=== PATIENT | female | born 1980 | race Caucasian/White ===

== ENCOUNTER → 2018-06-19 13:37 | Outpatient (REF) | payer MEDICAID, SELFPAY ==
[2018-06-23 14:07] LABS: Chlamydia Result Negative; GC Result Negative; Specimen Description VAGINAL
== END ==
LOC: LBN 13:37
PROVIDERS: PCP Family Medicine; Visit Provider Nurse Practitioner Family
DX: N76.0 Acute vaginitis (principal); Z11.3 Encounter for screening for infections with a predominantly sexual mode of transmission
CPT/HCPCS: 87491; 87591; 87480; 87510; 87660

== ENCOUNTER 2018-09-03 13:47 | Outpatient (REF) | payer MEDICAID, SELFPAY ==
[2018-09-04 13:56] LABS: Chlamydia Result Negative; Specimen Description URINE
[2018-09-04 18:19] LABS: GC Result Negative; Specimen Description URINE
== END 2018-09-03 14:07 ==
LOC: LBN 13:47
PROVIDERS: PCP Family Medicine
DX: N89.8 Other specified noninflammatory disorders of vagina (principal); Z11.3 Encounter for screening for infections with a predominantly sexual mode of transmission
CPT/HCPCS: 87491; 87591; 87480; 87510; 87660

== ENCOUNTER 2018-11-16 22:11 | Emergency (ER) | payer MEDICAID, SELFPAY ==
[2018-11-16 22:17] VITALS: BP 129/89; PULSE 77; RESP 18; TEMP 36.8; O2SAT 96
--- NOTE | 2018-11-16 22:33 | DI.RAD_ITS ---
SYMPTOMS/DIAGNOSIS: COUGH PA AND LATERAL CHEST: Comparison is made with March,. The heart size is at the upper limits of normal. The lungs are well inflated and clear. No infiltrate or effusion is seen. IMPRESSION: No acute abnormality.
--- NOTE | 2018-11-16 22:38 | ED.GENADUL_ITS ---
Discharge Plan Disposition Patient Disposition: HOME Condition: Stable Discharge Details Chief Complaint: RespSymp Clinical Impression: Cough Primary Care Provider: Debby Puri ED Provider: Raúl Caldwell Home Meds and New Rx's Prescriptions: New doxycycline hyclate 100 mg tablet 100 mg PO BID Qty: 14 RF: 0 Continued oxybutynin chloride 5 mg tablet extended release 24hr 5 mg PO DAILY Qty: 30 RF: 2 benzonatate [Tessalon Perles] 100 mg capsule 100 mg PO BID PRN (Reason: cough) Qty: 30 RF: 0 prednisone 20 mg tablet 40 mg PO DAILY 5 Days Qty: 10 RF: 0 benzonatate 100 mg capsule 100 - 200 mg PO TID PRN (Reason: cough) Qty: 60 RF: 0 Ventolin HFA 8 GM HFA aerosol inhaler 1 - 2 puff Inhalation QID PRNQty: 1 RF: 2 acetaminophen 500 MG tablet 1,000 mg PO QID PRNQty: 100 RF: 0 ibuprofen 600 MG tablet 400 - 600 mg PO Q6-Q8H MDD 3200 PRNQty: 40 RF: 0 topiramate [Topamax] 25 MG capsule, sprinkle 50 mg PO BID Qty: 360 RF: 3 lamotrigine 150 MG tablet 150 mg PO BID Qty: 60 RF: 5 fluoxetine 40 mg capsule 40 mg PO DAILY Qty: 90 RF: 2 bupropion HCl 150 mg tablet extended release 24 hr 150 mg PO DAILY Qty: 90 RF: 4 guanfacine 1 mg tablet 0.5 mg PO BID Qty: 30 RF: 6 Discharge Instructions Instructions: Acute Cough (ED) Additional Instructions: If cough continues follow up with your primary care provider within 1-2 weeks If you have worsening shortness of breath, severe weakness or new symptoms such as abdominal pain return to the emergency department Medical Decision Making 38 yo female with hx of asthma comes in with cough for 2 weeks and runny nose, no fevers. Denies chest pain or recent travel. She is speaking in full sentences and has clear lungs on exam so unlikely pna but will obtain xray to eval for infiltrate. Cough doesn't sound typical of pertussis. Does have runny nose so could have post nasal drip. suspect uri that is likely causing her symptoms pt remains HD stable. I am questioning atelectasis vs small rll infiltrate. will tx with doxycycline as she is stable for outpatient management, advised f/u with pcp if this continues as this still could be viral and return precautions given Differential Diagnosis uri, post nasal drip, pna HPI General Mode of arrival: ambulatory . Date/Time Provider Initiated Documentation: 11/16/18 22:23 . Limitations to Documentation: no limitations . Information obtained by: patient . History of Present Illness 38 year old F presents to the emergency department with the chief complaint of cough, described as moderate, with intensity rated at 4. Patient reports no radiation. Patient started experiencing this week(s) (2) and it has been intermittent. No relieving factors improve symptom(s), No exacerbating factors reported . Patient notes other (runny nose). Patient did receive the following treatments prior to arrival, none Related Data Home Medications Medication Instructions Recorded Confirmed Ventolin HFA 1 - 2 puff INHALATION QID PRN #1 04/11/16 11/16/18 inhaler acetaminophen 1,000 mg PO QID PRN #100 tab-cap 06/27/17 11/16/18 ibuprofen 400 - 600 mg PO Q6-Q8H PRN #40 03/10/18 11/16/18 tab-cap MDD 3200 topiramate [Topamax] 50 mg PO BID #360 cap.sprink 05/20/18 11/16/18 lamotrigine 150 mg PO BID #60 tab-cap 05/30/18 11/16/18 fluoxetine 40 mg capsule 40 mg PO DAILY #90 cap 07/25/18 11/16/18 bupropion HCl XL 150 mg 24 hr 150 mg PO DAILY #90 tab-cap 10/13/18 11/16/18 tablet, extended release guanfacine 1 mg tablet 0.5 mg PO BID #30 tab-cap 10/13/18 11/16/18 benzonatate 100 mg capsule 100 mg PO BID PRN #30 cap 10/15/18 11/16/18 oxybutynin chloride ER 5 mg 5 mg PO DAILY #30 tab 10/15/18 11/16/18 tablet,extended release 24 hr benzonatate 100 mg capsule 100 - 200 mg PO TID PRN #60 cap 11/13/18 11/16/18 prednisone 20 mg tablet 40 mg PO DAILY 5 Days #10 tab 11/13/18 11/16/18 doxycycline hyclate 100 mg PO BID #14 tab 11/16/18 Previous Rx's Medication Instructions Recorded topiramate [Topamax] 50 mg PO BID #360 cap.sprink 05/20/18 lamotrigine 150 mg PO BID #60 tab-cap 05/30/18 fluoxetine 40 mg capsule 40 mg PO DAILY #90 cap 07/25/18 bupropion HCl XL 150 mg 24 hr 150 mg PO DAILY #90 tab-cap 10/13/18 tablet, extended release guanfacine 1 mg tablet 0.5 mg PO BID #30 tab-cap 10/13/18 benzonatate 100 mg capsule 100 mg PO BID PRN #30 cap 10/15/18 oxybutynin chloride ER 5 mg 5 mg PO DAILY #30 tab 10/15/18 tablet,extended release 24 hr benzonatate 100 mg capsule 100 - 200 mg PO TID PRN #60 cap 11/13/18 prednisone 20 mg tablet 40 mg PO DAILY 5 Days #10 tab 11/13/18 doxycycline hyclate 100 mg PO BID #14 tab 11/16/18 Allergies Allergy/AdvReac Type Severity Reaction Status Date / Time No Known Drug Allergies Allergy Verified 11/16/18 22:23 General Stated Complaint: RespSymp JULIANN: 4 Review of Systems Review of Systems All systems reviewed & are unremarkable except as noted in HPI and below Constitutional Denies weakness Cardiovascular Denies chest pain Gastrointestinal Denies abdominal pain, Denies nausea and Denies vomiting Musculoskeletal Denies joint swelling Integumentary/Breasts Denies rash Neurologic Denies weakness Endocrine Denies heat intolerance [facility] Medical History Endometriosis Menorrhagia Mental disorder Surgical History Appendectomy Cholecystectomy Diagnostic Laproscopy (10/21/14) Ligation of fallopian tube Open Carpal Tunnel release Trigger Finger release Vaginal hysterectomy (05/12/15) Family History Mother Depression Emphysema lung Father Depression Heart disease Brother No problems noted. Grandfather No problems noted. Grandfather Parkinson's disease Grandmother No problems noted. Grandmother Heart disease Stroke Son No problems noted. Son Depression Son Heart disease Daughter Depression Maternal Uncle Diabetes Social History Smoking/Tobacco Use Status: Never Exam Const General: no acute distress Orientation: alert HENMT Head: normal to inspection Ears: external ears normal General nose exam: external nose normal Mouth: moist mucous membranes Eyes General: appearance normal, both eyes and all related structures Neck Neck: normal visual inspection Resp Effort & Inspection: normal respiratory effort and able to speak in complete sentences Cardio Rate: regular rate Skin General skin exam: no rashes or lesions noted Neuro General: alert and oriented x3 Extrem General: normal to inspection Psych Mental Status: mental status grossly normal Course Vital Signs Temperature 36.8 C 11/16/18 22:17 Pulse 77 11/16/18 22:17 Respiratory Rate 18 11/16/18 22:17 Blood Pressure 129/89 11/16/18 22:17 Pulse Oximetry 96 11/16/18 22:17 Temperature 36.8 C 11/16/18 22:17 Temperature Source Temporal Artery Scan 11/16/18 22:17 Pulse 77 11/16/18 22:17 Respiratory Rate 18 11/16/18 22:17 Respiratory Effort 11/16/18 22:21 Respiratory Depth Normal 11/16/18 22:21 Blood Pressure 129/89 11/16/18 22:17 Pulse Oximetry 96 11/16/18 22:17 Oxygen Delivery Method Room Air 11/16/18 22:17 Oxygen Flow Rate 0 11/16/18 22:17 Pain Level 7 11/16/18 22:17
--- NOTE | 2018-11-16 23:03 | DI.VRAD_ITS ---
EXAM: XR Chest, 2 Views EXAM DATE/TIME: 11/16/2018 10:47 PM CLINICAL HISTORY: 38 years old, female; Signs and symptoms; Cough TECHNIQUE: XR of the chest, 2 views. COMPARISON: CR CHEST 2 VIEWS PA,LAT 03/21/2018 11:53 PM FINDINGS: Lungs: Unremarkable. No consolidation. Pleural space: Unremarkable. No evidence of pneumothorax. Heart/Mediastinum: Unremarkable. Heart size within normal limits for technique. Bones/joints: Unremarkable. IMPRESSION: No acute findings. Dictated and Authenticated by: Corey Irvin MD. Ordering:FINESSE Olsen MD
[2018-11-16] MEDS: Doxycycline Hyclate 100 MG CAP PO (23:06)
== END 2018-11-16 23:12 | disposition home or self-care (01) ==
PROVIDERS: Emergency Provider Emergency Medicine; PCP Family Medicine
DX: R05 Cough (principal)
CPT/HCPCS: 99283; 71046

== ENCOUNTER 2018-11-21 10:48 | Outpatient (REF) | payer MEDICAID, SELFPAY | END 2018-11-21 11:08 | LOC: LBN 10:48 | PROVIDERS: PCP Family Medicine; Visit Provider Nurse Practitioner Family | DX: R09.89 Other specified symptoms and signs involving the circulatory and respiratory systems (principal) | CPT/HCPCS: 87449 ==

== ENCOUNTER 2018-12-04 14:45 | Outpatient (REF) | payer MEDICAID, SELFPAY ==
[2018-12-05 14:39] LABS: Chlamydia Result Negative; GC Result Negative; Specimen Description CERVIX
== END 2018-12-04 15:05 ==
LOC: LBN 14:45
PROVIDERS: PCP Family Medicine; Visit Provider Nurse Practitioner Women's Health
DX: Z11.3 Encounter for screening for infections with a predominantly sexual mode of transmission (principal)
CPT/HCPCS: 87491; 87591

== ENCOUNTER 2018-12-09 01:32 | Outpatient (CLI) | payer MEDICAID, SELFPAY ==
--- NOTE | 2018-12-09 08:00 | DI.US_ITS ---
SYMPTOM/DIAGNOSIS: LT PELVIC PAIN, S/P HYST, R10.2 PELVIC ULTRASOUND: Transabdominal and transvaginal examination was performed. There are no priors for comparison. The patient is status post hysterectomy. The right ovary measures 2.5 by 1.9 by 1.6 cm. Small follicular cysts are present. There is normal blood flow. No evidence of torsion. The left ovary measures 3 by 2.3 by 1.5 cm. There is normal blood flow. No evidence of torsion. There is a 1.8 cm. simple cyst present. The kidneys show no evidence of hydronephrosis. No free pelvic fluid is identified. IMPRESSION: Status post hysterectomy. Otherwise unremarkable pelvic ultrasound.
== END 2018-12-09 01:52 ==
PROVIDERS: PCP Family Medicine; Visit Provider Nurse Practitioner Women's Health
DX: R10.2 Pelvic and perineal pain (principal); Z90.710 Acquired absence of both cervix and uterus
CPT/HCPCS: 76830; 76856

== ENCOUNTER 2019-02-13 12:47 | Emergency (ER) | payer MEDICAID, SELFPAY ==
[2019-02-13 12:52] VITALS: BP 128/76; PULSE 91; RESP 16; TEMP 36.8; O2SAT 97
[2019-02-13] MEDS: Ondansetron O.D.T. 4 MG TABEF PO (13:10)
[2019-02-13] MEDS: Normal Saline 1,000 ML 1000 ML IV ×2 (13:30→13:58)
--- NOTE | 2019-02-13 13:43 | ED.GENADUL_ITS ---
Discharge Plan Disposition Patient Disposition: HOME Condition: Good Discharge Details Chief Complaint: Nausea/Vomit/Diar Clinical Impression: Gastroenteritis, Vomiting Primary Care Provider: Debby Puri ED Provider: Fernando Carpenter Home Meds and New Rx's Prescriptions: New ondansetron HCl [Zofran] 4 mg tablet 4 mg PO TID PRN (Reason: nausea and vomiting) 5 Days Qty: 10 RF: 0 No Action baclofen 5 mg tablet 5 mg PO QHS PRNRF: 0 oxybutynin chloride 5 mg tablet extended release 24hr 5 mg PO DAILY Qty: 30 RF: 2 meloxicam 15 mg tablet 15 mg PO DAILY Qty: 30 RF: 2 benzonatate 100 mg capsule 100 - 200 mg PO TID PRN (Reason: cough) Qty: 60 RF: 0 ondansetron HCl 8 mg tablet 8 mg PO TID PRN (Reason: nausea and vomiting) Qty: 20 RF: 0 acetaminophen 500 MG tablet 1,000 mg PO QID PRNQty: 100 RF: 0 ibuprofen 600 MG tablet 400 - 600 mg PO Q6-Q8H MDD 3200 PRNQty: 40 RF: 0 Hold Instructions: None topiramate [Topamax] 25 MG capsule, sprinkle 50 mg PO BID Qty: 360 RF: 3 bupropion HCl 150 mg tablet extended release 24 hr 150 mg PO DAILY Qty: 90 RF: 4 guanfacine 1 mg tablet 0.5 mg PO BID Qty: 30 RF: 6 albuterol sulfate [Ventolin HFA] 90 mcg/actuation HFA aerosol inhaler 1 - 2 puff Inhalation QID PRN (Reason: bronchospasm) Qty: 1 RF: 4 lamotrigine 150 mg tablet 150 mg PO BID Qty: 60 RF: 5 fluoxetine 20 mg capsule 60 mg PO DAILY Qty: 90 RF: 3 Discharge Instructions Instructions: Gastroenteritis (ED) Additional Instructions: Please drink 10-12 cups of water per day. Please take the Zofran as needed for nausea. If you notice any worsening of your symptoms, or any new symptoms such as vomiting, diarrhea, fever, chills, shortness of breath, chest pain, numbness, weakness, or fainting , please return immediately to the emergency department for reevaluation. Please follow up with your primary care provider as soon as possible for reassessment and reevaluation. As always, it was a pleasure participating in your medical care today. Referrals: Debby Puri MD [Primary Care Provider] - Medical Decision Making This is a pleasant 38-year-old female with a past medical history of appendectomy, cholecystectomy, and hysterectomy. Patient presents for less than 12 hours of nausea, vomiting and diarrhea. The patient states that her had similar symptoms and is now starting to get better. Patient denies any red flags of recent foreign travel, antibiotics, IV or illicit drug use, recent surgeries, or significant abdominal pain. Physical exam demonstrates a relatively nontender abdomen, no signs of an acute abdominal surgical pathology clinically. Vital signs are notably stable and reassuring. Patient's mucous membranes are notably dry. We did discuss with the patient oral rehydration and oral Zofran, the patient is specifically requesting an IV for IV hydration. IV was placed, 2 L of normal saline were given, laboratory workup is notably benign. Patient is feeling much better. Patient has been given Zofran and tolerates p.o. well. We will discharge her home with a prescription for Zofran. Signs and symptoms at this time are clinically consistent with a most likely viral gastroenteritis. Discussed red flags which to return the patient understands as well as the importance of oral intake. I have extensively reviewed the treatment plan and discharge instructions with the patient. I have addressed all patient concerns at this time. The patient was made aware of what symptoms to monitor for that would warrant a return to the emergency department. Discussed the plan with the patient, they demonstrate verbal understanding and agreement with our assessment and plan at this time. HPI General Date/Time Provider Initiated Documentation: 02/13/19 12:58 . HPI Narrative: This is a 38-year-old female with past medical history of endometriosis, appendectomy, cholecystectomy, hysterectomy who presents today for 12 hours of nausea vomiting and diarrhea. Symptoms began at 10 PM last night, last episode of vomiting was at 1 AM. Vomiting is nonbilious, no hematochezia, melena, acholic stool, or hematemesis. Last bowel movement was a few hours ago. Patient does admit to mild cramps, but denies any significant abdominal pain. She has been able to drink small amounts, but this is limited secondary to nausea. Her has identical symptoms at home as well. Patient is on disability and has no sick coworkers. Patient denies any other complaints at this time. No other modifying factors. She denies any recent alcohol use. She denies a foreign travel or recent antibiotic use. Related Data Home Medications Medication Instructions Recorded Confirmed acetaminophen 1,000 mg PO QID PRN #100 tab-cap 06/27/17 02/13/19 ibuprofen 400 - 600 mg PO Q6-Q8H PRN #40 03/10/18 02/13/19 tab-cap MDD 3200 topiramate [Topamax] 50 mg PO BID #360 cap.sprink 05/20/18 02/13/19 bupropion HCl XL 150 mg 24 hr 150 mg PO DAILY #90 tab-cap 10/13/18 02/13/19 tablet, extended release guanfacine 1 mg tablet 0.5 mg PO BID #30 tab-cap 10/13/18 02/13/19 benzonatate 100 mg capsule 100 - 200 mg PO TID PRN #60 cap 11/13/18 02/13/19 albuterol sulfate HFA 90 1 - 2 puff INHALATION QID PRN #1 11/21/18 02/13/19 mcg/actuation aerosol inhaler inhaler ondansetron HCl 8 mg tablet 8 mg PO TID PRN #20 tab 11/21/18 02/13/19 lamotrigine 150 mg tablet 150 mg PO BID #60 tab-cap 12/04/18 02/13/19 meloxicam 15 mg tablet 15 mg PO DAILY #30 tab 12/18/18 02/13/19 baclofen 5 mg tablet 5 mg PO QHS PRN tab 01/13/19 02/13/19 fluoxetine 20 mg capsule 60 mg PO DAILY #90 cap 01/13/19 02/13/19 oxybutynin chloride ER 5 mg 5 mg PO DAILY #30 tab 01/13/19 02/13/19 tablet,extended release 24 hr ondansetron HCl [Zofran] 4 mg PO TID PRN 5 Days #10 tab 02/13/19 Previous Rx's Medication Instructions Recorded topiramate [Topamax] 50 mg PO BID #360 cap.sprink 05/20/18 bupropion HCl XL 150 mg 24 hr 150 mg PO DAILY #90 tab-cap 10/13/18 tablet, extended release guanfacine 1 mg tablet 0.5 mg PO BID #30 tab-cap 10/13/18 benzonatate 100 mg capsule 100 - 200 mg PO TID PRN #60 cap 11/13/18 albuterol sulfate HFA 90 1 - 2 puff INHALATION QID PRN #1 11/21/18 mcg/actuation aerosol inhaler inhaler ondansetron HCl 8 mg tablet 8 mg PO TID PRN #20 tab 11/21/18 lamotrigine 150 mg tablet 150 mg PO BID #60 tab-cap 12/04/18 meloxicam 15 mg tablet 15 mg PO DAILY #30 tab 12/18/18 fluoxetine 20 mg capsule 60 mg PO DAILY #90 cap 01/13/19 oxybutynin chloride ER 5 mg 5 mg PO DAILY #30 tab 01/13/19 tablet,extended release 24 hr ondansetron HCl [Zofran] 4 mg PO TID PRN 5 Days #10 tab 02/13/19 Allergies Allergy/AdvReac Type Severity Reaction Status Date / Time No Known Drug Allergies Allergy Verified 02/13/19 12:58 General Stated Complaint: Nausea/Vomit/Diar JULIANN: 3 Review of Systems Review of Systems All systems reviewed & are unremarkable except as noted in HPI and below PFSH Social History Smoking/Tobacco Use Status: Never Alcohol Intake: never Drug use: Never Substance use type: does not use Do you feel safe at home: Yes Do you feel safe in your relationship?: Yes Female Reproductive History Menstrual control method: permanent sterilization (hysterectomy for endometriosis) History History 4 Para 4 Hx # Term Pregnancies Multiple births Hx # Pregnancies Ectopic pregnancies AB induced Hx Number of Living Children AB spontaneous Exam Narrative Exam Narrative: 1.Const: Well-nourished, Well-developed, appearing stated age 2.Eyes: PERRL, no conjunctival injection, and symmetrical lids. 3.ENT: Atraumatic external nose and ears. Notably dry MM. Neck: Symmetric, tr achea midline, No thyromegaly. 4.CVS: +S1/S2, No murmurs or gallops. Peripheral pulses 2+ and equal in all extremities. Brisk capillary refill in all extremities. 5.RESP: Unlabored respiratory effort. Clear to auscultation bilaterally. No wheezes rales or rhonchi 6.GI: Soft, Nontender/Nondistended, No hepatosplenomegaly. No guarding or rebound. No pain at McBurney's point, negative Chase sign, no signs of an acute abdomen. 7.MSK: Normocephalic/Atraumatic, Extremities w/o deformity or ttp No cyanosis or clubbing, Normal movement of all extremities 8.Skin: Warm, Dry. No rashes or lesions. 9.Neuro: reducing system operator II-XII grossly intact. Sensation grossly intact, no focal neurologic deficits. 10.Psych: (AAO) x3. Appropriate mood and affect Course Vital Signs Temperature 36.8 C 02/13/19 12:52 Pulse 91 H 02/13/19 12:52 Respiratory Rate 16 02/13/19 12:52 Blood Pressure 128/76 02/13/19 12:52 Pulse Oximetry 97 02/13/19 12:52 Temperature 36.8 C 02/13/19 12:52 Temperature Source Temporal Artery Scan 02/13/19 12:52 Pulse 91 H 02/13/19 12:52 Respiratory Rate 16 02/13/19 12:52 Respiratory Effort Non-Labored 02/13/19 12:56 Blood Pressure 128/76 02/13/19 12:52 Blood Pressure Position Sitting 02/13/19 12:52 Pulse Oximetry 97 02/13/19 12:52 Oxygen Delivery Method Room Air 02/13/19 12:52 Oxygen Flow Rate 0 02/13/19 12:52 Pain Level 5 02/13/19 12:52
[2019-02-13 13:46] LABS: Abs Immature Grans 0.02 k/cumm (0.0-0.09); Absolute Basophil Count 0.01 k/cumm (0.0-0.2); Absolute Eosinophil Count 0.19 k/cumm (0.0-0.7); Absolute Lymphocyte Count 1.22 k/cumm (1.2-3.4); Absolute Monocyte Count 0.28 k/cumm (0.11-0.7); Absolute Neutrophil Count 5.59 k/cumm (1.2-6.7); Basophils % 0.1; Eosinophils % 2.6; HCT 38.3 % (36.0-46.0); HGB 13.3 g/dL (12.0-15.5); Immature Grans % 0.3; Lymphocytes % 16.7; Mean Corp. HGB Concentration 34.7 g/dL (32.0-36.0); Mean Corpuscular Hemoglobin 30.2 pg (27.0-33.0); Mean Platelet Volume 9.3 fL (8.0-11.0); Monocytes % 3.8; Neutrophils % 76.5; Platelet Count 349 x1000/uL (130-400); White Blood Cell Count 7.31 k/cumm (4.4-10.8)
[2019-02-13 13:56] LABS: ALT 20 U/L (12-78); AST 18 U/L (15-37); Alkaline Phosphatase 117 U/L (46-116); Anion Gap 12.4 mmol/L (3-11); BUN 15 mg/dL (7-18); Bilirubin, Total 0.6 mg/dL (0.2-1.0); CO2 22.6 mmol/L (21.0-32.0); CREATININE 0.81 mg/dL (0.55-1.02); Calcium 8.4 mg/dL (8.5-10.1); Chloride 103 mmol/L (98-107); Glucose 78 mg/dL (70-100); Lipase 165 U/L (73-393); Potassium 3.6 mmol/L (3.5-5.1); Sodium 138 mmol/L (136-145); Total Protein 7.6 g/dL (6.4-8.2)
[2019-02-13 14:43] VITALS: BP 109/66; PULSE 82; RESP 18; TEMP 36.7; O2SAT 98
== END 2019-02-13 14:40 | disposition home or self-care (01) ==
PROVIDERS: Emergency Provider Student in an Organized Health Care Education/Training Program; PCP Family Medicine
DX: K52.9 Noninfective gastroenteritis and colitis, unspecified (principal)
CPT/HCPCS: 80053; 83690; 96360; 99283; 85025

== ENCOUNTER 2019-09-29 13:15 | Outpatient (CLI) | payer MEDICAID, SELFPAY ==
--- NOTE | 2019-09-29 12:08 | DI.RAD_ITS ---
EXAM: XR HEEL RT OS CALCIS INDICATION: PAIN IN RT HEEL, M79.671, RT FOOT PAIN. COMPARISON: No exams were available for comparison TECHNIQUE: 2D digital imaging was performed. FINDINGS: There is a small spur at the plantar surface of the calcaneus. Bones are normally mineralized. The joint spaces are well maintained. The soft tissues are unremarkable. IMPRESSION: Small plantar calcaneal spur.
== END 2019-09-29 13:35 ==
PROVIDERS: PCP Family Medicine; Visit Provider Podiatrist Foot & Ankle Surgery
DX: M79.671 Pain in right foot (principal); M77.31 Calcaneal spur, right foot
CPT/HCPCS: 73650

== ENCOUNTER 2019-11-12 00:17 | Outpatient (CLI) | payer MEDICAID, SELFPAY ==
--- NOTE | 2019-11-12 08:45 | DI.MRI_ITS ---
EXAM: MR LOWER JOINT RT WO CLINICAL HISTORY: PAIN IN RT FOOT/HEEL PAIN. TECHNIQUE: Multiplanar multisequence MRI was performed. COMPARISON: XR HEEL RT OS CALCIS from 09/29/2019 FINDINGS: Anterior ankle tendons: Unremarkable. Medial ankle tendons: Unremarkable. Peroneus brevis and longus tendons: Unremarkable. Achilles tendon: Unremarkable. Plantar fascia: Thickening and hyperintense signal within the plantar fascia at its attachment site o nto the calcaneus. Tibial fibular ligaments: Unremarkable. Talofibular and calcaneofibular ligaments: Unremarkable. Deltoid ligaments: Unremarkable. Bones: Subchondral cysts are seen at the posterior calcaneus. Nonspecific edema is seen in the media l cuboid. No findings to suggest an occult fracture or avascular necrosis. Mild hyperintense signal seen in the inferior calcaneus at the insertion site of the plantar fascia. Soft tissues: No focal fluid collection or soft tissue mass. Ankle joint: Small joint effusion otherwise unremarkable. IMPRESSION: Findings suggestive of plantar fasciitis.
== END 2019-11-12 00:37 ==
PROVIDERS: PCP Family Medicine; Visit Provider Podiatrist Foot & Ankle Surgery
DX: M79.671 Pain in right foot (principal); M25.471 Effusion, right ankle; M72.2 Plantar fascial fibromatosis
CPT/HCPCS: 73721

== ENCOUNTER 2020-01-26 11:18 | Outpatient (CLI) | payer MEDICAID, SELFPAY ==
[2020-01-26 12:49] LABS: ALT 22 U/L (14-59); AST 14 U/L (15-37); Albumin 4.4 g/dL (3.4-5.0); Alkaline Phosphatase 104 U/L (46-116); Anion Gap 9.9 mmol/L (3-11); BUN 16 mg/dL (7-18); Bilirubin, Total 0.4 mg/dL (0.2-1.0); CO2 26.1 mmol/L (21.0-32.0); CREATININE 0.87 mg/dL (0.55-1.02); Calcium 8.7 mg/dL (8.5-10.1); Chloride 104 mmol/L (98-107); Glucose 81 mg/dL (74-106); Potassium 4.5 mmol/L (3.5-5.1); Sodium 140 mmol/L (136-145); Total Protein 7.7 g/dL (6.4-8.2)
== END 2020-01-26 11:38 ==
PROVIDERS: PCP Family Medicine; Visit Provider Family Medicine
DX: F39 Unspecified mood [affective] disorder (principal)
CPT/HCPCS: 36415; 80053

== ENCOUNTER 2020-05-17 02:34 | Outpatient (CLI) | payer MEDICAID, SELFPAY ==
[2020-05-17 14:58] LABS: TSH 1.11 uIU/mL (0.36-3.74)
== END 2020-05-17 02:54 ==
PROVIDERS: PCP Family Medicine; Visit Provider Family Medicine
DX: G62.9 Polyneuropathy, unspecified (principal)
CPT/HCPCS: 36415; 84443

== ENCOUNTER 2020-07-29 01:44 | Outpatient (CLI) | payer MEDICAID, SELFPAY ==
[2020-07-30 18:28] LABS: COVID-19 RT-PCR Result NEGATIVE (Negative)
== END 2020-07-29 02:04 ==
PROVIDERS: PCP Family Medicine; Visit Provider Orthopaedic Surgery
DX: Z11.59 Encounter for screening for other viral diseases (principal); Z01.818 Encounter for other preprocedural examination
CPT/HCPCS: U0003

== ENCOUNTER 2020-08-01 08:04 | Day surgery (SDC) | payer MEDICAID, SELFPAY ==
[2020-08-01 07:16] VITALS: BP 116/67; PULSE 90; RESP 18; TEMP 36.5; O2SAT 97
[2020-08-01] MEDS: Lactated Ringers 1,000 ML 80 ML IV (08:37)
[2020-08-01] MEDS: ceFAZolin 2 GM/50 ML BAG IVPB (10:05)
--- NOTE | 2020-08-01 10:57 | PDOC.DSDIS_ITS ---
Discharge Plan Disposition Patient Disposition: HOME Condition: Good Discharge Details Attending Provider: Landry Vega Primary Care Provider: Debby Puri Home Meds and New Rx's Prescriptions: Continued oxybutynin chloride 10 mg tablet extended release 24hr 10 mg PO DAILY Qty: 30 RF: 4 albuterol sulfate [Ventolin HFA] 90 mcg/actuation HFA aerosol inhaler 1 - 2 puff Inhalation QID PRN (Reason: bronchospasm) Qty: 1 RF: 6 topiramate 50 mg tablet 50 mg PO BID Qty: 60 RF: 3 ondansetron HCl 8 mg tablet 8 mg PO TID PRN (Reason: nausea and vomiting) Qty: 20 RF: 0 trazodone 50 mg tablet 50 mg PO QHS Qty: 90 RF: 0 cyclobenzaprine 5 mg tablet 5 mg PO TID PRN (Reason: back pain) Qty: 60 RF: 1 fluoxetine 20 mg capsule 60 mg PO DAILY Qty: 90 RF: 12 lamotrigine 150 mg tablet 150 mg PO BID Qty: 60 RF: 6 guanfacine 1 mg tablet 0.5 mg PO BID Qty: 30 RF: 6 Discharge Instructions Additional Instructions: Elevate R hand above heart level as much as possible for next 48 hours. Wiggle fingers R hand 10 times/hour when awake to prevent swelling. Keep dressings and splint dry until return.(cover with plastic bag sealed with large rubber band below elbow to shower) Return to 's office in 2 weeks. Take ibuprofen or tylenol for mild pain. Take hydrocodone for breakthru pain, if needed. Use R hand as much as your discomfort allows. Referrals: Landry Vega MD [ [facility] STAFF PHYSICIAN] - (f/u in 2 weeks.) Equipment/Supplies: Splint Activity:: Activity as Tolerated Remove Dressings/Wound Care:: Do Not Remove Shower/Bathe:: Cover Diet:: As Tolerated Discharge Orders Discharge Orders: Discharge Order (Routine); Ordered 08/01/20 Ordered By: Landry Vega DS: Diagnosis Discharge Diagnosis (1) Carpal tunnel syndrome on right: Status: Acute
[2020-08-01 11:49] VITALS: BP 113/56; PULSE 89; RESP 20; TEMP 36.7; O2SAT 97
--- NOTE | 2020-08-01 14:21 | W.PM.OP ---
Date of service: 08/01/20 Time of Service: 10:00 Operative Note Operative Note DATE OF PROCEDURE: 08/01/20 PRE-OP DIAGNOSIS: Carpal tunnel syndrome right recurrent. POST-OP DIAGNOSIS: same PROCEDURE: Open carpal tunnel release right with external neural lysis of the median nerve. ANESTHESIA: regional PATHOLOGY: none sent COMPLICATIONS: None Patient was transported to: PACU Patient's condition: stable Indications: This is a 40-year-old white female who underwent an open carpal tunnel release in 2012. She said she received 1 year of relief of symptoms from the open carpal tunnel release. Her carpal tunnel syndrome symptoms have recurred and have gradually gotten worse. She has continued numbness in the thumb index and middle fingertips aggravated by activities. Repeat nerve conduction study shows that she had what was termed mild carpal tunnel syndrome on the right. It was felt that her repeat carpal tunnel symptoms were secondary to scarring around the nerve. External neural lysis of the median nerve with open carpal tunnel release is recommended to alleviate his symptoms. Risk complication procedure explained patient detail preop. Procedure Description: Patient was taken the operating room on 08/01/2020 where she is placed supine operative table. A IV regional anesthetic was administered to the right upper extremity. Once good anesthesia was obtained the right hand wrist and forearm were prepped and draped free in usual sterile fashion. An incision was made first utilizing the old scar on the radial base of the hyperthenar eminence. I extended the incision distal from the scar to beyond the distal edge of the volar carpal ligament. I carried the incision proximally and a zigzag fashion across the wrist crease. I kept the incision just ulnar to the palmaris longus tendon that was palpable. This was carried down to the forearm fascia. Carefully protecting the nerve I then continued the fascia releasing the release of the volar carpal ligament to the distal edge of the ligament. There was scarring around the nerve that caused some stenosis of the nerve and some mild bluish discoloration. Using Littler scissors I performed a an external neural lysis of the median nerve completely alleviate any scarring. There was not any excessive synovitis noted in the carpal tunnel. This point the wound was irrigated with saline solution. A median nerve block was performed using 0.5% Marcaine with epinephrine solution. The wound margins were infiltrated 0.5% Marcaine with epinephrine solution. Skin and subcu were approximated with interrupted 4 nylon sutures. Incision was dressed with Xeroform gauze sterile gauze 4 x 4's wrapped with a Kerlix bandage then wrapped with a 3 inch Rahul bandage. She was then placed in a commercial cock-up wrist splint. Patient is IV regional anesthesia was reversed without complication she was discharged to recovery room in good condition. Patient was later discharged home from day surgery unit when fully recovered from her IV regional anesthesia. She is given instructions to try to elevate her right hand above heart level as much possible next 48 hours. She is encouraged to wiggle her fingers 10 times an hour while awake to prevent swelling. She is to keep her dressings and splint dry and intact until she follows up in Dr. Vega's office in 2 weeks. She will take ibuprofen or Tylenol for mild pain. She is given a prescription for breakthrough pain of hydrocodone with APAP 03/20/2025 1 p.o. every 6 hours if needed.
== END 2020-08-01 12:07 | disposition home or self-care (01) ==
PROVIDERS: PCP Family Medicine; Visit Provider Orthopaedic Surgery
PROC: (CPT 64721; principal; 2020-08-01 09:30)
DX: G56.01 Carpal tunnel syndrome, right upper limb (principal)
CPT/HCPCS: 64721; J0690; J1100; J1885; J2001; J2405; L3908

== ENCOUNTER 2021-02-15 03:28 | Outpatient (CLI) | payer MEDICAID, SELFPAY ==
[2021-02-15 15:19] LABS: ALT 29 U/L (14-59); AST 15 U/L (15-37); Albumin 4.1 g/dL (3.4-5.0); Alkaline Phosphatase 148 U/L (46-116); Anion Gap 10.4 mmol/L (3-11); BUN 12 mg/dL (7-18); Bilirubin, Total 0.2 mg/dL (0.2-1.0); CO2 25.6 mmol/L (21.0-32.0); CREATININE 0.9 mg/dL (0.55-1.02); Calcium 8.8 mg/dL (8.5-10.1); Chloride 103 mmol/L (98-107); Glucose 92 mg/dL (74-106); Sodium 139 mmol/L (136-145); Total Protein 7.6 g/dL (6.4-8.2)
[2021-02-16 04:34] LABS: Vitamin D 25 Total 17.4 ng/mL (30-100)
== END 2021-02-15 03:29 | disposition home or self-care (01) ==
LOC: LBO 03:28
PROVIDERS: PCP Family Medicine; Visit Provider Family Medicine
DX: R51.9 Headache, unspecified (principal); E55.9 Vitamin D deficiency, unspecified; Z86.39 Personal history of other endocrine, nutritional and metabolic disease
CPT/HCPCS: 36415; 80053; 82306

== ENCOUNTER 2021-12-28 02:51 | Outpatient (CLI) | payer MEDICAID, SELFPAY ==
[2021-12-28 09:27] LABS: HCT 37.5 % (36.0-46.0); HGB 12.4 g/dL (11.2-15.7); MCH 29.2 pg (27.0-33.0); MCHC 33.1 % (32.0-36.0); MCV 88.2 fL (80-95); MPV 8.8 fL (8.0-11.0); Platelet Count 377 10^3/uL (130-400); RBC 4.25 10^6/uL (3.93-5.22); RDW 13.1 % (11.7-14.6); RDW-SD 42.5 fL; WBC 8.48 10^3/uL (4.4-10.8)
[2021-12-28 10:52] LABS: Vitamin D 25 Total 17.5 ng/mL (30-100)
[2021-12-28 10:56] LABS: ALT 29 U/L (14-59); AST 18 U/L (15-37); Alkaline Phosphatase 100 U/L (46-116); Anion Gap 9.5 mmol/L (3-11); BUN 20 mg/dL (7-18); Bilirubin, Total 0.4 mg/dL (0.2-1.0); CO2 26.5 mmol/L (21.0-32.0); CREATININE 0.8 mg/dL (0.55-1.02); Calcium 8.8 mg/dL (8.5-10.1); Calculated LDL 106 mg/dL (<100); Chloride 103 mmol/L (98-107); Cholesterol 181 mg/dL (<200); Glucose 82 mg/dL (74-106); HDL Cholesterol 59 mg/dL (40-60); Potassium 4.3 mmol/L (3.5-5.1); Sodium 139 mmol/L (136-145); TSH (W/Ref FT4) 0.78 uIU/mL (0.36-3.74); Total Protein 7.1 g/dL (6.4-8.2); Triglyceride 82 mg/dL (<150); Vitamin B12 261 pg/mL (193-986)
[2021-12-29 09:51] LABS: HIV-1/2 Ag & Ab Screen Negative (Negative)
[2021-12-29 09:56] LABS: Hepatitis C Ab w Rflx HCV PCR Negative (Negative)
== END 2021-12-28 02:52 | disposition home or self-care (01) ==
LOC: LBO 02:51
PROVIDERS: PCP Family Medicine; Visit Provider Family Medicine
DX: E55.9 Vitamin D deficiency, unspecified (principal); F95.9 Tic disorder, unspecified; Z11.59 Encounter for screening for other viral diseases; Z13.6 Encounter for screening for cardiovascular disorders; I10 Essential (primary) hypertension; Z11.4 Encounter for screening for human immunodeficiency virus [HIV]
CPT/HCPCS: 36415; 80053; 80061; 82306; 85027; 86803; 87389; 82607; 84443

== ENCOUNTER 2022-01-08 16:06 | Outpatient (REF) | payer MEDICAID, SELFPAY ==
[2022-01-10 12:58] LABS: Helicobacter pylori Ag, Feces Negative (Negative)
== END 2022-01-08 16:07 | disposition home or self-care (01) ==
LOC: LBN 16:06
PROVIDERS: PCP Family Medicine; Visit Provider Family Medicine
DX: E66.9 Obesity, unspecified (principal)
CPT/HCPCS: 87338

== ENCOUNTER 2022-02-05 02:12 | Outpatient (CLI) | payer MEDICAID, SELFPAY ==
--- NOTE | 2022-02-05 07:00 | DI.MAMMO_ITS ---
Exam(s) MAMMO SCREENING EXAM: MAMMO SCREENING CLINICAL HISTORY: screening,z12.39. TECHNIQUE: Bilateral full field digital CC and MLO mammographic images were obtained with 3D tomosyn thesis and utilizing computer aided detection (CAD). COMPARISON: None. This is a baseline mammogram on this 41-year-old patient. FINDINGS: No CAD designations There are no new spiculated masses nor malignant appearing microcalcification groups. There is no significant architectural distortion nor skin thickening-retraction. IMPRESSION: No radiographic evidence of malignancy. BI-RADS Category 1 - Negative Breast Density - Category B - Scattered areas of fibroglandular density Breast density Category C or D implies that the patient has dense breast tissue. Dense breast tissue can make it harder to find cancer on a mammogram. Dense breast tissue is also associated with an incr eased risk of breast cancer. This information about the result of the mammogram report was provided to the patient to raise their awareness. Use this report when you speak with the patient about their risks for breast cancer, which includes their family history. At that time, you may recommend additional screening tests (Ultrasoun d or MRI) as these tests may add significant information. A negative radiographic report should not delay biopsy if a dominant or clinically suspicious mass is present. Up to ten percent of cancers are not identified on mammography. A negative report may reinforce clinical impression. Adenosis and dense breasts may obscure an underlying neoplasm. False positive reports average 6 to 10%. Patient will receive a letter notifying them of these results.
== END 2022-02-05 02:32 ==
PROVIDERS: PCP Family Medicine; Visit Provider Family Medicine
DX: Z12.31 Encounter for screening mammogram for malignant neoplasm of breast (principal)
CPT/HCPCS: 77063; 77067

== ENCOUNTER 2022-06-28 11:23 | Emergency (ER) | payer MEDICAID, SELFPAY ==
[2022-06-28] VITALS (10 sets, daily range): BP systolic 101–120; BP diastolic 45–65; PULSE 65–71; RESP 16; TEMP 36.5; O2SAT 98–100
--- NOTE | 2022-06-28 12:03 | ED.GENADUL_ITS ---
Discharge Plan Disposition Patient Disposition: HOME Condition: Stable Discharge Details Clinical Impression: Complex cyst of right ovary Primary Care Provider: Sree High ED Provider: Yocasta Mckeon Home Meds and New Rx's Prescriptions: No Action naltrexone 50 mg tablet 25 mg PO BID Qty: 60 0RF Rx Instructions: 10-11-21 [facility] [place] [facility]/ NOT SENT trazodone 50 mg tablet 50 mg PO QHS Qty: 90 0RF mupirocin 2 % ointment 1 applic topical TID Qty: 22 0RF tramadol 100 mg tablet 100 mg PO TID PRN (Reason: pain) Qty: 42 0RF cyclobenzaprine 5 mg tablet 5 mg PO TID PRN (Reason: back pain) Qty: 60 1RF propranolol 20 mg tablet 20 mg PO BID Qty: 180 3RF fluoxetine 20 mg capsule 60 mg PO DAILY Qty: 90 12RF Rx Instructions: take 3 capsules daily lamotrigine 150 mg tablet 150 mg PO BID Qty: 60 12RF Rx Instructions: take one tablet twice a day oxybutynin chloride 15 mg tablet extended release 24hr 15 mg PO DAILY Qty: 90 3RF naproxen 500 mg tablet 500 mg PO BID PRN (Reason: pain) Qty: 60 3RF Rx Instructions: take one tablet twice a day with food as needed for pain ondansetron HCl 4 mg tablet 4 mg PO Q8H PRN (Reason: nausea and vomiting) Qty: 14 0RF Discharge Instructions Instructions: Ovarian Cyst (ED) Additional Instructions: There is a 5 x 4 cm fluid-filled type cyst in the right lower quadrant of your abdomen. There is also questionable calcific to the right renal pelvis. Please follow-up with [facility] in the next week. Please return to the ER for any worsening pain, feeling sicker at any time, vomiting, fever chills or any concerns. Follow up with primary care provider in 3-5 days. Return to ED sooner if any worsening or concerns. Increase oral fluids. Please take Tylenol or Ibuprofen with food every 4-6 hours as needed for pain and swelling. Please take the pain medication once twice daily as needed for moderate to severe pain with food. Referrals: Dede Prado MD [ [facility] STAFF PHYSICIAN] - 3 days Sree High, ACCOUNT ASSISTANT [Primary Care Provider] - Enrique Acevedo MD [ [facility] STAFF PHYSICIAN] - 2 weeks Discharge Data Discharge Date/Time-TO BE ENTERED AT DEPARTURE: 06/28/22 13:53 Medical Decision Making Differential diagnosis includes not limited to ovarian cyst, kidney stone, exacerbation of chronic abdominal pain, bowel obstruction which is less likely, diverticulitis , gastroenteritis. 1309: Spoke with radiologist regarding CT abdomen pelvis he reports a 5.5 cm x 4 cm showed snowman shaped fluid-filled cyst unable to differentiate from the ovary on the right adnexa no kidney stones no hydro there is a right-sided 3 mm calcification please see report. URI thinks CBC shows no leukocytosis CMP lactic within normal limits, urinalysis within normal limits lipase within normal limits. 1325: CT shows a fluid like structure 5 x 4 cm in the right adnexa unclear whether it is related to ovarian or not, possibly a 3 mm right renal pelvis calcification. Patient does still have her ovaries, I did discuss the results with her she verbalized understanding. We will have patient follow-up with [facility] within the next week. Discuss strict return instructions, verbalized understanding Medical Records Medical records reviewed: Yes I reviewed the patient's medical records. Imaging Data Radiologic Study: Imaging: CT Scan Radiologist's impression: IMPRESSION: 1. There is a stoma in shape 5.4 x 2.5 x 3.5 cm fluid density structure in the right adnexa, possibly ovarian cystic structure.? The right ovary is not seen is a separate structure from this finding.? Uterus appears to be surgically absent.? The opposite-left ovary appears unremarkable. 2. Appendix and gallbladder are surgically absent.? No evidence of bowel obstruction. 3. There are no radiopaque calculi in the kidneys nor perinephric streaking nor dilatation of the ureters.? There is, however, a calcific density in the right- side of the pelvis measuring 3 x 4 millimeter.? Difficult to differentiate this as being a nonobstructive calculus in the lower ureter versus phlebolith at this level.? Report discussed by phone with ER provider. Lab Data Lab results reviewed: Yes I reviewed the patient's lab results. Labs: Laboratory Tests Range/Units 06/28/22 06/28/22 06/28/22 11:45 12:20 12:20 WBC (4.4-10.8) 10^3/uL 8.73 RBC (3.93-5.22) 10^6/uL 4.21 Hgb (11.2-15.7) g/dL 12.6 Hct (36.0-46.0) % 37.0 MCV (80-95) fL 88 MCH (27.0-33.0) pg 29.9 MCHC (32.0-36.0) % 34.1 RDW (11.7-14.6) % 12.8 Plt Count (130-400) 10^3/uL 337 MPV (8.0-11.0) fL 8.8 Immature Gran % 0.5 Neutrophils % 68.7 Lymphocytes % 23.0 Monocytes % 5.2 Eosinophils % 2.3 Basophils % 0.3 Nucleated RBC % (0.0-0.3) % 0.0 Absolute Neutrophils (1.2-6.7) 10^3/uL 6.00 Absolute Lymphocytes (1.2-3.4) 10^3/uL 2.01 Absolute Monocytes (0.1-0.8) 10^3/uL 0.45 Absolute Eosinophils (0.0-0.7) 10^3/uL 0.20 Absolute Basophils (0.0-0.2) 10^3/uL 0.03 Sodium (136-145) mmol/L 137 Potassium (3.5-5.1) mmol/L 3.9 Chloride (98-107) mmol/L 102 Carbon Dioxide (21.0-32.0) mmol/L 29.2 Anion Gap (3-11) mmol/L 5.8 BUN (7-18) mg/dL 15 Creatinine (0.55-1.02) mg/dL 0.8 Estimated GFR/1.73 m2 (mL/min/1.73m2) >= 60.00 Glucose (74-106) mg/dL 84 Calcium (8.5-10.1) mg/dL 8.9 Magnesium (1.8-2.4) mg/dL 1.8 Total Bilirubin (0.2-1.0) mg/dL 0.5 AST (15-37) U/L 16 ALT (14-59) U/L 25 Alkaline Phosphatase (46-116) U/L 93 Total Protein (6.4-8.2) g/dL 7.5 Albumin (3.4-5.0) g/dL 4.1 Lipase (73-393) U/L 94 Urine Color (Yellow) Yellow Urine Clarity (Clear) Clear Urine pH (5-8) 7.5 Ur Specific [place] (1.005-1.025) 1.020 Urine Protein (Negative) mg/dL Negative Urine Ketones (Negative) mg/dL Negative Urine Blood (Negative) Negative Urine Nitrite (Negative) Negative Urine Bilirubin (Negative) Negative Urine Urobilinogen (Up TO 0.2) EU/dL 0.2 Ur Leukocyte Esterase (Negative) Negative Urine Glucose (Negative) mg/dL Negative HPI General Mode of arrival: ambulatory . Date/Time Provider Initiated Documentation: 06/28/22 11:26 . Limitations to Documentation: no limitations . Information obtained by: patient, RN notes reviewed and old records reviewed . HPI Narrative: 42-year-old female presents to the ER with a chief complaint of bilateral lower abdominal pain which began yesterday which radiates around to her bilateral lower back. She reports nausea no vomiting reports mild amount of diarrhea no constipation denies any hematochezia or mucus in the stool. Does have a surgical history of cholecystectomy, appendectomy, total hysterectomy. Urine was obtained by medical staff credentialing coordinator. Past medical history includes obesity, overactive bladder, irritable bowel syndrome, depression chronic pelvic pain in a female Related Data Home Medications Medication Instructions Recorded Confirmed cyclobenzaprine 5 mg tablet 5 mg PO TID PRN back pain #60 tabs 05/01/21 06/29/22 naltrexone 50 mg tablet 25 mg PO BID #60 tabs 10/12/21 06/29/22 propranolol 20 mg tablet 20 mg PO BID #180 tabs 10/23/21 06/29/22 fluoxetine 20 mg capsule 60 mg PO DAILY #90 caps 11/06/21 06/29/22 lamotrigine 150 mg tablet 150 mg PO BID #60 tab-caps 01/17/22 06/29/22 oxybutynin chloride 15 mg 15 mg PO DAILY #90 tabs 02/06/22 06/29/22 tablet,extended release 24 hr mupirocin 2 % topical ointment 1 applic topical TID #22 grams 02/19/22 06/29/22 trazodone 50 mg tablet 50 mg PO QHS #90 tabs 02/19/22 06/29/22 naproxen 500 mg tablet 500 mg PO BID PRN pain #60 tabs 06/25/22 06/29/22 tramadol 100 mg tablet 100 mg PO TID PRN pain #42 tabs 06/29/22 06/29/22 ondansetron HCl 4 mg tablet 4 mg PO Q8H PRN nausea and 07/03/22 vomiting #14 tabs Previous Rx's Medication Instructions Recorded cyclobenzaprine 5 mg tablet 5 mg PO TID PRN back pain #60 tabs 05/01/21 naltrexone 50 mg tablet 25 mg PO BID #60 tabs 10/12/21 propranolol 20 mg tablet 20 mg PO BID #180 tabs 10/23/21 fluoxetine 20 mg capsule 60 mg PO DAILY #90 caps 11/06/21 lamotrigine 150 mg tablet 150 mg PO BID #60 tab-caps 01/17/22 oxybutynin chloride 15 mg 15 mg PO DAILY #90 tabs 02/06/22 tablet,extended release 24 hr mupirocin 2 % topical ointment 1 applic topical TID #22 grams 02/19/22 trazodone 50 mg tablet 50 mg PO QHS #90 tabs 02/19/22 naproxen 500 mg tablet 500 mg PO BID PRN pain #60 tabs 06/25/22 tramadol 100 mg tablet 100 mg PO TID PRN pain #42 tabs 06/29/22 ondansetron HCl 4 mg tablet 4 mg PO Q8H PRN nausea and 07/03/22 vomiting #14 tabs Allergies Allergy/AdvReac Type Severity Reaction Status Date / Time No Known Drug Allergies Allergy Verified 06/29/22 13:18 General Stated Complaint: Abd Prob JULIANN: 3 Review of Systems All systems reviewed & are unremarkable except as noted in HPI and below Cardiovascular Cardiovascular: Denies chest pain and Denies dyspnea Respiratory Respiratory: Denies cough and Denies dyspnea Gastrointestinal Gastrointestinal: Reports abdominal pain, Reports nausea and Denies vomiting PFSH All Active Problems (Updated 06/28/22 @ 13:32 by Yocasta Mckeon NP) Complex cyst of right ovary (Acute) Ganglion cyst (Acute) Chronic headache (Acute) Obesity (Chronic) Vitamin D deficiency (Acute) Facial tic (Acute) Irritable bowel syndrome (Chronic) OAB (overactive bladder) (Acute) Kidney stone (Chronic) Migraine (Chronic) On Propranolol Open-angle glaucoma (Acute) followed by dr.Francis Boyer/[place], [place] Tx:prostaglandin drops Mood disorder (Acute) disabled, with depression and anxiety Depression (Acute 12/02/17) with anxiety Chronic pelvic pain in female (Acute 08/10/15) persists despite hysterectomy 2014. 2016 will begin Depo Provera q3mo. Back pain (Acute 01/03/16) Medical History (Updated 06/28/22 @ 13:32 by Yocasta Mckeon NP) Chronic headaches as per pt Endometriosis multiple foci in culdesac noted at time of laparoscopy 10/21/14. 11/26/14 Rx with DepoProvera. Menorrhagia Started on OCPs 07/2013 Mental disorder on disability. Plantar fasciitis, right as per pt Surgical History (Updated 12/01/21 @ 14:40 by Rex Edmond MD) Appendectomy Cholecystectomy Diagnostic Laproscopy (10/21/14) Bilateral laparoscopic salpingectomy with ablation of endometriosis implants in the cul-de-sac. Ligation of fallopian tube Open Carpal Tunnel release 08/2013 - recurrent symptoms - OCTR 08/01/20 - R hand. 10/2013 L hand. Trigger Finger release 08/2013 R hand Vaginal hysterectomy (05/12/15) TV. Nl pathology. Family History (Updated 02/13/21 @ 13:30 by Josie Jansen) Mother Depression Emphysema lung Alcohol abuse in the past Father Depression Heart disease Alcohol abuse in the past Brother No problems noted. Maternal Grandfather No problems noted. Paternal Grandfather Parkinson's disease Maternal Grandmother , age 75? No problems noted. Paternal Grandmother , age 80 Heart disease Stroke Son No problems noted. Son Depression Son Heart disease MURMURS Daughter Depression Maternal Uncle Diabetes Social History (Updated 02/19/22 @ 16:29 by Valerie Vera) Smoking/Tobacco Use Status: Never Second Hand Exposure: Yes Smoking risk assessment performed?: Yes Alcohol Intake: current Alcohol Intake frequency: holidays/special occasions only Alcohol type: hard liquor Drug use: Never Substance use type: does not use Caregiver/Support person: Yes Household members: significant other and children Do you need help understanding health information?: Never Pets and animals: Yes Pets and animals: cat(s) and dog(s) Sexually active: Yes Do you think of yourself as: straight/heterosexual Current gender identity: female What is your relationship status?: living with partner How often do you talk on the phone with friends or family?: twice per week How often do you get together with friends or relatives?: once per week How often do you attend taoist or islam services?: 1-3 times per year Do you belong to any clubs or organized social groups?: no Panel score (0-1 are the most socially isolated patients): 2 What type of physical activity do you participate in: walking Duration: 15-30 minutes/day Frequency: 3-4 times per week Janneth/Mormonism: Sabianism Special janneth needs: No Seatbelt use: always Helmet use: Yes Helmet use: always Drive intox or ride w/intox electric truck driver: No Do you feel safe at home: Yes Do you feel safe in your relationship?: Yes Female Reproductive History Menstrual control method: permanent sterilization (hysterectomy for endometriosis) History History 4 Para 4 Hx # Term Pregnancies Multiple births Hx # Pregnancies Ectopic pregnancies AB induced Hx Number of Living Children AB spontaneous Exam Narrative Exam Narrative: Constitutional: Alert and oriented x3. Appears stated age. Normal body habitus. Head: Normocephalic, no trauma. Eyes: Pupils PERRL, Red reflex noted, EOM's intact. Eyelids symmetrical without lesions, discharge, or swelling. ENT: Bilateral TM's WNL, External ear normal to inspection, no mastoid TTP, swelling, or erythema, Nasal turbinates WNL, no nasal discharge. Normal dentition, Posterior pharynx WNL, no exudate. Chest: RRR, Normal S1, S2, distal pulses intact. Resp: Lungs clear to auscultation bilaterally, no wheezes, rales, or rhonchi. Abdomen: Soft, non-distended, Normoactive bowel sounds all 4 quads. Musculoskeletal: Normal gait, 5/5 strength to all four extremities. Skin: No suspicious rashes or lesions. Capillary refill less than 2 sec. Neurologic: Cranial nerves II-XII intact. Alert and oriented x 3. Motor: No deficits noted. Sensory: Intact bilaterally all 4 extremities. Reflexes: DTR's intact bilaterally.. Hematologic/Lymphatic: No ecchymosis, no lymphadenopathy. Course Vital Signs Vital signs: Vital Signs Temperature 36.5 C 06/28/22 11:35 Pulse 71 06/28/22 11:35 Respiratory Rate 16 06/28/22 11:35 Blood Pressure 120/65 06/28/22 11:35 Pulse Oximetry 98 06/28/22 11:35 Temperature 36.5 C 06/28/22 11:35 Temperature Source Temporal Artery Scan 06/28/22 11:35 Pulse 71 06/28/22 11:35 Respiratory Rate 16 06/28/22 11:35 Respiratory Effort 06/28/22 11:39 Blood Pressure 120/65 06/28/22 11:35 Blood Pressure Position Sitting 06/28/22 11:35 Pulse Oximetry 98 06/28/22 11:35 Oxygen Delivery Method Room Air 06/28/22 11:35 Oxygen Flow Rate 0 06/28/22 11:35 Pain Level 8 06/28/22 11:35 Lab/Test Results Lab/Test Results: POC- Test(urine) Negative
[2022-06-28 12:05] LABS: Bilirubin Negative (Negative); Blood Negative (Negative); Clarity Clear (Clear); Glucose Negative (Negative); Ketones Negative (Negative); Leukocyte Esterase Negative (Negative); Nitrite Negative (Negative); Urobilinogen 0.2 EU/dL (Up TO 0.2); pH 7.5 (5-8)
[2022-06-28] MEDS: Ketorolac 15 MG/ML VIAL IVP (12:20)
[2022-06-28] MEDS: Ondansetron 4 MG/2 ML VIAL IVP (12:20)
[2022-06-28 12:25] LABS: Abs Immature Grans 0.04 10^3/uL (0.0-0.06); Absolute Basophil Count 0.03 10^3/uL (0.0-0.2); Absolute Lymphocyte Count 2.01 10^3/uL (1.2-3.4); Absolute Monocyte Count 0.45 10^3/uL (0.1-0.8); Basophils % 0.3; Eosinophils % 2.3; HGB 12.6 g/dL (11.2-15.7); Immature Grans % 0.5; MCH 29.9 pg (27.0-33.0); MCHC 34.1 % (32.0-36.0); MCV 88 fL (80-95); MPV 8.8 fL (8.0-11.0); Monocytes % 5.2; Neutrophils % 68.7; Platelet Count 337 10^3/uL (130-400); RBC 4.21 10^6/uL (3.93-5.22); RDW 12.8 % (11.7-14.6); RDW-SD 41.4 fL; WBC 8.73 10^3/uL (4.4-10.8)
--- NOTE | 2022-06-28 12:43 | DI.CT_ITS ---
Exam(s) CT ABDOMEN PELVIS WO EXAM: CT ABDOMEN PELVIS WO CLINICAL HISTORY: Bilateral lower abd pain, Bilateral flank pain. TECHNIQUE: Imaging Protocol: Axial computed tomography images with coronal and sagittal reformatted images were created and reviewed CONTRAST MATERIAL: Intravenous: none Oral: None COMPARISON: CT ABD PELVIS WO CONTRAST from 01/20/2016 FINDINGS: VISUALIZED LUNG BASES: No nodules nor pleural effusions evident. ABDOMEN: There is no ascites. LIVER: There are no obvious focal hepatic lesions evident of this noninfused study. GALLBLADDER/BILIARY: Gallbladder surgically absent. CBD is not dilated. PANCREAS: No evidence of pancreatic mass nor dilatation of the pancreatic duct. SPLEEN: Spleen is not enlarged. No obvious intrasplenic lesions. ADRENALS: There are no significant adrenal masses. KIDNEYS:No cysts evident. No solid renal masses. No calculi nor hydronephrosis.. Ureters are not dil ated. There is a 3 millimeter calcification in the right-side of the pelvis just above the ureterove sical junction. Difficult to determine this is a calculus in the lower aspect of the nondilated righ t ureter or phlebolith. There are no radiopaque calculi in the left ureter. No calculi evident in t he nondistended urinary bladder. ABDOMINAL AORTA: Abdominal aorta is not enlarged. LYMPH NODES: There is no retroperitoneal nor paraaortic adenopathy. ABDOMINAL WALL: No evidence of significant anterior abdominal wall nor inguinal hernia. GI: There is no evidence of bowel obstruction nor free air. PELVIS: LYMPH NODES: There is no intrapelvic nor inguinal adenopathy. GI: The appendix appears to be surgically absent.No evidence of sigmoid diverticulitis. URINARY BLADDER: No calculi nor obvious masses evident REPRODUCTIVE: Uterus appears to be surgically absent. Left ovary unremarkable. None there is a snow man shaped right adnexal finding measuring 5.4 cm by 2.5 cm x 3.5 cm, exhibiting uniform fluid densit y (8HU). No free fluid OSSEOUS: No significant osseous lesions. No fractures. Sacroiliac joints unremarkable. IMPRESSION: 1. There is a stoma in shape 5.4 x 2.5 x 3.5 cm fluid density structure in the right adnexa, possibly ovarian cystic structure. The right ovary is not seen is a separate structure from this finding. U terus appears to be surgically absent. The opposite-left ovary appears unremarkable. 2. Appendix and gallbladder are surgically absent. No evidence of bowel obstruction. 3. There are no radiopaque calculi in the kidneys nor perinephric streaking nor dilatation of the ure ters. There is, however, a calcific density in the right-side of the pelvis measuring 3 x 4 millimet er. Difficult to differentiate this as being a nonobstructive calculus in the lower ureter versus ph lebolith at this level. Report discussed by phone with ER provider. RADIATION DOSE DELIVERED: 1,125.89mGy.cm Total DLP DATA REPOSITORY: All CT scans at this facility are submitted to the National Radiology Data Registry (NRDR) Dose Index Registry (DIR) with the [employer] (ACR). RADIATION OPTIMIZATION: All CT scans at this facility use at least one of these dose optimization te chniques: automated exposure control; mA and/or kV adjustment per patient size (includes targeted exa ms where dose is matched to clinical indication); or iterative reconstruction.
[2022-06-28 12:45] LABS: ALT 25 U/L (14-59); AST 16 U/L (15-37); Albumin 4.1 g/dL (3.4-5.0); Alkaline Phosphatase 93 U/L (46-116); Anion Gap 5.8 mmol/L (3-11); BUN 15 mg/dL (7-18); Bilirubin, Total 0.5 mg/dL (0.2-1.0); CO2 29.2 mmol/L (21.0-32.0); CREATININE 0.8 mg/dL (0.55-1.02); Calcium 8.9 mg/dL (8.5-10.1); Chloride 102 mmol/L (98-107); Glucose 84 mg/dL (74-106); Lipase 94 U/L (73-393); Magnesium 1.8 mg/dL (1.8-2.4); Potassium 3.9 mmol/L (3.5-5.1); Sodium 137 mmol/L (136-145); Total Protein 7.5 g/dL (6.4-8.2)
--- NOTE | 2022-06-28 13:35 | NUR.NOTE ---
Nursing Note: Pt info faxed to [facility] for fluid filled cyst in a week. Tonya, ED
[2022-06-28] MEDS: traMADol 50 MG TAB PO (13:40)
== END 2022-06-28 13:53 | disposition home or self-care (01) ==
PROVIDERS: Emergency Provider Registered Nurse Emergency; PCP Nurse Practitioner Family
DX: N83.291 Other ovarian cyst, right side (principal); Z87.442 Personal history of urinary calculi; Z77.22 Contact with and (suspected) exposure to environmental tobacco smoke (acute) (chronic); Z90.49 Acquired absence of other specified parts of digestive tract
CPT/HCPCS: 36415; 80053; 81025; 83690; 96374; 96375; 99284; 74176; 81003; 83735; 85025; J1885; J2405

== ENCOUNTER → 2022-09-12 02:25 | Outpatient (CLI) | payer MEDICAID, SELFPAY ==
--- NOTE | 2022-09-12 07:05 | DI.US_ITS ---
Exam(s) US PELVIS TRANSVAGINAL EXAM: US PELVIS TRANSVAGINAL CLINICAL HISTORY: check right adnexa cyst,complex, n83.21 TECHNIQUE: Ultrasound performed using standard protocol. COMPARISON: No exams were available for comparison FINDINGS: Pelvic ultrasound was performed transabdominally and transvaginally. Note is made of a prior hystere ctomy. There is a question of abnormal contour of the right ovary, overall dimensions are 23 x 19 x 22 mirela meters with question of a 7 millimeter exophytic isoechoic mass. Left ovary is unremarkable in appea christa and measures 38 x 16 x 12 millimeters. No vascular abnormality identified in the ovaries. No free fluid in the cul-de-sac. Limited scanning of the kidneys is unremarkable. IMPRESSION: Question right ovarian or paraovarian mass. Correlation with pelvic MRI recommended. DATA REPOSITORY:
== END ==
PROVIDERS: PCP Nurse Practitioner Family; Visit Provider Obstetrics & Gynecology
DX: N83.291 Other ovarian cyst, right side (principal)
CPT/HCPCS: 76830; 76856

== ENCOUNTER 2023-02-25 00:02 | Outpatient (CLI) | payer MEDICAID, SELFPAY ==
--- NOTE | 2023-02-25 09:25 | DI.US_ITS ---
Exam(s) US PELVIS TRANSVAGINAL EXAM: US PELVIS TRANSVAGINAL CLINICAL HISTORY: Recheck ovarian cyst,COMPLEX CYST, N83.291. TECHNIQUE: Transabdominal and transvaginal pelvic ultrasound was performed using standard protocol. COMPARISON: US US PELVIS TRANSVAGINAL from 09/12/2022 FINDINGS: UTERUS: Status post hysterectomy. OVARIES: Right: 1.9 x 1.4 x 2.3 cm Cyst or mass: No suspicious cystic or solid masses. Left: 3.6 x 2.8 x 1.6 cm Cyst or mass: No suspicious cystic or solid masses. DOPPLER: Color: Symmetric and uniform flow to both ovaries. CUL-DE-SAC: Free fluid: None. Other: There is a 0.4 x 0.6 x 0.6 cm isoechoic nodule adjacent to the right ovary. It is in the same location as the prior examination. This remains indeterminate. An MRI of the pelvis without and wi th contrast should be considered in this patient for further characterization of this right paraovari an lesion. IMPRESSION: 1. Status post hysterectomy. 2. Unremarkable bilateral ovaries. 3. 0.4 x 0.6 x 0 6 cm isoechoic nodule adjacent to the right ovary. It remains indeterminate. An MR I of the pelvis without and with contrast should be considered in this patient for further characteri zation of this lesion. DATA REPOSITORY:
== END 2023-02-25 00:22 ==
PROVIDERS: PCP Nurse Practitioner Family; Visit Provider Obstetrics & Gynecology
DX: N83.291 Other ovarian cyst, right side (principal)
CPT/HCPCS: 76830; 76856

== ENCOUNTER 2023-03-13 15:56 | Emergency (ER) | payer MEDICAID, SELFPAY ==
[2023-03-13] VITALS (22 sets, daily range): BP systolic 136–156; BP diastolic 74–94; PULSE 84–123; RESP 11–21; TEMP 36.8; O2SAT 95–100
[2023-03-13 16:41] LABS: Abs Immature Grans 0.07 10^3/uL (0.0-0.06); Absolute Basophil Count 0.04 10^3/uL (0.0-0.2); Absolute Eosinophil Count 0.08 10^3/uL (0.0-0.7); Absolute Lymphocyte Count 1.63 10^3/uL (1.2-3.4); Absolute Monocyte Count 0.68 10^3/uL (0.1-0.8); Absolute Neutrophil Count 8.71 10^3/uL (1.2-6.7); Basophils % 0.4; Eosinophils % 0.7; HCT 38.4 % (36.0-46.0); HGB 13.8 g/dL (11.2-15.7); Immature Grans % 0.6; Lactate 1.6 mmol/L (0.6-1.4); Lymphocytes % 14.5; MCH 29.2 pg (27.0-33.0); MCHC 35.9 % (32.0-36.0); MCV 81 fL (80-95); MPV 9.3 fL (8.0-11.0); Monocytes % 6.1; Neutrophils % 77.7; Platelet Count 355 10^3/uL (130-400); RBC 4.73 10^6/uL (3.93-5.22); RDW 14.6 % (11.7-14.6); RDW-SD 43.2 fL; WBC 11.21 10^3/uL (4.4-10.8)
--- NOTE | 2023-03-13 16:53 | W.ED.GENAD ---
Discharge Plan Disposition Patient Disposition: Home Discharge Details Clinical Impression: Hypokalemia, inadequate intake, Vomiting Primary Care Provider: Sree High ED Provider: Yocasta Mckeon Home Meds and New Rx's Prescriptions: New metoclopramide HCl [Reglan] 5 mg tablet 5 mg PO QACHS PRN (Reason: nausea and vomiting) Qty: 10 0RF Rx Instructions: Take 1 tablet by mouth before meals and at bed time as needed for nausea vomiting do not take more than 3 a day. potassium chloride 20 mEq tablet,ER particles/crystals 20 meq PO DAILY 3 Days Qty: 3 0RF Rx Instructions: Take 1 tablet daily for the next 3 days. Continued ondansetron HCl 4 mg tablet 4 mg PO Q8H PRN (Reason: nausea and vomiting) Qty: 14 0RF omeprazole 40 mg capsule,delayed release(DR/EC) 40 mg PO DAILY Patient Comments: take 1 tab QD x 90 days s/p gastric bypass albuterol sulfate [ProAir HFA] 90 mcg/actuation HFA aerosol inhaler 2 puff inhalation Q6H PRN [place] Comments[place] [facility] [place]c summary calcium citrate-vitamin D3 250 mg-5 mcg (200 unit) tablet 2 tab PO DAILY Qty: 180 3RF iron,carbonyl-vitamin C 100-250 mg tablet 1 tab PO DAILY Qty: 90 3RF mecobalamin (vitamin B12) 500 mcg tablet,chewable 500 mcg PO DAILY Qty: 90 3RF Complete Multivitamin-Mineral 18-400 mg-mcg tablet 1 tab PO DAILY Qty: 90 3RF fluoxetine 20 mg capsule 60 mg PO DAILY Qty: 270 0RF promethazine 12.5 mg tablet 12.5 mg PO QID PRN (Reason: nausea and vomiting) Qty: 60 0RF Rx Instructions: May take 2 tabs to equal 25mg if needed. No Action Emgality Pen 120 mg/mL pen injector 120 mg subcut ONCE Qty: 1 11RF Patient Comments: has not had in a month Rx Instructions: as a single dose oxybutynin 3.9 mg/24 hr patch semiweekly 1 patch transdermal .COMPLEX Qty: 8 12RF Rx Instructions: 1 patch transdermally Twice weekly; cyclobenzaprine 5 mg tablet 5 mg PO TID PRN (Reason: back pain) Qty: 60 1RF lamotrigine 150 mg tablet 150 mg PO BID Qty: 60 12RF Rx Instructions: take one tablet twice a day propranolol 20 mg tablet 20 mg PO BID Qty: 180 3RF cholecalciferol (vitamin D3) 50 mcg (2,000 unit) capsule 50 mcg PO DAILY Qty: 90 3RF docusate sodium 100 mg capsule 100 mg PO BID Patient Comments: s/p gastric bypass 01/10/23 latanoprost 0.005 % drops 1 drp ophthalmic (eye) QPM Rx Instructions: 1 drop each eye qhs polyethylene glycol 3350 17 gram/dose powder 17 g PO DAILY Qty: 510 4RF Discharge Instructions Instructions: Hypokalemia (ED), Acute Nausea and Vomiting (ED) Additional Instructions: Please take the Reglan as directed 20 to 30 minutes before eating or drinking anything. Please attempt to take your supplements. If you are unable to please take the potassium as directed. Increase foods with high potassium content over the next few days as well as including bananas. Please follow-up with your surgeon who performed the surgery at [facility] and make an appointment within the next week. Small frequent meals. Follow up with primary care provider in 3-5 days. Return to ED sooner if any worsening or concerns. Increase oral fluids. While vomiting you may also sip on Gatorade or similar. Referrals: [facility] [Outside] - 1 week Sree High, [employer] [Primary Care Provider] - 2 days Discharge Data Discharge Date/Time-TO BE ENTERED AT DEPARTURE: 03/13/23 23:39 Medical Decision Making 43-year-old female presents to the ER with chief complaint of nausea vomiting diarrhea for the last week. Patient is status post gastric bypass surgery on January 10 of this year. She presents with dry mucous membranes and tachycardia. She is very weak, boyfriend states that she is now losing consciousness within the last few hours. She did take Zofran an hour prior to arrival. Other past medical history includes obstructive sleep apnea, vitamin D deficiency, depression, chronic headaches, endometriosis, she has history of cholecystectomy. She reports since the surgery she has had decreased oral intake and tolerance of food. Work-up ordered including CBC CMP, lipase lactate urinalysis, will consider CT abdomen pelvis with IV contrast liter of normal saline and Reglan ordered. Lactate 1.6, WBCs 11.21 neutrophils 8.71. Potassium critically low at 2.3, 20 meq IV potassium ordered, patient was given Reglan, chloride 95 glucose 108 liver enzymes are all elevated AST is 110 ALT 106 alk phos is 145 lipase is high at 166. Repeat potassium is 2.5 which is slightly up from 2.3. 2240: Patient is not tolerating the p.o. liquid potassium, will give p.o. tablet of 20 mill equivalents and an additional Reglan. At this time patient is dry heaving. She is receiving liter normal saline with 40 of K at 250 an hour. Prior to discharge patient is tolerating p.o. without any further emesis. Was able to take 20 mill equivalent p.o. tablet of potassium. She does appear improved and reports that she does feel improved after the fluids and nausea medications. Prescription given for Reglan and 3 days of potassium supplements and instructed to follow-up with her PCP she verbalizes understanding. This text was generated using [employer] dictation system, please disregard any oddities of phrase or misspellings. Medical Records Medical records reviewed: Yes I reviewed the patient's medical records. Imaging Data Radiologic Study: Imaging: CT Scan Radiologist's impression: IMPRESSION: 1. Status post cholecystectomy. Status post appendectomy. Status post gastric bypass surgery. Status post hysterectomy. 2. Mild fatty infiltration of the liver. More severe focal fatty infiltration at the level of the falciform ligament. 3. Bilateral prominent ovarian follicles. 4. Asymmetrical thickening of the urinary bladder wall. Further evaluation as clinically warranted. Thank you for allowing us to participate in the care of your patient. Dictated and Authenticated by: Valdemar Saenz MD Lab Data Lab results reviewed: Yes I reviewed the patient's lab results. Labs: Laboratory Tests Range/Units 03/13/23 03/13/23 03/13/23 16:30 16:30 16:30 WBC (4.4-10.8) 10^3/uL 11.21 H RBC (3.93-5.22) 10^6/uL 4.73 Hgb (11.2-15.7) g/dL 13.8 Hct (36.0-46.0) % 38.4 MCV (80-95) fL 81 MCH (27.0-33.0) pg 29.2 MCHC (32.0-36.0) % 35.9 RDW (11.7-14.6) % 14.6 Plt Count (130-400) 10^3/uL 355 MPV (8.0-11.0) fL 9.3 Immature Gran % 0.6 Neutrophils % 77.7 Lymphocytes % 14.5 Monocytes % 6.1 Eosinophils % 0.7 Basophils % 0.4 Nucleated RBC % (0.0-0.3) % 0.0 Absolute Neutrophils (1.2-6.7) 10^3/uL 8.71 H Absolute Lymphocytes (1.2-3.4) 10^3/uL 1.63 Absolute Monocytes (0.1-0.8) 10^3/uL 0.68 Absolute Eosinophils (0.0-0.7) 10^3/uL 0.08 Absolute Basophils (0.0-0.2) 10^3/uL 0.04 VBG Lactate (0.6-1.4) mmol/L 1.6 H Sodium (136-145) mmol/L 137 Potassium (3.5-5.1) mmol/L 2.3 L* Chloride (98-107) mmol/L 95 L Carbon Dioxide (21.0-32.0) mmol/L 29.0 Anion Gap (3-11) mmol/L 13.0 H BUN (7-18) mg/dL 12 Creatinine (0.55-1.02) mg/dL 0.6 Est GFR (CKD-EPI 2020) (mL/min/1.73m2) 112.73 Glucose (74-106) mg/dL 108 H Calcium (8.5-10.1) mg/dL 9.8 Magnesium (1.8-2.4) mg/dL 1.8 Total Bilirubin (0.2-1.0) mg/dL 1.3 H AST (15-37) U/L 110 H ALT (14-59) U/L 106 H Alkaline Phosphatase (46-116) U/L 145 H Total Protein (6.4-8.2) g/dL 8.1 Albumin (3.4-5.0) g/dL 4.0 Lipase (16-77) U/L 166 H Urine Color (Yellow) Urine Clarity (Clear) Urine pH (5-8) Ur Specific Mears (1.005-1.025) Urine Protein (Negative) mg/dL Urine Ketones (Negative) mg/dL Urine Blood (Negative) Urine Nitrite (Negative) Urine Bilirubin (Negative) Urine Urobilinogen (Up to 0.2) mg/dL Ur Leukocyte Esterase (Negative) Urine RBC (0-2) HPF Urine WBC (0-5) HPF Ur Epithelial Cells (Negative) HPF Urine Crystals (Negative) HPF Urine Bacteria (Negative) HPF Urine Casts (Negative) LPF Urine Mucus (Negative) Ur Culture Indicated? Urine Glucose (Negative) mg/dL Range/Units 03/13/23 03/13/23 18:20 20:06 WBC (4.4-10.8) 10^3/uL RBC (3.93-5.22) 10^6/uL Hgb (11.2-15.7) g/dL Hct (36.0-46.0) % MCV (80-95) fL MCH (27.0-33.0) pg MCHC (32.0-36.0) % RDW (11.7-14.6) % Plt Count (130-400) 10^3/uL MPV (8.0-11.0) fL Immature Gran % Neutrophils % Lymphocytes % Monocytes % Eosinophils % Basophils % Nucleated RBC % (0.0-0.3) % Absolute Neutrophils (1.2-6.7) 10^3/uL Absolute Lymphocytes (1.2-3.4) 10^3/uL Absolute Monocytes (0.1-0.8) 10^3/uL Absolute Eosinophils (0.0-0.7) 10^3/uL Absolute Basophils (0.0-0.2) 10^3/uL VBG Lactate (0.6-1.4) mmol/L Sodium (136-145) mmol/L 138 Potassium (3.5-5.1) mmol/L 2.5 L* Chloride (98-107) mmol/L 100 Carbon Dioxide (21.0-32.0) mmol/L 28.9 Anion Gap (3-11) mmol/L 9.1 BUN (7-18) mg/dL 10 Creatinine (0.55-1.02) mg/dL 0.6 Est GFR (CKD-EPI 2020) (mL/min/1.73m2) 112.73 Glucose (74-106) mg/dL 90 Calcium (8.5-10.1) mg/dL 8.3 L Magnesium (1.8-2.4) mg/dL Total Bilirubin (0.2-1.0) mg/dL AST (15-37) U/L ALT (14-59) U/L Alkaline Phosphatase (46-116) U/L Total Protein (6.4-8.2) g/dL Albumin (3.4-5.0) g/dL Lipase (16-77) U/L Urine Color (Yellow) Yellow Urine Clarity (Clear) Clear Urine pH (5-8) 7.0 Ur Specific Mears (1.005-1.025) 1.010 Urine Protein (Negative) mg/dL 30 H Urine Ketones (Negative) mg/dL >=160 H Urine Blood (Negative) Trace-intact H Urine Nitrite (Negative) Negative Urine Bilirubin (Negative) Moderate H Urine Urobilinogen (Up to 0.2) mg/dL 1.0 H Ur Leukocyte Esterase (Negative) Negative Urine RBC (0-2) HPF 0-2 Urine WBC (0-5) HPF 0-2 Ur Epithelial Cells (Negative) HPF Moderate Urine Crystals (Negative) HPF Negative Urine Bacteria (Negative) HPF Rare Urine Casts (Negative) LPF Negative Urine Mucus (Negative) Moderate Ur Culture Indicated? No Urine Glucose (Negative) mg/dL Negative HPI General Mode of arrival: ambulatory. Date/Time Provider Initiated Documentation: 03/13/23 16:14. Limitations to Documentation: no limitations. Information obtained by: patient, RN notes reviewed and old records reviewed. HPI Narrative: 43-year-old female presents to the ER with chief complaint of nausea vomiting diarrhea for the last week. Patient is status post gastric bypass surgery on January 10 of this year. She presents with dry mucous membranes and tachycardia. She is very weak, boyfriend states that she is now losing consciousness within the last few hours. She did take Zofran an hour prior to arrival. Other past medical history includes obstructive sleep apnea, vitamin D deficiency, depression, chronic headaches, endometriosis, she has history of cholecystectomy. She reports since the surgery she has had decreased oral intake and tolerance of food. Related Data Home Medications Medication Instructions Recorded Confirmed cyclobenzaprine 5 mg tablet 5 mg PO TID PRN back pain #60 tabs 05/01/21 03/13/23 lamotrigine 150 mg tablet 150 mg PO BID #60 tab-caps 01/17/22 03/13/23 ondansetron HCl 4 mg tablet 4 mg PO Q8H PRN nausea and 07/03/22 03/13/23 vomiting #14 tabs propranolol 20 mg tablet 20 mg PO BID #180 tabs 08/01/22 03/13/23 galcanezumab-gnlm 120 mg/mL 120 mg subcut ONCE #1 mL 11/01/22 03/13/23 subcutaneous pen injector (Emgality Pen) cholecalciferol (vitamin D3) 50 50 mcg PO DAILY #90 caps 12/26/22 03/13/23 mcg (2,000 unit) capsule albuterol sulfate 90 mcg/actuation 2 puff inhalation Q6H PRN 01/14/23 03/13/23 aerosol inhaler (ProAir HFA) docusate sodium 100 mg capsule 100 mg PO BID Constipation 01/14/23 03/13/23 latanoprost 0.005 % eye drops 1 drp ophthalmic (eye) QPM 01/14/23 03/13/23 omeprazole 40 mg capsule,delayed 40 mg PO DAILY 01/14/23 03/13/23 release calcium citrate 250 mg 2 tab PO DAILY #180 tabs 01/24/23 03/13/23 calcium-vitamin D3 5 mcg (200 unit) tablet iron,carbonyl 100 mg-vitamin C 250 1 tab PO DAILY #90 tabs 01/24/23 03/13/23 mg tablet mecobalamin (vitamin B12) 500 mcg 500 mcg PO DAILY #90 tabs 01/24/23 03/13/23 chewable tablet multivitamin-ferrous 1 tab PO DAILY #90 tabs 01/24/23 03/13/23 fumarate-folic acid 18 mg-400 mcg tablet (Complete Multivitamin-Multimineral) oxybutynin 3.9 mg/24 hr semiweekly 1 patch transdermal .COMPLEX #8 ea 01/24/23 03/13/23 transdermal patch polyethylene glycol 3350 17 17 g PO DAILY #510 grams 01/24/23 03/13/23 gram/dose oral powder fluoxetine 20 mg capsule 60 mg PO DAILY #270 caps 01/30/23 03/13/23 promethazine 12.5 mg tablet 12.5 mg PO QID PRN nausea and 03/07/23 03/13/23 vomiting #60 tabs metoclopramide HCl 5 mg tablet 5 mg PO QACHS PRN nausea and 03/13/23 (Reglan) vomiting #10 tabs potassium chloride 20 mEq 20 meq PO DAILY 3 days #3 tabs 03/13/23 tablet,extended release(part/cryst) Previous Rx's Medication Instructions Recorded cyclobenzaprine 5 mg tablet 5 mg PO TID PRN back pain #60 tabs 05/01/21 lamotrigine 150 mg tablet 150 mg PO BID #60 tab-caps 01/17/22 ondansetron HCl 4 mg tablet 4 mg PO Q8H PRN nausea and 07/03/22 vomiting #14 tabs propranolol 20 mg tablet 20 mg PO BID #180 tabs 08/01/22 galcanezumab-gnlm 120 mg/mL 120 mg subcut ONCE #1 mL 11/01/22 subcutaneous pen injector (Emgality Pen) cholecalciferol (vitamin D3) 50 50 mcg PO DAILY #90 caps 12/26/22 mcg (2,000 unit) capsule calcium citrate 250 mg 2 tab PO DAILY #180 tabs 01/24/23 calcium-vitamin D3 5 mcg (200 unit) tablet iron,carbonyl 100 mg-vitamin C 250 1 tab PO DAILY #90 tabs 01/24/23 mg tablet mecobalamin (vitamin B12) 500 mcg 500 mcg PO DAILY #90 tabs 01/24/23 chewable tablet multivitamin-ferrous 1 tab PO DAILY #90 tabs 01/24/23 fumarate-folic acid 18 mg-400 mcg tablet (Complete Multivitamin-Multimineral) oxybutynin 3.9 mg/24 hr semiweekly 1 patch transdermal .COMPLEX #8 ea 01/24/23 transdermal patch polyethylene glycol 3350 17 17 g PO DAILY #510 grams 01/24/23 gram/dose oral powder fluoxetine 20 mg capsule 60 mg PO DAILY #270 caps 01/30/23 promethazine 12.5 mg tablet 12.5 mg PO QID PRN nausea and 03/07/23 vomiting #60 tabs metoclopramide HCl 5 mg tablet 5 mg PO QACHS PRN nausea and 03/13/23 (Reglan) vomiting #10 tabs potassium chloride 20 mEq 20 meq PO DAILY 3 days #3 tabs 03/13/23 tablet,extended release(part/cryst) Allergies Allergy/AdvReac Type Severity Reaction Status Date / Time No Known Drug Allergies Allergy Verified 03/13/23 16:17 General Stated Complaint: Abd Prob JULIANN: 2 Review of Systems All systems reviewed & are unremarkable except as noted in HPI and below Constitutional Constitutional: Reports poor appetite Gastrointestinal Gastrointestinal: Reports abdominal pain, Reports early satiety, Reports diarrhea, Reports nausea and Reports vomiting PFSH All Active Problems (Updated 03/13/23 @ 23:25 by Yocasta Mckeon NP) Hypokalemia, inadequate intake (Acute) Vomiting (Acute) Adnexal cyst (Acute) Abdominal pain (Acute) Back pain (Acute 01/03/16) Chronic pelvic pain in female (Acute 08/10/15) persists despite hysterectomy 2014. 2016 will begin Depo Provera q3mo. Depression (Acute 12/02/17) with anxiety Mood disorder (Acute) disabled, with depression and anxiety Open-angle glaucoma (Acute) followed by dr.Francis Boyer/Har[facility] CT Tx:prostaglandin drops Migraine (Chronic) On Propranolol Kidney stone (Chronic) OAB (overactive bladder) (Acute) Irritable bowel syndrome (Chronic) Facial tic (Acute) Vitamin D deficiency (Acute) Obesity (Chronic) gastric bypass in Dec 2022 Chronic headache (Acute) Ganglion cyst (Acute) Left breast lump (Acute) Obstructive sleep apnea (Chronic) Medical History Chronic headaches as per pt Endometriosis multiple foci in culdesac noted at time of laparoscopy 10/21/14. 11/26/14 Rx with DepoProvera. Menorrhagia Started on OCPs 07/2013 Mental disorder on disability. Plantar fasciitis, right as per pt Surgical History Appendectomy Cholecystectomy Diagnostic Laproscopy (10/21/14) Bilateral laparoscopic salpingectomy with ablation of endometriosis implants in the cul-de-sac. Gastric bypass status for [place] [facility] [place] 01/10/23 Laparoscopic [place] Gastric Bypass Ligation of fallopian tube Open Carpal Tunnel release 08/2013 - recurrent symptoms - OCTR 08/01/20 - R hand. 10/2013 L hand. Trigger Finger release 08/2013 R hand Vaginal hysterectomy (05/12/15) TV. Nl pathology. Family History Mother Depression Emphysema lung Alcohol abuse in the past Father Depression Heart disease Alcohol abuse in the past Brother No problems noted. Maternal Grandfather No problems noted. Paternal Grandfather Parkinson's disease Maternal Grandmother , age 75? No problems noted. Paternal Grandmother , age 80 Heart disease Stroke Son No problems noted. Son Depression Son Heart disease MURMURS Daughter Depression Maternal Uncle Diabetes Social History Smoking/Tobacco Use Status: Never Second Hand Exposure: Yes Smoking risk assessment performed?: Yes Alcohol Intake: never Drug use: Never Substance use type: does not use Caregiver/Support person: Yes Household members: significant other and children Housing: apartment Communication Needs: None Do you need help understanding health information?: Never Pets and animals: Yes Pets and animals: cat(s) and dog(s) Sexually active: Yes Do you think of yourself as: straight/heterosexual Current gender identity: female What is your relationship status?: living with partner How often do you talk on the phone with friends or family?: twice per week How often do you get together with friends or relatives?: once per week How often do you attend pentecostal or nondenominational services?: 1-3 times per year Do you belong to any clubs or organized social groups?: no Panel score (0-1 are the most socially isolated patients): 2 What type of physical activity do you participate in: walking Duration: 15-30 minutes/day Frequency: 3-4 times per week Janneth/Sabianist: Christianity Special janneth needs: No Seatbelt use: always Helmet use: Yes Helmet use: always Drive intox or ride w/intox truss driver helper: No Do you feel safe at home: Yes Do you feel safe in your relationship?: Yes Female Reproductive History Menstrual control method: permanent sterilization (hysterectomy for endometriosis) History History 4 Para 4 Hx # Term Pregnancies Multiple births Hx # Pregnancies Ectopic pregnancies AB induced Hx Number of Living Children AB spontaneous Exam Narrative Exam Narrative: Constitutional: Alert and oriented x3. Appears stated age. Normal body habitus. Head: Normocephalic, no trauma. Eyes: Pupils PERRL, Red reflex noted, EOM's intact. Eyelids symmetrical without lesions, discharge, or swelling. ENT: Bilateral TM's WNL, External ear normal to inspection, no mastoid TTP, swelling, or erythema, Nasal turbinates WNL, no nasal discharge. Normal dentition, Posterior pharynx WNL, no exudate. Dry mucous membranes. Chest: RRR, Normal S1, S2, distal pulses intact. Resp: Lungs clear to auscultation bilaterally, no wheezes, rales, or rhonchi. Abdomen: Soft, non-distended, Normoactive bowel sounds all 4 quads. Generalized tenderness with palpation. No masses or guarding noted. Musculoskeletal: Unable to assess gait, 5/5 strength to all four extremities. Skin: No suspicious rashes or lesions. Capillary refill less than 2 sec. Neurologic: Cranial nerves II-XII intact. Alert and oriented x 3. Motor: No deficits noted. Sensory: Intact bilaterally all 4 extremities. Reflexes: DTR's intact bilaterally.. Hematologic/Lymphatic: No ecchymosis, no lymphadenopathy. Course Vital Signs Vital signs: Vital Signs Temperature 36.8 C 03/13/23 16:08 Pulse 123 H 03/13/23 16:08 Respiratory Rate 18 03/13/23 16:08 Blood Pressure 139/85 03/13/23 16:08 Pulse Oximetry 98 03/13/23 16:08 Temperature 36.8 C 03/13/23 16:08 Temperature Source Oral 03/13/23 16:08 Pulse 123 H 03/13/23 16:08 Respiratory Rate 18 03/13/23 16:08 Blood Pressure 139/85 03/13/23 16:08 Blood Pressure Position Supine 03/13/23 16:08 Pulse Oximetry 98 03/13/23 16:08 Oxygen Delivery Method Room Air 03/13/23 16:08 Oxygen Flow Rate 0 03/13/23 16:08 Pain Level 8 03/13/23 16:08 Lab/Test Results Lab/Test Results: Laboratory Tests Range/Units 03/13/23 03/13/23 16:30 16:30 WBC (4.4-10.8) 10^3/uL 11.21 H RBC (3.93-5.22) 10^6/uL 4.73 Hgb (11.2-15.7) g/dL 13.8 Hct (36.0-46.0) % 38.4 MCV (80-95) fL 81 MCH (27.0-33.0) pg 29.2 MCHC (32.0-36.0) % 35.9 RDW (11.7-14.6) % 14.6 Plt Count (130-400) 10^3/uL 355 MPV (8.0-11.0) fL 9.3 Immature Gran % 0.6 Neutrophils % 77.7 Lymphocytes % 14.5 Monocytes % 6.1 Eosinophils % 0.7 Basophils % 0.4 Nucleated RBC % (0.0-0.3) % 0.0 Absolute Neutrophils (1.2-6.7) 10^3/uL 8.71 H Absolute Lymphocytes (1.2-3.4) 10^3/uL 1.63 Absolute Monocytes (0.1-0.8) 10^3/uL 0.68 Absolute Eosinophils (0.0-0.7) 10^3/uL 0.08 Absolute Basophils (0.0-0.2) 10^3/uL 0.04 VBG Lactate (0.6-1.4) mmol/L 1.6 H
[2023-03-13] MEDS: Metoclopramide 10 MG/2 ML VIAL IVP ×2 (16:56→22:46)
[2023-03-13] MEDS: Normal Saline 1,000 ML 1000 ML IV (16:56)
--- NOTE | 2023-03-13 16:57 | DI.CT_ITS ---
Exam(s) CT ABDOMEN PELVIS W EXAM: CT ABDOMEN PELVIS W CLINICAL HISTORY: Hx Gastric Bypass, N/V/D, Abdominal pain TECHNIQUE: Imaging Protocol: Axial computed tomography images with coronal and sagittal reformatted images were created and reviewed CONTRAST MATERIAL: Intravenous: Omnipaque 350 Contrast volume:100 mL Oral: No COMPARISON: CT ABD PELVIS WITH CONTRAST from 07/03/2015 CT ABD PELVIS WO CONTRAST from 01/20/[address] ABDOMEN PELVIS WO from 06/28/2022 FINDINGS: ABDOMEN: Lung Bases: Normal where visualized. Liver: There is again seen an area of decreased attenuation near the falciform ligament likely reflec ting focal fatty infiltration. No measurable mass. Portal, Superior Mesenteric, and Splenic Veins: Unremarkable. Gallbladder and Biliary Tract: Status post cholecystectomy. No significant biliary ductal dilatation is present. Pancreas: Normal density, no abnormal calcifications or inflammatory process. Spleen: Normal. Adrenals: No masses seen. Kidneys: Normal size, contour and axis. No radiodense stones or obstructive uropathy. No masses seen. Abdominal Aorta: Abdominal portion non-dilated. Bowel: No obstruction or bowel wall thickening. There are postsurgical changes seen in the stomach. The patient is status post appendectomy. Peritoneal Cavity: There is a trace amount of free fluid in the pelvis. No significant fluid collect ion is seen. No free air. Lymph Nodes: Within normal limits. Bones: Within normal limits for the patient's age. Soft Tissues: Unremarkable. PELVIS: Bladder: There is asymmetric thickening of the urinary bladder wall. Reproductive Organs: Status post hysterectomy. Bilateral ovarian follicles. Lymph Nodes: Within normal limits. Bones: Within normal limits for the patient's age. IMPRESSION: 1. Focal fatty infiltration of the liver. 2. Asymmetric thickening of the urinary bladder wall. Further evaluation as clinically warranted. 3. Status post cholecystectomy, appendectomy, hysterectomy and gastric bypass surgery. RADIATION DOSE DELIVERED: 1,065.46mGy.cm Total DLP DATA REPOSITORY: All CT scans at this facility are submitted to the National Radiology Data Registry (NRDR) Dose Index Registry (DIR) with the [employer] ([employer]). RADIATION OPTIMIZATION: All CT scans at this facility use at least one of these dose optimization te chniques: automated exposure control; mA and/or kV adjustment per patient size (includes targeted exa ms where dose is matched to clinical indication); or iterative reconstruction.
[2023-03-13 17:04] LABS: ALT 106 U/L (14-59); AST 110 U/L (15-37); Alkaline Phosphatase 145 U/L (46-116); BUN 12 mg/dL (7-18); Bilirubin, Total 1.3 mg/dL (0.2-1.0); CREATININE 0.6 mg/dL (0.55-1.02); Calcium 9.8 mg/dL (8.5-10.1); Chloride 95 mmol/L (98-107); Estimated GFR 112.73 (mL/min/1.73m2); Glucose 108 mg/dL (74-106); Lipase 166 U/L (16-77); Magnesium 1.8 mg/dL (1.8-2.4); Sodium 137 mmol/L (136-145); Total Protein 8.1 g/dL (6.4-8.2)
[2023-03-13 17:06] LABS: Potassium 2.3 mmol/L (3.5-5.1)
[2023-03-13] MEDS: Normal Saline Flush 10 ML SYR IVP (17:19)
[2023-03-13] MEDS: Normal Saline - Diluent 50 ML VIAL IJ (17:20)
[2023-03-13] MEDS: Omnipaque 350 MG/ML 100 ML BTL IJ (17:20)
[2023-03-13] MEDS: POTASSIUM CHLORIDE 20 MEQ/100 ML BAG 50 MEQ IVPB (17:42)
--- NOTE | 2023-03-13 18:01 | DI.VRAD_ITS ---
PROCEDURE INFORMATION: Exam: CT Abdomen And Pelvis With Contrast Exam date and time: 03/13/2023 5:21 PM Age: 43 years old Clinical indication: Nausea and vomiting and other: HX gastric bypass, n/v/d, abdominal pain; Prior surgery; Surgery date: 1-6 months; Surgery type: Gastric bypass in jan 10 TECHNIQUE: Imaging protocol: Computed tomography of the abdomen and pelvis with contrast. Contrast material: OMNIPAQUE 350; Contrast volume: 100 ml; Contrast route: INTRAVENOUS (IV); COMPARISON: CT ABDOMEN PELVIS WO 06/28/2022 12:35 PM FINDINGS: Lungs: The visualized lung bases are within normal limits. Heart: The visualized portions of the heart and pericardium are unremarkable. Coronary arteries: There are no coronary artery calcifications. Liver: There is mild fatty infiltration of the liver. There is a small area of severe focal fatty infiltration at the level of the falciform ligament. Gallbladder and bile ducts: The patient is status post cholecystectomy. Pancreas: The pancreas is unremarkable. Spleen: The spleen is unremarkable. Adrenal glands: The adrenal glands are within normal limits. Kidneys and ureters: The kidneys are within normal limits. Stomach and bowel: The patient is status post gastric bypass surgery. The anastomosis appear intact. Appendix: The patient is status post appendectomy. Intraperitoneal space: There is a small amount of free fluid in the cul-de-sac. This could be physiologic in nature. Vasculature: The aorta is within normal limits. Lymph nodes: No enlarged lymph nodes. Urinary bladder: There is asymmetrical thickening of the urinary bladder wall. Clinical correlation is recommended. Further evaluation as clinically warranted. Reproductive: The patient is status post hysterectomy. There are prominent bilateral ovarian follicles. Bones/joints: There is a slight levoscoliosis of the lumbar spine. Soft tissues: Unremarkable. IMPRESSION: 1. Status post cholecystectomy. Status post appendectomy. Status post gastric bypass surgery. Status post hysterectomy. 2. Mild fatty infiltration of the liver. More severe focal fatty infiltration at the level of the falciform ligament. 3. Bilateral prominent ovarian follicles. 4. Asymmetrical thickening of the urinary bladder wall. Further evaluation as clinically warranted. Dictated and Authenticated by: Valdemar Saenz MD. Ordering:FERN Rust MD
[2023-03-13 18:26] LABS: Bilirubin Moderate (Negative); Blood Trace-intact (Negative); Clarity Clear (Clear); Glucose Negative (Negative); Ketones >=160 mg/dL (Negative); Leukocyte Esterase Negative (Negative); Nitrite Negative (Negative)
[2023-03-13] MEDS: Normal Saline 500 ML IV (18:35)
[2023-03-13 18:50] LABS: Bacteria Rare HPF (Negative); Crystals Negative HPF (Negative); Epithelial Cells Moderate HPF (Negative); RBC 0-2 HPF (0-2); WBC 0-2 HPF (0-5)
[2023-03-13 18:51] LABS: C & S Indicated? No; Casts Negative LPF (Negative); Mucus Moderate (Negative)
[2023-03-13 20:31] LABS: Anion Gap 9.1 mmol/L (3-11); BUN 10 mg/dL (7-18); CO2 28.9 mmol/L (21.0-32.0); CREATININE 0.6 mg/dL (0.55-1.02); Calcium 8.3 mg/dL (8.5-10.1); Chloride 100 mmol/L (98-107); Estimated GFR 112.73 (mL/min/1.73m2); Glucose 90 mg/dL (74-106); Sodium 138 mmol/L (136-145)
[2023-03-13 20:33] LABS: Potassium 2.5 mmol/L (3.5-5.1)
[2023-03-13] MEDS: Potassium Chloride Liquid 20 MEQ PKT 40 MEQ PO (20:51)
[2023-03-13] MEDS: Lidocaine 2% Viscous 15 ML CUP PO (21:17)
[2023-03-13] MEDS: POTASSIUM CHLORIDE/0.9% NACL 1,000 ML 250 MEQ IV (21:51)
--- NOTE | 2023-03-13 21:52 | NUR.NOTE ---
Nursing Note: Administered Potasium (40meq -> 1000ml) at 250ml/hr to maintain 10meq/h rate. different from order. discussed rate change with prescribing provider.
[2023-03-13] MEDS: Potassium Chloride 20 MEQ TABCR PO (22:46)
== END 2023-03-13 23:39 | disposition home or self-care (01) ==
PROVIDERS: Emergency Provider Registered Nurse Emergency; PCP Nurse Practitioner Family
DX: E87.6 Hypokalemia (principal); R11.2 Nausea with vomiting, unspecified; R19.7 Diarrhea, unspecified; R00.0 Tachycardia, unspecified; R74.01 Elevation of levels of liver transaminase levels
CPT/HCPCS: 36415; 36416; 80048; 80053; 82962; 83690; 96361; 96365; 96366; 96375; 99285; 74177; 81003; 81015; 83605; 83735; 85025; 99284; J2765; J3480; J3490

== ENCOUNTER → 2023-09-03 01:43 | Outpatient (CLI) | payer MEDICAID, SELFPAY ==
--- NOTE | 2023-09-03 07:45 | DI.US_ITS ---
Exam(s) US PELVIS EXAM: US PELVIS CLINICAL HISTORY: Reevaluate ovarian cyst,adnexal cyst,n94.9. TECHNIQUE: Transabdominal and transvaginal pelvic ultrasound was performed using standard protocol. COMPARISON: US US PELVIS TRANSVAGINAL from 02/25/[address] ABDOMEN PELVIS W from 03/13/2023 FINDINGS: UTERUS: Status post hysterectomy. OVARIES: Right: 3.6 x 2.6 x 2.9 cm Cyst or mass: No suspicious cystic or solid masses. There is a 3 x 2.9 x 3.1 cm hypoechoic avascular lesion adjacent to the right ovary. Left: 3.5 x 2.2 x 2.1 cm Cyst or mass: No suspicious cystic or solid masses. DOPPLER: Color: Symmetric and uniform flow to both ovaries. CUL-DE-SAC: Free fluid: None. Other: None. IMPRESSION: 1. Status post hysterectomy. 2. There is a there is a 3.0 x 2.9 x 3.1 cm hypoechoic avascular lesion adjacent to the right ovary. It is adjacent to the right ovary but may arise from the right ovary. This may represent a solid ma ss. A pelvic MRI is recommended for further evaluation. Unexpected findings DATA REPOSITORY:
== END ==
PROVIDERS: PCP Nurse Practitioner Family; Visit Provider Obstetrics & Gynecology
DX: N94.9 Unspecified condition associated with female genital organs and menstrual cycle (principal); Z90.710 Acquired absence of both cervix and uterus
CPT/HCPCS: 76856

== ENCOUNTER 2023-09-19 12:18 | Outpatient (CLI) | payer MEDICAID, SELFPAY ==
[2023-09-19 12:42] LABS: Anion Gap 7.5 mmol/L (3-11); BUN 15 mg/dL (7-18); CO2 28.5 mmol/L (21.0-32.0); CREATININE 0.6 mg/dL (0.55-1.02); Calcium 9.3 mg/dL (8.5-10.1); Chloride 102 mmol/L (98-107); Estimated GFR 112.73 (mL/min/1.73m2); Glucose 110 mg/dL (74-106); Potassium 3.1 mmol/L (3.5-5.1); Sodium 138 mmol/L (136-145)
[2023-09-19 23:00] LABS: CEA <0.5 ng/mL (See Note)
[2023-09-20 08:49] LABS: CA 125 9 U/mL (<30)
[2023-09-20 08:54] LABS: CA 19-9 23 U/mL (<35)
== END 2023-09-19 12:19 | disposition home or self-care (01) ==
LOC: LBO 12:19
PROVIDERS: PCP Nurse Practitioner Family; Visit Provider Obstetrics & Gynecology
DX: G89.29 Other chronic pain (principal); R10.2 Pelvic and perineal pain; R10.9 Unspecified abdominal pain; R19.00 Intra-abdominal and pelvic swelling, mass and lump, unspecified site
CPT/HCPCS: 36415; 80048; 86304; 82378; 86301

== ENCOUNTER → 2023-09-30 01:19 | Outpatient (CLI) | payer MEDICAID, SELFPAY ==
--- NOTE | 2023-09-30 07:30 | DI.MRI_ITS ---
Exam(s) MR PELVIS WO/W EXAM: MR PELVIS WO/W CLINICAL HISTORY: check pelvic mass, right,r19.00 TECHNIQUE: Multiplanar multisequence MRI of Pelvis was performed. CONTRAST MATERIAL: IV Contrast: mL of Dotarem contrast administered. COMPARISON: CT CT ABDOMEN PELVIS W from 03/13/2023 US US PELVIS from 09/03/2023 FINDINGS: Bones: There is no fracture or contusion pattern. No significant joint effusion or labral injury is present. No bone marrow edema is seen. The SI joints and symphysis pubis are well maintained. Hemangi shakeel in the upper sacrum. Musculotendinous structures: Musculotendinous structures demonstrate no abnormality. Intrapelvic structures: Status post hysterectomy. A single follicle is seen on the right ovary. The re are 3 follicles on the left ovary. There is no evidence of mass. There is no suspicious enhancem ent. There is no free fluid in the pelvis. The bladder appears normal. There is no evidence of wal l thickening or mass.. IMPRESSION: Normal appearing bilateral ovarian follicles. No evidence of suspicious mass. DATA REPOSITORY:
[2023-09-30] MEDS: Gadoterate meglumine 20 ML VIAL IVP (10:37)
[2023-09-30] MEDS: Normal Saline Flush 10 ML SYR IJ (10:40)
--- NOTE | 2023-09-30 18:28 | DI.VRAD_ITS ---
PROCEDURE INFORMATION: Exam: MR Pelvis Without and With Contrast Exam date and time: 09/30/2023 10:22 AM Age: 43 years old Clinical indication: Other: Pelvic mass TECHNIQUE: Imaging protocol: Magnetic resonance imaging of the pelvis without and with contrast. COMPARISON: CT ABDOMEN PELVIS W 03/13/2023 5:21 PM FINDINGS: Stomach and bowel: Moderate colonic stool, possibly an element of constipation. Visualized small bowel is unremarkable. Intraperitoneal space: No free fluid. Urinary bladder: Urinary bladder partially contracted but otherwise unremarkable. Reproductive: Hysterectomy. The right ovary measures 3.0 x 1.8 x 2.0 cm. It contains 2 small simple follicles measuring 11 mm and 5 mm. The right adnexa is unremarkable. No mass lesions or adenopathy. The left ovary measures 3.7 x 3.3 x 2.6 cm. It contains 2 peripherally enhancing T1 hypointense T2 hyperintense cysts measuring 1.6 cm and 2.7 cm. These demonstrate fairly thin regular peripherally enhancing crocker on early phase acquisition with no enhancing nodularity or septation. There is also a 1.5 cm irregular partially collapsed appearing cyst in the left ovary probably representing a recently ruptured/involuting follicle. The 2.7 cm cyst in the 1.5 cm partially collapsed involuting cyst show mild fluid complexity with T2 isointense elements, suggesting mildly hemorrhagic cysts. These are within physiologic range for a premenopausal woman, further supported by the fact that they are new since 09/03/2023. No further evaluation is suggested. Lymph nodes: No adenopathy. Bones/joints: No acute osseous abnormalities. 12 mm rounded focal fat versus hemangioma in the right sacral ala, with nearby smaller similar 5 mm focus just posterior to this. There is mildly decreased T1 hypointensity throughout the visualized marrow spaces. This does not reach the hypointensity of skeletal muscle and is most consistent with red marrow hyperplasia secondary to chronic anemia, chronic hypoxia, smoking,etc. Consider clinical/laboratory correlation to more fully exclude evidence of other marrow replacing processes however such as lymphoma/leukemia or myeloma. Small posterior central annular protrusion with annular degeneration or small annular tear at, L4-L5 measuring 3 mm AP, with no canal or foraminal stenosis . At L5-S1 there is posterior central annular tear with small posterior central disc extrusion measuring 3.5 mm AP and extending up to 4 mm inferiorly from the disc margin. No canal or foraminal stenosis. Soft tissues: See Reproductive finding. IMPRESSION: 1. No right adnexal cyst or mass lesion is evident currently. This would favor that the previously identified right adnexal lesion was a cyst which has regressed. 2. There are 3 cysts associated with the left ovary on the current scan, largest 2.7 cm, with a few demonstrating mildly hemorrhagic features. One appears partially collapsed/involuting. These do not require further assessment. 3. No intrapelvic free fluid or adenopathy. 4. Prior hysterectomy. 5. Mild generalized decreased T1 signal in the marrow is felt to be most consistent with red marrow hyperplasia, and is not sufficiently hypointense to specifically suggest other myelophthisic processes, although correlate clinically. Dictated and Authenticated by: Sukhdev Prince MD. Ordering:NNEKA Desai MD
== END ==
PROVIDERS: PCP Nurse Practitioner Family; Visit Provider Obstetrics & Gynecology
DX: N83.02 Follicular cyst of left ovary (principal); N83.01 Follicular cyst of right ovary
CPT/HCPCS: 72197

== ENCOUNTER → 2024-03-11 03:59 | Outpatient (CLI) | payer MEDICAID, SELFPAY ==
--- NOTE | 2024-03-11 07:15 | DI.MAMMO_ITS ---
Exam(s) MAMMO SCREENING EXAM: MAMMO SCREENING CLINICAL HISTORY: screening,z12.39 TECHNIQUE: Bilateral full field digital CC and MLO mammographic images were obtained with 3D tomosyn thesis and utilizing computer aided detection (CAD). COMPARISON: Available for comparison. FINDINGS: Since the prior examination the patient has lost 100 lb. Masses/Architectural Distortion: None seen. Microcalcifications: No suspicious pleomorphic-type are seen. Skin Thickening/Nipple Retraction: None. IMPRESSION: 1. No significant interval change with no specific features of malignancy noted. 2. Unless there is more urgent need, screening mammography is recommended, as per [employer] guidelines. BI-RADS Category 1 - Negative Breast Density - Category C - Heterogeneously dense Breast density category C or D implies that the patient has dense breast tissue. Dense breast tissue is very common and is not abnormal but dense breast tissue can make it harder to find cancer on a ma mmogram. Also, dense breast tissue may increase their breast cancer risk. This information about the result of the mammogram report was provided to the patient to raise their awareness. Use this report when you speak with the patient about their risks for breast cancer, which includes their family hist ory. At that time, you may recommend for more screening tests (Ultrasound or MRI) as they might be us eful based on their risk. A negative radiographic report should not delay biopsy if a dominant or clinically suspicious mass is present. Up to ten percent of cancers are not identified on mammography. A negative report may reinforce clinical impression. Adenosis and dense breasts may obscure an underlying neoplasm. False positive reports average 6 to 10%. Patient will receive a letter notifying them of these results.
== END ==
PROVIDERS: PCP Nurse Practitioner Family; Visit Provider Nurse Practitioner Family
DX: Z12.31 Encounter for screening mammogram for malignant neoplasm of breast (principal)
CPT/HCPCS: 77063; 77067

== ENCOUNTER 2024-03-11 13:07 | Outpatient (CLI) | payer MEDICAID, SELFPAY ==
[2024-03-11 13:32] LABS: ALT 40 U/L (14-59); AST 21 U/L (15-37); Albumin 3.5 g/dL (3.4-5.0); Alkaline Phosphatase 91 U/L (46-116); Anion Gap 7.7 mmol/L (3-11); BUN 14 mg/dL (7-18); Bilirubin, Total 0.6 mg/dL (0.2-1.0); CO2 29.3 mmol/L (21.0-32.0); CREATININE 0.6 mg/dL (0.55-1.02); Calcium 8.4 mg/dL (8.5-10.1); Chloride 105 mmol/L (98-107); Estimated GFR 112.04 (mL/min/1.73m2); Glucose 76 mg/dL (74-106); Potassium 3.9 mmol/L (3.5-5.1); Sodium 142 mmol/L (136-145); TSH (W/Ref FT4) 1.56 uIU/mL (0.36-3.74); Total Protein 6.5 g/dL (6.4-8.2)
[2024-03-11 13:39] LABS: Hemoglobin A1C 4.5 % (<5.7)
[2024-03-12 19:48] LABS: Calculated LDL 73 mg/dL (<100); Cholesterol 159 mg/dL (<200); HDL Cholesterol 75 mg/dL (40-60); Triglyceride 59 mg/dL (<150)
== END 2024-03-11 13:08 | disposition home or self-care (01) ==
LOC: LBO 13:08
PROVIDERS: PCP Nurse Practitioner Family; Visit Provider Nurse Practitioner Family
DX: Z13.220 Encounter for screening for lipoid disorders (principal); Z13.1 Encounter for screening for diabetes mellitus; Z13.29 Encounter for screening for other suspected endocrine disorder; R74.8 Abnormal levels of other serum enzymes
CPT/HCPCS: 36415; 80053; 80061; 83036; 84443

== ENCOUNTER 2024-06-01 06:49 | Day surgery (SDC) | payer MEDICAID, SELFPAY ==
--- NOTE | 2024-05-31 12:36 | PDOC.DSDIS_ITS ---
Date of service: 06/01/24 Time of Service: 08:59 Discharge Plan Disposition Patient Disposition: Home Condition: Good Discharge Details Reason For Visit: screening colonoscopy Attending Provider: Enrique Acevedo Primary Care Provider: Sree High Home Meds and New Rx's Prescriptions: Continued multivit-folic iavo-gkvd-xba C 400-50-500 mcg-mg-mg capsule PO potassium gluconate 500 mg (83 mg) tablet 500 mg PO DAILY (DME) Fusion Multivitamin See Rx Instructions .Route .MEDSUPPLY Rx Instructions: Take 4 tablets daily. Complete trace minerals and vitamins. Complete calcium (1200 mg) and Mg (400 mg), no potassium Emgality Pen 120 mg/mL pen injector 120 mg subcut ONCE Qty: 1 11RF Patient Comments: has not had in a month Rx Instructions: as a single dose prochlorperazine maleate 5 mg tablet See Rx Instructions PO TID PRN (Reason: headache and/or nausea) Qty: 30 3RF Rx Instructions: 5-10 mg orally three times a day PRN; lorazepam 0.5 mg tablet 0.5 mg PO DAILY PRN (Reason: anxiety) Qty: 2 0RF Rx Instructions: Take one tab 30 min before MRI and repeat after 30 minutes if needed. Avoid driving and alcohol. cyclobenzaprine 5 mg tablet 5 mg PO TID PRN (Reason: back pain) Qty: 60 1RF ondansetron HCl 4 mg tablet 4 mg PO Q8H PRN (Reason: nausea and vomiting) Qty: 14 0RF docusate sodium 100 mg capsule 100 mg PO BID Patient Comments: s/p gastric bypass 01/10/23 latanoprost 0.005 % drops 1 drp ophthalmic (eye) QPM Rx Instructions: 1 drop each eye qhs albuterol sulfate [ProAir HFA] 90 mcg/actuation HFA aerosol inhaler 2 puff inhalation Q6H PRN Patient Comments: [facility] [place], [place] Dr. Ho d/c summary polyethylene glycol 3350 17 gram/dose powder 17 g PO DAILY Qty: 510 4RF fluoxetine 20 mg capsule 60 mg PO DAILY Qty: 270 3RF propranolol 20 mg tablet 20 mg PO BID Qty: 180 3RF pantoprazole 20 mg tablet,delayed release (DR/EC) 20 mg PO BID Qty: 180 0RF Discontinued polyethylene glycol 3350 17 gram/dose powder 238 g PO ONCE Qty: 238 0RF Rx Instructions: take per colonoscopy instructions bisacodyl [Dulcolax (bisacodyl)] 5 mg tablet,delayed release (DR/EC) 5 mg PO ONCE Qty: 4 0RF Rx Instructions: take per colonoscopy instructions Discharge Instructions Additional Instructions: Norma, we were able to complete your colonoscopy today without any difficulty. Your prep was adequate, and I could see everything fine. There were no tumors, polyps, or any other obvious abnormalities of the large intestine. With a negative screening colonoscopy, you should consider another one in 10 years to help reduce the likelihood of developing colon cancer. 1. If tolerated, consume a soft, low fiber diet for 1-2 days. 2. Do not drive, drink alcohol, operate machinery, make critical decisions, or do activities that require coordination or balance for 24 hours. 3. Because air was put into your colon during the procedure, expelling air from your rectum (passing gas or farting) is normal. 4. You may not have a bowel movement for 1-3 days because of the colonoscopy prep. This is normal. 5. Go directly to the emergency room if you notice any of the following: Develop chills (warm to touch), or if you have a thermometer and your temperature is above 101 Difficulty breathing or difficultly swallowing Persistent vomiting Severe abdominal pain, other than gas cramps Severe chest pain Black, tarry stools Any bleeding ? exceeding one tablespoon 6. Call your physician if the site where your intravenous was started becomes red, swollen, painful, and warm to touch. 7. Your physician has reviewed your pre-procedure medications. Please continue to take those medications as previously ordered. You will be given specific information/education regarding any changes to your medications before leaving. Activity:: Activity as Tolerated Diet:: As Tolerated Discharge Orders Discharge Orders: Discharge Order (Routine); Ordered 05/31/24 Ordered By: Enrique Acevedo DS: Diagnosis Discharge Diagnosis (1) Encounter for screening colonoscopy: Status: Acute Asessment and Plan: Negative screening colonoscopy
--- NOTE | 2024-05-31 12:38 | COLE_ITS ---
Date of service: 06/01/24 Time of Service: 09:00 Colonoscopy Report Date of procedure: 06/01/24 Pre-op diagnosis general: screening colonoscopy Post-op diagnosis procedure note: other (Negative screening colonoscopy) Procedure: colonoscopy Surgeon: Enrique Acevedo Anesthesia Type: General:No Airway Estimated blood loss (mL): 0 Pathology: none sent Complications: None Disposition: same day Indications: Leandra is a 44 year old woman who needs her first screening colonoscopy Prep: Miralax/Dulcolax Procedure Start Time: 08:35 Procedure End Time: 08:51 Retraction Time: 8 Findings: Negative screening colonoscopy Procedure Description: After the induction of anesthesia, and with the patient in left lateral decubitus position, I began by performing an external anorectal exam.? Perineum and skin were normal, as was the anal verge.? There are some perianal skin tags consistent with old hemorrhoids.? Next, I performed a digital rectal exam.? I did not appreciate any abnormal findings.? Next, I advanced a colonoscope into the rectal vault.? I performed retroflexion.? This appeared normal.? Using insufflation, I then advanced the colonoscope beyond the rectal folds and into the sigmoid colon before advancing towards the cecum.? The scope was noted to be in the cecum by identification of the ileocecal valve and appendiceal orifice.? I then began withdrawing the colonoscope using repeated irrigation as necessary for full evaluation of the colonic mucosa. ?Once the scope was withdrawn to the level of the rectum, great care was taken to examine portions of the rectal folds.? I did not see any signs of tumors, polyps, or any other pathology. Finally, the scope was withdrawn and the patient was brought to the same-day surgery recovery unit as the anesthetic wore off. ?The findings and instructions were shared with the patient prior to discharge. [place] Bowel Prep [place] Bowel Prep Right Colon: 2 Left Colon: 3 Transverse Colon: 3 Total Score: 8
--- NOTE | 2024-06-01 06:28 | W.ANESPRE ---
General Info Date of Service Date Performed: 06/01/24 Height: 5 ft 4 in Weight: 57.323 kg Body Mass Index (BMI): 21.7 Surgical Procedure: Operation Date: 06/01/24 08:20 Proposed Procedure Side Surgeon wilfredo Acevedo MD Meds Allergies and Home Medications Allergies Allergy/AdvReac Type Severity Reaction Status Date / Time No Known Drug Allergies Allergy Other (See Verified 06/01/24 07:12 Comment) Home Medication ?Medication ?Instructions ?Recorded cyclobenzaprine 5 mg tablet 5 mg PO TID PRN back pain #60 tabs 05/01/21 ondansetron HCl 4 mg tablet 4 mg PO Q8H PRN nausea and 07/03/22 vomiting #14 tabs albuterol sulfate 90 mcg/actuation 2 puff inhalation Q6H PRN 01/14/23 aerosol inhaler (ProAir HFA) docusate sodium 100 mg capsule 100 mg PO BID Constipation 01/14/23 latanoprost 0.005 % eye drops 1 drp ophthalmic (eye) QPM 01/14/23 polyethylene glycol 3350 17 17 g PO DAILY #510 grams 01/24/23 gram/dose oral powder Fusion Multivitamin 06/06/23 fluoxetine 20 mg capsule 60 mg (3 x 20 mg) PO DAILY #270 07/17/23 caps propranolol 20 mg tablet 20 mg PO BID #180 tabs 09/25/23 pantoprazole 20 mg tablet,delayed 20 mg PO BID #180 tabs 02/05/24 release galcanezumab-gnlm 120 mg/mL 120 mg subcut ONCE #1 mL 02/19/24 subcutaneous pen injector (Emgality Pen) lorazepam 0.5 mg tablet 0.5 mg PO DAILY PRN anxiety #2 tabs 02/19/24 prochlorperazine maleate 5 mg See Rx Instructions PO TID PRN 02/19/24 tablet headache and/or nausea #30 tabs multivitamin-folic biyz-zqxh-apz C cap PO 05/12/24 400 mcg-50 mg-500 mg capsule potassium gluconate 500 mg (83 mg) 500 mg PO DAILY 05/12/24 tablet Current Visit Medications: Current Medications Generic Name Dose Route Start Last Admin Trade Name Freq PRN Reason Stop Dose Admin Hyoscyamine Sulfate 0.125 mg 05/31/24 12:39 Hyoscyamine 0.125 Mg Sl/Oral/Chew SL 06/30/24 12:38 DIRECTED PRN Ringer's Solution 1,000 mls @ 80 mls/hr 06/01/24 06:00 IV 06/28/24 23:59 [facility] IV Miscellaneous Supplies 1 each 06/01/24 06:00 Iv Access IV 06/28/24 23:59 DIRECTED SUNNY Sodium Chloride 0 ml 06/01/24 06:00 Normal Saline Flush 10 Ml Syr IV 06/28/24 23:59 PRN PRN Sodium Chloride 0 ml 06/01/24 06:00 Normal Saline 10 Ml Vial IJ 06/28/24 23:59 DIRECTED PRN Sterile Water 0 ml 06/01/24 06:00 Water,Injection,Sterile 10 Ml Vial IJ 06/28/24 23:59 DIRECTED PRN PFSH Active Problems Active Problems: Problem Status Onset Code Encounter for screening colonoscopy Acute Z12.11 Elevated liver enzymes Acute R74.8 Nystagmus Acute H55.00 Pelvic mass Acute R19.00 Adnexal cyst Acute N94.9 Abdominal pain Acute R10.9 Obstructive sleep apnea Chronic G47.33 Left breast lump Acute N63.20 Ganglion cyst Acute M67.40 Chronic headache Acute R51.9, G89.29 Obesity Chronic E66.9 Vitamin D deficiency Acute E55.9 Facial tic Acute F95.9 Irritable bowel syndrome Chronic K58.9 OAB (overactive bladder) Acute N32.81 Kidney stone Chronic N20.0 Migraine Chronic G43.909 Open-angle glaucoma Acute H40.10X0 Mood disorder Acute F39 Depression Acute 12/02/17 F32.9 Chronic pelvic pain in female Acute 08/10/15 R10.2, G89.29 Back pain Acute 01/03/16 M54.9 Medical History Medical History Chronic headaches as per pt Endometriosis multiple foci in cul[place]ac noted at time of laparoscopy 10/21/14. 11/26/14 Rx with DepoProvera. Menorrhagia Started on OCPs 07/2013 Mental disorder on disability. Plantar fasciitis, right as per pt Surgical History Surgical History Appendectomy Cholecystectomy Diagnostic Laproscopy (10/21/14) Bilateral laparoscopic salpingectomy with ablation of endometriosis implants in the cul-de-sac. Gastric bypass status for obesity [facility] Dr. Ho 01/10/23 Laparoscopic [place] Gastric Bypass Ligation of fallopian tube Open Carpal Tunnel release 08/2013 - recurrent symptoms - [facility] 08/01/20 - R hand. 10/2013 L hand. Trigger Finger release 08/2013 R hand Vaginal hysterectomy (05/12/15) [facility]. Nl pathology. Tobacco Smoking/Tobacco Use Status: Never Passive smoking exposure: Yes Second hand exposure: Yes Alcohol Alcohol Intake: never Substance Use Substance use: Never Substance use type: does not use Prental History History 4 Para 4 Hx # Term Pregnancies Multiple births Hx # Pregnancies Ectopic pregnancies AB induced Hx Number of Living Children AB spontaneous Vital Signs and Lab Results Vital Signs Most Recent Vital Signs in EMR: Temp Pulse Resp BP Pulse Ox 36.3 C L 59 L 16 109/78 99 06/01/24 07:17 06/01/24 07:17 06/01/24 07:17 06/01/24 07:17 06/01/24 07:17 Lab Results Blood Type / Crossmatch: No Data to Display Complete Blood Count: No Data to Display Complete Metabolic Panel: No Data to Display Liver Function Panel: No Data to Display Coagulation Panel: No Data to Display Cardiac Panel: No Data to Display Arterial Blood Gas: No Data to Display Venous Blood Gas: No Data to Display Pancreas Panel: No Data to Display Thyroid Panel: No Data to Display Infectious Disease: No Data to Display Blood Cultures: No Data to Display Toxicology Panel: No Data to Display Panel: No Data to Display Imaging and Studies Imaging and Studies Study information below may be from another EMR and interpreted by another provider. Please see original notes in EMR for more complete details. Stress Test Summary: 02/01: LVEF 52%. no defects noted. Anesthesia Assessment and Plan Anesthesia History Personal History: No History of Anesthesia Complications Family History: No Family History of Anesthesia Complications Exercise Tolerance Exercise Tolerance: Metabolic Equivalents>4 Cardiac & Pulmonary Exam Cardiac Exam: Normal S1/S2 Heart Sounds Pulmonary Exam: Clear Bilateral Breath Sounds Implantable Cardiac Device Does patient have a Pacemaker or an ICD?: No Airway Exam Known Difficult Airway: No Mallampati Class: 2 Mouth Opening: Normal (> 3cm) Thyromental Distance: Greater than 3 cm Neck Range of Motion: Full ROM Neck Circumference: Normal Teeth Condition: Normal Dentition ASA Classification ASA Score: ASA 2 Emergency Case?: No NPO Status NPO Status: NPO Clears >2 hours, Solids >8 hours Status Status: History of Hysterectomy Anesthesia Plan Resuscitation Status: Full Code Anesthesia Technique: General Anesthesia Airway Planned: Natural Airway Monitors Used: Standard Monitors Preoperative Comments:: 44 yo female for colo. Sig PMHx: asthma, CHUN, depression/anxiety, migraine, never smoker. Previous Anes: - carpal tunnel, prop, natural airway, eliezer block, no issues. - cysto, fent/midaz, prop, LMA 4, no issues.
--- OUTSIDE RECORDS SUMMARY | 2024-06-01 06:51 | XMS_ITS | Continuity of Care Document ---
Author Organization [facility] Address [address] [place] [address] Encounter [place] Date(s): 02/26/23 - 02/27/23 [facility] [address] [place] [address] us Discharge Disposition: Home or Self Care Attending Physician: Umair Glasgow MD Admitting Physician: Umair Glasgow MD Allergies, Adverse Reactions, Alerts No Known Medication Allergies Functional Status 02/26/23 Family Member Travel History No recent t ravel Recent Travel History No recent travel Other exposure to Infectious Disease Non e Medications FLUoxetine 0 Refill(s) Start Date: 12/16/22 Status: Ordered LaMICtal 0 Refill(s) Start Date: 12/16/22 Status: Ordered oxybutynin 0 Refill(s) Start Date: 12/16/22 Status: Ordered propranolol 0 Refill(s) Start Date: 12/16/22 Status: Ordered Tylenol 8 Hour 650 mg oral tablet, extended release 650 mg = 1 tab, Oral, every 8 hr, PRN as needed for fever, # 30 tab, 0 Refill(s), Pharmacy: [id number], 163, cm, 12/16/22 12:46:00 EST, Height/Length Dosing, 100, kg, 12/16/22 12:46:00 EST,Weight Dosing Start Date: 12/16/22 Status: Ordered Vitamin D with Minerals oral tablet 0 Refill(s) Start Date: 02/11/23 Status: Ordered Results Laboratory List Name Date CBC w/ Diff 02/26/23 Comprehensive Metabolic Panel (CMP) 02/26 Lactic Acid 02/26/23 Lipase Level 02/26/23 Magnesium Level 02/26/23 Automated Diff 02/26/23 Most recent to oldest [Reference Range]: 1 WBC [5.0-10.0 x10^3/mcL] 7.1 x10^3/mcL (02/26/23 9:43 PM) RBC [4.1-5.3 x10^6/mcL] 4.7 x10^6/mcL (02/26/23 9:43 PM) Neutro Auto [40.0-75.0 %] 62.5 % (02/26/23 9:43 PM) Lymph Auto [20.0-50.0 %] 26.8 % (02/26/23 9:43 PM) [place] Auto [2.0-15.0 %] 7.2 % (02/26/23 9:43 PM) Basophil Auto [0.0-1.0 %] 0.3 % (02/26/23 9:43 PM) BUN [7-18 mg/dL] 11 mg/dL (02/26/23 9:43 PM) Glucose Level [74-106 mg/dL] 101 mg/dL (02/26/23 9:43 PM) Potassium Level [3.5-5.1 mmol/L] 2.7 mmo l/L *LOW* (02/26/23 9:43 PM) MCV [80.0-96.0] 84.0 (02/26/23 9:43 PM) AST [15-37 unit/L] 28 unit/L (02/26/23 9:43 PM) ALT [14-59 unit/L] 32 unit/L (02/26/23 9:43 PM) MCHC [31.0-35.0 g/dL] 34.9 g/dL (02/26/23 9:43 PM) Sodium Level [136-145 mmol/L] 136 mmol/L (02/26/23 9:43 PM) Hct [37.0-47.0 %] 39.3 % (02/26/23 9:43 PM) Lipase Level [16-77 unit/L] 158 unit/L *HI* (02/26/23 9:43 PM) Calcium Level [8.5-10.1 mg/dL] 9.3 mg/dL (02/26/23 9:43 PM) Albumin Level [3.4-5.0 g/dL] 3.8 g/dL (02/26/23 9:43 PM) Protein Total [6.4-8.2 g/dL] 7.4 g/dL (02/26/23 9:43 PM) MCH [26.0-32.0 pg] 29.3 pg (02/26/23 9:43 PM) Magnesium Level [1.8-2.4 mg/dL] 1.5 mg/d L *LOW* (02/26/23 9:43 PM) Neutro Absolute 4.4 x10^3/mcL *NA* (02/26/23 9:43 PM) Bilirubin Total [0.2-1.0 mg/dL] 0.7 mg/d L (02/26/23 9:43 PM) Hgb [12.0-16.0 g/dL] 13.7 g/dL (02/26/23 9:43 PM) Alk Phos [46-146 unit/L] 113 unit/L (02/26/23 9:43 PM) Platelets [130-450 x10^3/mcL] 353 x10^3/ mcL (02/26/23 9:43 PM) CO2 [21-32 mmol/L] 23 mmol/L (02/26/23 9:43 PM) Lactic Acid Lvl [0.7-2.0 mmol/L] 1.1 mmo l/L (02/26/23 9:43 PM) eGFR Non-AA [>=60] 95 (02/26/23 9:43 PM) eGFR AA [>=60] 95 (02/26/23 9:43 PM) Chloride Level [98-107 mmol/L] 97 mmol/L *LOW* (02/26/23 9:43 PM) RDW-CV [11.7-17.0 %] 14.6 % (02/26/23 9:43 PM) Imm Gran Auto [0.0-0.9 %] 0.3 % (02/26/23 9:43 PM) Creatinine Level [0.55-1.02 mg/dL] 0.79 mg/dL (02/26/23 9:43 PM) Eos, Auto [1.0-6.0 %] 2.9 % (02/26/23 9:43 PM) Vital Signs Most recent to oldest [Reference Range]: 1 Temperature Temporal Artery [36-38 Deg C ] 37 Deg C (02/26/23 9:07 PM) Peripheral Pulse Rate [60-100 bpm] 112 b pm *HI* (02/26/23 9:07 PM) Respiratory Rate [12-24 br/min] 20 br/mi n (02/26/23 9:07 PM) Blood Pressure [90-140/60-90 mmHg] 127/9 9mmHg (02/26/23 9:07 PM) Weight 85.50 kg (02/26/23 9:07 PM) Weight Dosing 85.50 kg (02/26/23 9:18 PM) Height 163.000 cm (02/26/23 9:07 PM) Height/Length Dosing 163.000 cm (02/26/23 9:18 PM) Body Mass Index 32.000 kg/m2 (02/26/23 9:07 PM) Social History Social History Type Response Tobacco Never tobacco user T obacco Use:. Sex Female Hospital Discharge Instructions Patient Education 02/27/2023 01:43:54 Abdominal Pain, Adult Abdominal Pain, Adult Pain in the abdomen (abdominal pain) can be caused by many things. Often, abdominal pain is not serious and it gets better with no treatment or by being treated at home. However, sometimes abdominal pain is serious. Your health care provider will ask questions about your medical history and do a physical exam to try to determine the cause of your abdominal pain. Follow these instructions at home: Medicines ??? Take osja-pbd-dzejnta and prescription medicines only as told by your health care provider. ??? Do not take a laxative unless told by your health care provider. General instructions ??? Watch your condition for any changes. ??? Drink enough fluid to keep your urine pale yellow. ??? Keep all follow-up visits as told by your health care provider. This is important. Contact a health care provider if: ??? Your abdominal pain changes or gets worse. ??? You are not hungry or you lose weight without trying. ??? You are constipated or have diarrhea for more than 2???3 days. ??? You have pain when you urinate or have a bowel movement. ??? Your abdominal pain wakes you up at night. ??? Your pain gets worse with meals, after eating, or with certain foods. ??? You are vomiting and cannot keep anything down. ??? You have a fever. ??? You have blood in your urine. Get help right away if: ??? Your pain does not go away as soon as your health care provider told you to expect. ??? You cannot stop vomiting. ??? Your pain is only in areas of the abdomen, such as the right side or the left lower portion of the abdomen. Pain on the right side could be caused by appendicitis. ??? You have bloody or black stools, or stools that look like tar. ??? You have severe pain, cramping, or bloating in your abdomen. ??? You have signs of dehydration, such as: ??? Dark urine, very little urine, or no urine. ??? Cracked lips. ??? Dry mouth. ??? Sunken eyes. ??? Sleepiness. ??? Weakness. ??? You have trouble breathing or chest pain. Summary ??? Often, abdominal pain is not serious and it gets better with no treatment or by being treated at home. However, sometimes abdominal pain is serious. ??? Watch your condition for any changes. ??? Take iagx-jdw-ezasnxs and prescription medicines only as told by your health care provider. ??? Contact a health care provider if your abdominal pain changes or gets worse. ??? Get help right away if you have severe pain, cramping, or bloating in your abdomen. This information is not intended to replace advice given to you by your health care provider. Make sure you discuss any questions you have with your health care provider. Document Revised: 12/23/2020 Document Reviewed: 03/14/2020 [employer] Patient Education ?? 2021 [employer]. Follow Up Care 02/26/2023 21:07:01 With:Follow up with primary care provider Address:Unknown When:1 month Physician Emergency department Note * Umair Glasgow MD: PERFORM Event Display: ED Note Physician Authored Date: [id number] PARTHA VELOZ :1980 Age:42 years Sex:Female Visit Date:02/26/2023 Basic Information Time Seen: Umair Glasgow MD / 02/26/2023 21:19 Chief Complaint Pt. presents with dull periumbillical pain since she [place] [facility] [place] Pt.endorses decreased PO intace since her post op period. Pt. with baseline nausea, denies emesis. endorses constipation and oligurea. 03/12 barium swallow jaime History Of Present Illness: 42-year-old female past medical history??fibromyalgia, endometriosis,??CHUN, obesity, status post??gastric bypass back in December presents with epigastric abdominal pain. ??She has been seen in the ER several times in??the recent past??for the same complaint. ??No vomiting but having nausea otherwise tolerating small amounts of p.o. liquid and solid foods.?? No lower abdominal pain dysuria feversor any other symptoms. Review of Systems: abdominal pain Physical Exam Vitals & Measurements T:??37?C ??(Temporal Artery)?? HR:??112??(Peripheral)?? RR:??20?? BP:??127/99?? SpO2:??97%?? HT:??163.000??cm?? WT:??85.50??kg?? BMI:??32.000?? General: Alert and oriented, well nourished,?No??acute distress Eye: PERRL, EOMI,?Normal?conjunctiva HENT: Normocephalic Lungs: Clear to auscultation and percussion,?Non-labored?? respiration Heart:?Normal? rate,?Regular??rhythm Abdomen: Soft,??only minimal reproducible epigastric tenderness, nonperitoneal Medical Decision Makin-year-old female??presents with epigastric abdominal pain. ??37, 127/99, 112, 20, 97%. ??She is status post??gastric bypass surgery back in December done at [facility]. ??She has been in the ER a few times with similar presentation in the past. ??Abdomen is soft nonperitoneal, only minimal reproducible epigastric pain. ??She was given IV fluids. ??Her labs are unremarkable acutely, lipase is elevated but??not 3 times the upper limit of normal.?? CT abdomen pelvis with oral contrast??was obtained, timing of the oral contrast was slightly off, however it is unremarkable. ??On repeat examination patient is asymptomatic. ??Exact etiology of her symptoms is not entirely clear. ??Recommended follow-up with her surgical team. ??Discharged stable condition. Procedure No Qualifying Data Patient Education Abdominal Pain, Adult Follow Up With When Contact Information Follow up with primary care provider Within 1 month Additional Instructions: Medication Reconciliation Unchanged acetaminophen (Tylenol 8 Hour 650 mg oral tablet, extended release)1 tab Oral (given by mouth) every 8 hours as needed as needed for fever. Refills: 0. ?? FLUoxetine ?? lamoTRIgine (LaMICtal) ?? multivitamin with minerals (Vitamin D with Minerals oral tablet) ?? oxybutynin ?? propranolol Problem List/Past Medical History Ongoing No qualifying data Historical No qualifying data Medication Administration Given !-Zofran, 4 mg, IV Push NS bolus, 1000 mL, IV Piggyback Allergies No Known Medication Allergies Social History Alcohol Never Electronic Cigarette/Vaping Electronic Cigarette Use: Never. Substance Use Never Tobacco Never tobacco user Tobacco Use:. Lab Results CBC and Differential?? LATEST RESULTS?? HISTORICAL RESULTS?? WBC?? 02/26/23 21:43?? 7.1?? 02/11/23?? 8.7?? RBC?? 02/26/23 21:43?? 4.7?? 02/11/23?? 4.9?? Hgb?? 02/26/23 21:43?? 13.7?? 02/11/23?? 14.4?? Hct?? 02/26/23 21:43?? 39.3?? 02/11/23?? 41.0?? MCV?? 02/26/23 21:43?? 84.0?? 02/11/23?? 83.7?? MCH?? 02/26/23 21:43?? 29.3?? 02/11/23?? 29.4?? MCHC?? 02/26/23 21:43?? 34.9?? 02/11/23?? 35.1 ??High?? RDW-CV?? 02/26/23 21:43?? 14.6?? 02/11/23?? 14.3?? Platelets?? 02/26/23 21:43?? 353?? 02/11/23?? 349?? Neutro Auto?? 02/26/23 21:43?? 62.5?? 02/11/23?? 68.3?? Lymph Auto?? 02/26/23 21:43?? 26.8?? 02/11/23?? 21.7?? [place] Auto?? 02/26/23 21:43?? 7.2?? 02/11/23?? 6.3?? Eos, Auto?? 02/26/23 21:43?? 2.9?? 02/11/23?? 3.3?? Basophil Auto?? 02/26/23 21:43?? 0.3?? 02/11/23?? 0.2?? Imm Gran Auto?? 02/26/23 21:43?? 0.3?? 02/11/23?? 0.2?? Neutro Absolute?? 02/26/23 21:43?? 4.4?? 02/11/23?? 5.9? Routine Chemistry?? LATEST RESULTS?? HISTORICAL RESULTS?? Sodium Level?? 02/26/23 21:43?? 136?? 02/11/23?? 137?? Potassium Level?? 02/26/23 21:43?? 2.7 ??Low?? 02/11/23?? 2.9 ??Low?? Chloride Level?? 02/26/23 21:43?? 97 ??Low?? 02/11/23?? 100?? CO2?? 02/26/23 21:43?? 23?? 02/11/23?? 21?? Alk Phos?? 02/26/23 21:43?? 113?? 02/11/23?? 113?? AST?? 02/26/23 21:43?? 28?? 02/11/23?? 21?? ALT?? 02/26/23 21:43?? 32?? 02/11/23?? 27?? BUN?? 02/26/23 21:43?? 11?? 02/11/23?? 7?? Glucose Level?? 02/26/23 21:43?? 101?? 02/11/23?? 100?? Creatinine Level?? 02/26/23 21:43?? 0.79?? 02/11/23?? 0.86?? eGFR AA?? 02/26/23 21:43?? 95?? 02/11/23?? 85?? eGFR Non-AA?? 02/26/23 21:43?? 95?? 02/11/23?? 85?? Calcium Level?? 02/26/23 21:43?? 9.3?? 02/11/23?? 9.6?? Protein Total?? 02/26/23 21:43?? 7.4?? 02/11/23?? 8.0?? Albumin Level?? 02/26/23 21:43?? 3.8?? 02/11/23?? 4.1?? Bilirubin Total?? 02/26/23 21:43?? 0.7?? 02/11/23?? 0.7?? Lactic Acid Lvl?? 02/26/23 21:43?? 1.1? Lipase Level?? 02/26/23 21:43?? 158 ??High?? 02/11/23?? 169 ??High?? Magnesium Level?? 02/26/23 21:43?? 1.5 ??Low? Electronically Signed on 02/27/23 02:44 AM Umair Glasgow MD Emergency department Discharge instructions * Umair Glasgow MD: PERFORM Event Display: ED Discharge Information Authored Date: [id number] PARTHA VELOZ :1980 Age:42 years Sex:Female Visit Date:02/26/2023 Discharge Instructions We would like to thank you for allowing us to assist you with your healthcare needs. The following includes patient education materials and information regarding your injury/illness. Discharge Vitals Temperature??(Temporal Artery) 98.6 ??F (37 ??C) Heart Rate??(Peripheral) 112 Respiratory Rate?? 20 Blood Pressure?? 127/99?? Height?? 64.17 in (163.000 cm) Weight?? 188.53 lb (85.50 kg) BMI?? 32.000 Allergies No Known Medication Allergies What to Do Next You Need to Schedule the Following Appointments Follow Up with??Follow up with primary care provider When:??Within 1 month You were treated today on an emergency basis; it may be pyle to contact your primary care provider to notify them of your visit today. You may have been referred to your regular doctor or a specialist, please follow up as instructed. If your condition worsens or you can't get in to see the doctor, contact the Emergency Department. Medications What How Much When Why Instructions Next Dose Unchanged acetaminophen (Tylenol 8 Hour 650 mg oral tablet, extended release) 1 tab Oral (given by mouth) Every 8 hours as needed for as needed for fever Periapical abscess Unchanged FLUoxetine Unchanged lamoTRIgine (LaMICtal) Unchanged multivitamin with minerals (Vitamin D with Minerals oral tablet) Unchanged oxybutynin Unchanged propranolol Education Materials Abdominal Pain, Adult Pain in the abdomen (abdominal pain) can be caused by many things. Often, abdominal pain is not serious and it gets better with no treatment or by being treated at home. However, sometimes abdominal pain is serious. Your health care provider will ask questions about your medical history and do a physical exam to try to determine the cause of your abdominal pain. Follow these instructions at home: Medicines ? Take rnnz-kcx-xtzxejz and prescription medicines only as told by your health care provider. ? Do not take a laxative unless told by your health care provider. General instructions ? Watch your condition for any changes. ? Drink enough fluid to keep your urine pale yellow. ? Keep all follow-up visits as told by your health care provider. This is important. Contact a health care provider if: ? Your abdominal pain changes or gets worse. ? You are not hungry or you lose weight without trying. ? You are constipated or have diarrhea for more than 2???3 days. ? You have pain when you urinate or have a bowel movement. ? Your abdominal pain wakes you up at night. ? Your pain gets worse with meals, after eating, or with certain foods. ? You are vomiting and cannot keep anything down. ? You have a fever. ? You have blood in your urine. Get help right away if: ? Your pain does not go away as soon as your health care provider told you to expect. ? You cannot stop vomiting. ? Your pain is only in areas of the abdomen, such as the right side or the left lower portion of the abdomen. Pain on the right side could be caused by appendicitis. ? You have bloody or black stools, or stools that look like tar. ? You have severe pain, cramping, or bloating in your abdomen. ? You have signs of dehydration, such as: ? Dark urine, very little urine, or no urine. ? Cracked lips. ? Dry mouth. ? Sunken eyes. ? Sleepiness. ? Weakness. ? You have trouble breathing or chest pain. Summary ? Often, abdominal pain is not serious and it gets better with no treatment or by being treated at home. However, sometimes abdominal pain is serious. ? Watch your condition for any changes. ? Take wjog-qcc-txselyj and prescription medicines only as told by your health care provider. ? Contact a health care provider if your abdominal pain changes or gets worse. ? Get help right away if you have severe pain, cramping, or bloating in your abdomen. This information is not intended to replace advice given to you by your health care provider. Make sure you discuss any questions you have with your health care provider. Document Revised: 12/23/2020 Document Reviewed: 03/14/2020 [employer] Patient Education ?? 2021 [employer] Tests Performed Medications and Immunizations Administered Given !-Zofran, 4 mg, IV Push NS bolus, 1000 mL, IV Piggyback Lab Test Name Test Result Date/Time WBC 7.1 x10^3/mcL 02/26/2023 21:43 EDT RBC 4.7 x10^6/mcL 02/26/2023 21:43 EDT Hgb 13.7 g/dL 02/26/2023 21:43 EDT Hct 39.3 % 02/26/2023 21:43 EDT MCV 84.0 02/26/2023 21:43 EDT MCH 29.3 pg 02/26/2023 21:43 EDT MCHC 34.9 g/dL 02/26/2023 21:43 EDT RDW-CV 14.6 % 02/26/2023 21:43 EDT Platelets 353 x10^3/mcL 02/26/2023 21:43 EDT Neutro Auto 62.5 % 02/26/2023 21:43 EDT Lymph Auto 26.8 % 02/26/2023 21:43 EDT [place] Auto 7.2 % 02/26/2023 21:43 EDT Eos, Auto 2.9 % 02/26/2023 21:43 EDT Basophil Auto 0.3 % 02/26/2023 21:43 EDT Imm Gran Auto 0.3 % 02/26/2023 21:43 EDT Neutro Absolute 4.4 x10^3/mcL 02/26/2023 21:43 EDT Sodium Level 136 mmol/L 02/26/2023 21:43 EDT Potassium Level 2.7 mmol/L 02/26/2023 21:43 EDT Chloride Level 97 mmol/L 02/26/2023 21:43 EDT CO2 23 mmol/L 02/26/2023 21:43 EDT Alk Phos 113 unit/L 02/26/2023 21:43 EDT AST 28 unit/L 02/26/2023 21:43 EDT ALT 32 unit/L 02/26/2023 21:43 EDT BUN 11 mg/dL 02/26/2023 21:43 EDT Glucose Level 101 mg/dL 02/26/2023 21:43 EDT Creatinine Level 0.79 mg/dL 02/26/2023 21:43 EDT eGFR AA 95 02/26/2023 21:43 EDT eGFR Non-AA 95 02/26/2023 21:43 EDT Calcium Level 9.3 mg/dL 02/26/2023 21:43 EDT Protein Total 7.4 g/dL 02/26/2023 21:43 EDT Albumin Level 3.8 g/dL 02/26/2023 21:43 EDT Bilirubin Total 0.7 mg/dL 02/26/2023 21:43 EDT Lactic Acid Lvl 1.1 mmol/L 02/26/2023 21:43 EDT Lipase Level 158 unit/L 02/26/2023 21:43 EDT Magnesium Level 1.5 mg/dL 02/26/2023 21:43 EDT Patient/Sale Professional [employer] Signature Patient Name:PARTHA VELOZ I have received this information and my questions have been answered. Patient/Sale Professional [employer] Name: Patient/Sale Professional [employer] Signature: Relationship to Patient: Witness Name/Signature: Date: Electronically Signed on: 02/27/2023 02:44 EDTSigned by:[facility] Emergency department Note * Remedios Rosas: PERFORM Event Display: ED Notes Authored Date: [id number] Patient Care team information Care Team Personnel Name: Danni Alarcon RN Position: Nurse Member Role: ED Nurse Name: Umair Glasgow MD Position: Physician Member Role: ED Physician Address: Address: [facility] [address] [place] [address]- Care Team Related Persons Name: JAXON GREER
--- OUTSIDE RECORDS SUMMARY | 2024-06-01 06:51 | XMS_ITS | Encounter Summary ---
Author Organization [facility] Address [address] [place] [address] Care Team Providers Care Discharge Rn Name Role Phone Debby Puri MD Primary Care Provider [phone] Encounter Details Date Type Department Care Team (Late st Contact Info) Description 12/28/2021 Lab Requisition [facility] Pathology & Laboratory Medicine - [facility] [address] [place] [address] Outr Resulting Lab, Provider Social History Tobacco Use Types Packs/Day Years Used Date Smoking Tobacco: Never Assessed Interpersonal Safety Answer Date Record ed Physically Hurt Never 06/19/2020 Verbally Threaten Not on file 06/19/2020 Sex and Gender Information Value Date Recorded Sex Assigned at Not on file Gender Identity Not on file Sexual Orientation Not on file documented as of this encounter Plan of Treatment Not on file documented as of this encounter Procedures Procedure Name Priority Date/Time Associated Diagnosis Comments HIV 1/2 ANTIGEN AND ANTIBODY, 4TH GENERATION Routine 12/28/2021 9:10 EST documented in this encounter Results * HIV 1/2 ANTIGEN AND ANTIBODY, 4TH GENERATION (12/28/2021 9:10 EST) HIV 1 and 2 Antibody/p24 Antigen, 4th Generation Negative Negative 12/29/2021 9:47 EST [facility] Comment:If acute HIV-1 infec tion is suspected in a high risk patient, submit plasma specimen for HIV-1 RNA quantitation test. Blood VENOUS BLOOD / Unknown 12/28/2021 9:10 EST 12/28/2021 17:07 EST Narrative [facility] - 12/29/2021 9:47 EST Fourth Generation assay performed on the Siemens Centaur XPT. Provider Outr Resulting Lab IMMUNOLOGY A ND SEROLOGY ORDERABLES [facility] [address] [place] [address] documented in this encounter Visit Diagnoses Not on filedocumented in this encounter Care Teams Discharge Rn Relationship Specialty Start Date End Date Debby Puri MD [address] [place] [address] PCP - General 09/11/13 documented as of this encounter
--- OUTSIDE RECORDS SUMMARY | 2024-06-01 06:51 | XMS_ITS | Encounter Summary ---
Author Organization [facility] Address [address] [place] [address] Care Team Providers Care Automotive Title Clerk Name Role Phone Gatito Crawford MD Primary Care Provider Unavail able Encounter Details Date Type Department Care Team (Late st Contact Info) Description 09/08/2013 Results Only [facility] Laboratory Services - [facility] ([facility]) [address] [place], [place] [id number] Moo Painting MD [address] [place] [address] [place] [address] Social History Tobacco Use Types Packs/Day Years Used Date Smoking Tobacco: Never Assessed Sex and Gender Information Value Date Recorded Sex Assigned at Not on file Gender Identity Not on file Sexual Orientation Not on file documented as of this encounter Plan of Treatment Not on file documented as of this encounter Procedures Procedure Name Priority Date/Time Associated Diagnosis Comments SURGICAL PATHOLOGY Routine 09/08/2013 9:54 EDT documented in this encounter Results * SURGICAL PATHOLOGY (09/08/2013 9:54 EDT) Pathology Report: SURGICAL PATHOLOGY REPORT Reports generated via electronic interface contain original data; however they are lacking the format of the original report. Caution should be taken when reading/interpreting unformatted reports. Name: ? LEANDRA VELOZ ? Accession #: ? [id number] ? : ? 1980 (Age: 33) ??F ? Collect Date: ? 09/08/2013 ? Location: ? [facility] ? Receive Date: ? 09/09/2013 ? Provider: MOO PAINTING MD Copy to: LAMAR VALVERDE MD ? Final Pathologic Diagnosis: SKIN OF FINGER, RIGHT MIDDLE, EXCISION: - Dense nodular fibrosis, most consistent with fibroma. ??See comment. Comment: Present within the dermis are dense collagen bundles with associated bland spindle cells. A fibroma is favored. ??Immunohistochemical stains were attempted, but interpretation was limited due to technical issues. Specifically, the lesional tissue was not well represented in sections prepared for Alpha-smooth muscle actin (1A4, Sigma), desmin (D33, Thermo Scientific) and Factor XIII A (AC-1A1, Thermo Scientific). The patient is not charged for these stains. Fully developed features of a dermatofibroma are not noted, but the periphery of the lesion is not fully represented. This case has been reviewed by Dr. Annette Gomez, who concurs with the above diagnosis. ??(Dr. Garcia)/lizbet ? NOTE: ??One or more of the reagents used in immunohistochemical testing in this case may not have been cleared or approved by the U.S. Food and Drug Administration (FDA). ??The FDA has determined that such clearance or approval is not necessary. ??These tests are used for clinical purposes. ??They should not be regarded as investigational or for research. ??These reagents' performance characteristics have been determined by [facility]. ??This laboratory is certified under the Clinical Laboratory Improvement Amendments of 1988 (CLIA-88) as qualified to perform high complexity clinical laboratory testing. ?? Document reviewed and electronically signed by: MARY LOU GARCIA MD Report ??Date: 09/16/2013 14:53 By the signature above, the attending physician certifies that he/she has personally conducted a gross and/or microscopic examination of the described specimens and rendered or confirmed the above diagnosis. Specimen(s) Received: Cyst right middle finger Clinical History: Cyst right middle finger; probable epidermoid inclusion cyst or dermatofibroma; present in subq of finger x5 yrs Gross Description: ? Received in formalin labelled with proper patient identification (initials O, M) and cyst right middle finger is an unoriented elliptical excision of mcdonough-white skin (0.6 x 0.4 cm and is excised to a depth of 0.5 cm). ??The margins are inked. The specimen is serially sectioned and entirely submitted as 1 central sections and 2 tips, reverse en face. Pikny Hernandez 09/09/2013 10:30 AM End of Report BUDDY SANTANA 09/08/2013 9:54 EDT 09/09/2013 9:54 EDT Moo Painting MD PATHOLOGY ORDERABLE S Performing Organization Address City/State/[facility] Co de Phone Number BUDDY SANTANA [address] [place] [address] documented in this encounter Visit Diagnoses Not on filedocumented in this encounter Care Teams Automotive Title Clerk Relationship Specialty Start Date End Date Gatito Crawford MD PCP - General 05/09/09 09/10/13 documented as of this encounter
--- OUTSIDE RECORDS SUMMARY | 2024-06-01 06:51 | XMS_ITS | Clinical Summary ---
Author Organization [facility] Address [address] [place] [address] Care Team Providers Care Service Correspondent Name Role Phone Debby Puri MD Primary Care Provider [phone] Social History Tobacco Use Types Packs/Day Years Used Date Smoking Tobacco: Never Assessed Interpersonal Safety Answer Date Record ed Physically Hurt Never 06/19/2020 Verbally Threaten Not on file 06/19/2020 Sex and Gender Information Value Date Recorded Sex Assigned at Not on file Gender Identity Not on file Sexual Orientation Not on file Plan of Treatment Health Maintenance Due Date Last Done Comments Hepatitis B Vaccine (1 of - 19+ 3-dose series) 03/06 COVID-19 Vaccine ( season) 2023 Hepatitis C Screen Completed 12/28/2021 Procedures Procedure Name Priority Date/Time Associated Diagnosis Comments HEPATITIS C AB W REFLEX TO HCV RNA BY PCR Routine 12/28/2021 9:10 EST from Last 3 Months or Most Recently Relevant to Health Maintenance Results * HEPATITIS C AB W REFLEX TO HCV RNA BY PCR (12/28/2021 9:10 EST) Hep C Antibody Negative Negative 12/29/2021 9:53 EST [facility] Blood VENOUS BLOOD / Unknown 12/28/2021 9:10 EST 12/28/2021 17:07 EST Provider Outr Resulting Lab CHEMISTRY & BLOOD GAS ORDERABLES [facility] [address] [place] [address] from Last 3 Months or Most Recently Relevant to Health Maintenance Care Teams Service Correspondent Relationship Specialty Start Date End Date Debby Puri MD [address] [place] [address] [address] [place] [phone] PCP - General 09/11/13
--- OUTSIDE RECORDS SUMMARY | 2024-06-01 06:51 | XMS_ITS | Encounter Summary ---
Author Organization [facility] Address [address] [place] [address] Care Team Providers Care Wild Life Manager Name Role Phone Debby Puri MD Primary Care Provider [phone] Encounter Details Date Type Department Care Team (Late st Contact Info) Description 12/28/2021 Lab Requisition [facility] Pathology & Laboratory Medicine - [facility] [address] [place], [place] [phone] Outr Resulting Lab, Provider Social History Tobacco [...] RNA BY PCR Routine 12/28/2021 9:10 EST documented in this encounter Results * HEPATITIS C AB W REFLEX TO HCV RNA BY PCR (12/28/2021 9:10 EST) Hep C Antibody Negative Negative 12/29/2021 9:53 EST [facility] Blood VENOUS BLOOD / Unknown 12/28/2021 9:10 EST 12/28/2021 17:07 EST Provider Outr Resulting Lab CHEMISTRY & BLOOD GAS ORDERABLES [facility] [address] [place] [address] documented in this encounter Visit Diagnoses Not on filedocumented in this encounter Care Teams Wild Life Manager Relationship Specialty Start Date End Date Debby Puri MD [address] [place] [phone] PCP - General 09/11/13 documented as of this encounter
--- OUTSIDE RECORDS SUMMARY | 2024-06-01 06:51 | XMS_ITS | Encounter Summary ---
Author Organization [facility] Address [address] [place] [address] Care Team Providers Care Deputy Sheriff Custody Name Role Phone Debby Puri MD Primary Care Provider [phone] [phone] Encounter Details Date Type Department Care Team (Late st Contact Info) Description 01/08/2022 Lab Requisition [facility] Pathology & Laboratory Medicine - [facility] [address] [place] [address] Outr Resulting Lab, Provider Social History Tobacco [...] Procedure Name Priority Date/Time Associated Diagnosis Comments H. PYLORI ANTIGEN Routine 01/08/2022 10: 15 EST documented in this encounter Results * H. PYLORI ANTIGEN (01/08/2022 10:15 EST) H. Pylori Negative Negative 01/10/2022 12:54 EST [facility] Feces SPECIMEN FROM RECTUM / Unknown 01/08/2022 10:15 EST 01/08/2022 21:41 EST Narrative [facility] - 01/10/2022 12:54 EST Results were obtained with the [employer]enana HpSA Plus CARYN. Provider Outr Resulting Lab MICROBIOLOGY - GENERAL ORDERABLES [facility] [address] [place] [address] documented in this encounter Visit Diagnoses Not on filedocumented in this encounter Care Teams Deputy Sheriff Custody Relationship Specialty Start Date End Date Debby Puri MD [address] [place] [phone] PCP - General 09/11/13 documented as of this encounter
--- OUTSIDE RECORDS SUMMARY | 2024-06-01 06:51 | XMS_ITS | Encounter Summary ---
Author Organization [facility] Address [address] [place] [address] Care Team Providers Care Retail Merchandising Coordinator Name Role Phone Debby Puri MD Primary Care Provider [phone] [phone] Encounter Details Date Type Department Care Team (Latest Contact Info) Description 12/26/2016 14:01 EST - 12/26/2016 23:59 EST Hospital Encounter [address] [address] Unknown, Provider, Discharge Disposition: Home or Self Care Social History Tobacco Use Types Packs/Day Years Used Date Smoking Tobacco: Never Assessed Sex and Gender Information Value Date Recorded Sex Assigned at Not on file Gender Identity Not on file Sexual Orientation Not on file documented as of this encounter Discharge Disposition Disposition Code Departure Means Destination Home or Self Fpc documented in this encounter Plan of Treatment Not on file documented as of this encounter Visit Diagnoses Not on filedocumented in this encounter Care Teams Retail Merchandising Coordinator Relationship Specialty Start Date End Date Debby Puri MD [address] [place] [address] [address] [place] [address] PCP - General 09/11/13 documented as of this encounter
--- OUTSIDE RECORDS SUMMARY | 2024-06-01 06:51 | XMS_ITS | Encounter Summary ---
Author Organization [facility] Address [address] [place] [address] Care Team Providers Care Filtering Machine Tender Helper Name Role Phone Gatito Crawford MD Primary Care Provider Unavail able Encounter Details Date Type Department Care Team (Late st Contact Info) Description 07/27/2013 Results Only [facility] [phone] Trev Urbano MD [facility],[address] [address] Social History Tobacco Use Types Packs/Day Years Used Date Smoking Tobacco: Never Assessed Sex and Gender Information Value Date Recorded Sex Assigned at Not on file Gender Identity Not on file Sexual Orientation Not on file documented as of this encounter Plan of Treatment Not on file documented as of this encounter Procedures Procedure Name Priority Date/Time Associated Diagnosis Comments SURGICAL PATHOLOGY Routine 07/27/2013 9:51 EDT documented in this encounter Results * SURGICAL PATHOLOGY (07/27/2013 9:51 EDT) Pathology Report: SURGICAL PATHOLOGY REPORT Reports generated via electronic interface contain original data; however they are lacking the format of the original report. Caution should be taken when reading/interpreti ng unformatted reports. Name: ? LEANDRA VELOZ ? Accession #: ? [id number] ? : ? 1980 (Age: 33) ??F ? Collect Date: ? 07/27/2013 ? Location: ? [facility] ? Receive Date: ? 07/28/2013 ? Provider: TREV URBANO MD Copy to: LAMAR VALVERDE MD ? Final Pathologic Diagnosis: ENDOMETRIUM, BIOPSY: - ??Early secretory endometrium. - ??No cytologic atypia. Document reviewed and electronically signed by: ROCIO VASQUEZ MD Report ??Date: 07/30/2013 12:25 By the signature above, the attending physician certifies that he/she has personally conducted a gross and/or microscopic examination of the described specimens and rendered or confirmed the above diagnosis. Specimen(s) Received: Endometrial bx Clinical History: 2 yrs menorrhagia; thickened endometrial stripe Gross Description: ? Received in formalin labelled with proper patient identification (initials O, M) and endometrial bx is an aggregate of mcdonough-pink tissue fragments (2 cc). Submitted in toto in block 1. Wendy Clemons 07/28/2013 11:52 AM End of Report BUDDY SANTANA 07/27/2013 9:51 EDT 07/28/2013 9:51 EDT Trev Urbano MD PATHOLOGY ORDERABLES Performing Organization Address City/State/[facility] Co de Phone Number [facility] [address] [place] [address] documented in this encounter Visit Diagnoses Not on filedocumented in this encounter Care Teams Filtering Machine Tender Helper Relationship Specialty Start Date End Date Gatito Crawford MD PCP - General 05/09/09 09/10/13 documented as of this encounter
--- OUTSIDE RECORDS SUMMARY | 2024-06-01 06:51 | XMS_ITS | Encounter Summary ---
Author Organization [facility] Address [address] [place] [address] Care Team Providers Care Global Safety Officer Name Role Phone Debby Puri MD Primary Care Provider [phone] Encounter Details Date Type Department Care Team (Late st Contact Info) Description 09/19/2023 Lab Requisition [facility] Pathology & Laboratory Medicine - [facility] [address] [place] [address] Outr Resulting Lab, Provider Social History Tobacco [...] Procedure Name Priority Date/Time Associated Diagnosis Comments CA 125 Today 09/19/2023 11:48 EDT HOLD SST Today 09/19/2023 11:48 EDT CA 19-9 (NEW SIEMENS METHOD IN USE 11/22/15) Today 09/19/2023 11:48 EDT CEA Today 09/19/2023 11:48 EDT documented in this encounter Results * HOLD SST (09/19/2023 11:48 EDT) Hold Hold 09/19/2023 22:31 EDT [facility] Blood VENOUS BLOOD / Unknown 09/19/2023 11:48 EDT 09/19/2023 21:28 EDT Provider Outr Resulting Lab LAB INFO SER VICE AND SUPPORT & PHONE RESULT Performing Organization Address [facility] Co de Phone Number [facility] [address] [place] [address] * CEA (09/19/2023 11:48 EDT) CEA <0.5 See Note ng/mL 09/19/2023 22:56 EDT [facility] Comment: % Distribution of CEA (ng/mL): ??0.0 - 2.5 in 98.2% of Nonsmokers and 87.3% of Smokers ??2.6 - 5 in 1.8% of Nonsmokers and 8% of Smokers ??5.1 - 10.1 in 4.7% of Smokers NOTE: Serum CEA concentration should not be interpeted as absolute evidence for the presence or absence of malignant disease. ?? Assayed on Siemens ADVIA Centaur XPT using chemiluminescent technology. ??Values obtained by different assay methods cannot be used interchangeably. Blood VENOUS BLOOD / Unknown 09/19/2023 11:48 EDT 09/19/2023 21:27 EDT Provider Outr Resulting Lab CHEMISTRY & BLOOD GAS ORDERABLES Performing Organization Address [facility] Co de Phone Number [facility] [address] [place] [address] * CA 19-9 (NEW SIEMENS METHOD IN USE 11/22/15) (09/19/2023 11:48 EDT) CA 19-9 23 <35 U/mL 09/20/2023 8:49 EDT [facility] Comment: NOTE: Serum CA 19-9 concentration should not be interpreted as absolute evidence for the presence or absence of malignant disease. Assayed on Siemens ADVIA Centaur XPT using chemiluminescent technology. ??Values obtained by using different assay methods cannot be used interchangeably. Blood VENOUS BLOOD / Unknown 09/19/2023 11:48 EDT 09/19/2023 21:27 EDT Provider Outr Resulting Lab CHEMISTRY & BLOOD GAS ORDERABLES Performing Organization Address [facility] Co de Phone Number [facility] [address] [place] [address] * CA 125 (09/19/2023 11:48 EDT) CA 125 9 <30 U/mL 09/20/2023 8:45 EDT [facility] Comment: NOTE: Serum CA 125 concentration should not be interpreted as absolute evidence for the presence or absence of malignant disease. Assayed on DDStocksaur XPT using chemiluminescent technology. ??Values obtained by using different assay methods cannot be used interchangeably. Blood VENOUS BLOOD / Unknown 09/19/2023 11:48 EDT 09/19/2023 21:27 EDT Provider Outr Resulting Lab CHEMISTRY & BLOOD GAS ORDERABLES Performing Organization Address [facility] Co de Phone Number [facility] [address] [place] [address] documented in this encounter Visit Diagnoses Not on filedocumented in this encounter Care Teams Global Safety Officer Relationship Specialty Start Date End Date Debby Puri MD [address] [place] [address] PCP - General 09/11/13 documented as of this encounter
--- OUTSIDE RECORDS SUMMARY | 2024-06-01 06:51 | XMS_ITS | Encounter Summary ---
Author Organization [facility] Address [address] [place] [address] Care Team Providers Care Lube Attendant Name Role Phone Gatito Crawford MD Primary Care Provider Unavail able Encounter Details Date Type Department Care Team (Late st Contact Info) Description 07/01/2012 Results Only [facility] Laboratory Services - [facility] ([facility]) [address] [place], [place] [address] Peg Hodges, [facility] [address] [place] [address] [place] [address] Social History Tobacco Use Types Packs/Day Years Used Date Smoking Tobacco: Never Assessed Sex and Gender Information Value Date Recorded Sex Assigned at Not on file Gender Identity Not on file Sexual Orientation Not on file documented as of this encounter Plan of Treatment Not on file documented as of this encounter Procedures Procedure Name Priority Date/Time Associated Diagnosis Comments PAP TEST- RESULT ONLY Routine 07/01/2012 0:00 EDT documented in this encounter Results * PAP TEST- RESULT ONLY (07/01/2012 0:00 EDT) Pathology Report: CYTOPATHOLOGY REPORT Reports generated via electronic interface contain original data; however they are lacking the format of the original report. Caution should be taken when reading/interpreti ng unformatted reports. Name: ? LEANDRA VELOZ ? Accession #: ? [id number] : ? 1980 (Age: 32) ??F ?Collect Date: ? 07/01/2012 Location: ? [facility] ? Receive Date: ? 07/02/2012 Provider: ?PEG HODGES CHEMISTRY TECHNICAL OFFICER Copy to: ? Specimen/Source: ?Pap Test, Cervix/Endocervix, ThinPrep Imaging System with manual evaluation Last Menstrual Period: ? 06/16/12 Hormonal/Contracep tive Status: ? Tubal ligation: bilateral Previous Gynecologic Pathology: ? LSIL: 2009 Treatment History: ? Colposcopy: 2009 Miscellaneous treatment: biopsy - benign 2009 Other: ? Additional clinical information: 2009 normal pap with negative HPV ? SPECIMEN ADEQUACY ? Satisfactory for Evaluation - transformation zone component present GENERAL CATEGORIZATION ? Negative for Intraepithelial Lesion or Malignancy ? Document reviewed and electronically signed by: ? Sola Soriano, CT(ASCP)(IAC) ? Report Date: ??07/08/2012 16:14 End of Report [facility] 07/01/2012 07/02/2012 Peg Hodges CHEMISTRY TECHNICAL OFFICER PATHOLOGY ORDERABLES [facility] [address] [place] [address] documented in this encounter Visit Diagnoses Not on filedocumented in this encounter Care Teams Lube Attendant Relationship Specialty Start Date End Date Gatito Crawford MD PCP - General 05/09/09 09/10/13 documented as of this encounter
--- OUTSIDE RECORDS SUMMARY | 2024-06-01 06:51 | XMS_ITS | Encounter Summary ---
Author Organization [facility] Address [address] [place] [address] Care Team Providers Care Quality Facilitator Name Role Phone Lamar Puri MD Primary Care Provider [phone] Encounter Details Date Type Department Care Team (Late st Contact Info) Description 10/21/2014 Results Only [facility] [phone] Trev Urbano MD [facility] [facility] [address] [place], [place] [id number] Social History Tobacco Use Types Packs/Day Years Used Date Smoking Tobacco: Never Assessed Sex and Gender Information Value Date Recorded Sex Assigned at Not on file Gender Identity Not on file Sexual Orientation Not on file documented as of this encounter Plan of Treatment Not on file documented as of this encounter Procedures Procedure Name Priority Date/Time Associated Diagnosis Comments SURGICAL PATHOLOGY Routine 10/21/2014 19 :41 EST documented in this encounter Results * SURGICAL PATHOLOGY (10/21/2014 19:41 EST) Pathology Report: SURGICAL PATHOLOGY REPORT Reports generated via electronic interface contain original data; however they are lacking the format of the original report. Caution should be taken when reading/interpret ing unformatted reports. Name: ? LEANDRA VELOZ ? Accession #: ? [id number] ? : ? 1980 (Age: 34) ??F ? Collect Date: ? 10/21/2014 ? Location: ? [facility] ? Receive Date: ? 10/21/2014 ? Provider: TREV URBANO MD Copy to: LAMAR PURI MD ? Final Pathologic Diagnosis: A. FALLOPIAN TUBES, BILATERAL AND LEFT UTERINE CORNU, BILATERAL SALPINGECTOMY AND BIOPSY: - ??Benign fallopian tubes. - ??Benign myometrium. B. PERITONEUM, LEFT CUL-DE-SAC IMPLANT, BIOPSY: - ??Fragment of benign fibrous tissue. See comment. Comment: Specimen B consists predominantly of fibrous tissue with a small focus of increased cellularity composed of cells that are smudged. This focus is suggestive of endometriosis. Dr. Gooden 10/25/2014 02:01 PM Document reviewed and electronically signed by: VALERY NAYLOR MD Report ??Date: 10/26/2014 13:09 By the signature above, the attending physician certifies that he/she has personally conducted a gross and/or microscopic examination of the described specimens and rendered or confirmed the above diagnosis. Specimen(s) Received: A. ??Right and left fallopian tubes and left uterine cornua B. ??Left cul-de-sac implant of endometriosis Clinical History: Dysmenorrhea; dyspareunia; irregular menses; endometriosis; pelvic pain Gross Description: A. ?Received in formalin labelled with proper patient identification (initials O, M) and right/left fallopian tubes and left uterine cornua are two unoriented, previously interrupted fallopian tubes (3.3 cm in length x 0.6 cm in diameter and 4.3 cm in length x 0.5 cm diameter) as well as fragments of rubbery pink-white tissue (1.2 x 1.0 x 0.4 cm in aggregate). ??Both fallopian tubes have mcdonough-purple smooth serosa and both have a mcdonough-pink surface with a pinpoint lumen throughout. ??Global Compensation Manager sections are submitted as follows: BLOCK MARCANO A1- ??shorter fallopian tube A2- ??longer fallopian tube A3- ??pink-white fragments B. ?Received in formalin labelled with proper patient identification (initials O, M) and left cul-de-sac implant of endometriosis are two mcdonough-brown tissues (each 0.1 x 0.1 x 0.1 cm). Entirely submitted in B1. Mirna Herman 10/22/2014 09:18 AM End of Report [facility] 10/21/2014 19:4 1 EST 10/21/2014 19:41 EST Trev Urbano MD PATHOLOGY ORDERABLES [facility] [address] [place] [address] documented in this encounter Visit Diagnoses Not on filedocumented in this encounter Care Teams Quality Facilitator Relationship Specialty Start Date End Date Lamar Puri MD [address] [place] [address] [address] [place] [address] PCP - General 09/11/13 documented as of this encounter
--- OUTSIDE RECORDS SUMMARY | 2024-06-01 06:51 | XMS_ITS | Encounter Summary ---
Author Organization [facility] Address [address] [place] [address] Care Team Providers Care Co Founder And President Name Role Phone Debby Puri MD Primary Care Provider [phone] Encounter Details Date Type Department Care Team (Late st Contact Info) Description 12/26/2016 Results Only [facility] [phone] Jesika Monreal MD [address] [place] [address] Social History Tobacco Use Types Packs/Day Years Used Date Smoking Tobacco: Never Assessed Sex and Gender Information Value Date Recorded Sex Assigned at Not on file Gender Identity Not on file Sexual Orientation Not on file documented as of this encounter Plan of Treatment Not on file documented as of this encounter Procedures Procedure Name Priority Date/Time Associated Diagnosis Comments SURGICAL PATHOLOGY Routine 12/26/2016 11 :05 EST documented in this encounter Results * SURGICAL PATHOLOGY (12/26/2016 11:05 EST) Pathology Report: SURGICAL PATHOLOGY REPORT Reports generated via electronic interface contain original data; however they are lacking the format of the original report. Caution should be taken when reading/interpret ing unformatted reports. Name: ? LEANDRA VELOZ ? Accession #: ? [id number] ? : ? 1980 (Age: 36) ??F ? Collect Date: ? 12/26/2016 ? Location: ? [facility] ? Receive Date: ? 12/27/2016 ? Provider: JESIKA MONREAL MD Copy to: ? Final Pathologic Diagnosis: SKIN OF ARM, LEFT UPPER, EXCISION: - Dermatofibroma. - Lesion extends to peripheral and deep margin of excision specimen. Document reviewed and electronically signed by: MARY LOU GARCIA MD Report ??Date: 01/01/2017 12:23 By the signature above, the attending physician certifies that he/she has personally conducted a gross and/or microscopic examination of the described specimens and rendered or confirmed the above diagnosis. Specimen(s) Received: Excision biopsy sterile removal L upper arm Clinical History: Lesion Gross Description: ? Received in formalin labelled with proper patient identification (initials O, M) and Lt arm is an unoriented elliptical excision of mcdonough-white wrinkled skin (1.5 x 1.1 cm and is excised to a depth of 0.2 cm). There is a central mcdonough-white scar-like lesion that measures 0.7 x 0.6 x 0.1 cm. The margins are inked blue. The specimen is serially sectioned and entirely submitted as seven central sections (blocks 2-4) and two tips (block 1), reverse en face. Valerie Negrete 12/31/2016 4:51 PM End of Report [facility] 12/26/2016 11:0 5 EST 12/27/2016 11:05 EST Jesika Monreal MD PATHOLOGY ORDER FUNMI [facility] [address] [place] [address] documented in this encounter Visit Diagnoses Not on filedocumented in this encounter Care Teams Co Founder And President Relationship Specialty Start Date End Date Debby Puri MD [address] [place] [id number] PCP - General 09/11/13 documented as of this encounter
--- OUTSIDE RECORDS SUMMARY | 2024-06-01 06:51 | XMS_ITS | Continuity of Care Document ---
Author Organization [facility] Address [address] [place] [address] Care Team Providers Care Welfare Centre Manager Name Role Phone ManavespinozaDebby Primary Care Physician ( [phone] Encounter [facility] Date(s): 01/17/23 - 01/18/[address] [address] Encounter Diagnosis Nausea and vomiting(Discharge Diagnosis) - 01/18/23 Discharge Disposition: Home or Self Care Attending Physician: Erlin Cheatham MD Admitting Physician: Erlin Cheatham MD Allergies, Adverse Reactions, Alerts No Known Medication Allergies Assessment and Plan Extracted from: Title:Clinical Document Author:Loly Kumar te:01/18/23 Diagnosis: 1. Nausea and vom iting Comment: Diagnosis: Aspiration Comment: Functional Status 01/17/23 Other exposure to Infectious Disease Non e Medications !-Augmentin 875 mg-125 mg oral tablet 1 tab, Oral, every 12 hr, # 20 tab, 0 Refill(s), Pharmacy: [facility], 163, cm, 12/16/22 12:46:00 EST, Height/Length Dosing, 100, kg, 12/16/22 12:46:00 EST, Weight Dosing Start Date: 12/16/22 Stop Date: 12/26/22 Status: Ordered FLUoxetine 0 Refill(s) Start Date: 12/16/22 Status: Ordered ibuprofen 600 mg oral tablet 600 mg = 1 tab, Oral, every 8 hr, # 30 tab, 0 Refill(s), Pharmacy: [facility], 163, cm, 12/16/22 12:46:00 EST, Height/Length Dosing, 100, kg, 12/16/22 12:46:00 EST, Weight Dosing Start Date: 12/16/22 Status: Ordered LaMICtal 0 Refill(s) Start Date: 12/16/22 Status: Ordered oxybutynin 0 Refill(s) Start Date: 12/16/22 Status: Ordered prochlorperazine 10 mg oral tablet 10 mg = 1 tab, Oral, TID, X 7 days, # 21 tab, 0 Refill(s), 01/25/23 2:02:00 EST, Pharmacy: [facility], 163, cm, 01/17/23 21:13:00 EST, Height/Length Dosing, 95.5, kg, 01/17/23 21:13:00 EST,Weight Dosing Start Date: 01/18/23 Stop Date: 01/25/23 Status: Ordered propranolol 0 Refill(s) Start Date: 12/16/22 Status: Ordered Tylenol 8 Hour 650 mg oral tablet, extended release 650 mg = 1 tab, Oral, every 8 hr, PRN as needed for fever, # 30 tab, 0 Refill(s), Pharmacy: [facility], 163, cm, 12/16/22 12:46:00 EST, Height/Length Dosing, 100, kg, 12/16/22 12:46:00 EST,Weight Dosing Start Date: 12/16/22 Status: Ordered Results Laboratory List Name Date CBC w/ Diff 01/17/23 Comprehensive Metabolic Panel 01/17/23 Lipase Level 01/17/23 Automated Diff 01/17/23 Most recent to oldest [Reference Range]: 1 WBC [5.0-10.0 x10^3/mcL] 9.7 x10^3/mcL (01/17/23 10:05 PM) RBC [4.1-5.3 x10^6/mcL] 4.1 x10^6/mcL (01/17/23 10:05 PM) Neutro Auto [40.0-75.0 %] 73.7 % (01/17/23 10:05 PM) Lymph Auto [20.0-50.0 %] 16.8 % *LOW* (01/17/23 10:05 PM) [place] Auto [2.0-15.0 %] 5.0 % (01/17/23 10:05 PM) Basophil Auto [0.0-1.0 %] 0.3 % (01/17/23 10:05 PM) BUN [7-18 mg/dL] 8 mg/dL (01/17/23 10:05 PM) Glucose Level [74-106 mg/dL] 81 mg/dL (01/17/23 10:05 PM) Potassium Level [3.5-5.1 mmol/L] 3.1 mmo l/L *LOW* (01/17/23 10:05 PM) MCV [80.0-96.0] 87.9 (01/17/23 10:05 PM) AST [15-37 unit/L] 31 unit/L (01/17/23 10:05 PM) ALT [14-59 unit/L] 59 unit/L (01/17/23 10:05 PM) MCHC [31.0-35.0 g/dL] 34.0 g/dL (01/17/23 10:05 PM) Sodium Level [136-145 mmol/L] 136 mmol/L (01/17/23 10:05 PM) Hct [37.0-47.0 %] 36.2 % *LOW* (01/17/23 10:05 PM) Lipase Level [16-77 unit/L] 102 unit/L *HI* (01/17/23 10:05 PM) Calcium Level [8.5-10.1 mg/dL] 9.0 mg/dL (01/17/23 10:05 PM) Albumin Level [3.4-5.0 g/dL] 3.7 g/dL (01/17/23 10:05 PM) Protein Total [6.4-8.2 g/dL] 7.4 g/dL (01/17/23 10:05 PM) MCH [26.0-32.0 pg] 29.9 pg (01/17/23 10:05 PM) Neutro Absolute 7.1 x10^3/mcL *NA* (01/17/23 10:05 PM) Bilirubin Total [0.2-1.0 mg/dL] 0.4 mg/d L (01/17/23 10:05 PM) Hgb [12.0-16.0 g/dL] 12.3 g/dL (01/17/23 10:05 PM) Alk Phos [46-146 unit/L] 116 unit/L (01/17/23 10:05 PM) Platelets [130-450 x10^3/mcL] 428 x10^3/ mcL (01/17/23 10:05 PM) CO2 [21-32 mmol/L] 28 mmol/L (01/17/23 10:05 PM) eGFR Non-AA [>=60] 90 (01/17/23 10:05 PM) eGFR AA [>=60] 90 (01/17/23 10:05 PM) Chloride Level [98-107 mmol/L] 98 mmol/L (01/17/23 10:05 PM) RDW-CV [11.7-17.0 %] 13.3 % (01/17/23 10:05 PM) Imm Gran Auto [0.0-0.9 %] 0.3 % (01/17/23 10:05 PM) Creatinine Level [0.55-1.02 mg/dL] 0.82 mg/dL (01/17/23 10:05 PM) Eos, Auto [1.0-6.0 %] 3.9 % (01/17/23 10:05 PM) Vital Signs Most recent to oldest [Reference Range]: 1 2 3 Temperature Temporal Artery [36-38 Deg C] 37.7 Deg C (01/17/23 9:05 PM) Peripheral Pulse Rate [60-100 bpm] 72 bpm (01/18/23 1:40 AM) 77 bpm (01/18/23 12:13 AM) 79 bpm (01/17/23 11:09 PM) Respiratory Rate [12-24 br/min] 16 br/min (01/17/23 11:09 PM) 16 br/min (01/17/23 9:05 PM) Blood Pressure [90-140/60-90 mmHg] 118/82mmHg (01/18/23 1:40 AM) 141/86mmHg *HI* (01/17/23 11:09 PM) 147/89mmHg *HI* (01/17/23 10:56 PM) Weight 95.50 kg (01/17/23 9:05 PM) Weight Dosing 95.50 kg (01/17/23 9:13 PM) Height 163.000 cm (01/17/23 9:05 PM) Height/Length Dosing 163.000 cm (01/17/23 9:13 PM) Body Mass Index 36.000 kg/m2 (01/17/23 9:05 PM) Social History Social History Type Response Tobacco Never tobacco user T obacco Use:. Sex Female Hospital Discharge Instructions Patient Education 01/18/2023 01:01:15 Nausea and Vomiting, Adult Nausea and Vomiting, Adult Nausea is the feeling that you have an upset stomach or that you are about to vomit. Vomiting is when stomach contents are thrown up and out of the mouth as a result of nausea. Vomiting can make you feel weak and cause you to become dehydrated. Dehydration can make you feel tired and thirsty, cause you to have a dry mouth, and decrease how often you urinate. Older adults and people with other diseases or a weak disease-fighting system (immune system) are at higher risk for dehydration. It is important to treat your nausea and vomiting as told by your health care provider. Follow these instructions at home: Watch your symptoms for any changes. Tell your health care provider about them. Follow these instructions to care for yourself at home. Eating and drinking ??? Take an oral rehydration solution (ORS). This is a drink that is sold at pharmacies and retail stores. ??? Drink clear fluids slowly and in small amounts as you are able. Clear fluids include water, icechips, low-calorie sports drinks, and fruit juice that has water added (diluted fruit juice). ??? Eat bland, lrdt-lf-cvpylf foods in small amounts as you are able. These foods include bananas, applesauce, rice, lean meats, toast, and crackers. ??? Avoid fluids that contain a lot of sugar or caffeine, such as energy drinks, sports drinks, andsoda. ??? Avoid alcohol. ??? Avoid spicy or fatty foods. General instructions ??? Take ulwp-pkr-endtngf and prescription medicines only as told by your health care provider. ??? Drink enough fluid to keep your urine pale yellow. ??? Wash your hands often using soap and water. If soap and water are not available, use hand barbering instructor. ??? Make sure that all people in your household wash their hands well and often. ??? Rest at home while you recover. ??? Watch your condition for any changes. ??? Breathe slowly and deeply when you feel nauseated. ??? Keep all follow-up visits as told by your health care provider. This is important. Contact a health care provider if: ??? Your symptoms get worse. ??? You have new symptoms. ??? You have a fever. ??? You cannot drink fluids without vomiting. ??? Your nausea does not go away after 2 days. ??? You feel light-headed or dizzy. ??? You have a headache. ??? You have muscle cramps. ??? You have a rash. ??? You have pain while urinating. Get help right away if: ??? You have pain in your chest, neck, arm, or jaw. ??? You feel extremely weak or you faint. ??? You have persistent vomiting. ??? You have vomit that is bright red or looks like black coffee grounds. ??? You have bloody or black stools or stools that look like tar. ??? You have a severe headache, a stiff neck, or both. ??? You have severe pain, cramping, or bloating in your abdomen. ??? You have difficulty breathing, or you are breathing very quickly. ??? Your heart is beating very quickly. ??? Your skin feels cold and clammy. ??? You feel confused. ??? You have signs of dehydration, such as: ??? Dark urine, very little urine, or no urine. ??? Cracked lips. ??? Dry mouth. ??? Sunken eyes. ??? Sleepiness. ??? Weakness. These symptoms may represent a serious problem that is an emergency. Do not wait to see if the symptoms will go away. Get medical help right away. Call your local emergency services (911 in the [place] Do not drive yourself to the hospital. Summary ??? Nausea is the feeling that you have an upset stomach or that you are about to vomit. As nausea gets worse, it can lead to vomiting. Vomiting can make you feel weak and cause you to become dehydrated. ??? Follow instructions from your health care provider about eating and drinking to prevent dehydration. ??? Take adpo-puw-vmmmufx and prescription medicines only as told by your health care provider. ??? Contact your health care provider if your symptoms get worse, or you have new symptoms. ??? Keep all follow-up visits as told by your health care provider. This is important. This information is not intended to replace advice given to you by your health care provider. Make sure you discuss any questions you have with your health care provider. Document Revised: 01/24/2022 Document Reviewed: 04/14/2019 Elsevier Patient Education ?? 2021 [employer]. Follow Up Care 01/17/2023 21:05:20 With:Debby Puri MD Address: [facility] [address] [place] [address]- When:1 week Emergency department Discharge instructions * Erlin Cheatham MD: PERFORM Event Display: ED Discharge Information Authored Date: [id number] PARTHA VELOZ :1980 Age:42 years Sex:Female Visit Date:01/17/2023 Primary Care Physician: Debby Puri MD Discharge Instructions We would like to thank you for allowing us to assist you with your healthcare needs. The following includes patient education materials and information regarding your injury/illness. Diagnosis from Today's Visit Nausea and vomiting Discharge Vitals Temperature??(Temporal Artery) 99.9 ??F (37.7 ??C) Heart Rate??(Peripheral) 72 Respiratory Rate?? 16 Blood Pressure?? 118/82?? Height?? 64.17 in (163.000 cm) Weight?? 210.58 lb (95.50 kg) BMI?? 36.000 Allergies No Known Medication Allergies What to Do Next Instructions from Your Care Team Thank you for coming to the emergency department tonight, it has been a pleasure to take care of you.?? Overall your laboratory evaluation tonight was normal with normal cell counts, kidney function,and electrolytes.?? Your CT scan was reviewed by the radiologist and they indicated??normal postoperative changes, no apparent issue with the surgery, no bowel blockage.?? You may use the Zofran and the Compazine for any ongoing nausea.?? Please stick to a bland, pur??ed diet and take??small but frequent sips??of??either water or a rehydration solution like Gatorade or Pedialyte.?? Please follow-up with your surgeon as soon as you are able??for recheck. ??Please return to the emergency department if you have any new or concerning symptoms including any new pain, fever, persistent nausea or vomiting, or if any other symptoms are concerning. You Need to Schedule the Following Appointments Follow Up with??Debby Puri MD When:??Within 1 week Where: [facility] [address] [place] [address]- You were treated today on an emergency [...] How Much When Why Instructions Next Dose New prochlorperazine (prochlorperazine 10 mg oral tablet) 1 tab Oral (given by mouth) 3 times a day Nausea and vomiting Duration: 7 Days Pickup at [facility] Unchanged acetaminophen (Tylenol 8 Hour 650 mg oral tablet, extended release) 1 tab Oral (given by mouth) Every 8 hours as needed for as needed for fever Periapical abscess Unchanged amoxicillin-clavulanate (!-Augmentin 875 mg-125 mg oral tablet) 1 tab Oral (given by mouth) Every 12 hours Periapical abscess Duration: 10 Days Unchanged FLUoxetine Unchanged ibuprofen (ibuprofen 600 mg oral tablet) 1 tab Oral (given by mouth) Every 8 hours Periapical abscess Unchanged lamoTRIgine (LaMICtal) Unchanged oxybutynin Unchanged propranolol Pharmacy Information [facility]: [address] [place], [place] [id number] [phone] Education Materials Nausea and Vomiting, Adult Nausea is the feeling that you have an upset stomach or that you are about to vomit. Vomiting is when stomach contents are thrown up and out of the mouth as a result of nausea. Vomiting can make you feel weak and cause you to become dehydrated. Dehydration can make you feel tired and thirsty, cause you to have a dry mouth, and decrease how often you urinate. Older adults and people with other diseases or a weak disease-fighting system (immune system) are at higher risk for dehydration. It is important to treat your nausea and vomiting as told by your health care provider. Follow these instructions at home: Watch your symptoms for any changes. Tell your health care provider about them. Follow these instructions to care for yourself at home. Eating and drinking ? Take an oral rehydration solution (ORS). This is a drink that is sold at pharmacies and retail stores. ? Drink clear fluids slowly and in small amounts as you are able. Clear fluids include water, ice chips, low-calorie sports drinks, and fruit juice that has water added (diluted fruit juice). ? Eat bland, urhs-js-jsclbj foods in small amounts as you are able. These foods include bananas, applesauce, rice, lean meats, toast, and crackers. ? Avoid fluids that contain a lot of sugar or caffeine, such as energy drinks, sports drinks, and soda. ? Avoid alcohol. ? Avoid spicy or fatty foods. General instructions ? Take hkoi-siz-hwrkyjx and prescription medicines only as told by your health care provider. ? Drink enough fluid to keep your urine pale yellow. ? Wash your hands often using soap and water. If soap and water are not available, use hand barbering instructor. ? Make sure that all people in your household wash their hands well and often. ? Rest at home while you recover. ? Watch your condition for any changes. ? Breathe slowly and deeply when you feel nauseated. ? Keep all follow-up visits as told by your health care provider. This is important. Contact a health care provider if: ? Your symptoms get worse. ? You have new symptoms. ? You have a fever. ? You cannot drink fluids without vomiting. ? Your nausea does not go away after 2 days. ? You feel light-headed or dizzy. ? You have a headache. ? You have muscle cramps. ? You have a rash. ? You have pain while urinating. Get help right away if: ? You have pain in your chest, neck, arm, or jaw. ? You feel extremely weak or you faint. ? You have persistent vomiting. ? You have vomit that is bright red or looks like black coffee grounds. ? You have bloody or black stools or stools that look like tar. ? You have a severe headache, a stiff neck, or both. ? You have severe pain, cramping, or bloating in your abdomen. ? You have difficulty breathing, or you are breathing very quickly. ? Your heart is beating very quickly. ? Your skin feels cold and clammy. ? You feel confused. ? You have signs of dehydration, such as: ? Dark urine, very little urine, or no urine. ? Cracked lips. ? Dry mouth. ? Sunken eyes. ? Sleepiness. ? Weakness. These symptoms may represent a serious problem that is an emergency. Do not wait to see if the symptoms will go away. Get medical help right away. Call your local emergency services (911 in the [place] Do not drive yourself to the hospital. Summary ? Nausea is the feeling that you have an upset stomach or that you are about to vomit. As nausea getsworse, it can lead to vomiting. Vomiting can make you feel weak and cause you to become dehydrated. ? Follow instructions from your health care provider about eating and drinking to prevent dehydration. ? Take ejpn-vdc-haelehz and prescription medicines only as told by your health care provider. ? Contact your health care provider if your symptoms get worse, or you have new symptoms. ? Keep all follow-up visits as told by your health care provider. This is important. This information is not intended to replace advice given to you by your health care provider. Make sure you discuss any questions you have with your health care provider. Document Revised: 01/24/2022 Document Reviewed: 04/14/2019 [employer] Patient Education ?? 2021 [employer] Tests Performed Medications and Immunizations Administered Given !-Compazine, 10 mg, IV Push morphine, 4 mg, IV Push NS bolus, 1000 mL, IV Piggyback ondansetron, 4 mg, IV Push Lab Test Name Test Result Date/Time WBC 9.7 x10^3/mcL 01/17/2023 22:05 EST RBC 4.1 x10^6/mcL 01/17/2023 22:05 EST Hgb 12.3 g/dL 01/17/2023 22:05 EST Hct 36.2 % 01/17/2023 22:05 EST MCV 87.9 01/17/2023 22:05 EST MCH 29.9 pg 01/17/2023 22:05 EST MCHC 34.0 g/dL 01/17/2023 22:05 EST RDW-CV 13.3 % 01/17/2023 22:05 EST Platelets 428 x10^3/mcL 01/17/2023 22:05 EST Neutro Auto 73.7 % 01/17/2023 22:05 EST Lymph Auto 16.8 % 01/17/2023 22:05 EST [place] Auto 5.0 % 01/17/2023 22:05 EST Eos, Auto 3.9 % 01/17/2023 22:05 EST Basophil Auto 0.3 % 01/17/2023 22:05 EST Imm Gran Auto 0.3 % 01/17/2023 22:05 EST Neutro Absolute 7.1 x10^3/mcL 01/17/2023 22:05 EST Sodium Level 136 mmol/L 01/17/2023 22:05 EST Potassium Level 3.1 mmol/L 01/17/2023 22:05 EST Chloride Level 98 mmol/L 01/17/2023 22:05 EST CO2 28 mmol/L 01/17/2023 22:05 EST Alk Phos 116 unit/L 01/17/2023 22:05 EST AST 31 unit/L 01/17/2023 22:05 EST ALT 59 unit/L 01/17/2023 22:05 EST BUN 8 mg/dL 01/17/2023 22:05 EST Glucose Level 81 mg/dL 01/17/2023 22:05 EST Creatinine Level 0.82 mg/dL 01/17/2023 22:05 EST eGFR AA 90 01/17/2023 22:05 EST eGFR Non-AA 90 01/17/2023 22:05 EST Calcium Level 9.0 mg/dL 01/17/2023 22:05 EST Protein Total 7.4 g/dL 01/17/2023 22:05 EST Albumin Level 3.7 g/dL 01/17/2023 22:05 EST Bilirubin Total 0.4 mg/dL 01/17/2023 22:05 EST Lipase Level 102 unit/L 01/17/2023 22:05 EST Patient/Lean Engineer Signature Patient Name:PARTHA VELOZ I have received this information and my questions have been answered. Patient/Lean Engineer Name: Patient/Lean Engineer Signature: Relationship to Patient: Witness Name/Signature: Date: Electronically Signed on: 01/18/2023 02:03 ESTSigned by:KARLA Discharge summary * Loly Kumar: PERFORM Event Display: Discharge Note Authored Date: * Loly Kumar: PERFORM Event Display: Discharge Note Authored Date: Diagnosis: 1. Nausea and vomiting Comment: Diagnosis: Aspiration Comment: Electronically Signed on 01/18/23 05:19 AM Loly Kumar Patient Care team information Care Team Personnel Name: Debby Puri MD Position: No Access Member Role: Primary Care Physician Address: Address: [facility] [address] [place] [id number]- [place] Name: Blaire Becker Position: Nurse Member Role: ED Nurse Name: Erlin Cheatham MD Position: Physician Member Role: Attending Physician Address: Address: [address] [place] [address] [address] [place] [address] [place] Care Team Related Persons Name: JAXON GREER
--- OUTSIDE RECORDS SUMMARY | 2024-06-01 06:51 | XMS_ITS | Continuity of Care Document ---
Author Organization [facility] Address [address] [place] [address] Care Team Providers Care Insurance Account Representative Name Role Phone Sree High Primary Care Physician [phone] Encounter [facility] Date(s): 11/07/23 - 11/07/[address] [phone] Encounter Diagnosis Vestibular dysfunction(Discharge Diagnosis) - 11/07/23 Discharge Disposition: Home or Self Care Attending Physician: Domonique Gomez MD Admitting Physician: Domonique Gomez MD Allergies, Adverse Reactions, Alerts No Known Medication Allergies Medications !-Zofran ODT 4 mg oral tablet, disintegrating 4 mg = 1 tab, Oral, TID, PRN as needed for nausea/vomiting, # 12 tab, 0 Refill(s), Pharmacy: [facility] #[id number], 163, cm, 03/09/23 17:36:00 EDT, Height/Length Dosing, 84, kg, 03/09/23 17:36:00 EDT,Weight Dosing Start Date: 03/09/23 Stop Date: 03/13/23 Status: Ordered FLUoxetine 0 Refill(s) Start Date: 12/16/22 Status: Ordered LaMICtal 0 Refill(s) Start Date: 12/16/22 Status: Ordered oxybutynin 0 Refill(s) Start Date: 12/16/22 Status: Ordered propranolol 0 Refill(s) Start Date: 12/16/22 Status: Ordered Tylenol 8 Hour 650 mg oral tablet, extended release 650 mg = 1 tab, Oral, every 8 hr, PRN as needed for fever, # 30 tab, 0 Refill(s), Pharmacy: [facility] #[id number], 163, cm, 12/16/22 12:46:00 EST, Height/Length Dosing, 100, kg, 12/16/22 12:46:00 EST,Weight Dosing Start Date: 12/16/22 Status: Ordered Vitamin D with Minerals oral tablet 0 Refill(s) Start Date: 02/11/23 Status: Ordered Mental Status 11/07/23 Eye Opening Response Bernardo Spontaneous ly Best Verbal Response Aurora Oriented Best Motor Response Bernardo Obeys comman ds Aurora Coma Score 15 Results Laboratory List Name Date CBC w/ Diff 11/07/23 Comprehensive Metabolic Panel (CMP) 10/19 12/10 Magnesium Level 11/07/23 Automated Diff 11/07/23 Most recent to oldest [Reference Range]: 1 WBC [5.0-10.0 x10^3/mcL] 6.6 x10^3/mcL (11/07/23 2:27 PM) RBC [4.1-5.3 x10^6/mcL] 4.0 x10^6/mcL *LOW* (11/07/23 2:27 PM) Neutro Auto [40.0-75.0 %] 62.3 % (11/07/23 2:27 PM) Lymph Auto [20.0-50.0 %] 29.8 % (11/07/23 2:27 PM) [place] Auto [2.0-15.0 %] 5.0 % (11/07/23 2:27 PM) Basophil Auto [0.0-1.0 %] 0.5 % (11/07/23 2:27 PM) BUN [7-18 mg/dL] 19 mg/dL *HI* (11/07/23 2:27 PM) Glucose Level [74-106 mg/dL] 83 mg/dL (11/07/23 2:27 PM) Potassium Level [3.5-5.1 mmol/L] 4.1 mmo l/L (11/07/23 2:27 PM) MCV [80.0-96.0 fL] 88.5 fL (11/07/23 2:27 PM) AST [15-37 unit/L] 26 unit/L (11/07/23 2:27 PM) ALT [14-59 unit/L] 33 unit/L (11/07/23 2:27 PM) MCHC [31.0-35.0 g/dL] 35.0 g/dL (11/07/23 2: PM) Sodium Level [136-145 mmol/L] 136 mmol/L (11/07/23 2: PM) Hct [37.0-47.0 %] 35.4 % *LOW* (11/07/23: PM) Calcium Level [8.5-10.1 mg/dL] 9.2 mg/dL (11/07/23 2: PM) Albumin Level [3.4-5.0 g/dL] 3.5 g/dL (11/07/23 2: PM) Protein Total [6.4-8.2 g/dL] 6.9 g/dL (11/07/23 2: PM) MCH [26.0-32.0 pg] 31.0 pg (11/07/23 2: PM) Magnesium Level [1.8-2.4 mg/dL] 2.2 mg/d L (11/07/23 2: PM) Neutro Absolute 4.1 x10^3/mcL *NA* (11/07/23 2: PM) Bilirubin Total [0.2-1.0 mg/dL] 0.5 mg/d L (11/07/23: PM) Hgb [12.0-16.0 g/dL] 12.4 g/dL (11/07/23 2: PM) Alk Phos [46-146 unit/L] 104 unit/L (11/07/23 2: PM) Platelets [130-450 x10^3/mcL] 244 x10^3/ mcL (11/07/23 2:27 PM) CO2 [21-32 mmol/L] 23 mmol/L (11/07/23 2: PM) eGFR Non-AA [>=60] 107 (11/07/23 2:27 PM) eGFR AA [>=60] 107 (11/07/23 2:27 PM) Chloride Level [98-107 mmol/L] 104 mmol/ L (11/07/23 2:27 PM) RDW-CV [11.5-14.5 %] 12.7 % (11/07/23 2:27 PM) Imm Gran Auto [0.0-0.9 %] 0.3 % (11/07/23 2:27 PM) Creatinine Level [0.55-1.02 mg/dL] 0.71 mg/dL (11/07/23 2:27 PM) Eos, Auto [1.0-6.0 %] 2.1 % (11/07/23 2:27 PM) Vital Signs Most recent to oldest [Reference Range]: 1 Temperature Temporal Artery [36-38 Deg C ] 36.1 Deg C (11/07/23 1:50 PM) Heart Rate Monitored [60-100 bpm] 79 bpm (11/07/23 1:50 PM) Blood Pressure [90-140/60-90 mmHg] 106/6 8mmHg (11/07/23 1:50 PM) Mean Arterial Pressure, Cuff [70-110 mmH g] 81 mmHg (11/07/23 1:50 PM) Weight 84 kg (11/07/23 1:50 PM) Weight Dosing 84.000 kg (11/07/23 1:50 PM) Height 163 cm (11/07/23 1:50 PM) Body Mass Index 31.62 kg/m2 (11/07/23 1:50 PM) Social History Social History Type Response Tobacco Never tobacco user T obacco Use:. Sex Female Hospital Discharge Instructions Patient Education 11/07/2023 14:28:31 Dizziness Dizziness Dizziness is a common problem. It is a feeling of unsteadiness or light- headedness. You may feel like you are about to faint. Dizziness can lead to injury if you stumble or fall. Anyone can become dizzy, but dizziness is more common in older adults. This condition can be caused by a number of things, including medicines, dehydration, or illness. Follow these instructions at home: Eating and drinking ??? Drink enough fluid to keep your urine pale yellow. This helps to keep you from becoming dehydrated. Try to drink more clear fluids, such as water. ??? Do not drink alcohol. ??? Limit your caffeine intake if told to do so by your health care provider. Check ingredients andnutrition facts to see if a food or beverage contains caffeine. ??? Limit your salt (sodium) intake if told to do so by your health care provider. Check ingredients and nutrition facts to see if a food or beverage contains sodium. Activity ??? Avoid making quick movements. ??? Rise slowly from chairs and steady yourself until you feel okay. ??? In the morning, first sit up on the side of the bed. When you feel okay, stand slowly while youhold onto something until you know that your balance is good. ??? If you need to veneer jointer operator one place for a long time, move your legs often. Tighten and relax the muscles in your legs while you are standing. ??? Do not drive or use machinery if you feel dizzy. ??? Avoid bending down if you feel dizzy. Place items in your home so that they are easy for you toreach without leaning over. Lifestyle ??? Do not use any products that contain nicotine or tobacco. These products include cigarettes, chewing tobacco, and vaping devices, such as e-cigarettes. If you need help quitting, ask your health care provider. ??? Try to reduce your stress level by using methods such as yoga or meditation. Talk with your health care provider if you need help to manage your stress. General instructions ??? Watch your dizziness for any changes. ??? Take esox-tgy-gcktqkm and prescription medicines only as told by your health care provider. Talk with your health care provider if you think that your dizziness is caused by a medicine that you are taking. ??? Tell a friend or a family member that you are feeling dizzy. If he or she notices any changes in your behavior, have this person call your health care provider. ??? Keep all follow-up visits. This is important. Contact a health care provider if: ??? Your dizziness does not go away or you have new symptoms. ??? Your dizziness or light-headedness gets worse. ??? You feel nauseous. ??? You have reduced hearing. ??? You have a fever. ??? You have neck pain or a stiff neck. ??? Your dizziness leads to an injury or a fall. Get help right away if: ??? You vomit or have diarrhea and are unable to eat or drink anything. ??? You have problems talking, walking, swallowing, or using your arms, hands, or legs. ??? You feel generally weak. ??? You have any bleeding. ??? You are not thinking clearly or you have trouble forming sentences. It may take a friend or family member to notice this. ??? You have chest pain, abdominal pain, shortness of breath, or sweating. ??? Your vision changes or you develop a severe headache. These symptoms may represent a serious problem that is an emergency. Do not wait to see if the symptoms will go away. Get medical help right away. Call your local emergency services (911 in the [place] Do not drive yourself to the hospital. Summary ??? Dizziness is a feeling of unsteadiness or light-headedness. This condition can be caused by a number of things, including medicines, dehydration, or illness. ??? Anyone can become dizzy, but dizziness is more common in older adults. ??? Drink enough fluid to keep your urine pale yellow. Do not drink alcohol. ??? Avoid making quick movements if you feel dizzy. Monitor your dizziness for any changes. This information is not intended to replace advice given to you by your health care provider. Make sure you discuss any questions you have with your health care provider. Document Revised: 10/09/2021 Document Reviewed: 10/09/2021 [employer] Patient Education ?? 2022 [employer]. Follow Up Care 11/07/2023 13:50:34 With:Primary Care Physician Address: When:1 to 2 weeks only if needed Physician Emergency department Note * Domonique Gomez MD: PERFORM Event Display: ED Note Physician Authored Date: [id number] PARTHA VELOZ :1980 Age:43 years Sex:Female Visit Date:11/07/2023 Primary Care Physician: Sree High ENGINE ASSEMBLER-C Basic Information Time Seen: Domonique Gomez MD / 11/07/2023 13:51 Chief Complaint Several days dizziness, nausea, 1 time emesis 3 days ago. Not tolerating PO. Appears very pale. Denies blood in stool. Abd pain upper radiating laterally, no heart hx, gastric bypass 10 months ago. Denies hx vertigo History Of Present Illness: 42-year-old female past medical history??fibromyalgia, endometriosis,??CHUN, obesity, status post??gastric bypass back in December presents to the ED c/o 1 year of??intermittent dizziness associated with??intermittent nausea and vomiting/retching. Last episode of vomiting was 3 days ago. Symptoms stable and unchanged otherwise. Pt had a full work up for this including ENT consult at [facility] and??a reassuring??MRI and is awaiting vestibular physical therapy, her first appointment she tells me, is??the day after tomorrow. Pt denies abdominal pain, she has had no diarrhea, no fever/chills. No cp, sob. No STEEN, no visual changes, no numbness/tingling/weakness. Physical Exam Vitals & Measurements T:??36.1?C ??(Temporal Artery)?? HR:??79??(Monitored)?? BP:??106/68?? HT:??163??cm?? WT:??84??kg?? BMI:??31.62?? General: A&Ox3, Calm, no apparent distress, well developed, pleasant and cooperative ?? HEENT: Head ATNC. Eyes: ALLEN. Extraocular Mobility: intact and symmetrical. Conjunctiva: non-injected, anicteric, no discharge. Oral Cavity: moist. Neck: no masses, no crepitus. Lymph Nodes: no cervical lymphadenopathy? Respiratory: CTA bilaterally, no wheezing, no rales/crackles? CV: RRR, normal S1, normal S2, no murmurs, rubs or gallops ?? Abdomen : soft, non-tender, non-distended, no rebound or guarding, no hepatosplenomegaly ?? Extremities: no le swelling, warm and well-perfused, no cyanosis, capillary refill <2 seconds? Skin: no rash, no lesions, no bruising? Neuro: normal tone, normal strength in all 4 extremities, sensation intact?? Medical Decision Makin-year-old female past medical history??fibromyalgia, endometriosis,??CHUN, obesity, status post??gastric bypass back in December presents to the ED c/o 1 year of??dizziness associated with??nausea and vomiting/retching. ?? Patient is well and nontoxic-appearing with reassuring vital signs, her exam is reassuring including benign abd exam, she has no neurological deficit.?? EKG??shows no evidence of ischemia. She is scheduled to start vestibular rehab in 2 days ?? Plan: check basic labs, Meclizine, Zofran, monitor and r/a ?? Labs interpreted by myself show no leukocytosis, no major electrolyte abnormality, renal function is at baseline Discussed findings with patient The patient was given meclizine and Zofran with improvement in her symptoms. I recommended follow-up for vestibular rehab as scheduled??in 2 days Discharge instructions and return precautions discussed, all questions answered. Procedure No Qualifying Data Assessment/Plan 1.??Vestibular dysfunction??H81.90 Ordered: Discharge Patient, 11/07/23 15:28:00 EST, Constant Indicator ?? Orders: Zofran, 4 mg = 2 mL, IV Push, Soln, every 6 hr, PRN nausea/vomiting, First Dose: 11/07/23 14:10:00 EST, STAT CV EKG ED, 11/07/23 13:57:00 EST, Routine, Reason: Dizziness, Stop date and time 11/07/23 13:57:00 EST, ORD_SET_REQ_DT_RANGE, [facility] Internal Person Id Patient Education Dizziness Follow Up With When Contact Information Primary Care Physician Within 1 to 2 weeks, only if needed Additional Instructions: Medication Reconciliation Unchanged acetaminophen (Tylenol 8 Hour 650 mg oral tablet, extended release)1 tab Oral (given by mouth) every 8 hours as needed as needed for fever. Refills: 0. ?? FLUoxetine ?? lamoTRIgine (LaMICtal) ?? multivitamin with minerals (Vitamin D with Minerals oral tablet) ?? ondansetron (!-Zofran ODT 4 mg oral tablet, disintegrating)1 tab Oral (given by mouth) 3 times a day as needed as needed for nausea/vomiting for 4 Days. Refills: 0. ?? oxybutynin ?? propranolol Problem List/Past Medical History Ongoing No qualifying data Historical No qualifying data Medication Administration Given meclizine, 25 mg, Oral Zofran, 4 mg, IV Push Allergies No Known Medication Allergies Social History Alcohol Never Electronic Cigarette/Vaping Electronic Cigarette Use: Never. Substance Use Never Tobacco Never tobacco user Tobacco Use:. Lab Results CBC and Differential?? LATEST RESULTS?? HISTORICAL RESULTS?? WBC?? 11/07/23 14:27?? 6.6?? 10/09/23?? 5.8?? RBC?? 11/07/23 14:27?? 4.0 ??Low?? 10/09/23?? 4.0 ??Low?? Hgb?? 11/07/23 14:27?? 12.4?? 10/09/23?? 12.3?? Hct?? 11/07/23 14:27?? 35.4 ??Low?? 10/09/23?? 34.4 ??Low?? MCV?? 11/07/23 14:27?? 88.5?? 10/09/23?? 86.2?? MCH?? 11/07/23 14:27?? 31.0?? 10/09/23?? 30.8?? MCHC?? 11/07/23 14:27?? 35.0?? 10/09/23?? 35.8 ??High?? RDW-CV?? 11/07/23 14:27?? 12.7?? 10/09/23?? 12.8?? Platelets?? 11/07/23 14:27?? 244?? 10/09/23?? 316?? Neutro Auto?? 11/07/23 14:27?? 62.3?? 10/09/23?? 60.2?? Lymph Auto?? 11/07/23 14:27?? 29.8?? 10/09/23?? 32.5?? [place] Auto?? 11/07/23 14:27?? 5.0?? 10/09/23?? 5.0?? Eos, Auto?? 11/07/23 14:27?? 2.1?? 10/09/23?? 1.7?? Basophil Auto?? 11/07/23 14:27?? 0.5?? 10/09/23?? 0.3?? Imm Gran Auto?? 11/07/23 14:27?? 0.3?? 10/09/23?? 0.3?? Neutro Absolute?? 11/07/23 14:27?? 4.1?? 10/09/23?? 3.5? Routine Chemistry?? LATEST RESULTS?? HISTORICAL RESULTS?? Sodium Level?? 11/07/23 14:27?? 136?? 10/09/23?? 138?? Potassium Level?? 11/07/23 14:27?? 4.1?? 10/09/23?? 3.3 ??Low?? Chloride Level?? 11/07/23 14:27?? 104?? 10/09/23?? 102?? CO2?? 11/07/23 14:27?? 23?? 10/09/23?? 26?? Alk Phos?? 11/07/23 14:27?? 104?? 03/09/23?? 130?? AST?? 11/07/23 14:27?? 26?? 03/09/23?? 86 ??High?? ALT?? 11/07/23 14:27?? 33?? 03/09/23?? 83 ??High?? BUN?? 11/07/23 14:27?? 19 ??High?? 10/09/23?? 13?? Glucose Level?? 11/07/23 14:27?? 83?? 10/09/23?? 153 ??High?? Creatinine Level?? 11/07/23 14:27?? 0.71?? 10/09/23?? 0.81?? eGFR AA?? 11/07/23 14:27?? 107?? 10/09/23?? 91?? eGFR Non-AA?? 11/07/23 14:27?? 107?? 10/09/23?? 91?? Calcium Level?? 11/07/23 14:27?? 9.2?? 10/09/23?? 9.2?? Protein Total?? 11/07/23 14:27?? 6.9?? 03/09/23?? 7.8?? Albumin Level?? 11/07/23 14:27?? 3.5?? 03/09/23?? 4.0?? Bilirubin Total?? 11/07/23 14:27?? 0.5?? 03/09/23?? 1.3 ??High?? Magnesium Level?? 11/07/23 14:27?? 2.2?? 03/09/23?? 1.5 ??Low? Electronically Signed on 11/07/23 05:18 PM Domonique Gomez MD Emergency department Discharge instructions * Domonique Gomez MD: PERFORM Event Display: ED Discharge Information Authored Date: [id number] PARTHA VELOZ :1980 Age:43 years Sex:Female Visit Date:11/07/2023 Primary Care Physician: Sree High ENGINE ASSEMBLER-C Discharge Instructions We would like to thank you for allowing us to assist you with your healthcare needs. The following includes patient education materials and information regarding your injury/illness. Diagnosis from Today's Visit Vestibular dysfunction Discharge Vitals Temperature??(Temporal Artery) 97.0 ??F (36.1 ??C) Heart Rate??(Monitored) 79 Blood Pressure?? 106/68?? Height?? 64.17 in (163 cm) Weight?? 185.22 lb (84 kg) BMI?? 31.62 Allergies No Known Medication Allergies What to Do Next Instructions from Your Care Team Please follow-up with vestibular rehab as scheduled. ??Return to the emergency department for any new or worsening symptoms.?? Follow-up with your primary care doctor for reevaluation in 1 to 2 weeksas needed. You Need to Schedule the Following Appointments Follow Up with??Primary Care Physician When:??Within 1 to 2 weeks, only if needed You were treated today on an emergency [...] (Vitamin D with Minerals oral tablet) Unchanged ondansetron (!-Zofran ODT 4 mg oral tablet, disintegrating) 1 tab Oral (given by mouth) 3 times a day as needed for as needed for nausea/vomiting Gastroenteritis Hypokalemia Duration: 4 Days Unchanged oxybutynin Unchanged propranolol Education Materials Dizziness Dizziness is a common problem. It is a feeling of unsteadiness or light- headedness. You may feel like you are about to faint. Dizziness can lead to injury if you stumble or fall. Anyone can become dizzy, but dizziness is more common in older adults. This condition can be caused by a number of things, including medicines, dehydration, or illness. Follow these instructions at home: Eating and drinking ? Drink enough fluid to keep your urine pale yellow. This helps to keep you from becoming dehydrated.Try to drink more clear fluids, such as water. ? Do not drink alcohol. ? Limit your caffeine intake if told to do so by your health care provider. Check ingredients and nutrition facts to see if a food or beverage contains caffeine. ? Limit your salt (sodium) intake if told to do so by your health care provider. Check ingredients and nutrition facts to see if a food or beverage contains sodium. Activity ? Avoid making quick movements. ? Rise slowly from chairs and steady yourself until you feel okay. ? In the morning, first sit up on the side of the bed. When you feel okay, stand slowly while you hold onto something until you know that your balance is good. ? If you need to veneer jointer operator one place for a long time, move your legs often. Tighten and relax the muscles in your legs while you are standing. ? Do not drive or use machinery if you feel dizzy. ? Avoid bending down if you feel dizzy. Place items in your home so that they are easy for you to reach without leaning over. Lifestyle ? Do not use any products that contain nicotine or tobacco. These products include cigarettes, chewing tobacco, and vaping devices, such as e-cigarettes. If you need help quitting, ask your health careprovider. ? Try to reduce your stress level by using methods such as yoga or meditation. Talk with your health care provider if you need help to manage your stress. General instructions ? Watch your dizziness for any changes. ? Take zumo-arp-mozcgom and prescription medicines only as told by your health care provider. Talk with your health care provider if you think that your dizziness is caused by a medicine that you are taking. ? Tell a friend or a family member that you are feeling dizzy. If he or she notices any changes in your behavior, have this person call your health care provider. ? Keep all follow-up visits. This is important. Contact a health care provider if: ? Your dizziness does not go away or you have new symptoms. ? Your dizziness or light-headedness gets worse. ? You feel nauseous. ? You have reduced hearing. ? You have a fever. ? You have neck pain or a stiff neck. ? Your dizziness leads to an injury or a fall. Get help right away if: ? You vomit or have diarrhea and are unable to eat or drink anything. ? You have problems talking, walking, swallowing, or using your arms, hands, or legs. ? You feel generally weak. ? You have any bleeding. ? You are not thinking clearly or you have trouble forming sentences. It may take a friend or family member to notice this. ? You have chest pain, abdominal pain, shortness of breath, or sweating. ? Your vision changes or you develop a severe headache. These symptoms may represent a serious problem that is an emergency. Do not wait to see if the symptoms will go away. Get medical help right away. Call your local emergency services (911 in the [place] Do not drive yourself to the hospital. Summary ? Dizziness is a feeling of unsteadiness or light-headedness. This condition can be caused by a number of things, including medicines, dehydration, or illness. ? Anyone can become dizzy, but dizziness is more common in older adults. ? Drink enough fluid to keep your urine pale yellow. Do not drink alcohol. ? Avoid making quick movements if you feel dizzy. Monitor your dizziness for any changes. This information is not intended to replace advice given to you by your health care provider. Make sure you discuss any questions you have with your health care provider. Document Revised: 10/09/2021 Document Reviewed: 10/09/2021 [employer] Patient Education ?? 2022 [employer] Tests Performed Medications and Immunizations Administered Given meclizine, 25 mg, Oral Zofran, 4 mg, IV Push Lab Test Name Test Result Date/Time WBC 6.6 x10^3/mcL 11/07/2023 14:27 EST RBC 4.0 x10^6/mcL 11/07/2023 14:27 EST Hgb 12.4 g/dL 11/07/2023 14:27 EST Hct 35.4 % 11/07/2023 14:27 EST MCV 88.5 fL 11/07/2023 14:27 EST MCH 31.0 pg 11/07/2023 14:27 EST MCHC 35.0 g/dL 11/07/2023 14:27 EST RDW-CV 12.7 % 11/07/2023 14:27 EST Platelets 244 x10^3/mcL 11/07/2023 14:27 EST Neutro Auto 62.3 % 11/07/2023 14:27 EST Lymph Auto 29.8 % 11/07/2023 14:27 EST [place] Auto 5.0 % 11/07/2023 14:27 EST Eos, Auto 2.1 % 11/07/2023 14:27 EST Basophil Auto 0.5 % 11/07/2023 14:27 EST Imm Gran Auto 0.3 % 11/07/2023 14:27 EST Neutro Absolute 4.1 x10^3/mcL 11/07/2023 14:27 EST Sodium Level 136 mmol/L 11/07/2023 14:27 EST Potassium Level 4.1 mmol/L 11/07/2023 14:27 EST Chloride Level 104 mmol/L 11/07/2023 14:27 EST CO2 23 mmol/L 11/07/2023 14:27 EST Alk Phos 104 unit/L 11/07/2023 14:27 EST AST 26 unit/L 11/07/2023 14:27 EST ALT 33 unit/L 11/07/2023 14:27 EST BUN 19 mg/dL 11/07/2023 14:27 EST Glucose Level 83 mg/dL 11/07/2023 14:27 EST Creatinine Level 0.71 mg/dL 11/07/2023 14:27 EST eGFR AA 107 11/07/2023 14:27 EST eGFR Non-AA 107 11/07/2023 14:27 EST Calcium Level 9.2 mg/dL 11/07/2023 14:27 EST Protein Total 6.9 g/dL 11/07/2023 14:27 EST Albumin Level 3.5 g/dL 11/07/2023 14:27 EST Bilirubin Total 0.5 mg/dL 11/07/2023 14:27 EST Magnesium Level 2.2 mg/dL 11/07/2023 14:27 EST Patient/Catcher Plug Signature Patient Name:PARTHA VELOZ I have received this information and my questions have been answered. Patient/Catcher Plug Name: Patient/Catcher Plug Signature: Relationship to Patient: Witness Name/Signature: Date: Electronically Signed on: 11/07/2023 15:29 ESTSigned by:SERAFIN Patient Care team information Care Team Personnel Name: Sree High Position: No Access Member Role: Informed Provider Address: Address: [address] Name: Domonique Gomez MD Position: Physician Member Role: Admitting Physician Address: Address: [address] [place] [address] Care Team Related Persons Name: JAXON GREER Address: Home [address] [phone] Name: ANGELA AREVALO
--- OUTSIDE RECORDS SUMMARY | 2024-06-01 06:51 | XMS_ITS | Encounter Summary ---
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 Name Role Phone Debby Puri MD Primary Care Provider [phone] Encounter Details Date Type Department Care Team (Late st Contact Info) Description 07/29/2020 Lab Requisition [facility]ology & Laboratory Medicine - [address] [address] Outr Resulting Lab, Provider Social History Tobacco [...] Procedure Name Priority Date/Time Associated Diagnosis Comments DO NOT ORDER STANDALONE - BROAD COVID TEST Today 07/29/2020 9:47 EDT COVID-19 TESTING Routine 07/29/2020 9:47 EDT documented in this encounter Results * DO NOT ORDER STANDALONE - BROAD COVID TEST (07/29/2020 9:47 EDT) COVID-19 rt-PCR Result NEGATIVE Negative 07/30/2020 15:36 EDT [facility] Comment: 2019-novel Coronavirus (2019-nCoV) not detected by the qRT-PCR assay. Consider testing for other respiratory viruses or re-collecting for 2019-nCoV testing. Note: Optimum timing for peak viral levels during infections caused by 2019-nCoV have not been determined. Collection of multiple specimens from the same patient may be necessary to detect the virus. Limitations Positive results are indicative of active infection with SARS-CoV-2 but do not rule out bacterial infection or co-infection with other viruses. The agent detected may not be the definite cause of disease. In addition, detection of viral RNA may not indicate the presence of infectious virus or that SARS-CoV-2 is the causative agent for clinical symptoms. Negative results do not preclude SARS-CoV-2 infection and should not be used as the sole basis for patient management decisions. Negative results must be combined with clinical observations, patient history, and epidemiological information. False negative results may also occur if amplification inhibitors are present in the specimen or if inadequate numbers of organisms are present in the specimen. Optimum specimen types and timing for peak viral levels during infections caused by SARS-CoV-2 have not been fully determined. Collection of multiple specimens (types and time points) from the same patient may be necessary to detect the virus. The test was validated for use with upper respiratory specimens obtained via nasopharyngeal or oropharyngeal swabs in VTM, UTM, M4, M5, M6, saline, and MTM media. The performance of this test has not been established for other specimens. Specimens collected using other FDA recommended Specimen Collection Materials listed in the FDA COVID-[employer] communication (February 11, 2020) are processed with the caveat that they were not all validated for use with this test and the result must be interpreted in this context. Furthermore, a false negative results may occur if a specimen is improperly collected, transported or handled. If the virus mutates in the RT-PCR target region, SARS-CoV-2 may not be detected or may be detected less predictably. Inhibitors or other types of interference may produce a false negative result. An interference study evaluating the effect of common cold medications was not performed. This test is not FDA-cleared but its performance characteristics were established by our CLIA-certified, CAP-accredited, high complexity laboratory in accordance with CLIA regulations, [employer] (CAP) guidelines (Feb 04, 2020), and FDA guidance (Jan 16, 2020). This test is only for use under the Food and Drug Administration's Emergency Use Authorization. Swab ENTIRE NASOPHARYNX / Unknown 07/29/2020 9:47 EDT 07/29/2020 16:13 EDT Provider Outr Resulting Lab MICROBIOLOGY - GENERAL ORDERABLES [facility] [place], [place] * COVID-19 TESTING (07/29/2020 9:47 EDT) COVID-19 rt-PCR Result NEGATIVE Negative 07/30/2020 18:22 EDT [facility] Comment: 2019-novel Coronavirus (2019-nCoV) not detected by the qRT-PCR assay. Consider testing for other respiratory viruses or re-collecting for 2019-nCoV testing. Note: Optimum timing for peak viral levels during infections caused by 2019-nCoV have not been determined. Collection of multiple specimens from the same patient may be necessary to detect the virus. Limitations Positive results are indicative of active infection with SARS-CoV-2 but do not rule out bacterial infection or co-infection with other viruses. The agent detected may not be the definite cause of disease. In addition, detection of viral RNA may not indicate the presence of infectious virus or that SARS-CoV-2 is the causative agent for clinical symptoms. Negative results do not preclude SARS-CoV-2 infection and should not be used as the sole basis for patient management decisions. Negative results must be combined with clinical observations, patient history, and epidemiological information. False negative results may also occur if amplification inhibitors are present in the specimen or if inadequate numbers of organisms are present in the specimen. Optimum specimen types and timing for peak viral levels during infections caused by SARS-CoV-2 have not been fully determined. Collection of multiple specimens (types and time points) from the same patient may be necessary to detect the virus. The test was validated for use with upper respiratory specimens obtained via nasopharyngeal or oropharyngeal swabs in VTM, UTM, M4, M5, M6, saline, and MTM media. The performance of this test has not been established for other specimens. Specimens collected using other FDA recommended Specimen Collection Materials listed in the FDA COVID-19 [employer] communication (February 11, 2020) are processed with the caveat that they were not all validated for use with this test and the result must be interpreted in this context. Furthermore, a false negative results may occur if a specimen is improperly collected, transported or handled. If the virus mutates in the RT-PCR target region, SARS-CoV-2 may not be detected or may be detected less predictably. Inhibitors or other types of interference may produce a false negative result. An interference study evaluating the effect of common cold medications was not performed. This test is not FDA-cleared but its performance characteristics were established by our CLIA-certified, CAP-accredited, high complexity laboratory in accordance with CLIA regulations, [employer] (CAP) guidelines (Feb 04, 2020), and FDA guidance (Jan 16, 2020). This test is only for use under the Food and Drug Administration's Emergency Use Authorization. 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
--- OUTSIDE RECORDS SUMMARY | 2024-06-01 06:51 | XMS_ITS | Continuity of Care Document ---
Author Organization [facility] Address [address] [place] [address] Care Team Providers Care Lace Weaver Name Role Phone Sree High Primary Care Physician [phone] Encounter [facility]CT[facility] Date(s): 10/09/23 - 10/09/[address] [address] Encounter Diagnosis Nonspecific dizziness(Discharge Diagnosis) - 10/09/23 Discharge Disposition: Home or Self Care Attending Physician: Collin Boles MD Admitting Physician: Collin Boles MD Allergies, Adverse Reactions, Alerts No Known Medication Allergies Assessment and Plan Extracted from: Title:Clinical Document Author:Loly Kumar te:10/09/23 Diagnosis: 1. Nonspecific di zziness Comment: Diagnosis: Dizziness Comment: Functional Status 10/09/23 Family Member Travel History No recent t ravel Recent Travel History No recent travel Other exposure to Infectious Disease Non e Medications !-Zofran ODT 4 mg oral tablet, disintegrating 4 mg = 1 tab, Oral, TID, PRN as needed for nausea/vomiting, # 12 tab, 0 Refill(s), Pharmacy: [facility], 163, cm, 03/09/23 17:36:00 EDT, Height/Length Dosing, 84, kg, 03/09/23 17:36:00 EDT,Weight Dosing Start Date: 03/09/23 Stop Date: 03/13/23 Status: Ordered FLUoxetine 0 Refill(s) Start Date: 12/16/22 Status: Ordered LaMICtal 0 Refill(s) Start Date: 12/16/22 Status: Ordered meclizine 25 mg oral tablet, chewable 25 mg = 1 tab, Chewed, TID, PRN as needed for dizziness, X 7 days, # 21 tab, 0 Refill(s), 10/16/23 4:34:00 PM CAE ENGINEER, Pharmacy: [facility], 163, cm, 10/09/23 16:36:00 EST, Height, 56.25, kg, 10/09/23 16:36:00 EST, Weight Dosing Start Date: 10/09/23 Stop Date: 10/16/23 Status: Ordered oxybutynin 0 Refill(s) Start Date: 12/16/22 Status: Ordered potassium bicarbonate 20 mEq oral tablet, effervescent 20 mEq = 1 tab, Oral, Daily, dissolve in water or juice, X 3 days, # 3 tab, 0 Refill(s), 10/12/23 4:34:00 PM CAE ENGINEER, Pharmacy: [facility], 163, cm, 10/09/23 16:36:00 EST, Height, 56.25, kg, 10/09/23 16:36:00 EST, Weight Dosing Start Date: 10/09/23 Stop Date: 10/12/23 Status: Ordered propranolol 0 Refill(s) Start Date: 12/16/22 Status: Ordered Tylenol 8 Hour 650 mg oral tablet, extended release 650 mg = 1 tab, Oral, every 8 hr, PRN as needed for fever, # 30 tab, 0 Refill(s), Pharmacy: [facility], 163, cm, 12/16/22 12:46:00 EST, Height/Length Dosing, 100, kg, 12/16/22 12:46:00 EST,Weight Dosing Start Date: 12/16/22 Status: Ordered Vitamin D with Minerals oral tablet 0 Refill(s) Start Date: 02/11/23 Status: Ordered Results Laboratory List Name Date Basic Metabolic Panel 10/09/23 CBC w/ Diff 10/09/23 Automated Diff 10/09/23 Most recent to oldest [Reference Range]: 1 WBC [5.0-10.0 x10^3/mcL] 5.8 x10^3/mcL (10/09/23 4:59 PM) RBC [4.1-5.3 x10^6/mcL] 4.0 x10^6/mcL *LOW* (10/09/23 4:59 PM) Neutro Auto [40.0-75.0 %] 60.2 % (10/09/23 4:59 PM) Lymph Auto [20.0-50.0 %] 32.5 % (10/09/23 4:59 PM) Simpson Auto [2.0-15.0 %] 5.0 % (10/09/23 4:59 PM) Basophil Auto [0.0-1.0 %] 0.3 % (10/09/23 4:59 PM) BUN [7-18 mg/dL] 13 mg/dL (10/09/23 4:59 PM) Glucose Level [74-106 mg/dL] 153 mg/dL *HI* (10/09/23 4:59 PM) Potassium Level [3.5-5.1 mmol/L] 3.3 mmo l/L *LOW* (10/09/23 4:59 PM) MCV [80.0-96.0 fL] 86.2 fL (10/09/23 4:59 PM) MCHC [31.0-35.0 g/dL] 35.8 g/dL *HI* (10/09/23 4:59 PM) Sodium Level [136-145 mmol/L] 138 mmol/L (10/09/23 4:59 PM) Hct [37.0-47.0 %] 34.4 % *LOW* (10/09/23 4:59 PM) Calcium Level [8.5-10.1 mg/dL] 9.2 mg/dL (10/09/23 4:59 PM) MCH [26.0-32.0 pg] 30.8 pg (10/09/23 4:59 PM) Neutro Absolute 3.5 x10^3/mcL *NA* (10/09/23 4:59 PM) Hgb [12.0-16.0 g/dL] 12.3 g/dL (10/09/23 4:59 PM) Platelets [130-450 x10^3/mcL] 316 x10^3/ mcL (10/09/23 4:59 PM) CO2 [21-32 mmol/L] 26 mmol/L (10/09/23 4:59 PM) eGFR Non-AA [>=60] 91 (10/09/23 4:59 PM) eGFR AA [>=60] 91 (10/09/23 4:59 PM) Chloride Level [98-107 mmol/L] 102 mmol/ L (10/09/23 4:59 PM) RDW-CV [11.5-14.5 %] 12.8 % (10/09/23 4:59 PM) Imm Gran Auto [0.0-0.9 %] 0.3 % (10/09/23 4:59 PM) Creatinine Level [0.55-1.02 mg/dL] 0.81 mg/dL (10/09/23 4:59 PM) Eos, Auto [1.0-6.0 %] 1.7 % (10/09/23 4:59 PM) Vital Signs Most recent to oldest [Reference Range]: 1 Temperature Temporal Artery [36-38 Deg C ] 36.2 Deg C (10/09/23 4:30 PM) Peripheral Pulse Rate [60-100 bpm] 80 bp m (10/09/23 4:30 PM) Respiratory Rate [12-24 br/min] 18 br/mi n (10/09/23 4:30 PM) Blood Pressure [90-140/60-90 mmHg] 125/8 6mmHg (10/09/23 4:30 PM) Mean Arterial Pressure, Cuff [70-110 mmH g] 99 mmHg (10/09/23 4:30 PM) Weight Dosing 56.25 kg (10/09/23 4:36 PM) Weight Estimated 56.25 kg (10/09/23 4:30 PM) Height 163.000 cm (10/09/23 4:36 PM) Height/Length Estimated 163.000 cm (10/09/23 4:30 PM) Social History Social History Type Response Tobacco Never tobacco user T obacco Use:. Sex Female Hospital Discharge Instructions Patient Education 10/09/2023 16:31:34 Dizziness Dizziness Dizziness is a common problem. [...] is good. ??? 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 ??? Take iscl-gyt-xsdogii and prescription medicines only as told by [...] provider. Document Revised: 10/09/2021 Document Reviewed: 10/09/2021 [employer] Patient Education ?? 2022 [employer] Follow Up Care 10/09/2023 16:30:08 With:Sree High Address: [address] [phone] [phone] When:1 week Physician Emergency department Note * Erlin Cheatham MD: PERFORM Event Display: ED Note Physician Authored Date: [id number] PARTHA VELOZ :1980 Age:43 years Sex:Female Visit Date:10/09/2023 Primary Care Physician: [place], Sree Chandrakant CERTIFIED PUBLIC ACCOUNTANT-C Basic Information Time Seen: Erlin Cheatham MD / 10/09/2023 16:40 Chief Complaint Pt states she has been having dizzy spells for the last several months and has been seen for thisand said her potassium has been low in the past. Pt states the dizziness has been worse the last 2 days. Pt is AAOx4. History Of Present Illness: 43-year-old lady past medical history significant for but not limited to gastric bypass surgery??who presents today for evaluation of dizziness. ??She describes symptoms ongoing for several months,??since she was admitted in April at [facility]. ??While inpatient, on chart review, patient developed dizziness and ultimately underwent ENT and neurology evaluations. ??MRI without acute abnormality. ??Since then, patient has continued to??experience sensation of dizziness and disequilibrium.?? Somewhat??worse over the last 2 days or so without clear inciting factor. ??She notably denies any??focal numbness, tingling, weakness, vision or speech changes. ??No chest pain, palpitations,??subjective tachycardia. ??Has??been referred to vestibular physical therapy but has not had first appointment yet. Review of Systems: Positive for dizziness and otherwise as noted in HPI Physical Exam Vitals & Measurements T:??36.2?C ??(Temporal Artery)?? HR:??80??(Peripheral)?? RR:??18?? BP:??125/86?? SpO2:??97%?? HT:??163.000??cm?? WT:??56.25??kg??(Estimated)?? O2 Therapy:??Room air?? Vital signs and nursing notes reviewed ?? CONSTITUTIONAL: _well appearing in no acute distress SKIN: _Warm, dry, and intact without rash EYES: _extraocular movements are grossly intact, clear conjunctiva HENT: _Normocephalic, atraumatic, moist mucus membranes NECK: _no obvious swelling, normal range of motion PULMONARY: _normal chest rise and fall, lungs ctab, no respiratory distress or stridor CARDIOVASCULAR: _regular rate, regular rhythm, distal extremities are warm and well perfused GASTROINTESTINAL: _nondistended GENITOURINARY: _deferred NEUROLOGIC: _ ? Cranial nerves 2-12 tested and intact, pupils??3 mm and reactive bilaterally, sensation to light touch intact in upper and lower extremities bilaterally ??no pronator drift, strength 5/5 in upper andlower extremities bilaterally, rapid alternating movements normal, finger to nose normal MUSCULOSKELETAL: _no gross deformities, atraumatic PSYCHIATRIC: _normal mood and affect ? Medical Decision Making: ? On my initial evaluation the patient appears generally well and non-toxic, they engage and answer questions appropriately, hemodynamically stable, no evidence of tachycardia, easy WOB with SpO2 saturation upper 90s to 100% on room air, afebrile by oral temperature.?? On chart review, has received appropriate ENT and neurology consultations for this problem.?? Workup including MRI a fairly unrevealing. Normal neurologic examination today.??She does not have any??cardiopulmonary symptoms to raisesuspicion for more of a near syncope.?? Her labs today revealed mild??hypokalemia which we will replace orally.?? Patient is currently not taking any medications and we discussed trial of meclizine for her.?? Ultimately, I agree that??vestibular PT is likely a most useful for her and encouraged herto??follow through with this referral.?? Reviewed return precautions with verbalization understanding agreement ? Medical Decision-Making: Clinical lab tests: ordered and reviewed -??Yes Tests in the medicine section of CPT??: ordered and reviewed -??Yes Review and summarize past medical records -??Yes ?? Procedure No Qualifying Data Assessment/Plan 1.??Nonspecific dizziness??R42 Ordered: meclizine 25 mg oral tablet, chewable, 25 mg = 1 tab, Chewed, TID, PRN as needed for dizziness, X 7days, # 21 tab, 0 Refill(s), 10/16/23 17:34:00 EST, Pharmacy: [facility], 163, cm, 10/09/23 16:36:00 EST, Height, 56.25, kg, 10/09/23 16:36:00 EST, Weight Dosing potassium bicarbonate 20 mEq oral tablet, effervescent, 20 mEq = 1 tab, Oral, Daily, dissolve in water or juice, X 3 days, # 3 tab, 0 Refill(s), 10/12/23 17:34:00 EST, Pharmacy: [facility],163, cm, 10/09/23 16:36:00 EST, Height, 56.25, kg, 10/09/23 16:36:00 EST, Weight Dosing Discharge Patient, 10/09/23 17:37:00 EST, Home Independently, Constant Indicator ?? Patient Education Dizziness Follow Up With When Contact Information Sree High Within [address] [address] [phone] Additional Instructions: Medication Reconciliation New Prescription meclizine (meclizine 25 mg oral tablet, chewable)1 tab Chewed 3 times a day as needed as needed fordizziness for 7 Days. Refills: 0. ?? potassium bicarbonate (potassium bicarbonate 20 mEq oral tablet, effervescent)1 tab Oral (given by mouth) every day for 3 Days. dissolve in water or juice. Refills: 0. ?? Unchanged acetaminophen (Tylenol 8 Hour 650 mg [...] Medication Administration Given meclizine, 25 mg, Oral potassium chloride, 20 mEq, Oral Allergies No Known Medication Allergies Social History Alcohol Never Electronic Cigarette/Vaping Electronic Cigarette Use: Never. Substance Use Never Tobacco Never tobacco user Tobacco Use:. Lab Results CBC and Differential?? LATEST RESULTS?? HISTORICAL RESULTS?? WBC?? 10/09/23 16:59?? 5.8?? 03/09/23?? 11.8 ??High?? RBC?? 10/09/23 16:59?? 4.0 ??Low?? 03/09/23?? 5.0?? Hgb?? 10/09/23 16:59?? 12.3?? 03/09/23?? 14.7?? Hct?? 10/09/23 16:59?? 34.4 ??Low?? 03/09/23?? 41.2?? MCV?? 10/09/23 16:59?? 86.2?? 03/09/23?? 81.9?? MCH?? 10/09/23 16:59?? 30.8?? 03/09/23?? 29.2?? MCHC?? 10/09/23 16:59?? 35.8 ??High?? 03/09/23?? 35.7 ??High?? RDW-CV?? 10/09/23 16:59?? 12.8?? 03/09/23?? 15.1?? Platelets?? 10/09/23 16:59?? 316?? 03/09/23?? 431?? Neutro Auto?? 10/09/23 16:59?? 60.2?? 03/09/23?? 77.9 ??High?? Lymph Auto?? 10/09/23 16:59?? 32.5?? 03/09/23?? 12.9 ??Low?? Simpson Auto?? 10/09/23 16:59?? 5.0?? 03/09/23?? 7.8?? Eos, Auto?? 10/09/23 16:59?? 1.7?? 03/09/23?? 0.7 ??Low?? Basophil Auto?? 10/09/23 16:59?? 0.3?? 03/09/23?? 0.3?? Imm Gran Auto?? 10/09/23 16:59?? 0.3?? 03/09/23?? 0.4?? Neutro Absolute?? 10/09/23 16:59?? 3.5?? 03/09/23?? 9.2? Routine Chemistry?? LATEST RESULTS?? HISTORICAL RESULTS?? Sodium Level?? 10/09/23 16:59?? 138?? 03/09/23?? 138?? Potassium Level?? 10/09/23 16:59?? 3.3 ??Low?? 03/09/23?? 2.4 ??Critical?? Chloride Level?? 10/09/23 16:59?? 102?? 03/09/23?? 96 ??Low?? CO2?? 10/09/23 16:59?? 26?? 03/09/23?? 22?? BUN?? 10/09/23 16:59?? 13?? 03/09/23?? 8?? Glucose Level?? 10/09/23 16:59?? 153 ??High?? 03/09/23?? 153 ??High?? Creatinine Level?? 10/09/23 16:59?? 0.81?? 03/09/23?? 0.87?? eGFR AA?? 10/09/23 16:59?? 91?? 03/09/23?? 84?? eGFR Non-AA?? 10/09/23 16:59?? 91?? 03/09/23?? 84?? Calcium Level?? 10/09/23 16:59?? 9.2?? 03/09/23?? 9.7? Electronically Signed on 10/09/23 08:40 PM Erlin Cheatham MD Emergency department Discharge instructions * Erlin Cheatham MD: PERFORM Event Display: ED Discharge Information Authored Date: [id number] PARTHA VELOZ :1980 Age:43 years Sex:Female Visit Date:10/09/2023 Primary Care Physician: Sree High CERTIFIED PUBLIC ACCOUNTANT-C Discharge Instructions We would like to thank you for allowing us to assist you with your healthcare needs. The following includes patient education materials and information regarding your injury/illness. Diagnosis from Today's Visit Nonspecific dizziness Discharge Vitals Temperature??(Temporal Artery) 97.2 ??F (36.2 ??C) Heart Rate??(Peripheral) 80 Respiratory Rate?? 18 Blood Pressure?? 125/86?? Height?? 64.17 in (163.000 cm) Weight??(Estimated) 124.03 lb (56.25 kg) Allergies No Known Medication Allergies What to Do Next Instructions from Your Care Team Thank you for coming to the emergency department today, it has been our pleasure to take care of you.?? Your labs showed normal cell counts, kidney function, but did show some slightly low potassium.??We are going to replace this??over the next several days.?? We [facility]??and the consultations from ENT and neurology. ??They had recommended that you try??physical therapy for this since your other testing such as MRI??was overall reassuring/did not have a clear explanation for your symptoms.?? You may try using the meclizine as prescribed to see if this helps. ??Please follow-up with the??neurology team as soon as you are able. ??Return to the emergency departmentif you have any new or concerning symptoms including??any new speech or vision trouble, any new numbness, tingling, weakness, chest pain or heart racing, fever or other concerns. You Need to Schedule the Following Appointments Follow Up with??Sree High When:??Within 1 week Where: [address] [phone] [phone] You were treated today on an emergency [...] Much When Why Instructions Next Dose New meclizine (meclizine 25 mg oral tablet, chewable) 1 tab Chewed 3 times a day as needed for as needed for dizziness Nonspecific dizziness Duration: 7 Days Pickup at [facility] New potassium bicarbonate (potassium bicarbonate 20 mEq oral tablet, effervescent) 1 tab Oral (given by mouth) Every day Nonspecific dizziness Duration: 3 Days dissolve in water or juice ?? Pickup at [facility] Unchanged acetaminophen (Tylenol 8 Hour 650 [...] Duration: 4 Days Unchanged oxybutynin Unchanged propranolol Pharmacy Information [facility]: [address], [place] [phone] Education Materials Dizziness Dizziness is a common [...] is good. ? 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 ? Take dxaj-ccz-hsjepli and prescription medicines only as told by [...] provider. Document Revised: 10/09/2021 Document Reviewed: 10/09/2021 [employer] Patient Education ?? 2022 [employer]. Tests Performed Lab Test Name Test Result Date/Time WBC 5.8 x10^3/mcL 10/09/2023 16:59 EST RBC 4.0 x10^6/mcL 10/09/2023 16:59 EST Hgb 12.3 g/dL 10/09/2023 16:59 EST Hct 34.4 % 10/09/2023 16:59 EST MCV 86.2 fL 10/09/2023 16:59 EST MCH 30.8 pg 10/09/2023 16:59 EST MCHC 35.8 g/dL 10/09/2023 16:59 EST RDW-CV 12.8 % 10/09/2023 16:59 EST Platelets 316 x10^3/mcL 10/09/2023 16:59 EST Neutro Auto 60.2 % 10/09/2023 16:59 EST Lymph Auto 32.5 % 10/09/2023 16:59 EST Simpson Auto 5.0 % 10/09/2023 16:59 EST Eos, Auto 1.7 % 10/09/2023 16:59 EST Basophil Auto 0.3 % 10/09/2023 16:59 EST Imm Gran Auto 0.3 % 10/09/2023 16:59 EST Neutro Absolute 3.5 x10^3/mcL 10/09/2023 16:59 EST Sodium Level 138 mmol/L 10/09/2023 16:59 EST Potassium Level 3.3 mmol/L 10/09/2023 16:59 EST Chloride Level 102 mmol/L 10/09/2023 16:59 EST CO2 26 mmol/L 10/09/2023 16:59 EST BUN 13 mg/dL 10/09/2023 16:59 EST Glucose Level 153 mg/dL 10/09/2023 16:59 EST Creatinine Level 0.81 mg/dL 10/09/2023 16:59 EST eGFR AA 91 10/09/2023 16:59 EST eGFR Non-AA 91 10/09/2023 16:59 EST Calcium Level 9.2 mg/dL 10/09/2023 16:59 EST Patient/Junior Web Designer Signature Patient Name:PARTHA VELOZ I have received this information and my questions have been answered. Patient/Junior Web Designer Name: Patient/Junior Web Designer Signature: Relationship to Patient: Witness Name/Signature: Date: Electronically Signed on: 10/09/2023 17:38 ESTSigned by:KARLA Discharge summary * Loly Kumar: PERFORM Event Display: Discharge Note Authored Date: * Loly Kumar: PERFORM Event Display: Discharge Note Authored Date: Diagnosis: 1. Nonspecific dizziness Comment: Diagnosis: Dizziness Comment: Electronically Signed on 10/09/23 05:51 PM Loly Kumar Patient Care team information Care Team Personnel Name: Sree HighP-C Position: No Access Member Role: Primary Care Physician Address: Address: [address] [address]- [place] Name: Erlin Cheatham MD Position: Physician Member Role: ED Physician Address: Address: [address] [place] [address] [address] [place] [address] Name: Natalee Wakefield RN Position: Nurse Member Role: Registered Nurse Care Team Related Persons Name: JAXON GREER Address: Home [address] [phone] Name: ANGELA AREVALO
--- OUTSIDE RECORDS SUMMARY | 2024-06-01 06:51 | XMS_ITS | Continuity of Care Document ---
Author Organization [facility] Address [address] [place] [address] Care Team Providers Care Family Caseworker Name Role Phone Sree High Primary Care Physician Encounter [facility] Date(s): 01/12/24 - 01/12/[address] [address] Encounter Diagnosis Nausea & vomiting(Discharge Diagnosis) - 01/12/24 Discharge Disposition: Home or Self Care Attending Physician: Pinky Roy MD Admitting Physician: Pinky Roy MD Allergies, Adverse Reactions, Alerts No Known Medication Allergies Assessment and Plan Extracted from: Title:ED Provider Note Author:Charity Roy MD Date:01/12/24 Assessment/Plan 1.??Nausea & vomiting??R11.2 Patient with nausea and vomiting over the last couple of years complicated by the fact that 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 Prescription for Zofran 4 mg every 6 hours as needed is sent to the pharmacy for the patient??if she worsens to return to the emergency department or see her primary care provider sooner. Ordered: ondansetron 4 mg oral tablet, disintegrating, 4 mg = 1 tab, Oral, every 6 hr, PRN as needed for nausea/vomiting, X 10 days, # 15 tab, 0 Refill(s), 01/22/24 15:30:00 EST, Pharmacy: [id number], 163, cm, 11/07/23 13:52:00 EST, Height, 84, kg, 11/07/23 13:56:00 EST, Weight Dosing Discharge Patient, 01/12/24 15:29:00 EST, Home Independently, Constant Indicator ?? Patient Education Nausea and Vomiting, Adult Follow Up With When Contact Information Follow up with primary care provider Within 1 to 2 weeks Additional Instructions: Medications !-Zofran ODT 4 mg oral tablet, disintegrating 4 mg = 1 tab, Oral, TID, PRN as needed for nausea/vomiting, # 12 tab, 0 Refill(s), Pharmacy: [facility], 163, cm, 03/09/23 17:36:00 EDT, Height/Length Dosing, 84, kg, 03/09/23 17:36:00 EDT,Weight Dosing Start Date: 03/09/23 Stop Date: 03/13/23 Status: Ordered FLUoxetine 0 Refill(s) Start Date: 12/16/22 Status: Ordered LaMICtal 0 Refill(s) Start Date: 12/16/22 Status: Ordered ondansetron 4 mg oral tablet, disintegrating 4 mg = 1 tab, Oral, every 6 hr, PRN as needed for nausea/vomiting, X 10 days, # 15 tab, 0 Refill(s), 01/22/24 2:30:00 PM [facility], Pharmacy: [facility], 163, cm, 11/07/23 13:52:00 EST, Height, 84,kg, 11/07/23 13:56:00 EST, Weight Dosing Start Date: 01/12/24 Stop Date: 01/22/24 Status: Ordered oxybutynin 0 Refill(s) Start Date: 12/16/22 Status: Ordered propranolol 0 Refill(s) Start Date: 12/16/22 Status: Ordered Tylenol 8 Hour 650 mg oral tablet, extended release 650 mg = 1 tab, Oral, every 8 hr, PRN as needed for fever, # 30 tab, 0 Refill(s), Pharmacy: [facility], 163, cm, 12/16/22 12:46:00 EST, Height/Length Dosing, 100, kg, 12/16/22 12:46:00 EST,Weight Dosing Start Date: 12/16/22 Status: Ordered Vitamin D with Minerals oral tablet 0 Refill(s) Start Date: 02/11/23 Status: Ordered Results Laboratory List Name Date Lipase Level 01/12/24 CBC w/ Diff 01/12/24 Comprehensive Metabolic Panel 01/12/24 Automated Diff 01/12/24 Most recent to oldest [Reference Range]: 1 WBC [5.0-10.0 x10^3/mcL] 5.5 x10^3/mcL (01/12/24 11:30 AM) RBC [4.1-5.3 x10^6/mcL] 4.0 x10^6/mcL *LOW* (01/12/24 11:30 AM) Neutro Auto [40.0-75.0 %] 69.1 % (01/12/24 11:30 AM) Lymph Auto [20.0-50.0 %] 24.6 % (01/12/24 11:30 AM) [place] Auto [2.0-15.0 %] 4.0 % (01/12/24 11:30 AM) Basophil Auto [0.0-1.0 %] 0.5 % (01/12/24 11:30 AM) BUN [7-18 mg/dL] 23 mg/dL *HI* (01/12/24 11:30 AM) Glucose Level [74-106 mg/dL] 58 mg/dL *LOW* (01/12/24 11:30 AM) Potassium Level [3.5-5.1 mmol/L] 4.0 mmo l/L (01/12/24 11:30 AM) MCV [80.0-96.0 fL] 88.9 fL (01/12/24 11:30 AM) AST [15-37 unit/L] 25 unit/L (01/12/24 11:30 AM) ALT [14-59 unit/L] 42 unit/L (01/12/24 11:30 AM) MCHC [31.0-35.0 g/dL] 35.0 g/dL (01/12/24 11:30 AM) Sodium Level [136-145 mmol/L] 140 mmol/L (01/12/24 11:30 AM) Hct [37.0-47.0 %] 35.1 % *LOW* (01/12/24 11:30 AM) Lipase Level [16-77 unit/L] 50 unit/L 1 (01/12/24 12:00 PM) Calcium Level [8.5-10.1 mg/dL] 9.4 mg/dL (01/12/24 11:30 AM) Albumin Level [3.4-5.0 g/dL] 4.0 g/dL (01/12/24 11:30 AM) Protein Total [6.4-8.2 g/dL] 7.3 g/dL (01/12/24 11:30 AM) MCH [26.0-32.0 pg] 31.1 pg (01/12/24 11:30 AM) Neutro Absolute 3.8 x10^3/mcL *NA* (01/12/24 11:30 AM) Bilirubin Total [0.2-1.0 mg/dL] 1.2 mg/d L *HI* (01/12/24 11:30 AM) Hgb [12.0-16.0 g/dL] 12.3 g/dL (01/12/24 11:30 AM) Alk Phos [46-146 unit/L] 109 unit/L (01/12/24 11:30 AM) Platelets [130-450 x10^3/mcL] 260 x10^3/ mcL (01/12/24 11:30 AM) CO2 [21-32 mmol/L] 22 mmol/L (01/12/24 11:30 AM) eGFR Non-AA [>=60] 109 (01/12/24 11:30 AM) eGFR AA [>=60] 109 (01/12/24 11:30 AM) Chloride Level [98-107 mmol/L] 102 mmol/ L (01/12/24 11:30 AM) RDW-CV [11.5-14.5 %] 12.6 % (01/12/24 11:30 AM) Imm Gran Auto [0.0-0.9 %] 0.2 % (01/12/24 11:30 AM) Creatinine Level [0.55-1.02 mg/dL] 0.68 mg/dL (01/12/24 11:30 AM) Eos, Auto [1.0-6.0 %] 1.6 % (01/12/24 11:30 AM) 1Interpretive Data: Effective 09/06/22, [facility] has switched to a revised Lipase test.Note new ReferenceRange. Vital Signs Most recent to oldest [Reference Range]: 1 2 3 Temperature Temporal Artery [36-38 Deg C] 36.3 Deg C (01/12/24 11:03 AM) Peripheral Pulse Rate [60-100 bpm] 70 bpm (01/12/24 3:16 PM) 85 bpm (01/12/24 12:58 PM) 91 bpm (01/12/24 11:03 AM) Respiratory Rate [12-24 br/min] 16 br/min (01/12/24 3:16 PM) 16 br/min (01/12/24 12:58 PM) 16 br/min (01/12/24 11:03 AM) Blood Pressure [90-140/60-90 mmHg] 110/59mmHg (01/12/24 3:16 PM) 110/83mmHg (01/12/24 11:03 AM) Mean Arterial Pressure, Cuff [65-140 mmHg] 92 mmHg (01/12/24 11:03 AM) Weight Estimated 53.98 kg (01/12/24 11:03 AM) Body Mass Index Estimated 20.43 kg/m2 (01/12/24 11:03 AM) Height/Length Estimated 162.56 cm (01/12/24 11:03 AM) Social History Social History Type Response Tobacco Never tobacco user T obacco Use:. Sex Female Hospital Discharge Instructions Patient Education 01/12/2024 14:29:16 Nausea and Vomiting, Adult Nausea and Vomiting, Adult Nausea is the feeling that you have an upset stomach or that you are about to vomit. As nausea getsworse, it can lead to vomiting. Vomiting is when stomach contents forcefully come out of your mouthas a result of nausea. Vomiting can make [...] Tell your health care provider about them. Eating and drinking ??? Take an oral rehydration solution (ORS). This is a drink that is sold at pharmacies and retail stores. ??? Drink clear fluids slowly and in small amounts as you are able. Clear fluids include water, icechips, low-calorie sports drinks, and fruit juice that has water added (diluted fruit juice). ??? Eat bland, tvii-ev-vakpkd foods in small amounts as you are able. These foods include bananas, applesauce, rice, lean meats, toast, and crackers. ??? Avoid fluids that contain a lot of sugar or caffeine, such as energy drinks, sports drinks, andsoda. ??? Avoid alcohol. ??? Avoid spicy or fatty foods. General instructions ??? Take sled-cko-bcfuywz and prescription medicines only as told by your health care provider. ??? Drink enough fluid to keep your urine pale yellow. ??? Wash your hands often using soap and water for at least 20 seconds. If soap and water are not available, use hand billing analyst. ??? Make sure that everyone in your household washes their hands well and often. ??? Rest at home while you recover. ??? Watch your condition for any changes. ??? Take slow and deep breaths when you feel nauseous. ??? Keep all follow-up visits. This is [...] ??? You have bloody or black stools (feces) or stools that look like tar. ??? [...] ??? Sleepiness. ??? Weakness. These symptoms may be an emergency. Get help right away. Call 911. ??? Do not wait to see if the symptoms will go away. ??? Do not drive yourself to the hospital. [...] and drinking to prevent dehydration. ??? Take ggsv-uao-ykswjaw and prescription medicines only as told by your health care provider. ??? Contact your health care provider if your symptoms get worse, or you have new symptoms. ??? Keep all follow-up visits. This is important. This information is not intended to replace advice given to you by your health care provider. Make sure you discuss any questions you have with your health care provider. Document Revised: 05/11/2022 Document Reviewed: 05/11/2022 [employer] Patient Education ?? 2022 [employer]. Follow Up Care 01/12/2024 11:03:07 With:Follow up with primary care provider Address: When:1 to 2 weeks Physician Emergency department Note * Pinky Roy MD: PERFORM Event Display: ED Note Physician Authored Date: [id number] PARTHA VELOZ :1980 Age:43 years Sex:Female Visit Date:01/12/2024 Primary Care Physician: Sree High LINE [facility]-C Basic Information Time Seen: Pinky Roy MD / 01/12/2024 11:26 Chief Complaint Pt has not felt well for a few days. Cannot keep anything down, weak, feels she may be dehydrated History Of Present Illness: Patient reports that she has had nausea and vomiting over the last couple of days??she said about 1year ago she had a gastric bypass surgery??at [facility]??with a Saúl-en-Y. ??Patient reports she has had??to??go??to multiple emergency departments??for fluids??and help with??nausea and rehydration??since her gastric bypass surgery.?? Patient denies any fever chills ear nose or throat pain??chest pain cough??positive nausea and vomiting??positive epigastric abdominal??pain??patient reports last bowel movement was last night??no significant constipation slight diarrhea??no blackness or blood invomit or in stool??no urinary symptoms??no extremity edema no skin rashes. ??Patient reports she has lost over 100 pounds since her gastric bypass surgery. Review of Systems: see hpi for ros Physical Exam Vitals & Measurements T:??36.3?C ??(Temporal Artery)?? HR:??70??(Peripheral)?? RR:??16?? BP:??110/59?? SpO2:??99%?? HT:??162.56??cm?? WT:??53.98??kg??(Estimated)?? BMI:??20.43?? O2 Therapy:??Room air?? General: Alert and oriented, well nourished,?No??acute distress Eye: PER?Normal??conjunctiva,??No??scleral icterus HENT: Normocephalic,??nontraumatic??Normal hearing Lungs: Clear to auscultation,?Non-labored?? respiration Heart:?Normal?? rate,?Regular??rhythm,?No??murmur,?No??gallop,?No??edema Chest: wall excursion wnl no abnormal movements no obvious deformities Abdomen: Soft, non-tender, non-distended,?Normal?? bowel sounds,?No??masses Rectal exam normal tone??mcdonough??soft stool??no masses??no hemorrhoids??guaiac negative Musculoskeletal:?Normal?? range of motion and strength,?No??tenderness,?No??swelling Skin: Skin is warm, dry and pink,?No??rashes,?No??lesions Neurologic: Awake, alert and oriented X4 Psychiatric: Cooperative, appropriate mood and affect Medical Decision Making: For MDM please see under assessment and plan Procedure No Qualifying Data Assessment/Plan 1.??Nausea & vomiting??R11.2 Patient with nausea and vomiting over the last couple of years complicated by the fact that she hada Saúl-en-Y gastric bypass??surgery about 1 year ago??at [facility]??patient??improved with 4 mg IV Zofran along with 3 L of IV fluids??patient was able to tolerate over half a glass of flory perri prior to discharge.?? Prescription for Zofran 4 mg every 6 hours as needed is sent to the pharmacy for the patient??if she worsens to return to the emergency department or see her primary care provider sooner. Ordered: ondansetron 4 mg oral tablet, disintegrating, 4 mg = 1 tab, Oral, every 6 hr, PRN as needed for nausea/vomiting, X 10 days, # 15 tab, 0 Refill(s), 01/22/24 15:30:00 EST, Pharmacy: [id number], 163, cm, 11/07/23 13:52:00 EST, Height, 84, kg, 11/07/23 13:56:00 EST, Weight Dosing Discharge Patient, 01/12/24 15:29:00 EST, Home Independently, Constant Indicator ?? Patient Education Nausea and Vomiting, Adult Follow Up With When Contact Information Follow up with primary care provider Within 1 to 2 weeks Additional Instructions: Medication Reconciliation Changed ondansetron (!-Zofran ODT 4 mg oral tablet, disintegrating)1 tab Oral (given by mouth) 3 times a day as needed as needed for nausea/vomiting for 4 Days. Refills: 0. ?? ondansetron (ondansetron 4 mg oral tablet, disintegrating)1 tab Oral (given by mouth) every 6 hoursas needed as needed for nausea/vomiting for 10 Days. Refills: 0. ?? Unchanged acetaminophen (Tylenol 8 [...] Historical No qualifying data Medication Administration Given 0.9% NaCl bolus, 1000 mL, Medication Bolus 0.9% NaCl bolus, 1000 mL, Medication Bolus 0.9% NaCl bolus, 1000 mL, Medication Bolus Zofran, 4 mg, IV Push Allergies No Known Medication Allergies Social History Alcohol Never Electronic Cigarette/Vaping Electronic Cigarette Use: Never. Substance Use Never Tobacco Never tobacco user Tobacco Use:. Lab Results CBC and Differential?? LATEST RESULTS?? HISTORICAL RESULTS?? WBC?? 01/12/24 11:30?? 5.5?? 11/07/23?? 6.6?? RBC?? 01/12/24 11:30?? 4.0 ??Low?? 11/07/23?? 4.0 ??Low?? Hgb?? 01/12/24 11:30?? 12.3?? 11/07/23?? 12.4?? Hct?? 01/12/24 11:30?? 35.1 ??Low?? 11/07/23?? 35.4 ??Low?? MCV?? 01/12/24 11:30?? 88.9?? 11/07/23?? 88.5?? MCH?? 01/12/24 11:30?? 31.1?? 11/07/23?? 31.0?? MCHC?? 01/12/24 11:30?? 35.0?? 11/07/23?? 35.0?? RDW-CV?? 01/12/24 11:30?? 12.6?? 11/07/23?? 12.7?? Platelets?? 01/12/24 11:30?? 260?? 11/07/23?? 244?? Neutro Auto?? 01/12/24 11:30?? 69.1?? 11/07/23?? 62.3?? Lymph Auto?? 01/12/24 11:30?? 24.6?? 11/07/23?? 29.8?? [place] Auto?? 01/12/24 11:30?? 4.0?? 11/07/23?? 5.0?? Eos, Auto?? 01/12/24 11:30?? 1.6?? 11/07/23?? 2.1?? Basophil Auto?? 01/12/24 11:30?? 0.5?? 11/07/23?? 0.5?? Imm Gran Auto?? 01/12/24 11:30?? 0.2?? 11/07/23?? 0.3?? Neutro Absolute?? 01/12/24 11:30?? 3.8?? 11/07/23?? 4.1? Routine Chemistry?? LATEST RESULTS?? HISTORICAL RESULTS?? Sodium Level?? 01/12/24 11:30?? 140?? 11/07/23?? 136?? Potassium Level?? 01/12/24 11:30?? 4.0?? 11/07/23?? 4.1?? Chloride Level?? 01/12/24 11:30?? 102?? 11/07/23?? 104?? CO2?? 01/12/24 11:30?? 22?? 11/07/23?? 23?? Alk Phos?? 01/12/24 11:30?? 109?? 11/07/23?? 104?? AST?? 01/12/24 11:30?? 25?? 11/07/23?? 26?? ALT?? 01/12/24 11:30?? 42?? 11/07/23?? 33?? BUN?? 01/12/24 11:30?? 23 ??High?? 11/07/23?? 19 ??High?? Glucose Level?? 01/12/24 11:30?? 58 ??Low?? 11/07/23?? 83?? Creatinine Level?? 01/12/24 11:30?? 0.68?? 11/07/23?? 0.71?? eGFR AA?? 01/12/24 11:30?? 109?? 11/07/23?? 107?? eGFR Non-AA?? 01/12/24 11:30?? 109?? 11/07/23?? 107?? Calcium Level?? 01/12/24 11:30?? 9.4?? 11/07/23?? 9.2?? Protein Total?? 01/12/24 11:30?? 7.3?? 11/07/23?? 6.9?? Albumin Level?? 01/12/24 11:30?? 4.0?? 11/07/23?? 3.5?? Bilirubin Total?? 01/12/24 11:30?? 1.2 ??High?? 11/07/23?? 0.5?? Lipase Level?? 01/12/24 12:00?? 50?? 02/26/23?? 158 ??High? Electronically Signed on 01/12/24 03:31 PM Pinky Roy MD Emergency department Discharge instructions * Pinky Roy MD: PERFORM Event Display: ED Discharge Information Authored Date: [id number] PARTHA VELOZ :1980 Age:43 years Sex:Female Visit Date:01/12/2024 Primary Care Physician: Sree High LINE [facility]-C Discharge Instructions We would like to thank you for allowing us to assist you with your healthcare needs. The following includes patient education materials and information regarding your injury/illness. Diagnosis from Today's Visit Nausea & vomiting Discharge Vitals Temperature??(Temporal Artery) 97.3 ??F (36.3 ??C) Heart Rate??(Peripheral) 70 Respiratory Rate?? 16 Blood Pressure?? 110/59?? Height?? 64.00 in (162.56 cm) Weight??(Estimated) 119.03 lb (53.98 kg) BMI?? 20.43 Allergies No Known Medication Allergies What to Do Next Instructions from Your Care Team Try to stay hydrated.?? Try to drink fluids with calories.?? Take Zofran (ondansetron) 4 mg every 6hours as needed.?? If you worsen return to the emergency department. You Need to Schedule the Following Appointments Follow Up with??Follow up with primary care provider When:??Within 1 to 2 weeks You were treated today on an emergency [...] How Much When Why Instructions Next Dose Changed ondansetron (!-Zofran ODT 4 mg oral tablet, disintegrating) 1 tab Oral (given by mouth) 3 times a day as needed for as needed for nausea/vomiting Gastroenteritis Hypokalemia Duration: 4 Days Changed ondansetron (ondansetron 4 mg oral tablet, disintegrating) 1 tab Oral (given by mouth) Every 6 hours as needed for as needed for nausea/vomiting Nausea & vomiting Duration: 10 Days Pickup at [facility] Unchanged acetaminophen (Tylenol 8 Hour 650 mg oral tablet, extended release) 1 tab Oral (given by mouth) Every 8 hours as needed for as needed for fever Periapical abscess Unchanged FLUoxetine Unchanged lamoTRIgine (LaMICtal) Unchanged multivitamin with minerals (Vitamin D with Minerals oral tablet) Unchanged oxybutynin Unchanged propranolol Pharmacy Information [facility]: [address], [place] [phone] Education Materials Nausea and Vomiting, Adult Nausea is the feeling that you have an upset stomach or that you are about to vomit. As nausea getsworse, it can lead to vomiting. Vomiting is when stomach contents forcefully come out of your mouthas a result of nausea. Vomiting can make [...] Tell your health care provider about them. Eating and drinking ? Take an oral rehydration solution (ORS). This is a drink that is sold at pharmacies and retail stores. ? Drink clear fluids slowly and in small amounts as you are able. Clear fluids include water, ice chips, low-calorie sports drinks, and fruit juice that has water added (diluted fruit juice). ? Eat bland, sgtp-hm-fdsama foods in small amounts as you are able. These foods include bananas, applesauce, rice, lean meats, toast, and crackers. ? Avoid fluids that contain a lot of sugar or caffeine, such as energy drinks, sports drinks, and soda. ? Avoid alcohol. ? Avoid spicy or fatty foods. General instructions ? Take uhkr-vyb-dpauwlb and prescription medicines only as told by your health care provider. ? Drink enough fluid to keep your urine pale yellow. ? Wash your hands often using soap and water for at least 20 seconds. If soap and water are not available, use hand billing analyst. ? Make sure that everyone in your household washes their hands well and often. ? Rest at home while you recover. ? Watch your condition for any changes. ? Take slow and deep breaths when you feel nauseous. ? Keep all follow-up visits. This is [...] ? You have bloody or black stools (feces) or stools that look like tar. ? [...] ? Sleepiness. ? Weakness. These symptoms may be an emergency. Get help right away. Call 911. ? Do not wait to see if the symptoms will go away. ? Do not drive yourself to the hospital. Summary ? Nausea is the feeling that you have an upset stomach or that you are about to vomit. As nausea getsworse, it can lead to vomiting. Vomiting can make you feel weak and cause you to become dehydrated. ? Follow instructions from your health care provider about eating and drinking to prevent dehydration. ? Take qxad-zjp-yllbiye and prescription medicines only as told by your health care provider. ? Contact your health care provider if your symptoms get worse, or you have new symptoms. ? Keep all follow-up visits. This is important. This information is not intended to replace advice given to you by your health care provider. Make sure you discuss any questions you have with your health care provider. Document Revised: 05/11/2022 Document Reviewed: 05/11/2022 [employer] Patient Education ?? 2022 [employer] Tests Performed Medications and Immunizations Administered Given 0.9% NaCl bolus, 1000 mL, Medication Bolus 0.9% NaCl bolus, 1000 mL, Medication Bolus 0.9% NaCl bolus, 1000 mL, Medication Bolus Zofran, 4 mg, IV Push Lab Test Name Test Result Date/Time WBC 5.5 x10^3/mcL 01/12/2024 11:30 EST RBC 4.0 x10^6/mcL 01/12/2024 11:30 EST Hgb 12.3 g/dL 01/12/2024 11:30 EST Hct 35.1 % 01/12/2024 11:30 EST MCV 88.9 fL 01/12/2024 11:30 EST MCH 31.1 pg 01/12/2024 11:30 EST MCHC 35.0 g/dL 01/12/2024 11:30 EST RDW-CV 12.6 % 01/12/2024 11:30 EST Platelets 260 x10^3/mcL 01/12/2024 11:30 EST Neutro Auto 69.1 % 01/12/2024 11:30 EST Lymph Auto 24.6 % 01/12/2024 11:30 EST [place] Auto 4.0 % 01/12/2024 11:30 EST Eos, Auto 1.6 % 01/12/2024 11:30 EST Basophil Auto 0.5 % 01/12/2024 11:30 EST Imm Gran Auto 0.2 % 01/12/2024 11:30 EST Neutro Absolute 3.8 x10^3/mcL 01/12/2024 11:30 EST Sodium Level 140 mmol/L 01/12/2024 11:30 EST Potassium Level 4.0 mmol/L 01/12/2024 11:30 EST Chloride Level 102 mmol/L 01/12/2024 11:30 EST CO2 22 mmol/L 01/12/2024 11:30 EST Alk Phos 109 unit/L 01/12/2024 11:30 EST AST 25 unit/L 01/12/2024 11:30 EST ALT 42 unit/L 01/12/2024 11:30 EST BUN 23 mg/dL 01/12/2024 11:30 EST Glucose Level 58 mg/dL 01/12/2024 11:30 EST Creatinine Level 0.68 mg/dL 01/12/2024 11:30 EST eGFR AA 109 01/12/2024 11:30 EST eGFR Non-AA 109 01/12/2024 11:30 EST Calcium Level 9.4 mg/dL 01/12/2024 11:30 EST Protein Total 7.3 g/dL 01/12/2024 11:30 EST Albumin Level 4.0 g/dL 01/12/2024 11:30 EST Bilirubin Total 1.2 mg/dL 01/12/2024 11:30 EST Lipase Level 50 unit/L 01/12/2024 12:00 EST Patient/Gear Machine Operator General Signature Patient Name:PARTHA VELOZ I have received this information and my questions have been answered. Patient/Gear Machine Operator General Name: Patient/Gear Machine Operator General Signature: Relationship to Patient: Witness Name/Signature: Date: Electronically Signed on: 01/12/2024 15:31 ESTSigned by:DL Patient Care team information Care Team Personnel Name: Sree High Position: No Access Member Role: Informed Provider Address: Address: [address] [address] [place] Care Team Related Persons Name: JAXON GREER Address: Home [address] [id number] Name: ANGELA AREVALO
--- OUTSIDE RECORDS SUMMARY | 2024-06-01 06:51 | XMS_ITS | Continuity of Care Document ---
Author Organization [facility] Address [address] [place] [address] Care Team Providers Care Insole Filler Name Role Phone Manavespinoza Debby Meghana Primary Care Physician Encounter [facility] Date(s): 02/11/23 - 02/11/[address] [id number] Encounter Diagnosis Abdominal pain(Discharge Diagnosis) - 02/11/23 Free fluid in pelvis(Discharge Diagnosis) - 02/11/23 Discharge Disposition: Home or Self Care Attending Physician: Erlin Cheatham MD Admitting Physician: Erlin Cheatham MD Allergies, Adverse Reactions, Alerts No Known Medication Allergies Assessment and Plan Extracted from: Title:ED note Author:Umair Glasgow MD Date:02/11/23 42-year-old female status po st gastric bypass a little over a month ago presents with abdominal pain, located in the central abdomen and epigastric region for the past couple days has been gradually getting worse. Has not some nausea but able to tolerate small amounts of liquid at home but overall decreased p.o. intake. Patient was signed out to me by previous physician Dr. Cheatham. On my examination patient clinically looks very well has normal vital signs and abdominal exam is soft nonperitoneal, has minimal reproducible periumbilical and epigastric abdominal tenderness but overall she feels well. Instructions were to follow-up with CT scan, CT scan with oral contrast was normal with the exception of trace pelvic fluid which is unlikely related to current clinical presentation. She was hypokalemic on her labs other labs are reassuring. Given IV potassium replacement here in the ER. Given 3 days of potassium replacement at home. Patient was instructed to follow-up with her surgeon, given strict return precautions to come back to the ER with any worsening symptoms. Discharged in stable condition. Addendum by Umair Glasgow MD on February 11, 2023 21:10 EDT Overall exact etiology of her pain is no t entirely clear, but given the normal scan and reassuring clinical exam she is appropriate for discharge home. This may just be secondary pain from the procedure and new anatomic arrangement having a lower threshold for distention and PO intake. Functional Status 02/11/23 Other exposure to Infectious Disease Non e Medications FLUoxetine 0 Refill(s) Start Date: 12/16/22 Status: Ordered ibuprofen 600 mg oral tablet 600 mg = 1 tab, Oral, every 8 hr, # 30 tab, 0 Refill(s), Pharmacy: [id number], 163, cm, 12/16/22 12:46:00 EST, Height/Length Dosing, 100, kg, 12/16/22 12:46:00 EST, Weight Dosing Start Date: 12/16/22 Status: Ordered LaMICtal 0 Refill(s) Start Date: 12/16/22 Status: Ordered oxybutynin 0 Refill(s) Start Date: 12/16/22 Status: Ordered potassium bicarbonate 20 mEq oral tablet, effervescent 20 mEq = 1 tab, Oral, Daily, dissolve in water or juice, X 3 days, # 3 tab, 0 Refill(s), 02/14/23 21:40:00 EDT, Pharmacy: [id number], 162, cm, 02/11/23 15:18:00 EDT, Height/Length Dosing, 88, kg, 02/11/23 15:18:00 EDT, Weight Dosing Start Date: 02/11/23 Stop Date: 02/14/23 Status: Ordered propranolol 0 Refill(s) Start Date: 12/16/22 Status: Ordered Tylenol 8 Hour 650 mg oral tablet, extended release 650 mg = 1 tab, Oral, every 8 hr, PRN as needed for fever, # 30 tab, 0 Refill(s), Pharmacy: [id number], 163, cm, 12/16/22 12:46:00 EST, Height/Length Dosing, 100, kg, 12/16/22 12:46:00 EST,Weight Dosing Start Date: 12/16/22 Status: Ordered Vitamin D with Minerals oral tablet 0 Refill(s) Start Date: 02/11/23 Status: Ordered Results Laboratory List Name Date Urinalysis Microscopic 02/11/23 Urinalysis with Micro if Indicated and C ulture if Indicated 02/11/23 SARS-CoV-2 (COVID-19)/Flu/RSV (GeneXpert ) 02/11/23 CBC w/ Diff 02/11/23 Comprehensive Metabolic Panel 02/11/23 Lipase Level 02/11/23 Automated Diff 02/11/23 Most recent to oldest [Reference Range]: 1 WBC [5.0-10.0 x10^3/mcL] 8.7 x10^3/mcL (02/11/23 3:54 PM) RBC [4.1-5.3 x10^6/mcL] 4.9 x10^6/mcL (02/11/23 3:54 PM) Neutro Auto [40.0-75.0 %] 68.3 % (02/11/23 3:54 PM) Lymph Auto [20.0-50.0 %] 21.7 % (02/11/23 3:54 PM) Dickens Auto [2.0-15.0 %] 6.3 % (02/11/23 3:54 PM) Basophil Auto [0.0-1.0 %] 0.2 % (02/11/23 3:54 PM) BUN [7-18 mg/dL] 7 mg/dL (02/11/23 3:54 PM) UA Color Dark Yellow (02/11/23 5:39 PM) UA WBC [0-3] 0-3 (02/11/23 5:39 PM) Glucose Level [74-106 mg/dL] 100 mg/dL (02/11/23 3:54 PM) Potassium Level [3.5-5.1 mmol/L] 2.9 mmo l/L *LOW* (02/11/23 3:54 PM) MCV [80.0-96.0] 83.7 (02/11/23 3:54 PM) UA Urobilinogen Positive *ABN* (02/11/23 5:39 PM) UA Hyal Cast Few /HPF (02/11/23 5:39 PM) UA Bili [Negative] 3+ *ABN* (02/11/23 5:39 PM) UA Ketones 3+ *ABN* (02/11/23 5:39 PM) AST [15-37 unit/L] 21 unit/L (02/11/23 3:54 PM) ALT [14-59 unit/L] 27 unit/L (02/11/23 3:54 PM) MCHC [31.0-35.0 g/dL] 35.1 g/dL *HI* (02/11/23 3:54 PM) Sodium Level [136-145 mmol/L] 137 mmol/L (02/11/23 3:54 PM) UA RBC [0-2] 0-2 (02/11/23 5:39 PM) UA Leuk Est Negative (02/11/23 5:39 PM) UA Nitrite Negative (02/11/23 5:39 PM) UA Glucose [Negative] Negative (02/11/23 5:39 PM) Hct [37.0-47.0 %] 41.0 % (02/11/23 3:54 PM) UA Bacteria Rare /HPF (02/11/23 5:39 PM) Lipase Level [16-77 unit/L] 169 unit/L *HI* (02/11/23 3:54 PM) Calcium Level [8.5-10.1 mg/dL] 9.6 mg/dL (02/11/23 3:54 PM) Albumin Level [3.4-5.0 g/dL] 4.1 g/dL (02/11/23 3:54 PM) Protein Total [6.4-8.2 g/dL] 8.0 g/dL (02/11/23 3:54 PM) UA Protein 2+ *ABN* (02/11/23 5:39 PM) MCH [26.0-32.0 pg] 29.4 pg (02/11/23 3:54 PM) Neutro Absolute 5.9 x10^3/mcL *NA* (02/11/23 3:54 PM) Bilirubin Total [0.2-1.0 mg/dL] 0.7 mg/d L (02/11/23 3:54 PM) Hgb [12.0-16.0 g/dL] 14.4 g/dL (02/11/23 3:54 PM) Alk Phos [46-146 unit/L] 113 unit/L (02/11/23 3:54 PM) UA Blood Trace *ABN* (02/11/23 5:39 PM) UA Mucous Rare /HPF *ABN* (02/11/23 5:39 PM) UA Spec Grav >=1.030 *NA* (02/11/23 5:39 PM) Platelets [130-450 x10^3/mcL] 349 x10^3/ mcL (02/11/23 3:54 PM) CO2 [21-32 mmol/L] 21 mmol/L (02/11/23 3:54 PM) UA Squam Epithelial [None Seen] Moderate *ABN* (02/11/23 5:39 PM) UA pH 6.5 *NA* (02/11/23 5:39 PM) eGFR Non-AA [>=60] 85 (02/11/23 3:54 PM) eGFR AA [>=60] 85 (02/11/23 3:54 PM) UA Appear Hazy *ABN* (02/11/23 5:39 PM) Chloride Level [98-107 mmol/L] 100 mmol/ L (02/11/23 3:54 PM) RDW-CV [11.7-17.0 %] 14.3 % (02/11/23 3:54 PM) Imm Gran Auto [0.0-0.9 %] 0.2 % (02/11/23 3:54 PM) UA Culture Ind?. Not Indicated (02/11/23 5:39 PM) Creatinine Level [0.55-1.02 mg/dL] 0.86 mg/dL (02/11/23 3:54 PM) Employed in healthcare? Unknown *NA* (02/11/23 4:17 PM) Symptomatic as defined by CDC? Unknown *NA* (02/11/23 4:17 PM) Hospitalized due to COVID-19? Unknown *NA* (02/11/23 4:17 PM) In ICU? Unknown *NA* (02/11/23 4:17 PM) Group care resident? Unknown *NA* (02/11/23 4:17 PM) status? Unknown *NA* (02/11/23 4:17 PM) SARS-CoV-2(Covid19)PCR(GXpert COVFLURSV) [Negative] Negative (02/11/23 4:17 PM) Flu A (GXpert COVFLURSV) [Negative] Nega tive (02/11/23 4:17 PM) RSV (GXpert COVFLURSV) [Negative] Negati ve (02/11/23 4:17 PM) Flu B (GXpert COVFLURSV) [Negative] Nega tive (02/11/23 4:17 PM) Eos, Auto [1.0-6.0 %] 3.3 % (02/11/23 3:54 PM) Vital Signs Most recent to oldest [Reference Range]: 1 2 3 Temperature Temporal Artery [36-38 Deg C] 36.4 Deg C (02/11/23 3:09 PM) Peripheral Pulse Rate [60-100 bpm] 75 bpm (02/11/23 9:16 PM) 74 bpm (02/11/23 8:28 PM) 67 bpm (02/11/23 7:21 PM) Heart Rate Monitored [60-100 bpm] 72 bpm (02/11/23 9:16 PM) Respiratory Rate [12-24 br/min] 15 br/min (02/11/23 9:16 PM) 16 br/min (02/11/23 8:28 PM) 19 br/min (02/11/23 7:21 PM) Blood Pressure [90-140/60-90 mmHg] 128/77mmHg (02/11/23 9:16 PM) 109/64mmHg (02/11/23 8:28 PM) 119/78mmHg (02/11/23 7:21 PM) Weight Dosing 88.00 kg (02/11/23 3:18 PM) Weight Estimated 88.00 kg (02/11/23 3:09 PM) Height/Length Dosing 162.000 cm (02/11/23 3:18 PM) Height/Length Estimated 162.000 cm (02/11/23 3:09 PM) Social History Social History Type Response Tobacco Never tobacco user T obacco Use:. Sex Female Hospital Discharge Instructions Patient Education 02/11/2023 20:10:44 Abdominal Pain, Adult Abdominal Pain, Adult Pain [...] these instructions at home: Medicines ??? Take dnwb-ixz-eubymyr and prescription medicines only as told by [...] your condition for any changes. ??? Take nltu-gpx-ftqssfx and prescription medicines only as told by [...] provider. Document Revised: 12/23/2020 Document Reviewed: 03/14/2020 Else[employer] Patient Education ?? 2021 [employer] Follow Up Care 02/11/2023 15:09:01 With:Debby Puri MD Address: [facility] [address] [place], [place] [id number]- When:1 month Physician Emergency department Note * Umair Glasgow MD: PERFORM Event Display: ED Note Physician Authored Date: 42-year-old female status post gastric bypass a little over a month ago presents with abdominal pain, located in the central abdomen and epigastric region for the past couple days has been gradually getting worse. Has not some nausea but able to tolerate small amounts of liquid at home but overall decreased p.o. intake. Patient was signed out to me by previous physician Dr. Cheatham. On my examination patient clinically looks very well has normal vital signs and abdominal exam is soft nonperitoneal, has minimal reproducible periumbilical and epigastric abdominal tenderness but overall she feels well. Instructions were to follow-up with CT scan, CT scan with oral contrast was normal with the exception of trace pelvic fluid which is unlikely related to current clinical presentation. She was hypokalemic on her labs other labs are reassuring. Given IV potassium replacement here in the ER. Given 3 days of potassium replacement at home. Patient was instructed to follow-up with her surgeon, given strict return precautions to come back to the ER with any worsening symptoms. Discharged in stable condition. Electronically Signed on 02/11/23 09:08 PM Umair Glasgow MD * Umair Glasgow MD: PERFORM Event Display: ED Note Physician Authored Date: [id number] Overall exact etiology of her pain is not entirely clear, but given the normal scan and reassuring clinical exam she is appropriate for discharge home. This may just be secondary pain from the procedure and new anatomic arrangement having a lower threshold for distention and PO intake. Electronically Signed on 02/11/23 09:10 PM Umair Glasgow MD Emergency department Discharge instructions * Umair Glasgow MD: PERFORM Event Display: ED Discharge Information Authored Date: [id number] PARTHA VELOZ :1980 Age:42 years Sex:Female Visit Date:02/11/2023 Primary Care Physician: Debby Puri MD Discharge Instructions We would like to thank you for allowing us to assist you with your healthcare needs. The following includes patient education materials and information regarding your injury/illness. Diagnosis from Today's Visit Abdominal pain Free fluid in pelvis Discharge Vitals Temperature??(Temporal Artery) 97.5 ??F (36.4 ??C) Heart Rate??(Peripheral) 74 Respiratory Rate?? 16 Blood Pressure?? 109/64?? Height?? 63.78 in (162.000 cm) Weight??(Estimated) 194.04 lb (88.00 kg) Allergies No Known Medication Allergies What to Do Next Instructions from Your Care Team Follow-up closely with your??surgeon within the next 2 weeks. You Need to Schedule the Following Appointments Follow Up with??Debby Puri MD When:??Within 1 month Where: [facility] [address] [place] [address]- You were treated today on an emergency [...] for fever Periapical abscess Unchanged FLUoxetine Unchanged ibuprofen (ibuprofen 600 mg oral tablet) 1 tab Oral (given by mouth) Every 8 hours Periapical abscess Unchanged lamoTRIgine (LaMICtal) Unchanged multivitamin with minerals [...] these instructions at home: Medicines ? Take ezsk-ekx-nvowghd and prescription medicines only as told by [...] your condition for any changes. ? Take lxct-wcn-hmqzchj and prescription medicines only as told by [...] provider. Document Revised: 12/23/2020 Document Reviewed: 03/14/2020 [employer] Patient Education ?? 2021 [employer] Tests Performed Medications and Immunizations Administered Given !-Compazine, 10 mg, IV Push !-Zofran, 4 mg, IV Push 0.9% NaCl bolus, 1 L, IV Bolus morphine, 4 mg, IV Push morphine, 4 mg, IV Push potassium chloride, 10 mEq, 10 mEq, 10 mEq, IV Piggyback Lab Test Name Test Result Date/Time WBC 8.7 x10^3/mcL 02/11/2023 15:54 EDT RBC 4.9 x10^6/mcL 02/11/2023 15:54 EDT Hgb 14.4 g/dL 02/11/2023 15:54 EDT Hct 41.0 % 02/11/2023 15:54 EDT MCV 83.7 02/11/2023 15:54 EDT MCH 29.4 pg 02/11/2023 15:54 EDT MCHC 35.1 g/dL 02/11/2023 15:54 EDT RDW-CV 14.3 % 02/11/2023 15:54 EDT Platelets 349 x10^3/mcL 02/11/2023 15:54 EDT Neutro Auto 68.3 % 02/11/2023 15:54 EDT Lymph Auto 21.7 % 02/11/2023 15:54 EDT Dickens Auto 6.3 % 02/11/2023 15:54 EDT Eos, Auto 3.3 % 02/11/2023 15:54 EDT Basophil Auto 0.2 % 02/11/2023 15:54 EDT Imm Gran Auto 0.2 % 02/11/2023 15:54 EDT Neutro Absolute 5.9 x10^3/mcL 02/11/2023 15:54 EDT Sodium Level 137 mmol/L 02/11/2023 15:54 EDT Potassium Level 2.9 mmol/L 02/11/2023 15:54 EDT Chloride Level 100 mmol/L 02/11/2023 15:54 EDT CO2 21 mmol/L 02/11/2023 15:54 EDT Alk Phos 113 unit/L 02/11/2023 15:54 EDT AST 21 unit/L 02/11/2023 15:54 EDT ALT 27 unit/L 02/11/2023 15:54 EDT BUN 7 mg/dL 02/11/2023 15:54 EDT Glucose Level 100 mg/dL 02/11/2023 15:54 EDT Creatinine Level 0.86 mg/dL 02/11/2023 15:54 EDT eGFR AA 85 02/11/2023 15:54 EDT eGFR Non-AA 85 02/11/2023 15:54 EDT Calcium Level 9.6 mg/dL 02/11/2023 15:54 EDT Protein Total 8.0 g/dL 02/11/2023 15:54 EDT Albumin Level 4.1 g/dL 02/11/2023 15:54 EDT Bilirubin Total 0.7 mg/dL 02/11/2023 15:54 EDT Lipase Level 169 unit/L 02/11/2023 15:54 EDT UA Color Dark Yello 02/11/2023 17:39 EDT UA Appear Hazy- Clinitek 02/11/2023 17:39 EDT UA Glucose NEGATIVE 02/11/2023 17:39 EDT UA Bili 3+ 02/11/2023 17:39 EDT UA Ketones 3+ 02/11/2023 17:39 EDT UA Spec Grav >=1.030 02/11/2023 17:39 EDT UA Blood TRACE. 02/11/2023 17:39 EDT UA pH 6.5 02/11/2023 17:39 EDT UA Protein 2+ 02/11/2023 17:39 EDT UA Urobilinogen 1.0 Uro 02/11/2023 17:39 EDT UA Nitrite NEGATIVE 02/11/2023 17:39 EDT UA Leuk Est NEGATIVE 02/11/2023 17:39 EDT UA Culture Ind?. Not Indicated 02/11/2023 17:39 EDT UA WBC 0-3 02/11/2023 17:39 EDT UA RBC 0-2 02/11/2023 17:39 EDT UA Squam Epithelial Moderate 02/11/2023 17:39 EDT UA Mucous Rare 02/11/2023 17:39 EDT UA Bacteria Rare 02/11/2023 17:39 EDT UA Hyal Cast Few 02/11/2023 17:39 EDT Employed in healthcare? Unknown 02/11/2023 16:17 EDT Symptomatic as defined by CDC? Unknown 02/11/2023 16:17 EDT Hospitalized due to COVID-19? Unknown 02/11/2023 16:17 EDT In ICU? Unknown 02/11/2023 16:17 EDT Group care resident? Unknown 02/11/2023 16:17 EDT status? Unknown 02/11/2023 16:17 EDT SARS-CoV-2(Covid19)PCR(GXpert COVFLURSV) NEGATIVE 02/11/2023 16:17 EDT Flu A (GXpert COVFLURSV) NEGATIVE 02/11/2023 16:17 EDT Flu B (GXpert COVFLURSV) Neg-GeneXPert 02/11/2023 16:17 EDT RSV (GXpert COVFLURSV) Neg-GeneXPert 02/11/2023 16:17 EDT Patient/Special Events Planner Signature Patient Name:OLCOTT, PARTHA I have received this information and my questions have been answered. Patient/Special Events Planner Name: Patient/Special Events Planner Signature: Relationship to Patient: Witness Name/Signature: Date: Electronically Signed on: 02/11/2023 21:11 EDTSigned by:[facility] Emergency department Note * Ryanne Cevallos A: PERFORM Event Display: ED Notes Authored Date: Patient Care team information Care Team Personnel Name: Debby Puri MD Position: No Access Member Role: Primary Care Physician Address: Address: [facility] [address] [place] [id number]- Name: Erlin Cheatham MD Position: Physician Member Role: ED Physician Address: Address: [address] [place] [address] [address] [place] [address] [place] Name: Umair Glasgow MD Position: Physician Member Role: ED Physician Address: Address: [facility] [address] [place] [address]- Name: Georgia Vivar RN Position: Nurse Member Role: ED Nurse Name: Tatianna Gallagher Position: Nurse Member Role: ED Nurse Care Team Related Persons Name: JAXON GREER
--- OUTSIDE RECORDS SUMMARY | 2024-06-01 06:51 | XMS_ITS | Continuity of Care Document ---
Author Organization [facility] Address [address] [place] [address] Encounter [id number] Date(s): 03/09/23 - 03/09/23 [facility] [address] [place] [address] Encounter Diagnosis Gastroenteritis(Discharge Diagnosis) - 03/09/23 Hypokalemia(Discharge Diagnosis) - 03/09/23 Discharge Disposition: Home or Self Care Attending Physician: Erlin Cheatham MD Admitting Physician: Erlin Cheatham MD Allergies, Adverse Reactions, Alerts No Known Medication Allergies Functional Status 03/09/23 Other exposure to Infectious Disease Non e Medications !-Zofran ODT 4 mg oral tablet, disintegrating 4 mg = 1 tab, Oral, TID, PRN as needed for nausea/vomiting, # 12 tab, 0 Refill(s), Pharmacy: [facility], 163, cm, 03/09/23 17:36:00 EDT, Height/Length Dosing, 84, kg, 03/09/23 17:36:00 EDT,Weight Dosing Start Date: 03/09/23 Stop Date: 03/13/23 Status: Ordered FLUoxetine 0 Refill(s) Start Date: 12/16/22 Status: Ordered LaMICtal 0 Refill(s) Start Date: 12/16/22 Status: Ordered oxybutynin 0 Refill(s) Start Date: 12/16/22 Status: Ordered pantoprazole 20 mg oral delayed release tablet 20 mg = 1 tab, Oral, Daily, X 30 days, # 30 tab, 0 Refill(s), 04/08/23 20:13:00 EDT, Pharmacy: [facility], 163, cm, 03/09/23 17:36:00 EDT, Height/Length Dosing, 84, kg, 03/09/23 17:36:00 EDT, Weight Dosing Start Date: 03/09/23 Stop Date: 04/08/23 Status: Ordered propranolol 0 Refill(s) Start Date: 12/16/22 Status: Ordered Tylenol 8 Hour 650 mg oral tablet, extended release 650 mg = 1 tab, Oral, every 8 hr, PRN as needed for fever, # 30 tab, 0 Refill(s), Pharmacy: [facility], 163, cm, 12/16/22 12:46:00 EST, Height/Length Dosing, 100, kg, 12/16/22 12:46:00 EST,Weight Dosing Start Date: 12/16/22 Status: Ordered Vitamin D with Minerals oral tablet 0 Refill(s) Start Date: 02/11/23 Status: Ordered Results Laboratory List Name Date CBC w/ Diff 03/09/23 Comprehensive Metabolic Panel (CMP) 03/09 Magnesium Level 03/09/23 Automated Diff 03/09/23 Most recent to oldest [Reference Range]: 1 WBC [5.0-10.0 x10^3/mcL] 11.8 x10^3/mcL *HI* (03/09/23 5:47 PM) RBC [4.1-5.3 x10^6/mcL] 5.0 x10^6/mcL (03/09/23 5:47 PM) Neutro Auto [40.0-75.0 %] 77.9 % *HI* (03/09/23 5:47 PM) Lymph Auto [20.0-50.0 %] 12.9 % *LOW* (03/09/23 5:47 PM) Collin Auto [2.0-15.0 %] 7.8 % (03/09/23 5:47 PM) Basophil Auto [0.0-1.0 %] 0.3 % (03/09/23 5:47 PM) BUN [7-18 mg/dL] 8 mg/dL (03/09/23 5:47 PM) Glucose Level [74-106 mg/dL] 153 mg/dL *HI* (03/09/23 5:47 PM) Potassium Level [3.5-5.1 mmol/L] 2.4 mmo l/L 1 *CRIT* (03/09/23 5:47 PM) MCV [80.0-96.0] 81.9 (03/09/23 5:47 PM) AST [15-37 unit/L] 86 unit/L *HI* (03/09/23 5:47 PM) ALT [14-59 unit/L] 83 unit/L *HI* (03/09/23 5:47 PM) MCHC [31.0-35.0 g/dL] 35.7 g/dL *HI* (03/09/23 5:47 PM) Sodium Level [136-145 mmol/L] 138 mmol/L (03/09/23 5:47 PM) Hct [37.0-47.0 %] 41.2 % (03/09/23:47 PM) Calcium Level [8.5-10.1 mg/dL] 9.7 mg/dL (03/09/23 5:47 PM) Albumin Level [3.4-5.0 g/dL] 4.0 g/dL (03/09/23 5:47 PM) Protein Total [6.4-8.2 g/dL] 7.8 g/dL (03/09/23 5:47 PM) MCH [26.0-32.0 pg] 29.2 pg (03/09/23 5:47 PM) Magnesium Level [1.8-2.4 mg/dL] 1.5 mg/d L *LOW* (03/09/23 5:47 PM) Neutro Absolute 9.2 x10^3/mcL *NA* (03/09/23 5:47 PM) Bilirubin Total [0.2-1.0 mg/dL] 1.3 mg/d L *HI* (03/09/23 5:47 PM) Hgb [12.0-16.0 g/dL] 14.7 g/dL (03/09/23 5:47 PM) Alk Phos [46-146 unit/L] 130 unit/L (03/09/23 5:47 PM) Platelets [130-450 x10^3/mcL] 431 x10^3/ mcL (03/09/23 5:47 PM) CO2 [21-32 mmol/L] 22 mmol/L (03/09/23 5:47 PM) eGFR Non-AA [>=60] 84 (03/09/23 5:47 PM) eGFR AA [>=60] 84 (03/09/23 5:47 PM) Chloride Level [98-107 mmol/L] 96 mmol/L *LOW* (03/09/23 5:47 PM) RDW-CV [11.7-17.0 %] 15.1 % (03/09/23 5:47 PM) Imm Gran Auto [0.0-0.9 %] 0.4 % (03/09/23 5:47 PM) Creatinine Level [0.55-1.02 mg/dL] 0.87 mg/dL (03/09/23 5:47 PM) Eos, Auto [1.0-6.0 %] 0.7 % *LOW* (03/09/23 5:47 PM) 1Result Comment: Called to and verbally verified by Jill Hager (ER) at _03/09/2023 18:16:54 EDT PJB. Vital Signs Most recent to oldest [Reference Range]: 1 2 3 Temperature Temporal Artery [36-38 Deg C] 36.8 Deg C (03/09/23 5:31 PM) Peripheral Pulse Rate [60-100 bpm] 96 bpm (03/09/23 8:15 PM) 99 bpm (03/09/23 8:00 PM) 94 bpm (03/09/23 7:45 PM) Heart Rate Monitored [60-100 bpm] 93 bpm (03/09/23 8:15 PM) 94 bpm (03/09/23 8:00 PM) 93 bpm (03/09/23 7:45 PM) Respiratory Rate [12-24 br/min] 14 br/min (03/09/23 8:15 PM) 13 br/min (03/09/23 8:00 PM) 15 br/min (03/09/23 7:45 PM) Blood Pressure [90-140/60-90 mmHg] 136/87mmHg (03/09/23 8:15 PM) 137/91mmHg (03/09/23 8:00 PM) 135/92mmHg (03/09/23 7:45 PM) Blood Pressure Location Left arm (03/09/23 8:15 PM) Left arm (03/09/23 8:00 PM) Left arm (03/09/23 7:15 PM) Weight 84.00 kg (03/09/23 5:31 PM) Weight Dosing 84.00 kg (03/09/23 5:36 PM) Height 163.000 cm (03/09/23 5:31 PM) Height/Length Dosing 163.000 cm (03/09/23 5:36 PM) Body Mass Index 32.000 kg/m2 (03/09/23 5:31 PM) Social History Social History Type Response Tobacco Never tobacco user T obacco Use:. Sex Female Hospital Discharge Instructions Patient Education 03/09/2023 19:07:10 Viral Gastroenteritis, Adult Viral Gastroenteritis, Adult Viral gastroenteritis is also known as the stomach flu. This condition may affect your stomach, small intestine, and large intestine. It can cause sudden watery diarrhea, fever, and vomiting. This condition is caused by many different viruses. These viruses can be passed from person to person very easily (are contagious). Diarrhea and vomiting can make you feel weak and cause you to become dehydrated. You may not be able to keep fluids down. Dehydration can make you tired and thirsty, cause you to have a dry mouth, and decrease how often you urinate. It is important to replace the fluids that you lose from diarrhea and vomiting. What are the causes? Gastroenteritis is caused by many viruses, including rotavirus and norovirus. Norovirus is the mostcommon cause in adults. You can get sick after being exposed to the viruses from other people. You can also get sick by: ??? Eating food, drinking water, or touching a surface contaminated with one of these viruses. ??? Sharing utensils or other personal items with an infected person. What increases the risk? You are more likely to develop this condition if you: ??? Have a weak body defense system (immune system). ??? Live with one or more children who are younger than 2 years old. ??? Live in a longterm. ??? Travel on cruise ships. What are the signs or symptoms? Symptoms of this condition start suddenly 1???3 days after exposure to a virus. Symptoms may last for a few days or for as long as a week. Common symptoms include watery diarrhea and vomiting. Other symptoms include: ??? Fever. ??? Headache. ??? Fatigue. ??? Pain in the abdomen. ??? Chills. ??? Weakness. ??? Nausea. ??? Muscle aches. ??? Loss of appetite. How is this diagnosed? This condition is diagnosed with a medical history and physical exam. You may also have a stool test to check for viruses or other infections. How is this treated? This condition typically goes away on its own. The focus of treatment is to prevent dehydration andrestore lost fluids (rehydration). This condition may be treated with: ??? An oral rehydration solution (ORS) to replace important salts and minerals (electrolytes) in your body. Take this if told by your health care provider. This is a drink that is sold at pharmacies and retail stores. ??? Medicines to help with your symptoms. ??? Probiotic supplements to reduce symptoms of diarrhea. ??? Fluids given through an IV, if dehydration is severe. Older adults and people with other diseases or a weak immune system are at higher risk for dehydration. Follow these instructions at home: Eating and drinking ??? Take an ORS as told by your health care provider. ??? Drink clear fluids in small amounts as you are able. Clear fluids include: ??? Water. ??? Ice chips. ??? Diluted fruit juice. ??? Low-calorie sports drinks. ??? Drink enough fluid to keep your urine pale yellow. ??? Eat small amounts of healthy foods every 3???4 hours as you are able. This may include whole grains, fruits, vegetables, lean meats, and yogurt. ??? Avoid fluids that contain a lot of sugar or caffeine, such as energy drinks, sports drinks, andsoda. ??? Avoid spicy or fatty foods. ??? Avoid alcohol. General instructions ??? Wash your hands often, especially after having diarrhea or vomiting. If soap and water are not available, use hand ripshear operator. ??? Make sure that all people in your household wash their hands well and often. ??? Take [id number] and prescription medicines only as told by your health care provider. ??? Rest at home while you recover. ??? Watch your condition for any changes. ??? Take a warm bath to relieve any burning or pain from frequent diarrhea episodes. ??? Keep all follow-up visits as told by your health care provider. This is important. Contact a health care provider if you: ??? Cannot keep fluids down. ??? Have symptoms that get worse. ??? Have new symptoms. ??? Feel light-headed or dizzy. ??? Have muscle cramps. Get help right away if you: ??? Have chest pain. ??? Feel extremely weak or you faint. ??? See blood in your vomit. ??? Have vomit that looks like coffee grounds. ??? Have bloody or black stools or stools that look like tar. ??? Have a severe headache, a stiff neck, or both. ??? Have a rash. ??? Have severe pain, cramping, or bloating in your abdomen. ??? Have trouble breathing or you are breathing very quickly. ??? Have a fast heartbeat. ??? Have skin that feels cold and clammy. ??? Feel confused. ??? Have pain when you urinate. ??? Have signs of dehydration, such as: ??? Dark urine, very little urine, or no urine. ??? Cracked lips. ??? Dry mouth. ??? Sunken eyes. ??? Sleepiness. ??? Weakness. Summary ??? Viral gastroenteritis is also known as the stomach flu. It can cause sudden watery diarrhea, fever, and vomiting. ??? This condition can be passed from person to person very easily (is contagious). ??? Take an ORS if told by your health care provider. This is a drink that is sold at pharmacies and retail stores. ??? Wash your hands often, especially after having diarrhea or vomiting. If soap and water are not available, use hand ripshear operator. This information is not intended to replace advice given to you by your health care provider. Make sure you discuss any questions you have with your health care provider. Document Revised: 04/22/2020 Document Reviewed: 09/09/2019 [employer] Patient Education ?? 2021 [employer] Follow Up Care 03/09/2023 17:31:23 With:Follow up with primary care provider Address: When:1 to 2 weeks Physician Emergency department Note * Domonique Gomez MD: PERFORM Event Display: ED Note Physician Authored Date: [id number] PARTHA VELOZ :1980 Age:43 years Sex:Female Visit Date:03/09/2023 Basic Information Time Seen: Domonique Gomez MD / 03/09/2023 17:33 Chief Complaint N/v x1 week, denies diarrhea, inability to eat, gastric bypass surgery 2 months ago at [facility]. BS 138 for EMS. History Of Present Illness: 42-year-old female past medical history??fibromyalgia, endometriosis,??CHUN, obesity, status post??gastric bypass back in December presents to the ED c/o 1 week of?? nausea and vomiting/retching??associated with periumbilical/epigastric pain which she says is chronic and not worse than usual. She says no food or anything comes out when she tries to vomit but she has been afraid to eat. ??Pt also with 2 to 3 episodes of watery diarrhea daily in the past 3 days, no blood. ??She has been seen in the ER several times in??the past few months with epigastric pain with reassuring work up. ??No lower abdominal pain, dysuria, fevers, no cp, sob, dizziness, fever/chills. She spoke with her bariatric salmeron rgeon Dr Borrero a few days ago and says she prescribed new medications including sucralfate and something that ends with prazole, she received the sucralfate but not the prazole medication. PSH: pt is s/p cholecystectomy, gastric bypass Physical Exam Vitals & Measurements T:??36.8?C ??(Temporal Artery)?? HR:??96??(Peripheral)?? HR:??93??(Monitored)?? RR:??14?? BP:??136/87?? SpO2:??97%?? HT:??163.000??cm?? WT:??84.00??kg?? BMI:??32.000?? Pain Score:??6?? O2 Therapy:??Room air?? General: A&Ox3, Calm, no apparent distress, well [...] back in December presents to the ED with chronic??epigastric abdominal pain., nausea, retching, and mild diarrhea. Pt well and non toxic appearing on arrival, though appears extremely anxious Slightly tachycardic Reassuring abdominal exam ?? Thorough chart review performed ?? Review of prior imaging: CT a/p in the last 02/27 - no acute findings 02/11 - ff in pelvis no other abd process 01/17 - dilated loops of bowel ?? DDx includes functional nausea and abd pain, gastritis, GERD, gastroenteritis. No immediate concern for intraabdominal infection or obstruction today. Pt in agreement with deferring imaging. -- Labs, antiemetics, fluids, monitor and r/a Labs w/ very mild leukocytosis, hypokalemia at 2.4 in the setting of chronic hypokalemia (2.7 Feb 11, 2.9 Feb 13), mild transaminitis, bilirubin slightly up at 1.3. Potassium repleted orally and IV, Magnesium repleted IV On reevaluation pt feels much better. f/u with Dr Borrero as scheduled March 21, I have also advised the patient to f/u with her pcp in [facility] in the next week or so. We discussed return precautions, all questions answered. Procedure No Qualifying Data Assessment/Plan 1.??Gastroenteritis??K52.9 Ordered: !-Zofran ODT 4 mg oral tablet, disintegrating, 4 mg = 1 tab, Oral, TID, PRN as needed for nausea/vomiting, # 12 tab, 0 Refill(s), Pharmacy: [facility], 163, cm, 03/09/23 17:36:00 EDT, Height/Length Dosing, 84, kg, 03/09/23 17:36:00 EDT, Weight Dosing pantoprazole 20 mg oral delayed release tablet, 20 mg = 1 tab, Oral, Daily, X 30 days, # 30 tab, 0 Refill(s), 04/08/23 20:13:00 EDT, Pharmacy: [facility], 163, cm, 03/09/23 17:36:00 EDT, Height/Length Dosing, 84, kg, 03/09/23 17:36:00 EDT, Weight Dosing Discharge Patient, 03/09/23 20:27:00 EDT, Constant Indicator ?? 2.??Hypokalemia??E87.6 Ordered: !-Zofran ODT 4 mg oral tablet, disintegrating, 4 mg = 1 tab, Oral, TID, PRN as needed for nausea/vomiting, # 12 tab, 0 Refill(s), Pharmacy: [facility], 163, cm, 03/09/23 17:36:00 EDT, Height/Length Dosing, 84, kg, 03/09/23 17:36:00 EDT, Weight Dosing pantoprazole 20 mg oral delayed release tablet, 20 mg = 1 tab, Oral, Daily, X 30 days, # 30 tab, 0 Refill(s), 04/08/23 20:13:00 EDT, Pharmacy: [facility], 163, cm, 03/09/23 17:36:00 EDT, Height/Length Dosing, 84, kg, 03/09/23 17:36:00 EDT, Weight Dosing Discharge Patient, 03/09/23 20:27:00 EDT, Constant Indicator ?? Orders: !-Zofran, 4 mg = 2 mL, IV Push, Soln, every 6 hr, PRN nausea/vomiting, First Dose: 03/09/23 17:34:00 EDT, STAT Patient Education Viral Gastroenteritis, Adult Follow Up With When Contact Information Follow up with primary care provider Within 1 to 2 weeks Additional Instructions: Medication Reconciliation New Prescription ondansetron (!-Zofran ODT 4 mg oral tablet, disintegrating)1 tab Oral (given by mouth) 3 times a day as needed as needed for nausea/vomiting for 4 Days. Refills: 0. ?? pantoprazole (pantoprazole 20 mg oral delayed release tablet)1 tab Oral (given by mouth) every day for 30 Days. Refills: 0. ?? Unchanged acetaminophen (Tylenol [...] Administration Given !-Zofran, 4 mg, IV Push 0.9% NaCl bolus, 1000 mL, IV Piggyback haloperidol, 2 mg, Slow IV Push magnesium sulfate, 1 g, IV Piggyback potassium chloride, 40 mEq, Oral potassium chloride, 10 mEq, 10 mEq, IV Piggyback Allergies No Known Medication Allergies Social History Alcohol Never Electronic Cigarette/Vaping Electronic Cigarette Use: Never. Substance Use Never Tobacco Never tobacco user Tobacco Use:. Lab Results CBC and Differential?? LATEST RESULTS?? HISTORICAL RESULTS?? WBC?? 03/09/23 17:47?? 11.8 ??High?? 02/26/23?? 7.1?? RBC?? 03/09/23 17:47?? 5.0?? 02/26/23?? 4.7?? Hgb?? 03/09/23 17:47?? 14.7?? 02/26/23?? 13.7?? Hct?? 03/09/23 17:47?? 41.2?? 02/26/23?? 39.3?? MCV?? 03/09/23 17:47?? 81.9?? 02/26/23?? 84.0?? MCH?? 03/09/23 17:47?? 29.2?? 02/26/23?? 29.3?? MCHC?? 03/09/23 17:47?? 35.7 ??High?? 02/26/23?? 34.9?? RDW-CV?? 03/09/23 17:47?? 15.1?? 02/26/23?? 14.6?? Platelets?? 03/09/23 17:47?? 431?? 02/26/23?? 353?? Neutro Auto?? 03/09/23 17:47?? 77.9 ??High?? 02/26/23?? 62.5?? Lymph Auto?? 03/09/23 17:47?? 12.9 ??Low?? 02/26/23?? 26.8?? Collin Auto?? 03/09/23 17:47?? 7.8?? 02/26/23?? 7.2?? Eos, Auto?? 03/09/23 17:47?? 0.7 ??Low?? 02/26/23?? 2.9?? Basophil Auto?? 03/09/23 17:47?? 0.3?? 02/26/23?? 0.3?? Imm Gran Auto?? 03/09/23 17:47?? 0.4?? 02/26/23?? 0.3?? Neutro Absolute?? 03/09/23 17:47?? 9.2?? 02/26/23?? 4.4? Routine Chemistry?? LATEST RESULTS?? HISTORICAL RESULTS?? Sodium Level?? 03/09/23 17:47?? 138?? 02/26/23?? 136?? Potassium Level?? 03/09/23 17:47?? 2.4 ??Critical?? 02/26/23?? 2.7 ??Low?? Chloride Level?? 03/09/23 17:47?? 96 ??Low?? 02/26/23?? 97 ??Low?? CO2?? 03/09/23 17:47?? 22?? 02/26/23?? 23?? Alk Phos?? 03/09/23 17:47?? 130?? 02/26/23?? 113?? AST?? 03/09/23 17:47?? 86 ??High?? 02/26/23?? 28?? ALT?? 03/09/23 17:47?? 83 ??High?? 02/26/23?? 32?? BUN?? 03/09/23 17:47?? 8?? 02/26/23?? 11?? Glucose Level?? 03/09/23 17:47?? 153 ??High?? 02/26/23?? 101?? Creatinine Level?? 03/09/23 17:47?? 0.87?? 02/26/23?? 0.79?? eGFR AA?? 03/09/23 17:47?? 84?? 02/26/23?? 95?? eGFR Non-AA?? 03/09/23 17:47?? 84?? 02/26/23?? 95?? Calcium Level?? 03/09/23 17:47?? 9.7?? 02/26/23?? 9.3?? Protein Total?? 03/09/23 17:47?? 7.8?? 02/26/23?? 7.4?? Albumin Level?? 03/09/23 17:47?? 4.0?? 02/26/23?? 3.8?? Bilirubin Total?? 03/09/23 17:47?? 1.3 ??High?? 02/26/23?? 0.7?? Magnesium Level?? 03/09/23 17:47?? 1.5 ??Low?? 02/26/23?? 1.5 ??Low? Electronically Signed on 03/09/23 08:49 PM Domonique Gomez MD Emergency department Discharge instructions * Domonique Gomez MD: PERFORM Event Display: ED Discharge Information Authored Date: [id number] PARTHA VELOZ :1980 Age:43 years Sex:Female Visit Date:03/09/2023 Discharge Instructions We would like to thank you for allowing us to assist you with your healthcare needs. The following includes patient education materials and information regarding your injury/illness. Diagnosis from Today's Visit Gastroenteritis Hypokalemia Discharge Vitals Temperature??(Temporal Artery) 98.2 ??F (36.8 ??C) Heart Rate??(Peripheral) 96 Heart Rate??(Monitored) 93 Respiratory Rate?? 14 Blood Pressure?? 136/87?? Height?? 64.17 in (163.000 cm) Weight?? 185.22 lb (84.00 kg) BMI?? 32.000 Allergies No Known Medication Allergies What to Do Next Instructions from Your Care Team Gastroenteritis is an illness that may cause nausea, vomiting, and diarrhea. ?? You will probably begin to feel better in 1 to 2 days. In the meantime, get plenty of rest and makesure you do not become dehydrated. Dehydration occurs when your body loses too much fluid. ?? Drink fluids slowly, in frequent, small amounts. Begin eating mild foods, such as dry toast, yogurt, applesauce, bananas, and rice. Avoid spicy, hot, or high- fat foods, and do not drink alcohol or caffeine for a day or two. Take Zofran as needed for nausea to help you eat, up to 3 times a day. Do not drink milk or eat ice cream until you are feeling better. Also start Omeprazole as recommended by your doctor, or Pantoprazole (do not take both). ?? Follow-up with your primary care provider for reevaluation in 1 week and with your bariatric surgeon as scheduled. ??Return to the emergency department for any new or worsening symptoms such as bloody stool, fever, inability to keep food or fluids down, extreme fatigue or weakness, chest pain, shortness of breath, or for any other concern. You Need to Schedule the Following Appointments [...] Much When Why Instructions Next Dose New ondansetron (!-Zofran ODT 4 mg oral tablet, disintegrating) 1 tab Oral (given by mouth) 3 times a day as needed for as needed for nausea/vomiting Gastroenteritis Hypokalemia Duration: 4 Days Pickup at [facility] New pantoprazole (pantoprazole 20 mg oral delayed release tablet) 1 tab Oral (given by mouth) Every day Gastroenteritis Hypokalemia Duration: 30 Days Pickup at [facility] Unchanged acetaminophen (Tylenol 8 Hour 650 mg oral tablet, extended release) 1 tab Oral (given by mouth) Every 8 hours as needed for as needed for fever Periapical abscess Unchanged FLUoxetine Unchanged lamoTRIgine (LaMICtal) Unchanged multivitamin with minerals (Vitamin D with Minerals oral tablet) Unchanged oxybutynin Unchanged propranolol Pharmacy Information [facility]: [address], [place] [id number] [phone] Education [employer] Viral Gastroenteritis, Adult Viral gastroenteritis is also known as the stomach flu. This condition may affect your stomach, small intestine, and large intestine. It can cause sudden watery diarrhea, fever, and vomiting. This condition is caused by many different viruses. These viruses can be passed from person to person very easily (are contagious). Diarrhea and vomiting can make you feel weak and cause you to become dehydrated. You may not be able to keep fluids down. Dehydration can make you tired and thirsty, cause you to have a dry mouth, and decrease how often you urinate. It is important to replace the fluids that you lose from diarrhea and vomiting. What are the causes? Gastroenteritis is caused by many viruses, including rotavirus and norovirus. Norovirus is the mostcommon cause in adults. You can get sick after being exposed to the viruses from other people. You can also get sick by: ? Eating food, drinking water, or touching a surface contaminated with one of these viruses. ? Sharing utensils or other personal items with an infected person. What increases the risk? You are more likely to develop this condition if you: ? Have a weak body defense system (immune system). ? Live with one or more children who are younger than 2 years old. ? Live in a longterm. ? Travel on cruise ships. What are the signs or symptoms? Symptoms of this condition start suddenly 1???3 days after exposure to a virus. Symptoms may last for a few days or for as long as a week. Common symptoms include watery diarrhea and vomiting. Other symptoms include: ? Fever. ? Headache. ? Fatigue. ? Pain in the abdomen. ? Chills. ? Weakness. ? Nausea. ? Muscle aches. ? Loss of appetite. How is this diagnosed? This condition is diagnosed with a medical history and physical exam. You may also have a stool test to check for viruses or other infections. How is this treated? This condition typically goes away on its own. The focus of treatment is to prevent dehydration andrestore lost fluids (rehydration). This condition may be treated with: ? An oral rehydration solution (ORS) to replace important salts and minerals (electrolytes) in your body. Take this if told by your health care provider. This is a drink that is sold at pharmacies and retail stores. ? Medicines to help with your symptoms. ? Probiotic supplements to reduce symptoms of diarrhea. ? Fluids given through an IV, if dehydration is severe. Older adults and people with other diseases or a weak immune system are at higher risk for dehydration. Follow these instructions at home: Eating and drinking ? Take an ORS as told by your health care provider. ? Drink clear fluids in small amounts as you are able. Clear fluids include: ? Water. ? Ice chips. ? Diluted fruit juice. ? Low-calorie sports drinks. ? Drink enough fluid to keep your urine pale yellow. ? Eat small amounts of healthy foods every 3???4 hours as you are able. This may include whole grains, fruits, vegetables, lean meats, and yogurt. ? Avoid fluids that contain a lot of sugar or caffeine, such as energy drinks, sports drinks, and soda. ? Avoid spicy or fatty foods. ? Avoid alcohol. General instructions ? Wash your hands often, especially after having diarrhea or vomiting. If soap and water are not available, use hand ripshear operator. ? Make sure that all people in your household wash their hands well and often. ? Take goub-oqu-ajgshyl and prescription medicines only as told by your health care provider. ? Rest at home while you recover. ? Watch your condition for any changes. ? Take a warm bath to relieve any burning or pain from frequent diarrhea episodes. ? Keep all follow-up visits as told by your health care provider. This is important. Contact a health care provider if you: ? Cannot keep fluids down. ? Have symptoms that get worse. ? Have new symptoms. ? Feel light-headed or dizzy. ? Have muscle cramps. Get help right away if you: ? Have chest pain. ? Feel extremely weak or you faint. ? See blood in your vomit. ? Have vomit that looks like coffee grounds. ? Have bloody or black stools or stools that look like tar. ? Have a severe headache, a stiff neck, or both. ? Have a rash. ? Have severe pain, cramping, or bloating in your abdomen. ? Have trouble breathing or you are breathing very quickly. ? Have a fast heartbeat. ? Have skin that feels cold and clammy. ? Feel confused. ? Have pain when you urinate. ? Have signs of dehydration, such as: ? Dark urine, very little urine, or no urine. ? Cracked lips. ? Dry mouth. ? Sunken eyes. ? Sleepiness. ? Weakness. Summary ? Viral gastroenteritis is also known as the stomach flu. It can cause sudden watery diarrhea, fever,and vomiting. ? This condition can be passed from person to person very easily (is contagious). ? Take an ORS if told by your health care provider. This is a drink that is sold at pharmacies and retail stores. ? Wash your hands often, especially after having diarrhea or vomiting. If soap and water are not available, use hand ripshear operator. This information is not intended to replace advice given to you by your health care provider. Make sure you discuss any questions you have with your health care provider. Document Revised: 04/22/2020 Document Reviewed: 09/09/2019 [employer] Patient Education ?? 2021 [employer]. Tests Performed Medications and Immunizations Administered Given !-Zofran, 4 mg, IV Push 0.9% NaCl bolus, 1000 mL, IV Piggyback haloperidol, 2 mg, Slow IV Push magnesium sulfate, 1 g, IV Piggyback potassium chloride, 40 mEq, Oral potassium chloride, 10 mEq, 10 mEq, IV Piggyback Lab Test Name Test Result Date/Time WBC 11.8 x10^3/mcL 03/09/2023 17:47 EDT RBC 5.0 x10^6/mcL 03/09/2023 17:47 EDT Hgb 14.7 g/dL 03/09/2023 17:47 EDT Hct 41.2 % 03/09/2023 17:47 EDT MCV 81.9 03/09/2023 17:47 EDT MCH 29.2 pg 03/09/2023 17:47 EDT MCHC 35.7 g/dL 03/09/2023 17:47 EDT RDW-CV 15.1 % 03/09/2023 17:47 EDT Platelets 431 x10^3/mcL 03/09/2023 17:47 EDT Neutro Auto 77.9 % 03/09/2023 17:47 EDT Lymph Auto 12.9 % 03/09/2023 17:47 EDT Collin Auto 7.8 % 03/09/2023 17:47 EDT Eos, Auto 0.7 % 03/09/2023 17:47 EDT Basophil Auto 0.3 % 03/09/2023 17:47 EDT Imm Gran Auto 0.4 % 03/09/2023 17:47 EDT Neutro Absolute 9.2 x10^3/mcL 03/09/2023 17:47 EDT Sodium Level 138 mmol/L 03/09/2023 17:47 EDT Potassium Level 2.4 mmol/L 03/09/2023 17:47 EDT Chloride Level 96 mmol/L 03/09/2023 17:47 EDT CO2 22 mmol/L 03/09/2023 17:47 EDT Alk Phos 130 unit/L 03/09/2023 17:47 EDT AST 86 unit/L 03/09/2023 17:47 EDT ALT 83 unit/L 03/09/2023 17:47 EDT BUN 8 mg/dL 03/09/2023 17:47 EDT Glucose Level 153 mg/dL 03/09/2023 17:47 EDT Creatinine Level 0.87 mg/dL 03/09/2023 17:47 EDT eGFR AA 84 03/09/2023 17:47 EDT eGFR Non-AA 84 03/09/2023 17:47 EDT Calcium Level 9.7 mg/dL 03/09/2023 17:47 EDT Protein Total 7.8 g/dL 03/09/2023 17:47 EDT Albumin Level 4.0 g/dL 03/09/2023 17:47 EDT Bilirubin Total 1.3 mg/dL 03/09/2023 17:47 EDT Magnesium Level 1.5 mg/dL 03/09/2023 17:47 EDT Patient/Wick Tender Signature Patient Name:PARTHA VELOZ I have received this information and my questions have been answered. Patient/Wick Tender Name: Patient/Wick Tender Signature: Relationship to Patient: Witness Name/Signature: Date: Electronically Signed on: 03/09/2023 20:28 EDTSigned by:[facility] Emergency department Note * Alejandra Croft M: PERFORM Event Display: ED Notes Authored Date: [id number] Patient Care team information Care Team Personnel Name: Domonique Gomez MD Position: Physician Member Role: ED Physician Address: Address: [address] [place] [address] Name: Ada Gonzáles Position: Nurse Member Role: ED Nurse Name: Whitney Etienne RN Position: Nurse Member Role: ED Nurse Care Team Related Persons Name: JAXON GREER Name: ANGELA AREVALO
--- OUTSIDE RECORDS SUMMARY | 2024-06-01 06:51 | XMS_ITS | Encounter Summary ---
Author Organization [facility] Address [address] [place] [address] Care Team Providers Care Air Brakes Inspector Name Role Phone Lamar Puri MD Primary Care Provider [phone] Encounter Details Date Type Department Care Team (Late st Contact Info) Description 05/12/2015 Results Only [facility] [phone] Trev Urbano MD [facility] [place], [place] [id number] Social History Tobacco Use Types Packs/Day Years Used Date Smoking Tobacco: Never Assessed Sex and Gender Information Value Date Recorded Sex Assigned at Not on file Gender Identity Not on file Sexual Orientation Not on file documented as of this encounter Plan of Treatment Not on file documented as of this encounter Procedures Procedure Name Priority Date/Time Associated Diagnosis Comments SURGICAL PATHOLOGY Routine 05/12/2015 21 :17 EDT documented in this encounter Results * SURGICAL PATHOLOGY (05/12/2015 21:17 EDT) Pathology Report: SURGICAL PATHOLOGY REPORT Reports generated via electronic interface contain original data; however they are lacking the format of the original report. Caution should be taken when reading/interpret ing unformatted reports. Name: ? LEANDRA VELOZ ? Accession #: ? [id number] ? : ? 1980 (Age: 35) ??F ? Collect Date: ? 05/12/2015 ? Location: ? [facility] ? Receive Date: ? 05/12/2015 ? Provider: TREV URBANO MD Copy to: LAMAR PURI MD ? Final Pathologic Diagnosis: UTERUS AND CERVIX, HYSTERECTOMY: - Cervix: - No specific pathologic features. - Endometrium: - Weakly proliferative endometrium with no specific pathologic features. - Myometrium: - No specific pathologic features. - Serosa: - No specific pathologic features. ?? Document reviewed and electronically signed by: MARY LOU HAYES MD Report ??Date: 05/16/2015 15:47 By the signature above, the attending physician certifies that he/she has personally conducted a gross and/or microscopic examination of the described specimens and rendered or confirmed the above diagnosis. Specimen(s) Received: Uterus Clinical History: Pelvic pain; stage 1 endometriosis; abnormal uterine bleeding Gross Description: ? Received in formalin labelled with proper patient identification (initials O, M) and uterus is an intact uterus and cervix (115 g, 10.3 cm cervix to fundus x 6.0 cm cornu to cornu x 4.8 cm anterior to posterior), without attached adnexa. ? The uterine serosa is pink-mcdonough and predominantly smooth with a focal area of adhesion on the posterior aspect. The endometrium is pink-mcdonough, lush, and has a thickness of 0.4 cm. ??The myometrium is pink-mcdonough, mildly trabeculated, and cystic and averages 2.1 cm in thickness. No nodules are identified within the myometrium. The ectocervix is mcdonough-brown and slightly roughened, and the endocervix is mcdonough-pink with a herringbone pattern. ? Prosthodontist sections are submitted as follows: BLOCK MARCANO 1- ??anterior cervix 2- ??posterior cervix 3- ??anterior endomyometrium, full thickness 4- ??posterior endomyometrium, full thickness 5- ??posterior serosa with focal area of adhesion Maru Geena 05/13/2015 10:31 AM End of Report [facility] 05/12/2015 21:1 7 EDT 05/12/2015 21:17 EDT Trev Urbano MD PATHOLOGY ORDERABLES [facility] [address] [place] [address] documented in this encounter Visit Diagnoses Not on filedocumented in this encounter Care Teams Air Brakes Inspector Relationship Specialty Start Date End Date Lamar Puri MD [address] [place] [id number] PCP - General 09/11/13 documented as of this encounter
--- OUTSIDE RECORDS SUMMARY | 2024-06-01 06:51 | XMS_ITS | Continuity of Care Document ---
Author Organization [facility] Address [address] [place] [address] Care Team Providers Care Talent Acquisition Program Manager Name Role Phone Debby Puri Primary Care Physician Encounter [facility] Date(s): 12/16/22 - 12/16/[address] [address] Encounter Diagnosis Periapical abscess(Discharge Diagnosis) - 12/16/22 Discharge Disposition: Home or Self Care Attending Physician: Domonique Gomez MD Admitting Physician: Domonique Gomez MD Allergies, Adverse Reactions, Alerts No Known Medication Allergies Assessment and Plan Extracted from: Title:Clinical Document Author:Loly Kumar te:12/16/22 Diagnosis: 1. Periapical abs cess Comment: Diagnosis: Toothache Comment: Functional Status 12/16/22 Other exposure to Infectious Disease Non e Medications !-Augmentin 875 mg-125 mg oral tablet 1 tab, Oral, every 12 hr, # 20 tab, 0 Refill(s), Pharmacy: [facility], 163, cm, 12/16/22 12:46:00 EST, Height/Length Dosing, 100, kg, 12/16/22 12:46:00 EST, Weight Dosing Start Date: 12/16/22 Stop Date: 12/26/22 Status: Ordered FLUoxetine 0 Refill(s) Start Date: 12/16/22 Status: Ordered ibuprofen 600 mg oral tablet 600 mg = 1 tab, Oral, every 8 hr, # 30 tab, 0 Refill(s), Pharmacy: [facility], 163, cm, 12/16/22 12:46:00 EST, Height/Length [...] fever, # 30 tab, 0 Refill(s), Pharmacy: [facility], 163, cm, 12/16/22 12:46:00 EST, Height/Length Dosing, 100, kg, 12/16/22 12:46:00 EST,Weight Dosing Start Date: 12/16/22 Status: Ordered Vital Signs Most recent to oldest [Reference Range]: 1 Temperature Temporal Artery [36-38 Deg C ] 36.5 Deg C (12/16/22 12:37 PM) Peripheral Pulse Rate [60-100 bpm] 72 bp m (12/16/22 12:37 PM) Respiratory Rate [12-24 br/min] 16 br/mi n (12/16/22 12:37 PM) Blood Pressure [90-140/60-90 mmHg] 135/8 4mmHg (12/16/22 12:37 PM) Weight Dosing 100.00 kg (12/16/22 12:46 PM) Weight Estimated 100.00 kg (12/16/22 12:37 PM) Height/Length Dosing 163.000 cm (12/16/22 12:46 PM) Height/Length Estimated 163.000 cm (12/16/22 12:37 PM) Social History Social History Type Response Tobacco Never tobacco user T obacco Use:. Sex Female Hospital Discharge Instructions Patient Education 12/16/2022 12:56:58 Dental Abscess Dental Abscess A dental abscess is an infection around a tooth that may involve pain, swelling, and a collection of pus, as well as other symptoms. Treatment is important to help with symptoms and to prevent the infection from spreading. The general types of dental abscesses are: ??? Pulpal abscess. This abscess may form from the inner part of the tooth (pulp). ??? Periodontal abscess. This abscess may form from the gum. What are the causes? This condition is caused by a bacterial infection in or around the tooth. It may result from: ??? Severe tooth decay (cavities). ??? Trauma to the tooth, such as a broken or chipped tooth. What increases the risk? This condition is more likely to develop in males. It is also more likely to develop in people who: ??? Have cavities. ??? Have severe gum disease. ??? Eat sugary snacks between meals. ??? Use tobacco products. ??? Have diabetes. ??? Have a weakened disease-fighting system (immune system). ??? Do not brush and care for their teeth regularly. What are the signs or symptoms? Mild symptoms of this condition include: ??? Tenderness. ??? Bad breath. ??? Fever. ??? A bitter taste in the mouth. ??? Pain in and around the infected tooth. Moderate symptoms of this condition include: ??? Swollen neck glands. ??? Chills. ??? Pus drainage. ??? Swelling and redness around the infected tooth, in the mouth, or in the face. ??? Severe pain in and around the infected tooth. Severe symptoms of this condition include: ??? Difficulty swallowing. ??? Difficulty opening the mouth. ??? Nausea. ??? Vomiting. How is this diagnosed? This condition is diagnosed based on: ??? Your symptoms and your medical and dental history. ??? An examination of the infected tooth. During the exam, your dental care provider may tap on theinfected tooth. You may also need to have X-rays taken of the affected area. How is this treated? This condition is treated by getting rid of the infection. This may be done with: ??? Antibiotic medicines. These may be used in certain situations. ??? Antibacterial mouth rinse. ??? Incision and drainage. This procedure is done by making an incision in the abscess to drain outthe pus. Removing pus is the first priority in treating an abscess. ??? A root canal. This may be performed to save the tooth. Your dental care provider accesses the visible part of your tooth (crown) with a drill and removes any infected pulp. Then the space is filled and sealed off. ??? Tooth extraction. The tooth is pulled out if it cannot be saved by other treatment. You may also receive treatment for pain, such as: ??? Acetaminophen or NSAIDs. ??? Gels that contain a numbing medicine. ??? An injection to block the pain near your nerve. Follow these instructions at home: Medicines ??? Take bczz-hxx-sszidup and prescription medicines only as told by your dental care provider. ??? If you were prescribed an antibiotic, take it as told by your dental care provider. Do not stoptaking the antibiotic even if you start to feel better. ??? If you were prescribed a gel that contains a numbing medicine, use it exactly as told in the directions. Do not use these gels for children who are younger than 2 years of age. ??? Use an antibacterial mouth rinse as told by your dental care provider. General instructions ??? Gargle with a mixture of salt and water 3???4 times a day or as needed. To make salt water, completely dissolve ?1 tsp (3???6 g) of salt in 1 cup (237 mL) of warm water. ??? Eat a soft diet while your abscess is healing. ??? Drink enough fluid to keep your urine pale yellow. ??? Do not apply heat to the outside of your mouth. ??? Do not use any products that contain nicotine or tobacco. These products include cigarettes, chewing tobacco, and vaping devices, such as e-cigarettes. If you need help quitting, ask your dental care provider. ??? Keep all follow-up visits. This is important. How is this prevented? Excellent dental home care, which includes brushing your teeth every morning and night with fluoride toothpaste. Floss one time each day. ??? Get regularly scheduled dental cleanings. ??? Consider having a dental sealant applied on teeth that have deep grooves to prevent cavities. ??? Drink fluoridated water regularly. This includes most tap water. Check the label on bottled water to see if it contains fluoride. ??? Reduce or eliminate sugary drinks. ??? Eat healthy meals and snacks. ??? Wear a mouth guard or face shield to protect your teeth while playing sports. Contact a health care provider if: ??? Your pain is worse and is not helped by medicine. ??? You have swelling. ??? You see pus around the tooth. ??? You have a fever or chills. Get help right away if: ??? Your symptoms suddenly get worse. ??? You have a very bad headache. ??? You have problems breathing or swallowing. ??? You have trouble opening your mouth. ??? You have swelling in your neck or around your eye. These symptoms may represent a serious problem that is an emergency. Do not wait to see if the symptoms will go away. Get medical help right away. Call your local emergency services (911 in the [place] Do not drive yourself to the hospital. Summary ??? A dental abscess is a collection of pus in or around a tooth that results from an infection. ??? A dental abscess may result from severe tooth decay, trauma to the tooth, or severe gum diseasearound a tooth. ??? Symptoms include severe pain, swelling, redness, and drainage of pus in and around the infectedtooth. ??? The first priority in treating a dental abscess is to drain out the pus. Treatment may also involve removing damage inside the tooth (root canal) or extracting the tooth. This information is not intended to replace advice given to you by your health care provider. Make sure you discuss any questions you have with your health care provider. Document Revised: 01/11/2022 Document Reviewed: 01/11/2022 [employer] Patient Education ?? 2021 [employer]. Follow Up Care 12/16/2022 12:37:20 With:Dentist Address: When:24 Hours Physician Emergency department Note * Domonique Gomez MD: PERFORM Event Display: ED Note Physician Authored Date: [id number] PARTHA VELOZ :1980 Age:42 years Sex:Female Visit Date:12/16/2022 Primary Care Physician: Debby Puri MD Basic Information Time Seen: Domonique oGmez MD / 12/16/2022 12:55 Chief Complaint Partial root cannal 2 days ago on bottom right tooth, pt c/o continued tooth ache. No on-call dentist per pt. Denies n/v or fevers. Pt taking tylenol without relief. History Of Present Illness: 42-year-old female presents to the emergency department complaining of dental pain. ??The patient says that she had??the first part of her root canal??performed by her dentist on Saturday. She says herdentist put in something temporary inside the tooth and will complete the root canal in about 4 weeks. ??She has had increased??pain??since yesterday. ??No drainage, no swelling of the face,??no headache??or neck pain,??no fevers or chills. She has attempted to call her dentist but is closed on weekends. Physical Exam Vitals & Measurements T:??36.5?C ??(Temporal Artery)?? HR:??72??(Peripheral)?? RR:??16?? BP:??135/84?? SpO2:??97%?? HT:??163.000??cm?? WT:??100.00??kg??(Estimated)?? Pain Score:??10?? O2 Therapy:??Room air?? General: A&Ox3, Calm, no apparent distress, well developed, pleasant and cooperative ?? HEENT: Head ATNC. Eyes: ALLEN. Extraocular Mobility: intact and symmetrical. Conjunctiva: non-injected, anicteric, no discharge. Oral Cavity: moist. ??Dentition shows multiple fillings. ??Tooth #28 is well appearing, The nearby gum is intact without redness, swelling or fluctuance. ??There is ttp on gentle tapping of the tooth. ??Neck: no masses, no crepitus. Lymph Nodes: no cervical lymphadenopathy? Skin: no rash, no lesions, no bruising? Neuro: normal tone, normal strength in all 4 extremities, sensation intact?? Medical Decision MakinF w/ dental pain after dental work. Pt is well and non toxic appearing with reassuring VS Tooth intact, no drainable abscess at this time Suspect periapical abscess Plan: Abx, Analgesia, f/u dentist tomorrow Procedure No Qualifying Data Assessment/Plan 1.??Periapical abscess??K04.7 Ordered: Tylenol 8 Hour 650 mg oral tablet, extended release, 650 mg = 1 tab, Oral, every 8 hr, PRN as needed for fever, # 30 tab, 0 Refill(s), Pharmacy: [facility], 163, cm, 12/16/22 12:46:00 EST, Height/Length Dosing, 100, kg, 12/16/22 12:46:00 EST, Weight Dosing !-Augmentin 875 mg-125 mg oral tablet, 1 tab, Oral, every 12 hr, # 20 tab, 0 Refill(s), Pharmacy: [facility], 163, cm, 12/16/22 12:46:00 EST, Height/Length Dosing, 100, kg, 12/16/22 12:46:00 EST, Weight Dosing ibuprofen 600 mg oral tablet, 600 mg = 1 tab, Oral, every 8 hr, # 30 tab, 0 Refill(s), Pharmacy: [facility], 163, cm, 12/16/22 12:46:00 EST, Height/Length Dosing, 100, kg, 12/16/22 12:46:00EST, Weight Dosing Discharge Patient, 12/16/22 13:58:00 EST, Constant Indicator ?? Patient Education Dental Abscess Follow Up With When Contact Information Dentist Within 24 Hours Additional Instructions: Medication Reconciliation New Prescription acetaminophen (Tylenol 8 Hour 650 mg oral tablet, extended release)1 tab Oral (given by mouth) every 8 hours as needed as needed for fever. Refills: 0. ?? amoxicillin-clavulanate (!-Augmentin 875 mg-125 mg oral tablet)1 tab Oral (given by mouth) every 12hours for 10 Days. Refills: 0. ?? ibuprofen (ibuprofen 600 mg oral tablet)1 tab Oral (given by mouth) every 8 hours. Refills: 0. ?? Unchanged FLUoxetine ?? lamoTRIgine (LaMICtal) ?? oxybutynin ?? propranolol Problem List/Past Medical History Ongoing No qualifying data Historical No qualifying data Allergies No Known Medication Allergies Social History Electronic Cigarette/Vaping Electronic Cigarette Use: Never. Tobacco Never tobacco user Tobacco Use:. Electronically Signed on 12/16/22 02:03 PM Domonique Gomez MD Emergency department Discharge instructions * Domonique Gomez MD: PERFORM Event Display: ED Discharge Information Authored Date: [id number] PARTHA VELOZ :1980 Age:42 years Sex:Female Visit Date:12/16/2022 Primary Care Physician: Debby Puri MD Discharge Instructions We would like to thank you for allowing us to assist you with your healthcare needs. The following includes patient education materials and information regarding your injury/illness. Diagnosis from Today's Visit Periapical abscess Discharge Vitals Temperature??(Temporal Artery) 97.7 ??F (36.5 ??C) Heart Rate??(Peripheral) 72 Respiratory Rate?? 16 Blood Pressure?? 135/84?? Height?? 64.17 in (163.000 cm) Weight??(Estimated) 220.50 lb (100.00 kg) Allergies No Known Medication Allergies What to Do Next Instructions from Your Care Team Please take antibiotics twice a day in the next 10 days.?? For pain,??use ice packs??on your??jaw,??take??Tylenol 650 mg every 8 hours [id number]??and for severe pain take ibuprofen 600 mg??up to every 8 hours.?? Follow-up with your dentist for reevaluation tomorrow. ??Return to the emergencydepartment for any new or worsening symptoms. You Need to Schedule the Following Appointments Follow Up with??Dentist When:??Within 24 Hours You were treated today on an emergency [...] Much When Why Instructions Next Dose New acetaminophen (Tylenol 8 Hour 650 mg oral tablet,extended release) 1 tab Oral (given by mouth) Every 8 hours as needed for as needed for fever Periapical abscess Pickup at [facility] New amoxicillin-clavulanate (!-Augmentin 875 mg-125 mg oral tablet) 1 tab Oral (given by mouth) Every 12 hours Periapical abscess Duration: 10 Days Pickup at [facility] New ibuprofen (ibuprofen 600 mg oral tablet) 1 tab Oral (given by mouth) Every 8 hours Periapical abscess Pickup at [facility] Unchanged FLUoxetine Unchanged lamoTRIgine (LaMICtal) Unchanged oxybutynin Unchanged propranolol Pharmacy Information [facility]: [address] [place], [place] [id number] [phone] Education Materials Dental Abscess A dental abscess is an infection around a tooth that may involve pain, swelling, and a collection of pus, as well as other symptoms. Treatment is important to help with symptoms and to prevent the infection from spreading. The general types of dental abscesses are: ? Pulpal abscess. This abscess may form from the inner part of the tooth (pulp). ? Periodontal abscess. This abscess may form from the gum. What are the causes? This condition is caused by a bacterial infection in or around the tooth. It may result from: ? Severe tooth decay (cavities). ? Trauma to the tooth, such as a broken or chipped tooth. What increases the risk? This condition is more likely to develop in males. It is also more likely to develop in people who: ? Have cavities. ? Have severe gum disease. ? Eat sugary snacks between meals. ? Use tobacco products. ? Have diabetes. ? Have a weakened disease-fighting system (immune system). ? Do not brush and care for their teeth regularly. What are the signs or symptoms? Mild symptoms of this condition include: ? Tenderness. ? Bad breath. ? Fever. ? A bitter taste in the mouth. ? Pain in and around the infected tooth. Moderate symptoms of this condition include: ? Swollen neck glands. ? Chills. ? Pus drainage. ? Swelling and redness around the infected tooth, in the mouth, or in the face. ? Severe pain in and around the infected tooth. Severe symptoms of this condition include: ? Difficulty swallowing. ? Difficulty opening the mouth. ? Nausea. ? Vomiting. How is this diagnosed? This condition is diagnosed based on: ? Your symptoms and your medical and dental history. ? An examination of the infected tooth. During the exam, your dental care provider may tap on the infected tooth. You may also need to have X-rays taken of the affected area. How is this treated? This condition is treated by getting rid of the infection. This may be done with: ? Antibiotic medicines. These may be used in certain situations. ? Antibacterial mouth rinse. ? Incision and drainage. This procedure is done by making an incision in the abscess to drain out thepus. Removing pus is the first priority in treating an abscess. ? A root canal. This may be performed to save the tooth. Your dental care provider accesses the visible part of your tooth (crown) with a drill and removes any infected pulp. Then the space is filled and sealed off. ? Tooth extraction. The tooth is pulled out if it cannot be saved by other treatment. You may also receive treatment for pain, such as: ? Acetaminophen or NSAIDs. ? Gels that contain a numbing medicine. ? An injection to block the pain near your nerve. Follow these instructions at home: Medicines ? Take qbsd-cia-hxpqkpb and prescription medicines only as told by your dental care provider. ? If you were prescribed an antibiotic, take it as told by your dental care provider. Do not stop taking the antibiotic even if you start to feel better. ? If you were prescribed a gel that contains a numbing medicine, use it exactly as told in the directions. Do not use these gels for children who are younger than 2 years of age. ? Use an antibacterial mouth rinse as told by your dental care provider. General instructions ? Gargle with a mixture of salt and water 3???4 times a day or as needed. To make salt water, completely dissolve ?1 tsp (3???6 g) of salt in 1 cup (237 mL) of warm water. ? Eat a soft diet while your abscess is healing. ? Drink enough fluid to keep your urine pale yellow. ? Do not apply heat to the outside of your mouth. ? Do not use any products that contain nicotine or tobacco. These products include cigarettes, chewing tobacco, and vaping devices, such as e-cigarettes. If you need help quitting, ask your dental careprovider. ? Keep all follow-up visits. This is important. How is this prevented? Excellent dental home care, which includes brushing your teeth every morning and night with fluoride toothpaste. Floss one time each day. ? Get regularly scheduled dental cleanings. ? Consider having a dental sealant applied on teeth that have deep grooves to prevent cavities. ? Drink fluoridated water regularly. This includes most tap water. Check the label on bottled water to see if it contains fluoride. ? Reduce or eliminate sugary drinks. ? Eat healthy meals and snacks. ? Wear a mouth guard or face shield to protect your teeth while playing sports. Contact a health care provider if: ? Your pain is worse and is not helped by medicine. ? You have swelling. ? You see pus around the tooth. ? You have a fever or chills. Get help right away if: ? Your symptoms suddenly get worse. ? You have a very bad headache. ? You have problems breathing or swallowing. ? You have trouble opening your mouth. ? You have swelling in your neck or around your eye. These symptoms may represent a serious problem that is an emergency. Do not wait to see if the symptoms will go away. Get medical help right away. Call your local emergency services (911 in the [place] Do not drive yourself to the hospital. Summary ? A dental abscess is a collection of pus in or around a tooth that results from an infection. ? A dental abscess may result from severe tooth decay, trauma to the tooth, or severe gum disease around a tooth. ? Symptoms include severe pain, swelling, redness, and drainage of pus in and around the infected tooth. ? The first priority in treating a dental abscess is to drain out the pus. Treatment may also involveremoving damage inside the tooth (root canal) or extracting the tooth. This information is not intended to replace advice given to you by your health care provider. Make sure you discuss any questions you have with your health care provider. Document Revised: 01/11/2022 Document Reviewed: 01/11/2022 Elsevier Patient Education ?? 2021 [employer] Patient/Mixed Signal Design Engineer Signature Patient Name:PARTHA VELOZ I have received this information and my questions have been answered. Patient/Mixed Signal Design Engineer Name: Patient/Mixed Signal Design Engineer Signature: Relationship to Patient: Witness Name/Signature: Date: Electronically Signed on: 12/16/2022 13:59 ESTSigned by:[facility] Discharge summary * Loly Kumar: PERFORM Event Display: Discharge Note Authored Date: [id number] * Loly Kumar: PERFORM Event Display: Discharge Note Authored Date: Diagnosis: 1. Periapical abscess Comment: Diagnosis: Toothache Comment: Electronically Signed on 12/16/22 02:19 PM Loly Kumar Patient Care team information Personnel Name: Debby Puri MD Address: Address: [facility] [address] [place] [phone]
--- OUTSIDE RECORDS SUMMARY | 2024-06-01 06:51 | XMS_ITS | Continuity of Care Document ---
Author Organization [facility] Address [address] [place] [address] Care Team Providers Care Vest Busheler Name Role Phone Sree High Primary Care Physician Encounter [facility] Date(s): 02/25/24 - 02/25/24 [facility] [address] [place] [address] Discharge Disposition: Home or Self Care Attending Physician: Janis Larkin NP Admitting Physician: Janis Larkin NP Referring Physician: Janis Larkin NP Allergies, Adverse Reactions, Alerts No Known Medication Allergies Medications !-Zofran ODT 4 mg oral tablet, disintegrating 4 mg = 1 tab, Oral, TID, PRN as needed for nausea/vomiting, # 12 tab, 0 Refill(s), Pharmacy: [facility], 163, cm, 03/09/23 17:36:00 EDT, Height/Length [...] fever, # 30 tab, 0 Refill(s), Pharmacy: [facility] 163, cm, 12/16/22 12:46:00 EST, Height/Length Dosing, 100, kg, 12/16/22 12:46:00 EST,Weight Dosing Start Date: 12/16/22 Status: Ordered Vitamin D with Minerals oral tablet 0 Refill(s) Start Date: 02/11/23 Status: Ordered Social History Social History Type Response Tobacco Never tobacco user T obacco Use:. Sex Female Patient Care team information Care Team Personnel Name: Sree High-Emi Position: No Access Member Role: Informed Provider Address: Address: [id number] [place] [address] Care Team Related Persons Name: JAXON GREER Address: Home [address] [id number] Name: ANGELA AREVALO
--- OUTSIDE RECORDS SUMMARY | 2024-06-01 06:51 | XMS_ITS | Encounter Summary ---
Author Organization [facility] Address [address] [place] [id number] Care Team Providers Care Water Treatment Plant Supervisor Name Role Phone Debby Puri MD Primary Care Provider [phone] Encounter Details Date Type Department Care Team (Latest Contact Info) Description 10/21/2014 13:32 EST - 10/21/2014 23:59 EST Hospital Encounter [address] [address] Unknown, Provider, Discharge Disposition: Home or Self Care Social History Tobacco Use Types Packs/Day Years Used Date Smoking Tobacco: Never Assessed Sex and Gender Information Value Date Recorded Sex Assigned at Not on file Gender Identity Not on file Sexual Orientation Not on file documented as of this encounter Discharge Disposition Disposition Code Departure Means Destination Home or Self Half-Way documented in this encounter Plan of Treatment Not on file documented as of this encounter Visit Diagnoses Not on filedocumented in this encounter Care Teams Water Treatment Plant Supervisor Relationship Specialty Start Date End Date Debby Puri MD [address] [place] [address] [address] [place] [address] PCP - General 09/11/13 documented as of this encounter
--- OUTSIDE RECORDS SUMMARY | 2024-06-01 06:51 | XMS_ITS | Encounter Summary ---
Author Organization [facility] Address [address] [place] [address] Care Team Providers Care Retail Security Professional Name Role Phone Debby Puri MD Primary Care Provider [phone] Encounter Details Date Type Department Care Team (Latest Contact Info) Description 05/12/2015 9:36 EDT - 05/12/2015 23:59 EDT Hospital Encounter [address] [address] Unknown, Provider, Discharge Disposition: Home or Self Care Social History Tobacco Use Types Packs/Day Years Used Date Smoking Tobacco: Never Assessed Sex and Gender Information Value Date Recorded Sex Assigned at Not on file Gender Identity Not on file Sexual Orientation Not on file documented as of this encounter Discharge Disposition Disposition Code Departure Means Destination Home or Self Nursing Home documented in this encounter Plan of Treatment Not on file documented as of this encounter Visit Diagnoses Not on filedocumented in this encounter Care Teams Retail Security Professional Relationship Specialty Start Date End Date Debby Puri MD [address] [place] [address] [address] [place] [id number] PCP - General 09/11/13 documented as of this encounter
--- OUTSIDE RECORDS SUMMARY | 2024-06-01 06:51 | XMS_ITS | Referral Summary ---
Author Organization [facility] Address [address] [place] [address] Care Team Providers Care Aids Counselor Name Role Phone Debby Puri MD Primary Care Provider [phone] Social History Tobacco Use Types Packs/Day Years Used Date Smoking Tobacco: Never Assessed Interpersonal Safety Answer Date Record ed Physically Hurt Never 06/19/2020 Verbally Threaten Not on file 06/19/2020 Sex and Gender Information Value Date Recorded Sex Assigned at Not on file Gender Identity Not on file Sexual Orientation Not on file Plan of Treatment Not on file Procedures Procedure Name Priority Date/Time Associated Diagnosis Comments HEPATITIS C AB W REFLEX TO HCV RNA BY PCR Routine 12/28/2021 9:10 EST from Last 3 Months or Most Recently Relevant to Health Maintenance Results * HEPATITIS C AB W REFLEX TO HCV RNA BY PCR (12/28/2021 9:10 EST) Hep C Antibody Negative Negative 12/29/2021 9:53 EST [facility] Blood VENOUS BLOOD / Unknown 12/28/2021 9:10 EST 12/28/2021 17:07 EST Provider Outr Resulting Lab CHEMISTRY & BLOOD GAS ORDERABLES [facility] [address] [place] [address] from Last 3 Months or Most Recently Relevant to Health Maintenance Care Teams Aids Counselor Relationship Specialty Start Date End Date Debby Puri MD [address] [place] [address] [address] [place] [phone] PCP - General 09/11/13
--- OUTSIDE RECORDS SUMMARY | 2024-06-01 06:51 | XMS_ITS | Encounter Summary ---
Author Organization [facility] Address [address] [place] [address] Care Team Providers Care Surveyor Oil Well Directional Name Role Phone Gatito Crawford MD Primary Care Provider Unavail able Encounter Details Date Type Department Care Team (Late st Contact Info) Description 07/21/2013 Results Only [facility] ([facility]) [address] [place], [place] [address] Peg Hodges, [facility] [address] [place] [address] [place] [address] Social History Tobacco Use Types [...] Diagnosis Comments PAP TEST- RESULT ONLY Routine 07/21/2013 0:00 EDT documented in this encounter Results * PAP TEST- RESULT ONLY (07/21/2013 0:00 EDT) Pathology Report: CYTOPATHOLOGY REPORT Reports generated via electronic interface contain original data; however they are lacking the format of the original report. Caution should be taken when reading/interpreti ng unformatted reports. Name: ? LEANDRA VELOZ ? Accession #: ? [id number] ? : ? 1980 (Age: 33) ??F ?Collect Date: ? 07/21/2013 ? Location: ? [facility] ? Receive Date: ? 07/22/2013 ? Provider: PEG HODGES [facility] Copy to: LAMAR VALVERDE MD ? Final Report SPECIMEN ADEQUACY ? Satisfactory for Evaluation - transformation zone component present GENERAL CATEGORIZATION ? Negative for Intraepithelial Lesion or Malignancy ?? Last Menstrual Period: 07/13/13 Hormonal/Contracep tive status: Tubal ligation: bilateral Specimen/Source: ??Pap Test, Cervix/Endocervix, ThinPrep Imaging System with manual evaluation Document reviewed and electronically signed by: ? CHERELLE Hayden(ASCP) ? Report ??Date: 07/24/2013 14:47 HPV with Pap Test ? Date Ordered: ? 07/24/2013 ? Status: ?? Signed Out ?Date Complete: ? 07/28/2013 ? By: ??System Interface ? Date Reported: ? 07/28/2013 ? Interpretation RESULT: Negative for HPV. No E6 or E7 mRNA is detected from HPV types 16,18,31,33,35, 39,45,51,52,56,58, 59,66, and 68 by boom pump operator mediated amplification. Comments Document reviewed and electronically signed by: ? System Interface ? Report date: 07/28/2013 By the signature above, the attending physician certifies that he/she has personally conducted a gross and/or microscopic examination of the described specimens and rendered or confirmed the above diagnosis. End of Report [facility] 07/21/2013 07/22/2013 Peg Hodges HOLIST[facility] PULSER PATHOLOGY ORDERABLES Performing Organization Address City/State/[facility] Co de Phone Number [facility] [address] [place] [address] documented in this encounter Visit Diagnoses Not on filedocumented in this encounter Care Teams Surveyor Oil Well Directional Relationship Specialty Start Date End Date Gatito Crawford MD PCP - General 05/09/09 09/10/13 documented as of this encounter
--- OUTSIDE RECORDS SUMMARY | 2024-06-01 06:51 | XMS_ITS | Encounter Summary ---
Author Organization [facility] Address [address] [place] [address] Care Team Providers Care Slip Seat Coverer Name Role Phone Gatito Crawford MD Primary Care Provider Unavail able Encounter Details Date Type Department Care Team (Latest Contact Info) Description 09/08/2013 13:05 EDT - 09/08/2013 23:59 EDT Hospital Encounter [address] [address] Unknown, Provider, Discharge Disposition: Home or Self Care Social History Tobacco Use Types Packs/Day Years Used Date Smoking Tobacco: Never Assessed Sex and Gender Information Value Date Recorded Sex Assigned at Not on file Gender Identity Not on file Sexual Orientation Not on file documented as of this encounter Discharge Disposition Disposition Code Departure Means Destination Home or Self Long-Term documented in this encounter Plan of Treatment Not on file documented as of this encounter Visit Diagnoses Not on filedocumented in this encounter Care Teams Slip Seat Coverer Relationship Specialty Start Date End Date Gatito Crawford MD PCP - General 05/09/09 09/10/13 documented as of this encounter
--- OUTSIDE RECORDS SUMMARY | 2024-06-01 06:52 | XMS_ITS | Encounter Summary ---
Author Organization [facility] Address [facility] [place] [address] Care Team Providers Care Senior Database Programmer Name Role Phone Sree High APRN Primary Care Provider [phone]- [phone] Encounter Details Date Type Department Care Team (Latest Contact Info) Description 04/17/2024 7:44 AM EDT - 04/17/2024 9:39 AM EDT Hospital En[place] [id number] Iram Borrero MD [facility] [place] [address] Discharge Disposition: Home Social History Tobacco Use Types Packs/Day Years Used Date Smoking Tobacco: Never Smokeless Tobacco: Never Alcohol Use Standard Drinks/Week Comments Not Currently 0 (1 standard drink = 0.6 oz pur e alcohol) [facility] Inpatient Questions Answer Date Recorded Does Anyone Try to Keep You From Having Contact with Others or Doing Things Outside Your Home? no 03/18/2023 Feels Threatened by Someone no 11/2022 Feels Unsafe at Home or Work/School no 03/18/2023 Physical Signs of Abuse Present no 03/18/2023 Sex and Gender Information Value Date Recorded Sex Assigned at Female 10/05/2021 8:56 AM EST Gender Identity Not on file Sexual Orientation Straight 10/05/2021 8: 56 AM EST documented as of this encounter Last Filed Vital Signs Vital Sign Reading Time Taken Comments Blood Pressure 124/81 04/17/2024 9:30 AM EDT Pulse 100 04/17/2024 8:00 AM EDT Temperature 36.1 ??C (96.9 ??F) 04/17/2024 8:00 AM ED T Respiratory Rate 16 04/17/2024 9:30 AM EDT Oxygen Saturation 100% 04/17/2024 9:30 AM EDT Inhaled Oxygen Concentration - - Weight 55.8 kg (123 lb) 04/17/2024 8:00 AM EDT Height 162.6 cm (5' 4) 04/17/2024 8:00 AM EDT Body Mass Index 21.11 04/17/2024 8:00 AM EDT documented in this encounter Discharge Instructions * Discharge Instructions* Jerri Taylor, RN - 04/17/2024 8:54 AM EDT Upper GI Endoscopy: What to Expect at Home Your Recovery You will be able to go home after your doctor or nurse checks to make sure you are not having any problems. You may have to stay overnight if you had treatment during the test. You may have a sore throat fora day or two after the test. This care sheet gives you a general idea about what to expect after the test. How can you care for yourself at home? Activity Rest when you feel tired. You can do your normal activities when it feels okay to do so. Diet Follow your doctor's directions for eating. Unless your doctor has told you not to, drink plenty of fluids. This helps to replace the fluids that were lost during the prep. Do not drink alcohol. Medicines Your doctor will tell you if and when you can restart your medicines. He or she will also give you instructions about taking any new medicines. If you take blood thinners, such as warfarin (Coumadin), clopidogrel (Plavix), or aspirin, be sure to talk to your doctor. He or she will tell you if and when to start taking those medicines again. Make sure that you understand exactly what your doctor wants you to do. If polyps were removed or a biopsy was done during the test, your doctor may tell you not to take aspirin or other anti-inflammatory medicines for a few days. These include ibuprofen (Advil, Motrin) and naproxen (Aleve). If you have a sore throat the day after the procedure, use an eqke-cva-oztchxk spray to numb your throat. Sucking on throat lozenges and gargling with warm salt water may also help relieve your symptoms. Other instructions For your safety, do not drive or operate machinery until the medicine wears off and you can think clearly. Your doctor may tell you not to drive or operate machinery until the day after your test. Do not sign legal documents or make major decisions until the medicine wears off and you can think clearly. The anesthesia can make it hard for you to fully understand what you are agreeing to. Additional Information for Sedation Patients For patients who received sedation: You may have received medications before and/or during your procedure which effects your judgement and reaction time. Do not drive, operate machinery, drink alcoholic beverages or make important decisions for 24 hours. Be careful on stairs as you may be unsteady on your feet. You may eat a regular diet as tolerated. Do not smoke if you are alone. IV site: Slight redness or tenderness is normal, you can use a warm compress if you would like. If tenderness and/or redness increase or if foul drainage occurs, please contact your Doctor. Please call [phone] before 8pm Mon-Fri with problems, questions or concerns. If you call after 8pm or on weekends, call the Hospital at [phone] and ask to speak to the Assistant Administrator explosives detonator and the refinery operator helper crude unit will contact that person for you. When should you call for help? Call 111 anytime you think you may need emergency care. For example, call if: You passed out (lost consciousness). You pass maroon or bloody stools. You have trouble breathing. Call your doctor now or seek immediate medical care if: You have pain that does not get better after you take pain medicine. You are sick to your stomach or cannot drink fluids. You have new or worse belly pain. You have blood in your stools. You have a fever. You cannot pass stools or gas. Watch closely for changes in your health, and be sure to contact your doctor if you have any problems. Where can you learn more? [facility] View your After Visit Summary and more online at [email or web address] If you would like to provide feedback about your hospital experience, please call the Office of Patient and Family Relations at . If you have received this After Visit Summary in error, please immediately return it in person to the department, or notify the [facility] Privacy Office by calling toll free at between the hours of 8AM and 5PM to arrange for our retrieval of the documents at no cost to you. Content Version: 12.2 ?? [id number] [employer]. Care instructions adapted under license by [facility]. If you have questions about a medical condition or this instruction, always ask your healthcare professional. [employer] disclaims any warranty or liability for your use of this information. documented in this encounter Medications at Time of Discharge Medication Sig Dispensed Refills Start Date End Date meclizine (Antivert) 25 mg chewable tablet CHEW ONE TABLET BY MOUTH THREE TIMES A DAY FOR 7 DAYS NEEDED FOR DIZZINESS 10/09/2023 sucralfate (Carafate) 100 mg/mL SuspensionIndications:Epi gastric pain Take 10 mLs by mouth 4 times daily. 420 mL 10/22/2023 SF 5000 Plus 1.1 % Cream BRUSH TEETH DIRECTED 05/30/2023 ondansetron ODT (Zofran-ODT) 4 mg disintegrating tablet Take 1 tablet by mouth every 8 hours. 20 tablet 03/29/2023 acetaminophen (Tylenol) 325 mg tablet Take 2 tablets by mouth every 6 hours as needed for Pain. 30 tablet 1 03/29/2023 cholecalciferol, Vitamin D3, 50 mcg (2,000 unit) Capsule Take 1 capsule by mouth daily. 12/26/2022 Certavite-Antioxidant 18-400 mg-mcg Tablet Take 1 tablet by mouth daily. 01/24/2023 Emgality Pen 120 mg/mL Pen Injector Inject 120 mg as directed every 30 days. 07/30/2022 propranoloL (Inderal) 20 mg Tablet Take 20 mg by mouth 2 times daily. 06/12/2021 cyclobenzaprine (Flexeril) 5 mg Tablet Take 5 mg by mouth 3 times daily as needed. 05/04/2021 FLUoxetine (PROzac) 20 mg Capsule Take 20 mg by mouth Daily. latanoprost (XALATAN) 0.005 % Drops Place 1 drop into both eyes nightly. 3 07/30/2016 PROAIR HFA 90 mcg/actuation HFA Aerosol Inhaler Inhale 1 puff into the lungs every 6 hours as needed. 2 04/11/2016 documented as of this encounter H&P Notes * Iram Borrero MD - 04/17/2024 8:32 AM EDT [facility] General Surgery History and Physical History of Present Illness: Leandra Wilks is a 44 y.o. female with hx of gastric bypass now with upper abdominal pain who presents today for upper endoscopy. Past Medical History: Patient Active Problem List Diagnosis Code Irritable bowel syndrome with diarrhea K58.0 Back pain M54.9 Chronic pelvic pain in female R10.2, G89.29 Unspecified dyspareunia N94.10 Mood disorder F39 Calculi, ureter N20.1 Pain in right foot M79.671 Endometriosis N80.9 Glaucoma H40.9 Fibromyalgia M79.7 Osteoarthritis, multiple sites M15.9 Adult BMI 40.0-44.9 kg/sq m Z68.41 Depression with anxiety F41.8 CHUN (obstructive sleep apnea) G47.33 Severe obesity (BMI >= 40) E66.01 Abdominal pain R10.9 Severe protein-calorie malnutrition E43 Diplopia H53.2 Dizziness R42 Physical deconditioning R53.81 Past Surgical History: Past Surgical History: Procedure Laterality Date ABDOMINAL EXPLORATION SURGERY 10/31/2004 b/l salpingectomy and removel enodmetrial implantsin cul de sac APPENDECTOMY CARPAL TUNNEL RELEASE Bilateral CHOLECYSTECTOMY HYSTERECTOMY, VAGINAL 05/12/2015 PRO FREEING BOWEL ADHESION, ENTEROLYSIS N/A 03/22/2023 @LYSIS OF ADHESIONS, ABD. (WRVU 18.46) performed by Iram Borrero MD at [facility] MAIN OR PRO LAP GASTRIC BYPASS/RENATO-EN-Y N/A 01/10/2023 @LAPAROSCOPIC GASTROPLASTY W/ RENATO-EN-Y CONSTRUCTION (WRVU 29.4) performed by Iram Borrero MDat [facility] MAIN OR PRO LAP, DIAGNOSTIC ABDOMEN N/A 03/22/2023 LAPAROSCOPY, DIAGNOSTIC, ABDOMEN (WRVU 5.14) performed by Iram Borrero MD at [facility] MAIN OR PRO UPPER GI ENDOSCOPY, DIAGNOSTIC N/A 01/10/2023 EGD, UPPER GI ENDOSCOPY performed by Iram Borrero MD at [facility] MAIN OR PRO UPPER GI ENDOSCOPY, DIAGNOSTIC N/A 03/05/2023 EGD, UPPER GI ENDOSCOPY (WRVU 2.09) performed by Iram Borrero MD at [facility] MAIN OR PRO UPPER GI ENDOSCOPY, DIAGNOSTIC N/A 03/20/2023 EGD, UPPER GI ENDOSCOPY (WRVU 2.09) performed by Gerber Salomon MD at [facility] ENDOSCOPY Medications: No current facility-administered medications on file prior to encounter. Current Outpatient Medications on File Prior to Encounter Medication Sig Dispense Refill meclizine (Antivert) 25 mg chewable tablet CHEW ONE TABLET BY MOUTH THREE TIMES A DAY FOR 7 DAYS ASNEEDED FOR DIZZINESS ondansetron ODT (Zofran-ODT) 4 mg disintegrating tablet Take 1 tablet by mouth every 8 hours. 20 tablet 0 acetaminophen (Tylenol) 325 mg tablet Take 2 tablets by mouth every 6 hours as needed for Pain. 30 tablet 1 Emgality Pen 120 mg/mL Pen Injector Inject 120 mg as directed every 30 days. propranoloL (Inderal) 20 mg Tablet Take 20 mg by mouth 2 times daily. FLUoxetine (PROzac) 20 mg Capsule Take 20 mg by mouth Daily. sucralfate (Carafate) 100 mg/mL Suspension Take 10 mLs by mouth 4 times daily. 420 mL 0 SF 5000 Plus 1.1 % Cream BRUSH TEETH DIRECTED cholecalciferol, Vitamin D3, 50 mcg (2,000 unit) Capsule Take 1 capsule by mouth daily. Certavite-Antioxidant 18-400 mg-mcg Tablet Take 1 tablet by mouth daily. cyclobenzaprine (Flexeril) 5 mg Tablet Take 5 mg by mouth 3 times daily as needed. latanoprost (XALATAN) 0.005 % Drops Place 1 drop into both eyes nightly. 3 PROAIR HFA 90 mcg/actuation HFA Aerosol Inhaler Inhale 1 puff into the lungs every 6 hours as needed. 2 Allergies: Patient has no known allergies. Family History: No family history on file. Social History: reports that she has never smoked. She has never used smokeless tobacco. She reports that she does not currently use alcohol. She reports that she does not currently use drugs. Review of Systems: A 10 point review of systems was performed. Pertinent positives and negatives are listed in the above HPI. All other systems are negative. Physical Exam: Vital Signs: BP 128/82 Pulse 100 Temp 36.1 ??C (96.9 ??F) (Temporal) Ht 162.6 cm (5' 4) Wt55.8 kg (123 lb) SpO2 100% BMI 21.11 kg/m?? General appearance: Alert and oriented, appears stated age, well groomed HEENT: No scleral icterus, normocephalic, atraumatic Skin: No jaundice Heart: Regular rate Lungs: Symmetric chest rise, no distress Extremities: Moves all four extremities, no gross deformity. Assessment and Recommendation: A 44 y.o.-old female with hx of a gastric bypass now with upper abdominal pain. Plan to proceed with upper endoscopy. Iram Borrero MD General Surgery Minimally Invasive Surgery [phone] documented in this encounter Miscellaneous Notes * Op Note - Iram Borrero MD - 04/17/2024 8:37 AM EDT [facility] Operative Note Patient Name: Leandra Wilks : [id number] MR#: [id number] Case Date: 04/17/2024 Surgeon: Surgeons and Role: * Iram Borrero MD - Primary Preoperative diagnosis: hiatal hernia s/p luis fernando-surg gerd Postoperative diagnosis: Hx of gastric bypass, gastritis Procedure(s) (LRB): EGD WITH BIOPSY (WRVU 2.39) (N/A) Please see Provation for full procedure report. documented in this encounter Plan of Treatment Scheduled Procedures Name Priority Associated Diagnoses Date/Ti nm COLONOSCOPY, DIAGNOSTIC (WRV U 3.26) Biliary stricture Screening for colon cancer documented as of this encounter Goals Goal Patient Goal Type Associated Problems Recent Progress Patient-Stated? Author meal timing/food choices Lifestyle On track(2021 10:30 AM EST) Jill Colmenares, BRYANNA Note: Meal timing: consider eating within an 8-10 hour eating window, avoid snacking - protein to start, first meal around 9-10 am, snack noon if hungry,: yogurt 2pm: snack such as grapes and cheese, evening meal around 5, limit or eliminate snacking after dinner Try to start your day with some protein will have formal RD visit for individualized dietary plan to address eating behaviors and timing/frequency of meals. Try to eliminate sugar sweetened beverages and artifical sweetener in drinks. Decrease processed food in favor of more whole foods Avoid or limit alcohol Goal 64 ounce of water daily. -great job with this sleep Lifestyle On track(2021 10:29 AM EST) Jill Colmenares, BRYANNA Note: Follow up with sleep, do sleep study. Goal 7 hours of sleep nightly. Recommend consistent sleep and wake times, avoid electronics within one hour of sleep time stress management Lifestyle On track(2021 10:28 AM EST) Jill Colmenares, CONTRACT PROGRAMMER Note: Mindfulness/deep breathing practice to reduce cortisol -try for at least 10 minutes a day -try an ap such as headspace I have referred you to our psychologist to work on eating behaviors Health Faculty Physician is sending hand-outs with exercises for mindful eating, The Pause/STOP and Urge surfing. Patient will review and try implementing some behaviors before we meet again. movement Lifestyle On track(2021 10:29 AM EST) Jill Colmenares, CONTRACT PROGRAMMER Note: Exercise goal is 150 min a week, just do some walking, even [address] to start Recommend resistance training 3 times a week -can use [employer] - 09/26/22 Lifestyle On track(2021 10:29 AM EST) Hailee Wetzel RD Note: Nutrition Goals: Continue exercise routine - goal of 150 minutes per week of aerobic exercise (treadmill, walking outside); resistance bands 2-3 times per week (alternate between upper and lower body); explore at home exercise options Choose protein first at all eating events; increase vegetable intake Continue to Practice Bariatric Drinking Behaviors - continue to separate eating and drinking by 30 minutes both before and after meal time; water 48-64oz/day, sip water slowly outside of meal times documented as of this encounter Procedures Procedure Name Priority Date/Time Associated Diagnosis Comments SURGICAL PATHOLOGY REPORT Routine 04/17/2024 8:45 AM EDT SPECIMEN TO PATHOLOGY Routine 04/17/2024 8:45 AM EDT Upper Gi Endoscopy, Biopsy ([id number]) 04/17/2024 8:32 AM EDT Hiatal hernia Gastroesophageal reflux disease, unspecified whether esophagitis present UPPER GI ENDOSCOPY Routine 04/17/2024 7: 57 AM EDT documented in this encounter Results * Surgical Pathology Report (04/17/2024 8:45 AM EDT) Surgical Pathology Report [id number] ? Location: 4T; [facility]; A The signing pathologist has (i) examined the relevant preparation(s) for the specimen(s) and (ii) rendered or confirmed the diagnosis(es). . ?Surgical Pathology DIAGNOSIS A - Gastric pouch, r/o H Pylori, biopsy (Multiple): - ??Gastric fundic mucosa within normal limits. - ??No H. pylori-like microorganisms are seen. Electronically signed by: ?Howard PHILLIPS, Geraldine Mcintyre Verified: ??04/24/2024 7:38 ?? Pathologist Performed at: ??-[facility] Dept. of Pathology, [place] [id number] Transport Medic: Geraldine Lawrence MD, FCAP, ??CLIA Certificate: [id number] SPECIMEN(S) SUBMITTED A - gastric pouch, r/o H Pylori, biopsy (Multiple) CLINICAL INFORMATION 44-year-old female, gastric bypass now with upper abdominal pain SPECIMEN PROCESSING A - Labeled/Fixative: Gastric pouch, rule out H. pylori, formalin. Quantity/Size: Two, 0.4 and 0.6 cm. Tissue Description: Soft, mcdonough tissues. Sections/Processi ng: Submitted in toto ??in 1 cassette labeled A1. ??sdy [facility] 04/17/2024 8:45 AM EDT Iram Borrero MD PATHOLOGY/CYTOLOGY O MANDY Performing Organization Address [facility]/[place] [address] * Specimen to Pathology (04/17/2024 8:45 AM EDT) AP Specimen 04/17/2024 8:45 AM EDT 04/17/2024 8:45 AM EDT Narrative [facility] - 04/17/2024 8:45 AM EDT Specimen requisition ordered. ??Separate Pathology report to follow Iram Borrero MD PATHOLOGY/CYTOLOGY O MANDY Performing Organization Address City/[facility]/[place] [address] * UPPER GI ENDOSCOPY (04/17/2024 7:57 AM EDT) UPPER GI ENDOSCOPY [facility] Endoscopy Procedure Date: 04/17/2024 7:57 AM ? Patient Name: Leandra Wilks ? Date of : 1980 ? Age: 44 ? Order #: [id number] ? Instrument Name: [id number] ? Procedure: ? Upper GI endoscopy Indications: ? Epigastric abdominal pain, ? Dyspepsia, Assessment following ? Renato-en-Y gastrojejunostomy Providers: ? Daryl Ulloa, ? RN, Katherin Woods Referring MD: ?Sree High Medicines: ? Monitored Anesthesia Care Complications: ? No immediate complications. Procedure: ? The procedure, indications, ? benefits, risks and alternatives ? were explained to the patient. ? Specifically discussed were ? potential complications including, ? but not limited to, bleeding, ? perforation, infection, missing a ? cancer, and adverse medication ? reactions. The Endoscope was ? introduced through the mouth, and ? advanced to the gastric stoma The ? upper GI endoscopy was accomplished ? with ease. The patient tolerated ? the procedure well. ? Findings: ? The examined esophagus was normal. ? The examined jejunum was normal. ? Evidence of a gastric bypass was found. A gastric ? pouch with a normal size was found. The staple line ? appeared intact. The gastrojejunal anastomosis was ? characterized by healthy appearing mucosa and ? erythema. This was traversed. The huxbq-sb-tncxknj ? limb was characterized by healthy appearing mucosa. ? The jejunojejunal anastomosis was characterized by ? healthy appearing mucosa. Biopsies were taken with a ? cold forceps for Helicobacter pylori testing. ? Estimated blood loss: none. ? The Z-line was regular and was found 37 cm from the ? incisors. ? Moderate Sedation: ? Sedation performed by Anesthesia team Impression: ?- Normal esophagus. ? - Normal examined jejunum. ? - Gastritis. Recommendation: ?- Return to Bariatric clinic as ? previously scheduled. ? Procedure Code(s): ? --- Professional --- ? 67625, 52, ? Esophagogastroduoden oscopy, ? flexible, transoral; with biopsy, ? single or multiple Diagnosis Code(s): ? --- Professional --- ? R10.13, Epigastric pain ? K29.70, Gastritis, unspecified, ? without bleeding ? --- Technical --- ? R10.13, Epigastric pain ? K29.70, Gastritis, unspecified, ? without bleeding CPT copyright 2021 [employer]. All rights reserved. The codes documented in this report are preliminary and upon sizing machine tender review may be revised to meet current compliance requirements. Attending Participation: ? I personally performed the entire procedure. ? Iram Borrero MD Iram Borrero, 04/17/2024 10:00:34 AM This report has been signed electronically. Number of Addenda: 0 Note Initiated On: 04/17/2024 7:57 AM PROVATION 04/17/2024 7:57 AM EDT Sree High CONTRACT PROGRAMMER GENERAL SURGICAL O [employer]DERABLES PROVATION documented in this encounter Visit Diagnoses Not on filedocumented in this encounter Administered Medications Inactive Administered Medications - up to 3 most recent administrations Medication Order MAR Action Action Date Dose Rate Site lactated ringers infusion 100 mL/hr, Intravenous, CONTINUOUS, Starting on Sat04/17/24 at 0815, Until Sat04/17/24 at 0855, Endoscopy (Day of Procedure) New Bag 04/17/2024 8:08 AM EDT 100 mL/hr 100 mL/hr documented in this encounter Active and Recently Administered Medications Times are shown in EDT. Continuous Medication Order 04/15/2024 04/16/2024 04/17/2024 lactated ringers infusion (CANCELED) 100 mL/hr, Intravenous, CONTINUOUS, Starting on Sat04/17/24 at 0815, Until Sat04/17/24 at 0855, Endoscopy (Day of Procedure) 0808 (New Bag - Prov ider: Dede Orourke RN) documented in this encounter Care Teams Senior Database Programmer Relationship Specialty Start Date End Date Sree High APRN [address] [place] [address] [address] [place] [address] PCP - General Family Medicine 12/19/22 documented as of this encounter
--- OUTSIDE RECORDS SUMMARY | 2024-06-01 06:52 | XMS_ITS | Encounter Summary ---
Author Organization [facility] Address [facility] [place] [address] Care Team Providers Care Heating And Ventilating Tender Name Role Phone Sree High APRN Primary Care Provider [phone]- [phone] Encounter Details Date Type Department Care Team (Latest Contact Info) Description 11/18/2023 Travel Social History Tobacco Use Types Packs/Day Years Used Date Smoking Tobacco: Never Smokeless Tobacco: Never Alcohol Use Standard Drinks/Week Comments Not Currently 0 (1 standard drink = 0.6 oz pur e alcohol) IPV Inpatient Questions Answer Date Recorded Does Anyone Try to Keep You From Having Contact with Others or Doing Things Outside Your Home? no 03/18/2023 Feels Threatened by Someone no 050 11/2022 Feels Unsafe at Home or Work/School no 03/18/2023 Physical Signs of Abuse Present no 03/18/2023 Sex and Gender Information Value Date Recorded Sex Assigned at Female 10/05/2021 8:56 AM EST Gender Identity Not on file Sexual Orientation Straight 10/05/2021 8: 56 AM EST documented as of this encounter Plan of Treatment Scheduled Procedures Name Priority Associated Diagnoses Date/Ti wv COLONOSCOPY, DIAGNOSTIC (WRV U 3.26) Biliary stricture Screening for colon cancer documented as of this encounter Goals Goal Patient Goal Type Associated Problems Recent Progress Patient-Stated? Author meal timing/food choices Lifestyle On track(2021 10:30 AM EST) No Jill Farooq APRN Note: Meal timing: consider eating within an [...] On track(2021 10:28 AM EST) Jill Colmenares, ICT TRAINER Note: Mindfulness/deep breathing practice to reduce cortisol -try for at least 10 minutes a day -try an ap such as headspace I have referred you to our psychologist to work on eating behaviors [employer] is sending hand-outs with exercises for mindful eating, The Pause/STOP and Urge surfing. Patient will review and try implementing some behaviors before we meet again. movement Lifestyle On track(2021 10:29 AM EST) Jill Colmenares, ICT TRAINER Note: Exercise goal is 150 min a week, just do some walking, even [address] to start Recommend resistance training 3 times a week -can use [employer] Nutrition - 09/26/22 Lifestyle On track(2021 10:29 AM EST) No Hailee Martínez, CHANG Note: Nutrition Goals: Continue exercise routine - [...] meal times documented as of this encounter Visit Diagnoses Not on filedocumented in this encounter Care Teams Heating And Ventilating Tender Relationship Specialty Start Date End Date Sree High, ICT TRAINER [address] [place] [address] [address] [facility] [address] [place] [address] PCP - General Family Medicine 12/19/22 documented as of this encounter
--- OUTSIDE RECORDS SUMMARY | 2024-06-01 06:52 | XMS_ITS | Encounter Summary ---
Author Organization [facility] Address [facility] [place] [address] Care Team Providers Care Professor Of Social Work Name Role Phone Sree High APRN Primary Care Provider [phone]- [phone] Reason for Visit * Physical Therapy (Routine) - Authorized Specialty Diagnoses / Procedures Referred By Chela t Referred To Contact Physical Therapy Diagnoses Dysequilibrium Balance problem Pito Hess, [place] [facility] [place] [address] [facility] [place] [address] Referral ID Status Reason Start Date Expiration Date Visits Requested Visits Authorized [id number] Authorized Evaluate and Treat 09/24/2023 09/23/2024 30 30 Encounter Details Date Type Department Care Team (Late st Contact Info) Description 05/22/2024 12:30 PM EDT Office [place] [address] Rhianna Summers, PT Vestibular dysfunction, unspecified laterality; Dizziness Social History Tobacco Use Types Packs/Day Years Used Date Smoking Tobacco: Never Smokeless Tobacco: Never Alcohol Use Standard Drinks/Week Comments Not Currently 0 (1 standard drink = 0.6 oz pur e alcohol) [facility] Inpatient Questions Answer Date Recorded Does Anyone [...] AM EST documented as of this encounter Miscellaneous Notes * Initial Evaluation - Rhianna Summers, PT - 05/22/2024 12:30 PM EDT Images from the original note were not included. Date of Initial Evaluation: 05/22/24 Medicare Cert Period: n/a Diagnosis and Pertinent Co-Morbidities Affecting Plan of Care: ICD-10-CM 1. Vestibular dysfunction, unspecified laterality H81.90 2. Dizziness R42 History of Present Illness: History of current problem: Leandra Wilks is a 44 y.o. female referred to physical therapy for dizziness most c/w central dysfunction ? Vestibular migraines; sig decreased balance on exam. Gastric bypass surgery was December 2022. February-2022 went to the ER for malnutrition, during her ER visit she was suddenly dizzy. The room started spinning and wobbling back and fourth when it wasn't spinning. Worse with bed mobility. Continues to persist even now. Sitting still is dizzy: 07/28 Things that make it worse: anything really. Walking definitely makes it worse. Remains worse until she sits down. Laying down does not make it better even if after laying for a while. Dizzy = sometimes the room spins, and sometimes it is a back and forth rocking. No one mentioned it was related to malnutrition. Sometimes when walking she feels confused, like it's brain fog, she'll forget what she was doing, also happens when she's walking. Falls: No Associated symptoms: Sometimes does have a headache. Tinnitus, hearing loss, hearing aids, ear symptoms: Does address pressure/fullness and a little pain in her right ear, since this started last spring. Bilateral numbness or tingling or around the face or lips: no Ataxia: no Drop attacks: no Diplopia: yes, Trying to drive and looking at the line in the road it'll be double, sometimes on the TV. Dysphagia: yes Dysarthria: no Weakness: Feels weakness in both the arms. Hx of head injury: fell down a few years ago and hit her head pretty hard. Not sure if she had a concussion afterward. Hx of migraines/STEEN: Notes they've been getting better, but for the past week she's been getting them daily. Usually moderate. Bilateral temples. Constant. Addresses light and sound sensitivity. No change with physical activity. Not sure about visual auras. Cervical issues: no Vision: 1 month ago was evaluated Peripheral sensation: a little in her hands, present 50% of the time. PMH sig for: *See chart for full list. Social History/Personal factors affecting plan of care: Hx of anxiety or depression: currently being treated for both. Living situation/social support: Lives with her boyfriend and his son and girlfriend - feels supported. Occupation: not currently working, does want to work. Current Exercise/hobbies: Tries to walk as much as possible. Usually 1x/day walks up the sidewalk until she can't really go any further. Walks 3-5 minutes. Sleep: Up quite a bit, On a good night, 7 hours of sleep. Average gets 5 hours. Function: Prior level of function: Ind in all activities Current functional limitations: Taking a shower, afraid she's going to fall, also challenging doing[employer] shopping, going to the bank Imaging: March 2023: MRI brain wwo contrast: normal. CT head normal. (Summary of most recent radiology report only, please see eD-H imaging for full report and imaging history.) Treatment to date has included: think she went to one appt for PT but can't recall where. Patient Goals: To feel better. CLINICAL FINDINGS: OCULOMOTOR EXAM In room light Central signs ROM: normal Smooth pursuit horiz/vert: normal Gaze-holding nystagmus: Positive; in L gaze has bi-directional torsional nystagus with slight downbeat component. In R gaze also bi-directional. Seems to have a greater preponderance of R torsion in R gaze and L torsion in L gaze. Spontaneous nystagmus: Bi-directional horizontal nystagmus, small amplitude. Saccades: abnormal - hypometric in horizontal plane, normal vertical. Cover/uncover: Negative Test of skew: Negative Horiz ocular laterodeviation: Negative Vergence: abnormal approx 8 cm (<5cm = normal) VOR cancellation: normal Peripheral signs VOR slow: normal VOR rapid head thrust: Negative Gaze-holding nystagmus: Negative With fixation blocked Spontaneous nystagmus: Positive beats both left and right at equal measure Gaze-evoked nystagmus: Comments: L beat with L torsion downbeat nystagmus and R beat with bidirectional torsion Head shaking induced nystagmus: Negative horizontal only Vibration-induced nystagmus (100hz) at mastoid: Not Tested Pressure-induced nystagmus indicating possible fistula: Not Indicated Hyperventilation testing indicating possible schwannoma: Not Indicated Vero-Hallpike: Negative Roll test: Negative If roll test positive, null point present? N/a [place] and lean: Not Tested BALANCE TESTING: mCTSIB: Unable to maintain condition 4 SENSORY ORGANIZATION TEST (SOT): Meaningful improvement >8 points1 Increased fall risk if composite score <38 points2 Dizziness Handicap Inventory (DHI): Higher score = greater perceived handicap d/t dizziness 05/22/2024 12:39 PM Dizziness Handicap Inventory 1. Does looking up increase your problem? Yes 2. Because of your problem, do you feel frustrated? Yes 3. Because of your problem, do you restrict your travel for business or pleasure? Yes 4. Does walking down the aisle of a [employer] increase your problem? Yes 5. Because of your problem, do you have difficulty getting into or out of bed? Yes 6. Does your problem significantly restrict your participation in social activities such as going out to dinner, the movies, dancing or to parties? Yes 7. Because of your problem, do you have difficulty reading? Yes 8. Does performing more ambitious activities like sports, dancing, or financial institution branch manager such as sweeping or putting dishes away increase your problem? Yes 9. Because of your problem, are you afraid to leave your home without having someone accompany you?Yes 10. Because of your problem, are you embarrassed in front of others? Yes 11. Do quick movements of your head increase your problem? Yes 12. Because of your problem, do you avoid heights? Yes 13. Does turning over in bed increase your problem? Sometimes 14. Because of your problem, is it difficult for you to do strenuous housework or yard work? Yes 15. Because of your problem, are you afraid people may think that you are intoxicated? Yes 16. Because of your problem, is it difficult to go for a walk by yourself? Yes 17. Does walking down a sidewalk increase your problem? Yes 18. Because of your problem, is it difficult for you to concentrate? Yes 19. Because of your problem, is it difficult for you to walk around your house in the dark? Yes 20. Because of your problem, are you afraid to stay home alone? Yes 21. Because of your problem, do you feel handicapped? Yes 22. Has your problem placed stress on your relationships with members of your family or friends? Yes 23. Because of your problem, are you depressed? Sometimes 24. Does your problem interfere with your job or household responsibilities? Sometimes 25. Does bending over increase your problem? Sometimes Total Physical 20 Total Emotional 34 Total Functional 38 Total DHI Score 92 (Severe Handicap) Initial Treatment/Home Exercises: Examination Patient education regarding diagnosis and physical therapy plan of care Instruction in a home exercise program Access Code: [email or web address] URL: [email or web address] Date: 05/22/2024 Prepared by: Rhianna Summers Program Notes Work on progress walks, your goal is to work up to 3 10-minute walks per day. Exercises - Standing Vestibular Gaze Fixation with Head Rotation - 4 x daily - 7 x weekly - 1 sets - 2 reps -1 minute hold - Romberg Stance Eyes Closed on Foam Pad - 2 x daily - 7 x weekly - 1 sets - 2 reps - 30-60 second hold CLINICAL EVALUATION: Pt is a 44 y.o. female presenting to PT for vestibular evaluation due to history of unremitting dizziness since being admitted to the ER for malnutrition s/p gastric bypass surgery a couple months prior. Leandra notes she's in a constant state of dizziness of 9/10 with exacerbation of dizziness when walking. When she saw Pito in ENT there was a question if she fit diagnostic criteria for vestibular migraine. During evaluation today Leandra is noted to have spontaneous nystagmus with bidirectional horizontal nystagmus. L gaze with L torsional downbeat nystagmus and R gaze with bidrectional torsional nystagmus with R horizontal beat. This is consistent with her report of the world sometimes spinning and when not spinning moving back and forth. Best seen with fixation blocked. Hypermetric saccades with L horizontal plane testing, normal R and vertical. Full ROM. Impaired vergence at approx 8cm. Negative BPPV testing. SOT testing positive for visual and vestibular impairment. VOR was not timed, but markedly below norms, likely <100bpm horizontal. VOR is challenging for Leandra to perform since at baseline there is some left to right shifting in central gaze, in this case the letter M. Performed VOR with a smaller than normal range to avoid abnormal movement from gaze-evoked nystagmus. In addition to her baseline nystagmus, I believe she also has an underlying vestibular dysfunction (vestibmigraine? 3PD?). As a result of these impairments she's limited in BADLs such as showering, IADLs such as grocery shopping, and very limited in ability to engage in recreational activities as needed for overall health and quality of life such as regular walking. Her current walking is limited to 3-5 minutes due to progressive dizziness. (Might be worth testing for pots given sig impairment in walking tolerance s/p gastric bypass?) Encouraged Leandra that with consistent vestibular rehab I do believe her baseline dizziness can become more manageable. Given score of 92 on the DHI, research indicates psychological component to her dizziness. Given her nystagmus and baseline symptoms this would not be surprising. Educated on theimportance of not limiting her activity due to dizziness, when safe to do so, as this will continueto limit her activity progressively over time. Used the analogy of a 'bully.' The need to push backon symptoms, but being mindful to push back within reason progressively over time. At this time Leandra will f/u with vestibular PT closer to home. Gave her the name/# of 2 vestibular therapists in her area. All questions answered. The patient will benefit from skilled physical therapy interventions to return to regular activities. The patient's clinical presentation is evolving due to sudden onset of severe dizziness/nystagmus without known cause. Clinical decision making of moderate complexity evaluation using standardized patient assessment instrument and measurable assessment of functional outcome. GOALS: Outcome Measure Data Tracker - Date 05/22/24 DHI (self-report, higher score indicates greater perceived deficit) 92 Functional Gait Assessment (higher score = better dynamic balance, </= 22 is fall risk) NT Modified CTSIB condition 4 0 SOT 50 VOR speed <100 Leandra to f/u with local vestibular therapist. PLAN: N/a Treatment: Manual Techniques, Soft Tissue Mobilization, Stretching, Joint Mobilization, Therapeutic Exercise, Modalities (PRN to control pain and inflammation) Ionto/Phonophoresis, Electrical stimulation, and ice/heat, Patient/Family Education, Body Mechanics, Posture, Home Exercise Program, Balance and Gait T raining, Biofeedback, Pain Science Education, Vestibular Rehabilitation, and Canalith RepositioningManeuvers, as appropriate. Total Treatment time: 90 minutes Total Timed Code Treatment: 0 minutes Interventions to consider for upcoming visit(s): if returns to clinic, recommend POTS assessment, but reports she will f/u with local clinic. The plan has been discussed with the patient and Leandra Wilks has agreed with the planned treatment. Diagnostic criteria for Vestibular Migraine per ICHD-3: At least five episodes fulfilling criteria C and D A current or past history of 1.1 Migraine without aura or 1.2 Migraine with aura1 Vestibular symptoms2 of moderate or severe intensity3, lasting between 5 minutes and 72 hours4 At least half of episodes are associated with at least one of the following three migrainous features5: headache with at least two of the following four characteristics: a) unilateral location b) pulsating quality c) moderate or severe intensity d) aggravation by routine physical activity photophobia and phonophobia6 visual aura Not better accounted for by another ICHD-3 diagnosis or by another vestibular disorder. documented in this encounter Plan of Treatment Scheduled Procedures Name Priority Associated Diagnoses Date/Ti me COLONOSCOPY, DIAGNOSTIC (WRV U 3.26) Biliary stricture Screening for colon cancer Scheduled Referrals Name Type Priority Associated Diagnoses Orde r Schedule Referral to Physical Therapy Outpatient Referral Routine Dysequilibrium Balance problem Ordered: 09/24/2023 documented as of this encounter Goals Goal Patient Goal Type Associated Problems Recent Progress Patient-Stated? Author meal timing/food choices Lifestyle On track(2021 10:30 AM EST) No Jill Farooq, BRYANNA Note: Meal timing: consider eating within [...] On track(2021 10:28 AM EST) Jill Colmenares, ZIPPER IRONER Note: Mindfulness/deep breathing practice to reduce cortisol -try for at least 10 minutes a day -try an ap such as headspace I have referred you to our psychologist to work on eating behaviors Health [employer] is sending hand-outs with exercises for mindful eating, The Pause/STOP and Urge surfing. Patient will review and try implementing some behaviors before we meet again. movement Lifestyle On track(2021 10:29 AM EST) Jill Colmenares, ZIPPER IRONER Note: Exercise goal is 150 min a week, just do some walking, even [address] to start Recommend resistance training 3 times a week -can use [employer] [place] Nutrition - 09/26/22 Lifestyle On track(2021 10:29 AM EST) No Hailee Martínez RD Note: Nutrition Goals: Continue exercise routine [...] documented as of this encounter Visit Diagnoses Diagnosis Vestibular dysfunction, unspecified laterality Dizziness Dizziness and giddiness documented in this encounter Care Teams Professor Of Social Work Relationship Specialty Start Date End Date Sree High APRN [address] [place] [address] PCP - General Family Medicine 12/19/22 documented as of this encounter
--- OUTSIDE RECORDS SUMMARY | 2024-06-01 06:52 | XMS_ITS | Encounter Summary ---
Author Organization [facility] Address [address] [place] [address] Care Team Providers Care Wood Panel Inspector Name Role Phone Gatito Yoder MD Primary Care Provider Unavail able Encounter Details Date Type Department Care Team (Late st Contact Info) Description 08/10/2008 Before PRISM Converted Visit (Maple) [facility] - Maple conversion [address] [place] [address] Franklyn Ford, DO [address] [facility] [address] [place] [address] Social History Tobacco Use Types Packs/Day Years Used Date Smoking Tobacco: Never Assessed Sex and Gender Information Value Date Recorded Sex Assigned at Not on file Gender Identity Not on file Sexual Orientation Not on file documented as of this encounter Plan of Treatment Not on file documented as of this encounter Procedures Procedure Name Priority Date/Time Associated Diagnosis Comments SURGICAL PATHOLOGY Routine 08/10/2008 0:00 EDT documented in this encounter Results * SURGICAL PATHOLOGY (08/10/2008 0:00 EDT) Pathology Report: SURGICAL PATHOLOGY REPORT ? Reports generated via electronic interface contain original data; ? however they are lacking the format of the original report. ? Caution should be taken when reading/interpreti ng unformatted reports. ? Name: ? AREVALO, LEANDRA ? Accession #: ? [id number] ? : ? 1980 (Age: 28) ??F ? Collect Date: ? 08/10/2008 ? Location: ? [facility] ? Receive Date: ? 08/10/2008 ? Provider: FRANKLYN FORD DO ? Copy to: GATITO YODER MD ? Final Pathologic Diagnosis: ? A. ?Terminal ileum, biopsy: ? 1. ?No pathologic features. ? B. ?Colon, ascending, biopsy: ? 1. ?No pathologic features. ? C. ?Colon, transverse, biopsy: ? 1. ?No pathologic features. ? D. ?Colon, descending, biopsy: ? 1. ?No pathologic features. ? E. ?Colon, sigmoid, biopsy: ? 1. ?No pathologic features. ? F. ?Rectum, biopsy: ? 1. ?No pathologic features. ? G. ?Gastric antrum, biopsy: ? 1. ?No pathologic features. ? Document reviewed and electronically signed by: ? Misael Mills MD ? Report ??Date: 08/12/2008 14:13 ? By the signature above, the attending physician certifies that he/she has ? personally conducted a gross and/or microscopic examination of the described ? specimens and rendered or confirmed the above diagnosis. ? Specimen(s) Received: ? Colonoscopy: ? A. ?Bx terminal ileum (#1) ? B. ? Bx ascending colon (#2) ? C. ? Bx transverse colon (#3) ? D. ? Bx descending colon (#4) ? E. ? Bx sigmoid colon (#5) ? F. ? Bx rectum (#6) ? EGD: ? G. ?Bx antrum (#7) ? Clinical History: ? Abnormal CT, diarrhea, abd pain, nausea ? Gross Description: ? Received in [employer] Yogae's solution labelled Arevalo and biopsy terminal ? ileum is a single 0.2 x 0.2 x 0.1 cm, pink-mcdonough, irregular, soft tissue. ? Submitted in toto in (A). ? Received in [employer] Yogae's solution labelled Arevalo and biopsy ascending colon ?? is a single 0.5 x 0.2 x 0.2 cm, pink-mcdonough, irregular, soft tissue. ??Submitted in toto in (B). ? Received in [employer]'s solution labelled Moe and biopsy transverse colon is a single 0.2 x 0.2 x 0.2 cm, pink-mcdonough, irregular, soft tissue. ??Submitted in toto in (C). ? Received in Tect[employer]'s solution labelled Moe and biopsy descending colon are two pink-mcdonough, irregular, soft tissues, 0.2 x 0.2 x 0.1 cm and 0.5 x 0.2 x ?? 0.1 cm. ??Submitted in toto in (D). ? Received in [employer] Yogae's solution labelled Arevalo and biopsy sigmoid is a ? single 0.3 x 0.2 x 0.2 cm, pink-mcdonough, irregular, soft tissue. ??Submitted in toto in (E). ? Received in [employer] Yogae's solution labelled Arevalo and biopsy rectum is a ? single 0.5 x 0.2 x 0.2 cm, pink-mcdonough, irregular, soft tissue. ??Submitted in toto in (F). ? Received in [employer]'s solution labelled Arevalo and biopsy antrum are two ?? pink-mcdonough irregular soft tissues, 0.3 x 0.2 x 0.2 cm and 0.4 x 0.3 x 0.2 cm. ? Submitted in toto in (G). ??/lgk ? End of Report ? [facility] 08/10/2008 08/10/2008 16: 45 EDT Franklyn Ford DO PATHOLOGY ORDER FUNMI Performing Organization Address City/State/[facility] Co de Phone Number [facility] [address] [place] [address] documented in this encounter Visit Diagnoses Not on filedocumented in this encounter Care Teams Wood Panel Inspector Relationship Specialty Start Date End Date Gatito Yoder MD PCP - General 05/09/09 09/10/13 documented as of this encounter
--- OUTSIDE RECORDS SUMMARY | 2024-06-01 06:52 | XMS_ITS | Encounter Summary ---
Author Organization [facility] Address [address] [place] [address] Care Team Providers Care Pallet Stone Positioner Name Role Phone Gatito Crawford MD Primary Care Provider Unavail able Encounter Details Date Type Department Care Team (Late st Contact Info) Description 01/31/2005 Results Only [facility] - Maple conversion [address] [place] [address] [place], [place] [id number] Social History Tobacco Use Types Packs/Day Years Used Date Smoking Tobacco: Never Assessed Sex and Gender Information Value Date Recorded Sex Assigned at Not on file Gender Identity Not on file Sexual Orientation Not on file documented as of this encounter Plan of Treatment Not on file documented as of this encounter Procedures Procedure Name Priority Date/Time Associated Diagnosis Comments CYTOPATHOLOGY Routine 01/31/2005 0:00 EST documented in this encounter Results * CYTOPATHOLOGY (01/31/2005 0:00 EST) Pathology Report: CYTOPATHOLOGY REPORT Reports generated via electronic interface contain original data; however they are lacking the format of the original report. Caution should be taken when reading/interpreti ng unformatted reports. Name: ? LEANDRA AREVALO ? Accession #: ? [id number] : ? 1980 (Age: 24) ??F ?Collect Date: ? 01/31/2005 Location: ? [facility] ? Receive Date: ? 02/02/2005 Provider: ?JESIKA SANTIAGO CNM Copy to: ? Specimen/Source: ?ThinPrep Pap Test, Cervix/Endocervix Last Menstrual Period: ? 01/23/05 Other: ? HPVA - HPV testing requested if ASC-US on the current ThinPrep Pap test. ? SPECIMEN ADEQUACY ? Satisfactory for Evaluation - transformation zone component present GENERAL CATEGORIZATION ? Negative for Intraepithelial Lesion or Malignancy ? Document reviewed and electronically signed by: ? LEO Jeter(ASCP) ? Report Date: ??02/06/2005 13:11 End of Report BUDDY SANTANA 01/31/2005 02/02/2005 Jesika Santiago CNM PATHOLOGY ORDERABLES [facility] [address] [place] [address] documented in this encounter Visit Diagnoses Not on filedocumented in this encounter Care Teams Pallet Stone Positioner Relationship Specialty Start Date End Date Gatito Crawford MD PCP - General 05/09/09 09/10/13 documented as of this encounter
--- OUTSIDE RECORDS SUMMARY | 2024-06-01 06:52 | XMS_ITS | Encounter Summary ---
Author Organization [facility] Address [facility] [place] [address] Care Team Providers Care Horticultural Farmer Name Role Phone Sree High APRN Primary Care Provider +1- [phone] Reason for Referral * Diagnostic Test (Routine) - Authorized Specialty Diagnoses / Procedures Referred By Chela doyle Referred To Contact Radiology Diagnoses PSC (primary sclerosing cholangitis) Procedures MRI Cholangiopancreatography wwo Contrast Sunshine Yen MD [facility] [place] [address] [place] [address] Referral ID Status Reason Start Date Expiration Date Visits Requested Visits Authorized [id number] Authorized Specialty Service Requested 03/24/2024 09/24/2025 1 1 Encounter Details Date Type Department Care Team ([facility] Contact Info) Description 03/24/2024 Orders [place] [address] Sunshine Yen MD [facility] [place] [address] PSC (primary sclerosing cholangitis) Social History Tobacco Use Types Packs/Day Years Used Date Smoking Tobacco: Never Smokeless Tobacco: Never Alcohol Use Standard Drinks/Week Comments Not Currently 0 (1 standard drink = 0.6 oz pur e alcohol) [facility] Inpatient Questions Answer Date Recorded Does Anyone Try to Keep You From Having Contact with Others or Doing Things Outside Your Home? no 03/18/2023 Feels Threatened by Someone no 0 11/2022 Feels Unsafe at Home or Work/School no 03/18/2023 Physical Signs of Abuse Present no 03/18/2023 Sex and Gender Information Value Date Recorded Sex Assigned at Female 10/05/2021 8:56 AM EST Gender Identity Not on file Sexual Orientation Straight 10/05/2021 8: 56 AM EST documented as of this encounter Plan of Treatment Scheduled Orders Name Type Priority Associated Diagnoses Order Schedule CBC (with Diff) Lab Routine PSC (primary sclerosing cholangitis) Expected: 03/24/2025 (Approximate), Expires: 09/23/2025 Comprehensive metabolic pane l (non-fasting) Lab Routine PSC (primary sclerosing cholangitis) Expected: 03/24/2025 (Approximate), Expires: 09/23/2025 Prothrombin Time Lab Routine PSC (primary sclerosing cholangitis) Expected: 03/24/2025 (Approximate), Expires: 09/23/2025 Carbohydrate Antigen 19-9 Lab Routine PSC (primary sclerosing cholangitis) Expected: 03/24/2025 (Approximate), Expires: 09/23/2025 MRI Cholangiopancreatography wwo Contrast Imaging Routine PSC (primary sclerosing cholangitis) Expected: 04/24/2024, Expires: 10/24/2024 Scheduled Procedures Name Priority Associated Diagnoses Date/Ti [...] Lifestyle On track(2021 10:29 AM EST) Jill Colmenares APRN Note: Follow up with sleep, do sleep study. Goal 7 hours of sleep nightly. Recommend consistent sleep and wake times, avoid electronics within one hour of sleep time stress management Lifestyle On track(2021 10:28 AM EST) Jill Colmenares APRN Note: Mindfulness/deep breathing practice to reduce cortisol -try for at least 10 minutes a day -try an ap such as headspace I have referred you to our psychologist to work on eating behaviors Health Picker Box Operator is sending hand-outs with exercises for mindful eating, The Pause/STOP and Urge surfing. Patient will review and try implementing some behaviors before we meet again. movement Lifestyle On track(2021 10:29 AM EST) Jill Colmenares APRN Note: Exercise goal is 150 min a [...] as of this encounter Visit Diagnoses Diagnosis PSC (primary sclerosing cholangitis) Cholangitis documented in this encounter Care Teams Horticultural Farmer Relationship Specialty Start Date End Date Sree High APRN [address] [place], [place] [address]Y [address] [place] [address] PCP - General Family Medicine 12/19/22 documented as of this encounter
--- OUTSIDE RECORDS SUMMARY | 2024-06-01 06:52 | XMS_ITS | Encounter Summary ---
Author Organization [facility] Address [facility] [place] [address] Care Team Providers Care Partner Name Role Phone Sree High APRN Primary Care Provider +1- [phone] Encounter Details Date Type Department Care Team (Latest Contact Info) Description 03/22/2024 Travel Social History Tobacco Use Types Packs/Day [...] Scheduled Procedures Name Priority Associated Diagnoses Date/Ti or COLONOSCOPY, DIAGNOSTIC (WRV U 3.26) Biliary stricture [...] On track(2021 10:28 AM EST) Jill Colmenares, TECHNICIAN SUPPORT ASSOCIATION Note: Mindfulness/deep breathing practice to reduce cortisol -try for at least 10 minutes a day -try an ap such as headspace I have referred you to our psychologist to work on eating behaviors Health Drainage Engineer is sending hand-outs with exercises for mindful eating, The Pause/STOP and Urge surfing. Patient will review and try implementing some behaviors before we meet again. movement Lifestyle On track(2021 10:29 AM EST) Jill Colmenares, TECHNICIAN SUPPORT ASSOCIATION Note: Exercise goal is 150 min a [...] on filedocumented in this encounter Care Teams Partner Relationship Specialty Start Date End Date Sree High, TECHNICIAN SUPPORT ASSOCIATION [address] [place] [address] [address] [facility] [address] [place] [address] PCP - General Family Medicine 12/19/22 documented as of this encounter
--- OUTSIDE RECORDS SUMMARY | 2024-06-01 06:52 | XMS_ITS | Encounter Summary ---
Author Organization [facility] Address [address] [place] [address] Care Team Providers Care Hvac Operations Technician Name Role Phone Gatito Crawford MD Primary Care Provider Unavail able Encounter Details Date Type Department Care Team (Late st Contact Info) Description 12/25/2000 Results Only [facility] - Maple conversion [address] [place] [address] Peg Hodges, [address] [place] [address] Social History Tobacco Use Types [...] Priority Date/Time Associated Diagnosis Comments CYTOPATHOLOGY Routine 12/25/2000 0:00 EST documented in this encounter Results * CYTOPATHOLOGY (12/25/2000 0:00 EST) Pathology Report: CYTOPATHOLOGY REPORT Reports generated via electronic interface contain original data; however they are lacking the format of the original report. Caution should be taken when reading/interpreti ng unformatted reports. Name: ? LEANDRA AREVALO ? Accession #: ? [id number] : ? 1980 (Age: 20) ??F ?Collect Date: ? 12/25/2000 Location: ? [facility] ? Receive Date: ? 12/27/2000 Provider: ?PEG HODGES CATCH BASIN CLEANER Copy to: ? Specimen/Source: ?ThinPrep Pap Test, Cervix/Endocervix Last Menstrual Period: ? 12/11/00 ? SPECIMEN ADEQUACY ? Satisfactory for evaluation. GENERAL CATEGORIZATION ? Within Normal Limits ? Document reviewed and electronically signed by: ? Yara Otto [facility](ASCP) ? Report Date: ??12/30/2000 08:09 End of Report BUDDY SANTANA 12/25/2000 12/27/2000 Peg Hodges CATCH BASIN CLEANER PATHOLOGY ORDERABLES [facility] [address] [place] [address] documented in this encounter Visit Diagnoses Not on filedocumented in this encounter Care Teams Hvac Operations Technician Relationship Specialty Start Date End Date Gatito Crawford MD PCP - General 05/09/09 09/10/13 documented as of this encounter
--- OUTSIDE RECORDS SUMMARY | 2024-06-01 06:52 | XMS_ITS | Encounter Summary ---
Author Organization [facility] Address [facility] [place] [address] Care Team Providers Care Saddle Stitching Machine Operator Name Role Phone Sree High APRN Primary Care Provider +1- [phone] Encounter Details Date Type Department Care Team (Latest Contact Info) Description 11/11/2023 Travel Social History Tobacco Use Types Packs/Day [...] Scheduled Procedures Name Priority Associated Diagnoses Date/Ti fl COLONOSCOPY, DIAGNOSTIC (WRV U 3.26) Biliary stricture [...] On track(2021 10:28 AM EST) Jill Colmenares, OPERATIONS AND MAINTENANCE TECHNICIAN Note: Mindfulness/deep breathing practice to reduce cortisol -try for at least 10 minutes a day -try an ap such as headspace I have referred you to our psychologist to work on eating behaviors Health Sealer Aircraft is sending hand-outs with exercises for mindful eating, The Pause/STOP and Urge surfing. Patient will review and try implementing some behaviors before we meet again. movement Lifestyle On track(2021 10:29 AM EST) Jill Colmenares, OPERATIONS AND MAINTENANCE TECHNICIAN Note: Exercise goal is 150 min a [...] on filedocumented in this encounter Care Teams Saddle Stitching Machine Operator Relationship Specialty Start Date End Date Sree High, OPERATIONS AND MAINTENANCE TECHNICIAN [address] [place] [address] [address] [facility] [address] [place] [address] PCP - General Family Medicine 12/19/22 documented as of this encounter
--- OUTSIDE RECORDS SUMMARY | 2024-06-01 06:52 | XMS_ITS | Encounter Summary ---
Author Organization [facility] Address [facility] [place] [address] Care Team Providers Care Vault Keeper Name Role Phone Sree High APRN Primary Care Provider +1- [phone] Encounter Details Date Type Department Care Team (Latest Contact Info) Description 04/02/2024 Travel Social History Tobacco Use Types Packs/Day [...] Scheduled Procedures Name Priority Associated Diagnoses Date/Ti mi COLONOSCOPY, DIAGNOSTIC (WRV U 3.26) Biliary stricture [...] On track(2021 10:28 AM EST) Jill Colmenares, FLOWER MACHINE OPERATOR Note: Mindfulness/deep breathing practice to reduce cortisol -try for at least 10 minutes a day -try an ap such as headspace I have referred you to our psychologist to work on eating behaviors Health Orchid Grower is sending hand-outs with exercises for mindful eating, The Pause/STOP and Urge surfing. Patient will review and try implementing some behaviors before we meet again. movement Lifestyle On track(2021 10:29 AM EST) Jill Colmenares, FLOWER MACHINE OPERATOR Note: Exercise goal is 150 min a [...] on filedocumented in this encounter Care Teams Vault Keeper Relationship Specialty Start Date End Date Sree High, FLOWER MACHINE OPERATOR [address] [place] [address] [address] [facility] [address] [place] [address] PCP - General Family Medicine 12/19/22 documented as of this encounter
--- OUTSIDE RECORDS SUMMARY | 2024-06-01 06:52 | XMS_ITS | Encounter Summary ---
Author Organization [facility] Address [address] [place] [address] Care Team Providers Care Sales Operations Associate Name Role Phone Gatito Crawford MD Primary Care Provider Unavail able Encounter Details Date Type Department Care Team (Late st Contact Info) Description 05/03/2010 Results Only [facility] Laboratory Services - [facility] ([facility]) [address] [place], [place] [address] Eduar Helm MD [address] [place] [address] Social History Tobacco Use Types Packs/Day Years Used Date Smoking Tobacco: Never Assessed Sex and Gender Information Value Date Recorded Sex Assigned at Not on file Gender Identity Not on file Sexual Orientation Not on file documented as of this encounter Plan of Treatment Not on file documented as of this encounter Procedures Procedure Name Priority Date/Time Associated Diagnosis Comments CYTOPATHOLOGY Routine 05/03/2010 0:00 EDT documented in this encounter Results * CYTOPATHOLOGY (05/03/2010 0:00 EDT) Pathology Report: CYTOPATHOLOGY REPORT ? Reports generated via electronic interface contain original data; ? however they are lacking the format of the original report. ? Caution should be taken when reading/interpreti ng unformatted reports. ? Name: ? LEANDRA AREVALO ? Accession #: ? [id number] ? : ? 1980 (Age: 30) ??F ?Collect Date: ? 05/03/2010 ? Location: ? [facility] ? Receive Date: ? 05/05/2010 ? Provider: ?EDUAR HELM MD ? Copy to: ? Specimen/Source: ?Pap Test, Cervix/Endocervix, ThinPrep Imaging System ? with manual evaluation ? Last Menstrual Period: ? 5/27/10 ? Other: ? HPVA - HPV testing requested if ASC-US on the current ThinPrep Pap test. ? SPECIMEN ADEQUACY ? Satisfactory for Evaluation ? - transformation zone component present ? GENERAL CATEGORIZATION ? Negative for Intraepithelial Lesion or Malignancy ? INTERPRETATION ? Reactive cellular changes associated with inflammation present (includes ?? repair). ? Document reviewed and electronically signed by: ? MILLA WALKER MD [facility] ? Report Date: ??05/11/2010 16:27 ? End of Report ? [facility] 05/03/2010 05/05/2010 Eduar Helm MD PATHOLOGY ORDERABLES [facility] [address] [place] [address] documented in this encounter Visit Diagnoses Not on filedocumented in this encounter Care Teams Sales Operations Associate Relationship Specialty Start Date End Date Gatito Crawford MD PCP - General 05/09/09 09/10/13 documented as of this encounter
--- OUTSIDE RECORDS SUMMARY | 2024-06-01 06:52 | XMS_ITS | Encounter Summary ---
Author Organization [facility] Address [address] [place] [address] Care Team Providers Care Surgical Garment Assembler Name Role Phone Gatito Crawford MD Primary Care Provider Unavail able Encounter Details Date Type Department Care Team (Late st Contact Info) Description 11/20/[address] [facility] - Maple conversion [address] [place] [address] Jesika [place], [place] [id number] Social History Tobacco Use Types Packs/Day Years Used Date Smoking Tobacco: Never Assessed Sex and Gender Information Value Date Recorded Sex Assigned at Not on file Gender Identity Not on file Sexual Orientation Not on file documented as of this encounter Plan of Treatment Not on file documented as of this encounter Procedures Procedure Name Priority Date/Time Associated Diagnosis Comments CYTOPATHOLOGY Routine 11/20/2001 0:00 EST documented in this encounter Results * CYTOPATHOLOGY (11/20/2001 0:00 EST) Pathology Report: CYTOPATHOLOGY REPORT Reports generated via electronic interface contain original data; however they are lacking the format of the original report. Caution should be taken when reading/interpreti ng unformatted reports. Name: ? LEANDRA AREVALO ? Accession #: ? [id number] : ? 1980 (Age: 21) ??F ?Collect Date: ? 11/20/2001 Location: ? [facility] ? Receive Date: ? 11/24/2001 Provider: ?JESIKA PAMELA PIMENTELM Copy to: ? Specimen/Source: ?ThinPrep Pap Test, Cervix/Endocervix Last Menstrual Period: ? 12/30/00 Menstrual/Pregnanc y Status: ? Post ? SPECIMEN ADEQUACY ? Satisfactory for Evaluation - transformation zone component present GENERAL CATEGORIZATION ? Negative for Intraepithelial Lesion or Malignancy ? Document reviewed and electronically signed by: ? Olimpia Copeland, ??SCT(ASCP) ? Report Date: ??11/25/2001 14:06 End of Report BUDDY SANTANA 11/20/2001 11/24/2001 Jesika Villafuerte CNM PATHOLOGY ORDERABLES [facility] [address] [place] [address] documented in this encounter Visit Diagnoses Not on filedocumented in this encounter Care Teams Surgical Garment Assembler Relationship Specialty Start Date End Date Gatito Crawford MD PCP - General 05/09/09 09/10/13 documented as of this encounter
--- OUTSIDE RECORDS SUMMARY | 2024-06-01 06:52 | XMS_ITS | Encounter Summary ---
Author Organization [facility] Address [facility] [place] [address] Care Team Providers Care Formulation Technician Name Role Phone Sree High APRN Primary Care Provider +1- [phone] Encounter Details Date Type Department Care Team (Latest Contact Info) Description 10/24/2023 Travel Social History Tobacco Use Types Packs/Day [...] Scheduled Procedures Name Priority Associated Diagnoses Date/Ti va COLONOSCOPY, DIAGNOSTIC (WRV U 3.26) Biliary stricture [...] On track(2021 10:28 AM EST) Jill Colmenares, BARK SPUDDER Note: Mindfulness/deep breathing practice to reduce cortisol -try for at least 10 minutes a day -try an ap such as headspace I have referred you to our psychologist to work on eating behaviors Health Pc Installation Engineer is sending hand-outs with exercises for mindful eating, The Pause/STOP and Urge surfing. Patient will review and try implementing some behaviors before we meet again. movement Lifestyle On track(2021 10:29 AM EST) Jill Colmenares, BARK SPUDDER Note: Exercise goal is 150 min a [...] on filedocumented in this encounter Care Teams Formulation Technician Relationship Specialty Start Date End Date Sree High, BARK SPUDDER [address] [place] [address] [address] [facility] [address] [place] [address] PCP - General Family Medicine 12/19/22 documented as of this encounter
--- OUTSIDE RECORDS SUMMARY | 2024-06-01 06:52 | XMS_ITS | Encounter Summary ---
Author Organization [facility] Address [address] [place] [address] Care Team Providers Care Api Developer Name Role Phone Unavailable Primary Care Provider Unavailabl e Encounter Details Date Type Department Care Team (Late st Contact Info) Description 05/02/2009 Orders Only [facility] Laboratory Services - [facility] ([facility]) [address] [place], [place] [address] Peg Hodges, [facility] [address] [place] [address] [place] [address] Social History Tobacco Use Types [...] Priority Date/Time Associated Diagnosis Comments CYTOPATHOLOGY Routine 05/02/2009 0:00 EDT documented in this encounter Results * CYTOPATHOLOGY (05/02/2009 0:00 EDT) Pathology Report: CYTOPATHOLOGY REPORT ? Reports generated via electronic interface contain original data; ? however they are lacking the format of the original report. ? Caution should be taken when reading/interpreti ng unformatted reports. ? Name: ? MICKEY, LEANDRA ? Accession #: ? [id number] ? : ? 1980 (Age: 29) ??F ?Collect Date: ? 05/02/2009 ? Location: ? [facility] ? Receive Date: ? 05/03/2009 ? Provider: ?PEG HIRA DERMATOLOGY NURSE PRACTITIONER ? Copy to: ? Specimen/Source: ?Pap Test, Cervix/Endocervix, ThinPrep Imaging System ? with manual evaluation ? Last Menstrual Period: ? 6/8/09 ? Hormonal/Contracep tive Status: ? Tubal ligation ? Other: ? HPVA - HPV testing requested if ASC-US on the current ThinPrep Pap test. ? SPECIMEN ADEQUACY ? Satisfactory for Evaluation ? - transformation zone component present ? GENERAL CATEGORIZATION ? Epithelial Cell Abnormality ? INTERPRETATION ? Squamous Cell Abnormality - Low grade squamous intraepithelial lesion ? (LSIL). ? EDUCATIONAL NOTES/RECOMMENDATI ONS ? [facility] recommends following the 2006 Consensus Guidelines for the Management of Women with Abnormal Cervical Cancer Screening Tests (JLGTD, ? 2007;11(4):201-222 ). ??Consensus guidelines are available online at ? www.ASCCP.org. ? Document reviewed and electronically signed by: ? ANYAWYN ANNMAN MD [facility] ? Report Date: ??05/06/2009 18:35 ? End of Report ? BUDDY SANTANA 05/02/2009 05/03/2009 Peg Hodges DERMATOLOGY NURSE PRACTITIONER PATHOLOGY ORDERABLES [facility] [address] [place] [address] documented in this encounter Visit Diagnoses Not on filedocumented in this encounter
--- OUTSIDE RECORDS SUMMARY | 2024-06-01 06:52 | XMS_ITS | Encounter Summary ---
Author Organization [facility] Address [address] [place] [address] Care Team Providers Care Combined Rail Operator Name Role Phone Gatito Crawford MD Primary Care Provider Unavail able Encounter Details Date Type Department Care Team (Late st Contact Info) Description 06/05/2006 Results Only [facility] - Maple conversion [address] [place] [address] Hector Ford MD [address] [place] [id number] Social History Tobacco Use Types Packs/Day Years Used Date Smoking Tobacco: Never Assessed Sex and Gender Information Value Date Recorded Sex Assigned at Not on file Gender Identity Not on file Sexual Orientation Not on file documented as of this encounter Plan of Treatment Not on file documented as of this encounter Procedures Procedure Name Priority Date/Time Associated Diagnosis Comments SURGICAL PATHOLOGY Routine 06/05/2006 0:00 EDT documented in this encounter Results * SURGICAL PATHOLOGY (06/05/2006 0:00 EDT) Pathology Report: SURGICAL PATHOLOGY REPORT Reports generated via electronic interface contain original data; however they are lacking the format of the original report. Caution should be taken when reading/interpreti ng unformatted reports. Name: ? LEANDRA AREVALO ? Accession #: ? [id number] ? : ? 1980 (Age: 26) ??F ? Collect Date: ? 06/05/2006 ? Location: ? [facility] ? Receive Date: ? 06/06/2006 ? Provider: HECTOR FORD MD Copy to: OTONIEL MCDONALD MD ? Final Pathologic Diagnosis: ? Appendix, appendectomy: - ??Acute suppurative appendicitis and periappendicitis. Document reviewed and electronically signed by: Cristina Brown MD Report ??Date: 06/11/2006 15:59 By the signature above, the attending physician certifies that he/she has personally conducted a gross and/or microscopic examination of the described specimens and rendered or confirmed the above diagnosis. Specimen(s) Received: ? Appendix Clinical History: ? Acute abdomen, probable appendicitis Gross Description: ? Received in formalin labelled Arevalo and appendix is a 5.4 x 0.9 cm vermiform appendix with moderate attached mesoappendix. ??The serosa is white-mcdonough with diffuse overlying exudate. ??The lumen is devoid of contents. ??The mucosa is mcdonough-brown yet stippled yellow within the distal tip. ??The intact wall averages 0.1 cm. ??No discrete perforations are identified, however, a less than 0.1 cm in greatest dimension fibrous band-like structure is identified within the distal tip and extends to the mesoappendix. ??A sales representative education courses section of the distal tip, cross section and proximal margin (inked and en face) is submitted in one cassette. ??(Victor M Fischer)/[facility] [place] End of Report B[facility] SANT[facility] 06/05/2006 06/06/2006 9:5 6 EDT Hector Ford MD PATHOLOGY ORDERABLE S [facility] [address] [place] [address] documented in this encounter Visit Diagnoses Not on filedocumented in this encounter Care Teams Combined Rail Operator Relationship Specialty Start Date End Date Gatito Crawford MD PCP - General 05/09/09 09/10/13 documented as of this encounter
--- OUTSIDE RECORDS SUMMARY | 2024-06-01 06:52 | XMS_ITS | Encounter Summary ---
Author Organization [facility] Address [address] [place] [address] Care Team Providers Care Shore Man Name Role Phone Unavailable Primary Care Provider Unavailabl e Encounter Details Date Type Department Care Team (Late st Contact Info) Description 04/23/2001 6:10 EDT Hospital Encounter [facility] - Other [address] [place] [address] Maagn Harris [address] [place], [place] [address] Unknown, Provider, Social History Tobacco Use Types Packs/Day Years Used Date Smoking Tobacco: Never Assessed Interpersonal Safety Answer Date Record ed Physically Hurt Never 06/19/2020 Verbally Threaten Not on file 06/19/2020 Sex and Gender Information Value Date Recorded Sex Assigned at Not on file Gender Identity Not on file Sexual Orientation Not on file documented as of this encounter Plan of Treatment Pending Results Name Type Priority Associated Diagnoses Date /Time CYTOPATHOLOGY Pathology Routine 12/08/2009 0:00 EST CYTOPATHOLOGY Pathology Routine 12/08/2009 0:00 EST Scheduled Orders Name Type Priority Associated Diagnoses Orde r Schedule CYTOPATHOLOGY Pathology Routine For medicat ions that can be administered at any time during the hospitalization for visit such as immunizations. for 1 Occurrences starting 12/09/2009 CYTOPATHOLOGY Pathology Routine For medicat ions that can be administered at any time during the hospitalization for visit such as immunizations. for 1 Occurrences starting 12/09/2009 documented as of this encounter Procedures Procedure Name Priority Date/Time Associated Diagnosis Comments CYTOPATHOLOGY Routine 12/08/2009 0:00 EST documented in this encounter Results * CYTOPATHOLOGY (12/08/2009 0:00 EST) Pathology Report: CYTOPATHOLOGY REPORT ? Reports generated via electronic interface contain original data; ? however they are lacking the format of the original report. ? Caution should be taken when reading/interpreti ng unformatted reports. ? Name: ? LEANDRA AREVALO ? Accession #: ? [id number] ? : ? 1980 (Age: 29) ??F ?Collect Date: ? 12/08/2009 ? Location: ? [facility] ? Receive Date: ? 12/09/2009 ? Provider: ?EDUAR D ALICJA MD ? Copy to: ? Specimen/Source: ?Pap Test, Cervix/Endocervix, ThinPrep Imaging System ? with manual evaluation ? Last Menstrual Period: ? 1/11/10 ? Previous Gynecologic Pathology: ? LSIL: 6/15/09 ? Treatment History: ? Colposcopy: 7/9/09 Hx normal ? SPECIMEN ADEQUACY ? Satisfactory for Evaluation ? - transformation zone component present ? GENERAL CATEGORIZATION ? Epithelial Cell Abnormality ? INTERPRETATION ? Squamous Cell Abnormality - Low grade squamous intraepithelial lesion ? (LSIL). ? EDUCATIONAL NOTES/RECOMMENDATI ONS ? [facility] recommends following the 2006 Consensus Guidelines for the Management of Women with Abnormal Cervical Cancer Screening Tests (JLGTD, ? 2007;11(4):201-222 ). ??Consensus guidelines are available online at ? www.ASCCP.org. ? Document reviewed and electronically signed by: ? ROCIO MOUNT MD ? Report Date: ??12/14/2009 10:23 ? End of Report ? BUDDY SANTANA 12/08/2009 12/09/2009 Eduar Bernstein MD PATHOLOGY ORDERABLES [facility] [address] [place] [address] documented in this encounter Visit Diagnoses Not on filedocumented in this encounter
--- OUTSIDE RECORDS SUMMARY | 2024-06-01 06:52 | XMS_ITS | Encounter Summary ---
Author Organization [facility] Address [address] [place] [address] Care Team Providers Care Ultrasound Applications Specialist Name Role Phone Gatito Crawford MD Primary Care Provider Unavail able Encounter Details Date Type Department Care Team (Late st Contact Info) Description 02/01/2004 Results Only [facility] - Maple conversion [address] [place] [address] [address] [place], [place] [id number] Social History Tobacco Use Types Packs/Day Years Used Date Smoking Tobacco: Never Assessed Sex and Gender Information Value Date Recorded Sex Assigned at Not on file Gender Identity Not on file Sexual Orientation Not on file documented as of this encounter Plan of Treatment Not on file documented as of this encounter Procedures Procedure Name Priority Date/Time Associated Diagnosis Comments CYTOPATHOLOGY Routine 02/01/2004 0:00 EST documented in this encounter Results * CYTOPATHOLOGY (02/01/2004 0:00 EST) Pathology Report: CYTOPATHOLOGY REPORT Reports generated via electronic interface contain original data; however they are lacking the format of the original report. Caution should be taken when reading/interpreti ng unformatted reports. Name: ? LEANDRA AREVALO ? Accession #: ? [id number] : ? 1980 (Age: 23) ??F ?Collect Date: ? 02/01/2004 Location: ? [facility] ? Receive Date: ? 02/03/2004 Provider: ?MAGAN GASTON CNM Copy to: ? Specimen/Source: ?ThinPrep Pap Test, Cervix/Endocervix Last Menstrual Period: ? 12/01/03 Menstrual/Pregnanc y Status: ? SPECIMEN ADEQUACY ? Satisfactory for Evaluation - transformation zone component present GENERAL CATEGORIZATION ? Negative for Intraepithelial Lesion or Malignancy ? Document reviewed and electronically signed by: ? Jesika Santa, SCT(ASCP) ? Report Date: ??02/09/2004 10:41 End of Report [facility] 02/01/2004 02/03/2004 Magan Gaston CNM PATHOLOGY ORDERABLES [facility] [address] [place] [address] documented in this encounter Visit Diagnoses Not on filedocumented in this encounter Care Teams Ultrasound Applications Specialist Relationship Specialty Start Date End Date Gatito Crawford MD PCP - General 05/09/09 09/10/13 documented as of this encounter
--- OUTSIDE RECORDS SUMMARY | 2024-06-01 06:52 | XMS_ITS | Encounter Summary ---
Author Organization [facility] Address [facility] [place] [address] Care Team Providers Care Animal Biologist Name Role Phone Sree High APRN Primary Care Provider +1- [phone] Encounter Details Date Type Department Care Team (Latest Contact Info) Description 01/10/2024 Travel Social History Tobacco Use Types Packs/Day [...] Scheduled Procedures Name Priority Associated Diagnoses Date/Ti ar COLONOSCOPY, DIAGNOSTIC (WRV U 3.26) Biliary stricture [...] On track(2021 10:28 AM EST) Jill Colmenares, ELECTRICAL CHECKOUT MECHANIC Note: Mindfulness/deep breathing practice to reduce cortisol -try for at least 10 minutes a day -try an ap such as headspace I have referred you to our psychologist to work on eating behaviors Health Agricultural Equipment Salesperson is sending hand-outs with exercises for mindful eating, The Pause/STOP and Urge surfing. Patient will review and try implementing some behaviors before we meet again. movement Lifestyle On track(2021 10:29 AM EST) Jill Colmenares, ELECTRICAL CHECKOUT MECHANIC Note: Exercise goal is 150 min a [...] on filedocumented in this encounter Care Teams Animal Biologist Relationship Specialty Start Date End Date Sree High, ELECTRICAL CHECKOUT MECHANIC [address] [place] [address] [address] [facility] [address] [place] [address] PCP - General Family Medicine 12/19/22 documented as of this encounter
--- OUTSIDE RECORDS SUMMARY | 2024-06-01 06:52 | XMS_ITS | Encounter Summary ---
Author Organization [facility] Address [address] [place] [address] Care Team Providers Care Plodding Operator Name Role Phone Gatito Crawford MD Primary Care Provider Unavail able Encounter Details Date Type Department Care Team (Late st Contact Info) Description 11/07/2010 Results Only [facility] [phone] Gio Rodriguez MD [address] [place] [address] Social History Tobacco Use Types Packs/Day Years Used Date Smoking Tobacco: Never Assessed Sex and Gender Information Value Date Recorded Sex Assigned at Not on file Gender Identity Not on file Sexual Orientation Not on file documented as of this encounter Plan of Treatment Not on file documented as of this encounter Procedures Procedure Name Priority Date/Time Associated Diagnosis Comments CYTOPATHOLOGY Routine 11/07/2010 0:00 EST documented in this encounter Results * CYTOPATHOLOGY (11/07/2010 0:00 EST) Pathology Report: CYTOPATHOLOGY REPORT ? Reports generated via electronic interface contain original data; ? however they are lacking the format of the original report. ? Caution should be taken when reading/interpreti ng unformatted reports. ? Name: ? MAGDIEL, LEANDRA ? Accession #: ? [id number] ? : ? 1980 (Age: 30) ??F ?Collect Date: ? 11/07/2010 ? Location: ? [facility] ? Receive Date: ? 11/08/2010 ? Provider: GIO RODRIGUEZ MD ? Copy to: ? Final Report ? SPECIMEN ADEQUACY ? Satisfactory for Evaluation ? - transformation zone component present ? GENERAL CATEGORIZATION ? Negative for Intraepithelial Lesion or Malignancy ? INTERPRETATION ? Reactive cellular changes associated with inflammation present (includes ?? repair). ? Previous Gynecologic Pathology: LSIL: //10, 6/15/09 ? Other: Additional clinical information: last pap 6/16/10 negative ? Specimen/Source: ??Pap Test, Cervix/Endocervix, ThinPrep Imaging System with ? manual evaluation ? Document reviewed and electronically signed by: ? AMBROSIO C FLOWERS MD ? Report ??Date: 11/21/2010 10:28 ? HPV with Pap Test ? Date Ordered: ? 11/20/2010 ? Status: ?? Signed Out ?Date Complete: ? 11/24/2010 ? By: ??System Interface ? Date Reported: ? 11/24/2010 ? Interpretation ? RESULT: Negative for HPV types 16, 18, 31, 33, 35, 39, 45, 51, 52, ? 56, 58, 59, and 68. ? Comments ? Document reviewed and electronically signed by: ? System Interface ? Report date: 11/24/2010 ? By the signature above, the attending physician certifies that he/she has ? personally conducted a gross and/or microscopic examination of the described ? specimens and rendered or confirmed the above diagnosis. ? End of Report ? [facility] 11/07/2010 11/08/2010 Gio Rodriguez MD PATHOLOGY ORDERABLES [facility] [address] [place] [address] documented in this encounter Visit Diagnoses Not on filedocumented in this encounter Care Teams Plodding Operator Relationship Specialty Start Date End Date Gatito Crawford MD PCP - General 05/09/09 09/10/13 documented as of this encounter
--- OUTSIDE RECORDS SUMMARY | 2024-06-01 06:52 | XMS_ITS | Encounter Summary ---
Author Organization [facility] Address [address] [place] [address] Care Team Providers Care Direct Marketing Representative Name Role Phone Gatito Crawford MD Primary Care Provider Unavail able Encounter Details Date Type Department Care Team (Late st Contact Info) Description 12/01/2002 Results Only [facility] - Maple conversion [address] [place] [address] Peg Hodges, [address] [place] [address] Social History Tobacco Use Types [...] Priority Date/Time Associated Diagnosis Comments CYTOPATHOLOGY Routine 12/01/2002 0:00 EST documented in this encounter Results * CYTOPATHOLOGY (12/01/2002 0:00 EST) Pathology Report: CYTOPATHOLOGY REPORT Reports generated via electronic interface contain original data; however they are lacking the format of the original report. Caution should be taken when reading/interpreti ng unformatted reports. Name: ? LEANDRA AREVALO ? Accession #: ? [id number] : ? 1980 (Age: 22) ??F ?Collect Date: ? 12/01/2002 Location: ? [facility] ? Receive Date: ? 12/03/2002 Provider: ?PEG HODGES MAGNETIC PROSPECTING SUPERVISOR Copy to: ? Specimen/Source: ?ThinPrep Pap Test, Cervix/Endocervix Last Menstrual Period: ? 11/29/01 ? SPECIMEN ADEQUACY ? Satisfactory for Evaluation - transformation zone component present - scant squamous epithelial component secondary to excessive blood GENERAL CATEGORIZATION ? Negative for Intraepithelial Lesion or Malignancy ? Document reviewed and electronically signed by: ? LEO Jeter(ASCP) ? Report Date: ??12/04/2002 09:37 End of Report BUDDY SANT[facility] 12/01/2002 12/03/2002 Peg Hodges MAGNETIC PROSPECTING SUPERVISOR PATHOLOGY ORDERABLES [facility] [address] [place] [address] documented in this encounter Visit Diagnoses Not on filedocumented in this encounter Care Teams Direct Marketing Representative Relationship Specialty Start Date End Date Gaitto Crawford MD PCP - General 05/09/09 09/10/13 documented as of this encounter
--- OUTSIDE RECORDS SUMMARY | 2024-06-01 06:52 | XMS_ITS | Encounter Summary ---
Author Organization [facility] Address [facility] [place] [address] Care Team Providers Care Truss Puller Helper Name Role Phone Sree High APRN Primary Care Provider +1- [phone] Reason for Referral * Diagnostic Test (Routine) - Closed Specialty Diagnoses / Procedures Referred By Contac t Referred To Contact Radiology Diagnoses Biliary stricture Procedures MRI Cholangiopancreatography wwo Contrast Sunshine Yen [place] [facility] [place] [address] [place] [address] Referral ID Status Reason Start Date Expiration Date V isits Requested Visits Authorized [id number] Closed Specialty Service Requested 07/23/2023 01/20/2025 1 1 Reason for Visit * Diagnostic Test (Routine) - Closed Specialty Diagnoses / Procedures Referred By Contac t Referred To Contact Radiology Diagnoses Biliary stricture Procedures MRI Cholangiopancreatography wwo Contrast Sunshine Yen MD [facility] [place] [address] [place] [address] Referral ID Status Reason Start Date Expiration Date V isits Requested Visits Authorized [id number] Closed Specialty Service Requested 07/23/2023 01/20/2025 1 1 Encounter Details Date Type Department Care Team (Latest Contact Info) Description 03/23/2024 12:51 PM EDT - 03/23/2024 11:59 PM EDT Hospital Encounter MRI [facility] [place] [address] Sunshine Yen MD [facility] [place] [address] Biliary stricture Discharge Disposition: Home Social History Tobacco Use Types Packs/Day Years Used Date Smoking Tobacco: Never Smokeless Tobacco: Never Alcohol Use Standard Drinks/Week Comments Not Currently 0 (1 standard drink = 0.6 oz pur e alcohol) [facility] Inpatient Questions Answer Date Recorded Does Anyone [...] AM EST documented as of this encounter Medications at Time of Discharge [...] 2 04/11/2016 documented as of this encounter Plan of Treatment Scheduled Procedures Name Priority Associated Diagnoses Date/Ti me COLONOSCOPY, DIAGNOSTIC (WRV U 3.26) Biliary stricture Screening for colon cancer documented as of this encounter Goals Goal Patient Goal Type Associated Problems Recent Progress Patient-Stated? Author meal timing/food choices Lifestyle On track(2021 10:30 AM EST) Jill Colmenares APRN Note: Meal timing: consider eating within [...] psychologist to work on eating behaviors Health Naval Aircrewman Helicopter is sending hand-outs with exercises for mindful eating, The Pause/STOP and Urge surfing. Patient will review and try implementing some behaviors before we meet again. movement Lifestyle On track(2021 10:29 AM EST) No Jill Farooq APRN Note: Exercise goal is 150 min [...] Procedure Name Priority Date/Time Associated Diagnosis Comments MRI CHOLANGIOPANCREATOGRAPHY WWO CONTRAST Routine 03/23/2024 2:39 PM EDT Biliary stricture documented in this encounter Results * MRI Cholangiopancreatography wwo Contrast (03/23/2024 2:39 PM EDT) WORKSTATION ID [id number] DH RAD Anatomical Region Laterality Modality Magnetic Resonan ce Impressions 03/24/2024 8:56 AM EDT 1. ??Stable central intrahepatic stricturing/dilation. 2. ??No suspicious hepatic lesion. Thank you for letting us participate in the care of this patient. ??If you are a health care provider and have any questions regarding this report, please contact the number below. ??For patients who have questions please contact the health care team assistant that requested your imaging first. ? Electronically signed by: CARLEEN GARCIA MD, [facility] ([phone]), at 03/24/2024 8:56 AM Narrative 03/24/2024 8:56 AM EDT EXAMINATION: MRI CHOLANGIOPANCREATOGRAPHY WWO CONTRAST ? CLINICAL HISTORY: f/u biliary stricture, ?PSC K83.1, Obstruction of bile duct TECHNIQUE: MRCP performed prior to and following the intravenous administration of 12 mL Dotarem. 3-D MIPS were created. COMPARISON: MRI 03/19/2023 FINDINGS: Liver: Normal size and signal intensity. No lesions. Bile ducts: Unchanged strictures of the central intrahepatic bile ducts at the confluence with poststenotic dilation. No new dominant stricture. The common hepatic duct and common bile duct are normal in caliber. No intraluminal filling defects. Gallbladder: Surgically absent. Pancreas: No cystic or solid mass. Pancreatic duct: Normal caliber and configuration. Spleen: Normal size, no lesions. Adrenal glands: Normal. Kidneys: Small right lower pole renal cyst. Symmetric renal enhancement. No hydronephrosis. Bowel and mesentery: Non-dilated. No inflammatory changes. Trace physiologic free fluid in the pelvis. Lymph nodes: No adenopathy. Osseous structures: No focal marrow signal abnormality. Procedure Note Carleen Garcia MD - 03/24/2024 EXAMINATION: MRI CHOLANGIOPANCREATOGRAPHY WWO CONTRAST CLINICAL HISTORY: f/u biliary stricture, ?PSC K83.1, Obstruction of bile duct TECHNIQUE: MRCP performed prior to and following the intravenousadministration of 12 mL Dotarem. 3-D MIPS were created. COMPARISON: MRI 03/19/2023 FINDINGS: Liver: Normal size and signal intensity. No lesions. Bile ducts: Unchanged strictures of the central intrahepatic bile ducts atthe confluence with poststenotic dilation. No new dominant stricture. Thecommon hepatic duct and common bile duct are normal in caliber. No intraluminalfilling defects. Gallbladder: Surgically absent. Pancreas: No cystic or solid mass. Pancreatic duct: Normal caliber and configuration. Spleen: Normal size, no lesions. Adrenal glands: Normal. Kidneys: Small right lower pole renal cyst. Symmetric renal enhancement.No hydronephrosis. Bowel and mesentery: Non-dilated. No inflammatory changes. Tracephysiologic free fluid in the pelvis. Lymph nodes: No adenopathy. Osseous structures: No focal marrow signal abnormality. IMPRESSION 1. Stable central intrahepatic stricturing/dilation. 2. No suspicious hepatic lesion. Thank you for letting us participate in the care of this patient. If youare a health care provider and have any questions regarding this report,please contact the number below. For patients who have questions please contactthe health care team assistant that requested your imaging first. Electronically signed by: CARLEEN GARCIA MD, [facility]([phone]), at 03/24/2024 8:56 AM Sunshine Yen MD IMG MRI ORDERABLES documented in this encounter Visit Diagnoses Diagnosis Biliary stricture Obstruction of bile duct documented in this encounter Administered Medications Inactive Administered Medications - up to 3 most recent administrations Medication Order MAR Action Action Date Dose Rate Site gadoterate meglumine (Dotarem) (0.5 mMol/mL) injection solution 0-100 mL 0-100 mL, Intravenous, ONCE PRN, 1 dose, Starting on Sat03/23/24 at 1352, Until Sat03/23/24 at 1423, Per Protocol, Radiology Contrast, Routine Given 03/23/2024 2:23 PM EDT 12 mLs documented in this encounter Care Teams Truss Puller Helper Relationship Specialty Start Date End Date Sree High, BRYANNA [address] [facility] [address] [place] [address] PCP - General Family Medicine 12/19/22 documented as of this encounter
--- OUTSIDE RECORDS SUMMARY | 2024-06-01 06:52 | XMS_ITS | Encounter Summary ---
Author Organization [facility] Address [facility] [place] [address] Care Team Providers Care Milling Machine Tender Name Role Phone Sree High APRN Primary Care Provider +1- [phone] Encounter Details Date Type Department Care Team (Latest Contact Info) Description 05/22/2024 Travel Social History Tobacco Use Types Packs/Day [...] Scheduled Procedures Name Priority Associated Diagnoses Date/Ti nc COLONOSCOPY, DIAGNOSTIC (WRV U 3.26) Biliary stricture [...] On track(2021 10:28 AM EST) Jill Colmenares, DIE DEVELOPER Note: Mindfulness/deep breathing practice to reduce cortisol -try for at least 10 minutes a day -try an ap such as headspace I have referred you to our psychologist to work on eating behaviors Health Senior Inspector is sending hand-outs with exercises for mindful eating, The Pause/STOP and Urge surfing. Patient will review and try implementing some behaviors before we meet again. movement Lifestyle On track(2021 10:29 AM EST) Jill Colmenares, DIE DEVELOPER Note: Exercise goal is 150 min a [...] on filedocumented in this encounter Care Teams Milling Machine Tender Relationship Specialty Start Date End Date Sree High, DIE DEVELOPER [address] [place] [address] [address] [facility] [address] [place] [address] PCP - General Family Medicine 12/19/22 documented as of this encounter
--- OUTSIDE RECORDS SUMMARY | 2024-06-01 06:52 | XMS_ITS | Encounter Summary ---
Author Organization [facility] Address [facility] [place] [address] Care Team Providers Care Workcell Operator Name Role Phone Sree High APRN Primary Care Provider +1- [phone] Encounter Details Date Type Department Care Team (Late st Contact Info) Description 10/25/2023 Orders [place] [address] Anni Varela POTTER OR CERAMIC ARTIST [facility] [place] [address] S/P gastric bypass Social History Tobacco Use Types Packs/Day Years Used Date Smoking Tobacco: Never Smokeless Tobacco: Never Alcohol Use Standard Drinks/Week Comments Not Currently 0 (1 standard drink = 0.6 oz pur e alcohol) [facility] Inpatient Questions Answer Date Recorded Does [...] On track(2021 10:28 AM EST) Jill Colmenares, BRYANNA Note: Mindfulness/deep breathing practice to reduce cortisol -try for at least 10 minutes a day -try an ap such as headspace I have referred you to our psychologist to work on eating behaviors Health Electric Wheelchair Repairer is sending hand-outs with exercises for mindful eating, The Pause/STOP and Urge surfing. Patient will review and try implementing some behaviors before we meet again. movement Lifestyle On track(2021 10:29 AM EST) Jill Colmenares, POTTER OR CERAMIC ARTIST Note: Exercise goal is 150 min a [...] meal times documented as of this encounter Results * (ABNORMAL) Vitamin B12 (01/10/2024 12:06 PM EST) Vitamin B-12 1,314(H) 232 - 1,245 pg/mL [facility] Blood 01/10/2024 12:0 6 PM EST 01/10/2024 12:17 PM EST Narrative Resulting Agency Comment Spec In Lab Anni E Nichole GOULD CHEMISTRY ORDERABL ES [facility] [place] [address] documented in this encounter Visit Diagnoses Diagnosis S/P gastric bypass Bariatric surgery status documented in this encounter Care Teams Workcell Operator Relationship Specialty Start Date End Date Sree High APRN [address] [place] [address] PCP - General Family Medicine 12/19/22 documented as of this encounter
--- OUTSIDE RECORDS SUMMARY | 2024-06-01 06:52 | XMS_ITS | Encounter Summary ---
Author Organization [facility] [place] [address] Care Team Providers Care Catering Administrative Assistant Name Role Phone Sree High APRN Primary Care Provider +1- [phone] Reason for Visit * Reason Onset Date Comments Appointment 12/27/2023 MRI Encounter Details Date Type Department Care Team ([facility] st Contact Info) Description 12/27/2023 [place] [id number] Maximo Solis, RN Appointment (MRI) Social History Tobacco Use Types Packs/Day Years Used Date Smoking Tobacco: Never Smokeless Tobacco: Never Alcohol Use Standard Drinks/Week Comments Not Currently 0 (1 standard drink = 0.6 oz pur e alcohol) [facility] Inpatient Questions Answer Date Recorded Does [...] as of this encounter Miscellaneous Notes * Telephone Encounter - Maximo Solis, RN - 12/27/2023 12:30 PM EST Call to schedule MRCP ordered 07/23/2023. No answer, voice mail message left asking for a return call to [phone] to schedule an appointment. documented in this encounter Plan of Treatment [...] psychologist to work on eating behaviors Health Shrink Pit Supervisor is sending hand-outs with exercises for mindful [...] on filedocumented in this encounter Care Teams Catering Administrative Assistant Relationship Specialty Start Date End Date Sree High, BRYANNA [address] [place] [address] PCP - General Family Medicine 12/19/22 documented as of this encounter
--- OUTSIDE RECORDS SUMMARY | 2024-06-01 06:52 | XMS_ITS | Encounter Summary ---
Author Organization [facility] Address [address] [place] [address] Care Team Providers Care Spool Cleaner Name Role Phone Gatito Yoder MD Primary Care Provider Unavail able Encounter Details Date Type Department Care Team (Late st Contact Info) Description 05/26/2009 Orders Only [facility] Laboratory Services - [facility] ([facility]) [address] [place], [place] [id number] Eduar Bernstein MD [address] [place] [address] Social History Tobacco Use Types Packs/Day [...] Date/Time Associated Diagnosis Comments SURGICAL PATHOLOGY Routine 05/26/2009 0:00 EDT documented in this encounter Results * SURGICAL PATHOLOGY (05/26/2009 0:00 EDT) Pathology Report: SURGICAL PATHOLOGY REPORT ? Reports generated via electronic interface contain original data; ? however they are lacking the format of the original report. ? Caution should be taken when reading/interpreti ng unformatted reports. ? Name: ? AREVALO, LEANDRA ? Accession #: ? [id number] ? : ? 1980 (Age: 29) ??F ? Collect Date: ? 05/26/2009 ? Location: ? [facility] ? Receive Date: ? 05/27/2009 ? Provider: EDUAR D ALICJA MD ? Copy to: GATITO YODER MD ? Final Pathologic Diagnosis: ? Cervix, 3 o'clock, biopsy: ? 1. ?Transformation zone mucosa with chronic cervicitis and reactive ? epithelial changes. ??See comment. ? 2. ? No dysplasia identified. ? Comment: ? The patient's referring Pap smear ([id number]) has been reviewed and the ? diagnosis of low grade squamous intraepithelial lesion (LSIL) confirmed. ??The ?? atypical cells seen on the Pap smear are not present on the current biopsy, even upon review of deeper levels. ??Dr. Whitney Pedersen has reviewed this case in ? consultation and agrees with the above diagnosis. ??(Dr. Giang)/tmg ? Document reviewed and electronically signed by: ? Annette Gomez MD ? Report ??Date: 06/01/2009 16:02 ? By the signature above, the attending physician certifies that he/she has ? personally conducted a gross and/or microscopic examination of the described ? specimens and rendered or confirmed the above diagnosis. ? Specimen(s) Received: ? Cervix bx @ 3:00 ? Clinical History: ? 05/02/09 ??Pap LSIL; LMP: 05/21/09, control tubal ? Gross Description: ? Received in formalin labelled Arevalo, Leandra and cx bx at 3:00 are two mcdonough-white irregular soft tissue fragments measuring 0.3 x 0.2 x 0.2 cm and 0.6 x 0.5 x 0.3 cm. ??The specimen is entirely submitted in one cassette. ??(M. ? Saldaña)/kmm ? End of Report ? [facility] 05/26/2009 05/27/2009 11: 43 EDT Eduar Bernstein MD PATHOLOGY ORDERABLES Performing Organization Address City/State/[facility] Co de Phone Number [facility] [address] [place] [address] documented in this encounter Visit Diagnoses Not on filedocumented in this encounter Care Teams Spool Cleaner Relationship Specialty Start Date End Date Gatito Yoder MD PCP - General 05/09/09 09/10/13 documented as of this encounter
--- OUTSIDE RECORDS SUMMARY | 2024-06-01 06:52 | XMS_ITS | Clinical Summary ---
Author Organization [facility] Address [facility] [place] [address] Care Team Providers Care Developmental Therapist Name Role Phone Sree High APRN Primary Care Provider +1- [phone] Allergies No known active allergies Medications Medication Sig Dispensed Refills Start Date End Date Status latanoprost (XALATAN) 0.005 % Drops Place 1 drop into both eyes nightly. 3 07/30/2016 Active PROAIR HFA 90 mcg/actuation HFA Aerosol Inhaler Inhale 1 puff into the lungs every 6 hours as needed. 2 04/11/2016 Active cyclobenzaprine (Flexeril) 5 mg Tablet Take 5 mg by mouth 3 times daily as needed. 05/04/2021 Active FLUoxetine (PROzac) 20 mg Capsule Take 20 mg by mouth Daily. Active propranoloL (Inderal) 20 mg Tablet Take 20 mg by mouth 2 times daily. 06/12/2021 Active Emgality Pen 120 mg/mL Pen Injector Inject 120 mg as directed every 30 days. 07/30/2022 Active cholecalciferol, Vitamin D3, 50 mcg (2,000 unit) Capsule Take 1 capsule by mouth daily. 12/26/2022 Active Certavite-Antioxidant 18-400 mg-mcg Tablet Take 1 tablet by mouth daily. 01/24/2023 Active ondansetron ODT (Zofran-ODT) 4 mg disintegrating tablet Take 1 tablet by mouth every 8 hours. 20 tablet 03/29/2023 Active acetaminophen (Tylenol) 325 mg tablet Take 2 tablets by mouth every 6 hours as needed for Pain. 30 tablet 1 03/29/2023 Active SF 5000 Plus 1.1 % Cream BRUSH TEETH DIRECTED 05/30/2023 Active meclizine (Antivert) 25 mg chewable tablet CHEW ONE TABLET BY MOUTH THREE TIMES A DAY FOR 7 DAYS NEEDED FOR DIZZINESS 10/09/2023 Active sucralfate (Carafate) 100 mg/mL SuspensionIndications: Epigastric pain Take 10 mLs by mouth 4 times daily. 420 mL 10/22/2023 Active Active Problems Problem Noted Date Diagnosed Date Diplopia 03/29/2023 Dizziness 03/29/2023 Physical deconditioning 03/29/2023 Severe protein-calorie malnutrition 03/26/2023 Overview (03/26/2023): less than 75% of estimated energy requirement for greater than or equal to 1 month and greater than 10% weight loss in 6 months is consistent with Severe protein-calorie malnutrition in the setting of chronic illness Abdominal pain 03/18/2023 Severe obesity (BMI >= 40) 01/10/2023 CHUN (obstructive sleep apnea) 01/02/2022 Pain in right foot 06/07/2021 Glaucoma 06/07/2021 Fibromyalgia 06/07/2021 Osteoarthritis, multiple sites 06/07/2021 Adult BMI 40.0-44.9 kg/sq m 06/07/2021 Depression with anxiety 06/07/2021 Calculi, ureter 01/17/2016 Back pain 01/03/2016 Mood disorder 01/03/2016 Chronic pelvic pain in female 08/10/2015 Unspecified dyspareunia 11/26/2014 Endometriosis 10/25/2014 Irritable bowel syndrome with diarrhea 1 Encounters Date Type Department Care Team Description 05/22/2024 12:30 PM EDT [place] [address] Rhianna Summers, PT Vestibular dysfunction, unspecified laterality; Dizziness 05/22/2024 Travel 04/17/2024 8:30 AM EDT - 04/17/2024 9:00 AM EDT [place] [address] Iram Borrero MD EGD WITH BIOPSY (WRVU 2.39) 04/17/2024 8:28 AM EDT Anesthesia Event Gastroenterology at [place] [id number] Wes Vega MD Hartman, Jessica J, ZACK 04/17/2024 7:44 AM EDT - 04/17/2024 9:39 AM EDT Hospital Encounter Gastroenterology at [place] [phone] Iram Borrero MD Discharge Disposition: Home 04/03/2024 Telephone General Surgery at [place] [phone] Anni Varela, ASSOCIATE DENTIST 04/02/2024 1:38 PM EDT - 04/02/2024 11:59 PM EDT Hospital Encounter [place]Ray [place] [address] [place] [phone] Anni Varela, ASSOCIATE DENTIST Epigastric pain; S/P gastric bypass Discharge Disposition: Home 04/02/2024 Travel 03/24/2024 Orders Only Gastroenterology at [place] [address] Sunshine Yen MD PSC (primary sclerosing cholangitis) 03/23/2024 12:51 PM EDT - 03/23/2024 11:59 PM EDT Hospital Encounter MRI at [place] [phone] Sunshine Yen MD Biliary stricture Discharge Disposition: Home 03/22/2024 Travel from Last 3 Months Immunizations Name Administration Dates Next Due Influenza (FluMist) Quadriva lent, Intranasal LIVE 07/30/2012,08/29/2010,09/04/2007 Influenza Quadrivalent with Preservative 013 Influenza Vaccine, Whole 09/04/2007,09/25/2005 TD Adult 02/12/2006 Td Adult, Absorbed, Preservative Free 02/12/2006 Social History Tobacco Use Types Packs/Day Years Used Date Smoking Tobacco: Never Smokeless Tobacco: Never Tobacco Cessation:Counseling Given: Not Answered Alcohol Use Standard Drinks/Week Comments Not Currently 0 (1 standard drink = 0.6 oz pur e alcohol) [facility] Inpatient Questions Answer Date Recorded [...] Orientation Straight 10/05/2021 8: 56 AM EST Last Filed Vital Signs Vital Sign Reading [...] Mass Index 21.11 04/17/2024 8:00 AM EDT Plan of Treatment Scheduled Procedures Name Priority Associated Diagnoses Date/Ti me COLONOSCOPY, DIAGNOSTIC (WRV U 3.26) Biliary stricture Screening for colon cancer Health Maintenance Due Date Last Done Comments CT Colonography 1978 Colonoscopy 1978 Colorectal Cancer Screening 1978 FIT DNA 1978 FIT 1978 Sigmoidoscopy (10 year) with FIT yearly 1978 Sigmoidoscopy 1978 HIV screen 1996 Hepatitis C Screening 1996 Hepatitis B vaccine (0-59 yr s) (1) 1997 Tdap adult 1997 HPV test 2008 PAP Smear 2008 Tetanus vaccine 02/13/2016 02/12/2006, 02/12/2006 Breast Cancer Share Decision Needed 2018 Breast Cancer screening 2018 Covid-19 Vaccine (2022-2 4 season) 2023 Influenza (Flu) vaccine (1 o f 1 - Influenza standard series) 07/19/2024 08/25/2013, 07/30/2012, 08/29/2010, Additional history exists Lipid Screening Discontinued 06/07/2021 Diabetes Screening (HgbA1C o r Glucose) Discontinued 01/10/2024, 08/30/2023, 04/26/2023, Additional history exists Goals Goal Patient Goal Type Associated Problems [...] psychologist to work on eating behaviors Health Marketing Director is sending hand-outs with exercises for mindful [...] sip water slowly outside of meal times Procedures Procedure Name Priority Date/Time Associated Diagnosis Comments SURGICAL PATHOLOGY REPORT Routine 2023 8:45 AM EDT SPECIMEN TO PATHOLOGY Routine 04/17/2024 8:45 AM EDT Upper Gi Endoscopy, Biopsy ([id number]) 04/17/2024 8:32 AM EDT Hiatal hernia Gastroesophageal reflux disease, unspecified whether esophagitis present UPPER GI ENDOSCOPY Routine 04/17/2024 7: 57 AM EDT XR FLUORO UPPER GI DOUBLE CONTRAST WO KUB Routine 04/02/2024 2:43 PM EDT Epigastric pain S/P gastric bypass MRI CHOLANGIOPANCREATOGRAPHY WWO CONTRAST Routine 03/23/2024 2:39 PM EDT Biliary stricture COMPREHENSIVE METABOLIC PANE L (NON-FASTING) Routine 01/10/2024 12:06 PM EST S/P gastric bypass Disorder of iron metabolism LIPID PANEL (REFLEX DIRECT LDL) Routine 06/07/2021 2:25 PM EDT Fatigue, unspecified type Class 2 severe obesity due to excess calories with serious comorbidity and body mass index (BMI) of 39.0 to 39.9 in adult from Last 3 Months or Most Recently Relevant to Health Maintenance Results * Surgical Pathology Report (04/17/2024 8:45 AM EDT) Surgical Pathology Report [id number] ? Location: 4T; EA11; A The signing pathologist has (i) examined the relevant preparation(s) for the specimen(s) and (ii) rendered or confirmed the diagnosis(es). . ?Surgical Pathology DIAGNOSIS A - Gastric pouch, r/o H Pylori, biopsy (Multiple): - ??Gastric fundic mucosa within normal limits. - ??No H. pylori-like microorganisms are seen. Electronically signed by: ?Howard PHILLIPS, Geraldine Mcintyre Verified: ??04/24/2024 7:38 ?? Pathologist Performed at: ??-[facility] Dept. of Pathology, [place] [address] Cat Scanner Operator: Geraldine Lawrence MD, FCAP, ??CLIA Certificate: [id number] SPECIMEN(S) SUBMITTED A - gastric pouch, r/o H Pylori, biopsy (Multiple) CLINICAL INFORMATION 44-year-old female, gastric bypass now with upper abdominal pain SPECIMEN PROCESSING A - Labeled/Fixative: Gastric pouch, rule out H. pylori, formalin. Quantity/Size: Two, 0.4 and 0.6 cm. Tissue Description: Soft, mcdonough tissues. Sections/Processi ng: Submitted in toto ??in 1 cassette labeled A1. ??sdy [facility] 04/17/2024 8:45 AM EDT Iram Borrero MD PATHOLOGY/CYTOLOGY O RDERAISIDRO [facility] [place] [address] * Specimen to Pathology (04/17/2024 8:45 AM EDT) AP Specimen 04/17/2024 8:45 AM EDT 04/17/2024 8:45 AM EDT Narrative [facility] - 04/17/2024 8:45 AM EDT Specimen requisition ordered. ??Separate Pathology report to follow Iram Borrero MD PATHOLOGY/CYTOLOGY O RDERAISIDRO [facility] [place] [address] * UPPER GI ENDOSCOPY (04/17/2024 7:57 AM EDT) UPPER GI ENDOSCOPY [facility] Endoscopy Procedure Date: 04/17/2024 7:57 AM ? Patient Name: Leandra Wilks ? N: [id number] ? Date of : 1980 ? Age: 44 ? Order #: [id number] ? Instrument Name: [id number] ? Procedure: ? Upper GI endoscopy Indications: ? Epigastric abdominal pain, ? Dyspepsia, Assessment following ? Saúl-en-Y gastrojejunostomy Providers: ? Iram Borrero, Daryl Prabhakar, ? MIKE, Katherin Woods Referring MD: ?Sree High Medicines: [...] and ? erythema. This was traversed. The [id number] ? limb was characterized by healthy appearing [...] Procedure Code(s): ? --- Professional --- ? 03562, 52, ? Esophagogastroduoden oscopy, ? flexible, transoral; with biopsy, ? single or multiple Diagnosis Code(s): ? --- Professional --- ? R10.13, Epigastric pain ? K29.70, Gastritis, unspecified, ? without bleeding ? --- Technical --- ? R10.13, Epigastric pain ? K29.70, Gastritis, unspecified, ? without bleeding CPT copyright 2021 [employer]. All rights reserved. The codes documented in this report are preliminary and upon lead cook review may be revised to meet current compliance requirements. Attending Participation: ? I personally performed the entire procedure. ? Iram Borrero MD Iram Borrero, 04/17/2024 10:00:34 AM This report has been signed electronically. Number of Addenda: 0 Note Initiated On: 04/17/2024 7:57 AM PROVATION 04/17/2024 7:57 AM EDT Sree High ASSOCIATE DENTIST GENERAL SURGICAL O RDERABLES PROVATION * XR Fluoro Upper GI Double Contrast wo KUB (04/02/2024 2:43 PM EDT) WORKSTATION ID [id number] DH RAD Anatomical Region Laterality Modality N/A Radio Fluoroscop y Impressions 04/02/2024 4:08 PM EDT 1. ??Status post Saúl-en-Y gastric bypass with intact anastomoses. 2. ??Small hiatal hernia with spontaneous reflux from the gastric pouch into the esophagus. I have personally reviewed the image(s) and the resident's interpretation and agree with the findings, Kathleen Sorto MD at 04/02/2024 4:08 PM Thank you for letting us participate in the care of this patient. ??If you are a health care provider and have any questions regarding this report, please contact the number below. ??For patients who have questions please contact the health healthcare or medical that requested your imaging first. ? Narrative 04/02/2024 4:08 PM EDT EXAMINATION: XR FLUORO UPPER GI DOUBLE CONTRAST WO KUB CLINICAL HISTORY: Patient s/p bariatric surgery with epigastric pain, poor PO intake, nausea R10.13, Epigastric pain - Z98.84, Bariatric surgery status TECHNIQUE: Double contrast UGI was performed. Fluoroscopic spot films were obtained. A 13 mm barium tablet was administered. Fluoro time: 1.05 minutes COMPARISON: Barium swallow 03/19/2023 FINDINGS: Status post Saúl-en-Y gastric bypass. The esophagus is normal in caliber, and is well distended on double contrast views. ??The mucosal pattern is normal. ?? Esophageal peristalsis is normal. There is a small hiatal hernia. Spontaneous reflux from the gastric pouch was appreciated. There is prompt filling and emptying of the gastric pouch. No gastrogastric fistula visualized. Contrast promptly transits the jejunojejunal anastomosis. At the end of the examination contrast is visualized within the mid jejunum. A 13 mm barium tablet was swallowed without issue and passed promptly into the stomach. Procedure Note Kathleen Sorto MD - 04/02/2024 EXAMINATION: XR FLUORO UPPER GI DOUBLE CONTRAST WO KUB CLINICAL HISTORY: Patient s/p bariatric surgery with epigastric pain, poorPO intake, nausea R10.13, Epigastric pain - Z98.84, Bariatric surgery status TECHNIQUE: Double contrast UGI was performed. Fluoroscopic spot films were obtained.A 13 mm barium tablet was administered. Fluoro time: 1.05 minutes COMPARISON: Barium swallow 03/19/2023 FINDINGS: Status post Saúl-en-Y gastric bypass. The esophagus is normal in caliber, and is well distended on doublecontrast views. The mucosal pattern is normal. Esophageal peristalsis is normal. There is a small hiatal hernia. Spontaneous reflux from the gastric pouchwas appreciated. There is prompt filling and emptying of the gastric pouch. Nogastrogastric fistula visualized. Contrast promptly transits the jejunojejunalanastomosis. At the end of the examination contrast is visualized within the midjejunum. A 13 mm barium tablet was swallowed without issue and passed promptly intothe stomach. IMPRESSION 1. Status post Saúl-en-Y gastric bypass with intact anastomoses. 2. Small hiatal hernia with spontaneous reflux from the gastric pouchinto the esophagus. I have personally reviewed the image(s) and the resident's interpretationand agree with the findings, Kathleen Sorto MD at 04/02/2024 4:08 PM Thank you for letting us participate in the care of this patient. If youare a health care provider and have any questions regarding this report,please contact the number below. For patients who have questions please contactthe health healthcare or medical that requested your imaging first. Anni E Nichole ASSOCIATE DENTIST IMG FLUORO ORDERAB LES * MRI Cholangiopancreatography wwo Contrast (03/23/2024 2:39 PM EDT) WORKSTATION ID [id number] RAD Anatomical Region Laterality Modality Magnetic Resonan ce Impressions 03/24/2024 8:56 AM EDT 1. ??Stable central intrahepatic stricturing/dilation. 2. ??No suspicious hepatic lesion. Thank you for letting us participate in the care of this patient. ??If you are a health care provider and have any questions regarding this report, please contact the number below. ??For patients who have questions please contact the health healthcare or medical that requested your imaging first. ? Narrative 03/24/2024 8:56 AM EDT EXAMINATION: MRI [...] focal marrow signal abnormality. Procedure Note Carleen Workman MD - 03/24/2024 EXAMINATION: MRI CHOLANGIOPANCREATOGRAPHY WWO [...] patients who have questions please contactthe health healthcare or medical that requested your imaging first. Sunshine Yen MD IM MRI ORDERABLES * (ABNORMAL) Comprehensive metabolic panel (non-fasting) (01/10/2024 12:06 PM EST) Glucose Lvl 82 65 - 199 mg/dL [facility] Comment:Diabetes: >=200 mg/d L plus symptoms BUN 14 8 - 18 mg/dL [facility] Creatinine 0.63(L) 0.70 - 1.20 mg/dL [facility] Sodium 139 135 - 145 mmol/L [facility] Potassium 3.8 3.5 - 5.0 mmol/L [facility] Comment: Please note: ??Patients with WBC >100,000 may have falsely elevated Potassium levels. ??For accurate Potassium quantification in these patients send serum separator tube (gold top) for subsequent determinations. ??Contact the Clinical Chemistry Laboratory if there are any questions. Chloride 104 98 - 107 mmol/L [facility] CO2 28 22 - 31 mmol/L [facility] Anion Gap 7 5 - 15 mmol/L [facility] Calcium 9.2 8.5 - 10.5 mg/dL [facility] Total Protein 6.6 6.1 - 8.0 g/dL [facility] Albumin 4.4 3.2 - 5.2 g/dL [facility] AST 30 0 - 30 unit/L [facility] ALT 39(H) 0 - 30 unit/L [facility] Alk Phos 94 35 - 105 unit/L [facility] Total Bilirubin 0.6 0.2 - 1.3 mg/dL [facility] Estimated GFR 111 >=60 mL/min/1. 73 m?? [facility] Comment: This patient's estimated GFR was calculated using the 2020 CKD-EPI equation. The estimated GFR can vary from the measured GFR by up to 30% in the absence of rapidly changing kidney function. Assessment of the estimated GFR is not appropriate when creatinine concentrations are rapidly changing. For clinical situations in which a more precise estimate of GFR is necessary, consider alternative methods of GFR estimation such as a 24-hour urine creatinine clearance. Assignment of CKD stage 1-5 for patients with an eGFR near the transition point between stages may be based on clinical assessment of muscle mass and symptoms in addition to eGFR. Blood 01/10/2024 12:0 6 PM EST 01/10/2024 12:17 PM EST Narrative Resulting Agency Comment Spec In Lab Anni E Berkeley ASSOCIATE DENTIST CHEMISTRY ORDERABL ES [facility] [place] [address] * Lipid Panel (Reflex Direct LDL) (06/07/2021 2:25 PM EDT) Chol, Total 173 mg/dL [facility] Comment: Lower Risk: <200 mg/dL Average Risk: 200-239 mg/dL Higher Risk: >yf=672 mg/dL Triglycerides 97 mg/dL [facility] Comment: Average Risk/Lower Risk: <150 mg/dL Borderline High Risk: 150-199 mg/dL High Risk: 200-499 mg/dL Very High Risk: >bi=222 mg/dL HDL 56 mg/dL [facility] Comment: Males: ?? Higher Risk: <40 mg/dL Females: ?? Higher Risk: <50 mg/dL LDL Cholesterol 98 mg/dL [facility] Comment: Lowest Risk: <100 mg/dL Lower Risk: 100-129 mg/dL Borderline High Risk: 130-159 mg/dL High Risk: 160-189 mg/dL Very High Risk: >tc=598 mg/dL Chol/HDL Ratio 3.1 ratio [facility] Lipid Interpretation See Note [facility] Comment: Lipid management should be guided by a patient? s ASCVD risk, goals and preferences. ACC/AHA Guidelines recommend high intensity statin if clinical ASCVD or LDL greater than or equal to 190 mg/dL. http://Technitrol.com/XHA-PKH-Wakevgsyn Adults aged 40-75 with LDL 70-189 mg/dL should have their 10 year ASCVD risk estimated with the ACC/AHA ASCVD risk judicial assistant http://tools.acc.org/EEBPW-Ftrk-Acpblbyak/ Statin should be discussed if risk greater than or equal to 7.5% in non-diabetics. With diabetes, moderate intensity statin is recommended if risk less than 7.5%, high intensity if risk greater than or equal to 7.5%. Annual lipid monitoring on statins is not necessary. Evaluate secondary causes of Triglycerides greater than 500 mg/dL or LDL greater than 190 mg/dL: See table 6 of ACC/AHA Guideline. Lifestyle modification is a critical component of ASCVD risk reduction. 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 Personal Marine Cargo Surveyor 03/21/2023 10:43 AM Personal Rep Form * Attempt Cardiopulmonary Resuscitation - Inpatient (Latest Code Status on File) Date Activated Date Inactivated Comments 03/18/2023 4:53 PM 03/29/2023 3:41 PM Question Answer Comments Code Status decision made by: Patient * Attempt Cardiopulmonary Resuscitation - Inpatient Date Activated Date Inactivated Comments 03/05/2023 4:53 PM 03/05/2023 8:36 PM Question Answer Comments Code Status decision made by: Patient * Attempt Cardiopulmonary Resuscitation - Inpatient Date Activated Date Inactivated Comments 01/10/2023 6:50 PM 01/13/2023 5:37 PM Question Answer Comments Code Status decision made by: Patient Care Teams Developmental Therapist Relationship Specialty Start Date End Date Sree High, ASSOCIATE DENTIST [address] [place] [address] PCP - General Family Medicine 12/19/22
--- OUTSIDE RECORDS SUMMARY | 2024-06-01 06:52 | XMS_ITS | Encounter Summary ---
Author Organization [facility] Address [facility] [place] [address] Care Team Providers Care Windsurfing Instructor Name Role Phone Sree High APRN Primary Care Provider +1- [phone] Encounter Details Date Type Department Care Team (Late st Contact Info) Description 11/07/2023 Telephone General Surgery at [facility] [place] [phone] Blaire Quintero, RN Social History Tobacco Use Types Packs/Day Years Used Date Smoking Tobacco: Never Smokeless Tobacco: Never Alcohol Use Standard Drinks/Week Comments Not Currently 0 (1 standard drink = 0.6 oz pur e alcohol) [facility] Inpatient Questions Answer Date Recorded Does [...] encounter Miscellaneous Notes * Telephone Encounter - Blaire Quintero RN - 11/07/2023 11:28 AM EST Pt sent the following [facility] message: I'm not doing well at all. I'm not able to even take the pills that I need to because I feel so horrible. What should I do? I called the patient to discuss. Pt is s/p laparoscopic anthony-en-y gastric bypass on 01/10/[address] Borrero. Pt states that all she wants to do is stay in bed. She states that she is weak, has no energy and the room is spinning. I asked her to estimate how many ounces of fluids she thinks she is getting in a day and she statesnot much. She states that she isn't getting in 1/2 a bottle of water. I asked her to estimate how much protein she is getting in a day and she states I am trying my best. She did not estimate a number but states she had 1 egg this morning and that is all she was ableto get in. She states that her stomach hurts all the time. She denies any issues with swallowing or feeling like food is getting stuck. She states that food and drink doesn't set well. I asked her to describe her pain. She states that it is a constant dull pain and kind of crampy. I asked what made it worse or better. She states that eating and drinking makes the pain worse and sleeping is what makes it better. She states that she is urinating fine and her urine is not dark. I asked how her bowels were moving. She states that she has a hard time going. She passes a small amount of hard stool every day. She is not taking miralax or any other laxative or stool softener. When I asked how long this has been going on, she states that it has been an on going issue but it seems to be getting a little worse day to day. Plan: I reviewed the importance of fluids and fiber. I encouraged her to take some MOM to get her bowels moving because sometimes if we are too backed up, then there is no room for additional food and you can become nauseous or have a food aversion/no appetite. If she continues to feel as she does and cannot get in more fluids, she will need to go to the ED for evaluation. I will let Anni Varela APRN know of this call and we will be in touch if she would like to alter the plan. Pt verbalizes her understanding and agrees with the plan. documented in this encounter Plan of Treatment [...] Lifestyle On track(2021 10:28 AM EST) Jill oClmenares APRN Note: Mindfulness/deep breathing practice to reduce cortisol -try for at least 10 minutes a day -try an ap such as headspace I have referred you to our psychologist to work on eating behaviors Health Bobbin Painter is sending hand-outs with exercises for mindful [...] on filedocumented in this encounter Care Teams Windsurfing Instructor Relationship Specialty Start Date End Date Sree High APRN [address] [facility] [address] [place] [address] PCP - General Family Medicine 12/19/22 documented as of this encounter
--- OUTSIDE RECORDS SUMMARY | 2024-06-01 06:52 | XMS_ITS | Encounter Summary ---
Author Organization [facility] Address [facility] [place] [address] Care Team Providers Care Top Knitter Name Role Phone Sree High APRN Primary Care Provider +1- [phone] Encounter Details Date Type Department Care Team (Latest Contact Info) Description 01/03/2024 Travel Social History Tobacco Use Types Packs/Day [...] track(2021 10:28 AM EST) Jill Colmenares, ELECTRICAL WIRING LINEMAN Note: Mindfulness/deep breathing practice to reduce cortisol -try for at least 10 minutes a day -try an ap such as headspace I have referred you to our psychologist to work on eating behaviors Health Elevator Conductor is sending hand-outs with exercises for mindful eating, The Pause/STOP and Urge surfing. Patient will review and try implementing some behaviors before we meet again. movement Lifestyle On track(2021 10:29 AM EST) Jill Colmenares, ELECTRICAL WIRING LINEMAN Note: Exercise goal is 150 min a [...] on filedocumented in this encounter Care Teams Top Knitter Relationship Specialty Start Date End Date Sree High, ELECTRICAL WIRING LINEMAN [address] [place] [address] [address] [facility] [address] [place] [address] PCP - General Family Medicine 12/19/22 documented as of this encounter
--- OUTSIDE RECORDS SUMMARY | 2024-06-01 06:52 | XMS_ITS | Encounter Summary ---
Author Organization [facility] Address [facility] [place] [address] Care Team Providers Care Safety Risk Lead Name Role Phone Sree High APRN Primary Care Provider +1- [phone] Encounter Details Date Type Department Care Team (Late st Contact Info) Description 04/17/2024 8:28 AM EDT Anesthesia Event [place] [address] Wes Vega MD [facility] [place] [address] Gricel Rooney CRNA [facility] [address] Anesthesia Record Procedure Summary Procedure Name Responsible Anesthesiologist Anesthesia Start Time Anesthesia Stop Time EGD WITH BIOPSY (WRVU 2.39) (Trunk) Wes Vega MD 04/17/24 0828 04/17/24 0850 Events Date Time Event Comment 04/17/2024 0828 Start 0832 AN Verify 0833 An Start Data 0835 An Induction 0835 Anesthesia Ready 0838 0847 an stop data 0850 Recovery or ICU Handoff Kamini ent care was transferred to the destination unit staff after review of the patient's medical history, current anesthetic/surgical status and plan, according to the Provider Handoff Checklist. 0850 Stop Meds Name Total IV Lidocaine 100 mg Propofol 100 mg Propofol INF 106.02 mg lactated ringers 0 mL * Agents Name O2 Auxiliary Flowmeter 1 * Blood No blood administrations on file. Lines, Drains, and Airways Type Details Placement Removal Incision 03/22/23; 2006; medi al; abdomen; laparoscopic punctures (specify); lap sites x 3 03/22/232006 by Maria Ines Condon RN PIV 04/17/24; 08; crdf-ild-hdjapu catheter system; 22 gauge; cephalic vein (lateral side of arm), right; Anatomical Landmarks; US Not Used; Nancy MCKEON; distraction; 04/17/24; 0934 04/17/24 0807 by Dede Orourke RN 04/17/24 0934 by Jerri Taylor RN documented in this encounter Social History Tobacco Use Types Packs/Day Years [...] AM EST documented as of this encounter OR Notes * Anesthesia Postprocedure Evaluation - Wes Vega MD - 04/17/2024 9:19 AM EDT Department of Anesthesiology Post-procedure Note Patient: Leandra Wilks Procedure Summary Date: 04/17/24 Room / Location: [facility] ENDO 6 / [facility] ENDOSCOPY Anesthesia Start: 827 Anesthesia Stop: 849 Procedure: EGD WITH BIOPSY (WRVU 2.39) (Trunk) Diagnosis: Hiatal hernia Gastroesophageal reflux disease, unspecified whether esophagitis present (hiatal hernia ) (s/p luis fernando-surg) (gerd) Surgeons: Iram Borrero MD Responsible Provider: Wes Vega MD Anesthesia Type: MAC ASA Status: 2 All Anesthesia Providers: Anesthesiologist: Wes Vega MD SECOND CLASS WELDER: Gricel Rooney CRNA Vitals Value Taken Time BP 109/73 04/17/24 0910 Temp Pulse Resp 16 04/17/24 0910 SpO2 100 % 04/17/24 0917 Pain Level 0 04/17/24 0910 Vitals shown include unfiled device data. Patient Location: PACU/[facility] Level of Consciousness: Awake and Alert Pain Management: Satisfactory Analgesia PONV: None Cardiovascular Status: At Baseline and Hemodynamically Stable Respiratory Status: At Baseline and Room Air Postoperative Fluid Status: Intravascular EUvolemia Possible Anesthetic Complications: NONE apparent at time of evaluation Final Primary Anesthesia Type: MAC (The anesthetic type performed was the same as planned.) Comments: WES VEGA MD * Anesthesia Preprocedure Evaluation - Wes Vega MD - 04/17/2024 8:34 AM EDT Pre-Anesthesia Evaluation for: Leandra Wilks a 44 y.o. female. Procedure(s): EGD, UPPER GI ENDOSCOPY (VU 2.09) Patient Active Problem List Diagnosis Date Noted Diplopia 03/29/2023 Dizziness 03/29/2023 Physical deconditioning 03/29/2023 Severe protein-calorie malnutrition 03/26/2023 Abdominal pain 03/18/2023 Severe obesity (BMI >= 40) 01/10/2023 CHUN (obstructive sleep apnea) 01/02/2022 Pain in right foot 06/07/2021 Glaucoma 06/07/2021 Fibromyalgia 06/07/2021 Osteoarthritis, multiple sites 06/07/2021 Adult BMI 40.0-44.9 kg/sq m 06/07/2021 Depression with anxiety 06/07/2021 Calculi, ureter 01/17/2016 Back pain 01/03/2016 Mood disorder 01/03/2016 Chronic pelvic pain in female 08/10/2015 Unspecified dyspareunia 11/26/2014 Endometriosis 10/25/2014 Irritable bowel syndrome with diarrhea 05/03/2011 No past medical history on file. Past Surgical History: Procedure Laterality Date ABDOMINAL EXPLORATION SURGERY 10/31/2004 b/l salpingectomy and removel enodmetrial implantsin cul de sac APPENDECTOMY CARPAL TUNNEL RELEASE Bilateral CHOLECYSTECTOMY HYSTERECTOMY, VAGINAL 05/12/2015 PRO FREEING BOWEL ADHESION, ENTEROLYSIS N/A 03/22/2023 @LYSIS OF ADHESIONS, ABD. (WRVU 18.46) performed by Iram Borrero MD at [facility] MAIN OR PRO LAP GASTRIC BYPASS/RENATO-EN-Y N/A 01/10/2023 @LAPAROSCOPIC GASTROPLASTY W/ RENATO-EN-Y CONSTRUCTION (WRVU 29.4) performed by Iram Borrero MDat [facility] MAIN OR PRO LAP, DIAGNOSTIC ABDOMEN N/A 03/22/2023 LAPAROSCOPY, DIAGNOSTIC, ABDOMEN (WRVU 5.14) performed by Iram Borrero MD at [facility] MAIN OR PRO UPPER GI ENDOSCOPY, DIAGNOSTIC N/A 01/10/2023 EGD, UPPER GI ENDOSCOPY performed by Iram Borrero MD at [facility] OR PRO UPPER GI ENDOSCOPY, DIAGNOSTIC N/A 03/05/2023 EGD, UPPER GI ENDOSCOPY (WRVU 2.09) performed by Iram Borrero MD at [facility] OR PRO UPPER GI ENDOSCOPY, DIAGNOSTIC N/A 03/20/2023 EGD, UPPER GI ENDOSCOPY (WRVU 2.09) performed by Gerber Salomon MD at [facility] ENDOSCOPY Social History Tobacco Use Smoking status: Never Smokeless tobacco: Never Substance Use Topics Alcohol use: Not Currently Social History Substance and Sexual Activity Drug Use Not Currently No Known Allergies Medications: MAR and/or home medications have been reviewed. Physical Exam: Preprocedure Vitals Current as of 04/17/24 0833 BP: 128/82 Pulse: 100 Resp: SpO2: 100 Temp: 36.1 ??C (96.9 ??F) Height: 162.6 cm (5' 4) (04/17/24) Weight: 55.8 kg (123 lb) (04/17/24) BMI: 21.11 IBW: 54.7 kg (120 lb 10.7 oz) Last edited 04/17/24 0800 by LW Airway Assessment: Mallampati: II TM distance: >3 FB Neck ROM: full Cardiovascular Assessment: system normal Pulmonary Assessment: pulmonary exam normal Dental Assessment: - normal exam Misc Assessment: Last Filed Perioperative Cognitive Screening None Anesthesia Plan: ASA 2 MAC, with a(n) intravenous induction This is a 44 year old female with a past medical history significant for obesity s/p bariatric surgery who presents with persistent abdominal and food intolerance for EGD. Reports awareness under anesthesia - does not recall specifics regarding case Appropriately NPO Plan propofol MAC Region - Other Informed Consent: Anesthetic plan and risks discussed with patient. Plan discussed with attending and SECOND CLASS WELDER. Anesthesia Screening documented in this encounter Plan of Treatment [...] psychologist to work on eating behaviors Health Raimann Machine Operator is sending hand-outs with exercises for [...] Date Dose Rate Site lactated ringers infusion Intravenous, CONTINUOUS PRN, Starting on Sat04/17/24 at 0828, Until Sat04/17/24 at 0850, Anesthesia Intra-op New Bag 04/17/2024 8:28 AM EDT lidocaine (pf) (Xylocaine) (20 mg/mL) 2% injection syringe Intravenous, PRN, Starting on Sat04/17/24 at 0835, Until Sat04/17/24 at 0850, Anesthesia Intra-op, Routine Given 04/17/2024 8:35 AM EDT 100 mg propofoL (Diprivan) (10 mg/mL) infusion Intravenous, CONTINUOUS PRN, Starting on Sat04/17/24 at 0835, Until Sat04/17/24 at 0850, Anesthesia Intra-op, Routine Rate/Dose Change 04/17/2024 8:40 AM EDT 100 mcg/kg/min 33.48 mL/hr New Bag 04/17/2024 8:35 AM EDT 300 mcg/kg/min 100.44 mL /hr propofoL (Diprivan) 10 mg/mL bolus injection (Anesthesia) Intravenous, PRN, Starting on Sat04/17/24 at 0835, Until Sat04/17/24 at 0850, Anesthesia Intra-op Given 04/17/2024 8:37 AM EDT 50 mg Given 04/17/2024 8:35 AM EDT 50 mg documented in this encounter Care Teams Safety Risk Lead Relationship Specialty Start Date End Date Sree High, BRYANNA [address] [place] [address] PCP - General Family Medicine 12/19/22 documented as of this encounter
--- OUTSIDE RECORDS SUMMARY | 2024-06-01 06:52 | XMS_ITS | Encounter Summary ---
Author Organization [facility] Address [facility] [place] [address] Care Team Providers Care Construction Flagger Name Role Phone Sree High APRN Primary Care Provider +1- [phone] Encounter Details Date Type Department Care Team (Late st Contact Info) Description 04/03/2024 Telephone [place] [phone] Anni Varela SMALL ENGINE TECHNICIAN [facility] [place] [address] Social History Tobacco Use Types Packs/Day Years Used Date Smoking Tobacco: Never Smokeless Tobacco: Never Alcohol Use Standard Drinks/Week Comments Not Currently 0 (1 standard drink = 0.6 oz pur e alcohol) [facility] Inpatient Questions Answer Date Recorded Does Anyone [...] encounter Miscellaneous Notes * Telephone Encounter - Kelsey Palmer - 04/06/2024 8:50 AM EDT Left message to schedule EGD. * Telephone Encounter - Anni Varela APRN - 04/03/2024 1:08 PM EDT Called patient to review UGI results. Patient is s/p laparoscopic Saúl-en-Y gastric bypass on 01/10/[address] Borrero Leandra continues to have upper abdominal pain radiating to back at times. Pain is rated 6/10. She continues on BID PPI (20 mg Pantoprazole). States intake is limited by pain, thus far today she has had about 20 oz fluid and leftovers - 5 bites of steak. Endorses nausea, no recent vomiting. A/P: Patient 14 months s/p RNY with persistent upper abdominal pain. -Advised resuming Sucralfate, reviewed administration instructions. -Continue BID PPI. -Reviewed protein and fluid goals. -Reviewed ED precautions re: abdominal pain and dehydration. -Per MM will move forward with scheduling EGD. -Questions encouraged and answered. documented in this encounter Plan of Treatment [...] psychologist to work on eating behaviors Health Lawn Mower Repairer is sending hand-outs with exercises for [...] on filedocumented in this encounter Care Teams Construction Flagger Relationship Specialty Start Date End Date Sree High APRN [address] [place] [address] PCP - General Family Medicine 12/19/22 documented as of this encounter
--- OUTSIDE RECORDS SUMMARY | 2024-06-01 06:52 | XMS_ITS | Encounter Summary ---
Author Organization [facility] Address [facility] [place] [address] Care Team Providers Care Copying Machine Repairer Name Role Phone Sree High APRN Primary Care Provider +1- [phone] Encounter Details Date Type Department Care Team ([facility] st Contact Info) Description 04/17/2024 8:30 AM EDT - 04/17/2024 9:00 AM EDT Surgery [place] [phone] Iram Borrero MD [facility] [place] [address] EGD WITH BIOPSY (WRVU 2.39) Social History Tobacco Use Types Packs/Day Years [...] Sign Reading Time Taken Comments Blood Pressure 119/71 04/17/2024 9:00 AM EDT Pulse 100 04/17/2024 8:00 AM EDT Temperature 36.1 ??C (96.9 ??F) 04/17/2024 8:00 AM ED T Respiratory Rate 16 04/17/2024 9:00 AM EDT Oxygen Saturation 100% 04/17/2024 9:00 AM EDT Inhaled Oxygen Concentration - - Weight 55.8 kg (123 lb) 04/17/2024 8:00 AM EDT Height 162.6 cm (5' 4) 04/17/2024 8:00 AM EDT Body Mass Index 21.11 04/17/2024 8:00 AM EDT documented in this encounter Discharge Instructions * Discharge Instructions* Jerri Taylor RN - 04/17/2024 8:54 AM EDT Upper [...] the day after the procedure, use an wxqh-ojd-fliftcf spray to numb your throat. Sucking on [...] occurs, please contact your Doctor. Please call [phone] before 8pm Mon-Fri with problems, questions or concerns. If you call after 8pm or on weekends, call the Hospital at [phone] and ask to speak to the Lockstitch Pocket Setter division roadmaster and the heater planer operator will contact that person for you. When should you call for help? Call [phone] anytime you think you may need emergency [...] any problems. Where can you learn more? [facility] View your After Visit Summary and more online at [email or web address] If you would like to provide feedback [...] cost to you. Content Version: 12.2 ?? 5411-1710 [employer]. Care instructions adapted under license by [facility]. If you have questions about a medical condition or this instruction, always ask your healthcare professional. [employer] disclaims any warranty or liability for your [...] Borrero MD - 04/17/2024 8:[address] [facility] General Surgery History and Physical History of [...] 18.46) performed by Iram Borrero MD at [facility] MAIN OR PRO LAP GASTRIC BYPASS/RENATO-EN-Y N/A 01/10/2023 @LAPAROSCOPIC GASTROPLASTY W/ RENATO-EN-Y CONSTRUCTION (WRVU 29.4) performed by Iram Borrero MDat [facility] MAIN OR PRO LAP, DIAGNOSTIC ABDOMEN N/A 03/22/2023 LAPAROSCOPY, DIAGNOSTIC, ABDOMEN (WRVU 5.14) performed by Iram Borrero MD at [facility] MAIN OR PRO UPPER GI ENDOSCOPY, DIAGNOSTIC N/A 01/10/2023 EGD, UPPER GI ENDOSCOPY performed by Iram Borrero MD at [facility] MAIN OR PRO UPPER GI ENDOSCOPY, DIAGNOSTIC N/A 03/05/2023 EGD, UPPER GI ENDOSCOPY (WRVU 2.09) performed by Iram Borrero MD at [facility] MAIN OR PRO UPPER GI ENDOSCOPY, DIAGNOSTIC N/A 03/20/2023 EGD, UPPER GI ENDOSCOPY (WRVU 2.09) performed by Gerber Salomon MD at [facility] ENDOSCOPY Medications: No current facility-administered medications on [...] Borrero MD General Surgery Minimally Invasive Surgery [phone] documented in this encounter Miscellaneous Notes * Op Note - Iram Borrero MD - 04/17/2024 8:37 AM EDT [facility] Operative Note Patient Name: Leandra Wilks : [id number] MR#: [id number] Case Date: 04/17/2024 Surgeon: Surgeons and Role: [...] psychologist to work on eating behaviors Health Development Educator is sending hand-outs with exercises for mindful eating, The Pause/STOP and Urge surfing. Patient will review and try implementing some behaviors before we meet again. movement Lifestyle On track(2021 10:29 AM EST) Jill Colmenares, BRYANNA Note: Exercise goal is 150 min a [...] 8:45 AM EDT Upper Gi Endoscopy, Biopsy (87005) 04/17/2024 8:32 AM EDT Hiatal hernia Gastroesophageal reflux disease, unspecified whether esophagitis present UPPER GI ENDOSCOPY Routine 04/17/2024 7: 57 AM EDT documented in this encounter Results * Surgical Pathology Report (04/17/2024 8:45 AM EDT) Surgical Pathology Report [id number] ? Location: 4T; [facility]; A The signing pathologist has (i) examined the relevant preparation(s) for the specimen(s) and (ii) rendered or confirmed the diagnosis(es). . ?Surgical Pathology DIAGNOSIS A - Gastric pouch, r/o H Pylori, biopsy (Multiple): - ??Gastric fundic mucosa within normal limits. - ??No H. pylori-like microorganisms are seen. Electronically signed by: ?Geraldine Lawrence MD Verified: ??04/24/2024 7:38 ?? Pathologist Performed at: ??-[facility] Dept. of Pathology, [place] [address] Clinical Practitioner: Geraldine Lawrence MD, AP, ??CLIA Certificate: [id number] SPECIMEN(S) SUBMITTED A - gastric pouch, r/o H Pylori, biopsy (Multiple) CLINICAL INFORMATION 44-year-old female, gastric bypass now with upper abdominal pain SPECIMEN PROCESSING A - Labeled/Fixative: Gastric pouch, rule out H. pylori, formalin. Quantity/Size: Two, 0.4 and 0.6 cm. Tissue Description: Soft, mcdonough tissues. Sections/Processi ng: Submitted in toto ??in 1 cassette labeled A1. ??sdy [facility] 04/17/2024 8:45 AM EDT Iram Borrero MD PATHOLOGY/CYTOLOGY O MANDY Performing Organization Address [facility]/[place] [address] * Specimen to Pathology (04/17/2024 8:45 AM EDT) AP Specimen 04/17/2024 8:45 AM EDT 04/17/2024 8:45 AM EDT Narrative [facility] - 04/17/2024 8:45 AM EDT Specimen requisition ordered. ??Separate Pathology report to follow Iram Borrero MD PATHOLOGY/CYTOLOGY O MANDY Performing Organization Address City/[facility]/ZIP Co de Phone Number [facility] [place] [address] * UPPER GI ENDOSCOPY (04/17/2024 7:57 AM EDT) UPPER GI ENDOSCOPY [facility] Endoscopy Procedure Date: 04/17/2024 7:57 AM ? Patient Name: Leandra Wilks ? Date of : 1980 ? Age: 44 ? Order #: [id number] ? Instrument Name: [id number] ? Procedure: ? Upper GI endoscopy Indications: [...] and ? erythema. This was traversed. The [id number]-[id number] ? limb was characterized by healthy appearing [...] Procedure Code(s): ? --- Professional --- ? 09032, 52, ? Esophagogastroduoden oscopy, ? flexible, transoral; with biopsy, ? single or multiple Diagnosis Code(s): ? --- Professional --- ? R10.13, Epigastric pain ? K29.70, Gastritis, unspecified, ? without bleeding ? --- Technical --- ? R10.13, Epigastric pain ? K29.70, Gastritis, unspecified, ? without bleeding CPT copyright 2021 [employer]. All rights reserved. The codes documented in this report are preliminary and upon telephone service representative review may be revised to meet current compliance requirements. Attending Participation: ? I personally performed the entire procedure. ? Iram Borrero MD Iram Borrero, 04/17/2024 10:00:34 AM This report has been signed electronically. Number of Addenda: 0 Note Initiated On: 04/17/2024 7:57 AM PROVATION 04/17/2024 7:57 AM EDT Sree High CIGAR MAKING MACHINE OPERATOR GENERAL SURGICAL O RDERABLES PROVATION documented in this encounter Visit Diagnoses Diagnosis Hiatal hernia Diaphragmatic hernia without mention of obstruction or gangrene Gastroesophageal reflux disease, unspecified whether esophagitis present documented in this encounter Administered Medications Inactive [...] RN) documented in this encounter Care Teams Copying Machine Repairer Relationship Specialty Start Date End Date Sree High APRN [address] [place] [address] PCP - General Family Medicine 12/19/22 documented as of this encounter
--- OUTSIDE RECORDS SUMMARY | 2024-06-01 06:52 | XMS_ITS | Encounter Summary ---
Author Organization [facility] Address [address] [place] [address] Care Team Providers Care Minibus Driver Name Role Phone Gatito Crawford MD Primary Care Provider Unavail able Encounter Details Date Type Department Care Team (Late st Contact Info) Description 08/04/2007 Results Only [facility] conversion [address] [place] [address] Avery Purvis PA Social History Tobacco Use Types Packs/Day Years Used Date Smoking Tobacco: Never Assessed Sex and Gender Information Value Date Recorded Sex Assigned at Not on file Gender Identity Not on file Sexual Orientation Not on file documented as of this encounter Plan of Treatment Not on file documented as of this encounter Procedures Procedure Name Priority Date/Time Associated Diagnosis Comments CYTOPATHOLOGY Routine 08/04/2007 0:00 EDT documented in this encounter Results * CYTOPATHOLOGY (08/04/2007 0:00 EDT) Pathology Report: CYTOPATHOLOGY REPORT Reports generated via electronic interface contain original data; however they are lacking the format of the original report. Caution should be taken when reading/interpreti ng unformatted reports. Name: ? LEANDRA AREVALO ? Accession #: ? [id number] : ? 1980 (Age: 27) ??F ?Collect Date: ? 08/04/2007 Location: ? [facility] ? Receive Date: ? 08/05/2007 Provider: ?AVEYR GAINES Copy to: ? Specimen/Source: ?ThinPrep Pap Test, Endocervix, processed on [employer] ThinPrep Imaging System, with manual evaluation Last Menstrual Period: ? 07/21/07 Hormonal/Contracep tive Status: ? Tubal ligation Other: ? HPVA - HPV testing requested if ASC-US on the current ThinPrep Pap test. ? SPECIMEN ADEQUACY ? Satisfactory for Evaluation - transformation zone component present GENERAL CATEGORIZATION ? Negative for Intraepithelial Lesion or Malignancy ? Document reviewed and electronically signed by: ? Kan Gomez, CHERELLE(ASCP) ? Report Date: ??08/11/2007 14:02 End of Report BUDDY SANTANA 08/04/2007 08/05/2007 Avery GAINES PATHOLOGY ORDERABLES [facility] [address] [place] [address] documented in this encounter Visit Diagnoses Not on filedocumented in this encounter Care Teams Minibus Driver Relationship Specialty Start Date End Date Gatito Crawford MD PCP - General 05/09/09 09/10/13 documented as of this encounter
--- OUTSIDE RECORDS SUMMARY | 2024-06-01 06:52 | XMS_ITS | Encounter Summary ---
Author Organization [facility] [place] [address] Care Team Providers Care Maritime Guard Name Role Phone Sree High APRN Primary Care Provider +1- [phone] Encounter Details Date Type Department Care Team (Late st Contact Info) Description 11/07/2023 Telephone [place] [phone] Anni Varela APRN [facility] [address] GENERAL [place] [address] Social History Tobacco Use Types Packs/Day Years Used Date Smoking Tobacco: Never Smokeless Tobacco: Never Alcohol Use Standard Drinks/Week Comments Not Currently 0 (1 standard drink = 0.6 oz pur e alcohol) [facility] Inpatient Questions Answer Date Recorded Does Anyone [...] encounter Miscellaneous Notes * Telephone Encounter - Anni Varela APRN - 11/07/2023 1:45 PM EST Called patient to follow up on RN phone call. No answer, LMTCB if further questions. documented in this encounter Plan of Treatment [...] psychologist to work on eating behaviors Health Hydraulic Rubbish Compactor Mechanic is sending hand-outs with exercises for mindful [...] on filedocumented in this encounter Care Teams Maritime Guard Relationship Specialty Start Date End Date Sree High APRN [address] [place] [address] PCP - General Family Medicine 12/19/22 documented as of this encounter
--- OUTSIDE RECORDS SUMMARY | 2024-06-01 06:52 | XMS_ITS | Encounter Summary ---
Author Organization [facility] [place] [address] Care Team Providers Care Assisted Living Director Name Role Phone Sree High APRN Primary Care Provider [phone]- [phone] Encounter Details Date Type Department Care Team (Latest Contact Info) Description 01/10/2024 12:30 PM EST Laboratory Appointment Lab [address] [place] [id number] S/P gastric bypass; Disorder of iron metabolism Social History Tobacco Use Types Packs/Day Years [...] On track(2021 10:28 AM EST) Jill Colmenares, SUPERVISOR DRAPERY HANGING Note: Mindfulness/deep breathing practice to reduce cortisol -try for at least 10 minutes a day -try an ap such as headspace I have referred you to our psychologist to work on eating behaviors Health Director [employer] is sending hand-outs with exercises for mindful eating, The Pause/STOP and Urge surfing. Patient will review and try implementing some behaviors before we meet again. movement Lifestyle On track(2021 10:29 AM EST) Jill Colmenares, SUPERVISOR DRAPERY HANGING Note: Exercise goal is 150 min a week, just do some walking, even [address] to start Recommend resistance training 3 times a week -can use therabanSnapLayout Nutrition - 09/26/22 Lifestyle On track(2021 10:29 AM EST) Hailee Wetzel, CHANG Note: Nutrition Goals: Continue exercise routine [...] Procedure Name Priority Date/Time Associated Diagnosis Comments HC PARATHYROID HORMONE(PTH INTACT Routine 01/10/2024 12:06 PM EST S/P gastric bypass Disorder of iron metabolism HC HEMOGRAM Routine 01/10/2024 12:06 PM EST S/P gastric bypass Disorder of iron metabolism HC PCH THIAMIN LVL(VITAMIN B1) WB-LEAVITT Routine 01/10/2024 12:06 PM EST S/P gastric bypass Disorder of iron metabolism HC IRON BINDING CAPACITY Routine 01/10/2024 12:06 PM EST S/P gastric bypass Disorder of iron metabolism HC VITAMIN D TOTAL-25 HYDROXY Routine 01/10/2024 12:06 PM EST S/P gastric bypass Disorder of iron metabolism HC FOLATE, SERUM Routine 01/10/2024 12:0 6 PM EST S/P gastric bypass Disorder of iron metabolism HC FERRITIN, SERUM Routine 01/10/2024 12 :06 PM EST S/P gastric bypass Disorder of iron metabolism HC VENIPUNCTURE Routine 01/10/2024 12:06 PM EST S/P gastric bypass COMPREHENSIVE METABOLIC PANEL (NON-FASTING) Routine 01/10/2024 12:06 PM EST S/P gastric bypass Disorder of iron metabolism documented in this encounter Results * (ABNORMAL) Comprehensive metabolic panel (non-fasting) (01/10/2024 12:06 PM EST) Glucose Lvl 82 65 - 199 mg/dL [facility] Comment:Diabetes: >=200 mg/d L plus symptoms BUN 14 8 - 18 mg/dL [facility] Creatinine 0.63(L) 0.70 - 1.20 mg/dL [facility] Sodium 139 135 - 145 mmol/L [facility] Potassium 3.8 3.5 - 5.0 mmol/L [facility] Comment: Please note: ??Patients with WBC >100,000 may have falsely elevated Potassium levels. ??For accurate Potassium quantification in these patients send serum separator tube (gold top) for subsequent determinations. ??Contact the Clinical Chemistry Laboratory if there are any questions. Chloride 104 98 - 107 mmol/L [facility] CO2 28 22 - 31 mmol/L [facility] Anion Gap 7 5 - 15 mmol/L [facility] Calcium 9.2 8.5 - 10.5 mg/dL [facility] Total Protein 6.6 6.1 - 8.0 g/dL [facility] Albumin 4.4 3.2 - 5.2 g/dL [facility] AST 30 0 - 30 unit/L [facility] ALT 39(H) 0 - 30 unit/L [facility] Alk Phos 94 35 - 105 unit/L [facility] Total Bilirubin 0.6 0.2 - 1.3 mg/dL [facility] Estimated GFR 111 >=60 mL/min/1. 73 m?? [facility] Comment: This patient's estimated GFR was [...] Comment Spec In Lab Anni E Nichole SUPERVISOR DRAPERY HANGING CHEMISTRY ORDERABL ES Performing Organization Address [facility]/ZIP Co de Phone Number [facility] [place] [address] * (ABNORMAL) Ferritin (01/10/2024 12:06 PM EST) Ferritin 317(H) 6 - 175 ng/mL [facility] Comment: Please note that as of 10/23/2023, the reference intervals for Ferritin have been updated. Blood 01/10/2024 12:0 6 PM EST 01/10/2024 12:17 PM EST Narrative Resulting Agency Comment Spec In Lab Anni E Nichole SUPERVISOR DRAPERY HANGING CHEMISTRY ORDERABL ES Performing Organization Address [facility] Co de Phone Number [facility] [place] [address] * Folate, serum (01/10/2024 12:06 PM EST) Pathologist [facility] Folate Lvl 14.5 4.8 - 24.2 ng/mL [facility] Blood 01/10/2024 12:0 6 PM EST 01/10/2024 12:17 PM EST Narrative Resulting Agency Comment Spec In Lab Anni E Sebring SUPERVISOR [employer]APERY HANGING CHEMISTRY ORDERABL ES Performing Organization Address City/[facility]/ZIP Co de Phone Number [facility] [place] [address] * (ABNORMAL) Hemogram (01/10/2024 12:06 PM EST) WBC 5.4 4.0 - 9.5 x10(3)/[facility] RBC 3.67(L) 4.00 - 5.21 x10(6)/[facility] Hemoglobin 11.3(L) 11.7 - 15.5 g/dL [facility] Hematocrit 32.8(L) 35.7 - 45.8 % [facility] MCV 89.4 82.6 - 94.4 fL [facility] MCH 30.8 27.1 - 32.0 pg [facility] MCHC 34.5 31.7 - 35.0 g/dL [facility] Platelets 291 145 - 357 x10(3)/[facility] RDWSD 42.4 37.0 - 46.0 fL [facility] RDWCV 12.9 11.5 - 14.1 % [facility] MPV 9.6 7.6 - 12.9 fL [facility] nRBC % Auto 0.0 % [facility] nRBC Abs Auto 0.000 0.000 - 0.000 x10(3)/[facility] Blood 01/10/2024 12:0 6 PM EST 01/10/2024 12:17 PM EST Narrative Resulting Agency Comment Spec In Lab Anni E Nichole SUPERVISOR [employer]APERY HANGING HEMATOLOGY ORDERAB LES Performing Organization Address City/[facility]/ZIP Co de Phone Number [facility] [place] [address] * (ABNORMAL) Iron and TIBC (01/10/2024 12:06 PM EST) Pathologist [facility] Iron 119 30 - 150 mcg/dL [facility] TIBC 245(L) 250 - 450 mcg/dL [facility] Iron Saturation 49 20 - 50 % [facility] Blood 01/10/2024 12:0 6 PM EST 01/10/2024 12:17 PM EST Narrative Resulting Agency Comment Spec In Lab Anni E Sebring SUPERVISOR [employer] HANGING CHEMISTRY ORDERABL ES Performing Organization Address City/[facility]/ZIP Co de Phone Number [facility] [place] [address] * PTH (01/10/2024 12:06 PM EST) Pathologist [facility] PTH 45 15 - 65 pg/mL [facility] Blood 01/10/2024 12:0 6 PM EST 01/10/2024 12:17 PM EST Narrative Resulting Agency Comment Spec In Lab Anni Ortega Nichole SUPERVISOR DRAPERY HANGING CHEMISTRY ORDERABL ES Performing Organization Address [facility] Co de Phone Number [facility] [place] [address] * Vitamin B1, whole blood (01/10/2024 12:06 PM EST) Vit B1 Lvl WB 160 70 - 180 nmol/L [facility] Comment: ADDITIONAL INFORMATION This test was developed and its performance characteristics determined by [facility] in a manner consistent with CLIA requirements. This test has not been cleared or approved by the U.S. Food and Drug Administration. Test Performed by: [facility] - [address] [address] Crossbar Switch Adjuster: Erlin Orlando M.D. Ph.D.; CLIA# [id number] Blood 01/10/2024 12:0 6 PM EST 01/10/2024 1:47 PM EST Narrative Resulting Agency Comment Spec In Lab Anni Varela SUPERVISOR DRAPERY HANGING CHEMISTRY ORDERABL ES Performing Organization Address [facility] Co de Phone Number [facility] [place] [address] * Vitamin D, 25-Hydroxy (01/10/2024 12:06 PM EST) 25-OH Vit D Total 37 21 - 100 ng/mL [facility] 25-OH Vit D Interp Sufficient [facility] Blood 01/10/2024 12:0 6 PM EST 01/10/2024 12:17 PM EST Narrative Resulting Agency Comment Spec In Lab Anni E Nichole SUPERVISOR DRAPERY HANGING CHEMISTRY ORDERABL ES Performing Organization Address City/[facility]/ZIP Co de Phone Number [facility] [place] [address] * (ABNORMAL) Vitamin B12 (01/10/2024 12:06 PM EST) Vitamin B-12 1,314(H) 232 - 1,245 pg/mL [facility] Blood 01/10/2024 12:0 6 PM EST 01/10/2024 12:17 PM EST Narrative Resulting Agency Comment Spec In Lab Anni Varela APRN CHEMISTRY ORDERABL ES Performing Organization Address [facility] Co de Phone Number [facility] [place] [address] documented in this encounter Visit Diagnoses Diagnosis S/P gastric bypass Bariatric surgery status Disorder of iron metabolism Other disorders of iron metabolism documented in this encounter Care Teams Assisted Living Director Relationship Specialty Start Date End Date Sree High APRN [address] [place] [address] PCP - General Family Medicine 12/19/22 documented as of this encounter
--- OUTSIDE RECORDS SUMMARY | 2024-06-01 06:52 | XMS_ITS | Encounter Summary ---
Author Organization [facility] [place] [address] Care Team Providers Care Train Caller Name Role Phone Sree High APRN Primary Care Provider [phone]- [phone] Encounter Details Date Type Department Care Team (Latest Contact Info) Description 04/02/2024 1:38 PM EDT - 04/02/2024 11:59 PM EDT Hospital Encounter XRay at [address] [place] [address] Anni Varela CASE MANAGEMENT ASSISTANT [facility] [place] [address] Epigastric pain; S/P gastric bypass Discharge Disposition: Home Social History Tobacco Use Types Packs/Day Years Used Date Smoking Tobacco: Never Smokeless Tobacco: Never Alcohol Use Standard Drinks/Week Comments Not Currently 0 (1 standard drink = 0.6 oz pur e alcohol) [facility] Inpatient Questions Answer Date Recorded Does [...] On track(2021 10:28 AM EST) Jill Colmenares, CASE MANAGEMENT ASSISTANT Note: Mindfulness/deep breathing practice to reduce cortisol -try for at least 10 minutes a day -try an ap such as headspace I have referred you to our psychologist to work on eating behaviors Health Garbage Worker is sending hand-outs with exercises for mindful eating, The Pause/STOP and Urge surfing. Patient will review and try implementing some behaviors before we meet again. movement Lifestyle On track(2021 10:29 AM EST) Jill Colmenares, CASE MANAGEMENT ASSISTANT Note: Exercise goal is 150 min a [...] Procedure Name Priority Date/Time Associated Diagnosis Comments XR FLUORO UPPER GI DOUBLE CONTRAST WO KUB Routine 04/02/2024 2:43 PM EDT Epigastric pain S/P gastric bypass documented in this encounter Results * XR Fluoro Upper GI Double Contrast wo KUB (04/02/2024 2:43 PM EDT) WORKSTATION ID [id number] RAD Anatomical Region Laterality Modality N/A Radio [...] who have questions please contact the health senior resident care director that requested your imaging first. ? Electronically signed by: Kathleen Sorto MD, [facility] ([phone]), at 04/02/2024 4:08 PM Narrative 04/02/2024 4:08 PM EDT EXAMINATION: XR [...] patients who have questions please contactthe health senior resident care director that requested your imaging first. Electronically signed by: Kathleen Sorto MD, [facility]([phone]), at 04/02/2024 4:08 PM Anni Varela APRN IMG FLUORO ORDERAB LES documented in this encounter Visit Diagnoses Diagnosis Epigastric pain Abdominal pain, epigastric S/P gastric bypass Bariatric surgery status documented in this encounter Administered Medications Inactive Administered Medications - up to 3 most recent administrations Medication Order MAR Action Action Date Dose Rate Site barium sulfate (E-Z Disk) tablet 0-700 mg 0-700 mg, Oral, ONCE PRN, 1 dose, Starting on Char 04/02/24 at 1355, Until Char 04/02/24 at 1434, Per Protocol, Radiology Contrast, Routine Given 04/02/2024 2:34 PM EDT 700 mg barium sulfate (E-Z-HD) 98% oral liquid 0-120 mL 0-120 mL, Oral, ONCE PRN, 1 dose, Starting on Char 04/02/24 at 1355, Until Char 04/02/24 at 1435, Per Protocol, Radiology Contrast, Routine Given 04/02/2024 2:35 PM EDT 120 mLs barium sulfate (Ezpaque) 60% (w/v) oral liquid 0-710 mL 0-710 mL, Oral, ONCE PRN, 1 dose, Starting on Char 04/02/24 at 1355, Until Char 04/02/24 at 1434, Per Protocol, Radiology Contrast, Routine Given 04/02/2024 2:34 PM EDT 150 mLs documented in this encounter Care Teams Train Caller Relationship Specialty Start Date End Date Sree High APRN [address] [place] [address] PCP - General Family Medicine 12/19/22 documented as of this encounter
--- OUTSIDE RECORDS SUMMARY | 2024-06-01 06:52 | XMS_ITS | Encounter Summary ---
Author Organization [facility] [place] [address] Care Team Providers Care Relationship Specialist Name Role Phone Sree High APRN Primary Care Provider +1- [phone] Encounter Details Date Type Department Care Team (Late st Contact Info) Description 12/20/2023 [place] [phone] Eugenia Styles RN Social History Tobacco Use Types Packs/Day [...] encounter Miscellaneous Notes * Telephone Encounter - Eugenia Styles RN - 12/20/2023 9:57 AM EST Attempt to reach patient to schedule the MRI (cholangiopancreatography) that was ordered on 07/23/[address] Yen (1-year follow-up; due March 2024). LVM asking patient to call the MRI Dept to schedule imaging. documented in this encounter Plan of Treatment [...] Lifestyle On track(2021 10:28 AM EST) Jill Colmenarse APRN Note: Mindfulness/deep breathing practice to reduce cortisol -try for at least 10 minutes a day -try an ap such as headspace I have referred you to our psychologist to work on eating behaviors Health [employer] is sending hand-outs with exercises for mindful [...] on filedocumented in this encounter Care Teams Relationship Specialist Relationship Specialty Start Date End Date Sree High APRN [address] [place] [address] PCP - General Family Medicine 12/19/22 documented as of this encounter
--- OUTSIDE RECORDS SUMMARY | 2024-06-01 06:53 | XMS_ITS | Encounter Summary ---
Author Organization [facility] [place] [address] Care Team Providers Care Tobacco Farmworker Name Role Phone Sree High APRN Primary Care Provider [phone]- [phone] Encounter Details Date Type Department Care Team (Latest Contact Info) Description 08/30/2023 3:30 PM EDT Laboratory Appointment Lab [address] [place] [id number] S/P gastric bypass; Disorder of iron metabolism; Biliary stricture; Post-operative nausea and vomiting; Status post gastric bypass for obesity Social History Tobacco Use Types Packs/Day Years Used Date Smoking Tobacco: Never Smokeless Tobacco: Never Alcohol Use Standard Drinks/Week Comments Not Currently 0 (1 standard drink = 0.6 oz pur e alcohol) IPV Inpatient Questions Answer Date Recorded Does Anyone Try to Keep You From Having Contact with Others or Doing Things Outside Your Home? no 03/18/2023 Feels Threatened by Someone no 05/0 11/2022 Feels Unsafe at Home or Work/School [...] On track(2021 10:28 AM EST) Jill Colmenares, BRIM BLOCKER Note: Mindfulness/deep breathing practice to reduce cortisol -try for at least 10 minutes a day -try an ap such as headspace I have referred you to our psychologist to work on eating behaviors [employer] is sending hand-outs with exercises for mindful eating, The Pause/STOP and Urge surfing. Patient will review and try implementing some behaviors before we meet again. movement Lifestyle On track(2021 10:29 AM EST) Jill Colmenares, BRIM BLOCKER Note: Exercise goal is 150 min a [...] Diagnosis Comments HC PARATHYROID HORMONE(PTH INTACT Routine 08/30/2023 3:36 PM EDT Post-operative nausea and vomiting Status post gastric bypass for obesity BILIRUBIN, DIRECT Routine 08/30/2023 3:3 6 PM EDT HC VENIPUNCTURE Routine 08/30/2023 3:36 PM EDT S/P gastric bypass Disorder of iron metabolism HC PCH THIAMIN LVL(VITAMIN B1) WB-LEAVITT Routine 08/30/2023 3:36 PM EDT S/P gastric bypass Disorder of iron metabolism HC IRON BINDING CAPACITY Routine 08/30/2023 3:36 PM EDT Post-operative nausea and vomiting Status post gastric bypass for obesity HC VITAMIN D TOTAL-25 HYDROXY Routine 08/30/2023 3:36 PM EDT Post-operative nausea and vomiting Status post gastric bypass for obesity HC PREALBUMIN, SERUM Routine 08/30/2023 3:36 PM EDT Post-operative nausea and vomiting Status post gastric bypass for obesity HC FOLATE, SERUM Routine 08/30/2023 3:36 PM EDT Post-operative nausea and vomiting Status post gastric bypass for obesity HC FERRITIN, SERUM Routine 08/30/2023 3: 36 PM EDT S/P gastric bypass Disorder of iron metabolism HC VITAMIN B12 SERUM Routine 08/30/2023 3:36 PM EDT Post-operative nausea and vomiting Status post gastric bypass for obesity COMPREHENSIVE METABOLIC PANEL (NON-FASTING) Routine 08/30/2023 3:36 PM EDT S/P gastric bypass Disorder of iron metabolism documented in this encounter Results * Bilirubin, Direct (08/30/2023 3:36 PM EDT) Bili, Direct 0.1 0.0 - 0.3 mg/dL [facility] Blood 08/30/2023 3:36 PM EDT 08/30/2023 3:49 PM EDT Narrative Resulting Agency Comment Spec In Lab Sunshine Yen MD CHEMISTRY ORDERABLES Performing Organization Address City/[facility]/ZIP Co de Phone Number [facility] [place] [address] * Folate, serum (08/30/2023 3:36 PM EDT) [facility] Folate Lvl 10.6 4.8 - 24.2 ng/mL [facility] Blood 08/30/2023 3:36 PM EDT 08/30/2023 3:49 PM EDT Narrative Resulting Agency Comment Spec In Lab Iram Borrero MD CHEMISTRY ORDERABLES Performing Organization Address City/[facility]/ZIP Co de Phone Number [facility] [place] [address] * (ABNORMAL) Iron and TIBC (08/30/2023 3:36 PM EDT) Pathologist [facility] Iron 52 30 - 150 mcg/dL [facility] TIBC 270 250 - 450 mcg/dL [facility] Iron Saturation 19(L) 20 - 50 % [facility] Blood 08/30/2023 3:36 PM EDT 08/30/2023 3:49 PM EDT Narrative Resulting Agency Comment Spec In Lab Iram Borrero MD CHEMISTRY ORDERABLES [facility] [place] [address] * PTH (08/30/2023 3:36 PM EDT) PTH 46 15 - 65 pg/mL [facility] Blood 08/30/2023 3:36 PM EDT 08/30/2023 3:49 PM EDT Narrative Resulting Agency Comment Spec In Lab Iram Borrero MD CHEMISTRY ORDERABLES [facility] [place] [address] * Vitamin D, 25-Hydroxy (08/30/2023 3:36 PM EDT) 25-OH Vit D Total 36 21 - 100 ng/mL [facility] 25-OH Vit D Interp Sufficient [facility] Blood 08/30/2023 3:36 PM EDT 08/30/2023 3:49 PM EDT Narrative Resulting Agency Comment Spec In Lab Iram Borrero MD CHEMISTRY ORDERABLES Performing Organization Address City/[facility]/ZIP Co de Phone Number [facility] [place] [address] * Vitamin B12 (08/30/2023 3:36 PM EDT) Vitamin B-12 538 232 - 1,245 pg/mL [facility] Blood 08/30/2023 3:36 PM EDT 08/30/2023 3:49 PM EDT Narrative Resulting Agency Comment Spec In Lab Iram Borrero MD CHEMISTRY ORDERABLES Performing Organization Address City/[facility]/ZIP Co de Phone Number [facility] [place] [address] * (ABNORMAL) Prealbumin (08/30/2023 3:36 PM EDT) Prealbumin 17(L) 20 - 40 mg/dL [facility] Comment: Prealbumin levels are generally lower in the pediatric population; adult concentrations are usually attained near puberty. Blood 08/30/2023 3:36 PM EDT 08/30/2023 3:49 PM EDT Narrative Resulting Agency Comment Spec In Lab Iram Borrero MD CHEMISTRY ORDERABLES Performing Organization Address [facility] de Phone Number [facility] [place] [address] * Vitamin B1, whole blood (08/30/2023 3:36 PM EDT) [facility] Vit B1 Lvl WB 85 70 - 180 nmol/L [facility] Comment: ADDITIONAL INFORMATION This test was developed and its performance characteristics determined by [facility] in a manner consistent with CLIA requirements. This test has not been cleared or approved by the U.S. Food and Drug Administration. Test Performed by: [facility] [place] [address] Marketing Production Coordinator: Erlin Orlando M.D. Ph.D.; CLIA# [id number] Blood 08/30/2023 3:36 PM EDT 09/02/2023 12:10 PM EDT Narrative Resulting Agency Comment Spec In Lab Anni Varela APRN CHEMISTRY ORDERABL ES Performing Organization Address [facility] Co de Phone Number [facility] [place] [address] * (ABNORMAL) Ferritin (08/30/2023 3:36 PM EDT) [facility] Ferritin 277(H) 15 - 150 ng/mL [facility] Comment: Pediatric reference ranges not verified at [facility], interpret with caution. Reference ranges for females greater than 50 years of age approach values for men, i.e., 30-400 ng/mL. Blood 08/30/2023 3:36 PM EDT 08/30/2023 3:49 PM EDT Narrative Resulting Agency Comment Spec In Lab Anni Varela BRYANNA CHEMISTRY ORDERABL ES [facility] [place] [address] * (ABNORMAL) Comprehensive metabolic panel (non-fasting) (08/30/2023 3:36 PM EDT) Glucose Lvl 82 65 - 199 mg/dL [facility] Comment:Diabetes: >=200 mg/d L plus symptoms BUN 16 8 - 18 mg/dL [facility] Creatinine 0.65(L) 0.70 - 1.20 mg/dL [facility] Sodium 140 135 - 145 mmol/L [facility] Potassium 3.3(L) 3.5 - 5.0 mmol/L [facility] Comment: Please note: ??Patients with WBC >100,000 may have falsely elevated Potassium levels. ??For accurate Potassium quantification in these patients send serum separator tube (gold top) for subsequent determinations. ??Contact the Clinical Chemistry Laboratory if there are any questions. Chloride 103 98 - 107 mmol/L [facility] CO2 28 22 - 31 mmol/L [facility] Anion Gap 9 5 - 15 mmol/L [facility] Calcium 9.4 8.5 - 10.5 mg/dL [facility] Total Protein 6.7 6.1 - 8.0 g/dL [facility] Albumin 4.3 3.2 - 5.2 g/dL [facility] AST 20 0 - 30 unit/L [facility] ALT 24 0 - 30 unit/L [facility] Alk Phos 103 35 - 105 unit/L [facility] Total Bilirubin 0.5 0.2 - 1.3 mg/dL [facility] Estimated GFR 111 >=60 mL/min/1. 73 m?? [facility] Comment: This patient's estimated [...] and symptoms in addition to eGFR. Blood 08/30/2023 3:36 PM EDT 08/30/2023 3:49 PM EDT Narrative Resulting Agency Comment Spec In Lab Anni E Nichole GOULD CHEMISTRY ORDERABL ES [facility] [place] [address] * (ABNORMAL) Hemogram (08/30/2023 3:36 PM EDT) WBC 8.0 4.0 - 9.5 x10(3)/[facility] RBC 4.03 4.00 - 5.21 x10(6)/[facility] Hemoglobin 12.1 11.7 - 15.5 g/dL [facility] Hematocrit 35.4(L) 35.7 - 45.8 % [facility] MCV 87.8 82.6 - 94.4 fL [facility] MCH 30.0 27.1 - 32.0 pg [facility] MCHC 34.2 31.7 - 35.0 g/dL [facility] Platelets 334 145 - 357 x10(3)/[facility] RDWSD 45.0 37.0 - 46.0 fL [facility] RDWCV 14.0 11.5 - 14.1 % [facility] MPV 10.2 7.6 - 12.9 fL [facility] nRBC % Auto 0.0 % [facility] nRBC Abs Auto 0.000 0.000 - 0.000 x10(3)/mcL [facility] Blood 08/30/2023 3:36 PM EDT 08/30/2023 3:49 PM EDT Narrative Resulting Agency Comment Spec In Lab Anni E Nichole BRIM BLOCKER HEMATOLOGY ORDERAB LES [facility] [place] [address] documented in this encounter Visit Diagnoses Diagnosis S/P gastric bypass Bariatric surgery status Disorder of iron metabolism Other disorders of iron metabolism Biliary stricture Obstruction of bile duct Post-operative nausea and vomiting Nausea with vomiting Status post gastric bypass for obesity Bariatric surgery status documented in this encounter Care Teams Tobacco Farmworker Relationship Specialty Start Date End Date Sree Hgih APRN [address] [place] [address] PCP - General Family Medicine 12/19/22 documented as of this encounter
--- OUTSIDE RECORDS SUMMARY | 2024-06-01 06:53 | XMS_ITS | Encounter Summary ---
Author Organization [facility] [place] [address] Care Team Providers Care Securities Lending Trader Name Role Phone Sree High APRN Primary Care Provider [phone]- [phone] Encounter Details Date Type Department Care Team (Latest Contact Info) Description 04/26/2023 3:00 PM EDT Laboratory Appointment Lab [address] [place] [phone] S/P gastric bypass; Disorder of iron metabolism [...] sleep Lifestyle On track(2021 10:29 AM EST) No Jill Farooq, BRYANNA Note: Follow up with sleep, do sleep study. Goal 7 hours of sleep nightly. Recommend consistent sleep and wake times, avoid electronics within one hour of sleep time stress management Lifestyle On track(2021 10:28 AM EST) Jill Colmenares, RESTAURANT HOST Note: Mindfulness/deep breathing practice to reduce cortisol -try for at least 10 minutes a day -try an ap such as headspace I have referred you to our psychologist to work on eating behaviors [employer] is sending hand-outs with exercises for mindful eating, The Pause/STOP and Urge surfing. Patient will review and try implementing some behaviors before we meet again. movement Lifestyle On track(2021 10:29 AM EST) Jill Colmenares, RESTAURANT HOST Note: Exercise goal is 150 min a [...] Diagnosis Comments HC PARATHYROID HORMONE(PTH INTACT Routine 04/26/2023 3:07 PM EDT S/P gastric bypass Disorder of iron metabolism HC HEMOGRAM Routine 04/26/2023 3:07 PM EDT S/P gastric bypass Disorder of iron metabolism HC PCH THIAMIN LVL(VITAMIN B1) WB-LEAVITT Routine 04/26/2023 3:07 PM EDT S/P gastric bypass Disorder of iron metabolism HC IRON BINDING CAPACITY Routine 04/26/2023 3:07 PM EDT S/P gastric bypass Disorder of iron metabolism HC VENIPUNCTURE Routine 04/26/2023 3:07 PM EDT S/P gastric bypass Disorder of iron metabolism HC FOLATE, SERUM Routine 04/26/2023 3:07 PM EDT S/P gastric bypass Disorder of iron metabolism HC FERRITIN, SERUM Routine 04/26/2023 3: 07 PM EDT S/P gastric bypass Disorder of iron metabolism HC VITAMIN B12 SERUM Routine 04/26/2023 3:07 PM EDT S/P gastric bypass Disorder of iron metabolism COMPREHENSIVE METABOLIC PANEL (NON-FASTING) Routine 04/26/2023 3:07 PM EDT S/P gastric bypass Disorder of iron metabolism documented in this encounter Results * (ABNORMAL) Comprehensive metabolic panel (non-fasting) (04/26/2023 3:07 PM EDT) Glucose Lvl 85 65 - 199 mg/dL [facility] Comment:Diabetes: >=200 mg/d L plus symptoms BUN 8 8 - 18 mg/dL [facility] Creatinine 0.52(L) 0.70 - 1.20 mg/dL [facility] Sodium 140 135 - 145 mmol/L [facility] Potassium 3.0(Criti royal) 3.5 - 5.0 mmol/L [facility] Comment: Called by: ghazal, Read back by: vinicio varela, Date/Time:04/26/23 16:34. Please note: ??Patients with WBC >100,000 may have falsely elevated Potassium levels. ??For accurate Potassium quantification in these patients send serum separator tube (gold top) for subsequent determinations. ??Contact the Clinical Chemistry Laboratory if there are any questions. Chloride 102 98 - 107 mmol/L [facility] CO2 25 22 - 31 mmol/L [facility] Anion Gap 13 5 - 15 mmol/L [facility] Calcium 9.8 8.5 - 10.5 mg/dL [facility] Total Protein 7.2 6.1 - 8.0 g/dL [facility] Albumin 4.5 3.2 - 5.2 g/dL [facility] AST 33(H) 0 - 30 unit/L [facility] ALT 40(H) 0 - 30 unit/L [facility] Alk Phos 120(H) 35 - 105 unit/L [facility] Total Bilirubin 0.6 0.2 - 1.3 mg/dL [facility] Estimated GFR 117 >=60 mL/min/1. 73 m?? [facility] Comment: This patient's [...] and symptoms in addition to eGFR. Blood 04/26/2023 3:07 PM EDT 04/26/2023 3:25 PM EDT Narrative Resulting Agency Comment Spec In Lab Vinicio E Ramsey RESTAURANT HOST CHEMISTRY ORDERABL ES Performing Organization Address [facility] Co de Phone Number [facility] [place] [address] * (ABNORMAL) Ferritin (04/26/2023 3:07 PM EDT) Ferritin 366(H) 15 - 150 ng/mL [facility] Comment: Pediatric reference ranges not verified at [facility], interpret with caution. Reference ranges for females greater than 50 years of age approach values for men, i.e., 30-400 ng/mL. Blood 04/26/2023 3:07 PM EDT 04/26/2023 3:25 PM EDT Narrative Resulting Agency Comment Spec In Lab Vinicio E Ramsey RESTAURANT HOST CHEMISTRY ORDERABL ES Performing Organization Address [facility] Co de Phone Number [facility] [place] [address] * Folate, serum (04/26/2023 3:07 PM EDT) Folate Lvl 6.8 4.8 - 24.2 ng/mL [facility] Blood 04/26/2023 3:07 PM EDT 04/26/2023 3:25 PM EDT Narrative Resulting Agency Comment Spec In Lab Vinicio E Ramsey RESTAURANT HOST CHEMISTRY ORDERABL ES Performing Organization Address [facility] Co de Phone Number [facility] [place] [address] * Iron and TIBC (04/26/2023 3:07 PM EDT) Iron 73 30 - 150 mcg/dL [facility] TIBC 287 250 - 450 mcg/dL [facility] Iron Saturation 25 20 - 50 % [facility] Blood 04/26/2023 3:07 PM EDT 04/26/2023 3:25 PM EDT Narrative Resulting Agency Comment Spec In Lab Vinicio E Ramsey RESTAURANT HOST CHEMISTRY ORDERABL ES [facility] [place] [address] * (ABNORMAL) Hemogram (04/26/2023 3:07 PM EDT) WBC 6.8 4.0 - 9.5 x10(3)/[facility] RBC 4.45 4.00 - 5.21 x10(6)/[facility] Hemoglobin 13.2 11.7 - 15.5 g/dL [facility] Hematocrit 38.9 35.7 - 45.8 % [facility] MCV 87.4 82.6 - 94.4 fL [facility] MCH 29.7 27.1 - 32.0 pg [facility] MCHC 33.9 31.7 - 35.0 g/dL [facility] Platelets 458(H) 145 - 357 x10(3)/[facility] RDWSD 47.7(H) 37.0 - 46.0 [facility] RDWCV 14.7(H) 11.5 - 14.1 % [facility] MPV 9.8 7.6 - 12.9 [facility] nRBC % Auto 0.0 % [facility] nRBC Abs Auto 0.000 0.000 - 0.000 x10(3)/[facility] Blood 04/26/2023 3:07 PM EDT 04/26/2023 3:25 PM EDT Narrative Resulting Agency Comment Spec In Lab Vinicio E Ramsey RESTAURANT HOST HEMATOLOGY ORDERAB LES Performing Organization Address City/[facility]/ZIP Co de Phone Number [facility] [place] [address] * PTH (04/26/2023 3:07 PM EDT) PTH 41 15 - 65 pg/mL [facility] Blood 04/26/2023 3:07 PM EDT 04/26/2023 3:26 PM EDT Narrative Resulting Agency Comment Spec In Lab Vinicio Varela RESTAURANT HOST CHEMISTRY ORDERABL ES Performing Organization Address [facility] Co de Phone Number [facility] [place] [address] * Vitamin B1, whole blood (04/26/2023 3:07 PM EDT) Vit B1 Lvl WB 94 70 - 180 nmol/L [facility] Comment: ADDITIONAL INFORMATION This test was developed and its performance characteristics determined by [facility] in a manner consistent with CLIA requirements. This test has not been cleared or approved by the U.S. Food and Drug Administration. Test Performed by: [facility] - [address] [address] Counselor Camp: Erlin Orlando M.D. Ph.D.; CLIA# [id number] Blood 04/26/2023 3:07 PM EDT 04/26/2023 4:15 PM EDT Narrative Resulting Agency Comment Spec In Lab Vinicio Moraleslding RESTAURANT HOST CHEMISTRY ORDERABL ES Performing Organization Address [facility] Co de Phone Number [facility] [place] [address] * Vitamin B12 (04/26/2023 3:07 PM EDT) Vitamin B-12 631 232 - 1,245 pg/mL [facility] Blood 04/26/2023 3:07 PM EDT 04/26/2023 3:25 PM EDT Narrative Resulting Agency Comment Spec In Lab Vinicio E Nichole RESTAURANT HOST CHEMISTRY ORDERABL ES Performing Organization Address [facility]/ZIP Co de Phone Number [facility] [place] [address] * Vitamin D, 25-Hydroxy (04/26/2023 3:07 PM EDT) 25-OH Vit D Total 41 21 - 100 ng/mL [facility] 25-OH Vit D Interp Sufficient [facility] Blood 04/26/2023 3:07 PM EDT 04/26/2023 3:25 PM EDT Narrative Resulting Agency Comment Spec In Lab Vinicio E Nichole RESTAURANT HOST CHEMISTRY ORDERABL ES Performing Organization Address [facility] Co de Phone Number [facility] [place] [address] documented in this encounter Visit Diagnoses Diagnosis S/P gastric bypass Bariatric surgery status Disorder of iron metabolism Other disorders of iron metabolism documented in this encounter Care Teams Securities Lending Trader Relationship Specialty Start Date End Date Sree High APRN [address] [place] [address] PCP - General Family Medicine 12/19/22 documented as of this encounter
--- OUTSIDE RECORDS SUMMARY | 2024-06-01 06:53 | XMS_ITS | Encounter Summary ---
Author Organization [facility] Address [facility] [place] [address] Care Team Providers Care Court Administrator Name Role Phone Sree High APRN Primary Care Provider +1- [phone] Reason for Referral * Physical Therapy (Routine) - Authorized Specialty Diagnoses / Procedures Referred By Chela t Referred To Contact Physical Therapy Diagnoses Dysequilibrium Balance problem Pito Hess PA [facility] [place] [address] [facility] [place] [address] Referral ID Status Reason Start Date Expiration Date Visits Requested Visits Authorized [id number] Authorized Evaluate and Treat 09/24/2023 09/23/2024 30 30 Reason for Visit * Reason Comments Vertigo Patient reports of o ngoing dizziness for a few months now. She said it never really goes away. She does have loss of balance and has double vision. No issues with ringing in her ears Encounter Details Date Type Department Care Team (Late st Contact Info) Description 09/24/2023 2:40 PM EST Office [place] [phone] Pito Hess PA [facility] [address] Dysequilibrium; Balance problem Social History Tobacco Use Types Packs/Day Years [...] Sign Reading Time Taken Comments Blood Pressure 135/87 09/24/2023 2:43 PM EST Pulse 77 09/24/2023 2:43 PM EST Temperature - - Respiratory Rate 16 09/24/2023 2:43 PM EST Oxygen Saturation 100% 09/24/2023 2:43 PM EST Inhaled Oxygen Concentration - - Weight - - Height - - Body Mass Index - - documented in this encounter Progress Notes * Pito Hess PA - 09/24/2023 2:40 PM EST [facility] Pito Hess PA-C 09/24/23 3:33 PM [place], [place] [address] Office Patient Name: Leandra Wilks Date of : 1980 PCP: Sree High APRN Chief Complaint: Dizziness This patient is seen in consult today at the request of their primary caregiver and the referring provider, Joan Solorzano HPI: Leandra Wilks is a 43 y.o. female who presents to clinic with a chief complaint of dizziness Patient reports clinic discuss her nearly 2-month history of dizziness. She reports dizziness started when she was admitted to the hospital for nutrition deficiency status post bariatric surgery. Shereports having low blood sugar and being administered a dose of glucose when shortly after she started to experience a dizziness described as vertigo or spinning sensation. She cannot recall exactly how long this initial episode lasted but eventually did resolve and she continued to feel a dizziness sensation described as moses/wavy. Since this time she has a constant sensation of the Moses wavy sensation with periodic exacerbations of vertigo. These exacerbations occur 1-2 times daily. Thereis no obvious or consistent trigger for these episodes. They will last approximately 20 to 30 minutes and then resolve. She has no concerns with hearing loss or tinnitus in general or during these episodes. After vertigo resolves she is left with her constant baseline rocking/wavy sensation. She has never felt completely back to normal since symptoms started 2 months ago. She also reports a constant double vision that started at the same time as her other symptoms. She has been evaluated by heroptometrist. Per her report she was told she had nystagmus but no other obvious eye pathology. She does have a history of migraine headaches prior to symptom onset. She takes Emgality and propanolol for these. She will often have a vertigo episode when she is having a headache but this is not every time and she is experience vertigo with no headache as well. Denies ear pain, drainage, recurrent ear infections, ear surgeries, head trauma. No past medical history on file. No family history on file. Social History Tobacco Use Smoking status: Never Smokeless tobacco: Never Vaping Use Vaping Use: Never used Substance Use Topics Alcohol use: Not Currently Drug use: Not Currently No outpatient medications have been marked as taking for the 09/24/23 encounter (Office Visit) with Pito Hess PA. Physical Exam Constitutional: she is oriented to person, place, and time. she appears well- developed and well-nourished. Head: Normocephalic and atraumatic. Head is without abrasion and without contusion. Hair is normal. Ears: External ears without deformity. See documentation of otomicroscopy below. Hearing is grossly normal. Nose: No mucosal edema, rhinorrhea, nasal deformity or nasal septal hematoma. No epistaxis. Mouth/Throat: Uvula is midline, oropharynx is clear and moist and mucous membranes are normal. Mucous membranes are not pale and not dry. No oral lesions. No trismus in the jaw. Normal dentition. No uvula swelling. No oropharyngeal exudate, posterior oropharyngeal edema, posterior oropharyngeal erythema or tonsillar abscesses. Neck: Normal range of motion and phonation normal. Neck supple. No tracheal deviation, no edema andno erythema present. No thyroid mass present. Neuro: AOx3; Sharp sensation intact and symmetric bilaterally in all trigeminal branches Masseter strength is equal and symmetrical (CN V) TMJ is non tender Facial Nerve Function is strong and symmetric (CN VII) House-Brackman I Hitselberger Test - no hypoesthesia in either EAC (CNVII) Palate is midline and voice is strong (CN IX & X) Tongue is midline (CN XII) Shoulder elevation is strong and symmetrical (XI) Ocular Exam: Bilateral gaze evoked nystagmus, left greater than right EOMI with smooth pursuit Eyes Closed Rhomberg - stable Tandem Rhomberg -unstable with postural sway and step outs Tandem Gait -unstable with postural sway and step outs Fukuda Test - stable without drift Head Thrust Test: Maintained fixation bilaterally Head Shaking Test: Dizziness and nystagmus present Vero-Hallpike Position-not indicated Procedure Note: Binocular otomicroscopy was performed: Left side: Ear canal clear Tympanic membrane intact and translucent with normal landmarks. Middle ear well aerated Right side: Ear canal clear Tympanic membrane intact and translucent with normal landmarks. Middle ear well aerated Audiogram : Audiogram 09/24/2023 Right-mostly normal save for mild sensorineural hearing loss at 8000 Hz Left-normal hearing Tympanograms: Right- Type A; Left Type A Word discrimination: Right- 100% at 65dB; Left- 100% at 65dB Labs: None Radiology (I personally review the images): MRI brain-no obvious or significant findings and would explain her symptoms CT head-no obvious intracranial processes Assessment: Leandra Wilks is a 43 y.o. female with signs and symptoms most consistent with 2 months of dizziness that started while admitted status post bariatric surgery. She describes her dizziness as a constant sense of disequilibrium with periodic exacerbations of her vertigo. There are no obvious triggers for exacerbations and her baseline dizziness is equal in severity while sitting still, lying down or moving. I discussed with patient that periodic vertigo, lasting 20 minutes without obvious otologic symptoms or measurable hearing loss is highly suggestive of vestibular migraines. Her constant sense of the disequilibrium is not overly consistent with vestibular migraines but is consistent with a central vestibular dysfunction. Her decreased balance on exam today was surprising. For further evaluation I recommended she be evaluated and treated by vestibular physical therapy. Also recommended she reach out to her managing neurologist for further evaluation and treatment of her dizziness. C onsideration was given to obtaining VNG and vHIT testing but due to symptoms being overwhelmingly suggestive of central dysfunction, we agreed to defer these for now. I asked her to return to clinic in 6 months for reevaluation or sooner if symptoms worsen or fail to improve. If still symptomatic at that time we will reconsider audiometric vestibular testing. She was agreeable to this and all questions were answered. SELENA Dodge, MS, PA-[place] [address] phone: [phone] documented in this encounter Plan of Treatment [...] management Lifestyle On track(2021 10:28 AM EST) No Jill Farooq APRN Note: Mindfulness/deep breathing practice to reduce cortisol -try for at least 10 minutes a day -try an ap such as headspace I have referred you to our psychologist to work on eating behaviors Health Automotive Technology Instructor is sending hand-outs with exercises for mindful [...] as of this encounter Visit Diagnoses Diagnosis Dysequilibrium Balance problem Other symptoms involving nervous and musculoskeletal systems documented in this encounter Care Teams Court Administrator Relationship Specialty Start Date End Date Sree High APRN [address] [place] [address] PCP - General Family Medicine 12/19/22 documented as of this encounter
--- OUTSIDE RECORDS SUMMARY | 2024-06-01 06:53 | XMS_ITS | Encounter Summary ---
Author Organization [facility] Address [facility] [place] [address] Care Team Providers Care Leaf Fat Scraper Name Role Phone Sree High APRN Primary Care Provider +1- [phone] Encounter Details Date Type Department Care Team (Latest Contact Info) Description 09/24/2023 Travel Social History Tobacco Use Types Packs/Day [...] Scheduled Procedures Name Priority Associated Diagnoses Date/Ti oh COLONOSCOPY, DIAGNOSTIC (WRV U 3.26) Biliary stricture [...] On track(2021 10:28 AM EST) Jill Colmenares, HEAD CD REACTOR OPERATOR Note: Mindfulness/deep breathing practice to reduce cortisol -try for at least 10 minutes a day -try an ap such as headspace I have referred you to our psychologist to work on eating behaviors Health Physician Relations Manager is sending hand-outs with exercises for mindful eating, The Pause/STOP and Urge surfing. Patient will review and try implementing some behaviors before we meet again. movement Lifestyle On track(2021 10:29 AM EST) Jill Colmenares, HEAD CD REACTOR OPERATOR Note: Exercise goal is 150 min [...] on filedocumented in this encounter Care Teams Leaf Fat Scraper Relationship Specialty Start Date End Date Sree High, HEAD CD REACTOR OPERATOR [address] [place] [address] [address] [facility] [address] [place] [address] PCP - General Family Medicine 12/19/22 documented as of this encounter
--- OUTSIDE RECORDS SUMMARY | 2024-06-01 06:53 | XMS_ITS | Encounter Summary ---
Author Organization [facility] [place] [address] Care Team Providers Care Medical Director Of Hospice Name Role Phone Sree High APRN Primary Care Provider +1- [phone] Encounter Details Date Type Department Care Team ([facility] st Contact Info) Description 10/14/2023 Telephone [place] [phone] Anni Varela APRN [facility] [place] [address] Social History Tobacco Use Types Packs/Day Years Used Date Smoking Tobacco: Never Smokeless Tobacco: Never Alcohol Use Standard Drinks/Week Comments Not Currently 0 (1 standard drink = 0.6 oz pur e alcohol) [facility] Inpatient Questions Answer Date Recorded Does [...] Telephone Encounter - Anni Varela APRN - 10/14/2023 8:45 AM EST Patient no showed for scheduled teleheatlh visit. Attempted to call pt to connect via telephone, unable to reach. Left VM with contact information to re- schedule bariatric surgery follow up. documented in this encounter Plan of Treatment [...] psychologist to work on eating behaviors Health English Division Chair is sending hand-outs with exercises for mindful [...] On track(2021 10:29 AM EST) Hailee Wetzel, RD Note: Nutrition Goals: Continue exercise routine [...] on filedocumented in this encounter Care Teams Medical Director Of Hospice Relationship Specialty Start Date End Date Sree High APRN [address] [place] [address] [address] [place] [address] PCP - General Family Medicine 12/19/22 documented as of this encounter
--- OUTSIDE RECORDS SUMMARY | 2024-06-01 06:53 | XMS_ITS | Encounter Summary ---
Author Organization [facility] Address [facility] [place] [address] Care Team Providers Care Glazier Structural Glass Name Role Phone Sree High APRN Primary Care Provider +1- [phone] Encounter Details Date Type Department Care Team (Late st Contact Info) Description 10/23/2023 Telephone [place] [phone] Blaier Escobar RN Social History Tobacco Use Types Packs/Day Years Used Date Smoking Tobacco: Never Smokeless Tobacco: Never Alcohol Use Standard Drinks/Week Comments Not Currently 0 (1 standard drink = 0.6 oz pur e alcohol) [facility] Inpatient Questions Answer Date Recorded Does [...] Miscellaneous Notes * Telephone Encounter - Blaire Escobar RN - 10/23/2023 8:23 AM EST Received faxed request for prior authorization for pantoprazole 40mg po BID. Completed via [employer] (Alvarado: [id number]). Awaiting response. *Approved through 01/22/24 documented in this encounter Plan of Treatment [...] psychologist to work on eating behaviors Health Tin Assorter is sending hand-outs with exercises for mindful [...] on filedocumented in this encounter Care Teams Glazier Structural Glass Relationship Specialty Start Date End Date Sree High, BRYANNA [address] [place] [address] PCP - General Family Medicine 12/19/22 documented as of this encounter
--- OUTSIDE RECORDS SUMMARY | 2024-06-01 06:53 | XMS_ITS | Encounter Summary ---
Author Organization [facility] [place] [address] Care Team Providers Care Finished Stock Inspector Name Role Phone Sree High APRN Primary Care Provider +1- [phone] Encounter Details Date Type Department Care Team (Late st Contact Info) Description 04/30/2023 Orders Only [place] [address] Anni Varela APRN [facility] [place] [address] S/P gastric bypass; Disorder of iron metabolism Social History Tobacco Use Types Packs/Day Years Used Date Smoking Tobacco: Never Smokeless Tobacco: Never Alcohol Use Standard Drinks/Week Comments Not Currently 0 (1 standard drink = 0.6 oz pur e alcohol) [facility] Inpatient Questions Answer Date Recorded Does Anyone [...] AM EST documented as of this encounter Progress Notes * Anni Varela APRN - 04/30/2023 12:53 PM EDT Called patient to review lab results. No micronutrient deficiencies. Recommend PCP follow up re: elevated platelets and low potassium (aswas discussed cisco consultant last week). Results routed to PCP. Follow up in 4 months with labs. Patient verbalizes understanding and agreement. documented in this encounter Plan of Treatment [...] psychologist to work on eating behaviors Health Rubber Worker is sending hand-outs with exercises for [...] documented as of this encounter Results * Vitamin B1, whole blood (08/30/2023 3:36 PM EDT) Vit B1 Lvl WB 85 70 - 180 nmol/L [facility] Comment: ADDITIONAL INFORMATION This test was developed and its performance characteristics determined by [facility] in a manner consistent with CLIA requirements. This test has not been cleared or approved by the U.S. Food and Drug Administration. Test Performed by: [facility] [id number] Tower Control Operator: Erlin Orlando M.D. Ph.D.; CLIA# [id number] Blood 08/30/2023 3:36 PM EDT 09/02/2023 12:10 PM EDT Narrative Resulting Agency Comment Spec In Lab Anni E Nichole GOULD CHEMISTRY ORDERABL ES [facility] [place] [address] * (ABNORMAL) Ferritin (08/30/2023 3:36 PM EDT) Ferritin 277(H) 15 - 150 ng/mL [facility] Comment: Pediatric reference ranges not verified at [facility], interpret with caution. Reference ranges for females greater than 50 years of age approach values for men, i.e., 30-400 ng/mL. Blood 08/30/2023 3:36 PM EDT 08/30/2023 3:49 PM EDT Narrative Resulting Agency Comment Spec In Lab Anni E Nichole ASBESTOS SIDING INSTALLER CHEMISTRY ORDERABL ES [facility] [place] [address] * (ABNORMAL) Comprehensive metabolic panel (non-fasting) (08/30/2023 3:36 PM EDT) [facility] Glucose Lvl 82 65 - 199 mg/dL [facility] Comment:Diabetes: >=200 mg/d L plus symptoms BUN 16 8 - 18 mg/dL [facility] Creatinine 0.65(L) 0.70 - 1.20 mg/dL [facility] Sodium 140 135 - 145 mmol/L [facility] Potassium 3.3(L) 3.5 - 5.0 mmol/L [facility] Comment: Please note: ??Patients with WBC >100,000 may have falsely elevated Potassium levels. ??For accurate Potassium quantification in these patients send serum separator tube (gold top) for subsequent determinations. ??Contact the Clinical Chemistry Laboratory if there are any questions. Chloride 103 98 - 107 mmol/L [facility] CO2 28 22 - 31 mmol/L [facility] Anion Gap 9 5 - 15 mmol/L [facility] Calcium 9.4 8.5 - 10.5 mg/dL [facility] Total Protein 6.7 6.1 - 8.0 g/dL [facility] Albumin 4.3 3.2 - 5.2 g/dL [facility] AST 20 0 - 30 unit/L [facility] ALT 24 0 - 30 unit/L [facility] Alk Phos 103 35 - 105 unit/L [facility] Total Bilirubin 0.5 0.2 - 1.3 mg/dL [facility] Estimated GFR 111 >=60 mL/min/1. 73 m?? [facility] Comment: This patient's estimated GFR [...] Agency Comment Spec In Lab Anni E [place] ASBESTOS SIDING INSTALLER CHEMISTRY ORDERABL ES [facility] [place] [address] * (ABNORMAL) Hemogram (08/30/2023 3:36 PM EDT) WBC 8.0 4.0 - 9.5 x10(3)/[facility] RBC 4.03 4.00 - 5.21 x10(6)/[facility] Hemoglobin 12.1 11.7 - 15.5 g/dL [facility] Hematocrit 35.4(L) 35.7 - 45.8 % [facility] MCV 87.8 82.6 - 94.4 fL [facility] MCH 30.0 27.1 - 32.0 pg [facility] MCHC 34.2 31.7 - 35.0 g/dL [facility] Platelets 334 145 - 357 x10(3)/[facility] LAB[facility]ORY RDWSD 45.0 37.0 - 46.0 [facility]ORY RDWCV 14.0 11.5 - 14.1 % [facility] MPV 10.2 7.6 - 12.9 [facility]ORY nRBC % Auto 0.0 % [facility] nRBC Abs Auto 0.000 0.000 - 0.000 x10(3)/[facility] Blood 08/30/2023 3:36 PM EDT 08/30/2023 3:49 PM EDT Narrative Resulting Agency Comment Spec In Lab Anni E [place] ASBESTOS SIDING INSTALLER HEMATOLOGY ORDERAB LES Performing Organization Address City/State/[facility] Co de Phone Number [facility] [place] [address] documented in this encounter Visit Diagnoses Diagnosis S/P gastric bypass Bariatric surgery status Disorder of iron metabolism Other disorders of iron metabolism documented in this encounter Care Teams Finished Stock Inspector Relationship Specialty Start Date End Date Sree High APRN [address] [place] [address] PCP - General Family Medicine 12/19/22 documented as of this encounter
--- OUTSIDE RECORDS SUMMARY | 2024-06-01 06:53 | XMS_ITS | Encounter Summary ---
Author Organization [facility] Address [facility] [place] [address] Care Team Providers Care Global Creative Chairman Name Role Phone Sree High APRN Primary Care Provider +1- [phone] Encounter Details Date Type Department Care Team (Latest Contact Info) Description 08/30/2023 Travel Social History Tobacco Use Types Packs/Day [...] Scheduled Procedures Name Priority Associated Diagnoses Date/Ti ks COLONOSCOPY, DIAGNOSTIC (WRV U 3.26) Biliary stricture [...] On track(2021 10:28 AM EST) Jill Colmenares, DESIGN CENTER CONSULTANT Note: Mindfulness/deep breathing practice to reduce cortisol -try for at least 10 minutes a day -try an ap such as headspace I have referred you to our psychologist to work on eating behaviors Health Graining Operator is sending hand-outs with exercises for mindful eating, The Pause/STOP and Urge surfing. Patient will review and try implementing some behaviors before we meet again. movement Lifestyle On track(2021 10:29 AM EST) Jill Colmenares, DESIGN CENTER CONSULTANT Note: Exercise goal is 150 min a [...] filedocumented in this encounter Care Teams Global Creative Chairman Relationship Specialty Start Date End Date Sree High, DESIGN CENTER CONSULTANT [address] [address] [address] [facility] [address] [place] [address] PCP - General Family Medicine 12/19/22 documented as of this encounter
--- OUTSIDE RECORDS SUMMARY | 2024-06-01 06:53 | XMS_ITS | Encounter Summary ---
Author Organization [facility] Address [facility] [place] [address] Care Team Providers Care Pit Recorder Name Role Phone Sree High APRN Primary Care Provider +1- [phone] Encounter Details Date Type Department Care Team (Latest Contact Info) Description 04/26/2023 Travel Social History Tobacco Use Types Packs/Day [...] On track(2021 10:28 AM EST) Jill Colmenares, WOOD MACHINIST APPRENTICE Note: Mindfulness/deep breathing practice to reduce cortisol -try for at least 10 minutes a day -try an ap such as headspace I have referred you to our psychologist to work on eating behaviors Health Um Nurse is sending hand-outs with exercises for mindful eating, The Pause/STOP and Urge surfing. Patient will review and try implementing some behaviors before we meet again. movement Lifestyle On track(2021 10:29 AM EST) Jill Colmenares, WOOD MACHINIST APPRENTICE Note: Exercise goal is 150 min a [...] on filedocumented in this encounter Care Teams Pit Recorder Relationship Specialty Start Date End Date Sree High, WOOD MACHINIST APPRENTICE [address] [place] [address] [address] [facility] [address] [place] [address] PCP - General Family Medicine 12/19/22 documented as of this encounter
--- OUTSIDE RECORDS SUMMARY | 2024-06-01 06:53 | XMS_ITS | Encounter Summary ---
Author Organization [facility] Address [facility] [place] [address] Care Team Providers Care City Council Member Name Role Phone Sree High APRN Primary Care Provider [phone] Encounter Details Date Type Department Care Team (Late st Contact Info) Description 04/26/2023 2:00 PM EDT Office [place] [address] Vinicio Varela APRN [facility] [place] [address] Blaire Chowdhury, RD [facility] [place] [address] S/P gastric bypass; Disorder of iron metabolism Social History Tobacco Use Types Packs/Day Years Used Date Smoking Tobacco: Never Smokeless Tobacco: Never Alcohol Use Standard Drinks/Week Comments Not Currently 0 (1 standard drink = 0.6 oz pur e alcohol) [facility] Inpatient Questions Answer Date Recorded Does Anyone [...] Sign Reading Time Taken Comments Blood Pressure 142/92 04/26/2023 1:40 PM EDT Pulse 78 04/26/2023 1:40 PM EDT Temperature - - Respiratory Rate 14 04/26/2023 1:40 PM EDT Oxygen Saturation 99% 04/26/2023 1:40 PM EDT Inhaled Oxygen Concentration - - Weight 77.5 kg (170 lb 14.4 oz) 04/26/2023 1:40 PM EDT Height 162.6 cm (5' 4) 04/26/2023 1:40 PM EDT Body Mass Index 29.33 04/26/2023 1:40 PM EDT documented in this encounter Patient Instructions * Patient Instructions* Vinicio Varela, CUSTOMER RETENTION SPECIALIST - 04/26/2023 2:00 PM EDT BSP learning support teacher Kelsey [phone] and Lorraine [phone] Dietitians: [phone] Surgeons/ nurse practitioners: [phone] Nurse line: [phone] Dear Leandra, Please see your electronic medical record note from today for details we discussed at your visit. Below is some additional general information that you may find helpful. Testing: It would be helpful if you can have your lab work drawn a couple days before your visit [facility] facility so the results are available at the time of your follow up visit. If you have labwork done by your primary day care center director before that date, please have a copy sent to the Bariatric Surgery Program. Please call/send my message if you have not heard from us within 2 weeks of having labs work done. Here's the link to [facility] Lab hours and locations: [email or web address] Next visit: Follow up visits are done at 4 months and 12 months after surgery and yearly thereafter. Some patients are evaluated on a more frequent basis. Please call [phone] if you do not receive an appointment by 3-4 weeks prior to the expected visit. Vitamins/Nutrition/Activity Recommendations: Please see your visit note for personalized recommendations General Vitamin recommendations: Multivitamins with minerals twice daily- needs to be an under 50 multivitamin that contains iron. Vitamin B12 500 mcg by mouth once daily Calcium citrate 500-600 mg with Vitamin D 400 units twice daily (600 mg in AM and 600 mg in PM- 2 pills twice a day) (or 1 chewable twice a day) Iron supplement: as specified in today's visit Vitamin D: as specified in today's visit General Nutrition recommendations: 1,000-1,200 calories per day (300 calories per meal, 100 calories per snack, 1-2 snacks per day) 60 grams of protein per day (20 grams per meal) 48-64 oz of non-caloric and hydrating fluids per day (6-8, 8 oz cups) Do not drink with meals- pushes food through more quickly, can cause upset stomach Activity: Aim for 30 minutes of exercise daily, 5 days a week of both cardio and strength training exercises. Skinfold care: Cleanse area with soap and water. Blow dry area on low setting with social sciences department chair. Avoid excessive heat and/or sweating as friction and moisture can exacerbate disease. Try OTC Dove clinical strength anti perspirant to affected areas nightly or an absorbent powder such as Gold Isaacs and Desinex Apply cotton strips (such as strips from old sheets) or larger size cotton underwear folded beneathskin folds to act as a wick. Do not apply sandra cloth toweling which can cause further irritation Try combination of over the counter hydrocortisone cream with over the counter antifungal cream such as lotrimin twice a day for 2 weeks. If your symptoms do not improve you may require prescription of anti-fungal cream/powder. Follow up with PCP if symptoms worsen/fail to improve with above strategies. Constipation: Increase fiber, fluids and fitness. Yerba Prima is a fiber supplement that comes in capsule form. Additionally, consider trying 1 capful daily of miralax daily (preferably at night) with a goal of at least 1 BM per day. You can increase the dose as needed every 2-3 days (by adding on 1 capful either morning or night) without safety concerns, noting that individual tolerance becomes limited by loose stools and bloating with doses higher than 2 capfuls twice daily. Please call if you do not have a BM after 3 days. On days with loose stools, we recommend reducing miralax to 1/2 capful daily but continue to take miralax every day Nausea: Common causes for nausea post bariatric surgery are: Eating too fast, eating too much, drinking with meals, or not chewing well enough. Be sure to eat slowly and chew food well. Take at least30 minutes or more to eat a meal. Call if symptoms worsen, fail to improve, or if you have difficulty keeping food or fluid down. Alcohol: is not recommended for at least 6-12 months after surgery. Alcohol is absorbed much fasterand stays in your system much longer post bariatric surgery and as a result there is an increase risk of alcohol misuse/abuse after bariatric surgery. It should be used sparingly, no more than one drink per occasion, no more than 2 drinks a week. Alcohol is toxic to the liver, a source of empty calories, it can cause ulcers, vitamin and mineral deficiencies, as well as impair digestion and absorption of nutrients. Call or follow up with your therapist or primary care provider if you are struggling or think your alcohol intake is a problem. control for women of child bearing age: is recommended for at least 18-24 months after surgery. f non-prescribed drugs and treet drugs is unsafe Anti-inflammatory medications such as Ibuprofen (Advil), Aleve (Naproxen), Excedrin, Angella-Inman should be used sparingly after gastric bypass, since they increase the risk of ulcer and bleeding. A bone mineral density scan (DEXA) is recommended every 2 years after bariatric surgery. Please schedule this study through your primary care providers office. Hair Loss: is associated with rapid weight loss and is seen approximately 3 to 6 months after surgery and can last 3 to 6 months. It is almost always temporary. Eating a healthy diet with 60 grams ofprotein per day and taking your multivitamin with minerals will help. Sleep Apnea: If you have a history of sleep apnea and have a CPAP/BiPAP, please be sure to follow up with the sleep center to confirm your pressures and determine if continued use of CPAP/BiPAP is recommended. Potential lifetime risks of gastric bypass include risk of ulcer, which is increased with alcohol and antiinflammatory medications and internal hernia (less than 5%), which may be increased with higher than predicted weight loss Potential lifetime risks of sleeve gastrectomy include developed heartburn or severe reflux Call us: If you have concerns. If you have unexplained abdominal pain. if you see blood in your stool or vomit blood If you have prolonged vomiting Post Surgery Support Group: Our post surgery support group meets at [facility] on the first [place] of every month from 1:00 PM-2:00 PM. You can attend online or in person. Use the following link to attend online: [email or web address] Nutrition and Activity apps- Baritastic, My Fitness Pal, Lose It, My Plate Internet resources: www.Ohm Universe wwwGoodAppetito www.bariatriceating.CityScan www.Peeppl Media.CityScan/blog [facility] facebook page: [email or web address].facebook.com/[facility] Books & Magazines: - Recipes for Life After Weight Loss Surgery by Anupama Gao - Shrink Yourself by Dr Vic Bond - Eating Well - www.Ecovative Design - Cooking Light- www.cookinglight.CityScan Anxiety: The Happiness Trap by Kemal Figueroa The Mindfulness and acceptance workbook for anxiety By Sukhdev Roe. Mindful eating: What are you Hungry For? By Ender Biggs The Mindful Diet by Any Gibbs and the [facility] group. Emotional eating: End Emotional Eating by Blaire Kelly Calming the Emotional Storm Jess Rodriguez documented in this encounter Progress Notes * Blaire Chowdhury, CHANG - 04/26/2023 2:00 PM EDT Bariatric Surgery Program Nutrition Progress Note Encounter Type: follow up, post-operative course complicated by nausea, vomiting, dysphagia, abdominal pain. Hospital readmission on 03/18/23. SUBJECTIVE: Topics Discussed/Patient Concerns: Feeling better. No specific concerns. Dizzy a lot.- this started during her hospital stay and was evaluated for it at that time. Dizziness stays the same; not associated with sit to stand or food. Went to PT twice. She plans to call this week to check in with her physical therapist re: next steps. Social history: on disability for multiple medical issues. lives w BF w 3 of her sons (18-21). Has 4 children. Social support: BF, mom, mental health counselor, best friend, sons Hobbies: likes to [employer], singing Vision at 2 years post-op: Healthier eating, improvement of health issues Goal weight: 150-160# OBJECTIVE: Medical Hx: Class II obesity, Anxiety, Back pain, Depression, GERD, Glaucoma, Insomnia, Insulin resistance/prediabetes, kidney stones, Migraine d/o and OA, CHUN Date of Bariatric Surgery: 01/10/23 Type of Bariatric Surgery: Laparoscopic Saúl-en-Y Gastric Bypass w/ Dr. Borrero Weight History: Date Weight (lbs) HT BMI Comments Age 36 237# Highest Weight 06/17/21 228# 64 39.1 Initial program weight 10/09/22 228.8# 64 39.3 1st pre-op visit E[facility] % Surgery 01/22/23 1.5 weeks post-op (tele-health, no weight reported) 01/29/23 207# 26% 35.5 3.5 wks post-op 02/11/23 1 month post-op (not discussed) 04/26/23 170.8# 70% 29.3 4 months post-op [place] Body Weight (based on BMI of 25): 146# 30-70% Excess Weight Loss: 171-204#; 50% Excess Weight Loss: 187# MEDICATIONS: Vitamin/Mineral Supplements (reported by patient): Supplement Type Brand/Form Dosage/Amount Frequency Comments Multivitamin Bariatric Fusion Chewable Complete 1 tablet 4 x daily Calcium Vitamin B12 Iron Vitamin D3 rx 2000 IU daily Food Allergies/Intolerances: anything chocolate, candy, sweet Tracking Intake: None.pt has been tracking using paper logs. Protein intake is hit or miss. 24-Hour Intake: no snacks. Breakfast Egg (1) AM Snack Lunch Macaroni and cheese PM Snack Dinner Hamburger and onion- ate 1/2 hamburger w ruvalcaba w a bun and 1 onion ring HS Snack Protein/ grams per day: Variable. ~40 g yesterday Hydrating fluids- oz/ day: ~16 oz. Gatorade regular- diluted w water or ice. ; 2-3 bottles water 12. Oz. Popsicles - 1 per day. Soda: None. ETOH: None. Caffeine: None. Sweets: Meals per day: 3 Feels full/satisfied after eating: yes In the past month, pt has vomited/regurgitated: Vomited 2 x in the past week. Feels something got caught. Happened about 20 minutes after a meal. Once after eating - shrimp; can't remember second time. Constipation/Diarrhea: None. BM once per day. Not taking anything for it. Exercise: Energy is low. ADLs only. ASSESSMENT: Summary of Weight Loss: Leandra Wilks returns for routine follow-up at 4 months s/p surgery. Her excess weight loss is at 70%. PO tolerance significantly improved. Fluid intake is OK. Protein intake is variable, less than 60 g yesterday. Occasional vomiting; possibly due to eating too fast or not chewing food well enough which is common at 4 months post-op. Reviewed vitamin and mineral supplements. NUTRITION INTERVENTION & MONITORING: Provided support/encouragement and reinforced importance of meeting nutritional goals. Keep up the good work meeting fluid goals. Remember to continue to push fluids as it gets warmer this summer. Consider tracking protein intake and working toward consistently getting in 60 g protein per day. Continue to eat 3 meals per day. Reviewed vitamin and mineral supplement recommendations. Bariatric Fusion Chewable Complete 1 pill 4 times daily Vitamin D 2000 IU daily Evaluation by nurse practitioner today. F/u in December 2023, sooner if requested. * Vinicio Varela APRN - 04/26/2023 2:00 PM [place] [address] Subjective: Leandra Wilks is s/p laparoscopic Saúl-en-Y gastric bypass on 01/10/[address] Borrero. Post operative course has been complicated by difficulty with diet (poor PO intake, nausea, vomiting) which required readmission 03/18-03/29/23. Evaluation during admission included diagnostic laparoscopy, UGI series, upper endoscopy. Further evaluation was done re: neuro symptoms (vision changes, dizziness). Leandra is happy to report she is now eating and drinking, tolerating the diet overall (low/variable protein intake, minimum 48 oz fluids). Current protein sources: scrambled eggs. Most recent regurgitation was after eating shrimp. No longer having nausea. Still has discomfort with PO intake (stable since surgery). BM are normal (daily without meds). Leandra also reports her mood is better. She is seeing her therapist weekly Continues to have dizziness without syncope. She underwent a neuro evaluation while admitted and has spoken to her PCP about this since discharge. She reports the plan is to continue monitoring for now. No syncope/presyncope. Current Supplements: (Started about 1 month ago) Fusion Complete (taking 1 tablet 4 x daily) Vit D3 2,000 IU daily. Pre-Bariatric Surgery Obesity related medical issues: Denies changes. Problem Baseline issue if checked Comments Diabetes/prediabetes/insulin resistance [] Metabolic syndrome or PCOS [] HTN [] Taking propranolol for headaches GERD [x] No current symptoms or treatments Hyperlipidemia [] CHUN [x] Mild CHUN, no CPAP Musculoskeletal issues [x] OA (back) Liver Disease [] Other [x] IBS-D (episodes once a week), now moving bowels daily Review of Systems Constitutional: energy level is low (stable). Neuro: no c/o paresthesias. Foggy headed since surgery, improving since being able to get more nutrition in. CV: no chest pain or palpitations. Pulm: denies SOB and cough. GI: Endorses discomfort with PO intake (stable), no nausea, no recent vomiting. 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 Health Habits: Tobacco: Never. ETOH: No alcohol since before surgery. NSAID use: None. Patient Active Problem List Diagnosis Code Irritable [...] Diplopia H53.2 Dizziness R42 Physical deconditioning R53.81 Medications/allergies reviewed. Dietary history/ exericse/ activity level: See dietitian note from today's visit for complete dietary evaluation. WT (lbs) BMI HT Highest wt Initial Pre-op visit 10/09/22 228.8 39.3 64 237 12/18/22 238 40.8 Post-op WT (lbs) BMI %EBW lost 01/29/23 207 (reported) 04/26/23 170 29.3 70% Objective: BP (!) 142/92 (BP Location (NBP): Right arm, Patient Position: Sitting, BP Cuff Sizes: Adult (25-34cm)) Pulse 78 Resp 14 Ht 162.6 cm (5' 4) Wt 77.5 kg (170 lb 14.4 oz) SpO2 99% BMI 29.33 kg/m?? Physical Exam General: Alert, pleasant, NAD, appears well. Abdomen: Soft, non-distended, non-tender. Resp: No increased work of breathing. Speaking in full sentences. No cough/wheeze witnessed. Skin: excess skin noted abdomen. Skin is warm and dry. No rash noted on exam today. Psychiatric: Normal mood and affect. Appropriate eye contact. Assessment/plan: Leandra Wilks is s/p above procedures, with early post- operative course complicated by poor PO intake (d/t nausea and discomfort with PO intake) which required readmission. Evaluation of symptoms was all reassuring. Now has significantly improved intake, meeting fluid goals, meeting protein goals some days. Patient with continued dizziness (not related to intake/hydration), encouraged follow up with PCP. S/p bariatric surgery: Doing well from a bariatric surgery perspective, overall pleased with surgery outcome. Discussed dietary considerations and strategies for continued success . Reviewed importance of meeting nutritional/protein/fluid requirements, tracking food and food choices, pairing carbs with protein, being careful to avoid eating too fast, eating too much, drinking with meals, or not chewing well enough. Patient has met with multimedia production assistant today, please see note for additional details/dietary evaluation. Advised that hair loss due to rapid weight loss is typical for this early post- surgery time frame, will improve with time and adequate protein/calorie intake. Avoid ETOH until 6-12 months post-operatively, and then should be used in small amounts Obesity related co-morbidities Improved/stable overall. Risk for vitamin deficiencies: Will check iron studies, folate, Vit D, Vit B 1, Vit B 12, hemogram, CMP, PTH. Will make additionalrecommendations once lab results are available. Reviewed recommended vitamin/mineral supplements- continue as above until labs are available. See RD note for additional details re: vitamin/mineral supplementation. Pt reminded that a bone mineral density scan (DEXA) is recommended every 2 years after bariatric surgery. RTC in 4 months for 8 month post bariatric surgery follow up visit, with labs. Call/rtc sooner prn with questions/concerns, unexplained abdominal pain, prolonged nausea, vomiting or inability to hydrate, questions or concerns. Bariatric Program Summary report is availabe for patient's review via e-DH I spent a total of 30 minutes associated with this encounter, including chart review, the patient encounter, and documentation. Vinicio Varela APRN RECOMMENDED BARIATRIC SURGERY PROGRAM POSTOPERATIVE FOLLOW-UP: Follow up: done at 4, 12 and yearly thereafter. High risk patients are evaluated on a more frequentbasis. *Typical Supplement recommendations: Multivitamin with minerals twice a day, B12 500 mcg once a day, calcium citrate 600 mg/400 units vitamin D twice a day, iron (ferrous fumarate, carbonyl iron taken with vitamin C 250 mg once every other day) for menstruating females or those with Iron Deficiency. Labwork: Hemogram, ferritin, iron (transferrin) saturation, iron, folate, B1, B12, D (25 hydroxy only), Intact PTH and comprehensive metabolic profile at 4, 12 months and yearly. If labwork is done by the primary day care center director: please send a copy to the Bariatric Surgery Program, General Surgery Clinic, [facility], or fax [phone] documented in this encounter Plan of Treatment Scheduled Procedures Name Priority Associated Diagnoses Date/Ti pr COLONOSCOPY, DIAGNOSTIC (WRV U 3.26) Biliary stricture [...] to work on eating behaviors Health Director Credit Risk is sending hand-outs with exercises for mindful eating, The Pause/STOP and Urge surfing. Patient will review and try implementing some behaviors before we meet again. movement Lifestyle On track(2021 10:29 AM EST) Jill Colmenares, CUSTOMER RETENTION SPECIALIST Note: Exercise goal is 150 min a week, just do some walking, even [address] to start Recommend resistance training 3 times a week -can use therabanECKey Nutrition - 09/26/22 Lifestyle On track(2021 10:29 [...] as of this encounter Results * Vitamin D, 25-Hydroxy (04/26/2023 3:07 PM EDT) 25-OH Vit D Total 41 21 - 100 ng/mL [facility] 25-OH Vit D Interp Sufficient [facility] Blood 04/26/2023 3:07 PM EDT 04/26/2023 3:25 PM EDT Narrative Resulting Agency Comment Spec In Lab Vinicio E Florence CUSTOMER RETENTION SPECIALIST CHEMISTRY ORDERABL ES Performing Organization Address [facility] Co de Phone Number [facility] [place] [address] * Vitamin B12 (04/26/2023 3:07 PM EDT) Vitamin B-12 631 232 - 1,245 pg/mL [facility] Blood 04/26/2023 3:07 PM EDT 04/26/2023 3:25 PM EDT Narrative Resulting Agency Comment Spec In Lab Vinicio E Florence CUSTOMER RETENTION SPECIALIST CHEMISTRY ORDERABL ES Performing Organization Address [facility] Co de Phone Number [facility] [place] [address] * Vitamin B1, whole blood (04/26/2023 3:07 PM EDT) Vit B1 Lvl WB 94 70 - 180 nmol/L [facility] Comment: ADDITIONAL INFORMATION This test was developed and its performance characteristics determined by [facility] in a manner consistent with CLIA requirements. This test has not been cleared or approved by the U.S. Food and Drug Administration. Test Performed by: [facility] [address] [place] [address] Head Cashier: Erlin Orlando M.D. Ph.D.; CLIA# [id number] Blood 04/26/2023 3:07 PM EDT 04/26/2023 4:15 PM EDT Narrative Resulting Agency Comment Spec In Lab Vinicio E Florence CUSTOMER RETENTION SPECIALIST CHEMISTRY ORDERABL ES [facility] [place] [address] * PTH (04/26/2023 3:07 PM EDT) PTH 41 15 - 65 pg/mL [facility] Blood 04/26/2023 3:07 PM EDT 04/26/2023 3:26 PM EDT Narrative Resulting Agency Comment Spec In Lab Vinicio E Florence CUSTOMER RETENTION SPECIALIST CHEMISTRY ORDERABL ES Performing Organization Address [facility] Co de Phone Number [facility] [place] [address] * (ABNORMAL) Hemogram (04/26/2023 3:07 PM EDT) WBC 6.8 4.0 - 9.5 x10(3)/[facility] RBC 4.45 4.00 - 5.21 x10(6)/[facility] Hemoglobin 13.2 11.7 - 15.5 g/dL [facility] Hematocrit 38.9 35.7 - 45.8 % [facility] MCV 87.4 82.6 - 94.4 [facility]ORY MCH 29.7 27.1 - 32.0 pg [facility] MCHC 33.9 31.7 - 35.0 g/dL [facility] Platelets 458(H) 145 - 357 x10(3)/[facility] LABORATORY RDWSD 47.7(H) 37.0 - 46.0 [facility]ATORY RDWCV 14.7(H) 11.5 - 14.1 % [facility] MPV 9.8 7.6 - 12.9 fL [facility] nRBC % Auto 0.0 % [facility] nRBC Abs Auto 0.000 0.000 - 0.000 x10(3)/mcL [facility] Blood 04/26/2023 3:07 PM EDT 04/26/2023 3:25 PM EDT Narrative Resulting Agency Comment Spec In Lab Vinicio E Nichole CUSTOMER RETENTION SPECIALIST HEMATOLOGY ORDERAB LES Performing Organization Address [facility]/ZIP Co de Phone Number [facility] [place] [address] * Iron and TIBC (04/26/2023 3:07 PM EDT) Iron 73 30 - 150 mcg/dL [facility] TIBC 287 250 - 450 mcg/dL [facility] Iron Saturation 25 20 - 50 % [facility] Blood 04/26/2023 3:07 PM EDT 04/26/2023 3:25 PM EDT Narrative Resulting Agency Comment Spec In Lab Vinicio E Florence CUSTOMER RETENTION SPECIALIST CHEMISTRY ORDERABL ES Performing Organization Address [facility] Co de Phone Number [facility] [place] [address] * Folate, serum (04/26/2023 3:07 PM EDT) Pathologist [facility] Folate Lvl 6.8 4.8 - 24.2 ng/mL [facility] Blood 04/26/2023 3:07 PM EDT 04/26/2023 3:25 PM EDT Narrative Resulting Agency Comment Spec In Lab Vinicio E Florence CUSTOMER RETENTION SPECIALIST CHEMISTRY ORDERABL ES Performing Organization Address [facility] Co de Phone Number [facility] [place] [address] * (ABNORMAL) Ferritin (04/26/2023 3:07 PM EDT) Pathologist [facility] Ferritin 366(H) 15 - 150 ng/mL [facility] Comment: Pediatric reference ranges not verified [place] [facility] interpret with caution. Reference ranges for females greater than 50 years of age approach values for men, i.e., 30-400 ng/mL. Blood 04/26/2023 3:07 PM EDT 04/26/2023 3:25 PM EDT Narrative Resulting Agency Comment Spec In Lab Vinicio Varela APRN CHEMISTRY ORDERABL ES [facility] [place] [address] * (ABNORMAL) Comprehensive metabolic panel (non-fasting) (04/26/2023 3:07 PM EDT) [facility] Glucose Lvl 85 65 - 199 mg/dL [facility] Comment:Diabetes: >=200 mg/d L plus symptoms BUN 8 8 - 18 mg/dL [facility] Creatinine 0.52(L) 0.70 - 1.20 mg/dL [facility] Sodium 140 135 - 145 mmol/L [facility] Potassium 3.0(Criti royal) 3.5 - 5.0 mmol/L [facility] Comment: Called by: ghazal, Read back by: vinicio varela, Date/Time:04/26/23 16:34. Please note: ??Patients with WBC >100,000 may have falsely elevated Potassium levels. ??For accurate Potassium quantification in these patients send serum separator tube (gold top) for subsequent determinations. ??Contact the Clinical Chemistry Laboratory if there are any questions. Chloride 102 98 - 107 mmol/L [facility] CO2 25 22 - 31 mmol/L [facility] Anion Gap 13 5 - 15 mmol/L [facility] Calcium 9.8 8.5 - 10.5 mg/dL [facility] Total Protein 7.2 6.1 - 8.0 g/dL [facility] Albumin 4.5 3.2 - 5.2 g/dL [facility] AST 33(H) 0 - 30 unit/L [facility] ALT 40(H) 0 - 30 unit/L [facility] Alk Phos 120(H) 35 - 105 unit/L [facility] Total Bilirubin 0.6 0.2 - 1.3 mg/dL [facility] Estimated GFR 117 >=60 mL/min/1. 73 m?? [facility] [...] Agency Comment Spec In Lab Vinicio Varela APRN CHEMISTRY ORDERABL ES [facility] [place] [address] documented in this encounter Visit Diagnoses Diagnosis S/P gastric bypass Bariatric surgery status Disorder of iron metabolism Other disorders of iron metabolism documented in this encounter Care Teams City Council Member Relationship Specialty Start Date End Date Sree High APRN [address] [place] [address] PCP - General Family Medicine 12/19/22 documented as of this encounter
--- OUTSIDE RECORDS SUMMARY | 2024-06-01 06:53 | XMS_ITS | Encounter Summary ---
Author Organization [facility] Address [facility] [place] [address] Care Team Providers Care Optics Engineer Name Role Phone Sree High APRN Primary Care Provider +1- [phone] Reason for Visit * Consultation (Routine) - Closed Specialty Diagnoses / Procedures Referred By Chela doyle Referred To Contact Otolaryngology Diagnoses Dizziness Diplopia Joan Solorzano PA [facility] [place] [address] [facility] Otolaryngology [address] [place] [id number] Referral ID Status Reason Start Date Expiration Date V isits Requested Visits Authorized [id number] Closed Consult, Test & Treat 03/29/2023 03/28/2024 1 1 Encounter Details Date Type Department Care Team ([facility] Contact Info) Description 09/24/2023 1:45 PM EST Office Visit Audiology at [address] [phone] Anel Frye AUD [facility] [address] Dizziness Social History Tobacco Use Types Packs/Day Years Used Date Smoking Tobacco: Never Smokeless Tobacco: Never Alcohol Use Standard Drinks/Week Comments Not Currently 0 (1 standard drink = 0.6 oz pur e alcohol) [facility] Inpatient Questions Answer Date Recorded [...] as of this encounter Progress Notes * Anel Frye AUD - 09/24/2023 1:45 PM EST [place] [address] Leandra Wilks was seen on 09/24/2023 for an audiologic evaluation in conjunction with Pito Hess PA-C in ENT. Please refer to the scanned audiogram listed under Procedures for findings, impressions and recommendations. Danny Mahoney (Kate) [facility] Clinical Infrastructure Engineer [facility] [phone] documented in this encounter Plan of Treatment [...] AM EST) No Jill Farooq APRN Note: Follow up with sleep, do [...] psychologist to work on eating behaviors Health Water Quality Assistant is sending hand-outs with exercises for mindful [...] Procedure Name Priority Date/Time Associated Diagnosis Comments COMPREHENSIVE HEARING TEST Routine 09/24/2023 1:47 PM EST documented in this encounter Results * Comprehensive hearing test (09/24/2023 1:47 PM EST) 09/24/2023 1:47 PM EST Narrative [facility]UD[facility] - 09/24/2023 1:47 PM EST Recommendations: -Follow up per Pito Hess PA-C in ENT. Procedure Note Unknown - 09/24/2023 Recommendations: -Follow up per Pito Hess PA-C in ENT. Anel ZUNIGA AUDIOLOG[facility] S ORDERABLES [facility] documented in this encounter Visit Diagnoses Diagnosis Dizziness Dizziness and giddiness documented in this encounter Care Teams Optics Engineer Relationship Specialty Start Date End Date Sree High, SUPERINTENDENT [address] [place] [address] PCP - General Family Medicine 12/19/22 documented as of this encounter
--- OUTSIDE RECORDS SUMMARY | 2024-06-01 06:53 | XMS_ITS | Encounter Summary ---
Author Organization [facility] Address [facility] [place] [address] Care Team Providers Care Foam Charger Name Role Phone Sree High APRN Primary Care Provider +1- [phone] Encounter Details Date Type Department Care Team (Late st Contact Info) Description 05/27/2023 Notes [place] [id number] Savanna Dick RN Social History Tobacco Use Types Packs/Day Years Used Date Smoking Tobacco: Never Smokeless Tobacco: Never Alcohol Use Standard Drinks/Week Comments Not Currently 0 (1 standard drink = 0.6 oz pur e alcohol) [facility] Inpatient Questions Answer Date Recorded [...] as of this encounter Progress Notes * Savanna Dick RN - 05/27/2023 8:58 AM EDT On 05/27/23 we have carefully reviewed your case with the Clinical Vertigo Team including your dizziness questionnaire, medical history, and any other previous diagnostic tests performed/forwarded by your referring provider. It's our recommendation that you have AE, PT evaluation with CDP, and appointment with ENT. Slag Skimmer has been made aware. documented in this encounter Plan of Treatment [...] psychologist to work on eating behaviors Health Marine Oil Terminal Superintendent is sending hand-outs with exercises for mindful [...] on filedocumented in this encounter Care Teams Foam Charger Relationship Specialty Start Date End Date Sree High APRN [address] [place] [address] [address] [place] [address] PCP - General Family Medicine 12/19/22 documented as of this encounter
--- OUTSIDE RECORDS SUMMARY | 2024-06-01 06:53 | XMS_ITS | Encounter Summary ---
Author Organization [facility] Address [facility] [place] [address] Care Team Providers Care Purification Supervisor Name Role Phone Sree High APRN Primary Care Provider +1- [phone] Encounter Details Date Type Department Care Team (Latest Contact Info) Description 04/22/2023 Travel Social History Tobacco Use Types Packs/Day [...] Scheduled Procedures Name Priority Associated Diagnoses Date/Ti wi COLONOSCOPY, DIAGNOSTIC (WRV U 3.26) Biliary stricture [...] On track(2021 10:28 AM EST) Jill Colmenares, METAL MACHINE SETTER Note: Mindfulness/deep breathing practice to reduce cortisol -try for at least 10 minutes a day -try an ap such as headspace I have referred you to our psychologist to work on eating behaviors Health Podiatric Technician is sending hand-outs with exercises for mindful eating, The Pause/STOP and Urge surfing. Patient will review and try implementing some behaviors before we meet again. movement Lifestyle On track(2021 10:29 AM EST) Jill Colmenares, METAL MACHINE SETTER Note: Exercise goal is 150 min a [...] on filedocumented in this encounter Care Teams Purification Supervisor Relationship Specialty Start Date End Date Sree High, METAL MACHINE SETTER [address] [place] [address] [address] [facility] [address] [place] [address] PCP - General Family Medicine 12/19/22 documented as of this encounter
--- OUTSIDE RECORDS SUMMARY | 2024-06-01 06:53 | XMS_ITS | Encounter Summary ---
Author Organization [facility] [place] [address] Care Team Providers Care Acupressurist Name Role Phone Sree High APRN Primary Care Provider +1- [phone] Encounter Details Date Type Department Care Team (Late st Contact Info) Description 07/25/2023 Telephone [place] [phone] Aleja Pittman Social History Tobacco Use Types Packs/Day Years Used Date Smoking Tobacco: Never Smokeless Tobacco: Never Alcohol Use Standard Drinks/Week Comments Not Currently 0 (1 standard drink = 0.6 oz pur e alcohol) [facility] Inpatient Questions Answer Date Recorded Does [...] encounter Miscellaneous Notes * Telephone Encounter - Aleja Pittman - 07/25/2023 8:59 AM EDT Called and spoke to patient at [phone], calling to schedule for referral. Appointment has been scheduled [facility] Patient has declined pt at this time Reviewed pcp, demographics and insurance documented in this encounter Plan of Treatment [...] psychologist to work on eating behaviors Health Chinese Teacher is sending hand-outs with exercises for mindful [...] on filedocumented in this encounter Care Teams Acupressurist Relationship Specialty Start Date End Date Sree High, BRYANNA [address] [place] [address] PCP - General Family Medicine 12/19/22 documented as of this encounter
--- OUTSIDE RECORDS SUMMARY | 2024-06-01 06:53 | XMS_ITS | Encounter Summary ---
[facility] [place] [address] Care Team Providers Care Head Of Marketing Name Role Phone Sree High APRN Primary Care Provider [phone]- [phone] Encounter Details Date Type Department Care Team (Latest Contact Info) Description 10/22/2023 1:00 PM EST TH Visit (TeleHealth) [place] [address] Anni Varela APRN [facility] [place] [address] Stacey Ly, CHANG [facility] [place] [address] Epigastric pain; S/P gastric bypass Social History Tobacco Use [...] AM EST documented as of this encounter Patient Instructions * Patient Instructions* Anni Varela, NIGHT NURSE - 10/22/2023 1:00 PM EST [facility] home support worker Kelsey [phone] and Lorraine [phone] Dietitians: [phone] Surgeons/ nurse practitioners: [phone] Nurse line: [phone] Dear Leandra, Please see your electronic medical record note from today for details we discussed at your visit. Below is some additional general information that you may find helpful. Testing: It would be helpful if you can have your lab work drawn a couple days before your visit norma [facility] facility so the results are available at the time of your follow up visit. If you have labwork done by your primary manager progressive care before that date, please have a copy sent to the Bariatric Surgery Program. Please call/send my [employer] message if you have not heard from us within 2 weeks of having labs work done. Here's the link to [facility] Lab hours and locations: [email or web address] Next visit: Follow up visits are done at 4 months and 12 months after surgery and yearly thereafter. Some patients are evaluated on a more frequent basis. Please call [phone] if you do not receive an appointment [...] Blow dry area on low setting with haircutter. Avoid excessive heat and/or sweating as friction [...] such as Ibuprofen (Advil), Aleve (Naproxen), Excedrin, Angella-Spencer should be used sparingly after gastric bypass, [...] Our post surgery support group meets at [facility] on the first Saturday of every month from 1:00 PM-2:00 PM. You can attend online or in person. Use the following link to attend online: [email or web address] Nutrition and Activity apps- Baritastic, My Fitness Pal, Lose It, My Plate Internet resources: www.21st Century Oncology wwwPolar Rose www.Shiny Mediaeathreadsy.Wrightspeed www.YeePay.Wrightspeed/blog [facility] facebook page: https://www.facebook.[email or web address]/[email or web address]ariatric[facility]gery Books & Magazines: - Recipes for Life After Weight Loss Surgery by Anupama Gao - Shrink Yourself by Dr Vic Bond - Eating Well - www.Perpetuuiti TechnoSoft Serviceswell.Wrightspeed - Cooking Light- www.cookinglight.Wrightspeed Anxiety: The Happiness Trap by Kemal Figueroa The Mindfulness and acceptance workbook for anxiety By Sukhdev Roe. Mindful eating: What are you Hungry For? By Ender Biggs The Mindful Diet by Any Gibbs and the [facility] group. Emotional eating: End Emotional Eating by Blaire Kelly Calming the Emotional Storm Jessren Rodriguez documented in this encounter Progress Notes * Stacey Ly, RD - 10/22/2023 1:00 PM EST Images from the original note were not included. [place] [address] BARIATRIC SURGERY VIRTUAL NOTE Reason/purpose for phone call: BSP follow up visit The patient voiced an understanding of the reason and intent of the televisit and provided verbal consent to discuss clinical issues by telehealth. Additionally, the patient acknowledged that the telehealth consultation is a billable encounter, and that the patient or their medical insurance carrier could be billed. Summary of conversation, decision making, and plan: see below encounter note for details. Time Attestation: I spent a total of 60 minutes associated with this encounter, including chart review, the patient encounter, and documentation. Encounter Type: follow up SUBJECTIVE: Topics Discussed/Patient Concerns: Pt stated that she tried Fairlife milk for a few weeks, stated it went okay, but has not had any inthe last week. Pt states she tried cheese sticks but does not currently have any. Pt reports new onset upper abdominal pain starting about 1 week ago. Pt states the pain is constantbut worse after eating and drinking. Using heating pad for tx. Pt states this pain feels like her previous post-surgical pain coming back. Pt to increase PPI to 40 mg BID Further evaluation by nAni Varela APRN Pt is below protein and fluid goals. Discussed strategies for increasing intake. Discussed setting alarms or reminders in phone Discussed having specific place in fridge for her food/drink items Discussed restarting Fairlife milk as snack Social history: on disability for multiple medical issues. lives w BF w 3 of her sons (18-21). Has 4 children. Social support: BF, mom, mental health counselor, best friend, sons Hobbies: likes to lennie, singing Vision at 2 years post-op: Healthier [...] 04/26/23 170.8# 70% 29.3 4 months post-op 08/30/23 138# 109% 23.7 8 mo post-op 10/22/23 125# 125% 21.5 10 mo post-op (per pt) [place] Body Weight (based on BMI of 25): 146# 30-70% Excess Weight Loss: 171-204#; 50% Excess Weight Loss: 187# MEDICATIONS: Vitamin/Mineral Supplements (reported by patient): Supplement Type Brand/Form Dosage/Amount Frequency Comments Multivitamin [employer] with 18 mg iron 1 daily Calcium Orku Bariatric Calcium Plus 3 pills Twice daily 6 pills contains:1200 mg royal citrate 1800 IU vit D 210 mag oxide Vitamin B12 Iron Vitamin D3 none Bariatric Experts Hair gummy none Food Allergies/Intolerances: anything chocolate, candy, sweet Tracking Intake: None 24-Hour Intake: Pt states she is trying to get more regular meals. Pt reports usu instant oatmeal for breakfast, smoothie this morning (<1g of protein), PB s/w for lunch, pasta for dinner. Breakfast 1 hard boiled egg AM Snack Lunch PM Snack Snacked throughout day on pistachio nuts and trail mix with raisins and dried mangos Dinner HS Snack Protein/ grams per day: <60g Hydrating fluids- oz/ day: 12 oz water, 28 oz Gatorade Fit Soda: Avoids-cannot tolerate ETOH: No alcohol since before surgery. Caffeine: Very rare Sweets: Cannot tolerate Meals per day: Pt reports grazing through most of the day Feels full/satisfied after eating: yes Feels hungry [x]never []sometimes []most of the time [] always Drinks with meals: no Has had dumping syndrome: yes, w/ seafood- ? If did not chew it well enough, pasta In the past month, pt has vomited/regurgitated: +nausea, no vomiting Constipation/Diarrhea: None. BM once per day. Not taking anything for it. Exercise: Pt states she does not have the energy to exercise. Advised pt that increasing protein, calorie, and fluid intake is needed before increasing exercise. ASSESSMENT: Summary of Weight Loss: Leandra Wilks returns for routine follow-up at 10 months s/p surgery. Her excess weight loss is at 125%. Pt is not tolerating the diet and is below protein and fluid goals. Discussed strategies for increasing intake. Advised pt to eat at regular meal times and have snacks in between meals. Advised pt to use Fairlife milk between meals to help increase protein, calorie, and fluid intake. Suggested pt set reminders on her phone to eat meals and snack. Reviewed supplements, pt is taking supplements as recommended. NUTRITION INTERVENTION & MONITORING: Provided support/encouragement and reinforced importance of meeting nutritional goals. Aim for 60-80g of protein/day- eat protein at all meals and snacks, eat protein first Set reminders on phone to eat 3 meals and 3 snacks per day Designate area in fridge for Fairlife milk and cheese sticks so other household members do not consume them Restart Fairlife milk as snacks Aim for 48-64 oz hydrating fluid/day Reviewed vitamin and mineral supplement recommendations. Multivitamin with minerals- continue [employer] w/ 18 mg iron Calcium citrate 500-600 mg with vitamin D twice daily. (2 pills twice per day or 1 chew twice daily) Evaluation by nurse practitioner today. F/u in 2 mo, sooner if requested. * Anni Varela APRN - 10/22/2023 1:00 PM EST Images from the original note were not included. Bariatric Surgery Program [place] [phone] BARIATRIC SURGERY VIRTUAL NOTE Reason/purpose for phone call: BSP follow up visit The patient voiced an understanding of the reason and intent of the televisit and provided verbal consent to discuss clinical issues by telehealth. Additionally, the patient acknowledged that the telehealth consultation is a billable encounter, and that the patient or their medical insurance carrier could be billed. Summary of conversation, decision making, and plan: see below encounter note for details. Time Attestation: I spent a total of 30 minutes associated with this encounter, including chart review, the patient encounter, and documentation. Reason for visit: Bariatric Surgery follow up visit Subjective: Leandra Wilks is s/p laparoscopic Saúl-en-Y gastric bypass on 01/10/[address] Borrero, she presents today for 1 month telehealth follow up for support with diet and supplements. Leandra's early post operative course was complicated by difficulty with diet (poor PO intake, nausea, vomiting, abdominal pain) which required readmission 03/18-03/29/23. Workup included diagnostic laparoscopy with FRANSISCO, UGI series, upper endoscopy. While admitted she also underwent neuro evaluation re: vision changes, dizziness. She followed up with her PCP who referred her to her ophthalmology andENT. She has been referred to vestibular therapy but has not yet started. At her last visit (August) Leandra reported low abdominal pain which was being evaluated via PCP. She has since undergone US and MRI. Leandra reports they found an ovarian cyst which has since resolved. At her last visit the abdominal pain was making it harder to meet protein and fluid goals. Today she reports low abdominal pain has resolved but unfortunately her upper abdominal pain has recurred as below. Patient reports upper abdominal pain which started about 1 week ago. The pain is located in the epigastrium. Pain is constant. The pain is rated 7/10 and is described as crampy. Leandra is using a heating pad with some benefit. The pain is made worse by oral intake (worse with solids than liquids).Patient denies correlation bowel movements. Endorses nausea. No associated vomiting, diarrhea, or constipation. Of note, patient is s/p cholecystectomy. Patient denies use of NSAIDs, nicotine and alcohol. Patient denies black/tarry stool, hematemesis. Endorses dizziness (x 1 month since limited intake) without syncope. Symptoms are consistent with what she experienced post op. Taking pantoprazole BID. No longer on sucralfate. Labs at last visit showed low potassium, low prealbumin, minimally elevated ferritin, and vitamin Dslightly below goal. We recommended transition to bariatric MV and calcium citrate twice daily. Notyet due for labs. Goals at last visit included working to increase PO intake by adding Fairlife milk and cheese sticks. Leandra reports low intake continues to be problematic. Barriers to better nutrition identified include: other household members drinking her milk, forgetting to eat/drink. Interim Health: Patient reports health has been stable overall. No bariatric related surgeries, hospitalizations, or ED visits since the last visit. No kidney stones or atraumatic fractures. Current Supplements: Procare bariatric MV with 18 mg Fe daily Calcium Citrate Orku (taking 3 tablets twice a day total 1800 IU vitamin D) Potassium and Magnesium daily Pt follows with PCP/specialist for disease management and age specific screening. Pre-Bariatric Surgery Obesity related medical issues: Deferred today. Problem Baseline issue if checked Comments Diabetes/prediabetes/insulin resistance [] Metabolic syndrome or PCOS [] HTN [] Taking propranolol for headaches GERD [x] No current symptoms or treatments Hyperlipidemia [] CHUN [x] Mild CHUN, no CPAP Musculoskeletal issues [x] OA (back) Liver Disease [] Other [x] IBS-D (episodes once a week), now moving bowels daily Patient Active Problem List Diagnosis Code Irritable [...] Diplopia H53.2 Dizziness R42 Physical deconditioning R53.81 Review of Systems Constitutional: energy level is low, no c/o restless leg, endorses hair thinning/loss. Neuro: endorses paresthesias, endorses change in memory (started with the dizziness). CV: no c/o chest pain or palpitations. Pulm: denies SOB or cough. GI: as above. ASBESTOS HANDLER: s/p hyst. Skin: Endorses redundant skin, no current skin fold rashes. Health Habits: Tobacco: None. ETOH: None. NSAID use: None. Dietary history/ exericse/ activity level: See dietitian note from today's visit for complete dietary evaluation. Meds and Allergies reviewed. WT (lbs) BMI HT Highest wt Initial Pre-op visit 10/09/22 228.8 39.3 64 237 12/18/22 238 40.8 Post-op WT (lbs) BMI %EBW lost 01/29/23 207 (reported) 04/26/23 170 29.3 70% 08/30/23 137 23.6 109% 10/22/23 125 21.5 125% Objective: There were no vitals taken for this visit. Physical Exam- limited d/t telehealth Gen: Alert, pleasant, NAD, appears well Resp: Speaking in full sentences, no gasping. No cough witnessed. Skin: No pallor or diaphoresis visible. No rash noted. Psychiatric: normal mood and affect. No results found for this or any previous visit (from the past 72 hour(s)). Assessment /Plan: 43 y.o. female who is 10 months s/p Saúl-en-Y gastric bypass with 125%. Abdominal pain: recurrent epigastric pain, limiting PO intake. Pt to increase pantoprazole 40 mg BID, advised to track symptoms, reviewed diet coaching. Refilled sucralfate, reviewed administration instructions. Reviewed with Dr. Gregg, will move forward with upper gi series and clinic visit with VETERINARY ASSISTANT TECHNICIAN/MD/RD Reviewed ED precautions. Patient verbalizes understanding. S/p bariatric surgery: Patient well below protein and fluid goals (worse since onset of new abdominal pain). Reviewed importance of meeting nutritional/protein/fluid requirements, tracking food and food choices, pairing carbs with protein, being careful to avoid eating too fast, eating too much, drinking with meals, or not chewing well enough. Discussed nutrient dense foods to try to improve intake/stabilize weight (Fairlife milk, cheese, peanutbutter sandwiches). Discussed risks associated with alcohol intake after bariatric surgery (increased risk of alcohol misuse/abuse, increased risk of ulcers, empty calorie). Patient has met with hand box folder today, please see note for additional details/dietary evaluation. Obesity related co-morbidities: Improved/stable overall, patient to continue to follow with PCP/specialist. Risk for vitamin deficiencies: No labs due today. Reviewed recommended vitamin/mineral supplements- continue as above. RTC for follow up after GI series and in Dec for 1 year post op visit with labs. Call/rtc sooner prn with questions/concerns or unexplained abdominal pain, prolonged nausea, vomiting or inability to hydrate. Bariatric Program Summary report is availabe for patient's review via e- I spent a total of 40 minutes associated with this encounter, including chart review, the patient encounter, and documentation. Anni Varela APRN RECOMMENDED BARIATRIC SURGERY PROGRAM POSTOPERATIVE [...] If labwork is done by the primary manager progressive care: please send a copy to the Bariatric Surgery Program, General Surgery Clinic, [facility], or fax [phone] documented in this encounter Plan of Treatment [...] psychologist to work on eating behaviors Health Chief Engineer is sending hand-outs with exercises for [...] use [employer] Nutrition - 09/26/22 Lifestyle On track(02/15/ 2022 10:29 AM EST) Hailee Wetzel, CHANG Note: [...] as of this encounter Visit Diagnoses Diagnosis Epigastric pain Abdominal pain, epigastric S/P gastric bypass Bariatric surgery status documented in this encounter Care Teams Head Of Marketing Relationship Specialty Start Date End Date Sree High APRN [address] [place] [address] PCP - General Family Medicine 12/19/22 documented as of this encounter
--- OUTSIDE RECORDS SUMMARY | 2024-06-01 06:53 | XMS_ITS | Encounter Summary ---
Author Organization [facility] Address [facility] [place] [address] Care Team Providers Care Peoplesoft Programmer Name Role Phone Sree High APRN Primary Care Provider +1- [phone] Encounter Details Date Type Department Care Team (Late st Contact Info) Description 04/02/2023 Telephone Weight and Wellness at [facility] [place] [id number] Loli Valerio, PhD [facility] [place] [address] Social History Tobacco Use Types Packs/Day Years Used Date Smoking Tobacco: Never Smokeless Tobacco: Never Alcohol Use Standard Drinks/Week Comments Not Currently 0 (1 standard drink = 0.6 oz pur e alcohol) [facility] Inpatient Questions Answer Date Recorded Does Anyone [...] encounter Miscellaneous Notes * Telephone Encounter - Loli Valerio, PhD - 04/02/2023 9:10 AM EDT Called Leandra for their appointment after she didn't sign in to the virtual visit. No answer. Leftmessage to return call. documented in this encounter Plan of Treatment [...] psychologist to work on eating behaviors Health Radio Aerial Installer is sending hand-outs with exercises for mindful [...] on filedocumented in this encounter Care Teams Peoplesoft Programmer Relationship Specialty Start Date End Date Sree High APRN [address] [place] [address] PCP - General Family Medicine 12/19/22 documented as of this encounter
--- OUTSIDE RECORDS SUMMARY | 2024-06-01 06:53 | XMS_ITS | Encounter Summary ---
Author Organization [facility] [place] [address] Care Team Providers Care Tube Coverer Name Role Phone Sree High APRN Primary Care Provider [phone] Reason for Visit * Reason Comments Follow-up Encounter Details Date Type Department Care Team ([facility] Contact Info) Description 08/30/2023 2:00 PM EDT Office [place] [address] Anni Varela APRN [facility] [place] [address] Stacey Ly, CHANG [facility] [place] [address] S/P gastric bypass; Disorder of iron metabolism Social History Tobacco Use Types Packs/Day Years Used Date Smoking Tobacco: Never Smokeless Tobacco: Never Alcohol Use Standard Drinks/Week Comments Not Currently 0 (1 standard drink = 0.6 oz pur e alcohol) [facility] Inpatient Questions Answer Date [...] Sign Reading Time Taken Comments Blood Pressure 115/70 08/30/2023 1:43 PM EDT Pulse 73 08/30/2023 1:43 PM EDT Temperature 36.7 ??C (98 ??F) 08/30/2023 1:43 PM EDT Respiratory Rate - - Oxygen Saturation 100% 08/30/2023 1:43 PM EDT Inhaled Oxygen Concentration - - Weight 62.4 kg (137 lb 9.6 oz) 08/30/2023 1:43 P M EDT Height 162.6 cm (5' 4) 08/30/2023 1:43 PM EDT Body Mass Index 23.62 08/30/2023 1:43 PM EDT documented in this encounter Progress Notes * Anni Varela, CULL GRADER - 08/30/2023 2:00 PM [place] [address] Reason for visit: Bariatric Surgery follow up visit Subjective: Leandra Wilks is s/p laparoscopic Saúl-en-Y gastric bypass on 01/10/[address] Borrero, she presents today for 8 month post bariatric surgery follow up. Leandra's early post operative course was complicated by difficulty with diet (poor PO intake, nausea, vomiting) which required readmission 03/18-03/29/23. Workup included diagnostic laparoscopy, UGI series, upper endoscopy. While admitted she also underwent neuro evaluation re: vision changes, dizziness. 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 At our last visit in April, Leandra was tolerating the diet overall, with low/variable protein intake and minimum 48 oz fluids. At that point she was no longer having nausea but still had discomfort with PO intake (stable since surgery). This pattern of intake continued until the last week when she d eveloped low abdominal pain with nausea and poor appetite which has led to limited PO intake. Patient reports her abdominal pain started 4 days ago. The pain is located across the low abdomen. Pain is intermittent. Episodes occur 4x/day and lasts 20 minutes. The pain is rated 7/10 and is described as crampy. No home treatments thus far. The pain improves with sleeping. Patient denies correlation to bowel movements. No correlation to food intake (but associated nausea has led to minimal intake and poor appetite). Endorses associated nausea but no vomiting. No associated diarrhea or constipation. BM are normal (daily without meds). Of note, patient is s/p cholecystectomy. Leandra saw her OBGYN for evaluation and has an ultrasound ordered. She notes she previously had an ovarian cyst which caused similar symptoms. Intake yesterday: 1 hard boiled egg, several pretzels, 16 oz water.Patient denies use of NSAIDs, nicotine and alcohol. Patient denies black/tarry stool, hematemesis and presyncope/syncope. Leandra also reports her mood is fine. She is seeing her therapist sporadically. Labs at last visit showed low folate and elevated ferritin. Interim Health: Patient reports health has been stable overall. No bariatric related surgeries, hospitalizations, or ED visits since the last visit. No kidney stones or atraumatic fractures. Current Supplements: Bariatric Expert gummy 2/day No calcium Vit D3 2,000 IU daily Bariatric Expert Hair gummy (5000 mcg biotin) *(Patient Prefers a pills to gummies) Pt follows with PCP/specialist for disease management and age specific screening. Pre-Bariatric Surgery Obesity related medical issues: Denies [...] c/o restless leg, endorses hair thinning/loss. Neuro: no c/o paresthesias, endorses change in memory (started with the dizziness). CV: no c/o chest pain or palpitations. Pulm: denies SOB or cough. GI: as above HOUSE PLAYER: s/p hyst. Skin: Endorses redundant skin, no [...] 170 29.3 70% 08/30/23 137 23.6 109% Objective: BP 115/70 Pulse 73 Temp 36.7 ??C (98 ??F) Ht 162.6 cm (5' 4) Wt 62.4 kg (137 lb 9.6 oz) SpO2 100% BMI 23.62 kg/m?? Physical Exam General: Alert, pleasant, NAD, appears well. Abdomen: Soft, non-distended, non-tender. Resp: No increased work of breathing. Speaking in full sentences. No cough/wheeze witnessed. Skin: Minimal excess skin noted over abdomen. Skin is warm and dry. No rash noted on exam today. Psychiatric: Normal mood and affect. Appropriate eye contact. No results found for this or any previous visit (from the past 72 hour(s)). Assessment /Plan: 43 y.o. female who is 8 months s/p Saúl-en-Y gastric bypass with 109% of excess body weight lost. Patient with continued dizziness/visual symptoms, now with memory changes. Recommend further follow up with ophthalmology and PCP. Abdominal pain: low abdomen, pending HOUSE PLAYER workup, consistent with previous ovarian cyst per patient.No acute exam findings, VSS. Discussed differentials with patient. Reviewed case with Dr. Borrero. Will move forward with further BSP work up if HOUSE PLAYER work up is negative. Follow up with OBGYN as scheduled. Discussed the importance of continuing to work toward protein/fluid goals in spite of pain. Reviewed ED precautions. Patient verbalizes understanding. S/p bariatric surgery: Patient well below protein and fluid goals (worse since onset of new low abdominal pain). Reviewed importance of meeting nutritional/protein/fluid requirements, tracking food and food choices, pairing carbs with protein, being careful to avoid eating too fast, eating too much, drinking with meals, or not chewing well enough. Discussed nutrient dense foods to try to improve intake/stabilize weight(cheese, nuts, nut butters). Encouraged patient to start with drinking 1 glass of Fairlife milk every morning. Next, try adding 1 cheese stick every afternoon. Discussed the importance of eating on aschedule. Discussed risks associated with alcohol intake after bariatric surgery (increased risk of alcohol misuse/abuse, increased risk of ulcers, empty calorie). Patient has met with roving hand today, please see note for additional details/dietary evaluation. Obesity related co-morbidities: Improved/stable overall, patient to continue to follow with PCP/specialist. Risk for vitamin deficiencies: Will check iron studies, folate, Vit D, Vit B 1, Vit B 12, hemogram, CMP, PTH. Will make additionalrecommendations once lab results are available. Reviewed recommended vitamin/mineral supplements- will make pill recommendations, Leandra does not like the gummies she is taking. See RD note for additional details re: vitamin/mineral supplementation. Pt reminded that a bone mineral density scan (DEXA) is recommended every 2 years after bariatric surgery. RTC in 1 month on telehealth for diet support and in 4 months for 1 year post op visit with labs. Call/rtc sooner prn with questions/concerns or unexplained abdominal pain, prolonged nausea, vomitingor inability to hydrate. Bariatric Program Summary report is availabe for patient's review via e-DH I spent a total of 40 minutes [...] If labwork is done by the primary nurse healthcare manager: please send a copy to the Bariatric Surgery Program, General Surgery Clinic, [facility], or fax [phone] * Stacey Ly RD - 08/30/2023 2:00 PM EDT Bariatric Surgery Program Nutrition Progress Note Encounter Type: follow up SUBJECTIVE: Topics Discussed/Patient Concerns: Pt reports lower abdominal pain for the last 4 days. States it is worse with eating. Further evaluation by Anni Varela APRN. Pt is below protein and fluid goals. Discussed strategies for increasing intake. Advised pt to eat at regular meal times Advised pt to use protein drinks and Fairlife milk between meals to help increase protein, calorie,and fluid intake Advised pt to avoid eating grinders and pizza as bread is poorly tolerated, encouraged pt to focus on high protein foods first Social history: on disability for multiple medical issues. lives w BF w 3 of her sons (18-21). Has 4 children. Social support: BF, mom, mental health counselor, best friend, sons Hobbies: likes to Immediately, singing Vision at 2 years post-op: Healthier [...] 06/17/21 228# 64 39.1 Initial program weight 11/22/22 228.8# 64 39.3 1st pre-op visit [facility] % Surgery 01/22/23 1.5 weeks post-op (tele-health, no weight reported) 01/29/23 207# 26% 35.5 3.5 wks post-op 02/11/23 1 month post-op (not discussed) 04/26/23 170.8# 70% 29.3 4 months post-op 08/30/23 138# 109% 23.7 8 mo post-op [place] Body Weight (based on BMI of 25): 146# 30-70% Excess Weight Loss: 171-204#; 50% Excess Weight Loss: 187# MEDICATIONS: Vitamin/Mineral Supplements (reported by patient): Pt to get labs drawn after today's visit, supplement recommendations to follow. Supplement Type Brand/Form Dosage/Amount Frequency Comments Multivitamin Bariatric Expert 2 gummies daily Advised pt to switch to Expert Planet 1/day MVM, iron level based on lab results Calcium none Advised pt to start calcium citrate chews, 1 chew, twice daily Vitamin B12 Iron Vitamin D3 2 gummies (2,000 IU total) daily Based on labs Bariatric Experts Hair gummy 2 gummies Contains 5,000 mcg biotin Food Allergies/Intolerances: anything chocolate, candy, sweet Tracking Intake: None 24-Hour Intake: Pt reports intake was low yesterday d/t abdominal pain. Pt states prior to pain starting she would eat beef jerky and popcorners chips throughout the day. States she would also snack on an apple, cheese or grapes for lunch, and that a typical dinner would be 1/4 of a paint grinder stone mill s/w. Ptalso states she eats 1/2c-1c pistachios most days. Pt states fluid intake was 32-48 oz per day prior to abdominal pain starting. Breakfast 1 hard boiled egg AM Snack Lunch PM Snack Dinner HS Snack 2-3 small pretzels Protein/ grams per day: <60g Hydrating fluids- oz/ day: 16.9 oz water Soda: Avoids-cannot tolerate ETOH: No alcohol since [...] In the past month, pt has vomited/regurgitated: 1x in last month, believes it was something like cake Constipation/Diarrhea: None. BM once per day. Not taking anything for it. Exercise: not discussed ASSESSMENT: Summary of Weight Loss: Leandra Wilks returns for routine follow-up at 8 months s/p surgery. Her excess weight loss is at 109%. Pt is not tolerating the diet and is below protein and fluid goals. Discussed strategies forincreasing intake. Advised pt to eat at regular meal times. Advised pt to use protein drinks and Fairlife milk between meals to help increase protein, calorie, and fluid intake. Advised pt to avoid eating grinders and pizza as bread is poorly tolerated, encouraged pt to focus on high protein foods first. Reviewed supplements, advised pt to take supplements as listed above. Pt to get labs drawn after today's visit, additional supplement recommendations to follow. NUTRITION INTERVENTION & MONITORING: Provided support/encouragement and reinforced importance of meeting nutritional goals. Aim for 60-80g of protein/day- eat protein at all meals and snacks, eat protein first Aim for 48-64 oz hydrating fluid/day eat at regular meal times use protein drinks and Fairlife milk between meals to help increase protein, calorie, and fluid intake avoid eating grinders and pizza as bread is poorly tolerated Reviewed vitamin and mineral supplement recommendations. Multivitamin with minerals- Bariatric Multivitamin 1 pill per day- [facility] Expert Planet, iron level based on labs Calcium citrate 500-600 mg with vitamin D twice daily. (2 pills twice per day or 1 chew twice daily) Vitamin D- based on labs Evaluation by nurse practitioner today. F/u in 1 mo via telehealth, sooner if requested. documented in this encounter Plan of Treatment Scheduled Orders Name Type Priority Associated Diagnoses Orde r Schedule Vitamin B12 Lab Routine S/P gastric bypass Disorder of iron metabolism Expected: 12/03/2023 (Approximate), Expires: 03/03/2024 Scheduled Procedures Name Priority Associated Diagnoses Date/Ti [...] psychologist to work on eating behaviors Health Mechanical Artist is sending hand-outs with exercises for mindful [...] this encounter Results * Vitamin D, 25-Hydroxy (01/10/2024 12:06 PM EST) 25-OH Vit D Total 37 21 - 100 ng/mL [facility] 25-OH Vit D Interp Sufficient [facility] Blood 01/10/2024 12:0 6 PM EST 01/10/2024 12:17 PM EST Narrative Resulting Agency Comment Spec In Lab Anni Varela APRN CHEMISTRY ORDERABL ES [facility] [place] [address] * Vitamin B1, whole blood (01/10/2024 12:06 PM EST) Vit B1 Lvl WB 160 70 - 180 nmol/L [facility] Comment: ADDITIONAL INFORMATION This test was developed and its performance characteristics determined by [facility] in a manner consistent with CLIA requirements. This test has not been cleared or approved by the U.S. Food and Drug Administration. Test Performed by: [facility] - [address] [address] Manager Program: Erlin Orlando M.D. Ph.D.; CLIA# [id number] Blood 01/10/2024 12:0 6 PM EST 01/10/2024 1:47 PM EST Narrative Resulting Agency Comment Spec In Lab Anni E Bee CULL GRADER CHEMISTRY ORDERABL ES Performing Organization Address City/[facility]/ZIP Co de Phone Number [facility] [place] [address] * PTH (01/10/2024 12:06 PM EST) PTH 45 15 - 65 pg/mL [facility] Blood 01/10/2024 12:0 6 PM EST 01/10/2024 12:17 PM EST Narrative Resulting Agency Comment Spec In Lab Anni E Bee CULL GRADER CHEMISTRY ORDERABL ES Performing Organization Address [facility] Co de Phone Number [facility] [place] [address] * (ABNORMAL) Iron and TIBC (01/10/2024 12:06 PM EST) Pathologist [facility] [place] Iron 119 30 - 150 mcg/dL [facility] TIBC 245(L) 250 - 450 mcg/dL [facility] Iron Saturation 49 20 - 50 % [facility] Blood 01/10/2024 12:0 6 PM EST 01/10/2024 12:17 PM EST Narrative Resulting Agency Comment Spec In Lab Anni E Bee CULL GRADER CHEMISTRY ORDERABL ES Performing Organization Address [facility]/ZIP Co de Phone Number [facility] [place] [address] * (ABNORMAL) Hemogram (01/10/2024 12:06 PM EST) WBC 5.4 4.0 - 9.5 x10(3)/[facility] RBC 3.67(L) 4.00 - 5.21 x10(6)/[facility] Hemoglobin 11.3(L) 11.7 - 15.5 g/dL [facility] Hematocrit 32.8(L) 35.7 - 45.8 % [facility] MCV 89.4 82.6 - 94.4 [facility] MCH 30.8 27.1 - 32.0 pg [facility] MCHC 34.5 31.7 - 35.0 g/dL [facility] Platelets 291 145 - 357 x10(3)/[facility] RDWSD 42.4 37.0 - 46.0 [facility] RDWCV 12.9 11.5 - 14.1 % [facility] MPV 9.6 7.6 - 12.9 [facility] nRBC % Auto 0.0 % [facility] nRBC Abs Auto 0.000 0.000 - 0.000 x10(3)/[facility] Blood 01/10/2024 12:0 6 PM EST 01/10/2024 12:17 PM EST Narrative Resulting Agency Comment Spec In Lab Anni E Nichole CULL GRADER HEMATOLOGY ORDERAB LES Performing Organization Address City/[facility]/ZIP Co de Phone Number [facility] [place] [address] * Folate, serum (01/10/2024 12:06 PM EST) Pathologist [facility] Folate Lvl 14.5 4.8 - 24.2 ng/mL [facility] Blood 01/10/2024 12:0 6 PM EST 01/10/2024 12:17 PM EST Narrative Resulting Agency Comment Spec In Lab Anni E Bee CULL GRADER CHEMISTRY ORDERABL ES Performing Organization Address City/[facility]/ZIP Co de Phone Number [facility] [place] [address] * (ABNORMAL) Ferritin (01/10/2024 12:06 PM EST) Ferritin 317(H) 6 - 175 ng/mL [facility] Comment: Please note that as of 10/23/2023, the reference intervals for Ferritin have been updated. Blood 01/10/2024 12:0 6 PM EST 01/10/2024 12:17 PM EST Narrative Resulting Agency Comment Spec In Lab Anni Varela BRYANNA CHEMISTRY ORDERABL ES [facility] [place] [address] * (ABNORMAL) Comprehensive metabolic panel (non-fasting) (01/10/2024 [...] Anni E Nichole GOULD CHEMISTRY ORDERABL ES [facility] [place] [address] documented in this encounter Visit Diagnoses Diagnosis S/P gastric bypass Bariatric surgery status Disorder of iron metabolism Other disorders of iron metabolism documented in this encounter Care Teams Tube Coverer Relationship Specialty Start Date End Date Sree High APRN [address] [place] [address] PCP - General Family Medicine 12/19/22 documented as of this encounter
--- OUTSIDE RECORDS SUMMARY | 2024-06-01 06:53 | XMS_ITS | Encounter Summary ---
Author Organization [facility] Address [facility] [place] [address] Care Team Providers Care Machine Presser Name Role Phone Sree High APRN Primary Care Provider [phone] Reason for Referral * Diagnostic Test (Routine) - Closed Specialty Diagnoses / Procedures Referred By Chela doyle Referred To Contact Radiology Diagnoses Biliary stricture Procedures MRI Cholangiopancreatography wwo Contrast Sunshine Yen MD [facility] [place] [address] [facility] [place] [address] Referral ID Status Reason Start Date Expiration Date V isits Requested Visits Authorized [id number] Closed Specialty Service Requested 07/23/2023 01/20/2025 1 1 Reason for Visit * Consultation (Routine) - Closed Specialty Diagnoses / Procedures Referred By Chela doyle Referred To Contact Gastroenterology Diagnoses 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, hx of saúl en y gastric bypass dec 2022 Felicia Lee MD [facility] [place] [address] [facility] [place] [address] [place] [address] Referral ID Status Reason Start Date Expiration Date V isits Requested Visits Authorized [id number] Closed Consult, Test & Treat 03/21/2023 03/20/2024 1 1 Encounter Details Date Type Department Care Team (Latest Contact Info) Description 07/23/2023 2:00 PM EDT TH Visit (TeleHealth) Gastroenterology at [facility] [place] [address] Sunshine Yen MD [facility] [place] [address] Biliary stricture; Screening for colon cancer Social History Tobacco Use Types Packs/Day Years Used Date Smoking Tobacco: Never Smokeless Tobacco: Never Alcohol Use Standard Drinks/Week Comments Not Currently 0 (1 standard drink = 0.6 oz pur e alcohol) [facility] Inpatient Questions Answer Date [...] as of this encounter Progress Notes * Sunshine Yen MD - 07/23/2023 2:00 PM EDT Images from the original note were not included. GASTROENTEROLOGY TELEHEALTH PROGRAM - NEW PATIENT VISIT Chief Complaint: Leandra Wilks is a 43 y.o. patient referred for consultation by Dr. Lee for?PSC History of Present Illness: 43 y.o. female with medical history significant for morbid obesity, GERD, CHUN, IBS, depression and laparoscopic saúl en y gastric bypass on 01/10/23. She had normal liver enzymes in 11/2022 prior to surgery, but was noted to have elevated liver enzymes after surgery. Her only new medications were pantoprazole and Carafate. She had N/V post-operatively. She had a second surgery for lysis of adhesion in March 2023. She reports N/V improved after the surgery in March, but continues to note abdominal pain after eating. She reports the abdominal pain is periumbilical, cramps,occurs a few minutes of after eating (with all foods), resolves within 30-45 minutes. She also has been having dumping syndrome. She has lost 70 lbs. No family history of liver disease. No EtOH sincegastric bypass, but rare EtOH prior to surgery. Only viral Hep risk factor is tattoos, all professionally done, last one in 10/2022. HIV and Hep C ab negative in 12/2021. She reports having jaundice 10 years ago, she had GB surgery after this episode for stones. Latest Reference Range & Units 12/18/22 15:47 03/18/23 15:49 03/20/23 02:32 03/21/23 03:46 03/22/23 04:17 03/23/23 03:39 03/25/23 03:31 03/26/23 04:00 03/27/23 03:50 04/26/23 15:07 Total Bilirubin 0.2 - 1.3 mg/dL 0.3 1.4 (H) 1.0 0.9 0.9 0.7 0.6 0.6 0.7 0.6 Bili, Direct 0.0 - 0.3 mg/dL 0.6 (H) 0.4 (H) Alk Phos 35 - 105 unit/L 103 152 (H) 111 (H) 116 (H) 118 (H) 107 (H) 115 (H) 119 (H) 111 (H) 120 (H) AST 0 - 30 unit/L 16 74 (H) 42 (H) 24 30 39 (H) 43 (H) 41 (H) 40 (H) 33 (H) ALT 0 - 30 unit/L 17 87 (H) 57 (H) 43 (H) 37 (H) 37 (H) 42 (H) 42 (H) 42 (H) 40 (H) (H): Data is abnormally high MRCP 03/2023: Beaded-strictured appearance of the intrahepatic biliary ducts extending into the most cranial aspect of the common hepatic duct. Differential diagnosis would include primary sclerosing cholangitis (PSC) (most commonly), ischemic cholangiopathy, HIV-associated cholangitis, chemotherapy-induced cholangitis, IgG4 disease, amongst others. Review of systems: 14-point review of systems reviewed and negative except as above. Medications: Outpatient Medications Prior to Visit Medication Sig Dispense Refill ondansetron ODT (Zofran-ODT) 4 mg disintegrating tablet Take 1 tablet by mouth every 8 hours. 20 tablet 0 acetaminophen (Tylenol) 325 mg tablet Take 2 tablets by mouth every 6 hours as needed for Pain. 30 tablet 1 polyethylene glycoL (Miralax) 17 gram/dose Powder Take 17 g by mouth daily. docusate sodium (Colace) 100 mg capsule Take 1 capsule by mouth 2 times daily as needed for Constipation. Oxytrol 3.9 mg/24 hr Patch Semiweekly Change 1 patch on the skin twice a week. pantoprazole EC (Protonix) [address] tablet Take 20 mg by mouth daily. cholecalciferol, Vitamin D3, 50 mcg (2,000 unit) Capsule Take 1 capsule by mouth daily. Certavite-Antioxidant 18-400 mg-mcg Tablet Take 1 tablet by mouth daily. ondansetron ODT (Zofran-ODT) 4 mg Tablet, Rapid Dissolve Take 1 tablet by mouth every 8 hours as needed for Nausea. 20 tablet 0 Emgality Pen 120 mg/mL Pen Injector Inject 120 mg as directed every 30 days. propranoloL (Inderal) 20 mg Tablet Take 20 mg by mouth 2 times daily. cyclobenzaprine (Flexeril) 5 mg Tablet Take 5 mg by mouth 3 times daily as needed. FLUoxetine (PROzac) 20 mg Capsule Take 20 mg by mouth Daily. latanoprost (XALATAN) 0.005 % Drops Place 1 drop into both eyes nightly. 3 PROAIR HFA 90 mcg/actuation HFA Aerosol Inhaler Inhale 1 puff into the lungs every 6 hours as needed. 2 No facility-administered medications prior to visit. Allergies: has No Known Allergies. Past Medical History: has no past medical history on file. Past Surgical History: has a past surgical history that includes Cholecystectomy; Appendectomy; Abdominal exploration surgery (10/31/2004); Hysterectomy, vaginal (05/12/2015); Carpal tunnel release (Bilateral); Lap Gastric Bypass/Saúl-En-Y (17940) (N/A, 01/10/2023); Upper GI Endoscopy, Diagnostic (92448) (N/A, 01/10/2023); Upper GI Endoscopy, Diagnostic (11250) (N/A, 03/05/2023); Upper GI Endoscopy,Diagnostic (16452) (N/A, 03/20/2023); Lap, Diagnostic Abdomen (70902) (N/A, 03/22/2023); and Freeing Bowel Adhesion, Enterolysis (38023) (N/A, 03/22/2023). Family History: Denies family history of colon cancer, IBD, liver disease, or celiac disease in mother father or other family members Social History: reports that she has never smoked. She has never used smokeless tobacco. She reports that she does not currently use alcohol. She reports that she does not currently use drugs. Physical exam: No Physical Examination performed during this telemedicine visit Laboratory studies, imaging, and procedures (my review of prior records): Laboratory Appointment on 04/26/2023 Component Date Value Ref Range Status 25-OH Vit D Total 04/26/2023 41 21 - 100 ng/mL Final 25-OH Vit D Interp 04/26/2023 Sufficient Final Vitamin B-12 04/26/2023 631 232 - 1,245 pg/mL Final Vit B1 Lvl WB 04/26/2023 94 70 - 180 nmol/L Final PTH 04/26/2023 41 15 - 65 pg/mL Final WBC 04/26/2023 6.8 4.0 - 9.5 x10(3)/mcL Final RBC 04/26/2023 4.45 4.00 - 5.21 x10(6)/mcL Final Hemoglobin 04/26/2023 13.2 11.7 - 15.5 g/dL Final Hematocrit 04/26/2023 38.9 35.7 - 45.8 % Final MCV 04/26/2023 87.4 82.6 - 94.4 fL Final MCH 04/26/2023 29.7 27.1 - 32.0 pg Final MCHC 04/26/2023 33.9 31.7 - 35.0 g/dL Final Platelets 04/26/2023 458 (H) 145 - 357 x10(3)/mcL Final RDWSD 04/26/2023 47.7 (H) 37.0 - 46.0 fL Final RDWCV 04/26/2023 14.7 (H) 11.5 - 14.1 % Final MPV 04/26/2023 9.8 7.6 - 12.9 fL Final nRBC % Auto 04/26/2023 0.0 % Final nRBC Abs Auto 04/26/2023 0.000 0.000 - 0.000 x10(3)/mcL Final Iron 04/26/2023 73 30 - 150 mcg/dL Final TIBC 04/26/2023 287 250 - 450 mcg/dL Final Iron Saturation 04/26/2023 25 20 - 50 % Final Folate Lvl 04/26/2023 6.8 4.8 - 24.2 ng/mL Final Ferritin 04/26/2023 366 (H) 15 - 150 ng/mL Final Glucose Lvl 04/26/2023 85 65 - 199 mg/dL Final BUN 04/26/2023 8 8 - 18 mg/dL Final Creatinine 04/26/2023 0.52 (L) 0.70 - 1.20 mg/dL Final Sodium 04/26/2023 140 135 - 145 mmol/L Final Potassium 04/26/2023 3.0 (CRIT) 3.5 - 5.0 mmol/L Final Chloride 04/26/2023 102 98 - 107 mmol/L Final CO2 04/26/2023 25 22 - 31 mmol/L Final Anion Gap 04/26/2023 13 5 - 15 mmol/L Final Calcium 04/26/2023 9.8 8.5 - 10.5 mg/dL Final Total Protein 04/26/2023 7.2 6.1 - 8.0 g/dL Final Albumin 04/26/2023 4.5 3.2 - 5.2 g/dL Final AST 04/26/2023 33 (H) 0 - 30 unit/L Final ALT 04/26/2023 40 (H) 0 - 30 unit/L Final Alk Phos 04/26/2023 120 (H) 35 - 105 unit/L Final Total Bilirubin 04/26/2023 0.6 0.2 - 1.3 mg/dL Final Estimated GFR 04/26/2023 117 >=60 mL/min/1.73 m?? Final Assessment/Plan: Ms. Wilks is a 43 y.o. patient referred for elevated liver enzymes. She underwent an MRCP in March of this year which showed mild beaded appearance to the biliary tree suggestive of but not diagnosticof primary sclerosing cholangitis. Other differentials would include HIV associated cholangiopathy,IgG4 disease, or ischemic injury. Serum IgG4 levels were low. Prior testing for HIV was negative inFebruary 2021, although she does have a new tattoo since that time. Of note she does have a remote history of cholecystectomy, so ischemic injury is potentially possible. In review she has had prior CT scans of the abdomen, but no prior ultrasounds or MRI for comparison. At the time of her elevatedliver enzymes she had significant nausea and vomiting for which she was hospitalized in the post bariatric period. We discussed that this potentially was the cause of her mild elevation of her liver enzymes, and therefore I recommended a repeat check of her liver enzymes now. If her liver enzymes are still elevated would obtain viral serologies, work-up for autoimmune liver disease, and genetic ca uses of liver disease. We discussed that these findings potentially could be PSC and I recommended an MRCP in 1 year for follow-up. As she is 43 she is due for average risk screening colonoscopy which we will arrange at this time, also discussed that we could assess for signs of inflammatory bowel disease as this is associated with PSC. Follow-up will be pending the results of the above investigations. The patient was located in [place] at the time of their visit. @TIMEBASEDBILLING@ TIME SPENT 30 minutes Time spent during encounter with patient including counselin minutes An additional 10 minutes were spent before and after the visit on this same day in preparation for the appointment, ordering tests and/or prescriptions, communicating with referring providers and completing documentation Approximate total time devoted to this single encounter: 40 minutes. Sunshine Yen MD [facility] [place] [address] documented in this encounter Plan of Treatment Scheduled Orders Name Type Priority Associated Diagnoses Orde r Schedule ENDOSCOPY CASE REQUEST: COLONOSCOPY, DIAGNOSTIC (WRVU 3.26) Procedures Routine Biliary stricture Screening for colon cancer Ordered: 07/23/2023 Scheduled Procedures Name Priority Associated Diagnoses Date/Ti [...] On track(2021 10:28 AM EST) Jill Colmenares, SENIOR WRITER Note: Mindfulness/deep breathing practice to reduce cortisol -try for at least 10 minutes a day -try an ap such as headspace I have referred you to our psychologist to work on eating behaviors [employer] is sending hand-outs with exercises for mindful eating, The Pause/STOP and Urge surfing. Patient will review and try implementing some behaviors before we meet again. movement Lifestyle On track(2021 10:29 AM EST) Jill Colmenares, SENIOR WRITER Note: Exercise goal is 150 min a [...] documented as of this encounter Results * MRI Cholangiopancreatography wwo Contrast (03/23/2024 2:39 PM EDT) WORKSTATION ID [id number] RAD Anatomical Region Laterality Modality Magnetic Resonan ce Impressions 03/24/2024 8:56 AM EDT 1. ??Stable central intrahepatic stricturing/dilation. 2. ??No suspicious hepatic lesion. Thank you for letting us participate in the care of this patient. ??If you are a health care provider and have any questions regarding this report, please contact the number below. ??For patients who have questions please contact the health progressive care manager that requested your imaging first. ? Narrative [...] patients who have questions please contactthe health progressive care manager that requested your imaging first. Sunshine Yen MD [facility] [place] MRI ORDERABLES documented in this encounter Visit Diagnoses Diagnosis Biliary stricture Obstruction of bile duct Screening for colon cancer Special screening for malignant neoplasms, colon Biliary stricture Obstruction of bile duct documented in this encounter Care Teams Machine Presser Relationship Specialty Start Date End Date Sree High, SENIOR WRITER [address] [place] [address] PCP - General Family Medicine 12/19/22 documented as of this encounter
--- OUTSIDE RECORDS SUMMARY | 2024-06-01 06:54 | XMS_ITS | Encounter Summary ---
Author Organization [facility] [place] [address] Care Team Providers Care Supervisor Contact Lens Name Role Phone Sree High APRN Primary Care Provider [phone]- [phone] Reason for Visit * Auth/Cert (Routine) Specialty Diagnoses / Procedures Referred By Contangelo t Referred To Contact Diagnoses Abdominal pain Procedures ER Iram Wright MD [facility] [place] [address] [facility] Referral ID Status Reason Start Date Expiration Date Visits Re quested Visits Authorized [id number] 1 1 Encounter Details Date Type Department Care Team (Late st Contact Info) Description 03/22/2023 7:26 PM EDT Anesthesia Event [place] [address] Siddharth Coker MD [facility] [place] [address] Yasemin Rivera CRNA [facility] [address] Anesthesia Record Procedure Summary Procedure Name Responsible Anesthesiologist Anesthesia Start Time Anesthesia Stop Time LAPAROSCOPY, DIAGNOSTIC, ABDOMEN (WRVU 5.14) (Abdomen) Siddharth Coker MD 03/22/23192503/22/232124 Events Date Time Event Comment 03/22/20231925 AN Verify 1925 Start 1925 An Start Data 1931 1938 An Induction 1941 An Intubation 1941 Anesthesia Ready 1951 Quick Note OGT placed and placement confirmed 1953 Procedure Start 2013 Quick Note OGT removed to suction 2016 Extubation/LMA Out 2022 an stop data 2124 Recovery or ICU Handoff Kamini ent care was transferred to the destination unit staff after review of the patient's medical history, current anesthetic/surgical status and plan, according to the Provider Handoff Checklist. 2124 Stop 2124 Quick Note Patient resting comfortably in PACU. Easily awoken. Alert and oriented. No complaints. Stable vital signs. Meds Name Total fentaNYL 100 mcg IV Lidocaine 50 mg Propofol 200 mg Rocuronium 50 mg PHENYLephrine 80 mcg Ondansetron 4 mg Dexamethasone 4 mg ceFAZolin 2 g Sugammadex 200 mg acetaminophen IV 650 mg ketorolac (Toradol) (30 mg/mL) injection 30 mg Lactated Ringers 500 mL * Agents Name O2 Air N2O Sevoflurane (et) * Blood No blood administrations on file. Lines, Drains, and Airways Type Details Placement Removal Incision 03/22/23; 2006; medi al; abdomen; laparoscopic punctures (specify); lap sites x 3 03/22/232006 by Maria Ines Condon, RN (RETIRED) Peripheral IV Line - Single Lumen 03/18/23; 1556; basilic vein (medial side of arm), right; [id number]-eekolm catheter system; 20 gauge; 03/25/23; 1754 03/18/23 1556 by Stacey Ramos RN 03/25/231753 by Raul Muhammad, RN (RETIRED) Peripheral IV Line - Single Lumen 03/19/23; 1536; cephalic vein (lateral side of arm), left; [id number]-psq-dzpqgo catheter system; Ultrasound Guidance; Yes - US guidance used but Image NOT saved; 22 gauge, 1 in length, 3/4 in length; Halle Escobar RN VAS; distraction, intradermal injection, tolerated well, appears comfortable; 1; cephalic vein (lateral side of arm), left; 03/25/23; 1754 03/19/23 1536 by Halle Escobar 03/25/231753 by Raul Muhammad, RN ETT Mask Ventilation: Ea sy (1); ETT Type: Cuffed; ETT Size: 7.5 mm; Mac Blade: 3; Notes: Asleep, Pre-O2, Stylette; Attempts: 1; Laryngoscopy Grade: 1; ETT Placement Verified By: Auscultation, Visual, Capnometry; Secured at Teeth: 22 cm; Inserted by: ZACK Rivera; Removal Date: 03/22/23; Removal Time: 201603/22/23 194 by Yasemin Rivera CRNA 03/22/232016 by Yasemin Rivera CRNA documented in this encounter Social History Tobacco [...] OR Notes * Anesthesia Postprocedure Evaluation - Siddharth Coker MD - 03/22/2023 10:29 PM EDT Department of Anesthesiology Post-procedure Note Patient: Leandra Wilks Procedure Summary Date: 03/22/23 Room / Location: [facility] OR [address] [place] [address] MAIN OR Anesthesia Start: 1925 Anesthesia Stop: Procedures: LAPAROSCOPY, DIAGNOSTIC, ABDOMEN (WRVU 5.14) (Abdomen) @LYSIS OF ADHESIONS, ABD. (WRVU 18.46) (Abdomen) Diagnosis: (failure to thrive s/p RNY gastric bypass) Surgeons: Iram Borrero MD Responsible Provider: Siddharth Coker MD Anesthesia Type: Not recorded ASA Status: Not recorded All Anesthesia Providers: Anesthesiologist: Siddharth Coker MD FLOOR SCRAPER: Yasemin Rivera CRNA Vitals Value Taken Time BP 105/65 03/22/23 2215 Temp 36.3 ??C (97.3 ??F) 03/22/23 2200 Pulse 73 03/22/23 2228 Resp 11 03/22/23 2228 SpO2 97 % 03/22/23 2228 Pain Level 2 03/22/23 2200 Vitals shown include unvalidated device data. Patient [facility]: [facility] Level of Consciousness: Awake and Alert Pain Management: Satisfactory Analgesia PONV: None Cardiovascular Status: At Baseline and Hemodynamically Stable Respiratory Status: At Baseline and Room Air Postoperative Fluid Status: Intravascular EUvolemia Possible Anesthetic Complications: NONE apparent at time of evaluation Final Primary Anesthesia Type: General (The anesthetic type performed was the same as planned.) Comments: Siddharth Coker MD * Anesthesia Preprocedure Evaluation - Siddharth Coker MD - 03/22/2023 7:29 PM EDT Pre-Anesthesia Evaluation for: Leandra Wilks a 43 y.o. female. Procedure(s): LAPAROSCOPY, DIAGNOSTIC, ABDOMEN (WRVU 5.14) @LYSIS OF ADHESIONS, ABD. (WRVU 18.46) Patient Active Problem List Diagnosis Date Noted ??? *Abdominal pain 03/18/2023 ? ? Severe obesity (BMI >= 40) 01/10/2023 ??? CHUN (obstructive sleep apnea) 01/02/2022 ??? Pain in right foot 06/07/2021 ??? Glaucoma 06/07/2021 ??? Fibromyalgia 06/07/2021 ??? Osteoarthritis, multiple sites 06/07/2021 ??? Adult BMI 40.0-44.9 kg/sq m 06/07/2021 ??? Depression with anxiety 06/07/2021 ??? Calculi, ureter 01/17/2016 ??? Back pain 01/03/2016 ??? Mood disorder 01/03/2016 ??? Chronic pelvic pain in female 08/10/2015 ??? Unspecified dyspareunia 11/26/2014 ??? Endometriosis 10/25/2014 ??? Irritable bowel syndrome with diarrhea 05/03/2011 No past medical history on file. Past Surgical History: Procedure Laterality Date ??? ABDOMINAL EXPLORATION SURGERY 10/31/2004 b/l salpingectomy and removel enodmetrial implantsin cul de sac ??? APPENDECTOMY ??? CARPAL TUNNEL RELEASE Bilateral ??? CHOLECYSTECTOMY ??? HYSTERECTOMY, VAGINAL 05/12/2015 ??? PRO LAP GASTRIC BYPASS/RENATO-EN-Y N/A 01/10/2023 @LAPAROSCOPIC GASTROPLASTY W/ RENATO-EN-Y CONSTRUCTION (WRVU 29.4) performed by [facility]at [facility] MAIN OR ??? PRO UPPER GI ENDOSCOPY, DIAGNOSTIC N/A 01/10/2023 EGD, UPPER GI ENDOSCOPY performed by Iram Borrero MD at [facility] MAIN OR ??? PRO UPPER GI ENDOSCOPY, DIAGNOSTIC N/A 03/05/2023 EGD, UPPER GI ENDOSCOPY (WRVU 2.09) performed by Iram Borrero MD at [facility] MAIN OR ??? PRO UPPER GI ENDOSCOPY, DIAGNOSTIC N/A 03/20/2023 EGD, UPPER GI ENDOSCOPY (WRVU 2.09) performed by Gerber Salomon MD at [facility] ENDOSCOPY Social History Tobacco Use ??? Smoking status: Never ??? Smokeless tobacco: Never Substance Use Topics ??? Alcohol use: Not Currently Social History Substance and Sexual Activity Drug Use Not Currently No Known Allergies Medications: MAR and/or home medications have been reviewed. Physical Exam: Preprocedure Vitals Current as of 03/22/231925 BP: 139/82 Pulse: Resp: 16 SpO2: 100 Temp: 36.6 ??C (97.9 ??F) Height: 162.6 cm (5' 4) (03/19/23) Weight: 78.5 kg (173 lb) (03/19/23) BMI: 29.69 IBW: 54.7 kg (120 lb 10.7 oz) Last edited 03/22/231912 by WILLAM Airway Assessment: Mallampati: I TM distance: >3 FB Neck ROM: full Cardiovascular Assessment: Rate: normal Pulmonary Assessment: unlabored breathing Dental Assessment: - normal exam Misc Assessment: IV access: Peripheral line Last Filed Perioperative Cognitive Screening None Anesthesia Plan: ASA 3 general, with a(n) intravenous induction 43yoF for diagnostic lap. Hx of of morbid obesity, RnY gastric bypass in Dec 2022 with post-op course complicated by poor PO intake, nausea, abd pain. PMH otherwise of IBS, mood disorder/depression/anxiety, fibromyalgia, osteoarthritis. AnesHx: Tolerated MAC for recent EGD without issue (PPF/predecex/midaz). Previous GA. EMV, DL x1 with MAC 3 grade 1 view, 7.5 ETT @21 cm Plan GETA Region - Other Informed Consent: Anesthetic plan and risks discussed with patient. Plan discussed with FLOOR SCRAPER. Anesthesia Screening documented in this encounter Plan [...] psychologist to work on eating behaviors Health Grill Attendant is sending hand-outs with exercises for mindful [...] MAR Action Action Date Dose Rate Site acetaminophen (Ofirmev) (1,000 mg/100 mL) infusion Intravenous, Administer over 15 Minutes, PRN, Starting on Sat03/22/23 at 1955, Until Sat03/22/23 at 2232, Anesthesia Intra-op, Routine Given 03/22/2023 7:56 PM EDT 650 mg ceFAZolin (Ancef) 1 g in dextrose 5% 50 mL infusion Intravenous, PRN, Starting on Sat03/22/23 at 1950, Until Sat03/22/23 at 2232, Administer over 30 Minutes, Anesthesia Intra-op Given 03/22/2023 7:51 PM EDT 2 g dexAMETHasone (Decadron) injection Intravenous, PRN, Starting on Sat03/22/23 at 1954, Until Sat03/22/23 at 2232, Anesthesia Intra-op, Routine Given 03/22/2023 7:55 PM EDT 4 mg fentaNYL (pf) (50 mcg/mL) multi-dose injection Intravenous, PRN, Starting on Sat03/22/23 at 1939, Until Sat03/22/23 at 2232, Anesthesia Intra-op, Routine Given 03/22/2023 8:09 PM EDT 50 mcg Given 03/22/2023 7:39 PM EDT 50 mcg ketorolac (Toradol) (30 mg/mL) injection Intravenous, PRN, Starting on Sat03/22/23 at 2010, Until Sat03/22/23 at 2232, Anesthesia Intra-op, Routine Given 03/22/2023 8:11 PM EDT 30 mg lactated ringers infusion Intravenous, CONTINUOUS PRN, Starting on Sat03/22/23 at 1926, Until Sat03/22/23 at 2232, Anesthesia Intra-op New Bag 03/22/2023 7:26 PM EDT lidocaine (pf) (Xylocaine) (20 mg/mL) 2% injection syringe Intravenous, PRN, Starting on Sat03/22/23 at 193, Until Sat03/22/23 at 2232, Anesthesia Intra-op, Routine Given 03/22/2023 7:39 PM EDT 50 mg ondansetron (pf) (Zofran) (2 mg/mL) injection Intravenous, PRN, Starting on Sat03/22/23 at 2010, Until Sat03/22/23 at 2232, Anesthesia Intra-op, Routine Given 03/22/2023 8:11 PM EDT 4 mg PHENYLephrine in NS (PF) (JERONIMO-SYNEPHRINE) 0.8 mg/10 mL (80 mcg/mL) multi-dose injection Syringe Intravenous, PRN, Starting on Sat03/22/23 at 2001, Until Sat03/22/23 at 223, Anesthesia Intra-op, Routine Given 03/22/2023 8:02 PM EDT 80 mcg propofoL (Diprivan) 10 mg/mL bolus injection (Anesthesia) Intravenous, PRN, Starting on Sat03/22/23 at 193, Until Sat03/22/23 at 223, Anesthesia Intra-op Given 03/22/2023 7:39 PM EDT 200 mg rocuronium (Zemuron) (10 mg/mL) multi-dose injection Intravenous, PRN, Starting on Sat03/22/23 at 1939, Until Sat03/22/23 at 2233, Anesthesia Intra-op, Routine Given 03/22/2023 7:39 PM EDT 50 mg sugammadex (Bridion) 100 mg/mL injection Intravenous, PRN, Starting on Sat03/22/23 at 2014, Until Sat03/22/23 at 2233, Anesthesia Intra-op, Routine Given 03/22/2023 8:14 PM EDT 200 mg documented in this encounter Care Teams Supervisor Contact Lens Relationship Specialty Start Date End Date Sree High, [employer] [address] [place] [address] PCP - General Family Medicine 12/19/22 documented as of this encounter
--- OUTSIDE RECORDS SUMMARY | 2024-06-01 06:54 | XMS_ITS | Encounter Summary ---
Author Organization [facility] Address [address] [facility] [place] [address] Care Team Providers Care Digital Field Service Technician Name Role Phone Sree High APRN Primary Care Provider [phone]- [phone] Encounter Details Date Type Department Care Team ([facility] st Contact Info) Description 03/22/2023 Interpretation Only Radiology [address] [facility] [place] [id number] Unknown None Social History Tobacco Use Types Packs/Day Years [...] On track(2021 10:28 AM EST) Jill Colmenares, CUSTOMER SUPPLY CHAIN ANALYST Note: Mindfulness/deep breathing practice to reduce cortisol -try for at least 10 minutes a day -try an ap such as headspace I have referred you to our psychologist to work on eating behaviors Health Process Server is sending hand-outs with exercises for mindful eating, The Pause/STOP and Urge surfing. Patient will review and try implementing some behaviors before we meet again. movement Lifestyle On track(2021 10:29 AM EST) Jill Colmenares, CUSTOMER SUPPLY CHAIN ANALYST Note: Exercise goal is 150 min a [...] Procedure Name Priority Date/Time Associated Diagnosis Comments DH OR ENDOSCOPY Routine 03/22/2023 documented in this encounter Results * DH OR Endoscopy (03/22/2023) Anatomical Region Laterality Modality Other 03/22/2023 Narrative 03/22/2023 12:00 AM EDT Photographs - Images Procedure Note Unknown - 03/22/2023 Photographs - Images Unknown EA IMAGES documented in this encounter Visit Diagnoses Not on filedocumented in this encounter Care Teams Digital Field Service Technician Relationship Specialty Start Date End Date Sree High, BRYANNA [address] [place] [address] PCP - General Family Medicine 12/19/22 documented as of this encounter
--- OUTSIDE RECORDS SUMMARY | 2024-06-01 06:54 | XMS_ITS | Encounter Summary ---
Author Organization [facility] [place] [address] Care Team Providers Care Cna Ltc Name Role Phone Sree High APRN Primary Care Provider [phone] Reason for Referral * Consultation (Routine) - Closed Specialty Diagnoses / Procedures Referred By Contac t Referred To Contact Otolaryngology Diagnoses Dizziness Diplopia Joan Solorzano PA [facility] [place] [address] [facility] Otolaryngology [address] [place] [phone] Referral ID Status Reason Start Date Expiration Date V isits Requested Visits Authorized [id number] Closed Consult, Test & Treat 03/29/2023 03/28/2024 1 1 * Physical Therapy (Routine) - Closed Specialty Diagnoses / Procedures Referred By Contac t Referred To Contact Physical Therapy Diagnoses Dizziness Physical deconditioning Diplopia Joan Solorzano PA [facility] [place] [address] Referral ID Status Reason Start Date Expiration Date V isits Requested Visits Authorized [id number] Closed Evaluate and Treat 03/29/2023 09/25/2023 12 12 Reason for Visit * Reason Comments Emesis Dehydration * Auth/Cert (Routine) Specialty Diagnoses / Procedures Referred By Contac t Referred To Contact Diagnoses Abdominal pain Procedures ER Iram Wright MD [facility] [place] [address] [facility] Referral ID Status Reason Start Date Expiration Date Visits Re quested Visits Authorized [id number] 1 1 Encounter Details Date Type Department Care Team (Latest Contact Info) Description 03/18/2023 3:31 PM EDT - 03/29/2023 12:00 PM EDT Hospital Encounter Surgical Unit Level 3 [place] [phone] Pito Mclaughlin MD [facility] [place] [address] Iram Borrero MD [facility] [place] [address] Protein-calorie malnutrition, unspecified severity; Dizziness; Physical deconditioning; Diplopia Discharge Disposition: Home Social History Tobacco Use [...] Sign Reading Time Taken Comments Blood Pressure 115/75 03/29/2023 8:32 AM EDT Pulse 75 03/27/2023 10:56 AM EDT Temperature 37 ??C (98.6 ??F) 03/29/2023 8:32 AM EDT Respiratory Rate 16 03/29/2023 8:32 AM EDT Oxygen Saturation 100% 03/29/2023 8:32 AM EDT Inhaled Oxygen Concentration - - Weight 78.5 kg (173 lb) 03/19/2023 1:57 AM EDT Height 162.6 cm (5' 4) 03/19/2023 1:57 AM EDT Body Mass Index 29.7 03/19/2023 1:57 AM EDT documented in this encounter Discharge Summaries * Natalee Winn MD - 03/29/2023 8:25 AM EDT Images from the original note were not included. General Surgery Discharge Summary Patient Name: Leandra Wilks Patient Age: 43 y.o. : 1980 Attending Physician: Iram Borrero MD Date of Admission: 03/18/2023 Date of Discharge: 02/27/2023 Reason for admission: Nausea, vomiting, dysphagia, abdominal pain Primary Diagnosis: nausea, vomiting Secondary Diagnosis: Patient Active Problem List Diagnosis Code ??? Irritable bowel syndrome with diarrhea K58.0 ??? Back pain M54.9 ??? Chronic pelvic pain in female R10.2, G89.29 ??? Unspecified dyspareunia N94.10 ??? Mood disorder F39 ??? Calculi, ureter N20.1 ??? Pain in right foot M79.671 ??? Endometriosis N80.9 ??? Glaucoma H40.9 ??? Fibromyalgia M79.7 ??? Osteoarthritis, multiple sites M15.9 ??? Adult BMI 40.0-44.9 kg/sq m Z68.41 ??? Depression with anxiety F41.8 ??? CHUN (obstructive sleep apnea) G47.33 ? ? Severe obesity (BMI >= 40) E66.01 ??? Abdominal pain R10.9 ??? Severe protein-calorie malnutrition E43 ??? Diplopia H53.2 ??? Dizziness R42 ??? Physical deconditioning R53.81 Operations and Procedures: Procedure(s): LAPAROSCOPY, DIAGNOSTIC, ABDOMEN (WRVU 5.14) @LYSIS OF ADHESIONS, ABD. (WRVU 18.46) Surgeons: Surgeon(s) and Role: * Iram Borrero MD - Primary * Natalee Winn MD - Fellow - Assisting History of Present Illness:Leandra Wilks is a 43 y.o. female with medical history significant for morbid obesity, GERD, CHUN, IBS, depression and laparoscopic Renato-en-Y gastric bypass on 01/10/23 who has struggled with dysphagia and abdominal pain since surgery who presented 03/18/23 with continued d ysphagia, nausea/vomiting and abdominal pain.. Hospital Course: Patient had outpatient work up without clear cause of gastrointestinal symptoms. She was started onIV fluid. Nutrition labs without signs of obvious malnutrition. She was restarted on her home medications including lamictal at home dose. She was encouraged to increase PO intake. An UGI swallow study was obtained 03/19/2023 - no obstruction. Her diet was advanced. An MRCP 03/19/2023 obtain inpatient for mild transaminitis. 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 Gastroenterology consulted and reported unlikely to be causing symptoms, recommend outpatient follow up with hepatology. Gastroenterology performed a repeat EGD on 03/20/2023 - no acute findings, no obvious ulceration. A CT head 03/21/2023 - no acute findings. Psychiatry were consulted. The patient began complaining of dizziness and double vision. Her lamictal dose was decreased as patient reported she had stopped this medication on her own prior to admission due to nausea/vomiting.Neurology was consulted. MRI brain and orbits were ordered. She was treated empirically for vitamindeficiencies. A diagnostic laparoscopy on 03/22 showed no acute findings effectively completing the surgical work up without identifiable cause for symptoms. Though her nausea and PO intolerance was improving her dizziness and double vision were not. She was noted to have some nystagmus. Eye patch was provided and vestibular therpay was started. MRI brain and orbits were without abnormalities. Her Lamictal was stopped per neurology recommendations with possibility of toxicity causing symptoms. Clinical helicopter officer was consulted who recommended completely stopping Lamictal. Lamictal serum levels were obtained. There were no further neurologic needs per discussion with team. Patient continued to work with physical therapy, occupational therapy, and behavioral therapy. Ophthalmology was consulted without identifiable cause for diplopia. Recommendations for possible ENT consult if symptomspersist and possible ophthalmologic neurologist if needed. Lamictal levels ultimately cameback on low end of normal therapeutic level. Though possible that lamotrigine contributed to symptoms of dizziness and diplopia, this cannot be determined as her symptoms persisted despite low serum levels. Lamotrigine did not appear to be contributing to her symptoms of nausea, abdominal pain, dysphagia. Byday of discharge on 03/29/2023, patient was tolerating a soft diet, voiding, pain had resolved, ambulating with need for continued outpatient physical therapy, and plan for outpatient vestibular therap y, follow up with psychologist, follow up with PCP for psychiatric medication management (had been prescribing her home psychiatric medications), referral to ENT for evaluation of inner ear etiology,outpatient hepatology consult, and routine bariatric surgery follow up. Vital Signs Last value Range last 24hrs Temperature Temp: 37 ??C (98.6 ??F) Temp: [36.7 ??C (98.1 ??F)-37 ??C (98.6 ??F)] Heart Rate Heart Rate: 75 Heart Rate: -- Blood Pressure BP: 115/75 BP: (103-121)/(57-78) Respiratory Rate Resp: 16 Resp: [16-18] SpO2 SpO2: 100 % SpO2: [98 %-100 %] Pertinent Lab Data: Recent Labs 03/27/23 0350 WBC 7.1 HGB 10.9* HCT 31.5* PLATELET 297 Recent Labs 03/27/23 0350 NA 141 K 3.5 CL 105 CO2 25 BUN 10 CREATININE 0.74 GLUCOSE 86 CALCIUM 8.7 MAGNESIUM 0.85 PHOS 4.3 Imaging: CT Head wo Contrast (Generic) Result Date: 03/21/2023 EXAMINATION: CT HEAD WO CONTRAST (GENERIC) CLINICAL HISTORY: dizziness s/p gastric bypass surgery with no intra-abd explanation. eval for intra-cranial tumor TECHNIQUE: CT head performed without intravenous contrast administration. COMPARISON: None FINDINGS: There is no acute intracranial hemorrhage or mass effect. There is no extra axial collection or ventricular dilation. There is no acute confluent ischemic infarct. There are no osseous or extracranial soft tissue lesions identified. No evidence of significant inflammatory sinonasal or mastoid disease. Normal brain CT. Thank you for letting us participate in the care of this patient. If you are a health care provider and have any questions regarding this report, please contact the number below. Forpatients who have questions please contact the health direct care staffer that requested your imagingfirst. Electronically signed by: Erlin Castorena DO, [facility] ([phone]), at 03/21/2023 12:49 PM MRI Brain wwo Contrast (Generic) Result Date: 03/24/2023 EXAMINATION: MRI BRAIN WWO CONTRAST (GENERIC), MRI ORBIT WWO CONTRAST CLINICAL HISTORY: Dizziness, non-specific dizziness, diplopia, rule out stroke? (accession [id number]), right eye weakness, diplopia, concern for possible inferior rectus infiltration or inflamation vs. possible optic neuritis (acce ssion [id number]). Right-sided weakness, diplopia, concerning for possible inferior rectus infiltration or inflammation versus possible optic neuritis. TECHNIQUE: MRI of the brain and orbits was performed before and after the intravenous administration of 16cc Dotarem. COMPARISON: CT head March 21, 2023 FINDINGS: Brain: There are a few scattered punctate nonspecific T2 hyperintensities in subcortical supratentorial white matter, within normal limits for age. Otherwise no abnormal brain parenchymal signal, susceptibility or restricted diffusion. No abnormal brain parenchymal, leptomeningeal or pachy meningeal enhancement. No midline shift, mass effect, hydrocephalus or extra- axial collection. Midline structures are normal. Foramen magnum and basilar cisterns are patent. Normal marrow signal. Expected intracranial vascular flow voids are preserved. Paranasal sinuses are clear. Minimal left greater than right mastoid fluid. Orbits: No abnormal signal or enhancement of the optic nerves. Globes are normal. Extraocular musculature is normal. No intraorbital inflammatory changes or mass. 1. Normal brain. 2. Normal orbits. Thank you for letting us participate in the care of this patient. If you are a health care provider and have any questions regarding this report, please contact thenumber below. For patients who have questions please contact the health direct care staffer that requested your imaging first. Electronically signed by: Lorie Coe MD, [facility] ([phone]), at 03/24/2023 12:20 PM MRI Cholangiopancreatography WO Contrast Result Date: 03/20/2023 EXAMINATION: MRI CHOLANGIOPANCREATOGRAPHY WO CONSTRAST CLINICAL HISTORY:43-year-old female status post Renato-en-Y gastric bypass with abdominal pain and multiple CT examinations and endoscopy. Past medical history of morbid obesity, GERD, obstructive sleep apnea, bowel syndrome, and depression. Dysph agia. Nausea and vomiting. Abdominal pain. TECHNIQUE: Noncontrast MRCP was performed. 3D MIPS were created. COMPARISON: Correlation is made to multiple prior CT of the abdomen and pelvis examinations, the most recent of which is dated March 13, 2023 FINDINGS: Limitations: Lack of intravenous contrast limits evaluation of the visceral organs, gastrointestinal tract, and vascular structures. 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 Inferior thorax: Visualized structures within the inferior thorax are within normal limits. Liver: Normal. Bile ducts: There is a beaded-strictured appearance of the central intrahepatic biliary ducts with stricturing at the confluence of the intrahepatic biliary ducts extending into the cranial aspect of the common hepatic duct. The remainder of the common hepatic duct and common bile duct are normal in course and caliber. There are no intraluminal filling defects. Gallbladder: The gallbladder is surgically absent with surgical clips within the gallbladder fossa. There is a cystic duct remnant. Pancreas: Normal signal intensity. Pancreatic duct: Normal caliber and configuration. Spleen: Normal size and signal intensity. Adrenal glands: Normal. Kidneys: There are afew scattered sub- 5 mm T2 hyperintense likely tiny renal cysts. Bowel and mesentery: Limited evaluation of the distal esophagus is unremarkable. The stomach is under distended, limiting evaluation. There are postsurgical changes from prior Renato-en-Y gastric bypass. There are no dilated segments of small or large bowel where visualized. Lymph nodes: There are no pathologically enlarged lymph nodes. Osseous structures: No focal marrow signal abnormality. Beaded-strictured appearance of the intrahepatic biliary ducts extending into the most cranial aspect of the common hepatic duct. Differential diagnosis would include primary sclerosing cholangitis (PSC) (most commonly), ischemic cholangiopathy, HIV-associated cholangitis, chemotherapy-induced cholangitis, IgG4 disease, amongst others. Thank you for letting us participate in the care of this patient. If you are a health care provider and have any questions regarding this report, please contact the number below. For patients who have questions please contact the health direct care staffer that requested your imaging first. Electronically signed by: Maximo Forrest DO, [facility] ([phone]), at 03/20/2023 7:59 AM Film Library- Storage Only CT Abdomen & Pelvis Result Date: 03/18/2023 This exam is auto-finalizing. It's purpose is for storage only. SCAN DOC: CT SCAN Result Date: 03/18/2023 Ordered by an unspecified provider. SCAN DOC: CT SCAN Result Date: 03/18/2023 Ordered by an unspecified provider. SCAN DOC: CT SCAN Result Date: 03/01/2023 Ordered by an unspecified provider. MRI Orbit wwo Contrast Result Date: 03/24/2023 EXAMINATION: MRI BRAIN WWO CONTRAST (GENERIC), MRI ORBIT WWO CONTRAST CLINICAL HISTORY: Dizziness, non-specific dizziness, diplopia, rule out stroke? (accession [id number]), right eye weakness, diplopia, concern for possible inferior rectus infiltration or inflamation vs. possible optic neuritis (acce ssion [id number]). Right-sided weakness, diplopia, concerning for possible inferior rectus infiltration or inflammation versus possible optic neuritis. TECHNIQUE: MRI of the brain and orbits was performed before and after the intravenous administration of 16cc Dotarem. COMPARISON: CT head March 21, 2023 FINDINGS: Brain: There are a few scattered punctate nonspecific T2 hyperintensities in subcortical supratentorial white matter, within normal limits for age. Otherwise no abnormal brain parenchymal signal, susceptibility or restricted diffusion. No abnormal brain parenchymal, leptomeningeal or pachy meningeal enhancement. No midline shift, mass effect, hydrocephalus or extra- axial collection. Midline structures are normal. Foramen magnum and basilar cisterns are patent. Normal marrow signal. Expected intracranial vascular flow voids are preserved. Paranasal sinuses are clear. Minimal left greater than right mastoid fluid. Orbits: No abnormal signal or enhancement of the optic nerves. Globes are normal. Extraocular musculature is normal. No intraorbital inflammatory changes or mass. 1. Normal brain. 2. Normal orbits. Thank you for letting us participate in the care of this patient. If you are a health care provider and have any questions regarding this report, please contact thenumber below. For patients who have questions please contact the health direct care staffer that requested your imaging first. Electronically signed by: Lorie Coe MD, [facility] ([phone]), at 03/24/2023 12:20 PM SCAN DOC: TELEMETRY STRIPS Result Date: 03/22/2023 Ordered by an unspecified provider. XR Fluoro Barium Swallow (Double Contrast) Result Date: 03/19/2023 EXAMINATION: XR FLUORO BARIUM SWALLOW (DOUBLE CONTRAST) CLINICAL HISTORY: s/p RNY gastric bypass with PO intolerance please eval for dysmotility TECHNIQUE: Double contrast esophagram was performed. Fluoroscopic spot films were obtained. Fluoro time: 0.67 minutes COMPARISON: Outside CT of the pelvisApril 2022 FINDINGS: Examination limited because patient tolerated only 2 swallows of barium. The esophagus is normal in course and caliber, and is well distended on double contrast views. The mucosal pattern is normal. There is a small sliding hiatal hernia. Esophageal peristalsis is normal. . Contrast passes rapidly into the gastric fundal pouch and through the gastrojejunal anastomosis into small bowel segments without delay or dilatation. 1. Exam limited because only 2 swallows were completed. 2. No obstruction or intestinal dilatation and normal appearance of fundal pouch. Contrast passes rapidly through the gastrojejunal anastomosisinto small bowel segments. 3. Small sliding hiatal hernia. Thank you for letting us participate in the care of this patient. If you are a health care provider and have any questions regarding this report, please contact the number below. For patients who have questions please contact the health direct care staffer that requested your imaging first. Electronically signed by: Poppy Webster MD, [facility] ([phone]), at 03/19/2023 1:29 PM DH OR Endoscopy Result Date: 03/22/2023 Photographs - Images Physical Exam: BP 115/75 (BP Location (NBP): Left arm, Patient Position: Lying) Pulse 75 Temp 37 ??C (98.6 ??F) (Oral) Resp 16 Ht 162.6 cm (5' 4) Wt 78.5 kg (173 lb) SpO2 100% BMI 29.70 kg/m?? General: AOx3, pleasant, conversant, no acute distress HEENT: normocephalic, atraumatic, PERRLA, anicteric sclerae CVS: RRR on monitor Pulm: breathing comfortably on room air Abd: soft, nontender, non-distended, incisions clean/dry/intact Skin: warm, dry Ext: well perfused, no jaundice or cyanosis,no edema Neuro: CN 2-12 grossly intact, nonfocal, moving all four extremities spontaneously Condition at discharge: Stable Mental Status: awake and alert, oriented x 3 Medications: Your Medications New Medications Dose Details acetaminophen 325 mg tablet Commonly known as: Tylenol Take 2 tablets by mouth every 6 hours as needed for Pain. Replaces: acetaminophen 650 mg/20.3 mL Solution 650 mg Quantity: 30 tablet Refills: 1 Continued medications with new dosing Dose Details * ondansetron ODT 4 mg disintegrating tablet Commonly known as: Zofran-ODT Take 1 tablet by mouth every 8 hours as needed for Nausea. What changed: Another medication with the same name was added. Make sure you understand how and when to take each. 4 mg Quantity: 20 tablet Refills: 0 * ondansetron ODT 4 mg disintegrating tablet Commonly known as: Zofran-ODT Take 1 tablet by mouth every 8 hours. What changed: You were already taking a medication with the same name, and this prescription was added. Make sure you understand how and when to take each. 4 mg Quantity: 20 tablet Refills: 0 * This list has 2 medication(s) that are the same as other medications prescribed for you. Read thedirections carefully, and ask your doctor or other care provider to review them with you. Continued medications, unchanged Dose Details Certavite-Antioxidant 18-400 mg-mcg Tablet Take 1 tablet by mouth daily. Generic drug: Multivitamin Cmb No.21-Iron-FA 1 tablet Refills: 0 cholecalciferol (Vitamin D3) 50 mcg (2,000 unit) Capsule Take 1 capsule by mouth daily. 1 capsule Refills: 0 cyclobenzaprine 5 mg tablet Commonly known as: Flexeril Take 5 mg by mouth 3 times daily as needed. 5 mg Refills: 0 docusate sodium 100 mg capsule Commonly known as: Colace Take 1 capsule by mouth 2 times daily as needed for Constipation. 100 mg Refills: 0 Emgality Pen 120 mg/mL Pen Injector Inject 120 mg as directed every 30 days. Generic drug: galcanezumab-gnlm 120 mg Refills: 0 FLUoxetine 20 mg capsule Commonly known as: PROzac Take 20 mg by mouth Daily. 20 mg Refills: 0 latanoprost 0.005 % Drops Commonly known as: Xalatan Place 1 drop into both eyes nightly. 1 drop Refills: 3 Oxytrol 3.9 mg/24 hr Patch Semiweekly Change 1 patch on the skin twice a week. Generic drug: oxyBUTYnin 1 patch Refills: 0 pantoprazole EC [address] tablet Commonly known as: Protonix Take 20 mg by mouth daily. 20 mg Refills: 0 polyethylene glycoL 17 gram/dose Powder Commonly known as: Miralax Take 17 g by mouth daily. 17 g Refills: 0 ProAir HFA 90 mcg/actuation HFA Aerosol Inhaler Inhale 1 puff into the lungs every 6 hours as needed. Generic drug: albuteroL 1 puff Refills: 2 propranoloL 20 mg tablet Commonly known as: Inderal Take 20 mg by mouth 2 times daily. 20 mg Refills: 0 sucralfate 1 gram tablet Commonly known as: Carafate Take 1 tablet by mouth 4 times daily for 30 days. Crush tablet and take with small amount of liquid 1 g Quantity: 120 tablet Refills: 0 STOPPED Medications acetaminophen 650 mg/20.3 mL Solution Commonly known as: Tylenol Replaced by: acetaminophen 325 mg tablet lamoTRIgine 150 mg tablet Commonly known as: LaMICtal omeprazole [address] capsule Commonly known as: PriLOSEC oxybutynin 15 mg ER 24 hr tablet Commonly known as: Ditropan-XL prochlorperazine 10 mg tablet Commonly known as: Compazine Disposition: Home Allergies: No Known Allergies Outpatient Services/Studies: Referral to Physical Therapy Referral Priority: Routine Referral Type: Physical Therapy Referral Reason: Evaluate and Treat Requested Specialty: Physical Therapy Number of Visits Requested: 12 Referral to ENT Referral Priority: Routine Referral Type: Consultation Referral Reason: Consult, Test & Treat Number of Visits Requested: 1 Scheduled Appointments: Future Appointments and Orders Future Appointments and Orders Future Appointments Provider Department Dept Phone 04/02/2023 9:00 AM Loli Valerio, PhD Weight and Wellness at [facility] Arrive at: Home [phone] To view instructions for your video visit, click here, or visit this website: [email or web address] If you have not previously downloaded the [employer] patient portal software, MoPub, or the SmartEqu[employer] marco a, please do so by clicking one of these links below or searching in your device's marco a store. For all desktops/laptops; for Android devices; for Apple/iOS devices FAQs: Join Video Visit button not connecting? - This may be due to pop-up blockers. - Click this link to see: How to Disable Pop-Up Block for myD-H Video Visits Zoom asking for a meeting password? - Exit out of the Zoom program and try the link again 04/26/2023 2:[address]; Anni Varela APRN General Surgery at [facility] Arrive at: Nurse Unit Manager Area [phone] Future Orders Complete By Expires Referral to ENT [REF23 Custom] As directed Process Instructions: If no progress note charted, please enter Clinical details in comments. Scheduling Instructions: Questions: My question or request is: new onset and persistent dizziness, diplopia, bilateral nystagmus; also evaluated by ophthamology, neurology Referral to Physical Therapy [REF87 Custom] As directed Process Instructions: Note: Please indicate in the comments any additional Instructions, precautions or contradictions. Scheduling Instructions: Comments: Most recent inpatient PT note from hospitalization 03/18/2023 - 03/29/2023: Leandra Wilks was seen today for physical therapy treatment session for continuation of POC. Pt feels stronger and is pleased that she tolerated the stairs. She has somebody at home with her at all times. Called [facility] in [place], [place], where she lives. There is vestibular rehab atthat location. Pt would like to go to the hospital for further PT focusing on vestibular rehab.. Ptis doing well with exercises and compensation for dizziness with gait. Goals met for a safe dc to home. Pt stating she had a FWW at home Questions: Is this an internal or external order?: External Reason for PT: vestibular physical therapy for dizziness, diplopia Modalities could include: Treatment Focus: Instructions Given to Patient at Discharge: Patient Instructions Discharge Instructions ??? You have a referral to [facility] [facility] Ear, Nose and Throat clinic for further evaluation of dizziness. They will call you to scheduled an appointment. ??? A referral has been faxed to [facility] in [facility] for vestibular physical therapy. If you do not hear from them in one week, please call the hospital to follow up on that referral. o Their phone number is . Call Doctor for: ??? Persistent nausea or vomiting ??? Any fevers greater than 101.3 F For questions or concerns during business hours please call the Surgery Clinic at [phone] before 5 PM on weekdays. For questions after hours and on weekends please call the hospital automatic vulcanizing lead operator at [phone] and ask for the General Surgery resident pest control chemical technician. They may not be familiar with your case so be prepared to identify yourself and the procedure you had done. Activity Level: ??? You have no activity or driving restrictions. Do not drive if you are still feeling dizzy, lightheaded, or having double vision. Avoiding Constipation ??? Miralax 17g (or generic version: polyethylene glycol) mixed with a cup of water taken daily will help prevent constipation. ??? You should start taking this even if you are not taking narcotic pain medications. ??? Stool softeners such as Colace (docusate sodium) 100mg taken twice a day or Dulcolax (bisacodyl) 25mg daily can be used. ??? Incorporate fiber to a goal of 25 grams daily with fruits, vegetables, or fiber supplements like Benefiber (wheat dextrin) or Metamucil. ??? If you haven't had a bowel movement in 1-2 days, you can get over the counter Dulcolax suppositories, insert one per rectum, and it will help you have a BM. ??? Drink a minimum of 48 oz per day to avoid straining with defecation. ??? If it has been more than 2 days without a BM, you can try a Dulcolax suppository. Follow-up: Please call [phone] (clinic number for appointments) to confirm or change the date and time of your appointment. Future Appointments Date Time Provider Department Center 04/02/2023 9:00 AM Loli Valerio, PhD [facility] WEIGHT [facility] 04/26/2023 2:00 PM Anni Varela APRN [facility] SURG [facility] General Instructions None Future Appointments and Orders Future Appointments and Orders Future Appointments Provider Department Dept Phone 04/02/2023 9:00 AM Loli Valerio, PhD Weight and Wellness at [facility] Arrive at: Home [phone] To view instructions for your video visit, click here, or visit this website: [email or web address] If you have not previously downloaded the [employer] patient portal software, MoPub, or the Zoom marco a, please do so by clicking one of these links below or searching in your device's marco a store. For all desktops/laptops; for Android devices; for Apple/iOS devices FAQs: Join Video Visit button not connecting? - This may be due to pop-up blockers. - Click this link to see: How to Disable Pop-Up Block for myD-H Video Visits Zoom asking for a meeting password? - Exit out of the Zoom program and try the link again 04/26/2023 2:[address]; Anni Varela APRN General Surgery at [facility] Arrive at: Nurse Unit Manager Area [phone] Future Orders Complete By Expires Referral to ENT [REF23 Custom] As directed Process Instructions: If no progress note charted, please enter Clinical details in comments. Scheduling Instructions: Questions: My question or request is: new onset and persistent dizziness, diplopia, bilateral nystagmus; also evaluated by ophthamology, neurology Referral to Physical Therapy [REF87 Custom] As directed Process Instructions: Note: Please indicate in the comments any additional Instructions, precautions or contradictions. Scheduling Instructions: Comments: Most recent inpatient PT note from hospitalization 03/18/2023 - 03/29/2023: Leandra Wilks was seen today for physical therapy treatment session for continuation of POC. Pt feels stronger and is pleased that she tolerated the stairs. She has somebody at home with her at all times. Called [facility] in [place], [place], where she lives. There is vestibular rehab atthat location. Pt would like to go to the hospital for further PT focusing on vestibular rehab.. Ptis doing well with exercises and compensation for dizziness with gait. Goals met for a safe dc to home. Pt stating she had a FWW at home Questions: Is this an internal or external order?: External Reason for PT: vestibular physical therapy for dizziness, diplopia Modalities could include: Treatment Focus: Signed: Natalee Winn MD Minimally Invasive and Bariatric Surgery Fellow, PGY-6 03/29/23 12:24 PM MISpager [phone] Primary [place] Physician: Sree High, NETWORK SYSTEMS OPERATOR [address] / [facility] [id number] documented in this encounter Discharge Instructions * Patient Instructions* Joan Solorzano PA - 03/29/2023 8:17 AM EDT Discharge Instructions You have a referral to [facility], Nose and Throat clinic for further evaluation of dizziness. They will call you to scheduled an appointment. A referral has been faxed to [facility] in [place]. [place] for vestibular physical therapy.If you do not hear from them in one week, please call the hospital to follow up on that referral. Their phone number is . Call Doctor for: Persistent nausea or vomiting Any fevers greater than 101.3 F For questions or concerns during business hours please call the Surgery Clinic at [phone] before 5 PM on weekdays. For questions after hours and on weekends please call the hospital automatic vulcanizing lead operator at [phone] and ask for the General Surgery resident pest control chemical technician. They may not be familiar with your case so be prepared to identify yourself and the procedure you had done. Activity Level: You have no activity or driving restrictions. Do not drive if you are still feeling dizzy, lightheaded, or having double vision. Avoiding Constipation Miralax 17g (or generic version: polyethylene glycol) mixed with a cup of water taken daily will help prevent constipation. You should start taking this even if you are not taking narcotic pain medications. Stool softeners such as Colace (docusate sodium) 100mg taken twice a day or Dulcolax (bisacodyl) 25mg daily can be used. Incorporate fiber to a goal of 25 grams daily with fruits, vegetables, or fiber supplements like Benefiber (wheat dextrin) or Metamucil. If you haven't had a bowel movement in 1-2 days, you can get over the counter Dulcolax suppositories, insert one per rectum, and it will help you have a BM. Drink a minimum of 48 oz per day to avoid straining with defecation. If it has been more than 2 days without a BM, you can try a Dulcolax suppository. Follow-up: Please call [phone] (clinic number for appointments) to confirm or change the date and time of your appointment. Future Appointments Date Time Provider Department Center 04/02/2023 9:00 AM Loli Valerio, PhD [facility] WEIGHT [facility] 04/26/2023 2:00 PM Anni Varela APRN [facility] SURG [facility] documented in this encounter Medications at Time of Discharge Medication Sig Dispensed Refills Start Date End Date ondansetron ODT (Zofran-ODT) 4 mg disintegrating tablet [...] every 6 hours as needed. 2 04/11/2016 polyethylene glycoL (Miralax) 17 gram/dose Powder Take 17 g by mouth daily. 03/29/2023 08/30/2023 docusate sodium (Colace) 100 mg capsule Take 1 capsule by mouth 2 times daily as needed for Constipation. 03/29/2023 08/30/2023 Oxytrol 3.9 mg/24 hr Patch Semiweekly Change 1 patch on the skin twice a week. 01/28/2023 08/30/2023 pantoprazole EC (Protonix) [address] tablet Take 20 mg by mouth daily. 03/12/2023 10/22/2023 sucralfate (Carafate) 1 gram tablet Take 1 tablet by mouth 4 times daily for 30 days. Crush tablet and take with small amount of liquid 120 tablet 03/05/2023 04/04/2023 ondansetron ODT (Zofran-ODT) 4 mg Tablet, Rapid DissolveIndications:Naus ea without vomiting Take 1 tablet by mouth every 8 hours as needed for Nausea. 20 tablet 01/22/2023 08/30/2023 documented as of this encounter Progress Notes * aJnneth Gomez LPN - 03/29/2023 12:06 PM EDT Pt discharged to home. IV removed, site benign. 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 Pt management discussed, pain tolerable. Pt has all belongings and supplies needed. Pt received After Visit Summary and prescriptions, reviewed and patient verbalizes understanding of AVS. All q uestions answered. Pt encouraged to call with questions or concerns. Pt dc'ed to home with family. Pt expressed thanks for care received by this commercial loan underwriter and [facility] staff during hospitalization. * Cl Goodman RN - 03/29/2023 7:41 AM EDT Illness Severity [x] Stable [] Watcher [] Unstable Patient Summary Reason for admission: FTT abd pain/dysphagia Relevant PMH: RNY BG Significant 24 hour events: admit from ED 5 PM: NAEON. Pain and nausea well-controlled. Double vision persists w/ mild dizziness, NOS. Pt slept all night. Action List Eye patch to help with double vision * Maria L Crawford, PT - 03/28/2023 2:06 PM EDT Physical Therapy Note Treatment Number PT: 3 Patient profile: Leandra Wilks is a 43 y.o. right handed female admitted on 03/18/[address] Iram Borrero MD with h/o morbid obesity, GERD, CHUN, IBS, depression, and recent lap RYGB (01/10/23) c/b continued dysphagia, N/V, and abdominal pain, who now requires neurology consult for acute dizziness and??binocular??diplopia starting 03/20.?? Interval History: variable nausea, aggravated by eating. Social History: Home set-up: lives in a single level apartment on the second floor with boyfriend and two teen children Bathroom Set-up: tub shower combo Stairs: FOS between floors with rail Baseline Mobility: independent Equipment at home: none Fall history: denies Precautions/Special Considerations: fall risk Lines: PIV Activity Orders: AAT Diet: Dysphagia soft Mobility and Positioning Recommendations: ?? Pt able to ambulate with FWW and supervision, assist for IV pole if attached, chair follow longer distances. ?? Please encourage up to chair for meal times as able. Subjective: I think I can go home. I feel stronger. I am not alone. Objective: Patient seen for physical therapy and demonstrated the following: Pain: c/o abdominal discomfort Vital Signs: Stable on RA ?? Pt supine in bed, agreeable to therapy ?? Supine to sit, HOB 20 degrees, modified independent, extra time, moves slow ?? Steady sitting edge of bed ?? Sit<->stand to FWW, modified independent, UE push off, steady ?? Ambulated ~50 ft with FWW, supervision, chair follow, assist for IV pole, slow gait speed, shortened steps, cues for fixating on an object and minimizing head turns/nods, no LOB, mildly tremulous UE's on the FWW. ?? Sat pre and post stairs. ?? Sit<->stand from std arm chair to FWW, modified independent, UE push off, steady, cues forslow turning once upright ?? Stairs: 15 stairs, one railing support, supervision, variable reciprocal/step to pattern. ?? Ambulated 50 ft back to pt's room after a seated rest, same gait as above. ?? Stand pivot transfer to recliner chair, FWW, supervision, assist for IV pole, steady, no LOB ?? VOR 1 gaze stabilization exercises, 2 sets, 10 reps in vertical and horizontal directions, eyes fixed on large letter A, on her cell phone held at arm's length away. ?? Dizziness rated 8/10 prior to PT and 6/10 during PT. ?? Pt left in bedside recliner chair, with all needs met, with call burden in reach and with chair alarm active following visit. Education: patient has been educated on Bed mobility, Transfers, Safety , Equipment use, Gait , Role of therapy and Discharge planning and verbalize understanding. Assessment: Leandra Wilks was seen today for physical therapy treatment session for continuationof POC. Pt feels stronger and is pleased that she tolerated the stairs. She has somebody at home with her at all times. Called [facility] in [place], [place], where she lives. There is vestibular rehab at that location. Pt would like to go to the hospital for further PT focusing on vestibular rehab.. Pt is doing well with exercises and compensation for dizziness with gait. Goals met for a safe dc to home. Pt stating she had a FWW at home Discharge Recommendations: Based on the current findings, Anticipated Discharge Disposition (PT): home with supervision, home with outpatient therapy services when medically ready for hospital discharge. Consult Recommendations: No other consults recommended at this time. Equipment needs: Anticipated Equipment Needs at Discharge (PT): walker, front wheeled Physical Therapy Goals: To be achieved by 04/01/23: ?? 1. Pt. to demonstrate knowledge of safety limitations and precautions and will appropriately request assistance for functional activities and to mobilize. MET 2. Pt. to perform bed to chair transfers with modified independence using a front wheeled walker. MET 3. Pt. to ambulate 150 feet with modified independence using a a front wheeled walker. MET 03/27 with OT 4. Pt. to ambulate up/down 12 step/stairs using one rail with supervision. MET 5. Family or caregiver to demonstrate understanding of therapeutic interventions to support the care of the patient. NE Plan: Therapy Frequency (PT): (No further inpatient PT, continue outpt vestibular PT.) as outlined in initial evaluation. Patient agrees with plan as stated. Time IN / OUT: 9:50-10:20 Total Minutes, Physical Therapy: 30 Billing Code: TEF ANIYA MARIA L CRAWFORD PT Pager: [phone] Physical Therapy Inpatient Rehabilitation Department * Dick Bower MD - 03/28/2023 12:05 PM EDT Minimally Invasive Surgery Inpatient Progress Note ID: Leandra Wilks is a 43 y.o. female with medical history significant for morbid obesity, GERD,CHUN, IBS, depression and laparoscopic renato en y gastric bypass on 01/10/23 who has struggled with dysphagia and abdominal pain since surgery who presents 03/18/23 with continued dysphagia, nausea/vomiting and abdominal pain. Subjective / 24h: ?? Tolerating meals well, had fish and mashed potatoes ?? Abdominal pain improved ?? OT/PT recommending acute rehab due to continued dizziness with ambulation and stairs into home apartment, will continue to reevaluate daily ?? VSS, no new labs Objective: Last value Range last 24hrs Temperature Temp: 36.8 ??C (98.2 ??F) Temp: [36.6 ??C (97.9 ??F)-37 ??C (98.6 ??F)] Heart Rate Heart Rate: 75 Heart Rate: -- Blood Pressure BP: 122/70 BP: (106-127)/(67-80) Respiratory Rate Resp: 18 Resp: [16-20] SpO2 SpO2: 98 % SpO2: [97 %-100 %] 03/27 0701 - 03/28 0700 In: 360 [P.O.:360] Out: 1301 [Urine:1301] PE: General: Alert, no acute distress Head: Atraumatic, non cyanotic Cardiac: Regular rate & rhythm Pulmonary: Normal respiratory effort on RA Abdominal: Soft, non distended, not reactive to abdominal exam, dermabond intact over incisions which are well appearing, no erythema, no drainage, no induration Neuro: Grossly intact, follows commands Extremities: Warm and well-perfused Labs: Recent Labs 03/27/23 0350 03/26/23 0400 WBC 7.1 6.7 HGB 10.9* 11.4* HCT 31.5* 34.0* PLATELET 297 296 Recent Labs 03/27/23 0350 03/26/23 0400 NA 141 140 K 3.5 3.8 CL 105 104 CO2 25 25 BUN 10 4* CREATININE 0.74 0.70 GLUCOSE 86 82 CALCIUM 8.7 8.7 MAGNESIUM 0.85 0.94 PHOS 4.3 4.4 Microbiology: N/A New Imaging/Studies: None A/P: Leandra Wilks is a 43 y.o. female with medical history significant for morbid obesity, GERD, CHUN, IBS, depression and laparoscopic Renato-en-Y gastric bypass on 01/10/23 who has struggled with dysphagia and abdominal pain since surgery who presented 03/18/23 with continued dysphagia, nausea/vomiting and abdominal pain. Patient has undergone extensive work up thus far which has been unrevealing as etiology of symptomology. 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 Neurology and psychiatry have been involved in her workup and care, and the working theory at this point is that her neurologic symptoms may be a side effect from restarting Lamictal at home dose after several weeks of cessation. She was seen by clinical helicopter officer with recommendation to stop Lamicatal altogether. At this point we will plan to discontinue that medication now and for the foreseeable future, and she will need close follow up with her PCP for medication management. She is not currently establishedwith a psychiatric provider and may have to wait several months to get into a psychiatric office. Today was able to climb stairs, awaiting final PT recommendations but likely cleared to discharge home tomorrow. Will plan for vestibular rehab referral on discharge along with home health. Continues to improve with po intake with decreased nausea and abdominal pain. NEURO: Pain control with PRN Tylenol, prn home Flexeril. No narcotics. Appreciate neurology and clinical pharmacology reccs PSYCH: Appreciate psych/BIT reccs and care, continue home fluoxetine and propanolol, Lamictal dc'ed, PO thiamine daily PULM: IS, OOB, albuterol PRN CV: No acute concerns GI: tolerating soft diet, scheduled sucralfate, daily Colace, scheduled Zofran, PRN Compazine, Reglan, meclizine. Multimodal nausea control. FEN: Voiding spontaneously, monitor I/Os, LR @ 50 cc/hr PPx: Lovenox, PPI, SCDs DISPO: Floor status, full code, f/u PT recs regarding dc Signed: Dick Bower MD Minimally Invasive and Bariatric Surgery 12:06 PM 03/28/23 Service pager: [phone] Associated attestation - Iram Borrero MD - 03/28/2023 5:56 PM EDT I have seen and examined the patient, providing macias components as outlined below. I have reviewed the resident???s above note; my evaluation of the patient is below: Overall Leandra is improved. She is tolerating PO intake much better than reported over the last couple of months. We have found no explanation for her initial symptoms of nausea and PO intolerance on extensive testing and evaluation. Fortunately, these symptoms have improved throughout her hospital stay. Her lamictal levels have returned as normal. She continues to have dizziness and diplopia but today did well with PT and expressed a desire to go home. I asked Ophthalmology to see her regarding her persistent double vision and lack of etiology. I appreciate their consultation and evaluation. Will refer her to ENT as an outpatient. Plan for discharge home tomorrow. Iram Borrero MD * Elva Ronquillo LPN - 03/28/2023 10:22 AM EDT OUTCOME EVALUATION NOTE: OUTCOME SUMMARY: Patient A&Ox4, VSS on RA. C/O nausea this morning with a 1x dose of PRN Compazine per order with good effect. Fluids encouraged. 500 IV bolus received this am. Work with therapy and ambulated with a walker in room and hallway. LBM 5/10. Denies pain or discomfort. Went to Ophthalmology clinic today, Refer to Note for recommendations. Will continue to monitor and help patient reach d/c goals. PLAN MOVING FORWARD: Pain control Nausea Management Mobilize D/C planning INDIVIDUALIZED FALL PREVENTION: Rings appropriately, demonstrates proper use of call burden and verbalizes understanding of fall preventions implemented. Patient-specific fall risk factors per assessment: [current deficits]: Pain, Nausea, Assistance [level of assistance required for transfers and ambulation]: SBA with a walker Supervision [direct monitoring required during toileting and ADLs]: Eyes On Surveillance [continuous indirect monitoring]: Sai, * Jessica Nguyễn RN - 03/28/2023 7:48 AM EDT OUTCOME EVALUATION NOTE: OUTCOME SUMMARY: Patient A&Ox4. VSS. Denies pain, discomfort, nausea and vomiting. Alternating eye patches PLAN MOVING FORWARD: Pain management Psych consult Mobilize D/C planning INDIVIDUALIZED FALL PREVENTION INTERVENTIONS: Patient-specific fall risk factors per assessment: [current deficits]: Pain, hospital environment Assistance [level of assistance required for transfers and ambulation]: SBA Supervision [direct monitoring required during toileting and ADLs]: Eyes on when OOB Surveillance [continuous indirect monitoring]: Alaina * Trinidad Chaves RN - 03/27/2023 6:55 PM EDT OUTCOME EVALUATION NOTE: OUTCOME SUMMARY: Patient AOx4, VSS on RA. Denies nausea/vomiting, CP, SOB. Pain controlled w/ scheduled and PRN medications, see MAR. Incision to abdomen JUNIOR BUYER. Patient voiding to BSC w/ SBA. LBM FIRE PREVENTION OFFICER. Patient sleeping in between care. PLAN MOVING FORWARD: Pain management Psych consult Mobilize D/C planning INDIVIDUALIZED FALL PREVENTION INTERVENTIONS: Patient-specific fall risk factors per assessment: [current deficits]: Pain, hospital environment Assistance [level of assistance required for transfers and ambulation]: SBA Supervision [direct monitoring required during toileting and ADLs]: Eyes on Surveillance [continuous indirect monitoring]: Maismo * Pito Baltazar, OT - 03/27/2023 1:55 PM EDT Occupational Therapy Treatment Note Treatment Number OT: 5 ?? Patient profile: Per MD: Leandra Wilks??is a 43 y.o.??female??with medical history significant for morbid obesity, GERD, CHUN, IBS, depression and laparoscopic renato en y gastric bypass on 01/10/23 who has struggled with dysphagia and abdominal pain since surgery who presents 03/18/23 with continued d ysphagia, nausea/vomiting and abdominal pain. ?? Past Medical History No past medical history on file. Past Surgical History Past Surgical History: Procedure Laterality Date ??? ABDOMINAL EXPLORATION SURGERY ?? 10/31/2004 ?? b/l salpingectomy and removel enodmetrial implantsin cul de sac ??? APPENDECTOMY ? CARPAL TUNNEL RELEASE Bilateral ? CHOLECYSTECTOMY ? HYSTERECTOMY, VAGINAL ?? 05/12/2015 ??? PRO LAP GASTRIC BYPASS/RENATO-EN-Y N/A 01/10/2023 ?? @LAPAROSCOPIC GASTROPLASTY W/ RENATO-EN-Y CONSTRUCTION (WRVU 29.4) performed by Iram Borrero MD at [facility] MAIN OR ??? PRO UPPER GI ENDOSCOPY, DIAGNOSTIC N/A 01/10/2023 ?? EGD, UPPER GI ENDOSCOPY performed by Iram Borrero MD at [facility] OR ??? PRO UPPER GI ENDOSCOPY, DIAGNOSTIC N/A 03/05/2023 ?? EGD, UPPER GI ENDOSCOPY (WRVU 2.09) performed by Iram Borrero MD at [facility] MAIN OR ?? Active Non-Hospital Problems ?? Diagnosis ? ? Severe obesity (BMI >= 40) ??? CHUN (obstructive sleep apnea) ??? Pain in right foot ??? Glaucoma ??? Fibromyalgia ??? Osteoarthritis, multiple sites ??? Adult BMI 40.0-44.9 kg/sq m ??? Depression with anxiety ??? Calculi, ureter ??? Back pain ??? Mood disorder ??? Chronic pelvic pain in female ??? Unspecified dyspareunia ??? Endometriosis ??? Irritable bowel syndrome with diarrhea ? Social History: Patient lives with boyfriend, 2 dogs, 2 cats and a fish Home Setup: FOS to second floor apartment, 4STE apartment building w B handrails, tub shower DME: crutches Baseline ADL/Mobility: Prior to gastric bypass in December, pt was Independent with all ADLs, IADLs, driving, since gastric bypass and symptom onset, pt requiring assistance from boyfriend for toilettransfers, ambulation and IADLs. ?? Precautions/Special Considerations: Full Code, Fall risk, orthostatic hypotension, significant dizziness Interval History: Per MD: She continues to struggle with eating, but it does not appear to be related to a lack of appetite, but rather pronounced nausea. She reports improvement with the use of anti-emetics, which has been demonstrated in improved eating habits. There is likely a psychological component that is influencing her eating patterns, as she notes that the fear of choking on her food has lessened, but this will be more appropriately addressed in the outpatient setting. S: I feel unsteady O: Patient seen for skilled OT treatment, and demonstrated the following: ?? Self-care: ?? Toileting ?? Transfer: SBA to bedside commode without AD ?? Hygiene: SBA (pt able to clean concepcion area while sitting on commode) ?? Functional Mobility: ?? Supine to sit: SBA ?? Sit to stand: SBA ?? Ambulation: SBA w FWW and verbal cues for FWW management (pt able to walk ~150feet around unit, pt required one rest break ?? Stand to sit: SBA w FWW ?? Sit to supine: SBA ?? Cognition: ?? Behavior / Mood: alert, cooperative and lethargic ?? Alert and oriented to: person, place, time and situation ?? Follows commands: 2 step ?? Attention: WFL ?? Safety awareness: decreased insight into deficits ?? Endurance: poor ?? Vitals: 142/88, HR 78bpm, Spo2 99% on RA Pain: No c/o pain throughout session Education: Pt/family/caregiver education ongoing regarding: Assistive device/technique, ADL, Breathing exercises, Positioning, Safety, Activity pacing/Energy conservation, Balance, Recommendations and Discharge planning. Staff Communication: Patient status, treatment, and mobility recommendations discussed with nursing/other staff. ASSESSMENT: Pt seen for continuation of POC. Pt making gradual progress in functional mobility goals this session. Pt reported slight improvement in dizziness when wearing eye patch on R eye. Pt ableto ambulate ~150ft w FWW close supervision around unit requiring 1X 5min rest break. Pt appeared stronger with less reports of nausea. Pt will benefit from ongoing therapeutic interventions to achieve pt's and therapy goals Equipment needs at discharge: to be determined Anticipated Discharge Disposition: [facility] rehabilitation facility Daily schedule / Staff Recommendations: ??? Utilize upright chair position using bed features or transfer to recliner chair as appropriate with CGA ??? Ambulate as tolerated CGA ??? Encourage participation in ADL's by providing set up A on tray table and physical assist only as needed Occupational Therapy Goals: To be achieved by 04/03/23. Pt will be Independent with LB dressing Pt will be Independent with LB bathing Pt will be Independent with toileting tasks and toilet transfers PROGRESSING Pt will complete 3 grooming tasks while standing at sink PROGRESSING Pt will Independently ambulate functional household distances PROGRESSING Pt will recall the 3 Ps of energy conservation (Plan, Pace, Prioritize) 100% of the time Therapy Frequency (OT): 2-4 times/wk Total Minutes, Occupational Therapy: 33 (SCHM X1 TAF X1 ([id number])) Pager: [phone] Pito Baltazar, OT 03/27/2023 Occupational Therapy Rehabilitation Department * Herman Viramontes, FIRE PREVENTION OFFICER - 03/27/2023 10:20 AM EDT Physical Therapy Note Treatment Number PT: 2 Patient profile: Leandra Wilks is a 43 y.o. right handed female admitted on 03/18/[address] Iram Borrero MD with h/o morbid obesity, GERD, CHUN, IBS, depression, and recent lap RYGB (01/10/23) c/b continued dysphagia, N/V, and abdominal pain, who now requires neurology consult for acute dizziness and??binocular??diplopia starting 03/20.?? Interval History: Uneventful Social History: Home set-up: lives in a single level apartment on the second floor with boyfriend and two teen children Bathroom Set-up: tub shower combo Stairs: FOS between floors with rail Baseline Mobility: independent Equipment at home: none Fall history: denies Precautions/Special Considerations: fall risk Lines: PIV Activity Orders: AAT Diet: Dysphagia soft Mobility and Positioning Recommendations: ?? Pt able to ambulate with FWW and supervision, assist for IV pole if attached, chair follow longer distances. ?? Please encourage up to chair for meal times as able. Subjective: I feel like everything is moving around me Objective: Patient seen for physical therapy and demonstrated the following: Pain: no reports of pain Vital Signs: Stable on RA ?? Pt supine in bed, agreeable to therapy ?? Supine to sit, HOB elevated, supervision, extra time, moves slow ?? Steady sitting edge of bed ?? Sit<->stand to FWW, supervision, UE push off, steady ?? Standing marching with and without FWW, unsteady and tentative with no FWW support ?? Ambulated 50 ft with FWW, supervision, chair follow, assist for IV pole, slow gait speed, shortened steps, cues for fixating on an object and minimizing head turns/nods, no LOB, mildly tremulous UE's on the FWW ?? Seated rest break ?? Sit<->stand from black chair to FWW, supervision, UE push off, steady, cues for slow turning once upright ?? Ambulated 50 ft back to pt's room, same gait as above, pt reports increased dizziness with mobility, reliant on FWW for balance ?? Seated rest break edge of bed ?? Stand pivot transfer to recliner chair, FWW, supervision, assist for IV pole, steady, no LOB ?? Pt left in bedside recliner chair, with all needs met, with call burden in reach and with chair alarm active following visit. Education: patient has been educated on Bed mobility, Transfers, Safety , Equipment use, Gait , Role of therapy and Discharge planning and verbalize understanding. Assessment: Leandra Wilks was seen today for physical therapy treatment session for continuationof POC. Continues to have dizziness with mobility, limited distance and gait speed, now reliant on FWW for balance with mobility. Decreased LE strength as well. As pt's dizziness symptoms improve anticipate quick return of functional mobility to prior baseline. Currently recommending a short rehab stay to progress mobility, strength and balance prior to home. Pt will benefit from ongoing therapeutic interventions to achieve therapy goals. Discharge Recommendations: Based on the current findings, Anticipated Discharge Disposition (PT): swing bed rehabilitation facility when medically ready for hospital discharge. Consult Recommendations: No other consults recommended at this time. Equipment needs: Anticipated Equipment Needs at Discharge (PT): walker, front wheeled Physical Therapy Goals: To be achieved by 04/01/23: Ongoing ?? 1. Pt. to demonstrate knowledge of safety limitations and precautions and will appropriately request assistance for functional activities and to mobilize. 2. Pt. to perform bed to chair transfers with modified independence using a front wheeled walker. 3. Pt. to ambulate 150 feet with modified independence using a a front wheeled walker. 4. Pt. to ambulate up/down 12 step/stairs using one rail with supervision. 5. Family or caregiver to demonstrate understanding of therapeutic interventions to support the care of the patient. Plan: Therapy Frequency (PT): 3-5 times/wk as outlined in initial evaluation. Patient agrees with plan as stated. Time IN / OUT: 9:50-10:20 Total Minutes, Physical Therapy: 30 Billing Code: TE-F x 2 HERMAN VIRAMONTES PTA Pager: [phone] Physical Therapy Inpatient Rehabilitation Department * Joan Solorzano PA - 03/27/2023 8:57 AM EDT Minimally Invasive Surgery Inpatient Progress Note ID: Leandra Wilks is a 43 y.o. female with medical history significant for morbid obesity, GERD,CHUN, IBS, depression and laparoscopic renato en y gastric bypass on 01/10/23 who has struggled with dysphagia and abdominal pain since surgery who presents 5/1/23 with continued dysphagia, nausea/vomiting and abdominal pain. Subjective / 24h: ?? Tolerating meals well, had chicken and gravy yesterday ?? Abdominal pain improved ?? OT/PT recommending acute rehab due to continued dizziness with ambulation and stairs into home apartment ?? Seen by clinical helicopter officer yesterday w/ recommendation to stop Lamictal altogether Objective: Last value Range last 24hrs Temperature Temp: 36.8 ??C (98.2 ??F) Temp: [36.8 ??C (98.2 ??F)-37.3 ??C (99.1 ??F)] Heart Rate Heart Rate: 68 Heart Rate: -- Blood Pressure BP: 118/72 BP: (118-139)/(72-84) Respiratory Rate Resp: 16 Resp: [16-18] SpO2 SpO2: 97 % SpO2: [97 %-100 %] 03/26 0701 - 03/27 0700 In: 1950 [P.O.:350; I.V.:1600] Out: 400 [Urine:400] PE: General: Alert, no acute distress Head: Atraumatic, non cyanotic Cardiac: Regular rate & rhythm Pulmonary: Normal respiratory effort on RA Abdominal: Soft, non distended, not reactive to abdominal exam, dermabond intact over incisions which are well appearing, no erythema, no drainage, no induration Neuro: Grossly intact, follows commands Extremities: Warm and well-perfused Labs: Recent Labs 03/27/23 0350 03/26/23 0400 03/25/23 0331 WBC 7.1 6.7 8.4 HGB 10.9* 11.4* 10.8* HCT 31.5* 34.0* 32.8* PLATELET 297 296 291 Recent Labs 03/27/23 0350 03/26/23 0400 03/25/23 0331 NA 141 140 138 K 3.5 3.8 3.4* CL 105 104 100 CO2 25 25 22 BUN 10 4* 3* CREATININE 0.74 0.70 0.61* GLUCOSE 86 82 94 CALCIUM 8.7 8.7 8.8 MAGNESIUM 0.85 0.94 0.67* PHOS 4.3 4.4 3.4 Microbiology: N/A New Imaging/Studies: None A/P: Leandra Wilks is a 43 y.o. female with medical history significant for morbid obesity, GERD, CHUN, IBS, depression and laparoscopic Renato-en-Y gastric bypass on 01/10/23 who has struggled with dysphagia and abdominal pain since surgery who presented 03/18/23 with continued dysphagia, nausea/vomiting and abdominal pain. Patient has undergone extensive work up thus far which has been unrevealing as etiology of symptomology. 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 Neurology and psychiatry have been involved in her workup and care, and the working theory at this point is that her neurologic symptoms may be a side effect from restarting Lamictal at home dose after several weeks of cessation. She was seen by clinical helicopter officer yesterday with recommendation to stop Lamicatal altogether. I spoke with provider Kirsty Fournier in her PCP office this morning and per her chart review, it appears patient was taking Lamictal off label for refractory depression. She has no endorsedworsened depression or any SI while inpatient since stopping Lamictal. At this point we will plan to discontinue that medication now and for the foreseeable future, and she will need close follow up with her PCP for medication management. She is not currently established with a psychiatric providerand may have to wait several months to get into a psychiatric office. We will continue to coordinate with care management and OT/PT per reccs and proper placement. At this point she does not need a hospital inpatient level of care, but her primary barrier to discharge her limited mobility due to dizziness and vision changes, and needing to climb a set of stairs to get to her apartment. She lives with her significant other, and her son is also in the household regularly. She does not qualify for acute rehab at this point, possible SNF vs swing vs home care. Will speak with therapy and care management today about an appropriate discharge plan. NEURO: Pain control with PRN Tylenol, prn home Flexeril. No narcotics. Appreciate neurology and clinical pharmacology reccs PSYCH: Appreciate psych/BIT reccs and care, continue home fluoxetine and propanolol, Lamictal dc'ed, PO thiamine daily PULM: IS, OOB, albuterol PRN CV: No acute concerns GI: tolerating soft diet, scheduled sucralfate, daily Colace, scheduled Zofran, PRN Compazine, Reglan, meclizine. Multimodal nausea control. FEN: Voiding spontaneously, monitor I/Os, LR @ 50 cc/hr PPx: Lovenox, PPI, SCDs DISPO: Floor status, full code, awaiting bed placement vs home health Signed: EDER Hernandez Minimally Invasive and Bariatric Surgery 9:10 AM 03/27/23 Service pager: [phone] Associated attestation - Iram Borrero MD - 03/27/2023 2:43 PM EDT I have seen and examined the patient, providing macias components as outlined below. I have reviewed the PA's above note; my evaluation of the patient is below: From a bariatric standpoint, Leandra is doing quite well. She had half of a scrambled egg for breakfast this morning and had chicken and gravy yesterday. This is more than she has reported eating in the last couple of months. She continues to report dizziness and double vision of unclear etiology. PT is recommending discharge to rehab. There is no placement available currently. She is otherwise stable from a medical standpoint for discharge. If her dizziness and double vision persist, may consider Ophthalmology or ENT consult. Lamictal levels pending. Iram Borrero MD * Jayshree Cerna RN - 03/27/2023 6:18 AM EDT OUTCOME EVALUATION NOTE: OUTCOME SUMMARY: Patient AOx4, VSS on RA. Denies nausea/vomiting, CP, SOB. Pain controlled w/ scheduled and PRN medications, see MAR. Incision to abdomen ELLEN. Patient voiding to BSC w/ SBA. LBM captain assistant. Patient sleeping in between care. PLAN MOVING FORWARD: Pain management Psych consult Mobilize D/C planning INDIVIDUALIZED FALL PREVENTION INTERVENTIONS: Patient-specific fall risk factors per assessment: [current deficits]: Pain, hospital environment Assistance [level of assistance required for transfers and ambulation]: SBA Supervision [direct monitoring required during toileting and ADLs]: Eyes on Surveillance [continuous indirect monitoring]: Maismo * Lisbeth Roca RN - 03/26/2023 5:51 PM EDT OUTCOME EVALUATION NOTE: OUTCOME SUMMARY: Patient progressing towards d/c goals appropriately at this time. Patient's pain adequately controlled with scheduled and PRN medications (See MAR). Administered antivert today after PT/OT due to extreme dizziness. Up in the chair for a good amount today. Occasional nausea, managed with scheduled medications. Currently up in the chair eating dinner. All needs met at this time, will continue to guero sely monitor. PLAN MOVING FORWARD: Pain control Mobilize D/C planning INDIVIDUALIZED FALL PREVENTION: Patient is currently a high risk to Fall. Patient educated on bed/chair alarm, demonstrates proper use of call burden and verbalizes understanding of fall preventions implemented. Patient-specific fall risk factors per assessment: [current deficits]: Pain, Medications, Hospital Environment, Impaired Mobility, Recent Surgery Assistance [level of assistance required for transfers and ambulation]: 1Assist Supervision [direct monitoring required during toileting and ADLs]: Hands on with ADL's Surveillance [continuous indirect monitoring]: Masimo, Purposeful Rounding, Nurse Knowledge Exchange at Bedside, Bed Alarm Set * Fior Ryan RD - 03/26/2023 3:52 PM EDT Nutrition Initial Note Leandra Wilks is a 43 y.o. female admitted with continued dysphagia, N/V, and abdominal pain s/pGB surgery. Relevant medical history includes renato en y gastric bypass on 01/10/23. Reason for Assessment: Education, Other (see comments) (weight loss) Nutrition Recommendations: Diet office to send dysphagia soft menu. Encourage adequate protein intake of 60-80 grams/day. Encourage adequate fluid intake of 48-64 oz/day, 30 minutes from meal time. Monitor weights. Continue out-patient follow up with Bariatric Surgery dietitians. Current Nutrition Regimen: Active Orders Diet Dysphagia Soft Diet Frequency: Effective Now Number of Occurrences: Until Specified Nourishments Adult diet Oral Supplements Ensure Clear (Clear Liquid) Frequency: 4 Times Daily Number of Occurrences: Until Specified Assessment: Lab Results Component Value Date NA 140 03/26/2023 K 3.8 03/26/2023 CL 104 03/26/2023 CO2 25 03/26/2023 BUN 4 (L) 03/26/2023 CREATININE 0.70 03/26/2023 ESTGFR 109 03/26/2023 MAGNESIUM 0.94 03/26/2023 CALCIUM 8.7 03/26/2023 PHOS 4.4 03/26/2023 AST 41 (H) 03/26/2023 ALT 42 (H) 03/26/2023 ALKPHOS 119 (H) 03/26/2023 BILITOT 0.6 03/26/2023 BILIDIR 0.4 (H) 03/20/2023 CRP 4.5 03/26/2023 [id number] 139 12/18/2022 [id number] 612 03/21/2023 25OHVITD 34 03/26/2023 SFOLATE 4.0 (L) 03/21/2023 IRON 80 03/26/2023 No results found for: POCGLU Patient Lines/Drains/Airways Status Active Nutritional LDAs Name Placement date Placement time Site Days Peripheral IV Line - Single Lumen 03/25/23 175 cephalic vein (lateral side of arm), right 22 gauge;1.75 in length 03/25/231754 -- 1 Oxygen Therapy / Airway Device: None (Room air) Shift Pressure Injury Prevention Occiput: No Injury Thoracic Spine: No Injury Sacral: No Injury Ischial - left: No Injury Ischial - right: No Injury Heel - left: No Injury Heel - right: No Injury Elbow - left: No Injury Elbow - right: No Injury Device Sites: O2 sat monitor, IV sites Last Bowel Movement: (03/25/2023) Intake/Output Summary (Last 24 hours) at 03/26/2023 1552 Last data filed at 03/26/2023 0800 Gross per 24 hour Intake 390 ml Output -- Net 390 ml Relevant medications: colace, zofran, protonix, thiamine Anthropometrics: Admit Weight: 78.93 kg Estimated body mass index is 29.7 kg/m?? as calculated from the following: Height as of this encounter: 162.6 cm (5' 4). Weight as of this encounter: 78.5 kg (173 lb). [place] Body Weight (IBW) (kg): 54.55 Usual Body Weight: 108 kg (238 lb) (November 2022) Weight Loss: (intentional from GB surgery, but additional unintentional weight loss d/t unability to tolerate PO) Duration of Weight Loss: 6 Months Weight Lost: 65 lbs % of Weight Lost: 27 Wt Readings from Last 10 Encounters: 03/19/23 78.5 kg (173 lb) 03/05/23 82.6 kg (182 lb) 01/30/23 93 kg (205 lb 0.4 oz) 12/18/22 108 kg (238 lb) 10/09/22 103.8 kg (228 lb 12.8 oz) 06/06/22 103.4 kg (228 lb) 02/14/22 95.7 kg (211 lb) 01/02/22 101.6 kg (224 lb) 12/12/21 102.5 kg (226 lb) 10/25/21 101.2 kg (223 lb) No data found. Weight Source: Reported Estimated / Assessed Needs: Kcal / K - 1362.5 Kcal (20 Kcal/Kg - 25 Kcal/Kg) Estimated Protein Needs: 65.4 - 81.75 g (1.2 g/Kg - 1.5 g/Kg) Nutrition intake and intake history / interview: Pt screened for diet education on dysphagia soft diet by diet techs and noted to have severe weight loss and inability to tolerate PO prior to admission. Pt now tolerating some solid PO in small amounts, with some nausea and cramping afterwards. She reports having some pot roast last night, eggs this morning, peaches, etc. Would like to try grilled chicken and cottage cheese this afternoon. Pt denies questions related to gastric bypass diet. Nutrition Focused Physical Exam: Not performed Malnutrition Diagnosis: Identified: less than 75% of estimated energy requirement for greater than or equal to 1 month and greater than 10% weight loss in 6 months is consistent with Severe protein-calorie malnutrition in the setting of chronic illness (Won, JPEN J Parenteral Enteral Nutr. 2011; 36(3): 273-83) Nutrition to continue to follow up while inpatient [address]OR [address] * Pito Baltazar, OT - 03/26/2023 9:15 AM EDT Occupational Therapy Treatment Note Treatment Number OT: 4 ?? Patient profile: Per MD: Leandra Wilks??is a 43 y.o.??female??with medical history significant for morbid obesity, GERD, CHUN, IBS, depression and laparoscopic renato en y gastric bypass on 01/10/23 who has struggled with dysphagia and abdominal pain since surgery who presents 03/18/23 with continued d ysphagia, nausea/vomiting and abdominal pain. ?? Past Medical History No past medical history on file. Past Surgical History Past Surgical History: Procedure Laterality Date ??? ABDOMINAL EXPLORATION SURGERY ?? 10/31/2004 ?? b/l salpingectomy and removel enodmetrial implantsin cul de sac ??? APPENDECTOMY ? CARPAL TUNNEL RELEASE Bilateral ? CHOLECYSTECTOMY ? HYSTERECTOMY, VAGINAL ?? 05/12/2015 ??? PRO LAP GASTRIC BYPASS/RENATO-EN-Y N/A 01/10/2023 ?? @LAPAROSCOPIC GASTROPLASTY W/ RENATO-EN-Y CONSTRUCTION (WRVU 29.4) performed by Iram Borrero MD at [facility] MAIN OR ??? PRO UPPER GI ENDOSCOPY, DIAGNOSTIC N/A 01/10/2023 ?? EGD, UPPER GI ENDOSCOPY performed by Iram Borrero MD at [facility] MAIN OR ??? PRO UPPER GI ENDOSCOPY, DIAGNOSTIC N/A 03/05/2023 ?? EGD, UPPER GI ENDOSCOPY (WRVU 2.09) performed by Iram Borrero MD at [facility] MAIN OR ?? Active Non-Hospital Problems ?? Diagnosis ? ? Severe obesity (BMI >= 40) ??? CHUN (obstructive sleep apnea) ??? Pain in right foot ??? Glaucoma ??? Fibromyalgia ??? Osteoarthritis, multiple sites ??? Adult BMI 40.0-44.9 kg/sq m ??? Depression with anxiety ??? Calculi, ureter ??? Back pain ??? Mood disorder ??? Chronic pelvic pain in female ??? Unspecified dyspareunia ??? Endometriosis ??? Irritable bowel syndrome with diarrhea ? Social History: Patient lives with boyfriend, 2 dogs, 2 cats and a fish Home Setup: FOS to second floor apartment, 4STE apartment building w B handrails, tub shower DME: crutches Baseline ADL/Mobility: Prior to gastric bypass in December, pt was Independent with all ADLs, IADLs, driving, since gastric bypass and symptom onset, pt requiring assistance from boyfriend for toilettransfers, ambulation and IADLs. ?? Precautions/Special Considerations: Full Code, Fall risk, orthostatic hypotension, significant dizziness Interval History: Per MD: She continues to struggle with eating, but it does not appear to be related to a lack of appetite, but rather pronounced nausea. She reports improvement with the use of anti-emetics, which has been demonstrated in improved eating habits. There is likely a psychological component that is influencing her eating patterns, as she notes that the fear of choking on her food has lessened, but this will be more appropriately addressed in the outpatient setting. S: I feel unsteady O: Patient seen for skilled OT treatment, and demonstrated the following: ?? Self-care: ?? Grooming: Set up assist (pt able to brush teeth while standing at bedside for ~7mins w no LOB noted, pt reported increased dizziness with standing activity, mildly tremulous in LE and UE while standing, increased time required) ?? Functional Mobility: ?? Supine to sit: SBA ?? Sit to stand: SBA w FWW and verbal cues for hand placement to not use both hand to pull up on walker ?? Ambulation: SBA w FWW and verbal cues for FWW management (pt able to walk ~15feet around room, pt reported feeling unsteady and declined to walk further, short steps, slow pace. Controlled movement \s throughout) ?? Stand to sit: SBA w FWW ?? Sit to supine: NA (pt remained in recliner at end of session) ?? Cognition: ?? Behavior / Mood: alert, cooperative and lethargic ?? Alert and oriented to: person, place, time and situation ?? Follows commands: 2 step ?? Attention: WFL ?? Safety awareness: decreased insight into deficits ?? Endurance: poor ?? Vitals: 142/88, HR 78bpm, Spo2 99% on RA Pain: No c/o pain throughout session Education: Pt/family/caregiver education ongoing regarding: Assistive device/technique, ADL, Breathing exercises, Positioning, Safety, Activity pacing/Energy conservation, Balance, Recommendations and Discharge planning. Staff Communication: Patient status, treatment, and mobility recommendations discussed with nursing/other staff. ASSESSMENT: Pt seen for continuation of POC. Pt agreeable to therapy despite nausea and dizziness upon entry. Pt requires increased time to take meds d/t nausea. Pt able to walk SBA w FWW ~15ft around room. Pt completed grooming tasks while standing at bedside with SBA. Pt requires increased time when engaged in functional tasks d/t weakness and dizziness. Pt continue to experience dizziness throughout functional tasks. Pt educated on coping strategies (guided meditation, journaling, breathing strategies). Pt benefits from continued encouragement. Pt reported increased dizziness while taking steps w FWW and CGA. Pt Pt will benefit from ongoing therapeutic interventions to achieve pt's and th erapy goals Equipment needs at discharge: to be determined Anticipated Discharge Disposition: swing bed rehabilitation facility, to be determined pending medical status & functional progression Daily schedule / Staff Recommendations: ??? Utilize upright chair position using bed features or transfer to recliner chair as appropriate with CGA ??? Ambulate as tolerated CGA ??? Encourage participation in ADL's by providing set up A on tray table and physical assist only as needed Occupational Therapy Goals: To be achieved by 04/03/23. Pt will be Independent with LB dressing Pt will be Independent with LB bathing Pt will be Independent with toileting tasks and toilet transfers PROGRESSING Pt will complete 3 grooming tasks while standing at sink PROGRESSING Pt will Independently ambulate functional household distances PROGRESSING Pt will recall the 3 Ps of energy conservation (Plan, Pace, Prioritize) 100% of the time Therapy Frequency (OT): 2-4 times/wk Total Minutes, Occupational Therapy: 45 (SCHM X1 TAF X2 ([id number])) Pager: [phone] Pito Baltazar, OT 03/26/2023 Occupational Therapy Rehabilitation Department * Caron Conde MD - 03/26/2023 8:28 AM EDT Neurology Consult Note - 03/26/2023 Admit date: 03/18/2023 Attending: Iram Borrero MD ID: Leandrachapincito Wilks is a 43 y.o. female??with medical history significant for morbid obesity, GERD, CHUN, IBS, depression and laparoscopic renato en y gastric bypass on 01/10/23 who has struggled with dysphagia and abdominal pain since surgery who presents 03/18/23 with continued dysphagia, nausea/vomiting and abdominal pain. Neurology consulted for evaluation of dizziness, diplopia that developed after admission. Interval Hx: ?? Reports dizziness slightly worse today. ?? Diplopia essentially unchanged; wearing eyepatch. ?? Lamictal held for trial washout. Physical Exam: General: Appears stated age, WDWN, mild discomfort HEENT: NC/AT, MMM Pulm: Normal respiratory effort Neuro: MS: Awake, alert. Language: Fluent, no dysarthria or paraphasic errors, repetition intact CN: CN II, III, IV, - PERRLA, dysconjugate gaze at rest, EOMI provokes worsened double vision with right lateral gaze. No ptosis. CN V - Facial sensation intact/symmetric CN VII - No facial asymmetry CN VIII - Hearing intact to voice/finger rub CN IX, X - Not tested CN XI - SCM, trap strength symmetric CN XII - Tongue midline Motor: No focal atrophy, normal tone throughout Fine motor movements preserved, no bradykinesia Strength: Roots Muscles Action Right Left C5-6 Brachialis / Biceps brachii Elbow flexion 5 5 C6-8 Triceps brachii Elbow extension 5 5 C7-T1 Flexor digitorum profundus Digit II-V flexion / lamp shades supervisor 5 5 L2-3 Iliopsoas Hip flexion 5 5 L3-4 Quadriceps femoris Knee extension 5 5 L4-5 Tibialis anterior Ankle dorsiflexion/inversion 5 5 L5-S2 Triceps surae Ankle plantarflexion 5 5 Sensory: Intact to light touch throughout Reflexes: Arc Right Left Comments Biceps tendon C5-C6 2+ 2+ Brachioradialis tendon C5-C6 2+ 2+ Patellar ligament L3-L4 1+ 1+ Achilles tendon S1-S2 1+ 1+ Coordination: FNF intact, no dysmetria or tremor noted SHAYE, finger tapping smooth and symmetric Gait: Not performed. Labs: Last wbc, hgb, hct plt Recent Labs 03/26/23 0400 WBC 6.7 HGB 11.4* HCT 34.0* Last Ca, Mg, Phos Recent Labs 03/26/23 0400 CALCIUM 8.7 PHOS 4.4 MAGNESIUM 0.94 Diagnostic Tests and Imaging: Results for orders placed or performed during the hospital encounter of 03/18/23 XR Fluoro Barium Swallow (Double Contrast) (Exam End: 03/19/2023 1:22 PM) Impression 1. Exam limited because only 2 swallows were completed. 2. No obstruction or intestinal dilatation and normal appearance of fundal pouch. Contrast passes rapidly through the gastrojejunal anastomosis into small bowel segments. 3. Small sliding hiatal hernia. Thank you for letting us participate in the care of this patient. If you are a health care provider and have any questions regarding this report, please contact the number below. For patients who have questions please contact the health direct care staffer that requested your imaging first. Electronically signed by: Poppy Webster MD, [facility] ([phone]), at 03/19/2023 1:29 PM MRI Cholangiopancreatography WO Contrast (Exam End: 03/19/2023 5:40 PM) Impression Beaded-strictured appearance of the intrahepatic biliary ducts extending into the most cranial aspect of the common hepatic duct. Differential diagnosis would include primary sclerosing cholangitis (PSC) (most commonly), ischemic cholangiopathy, HIV-associated cholangitis, chemotherapy-induced cholangitis, IgG4 disease, amongst others. Thank you for letting us participate in the care of this patient. If you are a health care provider and have any questions regarding this report, please contact the number below. For patients who have questions please contact the health direct care staffer that requested your imaging first. Electronically signed by: Maximo Forrest [facility] ([phone]), at 03/20/2023 7:[address] Head wo Contrast (Generic) (Exam End: 03/21/2023 12:34 PM) Impression Normal brain CT. Thank you for letting us participate in the care of this patient. If you are a health care provider and have any questions regarding this report, please contact the number below. For patients who have questions please contact the health direct care staffer that requested your imaging first. Electronically signed by: Erlin Castorena [facility] ([phone]), at 03/21/2023 12:49 PM MRI Orbit wwo Contrast (Exam End: 03/24/2023 11:16 AM) Impression 1. Normal brain. 2. Normal orbits. Thank you for letting us participate in the care of this patient. If you are a health care provider and have any questions regarding this report, please contact the number below. For patients who have questions please contact the health direct care staffer that requested your imaging first. Electronically signed by: Lorie Coe MD, [facility] ([phone]), at 03/24/2023 12:20 PM MRI Brain wwo Contrast (Generic) (Exam End: 03/24/2023 11:16 AM) Impression 1. Normal brain. 2. Normal orbits. Thank you for letting us participate in the care of this patient. If you are a health care provider and have any questions regarding this report, please contact the number below. For patients who have questions please contact the health direct care staffer that requested your imaging first. Electronically signed by: Lorie Coe MD, [facility] ([phone]), at 03/24/2023 12:20 PM Orthostatics blood pressure measurements: Lying 102/61 (75), Sitting 116/78 (91), Standing 102/77 (85) Assessment: Leandra Wilks, a 43-year-old woman with n/v dysphagia following gastric bypass surgery, neurology was consulted for vertigo, diplopia that has not resolved. TSH and inflammatory markers checked yesterday have returned within normal limits. Also reassuring is an unremarkable MRI brain and orbits, which is reassuring against structural pathology. However, a although small lesion to CN may not be visualized. With respect to possible Lamictal toxicity/side effects, the recommendation is to hold it for a trial washout period to see if this improves symptoms. If Leandra or psychiatry prefers she stay on themedication, this is entirely reasonable. If there are specific questions about Lamictal's half lifeor possible effects of toxicity, consider reaching out to pharmacy or clinical pharmacology for further suggestions. Again, the recommendation to temporarily hold Lamictal is a suggestion only and may or may not result in improvement. Agree with her continuing to work with PT (especially vestibular therapy). Their notes suggest a peripheral vestibular problem, which could certainly explain some of her symptoms. If she doesn't improve, consider reaching out to ENT for further workup of peripheral vertigo. In the meantime, recommend symptom management with medications such as meclizine. Recommendations: ?? Continue vestibular PT. ?? Symptom management with meclizine PRN. ?? Consider trial of holding Lamictal to see if symptoms resolve. ?? If no improvement after appropriate washout period, reasonable to restart Lamictal. ?? If symptoms improve with Lamictal held, still reasonable to retry with typical dose ramp in the future. ?? Consider consulting pharmacy or clinical pharmacology about Lamictal toxicity, washout period. ?? Ultimately, neurology defers to psych about restarting Lamictal (being used for psych management). ?? Continue high-dose thiamine. Neurology Consult #[id number] Caron Conde MD Neurology PGY3 03/26/2023 Associated attestation - Darinel Flores MD - 04/05/2023 8:38 AM EDT Neurology Attending Note Darinel Flores MD PhD (pager [phone]) I have seen and examined Leandra Wilks on 03/[address] Conde, whose note contains our history, exam, data/imaging review and assessment and recommendations. * Natalee Winn MD - 03/26/2023 7:26 AM EDT Minimally Invasive Surgery Inpatient Progress Note ID: Leandra Wilks is a 43 y.o. female with medical history significant for morbid obesity, GERD,CHUN, IBS, depression and laparoscopic renato en y gastric bypass on 01/10/23 who has struggled with dysphagia and abdominal pain since surgery who presents 03/18/23 with continued dysphagia, nausea/vomiting and abdominal pain. Subjective / 24h: ?? Taking PO medications, tolerated mashed potatoes and pot roast for dinner last night ?? Working with PT/OT, still reporting dizziness although nausea is improved and she was able to ambulate with walker and stand by assist ?? Received one dose Lamictal yesterday morning, dc'ed before she received evening dose per neuro recs after discussion with PT/ Objective: Last value Range last 24hrs Temperature Temp: 36.6 ??C (97.9 ??F) Temp: [36.5 ??C (97.7 ??F)-37 ??C (98.6 ??F)] Heart Rate Heart Rate: 68 Heart Rate: [68] Blood Pressure BP: 139/84 BP: (113-141)/(63-89) Respiratory Rate Resp: 18 Resp: [16-18] SpO2 SpO2: 100 % SpO2: [96 %-100 %] 03/25 07 - 03/26 0700 In: 2960 [P.O.:580; I.V.:2105] Out: - PE: General: Alert, no acute distress Head: Atraumatic, non cyanotic Cardiac: Regular rate & rhythm Pulmonary: Normal respiratory effort on RA Abdominal: Soft, non distended, not reactive to abdominal exam, dermabond intact over incisions which are well appearing, no erythema, no drainage, no induration Neuro: Grossly intact, follows commands Extremities: Warm and well-perfused Labs: Recent Labs 03/26/23 0400 03/25/23 0331 03/24/23 0351 WBC 6.7 8.4 6.8 HGB 11.4* 10.8* 10.5* HCT 34.0* 32.8* 31.5* PLATELET 296 291 268 Recent Labs 03/26/23 0400 03/25/23 0331 03/24/23 0551 03/24/23 0351 NA 140 138 -- 141 K 3.8 3.4* 3.4* Not Perf CL 104 100 -- 104 CO2 25 22 -- 29 BUN 4* 3* -- 5* CREATININE 0.70 0.61* -- 0.65* GLUCOSE 82 94 -- 81 CALCIUM 8.7 8.8 -- 8.3* MAGNESIUM 0.94 0.67* -- 0.75 PHOS 4.4 3.4 -- 3.1 Microbiology: N/A New Imaging/Studies: None A/P: Leandra Wilks is a 43 y.o. female with medical history significant for morbid obesity, GERD, CHUN, IBS, depression and laparoscopic Renato-en-Y gastric bypass on 01/10/23 who has struggled with dysphagia and abdominal pain since surgery who presented 03/18/23 with continued dysphagia, nausea/vomiting and abdominal pain. Patient has undergone extensive work up thus far which has been unrevealing as etiology of symptomology. 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 Neurology and psychiatry have been involved in her workup and care, and the working theory at this point is that her neurologic symptoms may be a side effect from restarting Lamictal at home dose after several weeks of cessation. Yesterday neurology recommended completely stopping Lamictal for now. Currently awaiting reccs from psychiatry about if/when/what dose for restarting Lamictal in the future. Her psychiatric meds are managed by her PCP, she is not currently established with a psych provider. OT/PT recommending acute rehab. Per discussion with care management and inpatient facilities, she does not qualify for acute inpatient rehab at this time. Current barriers to discharge - need clear medication plan going forward, and either placement in SNF/swing or home therapy.From a surgical standpoint, we have largely exhausted available diagnostic modalities and have not identified any anatomic or physiologic gastrointestinal causes for patient's presentation. Sincerelyappreciate psychiatry and neurology recommendations. NEURO: Pain control with PRN Tylenol, prn home Flexeril. No narcotics. Appreciate neurology reccs. Trial meclizine. PSYCH: Appreciate psych/BIT reccs and care, continue home fluoxetine, Lamictal dc'ed for now, IV thiamine daily, awaiting reccs from psych re: Lamictal PULM: IS, OOB, albuterol PRN CV: No acute concerns GI: tolerating soft diet, scheduled sucralfate, scheduled Zofran, PRN Compazine. Multimodal nausea control. Will need outpatient hepatology follow up. Trend LFTs FEN: Voiding spontaneously, monitor I/Os, LR @ 50 cc/hr PPx: Lovenox, PPI, SCDs DISPO: Floor status, full code, awaiting, psych reccs and bed placement vs home health Signed: EDER Hernandez [facility]im[facility]vasive and Bariatric Surgery 11:56 AM 03/26/23 Service pager: [phone] Continue holding lamictal per discussion with Dr. Flores from Neurology yesterday. Discussion with Psychiatry, defer to neurology recommendations regarding when to restart Lamictal. Restart when safe at 25mg QD for two weeks then increased to BID. She can follow up with her PCP (who managed her lamictal prior) for slow uptitration. Discussed with neurology team today regarding timing of restarting lamictal. Recommended discussionwith clinical helicopter officer to determine if continued holding of medication would be of benefit. Would not recommend any more invasive evaluation at this time. If symptoms persist, could consider ENT evaluation but does not require continued inpatient treatment/observation. Discussed non-urgent case with clinical helicopter officer who will evaluate patient. Lamictal level ordered. Continue supportive care. Dispo: acute rehab recommended by PT at this time, pending placement Natalee Winn MD 03/26/23 1:35 PM MISpager [phone] * Candelaria Fish RN - 03/26/2023 4:42 AM EDT OUTCOME EVALUATION NOTE: OUTCOME SUMMARY: Patient progressing towards d/c goals appropriately at this time. Patient's pain adequately controlled with scheduled and PRN medications (See MAR). Nausea has been controlled with scheduled Zofran. Up to the bedside commode as needed. Eating meals.. Currently resting comfortably in bed, all needs met at this time. Will continue to closely monitor. PLAN MOVING FORWARD: Pain control Mobilize D/C planning INDIVIDUALIZED FALL PREVENTION: Patient is currently a high risk to Fall. Patient educated on bed/chair alarm, demonstrates proper use of call burden and verbalizes understanding of fall preventions implemented. Patient-specific fall risk factors per assessment: [current deficits]: Pain, Medications, Hospital Environment, Impaired Mobility, Recent Surgery Assistance [level of assistance required for transfers and ambulation]: 1Assist Supervision [direct monitoring required during toileting and ADLs]: Hands on with ADL's Surveillance [continuous indirect monitoring]: Masimo, Purposeful Rounding, Nurse Knowledge Exchange at Bedside, Bed Alarm Set * Lisbeth Roca RN - 03/25/2023 5:11 PM EDT OUTCOME EVALUATION NOTE: OUTCOME SUMMARY: Patient progressing towards d/c goals appropriately at this time. Patient's pain adequately controlled with scheduled and PRN medications (See MAR). Nausea has been controlled majority of the shift until this afternoon. Scheduled PO zofran administered. Worked with PT/OT today and got up to the chair for a little while, tolerated okay. Up to the bedside commode as needed. Eating meals. Gave electrolyte replacements, and vitamin supplements. Currently resting comfortably in bed, all needs met atthis time. Will continue to closely monitor. PLAN MOVING FORWARD: Pain control Mobilize D/C planning INDIVIDUALIZED FALL PREVENTION: Patient is currently a high risk to Fall. Patient educated on bed/chair alarm, demonstrates proper use of call burden and verbalizes understanding of fall preventions implemented. Patient-specific fall risk factors per assessment: [current deficits]: Pain, Medications, Hospital Environment, Impaired Mobility, Recent Surgery Assistance [level of assistance required for transfers and ambulation]: 1Assist Supervision [direct monitoring required during toileting and ADLs]: Hands on with ADL's Surveillance [continuous indirect monitoring]: Viktoriyaimo, Purposeful Rounding, Nurse Knowledge Exchange at Bedside, Bed Alarm Set * Felicia Oneal PT - 03/25/2023 2:11 PM EDT Physical Therapy Evaluation Patient profile: Leandra Wilks is a 43 y.o. right handed female admitted on 03/18/[address] Iram Borrero MD with h/o morbid obesity, GERD, CHUN, IBS, depression, and recent lap RYGB (01/10/23) c/b continued dysphagia, N/V, and abdominal pain, who now requires neurology consult for acute dizziness and binocular diplopia starting 03/20. Patient with the following active problems: No past medical history on file. Past Surgical History: Procedure Laterality Date ??? ABDOMINAL EXPLORATION SURGERY 10/31/2004 b/l salpingectomy and removel enodmetrial implantsin cul de sac ??? APPENDECTOMY ??? CARPAL TUNNEL RELEASE Bilateral ??? CHOLECYSTECTOMY ??? HYSTERECTOMY, VAGINAL 05/12/2015 ??? PRO FREEING BOWEL ADHESION, ENTEROLYSIS N/A 03/22/2023 @LYSIS OF ADHESIONS, ABD. (WRVU 18.46) performed by Iram Borrero MD at [facility] MAIN OR ??? PRO LAP GASTRIC BYPASS/RENATO-EN-Y N/A 01/10/2023 @LAPAROSCOPIC GASTROPLASTY W/ RENATO-EN-Y CONSTRUCTION (WRVU 29.4) performed by [facility] MA[facility] OR ??? PRO LAP, DIAGNOSTIC ABDOMEN N/A 03/22/2023 LAPAROSCOPY, DIAGNOSTIC, ABDOMEN (WRVU 5.14) performed by Iram Borrero MD at [facility] MAIN OR ??? PRO UPPER GI ENDOSCOPY, DIAGNOSTIC N/A 01/10/2023 EGD, UPPER GI ENDOSCOPY performed by Iram Borrero MD at [facility] MAIN OR ??? PRO UPPER GI ENDOSCOPY, DIAGNOSTIC N/A 03/05/2023 EGD, UPPER GI ENDOSCOPY (WRVU 2.09) performed by Iram Borrero MD at [facility] MAIN OR ??? PRO UPPER GI ENDOSCOPY, DIAGNOSTIC N/A 03/20/2023 EGD, UPPER GI ENDOSCOPY (WRVU 2.09) performed by Gerber Salomon MD at [facility] ENDOSCOPY Active Non-Hospital Problems Diagnosis ? ? Severe obesity (BMI >= 40) ??? CHUN (obstructive sleep apnea) ??? Pain in right foot ??? Glaucoma ??? Fibromyalgia ??? Osteoarthritis, multiple sites ??? Adult BMI 40.0-44.9 kg/sq m ??? Depression with anxiety ??? Calculi, ureter ??? Back pain ??? Mood disorder ??? Chronic pelvic pain in female ??? Unspecified dyspareunia ??? Endometriosis ??? Irritable bowel syndrome with diarrhea Social History: Home set-up: lives in a single level apartment on the second floor with boyfriend and two teen children Bathroom Set-up: tub shower combo Stairs: FOS between floors with rail Baseline Mobility: independent Equipment at home: none Fall history: denies Precautions/Special Considerations: fall risk Lines: PIV Activity Orders: AAT Diet: Mechanical soft Mobility and Positioning Recommendations: ?? Pt. to utilize fww and Kong with cuing for gaze stabilization for ambulation and transfers with nursing. ?? Please encourage up to chair for meal times as able. ?? Pt encouraged to ambulate frequently with staff, getting into the bathroom for toileting and walking out in the shields >/= 3 times daily as able. Subjective: ???I am doing better overall, normally when I get up, it gets much worse, but we can certainly try.?? Objective: Pt seen for evaluation today. Pain: Number Location At rest 3/10 abdominal With activity 3/10 abdominal Vital Signs: VSS during session Mental Status: alert, oriented to person, place, and time Vision: blurred, relays vertical diplopia. Noted to have lateral strabismus in right eye. Resting nystagmus Skin: intact that was visualized Musculoskeletal: ROM: bilateral UE/LE WFL Strength: bilateral UE/LE WFL Sensation: intact to light touch Bed Mobility: Supine to Sit: independent with HOB at 40 degrees Sit to Supine: independent with HOB at 40 degrees Transfers: Sit to Stand: Kong with fww Stand to Sit: Kong with fww- cuing for gaze stabilization Bed to Chair: Kong with fww and cuing for gaze stabilizaiton Gait: Distance: 10 ft Device used: fww Level of assist: Kong Gait mechanics: short step length, guarded, minimal head and neck movement, good gaze stabilizationstrategies Stairs: not assessed Balance: Sitting Static: modified independent with UE support Sitting Dynamic: supervision Standing Static: Kong with fww Standing Dynamic / Gait: ModA with fww Tinnitus or hearing changes? denies Recent URI or GI illness within the last 14 days? endorses Falls: denies VOMS: Occulomotor: Smooth Pursuit: Vertical: Smooth pursuit: Smooth Horizontal: Smooth pursuit: Smooth Saccades: Normal Resting Nystagmus: Yes and Right Beating Vestibular: VOR: Intact Head Impulse: Right: and Positive Head Shaking: Positive, Right beating and Number of beats: 6 Convergence: Normal VOR Cancellation intact VBI Screening: Bilateral normal HINTS(Plus): Head Impulse:positive Nystagmus:right beating 3rd degree Test of Skew:negative Auditory symptoms:negative Patient educated on VOR x 1 exercises in horizontal and vertical and provided [facility] Education: patient has been educated on Bed mobility, Transfers, Stairs, Safety , Equipment use, Gait , Role of therapy and Discharge planning and verbalize understanding. Patient status, treatment, and mobility recommendations discussed with nursing. Assessment: Leandra Wilks was seen today for physical therapy evaluation. Leandra is a very pleasant 43 year old woman referred to physical therapy for mobility assessment due to new onset dizziness whom presents with signs and symptoms consistent with a right sided vestibular unilateral hypofunction and would benefit from skilled PT to address her impairments and improve her functional independnece. Feel she would be an excellent acute rehab candidate to return to her prior level of functional once medically ready. Discharge Recommendations: Based on the current findings, Anticipated Discharge Disposition (PT): acute rehabilitation facility when medically ready for hospital discharge. Consult Recommendations: No other consults recommended at this time. Equipment needs: Anticipated Equipment Needs at Discharge (PT): walker, front wheeled Goals: To be achieved by 5/15/23: 1. Pt. to demonstrate knowledge of safety limitations and precautions and will appropriately request assistance for functional activities and to mobilize. 2. Pt. to perform bed to chair transfers with modified independence using a front wheeled walker. 3. Pt. to ambulate 150 feet with modified independence using a a front wheeled walker. 4. Pt. to ambulate up/down 12 step/stairs using one rail with supervision. 5. Family or caregiver to demonstrate understanding of therapeutic interventions to support the care of the patient. 6. Plan: Therapy Frequency (PT): 3-5 times/wk for therapy including balance training, bed mobility training, gait training, patient/family education, stair training, transfer training and gaze stabilization exercises. Patient/family understand and agree with plan as stated above. PT Evaluation Code Rationale: ?? Diagnosis & Pertinent Co-Morbidities, personal factors, and present illness affecting Plan of Care: (see above); Additional personal factors or co- morbidities that impact plan: ?? Total # of Factors: 0 1-2 3+ x ?? Examination of body system impairments, functional limitations and behaviors, and/or participation restrictions. Addressing 1-2 elements Addressing 3 + elements x Addressing 4 + elements ?? Clinical presentation: See assessment above. Stable/Uncomplicated Evolving/Fluctuating Symptoms Unstable/Unpredictable x ?? Clinical decision making of low complexity based on pt's functional performance as outlined in this evaluation. Time IN / OUT: 1315/1400 Total Minutes, Physical Therapy: 45 (PT EVAL LOW COMPLEXITY) Felicia Oneal PT Pager: [phone] Physical Therapy Inpatient Rehabilitation Department * Eva Kapoor P - 03/25/2023 9:17 AM EDT General Neurology Progress Note Patient name: Leandra Wilks Date of : 1980 PCP: Sree High APRN CC: dizziness & diplopia Patient ID: Leandra Wilks is a 43 y.o. F with h/o morbid obesity, GERD, CHUN, IBS, depression, and recent lapRYGB (01/10/23) c/b continued dysphagia, N/V, and abdominal pain, who now requires neurology consultfor acute dizziness and binocular diplopia starting 03/20. Interval History: - endorses continued dizziness & diplopia - eye patch on either side alleviates diplopia - no worsening with particular gaze laterality - no issues with gait/balance Current Medications: Scheduled Meds: ??? potassium chloride 20 mEq Intravenous Q2H ??? enoxaparin 40 mg Subcutaneous Daily ??? thiamine 500 mg Intravenous TID ??? lamoTRIgine 25 mg Oral BID ??? pantoprazole 40 mg Intravenous Daily ??? sodium chloride 0.9 % (flush) 5 mL Intravenous BID ??? FLUoxetine 20 mg Oral Daily ??? propranoloL 20 mg Oral BID ? ? sucralfate 1 g Oral 4 Times Daily AC & HS ??? docusate sodium 100 mg Oral BID Continuous Infusions: ??? lactated Ringers 1,000 mL (03/25/23 0650) PRN Meds:.BUpivacaine (pf), meclizine, acetaminophen, prochlorperazine, sodium chloride 0.9 % (flush), cyclobenzaprine, albuteroL, metoclopramide, ondansetron OR ondansetron, glucose 40% oral geLOR dextrose 10% OR glucagon Physical Exam: Vitals: Temp: [36.8 ??C (98.2 ??F)-37.2 ??C (99 ??F)] Heart Rate: [72] Resp: [16-18] BP: (105-128)/(66-85) SpO2: [94 %-99 %] Heart Rate from SpO2: [70 bpm-87 bpm] Gen: Patient of apparent stated age awake, alert, fatigued but NAD Neck: Supple, no meningismus, no carotid bruit, no occipital tenderness CV: RRR, no murmurs, rubs, gallops Resp: normal WOB, CTAB Abd: soft, nontender, nondistended Ext: No edema. No bony deformity Neuro Exam: MS: AAOx4, clear language, no dysarthria, follows commands appropriately CN: PERRLA, EOMI with general discomfort w/o directionality, visual stovall full Facial sensation intact and symmetric, no facial asymmetry Hearing intact to finger rub Palate elevates symmetrically, tongue protrudes midline SCM and trap strength intact Motor: Normal bulk and tone. 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 Nursing Professor LE: 5/5 R, 5/5 L Hip flexion 5/5 R, 5/5 L Knee extension 5/5 R, 5/5 L Knee flexion 5/5 R, 5/5 L Foot dorsiflexion 5/5 R, 5/5 L Foot plantar flexion Sensation: Intact to light touch, temperature, and vibration throughout Reflexes: DTRs 2+ R, 2+ L Biceps 2+ R, 2+ L Brachioradialis 2+ R, 2+ L Triceps 2+ R, 2+ L Patellar 2+ R, 2+ L Achilles tendon Toes - R down, L down Coordination: Finger to nose intact, no dysmetria No tremor Gait: Stable, steady Labs: Recent Results (from the past 24 hour(s)) Magnesium Result Value Ref Range Magnesium 0.67 (L) 0.69 - 1.07 mmol/L Phosphorus Result Value Ref Range Phosphorus 3.4 2.5 - 4.5 mg/dL Comprehensive metabolic panel (non-fasting) Result Value Ref Range Glucose Lvl 94 65 - 199 mg/dL BUN 3 (L) 8 - 18 mg/dL Creatinine 0.61 (L) 0.70 - 1.20 mg/dL Sodium 138 135 - 145 mmol/L Potassium 3.4 (L) 3.5 - 5.0 mmol/L Chloride 100 98 - 107 mmol/L CO2 22 22 - 31 mmol/L Anion Gap 16 (H) 5 - 15 mmol/L Calcium 8.8 8.5 - 10.5 mg/dL Total Protein 5.6 (L) 6.1 - 8.0 g/dL Albumin 3.2 3.2 - 5.2 g/dL AST 43 (H) 0 - 30 unit/L ALT 42 (H) 0 - 30 unit/L Alk Phos 115 (H) 35 - 105 unit/L Total Bilirubin 0.6 0.2 - 1.3 mg/dL Estimated GFR 112 >=60 mL/min/1.73 m?? Hemogram Result Value Ref Range WBC 8.4 4.0 - 9.5 x10(3)/mcL RBC 3.77 (L) 4.00 - 5.21 x10(6)/mcL Hemoglobin 10.8 (L) 11.7 - 15.5 g/dL Hematocrit 32.8 (L) 35.7 - 45.8 % MCV 87.0 82.6 - 94.4 fL MCH 28.6 27.1 - 32.0 pg MCHC 32.9 31.7 - 35.0 g/dL Platelets 291 145 - 357 x10(3)/mcL RDWSD 48.2 (H) 37.0 - 46.0 fL RDWCV 15.0 (H) 11.5 - 14.1 % MPV 9.8 7.6 - 12.9 fL nRBC % Auto 0.0 % nRBC Abs Auto 0.000 0.000 - 0.000 x10(3)/mcL Differential, Automated Result Value Ref Range Neutrophils % 55.0 % Neutr Abs (ANC) 4.60 1.70 - 6.10 x10(3)/mcL Lymphocytes % 29.4 % Lymphocytes Abs 2.5 0.9 - 3.2 x10(3)/mcL Monocytes % 6.2 % Monocyte Abs 0.5 0.3 - 0.9 x10(3)/mcL Eosinophils % 5.7 % Eosinophils Abs 0.5 (H) 0.0 - 0.4 x10(3)/mcL Basophils % 0.7 % Basophils Abs 0.1 0.0 - 0.1 x10(3)/mcL Immature Gran % 3.00 % Reshma Gran Abs 0.25 (H) 0.00 - 0.04 x10(3)/mcL Diagnostic Tests and Imaging: Results for orders placed or performed during the hospital encounter of 03/18/23 XR Fluoro Barium Swallow (Double Contrast) (Exam End: 03/19/2023 1:22 PM) Impression 1. Exam limited because only 2 swallows were completed. 2. No obstruction or intestinal dilatation and normal appearance of fundal pouch. Contrast passes rapidly through the gastrojejunal anastomosis into small bowel segments. 3. Small sliding hiatal hernia. Thank you for letting us participate in the care of this patient. If you are a health care provider and have any questions regarding this report, please contact the number below. For patients who have questions please contact the health direct care staffer that requested your imaging first. Electronically signed by: Poppy Webster MD, [facility] ([phone]), at 03/19/2023 1:29 PM MRI Cholangiopancreatography WO Contrast (Exam End: 03/19/2023 5:40 PM) Impression Beaded-strictured appearance of the intrahepatic biliary ducts extending into the most cranial aspect of the common hepatic duct. Differential diagnosis would include primary sclerosing cholangitis (PSC) (most commonly), ischemic cholangiopathy, HIV-associated cholangitis, chemotherapy-induced cholangitis, IgG4 disease, amongst others. Thank you for letting us participate in the care of this patient. If you are a health care provider and have any questions regarding this report, please contact the number below. For patients who have questions please contact the health direct care staffer that requested your imaging first. Electronically signed by: Maximo Forrest DO, [facility] ([phone]), at 03/20/2023 7:[address] Head wo Contrast (Generic) (Exam End: 03/21/2023 12:34 PM) Impression Normal brain CT. Thank you for letting us participate in the care of this patient. If you are a health care provider and have any questions regarding this report, please contact the number below. For patients who have questions please contact the health direct care staffer that requested your imaging first. Electronically signed by: Erlin Castorena DO, [facility] ([phone]), at 03/21/2023 12:49 PM MRI Orbit wwo Contrast (Exam End: 03/24/2023 11:16 AM) Impression 1. Normal brain. 2. Normal orbits. Thank you for letting us participate in the care of this patient. If you are a health care provider and have any questions regarding this report, please contact the number below. For patients who have questions please contact the health direct care staffer that requested your imaging first. Electronically signed by: Lorie Coe MD, [facility] ([phone]), at 03/24/2023 12:20 PM MRI Brain wwo Contrast (Generic) (Exam End: 03/24/2023 11:16 AM) Impression 1. Normal brain. 2. Normal orbits. Thank you for letting us participate in the care of this patient. If you are a health care provider and have any questions regarding this report, please contact the number below. For patients who have questions please contact the health direct care staffer that requested your imaging first. Electronically signed by: Lorie Coe MD, [facility] ([phone]), at 03/24/2023 12:20 PM Assessment and Plan: Leandra Wilks is a 43 y.o. F with h/o morbid obesity, GERD, CHUN, IBS, depression, and recent lapRYGB (01/10/23) c/b continued dysphagia, N/V, and abdominal pain, who now requires neurology consultfor acute dizziness and binocular diplopia starting 03/22. Leandra reports acute onset dizziness and diplopia starting 03/20. Prior exams were notable for limited movement of L. Inferior rectus 5/5 and R. Inferior rectus 5/6. Exam today showed general discomfort with EOM exam, but no specific worsening with lateralization. Strength and reflexes intact. MRI Orbit wwo Contrast and MRI Brain wwo Contrast showed normal findings. Etiology still unclear but ischemic or inflammatory pathology of brainstem seems less likely based on imaging, as does nutritional/vitamin deficiency based on labs WNL. Can consider medication side effect as she recently re-startedlamictal 150mg BID (03/18) after being off it for 3+ weeks. Received 150mg 3x within 24hrs. Dose was reduced to 25mg BID by Psychiatry but high initial dose toxicity could cause blurred vision, diplopia, dizziness, drowsiness. Pt first reported dizziness and light-headedness on 03/20, with notable nystagmus on exam on 03/21. CTM symptoms on lower dose of lamictal, and continue symptomatic treatment with alternating eye patch, PT, as well as meclizine PRN. Recommendations - obtain inflammatory markers (ESR, CRP, CK) - obtain thyroid levels - discontinue lamictal 25mg BID, CTM neuro symptoms - alternating eye patch q4h - continue meclizine 25mg TID PRN Eva Kapoor [facility] Medical Student 03/25/23 Associated attestation - Darinel Flores MD - 03/27/2023 9:58 AM EDT Neurology Attending Attestation I have reviewed and agree with NINA Smytha's note which was written for educational purposes. Please refer to the resident note for clinical care documentation. * Caron Conde MD - 03/25/2023 8:31 AM EDT Neurology Consult Note - 03/25/2023 Admit date: 03/18/2023 Attending: Iram Borrero MD ID: Leandra Wilks is a 43 y.o. female??with medical history significant for morbid obesity, GERD, CHUN, IBS, depression and laparoscopic renato en y gastric bypass on 01/10/23 who has struggled with dysphagia and abdominal pain since surgery who presents 03/18/23 with continued dysphagia, nausea/vomiting and abdominal pain. Neurology consulted for evaluation of dizziness, diplopia that developed after admission. Interval Hx: ?? Continues to endorse dizziness. ?? Using eye patch for diplopia. ?? Continues on Lamictal 25mg BID. Physical Exam: General: Appears stated age, WDWN, mild discomfort HEENT: NC/AT, MMM Pulm: Normal respiratory effort Neuro: MS: Appears tired but responding appropriately. Language: Fluent, no dysarthria or paraphasic errors, repetition intact CN: CN II, III, IV, - PERRLA, dysconjugate gaze at rest, EOMI provokes worsened double vision with right lateral gaze. No ptosis. CN V - Facial sensation intact/symmetric CN VII - No facial asymmetry CN VIII - Hearing intact to voice/finger rub CN IX, X - Not tested CN XI - SCM, trap strength symmetric CN XII - Tongue midline Motor: No focal atrophy, normal tone throughout Fine motor movements preserved, no bradykinesia Strength: Roots Muscles Action Right Left C5-6 Brachialis / Biceps brachii Elbow flexion 5 5 C6-8 Triceps brachii Elbow extension 5 5 C7-T1 Flexor digitorum profundus Digit II-V flexion / lamp shades supervisor 5 5 L2-3 Iliopsoas Hip flexion 5 5 L3-4 Quadriceps femoris Knee extension 5 5 L4-5 Tibialis anterior Ankle dorsiflexion/inversion 5 5 L5-S2 Triceps surae Ankle plantarflexion 5 5 Sensory: Intact to light touch throughout Reflexes: Arc Right Left Comments Biceps tendon C5-C6 2+ 2+ Brachioradialis tendon C5-C6 2+ 2+ Patellar ligament L3-L4 1+ 1+ Achilles tendon S1-S2 1+ 1+ Coordination: FNF intact, no dysmetria or tremor noted SHAYE, finger tapping smooth and symmetric Gait: Not performed. Labs: Last wbc, hgb, hct plt Recent Labs 03/25/23 0331 WBC 8.4 HGB 10.8* HCT 32.8* Last Ca, Mg, Phos Recent Labs 03/25/23 0331 CALCIUM 8.8 PHOS 3.4 MAGNESIUM 0.67* Diagnostic Tests and Imaging: Results for orders placed or performed during the hospital encounter of 03/18/23 XR Fluoro Barium Swallow (Double Contrast) (Exam End: 03/19/2023 1:22 PM) Impression 1. Exam limited because only 2 swallows were completed. 2. No obstruction or intestinal dilatation and normal appearance of fundal pouch. Contrast passes rapidly through the gastrojejunal anastomosis into small bowel segments. 3. Small sliding hiatal hernia. Thank you for letting us participate in the care of this patient. If you are a health care provider and have any questions regarding this report, please contact the number below. For patients who have questions please contact the health direct care staffer that requested your imaging first. Electronically signed by: Poppy Webster MD, [facility] ([phone]), at 03/19/2023 1:29 PM MRI Cholangiopancreatography WO Contrast (Exam End: 03/19/2023 5:40 PM) Impression Beaded-strictured appearance of the intrahepatic biliary ducts extending into the most cranial aspect of the common hepatic duct. Differential diagnosis would include primary sclerosing cholangitis (PSC) (most commonly), ischemic cholangiopathy, HIV-associated cholangitis, chemotherapy-induced cholangitis, IgG4 disease, amongst others. Thank you for letting us participate in the care of this patient. If you are a health care provider and have any questions regarding this report, please contact the number below. For patients who have questions please contact the health direct care staffer that requested your imaging first. Electronically signed by: Maximo Forrest DO, [facility] ([phone]), at 03/20/2023 7:[address] Head wo Contrast (Generic) (Exam End: 03/21/2023 12:34 PM) Impression Normal brain CT. Thank you for letting us participate in the care of this patient. If you are a health care provider and have any questions regarding this report, please contact the number below. For patients who have questions please contact the health direct care staffer that requested your imaging first. Electronically signed by: Erlin Castorena DO, [facility] ([phone]), at 03/21/2023 12:49 PM MRI Orbit wwo Contrast (Exam End: 03/24/2023 11:16 AM) Impression 1. Normal brain. 2. Normal orbits. Thank you for letting us participate in the care of this patient. If you are a health care provider and have any questions regarding this report, please contact the number below. For patients who have questions please contact the health direct care staffer that requested your imaging first. Electronically signed by: Lorie Coe MD, [facility] ([phone]), at 03/24/2023 12:20 PM MRI Brain wwo Contrast (Generic) (Exam End: 03/24/2023 11:16 AM) Impression 1. Normal brain. 2. Normal orbits. Thank you for letting us participate in the care of this patient. If you are a health care provider and have any questions regarding this report, please contact the number below. For patients who have questions please contact the health direct care staffer that requested your imaging first. Electronically signed by: Lorie Coe MD, [facility] ([phone]), at 03/24/2023 12:20 PM Orthostatics blood pressure measurements: Lying 102/61 (75), Sitting 116/78 (91), Standing 102/77 (85) Assessment: This is Leandra Wilks, a 43-year-old woman with n/v dysphagia following gastric bypass surgery, neurology was consulted for vertigo, diplopia that has not resolved. Agree with psych that restarting Lamictal at prior dose may be contributing to symptoms. May want to consider discontinuing until symptoms improve. Would also recommend checking inflammatory markers and TSH. However, unremarkable MRIbrain, orbits is reassuring against structural pathology, although small lesion to CN may not be visualized. Neurology will continue to follow for evidence of improvement. Recommendations: ?? Vestibular PT. ?? Check TSH, CRP, ESR. ?? Consider holding Lamictal to see if symptoms resolve. ?? Continue high-dose thiamine. Neurology Consult #[id number] Caron Conde MD Neurology Resident PGY3 03/25/2023 Associated attestation - Darinel Flores MD - 03/27/2023 10:00 AM EDT Neurology Attending Note Darinel Flores MD PhD (pager [phone]) I have seen and examined Leandra Wilks on March 25, [address] Caron Conde MD, whose note contains our history, exam, data/imaging review and assessment and recommendations. * Dick Bower MD - 03/25/2023 7:02 AM EDT Minimally Invasive Surgery Inpatient Progress Note ID: Leandra Wilks is a 43 y.o. female with medical history significant for morbid obesity, GERD,CHUN, IBS, depression and laparoscopic renato en y gastric bypass on 01/10/23 who has struggled with dysphagia and abdominal pain since surgery who presents 03/18/23 with continued dysphagia, nausea/vomiting and abdominal pain. Subjective / 24h: - Nausea mildly improved, 20cc po intake / 24h - States abdominal pain unchanged (05/27) - Dizziness largely unchanged, slight improvement in double vision with eye patch alternating - Taking po medications Objective: Last value Range last 24hrs Temperature Temp: 37.2 ??C (99 ??F) Temp: [36.8 ??C (98.2 ??F)-37.2 ??C (99 ??F)] Heart Rate Heart Rate: 72 Heart Rate: [72] Blood Pressure BP: 127/85 BP: (101-132)/(67-85) Respiratory Rate Resp: 18 Resp: [16-18] SpO2 SpO2: 97 % SpO2: [96 %-99 %] 03/24 0701 - 03/25 0700 In: 2283 [P.O.:20; I.V.:2263] Out: 250 [Urine:200] PE: General: Alert, no acute distress Head: Atraumatic, non cyanotic Cardiac: Regular rate & rhythm Pulmonary: Normal respiratory effort on RA Abdominal: Soft, non distended, not reactive to abdominal exam, dermabond intact over incisions which are well appearing, no erythema, no drainage, no induration Neuro: Grossly intact, follows commands Extremities: Warm and well-perfused Labs: Recent Labs 03/25/2333003/24/23 0351 03/23/23 0807 03/23/23 0339 WBC 8.4 6.8 9.0 7.5 HGB 10.8* 10.5* 10.2* 10.5* HCT 32.8* 31.5* 30.2* 31.8* PLATELET 291 268 268 263 Recent Labs 03/25/2333003/24/23 0551 03/24/2335003/23/23338 NA 138 -- 141 139 K 3.4* 3.4* Not Perf 4.3 CL 100 -- 104 103 CO2 22 -- 29 27 BUN 3* -- 5* 6* CREATININE 0.61* -- 0.65* 0.61* GLUCOSE 94 -- 81 111 CALCIUM 8.8 -- 8.3* 8.8 MAGNESIUM 0.67* -- 0.75 0.80 PHOS 3.4 -- 3.1 3.4 Microbiology: N/A Imaging/Studies: XR Fluoro Barium Swallow 03/19/23: IMPRESSION 1. Exam limited because only 2 swallows were completed. 2. No obstruction or intestinal dilatation and normal appearance of fundal pouch. Contrast passes rapidly through the gastrojejunal anastomosis into small bowel segments. 3. Small sliding hiatal hernia. MRCP 03/19/23: beaded-strictured appearance of the intrahepatic biliary ducts extending into the mostcranial aspect of the common hepatic duct. EGD 03/20/23: normal esophagus, healthy appearing gastrojejunostomy anastomosis, normal examined jejunum A/P: Leandra Wilks is a 43 y.o. female with medical history significant for morbid obesity, GERD, CHUN, IBS, depression and laparoscopic renato en y gastric bypass on 01/10/23 who has struggled with dysphagia and abdominal pain since surgery who presents 03/18/23 with continued dysphagia, nausea/vomiting and abdominal pain and failure to thrive. Patient has undergone extensive work up thus far which has been unrevealing as etiology of symptomology. 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 Her vitals have remained normal. Overall, unclear etiology of symptoms. From a surgical standpoint, we have largely exhausted available diagnostic modalities and have not identified any anatomic or physiologic gastrointestinal causes for patient's presentation. Sincerely appreciate psychiatry and neurology recommendations. NEURO: Pain control with scheduled tylenol, prn home flexeril. No narcotics. Appreciate neurology consults. Trial meclizine, MRI brain/orbit w/o acute findings. PSYCH: Appreciate Psych / BIT consults.Continue home fluoxetine & lamotrigine (adjusted to 25mcg qd). Monitor for emergence of rash. Increased to BID in two weeks (04/04). IV thiamine daily PULM: IS, OOB. Duonebs prn CV: No acute concerns GI: advanced to soft diet. IV PPI, scheduled sucralfate. Multimodal nausea control. Will need outpatient hepatology follow up. Trend LFTs FEN: Voiding spontaneously, monitor I/Os. Continue mIVF until increased po intake HEME: No signs of bleeding ENDO: Normal BG, monitor daily BMP ID: No abx indicated PPx: Enoxaparin, SCDs DISPO: Floor status. PT/OT consults CODE: Attempt Cardiopulmonary Resuscitation - Inpatient Dick Bower MD 03/25/2023 Minimally Invasive Surgery [id number] Associated attestation - Iram Borrero MD - 03/25/2023 10:10 AM EDT I have seen and examined the patient, providing macias components as outlined below. I have reviewed the resident???s above note; my evaluation of the patient is below: Leandra seems to be doing a bit better today. She says her abdominal pain and nausea are improved. She ate her whole oatmeal bowel this morning and had about half of her juice. Her work up for nauseaand abdominal pain following gastric bypass have been largely unremarkable. Diagnostic laparoscopy on Saturday was normal. I do not have an explanation from a surgical standpoint for her symptoms. She now has double vision and dizziness which seem to be new this hospitalization. Her head imagingappears normal. I appreciate Neurology and Psychiatry for evaluating her and providing recommendations. Regarding her bypass, I do not think now is a good time to consider reversal or a feeding tube. I do not have a mechanical reason or physiologic for why she cannot eat. Her eating behaviors overall are inconsistent and I think need to be explored before we consider such an invasive measure such as reversal. I am also unsure that reversal will help with her symptoms. She needs PT/OT evaluations because she is not getting out of bed. Once we have final recs from Psychiatry and Neurology, will start discharge planning. Iram Borrero MD * Candelaria Fish RN - 03/25/2023 5:10 AM EDT OUTCOME EVALUATION NOTE: OUTCOME SUMMARY: Patient A&Ox4, VSS on RA. Denies CP, SOB. Pain controlled w/ scheduled and PRN medications, seeMAR. Intermittent dizziness. Diet advanced to dysphagia soft. Abdominal lap sites ELLEN. Patient voiding to BSC w/ SBA FWW. LBM /. Patient alternating eye patch q2-4. Brain MRI- normal. Patient resting in between care. Will continue to monitor. PLAN MOVING FORWARD: ?? Switch eye patch q-4 Pain control Mobilize D/c planning ?? INDIVIDUALIZED FALL PREVENTION INTERVENTIONS: ?? Patient-specific fall risk factors per assessment: [current deficits]: Lines/drains, dizziness, double vision, pain, medications, hospital environment ?? Assistance [level of assistance required for transfers and ambulation]: SBA w/ FWW ?? Supervision [direct monitoring required during toileting and ADLs]: Eyes on ?? Surveillance [continuous indirect monitoring]: Masimo, bed alarm, purposeful rounding ?? Patient-specific fall prevention interventions for sensory deficits provided, if applicable: [X] N/A CPG GOAL OUTCOME EVALUATION: * Janis Conner RN - 03/24/2023 3:08 PM EDT OUTCOME EVALUATION NOTE: OUTCOME SUMMARY: Patient A&Ox4, VSS on RA. Denies CP, SOB. Pain controlled w/ scheduled and PRN medications, seeMAR. Intermittent dizziness. Diet advanced to dysphagia soft - x1 small episode emesis a few hours after eating. Abdominal lap sites ELLEN. Patient voiding to BSC w/ SBA FWW. LBM 03/24. Patient alternating eye patch q2-4. Brain MRI obtained this shift. Patient resting in between care. Will continue to monitor. PLAN MOVING FORWARD: ?? Switch eye patch q-4 Pain control Mobilize D/c planning ?? INDIVIDUALIZED FALL PREVENTION INTERVENTIONS: ?? Patient-specific fall risk factors per assessment: [current deficits]: Lines/drains, dizziness, double vision, pain, medications, hospital environment ?? Assistance [level of assistance required for transfers and ambulation]: SBA w/ FWW ?? Supervision [direct monitoring required during toileting and ADLs]: Eyes on ?? Surveillance [continuous indirect monitoring]: Masimo, bed alarm, purposeful rounding ?? Patient-specific fall prevention interventions for sensory deficits provided, if applicable: [X] N/A CPG GOAL OUTCOME EVALUATION: * Natalee Winn MD - 03/24/2023 9:02 AM EDT Minimally Invasive Surgery Inpatient Progress Note ID: Leandra Wilks is a 43 y.o. female with medical history significant for morbid obesity, GERD,CHUN, IBS, depression and laparoscopic renato en y gastric bypass on 01/10/23 who has struggled with dysphagia and abdominal pain since surgery who presents 03/18/23 with continued dysphagia, nausea/vomiting and abdominal pain. Subjective / 24h: - Eye patch placed, alternating eye very few hours, patient reports improvement in double vision - No acute overnight events - states abdominal pain (03/27), nausea, dizziness remains about the same - 200cc po intake, took majority of her oral medications, water and tray at bedside Objective: Last value Range last 24hrs Temperature Temp: 36.8 ??C (98.2 ??F) Temp: [36.6 ??C (97.9 ??F)-37 ??C (98.6 ??F)] Heart Rate Heart Rate: 73 Heart Rate: -- Blood Pressure BP: 132/77 BP: (101-133)/(59-81) Respiratory Rate Resp: 16 Resp: [16-18] SpO2 SpO2: 96 % SpO2: [95 %-100 %] 03/23 701 - 03/24 700 In: 2036 [P.O.:200; I.V.:1719] Out: 400 [Urine:400] PE: General: Alert, no acute distress Head: Atraumatic, non cyanotic Cardiac: Regular rate & rhythm Pulmonary: Normal respiratory effort on RA Abdominal: Soft, non distended, not reactive to abdominal exam, dermabond intact over incisions which are well appearing, no erythema, no drainage, no induration Neuro: Grossly intact, follows commands Extremities: Warm and well-perfused Labs: Recent Labs 03/24/23 0351 03/23/23 0807 03/23/2333803/22/23416 WBC 6.8 9.0 7.5 8.0 HGB 10.5* 10.2* 10.5* 12.6 HCT 31.5* 30.2* 31.8* 37.3 PLATELET 268 268 263 384* Recent Labs 03/24/23 0551 03/24/23 0351 03/23/2333803/22/23416 NA -- 141 139 140 K 3.4* Not Perf 4.3 3.4* CL -- 104 103 98 CO2 -- 29 27 32* BUN -- 5* 6* 7* CREATININE -- 0.65* 0.61* 0.69* GLUCOSE -- 81 111 101 CALCIUM -- 8.3* 8.8 9.0 MAGNESIUM -- 0.75 0.80 0.94 PHOS -- 3.1 3.4 3.1 Microbiology: N/A Imaging/Studies: XR Fluoro Barium Swallow 03/19/23: IMPRESSION 1. Exam limited because only 2 swallows were completed. 2. No obstruction or intestinal dilatation and normal appearance of fundal pouch. Contrast passes rapidly through the gastrojejunal anastomosis into small bowel segments. 3. Small sliding hiatal hernia. MRCP 03/19/23: beaded-strictured appearance of the intrahepatic biliary ducts extending into the mostcranial aspect of the common hepatic duct. EGD 03/20/23: normal esophagus, healthy appearing gastrojejunostomy anastomosis, normal examined jejunum A/P: Leandra Wilks is a 43 y.o. female with medical history significant for morbid obesity, GERD, CHUN, IBS, depression and laparoscopic renato en y gastric bypass on 01/10/23 who has struggled with dysphagia and abdominal pain since surgery who presents 03/18/23 with continued dysphagia, nausea/vomiting and abdominal pain and failure to thrive. Patient has undergone extensive work up thus far which has been unrevealing as etiology of symptomology. CTAP 01/17/2023, 02/11/2023, 02/27/2023, 03/13/2023, 03/18/2023 - no acute findings EGD 03/05/2023 with dilation - treatment of small ulcer, unfortunately, without change in symptoms UGI swallow 03/19/2023 - no obstruction MRCP 03/19/2023 - intrahepatic ductal stricturing, possible PSC, per GI unlikely to be causing symptoms, recommend outpatient follow up with hepatology EGD 03/20/2023 - (GI consult) no acute findings CT head 03/21/2023 - no acute findings Diagnostic laparoscopy - no acute findings During hospitalization, patients symptoms have continued and evolved with persistent dizziness and vision changes. Her vitals have remained normal. Hgb stable on recheck this AM. Likely dilutional. Overall, unclear etiology of symptoms. From a surgical standpoint, we have largely exhausted available diagnostic modalities and have not identified any anatomic or physiologic gastrointestinal causes for patient's presentation. Sincerely appreciate psychiatry and neurology recommendations. NEURO: Pain control with scheduled tylenol, prn home flexeril. No narcotics. Appreciate neurology consults. Trial meclizine, MRI brain/orbits ordered. PSYCH: Appreciate Psych / BIT consults.Continue home fluoxetine & lamotrigine (adjusted to 25mcg qd). Monitor for emergence of rash. Increased to BID in two weeks (04/04). IV thiamine daily PULM: IS, OOB. Duonebs prn CV: No acute concerns GI: advanced to soft diet. IV PPI, scheduled sucralfate. Multimodal nausea control. Will need outpatient hepatology follow up. Trend LFTs FEN: Voiding spontaneously, monitor I/Os. Continue mIVF while NPO HEME: no signs of bleeding ENDO: Normal BG, monitor daily BMP ID: No abx indicated PPx: Enoxaparin, SCDs DISPO: Floor status. PT/OT consults CODE: Attempt Cardiopulmonary Resuscitation - Inpatient Discussed with attending Natalee Winn MD 03/24/2023 Minimally Invasive Surgery [id number] * Candelaria Fish RN - 03/24/2023 4:29 AM EDT OUTCOME EVALUATION NOTE: OUTCOME SUMMARY: Patient A&Ox4, VSS on RA. Denies nausea/vomiting, CP, SOB. Pain controlled w/ scheduled and PRNmedications, see MAR. 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 Patient voiding to BSC w/ SBA FWW. LBM 03/19. Patient continues to report dizziness & double vision. Eye patch in place, switching eyes q2-4, independently switches eyes. Patient resting in between care. Will continue to monitor. PLAN MOVING FORWARD: Switch eye patch q-4 Pain control Mobilize D/c planning INDIVIDUALIZED FALL PREVENTION INTERVENTIONS: Patient-specific fall risk factors per assessment: [current deficits]: Lines/drains, dizziness, double vision, pain, medications, hospital environment Assistance [level of assistance required for transfers and ambulation]: SBA w/ FWW Supervision [direct monitoring required during toileting and ADLs]: Eyes on Surveillance [continuous indirect monitoring]: Masimo, bed alarm, purposeful rounding Patient-specific fall prevention interventions for sensory deficits provided, if applicable: [X] N/A CPG GOAL OUTCOME EVALUATION: * Janis Conner RN - 03/23/2023 5:07 PM EDT OUTCOME EVALUATION NOTE: OUTCOME SUMMARY: Patient A&Ox4, VSS on RA. Denies nausea/vomiting, CP, SOB. Pain controlled w/ scheduled and PRNmedications, see MAR. 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 Patient voiding to BSC w/ SBA FWW. LBM 03/19. Patient continues to report dizziness & double vision. Eye patch obtained and placed on patient per neurology orders. Switch eyes q2-4, patient educated on frequency to alternate patch & independently switches eyes. Patient resting in between care. Will continue to monitor. PLAN MOVING FORWARD: Switch eye patch q-4 Pain control Mobilize D/c planning INDIVIDUALIZED FALL PREVENTION INTERVENTIONS: Patient-specific fall risk factors per assessment: [current deficits]: Lines/drains, dizziness, double vision, pain, medications, hospital environment Assistance [level of assistance required for transfers and ambulation]: SBA w/ FWW Supervision [direct monitoring required during toileting and ADLs]: Eyes on Surveillance [continuous indirect monitoring]: Masimo, bed alarm, purposeful rounding Patient-specific fall prevention interventions for sensory deficits provided, if applicable: [X] N/A CPG GOAL OUTCOME EVALUATION: * Natalee Winn MD - 03/23/2023 6:48 AM EDT Minimally Invasive Surgery Inpatient Progress Note ID: Leandra Wilks is a 43 y.o. female with medical history significant for morbid obesity, GERD,CHUN, IBS, depression and laparoscopic renato en y gastric bypass on 01/10/23 who has struggled with dysphagia and abdominal pain since surgery who presents 03/18/23 with continued dysphagia, nausea/vomiting and abdominal pain. Subjective / 24h: - Normal findings on diagnostic laparoscopy - meclizine started per neurology recs as patient was previously on scopolamine patch with worsenedsymptoms of dizziness - No acute overnight events - no nausea or pain on POC but this AM continues to have baseline nausea/dizziness/adbominal pain/double vision - 20cc po intake since surgery Objective: Last value Range last 24hrs Temperature Temp: 36.8 ??C (98.2 ??F) Temp: [36 ??C (96.8 ??F)-37 ??C (98.6 ??F)] Heart Rate Heart Rate: 73 Heart Rate: [61-73] Blood Pressure BP: 128/73 BP: (102-139)/(61-82) Respiratory Rate Resp: 16 Resp: [11-18] SpO2 SpO2: 96 % SpO2: [94 %-100 %] 03/22 07 - 03/23 07 In: 2218 [P.O.:20; I.V.:2188] Out: 1875 [Urine:1874] PE: General: Alert, no acute distress Head: Atraumatic, non cyanotic Cardiac: Regular rate & rhythm Pulmonary: Normal respiratory effort on RA Abdominal: Soft, non distended, minimally TTP without peritoneal signs, dermabond intact over incisions which are well appearing, no erythema, no drainage, no induration Neuro: Grossly intact, follows commands Extremities: Warm and well-perfused Labs: Recent Labs 03/23/23 0339 03/22/23 0417 03/21/23 0346 WBC 7.5 8.0 8.2 HGB 10.5* 12.6 13.3 HCT 31.8* 37.3 37.6 PLATELET 263 384* 322 Recent Labs 03/23/23 0339 03/22/23 0417 03/21/23 0346 NA 139 140 135 K 4.3 3.4* 3.8 CL 103 98 98 CO2 27 32* 27 BUN 6* 7* 6* CREATININE 0.61* 0.69* 0.54* GLUCOSE 111 101 105 CALCIUM 8.8 9.0 8.4* MAGNESIUM 0.80 0.94 0.81 PHOS 3.4 3.1 3.0 Microbiology: N/A Imaging/Studies: XR Fluoro Barium Swallow 03/19/23: IMPRESSION 1. Exam limited because only 2 swallows were completed. 2. No obstruction or intestinal dilatation and normal appearance of fundal pouch. Contrast passes rapidly through the gastrojejunal anastomosis into small bowel segments. 3. Small sliding hiatal hernia. MRCP 03/19/23: beaded-strictured appearance of the intrahepatic biliary ducts extending into the mostcranial aspect of the common hepatic duct. EGD 03/20/23: normal esophagus, healthy appearing gastrojejunostomy anastomosis, normal examined jejunum A/P: Leandra Wilks is a 43 y.o. female with medical history significant for morbid obesity, GERD, CHUN, IBS, depression and laparoscopic renato en y gastric bypass on 01/10/23 who has struggled with dysphagia and abdominal pain since surgery who presents 03/18/23 with continued dysphagia, nausea/vomiting and abdominal pain and failure to thrive. Patient has undergone extensive work up thus far which has been unrevealing as etiology of symptomology. CTAP 01/17/2023, 02/11/2023, 02/27/2023, 03/13/2023, 03/18/2023 - no acute findings EGD 03/05/2023 with dilation - treatment of small ulcer, unfortunately, without change in symptoms UGI swallow 03/19/2023 - no obstruction MRCP 03/19/2023 - intrahepatic ductal stricturing, possible PSC, per GI unlikely to be causing symptoms, recommend outpatient follow up with hepatology EGD 03/20/2023 - (GI consult) no acute findings CT head 03/21/2023 - no acute findings Diagnostic laparoscopy - no acute findings During hospitalization, patients symptoms have continued and evolved with persistent dizziness and vision changes. Her vitals have remained normal. Hgb stable on recheck this AM. Likely dilutional. Overall, unclear etiology of symptoms. From a surgical standpoint, we have largely exhausted available diagnostic modalities and have not identified any anatomic or physiologic gastrointestinal causes for patient's presentation. Sincerely appreciate psychiatry and neurology recommendations. NEURO: Pain control with scheduled tylenol, prn home flexeril. No narcotics. Appreciate neurology consults. Trial meclizine, MRI brain ordered. PSYCH: Appreciate Psych / BIT consults.Continue home fluoxetine & lamotrigine (adjusted to 25mcg qd). Monitor for emergence of rash. Increased to BID in two weeks (04/04). IV thiamine daily PULM: IS, OOB. Duonebs prn CV: No acute concerns GI: Stage II bariatric diet. IV PPI, scheduled sucralfate. Multimodal nausea control. Will need outpatient hepatology follow up. Trend LFTs FEN: Voiding spontaneously, monitor I/Os. Continue mIVF while NPO HEME: no signs of bleeding ENDO: Normal BG, monitor daily BMP ID: No abx indicated PPx: Enoxaparin, SCDs DISPO: Floor status. PT/OT consults CODE: Attempt Cardiopulmonary Resuscitation - Inpatient Discussed with attending Natalee Winn MD 03/23/2023 Minimally Invasive Surgery [id number] * Srikanth Brown MD - 03/23/2023 1:41 AM EDT Post-Operative Check Leandra Wilks is a 43 y.o. female s/p Procedure(s): LAPAROSCOPY, DIAGNOSTIC, ABDOMEN (WRVU 5.14) @LYSIS OF ADHESIONS, ABD. (WRVU 18.46) S: No nausea/vomiting, chest pain, SOB, pain well controlled, endorsing double vision. O: Temp: [36 ??C (96.8 ??F)-36.7 ??C (98.1 ??F)] Heart Rate: [61-73] Resp: [11-16] BP: (104-139)/(65-82) SpO2: [97 %-100 %] Heart Rate from SpO2: [60 bpm-79 bpm] I/O last 3 completed shifts: In: 3478 [P.O.:240; I.V.:3238] Out: 2525 [Urine:2525] I/O this shift: In: 680 [P.O.:20; I.V.:650; IV Piggyback:10] Out: 1 [Blood:1] Recent Results (from the past 24 hour(s)) Magnesium Result Value Ref Range Magnesium 0.94 0.69 - 1.07 mmol/L Phosphorus Result Value Ref Range Phosphorus 3.1 2.5 - 4.5 mg/dL Comprehensive metabolic panel (non-fasting) Result Value Ref Range Glucose Lvl 101 65 - 199 mg/dL BUN 7 (L) 8 - 18 mg/dL Creatinine 0.69 (L) 0.70 - 1.20 mg/dL Sodium 140 135 - 145 mmol/L Potassium 3.4 (L) 3.5 - 5.0 mmol/L Chloride 98 98 - 107 mmol/L CO2 32 (H) 22 - 31 mmol/L Anion Gap 10 5 - 15 mmol/L Calcium 9.0 8.5 - 10.5 mg/dL Total Protein 6.2 6.1 - 8.0 g/dL Albumin 3.8 3.2 - 5.2 g/dL AST 30 0 - 30 unit/L ALT 37 (H) 0 - 30 unit/L Alk Phos 118 (H) 35 - 105 unit/L Total Bilirubin 0.9 0.2 - 1.3 mg/dL Estimated GFR 109 >=60 mL/min/1.73 m?? Hemogram Result Value Ref Range WBC 8.0 4.0 - 9.5 x10(3)/mcL RBC 4.41 4.00 - 5.21 x10(6)/mcL Hemoglobin 12.6 11.7 - 15.5 g/dL Hematocrit 37.3 35.7 - 45.8 % MCV 84.6 82.6 - 94.4 fL MCH 28.6 27.1 - 32.0 pg MCHC 33.8 31.7 - 35.0 g/dL Platelets 384 (H) 145 - 357 x10(3)/mcL RDWSD 44.9 37.0 - 46.0 fL RDWCV 14.6 (H) 11.5 - 14.1 % MPV 9.5 7.6 - 12.9 fL nRBC % Auto 0.0 % nRBC Abs Auto 0.000 0.000 - 0.000 x10(3)/mcL Differential, Automated Result Value Ref Range Neutrophils % 50.0 % Neutr Abs (ANC) 4.00 1.70 - 6.10 x10(3)/mcL Lymphocytes % 42.9 % Lymphocytes Abs 3.4 (H) 0.9 - 3.2 x10(3)/mcL Monocytes % 5.1 % Monocyte Abs 0.4 0.3 - 0.9 x10(3)/mcL Eosinophils % 1.2 % Eosinophils Abs 0.1 0.0 - 0.4 x10(3)/mcL Basophils % 0.2 % Basophils Abs 0.0 0.0 - 0.1 x10(3)/mcL Immature Gran % 0.60 % Reshma Gran Abs 0.05 (H) 0.00 - 0.04 x10(3)/mcL POCT Glucose Result Value Ref Range POC Glucose 90 65 - 199 mg/dL POCT Glucose Result Value Ref Range POC Glucose 85 65 - 199 mg/dL Physical Exam Gen: A0x3, NAD, resting comfortably CVS: RRR, no murmurs/rubs/gallops Resp: CTAB, breathing comfortably on RA Abd: soft, appropriately tender, nondistended; incisions are c/d/i covered with dermabond. Ext: SCDs in place, WWP AP Leandra Wilks is a 43 y.o. female s/p diagnostic lap currently in stable condition and recovering well - Gastric Bypass diet Stage II-Full - Pain well controlled - Meclizine - MRI brain in the AM - DTV - Hemodynamically stable - Continue post operative plan per primary team Srikanth Brown MD 03/23/2023 * Candelaria Fish RN - 03/22/2023 11:40 PM EDT Pt arrived back to room from PACU. A&O x4. Pt denies pain at this time but does report on goingdizziness. Lap sites dermabounded JUNIOR BUYER. LR @ 100. VSS on RA. Denies N/V, SOB, Headache. Pt oriented to room and call light. Call light within reach. * Rose Breen RN - 03/22/2023 9:37 PM EDT 2025: Leandra Wilks arrives from OR 26 on bed to PACU 22. Placed patient on monitor with parameters adjusted to be appropriate for patient with alarms on and active. Anesthesia remained at bedside monitoring and in charge of care until PACU staff became available. 2124: Bedside handoff report received from Dr. Coker with Anesthesia. Patient appears to be resting comfortably with eyes closed. 2229: Patient meets PACU discharge criteria. 2300: Verbal report called to 3D nurseCandelaria. Plans for transport per protocol with patient returning to previous room, 318B. * Maria L Crawford, PT - 03/22/2023 3:46 PM EDT 03/22/23 1544 Evaluation & Treatment Document Type contact Total Minutes, Physical Therapy 0 Treatment Date 03/22/23 Comment, Session Not Performed Attempted to see pt 2x. Pt having a discussion with MD. Returned andpt was sleeping soundly. She has mobilizes with nursing and OT. Will f/u early next week.Thank you. * Dick Bower MD - 03/22/2023 12:20 PM EDT Minimally Invasive Surgery Inpatient Progress Note ID: Leandra Wilks is a 43 y.o. female with medical history significant for morbid obesity, GERD,CHUN, IBS, depression and laparoscopic renato en y gastric bypass on 01/10/23 who has struggled with dysphagia and abdominal pain since surgery who presents 03/18/23 with continued dysphagia, nausea/vomiting and abdominal pain. Subjective / 24h: - No acute overnight events - 240cc po intake yesterday, unchanged nausea / abdominal pain - Psychiatry consulted, appreciate recs - NPO for diagnostic laparoscopy Objective: Last value Range last 24hrs Temperature Temp: 36.9 ??C (98.4 ??F) Temp: [36.4 ??C (97.5 ??F)-37 ??C (98.6 ??F)] Heart Rate Heart Rate: 92 Heart Rate: -- Blood Pressure BP: 105/68 BP: (105-146)/(67-98) Respiratory Rate Resp: 18 Resp: [14-18] SpO2 SpO2: 98 % SpO2: [94 %-100 %] 03/21 0701 - 03/22 0700 In: 1940 [P.O.:240; I.V.:1700] Out: 1450 [Urine:1450] PE: General: Alert, no acute distress Head: Atraumatic, non cyanotic Cardiac: Regular rate & rhythm Pulmonary: Normal respiratory effort on RA Abdominal: Soft, non distended, minimally TTP without peritoneal signs Neuro: Grossly intact, follows commands Extremities: Warm and well-perfused Labs: Recent Labs 03/22/23 0417 03/21/23 0346 03/20/23 0232 WBC 8.0 8.2 5.4 HGB 12.6 13.3 12.1 HCT 37.3 37.6 35.0* PLATELET 384* 322 319 Recent Labs 03/22/23 0417 03/21/23 0346 03/20/23 0232 03/19/23 1532 NA 140 135 134* 135 K 3.4* 3.8 4.1 4.1 CL 98 98 97* 97* CO2 32* 27 26 26 BUN 7* 6* 4* 5* CREATININE 0.69* 0.54* 0.42* 0.40* GLUCOSE 101 105 122 100 CALCIUM 9.0 8.4* 8.1* 8.6 MAGNESIUM 0.94 0.81 0.83 0.63* PHOS 3.1 3.0 3.6 2.3* Microbiology: N/A Imaging/Studies: XR Fluoro Barium Swallow 03/19/23: IMPRESSION 1. Exam limited because only 2 swallows were completed. 2. No obstruction or intestinal dilatation and normal appearance of fundal pouch. Contrast passes rapidly through the gastrojejunal anastomosis into small bowel segments. 3. Small sliding hiatal hernia. MRCP 03/19/23: beaded-strictured appearance of the intrahepatic biliary ducts extending into the mostcranial aspect of the common hepatic duct. EGD 03/20/23: normal esophagus, healthy appearing gastrojejunostomy anastomosis, normal examined jejunum A/P: Leandra Wilks is a 43 y.o. female with medical history significant for morbid obesity, GERD, CHUN, IBS, depression and laparoscopic renato en y gastric bypass on 01/10/23 who has struggled with dysphagia and abdominal pain since surgery who presents 03/18/23 with continued dysphagia, nausea/vomiting and abdominal pain and failure to thrive. UGI study without evidence of dilation, contrast progressed rapidly through GJ, no sign of obstruction. Small sliding hiatal hernia present. GI performed EGD which demonstrated normal esophagus, healthy appearing gastrojejunostomy anastomosis, normal jejunum. MRCP demonstrates beaded-strictured appearance of intrahepatic biliary ducts; GI recommending OP follow-up. Work-up has not identified a source of her symptoms. Psychiatry/BIT teams consulted, appreciate input. Home Lamictal adjusted, recommended labs including B12 / folate ordered. NPO for diagnostic laparoscopy today. NEURO: Pain control with scheduled tylenol, prn home flexeril. Continue home fluoxetine & lamotrigine (adjusted to 25mcg qd). Appreciate Psych / BIT consults. No narcotics. IV thiamine daily PULM: IS, OOB. Duonebs prn CV: No acute concerns GI: NPO pending diagnostic laparoscopy. IV PPI, scheduled sucralfate. Scopolamine patch, prn zofran. Appreciate GI involvement, recs pending. Trend LFTs FEN: Voiding spontaneously, monitor I/Os. Continue mIVF while NPO ENDO: Normal BG, monitor daily BMP ID: No abx indicated PPx: Enoxaparin, SCDs DISPO: Floor status. PT/OT consults CODE: Attempt Cardiopulmonary Resuscitation - Inpatient Dick Bower MD 03/22/2023 Minimally Invasive Surgery [id number] Associated attestation - Iram Borrero MD - 03/22/2023 2:28 PM EDT I have seen and examined the patient, providing macias components as outlined below. I have reviewed the resident???s above note; my evaluation of the patient is below: Leandra continues to complain of dizziness. Will obtain orthostatics and consult Neurology if symptoms persist. Appreciate Psychiatry recommendations. Will proceed with diagnostic laparoscopy today to further evaluate bypass anatomy. Iram Borrero MD * Pito Baltazar, OT - 03/22/2023 9:35 AM EDT Occupational Therapy Treatment Note Treatment Number OT: 3 ?? Patient profile: Per MD: Leandrachapincito Sandovaltt??is a 43 y.o.??female??with medical history significant for morbid obesity, GERD, CHUN, IBS, depression and laparoscopic renato en y gastric bypass on 01/10/23 who has struggled with dysphagia and abdominal pain since surgery who presents 03/18/23 with continued d ysphagia, nausea/vomiting and abdominal pain. ?? Past Medical History No past medical history on file. Past Surgical History Past Surgical History: Procedure Laterality Date ??? ABDOMINAL EXPLORATION SURGERY ?? 10/31/2004 ?? b/l salpingectomy and removel enodmetrial implantsin cul de sac ??? APPENDECTOMY ? CARPAL TUNNEL RELEASE Bilateral ? CHOLECYSTECTOMY ? HYSTERECTOMY, VAGINAL ?? 05/12/2015 ??? PRO LAP GASTRIC BYPASS/RENATO-EN-Y N/A 01/10/2023 ?? @LAPAROSCOPIC GASTROPLASTY W/ RENATO-EN-Y CONSTRUCTION (WRVU 29.4) performed by Iram Borrero MD at [facility] OR ??? PRO UPPER GI ENDOSCOPY, DIAGNOSTIC N/A 01/10/2023 ?? EGD, UPPER GI ENDOSCOPY performed by Iram Borrero MD at [facility] OR ??? PRO UPPER GI ENDOSCOPY, DIAGNOSTIC N/A 03/05/2023 ?? EGD, UPPER GI ENDOSCOPY (WRVU 2.09) performed by Iram Borrero MD at [facility] OR ?? Active Non-Hospital Problems ?? Diagnosis ? ? Severe obesity (BMI >= 40) ??? CHUN (obstructive sleep apnea) ??? Pain in right foot ??? Glaucoma ??? Fibromyalgia ??? Osteoarthritis, multiple sites ??? Adult BMI 40.0-44.9 kg/sq m ??? Depression with anxiety ??? Calculi, ureter ??? Back pain ??? Mood disorder ??? Chronic pelvic pain in female ??? Unspecified dyspareunia ??? Endometriosis ??? Irritable bowel syndrome with diarrhea ? Social History: Patient lives with boyfriend, 2 dogs, 2 cats and a fish Home Setup: FOS to second floor apartment, [address]STE apartment building w B handrails, tub shower DME: crutches Baseline ADL/Mobility: Prior to gastric bypass in December, pt was Independent with all ADLs, IADLs, driving, since gastric bypass and symptom onset, pt requiring assistance from boyfriend for toilettransfers, ambulation and IADLs. Pt ?? Precautions/Special Considerations: Full Code, Fall risk, orthostatic hypotension, significant dizziness Interval History: NSEO S: I don't think I can go any further, I'm too dizzy O: Patient seen for skilled OT treatment, and demonstrated the following: ?? Self-care: ?? Grooming: Set up assist (pt able to wash face with washcloth while sitting in recliner) ?? Functional Mobility: ?? Supine to sit: SBA ?? Sit to stand: CGA w FWW ?? Ambulation: CGA w FWW and verbal cues for FWW management (pt able to walk ~6feet from bedside torecliner, pt reported increased dizziness and declined to walk further) ?? Stand to sit: CGA w FWW ?? Sit to supine: NA (pt remained in recliner at end of session) ?? Cognition: ?? Behavior / Mood: alert, cooperative and lethargic ?? Alert and oriented to: person, place, time and situation ?? Follows commands: 2 step ?? Attention: WFL ?? Safety awareness: decreased insight into deficits ?? Endurance: poor ?? Vitals: EOB: 124/74, HR 87bpm, SpO2 100% on RA, Standing: HR 135/86, HR 95bpm, SpO2 100% Pain: No c/o pain throughout session Education: Pt/family/caregiver education ongoing regarding: ADL, Positioning, Safety, Activity pacing/Energy conservation, Balance, Recommendations and Discharge planning. Staff Communication: Patient status, treatment, and mobility recommendations discussed with nursing/other staff. ASSESSMENT: Pt seen for continuation of POC. Pt agreeable to therapy despite significant weakness. Pt continue to experience dizziness throughout functional mobility tasks. Pt reported increased dizziness while taking steps w FWW and CGA. Pt not orthostatic this session but dizziness persists. Pt Pt will benefit from ongoing therapeutic interventions to achieve pt's and therapy goals Equipment needs at discharge: to be determined Anticipated Discharge Disposition: to be determined pending medical status & functional progression, home with supervision Daily schedule / Staff Recommendations: ??? Utilize upright chair position using bed features or transfer to recliner chair as appropriate with CGA ??? Ambulate as tolerated CGA ??? Encourage participation in ADL's by providing set up A on tray table and physical assist only as needed Occupational Therapy Goals: To be achieved by 04/03/23. Pt will be Independent with LB dressing Pt will be Independent with LB bathing Pt will be Independent with toileting tasks and toilet transfers PROGRESSING Pt will complete 3 grooming tasks while standing at sink Pt will Independently ambulate functional household distances PROGRESSING Pt will recall the 3 Ps of energy conservation (Plan, Pace, Prioritize) 100% of the time Therapy Frequency (OT): 1-3 times/wk Total Minutes, Occupational Therapy: 23 (TAF X2 ([id number])) Pager: [phone] Pito Baltazar OT 03/22/2023 Occupational Therapy Rehabilitation Department * Ana Condon RN - 03/22/2023 4:30 AM EDT Pt A&Ox4. VSS. Patient tolerated two orange sami ice and crackers prior to being NPO at midnight without experiencing nausea or vomiting. No antiemetics given overnight. Patient states main concern being uncontrolled dizziness. Explained to patient importance of call burden when ambulating or for bathroom due to dizziness. No other acute events to report. Patient utilizing call burden appropriately. * Maria L Crawford, PT - 03/21/2023 2:26 PM EDT 03/21/23 1401 Evaluation & Treatment Document Type contact Total Minutes, Physical Therapy 0 Treatment Date 03/21/23 Comment, Session Not Performed Pt leaving the unit for diagnostic testing. PT to f/u 03/22. Thank you. * Pito Baltazar OT - 03/21/2023 10:13 AM EDT Occupational Therapy Treatment Note Treatment Number OT: 2 ?? Patient profile: Per MD: Leandra Wilks??is a 43 y.o.??female??with medical history significant for morbid obesity, GERD, CHUN, IBS, depression and laparoscopic renato en y gastric bypass on 01/10/23 who has struggled with dysphagia and abdominal pain since surgery who presents 03/18/23 with continued d ysphagia, nausea/vomiting and abdominal pain. ?? Past Medical History No past medical history on file. Past Surgical History Past Surgical History: Procedure Laterality Date ??? ABDOMINAL EXPLORATION SURGERY ?? 10/31/2004 ?? b/l salpingectomy and removel enodmetrial implantsin cul de sac ??? APPENDECTOMY ? CARPAL TUNNEL RELEASE Bilateral ? CHOLECYSTECTOMY ? HYSTERECTOMY, VAGINAL ?? 05/12/2015 ??? PRO LAP GASTRIC BYPASS/RENATO-EN-Y N/A 01/10/2023 ?? @LAPAROSCOPIC GASTROPLASTY W/ RENATO-EN-Y CONSTRUCTION (WRVU 29.4) performed by Iram Borrero MD at [facility] OR ??? PRO UPPER GI ENDOSCOPY, DIAGNOSTIC N/A 01/10/2023 ?? EGD, UPPER GI ENDOSCOPY performed by Iram Borrero MD at [facility] OR ??? PRO UPPER GI ENDOSCOPY, DIAGNOSTIC N/A 03/05/2023 ?? EGD, UPPER GI ENDOSCOPY (WRVU 2.09) performed by Iram Borrero MD at [facility] OR ?? Active Non-Hospital Problems ?? Diagnosis ? ? Severe obesity (BMI >= 40) ??? CHUN (obstructive sleep apnea) ??? Pain in right foot ??? Glaucoma ??? Fibromyalgia ??? Osteoarthritis, multiple sites ??? Adult BMI 40.0-44.9 kg/sq m ??? Depression with anxiety ??? Calculi, ureter ??? Back pain ??? Mood disorder ??? Chronic pelvic pain in female ??? Unspecified dyspareunia ??? Endometriosis ??? Irritable bowel syndrome with diarrhea ? Social History: Patient lives with boyfriend, 2 dogs, 2 cats and a fish Home Setup: FOS to second floor apartment, 4STE apartment building w B handrails, tub shower DME: crutches Baseline ADL/Mobility: Prior to gastric bypass in December, pt was Independent with all ADLs, IADLs, driving, since gastric bypass and symptom onset, pt requiring assistance from boyfriend for toilettransfers, ambulation and IADLs. Pt ?? Precautions/Special Considerations: Full Code, Fall risk, orthostatic hypotension, significant dizziness Interval History: EGD, upper GI endoscopy S: The room is spinning O: Patient seen for skilled OT treatment, and demonstrated the following: ?? Self-care: ?? Toileting ?? Transfer: CGA to beside commode ?? Hygiene: SBA (pt able to clean concepcion area while sitting on commode) ?? Functional Mobility: ?? Supine to sit: SBA ?? Sit to stand: CGA ?? Ambulation: CGA (pt able to walk ~6feet from bedside to recliner) ?? Stand to sit: CGA w verbal cues for hand placement ?? Sit to supine: NA (pt remained in recliner at end of session. ?? Cognition: ?? Behavior / Mood: alert, cooperative and lethargic ?? Alert and oriented to: person, place, time and situation pt reported it was Saturday not ?? Follows commands: 2 step ?? Attention: WFL ?? Safety awareness: decreased insight into deficits ?? Endurance: poor ?? Vitals: EOB: 133/95, HR 90bpm, SpO2 99% on RA, Standing after commode use: 89/57, HR 109bpm, SpO2 93% Pain: No c/o pain throughout session Education: Pt/family/caregiver education ongoing regarding: ADL, Positioning, Safety, Activity pacing/Energy conservation, Balance, Recommendations and Discharge planning. Staff Communication: Patient status, treatment, and mobility recommendations discussed with nursing/other staff. ASSESSMENT: Pt seen for continuation of POC. Pt agreeable to therapy despite significant weakness. Pt reported dizziness throughout therapy session. Pt reported the room was spinning while standing. Pt continues to be able to complete toilet tasks SBA despite dizziness. Pt experienced orthostatic hypotension (133/95 EOB, Standing 89/57). Pt able to complete functional mobility tasks CGA despitereports of dizziness. Pt will benefit from ongoing therapeutic interventions to achieve pt's and therapy goals Equipment needs at discharge: to be determined Anticipated Discharge Disposition: to be determined pending medical status & functional progression, home with supervision Daily schedule / Staff Recommendations: ??? Utilize upright chair position using bed features or transfer to recliner chair as appropriate with CGA ??? Ambulate as tolerated CGA ??? Encourage participation in ADL's by providing set up A on tray table and physical assist only as needed Occupational Therapy Goals: To be achieved by 04/03/23. Pt will be Independent with LB dressing Pt will be Independent with LB bathing Pt will be Independent with toileting tasks and toilet transfers PROGRESSING Pt will complete 3 grooming tasks while standing at sink Pt will Independently ambulate functional household distances PROGRESSING Pt will recall the 3 Ps of energy conservation (Plan, Pace, Prioritize) 100% of the time Therapy Frequency (OT): 1-3 times/wk Total Minutes, Occupational Therapy: 42 ([facility] X3 ([id number])) Pager: [phone] Pito Baltazar, OT 03/21/2023 Occupational Therapy Rehabilitation Department * Crystal Engel MD - 03/21/2023 8:12 AM EDT Minimally Invasive Surgery Inpatient Progress Note ID: Leandra Wilks is a 43 y.o. female with medical history significant for morbid obesity, GERD,CHUN, IBS, depression and laparoscopic renato en y gastric bypass on 01/10/23 who has struggled with dysphagia and abdominal pain since surgery who presents 03/18/23 with continued dysphagia, nausea/vomiting and abdominal pain. Subjective / 24h: - Continued nausea / abdominal pain, but tolerated 360cc PO intake - beaded-stricture appearance of intrahepatic biliary ducts, GI recommending OP follow-up and IG4 testing (ordered) - appears in better mood this morning Objective: Last value Range last 24hrs Temperature Temp: 36.9 ??C (98.4 ??F) Temp: [36.1 ??C (97 ??F)-37.1 ??C (98.8 ??F)] Heart Rate Heart Rate: 92 Heart Rate: [92] Blood Pressure BP: (!) 143/95 BP: (65-152)/(42-111) Respiratory Rate Resp: 18 Resp: [16-18] SpO2 SpO2: 98 % SpO2: [95 %-100 %] 03/20 0701 - 03/21 0700 In: 2514 [P.O.:360; I.V.:2154] Out: 850 [Urine:850] PE: General: Alert, no acute distress Head: Atraumatic, non cyanotic Cardiac: Regular rate & rhythm Pulmonary: Normal respiratory effort on RA Abdominal: Soft, non distended, minimally TTP without peritoneal signs Neuro: Grossly intact, follows commands Extremities: Warm and well-perfused Labs: Recent Labs 03/21/23 0346 03/20/23 0232 03/19/23 0349 03/18/23 1549 WBC 8.2 5.4 9.4 10.2* HGB 13.3 12.1 12.0 14.4 HCT 37.6 35.0* 32.9* 40.5 PLATELET 322 319 272 350 Recent Labs 03/21/23 0346 03/20/23 0232 03/19/23 1532 03/19/23 0349 03/18/23 2308 NA 135 134* 135 135 134* K 3.8 4.1 4.1 3.1* 3.3* CL 98 97* 97* 97* 95* CO2 27 26 26 27 26 BUN 6* 4* 5* 8 11 CREATININE 0.54* 0.42* 0.40* 0.41* 0.40* GLUCOSE 105 122 100 84 144 CALCIUM 8.4* 8.1* 8.6 8.7 8.6 MAGNESIUM 0.81 0.83 0.63* 0.69 -- PHOS 3.0 3.6 2.3* 1.0* -- Microbiology: N/A Imaging/Studies: XR Fluoro Barium Swallow 03/19/23: IMPRESSION 1. Exam limited because only 2 swallows were completed. 2. No obstruction or intestinal dilatation and normal appearance of fundal pouch. Contrast passes rapidly through the gastrojejunal anastomosis into small bowel segments. 3. Small sliding hiatal hernia. MRCP 03/19/23: beaded-strictured appearance of the intrahepatic biliary ducts extending into the mostcranial aspect of the common hepatic duct. EGD 03/20/23: normal esophagus, healthy appearing gastrojejunostomy anastomosis, normal examined jejunum A/P: Leandra Wilks is a 43 y.o. female with medical history significant for morbid obesity, GERD, CHUN, IBS, depression and laparoscopic renato en y gastric bypass on 01/10/23 who has struggled with dysphagia and abdominal pain since surgery who presents 03/18/23 with continued dysphagia, nausea/vomiting and abdominal pain and failure to thrive. UGI study without evidence of dilation, contrast progressed rapidly through GJ, no sign of obstruction. Small sliding hiatal hernia present. GI performed EGD which demonstrated normal esophagus, healthy appearing gastrojejunostomy anastomosis, normal jejunum. MRCP demonstrates beaded-strictured appearance of intrahepatic biliary ducts; GI recommending OP follow-up. Work-up has not identified a source of her symptoms. Will plan for psychiatry/BIT team involvement and possible diagnostic laparoscopy potentially tomorrow. NEURO: Pain control with scheduled tylenol, prn home flexeril. Continue home fluoxetine & lamotrigine. No narcotics at this time. PULM: IS, OOB. Duonebs prn CV: No acute concerns GI: NPO pending GI recs. IV PPI, scheduled sucralfate. Scopolamine patch, prn zofran. MRCP results pending. Appreciate GI involvement, recs pending. Trend LFTs FEN: Voiding spontaneously, monitor I/Os. Continue mIVF while NPO ENDO: Ketosis on admission w/ normal BG, monitor daily BMP ID: No abx indicated PPx: Enoxaparin, SCDs DISPO: Floor status. PT/OT consults CODE: Attempt Cardiopulmonary Resuscitation - Inpatient Crystal Engel MD 03/21/2023 Associated attestation - Iram Borrero MD - 03/21/2023 12:32 PM EDT I have seen and examined the patient, providing macias components as outlined below. I have reviewed the resident???s above note; my evaluation of the patient is below: Leandra is experiencing significant dizziness and persistent nausea today. She was able to take in 360 of PO yesterday which is quite good considering she was NPO for a good part of the day. Althoughunlikely, I would like to obtain a CT Head to ensure no intracranial process contributing to her persistent nausea. No clear mechanical or anatomical cause has been elucidated from work up thus far to explain her symptoms. Will ask the behavioral inpatient therapy team to see her today to see if they can offer any other thoughts or suggestions to help her symptoms. Will also tentatively plan for diagnostic laparoscopy tomorrow to rule out an internal hernia. Appreciate Psychiatry input regarding her medications. Iram Borrero MD * Elva Ronquillo LPN - 03/20/2023 5:25 PM EDT Patient up to bed side commode BP 152/111 dizzy and lightheaded, got back to bed laying down and BP136/96, continues to be lightheaded and dizzy. MD notified. MD at bedside at this time, patient dryheaving while sitting up in bed. No new orders at this time * Maria L Crawford, PT - 03/20/2023 4:03 PM EDT 03/20/23 1602 Evaluation & Treatment Document Type contact Total Minutes, Physical Therapy 0 Treatment Date 03/20/23 Comment, Session Not Performed PT consult recieved. Pt at a procedure earlier.Spoke with OT who completed an evaluation. She will need to be able to climb 13 stairs to enter her apt.. PT to f/u 03/21/23 * Poppy Isbell RN - 03/20/2023 8:00 AM EDT OUTCOME EVALUATION NOTE: OUTCOME SUMMARY: Patient AAOx4 c/o dizziness, nausea and elevated BP, team made aware. 1728 Team rounding at bedside, made aware of elevated BP, nausea and dizziness, no new orders received. PLAN MOVING FORWARD: Monitor vital signs Pain management Medicated for nausea INDIVIDUALIZED FALL PREVENTION INTERVENTIONS: Patient-specific fall risk factors per assessment: [current deficits]: Dizziness, generalized weakness Assistance [level of assistance required for transfers and ambulation]: One person assist Supervision [direct monitoring required during toileting and ADLs]: Standby assist Surveillance [continuous indirect monitoring]: Masimo, purposeful hourly rounding Patient-specific fall prevention interventions for sensory deficits provided, if applicable: [X] N/A CARE PLAN GOAL OUTCOME EVALUATION: Ongoing * Natalee Winn MD - 03/20/2023 7:24 AM EDT Minimally Invasive Surgery Inpatient Progress Note ID: Leandra Wilks is a 43 y.o. female with medical history significant for morbid obesity, GERD,CHUN, IBS, depression and laparoscopic renato en y gastric bypass on 01/10/23 who has struggled with dysphagia and abdominal pain since surgery who presents 03/18/23 with continued dysphagia, nausea/vomiting and abdominal pain. Subjective / 24h: - No acute overnight events - Emesis x3 recorded, pt reports dry heaves no large volume emesis - Continued nausea / abdominal pain - IV antiemetics, 1x dose IV dilaudid and scheduled tylenol - UGI study w/o evidence of obstruction - MRCP obtained, results pending - GI consult, recommendations pending Objective: Last value Range last 24hrs Temperature Temp: 36.7 ??C (98.1 ??F) Temp: [36.3 ??C (97.3 ??F)-36.9 ??C (98.4 ??F)] Heart Rate Heart Rate: 76 Heart Rate: -- Blood Pressure BP: (!) 137/94 BP: (128-168)/(87-111) Respiratory Rate Resp: 15 Resp: [15-20] SpO2 SpO2: 96 % SpO2: [95 %-100 %] 03/19 0701 - 03/20 0700 In: 4600.3 [P.O.:80; I.V.:3217.3] Out: 3200 [Urine:3200] PE: General: Alert, no acute distress Head: Atraumatic, non cyanotic Cardiac: Regular rate & rhythm Pulmonary: Normal respiratory effort on RA Abdominal: Soft, non distended, minimally TTP without peritoneal signs Neuro: Grossly intact, follows commands Extremities: Warm and well-perfused Labs: Recent Labs 03/20/23 0232 03/19/23 03403/18/23 1549 WBC 5.4 9.4 10.2* HGB 12.1 12.0 14.4 HCT 35.0* 32.9* 40.5 PLATELET 319 272 350 Recent Labs 03/20/23 0232 03/19/23 1532 03/19/23 0349 03/18/23 2308 03/18/23 1549 NA 134* 135 135 134* 138 K 4.1 4.1 3.1* 3.3* 3.0* CL 97* 97* 97* 95* 92* CO2 26 26 27 26 28 BUN 4* 5* 8 11 14 CREATININE 0.42* 0.40* 0.41* 0.40* 0.47* GLUCOSE 122 100 84 144 113 CALCIUM 8.1* 8.6 8.7 8.6 9.7 MAGNESIUM 0.83 0.63* 0.69 -- -- PHOS 3.6 2.3* 1.0* -- -- Microbiology: N/A Imaging: XR Fluoro Barium Swallow 03/19/23: IMPRESSION 1. Exam limited because only 2 swallows were completed. 2. No obstruction or intestinal dilatation and normal appearance of fundal pouch. Contrast passes rapidly through the gastrojejunal anastomosis into small bowel segments. 3. Small sliding hiatal hernia. MRCP: results pending A/P: Leandra Wilks is a 43 y.o. female with medical history significant for morbid obesity, GERD, CHUN, IBS, depression and laparoscopic renato en y gastric bypass on 01/10/23 who has struggled with dysphagia and abdominal pain since surgery who presents 03/18/23 with continued dysphagia, nausea/vomiting and abdominal pain and failure to thrive. UGI study without evidence of dilation, contrast progressed rapidly through GJ, no sign of obstruction. Small sliding hiatal hernia present. MRCP obtained, results pending. GI consulted, will follow up this morning with final recommendations. NPO pending GI recs for possible intervention. Electrolytes improved with replacement, tolerated some sips of fluids but continues to endorse nausea and regurgitation despite antiemetics. Ultimately may require diagnostic laparoscopy if workup does not identify source for her symptoms. NEURO: Pain control with scheduled tylenol, prn home flexeril. Continue home fluoxetine & lamotrigine. No narcotics at this time. PULM: IS, OOB. Duonebs prn CV: No acute concerns GI: NPO pending GI recs. IV PPI, scheduled sucralfate. Scopolamine patch, prn zofran. MRCP results pending. Appreciate GI involvement, recs pending. Trend LFTs FEN: Voiding spontaneously, monitor I/Os. Continue mIVF while NPO ENDO: Ketosis on admission w/ normal BG, monitor daily BMP ID: No abx indicated PPx: Enoxaparin, SCDs DISPO: Floor status. PT/OT consults CODE: Attempt Cardiopulmonary Resuscitation - Inpatient Dick Bower MD 03/20/2023 Minimally Invasive Surgery [id number] Addendum: Patient seen and discussed with Dr. Bower. IMPRESSION ??Bile ducts: There is a beaded-strictured appearance of the central intrahepatic biliary ducts with stricturing at the confluence of the intrahepatic biliary ducts extending into the cranial aspect of the common hepatic duct. The remainder of the common hepatic duct and common bile duct are normal in course and caliber. There are no intraluminal filling defects. ?? Gallbladder: The gallbladder is surgically absent with surgical clips within the gallbladder fossa. There is a cystic duct remnant. ?? Beaded-strictured appearance of the intrahepatic biliary ducts extending into the most cranial aspect of the common hepatic duct. Differential diagnosis would include primary sclerosing cholangitis (PSC) (most commonly), ischemic cholangiopathy, HIV-associated cholangitis, chemotherapy-induced cholangitis, IgG4 disease, amongst others. ?? Thank you for letting us participate in the care of this patient. If you are a health care provider and have any questions regarding this report, please contact the number below. For patients who have questions please contact the health direct care staffer that requested your imaging first. Electronically signed by: Maximo Forrest DO, [facility] ([phone]), at 03/20/2023 7:59 AM Lab Results Component Value Date ALT 57 (H) 03/20/2023 AST 42 (H) 03/20/2023 ALKPHOS 111 (H) 03/20/2023 BILITOT 1.0 03/20/2023 Some improvement in LFTs. Will case further with GI given MRCP findings of intrahepatic ductal stricturing. Surgery available to coordinate for laparoscopic assisted ERCP if endoscopic evaluation of hepatic ducts indicated. Would avoid axios stent in this patient if possible. Discussed with attending, Dr. Adair Winn MD 03/20/23 9:01 AM MISpager [phone] Associated attestation - Iram Borrero MD - 03/20/2023 5:10 PM EDT I have seen and examined the patient, providing macias components as outlined below. I have reviewed the fellow???s above note; my evaluation of the patient is below: MRCP with concern for PSC. LFTs are trending down which is reassuring. Electrolytes are improved today. Leandra is still unfortunately having dry heaves and nausea. She says her abdominal pain is slightly better today. Abdominal exam remains benign. EGD today by GI was normal. Appreciate their thoughts and recommendations. I think we need to consider having Psychiatry weigh given her history of disordered eating to see if this could be playing a role. I will tentatively plan for diagnostic laparoscopy on Saturday to rule out an internal hernia given her ongoing pain. Iram Borrero MD * Gladys Howard RN - 03/19/2023 7:34 PM EDT OUTCOME EVALUATION NOTE: OUTCOME SUMMARY: Pt AOX4 throughout shift. VSS; BP high after ambulation; WNL on rechecks. Pt intermittently nauseous during shift; increased with movement. PRN nausea medication given. Electrolytes replaced per order; see MAR. Patient cooperative with care and resting between care. No adverse events this shift. Will continue to monitor and help patient reach d/c goals. PLAN MOVING FORWARD: Pain control Mobilize D/c planning INDIVIDUALIZED FALL PREVENTION: Patient is currently a high risk to Fall. Patient educated on bed/chair alarm, demonstrates proper use of call burden and verbalizes understanding of fall preventions implemented. Patient-specific fall risk factors per assessment: [current deficits]: Pain, Medications, Hospital Environment, unsteady gait Assistance [level of assistance required for transfers and ambulation]: Standby assist Supervision [direct monitoring required during toileting and ADLs]: Eyes on per unit protocol when OOB/with ADL's Surveillance [continuous indirect monitoring]: Sai Purposeful Rounding, Nurse Knowledge Exchange * Dick Bower MD - 03/19/2023 9:17 AM EDT Minimally Invasive Surgery Inpatient Progress Note ID: Leandra Wilks is a 43 y.o. female with medical history significant for morbid obesity, GERD,CHUN, IBS, depression and laparoscopic renato en y gastric bypass on 01/10/23 who has struggled with dysphagia and abdominal pain since surgery who presents 03/18/23 with continued dysphagia, nausea/vomiting and abdominal pain. Subjective / 24h: - No acute overnight events - Mildly elevated LFTs, hypokalemia, hypophosphatemia - Electrolytes replaced overnight - Tolerating sips of water with pills, abdominal pain unchanged - Nausea currently controlled on scheduled /prn antiemetics, no emesis overnight Objective: Last value Range last 24hrs Temperature Temp: 36.3 ??C (97.3 ??F) Temp: [35.7 ??C (96.2 ??F)-37 ??C (98.6 ??F)] Heart Rate Heart Rate: 76 Heart Rate: [76-120] Blood Pressure BP: 139/87 BP: (128-156)/(84-115) Respiratory Rate Resp: 16 Resp: [10-18] SpO2 SpO2: 100 % SpO2: [96 %-100 %] 03/18 0701 - 03/19 0700 In: 1408.3 [I.V.:908.3] Out: 570 [Urine:570] PE: General: Alert, no acute distress Head: Atraumatic, non cyanotic Cardiac: Regular rate & rhythm assessed peripherally Pulmonary: Normal respiratory effort Abdominal: Soft, non distended, minimally TTP without peritoneal signs Neuro: Grossly intact, follows commands Extremities: Warm and well-perfused Labs: Recent Labs 03/19/23 0349 03/18/23 1549 WBC 9.4 10.2* HGB 12.0 14.4 HCT 32.9* 40.5 PLATELET 272 350 Recent Labs 03/19/23 0349 03/18/23 2308 03/18/23 1549 NA 135 134* 138 K 3.1* 3.3* 3.0* CL 97* 95* 92* CO2 27 26 28 BUN 8 11 14 CREATININE 0.41* 0.40* 0.47* GLUCOSE 84 144 113 CALCIUM 8.7 8.6 9.7 MAGNESIUM 0.69 -- -- PHOS 1.0* -- -- Microbiology: N/A Imaging: MRCP & XR Fluoro Barium Swallow study ordered A/P: Leandra Wilks is a 43 y.o. female with medical history significant for morbid obesity, GERD, CHUN, IBS, depression and laparoscopic renato en y gastric bypass on 01/10/23 who has struggled with dysphagia and abdominal pain since surgery who presents 03/18/23 with continued dysphagia, nausea/vomiting and abdominal pain. Mildly elevated LFTs on admission may represent choledocholithiasis vs afferent loop syndrome or other etiology, MRCP ordered and pending. UGI study ordered and pending. Albumin and prealbumin normalon admission though with hypokalemia and hypophosphatemia, replaced electrolytes and will monitor BID until normalized. Ultimately may require diagnostic laparoscopy if workup does not identify source for her symptoms. NEURO: Pain control with scheduled tylenol, prn home flexeril. Continue home fluoxetine & lamotrigine PULM: IS, OOB. Duonebs prn. CV: No acute concerns GI: NPO pending above studies. IV PPI, scheduled sucralfate. Scopolamine patch, prn zofran. UGI & MRCP pending. FEN: Voiding spontaneously, monitor I/Os. Continue mIVF while NPO. Electrolyte repletion, recheck at 2PM ENDO: Ketosis on admission w/ normal BG, monitor daily BMP ID: No abx indicated PPx: Enoxaparin, SCDs DISPO: Floor status CODE: Attempt Cardiopulmonary Resuscitation - Inpatient Dick Bower MD 03/19/2023 Minimally Invasive Surgery [id number] Associated attestation - Iram Borrero MD - 03/19/2023 7:48 PM EDT I have reviewed the resident???s above note; my evaluation of the patient is below: I attempted to see the patient twice today. Once while down at her UGI. She only tolerated two sipsof contrast before dry heaving but the study was able to show brisk flow of contrast through her GJand JJ without obstruction. I spoke with Dr. Zapien with GI and asked his team to weigh in on her case as well given her elevated LFTs. He agreed with obtaining an MRCP. I attempted to see her again w nohemy she was in MRI. This study was completed but has not been read yet. Per my team, her nausea robles bit better today. Her leukocytosis resolved. Electrolytes need continued replacement for hypokalemia, hypomagnesemia, and hypophosphatemia. Further management to be decided on results of MRCP. May need to consider diagnostic laparoscopy this admission. Iram Borrero MD * Danni Jones RN - 03/19/2023 6:47 AM EDT OUTCOME EVALUATION NOTE: ?? OUTCOME SUMMARY: ?? patient A&Ox4, lethargic, able to verbalize needs; endorses mild abdominal cramping, otherwise denies pain; insulin gtt d/c'd per order, plan for FSBG q4h; mIVF infusing per eMAR, continued electrolyte replacement via PIV with no adverse s/sx observed; voiding to BSC, reports dizziness/lightheadedness with ambulation, calls appropriately for assistance as needed; frequent rounding to maintainpatient comfort/safety, encouraged to call staff for assistance as needed; VSS. ?? PLAN MOVING FORWARD: ?? electrolyte replacement NPO MRI/barium swallow d/c planning ?? INDIVIDUALIZED FALL PREVENTION:??high fall risk -??education provided r/t??bed/chair alarms,??verbalizes understanding; able to??demonstrate proper use of call burden ?? Patient-specific fall risk factors per assessment: [current deficits]:?pain; metabolic abnormalities; inpatient hospital setting ?? Assistance [level of assistance required for transfers and ambulation]:??Ax1 OOB/BSC ?? Supervision [direct monitoring required during toileting and ADLs]:??Ax2 OOB/BSC ?? Surveillance [continuous indirect monitoring]:??masimo; purposeful rounding; I-PASS * Danni Jones RN - 03/19/2023 12:32 AM EDT patient arriving via stretcher transport in stable condition; awaiting reconciliation of transfer orders, paged and made aware; insulin gtt currently infusing at prescribed rate, BG checked per current orders and titrated per nomogram, confirmed at bedside with Trinidad MCKEON (charge). documented in this encounter H&P Notes * Felicia Lee MD - 03/20/2023 5:43 AM EDT Gastroenterology and Hepatology Pre-Procedure History and Physical Exam Procedure: EGD: Indication: odynophagia Patient Active Problem List Diagnosis Code ??? Irritable bowel syndrome with diarrhea K58.0 ??? Back pain M54.9 ??? Chronic pelvic pain in female R10.2, G89.29 ??? Unspecified dyspareunia N94.10 ??? Mood disorder F39 ??? Calculi, ureter N20.1 ??? Pain in right foot M79.671 ??? Endometriosis N80.9 ??? Glaucoma H40.9 ??? Fibromyalgia M79.7 ??? Osteoarthritis, multiple sites M15.9 ??? Adult BMI 40.0-44.9 kg/sq m Z68.41 ??? Depression with anxiety F41.8 ??? CHUN (obstructive sleep apnea) G47.33 ? ? Severe obesity (BMI >= 40) E66.01 ??? Abdominal pain R10.9 EXAM: HEENT: Airway examined, oropharynx clear Mallampati Score: II (soft palate, uvula, fauces visible) LUNGS: Clear to auscultation HEART: Regular rate and rhythm, normal S1, S2 ABDOMEN: Normal bowel sounds, soft, non tender, non distended A/P: Proceed with the planned endoscopic procedure. ASA 3 - Patient with moderate systemic disease with functional limitations Sedation Plan: anesthesia Risks and benefits of the procedure explained to the patient. Consent form signed and included in the patient's chart. Felicia Lee PGY-4, Gastroenterology * Dick Bower MD - 03/18/2023 4:04 PM EDT [facility] Department of Minimally Invasive Surgery Admission History and Physical HPI: Leandra Wilks is a 43 y.o. female with medical history significant for morbid obesity, GERD, CHUN, IBS, depression and laparoscopic renato en y gastric bypass on 01/10/23 who has struggled with dysphagia and abdominal pain since surgery - she presents today with continued dysphagia, nausea/vomiting and abdominal pain. The patient reports she continues to have daily nausea and vomiting. Also having diarrhea daily, describes it as watery, no blood in stool. Is passing flatus. No pain with urination, is urinating about twice daily. Is occasionally able to tolerate some po intake - she last had a sip of water aroundnoon. Last night she tried to eat a teaspoon of rice which went okay without vomiting. Reports she's not eating high-protein food or supplements because she's afraid of making her stomach pain worse.Is not taking any medications currently for the same reason, reports she gags with any attempt at po intake. She's been seen in clinic multiple times since surgery for these ongoing symptoms, and underwent and EGD on 03/05/23 which showed overall normal appearing renato-en-y anatomy and a superficial ulcer on the jejunal side of the GJ anastomosis. The GJ was dilated to 15mm. Has also had several CT scans which show passage of contrast through the bowel as expected, no intraabdominal pathology identified to explain her symptoms. Due to persistent symptoms she was scheduled for an upper GI study this morning at her local hospital but she threw the contrast back up. She was also noted to be tachycardic and was advised to present to [facility] for further evaluation by the surgery team. On presentation the pt is tachycardic to 110,BP 146/109, afebrile, O2 98% on RA. Labs are pending. The pt was admitted for further workup and brianna atment, see assessment and plan below. PMH: No past medical history on file. PSH: Past Surgical History: Procedure Laterality Date ??? ABDOMINAL EXPLORATION SURGERY 10/31/2004 b/l salpingectomy and removel enodmetrial implantsin cul de sac ??? APPENDECTOMY ??? CARPAL TUNNEL RELEASE Bilateral ??? CHOLECYSTECTOMY ??? HYSTERECTOMY, VAGINAL 05/12/2015 ??? PRO LAP GASTRIC BYPASS/RENATO-EN-Y N/A 01/10/2023 @LAPAROSCOPIC GASTROPLASTY W/ RENATO-EN-Y CONSTRUCTION (WRVU 29.4) performed by [facility] MA[facility] OR ??? PRO UPPER GI ENDOSCOPY, DIAGNOSTIC N/A 01/10/2023 EGD, UPPER GI ENDOSCOPY performed by Iram Borrero MD at [facility] MAIN OR ??? PRO UPPER GI ENDOSCOPY, DIAGNOSTIC N/A 03/05/2023 EGD, UPPER GI ENDOSCOPY (WRVU 2.09) performed by Iram Borrero MD at [facility] MAIN OR HOME MEDICATIONS: No current facility-administered medications on file prior to encounter. Current Outpatient Medications on File Prior to Encounter Medication Sig Dispense Refill ??? omeprazole (PriLOSEC) [address] capsule Take 1 capsule by mouth 2 times daily for 30 days. 60 capsule 0 ??? sucralfate (Carafate) 1 gram tablet Take 1 tablet by mouth 4 times daily for 30 days. Crush tablet and take with small amount of liquid 120 tablet 0 ??? cholecalciferol, Vitamin D3, 50 mcg (2,000 unit) Capsule Take 1 capsule by mouth daily. ??? Certavite-Antioxidant 18-400 mg-mcg Tablet Take 1 tablet by mouth daily. ??? prochlorperazine (Compazine) 10 mg tablet TAKE ONE TABLET BY MOUTH THREE TIMES A DAY FOR 7 DAYS ??? ondansetron ODT (Zofran-ODT) 4 mg Tablet, Rapid Dissolve Take 1 tablet by mouth every 8 hours as needed for Nausea. 20 tablet 0 ??? polyethylene glycoL (Miralax) 17 gram/dose Powder Take 17 g by mouth daily. ??? acetaminophen (Tylenol) 650 mg/20.3 mL Solution Take 20.3 mLs by mouth every 6 hours as needed. ??? docusate sodium (Colace) 100 mg Capsule Take 1 capsule by mouth 2 times daily as needed for Constipation. ??? Emgality Pen 120 mg/mL Pen Injector every 30 days. ??? oxybutynin (DITROPAN XL) 15 mg Tablet Extended Rel 24 hr 15 mg daily. ??? propranoloL (Inderal) 20 mg Tablet TAKE ONE TABLET BY MOUTH TWICE A DAY ??? lamoTRIgine (LaMICtal) 150 mg Tablet TAKE ONE TABLET BY MOUTH TWICE A DAY ??? cyclobenzaprine (Flexeril) 5 mg Tablet TAKE ONE TABLET BY MOUTH THREE TIMES A DAY NEEDED FORBACK PAIN ??? FLUoxetine (PROzac) 20 mg Capsule Take 20 mg by mouth Daily. ??? latanoprost (XALATAN) 0.005 % Drops INSTILL 1 DROP IN EACH EYE AT BEDTIME DIRECTED 3 ??? PROAIR HFA 90 mcg/actuation HFA Aerosol Inhaler INHALE 1 TO 2 PUFFS FOUR TIMES A DAY NEEDED WHEN COUGHING AND BEFORE EXERCISE 2 ALLERGIES: No Known Allergies ROS: Negative except as indicated in HPI above. FAMILY HISTORY: non-contributory in any family member SOCIAL HISTORY: Social History Socioeconomic History ??? Marital status: Spouse name: Not on file ??? Number of children: Not on file ??? Years of education: Not on file ??? Highest education level: Not on file Occupational History ??? Not on file Tobacco Use ??? Smoking status: Never ??? Smokeless tobacco: Never Vaping Use ??? Vaping Use: Never used Substance and Sexual Activity ??? Alcohol use: Not Currently ??? Drug use: Not Currently ??? Sexual activity: Not on file Other Topics Concern ??? Not on file Social History Narrative ??? Not on file Social Determinants of Health Financial Resource Strain: Not on file Food Insecurity: Not on file Transportation Needs: Not on file Physical Activity: Not on file Housing Stability: Not on file PHYSICAL EXAM Temp: [35.7 ??C (96.2 ??F)] Heart Rate: [107-120] Resp: [10-18] BP: (146-152)/(109-115) SpO2: [97 %-98 %] Heart Rate from SpO2: -- No intake/output data recorded. General: Alert, no acute distress Head: Atraumatic, non cyanotic Cardiac: Tachycardic to 100s Pulmonary: Normal respiratory effort on RA Abdominal: Soft, non distended, minimally TTP Neuro: Grossly intact, follows commands Extremities: Warm and well-perfused LABORATORY DATA Recent Labs 03/18/23 1549 WBC 10.2* HGB 14.4 PLATELET 350 Recent Labs 03/18/23 1549 K 3.0* CO2 28 BUN 14 CREATININE 0.47* LFT's Lab Results Component Value Date Alk Phos 152 (H) 03/18/2023 AST 74 (H) 03/18/2023 Albumin 4.4 03/18/2023 Bili, Direct 0.6 (H) 03/18/2023 Total Bilirubin 1.4 (H) 03/18/2023 ALT 87 (H) 03/18/2023 Total Protein 7.6 03/18/2023 Coags No results found for: INR, PT, PTT MICRO: Microbiology Results (Last 30 days) No results found for the last 720 hours. IMAGING: No results found for this visit on 03/18/23. IMPRESSION: Leandra Wilks is a 43 y.o. female with medical history significant for morbid obesity, GERD, CHUN, IBS, depression and laparoscopic renato en y gastric bypass on 01/10/23 who has struggledwith dysphagia and abdominal pain since surgery - she presents today with continued dysphagia, nause a/vomiting and abdominal pain. Will plan to admit for IVF hydration, lab work including nutrition labs pending. Will schedule for an upper GI study in the morning to assess esophageal function given ongoing symptoms of dysphagia. Ultimately may require a diagnostic laparoscopy if symptoms persist. PLAN: - Admit to general surgery, Dr. Borrero attending - Clear liquid diet, NPO at midnight - Upper GI study in AM - IVF: LR 100cc - Pain control: tylenol - DVT ppx: Lovenox, SCDs - Dispo: Floor status Dick Bower MD 03/18/2023 Minimally Invasive Surgery [id number] Associated attestation - Iram Borrero MD - 03/18/2023 8:17 PM EDT I have seen and examined the patient, providing macias components as outlined below. I have reviewed the resident???s above note; my evaluation of the patient is below: This is a 43 yo woman who underwent laparoscopic RNYGB on 01/10/23 by me who presents with persistent and worsening nausea, dry heaves and abdominal pain. She had an attempted Upper GI this am at an OSH which was not completed due to her intolerance of barium. She then presented to her PCP where shewas noted to look unwell and was recommended to come to [facility]. Here she reports that she isn't eating or drinking at home. She did endorse having a tablespoon of rice yesterday and yogurt the day before. She appears fatigued. Her abdomen is soft and mildly tender in her upper abdomen. She was mildlytachycardic on arrival but normotensive. Her labs are significant for hypokalemia, a mild leukocytosis, mildly elevated LFTs, but interestingly she has a normal prealbumin and albumin. She has had multiple CT scans since her operation and so given her physical exam findings, I do notthink it is necessary to repeat another at this time. I did perform an Upper Endoscopy on 03/05 which showed a patent GJ and renato limb. Her JJ has not been evaluated aside from CT scans which have shown contrast passing through into her small bowel and then colon. Her elevated LFTs could reflect afferent loop syndrome but her BP limb and stomach appear decompressed on previous scans. She is s/p cholecystectomy and so rare but could also consider choledocholithiasis. She also doesn't have any concerning signs for an internal hernia on her CT. Overall, this is a 43 yo woman who is a little over 2 months from a RNYGB who has not thrived sincesurgery. Her labs today are concerning for ketosis and she is overall losing weight at a more rapidpace than normal. Interestingly her albumin and prealbumin are normal. Her GJ and JJ both appear patent although the transit of contrast through her JJ has not been clearly evaluated. Her LFTs could be a sign of choledocholithiasis vs afferent loop syndrome vs other etiology. She would benefit fromadmission for hydration and continued work up of these abnormalities. We may need to consider a diagnostic laparoscopy as well to definitively rule out an internal hernia. Will start with an UGI and MRCP. Iram Borrero MD documented in this encounter ED Notes * Marlene Nathan RN - 03/29/2023 12:00 PM EDT Pt Urine was negative. * Danni Prabhakar RN - 03/18/2023 11:50 PM EDT Pt awake, appears lethargic with flat affect. Oriented x 4. Pt reports 7/10 abd pain. Reports nausea, medicated with PRNs as ordered. Pt assisted to bathroom. Reports dizziness with ambulation, ambulates with steady gait, safety maintained, stand by assist. Pt receiving IV fluids as ordered. Pt awaiting transport to inpatient unit. * Danni Prabhakar RN - 03/18/2023 7:45 PM EDT Report and care of pt received from Stacey MCKEON. Pt A&Ox4, resting quietly in bed. Pt reporting 6/10 abd pain. Reports nausea, pt states nausea is tolerable at this time and denies need for medication. Pt denies further needs at this time. * Emily Willson RN - 03/18/2023 4:47 PM EDT Barium swallow team called and said that this cant be done at 8am. They stated that they tried to message the doc but they are offline. Team paged. Primary nurse aware * Swathi Day MD - 03/18/2023 4:45 PM EDT ED Resident Note HPI: Leandra Wilks is a 43 y.o. female who presents to the Emergency Department with poor PO intake, nausea, and vomiting. History obtained from Leandra and her boyfriend, Jaxon. She underwent bariatric surgery on 01/10/23. Since that time, she has not been able to eat solid foods. She has been drinking some water, but has not been able to stomach anything with calories. Has been nauseated and vomiting after water. Unable to tolerate Ensure shakes, vitamin supplements. Has been following with surgery and PCP, who have repleted IV K and advised her to try to take in some nutrition, but she has been unable. She was supposed to have EGD this morning at [facility] but was unable to tolerate the procedure; they advised that she present here. Leandra reports some lightheadedness, dizziness, and overall weakness lately. She has been able to work and needs support to walk. Has been spending most of her time in bed, which is significantly changed from prior to the surgery. ROS as per HPI Vitals: ED Triage Vitals [03/18/23 1331] BP: (!) 152/115 Heart Rate: (!) 120 Resp: 18 Temp: 35.7 ??C (96.2 ??F) Temp src: Temporal SpO2: 98 % O2 Device: RA O2 Flow Rate (L/min): n/a Physical Exam General: Awake, fatigued, cooperative with exam, frail-appearing HEENT: atraumatic and normocephalic; anicteric sclera Cardiovascular: Tachycardic rate, regular rhythm, normal S1 and S2, no murmurs, gallops, or rubs; 2+ radial pulses bilaterally Respiratory: Breathing comfortably on room air GI: Abdomen soft, diffusely tender, particularly in epigastric region; non- distended without rebound or guarding; normoactive bowel sounds; surgical scars healing well Extremities: Warm and well perfused, 2+ DP pulses bilaterally, no pitting edema Skin: Warm and dry; no rashes, ecchymosis, or lesions Neuro: A&0x3, speech grossly intact though soft-spoken and slowed ED Course: I have reviewed labs and imaging, images and available reports, and they are significant for: - WBC 10.2, CBC otherwise normal - CO2 28, remainder of BMP also normal - T bili, d bili, alk phos, AST, ALT mildly elevated - Lipase 156 - UA notable for >80 ketones, orange and turbid urine, 100 protein, large bili, small leuks, positive nitrites - EKG pending Procedures Assessment and Plan: 43 y.o. female with a history of recent bariatric surgery in 12/2022 presenting with ketosis in the setting of minimal PO intake since the surgery. She has had poor PO intake for months related to severe nausea and vomiting. Her inability to maintain PO nutrition and hydration is concerning, though her electrolytes were largely WNL. Rehydrated with 2L LR bolus and started a D5 NS infusion, given ketosis. Plan to admit to Minimally Invasive Surgery for further workup, as they have performed extensive imaging in the past. The visit findings, diagnosis, and care plan were discussed with the patient. Swathi Day MD Internal Medicine PGY-1 03/18/23 4:56 PM Pager #[phone] Swathi Day MD Resident 03/18/23 [id number] Associated attestation - Pito Mclaughlin MD - 03/20/2023 1:56 PM EDT ED ATTENDING ATTESTATION NOTE The patient was seen in conjunction with the resident physician. I have independently performed thekey portions of the history and physical exam. I have personally reviewed nursing notes, vital signs, and diagnostic studies including labs, imaging studies and EKGs. I have discussed the details of the case with the resident and agree with the assessment and plan as described in the resident's note. Briefly, 43 y.o. female who presents with nausea, vomiting, and inability to tolerate PO. Bariatricsurgery on 01/10 with recent dilation. Continues to be unable to tolerate flood/fluids. On exam she is tachycardic with tachy mucous membranes. Notes/prior tests reviewed: prior clinic, procedures, and surgery notes. Her labs show concentrated urine, ketouria, normal bicarb. We started 2L IVF and then started D5NS for likely starvation ketosis. Case discussed with minimally invasive surgery who will admit the patient. * Ivan Oviedo PA - 03/18/2023 1:30 PM EDT 43 y/o F with hx of endometriosis, fibromyalgia, chronic pelvic pain, mood disorder, and gastric bypass on 01/10/23 presents with nausea and vomiting. Patient has been vomiting off and on for about a month. She saw her surgical team today and it was recommended she come to the ED today. Appears pale, uncomfortable and fatigued. She is tachy to 115 in triage. Abdominal labs ordered. Ivan Oviedo PA 03/18/23 0830 documented in this encounter Miscellaneous Notes * Care Management Discharge - Iris Cash RN - 03/29/2023 8:50 AM EDT CARE MANAGEMENT FINAL DISCHARGE NOTE Chart reviewed, care reviewed with primary team and at interdisciplinary rounds. Patient is medically ready for discharge to Home with no discharge needs. Needs for Transition of Care: Plan for discharge is: Pending Hospital Course and PT/OT Recommendations Outpatient Agency/Support Group Needs: None Transportation: family or friend will provide Functional status prior to admission: Independent Home Environment: Others in the home: significant other. Current Living Arrangements: home/apartment/condo. Accessibility Concerns:second floor apartment, FOS to manage. Current Functional Ability: Independent DME used at home: none Patient is insured through: Primary Insurance: [place] Payor: [place] / Plan: [place] PRIMARY CARE PLUS / Product Type: *No Product type* / Secondary Insurance: N/A Prescription Coverage: Yes This plan was formulated with input from patient, and team. All are in agreement with plan. Iris Cash RN, BSN Case Management Work [phone] * Consult Note - Lizbeth Pan MD - 03/28/2023 2:40 PM EDT Images from the original note were not included. Patient Name: Leandra Wilks Patient Age: 43 y.o. Birthdate: 1980 Admit date: 03/18/2023 Attending Physician: Iram Borrero MD Ophthalmology Inpatient - Consultation Note Date of Consultation: 03/28/2023 Consult Service: Ophthalmology Place of Service: Ophthalmology Clinic Reason for Consult: I am seeing Leandra Wilks at the request of Dr. Borrero for diplopia and dizziness. Active Problem List: Active Hospital Problems Diagnosis ??? Abdominal pain ??? Severe protein-calorie malnutrition Resolved Hospital Problems No resolved problems to display. Active Non-Hospital Problems Diagnosis ? ? Severe obesity (BMI >= 40) ??? CHUN (obstructive sleep apnea) ??? Pain in right foot ??? Glaucoma ??? Fibromyalgia ??? Osteoarthritis, multiple sites ??? Adult BMI 40.0-44.9 kg/sq m ??? Depression with anxiety ??? Calculi, ureter ??? Back pain ??? Mood disorder ??? Chronic pelvic pain in female ??? Unspecified dyspareunia ??? Endometriosis ??? Irritable bowel syndrome with diarrhea History of Present Illness: Persistent double vision and dizziness worsened with movement and can be variable. 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 NO known head trauma. H/o ear infections as child but no tinnitus now. Pt seen by neurology and psychiatry during hospital stay. Review of Systems: Review of Systems Past Medical and Surgical History: No past medical history on file. Past Surgical History: Procedure Laterality Date ??? ABDOMINAL EXPLORATION SURGERY 10/31/2004 b/l salpingectomy and removel enodmetrial implantsin cul de sac ??? APPENDECTOMY ??? CARPAL TUNNEL RELEASE Bilateral ??? CHOLECYSTECTOMY ??? HYSTERECTOMY, VAGINAL 05/12/2015 ??? PRO FREEING BOWEL ADHESION, ENTEROLYSIS N/A 03/22/2023 @LYSIS OF ADHESIONS, ABD. (WRVU 18.46) performed by Iram Borrero MD at [facility] OR ??? PRO LAP GASTRIC BYPASS/RENATO-EN-Y N/A 01/10/2023 @LAPAROSCOPIC GASTROPLASTY W/ RENATO-EN-Y CONSTRUCTION (WRVU 29.4) performed by [facility]at [facility] OR ??? PRO LAP, DIAGNOSTIC ABDOMEN N/A 03/22/2023 LAPAROSCOPY, DIAGNOSTIC, ABDOMEN (WRVU 5.14) performed by Iram Borrero MD at [facility] OR ??? PRO UPPER GI ENDOSCOPY, DIAGNOSTIC N/A 01/10/2023 EGD, UPPER GI ENDOSCOPY performed by Iram Borrero MD at [facility] OR ??? PRO UPPER GI ENDOSCOPY, DIAGNOSTIC N/A 03/05/2023 EGD, UPPER GI ENDOSCOPY (WRVU 2.09) performed by Iram Borrero MD at [facility] OR ??? PRO UPPER GI ENDOSCOPY, DIAGNOSTIC N/A 03/20/2023 EGD, UPPER GI ENDOSCOPY (WRVU 2.09) performed by Gerber Salomon MD at [facility] ENDOSCOPY Medications: Current Facility-Administered Medications Ordered in Epic Medication Dose Route Frequency Provider Last Rate Last Admin ??? thiamine (Vitamin B1) tablet 100 mg 100 mg Oral Daily Dick Bower MD 100 mg at 03/28/23 0942 ??? ondansetron ODT (Zofran-ODT) disintegrating tablet 4 mg 4 mg Oral Q8H [facility] Natalee Winn MD4 mg at 03/28/23 0628 ??? enoxaparin (Lovenox) (40 mg/0.4 mL) subcutaneous injection 40 mg 40 mg Subcutaneous Daily Natalee Winn MD 40 mg at 03/28/23 0941 ??? BUpivacaine (pf) (Marcaine) (2.5 mg/mL) 0.25% injection Once PRN Iram Borrero MD 7 mL at 03/22/23 1959 ??? meclizine (Antivert) tablet 25 mg 25 mg Oral TID PRN Natalee Winn MD 25 mg at 03/26/23 1111 ??? pantoprazole (Protonix) injection 40 mg 40 mg Intravenous Daily Natalee Winn MD 40 mg at 03/28/23 0941 ??? acetaminophen (Tylenol) (32.02 mg/mL) oral liquid 650 mg 650 mg Oral Q6H PRN Natalee Winn MD 650 mg at 03/27/23 1348 ??? prochlorperazine (Compazine) (5 mg/mL) injection 10 mg 10 mg Intravenous Q6H PRN Natalee Winn MD 10 mg at 03/22/23 0627 ??? sodium chloride 0.9 % (flush) (BD PosiFlush Normal Saline 0.9) flush 5 mL 5 mL Intravenous BID Natalee Winn MD 5 mL at 03/28/23 0942 ??? sodium chloride 0.9 % (flush) (BD PosiFlush Normal Saline 0.9) flush 5-20 mL 5-20 mL Intravenous Q1 Min PRN Natalee Winn MD ??? cyclobenzaprine (Flexeril) tablet 5 mg 5 mg Oral TID PRN Natalee Winn MD 5 mg at ??? FLUoxetine (PROzac) (4 mg/mL) oral liquid 20 mg 20 mg Oral Daily Natalee Winn MD 20 mg at03/28/23 0953 ??? propranoloL (Inderal) tablet 20 mg 20 mg Oral BID Natalee Winn MD 20 mg at 03/28/23 0941 ? ? sucralfate (Carafate) tablet 1 g 1 g Oral 4 Times Daily AC & HS Natalee Winn MD 1 g at 03/28/23 0627 ??? albuteroL (Proventil, Ventolin) (2.5 mg/3 mL) (0.083 %) nebulizer solution 2.5 mg 2.5 mg Nebulization Q6H PRN Natalee Winn MD ??? docusate sodium (Colace) capsule 100 mg 100 mg Oral BID Natalee Winn MD 100 mg at 03/27/233 ??? metoclopramide (Reglan) (5 mg/mL) injection 10 mg 10 mg Intravenous Q6H PRN Natalee Winn MD 10 mg at 03/20/23 0854 ??? glucose (Glutose) 40% oral geL 15-30 g of glucose Buccal Q30 Min PRN Natalee Winn MD Or ??? dextrose 10% infusion 250 mL Intravenous Q30 Min PRN Natalee Winn MD Or ??? glucagon (Glucagen) (1 mg/mL) injection solution 1 mg 1 mg Intramuscular Q30 Min PRN Natalee Winn MD No current [facility]-ordered outpatient medications on file. Prior To Admission Medications: Medications Prior to Admission Medication Sig Dispense Refill Last Dose ??? Oxytrol 3.9 mg/24 hr Patch Semiweekly Change 1 patch on the skin twice a week. Past Month ??? pantoprazole EC (Protonix) [address] tablet Take 20 mg by mouth daily. Past Week ??? sucralfate (Carafate) 1 gram tablet Take 1 tablet by mouth 4 times daily for 30 days. Crush tablet and take with small amount of liquid 120 tablet 0 Past Month ??? cholecalciferol, Vitamin D3, 50 mcg (2,000 unit) Capsule Take 1 capsule by mouth daily. Past Month ??? ondansetron ODT (Zofran-ODT) 4 mg Tablet, Rapid Dissolve Take 1 tablet by mouth every 8 hours as needed for Nausea. 20 tablet 0 03/19/2023 ??? Emgality Pen 120 mg/mL Pen Injector Inject 120 mg as directed every 30 days. Past Month ??? propranoloL (Inderal) 20 mg Tablet Take 20 mg by mouth 2 times daily. Past Month ??? lamoTRIgine (LaMICtal) 150 mg Tablet Take 150 mg by mouth 2 times daily. Past Month ??? cyclobenzaprine (Flexeril) 5 mg Tablet Take 5 mg by mouth 3 times daily as needed. Past Month ??? FLUoxetine (PROzac) 20 mg Capsule Take 20 mg by mouth Daily. Past Month ??? latanoprost (XALATAN) 0.005 % Drops Place 1 drop into both eyes nightly. 3 Past Week ??? [DISCONTINUED] omeprazole (PriLOSEC) [address] capsule Take 1 capsule by mouth 2 times daily for30 days. 60 capsule 0 ??? Certavite-Antioxidant 18-400 mg-mcg Tablet Take 1 tablet by mouth daily. Unknown ??? [DISCONTINUED] prochlorperazine (Compazine) 10 mg tablet TAKE ONE TABLET BY MOUTH THREE TIMES ADAY FOR 7 DAYS ??? [DISCONTINUED] polyethylene glycoL (Miralax) 17 gram/dose Powder Take 17 g by mouth daily. ??? [DISCONTINUED] acetaminophen (Tylenol) 650 mg/20.3 mL Solution Take 20.3 mLs by mouth every 6 hours as needed. ??? [DISCONTINUED] docusate sodium (Colace) 100 mg Capsule Take 1 capsule by mouth 2 times daily asneeded for Constipation. ??? [DISCONTINUED] oxybutynin (DITROPAN XL) 15 mg Tablet Extended Rel 24 hr 15 mg daily. ??? PROAIR HFA 90 mcg/actuation HFA Aerosol Inhaler Inhale 1 puff into the lungs every 6 hours as needed. 2 Unknown Allergies: No Known Allergies Family History: No family history on file. Social History and Habits: Social History Socioeconomic History ??? Marital status: Spouse name: Not on file ??? Number of children: Not on file ??? Years of education: Not on file ??? Highest education level: Not on file Occupational History ??? Not on file Tobacco Use ??? Smoking status: Never ??? Smokeless tobacco: Never Vaping Use ??? Vaping Use: Never used Substance and Sexual Activity ??? Alcohol use: Not Currently ??? Drug use: Not Currently ??? Sexual activity: Not on file Other Topics Concern ??? Not on file Social History Narrative ??? Not on file Social Determinants of Health Financial Resource Strain: Not on file Food Insecurity: Not on file Transportation Needs: Not on file Physical Activity: Not on file Housing Stability: Not on file Exam: Base Eye Exam Visual Acuity (Snellen - Linear) Right Left Dist sc 20/30 20/50 Dist ph sc NI 20/40 Near cc 20/20 20/20 Pt here for DOC visit for sudden onset of diplopia x 10 days Wearing patch on either eye since. Has glasses but not with her ERIN 5 months ago, Dr. Ramirez in [place], [place] Near with +2.00 LL Tonometry (iCare, 2:36 PM) Right Left Pressure 13 12 Pupils Dark Light Shape APD Right 4 2 Round None Left 4 2 Round None Visual Stovall Left Right Full Full Extraocular Movement Right Left Full, Ortho, Nystagmus Full, Ortho, Nystagmus Neuro/Psych Mood/Affect: Apathetic Strabismus Exam Method: Alternate Cover, Cover-Uncover Correction: ri Observations: Ortho Distance Near Near +3DS N Bifocals Ortho Ortho - - - - - - - - - - - - Ortho - - - - Ortho - - - - Ortho - - - - - - - - - - - - R Tilt L Tilt Nystagmus: Yes: Rotary nystagmus Fine very low amplitude, moderate frequency oscillating rotary nystagmus increased on end gaze or after movement; variable - initially seen with naked eye but later best seen at slit lamp. Slit Lamp and Fundus Exam External Exam Right Left External Normal Normal Slit Lamp Exam Right Left Lids/Lashes Normal Normal Conjunctiva/Sclera White and quiet White and quiet Cornea Clear Clear Anterior Chamber Deep and quiet Deep and quiet Iris Round and reactive Round and reactive Lens Clear Clear Fundus Exam Right Left Vitreous Normal Normal Disc Normal Normal Macula Normal Normal Vessels Normal Normal Periphery Normal Normal Diagnostic Tests/Procedures Ordered: MRI FINDINGS: Brain: ?? There are a few scattered punctate nonspecific T2 hyperintensities in subcortical supratentorial white matter, within normal limits for age. Otherwise no abnormal brain parenchymal signal, susceptibility or restricted diffusion. No abnormal brain parenchymal, leptomeningeal or pachymeningeal enhancement. No midline shift, mass effect, hydrocephalus or extra-axial collection. Midline structures are normal. Foramen magnum and basilar cisterns are patent. Normal marrow signal. Expected intracranial vascular flow voids are preserved. Paranasal sinuses are clear. Minimal left greater than right mastoid fluid. ?? Orbits: ?? No abnormal signal or enhancement of the optic nerves. Globes are normal. Extraocular musculature is normal. No intraorbital inflammatory changes or mass. ?? IMPRESSION 1. Normal brain. 2. Normal orbits. Assessment: Leandra Wilks is a 43 y.o. Female with diplopia and dizziness in setting of MRI Brain/ Orbit deemed normal. Subtle and variable Rotary Nystagmus/Oscillopsia: DDx includes medications, inner ear conditions, CALL SPECIALIST disease in absence of any reported h/o trauma. This could be a self limited condition, but warrants follow up with neurology and consultation with ENT to r/o any inner ear condition/meniere's disease. Mild Myopia - would benefit from use of glasses as d/w Leandra Recommendations: Consider ENT evaluation for vertigo/inner ear disease Continue to follow with neurology to assess nystagmus and suggest re-imaging brain for any evolvingscenario. If symptoms persist and unexplained by ENT or neurology, consider consultation with neuro-ophthalmology in future. Encouraged patient to resume wear of glasses as this could diminish some of the already subtle nystagmus/oscillopsia. Consult service will continue to follow patient. x Recommendations are above, please page if further consultation required. Lizbeth Pan MD 03/28/2023 * Care Management - Iris Cash RN - 03/27/2023 10:42 AM EDT Based on discussions with the multi-disciplinary healthcare team, the patient would benefit from SNF / Swing level of care at discharge. I have met with the patient to: ?? discuss discharge planning needs. ?? provide the [facility], Office of Care Management letter from the Representative Government Relations pertaining to rehabreferrals. ?? provide a letter describing our affiliations within the [facility] and educate about their right to choose where referrals are sent. ?? provide the CMS Star Quality Rating handout. ?? review the different levels of rehab including SNF, swing, and acute. ?? provide a list of facilities within their preferred geographic area. ?? request that they provide at least three choices for referral. They have requested referrals to: [facility] ([facility]) ([facility]) [address] [place] [address] (Accepts pts only after exhausting all other local SNF options Only pts from their area with PCP at the Hospital Maximum rehab stay of 5 days) [facility] ([facility]) [address] [place] [address] [id number] [facility] [address] [place] [address] Note routed to a Nutrition Instructor who will communicate referrals to facilities and provide any required information. Addendum: Call placed to [facility], no beds, [facility] no beds, [facility]. * Consult Note - Jessica Haywood [facility] - 03/27/2023 10:40 AM EDT K[facility] (Behavioral Intervention Team) [facility] stopped to see this patient today. She said that she's not feeling well and still having dizziness. She said that's really the only thing on her mind right now. She is distressed that the medication didn't seem to make a big difference and she's wondering when she will have relief. Provided patient with support and respected that she is mainly focused on her physical difficultiestoday. Will continue to follow during this admission for support. Jessica Haywood MA, [facility] Mental [facility] - [facility] (Behavioral Intervention Team) Dept. of Psychiatry - Inpatient Psych. Services Pager: [phone] * Consult Note - Maximo Moreno MD - 03/26/2023 4:49 PM EDT Clinical Pharmacology Service March [address] Moreno covering service Our service was contacted this afternoon by Dr. Ana Oneil on the general surgery service, to help render advice about the possible role that Lamictal (lamotritine) might be playing in the patient's acute problem of nausea, vomiting, nystagmus, and double vision, and when or whether it can or should be be restarted. I reviewed chart and examined patient this afternoon. Patient is a 43 yo woman who, in short version, was admitted on March 18 for increasing abdominal pain, nausea, and vomitin (but not double vision). She had been operated on January 10 with weight reduction surgery, and had gradually developed epigastric abdominal pain, intolerance of food or liquids, nausea, and then vomiting. She had been chronically taking lamotrigine 150 mg po for about 3 years (from her view) for unclear indications, and she stopped this drug about 1-2 weeks prior to admission, without any obvious change in her complaints above. (She denied prior history of a seizure disorder, and thinks the drug was prescribed for a mood disorder). About 2-3 weeks prior to admission, she tells me that she gradually developed N,V, and in increase in her epigastric abd pain. About one week prior to admission, she says the abd pain b gail more cramping in quality and more severe, sometimes sharp, rating it up to 7/10, in her mid-abdomen, with N and V.Omeprazole was started at that time. Prior medical problems had included a mood disorder (as above), depression, and obesity, but not bipolar disorder or epilepsy to her knowledge. She was admitted on March 18, and on admission the lamotrigine was begun again at the same dose of 150mg po qd. On March 21, this dose was reduced to 25 mg po bid, through March 25, on which date it was discontinued. An eye patch has made the double vision better, and today she still has some nausea but has not vomited today (improved from yesterday). Relevant drugs in the MAR as of today include fluoxetine 20 mg qd for depression, ondansetron 4 mg po q8h for nausea and vomiting, pantoprazole 40 mg IV qd for likely ulcer, and propranolol 20 mg po bid. On my exam today, I note: Recent VS: T 37.3, HR 81, BP 139/84, RR 18, sat 100% on RA. Gen: Patient is awake, alert, sitting up in cardiac chair sipping liquid, and wearing black eyepatch covering R eye Neuro: Patient is awake, alert, and able to answer questions promptly and quickly. Speech is normal. Without eye patch, there is mild horizontal nystagmus in both eyes, and double vision returns immediately per patient. Pupils are about 4 mm each, and reactive to light. With eye patch replaced, shefeels the nausea is less, worse when eye patch is removed.There is no facial droop. Arm strength is4+/5, both arms. Labs today are remarkable for: BUN 4, TP 5.7, mild transaminitis, ESR 16, Hb 11.4 (following recentsurgery). A lamotrigine level was sent, but will likely take a day or more to return (about 36 hours after last reduced dose). Relevant drugs in [facility] active today: include Fluoxetine 20 mg po qd Ondansetron 4 mg po q8h prn nausea Pantoprazole 40 mg IV qd Propranolol 20 mg po qd Lamotrigine was discontinued yesterday morning Impression: It is not clear to me, after speaking with patient, what the indication might have beenfor the lamotrigine initially, but she had been on that without problems for quite some time. She stopped that drug as her abdominal pain had increased in the several weeks prior to admission, and she did not note any eye problems when she discontinued it. It was suspected that she might have an ulcer, as her N,V, and abd pain increased, and she was begun on omeprazole prior to admission. After being off the lamotrigine for 1-2 weeks prior to admission, it was begun again at its prior dose, 150 mg po bid. Her N and V also increased (it had started earlier), and it was noted that she had developed nystagmus and double vision as well. The eye patch definitely improved her double vision. According to the bellows tester's information, lamotrigine (uma at higher doses) can cause vomiting in 5-9% of patients, dizziness in 7%, nystagmus in 2-5%, and visual disturbance (including double vision) in up to 2-5%. Thus it is a viable hypothesis that after her lamotrigine was stopped a week or two prior to admission, and then resumed after that break at that relatively high dose, all of theseneuro side effects could have been increased right at the time of admission. The epigastric pain, N, and V were likely related to the ulcer that was found after admission, but the nystagmus, N, and Vcould well be partially drug related, and seem to be somewhat better (less nausea, NO vomiting today) since that drug was held yesterday (dose reduced on 03/21, and drug stopped on 03/25 at 8:30 AM). Since patient is unclear what the indication was for the lamotrigine, and it seems likely (not definite) that it was contributing (along with her GI issue) to her abd main, nausea, and vomiting, and likely causing the nystagmus and double vision, I don't see the need to resume that drug at this point. Since patient denied to me a prior history of bipolar disorder or partial seizures, it's not clear to me that she would need to have this drug restarted. In patients with known epilepsy, it is recommended to taper the drug, rather than to stop it abruptly, but patient does not (to our knowledge)have epilepsy, and she discontinued it herself several weeks ago without developing seizures, and her recent dose for several days was reduced. I am available on pager [phone] if I can help further. This is definitely a challenging case, but I think it is likely that the lamotrigine is contributing or causing to the nystagmus and double vision,and possibly contributing to the nausea and vomiting that patient has had as well. Maximo Moreno MD Pager [phone] * Care Management - Corey Wick RN - 03/25/2023 11:25 AM EDT OFFICE OF CARE MANAGEMENT PROGRESS NOTE LOS: Hospital Day 7 days Chart reviewed, care reviewed with primary team and at interdisciplinary rounds. Patient continues to meet inpatient level of care related to: gastric bypass cb nausea, blurry vision and dizziness Decision Maker: Self Functional status prior to admission: Independent Home Environment: Others in the home: significant other. Current Living Arrangements: home/apartment/condo. Accessibility Concerns: second floor apartment, FOS to manage. Current Functional Ability: Independent DME used at home: none DME Needed at Discharge: No Patient is insured through: Primary Insurance: MEDICAID [place] Payor: [place]ICA[place] / Plan: MEDICAID [place] PRIMARY CARE PLUS / Product Type: *No Product type* / Secondary Insurance: N/A Last Physical Therapy Recommendation: with Last Occupational Therapy Recommendation: to be determined pending medical status & functional progression, home with supervision with to be determined Plan for discharge is: Pending Hospital Course and PT/OT Recommendations Outpatient Agency/Support Group Needs: None Agency Referrals: Based on discussions with the multi-disciplinary healthcare team, the patient would benefit from Acute Rehab level of care at discharge. I have met with the patient to: ?? discuss discharge planning needs. ?? provide the [facility], Office of Care Management letter from the Representative Government Relations pertaining to rehabreferrals. ?? provide a letter describing our affiliations within the [facility] and educate about their right to choose where referrals are sent. ?? provide the CMS Star Quality Rating handout. ?? review the different levels of rehab including SNF, swing, and acute. ?? provide a list of facilities within their preferred geographic area. ?? request that they provide at least three choices for referral. They have requested referrals to: [facility] Inpatient Rehabilitation Unit - [facility] [address], [place] [address] [facility] Acute Rehabilitation and Sub-Acute (Swing) Rehab Levels of Care [address] [place] [address] Note routed to a Nutrition Instructor who will communicate referrals to facilities and provide any required information. Transportation: family or friend will provide Barriers to discharge: Discharge planning Psych: Adjustment to diagnosis/illness Plan going forward: pt was seen by psychiatry and neurology. Not physiological reason for her nausea symptoms per attending note. Will have PT/OT see pt due to her not getting OOB. Will discuss dispoplanning after therapy recs are placed. Care Management will continue to follow and assist with discharge planning and coordination of care as indicated. Addendum: Seen pt with Sherrell GAINES to discuss plan of care. PT advised at this time pt would benefit from acute rehab. Received 2 choices and made pt aware that [place] only had 2, [facility] and [facility]. Pt agreed to placing both. Anticipated Date of Discharge: 03/29/2023 Isak STEPHENS, RN CM Case Management [phone] * Consult Note - Jessica Haywood [facility] - 03/25/2023 10:40 AM EDT [facility] Evaluation (Behavioral Intervention Team) Referral source: Follow up Reason for referral: Other: coping support Relevant history: Patient stated that she feels a bit better when she uses her eye patch though she's still struggling with ongoing dizziness and nausea. She said that she keeps wondering when she'll feel better and then she reminds herself that she won't be left to feel this badly for the rest of her life. She feels that she's coping as well as she can under the circumstances. Patient said that she is not worried about how things are being taken care of at home while she's in the hospital. She stated that the main thing she's worried about at this time is how unwell she feels physically. She acknowledged that she has felt unwell to varying degrees since her original surgery. [facility] encouraged patient to discuss stressors and emotional health - validated how difficult itis to persistently feel unwell. Assessment: Patient was awake and alert, sitting up in her bed, during this encounter. Her main concern right now is her physical symptoms and she feels ok from a mental health perspective per her report. This patient may not feel comfortable divulging other stressors or mental health challenges at this time though we understand from her record that she has historically had difficulties. Fortunately, she hasan established therapist for ongoing mental health treatment. Interventions delivered: Supportive therapy Plan: 1. [facility] to continue to follow for support during admission 2. Recommend patient continue with her established outpatient mental health counseling Time spent with the patient (min):15 minutes Time spent on case coordination (min): 10 minutes Jessica Haywood MA, [facility] Mental [facility] - [facility] (Behavioral Intervention Team) Dept. of Psychiatry - Inpatient Psych. Services Pager: [phone] * Consult Note - Fernando Giles MD - 03/25/2023 10:07 AM EDT Psychiatric Inpatient Consultation Follow Up Note Time of Consultation: 11:30 AM Reason for consultation: FTT, low appetite, disordered eating Information Sources: Patient. Electronic Medical Record. Chief Complaint (in patient's own words): I feel better! Interim History: - Tolerated lap ex well; no significant findings - Neuro consult for ongoing dizziness and nystagmus, MRI normal - Nausea mildly improved, 20cc po intake / 24h - States abdominal pain unchanged (05/27) - Dizziness largely unchanged, slight improvement in double vision with eye patch alternating - Taking po medications Spoke with the patient today, who is feeling better today than at [facility] She states that she continues to have appetite that is limited by her nausea. She thinks that she is currently eating ~50% of each meal, when she was only having 0-25% previously. She ascribes her anti-nausea medications as the reason she is able to tolerate foods, in addition to having smaller, bite sized pieces of food so they do not get stuck in her throat/stomach. She feels that, if given enough time with her current plans, that she will get back to 100% of meals eaten shortly. Shedoes not feel that medications to augment her appetite would be helpful at this time. She endorses good mood and denies all other psychiatric symptoms. She does continue to endorse improving neurological symptoms of diplopia and gait instability, but they have improved someone since onset. Independent Collateral: Review of Systems: Psychiatric: See above Physical Exam: Last value Range last 24 hrs Temperature Temp: 36.9 ??C (98.4 ??F) Temp: [36.8 ??C (98.2 ??F)-37.2 ??C (99 ??F)] Heart Rate Heart Rate: 72 Heart Rate: [72] Blood Pressure BP: 105/66 BP: (105-128)/(66-85) Respiratory Rate Resp: 18 Resp: [16-18] SpO2 SpO2: 94 % SpO2: [94 %-99 %] Mental Status Examination: Musculoskeletal System: ??? Muscle Strength/Tone (note atrophy, abnormal movements): Normal ??? Gait and Station: Not examined Psychiatric: ?? Appearance: age appropriate, casually dressed, well groomed and overweight Behavior: cooperative with the interview, calm and good eye contact ?? Speech: normal pitch, normal volume, normal rate and normal rhythm ?? Language: fluent in greenlandic, without paraphasic errors and without word finding difficulty ?? Mood: Good Affect: bright, mood-congruent and and notably better than previous exam ?? Thought Process: linear, logical and concrete ?? Associations: intact ?? Thought Content: no homicidal ideation no suicidal ideation Perception: denied auditory hallucinations denied visual hallucinations not observed responding to internal stimuli ?? Orientation: grossly intact by interview ?? Attention/Concentration: grossly intact Cognition: grossly intact by interview ?? Memory: recent and remote memory grossly intact ?? Fund of Knowledge: appropriate for age and level of functioning ?? Insight: limited ?? Judgment: fair Pertinent Diagnostic Testing (include your own review/interpretation of results): Last 3 wbc, hgb, hct plt Recent Labs 03/25/2333003/24/23 03503/23/23 0807 WBC 8.4 6.8 9.0 HGB 10.8* 10.5* 10.2* HCT 32.8* 31.5* 30.2* PLATELET 291 268 268 Last 3 Lytes Recent Labs 03/25/23 03303/24/23 0551 03/24/23 03503/23/23 0339 NA 138 -- 141 139 K 3.4* 3.4* Not Perf 4.3 CL 100 -- 104 103 CO2 22 -- 29 27 BUN 3* -- 5* 6* CREATININE 0.61* -- 0.65* 0.61* Last 3 LFTs Recent Labs 03/25/23 03303/24/23 0551 03/24/23 0351 03/23/23 0339 03/21/23 0346 03/20/23 0232 03/18/23 1549 AST 43* 54* Not Perf 39* < > 42* 74* ALT 42* 41* Not Perf 37* < > 57* 87* ALKPHOS 115* -- 103 107* < > 111* 152* BILITOT 0.6 -- 0.7 0.7 < > 1.0 1.4* BILIDIR -- -- -- -- -- 0.4* 0.6* < > = values in this interval not displayed. Last Ca, Mg, Phos Recent Labs 03/25/23 033 CALCIUM 8.8 PHOS 3.4 MAGNESIUM 0.67* Last 3 TFT No results for input(s): TSH in the last 7068 hours. Invalid input(s): T4, FT4 Results for orders placed or performed during the hospital encounter of 03/18/23 XR Fluoro Barium Swallow (Double Contrast) (Exam End: 03/19/2023 1:22 PM) Narrative EXAMINATION: XR FLUORO BARIUM SWALLOW (DOUBLE CONTRAST) CLINICAL HISTORY: s/p RNY gastric bypass with PO intolerance please eval for dysmotility TECHNIQUE: Double contrast esophagram was performed. Fluoroscopic spot films were obtained. Fluoro time: 0.67 minutes COMPARISON: Outside CT of the pelvis February 2023 FINDINGS: Examination limited because patient tolerated only 2 swallows of barium. The esophagus is normal in course and caliber, and is well distended on double contrast views. The mucosal pattern is normal. There is a small sliding hiatal hernia. Esophageal peristalsis is normal. . Contrast passes rapidly into the gastric fundal pouch and through the gastrojejunal anastomosis into small bowel segments without delay or dilatation. Impression 1. Exam limited because only 2 swallows were completed. 2. No obstruction or intestinal dilatation and normal appearance of fundal pouch. Contrast passes rapidly through the gastrojejunal anastomosis into small bowel segments. 3. Small sliding hiatal hernia. Thank you for letting us participate in the care of this patient. If you are a health care provider and have any questions regarding this report, please contact the number below. For patients who have questions please contact the health direct care staffer that requested your imaging first. Electronically signed by: Poppy Webster MD, [facility] ([phone]), at 03/19/2023 1:29 PM MRI Cholangiopancreatography WO Contrast (Exam End: 03/19/2023 5:40 PM) Narrative EXAMINATION: MRI CHOLANGIOPANCREATOGRAPHY WO CONSTRAST CLINICAL HISTORY:43-year-old female status post Renato-en-Y gastric bypass with abdominal pain and multiple CT examinations and endoscopy. Past medical history of morbid obesity, GERD, obstructive sleep apnea, bowel syndrome, and depression. Dysphagia. Nausea and vomiting. Abdominal pain. TECHNIQUE: Noncontrast MRCP was performed. 3D MIPS were created. COMPARISON: Correlation is made to multiple prior CT of the abdomen and pelvis examinations, the most recent of which is dated March 13, 2023 FINDINGS: Limitations: Lack of intravenous contrast limits evaluation of the visceral organs, gastrointestinal tract, and vascular structures. 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 Inferior thorax: Visualized structures within the inferior thorax are within normal limits. Liver: Normal. Bile ducts: There is a beaded-strictured appearance of the central intrahepatic biliary ducts with stricturing at the confluence of the intrahepatic biliary ducts extending into the cranial aspect of the common hepatic duct. The remainder of the common hepatic duct and common bile duct are normal in course and caliber. There are no intraluminal filling defects. Gallbladder: The gallbladder is surgically absent with surgical clips within the gallbladder fossa. There is a cystic duct remnant. Pancreas: Normal signal intensity. Pancreatic duct: Normal caliber and configuration. Spleen: Normal size and signal intensity. Adrenal glands: Normal. Kidneys: There are a few scattered sub-5 mm T2 hyperintense likely tiny renal cysts. Bowel and mesentery: Limited evaluation of the distal esophagus is unremarkable. The stomach is under distended, limiting evaluation. There are postsurgical changes from prior Renato-en-Y gastric bypass. There are no dilated segments of small or large bowel where visualized. Lymph nodes: There are no pathologically enlarged lymph nodes. Osseous structures: No focal marrow signal abnormality. Impression Beaded-strictured appearance of the intrahepatic biliary ducts extending into the most cranial aspect of the common hepatic duct. Differential diagnosis would include primary sclerosing cholangitis (PSC) (most commonly), ischemic cholangiopathy, HIV-associated cholangitis, chemotherapy-induced cholangitis, IgG4 disease, amongst others. Thank you for letting us participate in the care of this patient. If you are a health care provider and have any questions regarding this report, please contact the number below. For patients who have questions please contact the health direct care staffer that requested your imaging first. Electronically signed by: Maximo [facility] ([phone]), at 03/20/2023 7:[address] Head wo Contrast (Generic) (Exam End: 03/21/2023 12:34 PM) Narrative EXAMINATION: CT HEAD WO CONTRAST (GENERIC) CLINICAL HISTORY: dizziness s/p gastric bypass surgery with no intra-abd explanation. eval for intra-cranial tumor TECHNIQUE: CT head performed without intravenous contrast administration. COMPARISON: None FINDINGS: There is no acute intracranial hemorrhage or mass effect. There is no extra axial collection or ventricular dilation. There is no acute confluent ischemic infarct. There are no osseous or extracranial soft tissue lesions identified. No evidence of significant inflammatory sinonasal or mastoid disease. Impression Normal brain CT. Thank you for letting us participate in the care of this patient. If you are a health care provider and have any questions regarding this report, please contact the number below. For patients who have questions please contact the health direct care staffer that requested your imaging first. Electronically signed by: Erlin Castorena [facility] ([phone]), at 03/21/2023 12:49 PM MRI Orbit wwo Contrast (Exam End: 03/24/2023 11:16 AM) Narrative EXAMINATION: MRI BRAIN WWO CONTRAST (GENERIC), MRI ORBIT WWO CONTRAST CLINICAL HISTORY: Dizziness, non-specific dizziness, diplopia, rule out stroke? (accession [id number]), right eye weakness, diplopia, concern for possible inferior rectus infiltration or inflamation vs. possible optic neuritis (accession [id number]). Right-sided weakness, diplopia, concerning for possible inferior rectus infiltration or inflammation versus possible optic neuritis. TECHNIQUE: MRI of the brain and orbits was performed before and after the intravenous administration of 16cc Dotarem. COMPARISON: CT head March 21, 2023 FINDINGS: Brain: There are a few scattered punctate nonspecific T2 hyperintensities in subcortical supratentorial white matter, within normal limits for age. Otherwise no abnormal brain parenchymal signal, susceptibility or restricted diffusion. No abnormal brain parenchymal, leptomeningeal or pachymeningeal enhancement. No midline shift, mass effect, hydrocephalus or extra-axial collection. Midline structures are normal. Foramen magnum and basilar cisterns are patent. Normal marrow signal. Expected intracranial vascular flow voids are preserved. Paranasal sinuses are clear. Minimal left greater than right mastoid fluid. Orbits: No abnormal signal or enhancement of the optic nerves. Globes are normal. Extraocular musculature is normal. No intraorbital inflammatory changes or mass. Impression 1. Normal brain. 2. Normal orbits. Thank you for letting us participate in the care of this patient. If you are a health care provider and have any questions regarding this report, please contact the number below. For patients who have questions please contact the health direct care staffer that requested your imaging first. Electronically signed by: Lorie Coe MD, [facility] ([phone]), at 03/24/2023 12:20 PM MRI Brain wwo Contrast (Generic) (Exam End: 03/24/2023 11:16 AM) Narrative EXAMINATION: MRI BRAIN WWO CONTRAST (GENERIC), MRI ORBIT WWO CONTRAST CLINICAL HISTORY: Dizziness, non-specific dizziness, diplopia, rule out stroke? (accession [id number]), right eye weakness, diplopia, concern for possible inferior rectus infiltration or inflamation vs. possible optic neuritis (accession [id number]). Right-sided weakness, diplopia, concerning for possible inferior rectus infiltration or inflammation versus possible optic neuritis. TECHNIQUE: MRI of the brain and orbits was performed before and after the intravenous administration of 16cc Dotarem. COMPARISON: CT head March 21, 2023 FINDINGS: Brain: There are a few scattered punctate nonspecific T2 hyperintensities in subcortical supratentorial white matter, within normal limits for age. Otherwise no abnormal brain parenchymal signal, susceptibility or restricted diffusion. No abnormal brain parenchymal, leptomeningeal or pachymeningeal enhancement. No midline shift, mass effect, hydrocephalus or extra-axial collection. Midline structures are normal. Foramen magnum and basilar cisterns are patent. Normal marrow signal. Expected intracranial vascular flow voids are preserved. Paranasal sinuses are clear. Minimal left greater than right mastoid fluid. Orbits: No abnormal signal or enhancement of the optic nerves. Globes are normal. Extraocular musculature is normal. No intraorbital inflammatory changes or mass. Impression 1. Normal brain. 2. Normal orbits. Thank you for letting us participate in the care of this patient. If you are a health care provider and have any questions regarding this report, please contact the number below. For patients who have questions please contact the health direct care staffer that requested your imaging first. Electronically signed by: Lorie Coe MD, [facility] ([phone]), at 03/24/2023 12:20 PM Film Library- Storage Only Ultrasound Study (Exam End: 02/25/2023 12:00 AM) Narrative This exam is auto-finalizing. It's purpose is for storage only. Film Library- Storage Only CT Abdomen & Pelvis (Exam End: 03/13/2023 12:00 AM) Narrative This exam is auto-finalizing. It's purpose is for storage only. External Record Review (include your own review of external notes from any unique sources): 03/22 neurological exams: Vertigo began 03/18, is non-positional, constant, improved when eyes are closed, not associated with headache or neck pain. Examination remarkable for worsened diplopia with lateral inferior gaze and horizontal nystagmus, otherwise nonfocal examination. Orthostatics within normal range. Considering acute onset vertigo and diplopia 4 days ago recommend MRI brain for evaluation of pontine infarct, though would be unusual to resolve with eyes closed. Etiology of diplopia unclear, worsened direction implies weakness of left inferior rectus though other left CN III muscles spared. For symptomatic management recommend trial of scopolamine patch vs meclizine. Further recommendations pending MRI. 03/23 neurological exams: Examination remarkable for limited movement of right inferior rectus today, opposite from examination yesterday. Differential includes ischemic or inflammatory pathology in brain stem vs possible structural pathology of right inferior rectus Assessment: Leandra Wilks??is a 43 y.o.??female??with a psychiatric history of PTSD, depression, MADY and medical history significant for morbid obesity, GERD, CHNU, IBS and laparoscopic renato en y gastric bypass on 01/10/23 who has struggled with dysphagia and abdominal pain since surgery who presents 03/18/23 with continued dysphagia, nausea/vomiting and abdominal pain. Biologically, she has an unknown genetic predisposition to mental illness, no substance use, treatment-resistant disease necessitating psychotropic polypharmacy and multiple comorbid medical conditions, including obesity, HTN, IBS. Psychologically, she has low self- esteem, a shortage of psychological mindedness, few healthy coping skills, minimal distress tolerance or cognitive flexibility, an unstable sense of self and a history of trauma, abuse, or neglect. Socially, she has significant social supports, stable and positive relationships with loved ones, significant financial stressors, stable housing and strong relationships withtheir treatment team. Based off these factors, clinical history, and mental status exam, Leandra Wilks meets diagnostic criteria for Anxiety, NOS based off of the DSM-V criteria. The differential includes Major Depressive Disorder, Generalized Anxiety Disorder and Specific Phobia, cPTSD and Somatic Symptom Disorder, Functional Neurological Disorder/Conversion disorder. ?? In the absence of medical findings on multiple examinations and imaging, the patient continues to have refractory nausea and vomiting. We have been asked to see her for a psychological component to her presentation. The patient does not meet criteria for a major depressive disorder, although she ispresenting with multiple SIGECAP symptoms, she does not identify as being depressed and her symptoms can be explained by a medical cause. She does endorse a history of anxiety and disordered eating, that may have risen to the level of bulimia nervosa, and is currently exhibiting thought patterns that are concerning for a heightened level of anxiety surrounding food intake. Likely, there is a compo nent of somatization and/or conversion but it may not explain her persistent symptoms and comorbid neurological symptoms. Her neurological symptoms may be explained by the use of high dose lamotrigine after 3+ weeks off of it, but these current symptoms can also be an exacerbation of possible nutritional deficiencies related to her poor PO intake and renato-en-Y procedure. We recommend investigation of nutritional deficiencies and empirical oral treatment with thiamine, folate, B12, and niacin that may need to be converted to IV if profound deficiencies are appreciated. In the future, I would consider mirtazapine and gabapentin for anxiety/appetite treatment, if no further findings in ex-lap ?? 03/25/23 Patient appears brighter and is more focused and engaged than previous visit, which is likely related to improved nutritional status and gradual reduction in serum lamotrigine levels. She continues to struggle with eating, but it does not appear to be related to a lack of appetite, but rather pronounced nausea. She reports improvement with the use of anti-emetics, which has been demonstrated in improved eating habits. There is likely a psychological component that is influencing her eating patterns, as she notes that the fear of choking on her food has lessened, but this will be more appropriately addressed in the outpatient setting. Continued improvement should also be seen with Prozac and Lamictal that are now re-incorporated into her regimen. Likely, increases in Prozac in outpatient setting to anorexia/bulemia doses of 80-100 mg may be warranted. We would recommend scheduled anti-emetics (if QTc <500) and monitor for improvement in symptoms. Eventually, the goal will be to taper to PRN basis. Additionally, would continue to workup underlying nutritional deficiencies that are common to post-gastric bypass surgeries, like Vitamin A, Vitamin D, iron studies, and vitamin B6 (inaddition to already collected B1, B9, and B12). We will continue to follow and work with surgical team to create sustainable outpatient plan for timely discharge. Diagnoses (chronic, acute, include progression/severity): Anxiety, NOS R/o FND or conversion d/o R/o nutritional deficiencies PTSD Plan/Recommendations: - Continue Lamictal 25 mg QD for 2 weeks (since 03/21) and then increase to 25 mg BID - Monitor for emergence of rash - particularly if involving mucosal areas ocular/oral/urogenital areas - consult Derm if concern for SJS/TEN - continue prozac 20 mg QD, consider increasing in outpatient setting after 3-4 weeks (started 03/21)to 40 mg if anxiety remains - Laboratory w/u with vitamins folate, Vit D, iron panel, vitamin A, vit B6 - Convert IV thiamine 500 mg TID to oral thiamine 100 mg QD - Consider scheduled anti-nausea medications around meal times to enhance PO intake - Please obtain EKG for QTc as reglan and zofran can prolong QTc - BIT following Patient on IEA Status? IEA: NO, patient is not on IEA and does not have any psychiatric contraindication to discharge at the time of this assessment. Recommendations were communicated to primary senior engineering team leader Dick Bower. Fernando Giles MD 03/25/2023 Coding Determination 1. Problems/Diagnosis (check one): Low Minimal refers to a single minor problem. Example: Poor sleep due to noise in the hospital room. Low refers to two minor problems, or one stable/uncomplicated illness. Examples: Major depression in remission; adjustment disorder with depressed mood. Moderate refers to one illness with new onset, progression, exacerbation, complication, or side effects; or two stable problems. Examples: Recurrent major depression with exacerbation or progression or side effects of treatment; stable schizophrenia and alcohol use disorder; acute alcohol withdrawal; anorexia with systemic symptoms such as bradycardia. High refers to one chronic problem with severe progression, exacerbation, or side effects; or one problem with threat to life or bodily function. Examples: any psychiatric illness with suicidal or homicidal ideation or thoughts of self- harm; delirium; any eating disorder with severe medical consequences; major depression with significant functional decline; any severe side effects of psychiatric interventions (NMS, hyponatremia, lithium toxicity syndrome, etc); any psychiatric illness meeting the severe specifier. 2. Data Review/Analysis (check one): Low Low refers to (1) review of notes and test results or (2) assessment from a collateral source. Moderate requires one of the following: ??? All three of the following: review of notes, review of test results, assessment from a collateral source. ??? Discussion of test interpretation or management with an external physician/provider (primary team included). High requires both of the following (same options from Moderate above): ??? All three of the following: review of notes, review of test results, assessment from a collateral source. ??? Discussion of test interpretation or management with an external physician/provider (primary team included). 3. Patient Risk (check one): Minimal Minimal refers to minimal risk from additional testing/treatment. Example: Bereavement. No medications recommended. Low refers to low risk from additional testing/treatment. Example: only interventions are minimallyinvasive or otherwise low risk (serum labs, melatonin, continuing an SSRI). Moderate refers to moderate risk from additional testing/treatment. Examples: starting prescriptionmedication with only moderate risk. Moderate also includes diagnosis or treatment significantly limited by social determinants of health such as food/housing insecurity, transportation issues, financial limitations, etc. High refers to high risk from additional testing/treatment. Examples: therapies requiring monitoring of serum level (lithium, valproate), medications with specific identified risks (QTc-prolonging medications in certain patients, SSRIs in patients with risk of bleeding). Discussions of higher levels of psychiatric intervention/care (1:1 sitter, voluntary psychiatric hospitalization, IEA, ECT). Patients who may require medical interventions against their wishes when they lack capacity to refuse those interventions; patients who lack capacity to choose to leave the hospital AMA. Discussion of high risk interventions that may be necessary to ensure safety (parenteral medications for managementof agitation; restraints; security presence). Risk of acute withdrawal. Complexity of MDM Determination: Choose the appropriate level in the first 3 columns based upon what you indicated above. Then 2 outof 3 elements must be met to qualify for the highest appropriate level of complexity. Problems/Diagnosis Data Review/Analysis Patient Risk Complexity of Medical Decision-Making CPT CODE [] Minimal/Low [] Low [] Minimal/Low [] Low 10932 [] Moderate [] Moderate [] Moderate [] Moderate 80813 [] High [] High [] High [] High [id number] Final Coding Determination: Straightforward/low Associated attestation - Carlito Parrish MD - 04/05/2023 2:33 PM EDT Psychiatry Attending Note I discussed this patient's situation with the resident but did not see the patient. I contributed to the formulation and treatment planning as documented in the resident's note. Carlito Parrish MD Psychiatry Consultation Pager: [phone] * Consult Note - Varsha Topete APRN - 03/24/2023 9:46 AM EDT Images from the original note were not included. Vascular Neurology Consult Note Patient name:Leandra Wilks Date of :1980 Admit date: 03/18/2023 Attending: Dr. Flores ID: Leandra Wilks is a 43 y.o. female??with medical history significant for morbid obesity, GERD, CHUN, IBS, depression and laparoscopic renato en y gastric bypass on 01/10/23 who has struggled with dysphagia and abdominal pain since surgery who presents 03/18/23 with continued dysphagia, nausea/vomiting and abdominal pain. Neurology consulted for evaluation of dizziness and binocular diplopia. Interval Hx - poor PO intake, ongoing N/V, dizziness - utilizing eye patch with some symptom relief per chart - Pt to MRI this morning Exam Last value Range last 24 hrs Temperature Temp: 36.8 ??C (98.2 ??F) Temp: [36.6 ??C (97.9 ??F)-37 ??C (98.6 ??F)] Heart Rate Heart Rate: 73 Heart Rate: -- Blood Pressure BP: 132/77 BP: (101-133)/(59-81) Respiratory Rate Resp: 16 Resp: [16-18] SpO2 SpO2: 96 % SpO2: [95 %-100 %] No data recorded DID NOT EXAMINE, pt in MRI Data Labs: I/O 24 Hours: 03/23 701 - 03/24 07 In: 2036 [P.O.:200; I.V.:1719] Out: 400 [Urine:400] I/O this shift: In: 1531 [I.V.:1531] Out: - Recent Labs 03/24/23 0351 03/23/23 0807 03/23/23 0339 03/22/23 0417 03/21/23 0346 WBC 6.8 9.0 7.5 8.0 8.2 HGB 10.5* 10.2* 10.5* 12.6 13.3 HCT 31.5* 30.2* 31.8* 37.3 37.6 PLATELET 268 268 263 384* 322 NEUTROABS 3.49 7.13* 6.54* 4.00 5.44 Recent Labs 03/24/23 0551 03/24/23 0351 03/23/23 0339 03/22/23 0417 03/21/23 0346 03/20/23 0232 NA -- 141 139 140 135 134* K 3.4* Not Perf 4.3 3.4* 3.8 4.1 CL -- 104 103 98 98 97* CO2 -- 29 27 32* 27 26 BUN -- 5* 6* 7* 6* 4* CREATININE -- 0.65* 0.61* 0.69* 0.54* 0.42* GLUCOSE -- 81 111 101 105 122 Recent Labs 03/24/23 0351 03/23/23 0339 03/22/23 0417 CALCIUM 8.3* 8.8 9.0 MAGNESIUM 0.75 0.80 0.94 PHOS 3.1 3.4 3.1 Recent Labs 03/24/23 0551 03/24/23 0351 03/23/23 0339 03/22/23 0417 03/21/23 0346 03/20/23 0232 03/18/23 1549 AST 54* Not Perf 39* 30 < > 42* 74* ALT 41* Not Perf 37* 37* < > 57* 87* ALKPHOS -- 103 107* 118* < > 111* 152* BILITOT -- 0.7 0.7 0.9 < > 1.0 1.4* BILIDIR -- -- -- -- -- 0.4* 0.6* < > = values in this interval not displayed. No results for input(s): TROPONINT, CK in the last 168 hours. No results for input(s): PHART, SOG7OBB, PO2ART, BVL5FKR in the last 168 hours. No results for input(s): INR in the last 72 hours. Lipid Panel Lab Results Component Value Date CHLPL 173 06/07/2021 HDL 56 06/07/2021 CHOLHDL 3.1 06/07/2021 TRIG 97 06/07/2021 LDLCHOL 98 06/07/2021 No results for input(s): HA1C in the last 7068 hours. Diagnostic Tests and Imaging: MRI Brain wwout + orbits: pending Assessment & Plan 43 y.o. female w/morbid obesity, GERD, CHUN, IBS, depression and laparoscopic renato en y gastric bypass on 01/10/23 is admitted to general surgery for persistent abd pain, N/V. Neurology is consulted for dizziness and binocular diplopia. Differential includes ischemic or inflammatory pathology in brain stem vs possible structural pathology of right inferior rectus, or vitamin deficiency. Recommend MRI brain wwout + MRI orbits wwo to assess extraocular muscles considering eye pain and limited movement. Consider symptomatic relief with alternating eye patch, or addition of meclizine or scopolamine. Will follow up once MRI completed. ?? Recommendations: - Scopolamine patch - Vestibular PT - MRI brain wo thin cuts through brainstem - MRI orbits wwo - Thiamine and Folate supplementation - daily multivit General Neurology #[id number] Varsha Topete APRN Personal Pager #[phone] Department of Neurology [place] [phone] Associated attestation - Darinel Flores MD - 03/24/2023 2:26 PM EDT Neurology Attending Note Darinel Flores MD PhD (pager [phone]) I have seen and examined Leandra Wilks on 03/24. I have review Varsha Topete APRN's note and agreewith the history, exam, data/imaging review and assessment and recommendations. . * Consult Note - Isai Esqueda MD - 03/23/2023 7:11 AM EDT Neurology Consult Note - 03/23/2023 Admit date: 03/18/2023 Attending: Iram Borrero MD ID: Leandra Wilks is a 43 y.o. female??with medical history significant for morbid obesity, GERD, CHUN, IBS, depression and laparoscopic renato en y gastric bypass on 01/10/23 who has struggled with dysphagia and abdominal pain since surgery who presents 03/18/23 with continued dysphagia, nausea/vomiting and abdominal pain. Neurology consulted for evaluation of dizziness. Interval Hx: - Taken for exploratory lap yesterday evening - Reports ongoing binocular diplopia, now reporting worse with gaze to the right. Endorses pain with eye movement. Physical Exam: General: Appears stated age, WDWN, mild discomfort HEENT: NC/AT, MMM Pulm: Normal respiratory effort Neuro: MS: Appears tired but responding appropriately. Language: Fluent, no dysarthria or paraphasic errors, repetition intact CN: CN II, III, IV, - PERRLA, dysconjugate gaze at rest, EOMI provokes worsened double vision with right lateral inferior gaze, saccadic intrustions. left horizontal and rotational nystagmus. No ptosis. Appeared uncomfortable with EOM exam. CN V - Facial sensation intact/symmetric CN VII - No facial asymmetry CN VIII - Hearing intact to voice/finger rub CN IX, X - Not tested CN XI - SCM, trap strength symmetric CN XII - Tongue midline Motor: No focal atrophy, normal tone throughout Fine motor movements preserved, no bradykinesia Strength: Roots Muscles Action Right Left C5-6 Brachialis / Biceps brachii Elbow flexion 5 5 C6-8 Triceps brachii Elbow extension 5 5 C7-T1 Flexor digitorum profundus Digit II-V flexion / lamp shades supervisor 5 5 L2-3 Iliopsoas Hip flexion 5 5 L3-4 Quadriceps femoris Knee extension 5 5 L4-5 Tibialis anterior Ankle dorsiflexion/inversion 5 5 L5-S2 Triceps surae Ankle plantarflexion 5 5 Sensory: Intact to light touch throughout Reflexes: Arc Right Left Comments Biceps tendon C5-C6 2+ 2+ Brachioradialis tendon C5-C6 2+ 2+ Triceps tendon C6-C7 Finger flexor (Kathia) C8-T1 Patellar ligament L3-L4 1+ 1+ Plantar (Babinski) L5-S1 Achilles tendon S1-S2 1+ 1+ Coordination: FNF intact, no dysmetria or tremor noted SHAYE, finger tapping smooth and symmetric Gait: Not performed. Labs: Last wbc, hgb, hct plt Recent Labs 03/23/23 0807 WBC 9.0 HGB 10.2* HCT 30.2* Last Ca, Mg, Phos Recent Labs 03/23/23 0339 CALCIUM 8.8 PHOS 3.4 MAGNESIUM 0.80 Diagnostic Tests and Imaging: Results for orders placed or performed during the hospital encounter of 03/18/23 XR Fluoro Barium Swallow (Double Contrast) (Exam End: 03/19/2023 1:22 PM) Impression 1. Exam limited because only 2 swallows were completed. 2. No obstruction or intestinal dilatation and normal appearance of fundal pouch. Contrast passes rapidly through the gastrojejunal anastomosis into small bowel segments. 3. Small sliding hiatal hernia. Thank you for letting us participate in the care of this patient. If you are a health care provider and have any questions regarding this report, please contact the number below. For patients who have questions please contact the health direct care staffer that requested your imaging first. Electronically signed by: Poppy Webster MD, [facility] ([phone]), at 03/19/2023 1:29 PM MRI Cholangiopancreatography WO Contrast (Exam End: 03/19/2023 5:40 PM) Impression Beaded-strictured appearance of the intrahepatic biliary ducts extending into the most cranial aspect of the common hepatic duct. Differential diagnosis would include primary sclerosing cholangitis (PSC) (most commonly), ischemic cholangiopathy, HIV-associated cholangitis, chemotherapy-induced cholangitis, IgG4 disease, amongst others. Thank you for letting us participate in the care of this patient. If you are a health care provider and have any questions regarding this report, please contact the number below. For patients who have questions please contact the health direct care staffer that requested your imaging first. Electronically signed by: Maximo Forrest [facility] ([phone]), at 03/20/2023 7:[address] Head wo Contrast (Generic) (Exam End: 03/21/2023 12:34 PM) Impression Normal brain CT. Thank you for letting us participate in the care of this patient. If you are a health care provider and have any questions regarding this report, please contact the number below. For patients who have questions please contact the health direct care staffer that requested your imaging first. Electronically signed by: Erlin Castorena [facility] ([phone]), at 03/21/2023 12:49 PM Orthostatics blood pressure measurements: Lying 102/61 (75), Sitting 116/78 (91), Standing 102/77 (85) Assessment: This is Leandra Wilks, a 43-year-old woman with n/v dysphagia following gastric bypass surgery, neurology was consulted for vertigo that has not resolved. Leandra reports acute onset diplopia and dizziness with her eyes open. Examination remarkable for limited movement of right inferior rectus today, opposite from examination yesterday. Differential includes ischemic or inflammatory pathology in brain stem vs possible structural pathology of right inferior rectus. Recommend addition of MRI orbits wwo to assess extraocular muscles considering eye pain and limited movement. Consider symptomatic relief with alternating eye patch, or addition of meclizine or scopolamine. Recommendations: - Scopolamine patch - Vestibular PT - MRI brain wo thin cuts through brainstem - MRI orbits wwo Neurology Consult #[id number] Isai Esqueda MD Neurology Resident, PGY-4 03/23/2023 Associated attestation - Darinel Flores MD - 03/24/2023 2:28 PM EDT Neurology Attending Note Darinel Flores MD PhD (pager [phone]) Please see my earlier attestation. * Op Note - Iram Borrero MD - 03/22/2023 7:54 PM EDT [facility] Operative Note Patient Name: Leandra Wilks : [id number] MR#: [id number] Case Date: 03/22/2023 Surgeon: Surgeon(s) and Role: * Iram Borrero MD - Primary * Natalee Winn MD - Fellow - Assisting Preoperative diagnosis: failure to thrive s/p RNY gastric bypass Postoperative diagnosis: failure to thrive s/p RNY gastric bypass Procedure(s) (LRB): LAPAROSCOPY, DIAGNOSTIC, ABDOMEN (WRVU 5.14) (N/A) @LYSIS OF ADHESIONS, ABD. (WRVU 18.46) (N/A) Findings: Normal gastric bypass anatomy. No internal hernia. GJ and JJ appeared normal and bowel appeared healthy overall. Small omental adhesion lysed in the LUQ. Anesthesia: Anesthesia type not filed in the log. Estimated Blood Loss: 1 mL Specimens removed during surgery: None Drains: None Surgical Closure: Primary Closure - skin incision is completely closed without any wires, fernando, drains or other devices Disposition: awakened from anesthesia, extubated and taken to the recovery room in a stable condition, having suffered no apparent untoward event. Condition: doing well without problems (Please see the Surgical Encounter Summary for any Implant and Specimen details pertinent to this patient.) HPI/Surgical Indications: This is a 43 yo woman with a history of gastric bypass in Dec 2022 who has not thrived since surgery. She has had chronic nausea and abdominal pain. Extensive work up thus far has not revealed an anatomical or mechanical etiology to explain her symptoms. Plan for diagnoticlaparoscopy today to rule out an internal hernia. Procedure Description: The patient's identity and informed consent were verified in the pre-operative holding area. She was being administered DVT prophylaxis as an inpatient on the floor. Leandra Wilks was taken to the operating room and placed in Supine position. Bilateral sequential compression devices placed. Anesthesia was induced without complications; see anesthesia record for details. The patient was prepped and draped in sterile fashion. Time out was performed and preoperative antibiotics given. A Veress needle was used to access the abdomen in the left upper quadrant and the abdomen was insufflated with normal opening pressures. A 5mm incision was made below the umbilicus. A 5-mm port was placed at this site under direct visualization followed by insertion of the laparoscope. General exploration of the abdomen was performed and there was no gross abnormality seen. Two additional 5mm ports were placed in the RUQ. We then examined her bowel. Her GJ anastomosis was identified and the renato limb was followed distally to her JJ. No internal hernia or defect was noted at the pseudo-Day space. Her common channel was then run from the JJ to the terminal ileum. No abnormality was seen. Her BP limb was then run from her JJ to the ligament of Treitz and also appeared normal. There was no mesenteric defect at her JJ anastomosis. A small omental adhesion in the left upper quadrant was taken down with scissors and cautery. Her liver appeared healthy. No other abnormalities noted. The abdomen was deflated and ports were removed. Local anesthetic was injected in the port sites for postop analgesia, the skin was closed with interrupted 4-0 Monocryl sutures, and then it was sealed with Dermabond. At the end of the procedure, all sponge, instrument and needle counts were reported as correct and verified x2. The patient was awakened from anesthesia, extubated, and then transferred to the PACU in a stable condition. Attestation: Case Date: 03/22/2023 I was present and I participated during the entire procedure (does not need to include opening and closing). Iram Borrero MD 03/22/2023 Surgical Infection Prevention Bundle Used? N/A * Consult Note - Isai Esqueda MD - 03/22/2023 3:29 PM EDT Neurology Consult Note - 03/22/2023 Admit date: 03/18/2023 Attending: Iram Borrero MD ID: Leandra Wilks is a 43 y.o. female??with medical history significant for morbid obesity, GERD, CHUN, IBS, depression and laparoscopic renato en y gastric bypass on 01/10/23 who has struggled with dysphagia and abdominal pain since surgery who presents 03/18/23 with continued dysphagia, nausea/vomiting and abdominal pain. Neurology consulted for evaluation of dizziness. HPI: Patient reports that her dizziness started when she arrived at hospital. Describes the onset as acute, and the dizziness is constant since that time with the exception of when her eyes are closed. Room spinning dizziness. She reports diagonal double vision at the same that has constant. Denies excerbating with movement. No positional component. She denies blurred vision during this interview but has previously endorsed it to nursing staff. Endorsed nausea and vomiting over previous days. Denieshearing change. No neck pain. No recent fevers of chills. Patient received compazine in the morning and has had no vomiting or nausea since. Her blood sugar was 90 (she is currently NPO for surgery), and her orthostatics showed Hx of head injury about 14 years ago. ROS negative except as above. Hospital Medications: Current Facility-Administered Medications Medication Dose Route Frequency Provider Last Rate Last Admin ??? thiamine (B-1) 500 mg in sodium chloride 0.9% 55 mL infusion 500 mg Intravenous TID Dick Bower MD ??? lamoTRIgine (LaMICtal) tablet 25 mg 25 mg Oral BID Crystal Engel MD 25 mg at 03/22/23920 ??? pantoprazole (Protonix) injection 40 mg 40 mg Intravenous Daily Crystal Engel MD 40 mg at 03/22/23920 ??? acetaminophen (Tylenol) (32.02 mg/mL) oral liquid 650 mg 650 mg Oral Q6H PRN Dick Bower MD ??? prochlorperazine (Compazine) (5 mg/mL) injection 10 mg 10 mg Intravenous Q6H PRN Natalee Winn MD 10 mg at 03/22/23 0627 ??? sodium chloride 0.9 % (flush) (BD PosiFlush Normal Saline 0.9) flush 5 mL 5 mL Intravenous BID Dick Bower MD 5 mL at 03/22/23921 ??? sodium chloride 0.9 % (flush) (BD PosiFlush Normal Saline 0.9) flush 5-20 mL 5-20 mL Intravenous Q1 Min PRN Dick Bower MD ??? lactated ringers infusion 1,000 mL Intravenous Continuous Dick Bower MD 100 mL/hr at 03/22/23 1352 1,000 mL at 03/22/23 1352 ??? cyclobenzaprine (Flexeril) tablet 5 mg 5 mg Oral TID PRN Dick Bower MD ??? FLUoxetine (PROzac) (4 mg/mL) oral liquid 20 mg 20 mg Oral Daily Dick Bower MD 20 mg at 03/22/23918 ??? propranoloL (Inderal) tablet 20 mg 20 mg Oral BID Dick Bower MD 20 mg at 03/22/23918 ? ? sucralfate (Carafate) tablet 1 g 1 g Oral 4 Times Daily AC & HS Dick Bower MD 1 g at 03/20/232132 ??? albuteroL (Proventil, Ventolin) (2.5 mg/3 mL) (0.083 %) nebulizer solution 2.5 mg 2.5 mg Nebulization Q6H PRN Dick Bower MD ??? docusate sodium (Colace) capsule 100 mg 100 mg Oral BID Iram Borrero MD 100 mg at 03/22/23921 ??? metoclopramide (Reglan) (5 mg/mL) injection 10 mg 10 mg Intravenous Q6H PRN Natalee Winn MD 10 mg at 03/20/23 0854 ??? enoxaparin (Lovenox) (40 mg/0.4 mL) subcutaneous injection 40 mg 40 mg Subcutaneous Nightly Lisandro Araya MD 40 mg at 03/21/232118 ??? ondansetron (Zofran) tablet 4-8 mg 4-8 mg Oral Q8H PRN Lisandro Araya MD 4 mg at 03/21/23 1548 Or ??? ondansetron (pf) (Zofran) (2 mg/mL) injection 4-8 mg 4-8 mg Intravenous Q8H PRN Lisandro Araya MD 4 mg at 03/20/23 0738 ??? glucose (Glutose) 40% oral geL 15-30 g of glucose Buccal Q30 Min PRN Lisandro Araya MD Or ??? dextrose 10% infusion 250 mL Intravenous Q30 Min PRN Lisandro Araya MD Or ??? glucagon (Glucagen) (1 mg/mL) injection solution 1 mg 1 mg Intramuscular Q30 Min PRN Lisandro Araya MD Home Medications: No current facility-administered medications on file prior to encounter. Current Outpatient Medications on File Prior to Encounter Medication Sig Dispense Refill ??? Oxytrol 3.9 mg/24 hr Patch Semiweekly Change 1 patch on the skin twice a week. ??? pantoprazole EC (Protonix) [address] tablet Take 20 mg by mouth daily. ??? sucralfate (Carafate) 1 gram tablet Take 1 tablet by mouth 4 times daily for 30 days. Crush tablet and take with small amount of liquid 120 tablet 0 ??? cholecalciferol, Vitamin D3, 50 mcg (2,000 unit) Capsule Take 1 capsule by mouth daily. ??? ondansetron ODT (Zofran-ODT) 4 mg Tablet, Rapid Dissolve Take 1 tablet by mouth every 8 hours as needed for Nausea. 20 tablet 0 ??? Emgality Pen 120 mg/mL Pen Injector Inject 120 mg as directed every 30 days. ??? propranoloL (Inderal) 20 mg Tablet Take 20 mg by mouth 2 times daily. ??? lamoTRIgine (LaMICtal) 150 mg Tablet Take 150 mg by mouth 2 times daily. ??? cyclobenzaprine (Flexeril) 5 mg Tablet Take 5 mg by mouth 3 times daily as needed. ??? FLUoxetine (PROzac) 20 mg Capsule Take 20 mg by mouth Daily. ??? latanoprost (XALATAN) 0.005 % Drops Place 1 drop into both eyes nightly. 3 ??? Certavite-Antioxidant 18-400 mg-mcg Tablet Take 1 tablet by mouth daily. ??? PROAIR HFA 90 mcg/actuation HFA Aerosol Inhaler Inhale 1 puff into the lungs every 6 hours as needed. 2 Past Medical History: No past medical history on file. Past Surgical History: Procedure Laterality Date ??? ABDOMINAL EXPLORATION SURGERY 10/31/2004 b/l salpingectomy and removel enodmetrial implantsin cul de sac ??? APPENDECTOMY ??? CARPAL TUNNEL RELEASE Bilateral ??? CHOLECYSTECTOMY ??? HYSTERECTOMY, VAGINAL 05/12/2015 ??? PRO LAP GASTRIC BYPASS/RENATO-EN-Y N/A 01/10/2023 @LAPAROSCOPIC GASTROPLASTY W/ RENATO-EN-Y CONSTRUCTION (WRVU 29.4) performed by [facility] OR ??? PRO UPPER GI ENDOSCOPY, DIAGNOSTIC N/A 01/10/2023 EGD, UPPER GI ENDOSCOPY performed by Iram Borrero MD at [facility] OR ??? PRO UPPER GI ENDOSCOPY, DIAGNOSTIC N/A 03/05/2023 EGD, UPPER GI ENDOSCOPY (WRVU 2.09) performed by Iram Borrero MD at [facility] OR ??? PRO UPPER GI ENDOSCOPY, DIAGNOSTIC N/A 03/20/2023 EGD, UPPER GI ENDOSCOPY (WRVU 2.09) performed by Gerber Salomon MD at [facility] ENDOSCOPY Allergies: No Known Allergies Family history: No family history on file. Physical Exam: General: Appears stated age, WDWN, mild discomfort HEENT: NC/AT, MMM Pulm: Normal respiratory effort Neuro: MS: Appears tired but responding appropriately. Language: Fluent, no dysarthria or paraphasic errors, repetition intact CN: CN II, III, IV, - PERRLA, slight dysconjugate gaze, EOMI provokes worsened double vision with left lateral inferior gaze, improved looking to right. Left horizontal nystagmus with lateral gaze. No ptosis. Appeared uncomfortable with EOM exam. CN V - Facial sensation intact/symmetric CN VII - No facial asymmetry CN VIII - Hearing intact to voice/finger rub CN IX, X - Not tested CN XI - SCM, trap strength symmetric CN XII - Tongue midline Motor: No focal atrophy, normal tone throughout Fine motor movements preserved, no bradykinesia Strength: Roots Muscles Action Right Left C5-6 Brachialis / Biceps brachii Elbow flexion 5 5 C6-8 Triceps brachii Elbow extension 5 5 C7-T1 Flexor digitorum profundus Digit II-V flexion / lamp shades supervisor 5 5 L2-3 Iliopsoas Hip flexion 5 5 L3-4 Quadriceps femoris Knee extension 5 5 L4-5 Tibialis anterior Ankle dorsiflexion/inversion 5 5 L5-S2 Triceps surae Ankle plantarflexion 5 5 Sensory: Intact to light touch throughout Reflexes: Arc Right Left Comments Biceps tendon C5-C6 2+ 2+ Brachioradialis tendon C5-C6 2+ 2+ Triceps tendon C6-C7 Finger flexor (Kathia) C8-T1 Patellar ligament L3-L4 1+ 1+ Plantar (Babinski) L5-S1 Achilles tendon S1-S2 1+ 1+ Coordination: FNF intact, no dysmetria or tremor noted SHAYE, finger tapping smooth and symmetric Gait: Not performed. Labs: Last wbc, hgb, hct plt Recent Labs 03/22/23 0417 WBC 8.0 HGB 12.6 HCT 37.3 Last Ca, Mg, Phos Recent Labs 03/22/23 0417 CALCIUM 9.0 PHOS 3.1 MAGNESIUM 0.94 Diagnostic Tests and Imaging: Results for orders placed or performed during the hospital encounter of 03/18/23 XR Fluoro Barium Swallow (Double Contrast) (Exam End: 03/19/2023 1:22 PM) Impression 1. Exam limited because only 2 swallows were completed. 2. No obstruction or intestinal dilatation and normal appearance of fundal pouch. Contrast passes rapidly through the gastrojejunal anastomosis into small bowel segments. 3. Small sliding hiatal hernia. Thank you for letting us participate in the care of this patient. If you are a health care provider and have any questions regarding this report, please contact the number below. For patients who have questions please contact the health direct care staffer that requested your imaging first. Electronically signed by: Poppy Webster MD, [facility] ([phone]), at 03/19/2023 1:29 PM MRI Cholangiopancreatography WO Contrast (Exam End: 03/19/2023 5:40 PM) Impression Beaded-strictured appearance of the intrahepatic biliary ducts extending into the most cranial aspect of the common hepatic duct. Differential diagnosis would include primary sclerosing cholangitis (PSC) (most commonly), ischemic cholangiopathy, HIV-associated cholangitis, chemotherapy-induced cholangitis, IgG4 disease, amongst others. Thank you for letting us participate in the care of this patient. If you are a health care provider and have any questions regarding this report, please contact the number below. For patients who have questions please contact the health direct care staffer that requested your imaging first. Electronically signed by: Maximo Forrest [facility] ([phone]), at 03/20/2023 7:[address] Head wo Contrast (Generic) (Exam End: 03/21/2023 12:34 PM) Impression Normal brain CT. Thank you for letting us participate in the care of this patient. If you are a health care provider and have any questions regarding this report, please contact the number below. For patients who have questions please contact the health direct care staffer that requested your imaging first. Electronically signed by: Erlin Castorena [facility] ([phone]), at 03/21/2023 12:49 PM Orthostatics blood pressure measurements: Lying 102/61 (75), Sitting 116/78 (91), Standing 102/77 (85) Assessment: This is Leandra Wilks, a 43-year-old woman with n/v dysphagia following gastric bypass surgery, neurology was consulted for vertigo that has not resolved. Vertigo began 03/18, is non-positional, constant, improved when eyes are closed, not associated with headache or neck pain. Examination remarkable for worsened diplopia with lateral inferior gaze and horizontal nystagmus, otherwise nonfocal examination. Orthostatics within normal range. Considering acute onset vertigo and diplopia 4 days ago recommend MRI brain for evaluation of pontine infarct, though would be unusual to resolve with eyes closed. Etiology of diplopia unclear, worsened direction implies weakness of left inferior rectus though other left CN III muscles spared. For symptomatic management recommend trial of scopolamine patch vs meclizine. Further recommendations pending MRI. Recommendations: - Scopolamine patch - Vestibular PT - MRI General Neurology Consults #[id number]. To be staffed in AM with Dr. Flores. Jaxon Kaur MD PGY1 03/22/2023 Isai Esqueda MD Neurology Resident, PGY-4 03/22/2023 Associated attestation - Darinel Flores MD - 03/24/2023 2:29 PM EDT Neurology Attending Note Darinel Flores MD PhD (pager [phone]) I have seen and examined Leandra Wilks on 03/[address] Esqueda, whose note contains our history, exam, data/imaging review and assessment and recommendations. She has a lateral binocular diplopia that is worse with gaze to the right, with the most distal image being perceived by the righteye suggesting that the weak eye is the right. She describes pain in movement of the right eye. Recommend MRI with orbit high resolution. * Consult Note - Yuriy Bustillo MD - 03/21/2023 4:02 PM EDT Psychiatry Attending Note I saw and evaluated the patient with the resident. I reviewed the patient???s history during the visit and I agree with the details as written. My exam confirms the resident's findings. The assessment and plan were formulated in discussion with me and I agree with them as documented/addended and as outlined below. Major issues addressed/discussed: Psych consulted for ?psychological contribution to persistent post-op n/v and abd pain since RNYB 01/10/23. On our exam pt is not reporting sx consistent with a majordepressive episode, is not acutely psychotic, manic or acutely encephalopathic - though does report subjective confusion currently and some auditory perceptual changes earlier in her hospitalization.Current extensive workup negative for acute medical cause, pending ex-lap saturday. Agree with head imaging. Pt is high risk for vitamin deficiency - particularly thiamine, and while this may not explain N/V - she is reporting gait instability, subjective confusion and nystagmus noted on exam. Therefore would empirically replete IV thiamine 500mg TID. Yuriy Bustillo MD Psychiatry Consultation Pager: [phone] Psychiatric Initial Inpatient Consultation Note Time of Consultation: 3:00 PM Information Sources: Patient. Electronic Medical Record. Reason for consultation: I have been asked by attending physician Dr. Iram Borrero to see Ibis Wilks for recommendations regarding the management of nausea and abdominal pain and I have outlined my findings and recommendations in this report. ID: Leandra Wilks is a 43 y.o. female??with a psychiatric history of PTSD, depression, MADY and medical history significant for morbid obesity, GERD, CHUN, IBS and laparoscopic renato en y gastric bypass on 01/10/23 who has struggled with dysphagia and abdominal pain since surgery who presents 03/18/23with continued dysphagia, nausea/vomiting and abdominal pain. Chief Complaint (in patient's own words): I can't keep anything down History of Present Illness: Per Jessica Haywood's assessment: She stated that she has not really felt well since her bariatric surgery in December 2022. She described episodes of presenting to the hospital with various symptoms related to GI problems and the subsequent difficulties from inability to consume/keep down enough calories and nutrients. This current hospitalization is in response to her worst physical decline since her surgery. ?? Patient shared that she's been on disability for several years due to both physical and mental health functional impairments that prevent her from being able to work. She said that her normal days consist of walking her dogs, doing necessary shopping and spending time with family. She lives with her boyfriend and her 2 adult sons. ?? Patient stated that her mental health goes up and down. She has a regular therapist whom she seesweekly when she's physically well enough. Per chart review, patient has been given several diagnoses including: unspecified mood disorder, trauma and stress related disorder, PTSD, Generalized Anxiety Disorder and Depression. As part of her bariatric surgery preparation, she saw a psychologist who noted patterns of food restriction and binge-eating behaviors that were in remission prior to her bariatric surgery. The patient is a good historian and confirms the story reported above. She notes that felt well fora brief period after her operation, a few weeks, even though she was having challenges eating. She cannot pinpoint a reason as to why she started to decline, but started to feel worse physically and mentally with persistent nausea and vomiting. This has lead to several ED presentations for IVF resuscitation. She denies depression but does state that she feels discouraged with how things have proceeded after her surgery. She endorses good appetite but nausea, poor concentration, low energy, disrupted sleep schedule, ruminations of guilt/being a burden, and psychomotor retardation. She denies recent orcurrent SI/HI. She notes that many of the symptoms she has been experiencing are directly related to her inability to keep food down. She denies current or remote history of lizabeth. She endorses remote and current AH. She describes the remote AH as thinking I could talk to spirits. She said this lasted for a short period of time and that she worked through it with her therapist. Currently, she thinks that there are people talking about me, but I can't make out what they're saying. She deniesCAH. In terms of disordered eating history, she states that ~1 year prior to her operation, she was struggling with body image issues and had periods of calorie restrictions with reactive binge eating episodes. She denies purging or surrepitious use of laxatives to enhance weight loss or counteract binge eating episodes. She notes that she worked on this with her therapist and felt that these behaviors resolved ~1 year ago. However, when asking if any of these thoughts have returned, she does note that she occasionally feels that she shouldn't eat because of the effort of the surgery to lose weight. Additionally, she notes that she is afraid that pills and food will get stuck in her throat because of the operation. She does say that she ruminates over these thoughts frequently. We discussed her current presentation and our desire to help increase her ability to take PO. We discussed her ongoing medical work up and that we would recommend to the team to do some more laboratory testing and possibly recommend medications in the future. Independent Collateral: N/A Psychiatric Review of Systems: Sustained Depressed Mood: no Sustained Elevated Mood: no Sustained Irritable Mood: no Flashbacks: no Nightmares: no Panic Attacks: no Chronic Worry: no Psychotic Symptoms: no Obsessions/compulsions: no Violence: no Self Harm: no Past Psychiatric History: Diagnoses: PTSD, Depression, MADY Current treatment: Prozac and Lamictal Past hospitalizations: None at [facility] Suicide attempts: 1 remote attempt Past psychiatric medications (include dose, length of use, response, reason for stopping): did not discuss Substance Use History/Treatment: None currently; has not had alcohol for 6-8 months. Denies all other current and remote substance use. Problem List: Patient Active Problem List Diagnosis Code ??? Irritable bowel syndrome with diarrhea K58.0 ??? Back pain M54.9 ??? Chronic pelvic pain in female R10.2, G89.29 ??? Unspecified dyspareunia N94.10 ??? Mood disorder F39 ??? Calculi, ureter N20.1 ??? Pain in right foot M79.671 ??? Endometriosis N80.9 ??? Glaucoma H40.9 ??? Fibromyalgia M79.7 ??? Osteoarthritis, multiple sites M15.9 ??? Adult BMI 40.0-44.9 kg/sq m Z68.41 ??? Depression with anxiety F41.8 ??? CHUN (obstructive sleep apnea) G47.33 ? ? Severe obesity (BMI >= 40) E66.01 ??? Abdominal pain R10.9 Past Medical/Surgical History: No past medical history on file. Past Surgical History: Procedure Laterality Date ??? ABDOMINAL EXPLORATION SURGERY 10/31/2004 b/l salpingectomy and removel enodmetrial implantsin cul de sac ??? APPENDECTOMY ??? CARPAL TUNNEL RELEASE Bilateral ??? CHOLECYSTECTOMY ??? HYSTERECTOMY, VAGINAL 05/12/2015 ??? PRO LAP GASTRIC BYPASS/RENATO-EN-Y N/A 01/10/2023 @LAPAROSCOPIC GASTROPLASTY W/ RENATO-EN-Y CONSTRUCTION (WRVU 29.4) performed by [facility]ram [facility]ro MDat [facility] MA[facility] ??? PRO UPPER GI ENDOSCOPY, DIAGNOSTIC N/A 01/10/2023 EGD, UPPER GI ENDOSCOPY performed by Iram Borrero MD at [facility] MAIN OR ??? PRO UPPER GI ENDOSCOPY, DIAGNOSTIC N/A 03/05/2023 EGD, UPPER GI ENDOSCOPY (WRVU 2.09) performed by Iram Borrero MD at [facility] MAIN OR ??? PRO UPPER GI ENDOSCOPY, DIAGNOSTIC N/A 03/20/2023 EGD, UPPER GI ENDOSCOPY (WRVU 2.09) performed by Gerber Salomon MD at [facility] ENDOSCOPY Inpatient Medications: Current Facility-Administered Medications Medication Dose Route Frequency Provider Last Rate Last Admin ??? lamoTRIgine (LaMICtal) tablet 25 mg 25 mg Oral BID Crystal Engel MD ??? [START ON 03/22/2023] pantoprazole (Protonix) injection 40 mg 40 mg Intravenous Daily Crystal Engel MD ??? acetaminophen (Tylenol) (32.02 mg/mL) oral liquid 650 mg 650 mg Oral Q6H PRN Dick Bower MD ??? prochlorperazine (Compazine) (5 mg/mL) injection 10 mg 10 mg Intravenous Q6H PRN Natalee Winn MD 10 mg at 03/21/23 0859 ??? sodium chloride 0.9 % (flush) (BD PosiFlush Normal Saline 0.9) flush 5 mL 5 mL Intravenous BID Dick Bower MD 5 mL at 03/21/23 0854 ??? sodium chloride 0.9 % (flush) (BD PosiFlush Normal Saline 0.9) flush 5-20 mL 5-20 mL Intravenous Q1 Min PRN Dick Bower MD ??? lactated ringers infusion 1,000 mL Intravenous Continuous Dick Bower MD 100 mL/hr at 03/21/23 1539 1,000 mL at 03/21/23 1539 ??? cyclobenzaprine (Flexeril) tablet 5 mg 5 mg Oral TID PRN Dick Bower MD ??? FLUoxetine (PROzac) (4 mg/mL) oral liquid 20 mg 20 mg Oral Daily Dick Bower MD 20 mg at 03/21/23 0852 ??? propranoloL (Inderal) tablet 20 mg 20 mg Oral BID Dick Bower MD 20 mg at 03/21/23 0852 ? ? sucralfate (Carafate) tablet 1 g 1 g Oral 4 Times Daily AC & HS Dick Bower MD 1 g at 03/20/23 2133 ??? albuteroL (Proventil, Ventolin) (2.5 mg/3 mL) (0.083 %) nebulizer solution 2.5 mg 2.5 mg Nebulization Q6H PRN Dick Bower MD ??? docusate sodium (Colace) capsule 100 mg 100 mg Oral BID Iram Borrero MD ??? metoclopramide (Reglan) (5 mg/mL) injection 10 mg 10 mg Intravenous Q6H PRN Natalee Winn MD 10 mg at 03/20/23 0854 ??? enoxaparin (Lovenox) (40 mg/0.4 mL) subcutaneous injection 40 mg 40 mg Subcutaneous Nightly Lisandro Araya MD 40 mg at 03/20/23 2131 ??? ondansetron (Zofran) tablet 4-8 mg 4-8 mg Oral Q8H PRN Lisandro Araya MD 4 mg at 03/21/23 1548 Or ??? ondansetron (pf) (Zofran) (2 mg/mL) injection 4-8 mg 4-8 mg Intravenous Q8H PRN Lisandro Araya MD 4 mg at 03/20/23 0738 ??? glucose (Glutose) 40% oral geL 15-30 g of glucose Buccal Q30 Min PRN Lisandro Araya MD Or ??? dextrose 10% infusion 250 mL Intravenous Q30 Min PRN Lisandro Araya MD Or ??? glucagon (Glucagen) (1 mg/mL) injection solution 1 mg 1 mg Intramuscular Q30 Min PRN Lisandro Araya MD Pertinent Medical Review of Systems: Neurology: +dizziness, diplopia, sensory changes in R arm and leg, gait instability. Social History: ?? Patient shared that she's been on disability for several years due to both physical and mental health functional impairments that prevent her from being able to work. She said that her normal days consist of walking her dogs, doing necessary shopping and spending time with family. She lives with her boyfriend and her 2 adult sons. Family Medical/Psychiatric History: Denies Physical Exam: Last value Range last 24 hrs Temperature Temp: 36.7 ??C (98.1 ??F) Temp: [36.4 ??C (97.5 ??F)-37.1 ??C (98.8 ??F)] Heart Rate Heart Rate: 92 Heart Rate: -- Blood Pressure BP: 122/81 BP: (89-155)/(57-111) Respiratory Rate Resp: 15 Resp: [15-18] SpO2 SpO2: 97 % SpO2: [87 %-100 %] Neurology: CN II-XII grossly intact with notable horizontal nystagmus and rapid sacades, sensation and coordination grossly intact. DTR 1+. Gait and motor not examined. Mental Status Examination: Musculoskeletal System: ??? Muscle Strength/Tone (note atrophy, abnormal movements): See neuro exam above ??? Gait and Station: Not evaluated Psychiatric: ?? Appearance: age appropriate, casually dressed, overweight and dyed hair Behavior: cooperative with the interview, calm and good eye contact ?? Speech: normal pitch, normal rate, normal rhythm, soft and increased latency ?? Language: fluent in greenlandic, without paraphasic errors and without word finding difficulty ?? Mood: I;m ok, I'm really weak Affect: constricted and mood-congruent ?? Thought Process: linear, logical and concrete ?? Associations: intact ?? Thought Content: no homicidal ideation no suicidal ideation Perception: denied visual hallucinations not observed responding to internal stimuli endorses AH ?? Orientation: grossly intact by interview ?? Attention/Concentration: Grossly intact with serial 7s, WORLD, and language testing Cognition: grossly intact by interview ?? Memory: recent and remote memory grossly intact ?? Fund of Knowledge: appropriate for age and level of functioning ?? Insight: limited ?? Judgment: fair Pertinent Diagnostic Testing (include your own review/interpretation of results): Last 3 wbc, hgb, hct plt Recent Labs 03/21/23 0346 03/20/23 0232 03/19/23 0349 WBC 8.2 5.4 9.4 HGB 13.3 12.1 12.0 HCT 37.6 35.0* 32.9* PLATELET 322 319 272 Last 3 Lytes Recent Labs 03/21/23 0346 03/20/23 0232 03/19/23 1532 NA 135 134* 135 K 3.8 4.1 4.1 CL 98 97* 97* CO2 27 26 26 BUN 6* 4* 5* CREATININE 0.54* 0.42* 0.40* Last 3 LFTs Recent Labs 03/21/23 0346 03/20/23 0232 03/18/23 1549 AST 24 42* 74* ALT 43* 57* 87* ALKPHOS 116* 111* 152* BILITOT 0.9 1.0 1.4* BILIDIR -- 0.4* 0.6* Last Ca, Mg, Phos Recent Labs 03/21/23 0346 CALCIUM 8.4* PHOS 3.0 MAGNESIUM 0.81 Last 3 TFT No results for input(s): TSH in the last 7068 hours. Invalid input(s): T4, FT4 Last 3 Lipids No results for input(s): CHLPL, HDL, LDLCHOL, LDLDIRECT, TRIG in the last 7068 hours. Last 3 HgbA1C No results for input(s): HA1C in the last 7068 hours. Results for orders placed or performed during the hospital encounter of 03/18/23 XR Fluoro Barium Swallow (Double Contrast) (Exam End: 03/19/2023 1:22 PM) Narrative EXAMINATION: XR FLUORO BARIUM SWALLOW (DOUBLE CONTRAST) CLINICAL HISTORY: s/p RNY gastric bypass with PO intolerance please eval for dysmotility TECHNIQUE: Double contrast esophagram was performed. Fluoroscopic spot films were obtained. Fluoro time: 0.67 minutes COMPARISON: Outside CT of the pelvis February 2023 FINDINGS: Examination limited because patient tolerated only 2 swallows of barium. The esophagus is normal in course and caliber, and is well distended on double contrast views. The mucosal pattern is normal. There is a small sliding hiatal hernia. Esophageal peristalsis is normal. . Contrast passes rapidly into the gastric fundal pouch and through the gastrojejunal anastomosis into small bowel segments without delay or dilatation. Impression 1. Exam limited because only 2 swallows were completed. 2. No obstruction or intestinal dilatation and normal appearance of fundal pouch. Contrast passes rapidly through the gastrojejunal anastomosis into small bowel segments. 3. Small sliding hiatal hernia. Thank you for letting us participate in the care of this patient. If you are a health care provider and have any questions regarding this report, please contact the number below. For patients who have questions please contact the health direct care staffer that requested your imaging first. Electronically signed by: Poppy Webster MD, [facility] ([phone]), at 03/19/2023 1:29 PM MRI Cholangiopancreatography WO Contrast (Exam End: 03/19/2023 5:40 PM) Narrative EXAMINATION: MRI CHOLANGIOPANCREATOGRAPHY WO CONSTRAST CLINICAL HISTORY:43-year-old female status post Renato-en-Y gastric bypass with abdominal pain and multiple CT examinations and endoscopy. Past medical history of morbid obesity, GERD, obstructive sleep apnea, bowel syndrome, and depression. Dysphagia. Nausea and vomiting. Abdominal pain. TECHNIQUE: Noncontrast MRCP was performed. 3D MIPS were created. COMPARISON: Correlation is made to multiple prior CT of the abdomen and pelvis examinations, the most recent of which is dated March 13, 2023 FINDINGS: Limitations: Lack of intravenous contrast limits evaluation of the visceral organs, gastrointestinal tract, and vascular structures. 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 Inferior thorax: Visualized structures within the inferior thorax are within normal limits. Liver: Normal. Bile ducts: There is a beaded-strictured appearance of the central intrahepatic biliary ducts with stricturing at the confluence of the intrahepatic biliary ducts extending into the cranial aspect of the common hepatic duct. The remainder of the common hepatic duct and common bile duct are normal in course and caliber. There are no intraluminal filling defects. Gallbladder: The gallbladder is surgically absent with surgical clips within the gallbladder fossa. There is a cystic duct remnant. Pancreas: Normal signal intensity. Pancreatic duct: Normal caliber and configuration. Spleen: Normal size and signal intensity. Adrenal glands: Normal. Kidneys: There are a few scattered sub-5 mm T2 hyperintense likely tiny renal cysts. Bowel and mesentery: Limited evaluation of the distal esophagus is unremarkable. The stomach is under distended, limiting evaluation. There are postsurgical changes from prior Renato-en-Y gastric bypass. There are no dilated segments of small or large bowel where visualized. Lymph nodes: There are no pathologically enlarged lymph nodes. Osseous structures: No focal marrow signal abnormality. Impression Beaded-strictured appearance of the intrahepatic biliary ducts extending into the most cranial aspect of the common hepatic duct. Differential diagnosis would include primary sclerosing cholangitis (PSC) (most commonly), ischemic cholangiopathy, HIV-associated cholangitis, chemotherapy-induced cholangitis, IgG4 disease, amongst others. Thank you for letting us participate in the care of this patient. If you are a health care provider and have any questions regarding this report, please contact the number below. For patients who have questions please contact the health direct care staffer that requested your imaging first. Electronically signed by: Maximo Forrest DO, [facility] ([phone]), at 03/20/2023 7:[address] Head wo Contrast (Generic) (Exam End: 03/21/2023 12:34 PM) Narrative EXAMINATION: CT HEAD WO CONTRAST (GENERIC) CLINICAL HISTORY: dizziness s/p gastric bypass surgery with no intra-abd explanation. eval for intra-cranial tumor TECHNIQUE: CT head performed without intravenous contrast administration. COMPARISON: None FINDINGS: There is no acute intracranial hemorrhage or mass effect. There is no extra axial collection or ventricular dilation. There is no acute confluent ischemic infarct. There are no osseous or extracranial soft tissue lesions identified. No evidence of significant inflammatory sinonasal or mastoid disease. Impression Normal brain CT. Thank you for letting us participate in the care of this patient. If you are a health care provider and have any questions regarding this report, please contact the number below. For patients who have questions please contact the health direct care staffer that requested your imaging first. Electronically signed by: Erlin Castorena DO, [facility] ([phone]), at 03/21/2023 12:49 PM Film Library- Storage Only Ultrasound Study (Exam End: 02/25/2023 12:00 AM) Narrative This exam is auto-finalizing. It's purpose is for storage only. Film Library- Storage Only CT Abdomen & Pelvis (Exam End: 03/13/2023 12:00 AM) Narrative This exam is auto-finalizing. It's purpose is for storage only. External Record Review (include your own review of external notes from any unique sources): Assessment: Leandra Wilks is a 43 y.o. female??with a psychiatric history of PTSD, depression, MADY and medical history significant for morbid obesity, GERD, CHUN, IBS and laparoscopic renato en y gastric bypass on 01/10/23 who has struggled with dysphagia and abdominal pain since surgery who presents 03/18/23 with continued dysphagia, nausea/vomiting and abdominal pain. Biologically, she has an unknown genetic predisposition to mental illness, no substance use, treatment-resistant disease necessitating psychotropic polypharmacy and multiple comorbid medical conditions, including obesity, HTN, IBS. Psychologically, she has low self- esteem, a shortage of psychological mindedness, few healthy coping skills, m inimal distress tolerance or cognitive flexibility, an unstable sense of self and a history of trauma, abuse, or neglect. Socially, she has significant social supports, stable and positive relationships with loved ones, significant financial stressors, stable housing and strong relationships with their treatment team. Based off these factors, clinical history, and mental status exam, Leandra Wilks meets diagnostic criteria for Anxiety, NOS based off of the DSM-V criteria. The differential includes Major Depressive Disorder, Generalized Anxiety Disorder and Specific Phobia, cPTSD and Somatic Symptom Disorder, Functional Neurological Disorder/Conversion disorder. In the absence of medical findings on multiple examinations and imaging, the patient continues to have refractory nausea and vomiting. We have been asked to see her for a psychological component to her presentation. The patient does not meet criteria for a major depressive disorder, although she ispresenting with multiple SIGECAP symptoms, she does not identify as being depressed and her symptoms can be explained by a medical cause. She does endorse a history of anxiety and disordered eating, that may have risen to the level of bulimia nervosa, and is currently exhibiting thought patterns that are concerning for a heightened level of anxiety surrounding food intake. Likely, there is a compo nent of somatization and/or conversion but it may not explain her persistent symptoms and comorbid neurological symptoms. Her neurological symptoms may be explained by the use of high dose lamotrigine after 3+ weeks off of it, but these current symptoms can also be an exacerbation of possible nutritional deficiencies related to her poor PO intake and renato-en-Y procedure. We recommend investigation of nutritional deficiencies and empirical oral treatment with thiamine, folate, B12, and niacin that may need to be converted to IV if profound deficiencies are appreciated. In the future, I would consider mirtazapine and gabapentin for anxiety/appetite treatment, if no further findings in ex-lap Diagnoses (chronic, acute, include progression/severity): Anxiety, NOS R/o FND or conversion d/o R/o nutritional deficiencies PTSD Plan/Recommendations: - decrease lamotrigine to 25mg PO QD, as discussed. - Monitor for emergence of rash - particularly if involving mucosal areas ocular/oral/urogenital areas - consult Derm if concern for SJS/TEN Increase to 25 BID in 2 weeks, if no signs of rash - continue prozac 20 - Laboratory w/u with vitamins B1, B3, B12 +MMA and folate - empirically replenish IV thiamine 500mg TID given nystagmus, gait instability, subjective cognitive changes - Surgery and Psych to reach out for collateral to Dr. Ferro and pt's outpatient therapist, Carlie Stone - We will continue to follow and provide recommendations after ex-lap on 03/22 - BIT following Patient on IEA Status? IEA: NO, patient is not on IEA and does not have any psychiatric contraindication to discharge at the time of this assessment. Recommendations were communicated to primary senior engineering team leader. Fernando Giles MD 03/21/2023 Coding Determination 1. Problems/Diagnosis (check one): Low Minimal refers to a single minor problem. Example: Poor sleep due to noise in the hospital room. Low refers to two minor problems, or one stable/uncomplicated illness. Examples: Major depression in remission; adjustment disorder with depressed mood. Moderate refers to one illness with new onset, progression, exacerbation, complication, or side effects; or two stable problems. Examples: Recurrent major depression with exacerbation or progression or side effects of treatment; stable schizophrenia and alcohol use disorder; acute alcohol withdrawal; anorexia with systemic symptoms such as bradycardia. High refers to one chronic problem with severe progression, exacerbation, or side effects; or one problem with threat to life or bodily function. Examples: any psychiatric illness with suicidal or homicidal ideation or thoughts of self- harm; delirium; any eating disorder with severe medical consequences; major depression with significant functional decline; any severe side effects of psychiatric interventions (NMS, hyponatremia, lithium toxicity syndrome, etc); any psychiatric illness meeting the severe specifier. 2. Data Review/Analysis (check one): Low Low refers to (1) review of notes and test results or (2) assessment from a collateral source. Moderate requires one of the following: ??? All three of the following: review of notes, review of test results, assessment from a collateral source. ??? Discussion of test interpretation or management with an external physician/provider (primary team included). High requires both of the following (same options from Moderate above): ??? All three of the following: review of notes, review of test results, assessment from a collateral source. ??? Discussion of test interpretation or management with an external physician/provider (primary team included). 3. Patient Risk (check one): Minimal Minimal refers to minimal risk from additional testing/treatment. Example: Bereavement. No medications recommended. Low refers to low risk from additional testing/treatment. Example: only interventions are minimallyinvasive or otherwise low risk (serum labs, melatonin, continuing an SSRI). Moderate refers to moderate risk from additional testing/treatment. Examples: starting prescriptionmedication with only moderate risk. Moderate also includes diagnosis or treatment significantly limited by social determinants of health such as food/housing insecurity, transportation issues, financial limitations, etc. High refers to high risk from additional testing/treatment. Examples: therapies requiring monitoring of serum level (lithium, valproate), medications with specific identified risks (QTc-prolonging medications in certain patients, SSRIs in patients with risk of bleeding). Discussions of higher levels of psychiatric intervention/care (1:1 sitter, voluntary psychiatric hospitalization, IEA, ECT). Patients who may require medical interventions against their wishes when they lack capacity to refuse those interventions; patients who lack capacity to choose to leave the hospital AMA. Discussion of high risk interventions that may be necessary to ensure safety (parenteral medications for managementof agitation; restraints; security presence). Risk of acute withdrawal. Complexity of MDM Determination: Choose the appropriate level in the first 3 columns based upon what you indicated above. Then 2 outof 3 elements must be met to qualify for the highest appropriate level of complexity. Problems/Diagnosis Data Review/Analysis Patient Risk Complexity of Medical Decision-Making CPT CODE [] Minimal - [] Minimal [] Straightforward 18391 [] Low [] Low [] Low [] Low 16880 [] Moderate [x] Moderate [] Moderate [] Moderate 62501 [x] High [] High [x] High [x] High 92135 Final Coding Determination: Straightforward * Consult Note - Jessica Haywood [facility] - 03/21/2023 11:30 AM EDT BIT Evaluation (Behavioral Intervention Team) Referral source: Consult request by primary team physician Reason for referral: Other: Coping support Relevant history: Per Crystal Engel MD's note: Leandra Wilks is a 43 y.o. female??with medical history significant for morbid obesity, GERD, CHUN, IBS, depression and laparoscopic renato en y gastric bypass on 01/10/23 who has struggled with dysphagia and abdominal pain since surgery who presents 03/18/23 with continued dysphagia, nausea/vomiting and abdominal pain. BIT has been consulted to provide additional support and along with the Psychiatry CL Service, to try to better understand what the patient may be experiencing psychologically. Patient stated that she is not feeling well today at all because of a combination of dizziness, nausea and stomach pain. She said that she keeps telling herself that she has to start feeling better. She stated that she has not really felt well since her bariatric surgery in December 2022. She described episodes of presenting to the hospital with various symptoms related to GI problems and the subsequent difficulties from inability to consume/keep down enough calories and nutrients. This current hospitalization is in response to her worst physical decline since her surgery. Patient shared that she's been on disability for several years due to both physical and mental health functional impairments that prevent her from being able to work. She said that her normal days consist of walking her dogs, doing necessary shopping and spending time with family. She lives with her boyfriend and her 2 adult sons. Patient stated that her mental health goes up and down. She has a regular therapist whom she seesweekly when she's physically well enough. Per chart review, patient has been given several diagnoses including: unspecified mood disorder, trauma and stress related disorder, PTSD, Generalized Anxiety Disorder and Depression. As part of her bariatric surgery preparation, she saw a psychologist who noted patterns of food restriction and binge-eating behaviors that were in remission prior to her bariatric surgery. Because patient will be evaluated by [facility] psychiatrist who can obtain more history, etc., she and Ishifted focus to how she's coping with her symptoms and this hospitalization. Patient is mainly trying to manage symptoms of dizziness and nausea today by staying still and keeping her eyes closed. She doesn't feel able to do anything else. She did endorse that this is one of the most difficult experiences she's ever had. Patient is willing to continue to talk with this clinician for support, especially since she is accustomed to seeing a therapist weekly. ?? Assessment: Patient was awake and sitting up in her chair during this encounter. She moved slowly and spoke quietly. She answered questions though didn't offer any information spontaneously. This clinician askedquestions about her mental health, however, patient mainly focused on the impact of her physical problems right now. This interview was somewhat limited by patient's physical discomforts - will continue to meet with her to provide additional support. Interventions delivered: Supportive therapy Plan: [facility] to follow for supportive therapy Outstanding Discharge Needs: Other: TBD - patient already has an established outpatient therapist Time spent with the patient (min):30 minutes Time spent on case coordination (min): 15 minutes Jessica Haywood MA, [facility] - BIT (Behavioral Intervention Team) Dept. of Psychiatry - Inpatient Psych. Services Pager: [phone] * Initial Assessments - Pito Baltazar, OT - 03/20/2023 1:38 PM EDT Occupational Therapy Evaluation Patient profile: Per MD: Leandra Wilks is a 43 y.o. female??with medical history significant formorbid obesity, GERD, CHUN, IBS, depression and laparoscopic renato en y gastric bypass on 01/10/23 whohas struggled with dysphagia and abdominal pain since surgery who presents 03/18/23 with continued dysphagia, nausea/vomiting and abdominal pain. ?? Subjective / 24h: - No acute overnight events - Emesis x3 recorded, pt reports dry heaves no large volume emesis - Continued nausea / abdominal pain - IV antiemetics, 1x dose IV dilaudid and scheduled tylenol - UGI study w/o evidence of obstruction - MRCP obtained, results pending - GI consult, recommendations pending No past medical history on file. Past Surgical History: Procedure Laterality Date ??? ABDOMINAL EXPLORATION SURGERY 10/31/2004 b/l salpingectomy and removel enodmetrial implantsin cul de sac ??? APPENDECTOMY ??? CARPAL TUNNEL RELEASE Bilateral ??? CHOLECYSTECTOMY ??? HYSTERECTOMY, VAGINAL 05/12/2015 ??? PRO LAP GASTRIC BYPASS/RENATO-EN-Y N/A 01/10/2023 @LAPAROSCOPIC GASTROPLASTY W/ RENATO-EN-Y CONSTRUCTION (WRVU 29.4) performed by [facility]ram [facility]rero MDat [facility] MA[facility] OR ??? PRO UPPER GI ENDOSCOPY, DIAGNOSTIC N/A 01/10/2023 EGD, UPPER GI ENDOSCOPY performed by Iram Borrero MD at [facility] MAIN OR ??? PRO UPPER GI ENDOSCOPY, DIAGNOSTIC N/A 03/05/2023 EGD, UPPER GI ENDOSCOPY (WRVU 2.09) performed by Iram Borrero MD at [facility] MAIN OR Active Non-Hospital Problems Diagnosis ? ? Severe obesity (BMI >= 40) ??? CHUN (obstructive sleep apnea) ??? Pain in right foot ??? Glaucoma ??? Fibromyalgia ??? Osteoarthritis, multiple sites ??? Adult BMI 40.0-44.9 kg/sq m ??? Depression with anxiety ??? Calculi, ureter ??? Back pain ??? Mood disorder ??? Chronic pelvic pain in female ??? Unspecified dyspareunia ??? Endometriosis ??? Irritable bowel syndrome with diarrhea Social History: Patient lives with boyfriend, 2 dogs, 2 cats and a fish Home Setup: FOS to second floor apartment, 4STE apartment building w B handrails, tub shower DME: crutches Baseline ADL/Mobility: Prior to gastric bypass in December, pt was Independent with all ADLs, IADLs, driving, since gastric bypass and symptom onset, pt requiring assistance from boyfriend for toilettransfers, ambulation and IADLs. Pt Precautions/Special Considerations: Full Code, Fall risk, orthostatic hypotension, significant dizziness Subjective: I'm really dizzy Objective: Seen today for OT evaluation. Cognitive Status/Behavior: ?? Behavior / Mood: alert and cooperative ?? Alert and oriented to: person, place, time and situation Pt reported Mar 30 2023 ?? Follows commands: 2 step ?? Attention: WFL ?? Safety awareness: decreased insight into deficits Vision & Perception: ?? corrective lenses for reading and corrective lenses for distance pt reports not wearing her glasses, when asked why pt was unable to provide answer. Glasses not with pt in hospital Communication: WFL Range of motion, strength, coordination: Hand dominance: right Bilateral UEs: ROM WFL, R + L strength grossly 4+/5 LE limitations: deconditioned Sensation: grossly intact per pt Activities of Daily Living: Grooming: Set up assist (pt washed face with washcloth while supine) Toileting: Transfer: CGA to bedside commode Hygiene: SBA (pt able to perform concepcion care while sitting on bedside commode) Functional Mobility: Supine to sit: SBA Sit to stand: CGA Ambulation: CGA stand pivot transfer to bedside commode Stand to sit: CGA Sit to supine: SBA Balance: Sitting balance: Fair + Standing balance:Fair + w hand held support Vitals: 127/ 85, 97bpm, SpO2 Pain: no c/o pain throughout session Skin: R forearm IV, L forearm IV Education: patient have been educated on Role of occupational therapy/rehabilitation, Transfers, ADL, Positioning, Safety, Functional Mobility, Balance, Recommendations and Discharge planning and verbalize and demonstrate understanding. Patient status, treatment, and mobility recommendations discussed with nursing. Assessment: Pt has been seen for occupational therapy evaluation. Leandra Wilks presents with the following performance skill deficits and client factors: decreased activity tolerance, decreased strength, decreased sitting / standing balance and deconditioning. These performance deficits have led to activity limitations and participation restrictions in the following areas of occupation: dressing, bathing, toileting, transfers / mobility, home management, leisure, driving and community mobility. Overall, pt performing below baseline functionally. Pt globally deconditioned and requiring assistance for toilet transfers. Pt able to complete grooming tasks with set up assist. Pt dizzy throughout therapy session. Pt has assistance of boyfriend at home throughout the day. Depending on pt medical status, pt may be able to return home with assistance from boyfriend when medically ready but short rehab stay may be beneficial based on todays evaluation. Pt would benefit from further inpatient OT interventions to address performance deficits and maximize participation and independence with occupations of daily living. Discharge recommendation is based on the patient's current physical impairments, prior functional status, potential to return to prior level of function, patient motivation, reported home support, potential for functional gains, current level of endurance, reported home environment and anticipated trajectory of progress??and may change based on patient progress during this hospitalization. Equipment needs at discharge: to be determined Anticipated Discharge Dispostion: to be determined pending medical status & functional progression, home with supervision Other Recommendations: ?? Utilize upright chair position using bed features or transfer to recliner chair as appropriate with CGA ?? Ambulate as tolerated CGA ?? Encourage participation in ADL's by providing set up A on tray table and physical assist only asneeded Other Recommendations: No other consults recommended at this time. Goals: To be achieved by 04/03/23. Pt will be Independent with LB dressing Pt will be Independent with LB bathing Pt will be Independent with toileting tasks and toilet transfers Pt will complete 3 grooming tasks while standing at sink Pt will Independently ambulate functional household distances Pt will recall the 3 Ps of energy conservation (Plan, Pace, Prioritize) 100% of the time Plan: OT: Therapy Frequency (OT): 1-3 times/wk Planned OT interventions: Transfers, ADL, Exercise, Breathing exercises, Positioning, Safety, Functional Mobility, Activity pacing/Energy conservation, Home Management, Recommendations and Discharge planning. Total Minutes, Occupational Therapy: 34 (Eval ([id number])) 2017 OT Evaluation Code Rationale: ?? Diagnosis & Pertinent Co-Morbidities affecting Plan of Care: see PMHx ?? Occupational Profile & Client History: Brief Expanded Extensive X ?? Assessment of Occupational Performance: 1-3 performance deficits 3-5 performance deficits X 5 + performance deficits ?? Clinical Decision Making: Low Moderate High X Clinical decision making of moderate complexity using standardized patient assessment instrument and measurable assessment of functional outcome. Pager: [phone] Pito Baltazar OT 03/20/2023 Occupational Therapy Rehabilitation Department * Op Note - Gerber Salomon MD - 03/20/2023 11:55 AM EDT DH Operative Note Patient Name: Leandra Wilks : [id number] MR#: [id number] Case Date: 03/20/2023 Surgeon: Surgeon(s) and Role: * Gerber Salomon MD - Primary Procedure(s): EGD, UPPER GI ENDOSCOPY (WRVU 2.09) Please see Provation report for details. * Consult Note - Felicia Lee MD - 03/20/2023 5:43 AM EDT Images from the original note were not included. DIVISION OF GASTROENTEROLOGY & HEPATOLOGY INITIAL CONSULT REQUESTING PROVIDER: Iram Borrero MD NAME: Leandra Wilks : 1980 Reason for consult: dysphagia, abnormal LFTs HPI: 43 y.o. female??with medical history significant for morbid obesity, GERD, CHUN, IBS, depression andlaparoscopic renato en y gastric bypass on 01/10/23 who has struggled with dysphagia and abdominal pain since surgery who presents 03/18/23 with continued dysphagia, nausea/vomiting and abdominal pain. We are consulted given ongoing dysphagia, abd pain, N/V as well as abnormal LFTs. As for surgery, she had this in Dec of this year. Since then, she has had persistent nausea vomiting and dysphagia. There was an attempt to obtain barium swallow yesterday but pt was unable to tolerate. She did have EGD on 03/05 which showed patent GJ and renato limb. Additionally, she has had abnormal LFTs and is pending an MRCP given c/f choledocholithiasis vs afferent loop syndrome. She is notably s/p CCY. On meeting her today, she notes she has been having ongoing trouble with swallowing the whole time - she notes it is more of a sensation of food getting stuck in the back of her throat. She denies sensation of globus, no burning sensation or reflux. She has also had development of severe, sharp pain over last 3 weeks, as well as nausea and vomiting for the last 2 weeks. No changes in meds. No fevers, but sometimes night sweats. Has not been having much PO intake. Also having diarrhea, at least 1 episode a day. Losing a significant amt of weight she thinks. As for pain, this is localized to LUQ. Labs: WBC 9.4, Hgb 12, Plts 272 Na 135, K 3.1, Mg 0.69, P 1.0 Tbili 1.4, Alk phos 152, AST 74, ALT 87, Lipase 156 MRCP: ROS: 10-system ROS negative other than that noted above PAST MEDICAL & SURGICAL HX: No past medical history on file. Past Surgical History: Procedure Laterality Date ??? ABDOMINAL EXPLORATION SURGERY 10/31/2004 b/l salpingectomy and removel enodmetrial implantsin cul de sac ??? APPENDECTOMY ??? CARPAL TUNNEL RELEASE Bilateral ??? CHOLECYSTECTOMY ??? HYSTERECTOMY, VAGINAL 05/12/2015 ??? PRO LAP GASTRIC BYPASS/RENATO-EN-Y N/A 01/10/2023 @LAPAROSCOPIC GASTROPLASTY W/ RENATO-EN-Y CONSTRUCTION (WRVU 29.4) performed by [facility]at [facility] MA[facility] OR ??? PRO UPPER GI ENDOSCOPY, DIAGNOSTIC N/A 01/10/2023 EGD, UPPER GI ENDOSCOPY performed by Iram Borrero MD at [facility] MAIN OR ??? PRO UPPER GI ENDOSCOPY, DIAGNOSTIC N/A 03/05/2023 EGD, UPPER GI ENDOSCOPY (WRVU 2.09) performed by Iram Borrero MD at [facility] MAIN OR SOCIAL HX: Social History Socioeconomic History ??? Marital status: Spouse name: Not on file ??? Number of children: Not on file ??? Years of education: Not on file ??? Highest education level: Not on file Occupational History ??? Not on file Tobacco Use ??? Smoking status: Never ??? Smokeless tobacco: Never Vaping Use ??? Vaping Use: Never used Substance and Sexual Activity ??? Alcohol use: Not Currently ??? Drug use: Not Currently ??? Sexual activity: Not on file Other Topics Concern ??? Not on file Social History Narrative ??? Not on file Social Determinants of Health Financial Resource Strain: Not on file Food Insecurity: Not on file Transportation Needs: Not on file Physical Activity: Not on file Housing Stability: Not on file FAMILY HX: No family history on file. MEDICATIONS Medication list personally reviewed Home Meds: Medications Prior to Admission Medication Sig Dispense Refill Last Dose ??? Oxytrol 3.9 mg/24 hr Patch Semiweekly Change 1 patch on the skin twice a week. Past Month ??? pantoprazole EC (Protonix) [address] tablet Take 20 mg by mouth daily. Past Week ??? sucralfate (Carafate) 1 gram tablet Take 1 tablet by mouth 4 times daily for 30 days. Crush tablet and take with small amount of liquid 120 tablet 0 Past Month ??? cholecalciferol, Vitamin D3, 50 mcg (2,000 unit) Capsule Take 1 capsule by mouth daily. Past Month ??? ondansetron ODT (Zofran-ODT) 4 mg Tablet, Rapid Dissolve Take 1 tablet by mouth every 8 hours as needed for Nausea. 20 tablet 0 03/19/2023 ??? Emgality Pen 120 mg/mL Pen Injector Inject 120 mg as directed every 30 days. Past Month ??? propranoloL (Inderal) 20 mg Tablet Take 20 mg by mouth 2 times daily. Past Month ??? lamoTRIgine (LaMICtal) 150 mg Tablet Take 150 mg by mouth 2 times daily. Past Month ??? cyclobenzaprine (Flexeril) 5 mg Tablet Take 5 mg by mouth 3 times daily as needed. Past Month ??? FLUoxetine (PROzac) 20 mg Capsule Take 20 mg by mouth Daily. Past Month ??? latanoprost (XALATAN) 0.005 % Drops Place 1 drop into both eyes nightly. 3 Past Week ??? [DISCONTINUED] omeprazole (PriLOSEC) [address] capsule Take 1 capsule by mouth 2 times daily for30 days. 60 capsule 0 ??? Certavite-Antioxidant 18-400 mg-mcg Tablet Take 1 tablet by mouth daily. Unknown ??? [DISCONTINUED] prochlorperazine (Compazine) 10 mg tablet TAKE ONE TABLET BY MOUTH THREE TIMES ADAY FOR 7 DAYS ??? [DISCONTINUED] polyethylene glycoL (Miralax) 17 gram/dose Powder Take 17 g by mouth daily. ??? [DISCONTINUED] acetaminophen (Tylenol) 650 mg/20.3 mL Solution Take 20.3 mLs by mouth every 6 hours as needed. ??? [DISCONTINUED] docusate sodium (Colace) 100 mg Capsule Take 1 capsule by mouth 2 times daily asneeded for Constipation. ??? [DISCONTINUED] oxybutynin (DITROPAN XL) 15 mg Tablet Extended Rel 24 hr 15 mg daily. ??? PROAIR HFA 90 mcg/actuation HFA Aerosol Inhaler Inhale 1 puff into the lungs every 6 hours as needed. 2 Unknown Current Meds: Scheduled: ??? sodium chloride 0.9 % (flush) 5 mL Intravenous BID ??? pantoprazole 40 mg Intravenous Daily ??? FLUoxetine 20 mg Oral Daily ??? lamoTRIgine 150 mg Oral BID ??? propranoloL 20 mg Oral BID ? ? sucralfate 1 g Oral 4 Times Daily AC & HS ??? scopolamine 1 patch Transdermal Q72H And ??? Patch Verification 1 patch Transdermal BID ??? docusate sodium 100 mg Oral BID ??? enoxaparin 40 mg Subcutaneous Nightly ??? acetaminophen 1,000 mg Intravenous Q8H SUNNY Drips: ??? lactated Ringers 1,000 mL (03/19/23 0337) PRN: sodium chloride 0.9 % (flush), lidocaine, cyclobenzaprine, albuteroL, metoclopramide, ondansetron OR ondansetron, glucose 40% oral geL OR dextrose 10% OR glucagon Allergies: No Known Allergies OBJECTIVE Vitals: T Temp: [36.3 ??C (97.3 ??F)-37 ??C (98.6 ??F)] HR Heart Rate: [76-107] BP BP: (128-156)/(84-109) RR Resp: [10-18] SpO2 SpO2: [96 %-100 %] 03/18 0701 - 03/19 0700 In: 1408.3 [I.V.:908.3] Out: 570 [Urine:570] Wt Last 78.5 kg (173 lb) Admit 78.93 kg Physical Exam: CONST: Awake, alert, no acute distress HEENT: moist mucous membranes, no oral thrush GI: well-healed scars, abdomen soft, non-tender, non-distended, normoactive bowel sounds, tympanic to percussion MSK: legs warm, palpable pulses b/l, no significant edema SKIN: No jaundice, rash, or bruising NEURO: Grossly intact, moves all extremities PSYCH: Pleasant, appropriate affect Labs: Labs personally reviewed in eDH CBC: Recent Labs 03/19/23 03403/18/23 1549 WBC 9.4 10.2* HGB 12.0 14.4 PLATELET 272 350 MCV 80.2* 81.2* RDWCV 14.3* 14.4* COAG: No results for input(s): PTT, INR, PT in the last 168 hours. CHEM: Recent Labs 03/19/23 0349 03/18/23 2308 03/18/23 1549 CREATININE 0.41* 0.40* 0.47* BUN 8 11 14 NA 135 134* 138 K 3.1* 3.3* 3.0* CL 97* 95* 92* CO2 27 26 28 MAGNESIUM 0.69 -- -- CALCIUM 8.7 8.6 9.7 HEPATIC: Recent Labs 03/18/23 1549 BILITOT 1.4* BILIDIR 0.6* ALKPHOS 152* AST 74* ALT 87* ALBUMIN 4.4 LIPASE 156* INFLAMM: No results for input(s): CRP in the last 168 hours. IMAGING: Reports and images personally reviewed in e[facility]. Images independently interpreted. XR Fluoro Barium Swallow (Double Contrast) Final Result 1. Exam limited because only 2 swallows were completed. 2. No obstruction or intestinal dilatation and normal appearance of fundal pouch. Contrast passes rapidly through the gastrojejunal anastomosis into small bowel segments. 3. Small sliding hiatal hernia. Thank you for letting us participate in the care of this patient. If you are a health care provider and have any questions regarding this report, please contact the number below. For patients who have questions please contact the health direct care staffer that requested your imaging first. Electronically signed by: Poppy Webster MD, [facility] ([phone]), at 03/19/2023 1:29 PM Film Library- Storage Only CT Abdomen & Pelvis Final Result Film Library- Storage Only Ultrasound Study Final Result MRI Cholangiopancreatography wwo Contrast (Results Pending) ENDOSCOPY: Reports and images personally reviewed in e[facility] ASSESSMENT & PLAN: 43yo F w/recent laparoscopic renato en y gastric bypass on 01/10/23 who has struggled with dysphagia and abdominal pain since surgery who presents 03/18/23 with continued dysphagia, nausea/vomiting and abdominal pain. Overall, suspect dysphagia could be related to post surgical changes but worth pursuing EGD. It is interesting that sx are localized to back of throat. Of note, did have EGD 03/05 which appeared normal but given persistence of sx and changes with new pain, nausea and vomiting, worth repeating. Barium swallow yield unfortunately not great study. 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 Strange presentation for this and not clear if this is causing or related to her sx. No indication for ERCP given this, but could check for IgG4 disease. Recommendations: - NPO for EGD today - No role for ERCP - IgG4 level Patient seen with Dr. Rupali Lee MD PGY-4, Gastroenterology Associated attestation - Raúl Zapien MD - 03/20/2023 2:49 PM EDT Attending attestation: I interviewed and examined the patient with Dr. Lee on rounds. I confirm the history and macias physical findings outlined in this note. The assessment and plan were formulated in discussion with meat the time of this encounter, and I agree with them as documented. Plan for EGD. Will need outpatient Hepatology referral to evaluate for PSC. Hard to connect symptoms of dysphagia/ globus with PSC at this time, but will reconsider pending EGD. Raúl Zapien MD Section of Gastroenterology [facility] * Plan of Care - Cecily Sloan RN - 03/20/2023 2:57 AM EDT OUTCOME EVALUATION NOTE: ?? OUTCOME SUMMARY: ?? Pt AOX4 denies CP/SOB +nausea and dry heaving; VSS ex BP elevated 150s/100; pt looks uncomfortable-grimacing frq suffering with epigstric pain & nausea-heat applied & prns given to their fullest see MAR- paged team for IV pain relief which has helped (0.2 mg dilaudid Q4) ; voiding on BSC; unable to complete lamotrigine-took 50 mg and unable to take carafate due to nausea; promoted rest ?? PLAN MOVING FORWARD: NPO Monitor Pain & Nausea D/c planning ?? INDIVIDUALIZED FALL PREVENTION: Patient is currently a high risk to Fall. Patient educated on bed/chair alarm, demonstrates proper use of call burden and verbalizes understanding of fall preventions implemented. Patient-specific fall risk factors per assessment: [current deficits]: Pain, Medications, Hospital Environment, unsteady gait ?? Assistance [level of assistance required for transfers and ambulation]: Standby assist ?? Supervision [direct monitoring required during toileting and ADLs]: Eyes on per unit protocol when OOB/with ADL's ?? Surveillance [continuous indirect monitoring]: Masimo, Purposeful Rounding, Nurse Knowledge Exchange * Initial Assessments - Janis Jeffries RN - 03/19/2023 4:10 PM EDT Office of Care Management Initial Assessment Medical record reviewed. Plan of care and patient status discussed with direct care Registered Nurse and/or Care Team in multidisciplinary rounds. Reason for Hospitalization: i've been feeling really sick for about 3 weeks straight and barely able to get out of bed. continued dysphagia, nausea/vomiting and abdominal pain. Last COVID test: Present on Admission: ??? Abdominal pain Hospitalizations Within the Past 30 Days: no previous admission in last 30 days Patient receiving hospital care under Inpatient status. Admission order reviewed. Health/Prescription Coverage: Primary Insurance: [place] Payor: [place] / Plan: [place] PRIMARY CARE PLUS / Product Type: *No Product type* / Secondary Insurance: N/A ; Prescription Coverage: Yes Preferred Pharmacy: [id number] - [place], [place] - [address] [facility] [address] [facility] [id number] [facility] [address] [facility] [address] Advance Care Planning: Attempt Cardiopulmonary Resuscitation - Inpatient <no information> -Advanced Directive: (not on file) Current Functional Ability: Assistive Person Functional Status Prior to Admission: Independent Home Environment: Others in the home: significant other. Current Living Arrangements: home/apartment/condo. Accessibility Concerns:second floor apartment, FOS to manage. Current DME: none [address] [place] [id number] Social & Family Supports: All names listed below confirmed with patient as current and correct Extended Emergency Contact Information Primary Emergency Contact: JAXON BLAKE Address: [address] [place] [id number] [place] [address] of [place] Relation: Life Partner Secondary Emergency Contact: Ozzy Granado Address: [address] [facility] [place] of [place] Relation: Child Current Care Provided by: self Transportation: no concerns Transportation Anticipated: family or friend will provide Assessment: Patient with no apparent RNCM/SW needs at this time. No housing, transportation, insurance, resources concerns identified at this time. Supports in place to achieve a safe post-hospital transition. No identified barriers to accessing necessary care and/or follow-up after discharge. Plan: Patient to d/c to home via private car when medically ready. Registered Nurse Cancer Program Director / Internet Marketing Analyst will continue to follow patient???s progress and remain available if situation changes for coordination of care, psychosocial support and/or discharge planning. Office of Care Management Janis HEDRICK manager continuous improvement Team Cancer Program DirectorPlant Electrical Engineer of Care Management [email or web address] Pager #[phone] * Consult Note - Emmanuel Rodriguez, [facility] - 03/19/2023 1:00 AM EDT TelePharmacy Home Medication List Update for Medication Reconciliation 03/19/23 1:00 AM Leandra Wilks 1980 No Known Allergies ??? Person Interviewed: patient ??? Quality of Interview/accuracy of medication list: excellent ??? Sources used to compile medication list: [x] Epic medication list [x] SureScripts [] PCP/Specialist list [] Retail pharmacy [] Patient list [] MAR [] Other ??? Changes made to home medication list: o Additions: - Oxytrol 3.9mg transdermal BID - Protonix 20mg Po daily o Deletions: - Omeprazole - Ditropan XL - Miralax - Compazine - Tylenol - Colace o Changes: - none ??? Additional Notes: patient hadn't taken any of her medications, besides zofran and protonix, forabout 3 weeks ??? Recommended changes: none The home medication list is now updated to the best of my knowledge and is ready to be reconciled by the provider. Please contact the TelePharmacy Medication Reconciliation Pharmacist at for any questions. Emmanuel Rodriguez RPH * ED Triage - Marlene Nathan RN - 03/18/2023 1:32 PM EDT Pt brought in for nausea/ vomiting since Bariatric surgery happened about a month ago. Pt states has not been able to keep anything down for a month, pt is not eating solid foods. Mostly eating soft foods and unable to keep many of those down. Pt states fels dehydrated. Pt states has felt some chills at home. Pt is having abdominal pain in both upper regions and around belly button. Pt denies anyurinary sx, is having normal BM. documented in this encounter Plan of Treatment Scheduled Procedures Name Priority Associated Diagnoses Date/Ti me COLONOSCOPY, DIAGNOSTIC (WRV U 3.26) Biliary stricture Screening for colon cancer Scheduled Referrals Name Type Priority Associated Diagnoses Orde r Schedule Referral to Physical Therapy Outpatient Referral Routine Dizziness Physical deconditioning Diplopia Ordered: 03/29/2023 Referral to ENT Outpatient Referral Routine Dizziness Diplopia Ordered: 03/29/2023 documented as of this encounter Goals Goal [...] psychologist to work on eating behaviors Health Leader Assembler is sending hand-outs with exercises for mindful [...] Procedure Name Priority Date/Time Associated Diagnosis Comments HEMOGRAM Routine 03/27/2023 3:50 AM EDT DIFFERENTIAL, AUTOMATED Routine 03/27/20 3:50 AM EDT HC CBC,PLT & AUTO DIFF Routine 3:50 AM EDT HC PHOSPHORUS, SERUM Routine 03/27/2023 3:50 AM EDT HC MAGNESIUM, SERUM Routine 03/27/2023 3 :50 AM EDT COMPREHENSIVE METABOLIC PANE L (NON-FASTING) Routine 03/27/2023 3:50 AM EDT POCT GLUCOSE Routine 03/26/2023 7:43 PM EDT HC THYROID STIMULATING HORMONE, SERUM Routine 03/26/2023 4:00 AM EDT HC C-REACTIVE PROTEIN Routine 03/26/2023 4:00 AM EDT LAMOTRIGINE LVL Routine 03/26/2023 4:00 AM EDT HEMOGRAM Routine 03/26/2023 4:00 AM EDT DIFFERENTIAL, AUTOMATED Routine 03/26/20 4:00 AM EDT GOLD TUBE HOLD Routine 03/26/2023 4:00 AM EDT GREEN TUBE HOLD Routine 03/26/2023 4:00 AM EDT IRON AND TIBC Routine 03/26/2023 4:00 AM EDT VITAMIN D, 25-HYDROXY Routine 03/26/2023 4:00 AM EDT HC ESR-SEDIMENTATION RATE, BLOOD Routine 03/26/2023 4:00 AM EDT HC CBC,PLT & AUTO DIFF Routine 4:00 AM EDT HC PHOSPHORUS, SERUM Routine 03/26/2023 4:00 AM EDT HC MAGNESIUM, SERUM Routine 03/26/2023 4 :00 AM EDT FERRITIN Routine 03/26/2023 4:00 AM EDT HC CREATINE PHOSPHOKINASE, SERUM Routine 03/26/2023 4:00 AM EDT COMPREHENSIVE METABOLIC PANE L (NON-FASTING) Routine 03/26/2023 4:00 AM EDT HEMOGRAM Routine 03/25/2023 3:31 AM EDT DIFFERENTIAL, AUTOMATED Routine 03/25/20 23 3:31 AM EDT HC CBC,PLT & AUTO DIFF Routine 3:31 AM EDT HC PHOSPHORUS, SERUM Routine 03/25/2023 3:31 AM EDT HC MAGNESIUM, SERUM Routine 03/25/2023 3 :31 AM EDT COMPREHENSIVE METABOLIC PANE L (NON-FASTING) Routine 03/25/2023 3:31 AM EDT MRI ORBIT WWO CONTRAST Routine 11:16 AM EDT MRI BRAIN WWO CONTRAST (GENERIC) Routine 03/24/2023 11:16 AM EDT HC ALANINE AMINO TRANSFERASE (ALT) Routine 03/24/2023 5:51 AM EDT ASPARTATE AMINOTRANSFERASE Routine 03/24 5:51 AM EDT HC VENIPUNCTURE Routine 03/24/2023 5:51 AM EDT HEMOGRAM Routine 03/24/2023 3:51 AM EDT DIFFERENTIAL, AUTOMATED Routine 03/24/20 23 3:51 AM EDT HC CBC,PLT & AUTO DIFF Routine 3:51 AM EDT HC PHOSPHORUS, SERUM Routine 03/24/2023 3:51 AM EDT HC MAGNESIUM, SERUM Routine 03/24/2023 3 :51 AM EDT COMPREHENSIVE METABOLIC PANE L (NON-FASTING) Routine 03/24/2023 3:51 AM EDT HEMOGRAM Routine 03/23/2023 8:07 AM EDT DIFFERENTIAL, AUTOMATED Routine 03/23/20 8:07 AM EDT HC VENIPUNCTURE Routine 03/23/2023 8:07 AM EDT HEMOGRAM Routine 03/23/2023 3:39 AM EDT DIFFERENTIAL, AUTOMATED Routine 03/23/20 3:39 AM EDT HC CBC,PLT & AUTO DIFF Routine 3:39 AM EDT HC PHOSPHORUS, SERUM Routine 03/23/2023 3:39 AM EDT HC MAGNESIUM, SERUM Routine 03/23/2023 3 :39 AM EDT COMPREHENSIVE METABOLIC PANE L (NON-FASTING) Routine 03/23/2023 3:39 AM EDT POCT GLUCOSE Routine 03/22/2023 9:46 PM EDT LYSIS OF ADHESIONS,ABD. 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 LAPAROSCOPY, DIAGNOSTIC Routine 03/22/20 6:41 PM EDT POCT GLUCOSE Routine 03/22/2023 2:32 PM EDT HEMOGRAM Routine 03/22/2023 4:17 AM EDT DIFFERENTIAL, AUTOMATED Routine 03/22/20 4:17 AM EDT HC CBC,PLT & AUTO DIFF Routine 4:17 AM EDT HC PHOSPHORUS, SERUM Routine 03/22/2023 4:17 AM EDT HC MAGNESIUM, SERUM Routine 03/22/2023 4 :17 AM EDT COMPREHENSIVE METABOLIC PANE L (NON-FASTING) Routine 03/22/2023 4:17 AM EDT HC PCH THIAMIN LVL(VITAMIN B 1) WB-LEAVITT Routine 03/21/2023 6:00 PM EDT HC FOLATE, SERUM Routine 03/21/2023 6:00 PM EDT HC VITAMIN B12 SERUM Routine 03/21/2023 6:[address] HEAD WO CONTRAST (GENERIC) Routine 12:34 PM EDT HEMOGRAM Routine 03/21/2023 3:46 AM EDT DIFFERENTIAL, AUTOMATED Routine 03/21/20 3:46 AM EDT HC IGG 4 Routine 03/21/2023 3:46 AM EDT HC VENIPUNCTURE Routine 03/21/2023 3:46 AM EDT HC PHOSPHORUS, SERUM Routine 03/21/2023 3:46 AM EDT HC MAGNESIUM, SERUM Routine 03/21/2023 3 :46 AM EDT COMPREHENSIVE METABOLIC PANE L (NON-FASTING) Routine 03/21/2023 3:46 AM EDT POCT GLUCOSE Routine 03/21/2023 3:45 AM EDT POCT GLUCOSE Routine 03/21/2023 12:02 AM EDT POCT GLUCOSE Routine 03/20/2023 9:38 PM EDT Upper GI Endoscopy, Diagnost ic (65621) 03/20/2023 11:51 AM EDT dysphagia UPPER GI ENDOSCOPY Routine 03/20/2023 10:26 AM EDT HEMOGRAM Routine 03/20/2023 2:32 AM EDT DIFFERENTIAL, AUTOMATED Routine 03/20/20 2:32 AM EDT HC CBC,PLT & AUTO DIFF Routine 2:32 AM EDT HC PHOSPHORUS, SERUM Routine 03/20/2023 2:32 AM EDT HC MAGNESIUM, SERUM Routine 03/20/2023 2 :32 AM EDT HEPATIC FUNCTION PANEL Routine 2:32 AM EDT BASIC METABOLIC PANEL (NON-FASTING) Routine 03/20/2023 2:32 AM EDT MRI CHOLANGIOPANCREATOGRAPHY Routine 12/2022 5:40 PM EDT HC PHOSPHORUS, SERUM Routine 03/19/2023 3:32 PM EDT HC MAGNESIUM, SERUM Routine 03/19/2023 3 :32 PM EDT BASIC METABOLIC PANEL (NON-FASTING) Routine 03/19/2023 3:32 PM EDT XR FLUORO BARIUM SWALLOW (DOUBLE CONTRAST) Routine 03/19/2023 1:22 PM EDT POCT GLUCOSE Routine 03/19/2023 11:44 AM EDT POCT GLUCOSE Routine 03/19/2023 7:42 AM EDT HEMOGRAM Routine 03/19/2023 3:49 AM EDT DIFFERENTIAL, AUTOMATED Routine 03/19/20 3:49 AM EDT HC CBC,PLT & AUTO DIFF Routine 3:49 AM EDT HC PHOSPHORUS, SERUM Routine 03/19/2023 3:49 AM EDT HC MAGNESIUM, SERUM Routine 03/19/2023 3 :49 AM EDT BASIC METABOLIC PANEL (NON-FASTING) Routine 03/19/2023 3:49 AM EDT POCT GLUCOSE Routine 03/19/2023 3:32 AM EDT POCT GLUCOSE Routine 03/19/2023 2:38 AM EDT POCT GLUCOSE Routine 03/19/2023 1:22 AM EDT POCT GLUCOSE Routine 03/19/2023 12:30 AM EDT BLOOD GAS 2 VENOUS Routine 03/18/2023 11:10 PM EDT HC BETA-HYDROXYBUTYRIC ACID STAT 11/2022 11:08 PM EDT BASIC METABOLIC PANEL (NON-FASTING) STAT 03/18/2023 11:08 PM EDT POCT GLUCOSE Routine 03/18/2023 10:50 PM EDT EKG 12-LEAD STAT 03/18/2023 9:35 PM EDT EKG 12-LEAD STAT 03/18/2023 8:24 PM EDT HC BETA-HYDROXYBUTYRIC ACID STAT 0511/2022 5:01 PM EDT HC L-LACTATE STAT 03/18/2023 5:01 PM EDT HEMOGRAM STAT 03/18/2023 3:49 PM EDT DIFFERENTIAL, AUTOMATED STAT 03/18/20 3:49 PM EDT HC CBC,PLT & AUTO DIFF STAT 3:49 PM EDT HC PREALBUMIN, SERUM STAT 03/18/2023 3:49 PM EDT HC LIPASE STAT 03/18/2023 3:49 PM EDT HEPATIC FUNCTION PANEL STAT 3:49 PM EDT BASIC METABOLIC PANEL (NON-FASTING) STAT 03/18/2023 3:49 PM EDT URINALYSIS MICROSCOPIC EXAM STAT 11/2022 1:52 PM EDT URINALYSIS WITH REFLEX CULTURE STAT 0 03/18/2023 1:52 PM EDT URINE CULTURE STAT 03/18/2023 1:52 PM EDT FILM LIBRARY STORAGE ONLY CT ABDOMEN AND PELVIS STAT 03/13/2023 12:00 AM EDT FILM LIBRARY STORAGE ONLY ULTRASOUND STUDY STAT 02/25/2023 12:00 AM EDT documented in this encounter Results * (ABNORMAL) Differential, Automated (03/27/2023 3:50 AM EDT) Neutrophils % 55.1 % [facility] Neutr Abs (ANC) 3.91 1.70 - 6.10 x10(3)/mc L [facility] Lymphocytes % 33.0 % [facility] Lymphocytes Abs 2.3 0.9 - 3.2 x10(3)/mc L [facility] Monocytes % 5.6 % [facility] Monocyte Abs 0.4 0.3 - 0.9 x10(3)/[facility] Eosinophils % 4.9 % [facility] Eosinophils Abs 0.4 0.0 - 0.4 x10(3)/[facility] Basophils % 0.3 % [facility] Basophils Abs 0.0 0.0 - 0.1 x10(3)/[facility] Immature Gran % 1.10 % [facility] Comment: Immature granulocytes(IG's)percentage and absolute count will include metamyelocytes, myelocytes, and promyelocytes. Blood smears from CBCs yielding IG's will be scanned manually for concordance. If this scan disagrees with the automated IG or if promyelocytes are noted, a manual differential will be performed. Reshma Gran Abs 0.08(H) 0.00 - 0.04 x10(3)/[facility] Blood 03/27/2023 3:50 AM EDT 03/27/2023 4:21 AM EDT Narrative Resulting Agency Comment Spec In Lab Natalee Winn MD HEMATOLOGY ORDERABLE S [facility] [place] [address] * (ABNORMAL) Hemogram (03/27/2023 3:50 AM EDT) WBC 7.1 4.0 - 9.5 x10(3)/[facility] RBC 3.75(L) 4.00 - 5.21 x10(6)/[facility] Hemoglobin 10.9(L) 11.7 - 15.5 g/dL [facility] Hematocrit 31.5(L) 35.7 - 45.8 % [facility] MCV 84.0 82.6 - 94.4 fL [facility] MCH 29.1 27.1 - 32.0 pg [facility] MCHC 34.6 31.7 - 35.0 g/dL [facility] Platelets 297 145 - 357 x10(3)/[facility] RDWSD 47.8(H) 37.0 - 46.0 [facility] RDWCV 15.9(H) 11.5 - 14.1 % [facility] MPV 9.3 7.6 - 12.9 [facility] nRBC % Auto 0.0 % [facility] nRBC Abs Auto 0.000 0.000 - 0.000 x10(3)/[facility] Blood 03/27/2023 3:50 AM EDT 03/27/2023 4:21 AM EDT Narrative Resulting Agency Comment Spec In Lab Natalee Winn MD HEMATOLOGY ORDERABLE S [facility] [place] [address] * (ABNORMAL) Comprehensive metabolic panel (non-fasting) (03/27/2023 3:50 AM EDT) Glucose Lvl 86 65 - 199 mg/dL [facility] Comment:Diabetes: >=200 mg/d L plus symptoms BUN 10 8 - 18 mg/dL [facility] Comment:result rechecked- Creatinine 0.74 0.70 - 1.20 mg/dL [facility] Sodium 141 135 - 145 mmol/L [facility] Potassium 3.5 3.5 - 5.0 mmol/L [facility] Comment: Please note: ??Patients with WBC >100,000 may have falsely elevated Potassium levels. ??For accurate Potassium quantification in these patients send serum separator tube (gold top) for subsequent determinations. ??Contact the Clinical Chemistry Laboratory if there are any questions. Chloride 105 98 - 107 mmol/L [facility] CO2 25 22 - 31 mmol/L [facility] Anion Gap 11 5 - 15 mmol/L [facility] Calcium 8.7 8.5 - 10.5 mg/dL [facility] Total Protein 5.3(L) 6.1 - 8.0 g/dL [facility] Albumin 3.2 3.2 - 5.2 g/dL [facility] AST 40(H) 0 - 30 unit/L [facility] ALT 42(H) 0 - 30 unit/L [facility] Alk Phos 111(H) 35 - 105 unit/L [facility] Total Bilirubin 0.7 0.2 - 1.3 mg/dL [facility] Estimated GFR 102 >=60 mL/min/1. 73 m?? [facility] Comment: This patient's estimated GFR [...] and symptoms in addition to eGFR. Blood 03/27/2023 3:50 AM EDT 03/27/2023 4:19 AM EDT Narrative Resulting Agency Comment Spec In Lab Natalee Winn MD CHEMISTRY ORDERABLES [facility] [place] [address] * Phosphorus (03/27/2023 3:50 AM EDT) Phosphorus 4.3 2.5 - 4.5 mg/dL [facility] Blood 03/27/2023 3:50 AM EDT 03/27/2023 4:19 AM EDT Narrative Resulting Agency Comment Spec In Lab Natalee Winn MD CHEMISTRY ORDERABLES Performing Organization Address City/[facility]/ZIP Co de Phone Number [facility] [place] [address] * Magnesium (03/27/2023 3:50 AM EDT) Magnesium 0.85 0.69 - 1.07 mmol/L [facility] Blood 03/27/2023 3:50 AM EDT 03/27/2023 4:19 AM EDT Narrative Resulting Agency Comment Spec In Lab Natalee Winn MD CHEMISTRY ORDERABLES Performing Organization Address [facility] Co de Phone Number [facility] [place] [address] * POCT Glucose (03/26/2023 7:43 PM EDT) POC Glucose 89 65 - 199 mg/dL [facility] Comment: Supplemental ranges: <140 mg/dL before meals <180 mg/dL all other times of the day Blood 03/26/2023 7:43 PM EDT 03/26/2023 7:43 PM EDT Iram Borrero MD POINT OF CARE TEST O RDERABLES Performing Organization Address [facility] Co de Phone Number [facility] [place] [address] * Lamotrigine Lvl (03/26/2023 4:00 AM EDT) Lamotrigine Lvl 3.6 3.0 - 15.0 mcg/mL [facility] Comment: ADDITIONAL INFORMATION This test was developed and its performance characteristics determined by [facility] in a manner consistent with CLIA requirements. This test has not been cleared or approved by the U.S. Food and Drug Administration. Test Performed by: [facility] [address] [place] [address] Infrastructure Architect: Erlin Orlando M.D. Ph.D.; CLIA# [id number] Blood Venous Draw / Unknown 03/26/2023 4:00 AM EDT 03/26/2023 3:52 PM EDT Narrative Resulting Agency Comment Spec In Lab Natalee Winn MD CHEMISTRY ORDERABLES Performing Organization Address City/[facility]/ZIP Co de Phone Number [facility] [place] [address] * (ABNORMAL) Ferritin (03/26/2023 4:00 AM EDT) Ferritin 778(H) 15 - 150 ng/mL [facility] Comment: Pediatric reference ranges not verified at [facility], interpret with caution. Reference ranges for females greater than 50 years of age approach values for men, i.e., 30-400 ng/mL. Blood Venous Draw / Unknown 03/26/2023 4:00 AM EDT 03/26/2023 4:37 AM EDT Narrative Resulting Agency Comment Spec In Lab Joan GAINES CHEMISTRY ORDERABLE S Performing Organization Address [facility] Co de Phone Number [facility] [place] [address] * (ABNORMAL) Iron and TIBC (03/26/2023 4:00 AM EDT) Iron 80 30 - 150 mcg/dL [facility] TIBC 226(L) 250 - 450 mcg/dL [facility] Iron Saturation 35 20 - 50 % [facility] Blood Venous Draw / Unknown 03/26/2023 4:00 AM EDT 03/26/2023 4:36 AM EDT Narrative Resulting Agency Comment Spec In Lab Joan GAINES CHEMISTRY ORDERABLE S [facility] [place] [address] * Vitamin D, 25-Hydroxy (03/26/2023 4:00 AM EDT) 25-OH Vit D Total 34 21 - 100 ng/mL [facility] 25-OH Vit D Interp Sufficient [facility] Blood Venous Draw / Unknown 03/26/2023 4:00 AM EDT 03/26/2023 4:37 AM EDT Narrative Resulting Agency Comment Spec In Lab Joan GAINES CHEMISTRY ORDERABLE S Performing Organization Address [facility]/ZIP Co de Phone Number [facility] [place] [address] * Green Tube HOLD (03/26/2023 4:00 AM EDT) [facility] Green Hold Sample in lab. [facility] Blood Venous Draw / Unknown 03/26/2023 4:00 AM EDT 03/26/2023 4:35 AM EDT Natalee Winn MD CHEMISTRY ORDERABLES Performing Organization Address [facility]/ZIP Co de Phone Number [facility] [place] [address] * Gold Tube HOLD (03/26/2023 4:00 AM EDT) [facility] Gold Hold Sample in lab. [facility] Blood Venous Draw / Unknown 03/26/2023 4:00 AM EDT 03/26/2023 4:36 AM EDT Natalee Winn MD CHEMISTRY ORDERABLES Performing Organization Address [facility]/ZIP Co de Phone Number [facility] [place] [address] * (ABNORMAL) Differential, Automated (03/26/2023 4:00 AM EDT) Neutrophils % 54.4 % [facility] Neutr Abs (ANC) 3.65 1.70 - 6.10 x10(3)/[facility] Lymphocytes % 31.2 % [facility] Lymphocytes Abs 2.1 0.9 - 3.2 x10(3)/[facility] Monocytes % 6.0 % [facility] Monocyte Abs 0.4 0.3 - 0.9 x10(3)/[facility] Eosinophils % 6.0 % [facility] Eosinophils Abs 0.4 0.0 - 0.4 x10(3)/[facility] Basophils % 0.6 % [facility] Basophils Abs 0.0 0.0 - 0.1 x10(3)/[facility] Immature Gran % 1.80 % [facility] Comment: Immature granulocytes(IG's)percentage and absolute count will include metamyelocytes, myelocytes, and promyelocytes. Blood smears from CBCs yielding IG's will be scanned manually for concordance. If this scan disagrees with the automated IG or if promyelocytes are noted, a manual differential will be performed. Reshma Gran Abs 0.12(H) 0.00 - 0.04 x10(3)/[facility] LABORATORY Blood 03/26/2023 4:00 AM EDT 03/26/2023 4:35 AM EDT Narrative Resulting Agency Comment Spec In Lab Natalee Winn MD HEMATOLOGY ORDERABLE S [facility] [place] [address] * (ABNORMAL) Hemogram (03/26/2023 4:00 AM EDT) WBC 6.7 4.0 - 9.5 x10(3)/[facility] LABORATORY RBC 4.00 4.00 - 5.21 x10(6)/[facility] LABORATORY Hemoglobin 11.4(L) 11.7 - 15.5 g/dL [facility] LABORATORY Hematocrit 34.0(L) 35.7 - 45.8 % [facility] LABORATORY MCV 85.0 82.6 - 94.4 [facility] LABORATORY MCH 28.5 27.1 - 32.0 pg [facility] LABORATORY MCHC 33.5 31.7 - 35.0 g/dL [facility] LABORATORY Platelets 296 145 - 357 x10(3)/[facility] LABORATORY RDWSD 46.9(H) 37.0 - 46.0 [facility] LABORATORY RDWCV 15.5(H) 11.5 - 14.1 % [facility] LABORATORY MPV 9.1 7.6 - 12.9 [facility] LABORATORY nRBC % Auto 0.0 % [facility] LABORATORY nRBC Abs Auto 0.000 0.000 - 0.000 x10(3)/[facility] LABORATORY Blood 03/26/2023 4:00 AM EDT 03/26/2023 4:35 AM EDT Narrative Resulting Agency Comment Spec In Lab Natalee Winn MD HEMATOLOGY ORDERABLE S [facility] [place] [address] * (ABNORMAL) Comprehensive metabolic panel (non-fasting) (03/26/2023 4:00 AM EDT) Glucose Lvl 82 65 - 199 mg/dL [facility] LABORATORY Comment:Diabetes: >=200 mg/d L plus symptoms BUN 4(L) 8 - 18 mg/dL [facility] LABORATORY Creatinine 0.70 0.70 - 1.20 mg/dL [facility] LABORATORY Sodium 140 135 - 145 mmol/L [facility] LABORATORY Potassium 3.8 3.5 - 5.0 mmol/L [facility] LABORATORY Comment: Please note: ??Patients with WBC >100,000 may have falsely elevated Potassium levels. ??For accurate Potassium quantification in these patients send serum separator tube (gold top) for subsequent determinations. ??Contact the Clinical Chemistry Laboratory if there are any questions. Chloride 104 98 - 107 mmol/L [facility] LABORATORY CO2 25 22 - 31 mmol/L [facility] LABOR[facility]ORY Anion Gap 11 5 - 15 mmol/L [facility] LABORATORY Calcium 8.7 8.5 - 10.5 mg/dL [facility] LABORATORY Total Protein 5.7(L) 6.1 - 8.0 g/dL [facility] LABORATORY Albumin 3.3 3.2 - 5.2 g/dL [facility] LABORATORY AST 41(H) 0 - 30 unit/L [facility] LABOR[facility]ORY ALT 42(H) 0 - 30 unit/L [facility] LABORATORY Alk Phos 119(H) 35 - 105 unit/L [facility] LABORATORY Total Bilirubin 0.6 0.2 - 1.3 mg/dL [facility] LABORATORY Estimated GFR 109 >=60 mL/min/1. 73 m?? [facility] LABORATORY Comment: This patient's estimated GFR [...] and symptoms in addition to eGFR. Blood 03/26/2023 4:00 AM EDT 03/26/2023 4:35 AM EDT Narrative Resulting Agency Comment Spec In Lab Natalee Winn MD CHEMISTRY ORDERABLES [facility] [place] [address] * Phosphorus (03/26/2023 4:00 AM EDT) [facility] Phosphorus 4.4 2.5 - 4.5 mg/dL [facility] LABORATORY Blood 03/26/2023 4:00 AM EDT 03/26/2023 4:35 AM EDT Narrative Resulting Agency Comment Spec In Lab Natalee Winn MD CHEMISTRY ORDERABLES [facility] [place] [address] * Magnesium (03/26/2023 4:00 AM EDT) [facility] Magnesium 0.94 0.69 - 1.07 mmol/L [facility] LABORATORY Blood 03/26/2023 4:00 AM EDT 03/26/2023 4:35 AM EDT Narrative Resulting Agency Comment Spec In Lab Natalee Winn MD CHEMISTRY ORDERABLES Performing Organization Address City/[facility]/ZIP Co de Phone Number [facility] [place] [address] * TSH [place] (03/26/2023 4:00 AM EDT) [facility] TSH 0.47 0.27 - 4.20 mcIU/mL [facility] LABORATORY Comment: Reference Interval (mcIU/mL): Females: ??First Trimester: 0.23-3.88 ??Second Trimester: 0.22-3.90 ??Third Trimester: 0.44-4.66 Blood 03/26/2023 4:00 AM EDT 03/26/2023 4:35 AM EDT Narrative Resulting Agency Comment Spec In Lab Iram Borrero MD CHEMISTRY ORDERABLES [facility] [place] [address] * CK (03/26/2023 4:00 AM EDT) CK, Total 51 0 - 160 unit/L [facility] LABORATORY Blood 03/26/2023 4:00 AM EDT 03/26/2023 4:35 AM EDT Narrative Resulting Agency Comment Spec In Lab Iram Borrero MD CHEMISTRY ORDERABLES Performing Organization Address [facility]/ZIP Co de Phone Number [facility] [place] [address] * CRP, acute inflammation (03/26/2023 4:00 AM EDT) [facility] CRP 4.5 <=4.9 mg/L [facility] LABORATORY Blood 03/26/2023 4:00 AM EDT 03/26/2023 4:35 AM EDT Narrative Resulting Agency Comment Spec In Lab Iram Borrero MD CHEMISTRY ORDERABLES Performing Organization Address [facility] Co de Phone Number [facility] [place] [address] * Sedimentation rate (03/26/2023 4:00 AM EDT) [facility] Sed Rate 16 2 - 37 mm/hr [facility] LABORATORY Comment: Effective October 28, 2019 new capillary photometric technology has resulted in a change in reference ranges. It is recommended that each ESR result be reviewed with its own age appropriate reference range. Blood 03/26/2023 4:00 AM EDT 03/26/2023 4:35 AM EDT Narrative Resulting Agency Comment Spec In Lab Iram Borrero MD HEMATOLOGY ORDERABLE S Performing Organization Address [facility] Co de Phone Number [facility] [place] [address] * (ABNORMAL) Differential, Automated (03/25/2023 3:31 AM EDT) [facility] Neutrophils % 55.0 % [facility] LABORATORY Neutr Abs (ANC) 4.60 1.70 - 6.10 x10(3)/[facility] LABORATORY Lymphocytes % 29.4 % [facility] LABORATORY Lymphocytes Abs 2.5 0.9 - 3.2 x10(3)/[facility] LABORATORY Monocytes % 6.2 % [facility] LABORATORY Monocyte Abs 0.5 0.3 - 0.9 x10(3)/[facility] LABORATORY Eosinophils % 5.7 % [facility] LABORATORY Eosinophils Abs 0.5(H) 0.0 - 0.4 x10(3)/[facility] LABORATORY Basophils % 0.7 % [facility] LABORATORY Basophils Abs 0.1 0.0 - 0.1 x10(3)/[facility] LABORATORY Immature Gran % 3.00 % [facility] LABORATORY Comment: Immature granulocytes(IG's)percentage and absolute count will include metamyelocytes, myelocytes, and promyelocytes. Blood smears from CBCs yielding IG's will be scanned manually for concordance. If this scan disagrees with the automated IG or if promyelocytes are noted, a manual differential will be performed. Reshma Gran Abs 0.25(H) 0.00 - 0.04 x10(3)/[facility] LABORATORY Blood 03/25/2023 3:31 AM EDT 03/25/2023 3:44 AM EDT Narrative Resulting Agency Comment Spec In Lab Natalee Winn MD HEMATOLOGY ORDERABLE S [facility] [place] [address] * (ABNORMAL) Hemogram (03/25/2023 3:31 AM EDT) WBC 8.4 4.0 - 9.5 x10(3)/[facility] LABORATORY RBC 3.77(L) 4.00 - 5.21 x10(6)/[facility] LABORATORY Hemoglobin 10.8(L) 11.7 - 15.5 g/dL [facility] LABORATORY Hematocrit 32.8(L) 35.7 - 45.8 % [facility] LABORATORY MCV 87.0 82.6 - 94.4 fL [facility] LABORATORY MCH 28.6 27.1 - 32.0 pg [facility] MCHC 32.9 31.7 - 35.0 g/dL [facility] LABORATORY Platelets 291 145 - 357 x10(3)/[facility] LABORATORY RDWSD 48.2(H) 37.0 - 46.0 [facility] LABORATORY RDWCV 15.0(H) 11.5 - 14.1 % [facility] LABORATORY MPV 9.8 7.6 - 12.9 [facility] LABORATORY nRBC % Auto 0.0 % [facility] LABORATORY nRBC Abs Auto 0.000 0.000 - 0.000 x10(3)/[facility] LABORATORY Blood 03/25/2023 3:31 AM EDT 03/25/2023 3:44 AM EDT Narrative Resulting Agency Comment Spec In Lab aNtalee Winn MD HEMATOLOGY ORDERABLE S [facility] [place] [address] * (ABNORMAL) Comprehensive metabolic panel (non-fasting) (03/25/2023 3:31 AM EDT) Glucose Lvl 94 65 - 199 mg/dL [facility] LABORATORY Comment:Diabetes: >=200 mg/d L plus symptoms BUN 3(L) 8 - 18 mg/dL [facility] LABORATORY Creatinine 0.61(L) 0.70 - 1.20 mg/dL [facility] LABORATORY Sodium 138 135 - 145 mmol/L [facility] LABOR[facility]ORY Potassium 3.4(L) 3.5 - 5.0 mmol/L [facility] LABORATORY Comment: Please note: ??Patients with WBC >100,000 may have falsely elevated Potassium levels. ??For accurate Potassium quantification in these patients send serum separator tube (gold top) for subsequent determinations. ??Contact the Clinical Chemistry Laboratory if there are any questions. Chloride 100 98 - 107 mmol/L [facility] LABORATORY CO2 22 22 - 31 mmol/L [facility] LABORAT[facility] Anion Gap 16(H) 5 - 15 mmol/L [facility] LABORATORY Calcium 8.8 8.5 - 10.5 mg/dL [facility] LABORATORY Total Protein 5.6(L) 6.1 - 8.0 g/dL [facility] LABORATORY Albumin 3.2 3.2 - 5.2 g/dL [facility] LABORATORY AST 43(H) 0 - 30 unit/L [facility] LABOR[facility]ORY ALT 42(H) 0 - 30 unit/L [facility] LABOR[facility] Alk Phos 115(H) 35 - 105 unit/L [facility] LABORATORY Total Bilirubin 0.6 0.2 - 1.3 mg/dL [facility] LABORATORY Estimated GFR 112 >=60 mL/min/1. 73 m?? [facility] LABORATORY Comment: This patient's estimated GFR [...] and symptoms in addition to eGFR. Blood 03/25/2023 3:31 AM EDT 03/25/2023 3:43 AM EDT Narrative Resulting Agency Comment Spec In Lab Natalee Winn MD CHEMISTRY ORDERABLES [facility] [place] [address] * Phosphorus (03/25/2023 3:31 AM EDT) Phosphorus 3.4 2.5 - 4.5 mg/dL [facility] LABORATORY Blood 03/25/2023 3:31 AM EDT 03/25/2023 3:43 AM EDT Narrative Resulting Agency Comment Spec In Lab Natalee Winn MD CHEMISTRY ORDERABLES Performing Organization Address [facility] de Phone Number [facility] [place] [address] * (ABNORMAL) Magnesium (03/25/2023 3:31 AM EDT) Magnesium 0.67(L) 0.69 - 1.07 mmol/L [facility] LABORATORY Blood 03/25/2023 3:31 AM EDT 03/25/2023 3:43 AM EDT Narrative Resulting Agency Comment Spec In Lab Natalee Winn MD CHEMISTRY ORDERABLES Performing Organization Address [facility] de Phone Number [facility] [place] [address] * MRI Brain wwo Contrast (Generic) (03/24/2023 11:16 AM EDT) Anatomical Region Laterality Modality Head Magnetic Resonan ce Impressions 03/24/2023 12:20 PM EDT 1. ??Normal brain. 2. ??Normal orbits. Thank you for letting us participate in the care of this patient. ??If you are a health care provider and have any questions regarding this report, please contact the number below. ??For patients who have questions please contact the health direct care staffer that requested your imaging first. ? Electronically signed by: Lorie Coe MD, [facility] ([phone]), at 03/24/2023 12:20 PM Narrative 03/24/2023 12:20 PM EDT EXAMINATION: MRI BRAIN WWO CONTRAST (GENERIC), MRI ORBIT WWO CONTRAST CLINICAL HISTORY: Dizziness, non-specific dizziness, diplopia, rule out stroke? (accession [id number]), right eye weakness, diplopia, concern for possible inferior rectus infiltration or inflamation vs. possible optic neuritis (accession [id number]). Right-sided weakness, diplopia, concerning for possible inferior rectus infiltration or inflammation versus possible optic neuritis. TECHNIQUE: MRI of the brain and orbits was performed before and after the intravenous administration of 16cc Dotarem. COMPARISON: CT head March 21, 2023 FINDINGS: Brain: There are a few scattered punctate nonspecific T2 hyperintensities in subcortical supratentorial white matter, within normal limits for age. Otherwise no abnormal brain parenchymal signal, susceptibility or restricted diffusion. No abnormal brain parenchymal, leptomeningeal or pachymeningeal enhancement. No midline shift, mass effect, hydrocephalus or extra-axial collection. Midline structures are normal. Foramen magnum and basilar cisterns are patent. Normal marrow signal. Expected intracranial vascular flow voids are preserved. Paranasal sinuses are clear. Minimal left greater than right mastoid fluid. Orbits: No abnormal signal or enhancement of the optic nerves. Globes are normal. Extraocular musculature is normal. No intraorbital inflammatory changes or mass. Procedure Note Lorie Coe MD - 03/24/2023 EXAMINATION: MRI BRAIN WWO CONTRAST (GENERIC), MRI ORBIT WWO CONTRAST CLINICAL HISTORY: Dizziness, non-specific dizziness, diplopia, rule out stroke? (accession [id number]), right eyeweakness, diplopia, concern for possible inferior rectus infiltration or inflamationvs. possible optic neuritis (accession [id number]). Right-sided weakness,diplopia, concerning for possible inferior rectus infiltration or inflammationversus possible optic neuritis. TECHNIQUE: MRI of the brain and orbits was performed before and after theintravenous administration of 16cc Dotarem. COMPARISON: CT head March 21, 2023 FINDINGS: Brain: There are a few scattered punctate nonspecific T2 hyperintensities in subcortical supratentorial white matter, within normal limits for age.Otherwise no abnormal brain parenchymal signal, susceptibility or restricteddiffusion. No abnormal brain parenchymal, leptomeningeal or pachymeningeal enhancement.No midline shift, mass effect, hydrocephalus or extra-axial collection.Midline structures are normal. Foramen magnum and basilar cisterns are patent.Normal marrow signal. Expected intracranial vascular flow voids are preserved. Paranasal sinuses are clear. Minimal left greater than right mastoidfluid. Orbits: No abnormal signal or enhancement of the optic nerves. Globes arenormal. Extraocular musculature is normal. No intraorbital inflammatory changes ormass. IMPRESSION 1. Normal brain. 2. Normal orbits. Thank you for letting us participate in the care of this patient. If youare a health care provider and have any questions regarding this report,please contact the number below. For patients who have questions please contactthe health direct care staffer that requested your imaging first. Electronically signed by: Lorie Coe MD, [facility]([phone]), at 03/24/2023 12:20 PM Natalee Winn MD IMG MRI ORDERABLES * MRI Orbit wwo Contrast (03/24/2023 11:16 AM EDT) Anatomical Region Laterality Modality Head Magnetic Resonan ce Impressions 03/24/2023 12:20 PM EDT 1. ??Normal brain. 2. ??Normal orbits. Thank you for letting us participate in the care of this patient. ??If you are a health care provider and have any questions regarding this report, please contact the number below. ??For patients who have questions please contact the health direct care staffer that requested your imaging first. ? Electronically signed by: Lorie Coe MD, [facility] ([phone]), at 03/24/2023 12:20 PM Narrative 03/24/2023 12:20 PM EDT EXAMINATION: MRI BRAIN WWO CONTRAST (GENERIC), MRI ORBIT WWO CONTRAST CLINICAL HISTORY: Dizziness, non-specific dizziness, diplopia, rule out stroke? (accession [id number]), right eye weakness, diplopia, concern for possible inferior rectus infiltration or inflamation vs. possible optic neuritis (accession [id number]). Right-sided weakness, diplopia, concerning for possible inferior rectus infiltration or inflammation versus possible optic neuritis. TECHNIQUE: MRI of the brain and orbits was performed before and after the intravenous administration of 16cc Dotarem. COMPARISON: CT head March 21, 2023 FINDINGS: Brain: There are a few scattered punctate nonspecific T2 hyperintensities in subcortical supratentorial white matter, within normal limits for age. Otherwise no abnormal brain parenchymal signal, susceptibility or restricted diffusion. No abnormal brain parenchymal, leptomeningeal or pachymeningeal enhancement. No midline shift, mass effect, hydrocephalus or extra-axial collection. Midline structures are normal. Foramen magnum and basilar cisterns are patent. Normal marrow signal. Expected intracranial vascular flow voids are preserved. Paranasal sinuses are clear. Minimal left greater than right mastoid fluid. Orbits: No abnormal signal or enhancement of the optic nerves. Globes are normal. Extraocular musculature is normal. No intraorbital inflammatory changes or mass. Procedure Note Lorie Coe MD - 03/24/2023 EXAMINATION: MRI BRAIN WWO CONTRAST (GENERIC), MRI ORBIT WWO CONTRAST CLINICAL HISTORY: Dizziness, non-specific dizziness, diplopia, rule out stroke? (accession [id number]), right eyeweakness, diplopia, concern for possible inferior rectus infiltration or inflamationvs. possible optic neuritis (accession [id number]). Right-sided weakness,diplopia, concerning for possible inferior rectus infiltration or inflammationversus possible optic neuritis. TECHNIQUE: MRI of the brain and orbits was performed before and after theintravenous administration of 16cc Dotarem. COMPARISON: CT head March 21, 2023 FINDINGS: Brain: There are a few scattered punctate nonspecific T2 hyperintensities in subcortical supratentorial white matter, within normal limits for age.Otherwise no abnormal brain parenchymal signal, susceptibility or restricteddiffusion. No abnormal brain parenchymal, leptomeningeal or pachymeningeal enhancement.No midline shift, mass effect, hydrocephalus or extra-axial collection.Midline structures are normal. Foramen magnum and basilar cisterns are patent.Normal marrow signal. Expected intracranial vascular flow voids are preserved. Paranasal sinuses are clear. Minimal left greater than right mastoidfluid. Orbits: No abnormal signal or enhancement of the optic nerves. Globes arenormal. Extraocular musculature is normal. No intraorbital inflammatory changes ormass. IMPRESSION 1. Normal brain. 2. Normal orbits. Thank you for letting us participate in the care of this patient. If youare a health care provider and have any questions regarding this report,please contact the number below. For patients who have questions please contactthe health direct care staffer that requested your imaging first. Electronically signed by: Lorie Coe MD, [facility]([phone]), at 03/24/2023 12:20 PM Natalee Winn MD [facility] [place] ORDERABLES * (ABNORMAL) Aspartate Aminotransferase (03/24/2023 5:51 AM EDT) AST 54(H) 0 - 30 unit/L [facility] LABORATORY Blood 03/24/2023 5:51 AM EDT 03/24/2023 6:02 AM EDT Narrative Resulting Agency Comment Spec In Lab Iram Borrero MD CHEMISTRY ORDERABLES [facility] [place] [address] * (ABNORMAL) Alanine Aminotransferase (03/24/2023 5:51 AM EDT) ALT 41(H) 0 - 30 unit/L [facility] Blood 03/24/2023 5:51 AM EDT 03/24/2023 6:02 AM EDT Narrative Resulting Agency Comment Spec In Lab Iram Borrero MD CHEMISTRY ORDERABLES Performing Organization Address City/[facility]/ZIP Co de Phone Number [facility] [place] [address] * (ABNORMAL) Potassium (03/24/2023 5:51 AM EDT) Pathologist [facility] [place] Potassium 3.4(L) 3.5 - 5.0 mmol/L [facility] Comment: Please note: ??Patients with WBC >100,000 may have falsely elevated Potassium levels. ??For accurate Potassium quantification in these patients send serum separator tube (gold top) for subsequent determinations. ??Contact the Clinical Chemistry Laboratory if there are any questions. Blood 03/24/2023 5:51 AM EDT 03/24/2023 6:02 AM EDT Narrative Resulting Agency Comment Spec In Lab Iram Borrero MD CHEMISTRY ORDERABLES Performing Organization Address [facility] Co de Phone Number [facility] [place] [address] * (ABNORMAL) Differential, Automated (03/24/2023 3:51 AM EDT) Pathologist [facility] [place] Neutrophils % 51.7 % [facility] Neutr Abs (ANC) 3.49 1.70 - 6.10 x10(3)/mc L [facility] Lymphocytes % 37.0 % [facility] Lymphocytes Abs 2.5 0.9 - 3.2 x10(3)/mc L [facility] Monocytes % 4.1 % [facility] Monocyte Abs 0.3 0.3 - 0.9 x10(3)/mc L [facility] Eosinophils % 4.3 % [facility] Eosinophils Abs 0.3 0.0 - 0.4 x10(3)/mc L [facility] Basophils % 0.4 % [facility] Basophils Abs 0.0 0.0 - 0.1 x10(3)/mc L [facility] Immature Gran % 2.50 % [facility] Comment: Immature granulocytes(IG's)percentage and absolute count will include metamyelocytes, myelocytes, and promyelocytes. Blood smears from CBCs yielding IG's will be scanned manually for concordance. If this scan disagrees with the automated IG or if promyelocytes are noted, a manual differential will be performed. Reshma Gran Abs 0.17(H) 0.00 - 0.04 x10(3)/mc L [facility] Blood 03/24/2023 3:51 AM EDT 03/24/2023 4:09 AM EDT Narrative Resulting Agency Comment Spec In Lab Natalee Winn MD HEMATOLOGY ORDERABLE S [facility] [place] [address] * (ABNORMAL) Hemogram (03/24/2023 3:51 AM EDT) WBC 6.8 4.0 - 9.5 x10(3)/[facility] LABORATORY RBC 3.69(L) 4.00 - 5.21 x10(6)/[facility] LABORATORY Hemoglobin 10.5(L) 11.7 - 15.5 g/dL [facility] Hematocrit 31.5(L) 35.7 - 45.8 % [facility] MCV 85.4 82.6 - 94.4 fL [facility] MCH 28.5 27.1 - 32.0 pg [facility] MCHC 33.3 31.7 - 35.0 g/dL [facility] Platelets 268 145 - 357 x10(3)/[facility] LABORATORY RDWSD 46.3(H) 37.0 - 46.0 fL [facility] RDWCV 14.8(H) 11.5 - 14.1 % [facility] MPV 9.2 7.6 - 12.9 fL [facility] [facility] nRBC % Auto 0.0 % [facility] nRBC Abs Auto 0.000 0.000 - 0.000 x10(3)/mcL [facility] Blood 03/24/2023 3:51 AM EDT 03/24/2023 4:09 AM EDT Narrative Resulting Agency Comment Spec In Lab Natalee Winn MD HEMATOLOGY ORDERABLE S [facility] [place] [address] * (ABNORMAL) Comprehensive metabolic panel (non-fasting) (03/24/2023 3:51 AM EDT) Glucose Lvl 81 65 - 199 mg/dL [facility] Comment:Diabetes: >=200 mg/d L plus symptoms BUN 5(L) 8 - 18 mg/dL [facility] Creatinine 0.65(L) 0.70 - 1.20 mg/dL [facility] Sodium 141 135 - 145 mmol/L [facility] Potassium Not Perf 3.5 - 5.0 [facility] Comment: Unable to quantitate due to sample hemolysis. ??Sample redraw suggested. Called by: GUCCI, Read back by: Candelaria Fish, Date/Time:03/24/23 04:45. Please note: ??Patients with WBC >100,000 may have falsely elevated Potassium levels. ??For accurate Potassium quantification in these patients send serum separator tube (gold top) for subsequent determinations. ??Contact the Clinical Chemistry Laboratory if there are any questions. Chloride 104 98 - 107 mmol/L [facility] CO2 29 22 - 31 mmol/L [facility] Anion Gap 8 5 - 15 mmol/L [facility] Calcium 8.3(L) 8.5 - 10.5 mg/dL [facility] Total Protein 5.1(L) 6.1 - 8.0 g/dL [facility] Albumin 3.0(L) 3.2 - 5.2 g/dL [facility] AST Not Perf 0 - 30 [facility] Comment: Unable to quantitate due to sample hemolysis. ??Sample redraw suggested. Called by: GUCCI, Read back by: Candelaria Fish, Date/Time:03/24/23 04:45. ALT Not Perf 0 - 30 [facility] Comment: Unable to quantitate due to sample hemolysis. ??Sample redraw suggested. Called by: GUCCI, Read back by: Candelaria Fish, Date/Time:03/24/23 04:45. Alk Phos 103 35 - 105 unit/L [facility] Total Bilirubin 0.7 0.2 - 1.3 mg/dL [facility] Estimated GFR 111 >=60 mL/min/1. 73 m?? [facility] Comment: This patient's estimated GFR [...] and symptoms in addition to eGFR. Blood 03/24/2023 3:51 AM EDT 03/24/2023 4:09 AM EDT Narrative Resulting Agency Comment Spec In Lab Natalee Winn MD CHEMISTRY ORDERABLES [facility] [place] [address] * Phosphorus (03/24/2023 3:51 AM EDT) Phosphorus 3.1 2.5 - 4.5 mg/dL [facility] Blood 03/24/2023 3:51 AM EDT 03/24/2023 4:09 AM EDT Narrative Resulting Agency Comment Spec In Lab Natalee Winn MD CHEMISTRY ORDERABLES [facility] [place] [address] * Magnesium (03/24/2023 3:51 AM EDT) Pathologist [facility] [place] Magnesium 0.75 0.69 - 1.07 mmol/L [facility] Blood 03/24/2023 3:51 AM EDT 03/24/2023 4:09 AM EDT Narrative Resulting Agency Comment Spec In Lab Natalee Winn MD CHEMISTRY ORDERABLES Performing Organization Address City/[facility]/ZIP Co de Phone Number [facility] [place] [address] * (ABNORMAL) Differential, Automated (03/23/2023 8:07 AM EDT) [facility] Neutrophils % 79.5 % [facility] Neutr Abs (ANC) 7.13(H) 1.70 - 6.10 x10(3)/mc L [facility] Lymphocytes % 15.8 % [facility] Lymphocytes Abs 1.4 0.9 - 3.2 x10(3)/mc L [facility] Monocytes % 3.5 % [facility] Monocyte Abs 0.3 0.3 - 0.9 x10(3)/mc L [facility] Eosinophils % 0.1 % [facility] Eosinophils Abs 0.0 0.0 - 0.4 x10(3)/mc L [facility] Basophils % 0.3 % [facility] Basophils Abs 0.0 0.0 - 0.1 x10(3)/mc L [facility] Immature Gran % 0.80 % [facility] Comment: Immature granulocytes(IG's)percentage and absolute count will include metamyelocytes, myelocytes, and promyelocytes. Blood smears from CBCs yielding IG's will be scanned manually for concordance. If this scan disagrees with the automated IG or if promyelocytes are noted, a manual differential will be performed. Reshma Gran Abs 0.07(H) 0.00 - 0.04 x10(3)/ L [facility] Blood 03/23/2023 8:07 AM EDT 03/23/2023 8:20 AM EDT Narrative Resulting Agency Comment Spec In Lab Natalee Winn MD HEMATOLOGY ORDERABLE S [facility] [place] [address] * (ABNORMAL) Hemogram (03/23/2023 8:07 AM EDT) WBC 9.0 4.0 - 9.5 x10(3)/[facility] RBC 3.52(L) 4.00 - 5.21 x10(6)/[facility] Hemoglobin 10.2(L) 11.7 - 15.5 g/dL [facility] Hematocrit 30.2(L) 35.7 - 45.8 % [facility] MCV 85.8 82.6 - 94.4 [facility] MCH 29.0 27.1 - 32.0 pg [facility] MCHC 33.8 31.7 - 35.0 g/dL [facility] Platelets 268 145 - 357 x10(3)/[facility] RDWSD 46.7(H) 37.0 - 46.0 [facility] RDWCV 14.9(H) 11.5 - 14.1 % [facility] MPV 9.6 7.6 - 12.9 [facility] nRBC % Auto 0.0 % [facility] nRBC Abs Auto 0.000 0.000 - 0.000 x10(3)/[facility] Blood 03/23/2023 8:07 AM EDT 03/23/2023 8:20 AM EDT Narrative Resulting Agency Comment Spec In Lab Natalee Winn MD HEMATOLOGY ORDERABLE S [facility] [place] [address] * (ABNORMAL) Differential, Automated (03/23/2023 3:39 AM EDT) Neutrophils % 87.3 % [facility] Neutr Abs (ANC) 6.54(H) 1.70 - 6.10 x10(3)/ L [facility] Lymphocytes % 9.7 % [facility] Lymphocytes Abs 0.7(L) 0.9 - 3.2 x10(3)/[facility] Monocytes % 2.0 % [facility] Monocyte Abs 0.2(L) 0.3 - 0.9 x10(3)/[facility] Eosinophils % 0.1 % [facility] Eosinophils Abs 0.0 0.0 - 0.4 x10(3)/[facility] Basophils % 0.1 % [facility] Basophils Abs 0.0 0.0 - 0.1 x10(3)/[facility] Immature Gran % 0.80 % [facility] Comment: Immature granulocytes(IG's)percentage and absolute count will include metamyelocytes, myelocytes, and promyelocytes. Blood smears from CBCs yielding IG's will be scanned manually for concordance. If this scan disagrees with the automated IG or if promyelocytes are noted, a manual differential will be performed. Reshma Gran Abs 0.06(H) 0.00 - 0.04 x10(3)/[facility] Blood 03/23/2023 3:39 AM EDT 03/23/2023 3:49 AM EDT Narrative Resulting Agency Comment Spec In Lab Natalee Winn MD HEMATOLOGY ORDERABLE S [facility] [place] [address] * (ABNORMAL) Hemogram (03/23/2023 3:39 AM EDT) WBC 7.5 4.0 - 9.5 x10(3)/[facility] RBC 3.72(L) 4.00 - 5.21 x10(6)/[facility] Hemoglobin 10.5(L) 11.7 - 15.5 g/dL [facility] Hematocrit 31.8(L) 35.7 - 45.8 % [facility] MCV 85.5 82.6 - 94.4 fL [facility] MCH 28.2 27.1 - 32.0 pg [facility] MCHC 33.0 31.7 - 35.0 g/dL [facility] Platelets 263 145 - 357 x10(3)/[facility] RDWSD 47.2(H) 37.0 - 46.0 [facility] RDWCV 14.9(H) 11.5 - 14.1 % [facility] MPV 9.4 7.6 - 12.9 [facility] nRBC % Auto 0.0 % [facility] nRBC Abs Auto 0.000 0.000 - 0.000 x10(3)/[facility] Blood 03/23/2023 3:39 AM EDT 03/23/2023 3:49 AM EDT Narrative Resulting Agency Comment Spec In Lab Natalee Winn MD HEMATOLOGY ORDERABLE S [facility] [place] [address] * (ABNORMAL) Comprehensive metabolic panel (non-fasting) (03/23/2023 3:39 AM EDT) Glucose Lvl 111 65 - 199 mg/dL [facility] Comment:Diabetes: >=200 mg/d L plus symptoms BUN 6(L) 8 - 18 mg/dL [facility] Creatinine 0.61(L) 0.70 - 1.20 mg/dL [facility] Sodium 139 135 - 145 mmol/L [facility] Potassium 4.3 3.5 - 5.0 mmol/L [facility] Comment: Please note: ??Patients with WBC >100,000 may have falsely elevated Potassium levels. ??For accurate Potassium quantification in these patients send serum separator tube (gold top) for subsequent determinations. ??Contact the Clinical Chemistry Laboratory if there are any questions. Chloride 103 98 - 107 mmol/L [facility] CO2 27 22 - 31 mmol/L [facility] Anion Gap 9 5 - 15 mmol/L [facility] Calcium 8.8 8.5 - 10.5 mg/dL [facility] Total Protein 5.4(L) 6.1 - 8.0 g/dL [facility] Albumin 3.2 3.2 - 5.2 g/dL [facility] AST 39(H) 0 - 30 unit/L [facility] ALT 37(H) 0 - 30 unit/L [facility] Alk Phos 107(H) 35 - 105 unit/L [facility] Total Bilirubin 0.7 0.2 - 1.3 mg/dL [facility] Estimated GFR 112 >=60 mL/min/1. 73 m?? [facility] Comment: This patient's estimated GFR [...] and symptoms in addition to eGFR. Blood 03/23/2023 3:39 AM EDT 03/23/2023 3:49 AM EDT Narrative Resulting Agency Comment Spec In Lab Natalee Winn MD CHEMISTRY ORDERABLES Performing Organization Address City/[facility] Co de Phone Number [facility] [place] [address] * Phosphorus (03/23/2023 3:39 AM EDT) Pathologist [facility] [place] Phosphorus 3.4 2.5 - 4.5 mg/dL [facility] Blood 03/23/2023 3:39 AM EDT 03/23/2023 3:49 AM EDT Narrative Resulting Agency Comment Spec In Lab Natalee Winn MD CHEMISTRY ORDERABLES Performing Organization Address City/[facility] Co de Phone Number [facility] [place] [address] * Magnesium (03/23/2023 3:39 AM EDT) Pathologist [facility] [place] Magnesium 0.80 0.69 - 1.07 mmol/L [facility] Blood 03/23/2023 3:39 AM EDT 03/23/2023 3:49 AM EDT Narrative Resulting Agency Comment Spec In Lab Natalee Winn MD CHEMISTRY ORDERABLES Performing Organization Address [facility] Co de Phone Number [facility] [place] [address] * POCT Glucose (03/22/2023 9:46 PM EDT) POC Glucose 85 65 - 199 mg/dL [facility] Comment: Supplemental ranges: <140 mg/dL before meals <180 mg/dL all other times of the day Blood 03/22/2023 9:46 PM EDT 03/22/2023 9:46 PM EDT Iram Borrero MD POINT OF CARE TEST O RDERAISIDRO Performing Organization Address City/[facility]/ZIP Co de Phone Number [facility] [place] [address] * POCT Glucose (03/22/2023 2:32 PM EDT) Pathologist [facility] [place] POC Glucose 90 65 - 199 mg/dL [facility] Comment: Supplemental ranges: <140 mg/dL before meals <180 mg/dL all other times of the day Blood 03/22/2023 2:32 PM EDT 03/22/2023 2:32 PM EDT Iram Borrero MD POINT OF CARE TEST O MANDY Performing Organization Address City/[facility]/ZIP Co de Phone Number [facility] [place] [address] * (ABNORMAL) Differential, Automated (03/22/2023 4:17 AM EDT) [facility] Neutrophils % 50.0 % [facility] Neutr Abs (ANC) 4.00 1.70 - 6.10 x10(3)/mc L [facility] Lymphocytes % 42.9 % [facility] Lymphocytes Abs 3.4(H) 0.9 - 3.2 x10(3)/mc L [facility] Monocytes % 5.1 % [facility] Monocyte Abs 0.4 0.3 - 0.9 x10(3)/mc L [facility] Eosinophils % 1.2 % [facility] Eosinophils Abs 0.1 0.0 - 0.4 x10(3)/mc L [facility] Basophils % 0.2 % [facility] Basophils Abs 0.0 0.0 - 0.1 x10(3)/mc L [facility] Immature Gran % 0.60 % [facility] Comment: Immature granulocytes(IG's)percentage and absolute count will include metamyelocytes, myelocytes, and promyelocytes. Blood smears from CBCs yielding IG's will be scanned manually for concordance. If this scan disagrees with the automated IG or if promyelocytes are noted, a manual differential will be performed. Reshma Gran Abs 0.05(H) 0.00 - 0.04 x10(3)/mc L [facility] Blood 03/22/2023 4:17 AM EDT 03/22/2023 4:29 AM EDT Narrative Resulting Agency Comment Spec In Lab Lisandro Araya MD HEMATOLOGY ORDERABLE S [facility] [place] [address] * (ABNORMAL) Hemogram (03/22/2023 4:17 AM EDT) WBC 8.0 4.0 - 9.5 x10(3)/[facility] RBC 4.41 4.00 - 5.21 x10(6)/[facility] Hemoglobin 12.6 11.7 - 15.5 g/dL [facility] Hematocrit 37.3 35.7 - 45.8 % [facility] MCV 84.6 82.6 - 94.4 fL [facility] MCH 28.6 27.1 - 32.0 pg [facility] MCHC 33.8 31.7 - 35.0 g/dL [facility] Platelets 384(H) 145 - 357 x10(3)/[facility] RDWSD 44.9 37.0 - 46.0 [facility] RDWCV 14.6(H) 11.5 - 14.1 % [facility] MPV 9.5 7.6 - 12.9 [facility] nRBC % Auto 0.0 % [facility] nRBC Abs Auto 0.000 0.000 - 0.000 x10(3)/mcL [facility] Blood 03/22/2023 4:17 AM EDT 03/22/2023 4:29 AM EDT Narrative Resulting Agency Comment Spec In Lab Lisandro Araya MD HEMATOLOGY ORDERABLE S [facility] [place] [address] * (ABNORMAL) Comprehensive metabolic panel (non-fasting) (03/22/2023 4:17 AM EDT) Glucose Lvl 101 65 - 199 mg/dL [facility] Comment:Diabetes: >=200 mg/d L plus symptoms BUN 7(L) 8 - 18 mg/dL [facility] Creatinine 0.69(L) 0.70 - 1.20 mg/dL [facility] Sodium 140 135 - 145 mmol/L [facility] Potassium 3.4(L) 3.5 - 5.0 mmol/L [facility] Comment: Please note: ??Patients with WBC >100,000 may have falsely elevated Potassium levels. ??For accurate Potassium quantification in these patients send serum separator tube (gold top) for subsequent determinations. ??Contact the Clinical Chemistry Laboratory if there are any questions. Chloride 98 98 - 107 mmol/L [facility] CO2 32(H) 22 - 31 mmol/L [facility] Anion Gap 10 5 - 15 mmol/L [facility] Calcium 9.0 8.5 - 10.5 mg/dL [facility] Total Protein 6.2 6.1 - 8.0 g/dL [facility] Albumin 3.8 3.2 - 5.2 g/dL [facility] AST 30 0 - 30 unit/L [facility] ALT 37(H) 0 - 30 unit/L [facility] Alk Phos 118(H) 35 - 105 unit/L [facility] Total Bilirubin 0.9 0.2 - 1.3 mg/dL [facility] Estimated GFR 109 >=60 mL/min/1. 73 m?? [facility] Comment: This patient's estimated GFR [...] and symptoms in addition to eGFR. Blood 03/22/2023 4:17 AM EDT 03/22/2023 4:29 AM EDT Narrative Resulting Agency Comment Spec In Lab Natalee Winn MD CHEMISTRY ORDERABLES Performing Organization Address City/[facility]/ZIP Co de Phone Number [facility] [place] [address] * Phosphorus (03/22/2023 4:17 AM EDT) Phosphorus 3.1 2.5 - 4.5 mg/dL [facility] Blood 03/22/2023 4:17 AM EDT 03/22/2023 4:29 AM EDT Narrative Resulting Agency Comment Spec In Lab Natalee Winn MD CHEMISTRY ORDERABLES [facility] [place] [address] * Magnesium (03/22/2023 4:17 AM EDT) Magnesium 0.94 0.69 - 1.07 mmol/L [facility] Blood 03/22/2023 4:17 AM EDT 03/22/2023 4:29 AM EDT Narrative Resulting Agency Comment Spec In Lab Natalee Winn MD CHEMISTRY ORDERABLES Performing Organization Address City/[facility]/ZIP Co de Phone Number [facility] [place] [address] * Vitamin B12 (03/21/2023 6:00 PM EDT) Vitamin B-12 612 232 - 1,245 pg/mL [facility] Blood 03/21/2023 6:00 PM EDT 03/21/2023 6:13 PM EDT Narrative Resulting Agency Comment Spec In Lab Iram Borrero MD CHEMISTRY ORDERABLES Performing Organization Address [facility] Co de Phone Number [facility] [place] [address] * (ABNORMAL) Folate, serum (03/21/2023 6:00 PM EDT) Folate Lvl 4.0(L) 4.8 - 24.2 ng/mL [facility] Blood 03/21/2023 6:00 PM EDT 03/21/2023 6:13 PM EDT Narrative Resulting Agency Comment Spec In Lab Iram Borrero MD CHEMISTRY ORDERABLES Performing Organization Address [facility] Co de Phone Number [facility] [place] [address] * (ABNORMAL) Vitamin B1, whole blood (03/21/2023 6:00 PM EDT) Vit B1 Lvl WB 32(L) 70 - 180 nmol/L [facility] Comment: ADDITIONAL INFORMATION This test was developed and its performance characteristics determined by [facility] in a manner consistent with CLIA requirements. This test has not been cleared or approved by the U.S. Food and Drug Administration. Test Performed by: [facility] - [address] [address] Infrastructure Architect: Erlin Orlando M.D. Ph.D.; CLIA# [id number] Blood 03/21/2023 6:00 PM EDT 03/22/2023 12:57 PM EDT Narrative Resulting Agency Comment Spec In Lab Iram Borrero MD CHEMISTRY ORDERABLES [facility] [place] [address] * CT Head wo Contrast (Generic) (03/21/2023 12:34 PM EDT) Anatomical Region Laterality Modality Head Computed Tomogra phy Impressions 03/21/2023 12:[address] brain [address]. Thank you for letting us participate in the care of this patient. ??If you are a health care provider and have any questions regarding this report, please contact the number below. ??For patients who have questions please contact the health direct care staffer that requested your imaging first. ? Electronically signed by: Erlin Castorena DO, [facility] ??([phone]), at 03/21/2023 12:49 PM Narrative 03/21/2023 12:49 PM EDT EXAMINATION: CT HEAD WO CONTRAST (GENERIC) CLINICAL HISTORY: dizziness s/p gastric bypass surgery with no intra-abd explanation. eval for intra-cranial tumor TECHNIQUE: CT head performed without intravenous contrast administration. COMPARISON: None FINDINGS: There is no acute intracranial hemorrhage or mass effect. There is no extra axial collection or ventricular dilation. There is no acute confluent ischemic infarct. There are no osseous or extracranial soft tissue lesions identified. No evidence of significant inflammatory sinonasal or mastoid disease. Procedure Note Erlin Castorena DO - 03/21/2023 EXAMINATION: CT HEAD WO CONTRAST (GENERIC) CLINICAL HISTORY: dizziness s/p gastric bypass surgery with no intra-abd explanation. eval for intra-cranial tumor TECHNIQUE: CT head performed without intravenous contrast administration. COMPARISON: None FINDINGS: There is no acute intracranial hemorrhage or mass effect. There is noextra axial collection or ventricular dilation. There is no acute confluentischemic infarct. There are no osseous or extracranial soft tissue lesions identified. Noevidence of significant inflammatory sinonasal or mastoid disease. IMPRESSION Normal brain CT. Thank you for letting us participate in the care of this patient. If youare a health care provider and have any questions regarding this report,please contact the number below. For patients who have questions please contactthe health direct care staffer that requested your imaging first. Electronically signed by: Erlin Castorena DO [facility]([phone]), at 03/21/2023 12:49 PM Iram Borrero MD IMG CT ORDERABLES * (ABNORMAL) Differential, Automated (03/21/2023 3:46 AM EDT) Neutrophils % 66.3 % [facility] Neutr Abs (ANC) 5.44 1.70 - 6.10 x10(3)/mc L [facility] Lymphocytes % 25.6 % [facility] Lymphocytes Abs 2.1 0.9 - 3.2 x10(3)/mc L [facility] Monocytes % 5.6 % [facility] Monocyte Abs 0.5 0.3 - 0.9 x10(3)/mc L [facility] Eosinophils % 1.1 % [facility] Eosinophils Abs 0.1 0.0 - 0.4 x10(3)/mc L [facility] Basophils % 0.5 % [facility] Basophils Abs 0.0 0.0 - 0.1 x10(3)/mc L [facility] Immature Gran % 0.90 % [facility] Comment: Immature granulocytes(IG's)percentage and absolute count will include metamyelocytes, myelocytes, and promyelocytes. Blood smears from CBCs yielding IG's will be scanned manually for concordance. If this scan disagrees with the automated IG or if promyelocytes are noted, a manual differential will be performed. Reshma Gran Abs 0.07(H) 0.00 - 0.04 x10(3)/mc L [facility] Blood 03/21/2023 3:46 AM EDT 03/21/2023 4:07 AM EDT Narrative Resulting Agency Comment Spec In Lab Lisandro Araya MD HEMATOLOGY ORDERABLE S [facility] [place] [address] * (ABNORMAL) Hemogram (03/21/2023 3:46 AM EDT) WBC 8.2 4.0 - 9.5 x10(3)/[facility] LAB[facility]ORY RBC 4.60 4.00 - 5.21 x10(6)/[facility] Hemoglobin 13.3 11.7 - 15.5 g/dL [facility] Hematocrit 37.6 35.7 - 45.8 % [facility] MCV 81.7(L) 82.6 - 94.4 fL [facility] MCH 28.9 27.1 - 32.0 pg [facility] MCHC 35.4(H) 31.7 - 35.0 g/dL [facility] Platelets 322 145 - 357 x10(3)/[facility] LABORATORY RDWSD 44.0 37.0 - 46.0 fL [facility] RDWCV 14.8(H) 11.5 - 14.1 % [facility] MPV 9.1 7.6 - 12.9 fL [facility] nRBC % Auto 0.0 % [facility] nRBC Abs Auto 0.000 0.000 - 0.000 x10(3)/mcL [facility] Blood 03/21/2023 3:46 AM EDT 03/21/2023 4:07 AM EDT Narrative Resulting Agency Comment Spec In Lab Lisandro Araya MD HEMATOLOGY ORDERABLE S [facility] [place] [address] * (ABNORMAL) Comprehensive metabolic panel (non-fasting) (03/21/2023 3:46 AM EDT) Glucose Lvl 105 65 - 199 mg/dL [facility] Comment:Diabetes: >=200 mg/d L plus symptoms BUN 6(L) 8 - 18 mg/dL [facility] Creatinine 0.54(L) 0.70 - 1.20 mg/dL [facility] Sodium 135 135 - 145 mmol/L [facility] Potassium 3.8 3.5 - 5.0 mmol/L [facility] Comment: Please note: ??Patients with WBC >100,000 may have falsely elevated Potassium levels. ??For accurate Potassium quantification in these patients send serum separator tube (gold top) for subsequent determinations. ??Contact the Clinical Chemistry Laboratory if there are any questions. Chloride 98 98 - 107 mmol/L [facility] CO2 27 22 - 31 mmol/L [facility] Anion Gap 10 5 - 15 mmol/L [facility] Calcium 8.4(L) 8.5 - 10.5 mg/dL [facility] Total Protein 6.0(L) 6.1 - 8.0 g/dL [facility] Albumin 3.6 3.2 - 5.2 g/dL [facility] AST 24 0 - 30 unit/L [facility] ALT 43(H) 0 - 30 unit/L [facility] Alk Phos 116(H) 35 - 105 unit/L [facility] Total Bilirubin 0.9 0.2 - 1.3 mg/dL [facility] Estimated GFR 116 >=60 mL/min/1. 73 m?? [facility] Comment: This patient's estimated GFR [...] and symptoms in addition to eGFR. Blood 03/21/2023 3:46 AM EDT 03/21/2023 4:07 AM EDT Narrative Resulting Agency Comment Spec In Lab Natalee Winn MD CHEMISTRY ORDERABLES [facility] [place] [address] * Phosphorus (03/21/2023 3:46 AM EDT) Phosphorus 3.0 2.5 - 4.5 mg/dL [facility] Blood 03/21/2023 3:46 AM EDT 03/21/2023 4:07 AM EDT Narrative Resulting Agency Comment Spec In Lab Natalee Winn MD CHEMISTRY ORDERABLES [facility] [place] [address] * Magnesium (03/21/2023 3:46 AM EDT) Magnesium 0.81 0.69 - 1.07 mmol/L [facility] Blood 03/21/2023 3:46 AM EDT 03/21/2023 4:07 AM EDT Narrative Resulting Agency Comment Spec In Lab Natalee Winn MD CHEMISTRY ORDERABLES Performing Organization Address [facility] Co de Phone Number [facility] [place] [address] * (ABNORMAL) IgG 4 (03/21/2023 3:46 AM EDT) IgG 4 2.7(L) 3.9 - 86.4 mg/dL [facility] Blood 03/21/2023 3:46 AM EDT 03/21/2023 4:07 AM EDT Narrative Resulting Agency Comment Spec In Lab Natalee Winn MD IMMUNOLOGY ORDERABLE S Performing Organization Address [facility] Co de Phone Number [facility] [place] [address] * POCT Glucose (03/21/2023 3:45 AM EDT) POC Glucose 97 65 - 199 mg/dL [facility] Comment: Supplemental ranges: <140 mg/dL before meals <180 mg/dL all other times of the day Blood 03/21/2023 3:45 AM EDT 03/21/2023 3:45 AM EDT Iram Borrero MD POINT OF CARE TEST O RDERABLES Performing Organization Address [facility] Co de Phone Number [facility] [place] [address] * POCT Glucose (03/21/2023 12:02 AM EDT) POC Glucose 108 65 - 199 mg/dL [facility] Comment: Supplemental ranges: <140 mg/dL before meals <180 mg/dL all other times of the day Blood 03/21/2023 12:0 2 AM EDT 03/21/2023 12:02 AM EDT Iram Borrero MD POINT OF CARE TEST O RDERABLES Performing Organization Address [facility] de Phone Number [facility] [place] [address] * POCT Glucose (03/20/2023 9:38 PM EDT) POC Glucose 95 65 - 199 mg/dL [facility] Comment: Supplemental ranges: <140 mg/dL before meals <180 mg/dL all other times of the day Blood 03/20/2023 9:38 PM EDT 03/20/2023 9:38 PM EDT Iram Borrero MD POINT OF CARE TEST Maribel GALVAN Performing Organization Address [facility] de Phone Number [facility] [place] [address] * UPPER GI ENDOSCOPY (03/20/2023 10:26 AM EDT) UPPER GI ENDOSCOPY [facility] Endoscopy Procedure Date: 03/20/2023 10:26 AM ? Patient Name: Leandra Wilks ? N: [id number] ? Date of : 1980 ? Age: 43 ? Order #: [id number] ? Instrument Name: [id number] ? Procedure: ? Upper GI endoscopy Indications: ? Dysphagia Providers: ? Marivel Rosales, ? Raúl Christensen Referring MD: ? Medicines: ? Propofol per Anesthesia Complications: ? No immediate complications. Procedure: ? Pre-Anesthesia Assessment: ? - Prior to the procedure, a History ? and Physical was performed, and ? patient medications and allergies ? were reviewed. The patient is ? competent. The risks and benefits ? of the procedure and the sedation ? options and risks were discussed ? with the patient. All questions ? were answered and informed consent ? was obtained. Patient ? identification and proposed ? procedure were verified by the ? physician in the pre-procedure ? area. Mental Status Examination: ? alert and oriented. Airway ? Examination: normal oropharyngeal ? airway and neck mobility. ? Respiratory Examination: clear to ? auscultation. CV Examination: ? normal. Prophylactic Antibiotics: ? The patient does not require ? prophylactic antibiotics. Prior ? Anticoagulants: The patient has ? taken no anticoagulant or ? antiplatelet agents. ASA Grade ? Assessment: III - A patient with ? severe systemic disease. After ? reviewing the risks and benefits, ? the patient was deemed in ? satisfactory condition to undergo ? the procedure. The anesthesia plan ? was to use monitored anesthesia ? care (MAC). Immediately prior to ? administration of medications, the ? patient was re-assessed for ? adequacy to receive sedatives. The ? heart rate, respiratory rate, ? oxygen saturations, blood pressure, ? adequacy of pulmonary ventilation, ? and response to care were monitored ? throughout the procedure. The ? physical status of the patient was ? re-assessed after the procedure. ? The procedure, indications, ? benefits, risks and alternatives ? were explained to the patient. ? Specifically discussed were ? potential complications including, ? but not limited to, bleeding, ? perforation, infection, missing a ? cancer, and adverse medication ? reactions. The Endoscope was ? introduced through the mouth, and ? advanced to the jejunum The patient ? tolerated the procedure well. ? Findings: ? The examined esophagus was normal. ? Evidence of a Renato-en-Y gastrojejunostomy was found. ? The pouch was too small to safely retroflex. The ? gastrojejunal anastomosis was characterized by ? healthy appearing mucosa. This was traversed. The ? xkwju-go-cbwtofs limb was characterized by healthy ? appearing mucosa. ? The examined jejunum was normal. ? Moderate Sedation: ? Not applicable - See Anesthesia documentation Impression: ?- Normal esophagus. ? - Renato-en-Y gastrojejunostomy with ? gastrojejunal anastomosis ? characterized by healthy appearing ? mucosa. ? - Normal examined jejunum. ? - No specimens collected. Recommendation: ?- Return patient to [facility] ? for ongoing care. ? - Resume previous diet. ? - Observe patient's clinical course. ? Attending Participation: ? I personally performed the entire procedure. ? Gerber Salomon, 03/20/2023 12:04:22 PM Number of Addenda: 0 Note Initiated On: 03/20/2023 10:26 AM [facility] 03/20/2023 10:2 6 AM EDT Unknown GENERAL SURGICAL ORD ERABLES Performing Organization Address City/[facility]/ZIP Co de Phone Number [employer] * (ABNORMAL) Hepatic Function Panel (03/20/2023 2:32 AM EDT) Total Protein 5.8(L) 6.1 - 8.0 g/dL [facility] Albumin 3.4 3.2 - 5.2 g/dL [facility] AST 42(H) 0 - 30 unit/L [facility] ALT 57(H) 0 - 30 unit/L [facility] Alk Phos 111(H) 35 - 105 unit/L [facility] Total Bilirubin 1.0 0.2 - 1.3 mg/dL [facility] Bili, Direct 0.4(H) 0.0 - 0.3 mg/dL [facility] Blood Venous Draw / Unknown 03/20/2023 2:32 AM EDT 03/20/2023 2:56 AM EDT Narrative Resulting Agency Comment Spec In Lab Dick Bower MD CHEMISTRY ORDERABLES Performing Organization Address City/[facility]/ZIP Co de Phone Number [facility] [place] [address] * (ABNORMAL) Differential, Automated (03/20/2023 2:32 AM EDT) Neutrophils % 57.4 % [facility] Neutr Abs (ANC) 3.08 1.70 - 6.10 x10(3)/[facility] LABORATORY Lymphocytes % 32.5 % [facility] Lymphocytes Abs 1.7 0.9 - 3.2 x10(3)/[facility] Monocytes % 7.1 % [facility] Monocyte Abs 0.4 0.3 - 0.9 x10(3)/[facility] Eosinophils % 1.3 % [facility] Eosinophils Abs 0.1 0.0 - 0.4 x10(3)/[facility] Basophils % 0.6 % [facility] Basophils Abs 0.0 0.0 - 0.1 x10(3)/[facility] Immature Gran % 1.10 % [facility] Comment: Immature granulocytes(IG's)percentage and absolute count will include metamyelocytes, myelocytes, and promyelocytes. Blood smears from CBCs yielding IG's will be scanned manually for concordance. If this scan disagrees with the automated IG or if promyelocytes are noted, a manual differential will be performed. Reshma Gran Abs 0.06(H) 0.00 - 0.04 x10(3)/[facility] Blood 03/20/2023 2:32 AM EDT 03/20/2023 2:54 AM EDT Narrative Resulting Agency Comment Spec In Lab Lisandro Araya MD HEMATOLOGY ORDERABLE S [facility] [place] [address] * (ABNORMAL) Hemogram (03/20/2023 2:32 AM EDT) WBC 5.4 4.0 - 9.5 x10(3)/[facility] LABORATORY RBC 4.23 4.00 - 5.21 x10(6)/[facility] Hemoglobin 12.1 11.7 - 15.5 g/dL [facility] Hematocrit 35.0(L) 35.7 - 45.8 % [facility] MCV 82.7 82.6 - 94.4 fL [facility] MCH 28.6 27.1 - 32.0 pg [facility] MCHC 34.6 31.7 - 35.0 g/dL [facility] Platelets 319 145 - 357 x10(3)/[facility] RDWSD 44.6 37.0 - 46.0 [facility]ATORY RDWCV 14.7(H) 11.5 - 14.1 % [facility] MPV 9.2 7.6 - 12.9 [facility] nRBC % Auto 0.0 % [facility] nRBC Abs Auto 0.000 0.000 - 0.000 x10(3)/[facility] Blood 03/20/2023 2:32 AM EDT 03/20/2023 2:54 AM EDT Narrative Resulting Agency Comment Spec In Lab Lisandro Araya MD HEMATOLOGY ORDERABLE S Performing Organization Address City/[facility]/ZIP Co de Phone Number [facility] [place] [address] * Phosphorus (03/20/2023 2:32 AM EDT) Phosphorus 3.6 2.5 - 4.5 mg/dL [facility] Blood 03/20/2023 2:32 AM EDT 03/20/2023 2:53 AM EDT Narrative Resulting Agency Comment Spec In Lab Natalee Winn MD CHEMISTRY ORDERABLES Performing Organization Address City/[facility]/ZIP Co de Phone Number [facility] [place] [address] * Magnesium (03/20/2023 2:32 AM EDT) Magnesium 0.83 0.69 - 1.07 mmol/L [facility] Blood 03/20/2023 2:32 AM EDT 03/20/2023 2:53 AM EDT Narrative Resulting Agency Comment Spec In Lab Natalee Winn MD CHEMISTRY ORDERABLES [facility] [place] [address] * (ABNORMAL) Basic Metabolic Panel (non-fasting) (03/20/2023 2:32 AM EDT) Glucose Lvl 122 65 - 199 mg/dL [facility] Comment:Diabetes: >=200 mg/d L plus symptoms BUN 4(L) 8 - 18 mg/dL [facility] Creatinine 0.42(L) 0.70 - 1.20 mg/dL [facility] Sodium 134(L) 135 - 145 mmol/L [facility] Potassium 4.1 3.5 - 5.0 mmol/L [facility] Comment: Please note: ??Patients with WBC >100,000 may have falsely elevated Potassium levels. ??For accurate Potassium quantification in these patients send serum separator tube (gold top) for subsequent determinations. ??Contact the Clinical Chemistry Laboratory if there are any questions. Chloride 97(L) 98 - 107 mmol/L [facility] CO2 26 22 - 31 mmol/L [facility] Anion Gap 11 5 - 15 mmol/L [facility] Calcium 8.1(L) 8.5 - 10.5 mg/dL [facility] Estimated GFR 123 >=60 mL/min/1. 73 m?? [facility] Comment: This patient's estimated GFR [...] and symptoms in addition to eGFR. Blood 03/20/2023 2:32 AM EDT 03/20/2023 2:53 AM EDT Narrative Resulting Agency Comment Spec In Lab Iram Borrero MD CHEMISTRY ORDERABLES [facility] [place] [address] * MRI Cholangiopancreatography WO Contrast (03/19/2023 5:40 PM EDT) Anatomical Region Laterality Modality Magnetic Resonan ce Impressions 03/20/2023 7:59 AM EDT Beaded-strictured appearance of the intrahepatic biliary ducts extending into the most cranial aspect of the common hepatic duct. ??Differential diagnosis would include primary sclerosing cholangitis (PSC) (most commonly), ischemic cholangiopathy, HIV-associated cholangitis, chemotherapy-induced cholangitis, IgG4 disease, amongst others. Thank you for letting us participate in the care of this patient. ??If you are a health care provider and have any questions regarding this report, please contact the number below. ??For patients who have questions please contact the health direct care staffer that requested your imaging first. ? Electronically signed by: Maximo Forrest DO, [facility] ([phone]), at 03/20/2023 7:59 AM Narrative 03/20/2023 7:59 AM EDT EXAMINATION: MRI CHOLANGIOPANCREATOGRAPHY WO CONSTRAST CLINICAL HISTORY:43-year-old female status post Renato-en-Y gastric bypass with abdominal pain and multiple CT examinations and endoscopy. ??Past medical history of morbid obesity, GERD, obstructive sleep apnea, bowel syndrome, and depression. ??Dysphagia. ??Nausea and vomiting. ??Abdominal pain. TECHNIQUE: Noncontrast MRCP was performed. 3D MIPS were created. COMPARISON: Correlation is made to multiple prior CT of the abdomen and pelvis examinations, the most recent of which is dated March 13, 2023 FINDINGS: Limitations: Lack of intravenous contrast limits evaluation of the visceral organs, gastrointestinal tract, and vascular structures. 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 Inferior thorax: Visualized structures within the inferior thorax are within normal limits. Liver: Normal. Bile ducts: There is a beaded-strictured appearance of the central intrahepatic biliary ducts with stricturing at the confluence of the intrahepatic biliary ducts extending into the cranial aspect of the common hepatic duct. ??The remainder of the common hepatic duct and common bile duct are normal in course and caliber. ??There are no intraluminal filling defects. Gallbladder: The gallbladder is surgically absent with surgical clips within the gallbladder fossa. ??There is a cystic duct remnant. Pancreas: Normal signal intensity. Pancreatic duct: Normal caliber and configuration. Spleen: Normal size and signal intensity. Adrenal glands: Normal. Kidneys: There are a few scattered sub-5 mm T2 hyperintense likely tiny renal cysts. Bowel and mesentery: Limited evaluation of the distal esophagus is unremarkable. The stomach is under distended, limiting evaluation. ??There are postsurgical changes from prior Renato-en-Y gastric bypass. ??There are no dilated segments of small or large bowel where visualized. Lymph nodes: There are no pathologically enlarged lymph nodes. Osseous structures: No focal marrow signal abnormality. Procedure Note Maximo Forrest, - 03/20/2023 EXAMINATION: MRI CHOLANGIOPANCREATOGRAPHY WO CONSTRAST CLINICAL HISTORY:43-year-old female status post Renato-en-Y gastric bypasswith abdominal pain and multiple CT examinations and endoscopy. Past medicalhistory of morbid obesity, GERD, obstructive sleep apnea, bowel syndrome, and depression. Dysphagia. Nausea and vomiting. Abdominal pain. TECHNIQUE: Noncontrast MRCP was performed. 3D MIPS were created. COMPARISON: Correlation is made to multiple prior CT of the abdomen andpelvis examinations, the most recent of which is dated March 13, 2023 FINDINGS: Limitations: Lack of intravenous contrast limits evaluation of thevisceral organs, gastrointestinal tract, and vascular structures. 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 Inferior thorax: Visualized structures within the inferior thorax arewithin normal limits. Liver: Normal. Bile ducts: There is a beaded-strictured appearance of the centralintrahepatic biliary ducts with stricturing at the confluence of the intrahepaticbiliary ducts extending into the cranial aspect of the common hepatic duct. The remainder of the common hepatic duct and common bile duct are normal incourse and caliber. There are no intraluminal filling defects. Gallbladder: The gallbladder is surgically absent with surgical clipswithin the gallbladder fossa. There is a cystic duct remnant. Pancreas: Normal signal intensity. Pancreatic duct: Normal caliber and configuration. Spleen: Normal size and signal intensity. Adrenal glands: Normal. Kidneys: There are a few scattered sub-5 mm T2 hyperintense likely tinyrenal cysts. Bowel and mesentery: Limited evaluation of the distal esophagus isunremarkable. The stomach is under distended, limiting evaluation. There arepostsurgical changes from prior Renato-en-Y gastric bypass. There are no dilatedsegments of small or large bowel where visualized. Lymph nodes: There are no pathologically enlarged lymph nodes. Osseous structures: No focal marrow signal abnormality. IMPRESSION Beaded-strictured appearance of the intrahepatic biliary ducts extendinginto the most cranial aspect of the common hepatic duct. Differentialdiagnosis would include primary sclerosing cholangitis (PSC) (most commonly),ischemic cholangiopathy, HIV-associated cholangitis, chemotherapy-inducedcholangitis, IgG4 disease, amongst others. Thank you for letting us participate in the care of this patient. If youare a health care provider and have any questions regarding this report,please contact the number below. For patients who have questions please contactthe health direct care staffer that requested your imaging first. Electronically signed by: Maximo Forrest DO, [facility]([phone]), at 03/20/2023 7:59 AM Iram Borrero MD [facility] ORDERABLES * (ABNORMAL) Phosphorus (03/19/2023 3:32 PM EDT) Phosphorus 2.3(L) 2.5 - 4.5 mg/dL [facility] Comment:result rechecked-nb Blood 03/19/2023 3:32 PM EDT 03/19/2023 3:53 PM EDT Narrative Resulting Agency Comment Spec In Lab Iram Borrero MD CHEMISTRY ORDERABLES Performing Organization Address [facility] Co de Phone Number [facility] [place] [address] * (ABNORMAL) Magnesium (03/19/2023 3:32 PM EDT) Magnesium 0.63(L) 0.69 - 1.07 mmol/L [facility] Blood 03/19/2023 3:32 PM EDT 03/19/2023 3:53 PM EDT Narrative Resulting Agency Comment Spec In Lab Iram Borrero MD CHEMISTRY ORDERABLES Performing Organization Address City/[facility]/ZIP Co de Phone Number [facility] [place] [address] * (ABNORMAL) Basic Metabolic Panel (non-fasting) (03/19/2023 3:32 PM EDT) Glucose Lvl 100 65 - 199 mg/dL [facility] Comment:Diabetes: >=200 mg/d L plus symptoms BUN 5(L) 8 - 18 mg/dL [facility] Creatinine 0.40(L) 0.70 - 1.20 mg/dL [facility] Sodium 135 135 - 145 mmol/L [facility] Potassium 4.1 3.5 - 5.0 mmol/L [facility] Comment: Please note: ??Patients with WBC >100,000 may have falsely elevated Potassium levels. ??For accurate Potassium quantification in these patients send serum separator tube (gold top) for subsequent determinations. ??Contact the Clinical Chemistry Laboratory if there are any questions. Chloride 97(L) 98 - 107 mmol/L [facility] CO2 26 22 - 31 mmol/L [facility] Anion Gap 12 5 - 15 mmol/L [facility] Calcium 8.6 8.5 - 10.5 mg/dL [facility] Estimated GFR 124 >=60 mL/min/1. 73 m?? [facility] Comment: This patient's estimated GFR [...] and symptoms in addition to eGFR. Blood 03/19/2023 3:32 PM EDT 03/19/2023 3:53 PM EDT Narrative Resulting Agency Comment Spec In Lab Iram Borrero MD CHEMISTRY ORDERABLES [facility] [place] [address] * XR Fluoro Barium Swallow (Double Contrast) (03/19/2023 1:22 PM EDT) Anatomical Region Laterality Modality N/A Radio Fluoroscop y Impressions 03/19/2023 1:29 PM EDT 1. ??Exam limited because only 2 swallows were completed. 2. ??No obstruction or intestinal dilatation and normal appearance of fundal pouch. Contrast passes rapidly through the gastrojejunal anastomosis into small bowel segments. 3. ??Small sliding hiatal hernia. Thank you for letting us participate in the care of this patient. ??If you are a health care provider and have any questions regarding this report, please contact the number below. ??For patients who have questions please contact the health direct care staffer that requested your imaging first. ? Electronically signed by: Poppy Webster MD, [facility] ([phone]), at 03/19/2023 1:29 PM Narrative 03/19/2023 1:29 PM EDT EXAMINATION: XR FLUORO BARIUM SWALLOW (DOUBLE CONTRAST) CLINICAL HISTORY: s/p RNY gastric bypass with PO intolerance please eval for dysmotility TECHNIQUE: Double contrast esophagram was performed. Fluoroscopic spot films were obtained. Fluoro time: 0.67 minutes COMPARISON: Outside CT of the pelvis February 2023 FINDINGS: Examination limited because patient tolerated only 2 swallows of barium. The esophagus is normal in course and caliber, and is well distended on double contrast views. ??The mucosal pattern is normal. There is a small sliding hiatal hernia. Esophageal peristalsis is normal. . Contrast passes rapidly into the gastric fundal pouch and through the gastrojejunal anastomosis into small bowel segments without delay or dilatation. Procedure Note Poppy Webster MD - 03/19/2023 EXAMINATION: XR FLUORO BARIUM SWALLOW (DOUBLE CONTRAST) CLINICAL HISTORY: s/p RNY gastric bypass with PO intolerance please eval for dysmotility TECHNIQUE: Double contrast esophagram was performed. Fluoroscopic spot films wereobtained. Fluoro time: 0.67 minutes COMPARISON: Outside CT of the pelvis February 2023 FINDINGS: Examination limited because patient tolerated only 2 swallows of barium. The esophagus is normal in course and caliber, and is well distended ondouble contrast views. The mucosal pattern is normal. There is a small sliding hiatal hernia. Esophageal peristalsis is normal. . Contrast passes rapidly into the gastric fundal pouch and through the gastrojejunal anastomosis into small bowel segments without delay ordilatation. IMPRESSION 1. Exam limited because only 2 swallows were completed. 2. No obstruction or intestinal dilatation and normal appearance offundal pouch. Contrast passes rapidly through the gastrojejunal anastomosis intosmall bowel segments. 3. Small sliding hiatal hernia. Thank you for letting us participate in the care of this patient. If youare a health care provider and have any questions regarding this report,please contact the number below. For patients who have questions please contactthe health direct care staffer that requested your imaging first. Iram Borrero MD IMG FLUORO ORDERABLE S * POCT Glucose (03/19/2023 11:44 AM EDT) POC Glucose 93 65 - 199 mg/dL [facility] Comment: Supplemental ranges: <140 mg/dL before meals <180 mg/dL all other times of the day Blood 03/19/2023 11:4 4 AM EDT 03/19/2023 11:44 AM EDT Iram Borrero MD POINT OF CARE TEST O RDERAISIDRO Performing Organization Address City/[facility]/ZIP Co de Phone Number [facility] [place] [address] * POCT Glucose (03/19/2023 7:42 AM EDT) POC Glucose 92 65 - 199 mg/dL [facility] Comment: Supplemental ranges: <140 mg/dL before meals <180 mg/dL all other times of the day Blood 03/19/2023 7:42 AM EDT 03/19/2023 7:42 AM EDT Iram Borrero MD POINT OF CARE TEST O RDERAISIDRO Performing Organization Address City/[facility]/ZIP Co de Phone Number [facility] [place] [address] * (ABNORMAL) Differential, Automated (03/19/2023 3:49 AM EDT) Neutrophils % 63.3 % [facility] Neutr Abs (ANC) 5.94 1.70 - 6.10 x10(3)/mc L [facility] Lymphocytes % 27.2 % [facility] Lymphocytes Abs 2.6 0.9 - 3.2 x10(3)/[facility] LABORATORY Monocytes % 7.2 % [facility] Monocyte Abs 0.7 0.3 - 0.9 x10(3)/[facility]ORY Eosinophils % 1.5 % [facility] Eosinophils Abs 0.1 0.0 - 0.4 x10(3)/[facility] Basophils % 0.3 % [facility] Basophils Abs 0.0 0.0 - 0.1 x10(3)/[facility]ORY Immature Gran % 0.50 % [facility] Comment: Immature granulocytes(IG's)percentage and absolute count will include metamyelocytes, myelocytes, and promyelocytes. Blood smears from CBCs yielding IG's will be scanned manually for concordance. If this scan disagrees with the automated IG or if promyelocytes are noted, a manual differential will be performed. Reshma Gran Abs 0.05(H) 0.00 - 0.04 x10(3)/[facility] LAB[facility]ATORY Blood 03/19/2023 3:49 AM EDT 03/19/2023 4:00 AM EDT Narrative Resulting Agency Comment Spec In Lab Dick Bower MD HEMATOLOGY ORDERABLE S [facility] [place] [address] * (ABNORMAL) Hemogram (03/19/2023 3:49 AM EDT) WBC 9.4 4.0 - 9.5 x10(3)/[facility] LABORATORY RBC 4.10 4.00 - 5.21 x10(6)/[facility]ORY Hemoglobin 12.0 11.7 - 15.5 g/dL [facility] Hematocrit 32.9(L) 35.7 - 45.8 % [facility] MCV 80.2(L) 82.6 - 94.4 fL [facility] MCH 29.3 27.1 - 32.0 pg [facility] MCHC 36.5(H) 31.7 - 35.0 g/dL [facility] Platelets 272 145 - 357 x10(3)/[facility] LABORATORY RDWSD 42.3 37.0 - 46.0 fL [facility] RDWCV 14.3(H) 11.5 - 14.1 % [facility] MPV 9.4 7.6 - 12.9 [facility] LABORATORY nRBC % Auto 0.2 % [facility] nRBC Abs Auto 0.020(H) 0.000 - 0.000 x10(3)/[facility] LAB[facility]ATORY Blood 03/19/2023 3:49 AM EDT 03/19/2023 4:00 AM EDT Narrative Resulting Agency Comment Spec In Lab Dick Bower MD HEMATOLOGY ORDERABLE S [facility] [place] [address] * (ABNORMAL) Phosphorus (03/19/2023 3:49 AM EDT) Phosphorus 1.0(Critic al) 2.5 - 4.5 mg/dL [facility] Comment:called by [facility]/read b ack by joann rouse/ [id number] Blood 03/19/2023 3:49 AM EDT 03/19/2023 3:59 AM EDT Narrative Resulting Agency Comment Spec In Lab Natalee Winn MD CHEMISTRY ORDERABLES [facility] [place] [address] * Magnesium (03/19/2023 3:49 AM EDT) Magnesium 0.69 0.69 - 1.07 mmol/L [facility] Blood 03/19/2023 3:49 AM EDT 03/19/2023 3:59 AM EDT Narrative Resulting Agency Comment Spec In Lab Natalee Winn MD CHEMISTRY ORDERABLES [facility] [place] [address] * (ABNORMAL) Basic Metabolic Panel (non-fasting) (03/19/2023 3:49 AM EDT) Glucose Lvl 84 65 - 199 mg/dL [facility] Comment:Diabetes: >=200 mg/d L plus symptoms BUN 8 8 - 18 mg/dL [facility] Creatinine 0.41(L) 0.70 - 1.20 mg/dL [facility] Sodium 135 135 - 145 mmol/L [facility] Potassium 3.1(L) 3.5 - 5.0 mmol/L [facility] Comment: Please note: ??Patients with WBC >100,000 may have falsely elevated Potassium levels. ??For accurate Potassium quantification in these patients send serum separator tube (gold top) for subsequent determinations. ??Contact the Clinical Chemistry Laboratory if there are any questions. Chloride 97(L) 98 - 107 mmol/L [facility] CO2 27 22 - 31 mmol/L [facility] Anion Gap 11 5 - 15 mmol/L [facility] Calcium 8.7 8.5 - 10.5 mg/dL [facility] Estimated GFR 124 >=60 mL/min/1. 73 m?? [facility] Comment: This patient's estimated GFR [...] and symptoms in addition to eGFR. Blood 03/19/2023 3:49 AM EDT 03/19/2023 3:59 AM EDT Narrative Resulting Agency Comment Spec In Lab Iram Borrero MD CHEMISTRY ORDERABLES Performing Organization Address City/[facility]/ZIP Co de Phone Number [facility] [place] [address] * POCT Glucose (03/19/2023 3:32 AM EDT) POC Glucose 104 65 - 199 mg/dL [facility] Comment: Supplemental ranges: <140 mg/dL before meals <180 mg/dL all other times of the day Blood 03/19/2023 3:32 AM EDT 03/19/2023 3:32 AM EDT Iram Borrero MD POINT OF CARE TEST O RDTESHA Performing Organization Address [facility] Co de Phone Number [facility] [place] [address] * POCT Glucose (03/19/2023 2:38 AM EDT) POC Glucose 91 65 - 199 mg/dL [facility] Comment: Supplemental ranges: <140 mg/dL before meals <180 mg/dL all other times of the day Blood 03/19/2023 2:38 AM EDT 03/19/2023 2:38 AM EDT Iram Borrero MD POINT OF CARE TEST O MANDY Performing Organization Address City/[facility]/ZIP Co de Phone Number [facility] [place] [address] * POCT Glucose (03/19/2023 1:22 AM EDT) POC Glucose 151 65 - 199 mg/dL [facility] Comment: Supplemental ranges: <140 mg/dL before meals <180 mg/dL all other times of the day Blood 03/19/2023 1:22 AM EDT 03/19/2023 1:22 AM EDT Iram Borrero MD POINT OF CARE TEST O MANDY Performing Organization Address [facility] Co de Phone Number [facility] [place] [address] * POCT Glucose (03/19/2023 12:30 AM EDT) POC Glucose 140 65 - 199 mg/dL [facility] Comment: Supplemental ranges: <140 mg/dL before meals <180 mg/dL all other times of the day Blood 03/19/2023 12:3 0 AM EDT 03/19/2023 12:30 AM EDT Iram Borrero MD POINT OF CARE TEST Maribel GALVAN Performing Organization Address [facility] de Phone Number [facility] [place] [address] * (ABNORMAL) BLOOD GAS 2 VENOUS (03/18/2023 11:10 PM EDT) pH Larry 7.55(H) 7.32 - 7.42 [facility] pCO2 Larry 33(L) 41 - 51 mmHg [facility] pO2 Larry 42(H) 25 - 40 mmHg [facility] HCO3 Larry 27.7 mmol/L [facility] BE Larry 5.3 mmol/L [facility] Hgb Blood Gas Not Perf 11.7 - 15.5 g/dL [facility] O2HB Larry Not Perf % [facility] COHB Larry Not Perf % [facility] Comment: Nonsmokers: 0.5-1.5% COHB Smokers: Variable, but usually less than 10% Toxic: 20-30% COHB Lethal: Greater than 60% COHB METHB Larry Not Perf <=1.5 % [facility] Na Whole Blood 133(L) 135 - 145 mmol/L [facility] K Whole Blood 3.6 3.5 - 5.0 mmol/L [facility] Comment: Please note: Patients with WBC >100,000 may have falsely elevated Potassium levels. Contact the Clinical Chemistry Laboratory if there are any questions. ICa Whole Blood 1.09(L) 1.15 - 1.33 mmol/L [facility] Comment: Note: ??Total bilirubin higher than 20 mg/dL may lead to falsely low ionized calcium. CL Whole Blood 95(L) 98 - 107 mmol/L [facility] Gluc Whole Bld 144 65 - 199 mg/dL [facility] Comment:Diabetes: >=200 mg/d L plus symptoms Lactate WB 1.7 0.5 - 2.2 mmol/L [facility] BGas Source Venous [facility] Blood 03/18/2023 11:1 0 PM EDT 03/18/2023 11:10 PM EDT Iram Borrero MD CHEMISTRY ORDERABLES [facility] [place] [address] * (ABNORMAL) Beta Hydroxybutyrate (03/18/2023 11:08 PM EDT) BOHB 1.33(H) 0.00 - 0.30 mmol/L [facility] Comment: This test has not been cleared by the [place] FDA. Performance characteristics of this test were determined by [facility] in accordance with CLIA requirements. This laboratory is qualified under CLIA to perform high-complexity testing. Blood 03/18/2023 11:0 8 PM EDT 03/18/2023 11:14 PM EDT Narrative Resulting Agency Comment Spec In Lab Iram Borrero MD CHEMISTRY ORDERABLES [facility] [place] [address] * (ABNORMAL) Basic Metabolic Panel (non-fasting) (03/18/2023 11:08 PM EDT) Glucose Lvl 144 65 - 199 mg/dL [facility] Comment:Diabetes: >=200 mg/d L plus symptoms BUN 11 8 - 18 mg/dL [facility] Creatinine 0.40(L) 0.70 - 1.20 mg/dL [facility] Sodium 134(L) 135 - 145 mmol/L [facility] Potassium 3.3(L) 3.5 - 5.0 mmol/L [facility] Comment: Please note: ??Patients with WBC >100,000 may have falsely elevated Potassium levels. ??For accurate Potassium quantification in these patients send serum separator tube (gold top) for subsequent determinations. ??Contact the Clinical Chemistry Laboratory if there are any questions. Chloride 95(L) 98 - 107 mmol/L [facility] CO2 26 22 - 31 mmol/L [facility] Anion Gap 13 5 - 15 mmol/L [facility] Calcium 8.6 8.5 - 10.5 mg/dL [facility] Comment:reult rechecked-KS Estimated GFR 124 >=60 mL/min/1. 73 m?? [facility] Comment: This patient's estimated GFR [...] and symptoms in addition to eGFR. Blood 03/18/2023 11:0 8 PM EDT 03/18/2023 11:14 PM EDT Narrative Resulting Agency Comment Spec In Lab Iram Borrero MD CHEMISTRY ORDERABLES Performing Organization Address [facility]/ZIP Co de Phone Number [facility] [place] [address] * POCT Glucose (03/18/2023 10:50 PM EDT) POC Glucose 134 65 - 199 mg/dL [facility] Comment: Supplemental ranges: <140 mg/dL before meals <180 mg/dL all other times of the day Blood 03/18/2023 10:5 0 PM EDT 03/18/2023 10:50 PM EDT Iram Borrero MD POINT OF CARE TEST O RDERABLES Performing Organization Address [facility] Co de Phone Number [facility] [place] [address] * EKG 12 Lead (03/18/2023 9:35 PM EDT) Ventricular rate 95 BPM MUSE SYSTEM Atrial Rate 95 BPM MUSE SYSTEM P-R Interval 140 ms MUSE SYSTEM QRS Duration 90 ms MUSE SYSTEM Q-T Interval 426 ms MUSE SYSTEM QTC Calculated (Bezet) 535 ms MUSE SYSTEM Calculated P [place] 25 degrees MUSE SYSTEM Calculated R [place] 0 degrees MUSE SYSTEM Calculated T [place] -86 degrees MUSE SYSTEM INTERPRETATION Normal sinus rhythm Left ventricular hypertrophy with repolarization abnormality ( R in aVL ) Abnormal ECG When compared with ECG of 18-MAR-2023 20:24, (unconfirmed) No significant change was found Confirmed by MD Babita, Andres ([id number]) on 03/19/2023 2:23:56 PM MUSE SYSTEM 03/18/2023 9:35 PM EDT 03/19/2023 2:23 PM EDT Iram Borrero MD ECG ORDERABLES Performing Organization Address City/[facility]/ZIP Co de Phone Number MUSE SYSTEM * EKG 12 Lead (03/18/2023 8:24 PM EDT) Pathologist [facility] [place] Ventricular rate 91 BPM MUSE SYSTEM Atrial Rate 91 BPM MUSE SYSTEM P-R Interval 144 ms MUSE SYSTEM QRS Duration 94 ms MUSE SYSTEM Q-T Interval 430 ms MUSE SYSTEM QTC Calculated (Bezet) 528 ms MUSE SYSTEM Calculated P [place] 27 degrees MUSE SYSTEM Calculated R [place] 2 degrees MUSE SYSTEM Calculated T [place] -60 degrees MUSE SYSTEM INTERPRETATION Normal sinus rhythm Left ventricular hypertrophy with repolarization abnormality ( R in aVL , Kaden product ) Prolonged QT Abnormal ECG When compared with ECG of 05-NOV-2007 13:07, T wave inversion more evident in Inferior leads T wave inversion now evident in Anterolateral leads QT has lengthened Confirmed by MD Babita, Andres ([id number]) on 03/19/2023 2:23:40 PM MUSE SYSTEM 03/18/2023 8:24 PM EDT 03/19/2023 2:23 PM EDT Salvador Blum MD ECG ORDERABLES MUSE SYSTEM * Lactate, whole blood, send to lab ([facility] [place] (03/18/2023 5:01 PM EDT) [facility] Lactate WB 1.6 0.5 - 2.2 mmol/L [facility] Blood 03/18/2023 5:01 PM EDT 03/18/2023 5:10 PM EDT Narrative Resulting Agency Comment Spec In Lab Pito Mclaughlin MD CHEMISTRY ORDERABL ES [facility] [place] [address] * (ABNORMAL) Beta Hydroxybutyrate (03/18/2023 5:01 PM EDT) Pathologist [facility] [place] BOHB 3.29(H) 0.00 - 0.30 mmol/L [facility] Comment: This test has not been cleared by the [place] FDA. Performance characteristics of this test were determined by [facility] in accordance with CLIA requirements. This laboratory is qualified under CLIA to perform high-complexity testing. Blood 03/18/2023 5:01 PM EDT 03/18/2023 5:11 PM EDT Narrative Resulting Agency Comment Spec In Lab Pito Mclaughlin MD CHEMISTRY ORDERABL ES [facility] [place] [address] * (ABNORMAL) Differential, Automated (03/18/2023 3:49 PM EDT) Neutrophils % 78.5 % [facility] Neutr Abs (ANC) 7.98(H) 1.70 - 6.10 x10(3)/[facility] LABORATORY Lymphocytes % 15.0 % [facility] Lymphocytes Abs 1.5 0.9 - 3.2 x10(3)/[facility] LABORATORY Monocytes % 5.3 % [facility] Monocyte Abs 0.5 0.3 - 0.9 x10(3)/[facility] LABORATORY Eosinophils % 0.2 % [facility] Eosinophils Abs 0.0 0.0 - 0.4 x10(3)/[facility]ORY Basophils % 0.3 % [facility] Basophils Abs 0.0 0.0 - 0.1 x10(3)/[facility] LABORATORY Immature Gran % 0.70 % [facility] Comment: Immature granulocytes(IG's)percentage and absolute count will include metamyelocytes, myelocytes, and promyelocytes. Blood smears from CBCs yielding IG's will be scanned manually for concordance. If this scan disagrees with the automated IG or if promyelocytes are noted, a manual differential will be performed. Reshma Gran Abs 0.07(H) 0.00 - 0.04 x10(3)/ L [facility] Blood 03/18/2023 3:49 PM EDT 03/18/2023 4:03 PM EDT Narrative Resulting Agency Comment Spec In Lab Ivan GAINES HEMATOLOGY ORDERABLE S [facility] [place] [address] * (ABNORMAL) Hemogram (03/18/2023 3:49 PM EDT) WBC 10.2(H) 4.0 - 9.5 x10(3)/[facility] LABORATORY RBC 4.99 4.00 - 5.21 x10(6)/[facility]ORY Hemoglobin 14.4 11.7 - 15.5 g/dL [facility] Hematocrit 40.5 35.7 - 45.8 % [facility] MCV 81.2(L) 82.6 - 94.4 fL [facility] MCH 28.9 27.1 - 32.0 pg [facility] MCHC 35.6(H) 31.7 - 35.0 g/dL [facility] Platelets 350 145 - 357 x10(3)/[facility] LABORATORY RDWSD 42.1 37.0 - 46.0 [facility] LABORATORY RDWCV 14.4(H) 11.5 - 14.1 % [facility] MPV 9.1 7.6 - 12.9 [facility] LABORATORY nRBC % Auto 0.0 % [facility] nRBC Abs Auto 0.000 0.000 - 0.000 x10(3)/[facility] LABORATORY Blood 03/18/2023 3:49 PM EDT 03/18/2023 4:03 PM EDT Narrative Resulting Agency Comment Spec In Lab Ivan Miguelina Ivelisse GAINES HEMATOLOGY ORDERABLE S [facility] [place] [address] * Prealbumin (03/18/2023 3:49 PM EDT) Prealbumin 21 20 - 40 mg/dL [facility] Comment: Prealbumin levels are generally lower in the pediatric population; adult concentrations are usually attained near puberty. Blood 03/18/2023 3:49 PM EDT 03/18/2023 4:03 PM EDT Narrative Resulting Agency Comment Spec In Lab Pito Mclaughlin MD CHEMISTRY ORDERABL ES Performing Organization Address [facility] Co de Phone Number [facility] [place] [address] * (ABNORMAL) Lipase (03/18/2023 3:49 PM EDT) Pathologist [facility] [place] Lipase 156(H) 0 - 60 unit/L [facility] Blood 03/18/2023 3:49 PM EDT 03/18/2023 4:03 PM EDT Narrative Resulting Agency Comment Spec In Lab Pito Mclaughlin MD CHEMISTRY ORDERABL ES Performing Organization Address [facility] Co de Phone Number [facility] [place] [address] * (ABNORMAL) Hepatic Function Panel (03/18/2023 3:49 PM EDT) Pathologist [facility] [place] Total Protein 7.6 6.1 - 8.0 g/dL [facility] Albumin 4.4 3.2 - 5.2 g/dL [facility] AST 74(H) 0 - 30 unit/L [facility] ALT 87(H) 0 - 30 unit/L [facility] Alk Phos 152(H) 35 - 105 unit/L [facility] Total Bilirubin 1.4(H) 0.2 - 1.3 mg/dL [facility] Bili, Direct 0.6(H) 0.0 - 0.3 mg/dL [facility] Blood 03/18/2023 3:49 PM EDT 03/18/2023 4:03 PM EDT Narrative Resulting Agency Comment Spec In Lab Pito Mclaughlin MD CHEMISTRY ORDERABL ES [facility] [place] [address] * (ABNORMAL) Basic Metabolic Panel (non-fasting) (03/18/2023 3:49 PM EDT) Glucose Lvl 113 65 - 199 mg/dL [facility] Comment:Diabetes: >=200 mg/d L plus symptoms BUN 14 8 - 18 mg/dL [facility] Creatinine 0.47(L) 0.70 - 1.20 mg/dL [facility] Sodium 138 135 - 145 mmol/L [facility] Potassium 3.0(Criti royal) 3.5 - 5.0 mmol/L [facility] Comment: Result called by ANGELA and read back by Anjum Burroughs at 03/18/2023 [id number] Please note: ??Patients with WBC >100,000 may have falsely elevated Potassium levels. ??For accurate Potassium quantification in these patients send serum separator tube (gold top) for subsequent determinations. ??Contact the Clinical Chemistry Laboratory if there are any questions. Chloride 92(L) 98 - 107 mmol/L [facility] CO2 28 22 - 31 mmol/L [facility] Anion Gap 18(H) 5 - 15 mmol/L [facility] Calcium 9.7 8.5 - 10.5 mg/dL [facility] Estimated GFR 120 >=60 mL/min/1. 73 m?? [facility] Comment: This patient's estimated GFR [...] and symptoms in addition to eGFR. Blood 03/18/2023 3:49 PM EDT 03/18/2023 4:03 PM EDT Narrative Resulting Agency Comment Spec In Lab Pito Mclaughlin MD CHEMISTRY ORDERABL ES Performing Organization Address City/[facility]/ZIP Co de Phone Number [facility] [place] [address] * (ABNORMAL) Urine culture (03/18/2023 1:52 PM EDT) Urine Culture Greater than 100,000 cfu/ml Escherichia coli(A) [facility] Organism Escherichia coli(A) [facility] Clean Catch Urine 03/18/2023 1:52 PM EDT 03/18/2023 4:24 PM EDT Narrative Resulting Agency Comment Spec In Lab Organism Antibiotic Method Susceptibility Escherichia coli Amikacin VITEK 2 METHOD Sensitive Escherichia coli Ampicillin + Sulbactam VITEK 2 METHOD Sensitive Escherichia coli Aztreonam VITEK 2 METHOD Sensitive Escherichia coli Cefazolin VITEK 2 METHOD Sensitive Escherichia coli Cefepime VITEK 2 METHOD <=1: Sensitive Escherichia coli Ceftazidime VITEK 2 METHOD <=1: Sensitive Escherichia coli Ceftriaxone VITEK 2 METHOD Sensitive Escherichia coli Ertapenem VITEK 2 METHOD Sensitive Escherichia coli Gentamicin VITEK 2 METHOD Sensitive Escherichia coli Levofloxacin VITEK 2 METHOD Sensitive Comment: Levofloxacin and Ciprofloxacin may not adequately treat infections in critically ill patients even when isolates test susceptible in the laboratory. Contact Infectious Disease before using in critically ill patients. Escherichia coli Meropenem VITEK 2 METHOD <=0.25: Sensitive Escherichia coli Nitrofurantoin VITEK 2 METHOD Sensitive Escherichia coli Piperacillin/Tazobactam VITEK 2 METHO D <=4: Sensitive Escherichia coli Tetracycline VITEK 2 METHOD Sensitive Escherichia coli Tobramycin VITEK 2 METHOD Sensitive Escherichia coli Trimethoprim/Sulfa VITEK 2 METHOD Resistant Ivan GAINES MICROBIOLOGY - GENER AL ORDERABLES Performing Organization Address [facility]/ZIP Co de Phone Number [facility] [place] [address] * (ABNORMAL) Urinalysis Microscopic Exam (03/18/2023 1:52 PM EDT) RBC UA 15(H) 0 - 4 /HPF [facility] WBC UA 13(H) 0 - 5 /HPF [facility] Bacteria UA Many(A) None /HPF [facility] Squam Epith UA >36(H) <=4 /HPF [facility] Clean Catch Urine 03/18/2023 1:52 PM EDT 03/19/2023 8:39 AM EDT Narrative Resulting Agency Comment Spec In Lab Ivan GAINES URINE ORDERABLES [facility] [place] [address] * (ABNORMAL) Urinalysis with reflex Culture (03/18/2023 1:52 PM EDT) Glucose UA Negative Negative mg/dL [facility] Protein UA 100(A) Negative mg/dL [facility] Bilirubin UA Large(A) Negative mg/dL [facility] Comment: Clinical correlation required for positive Urine Bilirubin results as false positive may occur with some drugs and drug related products. If a false positive is suspected a serum total bilirubin should be considered if clinically indicated. Urobilinogen UA Normal Normal mg/dL [facility] pH UA 7.0 5.0 - 8.0 [facility] Blood UA Negative Negative mg/dL [facility] Ketones UA >=80(Critic al) Negative mg/dL [facility] Comment: Urinalysis result NOT critical without a combination of Glucose greater than or equal to 500 mg/dL AND Ketones greater than or equal to 80 mg/dL Nitrite UA Positive(A) Negative [facility] Leukocytes UA Small(A) Negative [facility] Appearance UA Turbid(A) Clear [facility] Spec [place] UA 1.027 1.005 - 1.030 [facility] Color UA [place](A) Yellow [facility] Culture Reflexed Yes [facility] Clean Catch Urine 03/18/2023 1:52 PM EDT 03/18/2023 1:52 PM EDT Narrative Resulting Agency Comment Spec In Lab Pito Mclaughlin MD URINE ORDERABLES [facility] [place] [address] * Film Library- Storage Only CT Abdomen & Pelvis (03/13/2023 12:00 AM EDT) Narrative Dicom, Auditing User - 03/18/2023 8:00 PM EDT This exam is auto-finalizing. It's purpose is for storage only. Iram Borrero MD [facility]RARY ORD ERABLES * Film Library- Storage Only Ultrasound Study (02/25/2023 12:00 AM EDT) Narrative Dicom, Auditing User - 03/18/2023 7:58 PM EDT This exam is auto-finalizing. It's purpose is for storage only. Iram Borrero MD [facility] ORD ERABLES documented in this encounter Visit Diagnoses Diagnosis Abdominal pain- Primary Abdominal pain, unspecified site Protein-calorie malnutrition, unspecified severity Dizziness Dizziness and giddiness Physical deconditioning Debility, unspecified Diplopia Severe protein-calorie malnutrition Other severe protein-calorie malnutrition Diplopia Dizziness Dizziness and giddiness Physical deconditioning Debility, unspecified documented in this encounter Admitting Diagnoses Diagnosis Abdominal pain Abdominal pain, unspecified site documented in this encounter Administered Medications Inactive Administered Medications - up to 3 most recent administrations Medication Order MAR Action Action Date Dose Rate Site acetaminophen (Ofirmev) (1,000 mg/100 mL) infusion 1,000 mg 1,000 mg, Intravenous, at 400 mL/hr, Administer over 15 Minutes, EVERY 8 HOURS SCHEDULED, 3 doses, First dose on Sat03/18/23 at 2200, Last dose on Sat03/19/23 at 1400, Maximum dose of acetaminophen is 4000 mg from all sources in 24 hours. When ordered for pain, acetaminophen should be given even when other ordered pain medications are indicated. , Routine, Is ketorolac (Toradol) IV contraindicated? Yes, Can this patient tolerate oral medications or suppositories? No Given 03/19/2023 2:32 PM EDT 1,000 mg 400 mL/hr Given 03/19/2023 5:29 AM EDT 1,000 mg 400 mL/hr Given 03/18/2023 11:27 PM EDT 1,000 mg 400 mL/hr acetaminophen (Ofirmev) (1,000 mg/100 mL) infusion 1,000 mg 1,000 mg, Intravenous, at 400 mL/hr, Administer over 15 Minutes, EVERY 8 HOURS SCHEDULED, 3 doses, First dose (after last reorder) on Sat03/19/23 at 1700, Last dose on Sat03/20/23 at 0900, Maximum dose of acetaminophen is 4000 mg from all sources in 24 hours. When ordered for pain, acetaminophen should be given even when other ordered pain medications are indicated. Please time first dose for 2199, Routine, Is ketorolac (Toradol) IV contraindicated? Yes, Can this patient tolerate oral medications or suppositories? No Given 03/20/2023 1:06 AM EDT 1,000 mg 400 mL/hr Given 03/19/2023 6:07 PM EDT 1,000 mg 400 mL/hr acetaminophen (Tylenol) (32.02 mg/mL) oral liquid 650 mg 650 mg, Oral, EVERY 6 HOURS PRN, Starting on Sat03/20/23 at 0700, Until Sat03/29/23 at 1536, Fever, Maximum dose of acetaminophen is 4,000 mg from all sources in 24 hours. When ordered for pain, acetaminophen should be given even when other ordered pain medications are indicated. , Routine Given 03/27/2023 1:48 PM EDT 650 mg Given 03/25/2023 2:46 AM EDT 650 mg barium sulfate (Ezpaque) 60% (w/v) oral liquid 0-710 mL 0-710 mL, Oral, ONCE PRN, 1 dose, Starting on Sat03/19/23 at 1322, Until Sat03/19/23 at 1312, Per Protocol, Radiology Contrast, Routine Given 03/19/2023 1:12 PM EDT 10 mLs cyanocobalamin (Vitamin B-12) (1,000 mcg/mL) injection 100 mcg 100 mcg, Intramuscular, ONCE, 1 dose, On Char 03/21/23 at 2030, Routine Given 03/21/2023 9:19 PM EDT 100 mcg cyclobenzaprine (Flexeril) tablet 5 mg 5 mg, Oral, 3 TIMES DAILY PRN, Starting on Sat03/19/23 at 0104, Until Sat03/29/23 at 1536, Muscle spasms, Routine Given 03/25/2023 2:46 AM EDT 5 mg dextrose 10% in lactated ringers with potassium chloride 20 mEq infusion at 0-250 mL/hr, Intravenous, CONTINUOUS, Starting on Sat03/18/23 at 2247, Until Sat03/19/23 at 0324, There are two IV fluid orders for this patient. The TOTAL RATE for IV fluids combined is 250 mL/hr. If blood glucose is greater than 250: - Infuse LR with KCl 20 mEq/L at full rate of 250 mL/hr. AND - Hold infusion of D10 + LR with KCl 20 mEq/L. If blood glucose is between 150 - 250: - Infuse LR with KCl 20 mEq/L at 125 mL/hr . AND - Infuse D10 + LR with KCl 20 mEq/L at 125 mL/hr. If blood glucose is less than 150: - HOLD infusion of LR with KCl 20 mEq/L. AND - Infuse D10 + LR with KCl 20 mEq/L at full rate of 250 mL/hr. Rate/Dose Change 03/19/2023 2:43 AM EDT 250 mL/hr 250 mL/hr Rate/Dose Change 03/19/2023 1:23 AM EDT 125 mL/hr 125 mL/ hr Rate/Dose Verify 03/19/2023 12:32 AM EDT 250 mL/hr 250 mL /hr dextrose 10% infusion 250 mL, at 1,000 mL/hr, Intravenous, EVERY 30 MIN PRN, Starting on Sat03/18/23 at 2146, Until Sat03/29/23 at 1536, For BG 50-70 mg/dL: Oral treatment preferred: If able to drink, give 120 mL Juice or Regular (not diet) soda OR If NPO, give 15 gram glucose 40% oral gel massaged into buccal mucosa OR if unconscious or uncooperative, give 25 gram (250 mL) Dextrose 10% IV over 15 minutes per protocol OR, if no IV access, 1 mg Glucagon IM. For BG less than 50 mg/dL: Oral treatment preferred: If able to drink, give 240 mL Juice or Regular (not diet) soda OR If NPO, give 30 gram glucose 40% oral gel massaged in buccal mucosa OR if unconscious or uncooperative, give 25 gram (250 mL) Dextrose 10% IV over 15 minutes per protocol OR, if no IV access, 1 mg Glucagon IM. Recheck BG in 30 minutes. May repeat juice/soda, gel, dextrose or glucagon once per episode. For persistent hypoglycemia, consider longer-acting treatment for the duration of the active insulin. dextrose 5% and sodium chloride 0.9% infusion 125 mL/hr, Intravenous, CONTINUOUS, Starting on Sat03/18/23 at 1615, Until Sat03/19/23 at 0104 New Bag 03/18/2023 4:59 PM EDT 125 mL/hr 125 mL/hr docusate sodium (Colace) capsule 100 mg 100 mg, Oral, 2 TIMES DAILY, First dose on Sat03/19/23 at 1115, Until Discontinued, Routine Given 03/28/2023 9:42 PM EDT 100 mg Given 03/27/2023 9:13 PM EDT 100 mg Given 03/27/2023 10:56 AM EDT 100 mg enoxaparin (Lovenox) (40 mg/0.4 mL) subcutaneous injection 40 mg 40 mg, Subcutaneous, NIGHTLY, First dose on Sat03/18/23 at 2100, Until Discontinued, Routine Given 03/21/2023 9:19 PM EDT 40 mg Given 03/20/2023 9:31 PM EDT 40 mg Given 03/19/2023 9:06 PM EDT 40 mg enoxaparin (Lovenox) (40 mg/0.4 mL) subcutaneous injection 40 mg 40 mg, Subcutaneous, EVERY 24 HOURS SCHEDULED (Daily), First dose on Sat03/23/23 at 1000, Until Discontinued, Routine Given 03/29/2023 8:33 AM EDT 40 mg Given 03/28/2023 9:41 AM EDT 40 mg Given 03/27/2023 10:56 AM EDT 40 mg FLUoxetine (PROzac) (4 mg/mL) oral liquid 20 mg 20 mg, Oral, DAILY, First dose on Sat03/19/23 at 0900, Until Discontinued, Routine Given 03/29/2023 8:42 AM EDT 20 mg Given 03/28/2023 9:53 AM EDT 20 mg Given 03/27/2023 10:56 AM EDT 20 mg gadoterate meglumine (Dotarem) (0.5 mMol/mL) injection solution 0-100 mL 0-100 mL, Intravenous, ONCE PRN, 1 dose, Starting on Sat03/24/23 at 1024, Until Sat03/24/23 at 1024, Per Protocol, Radiology Contrast, Routine Given 03/24/2023 10:24 AM EDT 16 mLs glucagon (Glucagen) (1 mg/mL) injection solution 1 mg 1 mg, Intramuscular, EVERY 30 MIN PRN, Starting on Sat03/18/23 at 2146, Until Sat03/29/23 at 1536, Low blood sugar, For BG 50-70 mg/dL: Oral treatment preferred: If able to drink, give 120 mL Juice or Regular (not diet) soda OR If NPO, give 15 gram glucose 40% oral gel massaged into buccal mucosa OR if unconscious or uncooperative, give 25 gram (250 mL) Dextrose 10% IV over 15 minutes per protocol OR, if no IV access, 1 mg Glucagon IM. For BG less than 50 mg/dL: Oral treatment preferred: If able to drink, give 240 mL Juice or Regular (not diet) soda OR If NPO, give 30 gram glucose 40% oral gel massaged in buccal mucosa OR if unconscious or uncooperative, give 25 gram (250 mL) Dextrose 10% IV over 15 minutes per protocol OR, if no IV access, 1 mg Glucagon IM. Recheck BG in 30 minutes. May repeat juice/soda, gel, dextrose or glucagon once per episode. For persistent hypoglycemia, consider longer-acting treatment for the duration of the active insulin., Routine glucose (Glutose) 40% oral geL 15-30 g of glucose, Buccal, EVERY 30 MIN PRN, Starting on Sat03/18/23 at 2146, Until Sat03/29/23 at 1536, Low blood sugar, For BG 50-70 mg/dL: Oral treatment preferred: If able to drink, give 120 mL Juice or Regular (not diet) soda OR If NPO, give 15 gram glucose 40% oral gel massaged into buccal mucosa OR if unconscious or uncooperative, give 25 gram (250 mL) Dextrose 10% IV over 15 minutes per protocol OR, if no IV access, 1 mg Glucagon IM. For BG less than 50 mg/dL: Oral treatment preferred: If able to drink, give 240 mL Juice or Regular (not diet) soda OR If NPO, give 30 gram glucose 40% oral gel massaged in buccal mucosa OR if unconscious or uncooperative, give 25 gram (250 mL) Dextrose 10% IV over 15 minutes per protocol OR, if no IV access, 1 mg Glucagon IM. Recheck BG in 30 minutes. May repeat juice/soda, gel, dextrose or glucagon once per episode. For persistent hypoglycemia, consider longer-acting treatment for the duration of the active insulin. 1 tube of Glutose-15 contains 15 grams of glucose (net weight of tube = 37.5 grams.), Routine HYDROmorphone (Dilaudid) (0.5 mg/0.5 mL) injection syringe 0.2 mg 0.2 mg, Intravenous, EVERY 4 HOURS PRN, Starting on Sat03/19/23 at 2255, Until Sat03/20/23 at 0632, Pain, Routine Given 03/19/2023 11:26 PM EDT 0.2 mg insulin regular (Myxredlin) (1 unit/mL) in sodium chloride 0.9% 100 mL infusion 0-0.1 Units/kg/hr ? 78.9 kg (0-7.89 mL/hr, rounded to 0-7.9 mL/hr), Intravenous, CONTINUOUS, Starting on Sat03/18/23 at 2149, Until Sat03/19/23 at 0324, Initiate insulin infusion at 0.1 units/kg/hr ?? If GLUCOSE level does not decrease by at least 50 mg/dL from the initial value after the first hour: - Administer bolus 0.1 unit/kg & document on Bolus Dose order. - Continue same infusion rate and follow IV fluids titration. ?? GLUCOSE GREATER THAN OR EQUAL TO 150 mg/dL: - Continue same infusion rate and follow IV fluids titration. ?? GLUCOSE 100 - 149 mg/dL: - DECREASE insulin infusion rate by 50% ONLY ONCE if not already done and follow IV fluids titration. - Notify team if continues to be LESS than 100 with the next POC for further adjustments ?? GLUCOSE 70 - 99 mg/dL: - DECREASE insulin infusion rate by 50 % ONLY ONCE if not already done and follow IV fluids titration. ?? - Notify team if continues to be LESS than 100 with the next POC for further adjustments GLUCOSE LESS than 70 mg/dL: - Pause insulin. Treat Hypoglycemia. Recheck blood glucose in 20 minutes. - If glucose is GREATER than 70 mg/dL on Recheck AND anion gap greater than 12, Restart insulin at 50% of prior infusion rate. - Notify team if continues to be LESS than 70 mg/dL with the next POC for further adjustments ?? GLUCOSE level LESS than 200 mg/dL and anion gap is LESS than 12 and/or BHOB LESS than 1 (RESOLUTION OF DKA) - Notify team to consider transition to basal-bolus insulin. - Discontinue insulin drip 2 hours after initiation of long acting insulin., Routine Rate/Dose Change 03/19/2023 2:43 AM EDT 0.05 Units/kg/hr 3.95 mL/hr Rate/Dose Change 03/19/2023 1:22 AM EDT 0.05 Units/kg/hr 3 .95 mL/hr Rate/Dose Change 03/19/2023 12:33 AM EDT 0.05 Units/kg/hr 3.95 mL/hr lactated Ringers 1,000 mL with potassium chloride 20 mEq infusion at 0-250 mL/hr, Intravenous, CONTINUOUS, Starting on Sat03/18/23 at 2247, Until Sat03/19/23 at 0324, There are two IV fluid orders for this patient. The TOTAL RATE for IV fluids combined is 250 mL/hr. If blood glucose is greater than 250: - Infuse LR with KCl 20 mEq/L at full rate of 250 mL/hr. AND - Hold infusion of D10 + LR with KCl 20 mEq/L. If blood glucose is between 150 - 250: - Infuse LR with KCl 20 mEq/L at 125 mL/hr . AND - Infuse D10 + LR with KCl 20 mEq/L at 125 mL/hr. If blood glucose is less than 150: - HOLD infusion of LR with KCl 20 mEq/L. AND - Infuse D10 + LR with KCl 20 mEq/L at full rate of 250 mL/hr. New Bag 03/19/2023 1:23 AM EDT 125 mL/hr 125 mL/hr lactated Ringers 2,000 mL IV bolus Intravenous, ONCE, 1 dose, On Sat03/18/23 at 1615 Bag 03/18/2023 4:59 PM EDT lactated Ringers 500 mL IV bolus at 166.7 mL/hr, Intravenous, ONCE, 1 dose, On Sat03/28/23 at 0815 New Bag 03/28/2023 9:42 AM EDT 166.7 mL/hr lactated ringers infusion 1,000 mL, at 100 mL/hr, Intravenous, CONTINUOUS, Starting on Sat03/19/23 at 0200, Until Sat03/25/23 at 1507 New Bag 03/25/2023 6:50 AM EDT 1,000 mLs 100 mL/hr 03/24/2023 8:53 PM EDT 1,000 mLs 100 mL/hr New 03/24/2023 11:22 AM EDT 1,000 mLs 100 mL/hr lactated ringers infusion 50 mL/hr, Intravenous, CONTINUOUS, Starting on Sat03/25/23 at 1600, Until Sat03/27/23 at 1754 03/27/2023 11:29 AM EDT 50 mL/hr 50 mL/hr New 03/26/2023 5:27 PM EDT 50 mL/hr 50 mL/hr New 03/25/2023 9:18 PM EDT 50 mL/hr 50 mL/hr lamoTRIgine (LaMICtal) tablet 150 mg 150 mg, Oral, 2 TIMES DAILY, First dose on Sat03/19/23 at 0200, Until Discontinued, OK to crush tablet, Routine Given 03/21/2023 8:52 AM EDT 150 mg Given 03/20/2023 9:31 PM EDT 150 mg Given 03/19/2023 9:05 PM EDT 50 mg lamoTRIgine (LaMICtal) tablet 25 mg 25 mg, Oral, 2 TIMES DAILY, First dose (after last modification) on Sat03/21/23 at 2100, Until Discontinued, OK to crush tablet, Routine Given 03/25/2023 8:27 AM EDT 25 mg Given 03/24/2023 8:54 PM EDT 25 mg Given 03/24/2023 8:45 AM EDT 25 mg lidocaine (Xylocaine) 1% (10 mg/mL) injection 3 mg 3 mg (0.3 mL), Subcutaneous, ONCE PRN, 1 dose, Starting on Sat03/19/23 at 0104, Until Sat03/19/23 at 1532, for discomfort with PIV insertion, Routine Given 03/19/2023 3:32 PM EDT 3 mg Left Arm magnesium sulfate 2 g in sterile water 50 mL infusion 2 g, Intravenous, ONCE, 1 dose, On Sat03/19/23 at 1800, Administer over 120 Minutes New Bag 03/19/2023 6:33 PM EDT 2 g 25 mL/hr magnesium sulfate 2 g in sterile water 50 mL infusion 2 g, Intravenous, ONCE, 1 dose, On Sat03/25/23 at 0645, Administer over 120 Minutes New Bag 03/25/2023 6:26 AM EDT 2 g 25 mL/hr meclizine (Antivert) tablet 25 mg 25 mg, Oral, 3 TIMES DAILY PRN, Starting on Sat03/22/23 at 2334, Until Sat03/29/23 at 1536, Dizziness, Nausea, Routine Given 03/26/2023 11:11 AM EDT 25 mg metoclopramide (Reglan) (5 mg/mL) injection 10 mg 10 mg, Intravenous, EVERY 6 HOURS PRN, Starting on Sat03/19/23 at 1155, Until Sat03/29/23 at 1536, Nausea, 2nd line therapy, Doses greater than 10mg should be diluted into 50ml NS. Given 03/20/2023 8:54 AM EDT 10 mg Given 03/19/2023 10:46 PM EDT 10 mg Given 03/19/2023 2:24 PM EDT 10 mg ondansetron (pf) (Zofran) (2 mg/mL) injection 4 mg 4 mg, Intravenous, ONCE, 1 dose, On Sat03/19/23 at 1200, Please give ~1hr before UGI study Given 03/19/2023 11:58 AM EDT 4 mg ondansetron (pf) (Zofran) (2 mg/mL) injection 4-8 mg 4-8 mg, Intravenous, EVERY 8 HOURS PRN, Starting on Sat03/18/23 at 1811, Until Sat03/25/23 at 1622, Nausea, Start with 4mg and if ineffective in 30 minutes, give an additional 4mg If multiple antiemetics are ordered, give ondansetron first. Given 03/24/2023 2:43 PM EDT 4 mg Given 03/22/2023 5:31 PM EDT 4 mg Given 03/20/2023 7:38 AM EDT 4 mg ondansetron (Zofran) tablet 4-8 mg 4-8 mg, Oral, EVERY 8 HOURS PRN, Starting on Sat03/18/23 at 1811, Until Sat03/25/23 at 1622, Nausea, Vomiting, If multiple antiemetics are ordered, use ondansetron first. PO Preferred. If patient unable to take PO, may give IV if ordered. Start with 4mg and if ineffective in 45 minutes, give an additional 4mg. If unable to take PO, may give IV., Routine Given 03/21/2023 3:48 PM EDT 4 mg ondansetron ODT (Zofran-ODT) disintegrating tablet 4 mg 4 mg, Oral, EVERY 8 HOURS SCHEDULED, First dose on Sat03/25/23 at 1715, Until Discontinued, Routine Given 03/29/2023 6:48 AM EDT 4 mg Given 03/28/2023 9:42 PM EDT 4 mg Given 03/28/2023 3:41 PM EDT 4 mg pantoprazole (Protonix) injection 40 mg 40 mg, Intravenous, DAILY, First dose on Sat03/19/23 at 0900, Until Discontinued, Reconstitute with 10 mL of normal saline to a concentration of 4 mg/mL and inject slowly over 2 minutes. Given 03/21/2023 8:53 AM EDT 40 mg Given 03/20/2023 8:45 AM EDT 40 mg Given 03/19/2023 9:05 AM EDT 40 mg pantoprazole (Protonix) injection 40 mg 40 mg, Intravenous, DAILY, First dose (after last modification) on Sat03/22/23 at 0900, Until Discontinued, Reconstitute with 10 mL of normal saline to a concentration of 4 mg/mL and inject slowly over 2 minutes. Given 03/29/2023 8:34 AM EDT 40 mg Given 03/28/2023 9:41 AM EDT 40 mg Given 03/27/2023 10:56 AM EDT 40 mg potassium chloride 10 mEq in sterile water 100 mL infusion 10 mEq, Intravenous, EVERY 2 HOURS, 6 doses, First dose on Sat03/18/23 at 1730, Last dose on Sat03/19/23 at 0330, Administer over 60 Minutes, Warning Vesicant/Irritant Medication New Bag 03/19/2023 3:37 AM EDT 10 mEq 100 mL/hr New Bag 03/19/2023 1:59 AM EDT 10 mEq 60 mL/hr New Bag 03/19/2023 1:15 AM EDT 10 mEq 100 mL/hr potassium chloride 10 mEq in sterile water 100 mL infusion 10 mEq, Intravenous, EVERY HOUR, 6 doses, First dose on Sat03/19/23 at 0600, Last dose on Sat03/19/23 at 1100, Administer over 60 Minutes, For serum K less than 3.3 mMol/L - Give 10 mEq IV x six doses (60 mEq total) Serum potassium levels should be re-checked 1.5 hours after completion of last dose & prior to administration of any additional doses. Warning Vesicant/Irritant Medication New Bag 03/19/2023 11:21 AM EDT 10 mEq 100 mL/hr New Bag 03/19/2023 10:14 AM EDT 10 mEq 100 mL/hr New 03/19/2023 9:00 AM EDT 10 mEq 100 mL/hr potassium chloride 20 mEq in sterile water 100 mL infusion 20 mEq, Intravenous, EVERY 2 HOURS, 2 doses, First dose on Sat03/25/23 at 0745, Last dose on Sat03/25/23 at 0945, Administer over 60 Minutes, Warning Vesicant/Irritant Medication New Bag 03/25/2023 9:59 AM EDT 20 mEq 100 mL/hr New Bag 03/25/2023 8:30 AM EDT 20 mEq 100 mL/hr potassium chloride ER (Klor-Con M) crystal tablet 40 mEq 40 mEq, Oral, ONCE, 1 dose, On Sat03/18/23 at 2036, potassium chloride ER particle/crystal tablets (Klor-Con M) may be broken in half and each half swallowed separately. Tablets can be dissolved in ~4 ounces of water; allow ~2 minutes to dissolve, stir well and drink immediately. Do not crush, chew, or suck on tablet., Routine Given 03/18/2023 10:37 PM EDT 40 mEq potassium chloride ER (Klor-Con M) crystal tablet 40 mEq 40 mEq, Oral, ONCE, 1 dose, On Sat03/22/23 at 0700, 40 mEq tablet may be dissolved in water for administration potassium chloride ER particle/crystal tablets (Klor-Con M) may be broken in half and each half swallowed separately. Tablets can be dissolved in ~4 ounces of water; allow ~2 minutes to dissolve, stir well and drink immediately. Do not crush, chew, or suck on tablet., Routine Given 03/22/2023 7:59 AM EDT 40 mEq potassium phosphate 15 mMol in sodium chloride 0.9% 250 mL infusion 15 mmol, Intravenous, EVERY 4 HOURS, 2 doses, First dose on Sat03/19/23 at 0600, Last dose on Sat03/19/23 at 1000, Administer over 4 Hours, Administer over 4-6 hours New Bag 03/19/2023 9:38 AM EDT 15 mmol 62.5 mL/hr New Bag 03/19/2023 5:50 AM EDT 15 mmol 62.5 mL/hr potassium phosphate 15 mMol in sodium chloride 0.9% 250 mL infusion 15 mmol, Intravenous, EVERY 4 HOURS, 2 doses, First dose (after last reorder) on Sat03/19/23 at 1800, Last dose on Sat03/19/23 at 2200, Administer over 4 Hours, Administer over 4-6 hours New Bag 03/19/2023 10:48 PM EDT 15 mmol 62.5 mL/hr New Bag 03/19/2023 6:33 PM EDT 15 mmol 62.5 mL/hr prochlorperazine (Compazine) (5 mg/mL) injection 10 mg 10 mg, Intravenous, EVERY 6 HOURS PRN, Starting on Sat03/20/23 at 1857, Until Sat03/29/23 at 1536, Nausea, Vomiting, Routine Given 03/28/2023 11:35 PM EDT 10 mg Given 03/22/2023 6:27 AM EDT 10 mg Given 03/21/2023 8:59 AM EDT 10 mg propranoloL (Inderal) tablet 20 mg 20 mg, Oral, 2 TIMES DAILY, First dose on Sat03/19/23 at 0200, Until Discontinued, OK to crush tablet, Routine Given 03/29/2023 8:34 AM EDT 20 mg Given 03/28/2023 9:42 PM EDT 20 mg Given 03/28/2023 9:41 AM EDT 20 mg scopolamine (Transderm-Scop) 1 mg over 3 days patch 1 patch 1 patch, Transdermal, Administer over 72 Hours, EVERY 72 HOURS, First dose on Sat03/19/23 at 0845, Until Discontinued, Routine Patch Applied 03/19/2023 9:16 AM EDT 1 patch 01- Ear Behind (Left) sodium chloride 0.9 % (flush) (BD PosiFlush Normal Saline 0.9) flush 5 mL 5 mL, Intravenous, 2 TIMES DAILY, First dose on Sat03/19/23 at 0200, Until Discontinued, Routine Given 03/29/2023 9:00 AM EDT 5 mLs Given 03/28/2023 9:44 PM EDT 10 mLs Given 03/28/2023 9:42 AM EDT 5 mLs sucralfate (Carafate) tablet 1 g 1 g, Oral, 4 TIMES DAILY BEFORE MEALS & NIGHTLY, First dose on Sat03/19/23 at 0730, Until Discontinued, OK to crush tablet, Routine Given 03/29/2023 6:48 AM EDT 1 g Given 03/28/2023 11:32 PM EDT 1 g Given 03/28/2023 5:42 PM EDT 1 g thiamine (B-1) 500 mg in sodium chloride 0.9% 55 mL infusion 500 mg, Intravenous, DAILY, First dose on Sat03/22/23 at 1315, Until Discontinued, Administer over 30 Minutes, Doses of 100 mg are to be administered as IV push over 5 minutes. Doses of 200 mg or more should be mixed in 50 mL 0.9% Sodium Chloride and infused over 30 minutes. New Bag 03/22/2023 1:36 PM EDT 500 mg 110 mL/hr thiamine (B-1) 500 mg in sodium chloride 0.9% 55 mL infusion 500 mg, Intravenous, 3 TIMES DAILY, First dose (after last modification) on Sat03/22/23 at 2100, Until Discontinued, Administer over 30 Minutes, Doses of 100 mg are to be administered as IV push over 5 minutes. Doses of 200 mg or more should be mixed in 50 mL 0.9% Sodium Chloride and infused over 30 minutes. New Bag 03/25/2023 3:00 PM EDT 500 mg 110 mL /hr New Bag 03/25/2023 8:28 AM EDT 500 mg 110 mL/hr New Bag 03/24/2023 8:54 PM EDT 500 mg 110 mL/hr thiamine (Vitamin B-1) (100 mg/mL) injection 100 mg 100 mg, Intravenous, DAILY, 1 dose, First dose on Sat03/21/23 at 2030, Doses of 100 mg are to be administered as IV push over 5 minutes. Doses of 200 mg or more should be mixed in 50 mL 0.9% Sodium Chloride and infused over 30 minutes. Given 03/21/2023 9:19 PM EDT 100 mg thiamine (Vitamin B1) tablet 100 mg 100 mg, Oral, DAILY, First dose on Sat03/26/23 at 0900, Until Discontinued, Routine Given 03/29/2023 8:34 AM EDT 100 mg Given 03/28/2023 9:42 AM EDT 100 mg Given 03/27/2023 10:57 AM EDT 100 mg documented in this encounter Active and Recently Administered Medications Times are shown in EDT. Scheduled Medication Order 03/27/2023 03/28/2023 03/29/2023 docusate sodium (Colace) capsule 100 mg 100 mg, Oral, 2 TIMES DAILY, First dose on Sat03/19/23 at 1115, Until Discontinued, Routine 1056 (Given - Provider: Brittani Pittman RN)2112 (Given - Provider: Jessica Nguyễn RN) 0940 (Not Given - Provider: Elva Ronquillo LPN - Reason: Patient/family refused)2141 (Given - Provider: Cl Goodman RN) 0833 (Not Given - Provider: Janneth Gomez LPN - Reason: Patient/family refused) enoxaparin (Lovenox) (40 mg/0.4 mL) subcutaneous injection 40 mg 40 mg, Subcutaneous, EVERY 24 HOURS SCHEDULED (Daily), First dose on Sat03/23/23 at 1000, Until Discontinued, Routine 1056 (Given - Provider: Brittani Pittman RN) 0941 (Given - Provider: Elva Ronquillo LPN) 0833 (Given - Provider: Janneth Gomez LPN) FLUoxetine (PROzac) (4 mg/mL) oral liquid 20 mg 20 mg, Oral, DAILY, First dose on Sat03/19/23 at 0900, Until Discontinued, Routine 1056 (Given - Provider: Brittani Pittman RN) 0953 (Given - Provider: Elva Ronquillo LPN) 0842 (Given - Provider: Janneth Gomez LPN) lactated Ringers 500 mL IV bolus (COMPLETED) at 166.7 mL/hr, Intravenous, ONCE, 1 dose, On Char 03/28/23 at 0815 0942 (New Bag - Provider: Elva Ronquillo LPN)1242 (Stopped - Provider: Elva Ronquillo LPN) ondansetron ODT (Zofran-ODT) disintegrating tablet 4 mg 4 mg, Oral, EVERY 8 HOURS SCHEDULED, First dose on Sat03/25/23 at 1715, Until Discontinued, Routine 0629 (Given - Provider: Jayshree Cerna RN)1348 (Given - Provider: Trinidad Chaves RN)2114 (Given - Provider: Jessica Nguyễn RN) 0628 (Given - Provider: Jessica Nguyễn RN)1541 (Given - Provider: Danni Duran LPN - Comment: pt off floor)2142 (Given - Provider: Cl Goodman, MIKE) 0648 (Given - Provider: Cl Goodman, MIKE) pantoprazole (Protonix) injection 40 mg 40 mg, Intravenous, DAILY, First dose (after last modification) on Sat03/22/23 at 0900, Until Discontinued, Reconstitute with 10 mL of normal saline to a concentration of 4 mg/mL and inject slowly over 2 minutes. 1056 (Given - Provider: Brittani Pittman RN) 0941 (Given - Provider: Elva Ronquillo LPN) 0834 (Given - Provider: Janneth Gomez LPN) propranoloL (Inderal) tablet 20 mg 20 mg, Oral, 2 TIMES DAILY, First dose on Sat03/19/23 at 0200, Until Discontinued, OK to crush tablet, Routine 1056 (Given - Provider: Brittani Pittman RN)211 (Given - Provider: Jessica Nguyễn RN) 0941 (Given - Provider: Elva Ronquillo LPN)214 (Given - Provider: Cl Goodman RN) 0834 (Given - Provider: Janneth Gomez LPN) sodium chloride 0.9 % (flush) (BD PosiFlush Normal Saline 0.9) flush 5 mL 5 mL, Intravenous, 2 TIMES DAILY, First dose on Sat03/19/23 at 0200, Until Discontinued, Routine 1100 (Given - Provider: Brittani Pittman RN)2114 (Given - Provider: Jessica Nguyễn RN) 0942 (Given - Provider: Elva Ronquillo LPN)214 (Given - Provider: Cl Goodman RN) 0900 (Given - Provider: Janneth Gomez LPN) sucralfate (Carafate) tablet 1 g 1 g, Oral, 4 TIMES DAILY BEFORE MEALS & NIGHTLY, First dose on Sat03/19/23 at 0730, Until Discontinued, OK to crush tablet, Routine 0730 (Not Given - Provider: Brittani Pittman RN - Reason: See comment)1056 (Given - Provider: Brittani Pittman RN)1731 (Given - Provider: Trinidad Chaves RN)1807 (Given - Provider: Maria L Jimenes LPN)211 (Given - Provider: Jessica Nguyễn, MIKE) 0627 (Given - Provider: Jessica Nguyễn, MIKE)0730 (Canceled Entry - Provider: Jessica Nguyễn RN - Reason: See comment - Comment: given previously)1130 (Not Given - Provider: Elva Ronquillo LPN - Reason: Transfer to a Procedural area)1742 (Given - Provider: Elva Ronquillo LPN)2332 (Given - Provider: Cl Goodman RN - Comment: re-scheduled to prevent med interraction) 0648 (Given - Provider: Cl Goodman RN)1130 (Due) thiamine (Vitamin B1) tablet 100 mg 100 mg, Oral, DAILY, First dose on Sat03/26/23 at 0900, Until Discontinued, Routine 1057 (Given - Provider: Brittani Pittman RN) 0942 (Given - Provider: Elva Ronquillo LPN) 0834 (Given - Provider: Janneth Gomez LPN) Continuous Medication Order 03/27/2023 03/28/2023 03/29/2023 lactated ringers infusion (CANCELED) 50 mL/hr, Intravenous, CONTINUOUS, Starting on Sat03/25/23 at 1600, Until Sat03/27/23 at 1754 1129 (New Bag - Provider: Brittani Pittman RN)1754 (Stopped - Provider: Maria L Jimenes LPN) PRN Medication Order 03/27/2023 03/28/2023 03/29/2023 acetaminophen (Tylenol) (32.02 mg/mL) oral liquid 650 mg 650 mg, Oral, EVERY 6 HOURS PRN, Starting on Sat03/20/23 at 0700, Until Sat03/29/23 at 1536, Fever, Maximum dose of acetaminophen is 4,000 mg from all sources in 24 hours. When ordered for pain, acetaminophen should be given even when other ordered pain medications are indicated. , Routine 1348 (Given - Provider: Trinidad Chaves RN) albuteroL (Proventil, Ventolin) (2.5 mg/3 mL) (0.083 %) nebulizer solution 2.5 mg 2.5 mg, Nebulization, EVERY 6 HOURS PRN, Starting on Sat03/19/23 at 0104, Until Sat03/29/23 at 1536, Wheezing, Routine cyclobenzaprine (Flexeril) tablet 5 mg 5 mg, Oral, 3 TIMES DAILY PRN, Starting on Sat03/19/23 at 0104, Until Sat03/29/23 at 1536, Muscle spasms, Routine dextrose 10% infusion(Linked Group 1) 250 mL, at 1,000 mL/hr, Intravenous, EVERY 30 MIN PRN, Starting on Sat03/18/23 at 2146, Until Sat03/29/23 at 1536, For BG 50-70 mg/dL: Oral treatment preferred: If able to drink, give 120 mL Juice or Regular (not diet) soda OR If NPO, give 15 gram glucose 40% oral gel massaged into buccal mucosa OR if unconscious or uncooperative, give 25 gram (250 mL) Dextrose 10% IV over 15 minutes per protocol OR, if no IV access, 1 mg Glucagon IM. For BG less than 50 mg/dL: Oral treatment preferred: If able to drink, give 240 mL Juice or Regular (not diet) soda OR If NPO, give 30 gram glucose 40% oral gel massaged in buccal mucosa OR if unconscious or uncooperative, give 25 gram (250 mL) Dextrose 10% IV over 15 minutes per protocol OR, if no IV access, 1 mg Glucagon IM. Recheck BG in 30 minutes. May repeat juice/soda, gel, dextrose or glucagon once per episode. For persistent hypoglycemia, consider longer-acting treatment for the duration of the active insulin. glucagon (Glucagen) (1 mg/mL) injection solution 1 mg(Linked Group 1) 1 mg, Intramuscular, EVERY 30 MIN PRN, Starting on Sat03/18/23 at 2146, Until Sat03/29/23 at 1536, Low blood sugar, For BG 50-70 mg/dL: Oral treatment preferred: If able to drink, give 120 mL Juice or Regular (not diet) soda OR If NPO, give 15 gram glucose 40% oral gel massaged into buccal mucosa OR if unconscious or uncooperative, give 25 gram (250 mL) Dextrose 10% IV over 15 minutes per protocol OR, if no IV access, 1 mg Glucagon IM. For BG less than 50 mg/dL: Oral treatment preferred: If able to drink, give 240 mL Juice or Regular (not diet) soda OR If NPO, give 30 gram glucose 40% oral gel massaged in buccal mucosa OR if unconscious or uncooperative, give 25 gram (250 mL) Dextrose 10% IV over 15 minutes per protocol OR, if no IV access, 1 mg Glucagon IM. Recheck BG in 30 minutes. May repeat juice/soda, gel, dextrose or glucagon once per episode. For persistent hypoglycemia, consider longer-acting treatment for the duration of the active insulin., Routine glucose (Glutose) 40% oral geL(Linked Group 1) 15-30 g of glucose, Buccal, EVERY 30 MIN PRN, Starting on Sat03/18/23 at 2146, Until Sat03/29/23 at 1536, Low blood sugar, For BG 50-70 mg/dL: Oral treatment preferred: If able to drink, give 120 mL Juice or Regular (not diet) soda OR If NPO, give 15 gram glucose 40% oral gel massaged into buccal mucosa OR if unconscious or uncooperative, give 25 gram (250 mL) Dextrose 10% IV over 15 minutes per protocol OR, if no IV access, 1 mg Glucagon IM. For BG less than 50 mg/dL: Oral treatment preferred: If able to drink, give 240 mL Juice or Regular (not diet) soda OR If NPO, give 30 gram glucose 40% oral gel massaged in buccal mucosa OR if unconscious or uncooperative, give 25 gram (250 mL) Dextrose 10% IV over 15 minutes per protocol OR, if no IV access, 1 mg Glucagon IM. Recheck BG in 30 minutes. May repeat juice/soda, gel, dextrose or glucagon once per episode. For persistent hypoglycemia, consider longer-acting treatment for the duration of the active insulin. 1 tube of Glutose-15 contains 15 grams of glucose (net weight of tube = 37.5 grams.), Routine meclizine (Antivert) tablet 25 mg 25 mg, Oral, 3 TIMES DAILY PRN, Starting on Sat03/22/23 at 2334, Until Sat03/29/23 at 1536, Dizziness, Nausea, Routine metoclopramide (Reglan) (5 mg/mL) injection 10 mg 10 mg, Intravenous, EVERY 6 HOURS PRN, Starting on Sat03/19/23 at 1155, Until Sat03/29/23 at 1536, Nausea, 2nd line therapy, Doses greater than 10mg should be diluted into 50ml NS. prochlorperazine (Compazine) (5 mg/mL) injection 10 mg 10 mg, Intravenous, EVERY 6 HOURS PRN, Starting on Sat03/20/23 at 1857, Until Sat03/29/23 at 1536, Nausea, Vomiting, Routine 2335 (Given - Provider: Shahatra L Rex, RN) sodium chloride 0.9 % (flush) (BD PosiFlush Normal Saline 0.9) flush 5-20 mL 5-20 mL, Intravenous, EVERY 1 MIN PRN, Starting on Sat03/19/23 at 0104, Until Sat03/29/23 at 1536, flush, Flush pertains to all indwelling lines. Flush per protocol found in the job aid using the link provided on this medication record., Routine Linked Groups Order Group 1: glucose (Glutose) 40% oral geLJump to med 15-30 g of glucose, Buccal, EVERY 30 MIN PRN, Starting on Sat03/18/23 at 2146, Until Sat03/29/23 at 1536, Low blood sugar, For BG 50-70 mg/dL: Oral treatment preferred: If able to drink, give 120 mL Juice or Regular (not diet) soda OR If NPO, give 15 gram glucose 40% oral gel massaged into buccal mucosa OR if unconscious or uncooperative, give 25 gram (250 mL) Dextrose 10% IV over 15 minutes per protocol OR, if no IV access, 1 mg Glucagon IM. For BG less than 50 mg/dL: Oral treatment preferred: If able to drink, give 240 mL Juice or Regular (not diet) soda OR If NPO, give 30 gram glucose 40% oral gel massaged in buccal mucosa OR if unconscious or uncooperative, give 25 gram (250 mL) Dextrose 10% IV over 15 minutes per protocol OR, if no IV access, 1 mg Glucagon IM. Recheck BG in 30 minutes. May repeat juice/soda, gel, dextrose or glucagon once per episode. For persistent hypoglycemia, consider longer-acting treatment for the duration of the active insulin. 1 tube of Glutose-15 contains 15 grams of glucose (net weight of tube = 37.5 grams.), Routine Or dextrose 10% infusionJump to med 250 mL, at 1,000 mL/hr, Intravenous, EVERY 30 MIN PRN, Starting on Sat03/18/23 at 2146, Until Sat03/29/23 at 1536, For BG 50-70 mg/dL: Oral treatment preferred: If able to drink, give 120 mL Juice or Regular (not diet) soda OR If NPO, give 15 gram glucose 40% oral gel massaged into buccal mucosa OR if unconscious or uncooperative, give 25 gram (250 mL) Dextrose 10% IV over 15 minutes per protocol OR, if no IV access, 1 mg Glucagon IM. For BG less than 50 mg/dL: Oral treatment preferred: If able to drink, give 240 mL Juice or Regular (not diet) soda OR If NPO, give 30 gram glucose 40% oral gel massaged in buccal mucosa OR if unconscious or uncooperative, give 25 gram (250 mL) Dextrose 10% IV over 15 minutes per protocol OR, if no IV access, 1 mg Glucagon IM. Recheck BG in 30 minutes. May repeat juice/soda, gel, dextrose or glucagon once per episode. For persistent hypoglycemia, consider longer-acting treatment for the duration of the active insulin. Or glucagon (Glucagen) (1 mg/mL) injection solution 1 mgJump to med 1 mg, Intramuscular, EVERY 30 MIN PRN, Starting on Sat03/18/23 at 2146, Until Sat03/29/23 at 1536, Low blood sugar, For BG 50-70 mg/dL: Oral treatment preferred: If able to drink, give 120 mL Juice or Regular (not diet) soda OR If NPO, give 15 gram glucose 40% oral gel massaged into buccal mucosa OR if unconscious or uncooperative, give 25 gram (250 mL) Dextrose 10% IV over 15 minutes per protocol OR, if no IV access, 1 mg Glucagon IM. For BG less than 50 mg/dL: Oral treatment preferred: If able to drink, give 240 mL Juice or Regular (not diet) soda OR If NPO, give 30 gram glucose 40% oral gel massaged in buccal mucosa OR if unconscious or uncooperative, give 25 gram (250 mL) Dextrose 10% IV over 15 minutes per protocol OR, if no IV access, 1 mg Glucagon IM. Recheck BG in 30 minutes. May repeat juice/soda, gel, dextrose or glucagon once per episode. For persistent hypoglycemia, consider longer-acting treatment for the duration of the active insulin., Routine documented in this encounter Care Teams Cna Ltc Relationship Specialty Start Date End Date Sree High APRN [address] [place] [address] PCP - General Family Medicine 12/19/22 documented as of this encounter
--- OUTSIDE RECORDS SUMMARY | 2024-06-01 06:54 | XMS_ITS | Encounter Summary ---
Author Organization [facility] Address [facility] [place] [address] Care Team Providers Care Law Clerk Name Role Phone Sree High APRN Primary Care Provider [phone] Encounter Details Date Type Department Care Team (Late st Contact Info) Description 03/28/2023 [place] [address] Lizbeth Pan MD [facility] [place] [address] Social History Tobacco Use Types Packs/Day Years Used Date Smoking Tobacco: Never Smokeless Tobacco: Never Alcohol Use Standard Drinks/Week Comments Not Currently 0 (1 standard drink = 0.6 oz pur e alcohol) [facility] Inpatient Questions Answer Date [...] psychologist to 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 Patient will review and try implementing some behaviors before we meet again. movement Lifestyle On track(2021 10:29 AM EST) Jill Colmenares, OTOLARYNGOLOGY PHYSICIAN Note: Exercise goal is 150 min a [...] on filedocumented in this encounter Care Teams Law Clerk Relationship Specialty Start Date End Date Sree High APRN [address] [place] [address] [address] [place] [address] PCP - General Family Medicine 12/19/22 documented as of this encounter
--- OUTSIDE RECORDS SUMMARY | 2024-06-01 06:55 | XMS_ITS | Encounter Summary ---
Author Organization [facility] [place] [address] Care Team Providers Care Senior Telecommunications Technician Name Role Phone Sree High APRN Primary Care Provider [phone] Reason for Visit * Reason Comments Emesis Dehydration * Auth/Cert (Routine) Specialty Diagnoses / Procedures Referred By Contac t Referred To Contact Diagnoses Abdominal pain Procedures ER IPI Iram Borrero MD [facility] [place] [address] [facility] Referral ID Status Reason Start Date Expiration Date Visits Re quested Visits Authorized [id number] 1 1 Encounter Details Date Type Department Care Team ([facility] Contact Info) Description 03/22/2023 7:45 PM EDT - 03/22/2023 11:30 PM EDT Surgery [place] [address] Iram Borrero MD [facility] [place] [address] LAPAROSCOPY, DIAGNOSTIC, ABDOMEN (WRVU 5.14) Social History Tobacco Use Types Packs/Day Years Used Date Smoking Tobacco: Never Smokeless Tobacco: Never Alcohol Use Standard Drinks/Week Comments Not Currently 0 (1 standard drink = 0.6 oz pur e alcohol) [facility] Inpatient Questions Answer Date Recorded [...] Sign Reading Time Taken Comments Blood Pressure 109/73 03/22/2023 11:00 PM EDT Pulse 73 03/22/2023 11:00 PM EDT Temperature 36.3 ??C (97.3 ??F) 03/22/2023 10:00 PM E DT Respiratory Rate 11 03/22/2023 11:00 PM EDT Oxygen Saturation 97% 03/22/2023 11:00 PM EDT Inhaled Oxygen Concentration - - [...] with possibility of toxicity causing symptoms. Clinical medical insurance clerk was consulted who recommended completely stopping Lamictal. [...] %-100 %] Pertinent Lab Data: Recent Labs 03/27/23349 WBC 7.1 HGB 10.9* HCT 31.5* PLATELET 297 Recent Labs 03/27/23349 NA 141 K 3.5 CL 105 CO2 [...] who have questions please contact the health critical care registered nurse that requested your imagingfirst. Brain wwo Contrast (Generic) Result Date: 03/24/2023 EXAMINATION: MRI BRAIN WWO CONTRAST (GENERIC), MRI ORBIT WWO CONTRAST CLINICAL HISTORY: Dizziness, non-specific dizziness, diplopia, rule out stroke? (accession [id number]), right eye weakness, diplopia, concern for possible inferior rectus infiltration or inflamation vs. possible optic neuritis (acce ssion [id number]). Right-sided weakness, diplopia, concerning for possible inferior [...] who have questions please contact the health critical care registered nurse that requested your imaging first. Cholangiopancreatography WO Contrast Result Date: 03/20/2023 EXAMINATION: [...] visceral organs, gastrointestinal tract, and vascular structures. Metal Coater Images: Noncontributory. Inferior thorax: Visualized structures within [...] who have questions please contact the health critical care registered nurse that requested your imaging first. Film Library- Storage Only CT Abdomen & [...] non-specific dizziness, diplopia, rule out stroke? (accession [id number]), right eye weakness, diplopia, concern for possible inferior rectus infiltration or inflamation vs. possible optic neuritis (acce ssion [id number]). Right-sided weakness, diplopia, concerning for possible inferior [...] who have questions please contact the health critical care registered nurse that requested your imaging first. DOC: TELEMETRY STRIPS Result Date: 03/22/2023 Ordered by an unspecified provider. XR Fluoro Barium Swallow (Double Contrast) Result Date: 03/19/2023 EXAMINATION: XR FLUORO BARIUM SWALLOW (DOUBLE CONTRAST) CLINICAL HISTORY: s/p RNY gastric bypass with PO intolerance please eval for dysmotility TECHNIQUE: Double contrast esophagram was performed. Fluoroscopic spot films were obtained. Fluoro time: 0.67 minutes COMPARISON: Outside CT of the pelvisApr2022 FINDINGS: Examination limited because patient tolerated only [...] who have questions please contact the health critical care registered nurse that requested your imaging first. OR Endoscopy Result Date: 03/22/2023 Photographs - [...] Loli Valerio, PhD Weight and Wellness at [facility] Arrive at: Home [phone] To view instructions for your video visit, click here, or visit this website: [email or web address] If you have not previously downloaded the [employer] patient portal software, [employer], or the M[employer] mar[employer] a, please do so by clicking [...] RD; Anni Varela APRN General Surgery at [facility] Arrive at: Boat Hoist Operator Helper Area 4L [phone] Future Orders Complete By Expires Referral to [...] home with her at all times. Called [facility] in [place], [place], where she lives. There is vestibular [...] Instructions ??? You have a referral to [facility] Ear, Nose and Throat clinic for further evaluation of dizziness. They will call you to scheduled an appointment. ??? A referral has been faxed to [facility] in [place]. [place] for vestibular physical therapy. If you do not hear from them in one week, please call the hospital to follow up on that referral. o Their phone number is . Call Doctor for: ??? Persistent nausea or vomiting ??? Any fevers greater than 101.3 F For questions or concerns during business hours please call the Surgery Clinic at [phone] before 5 PM on weekdays. For questions after hours and on weekends please call the hospital pug machine operator at [phone] and ask for the General Surgery resident interventional cardiologist. They may not be familiar with your [...] try a Dulcolax suppository. Follow-up: Please call [phone] (clinic number for appointments) to confirm or change the date and time of your appointment. Future Appointments Date Time Provider Department Center 04/02/2023 9:00 AM Loli Valerio, PhD [facility] WEIGHT [facility] 04/26/2023 2:00 PM Anni Varela APRN [facility] SURG [facility] General Instructions None Future Appointments and Orders Future Appointments and Orders Future Appointments Provider Department Dept Phone 04/02/2023 9:00 AM Loli Valerio, PhD Weight and Wellness at [facility] Arrive at: Home [phone] To view instructions for your video visit, click here, or visit this website: [email or web address] If you have not previously downloaded the [employer] patient portal software, [employer]CHICA, or the M[employer] mar[employer] a, please do so by clicking [...] the link again 04/26/2023 2:00 PM Blaire Chowdhury, CHANG; Anni Varela APRN General Surgery at [facility] Arrive at: Boat Hoist Operator Helper Area 4L [phone] Future Orders Complete By Expires Referral to [...] home with her at all times. Called [facility] in [place], [place], where she lives. There is vestibular [...] Surgery Fellow, PGY-6 03/29/23 12:24 PM MISpager [phone] Primary [place] Physician: Sree High, BRYANNA [address] [address] documented in this encounter Discharge Instructions * Patient Instructions* Joan Solorzano PA - 03/29/2023 8:17 AM EDT Discharge Instructions You have a referral to [facility] Ear, Nose and Throat clinic for further evaluation of dizziness. They will call you to scheduled an appointment. A referral has been faxed to [facility] in [facility] for vestibular physical therapy.If you do not hear from them in one week, please call the hospital to follow up on that referral. Their phone number is . Call Doctor for: Persistent nausea or vomiting Any fevers greater than 101.3 F For questions or concerns during business hours please call the Surgery Clinic at [phone] before 5 PM on weekdays. For questions after hours and on weekends please call the hospital pug machine operator at [phone] and ask for the General Surgery resident interventional cardiologist. They may not be familiar with your [...] try a Dulcolax suppository. Follow-up: Please call [phone] (clinic number for appointments) to confirm or change the date and time of your appointment. Future Appointments Date Time Provider Department Center 04/02/2023 9:00 AM Loli Valerio, PhD [facility] WEIGHT [facility] 04/26/2023 2:00 PM Anni Varela APRN [facility] SURG [facility] documented in this encounter Medications at Time [...] as of this encounter Progress Notes * Janneth Gomez LPN - 03/29/2023 12:06 PM EDT Pt discharged to home. IV removed, site benign. assessment consultant remains unchanged from previous assessment. Pt management discussed, pain tolerable. Pt has all belongings and supplies needed. Pt received After Visit Summary and prescriptions, reviewed and patient verbalizes understanding of AVS. All q uestions answered. Pt encouraged to call with questions or concerns. Pt dc'ed to home with family. Pt expressed thanks for care received by this newswriter and [facility] staff during hospitalization. * Cl Goodman RN - 03/29/2023 7:41 AM EDT Illness Severity [x] Stable [] Watcher [] Unstable Patient Summary Reason for admission: FTT abd pain/dysphagia Relevant PMH: CASSIDY BROWN Significant 24 hour events: admit from ED 03/28 PM: NAEON. Pain and nausea well-controlled. Double [...] home with her at all times. Called [facility] in [place], [place], where she lives. There is vestibular [...] using a a front wheeled walker. MET / with OT 4. Pt. to ambulate up/down [...] TEF ANIYA MARIA L CRAWFORD PT Pager: [phone] Physical Therapy Inpatient Rehabilitation Department * Dick [...] of cessation. She was seen by clinical medical insurance clerk with recommendation to stop Lamicatal altogether. At [...] Bariatric Surgery 12:06 PM 03/28/23 Service pager: [phone] Associated attestation - Iram Borrero MD - [...] on when OOB Surveillance [continuous indirect monitoring]: Maantoineo * Trinidad Chaves RN - 03/27/2023 6:55 PM EDT OUTCOME EVALUATION NOTE: OUTCOME SUMMARY: Patient AOx4, VSS on RA. Denies nausea/vomiting, CP, SOB. Pain controlled w/ scheduled and PRN medications, see JAN. 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 Patient voiding to BSC w/ SBA. LBM WEB DESIGNER DEVELOPER. Patient sleeping in between care. PLAN MOVING FORWARD: Pain management Psych consult Mobilize D/C planning INDIVIDUALIZED FALL PREVENTION INTERVENTIONS: Patient-specific fall risk factors per assessment: [current deficits]: Pain, hospital environment Assistance [level of assistance required for transfers and ambulation]: SBA Supervision [direct monitoring required during toileting and ADLs]: Eyes on Surveillance [continuous indirect monitoring]: Alaina * Pito Baltazar, OT - 03/27/2023 1:55 [...] 29.4) performed by Iram Borrero MD at [facility] OR ??? PRO UPPER GI ENDOSCOPY, DIAGNOSTIC N/A 01/10/2023 ?? EGD, UPPER GI ENDOSCOPY performed by Iram Borrero MD at [facility] OR ??? PRO UPPER GI ENDOSCOPY, DIAGNOSTIC N/A 03/05/2023 ?? EGD, UPPER GI ENDOSCOPY (WRVU 2.09) performed by Iram Borrero MD at [facility] OR ?? Active Non-Hospital Problems ?? [...] determined Anticipated Discharge Disposition: swing bed rehabilitation facility Daily schedule / Staff Recommendations: [...] Occupational Therapy: 33 (SCHM X1 TAF X1 (3796-6270)) Pager: [phone] Pito Baltazar, KO 03/27/2023 Occupational Therapy Rehabilitation Department * Herman Viramontes, WEB DESIGNER DEVELOPER - 03/27/2023 10:20 AM EDT Physical Therapy [...] TE-F x 2 HERMAN VIRAMONTES PTA Pager: [phone] Physical Therapy Inpatient Rehabilitation Department * Joan [...] into home apartment ?? Seen by clinical medical insurance clerk yesterday w/ recommendation to stop Lamictal altogether [...] of cessation. She was seen by clinical medical insurance clerk yesterday with recommendation to stop Lamicatal altogether. [...] Bariatric Surgery 9:10 AM 03/27/23 Service pager: [phone] Associated attestation - Iram Borrero MD - [...] Patient voiding to BSC w/ SBA. 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 Patient sleeping in between care. PLAN MOVING FORWARD: Pain management Psych consult Mobilize D/C planning INDIVIDUALIZED FALL PREVENTION INTERVENTIONS: Patient-specific fall risk factors per assessment: [current deficits]: Pain, hospital environment Assistance [level of assistance required for transfers and ambulation]: SBA Supervision [direct monitoring required during toileting and ADLs]: Eyes on Surveillance [continuous indirect monitoring]: Alaina * Lisbeth Roca RN - 03/26/2023 5:51 [...] at Bedside, Bed Alarm Set * Fior Ryan, RD - 03/26/2023 3:52 PM EDT Nutrition [...] BILIDIR 0.4 (H) 03/20/2023 CRP 4.5 03/26/2023 [id number] 139 12/18/2022 [id number] 612 03/21/2023 25OHVITD 34 03/26/2023 SFOLATE 4.0 [...] of this encounter: 78.5 kg (173 lb). [place] Body Weight (IBW) (kg): 54.55 Usual Body [...] malnutrition in the setting of chronic illness (Agnes et al, JPEN J Parenteral Enteral Nutr. 2011; 36(3): [...] 29.4) performed by Iram Borrero MD at [facility] OR ??? PRO UPPER GI ENDOSCOPY, DIAGNOSTIC N/A 01/10/2023 ?? EGD, UPPER GI ENDOSCOPY performed by Iram Borrero MD at [facility] OR ??? PRO UPPER GI ENDOSCOPY, DIAGNOSTIC N/A 03/05/2023 ?? EGD, UPPER GI ENDOSCOPY (WRVU 2.09) performed by Iram Borrero MD at [facility] OR ?? Active Non-Hospital Problems ?? [...] Occupational Therapy: 45 (SCHM X1 TAF X2 (7546-1936)) Pager: [phone] Pito Baltazar, OT 03/26/2023 Occupational Therapy Rehabilitation [...] Flexor digitorum profundus Digit II-V flexion / photo technologist 5 5 L2-3 Iliopsoas Hip flexion 5 [...] who have questions please contact the health critical care registered nurse that requested your imaging first. Cholangiopancreatography WO Contrast (Exam End: 03/19/2023 5:40 [...] who have questions please contact the health critical care registered nurse that requested your imaging first. Head wo Contrast (Generic) (Exam End: 03/21/2023 12:34 PM) Impression Normal brain CT. Thank you for letting us participate in the care of this patient. If you are a health care provider and have any questions regarding this report, please contact the number below. For patients who have questions please contact the health critical care registered nurse that requested your imaging first. Orbit wwo Contrast (Exam End: 03/24/2023 11:16 AM) Impression 1. Normal brain. 2. Normal orbits. Thank you for letting us participate in the care of this patient. If you are a health care provider and have any questions regarding this report, please contact the number below. For patients who have questions please contact the health critical care registered nurse that requested your imaging first. Brain wwo Contrast (Generic) (Exam End: 03/24/2023 11:16 AM) Impression 1. Normal brain. 2. Normal orbits. Thank you for letting us participate in the care of this patient. If you are a health care provider and have any questions regarding this report, please contact the number below. For patients who have questions please contact the health critical care registered nurse that requested your imaging first. Orthostatics blood pressure measurements: Lying 102/61 (75), [...] management). ?? Continue high-dose thiamine. Neurology Consult #[id number] Caron Conde MD Neurology PGY3 03/26/2023 Associated attestation - Darinel Flores MD - 04/05/2023 8:38 AM EDT Neurology Attending Note Darinel Flores MD PhD (pager [phone]) I have seen and examined Leandra Wilks [...] 100 % SpO2: [96 %-100 %] 03/25 0701 - 03/26 0700 In: 2960 [P.O.:580; I.V.:2105] [...] 291 268 Recent Labs 03/26/23 0400 03/25/23 03303/24/23 0551 03/24/23 0351 NA 140 138 -- [...] Bariatric Surgery 11:56 AM 03/26/23 Service pager: [phone] Continue holding lamictal per discussion with Dr. [...] timing of restarting lamictal. Recommended discussionwith clinical medical insurance clerk to determine if continued holding of medication would be of benefit. Would not recommend any more invasive evaluation at this time. If symptoms persist, could consider ENT evaluation but does not require continued inpatient treatment/observation. Discussed non-urgent case with clinical medical insurance clerk who will evaluate patient. Lamictal level ordered. Continue supportive care. Dispo: acute rehab recommended by PT at this time, pending placement Natalee Winn MD 03/26/23 1:35 PM MISpager [phone] * Candelaria Fish RN - 03/26/2023 4:42 [...] 18.46) performed by Iram Borrero MD at [facility] OR ??? PRO LAP GASTRIC BYPASS/RENATO-EN-Y N/A 01/10/2023 @LAPAROSCOPIC GASTROPLASTY W/ RENATO-EN-Y CONSTRUCTION (WRVU 29.4) performed by [facility]at [facility] OR ??? PRO LAP, DIAGNOSTIC ABDOMEN N/A 03/22/2023 LAPAROSCOPY, DIAGNOSTIC, ABDOMEN (WRVU 5.14) performed by Iram Borrero MD at [facility] OR ??? PRO UPPER GI ENDOSCOPY, DIAGNOSTIC N/A 01/10/2023 EGD, UPPER GI ENDOSCOPY performed by Iram Borrero MD at [facility] OR ??? PRO UPPER GI ENDOSCOPY, DIAGNOSTIC N/A 03/05/2023 EGD, UPPER GI ENDOSCOPY (WRVU 2.09) performed by Iram Borrero MD at [facility] OR ??? PRO UPPER GI ENDOSCOPY, DIAGNOSTIC N/A 03/20/2023 EGD, UPPER GI ENDOSCOPY (WRVU 2.09) performed by Gerber Salomon MD at [facility] ENDOSCOPY Active Non-Hospital Problems Diagnosis ? ? [...] exercises in horizontal and vertical and provided [facility]P Education: patient has been educated on [...] front wheeled Goals: To be achieved by 04/01/23: 1. Pt. to demonstrate knowledge of safety [...] Therapy: 45 (PT EVAL LOW COMPLEXITY) Felicia Oneal, PT Pager: [phone] Physical Therapy Inpatient Rehabilitation Department * Eva [...] L Elbow flexion 5/5 R, 5/5 L Gate Cutter LE: 5/5 R, 5/5 L Hip flexion [...] who have questions please contact the health critical care registered nurse that requested your imaging first. Cholangiopancreatography WO Contrast (Exam End: 03/19/2023 5:40 [...] who have questions please contact the health critical care registered nurse that requested your imaging first. Electronically signed by: Maximo Forrest [facility] ([phone]), at 03/20/2023 7:[address] Head wo Contrast (Generic) (Exam End: 03/21/2023 12:34 PM) Impression Normal brain CT. Thank you for letting us participate in the care of this patient. If you are a health care provider and have any questions regarding this report, please contact the number below. For patients who have questions please contact the health critical care registered nurse that requested your imaging first. Electronically signed by: Erlin Castorena [facility] ([phone]), at 03/21/2023 12:49 PM MRI Orbit wwo Contrast (Exam End: 03/24/2023 11:16 AM) Impression 1. Normal brain. 2. Normal orbits. Thank you for letting us participate in the care of this patient. If you are a health care provider and have any questions regarding this report, please contact the number below. For patients who have questions please contact the health critical care registered nurse that requested your imaging first. Brain wwo Contrast (Generic) (Exam End: 03/24/2023 11:16 AM) Impression 1. Normal brain. 2. Normal orbits. Thank you for letting us participate in the care of this patient. If you are a health care provider and have any questions regarding this report, please contact the number below. For patients who have questions please contact the health critical care registered nurse that requested your imaging first. Assessment and Plan: Leandra Wilks is a [...] continue meclizine 25mg TID PRN Eva Kapoor [facility] Medical Student 03/25/23 Associated attestation - Darinel Flores MD - 03/27/2023 9:58 AM EDT Neurology Attending Attestation I have reviewed and agree with NINA Kapoor's note which was written for educational purposes. [...] Flexor digitorum profundus Digit II-V flexion / photo technologist 5 5 L2-3 Iliopsoas Hip flexion 5 [...] who have questions please contact the health critical care registered nurse that requested your imaging first. Cholangiopancreatography WO Contrast (Exam End: 03/19/2023 5:40 [...] who have questions please contact the health critical care registered nurse that requested your imaging first. Electronically signed by: Maximo Forrest [facility] ([phone]), at 03/20/2023 7:[address] Head wo Contrast (Generic) (Exam End: 03/21/2023 12:34 PM) Impression Normal brain CT. Thank you for letting us participate in the care of this patient. If you are a health care provider and have any questions regarding this report, please contact the number below. For patients who have questions please contact the health critical care registered nurse that requested your imaging first. Electronically signed by: Erlin Castorena [facility] ([phone]), at 03/21/2023 12:49 PM MRI Orbit wwo Contrast (Exam End: 03/24/2023 11:16 AM) Impression 1. Normal brain. 2. Normal orbits. Thank you for letting us participate in the care of this patient. If you are a health care provider and have any questions regarding this report, please contact the number below. For patients who have questions please contact the health critical care registered nurse that requested your imaging first. Brain wwo Contrast (Generic) (Exam End: 03/24/2023 11:16 AM) Impression 1. Normal brain. 2. Normal orbits. Thank you for letting us participate in the care of this patient. If you are a health care provider and have any questions regarding this report, please contact the number below. For patients who have questions please contact the health critical care registered nurse that requested your imaging first. Orthostatics blood pressure measurements: Lying 102/61 (75), [...] resolve. ?? Continue high-dose thiamine. Neurology Consult #[id number] Caron Conde MD Neurology Resident PGY3 03/25/2023 Associated attestation - Darinel Flores MD - 03/27/2023 10:00 AM EDT Neurology Attending Note Darinel Flores MD PhD (pager [phone]) I have seen and examined Leandra Wilks [...] 97 % SpO2: [96 %-99 %] 03/24 701 - 03/25 700 In: 2283 [P.O.:20; I.V.:2263] Out: 250 [Urine:200] PE: General: Alert, no acute distress Head: Atraumatic, non cyanotic Cardiac: Regular rate & rhythm Pulmonary: Normal respiratory effort on RA Abdominal: Soft, non distended, not reactive to abdominal exam, dermabond intact over incisions which are well appearing, no erythema, no drainage, no induration Neuro: Grossly intact, follows commands Extremities: Warm and well-perfused Labs: Recent Labs 03/25/23 03303/24/23 0351 03/23/23 0807 03/23/23 0339 WBC 8.4 6.8 9.0 7.5 HGB 10.8* 10.5* 10.2* 10.5* HCT 32.8* 31.5* 30.2* 31.8* PLATELET 291 268 268 263 Recent Labs 03/25/23 03303/24/23 0551 03/24/23 0351 03/23/23 0339 NA 138 -- 141 139 K [...] voiding to BSC w/ SBA FWW. LBM 5/7. Patient alternating eye patch q2-4. Brain MRI- [...] voiding to BSC w/ SBA FWW. LBM 5/7. Patient alternating eye patch q2-4. Brain MRI [...] Labs: Recent Labs 03/24/23 0351 03/23/23 0807 03/23/23 0339 03/22/23 0417 WBC 6.8 9.0 7.5 8.0 HGB 10.5* 10.2* 10.5* 12.6 HCT 31.5* 30.2* 31.8* 37.3 PLATELET 268 268 263 384* Recent Labs 03/24/23 0551 03/24/23 0351 03/23/23 0339 03/22/23 0417 NA -- 141 139 140 K 3.4* [...] Pain controlled w/ scheduled and PRNmedications, see JAN. 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 Patient voiding to BSC w/ SBA FWW. [...] Pain controlled w/ scheduled and PRNmedications, see JAN. 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 Patient voiding to BSC w/ SBA FWW. [...] [94 %-100 %] 03/22 07 - 03/23 0700 In: 2218 [P.O.:20; I.V.:2188] Out: 1876 [Urine:1875] PE: General: Alert, no acute distress Head: Atraumatic, non cyanotic Cardiac: Regular rate & rhythm Pulmonary: Normal respiratory effort on RA Abdominal: Soft, non distended, minimally TTP without peritoneal signs, dermabond intact over incisions which are well appearing, no erythema, no drainage, no induration Neuro: Grossly intact, follows commands Extremities: Warm and well-perfused Labs: Recent Labs 03/23/23 03303/22/2341603/21/23 034 WBC 7.5 8.0 8.2 HGB 10.5* 12.6 13.3 HCT 31.8* 37.3 37.6 PLATELET 263 384* 322 Recent Labs 03/23/23 03303/22/2341603/21/23 034 NA 139 140 135 K 4.3 3.4* [...] does report on goingdizziness. Lap sites dermabounded FINANCIAL SALES ADVISOR. LR @ 100. VSS on RA. Denies [...] closed. 2229: Patient meets PACU discharge criteria. 2299: Verbal report called to 3D nurseCandelaria. Plans [...] 98 % SpO2: [94 %-100 %] 03/21 07 - 03/22 0700 In: 1940 [P.O.:240; I.V.:1700] Out: 1450 [Urine:1450] PE: General: Alert, no acute distress Head: Atraumatic, non cyanotic Cardiac: Regular rate & rhythm Pulmonary: Normal respiratory effort on RA Abdominal: Soft, non distended, minimally TTP without peritoneal signs Neuro: Grossly intact, follows commands Extremities: Warm and well-perfused Labs: Recent Labs 03/22/2341603/21/23 0346 03/20/23 0232 WBC 8.0 8.2 5.4 HGB 12.6 13.3 12.1 HCT 37.3 37.6 35.0* PLATELET 384* 322 319 Recent Labs 03/22/2341603/21/23 0346 03/20/23 0232 03/19/23 1532 NA 140 [...] OT: 3 ?? Patient profile: Per MD: Leandra Wilks??is [...] 29.4) performed by Iram Borrero MD at [facility] OR ??? PRO UPPER GI ENDOSCOPY, DIAGNOSTIC N/A 01/10/2023 ?? EGD, UPPER GI ENDOSCOPY performed by Iram Borrero MD at [facility] OR ??? PRO UPPER GI ENDOSCOPY, DIAGNOSTIC N/A 03/05/2023 ?? EGD, UPPER GI ENDOSCOPY (WRVU 2.09) performed by Iram Borrero MD at [facility] OR ?? Active Non-Hospital Problems ?? [...] 1-3 times/wk Total Minutes, Occupational Therapy: 23 ([facility] X2 ([phone])) Pager: [phone] Pito Baltazar, KO 03/22/2023 Occupational Therapy Rehabilitation Department * Ana Condon RN - 03/22/2023 4:30 AM EDT Pt A&Ox4. VSS. Patient tolerated two orange cuban ice and crackers prior to being NPO [...] PT to f/u 03/22. Thank you. * GiovannyPito Emi, OT - 03/21/2023 10:13 AM EDT Occupational [...] 29.4) performed by Iram Borrero MD at [facility] OR ??? PRO UPPER GI ENDOSCOPY, DIAGNOSTIC N/A 01/10/2023 ?? EGD, UPPER GI ENDOSCOPY performed by Iram Borrero MD at [facility] OR ??? PRO UPPER GI ENDOSCOPY, DIAGNOSTIC N/A 03/05/2023 ?? EGD, UPPER GI ENDOSCOPY (WRVU 2.09) performed by Iram Borrero MD at [facility] OR ?? Active Non-Hospital Problems ?? [...] 1-3 times/wk Total Minutes, Occupational Therapy: 42 ([facility] X3 ([phone])) Pager: [phone] Pito Baltazar, OT 03/21/2023 Occupational Therapy Rehabilitation [...] 98 % SpO2: [95 %-100 %] 03/20 07 - 03/21 07 In: 2514 [P.O.:360; I.V.:2154] Out: 850 [Urine:850] PE: General: Alert, no acute distress Head: Atraumatic, non cyanotic Cardiac: Regular rate & rhythm Pulmonary: Normal respiratory effort on RA Abdominal: Soft, non distended, minimally TTP without peritoneal signs Neuro: Grossly intact, follows commands Extremities: Warm and well-perfused Labs: Recent Labs 03/21/23 0346 03/20/23 0232 03/19/23 03403/18/23 1549 WBC 8.2 5.4 9.4 10.2* HGB 13.3 12.1 12.0 14.4 HCT 37.6 35.0* 32.9* 40.5 PLATELET 322 319 272 350 Recent Labs 03/21/23 0346 03/20/23 0232 03/19/23 1532 03/19/23 03403/18/23 2308 NA 135 134* 135 135 134* [...] well-perfused Labs: Recent Labs 03/20/23 0232 03/19/23 0349 03/18/23 1549 WBC 5.4 9.4 10.2* HGB 12.1 [...] who have questions please contact the health critical care registered nurse that requested your imaging first. Lab Results Component Value Date ALT 57 [...] Adair Winn MD 03/20/23 9:01 AM MISpager [phone] Associated attestation - Iram Borrero MD - [...] when OOB/with ADL's Surveillance [continuous indirect monitoring]: Barto, Purposeful Rounding, Nurse Knowledge Exchange * Dick [...] I attempted to see her again w hile she was in MRI. This study was [...] and ADLs]:??Ax2 OOB/BSC ?? Surveillance [continuous indirect monitoring]:??barto; purposeful rounding; I-PASS * Danni Jones RN - 03/19/2023 12:32 AM EDT patient arriving via stretcher transport in stable condition; awaiting reconciliation of transfer orders, MD paged and made aware; insulin gtt currently [...] Bower MD - 03/18/2023 4:04 PM EDT [facility] Department of Minimally Invasive Surgery Admission History [...] tachycardic and was advised to present to [facility] for further evaluation by the surgery team. [...] (WRVU 29.4) performed by [facility] ??? PRO UPPER GI ENDOSCOPY, DIAGNOSTIC N/A 01/10/2023 EGD, UPPER GI ENDOSCOPY performed by Iram Borrero MD at [facility] OR ??? PRO UPPER GI ENDOSCOPY, DIAGNOSTIC N/A 03/05/2023 EGD, UPPER GI ENDOSCOPY (WRVU 2.09) performed by Iram Borrero MD at [facility] OR HOME MEDICATIONS: No current facility-administered [...] unwell and was recommended to come to [facility]. Here she reports that she isn't eating [...] supposed to have EGD this morning at [facility] but was unable to tolerate the procedure; [...] Internal Medicine PGY-1 03/18/23 4:56 PM Pager #[phone] Swathi Day MD Resident 03/18/23 4237 Associated attestation - Pito Mclaughlin MD - [...] Abdominal labs ordered. 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 NO known head trauma. H/o ear infections [...] 18.46) performed by Iram Borrero MD at [facility] OR ??? PRO LAP GASTRIC BYPASS/RENATO-EN-Y N/A 01/10/2023 @LAPAROSCOPIC GASTROPLASTY W/ RENATO-EN-Y CONSTRUCTION (WRVU 29.4) performed by [facility] OR ??? PRO LAP, DIAGNOSTIC ABDOMEN N/A 03/22/2023 LAPAROSCOPY, DIAGNOSTIC, ABDOMEN (WRVU 5.14) performed by Iram Borrero MD at [facility] OR ??? PRO UPPER GI ENDOSCOPY, DIAGNOSTIC N/A 01/10/2023 EGD, UPPER GI ENDOSCOPY performed by Iram Borrero MD at [facility] OR ??? PRO UPPER GI ENDOSCOPY, DIAGNOSTIC N/A 03/05/2023 EGD, UPPER GI ENDOSCOPY (WRVU 2.09) performed by Iram Borrero MD at [facility] OR ??? PRO UPPER GI ENDOSCOPY, DIAGNOSTIC N/A 03/20/2023 EGD, UPPER GI ENDOSCOPY (WRVU 2.09) performed by Gerber Salomon MD at [facility] ENDOSCOPY Medications: Current Facility-Administered Medications Ordered in [...] PRN Natalee Winn MD 5 mg at 246 ??? FLUoxetine (PROzac) (4 mg/mL) oral liquid 20 mg 20 mg Oral Daily Natalee Winn MD 20 mg at03/28/23 0953 ??? propranoloL (Inderal) tablet 20 mg 20 mg Oral BID Natalee Winn MD 20 mg at 03/28/23 0941 ? ? sucralfate (Carafate) tablet 1 g 1 g Oral 4 Times Daily AC & HS Natalee Winn MD 1 g at 03/28/23626 ??? albuteroL (Proventil, Ventolin) (2.5 mg/3 mL) [...] 1 mg 1 mg Intramuscular Q30 Min Natalee Gottlieb MD No current [facility]-ordered outpatient medications on file. Prior To [...] ERIN 5 months ago, Dr. Ramirez in [place], [place] Near with +2.00 LL Tonometry ([facility], 2:36 PM) Right Left Pressure 13 12 Pupils Dark Light Shape APD Right 4 2 Round None Left 4 2 Round None Visual Stovall Left Right Full Full Extraocular Movement Right Left Full, Ortho, Nystagmus Full, Ortho, Nystagmus Neuro/Psych Mood/Affect: Apathetic Strabismus Exam Method: Alternate Cover, Cover-Uncover Correction: pr Observations: Ortho Distance Near Near +3DS N [...] Nystagmus/Oscillopsia: DDx includes medications, inner ear conditions, FOUNTAIN SERVER disease in absence of any reported h/o [...] discuss discharge planning needs. ?? provide the [facility], Office of Care Management letter from the Buzzsaw Operator pertaining to rehabreferrals. ?? provide a letter describing our affiliations within the [facility] and educate about their right to choose where referrals are sent. ?? provide the [facility] Star Quality Rating handout. ?? review the different levels of rehab including SNF, swing, and acute. ?? provide a list of facilities within their preferred geographic area. ?? request that they provide at least three choices for referral. They have requested referrals to: [facility] ([facility]) ([facility]) [address] [place] [address] (Accepts pts only after exhausting all other local SNF options Only pts from their area with PCP at the Hospital Maximum rehab stay of 5 days) [facility] [address] [place] [address] [facility] [address] [place] [address] Note routed to a Knit [employer]s Press Hand who will communicate referrals to facilities and provide any required information. Addendum: Call placed to [facility], no beds, [facility] no beds, Caryl hector. * Consult Note - Jessica Haywood [facility] - 03/27/2023 10:40 AM EDT [facility] (Behavioral Intervention Team) [facility] stopped to see this patient today. [...] this admission for support. Jessica Haywood MA, [facility] - BIT (Behavioral Intervention Team) Dept. of Psychiatry - Inpatient Psych. Services Pager: [phone] * Consult Note - Maximo Moreno MD [...] after last reduced dose). Relevant drugs in MAR active today: include Fluoxetine 20 mg po [...] improved her double vision. According to the lever tender's information, lamotrigine (uma at higher doses) can [...] was reduced. I am available on pager [phone] if I can help further. This is definitely a challenging case, but I think it is likely that the lamotrigine is contributing or causing to the nystagmus and double vision,and possibly contributing to the nausea and vomiting that patient has had as well. Maximo Moreno MD Pager [phone] * Care Management - Corey Wick RN [...] discuss discharge planning needs. ?? provide the [facility], Office of Care Management letter from the Buzzsaw Operator pertaining to rehabreferrals. ?? provide a letter describing our affiliations within the [facility] and educate about their right to choose where referrals are sent. ?? provide the [facility] Star Quality Rating handout. ?? review the different levels of rehab including SNF, swing, and acute. ?? provide a list of facilities within their preferred geographic area. ?? request that they provide at least three choices for referral. They have requested referrals to: [facility] Inpatient Rehabilitation Unit - [address] [address] [facility] Acute Rehabilitation and Sub-Acute (Swing) Rehab Levels of Care [address] [place] [address] Note routed to a [employer] Press Hand who will communicate referrals to facilities and [...] 2 choices and made pt aware that [place] only had 2, [facility] and [facility]. Pt agreed to placing both. Anticipated Date of Discharge: 03/29/2023 Isak STEPHENS, RN CM Case Management [phone] * Consult Note - Jessica Haywood, [facility] - 03/25/2023 10:40 AM EDT BIT [...] to varying degrees since her original surgery. [facility] encouraged patient to discuss stressors and emotional [...] treatment. Interventions delivered: Supportive therapy Plan: 1. [facility] to continue to follow for support during admission 2. Recommend patient continue with her established outpatient mental health counseling Time spent with the patient (min):15 minutes Time spent on case coordination (min): 10 minutes Jessica Haywood MA, [facility] - BIT (Behavioral Intervention Team) Dept. of Psychiatry - Inpatient Psych. Services Pager: [phone] * Consult Note - Fernando Giles MD [...] [facility] She states that she continues to have [...] and normal rhythm ?? Language: fluent in kenyan, without paraphasic errors and without word finding [...] 3 wbc, hgb, hct plt Recent Labs 03/25/23 0331 03/24/23 0351 03/23/23 0807 WBC 8.4 6.8 9.0 HGB 10.8* 10.5* 10.2* HCT 32.8* 31.5* 30.2* PLATELET 291 268 268 Last 3 Lytes Recent Labs 03/25/23 0331 03/24/23 0551 03/24/23 03503/23/23 033 NA 138 -- 141 139 K 3.4* 3.4* Not Perf 4.3 CL 100 -- 104 103 CO2 22 -- 29 27 BUN 3* -- 5* 6* CREATININE 0.61* -- 0.65* 0.61* Last 3 LFTs Recent Labs 03/25/23 0331 03/24/23 0551 03/24/23 0351 03/23/23 0339 03/21/23 0346 [...] displayed. Last Ca, Mg, Phos Recent Labs 03/25/23330 CALCIUM 8.8 PHOS 3.4 MAGNESIUM 0.67* Last [...] who have questions please contact the health critical care registered nurse that requested your imaging first. Cholangiopancreatography WO Contrast (Exam End: 03/19/2023 5:40 [...] visceral organs, gastrointestinal tract, and vascular structures. Metal Coater Images: Noncontributory. Inferior thorax: Visualized structures within [...] who have questions please contact the health critical care registered nurse that requested your imaging first. Electronically signed by: Maximo Forrest [facility] ([phone]), at 03/20/2023 7:[address] Head wo [...] who have questions please contact the health critical care registered nurse that requested your imaging first. Electronically signed by: Erlin Castorena [facility] ([phone]), at 03/21/2023 12:49 PM MRI Orbit wwo Contrast (Exam End: 03/24/2023 11:16 AM) Narrative EXAMINATION: MRI BRAIN WWO CONTRAST (GENERIC), MRI ORBIT WWO CONTRAST CLINICAL HISTORY: Dizziness, non-specific dizziness, diplopia, rule out stroke? (accession [id number]), right eye weakness, diplopia, concern for possible inferior rectus infiltration or inflamation vs. possible optic neuritis (accession [id number]). Right-sided weakness, diplopia, concerning for possible inferior [...] who have questions please contact the health critical care registered nurse that requested your imaging first. Brain wwo Contrast (Generic) (Exam End: 03/24/2023 11:16 AM) Narrative EXAMINATION: MRI BRAIN WWO CONTRAST (GENERIC), MRI ORBIT WWO CONTRAST CLINICAL HISTORY: Dizziness, non-specific dizziness, diplopia, rule out stroke? (accession [id number]), right eye weakness, diplopia, concern for possible inferior rectus infiltration or inflamation vs. possible optic neuritis (accession [id number]). Right-sided weakness, diplopia, concerning for possible inferior [...] who have questions please contact the health critical care registered nurse that requested your imaging first. Film Library- Storage Only Ultrasound Study (Exam [...] this assessment. Recommendations were communicated to primary contact center team lead Dick Bower. Fernando Giles MD 03/25/2023 Coding [...] Minimal/Low [] Low [] Minimal/Low [] Low 00106 [] Moderate [] Moderate [] Moderate [] Moderate 61149 [] High [] High [] High [] High 46998 Final Coding Determination: Straightforward/low Associated attestation - Carlito Parrish MD - 04/05/2023 2:33 PM EDT Psychiatry Attending Note I discussed this patient's situation with the resident but did not see the patient. I contributed to the formulation and treatment planning as documented in the resident's note. Carlito Parrish MD Psychiatry Consultation Pager: [phone] * Consult Note - Varsha Topete APRN - 03/24/2023 9:46 AM EDT Images from the original note were not included. Vascular Neurology Consult Note Patient name:Leandra Wilks Date of :1980 Admit date: 03/18/2023 Attending: Dr. lFores ID: Leandra Wilks is a 43 y.o. [...] MRI Data Labs: I/O 24 Hours: 03/23 0701 - 03/24 0700 In: 2036 [P.O.:200; I.V.:1719] Out: 400 [Urine:400] I/O this shift: In: 1531 [I.V.:1531] Out: - Recent Labs 03/24/23 0351 03/23/23 0807 03/23/23 0339 03/22/23 0417 03/21/23 0346 WBC 6.8 9.0 7.5 8.0 8.2 HGB 10.5* 10.2* 10.5* 12.6 13.3 HCT 31.5* 30.2* 31.8* 37.3 37.6 PLATELET 268 268 263 384* 322 NEUTROABS 3.49 7.13* 6.54* 4.00 5.44 Recent Labs 03/24/23 0551 03/24/23 03503/23/23 03303/22/2341603/21/2334503/20/23 023 NA -- 141 139 140 135 134* K 3.4* Not Perf 4.3 3.4* 3.8 4.1 CL -- 104 103 98 98 97* CO2 -- 29 27 32* 27 26 BUN -- 5* 6* 7* 6* 4* CREATININE -- 0.65* 0.61* 0.69* 0.54* 0.42* GLUCOSE -- 81 111 101 105 122 Recent Labs 03/24/2335003/23/2333803/22/23416 CALCIUM 8.3* 8.8 9.0 MAGNESIUM 0.75 0.80 0.94 PHOS 3.1 3.4 3.1 Recent Labs 03/24/2355003/24/2335003/23/2333803/22/2341603/21/2334503/20/23 02303/18/23 1549 AST 54* Not Perf 39* 30 [...] 168 hours. No results for input(s): PHART, ZPR7YDI, PO2ART, SEE8DRN in the last 168 hours. No results [...] Folate supplementation - daily multivit General Neurology #[id number] Varsha Topete APRN Personal Pager #[phone] [place] [address] Associated attestation - Darinel Flores MD - 03/24/2023 2:26 PM EDT Neurology Attending Note Darinel Flores MD PhD (pager [phone]) I have seen and examined Leandra Wilks [...] Flexor digitorum profundus Digit II-V flexion / photo technologist 5 5 L2-3 Iliopsoas Hip flexion 5 [...] who have questions please contact the health critical care registered nurse that requested your imaging first. Cholangiopancreatography WO Contrast (Exam End: 03/19/2023 5:40 [...] who have questions please contact the health critical care registered nurse that requested your imaging first. Electronically signed by: Maximo Forrest [facility] ([phone]), at 03/20/2023 7:[address] Head wo Contrast (Generic) (Exam End: 03/21/2023 12:34 PM) Impression Normal brain CT. Thank you for letting us participate in the care of this patient. If you are a health care provider and have any questions regarding this report, please contact the number below. For patients who have questions please contact the health critical care registered nurse that requested your imaging first. Electronically signed by: Erlin Castorena [facility] ([phone]), at 03/21/2023 12:49 PM Orthostatics blood pressure [...] brainstem - MRI orbits wwo Neurology Consult #[id number] Isai Esqueda MD Neurology Resident, PGY-4 03/23/2023 Associated attestation - Darinel Flores MD - 03/24/2023 2:28 PM EDT Neurology Attending Note Darinel Flores MD PhD (pager [phone]) Please see my earlier attestation. * Op Note - Iram Borrero MD - 03/22/2023 7:54 PM EDT [facility] Operative Note Patient Name: Leandra Wilks : [id number] MR#: [id number] Case Date: 03/22/2023 Surgeon: Surgeon(s) and Role: [...] Natalee Winn MD 10 mg at 03/22/23 06 ??? sodium chloride 0.9 % (flush) (BD [...] BID Iram Borrero MD 100 mg at 03/22/23 0922 ??? metoclopramide (Reglan) (5 mg/mL) injection 10 mg 10 mg Intravenous Q6H PRN Natalee Winn MD 10 mg at 03/20/23 0854 ??? enoxaparin (Lovenox) (40 mg/0.4 mL) subcutaneous injection 40 mg 40 mg Subcutaneous Nightly Lisandro Araya MD 40 mg at 03/21/23 2119 ??? ondansetron (Zofran) tablet 4-8 mg 4-8 [...] N/A 01/10/2023 @LAPAROSCOPIC GASTROPLASTY W/ RENATO-EN-Y CONSTRUCTION (VU 29.4) performed by [facility] ??? PRO UPPER GI ENDOSCOPY, DIAGNOSTIC N/A 01/10/2023 EGD, UPPER GI ENDOSCOPY performed by Iram Borrero MD at [facility] OR ??? PRO UPPER GI ENDOSCOPY, DIAGNOSTIC N/A 03/05/2023 EGD, UPPER GI ENDOSCOPY (WRVU 2.09) performed by Iram Borrero MD at [facility] OR ??? PRO UPPER GI ENDOSCOPY, DIAGNOSTIC N/A 03/20/2023 EGD, UPPER GI ENDOSCOPY (WRVU 2.09) performed by Gerber Salomon MD at [facility] Allergies: No Known Allergies Family history: [...] Flexor digitorum profundus Digit II-V flexion / photo technologist 5 5 L2-3 Iliopsoas Hip flexion 5 [...] who have questions please contact the health critical care registered nurse that requested your imaging first. Cholangiopancreatography WO Contrast (Exam End: 03/19/2023 5:40 [...] who have questions please contact the health critical care registered nurse that requested your imaging first. Electronically signed by: Maximo Forrest [facility] ([phone]), at 03/20/2023 7:[address] Head wo Contrast (Generic) (Exam End: 03/21/2023 12:34 PM) Impression Normal brain CT. Thank you for letting us participate in the care of this patient. If you are a health care provider and have any questions regarding this report, please contact the number below. For patients who have questions please contact the health critical care registered nurse that requested your imaging first. Orthostatics blood pressure measurements: Lying 102/61 (75), [...] Vestibular PT - MRI General Neurology Consults #[id number]. To be staffed in AM with Dr. Flores. Jaxon Kaur MD PGY1 03/22/2023 Isai Esqueda MD Neurology Resident, PGY-4 03/22/2023 Associated attestation - Darinel Flores MD - 03/24/2023 2:29 PM EDT Neurology Attending Note Darinel Flores MD PhD (pager [phone]) I have seen and examined Leandra Wilks [...] would empirically replete IV thiamine 500mg TID. H Siddharth Bustillo MD Psychiatry Consultation Pager: [phone] Psychiatric Initial Inpatient Consultation Note Time of [...] Prozac and Lamictal Past hospitalizations: None at [facility] Suicide attempts: 1 remote attempt Past psychiatric [...] (WRVU 29.4) performed by [facility] ??? PRO UPPER GI ENDOSCOPY, DIAGNOSTIC N/A 01/10/2023 EGD, UPPER GI ENDOSCOPY performed by Iram Borrero MD at [facility] OR ??? PRO UPPER GI ENDOSCOPY, DIAGNOSTIC N/A 03/05/2023 EGD, UPPER GI ENDOSCOPY (WRVU 2.09) performed by Iram Borrero MD at [facility] OR ??? PRO UPPER GI ENDOSCOPY, DIAGNOSTIC N/A 03/20/2023 EGD, UPPER GI ENDOSCOPY (WRVU 2.09) performed by Gerber Salomon MD at [facility] Inpatient Medications: Current Facility-Administered Medications Medication [...] Nightly Lisandro Araya MD 40 mg at 03/20/232130 ??? ondansetron (Zofran) tablet 4-8 mg 4-8 [...] and increased latency ?? Language: fluent in kenyan, without paraphasic errors and without word finding [...] Last Ca, Mg, Phos Recent Labs 03/21/23 034 CALCIUM 8.4* PHOS 3.0 MAGNESIUM 0.81 Last [...] who have questions please contact the health critical care registered nurse that requested your imaging first. Cholangiopancreatography WO Contrast (Exam End: 03/19/2023 5:40 [...] visceral organs, gastrointestinal tract, and vascular structures. Metal Coater Images: Noncontributory. Inferior thorax: Visualized structures within [...] who have questions please contact the health critical care registered nurse that requested your imaging first. Electronically signed by: Maximo Forrest [facility] ([phone]), at 03/20/2023 7:[address] Head wo [...] who have questions please contact the health critical care registered nurse that requested your imaging first. Electronically signed by: Erlin Castorena [facility] ([phone]), at 03/21/2023 12:49 PM Film Library- Storage [...] this assessment. Recommendations were communicated to primary contact center team lead. Fernando Giles MD 03/21/2023 Coding Determination 1. [...] [] Minimal - [] Minimal [] Straightforward 77086 [] Low [] Low [] Low [] Low 67463 [] Moderate [x] Moderate [] Moderate [] Moderate 07976 [x] High [] High [x] High [x] High 55000 Final Coding Determination: Straightforward * Consult Note - Jessica Haywood [facility] - 03/21/2023 11:30 AM EDT BIT [...] surgery. Because patient will be evaluated by [facility] psychiatrist who can obtain more history, etc., [...] additional support. Interventions delivered: Supportive therapy Plan: [facility] to follow for supportive therapy Outstanding Discharge Needs: Other: TBD - patient already has an established outpatient therapist Time spent with the patient (min):30 minutes Time spent on case coordination (min): 15 minutes Jessica Haywood MA, [facility] - BIT (Behavioral Intervention Team) Dept. of Psychiatry - Inpatient Psych. Services Pager: [phone] * Initial Assessments - Pito Batlazar, OT - 03/20/2023 1:38 PM EDT Occupational Therapy Evaluation Patient profile: Per MD: Leandrachapincito Wilks is a 43 y.o. female??with [...] (WRVU 29.4) [facility] by [facility] ??? PRO UPPER GI ENDOSCOPY, DIAGNOSTIC N/A 01/10/2023 EGD, UPPER GI ENDOSCOPY performed by Iram Borrero MD at [facility] MAIN OR ??? PRO UPPER GI ENDOSCOPY, DIAGNOSTIC N/A 03/05/2023 EGD, UPPER GI ENDOSCOPY (WRVU 2.09) performed by Iram Borrero MD at [facility] MAIN OR Active Non-Hospital Problems Diagnosis ? [...] planning. Total Minutes, Occupational Therapy: 34 (Eval ([id number])) 2017 OT Evaluation Code Rationale: ?? Diagnosis [...] and measurable assessment of functional outcome. Pager: [phone] Pito Baltazar OT 03/20/2023 Occupational Therapy Rehabilitation Department * Op Note - Gerber Salomon MD - 03/20/2023 11:55 AM EDT DH Operative Note Patient Name: Leandra Wilks : [id number] MR#: [id number] Case Date: 03/20/2023 Surgeon: Surgeon(s) and Role: [...] (WRVU 29.4) performed by Iram Borrero MDat [facility] MAIN OR ??? PRO UPPER GI ENDOSCOPY, DIAGNOSTIC N/A 01/10/2023 EGD, UPPER GI ENDOSCOPY performed by Iram Borrero MD at [facility] MAIN OR ??? PRO UPPER GI ENDOSCOPY, DIAGNOSTIC N/A 03/05/2023 EGD, UPPER GI ENDOSCOPY (WRVU 2.09) performed by Iram Borrero MD at [facility] MAIN OR SOCIAL HX: Social History Socioeconomic [...] Resp: [10-18] SpO2 SpO2: [96 %-100 %] IO 03/18 0701 - 03/19 0700 In: 1408.3 [...] reviewed in eDH CBC: Recent Labs 03/19/23 0349 03/18/23 1549 WBC [...] who have questions please contact the health critical care registered nurse that requested your imaging first. Film Library- Storage Only CT Abdomen & [...] EGD. Raúl Zapien MD Section of Gastroenterology [facility] * Plan of Care - Cecily [...] N/A ; Prescription Coverage: Yes Preferred Pharmacy: [id number] - [place], [place] - [address] [facility] [address] [facility] [address] [facility] [place] [facility] [place], [place] - [address] [facility] [address] [facility] [address] [facility] [address] Advance Care Planning: Attempt Cardiopulmonary Resuscitation - Inpatient <no information> -Advanced Directive: (not on file) Current Functional Ability: Assistive Person Functional Status Prior to Admission: Independent Home Environment: Others in the home: significant other. Current Living Arrangements: home/apartment/condo. Accessibility Concerns:second floor apartment, FOS to manage. Current DME: none [address] [facility] [id number] Social & Family Supports: All names listed below confirmed with patient as current and correct Extended Emergency Contact Information Primary Emergency Contact: JAXON BLAKE Address: [address] [place] [id number] [facility] Mobile Relation: Life Partner Secondary Emergency Contact: LoyOzzy Address: [address] [facility] Relation: Child Current Care Provided by: self [...] private car when medically ready. Registered Nurse Retail Store Clerk / Javascript Ui Developer will continue to follow patient???s progress and remain available if situation changes for coordination of care, psychosocial support and/or discharge planning. Office of Care Management Janis HEDRICK RN Surgery Team Retail Store ClerkShip'S Officer of Care Management [email or web address] Pager #[phone] * Consult Note - Emmanuel Rodriguez [facility] - 03/19/2023 1:00 AM EDT TelePharmacy Home [...] On track(2021 10:28 AM EST) Jill Colmenares, PERIANESTHESIA RN Note: Mindfulness/deep breathing practice to reduce cortisol -try for at least 10 minutes a day -try an ap such as headspace I have referred you to our psychologist to work on eating behaviors Health Grouter Helper is sending hand-outs with exercises for mindful eating, The Pause/STOP and Urge surfing. Patient will review and try implementing some behaviors before we meet again. 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 Lymphocytes % 33.0 % [facility] Lymphocytes Abs 2.3 0.9 - 3.2 x10(3)/[facility] Monocytes % 5.6 % [facility] Monocyte Abs 0.4 0.3 - 0.9 x10(3)/[facility] Eosinophils % 4.9 % [facility] Eosinophils Abs 0.4 0.0 - 0.4 x10(3)/[facility] Basophils % 0.3 % [facility] Basophils Abs 0.0 0.0 - 0.1 x10(3)/[facility] Immature Gran % 1.10 % [facility] Comment: Immature granulocytes(IG's)percentage and absolute count will include metamyelocytes, myelocytes, and promyelocytes. Blood smears from CBCs yielding IG's will be scanned manually for concordance. If this scan disagrees with the automated IG or if promyelocytes are noted, a manual differential will be performed. Reshma Gran Abs 0.08(H) 0.00 - 0.04 x10(3)/[facility] Blood 03/27/2023 3:50 AM EDT 03/27/2023 4:21 AM EDT Narrative Resulting Agency Comment Spec In Lab Natalee Winn MD HEMATOLOGY ORDERABLE S [facility] [place] [address] * (ABNORMAL) Hemogram (03/27/2023 3:50 AM EDT) WBC 7.1 4.0 - 9.5 x10(3)/[facility] LABORATORY RBC 3.75(L) 4.00 - 5.21 x10(6)/[facility] Hemoglobin 10.9(L) 11.7 - 15.5 g/dL [facility] Hematocrit 31.5(L) 35.7 - 45.8 % [facility] MCV 84.0 82.6 - 94.4 fL [facility] MCH 29.1 27.1 - 32.0 pg [facility] MCHC 34.6 31.7 - 35.0 g/dL [facility] Platelets 297 145 - 357 x10(3)/[facility] RDWSD 47.8(H) 37.0 - 46.0 fL [facility] RDWCV 15.9(H) 11.5 - 14.1 % [facility] MPV 9.3 7.6 - 12.9 fL [facility] nRBC % Auto 0.0 % [facility] nRBC Abs Auto 0.000 0.000 - 0.000 x10(3)/[facility] Blood 03/27/2023 3:50 AM EDT 03/27/2023 4:21 AM EDT Narrative Resulting Agency Comment Spec In Lab Natalee Winn MD HEMATOLOGY ORDERABLE S [facility] [place] [address] * (ABNORMAL) Comprehensive metabolic panel (non-fasting) (03/27/2023 3:50 AM EDT) Glucose Lvl 86 65 - 199 mg/dL [facility] Comment:Diabetes: >=200 mg/d L plus symptoms BUN 10 8 - 18 mg/dL [facility] Comment:result rechecked-GH Creatinine 0.74 0.70 - 1.20 mg/dL [facility] Sodium 141 135 - 145 mmol/L [facility] Potassium 3.5 3.5 - 5.0 mmol/L [facility] Comment: Please note: ??Patients with WBC >100,000 may have falsely elevated Potassium levels. ??For accurate Potassium quantification in these patients send serum separator tube (gold top) for subsequent determinations. ??Contact the Clinical Chemistry Laboratory if there are any questions. Chloride 105 98 - 107 mmol/L [facility] CO2 25 22 - 31 mmol/L [facility] Anion Gap 11 5 - 15 mmol/L [facility] Calcium 8.7 8.5 - 10.5 mg/dL [facility] Total Protein 5.3(L) 6.1 - 8.0 g/dL [facility] Albumin 3.2 3.2 - 5.2 g/dL [facility] AST 40(H) 0 - 30 unit/L [facility] ALT 42(H) 0 - 30 unit/L [facility] Alk Phos 111(H) 35 - 105 unit/L [facility] Total Bilirubin 0.7 0.2 - 1.3 mg/dL [facility] Estimated GFR 102 >=60 mL/min/1. 73 m?? [facility] Comment: This patient's estimated GFR [...] In Lab Natalee Winn MD CHEMISTRY ORDERABLES [facility] [place] [address] * Phosphorus (03/27/2023 3:50 AM EDT) [facility] Phosphorus 4.3 2.5 - 4.5 mg/dL [facility] Blood 03/27/2023 3:50 AM EDT 03/27/2023 4:19 AM EDT Narrative Resulting Agency Comment Spec In Lab Natalee Winn MD CHEMISTRY ORDERABLES [facility] [place] [address] * Magnesium (03/27/2023 3:50 AM EDT) [facility] Magnesium 0.85 0.69 - 1.07 mmol/L [facility] Blood 03/27/2023 3:50 AM EDT 03/27/2023 4:19 AM EDT Narrative Resulting Agency Comment Spec In Lab Natalee Winn MD CHEMISTRY ORDERABLES Performing Organization Address [facility]/ZIP Co de Phone Number [facility] [place] [address] * POCT Glucose (03/26/2023 7:43 PM EDT) [facility] POC Glucose 89 65 - 199 mg/dL [facility] Comment: Supplemental ranges: <140 mg/dL before meals <180 mg/dL all other times of the day Blood 03/26/2023 7:43 PM EDT 03/26/2023 7:43 PM EDT Iram Borrero MD POINT OF CARE TEST O RDERABLES [facility] [place] [address] * Lamotrigine Lvl (03/26/2023 4:00 AM EDT) [facility] Lamotrigine Lvl 3.6 3.0 - 15.0 mcg/mL [facility] Comment: ADDITIONAL INFORMATION This test was developed and its performance characteristics determined by [facility] in a manner consistent with CLIA requirements. This test has not been cleared or approved by the U.S. Food and Drug Administration. Test Performed by: [facility] [address] [place] [address] Prosthetic Assistant: Erlin Orlando M.D. Ph.D.; CLIA# [id number] Blood Venous Draw / Unknown 03/26/2023 4:00 AM EDT 03/26/2023 3:52 PM EDT Narrative Resulting Agency Comment Spec In Lab Natalee Winn MD CHEMISTRY ORDERABLES Performing Organization Address City/[facility]/ZIP Co de Phone Number [facility] [place] [address] * (ABNORMAL) Ferritin (03/26/2023 4:00 AM EDT) [facility] Ferritin 778(H) 15 - 150 ng/mL [facility] Comment: Pediatric reference ranges not verified at [facility] interpret with caution. Reference ranges for females greater than 50 years of age approach values for men, i.e., 30-400 ng/mL. Blood Venous Draw / Unknown 03/26/2023 4:00 AM EDT 03/26/2023 4:37 AM EDT Narrative Resulting Agency Comment Spec In Lab Joan GAINES CHEMISTRY ORDERABLE S [facility] [place] [address] * (ABNORMAL) Iron and TIBC (03/26/2023 4:00 AM EDT) [facility] Iron 80 30 - 150 mcg/dL [facility] TIBC 226(L) 250 - 450 mcg/dL [facility] Iron Saturation 35 20 - 50 % [facility] Blood Venous Draw / Unknown 03/26/2023 4:00 AM EDT 03/26/2023 4:36 AM EDT Narrative Resulting Agency Comment Spec In Lab Joan GAINES CHEMISTRY ORDERABLE S Performing Organization Address City/[facility]/ZIP Co de Phone Number [facility] [place] [address] * Vitamin D, 25-Hydroxy (03/26/2023 4:00 AM EDT) 25-OH Vit D Total 34 21 - 100 ng/mL [facility] 25-OH Vit D Interp Sufficient [facility] Blood Venous Draw / Unknown 03/26/2023 4:00 AM EDT 03/26/2023 4:37 AM EDT Narrative Resulting Agency Comment Spec In Lab Joan GAINES CHEMISTRY ORDERABLE S Performing Organization Address City/[facility]/ZIP Co de Phone Number [facility] [place] [address] * Green Tube HOLD (03/26/2023 4:00 AM EDT) Green Hold Sample in lab. [facility] Blood Venous Draw / Unknown 03/26/2023 4:00 AM EDT 03/26/2023 4:35 AM EDT Natalee Winn MD CHEMISTRY ORDERABLES Performing Organization Address City/[facility]/ZIP Co de Phone Number [facility] [place] [address] * Gold Tube HOLD (03/26/2023 4:00 AM EDT) Gold Hold Sample in lab. [facility] Blood Venous Draw / Unknown 03/26/2023 4:00 AM EDT 03/26/2023 4:36 AM EDT Natalee Winn MD CHEMISTRY ORDERABLES [facility] [place] [address] * (ABNORMAL) Differential, Automated (03/26/2023 4:00 AM EDT) Neutrophils % 54.4 % [facility] Neutr Abs (ANC) 3.65 1.70 - 6.10 x10(3)/[facility]OR[facility] Lymphocytes % 31.2 % [facility] Lymphocytes Abs 2.1 0.9 - 3.2 x10(3)/[facility] Monocytes % 6.0 % [facility] Monocyte Abs 0.4 0.3 - 0.9 x10(3)/[facility] Eosinophils % 6.0 % [facility] Eosinophils Abs 0.4 0.0 - 0.4 x10(3)/[facility] Basophils % 0.6 % [facility] Basophils Abs 0.0 0.0 - 0.1 x10(3)/[facility] Immature Gran % 1.80 % [facility] Comment: Immature granulocytes(IG's)percentage and absolute count will include metamyelocytes, myelocytes, and promyelocytes. Blood smears from CBCs yielding IG's will be scanned manually for concordance. If this scan disagrees with the automated IG or if promyelocytes are noted, a manual differential will be performed. Reshma Gran Abs 0.12(H) 0.00 - 0.04 x10(3)/[facility] Blood 03/26/2023 4:00 AM EDT 03/26/2023 4:35 AM EDT Narrative Resulting Agency Comment Spec In Lab Natalee Winn MD HEMATOLOGY ORDERABLE S [facility] [place] [address] * (ABNORMAL) Hemogram (03/26/2023 4:00 AM EDT) [facility] WBC 6.7 4.0 - 9.5 x10(3)/[facility] LABORATORY RBC 4.00 4.00 - 5.21 x10(6)/[facility] Hemoglobin 11.4(L) 11.7 - 15.5 g/dL [facility] Hematocrit 34.0(L) 35.7 - 45.8 % [facility] MCV 85.0 82.6 - 94.4 fL [facility] MCH 28.5 27.1 - 32.0 pg [facility] MCHC 33.5 31.7 - 35.0 g/dL [facility] Platelets 296 145 - 357 x10(3)/[facility] LABORATORY RDWSD 46.9(H) 37.0 - 46.0 [facility] LABORATORY RDWCV 15.5(H) 11.5 - 14.1 % [facility] MPV 9.1 7.6 - 12.9 [facility] nRBC % Auto 0.0 % [facility] nRBC Abs Auto 0.000 0.000 - 0.000 x10(3)/[facility] Blood 03/26/2023 4:00 AM EDT 03/26/2023 4:35 AM EDT Narrative Resulting Agency Comment Spec In Lab Natalee Winn MD HEMATOLOGY ORDERABLE S [facility] [place] [address] * (ABNORMAL) Comprehensive metabolic panel (non-fasting) (03/26/2023 4:00 AM EDT) Pathologist [facility] Glucose Lvl 82 65 - 199 mg/dL [facility] Comment:Diabetes: >=200 mg/d L plus symptoms BUN 4(L) 8 - 18 mg/dL [facility] Creatinine 0.70 0.70 - 1.20 mg/dL [facility] Sodium 140 135 - 145 mmol/L [facility] Potassium 3.8 3.5 - 5.0 mmol/L [facility] Comment: Please note: ??Patients with WBC >100,000 may have falsely elevated Potassium levels. ??For accurate Potassium quantification in these patients send serum separator tube (gold top) for subsequent determinations. ??Contact the Clinical Chemistry Laboratory if there are any questions. Chloride 104 98 - 107 mmol/L [facility] CO2 25 22 - 31 mmol/L [facility] Anion Gap 11 5 - 15 mmol/L [facility] Calcium 8.7 8.5 - 10.5 mg/dL [facility] Total Protein 5.7(L) 6.1 - 8.0 g/dL [facility] Albumin 3.3 3.2 - 5.2 g/dL [facility] AST 41(H) 0 - 30 unit/L [facility] ALT 42(H) 0 - 30 unit/L [facility] Alk Phos 119(H) 35 - 105 unit/L [facility] Total Bilirubin 0.6 0.2 - 1.3 mg/dL [facility] Estimated GFR 109 >=60 mL/min/1. 73 m?? [facility] Comment: This patient's estimated GFR [...] Winn MD CHEMISTRY ORDERABLES Performing Organization Address [facility] Co de Phone Number [facility] [place] [address] * Phosphorus (03/26/2023 4:00 AM EDT) Phosphorus 4.4 2.5 - 4.5 mg/dL [facility] Blood 03/26/2023 4:00 AM EDT 03/26/2023 4:35 AM EDT Narrative Resulting Agency Comment Spec In Lab Natalee Winn MD CHEMISTRY ORDERABLES Performing Organization Address [facility] de Phone Number [facility] [place] [address] * Magnesium (03/26/2023 4:00 AM EDT) Magnesium 0.94 0.69 - 1.07 mmol/L [facility] Blood 03/26/2023 4:00 AM EDT 03/26/2023 4:35 AM EDT Narrative Resulting Agency Comment Spec In Lab Natalee Winn MD CHEMISTRY ORDERABLES Performing Organization Address [facility] Co de Phone Number [facility] [place] [address] * TSH Saline (03/26/2023 4:00 AM EDT) TSH 0.47 0.27 - 4.20 mcIU/mL [facility] Comment: Reference Interval (mcIU/mL): Females: ??First Trimester: 0.23-3.88 ??Second Trimester: 0.22-3.90 ??Third Trimester: 0.44-4.66 Blood 03/26/2023 4:00 AM EDT 03/26/2023 4:35 AM EDT Narrative Resulting Agency Comment Spec In Lab Iram Borrero MD CHEMISTRY ORDERABLES Performing Organization Address [facility]/ZIP Co de Phone Number [facility] [place] [address] * CK (03/26/2023 4:00 AM EDT) CK, Total 51 0 - 160 unit/L [facility] Blood 03/26/2023 4:00 AM EDT 03/26/2023 4:35 AM EDT Narrative Resulting Agency Comment Spec In Lab Iram Borrero MD CHEMISTRY ORDERABLES Performing Organization Address [facility] Co de Phone Number [facility] [place] [address] * CRP, acute inflammation (03/26/2023 4:00 AM EDT) CRP 4.5 <=4.9 mg/L [facility] Blood 03/26/2023 4:00 AM EDT 03/26/2023 4:35 AM EDT Narrative Resulting Agency Comment Spec In Lab Iram Borrero MD CHEMISTRY ORDERABLES Performing Organization Address City/[facility] Co de Phone Number [facility] [place] [address] * Sedimentation rate (03/26/2023 4:00 AM EDT) Sed Rate 16 2 - 37 mm/hr [facility] Comment: Effective October 28, 2019 new capillary photometric technology has resulted in a change in reference ranges. It is recommended that each ESR result be reviewed with its own age appropriate reference range. Blood 03/26/2023 4:00 AM EDT 03/26/2023 4:35 AM EDT Narrative Resulting Agency Comment Spec In Lab Iram Borrero MD [place] [address] * (ABNORMAL) Differential, Automated (03/25/2023 3:31 AM EDT) Neutrophils % 55.0 % [facility] Neutr Abs (ANC) 4.60 1.70 - 6.10 x10(3)/ L [facility] Lymphocytes % 29.4 % [facility] Lymphocytes Abs 2.5 0.9 - 3.2 x10(3)/ L [facility] Monocytes % 6.2 % [facility] Monocyte Abs 0.5 0.3 - 0.9 x10(3)/ L [facility] Eosinophils % 5.7 % [facility] Eosinophils Abs 0.5(H) 0.0 - 0.4 x10(3)/ L [facility] Basophils % 0.7 % [facility] Basophils Abs 0.1 0.0 - 0.1 x10(3)/[facility] Immature Gran % 3.00 % [facility] Comment: Immature granulocytes(IG's)percentage and absolute count will include metamyelocytes, myelocytes, and promyelocytes. Blood smears from CBCs yielding IG's will be scanned manually for concordance. If this scan disagrees with the automated IG or if promyelocytes are noted, a manual differential will be performed. Reshma Gran Abs 0.25(H) 0.00 - 0.04 x10(3)/ L [facility] Blood 03/25/2023 3:31 AM EDT 03/25/2023 3:44 AM EDT Narrative Resulting Agency Comment Spec In Lab Natalee Winn MD HEMATOLOGY ORDERABLE S Performing Organization Address City/[facility]/ZIP Co de Phone Number [facility] [place] [address] * (ABNORMAL) Hemogram (03/25/2023 3:31 AM EDT) [facility] WBC 8.4 4.0 - 9.5 x10(3)/[facility] LABORATORY RBC 3.77(L) 4.00 - 5.21 x10(6)/[facility] Hemoglobin 10.8(L) 11.7 - 15.5 g/dL [facility] Hematocrit 32.8(L) 35.7 - 45.8 % [facility] MCV 87.0 82.6 - 94.4 fL [facility] MCH 28.6 27.1 - 32.0 pg [facility] MCHC 32.9 31.7 - 35.0 g/dL [facility] Platelets 291 145 - 357 x10(3)/[facility] LABORATORY RDWSD 48.2(H) 37.0 - 46.0 [facility] LABORATORY RDWCV 15.0(H) 11.5 - 14.1 % [facility] MPV 9.8 7.6 - 12.9 [facility] LABORATORY nRBC % Auto 0.0 % [facility] nRBC Abs Auto 0.000 0.000 - 0.000 x10(3)/[facility] LABORATORY Blood 03/25/2023 3:31 AM EDT 03/25/2023 3:44 AM EDT Narrative Resulting Agency Comment Spec In Lab Natalee Winn MD HEMATOLOGY ORDERABLE S [facility] [place] [address] * (ABNORMAL) Comprehensive metabolic panel (non-fasting) (03/25/2023 3:31 AM EDT) Pathologist [facility] Glucose Lvl 94 65 - 199 mg/dL [facility] Comment:Diabetes: >=200 mg/d L plus symptoms BUN 3(L) 8 - 18 mg/dL [facility] [facility] Creatinine 0.61(L) 0.70 - 1.20 mg/dL [facility] Sodium 138 135 - 145 mmol/L [facility] Potassium 3.4(L) 3.5 - 5.0 mmol/L [facility] Comment: Please note: ??Patients with WBC >100,000 may have falsely elevated Potassium levels. ??For accurate Potassium quantification in these patients send serum separator tube (gold top) for subsequent determinations. ??Contact the Clinical Chemistry Laboratory if there are any questions. Chloride 100 98 - 107 mmol/L [facility] CO2 22 22 - 31 mmol/L [facility] Anion Gap 16(H) 5 - 15 mmol/L [facility] Calcium 8.8 8.5 - 10.5 mg/dL [facility] Total Protein 5.6(L) 6.1 - 8.0 g/dL [facility] Albumin 3.2 3.2 - 5.2 g/dL [facility] AST 43(H) 0 - 30 unit/L [facility] ALT 42(H) 0 - 30 unit/L [facility] Alk Phos 115(H) 35 - 105 unit/L [facility] Total Bilirubin 0.6 0.2 - 1.3 mg/dL [facility] Estimated GFR 112 >=60 mL/min/1. 73 m?? [facility] Comment: This patient's estimated GFR [...] Winn MD CHEMISTRY ORDERABLES Performing Organization Address City/[facility] Co de Phone Number [facility] [place] [address] * Phosphorus (03/25/2023 3:31 AM EDT) Phosphorus 3.4 2.5 - 4.5 mg/dL [facility] Blood 03/25/2023 3:31 AM EDT 03/25/2023 3:43 AM EDT Narrative Resulting Agency Comment Spec In Lab Natalee Winn MD CHEMISTRY ORDERABLES Performing Organization Address [facility] Co de Phone Number [facility] [place] [address] * (ABNORMAL) Magnesium (03/25/2023 3:31 AM EDT) Magnesium 0.67(L) 0.69 - 1.07 mmol/L [facility] Blood 03/25/2023 3:31 AM EDT 03/25/2023 3:43 AM EDT Narrative Resulting Agency Comment Spec In Lab Natalee Winn MD CHEMISTRY ORDERABLES Performing Organization Address [facility] Co de Phone Number [facility] [place] [address] * MRI Brain wwo Contrast (Generic) (03/24/2023 [...] who have questions please contact the health critical care registered nurse that requested your imaging first. ? Narrative 03/24/2023 12:20 PM EDT EXAMINATION: MRI BRAIN WWO CONTRAST (GENERIC), MRI ORBIT WWO CONTRAST CLINICAL HISTORY: Dizziness, non-specific dizziness, diplopia, rule out stroke? (accession [id number]), right eye weakness, diplopia, concern for possible inferior rectus infiltration or inflamation vs. possible optic neuritis (accession [id number]). Right-sided weakness, diplopia, concerning for possible inferior [...] non-specific dizziness, diplopia, rule out stroke? (accession [id number]), right eyeweakness, diplopia, concern for possible inferior rectus infiltration or inflamationvs. possible optic neuritis (accession [id number]). Right-sided weakness,diplopia, concerning for possible inferior rectus [...] patients who have questions please contactthe health critical care registered nurse that requested your imaging first. Natalee Winn MD IMG MRI ORDERABLES * [...] who have questions please contact the health critical care registered nurse that requested your imaging first. ? Narrative 03/24/2023 12:20 PM EDT EXAMINATION: MRI BRAIN WWO CONTRAST (GENERIC), MRI ORBIT WWO CONTRAST CLINICAL HISTORY: Dizziness, non-specific dizziness, diplopia, rule out stroke? (accession [id number]), right eye weakness, diplopia, concern for possible inferior rectus infiltration or inflamation vs. possible optic neuritis (accession [id number]). Right-sided weakness, diplopia, concerning for possible inferior [...] non-specific dizziness, diplopia, rule out stroke? (accession [id number]), right eyeweakness, diplopia, concern for possible inferior rectus infiltration or inflamationvs. possible optic neuritis (accession [id number]). Right-sided weakness,diplopia, concerning for possible inferior rectus [...] patients who have questions please contactthe health critical care registered nurse that requested your imaging first. Natalee Winn MD [facility] MRI ORDERABLES * (ABNORMAL) Aspartate Aminotransferase (03/24/2023 5:51 AM EDT) AST 54(H) 0 - 30 unit/L [facility] Blood 03/24/2023 5:51 AM EDT 03/24/2023 6:02 AM EDT Narrative Resulting Agency Comment Spec In Lab Iram Borrero MD CHEMISTRY ORDERABLES [facility] [place] [address] * (ABNORMAL) Alanine Aminotransferase (03/24/2023 5:51 AM EDT) Pathologist [facility] ALT 41(H) 0 - 30 unit/L [facility] Blood 03/24/2023 5:51 AM EDT 03/24/2023 6:02 AM EDT Narrative Resulting Agency Comment Spec In Lab Iram Borrero MD CHEMISTRY ORDERABLES Performing Organization Address [facility] Co de Phone Number [facility] [place] [address] * (ABNORMAL) Potassium (03/24/2023 5:51 AM EDT) [facility] Potassium 3.4(L) 3.5 - 5.0 mmol/L [facility] Comment: Please note: ??Patients with [...] MD CHEMISTRY ORDERABLES Performing Organization Address [facility] Co de Phone Number [facility] [place] [address] * (ABNORMAL) Differential, Automated (03/24/2023 3:51 AM EDT) Pathologist [facility] Neutrophils % 51.7 % [facility] Neutr Abs (ANC) 3.49 1.70 - 6.10 x10(3)/mc L [facility] Lymphocytes % 37.0 % [facility] Lymphocytes Abs 2.5 0.9 - 3.2 x10(3)/mc L [facility] Monocytes % 4.1 % [facility] Monocyte Abs 0.3 0.3 - 0.9 x10(3)/mc L [facility] Eosinophils % 4.3 % [facility] Eosinophils Abs 0.3 0.0 - 0.4 x10(3)/[facility] Basophils % 0.4 % [facility] Basophils Abs 0.0 0.0 - 0.1 x10(3)/[facility] Immature Gran % 2.50 % [facility] Comment: Immature granulocytes(IG's)percentage and absolute count will include metamyelocytes, myelocytes, and promyelocytes. Blood smears from CBCs yielding IG's will be scanned manually for concordance. If this scan disagrees with the automated IG or if promyelocytes are noted, a manual differential will be performed. Reshma Gran Abs 0.17(H) 0.00 - 0.04 x10(3)/[facility] Blood 03/24/2023 3:51 AM EDT 03/24/2023 4:09 AM EDT Narrative Resulting Agency Comment Spec In Lab Natalee Winn MD HEMATOLOGY ORDERABLE S [facility] [place] [address] * (ABNORMAL) Hemogram (03/24/2023 3:51 AM EDT) WBC 6.8 4.0 - 9.5 x10(3)/[facility] RBC 3.69(L) 4.00 - 5.21 x10(6)/[facility] Hemoglobin 10.5(L) 11.7 - 15.5 g/dL [facility] Hematocrit 31.5(L) 35.7 - 45.8 % [facility] MCV 85.4 82.6 - 94.4 fL [facility] MCH 28.5 27.1 - 32.0 pg [facility] MCHC 33.3 31.7 - 35.0 g/dL [facility] Platelets 268 145 - 357 x10(3)/[facility] RDWSD 46.3(H) 37.0 - 46.0 fL [facility] RDWCV 14.8(H) 11.5 - 14.1 % [facility] MPV 9.2 7.6 - 12.9 [facility] nRBC % Auto 0.0 % [facility] nRBC Abs Auto 0.000 0.000 - 0.000 x10(3)/[facility] Blood 03/24/2023 3:51 AM EDT 03/24/2023 4:09 AM EDT Narrative Resulting Agency Comment Spec In Lab Natalee Winn MD HEMATOLOGY ORDERABLE S [facility] [place] [address] * (ABNORMAL) Comprehensive metabolic panel (non-fasting) (03/24/2023 3:51 AM EDT) Glucose Lvl 81 65 - 199 mg/dL [facility] Comment:Diabetes: >=200 mg/d L plus symptoms BUN 5(L) 8 - 18 mg/dL [facility] Creatinine 0.65(L) 0.70 - 1.20 mg/dL [facility] Sodium 141 135 - 145 mmol/L [facility] Potassium Not Perf 3.5 - 5.0 [facility] Comment: Unable to quantitate due [...] questions. Chloride 104 98 - 107 mmol/L [facility] CO2 29 22 - 31 mmol/L [facility] Anion Gap 8 5 - 15 mmol/L [facility] Calcium 8.3(L) 8.5 - 10.5 mg/dL [facility] Total Protein 5.1(L) 6.1 - 8.0 g/dL [facility] Albumin 3.0(L) 3.2 - 5.2 g/dL [facility] AST Not Perf 0 - 30 [facility] Comment: Unable to quantitate due to sample hemolysis. ??Sample redraw suggested. Called by: GUCCI, Read back by: Candelaria Fish, Date/Time:03/24/23 04:45. ALT Not Perf 0 - 30 [facility] Comment: Unable to quantitate due to sample hemolysis. ??Sample redraw suggested. Called by: GUCCI, Read back by: Candelaria Fish, Date/Time:03/24/23 04:45. Alk Phos 103 35 - 105 unit/L [facility] Total Bilirubin 0.7 0.2 - 1.3 mg/dL [facility] Estimated GFR 111 >=60 mL/min/1. 73 m?? [facility] Comment: This patient's estimated GFR [...] In Lab Natalee Winn MD CHEMISTRY ORDERABLES [facility] [place] [address] * Phosphorus (03/24/2023 3:51 AM EDT) [facility] Phosphorus 3.1 2.5 - 4.5 mg/dL [facility] Blood 03/24/2023 3:51 AM EDT 03/24/2023 4:09 AM EDT Narrative Resulting Agency Comment Spec In Lab Natalee Winn MD CHEMISTRY ORDERABLES [facility] [place] [address] * Magnesium (03/24/2023 3:51 AM EDT) [facility] Magnesium 0.75 0.69 - 1.07 mmol/L [facility] Blood 03/24/2023 3:51 AM EDT 03/24/2023 4:09 AM EDT Narrative Resulting Agency Comment Spec In Lab Natalee Winn MD CHEMISTRY ORDERABLES Performing Organization Address City/[facility]/ZIP Co de Phone Number [facility] [place] [address] * (ABNORMAL) Differential, Automated (03/23/2023 8:07 AM EDT) [facility] Neutrophils % 79.5 % [facility] Neutr Abs (ANC) 7.13(H) 1.70 - 6.10 x10(3)/mc L [facility] Lymphocytes % 15.8 % [facility] Lymphocytes Abs 1.4 0.9 - 3.2 x10(3)/mc L [facility] Monocytes % 3.5 % [facility] Monocyte Abs 0.3 0.3 - 0.9 x10(3)/mc L [facility] Eosinophils % 0.1 % [facility] Eosinophils Abs 0.0 0.0 - 0.4 x10(3)/mc L [facility] Basophils % 0.3 % [facility] Basophils Abs 0.0 0.0 - 0.1 x10(3)/[facility] Immature Gran % 0.80 % [facility] Comment: Immature granulocytes(IG's)percentage and absolute count will include metamyelocytes, myelocytes, and promyelocytes. Blood smears from CBCs yielding IG's will be scanned manually for concordance. If this scan disagrees with the automated IG or if promyelocytes are noted, a manual differential will be performed. Reshma Gran Abs 0.07(H) 0.00 - 0.04 x10(3)/[facility] Blood 03/23/2023 8:07 AM EDT 03/23/2023 8:20 AM EDT Narrative Resulting Agency Comment Spec In Lab Natalee Winn MD HEMATOLOGY ORDERABLE S [facility] [place] [address] * (ABNORMAL) Hemogram (03/23/2023 8:07 AM EDT) WBC 9.0 4.0 - 9.5 x10(3)/[facility] RBC 3.52(L) 4.00 - 5.21 x10(6)/[facility] Hemoglobin 10.2(L) 11.7 - 15.5 g/dL [facility] Hematocrit 30.2(L) 35.7 - 45.8 % [facility] MCV 85.8 82.6 - 94.4 fL [facility] MCH 29.0 27.1 - 32.0 pg [facility] MCHC 33.8 31.7 - 35.0 g/dL [facility] Platelets 268 145 - 357 x10(3)/[facility] RDWSD 46.7(H) 37.0 - 46.0 fL [facility] RDWCV 14.9(H) 11.5 - 14.1 % [facility] MPV 9.6 7.6 - 12.9 fL [facility] nRBC % Auto 0.0 % [facility] nRBC Abs Auto 0.000 0.000 - 0.000 x10(3)/mcL [facility] Blood 03/23/2023 8:07 AM EDT 03/23/2023 8:20 AM EDT Narrative Resulting Agency Comment Spec In Lab Natalee Winn MD HEMATOLOGY ORDERABLE S [facility] [place] [address] * (ABNORMAL) Differential, Automated (03/23/2023 3:39 AM EDT) Neutrophils % 87.3 % [facility] Neutr Abs (ANC) 6.54(H) 1.70 - 6.10 x10(3)/mc L [facility] Lymphocytes % 9.7 % [facility] Lymphocytes Abs 0.7(L) 0.9 - 3.2 x10(3)/ L [facility] Monocytes % 2.0 % [facility] Monocyte Abs 0.2(L) 0.3 - 0.9 x10(3)/mc L [facility] Eosinophils % 0.1 % [facility] Eosinophils Abs 0.0 0.0 - 0.4 x10(3)/mc L [facility] Basophils % 0.1 % [facility] Basophils Abs 0.0 0.0 - 0.1 x10(3)/mc L [facility] Immature Gran % 0.80 % [facility] Comment: Immature granulocytes(IG's)percentage and absolute count will include metamyelocytes, myelocytes, and promyelocytes. Blood smears from CBCs yielding IG's will be scanned manually for concordance. If this scan disagrees with the automated IG or if promyelocytes are noted, a manual differential will be performed. Reshma Gran Abs 0.06(H) 0.00 - 0.04 x10(3)/ L [facility] Blood 03/23/2023 3:39 AM EDT 03/23/2023 3:49 AM EDT Narrative Resulting Agency Comment Spec In Lab Natalee Winn MD HEMATOLOGY ORDERABLE S [facility] [place] [address] * (ABNORMAL) Hemogram (03/23/2023 3:39 AM EDT) WBC 7.5 4.0 - 9.5 x10(3)/[facility] RBC 3.72(L) 4.00 - 5.21 x10(6)/[facility] Hemoglobin 10.5(L) 11.7 - 15.5 g/dL [facility] Hematocrit 31.8(L) 35.7 - 45.8 % [facility] MCV 85.5 82.6 - 94.4 [facility] MCH 28.2 27.1 - 32.0 pg [facility] MCHC 33.0 31.7 - 35.0 g/dL [facility] Platelets 263 145 - 357 x10(3)/[facility] RDWSD 47.2(H) 37.0 - 46.0 [facility] RDWCV 14.9(H) 11.5 - 14.1 % [facility] MPV 9.4 7.6 - 12.9 [facility] nRBC % Auto 0.0 % [facility] nRBC Abs Auto 0.000 0.000 - 0.000 x10(3)/[facility] Blood 03/23/2023 3:39 AM EDT 03/23/2023 3:49 AM EDT Narrative Resulting Agency Comment Spec In Lab Natalee Winn MD HEMATOLOGY ORDERABLE S [facility] [place] [address] * (ABNORMAL) Comprehensive metabolic panel (non-fasting) (03/23/2023 3:39 AM EDT) Glucose Lvl 111 65 - 199 mg/dL [facility] Comment:Diabetes: >=200 mg/d L plus symptoms BUN 6(L) 8 - 18 mg/dL [facility] Creatinine 0.61(L) 0.70 - 1.20 mg/dL [facility] Sodium 139 135 - 145 mmol/L [facility] Potassium 4.3 3.5 - 5.0 mmol/L [facility] Comment: Please note: ??Patients with WBC >100,000 may have falsely elevated Potassium levels. ??For accurate Potassium quantification in these patients send serum separator tube (gold top) for subsequent determinations. ??Contact the Clinical Chemistry Laboratory if there are any questions. Chloride 103 98 - 107 mmol/L [facility] CO2 27 22 - 31 mmol/L [facility] Anion Gap 9 5 - 15 mmol/L [facility] Calcium 8.8 8.5 - 10.5 mg/dL [facility] Total Protein 5.4(L) 6.1 - 8.0 g/dL [facility] Albumin 3.2 3.2 - 5.2 g/dL [facility] AST 39(H) 0 - 30 unit/L [facility] ALT 37(H) 0 - 30 unit/L [facility] Alk Phos 107(H) 35 - 105 unit/L [facility] Total Bilirubin 0.7 0.2 - 1.3 mg/dL [facility] Estimated GFR 112 >=60 mL/min/1. 73 m?? [facility] Comment: This patient's estimated GFR [...] Winn MD CHEMISTRY ORDERABLES Performing Organization Address [facility] de Phone Number [facility] [place] [address] * Phosphorus (03/23/2023 3:39 AM EDT) Phosphorus 3.4 2.5 - 4.5 mg/dL [facility] Blood 03/23/2023 3:39 AM EDT 03/23/2023 3:49 AM EDT Narrative Resulting Agency Comment Spec In Lab Natalee Winn MD CHEMISTRY ORDERABLES Performing Organization Address [facility] Co de Phone Number [facility] [place] [address] * Magnesium (03/23/2023 3:39 AM EDT) Magnesium 0.80 0.69 - 1.07 mmol/L [facility] Blood 03/23/2023 3:39 AM EDT 03/23/2023 3:49 AM EDT Narrative Resulting Agency Comment Spec In Lab Natalee Winn MD CHEMISTRY ORDERABLES Performing Organization Address [facility]/ZIP Co de Phone Number [facility] [place] [address] * POCT Glucose (03/22/2023 9:46 PM EDT) POC Glucose 85 65 - 199 mg/dL [facility] Comment: Supplemental ranges: <140 mg/dL before meals <180 mg/dL all other times of the day Blood 03/22/2023 9:46 PM EDT 03/22/2023 9:46 PM EDT Iram Borrero MD POINT OF CARE TEST O RDERABLES Performing Organization Address City/[facility]/ZIP Co de Phone Number [facility] [place] [address] * POCT Glucose (03/22/2023 2:32 PM EDT) POC Glucose 90 65 - 199 mg/dL [facility] Comment: Supplemental ranges: <140 mg/dL before meals <180 mg/dL all other times of the day Blood 03/22/2023 2:32 PM EDT 03/22/2023 2:32 PM EDT Iram Borrero MD POINT OF CARE TEST O RDERABLES Performing Organization Address City/[facility]/ZIP Co de Phone Number [facility] [place] [address] * (ABNORMAL) Differential, Automated (03/22/2023 4:17 AM EDT) Neutrophils % 50.0 % [facility] Neutr Abs (ANC) 4.00 1.70 - 6.10 x10(3)/mc L [facility] Lymphocytes % 42.9 % [facility] Lymphocytes Abs 3.4(H) 0.9 - 3.2 x10(3)/mc L [facility] Monocytes % 5.1 % [facility] Monocyte Abs 0.4 0.3 - 0.9 x10(3)/mc L [facility] Eosinophils % 1.2 % [facility] Eosinophils Abs 0.1 0.0 - 0.4 x10(3)/[facility] LABOR[facility]ORY Basophils % 0.2 % [facility] Basophils Abs 0.0 0.0 - 0.1 x10(3)/[facility] LABOR[facility]ORY Immature Gran % 0.60 % [facility] Comment: Immature granulocytes(IG's)percentage and absolute count will include metamyelocytes, myelocytes, and promyelocytes. Blood smears from CBCs yielding IG's will be scanned manually for concordance. If this scan disagrees with the automated IG or if promyelocytes are noted, a manual differential will be performed. Reshma Gran Abs 0.05(H) 0.00 - 0.04 x10(3)/[facility] LAB[facility] Blood 03/22/2023 4:17 AM EDT 03/22/2023 4:29 AM EDT Narrative Resulting Agency Comment Spec In Lab Lisandro Araya MD HEMATOLOGY ORDERABLE S [facility] [place] [address] * (ABNORMAL) Hemogram (03/22/2023 4:17 AM EDT) WBC 8.0 4.0 - 9.5 x10(3)/[facility] LABORATORY RBC 4.41 4.00 - 5.21 x10(6)/[facility] LAB[facility]ORY Hemoglobin 12.6 11.7 - 15.5 g/dL [facility] Hematocrit 37.3 35.7 - 45.8 % [facility] MCV 84.6 82.6 - 94.4 fL [facility] MCH 28.6 27.1 - 32.0 pg [facility] MCHC 33.8 31.7 - 35.0 g/dL [facility] Platelets 384(H) 145 - 357 x10(3)/[facility] RDWSD 44.9 37.0 - 46.0 fL [facility] RDWCV 14.6(H) 11.5 - 14.1 % [facility] MPV 9.5 7.6 - 12.9 fL [facility] nRBC % Auto 0.0 % [facility] nRBC Abs Auto 0.000 0.000 - 0.000 x10(3)/[facility] Blood 03/22/2023 4:17 AM EDT 03/22/2023 4:29 AM EDT Narrative Resulting Agency Comment Spec In Lab Lisandro Araya MD HEMATOLOGY ORDERABLE S [facility] [place] [address] * (ABNORMAL) Comprehensive metabolic panel (non-fasting) (03/22/2023 4:17 AM EDT) Glucose Lvl 101 65 - 199 mg/dL [facility] Comment:Diabetes: >=200 mg/d L plus symptoms BUN 7(L) 8 - 18 mg/dL [facility] Creatinine 0.69(L) 0.70 - 1.20 mg/dL [facility] Sodium 140 135 - 145 mmol/L [facility] Potassium 3.4(L) 3.5 - 5.0 mmol/L [facility] Comment: Please note: ??Patients with WBC >100,000 may have falsely elevated Potassium levels. ??For accurate Potassium quantification in these patients send serum separator tube (gold top) for subsequent determinations. ??Contact the Clinical Chemistry Laboratory if there are any questions. Chloride 98 98 - 107 mmol/L [facility] CO2 32(H) 22 - 31 mmol/L [facility] Anion Gap 10 5 - 15 mmol/L [facility] Calcium 9.0 8.5 - 10.5 mg/dL [facility] Total Protein 6.2 6.1 - 8.0 g/dL [facility] Albumin 3.8 3.2 - 5.2 g/dL [facility] LABORATORY AST 30 0 - 30 unit/L [facility] ALT 37(H) 0 - 30 unit/L [facility] Alk Phos 118(H) 35 - 105 unit/L [facility] Total Bilirubin 0.9 0.2 - 1.3 mg/dL [facility] Estimated GFR 109 >=60 mL/min/1. 73 m?? [facility] Comment: This patient's estimated GFR [...] Winn MD CHEMISTRY ORDERABLES Performing Organization Address City/[facility]/ZIP Co de Phone Number [facility] [place] [address] * Phosphorus (03/22/2023 4:17 AM EDT) Phosphorus 3.1 2.5 - 4.5 mg/dL [facility] Blood 03/22/2023 4:17 AM EDT 03/22/2023 4:29 AM EDT Narrative Resulting Agency Comment Spec In Lab Natalee Winn MD CHEMISTRY ORDERABLES Performing Organization Address City/[facility]/ZIP Co de Phone Number [facility] [place] [address] * Magnesium (03/22/2023 4:17 AM EDT) Magnesium 0.94 0.69 - 1.07 mmol/L [facility] Blood 03/22/2023 4:17 AM EDT 03/22/2023 4:29 AM EDT Narrative Resulting Agency Comment Spec In Lab Natalee Winn MD CHEMISTRY ORDERABLES [facility] [place] [address] * Vitamin B12 (03/21/2023 6:00 PM EDT) Vitamin B-12 612 232 - 1,245 pg/mL [facility] Blood 03/21/2023 6:00 PM EDT 03/21/2023 6:13 PM EDT Narrative Resulting Agency Comment Spec In Lab Iram Borrero MD CHEMISTRY ORDERABLES Performing Organization Address City/[facility]/ZIP Co de Phone Number [facility] [place] [address] * (ABNORMAL) Folate, serum (03/21/2023 6:00 PM EDT) Folate Lvl 4.0(L) 4.8 - 24.2 ng/mL [facility] Blood 03/21/2023 6:00 PM EDT 03/21/2023 6:13 PM EDT Narrative Resulting Agency Comment Spec In Lab Iram Borrero MD CHEMISTRY ORDERABLES [facility] [place] [address] * (ABNORMAL) Vitamin B1, whole blood (03/21/2023 6:00 PM EDT) Vit B1 Lvl WB 32(L) 70 - 180 nmol/L [facility] Comment: ADDITIONAL INFORMATION This test was developed and its performance characteristics determined by [facility] in a manner consistent with CLIA requirements. This test has not been cleared or approved by the U.S. Food and Drug Administration. Test Performed by: [facility] [address] [place] [address] Prosthetic Assistant: Erlin Orlando M.D. Ph.D.; CLIA# [id number] Blood 03/21/2023 6:00 PM EDT 03/22/2023 12:57 PM EDT Narrative Resulting Agency Comment Spec In Lab Iram Borrero MD CHEMISTRY ORDERABLES [facility] [place] [address] * CT Head wo Contrast (Generic) (03/21/2023 [...] who have questions please contact the health critical care registered nurse that requested your imaging first. ? Electronically signed by: Erlin Castorena DO, [facility] ??([phone]), at 03/21/2023 12:49 PM Narrative 03/21/2023 12:49 [...] patients who have questions please contactthe health critical care registered nurse that requested your imaging first. Iram Borrero MD [facility] CT ORDERABLES * (ABNORMAL) Differential, Automated (03/21/2023 3:46 AM EDT) Neutrophils % 66.3 % [facility] Neutr Abs (ANC) 5.44 1.70 - 6.10 x10(3)/mc L [facility] Lymphocytes % 25.6 % [facility] Lymphocytes Abs 2.1 0.9 - 3.2 x10(3)/mc L [facility] Monocytes % 5.6 % [facility] Monocyte Abs 0.5 0.3 - 0.9 x10(3)/[facility] LABORATORY Eosinophils % 1.1 % [facility] Eosinophils Abs 0.1 0.0 - 0.4 x10(3)/[facility] LABORATORY Basophils % 0.5 % [facility] Basophils Abs 0.0 0.0 - 0.1 x10(3)/[facility] LABORATORY Immature Gran % 0.90 % [facility] Comment: Immature granulocytes(IG's)percentage and absolute count will include metamyelocytes, myelocytes, and promyelocytes. Blood smears from CBCs yielding IG's will be scanned manually for concordance. If this scan disagrees with the automated IG or if promyelocytes are noted, a manual differential will be performed. Reshma Gran Abs 0.07(H) 0.00 - 0.04 x10(3)/[facility] LABORATORY Blood 03/21/2023 3:46 AM EDT 03/21/2023 4:07 AM EDT Narrative Resulting Agency Comment Spec In Lab Lisandro Araya MD HEMATOLOGY ORDERABLE S Performing Organization Address City/State/[facility] Co de Phone Number [facility] [place] [address] * (ABNORMAL) Hemogram (03/21/2023 3:46 AM EDT) WBC 8.2 4.0 - 9.5 x10(3)/[facility] LABORATORY RBC 4.60 4.00 - 5.21 x10(6)/[facility] LABORATORY Hemoglobin 13.3 11.7 - 15.5 g/dL [facility] Hematocrit 37.6 35.7 - 45.8 % [facility] MCV 81.7(L) 82.6 - 94.4 fL [facility] MCH 28.9 27.1 - 32.0 pg [facility] MCHC 35.4(H) 31.7 - 35.0 g/dL [facility] Platelets 322 145 - 357 x10(3)/[facility] LABORATORY RDWSD 44.0 37.0 - 46.0 [facility] LABORATORY RDWCV 14.8(H) 11.5 - 14.1 % [facility] MPV 9.1 7.6 - 12.9 [facility] LABORATORY nRBC % Auto 0.0 % [facility] nRBC Abs Auto 0.000 0.000 - 0.000 x10(3)/[facility] LABORATORY Blood 03/21/2023 3:46 AM EDT 03/21/2023 4:07 AM EDT Narrative Resulting Agency Comment Spec In Lab Lisandro Araya MD HEMATOLOGY ORDERABLE S [facility] [place] [address] * (ABNORMAL) Comprehensive metabolic panel (non-fasting) (03/21/2023 3:46 AM EDT) Glucose Lvl 105 65 - 199 mg/dL [facility] Comment:Diabetes: >=200 mg/d L plus symptoms BUN 6(L) 8 - 18 mg/dL [facility] Creatinine 0.54(L) 0.70 - 1.20 mg/dL [facility] Sodium 135 135 - 145 mmol/L [facility] Potassium 3.8 3.5 - 5.0 mmol/L [facility] Comment: Please note: ??Patients with WBC >100,000 may have falsely elevated Potassium levels. ??For accurate Potassium quantification in these patients send serum separator tube (gold top) for subsequent determinations. ??Contact the Clinical Chemistry Laboratory if there are any questions. Chloride 98 98 - 107 mmol/L [facility] CO2 27 22 - 31 mmol/L [facility] Anion Gap 10 5 - 15 mmol/L [facility] Calcium 8.4(L) 8.5 - 10.5 mg/dL [facility] Total Protein 6.0(L) 6.1 - 8.0 g/dL [facility] Albumin 3.6 3.2 - 5.2 g/dL [facility] AST 24 0 - 30 unit/L [facility] ALT 43(H) 0 - 30 unit/L [facility] Alk Phos 116(H) 35 - 105 unit/L [facility] Total Bilirubin 0.9 0.2 - 1.3 mg/dL [facility] Estimated GFR 116 >=60 mL/min/1. 73 m?? [facility] Comment: This patient's estimated GFR [...] Winn MD CHEMISTRY ORDERABLES Performing Organization Address [facility] Co de Phone Number [facility] [place] [address] * Phosphorus (03/21/2023 3:46 AM EDT) Phosphorus 3.0 2.5 - 4.5 mg/dL [facility] Blood 03/21/2023 3:46 AM EDT 03/21/2023 4:07 AM EDT Narrative Resulting Agency Comment Spec In Lab Natalee Winn MD CHEMISTRY ORDERABLES Performing Organization Address [facility]/ZIP Co de Phone Number [facility] [place] [address] * Magnesium (03/21/2023 3:46 AM EDT) Magnesium 0.81 0.69 - 1.07 mmol/L [facility] Blood 03/21/2023 3:46 AM EDT 03/21/2023 4:07 AM EDT Narrative Resulting Agency Comment Spec In Lab Natalee Winn MD CHEMISTRY ORDERABLES Performing Organization Address [facility] Co de Phone Number [facility] [place] [address] * (ABNORMAL) IgG 4 (03/21/2023 3:46 AM EDT) Pathologist [facility] IgG 4 2.7(L) 3.9 - 86.4 mg/dL [facility] Blood 03/21/2023 3:46 AM EDT 03/21/2023 4:07 AM EDT Narrative Resulting Agency Comment Spec In Lab Natalee Winn MD IMMUNOLOGY ORDERABLE S Performing Organization Address [facility] de Phone Number [facility] [place] [address] * POCT Glucose (03/21/2023 3:45 AM EDT) Pathologist [facility] POC Glucose 97 65 - 199 mg/dL [facility] Comment: Supplemental ranges: <140 mg/dL before meals <180 mg/dL all other times of the day Blood 03/21/2023 3:45 AM EDT 03/21/2023 3:45 AM EDT Iram Borrero MD POINT OF CARE TEST O RDERABLES Performing Organization Address [facility] Co de Phone Number [facility] [place] [address] * POCT Glucose (03/21/2023 12:02 AM EDT) POC Glucose 108 65 - 199 mg/dL [facility] Comment: Supplemental ranges: <140 mg/dL before meals <180 mg/dL all other times of the day Blood 03/21/2023 12:0 2 AM EDT 03/21/2023 12:02 AM EDT Iram Borrero MD POINT OF CARE TEST Maribel GALVAN Performing Organization Address [facility] de Phone Number [facility] [place] [address] * POCT Glucose (03/20/2023 9:38 PM EDT) POC Glucose 95 65 - 199 mg/dL [facility] Comment: Supplemental ranges: <140 mg/dL before meals <180 mg/dL all other times of the day Blood 03/20/2023 9:38 PM EDT 03/20/2023 9:38 PM EDT Iram Borrero MD POINT OF CARE TEST Maribel GALVAN Performing Organization Address [facility] de Phone Number [facility] [place] [address] * UPPER GI ENDOSCOPY (03/20/2023 10:26 AM EDT) UPPER GI ENDOSCOPY [facility] Endoscopy Procedure Date: 03/20/2023 10:26 AM ? Patient Name: Leandra Wilks ? Date of : 1980 ? Age: 43 ? Order #: [id number] ? Instrument Name: [id number] ? Procedure: ? Upper GI endoscopy Indications: [...] appearing mucosa. This was traversed. The ? [id number] limb was characterized by healthy ? appearing [...] AM EDT Unknown GENERAL SURGICAL ORD ERABLES [facility] * (ABNORMAL) Hepatic Function Panel (03/20/2023 2:32 AM EDT) Total Protein 5.8(L) 6.1 - 8.0 g/dL [facility] Albumin 3.4 3.2 - 5.2 g/dL [facility] AST 42(H) 0 - 30 unit/L [facility] ALT 57(H) 0 - 30 unit/L [facility] Alk Phos 111(H) 35 - 105 unit/L [facility] Total Bilirubin 1.0 0.2 - 1.3 mg/dL [facility] Bili, Direct 0.4(H) 0.0 - 0.3 mg/dL [facility] Blood Venous Draw / Unknown 03/20/2023 2:32 AM EDT 03/20/2023 2:56 AM EDT Narrative Resulting Agency Comment Spec In Lab Dick Bower MD CHEMISTRY ORDERABLES [facility] [place] [address] * (ABNORMAL) Differential, Automated (03/20/2023 2:32 AM EDT) Neutrophils % 57.4 % [facility] Neutr Abs (ANC) 3.08 1.70 - 6.10 x10(3)/[facility] LABORATORY Lymphocytes % 32.5 % [facility] Lymphocytes Abs 1.7 0.9 - 3.2 x10(3)/[facility] LABORATORY Monocytes % 7.1 % [facility] Monocyte Abs 0.4 0.3 - 0.9 x10(3)/[facility] LABORATORY Eosinophils % 1.3 % [facility] Eosinophils Abs 0.1 0.0 - 0.4 x10(3)/[facility] LABORATORY Basophils % 0.6 % [facility] Basophils Abs 0.0 0.0 - 0.1 x10(3)/[facility] LABORATORY Immature Gran % 1.10 % [facility] Comment: Immature granulocytes(IG's)percentage and absolute count will include metamyelocytes, myelocytes, and promyelocytes. Blood smears from CBCs yielding IG's will be scanned manually for concordance. If this scan disagrees with the automated IG or if promyelocytes are noted, a manual differential will be performed. Reshma Gran Abs 0.06(H) 0.00 - 0.04 x10(3)/[facility] LABORATORY Blood 03/20/2023 2:32 AM EDT 03/20/2023 2:54 AM EDT Narrative Resulting Agency Comment Spec In Lab Lisandro Araya MD HEMATOLOGY ORDERABLE S [facility] [place] [address] * (ABNORMAL) Hemogram (03/20/2023 2:32 AM EDT) WBC 5.4 4.0 - 9.5 x10(3)/[facility] LABORATORY RBC 4.23 4.00 - 5.21 x10(6)/[facility] LABORATORY Hemoglobin 12.1 11.7 - 15.5 g/dL [facility] Hematocrit 35.0(L) 35.7 - 45.8 % [facility] MCV 82.7 82.6 - 94.4 fL [facility] MCH 28.6 27.1 - 32.0 pg [facility] MCHC 34.6 31.7 - 35.0 g/dL [facility] Platelets 319 145 - 357 x10(3)/[facility] LABORATORY RDWSD 44.6 37.0 - 46.0 [facility] LABORATORY RDWCV 14.7(H) 11.5 - 14.1 % [facility] MPV 9.2 7.6 - 12.9 [facility] LABORATORY nRBC % Auto 0.0 % [facility] nRBC Abs Auto 0.000 0.000 - 0.000 x10(3)/[facility] LABORATORY Blood 03/20/2023 2:32 AM EDT 03/20/2023 2:54 AM EDT Narrative Resulting Agency Comment Spec In Lab Lisandro Araya MD HEMATOLOGY ORDERABLE S [facility] [place] [address] * Phosphorus (03/20/2023 2:32 AM EDT) Phosphorus 3.6 2.5 - 4.5 mg/dL [facility] Blood 03/20/2023 2:32 AM EDT 03/20/2023 2:53 AM EDT Narrative Resulting Agency Comment Spec In Lab Natalee Winn MD CHEMISTRY ORDERABLES Performing Organization Address City/[facility]/ZIP Co de Phone Number [facility] [place] [address] * Magnesium (03/20/2023 2:32 AM EDT) Magnesium 0.83 0.69 - 1.07 mmol/L [facility] Blood 03/20/2023 2:32 AM EDT 03/20/2023 2:53 AM EDT Narrative Resulting Agency Comment Spec In Lab Natalee Winn MD CHEMISTRY ORDERABLES Performing Organization Address [facility] Co de Phone Number [facility] [place] [address] * (ABNORMAL) Basic Metabolic Panel (non-fasting) (03/20/2023 2:32 AM EDT) Glucose Lvl 122 65 - 199 mg/dL [facility] Comment:Diabetes: >=200 mg/d L plus symptoms BUN 4(L) 8 - 18 mg/dL [facility] Creatinine 0.42(L) 0.70 - 1.20 mg/dL [facility] Sodium 134(L) 135 - 145 mmol/L [facility] Potassium 4.1 3.5 - 5.0 mmol/L [facility] Comment: Please note: ??Patients with WBC >100,000 may have falsely elevated Potassium levels. ??For accurate Potassium quantification in these patients send serum separator tube (gold top) for subsequent determinations. ??Contact the Clinical Chemistry Laboratory if there are any questions. Chloride 97(L) 98 - 107 mmol/L [facility] CO2 26 22 - 31 mmol/L [facility] Anion Gap 11 5 - 15 mmol/L [facility] Calcium 8.1(L) 8.5 - 10.5 mg/dL [facility] Estimated GFR 123 >=60 mL/min/1. 73 m?? [facility] Comment: This patient's estimated GFR [...] Borrero MD CHEMISTRY ORDERABLES Performing Organization Address City/State/[facility] Co de Phone Number [facility] [place] [address] * MRI Cholangiopancreatography WO Contrast (03/19/2023 5:40 [...] who have questions please contact the health critical care registered nurse that requested your imaging first. ? Narrative 03/20/2023 7:59 AM EDT EXAMINATION: MRI [...] visceral organs, gastrointestinal tract, and vascular structures. Metal Coater Images: Noncontributory. Inferior thorax: Visualized structures within [...] focal marrow signal abnormality. Procedure Note Maximo Forrest DO - 03/20/2023 EXAMINATION: MRI CHOLANGIOPANCREATOGRAPHY WO CONSTRAST [...] thevisceral organs, gastrointestinal tract, and vascular structures. Metal Coater Images: Noncontributory. Inferior thorax: Visualized structures within [...] patients who have questions please contactthe health critical care registered nurse that requested your imaging first. Iram Borrero MD IMG MRI ORDERABLES * (ABNORMAL) Phosphorus (03/19/2023 3:32 PM EDT) Phosphorus 2.3(L) 2.5 - 4.5 mg/dL [facility] Comment:result rechecked-nb Blood 03/19/2023 3:32 PM EDT 03/19/2023 3:53 PM EDT Narrative Resulting Agency Comment Spec In Lab Iram Borreor MD CHEMISTRY ORDERABLES Performing Organization Address [facility] Co de Phone Number [facility] [place] [address] * (ABNORMAL) Magnesium (03/19/2023 3:32 PM EDT) Magnesium 0.63(L) 0.69 - 1.07 mmol/L [facility] Blood 03/19/2023 3:32 PM EDT 03/19/2023 3:53 PM EDT Narrative Resulting Agency Comment Spec In Lab Iram Borrero MD CHEMISTRY ORDERABLES Performing Organization Address [facility]/ZIP Co de Phone Number [facility] [place] [address] * (ABNORMAL) Basic Metabolic Panel (non-fasting) (03/19/2023 3:32 PM EDT) Glucose Lvl 100 65 - 199 mg/dL [facility] Comment:Diabetes: >=200 mg/d L plus symptoms BUN 5(L) 8 - 18 mg/dL [facility] Creatinine 0.40(L) 0.70 - 1.20 mg/dL [facility] Sodium 135 135 - 145 mmol/L [facility] Potassium 4.1 3.5 - 5.0 mmol/L [facility] Comment: Please note: ??Patients with WBC >100,000 may have falsely elevated Potassium levels. ??For accurate Potassium quantification in these patients send serum separator tube (gold top) for subsequent determinations. ??Contact the Clinical Chemistry Laboratory if there are any questions. Chloride 97(L) 98 - 107 mmol/L [facility] CO2 26 22 - 31 mmol/L [facility] Anion Gap 12 5 - 15 mmol/L [facility] Calcium 8.6 8.5 - 10.5 mg/dL [facility] Estimated GFR 124 >=60 mL/min/1. 73 m?? [facility] Comment: This patient's estimated GFR [...] In Lab Iram Borrero MD CHEMISTRY ORDERABLES [facility] [place] [address] * XR Fluoro Barium Swallow (Double Contrast) [...] who have questions please contact the health critical care registered nurse that requested your imaging first. ? Narrative 03/19/2023 1:29 PM EDT EXAMINATION: XR [...] patients who have questions please contactthe health critical care registered nurse that requested your imaging first. Iram Borrero MD IMG FLUORO ORDERABLE S * POCT Glucose (03/19/2023 11:44 AM EDT) POC Glucose 93 65 - 199 mg/dL [facility] Comment: Supplemental ranges: <140 mg/dL before meals <180 mg/dL all other times of the day Blood 03/19/2023 11:4 4 AM EDT 03/19/2023 11:44 AM EDT Iram Borrero MD POINT OF CARE TEST O RDERABLES [facility] [place] [address] * POCT Glucose (03/19/2023 7:42 AM EDT) POC Glucose 92 65 - 199 mg/dL [facility] Comment: Supplemental ranges: <140 mg/dL before meals <180 mg/dL all other times of the day Blood 03/19/2023 7:42 AM EDT 03/19/2023 7:42 AM EDT Iram Borrero MD POINT OF CARE TEST O RDERABLES [facility] [place] [address] * (ABNORMAL) Differential, Automated (03/19/2023 3:49 AM EDT) Neutrophils % 63.3 % [facility] Neutr Abs (ANC) 5.94 1.70 - 6.10 x10(3)/ L [facility] Lymphocytes % 27.2 % [facility] Lymphocytes Abs 2.6 0.9 - 3.2 x10(3)/[facility] LABORATORY Monocytes % 7.2 % [facility] Monocyte Abs 0.7 0.3 - 0.9 x10(3)/[facility] LABORATORY Eosinophils % 1.5 % [facility] Eosinophils Abs 0.1 0.0 - 0.4 x10(3)/[facility] LABORATORY Basophils % 0.3 % [facility] Basophils Abs 0.0 0.0 - 0.1 x10(3)/[facility] LABORATORY Immature Gran % 0.50 % [facility] Comment: Immature granulocytes(IG's)percentage and absolute count will include metamyelocytes, myelocytes, and promyelocytes. Blood smears from CBCs yielding IG's will be scanned manually for concordance. If this scan disagrees with the automated IG or if promyelocytes are noted, a manual differential will be performed. Reshma Gran Abs 0.05(H) 0.00 - 0.04 x10(3)/ L [facility] Blood 03/19/2023 3:49 AM EDT 03/19/2023 4:00 AM EDT Narrative Resulting Agency Comment Spec In Lab Dick Bower MD HEMATOLOGY ORDERABLE S Performing Organization Address City/[facility]/ZIP Co de Phone Number [facility] [place] [address] * (ABNORMAL) Hemogram (03/19/2023 3:49 AM EDT) Pathologist [facility] WBC 9.4 4.0 - 9.5 x10(3)/[facility] LABORATORY RBC 4.10 4.00 - 5.21 x10(6)/[facility] LABORATORY Hemoglobin 12.0 11.7 - 15.5 g/dL [facility] Hematocrit 32.9(L) 35.7 - 45.8 % [facility] MCV 80.2(L) 82.6 - 94.4 fL [facility] MCH 29.3 27.1 - 32.0 pg [facility] MCHC 36.5(H) 31.7 - 35.0 g/dL [facility] Platelets 272 145 - 357 x10(3)/[facility] LABORATORY RDWSD 42.3 37.0 - 46.0 [facility] LABORATORY RDWCV 14.3(H) 11.5 - 14.1 % [facility] MPV 9.4 7.6 - 12.9 fL [facility] nRBC % Auto 0.2 % [facility] nRBC Abs Auto 0.020(H) 0.000 - 0.000 x10(3)/[facility] LABORATORY Blood 03/19/2023 3:49 AM EDT 03/19/2023 4:00 AM EDT Narrative Resulting Agency Comment Spec In Lab Dick Bower MD HEMATOLOGY ORDERABLE S [facility] [place] [address] * (ABNORMAL) Phosphorus (03/19/2023 3:49 AM EDT) Pathologist [facility] Phosphorus 1.0(Critic al) 2.5 - 4.5 mg/dL [facility] [facility] Comment:called by [facility]/allyn b ack by joann rouse/ [phone] Blood 03/19/2023 3:49 AM EDT 03/19/2023 3:59 AM EDT Narrative Resulting Agency Comment Spec In Lab Natalee Winn MD CHEMISTRY ORDERABLES Performing Organization Address City/[facility]/ZIP Co de Phone Number [facility] [place] [address] * Magnesium (03/19/2023 3:49 AM EDT) Magnesium 0.69 0.69 - 1.07 mmol/L [facility] Blood 03/19/2023 3:49 AM EDT 03/19/2023 3:59 AM EDT Narrative Resulting Agency Comment Spec In Lab Natalee Winn MD CHEMISTRY ORDERABLES Performing Organization Address [facility] Co de Phone Number [facility] [place] [address] * (ABNORMAL) Basic Metabolic Panel (non-fasting) (03/19/2023 3:49 AM EDT) Glucose Lvl 84 65 - 199 mg/dL [facility] Comment:Diabetes: >=200 mg/d L plus symptoms BUN 8 8 - 18 mg/dL [facility] Creatinine 0.41(L) 0.70 - 1.20 mg/dL [facility] Sodium 135 135 - 145 mmol/L [facility] Potassium 3.1(L) 3.5 - 5.0 mmol/L [facility] Comment: Please note: ??Patients with WBC >100,000 may have falsely elevated Potassium levels. ??For accurate Potassium quantification in these patients send serum separator tube (gold top) for subsequent determinations. ??Contact the Clinical Chemistry Laboratory if there are any questions. Chloride 97(L) 98 - 107 mmol/L [facility] CO2 27 22 - 31 mmol/L [facility] Anion Gap 11 5 - 15 mmol/L [facility] Calcium 8.7 8.5 - 10.5 mg/dL [facility] Estimated GFR 124 >=60 mL/min/1. 73 m?? [facility] Comment: This patient's estimated GFR [...] Borrero MD CHEMISTRY ORDERABLES Performing Organization Address City/[facility]/ZIP Co de Phone Number [facility] [place] [address] * POCT Glucose (03/19/2023 3:32 AM EDT) POC Glucose 104 65 - 199 mg/dL [facility] Comment: Supplemental ranges: <140 mg/dL before meals <180 mg/dL all other times of the day Blood 03/19/2023 3:32 AM EDT 03/19/2023 3:32 AM EDT Iram Borrero MD POINT OF CARE TEST O RDERABLES [facility] [place] [address] * POCT Glucose (03/19/2023 2:38 AM EDT) POC Glucose 91 65 - 199 mg/dL [facility] Comment: Supplemental ranges: <140 mg/dL before meals <180 mg/dL all other times of the day Blood 03/19/2023 2:38 AM EDT 03/19/2023 2:38 AM EDT Iram Borrero MD POINT OF CARE TEST O MANDY Performing Organization Address [facility] Co de Phone Number [facility] [place] [address] * POCT Glucose (03/19/2023 1:22 AM EDT) POC Glucose 151 65 - 199 mg/dL [facility] Comment: Supplemental ranges: <140 mg/dL before meals <180 mg/dL all other times of the day Blood 03/19/2023 1:22 AM EDT 03/19/2023 1:22 AM EDT Iram Borrero MD POINT OF CARE TEST O MANDY Performing Organization Address [facility] Co de Phone Number [facility] [place] [address] * POCT Glucose (03/19/2023 12:30 AM EDT) POC Glucose 140 65 - 199 mg/dL [facility] Comment: Supplemental ranges: <140 mg/dL before meals <180 mg/dL all other times of the day Blood 03/19/2023 12:3 0 AM EDT 03/19/2023 12:30 AM EDT Iram Borrero MD POINT OF CARE TEST O MANDY Performing Organization Address [facility] Co de Phone Number [facility] [place] [address] * (ABNORMAL) BLOOD GAS 2 VENOUS (03/18/2023 11:10 PM EDT) pH Larry 7.55(H) 7.32 - 7.42 [facility] pCO2 Larry 33(L) 41 - 51 mmHg [facility] pO2 Larry 42(H) 25 - 40 mmHg [facility] HCO3 Larry 27.7 mmol/L [facility] BE Larry 5.3 mmol/L [facility] Hgb Blood Gas Not Perf 11.7 - 15.5 g/dL [facility] O2HB Larry Not Perf % [facility] COHB Larry Not Perf % [facility] Comment: Nonsmokers: 0.5-1.5% COHB Smokers: Variable, but usually less than 10% Toxic: 20-30% COHB Lethal: Greater than 60% COHB METHB Larry Not Perf <=1.5 % [facility] Na Whole Blood 133(L) 135 - 145 mmol/L [facility] K Whole Blood 3.6 3.5 - 5.0 mmol/L [facility] Comment: Please note: Patients with WBC >100,000 may have falsely elevated Potassium levels. Contact the Clinical Chemistry Laboratory if there are any questions. ICa Whole Blood 1.09(L) 1.15 - 1.33 mmol/L [facility] Comment: Note: ??Total bilirubin higher than 20 mg/dL may lead to falsely low ionized calcium. CL Whole Blood 95(L) 98 - 107 mmol/L [facility] Gluc Whole Bld 144 65 - 199 mg/dL [facility] Comment:Diabetes: >=200 mg/d L plus symptoms Lactate WB 1.7 0.5 - 2.2 mmol/L [facility] BGas Source Venous [facility] Blood 03/18/2023 11:1 0 PM EDT 03/18/2023 11:10 PM EDT Iram Borrero MD CHEMISTRY ORDERABLES [facility] [place] [address] * (ABNORMAL) Beta Hydroxybutyrate (03/18/2023 11:08 PM EDT) BOHB 1.33(H) 0.00 - 0.30 mmol/L [facility] Comment: This test has not been cleared by the [place] FDA. Performance characteristics of this test were determined by [facility] in accordance with CLIA requirements. This laboratory is qualified under CLIA to perform high-complexity testing. Blood 03/18/2023 11:0 8 PM EDT 03/18/2023 11:14 PM EDT Narrative Resulting Agency Comment Spec In Lab Iram Borrero MD CHEMISTRY ORDERABLES [facility] [place] [address] * (ABNORMAL) Basic Metabolic Panel (non-fasting) (03/18/2023 11:08 PM EDT) Glucose Lvl 144 65 - 199 mg/dL [facility] Comment:Diabetes: >=200 mg/d L plus symptoms BUN 11 8 - 18 mg/dL [facility] Creatinine 0.40(L) 0.70 - 1.20 mg/dL [facility] Sodium 134(L) 135 - 145 mmol/L [facility] Potassium 3.3(L) 3.5 - 5.0 mmol/L [facility] Comment: Please note: ??Patients with WBC >100,000 may have falsely elevated Potassium levels. ??For accurate Potassium quantification in these patients send serum separator tube (gold top) for subsequent determinations. ??Contact the Clinical Chemistry Laboratory if there are any questions. Chloride 95(L) 98 - 107 mmol/L [facility] CO2 26 22 - 31 mmol/L [facility] Anion Gap 13 5 - 15 mmol/L [facility] Calcium 8.6 8.5 - 10.5 mg/dL [facility] Comment:reult rechecked-KS Estimated GFR 124 >=60 mL/min/1. 73 m?? [facility] Comment: This patient's estimated GFR [...] MD CHEMISTRY ORDERABLES Performing Organization Address [facility] Co de Phone Number [facility] [place] [address] * POCT Glucose (03/18/2023 10:50 PM EDT) [facility] POC Glucose 134 65 - 199 mg/dL [facility] Comment: Supplemental ranges: <140 mg/dL before meals <180 mg/dL all other times of the day Blood 03/18/2023 10:5 0 PM EDT 03/18/2023 10:50 PM EDT Iram Borrero MD POINT OF CARE TEST O RDERABLES Performing Organization Address [facility] Co de Phone Number [facility] [place] [address] * EKG 12 Lead (03/18/2023 9:35 PM EDT) Pathologist [facility] Ventricular rate 95 BPM MUSE SYSTEM Atrial Rate 95 BPM MUSE SYSTEM P-R Interval 140 ms MUSE SYSTEM QRS Duration 90 ms MUSE SYSTEM Q-T Interval 426 ms MUSE SYSTEM QTC Calculated (Bezet) 535 ms MUSE SYSTEM Calculated P [place] 25 degrees MUSE SYSTEM Calculated R [place] 0 degrees MUSE SYSTEM Calculated T [place] -86 degrees MUSE SYSTEM INTERPRETATION Normal sinus rhythm Left ventricular hypertrophy with repolarization abnormality ( R in aVL ) Abnormal ECG When compared with ECG of 18-MAR-2023 20:24, (unconfirmed) No significant change was found Confirmed by MD Babita, Andres ([id number]) on 03/19/2023 2:23:56 PM MUSE SYSTEM 03/18/2023 9:35 PM EDT 03/19/2023 2:23 PM EDT Iram Borrero MD ECG ORDERABLES Performing Organization Address City/[facility]/ZIP Co de Phone Number MUSE SYSTEM * EKG 12 Lead (03/18/2023 8:24 PM EDT) Ventricular rate 91 BPM MUSE SYSTEM Atrial Rate 91 BPM MUSE SYSTEM P-R Interval 144 ms MUSE SYSTEM QRS Duration 94 ms MUSE SYSTEM Q-T Interval 430 ms MUSE SYSTEM QTC Calculated (Bezet) 528 ms MUSE SYSTEM Calculated P [place] 27 degrees MUSE SYSTEM Calculated R [place] 2 degrees MUSE SYSTEM Calculated T [place] -60 degrees MUSE SYSTEM INTERPRETATION Normal sinus rhythm Left ventricular hypertrophy with repolarization abnormality ( R in aVL , [place] product ) Prolonged QT Abnormal ECG When compared with ECG of 05-NOV-2007 13:07, T wave inversion more evident in Inferior leads T wave inversion now evident in Anterolateral leads QT has lengthened Confirmed by MD Babtia, Andres ([id number]) on 03/19/2023 2:23:40 PM MUSE SYSTEM 03/18/2023 8:24 PM EDT 03/19/2023 2:23 PM EDT Salvador Blum MD ECG ORDERABLES Performing Organization Address [facility] Co de Phone Number MUSE SYSTEM * Lactate, whole blood, send to lab [place] (03/18/2023 5:01 PM EDT) Lactate WB 1.6 0.5 - 2.2 mmol/L [facility] Blood 03/18/2023 5:01 PM EDT 03/18/2023 5:10 PM EDT Narrative Resulting Agency Comment Spec In Lab Pito Mclaughlin MD CHEMISTRY ORDERABL ES Performing Organization Address City/[facility]/ZIP Co de Phone Number [facility] [place] [address] * (ABNORMAL) Beta Hydroxybutyrate (03/18/2023 5:01 PM EDT) Pathologist [facility] BOHB 3.29(H) 0.00 - 0.30 mmol/L [facility] Comment: This test has not been cleared by the [place] FDA. Performance characteristics of this test were determined by [facility] in accordance with CLIA requirements. This laboratory is qualified under CLIA to perform high-complexity testing. Blood 03/18/2023 5:01 PM EDT 03/18/2023 5:11 PM EDT Narrative Resulting Agency Comment Spec In Lab Pito Mclaughlin MD CHEMISTRY ORDERABL ES [facility] [place] [address] * (ABNORMAL) Differential, Automated (03/18/2023 3:49 PM EDT) Pathologist [facility] Neutrophils % 78.5 % [facility] Neutr Abs (ANC) 7.98(H) 1.70 - 6.10 x10(3)/mc L [facility] Lymphocytes % 15.0 % [facility] Lymphocytes Abs 1.5 0.9 - 3.2 x10(3)/mc L [facility] Monocytes % 5.3 % [facility] Monocyte Abs 0.5 0.3 - 0.9 x10(3)/mc L [facility] Eosinophils % 0.2 % [facility] Eosinophils Abs 0.0 0.0 - 0.4 x10(3)/mc L [facility] Basophils % 0.3 % [facility] Basophils Abs 0.0 0.0 - 0.1 x10(3)/ L [facility] Immature Gran % 0.70 % [facility] Comment: Immature granulocytes(IG's)percentage and absolute count will include metamyelocytes, myelocytes, and promyelocytes. Blood smears from CBCs yielding IG's will be scanned manually for concordance. If this scan disagrees with the automated IG or if promyelocytes are noted, a manual differential will be performed. Reshma Gran Abs 0.07(H) 0.00 - 0.04 x10(3)/mc L [facility] Blood 03/18/2023 3:49 PM EDT 03/18/2023 4:03 PM EDT Narrative Resulting Agency Comment Spec In Lab Ivan GAINES HEMATOLOGY ORDERABLE S [facility] [place] [address] * (ABNORMAL) Hemogram (03/18/2023 3:49 PM EDT) WBC 10.2(H) 4.0 - 9.5 x10(3)/[facility] RBC 4.99 4.00 - 5.21 x10(6)/[facility] Hemoglobin 14.4 11.7 - 15.5 g/dL [facility] Hematocrit 40.5 35.7 - 45.8 % [facility] MCV 81.2(L) 82.6 - 94.4 [facility] MCH 28.9 27.1 - 32.0 pg [facility] MCHC 35.6(H) 31.7 - 35.0 g/dL [facility] Platelets 350 145 - 357 x10(3)/[facility]ORY RDWSD 42.1 37.0 - 46.0 [facility] RDWCV 14.4(H) 11.5 - 14.1 % [facility] MPV 9.1 7.6 - 12.9 [facility] nRBC % Auto 0.0 % [facility] nRBC Abs Auto 0.000 0.000 - 0.000 x10(3)/[facility] Blood 03/18/2023 3:49 PM EDT 03/18/2023 4:03 PM EDT Narrative Resulting Agency Comment Spec In Lab Ivan GAINES HEMATOLOGY ORDERABLE S Performing Organization Address [facility] Co de Phone Number [facility] [place] [address] * Prealbumin (03/18/2023 3:49 PM EDT) Prealbumin 21 20 - 40 mg/dL [facility] Comment: Prealbumin levels are generally lower in the pediatric population; adult concentrations are usually attained near puberty. Blood 03/18/2023 3:49 PM EDT 03/18/2023 4:03 PM EDT Narrative Resulting Agency Comment Spec In Lab Pito Mclaughlin MD CHEMISTRY ORDERABL ES Performing Organization Address [facility] Co de Phone Number [facility] [place] [address] * (ABNORMAL) Lipase (03/18/2023 3:49 PM EDT) Lipase 156(H) 0 - 60 unit/L [facility] Blood 03/18/2023 3:49 PM EDT 03/18/2023 4:03 PM EDT Narrative Resulting Agency Comment Spec In Lab Pito Mclaughlin MD CHEMISTRY ORDERABL ES Performing Organization Address [facility] Co de Phone Number [facility] [place] [address] * (ABNORMAL) Hepatic Function Panel (03/18/2023 3:49 PM EDT) Total Protein 7.6 6.1 - 8.0 g/dL [facility] Albumin 4.4 3.2 - 5.2 g/dL [facility] AST 74(H) 0 - 30 unit/L [facility] ALT 87(H) 0 - 30 unit/L [facility] Alk Phos 152(H) 35 - 105 unit/L [facility] Total Bilirubin 1.4(H) 0.2 - 1.3 mg/dL [facility] Bili, Direct 0.6(H) 0.0 - 0.3 mg/dL [facility] Blood 03/18/2023 3:49 PM EDT 03/18/2023 4:03 PM EDT Narrative Resulting Agency Comment Spec In Lab Pito Mclaughlin MD CHEMISTRY ORDERABL ES [facility] [place] [address] * (ABNORMAL) Basic Metabolic Panel (non-fasting) (03/18/2023 3:49 PM EDT) Glucose Lvl 113 65 - 199 mg/dL [facility] Comment:Diabetes: >=200 mg/d L plus symptoms BUN 14 8 - 18 mg/dL [facility] Creatinine 0.47(L) 0.70 - 1.20 mg/dL [facility] Sodium 138 135 - 145 mmol/L [facility] Potassium 3.0(Criti royal) 3.5 - 5.0 mmol/L [facility] Comment: Result called by ANGELA and read back by Anjum Burroughs at 03/18/2023 [id number] Please note: ??Patients with WBC >100,000 may have falsely elevated Potassium levels. ??For accurate Potassium quantification in these patients send serum separator tube (gold top) for subsequent determinations. ??Contact the Clinical Chemistry Laboratory if there are any questions. Chloride 92(L) 98 - 107 mmol/L [facility] CO2 28 22 - 31 mmol/L [facility] Anion Gap 18(H) 5 - 15 mmol/L [facility] Calcium 9.7 8.5 - 10.5 mg/dL [facility] Estimated GFR 120 >=60 mL/min/1. 73 m?? [facility] Comment: This patient's estimated GFR [...] Lab Pito Mclaughlin MD CHEMISTRY ORDERABL ES [facility] [place] [address] * (ABNORMAL) Urine culture (03/18/2023 1:52 PM EDT) Urine Culture Greater than 100,000 cfu/ml Escherichia coli(A) [facility] Organism Escherichia coli(A) [facility] Clean Catch Urine 03/18/2023 1:52 [...] - GENER AL ORDERABLES Performing Organization Address [facility]/ZIP Co de Phone Number [facility] [place] [address] * (ABNORMAL) Urinalysis Microscopic Exam (03/18/2023 1:52 PM EDT) RBC UA 15(H) 0 - 4 /HPF [facility] WBC UA 13(H) 0 - 5 /HPF [facility] Bacteria UA Many(A) None /HPF [facility] Squam Epith UA >36(H) <=4 /HPF [facility] Clean Catch Urine 03/18/2023 1:52 PM EDT 03/19/2023 8:39 AM EDT Narrative Resulting Agency Comment Spec In Lab Ivan GAINES URINE ORDERABLES Performing Organization Address [facility] Co de Phone Number [facility] [place] [address] * (ABNORMAL) Urinalysis with reflex Culture (03/18/2023 1:52 PM EDT) Glucose UA Negative Negative mg/dL [facility] Protein UA 100(A) Negative mg/dL [facility] Bilirubin UA Large(A) Negative mg/dL [facility] Comment: Clinical correlation required for positive Urine Bilirubin results as false positive may occur with some drugs and drug related products. If a false positive is suspected a serum total bilirubin should be considered if clinically indicated. Urobilinogen UA Normal Normal mg/dL [facility] pH UA 7.0 5.0 - 8.0 [facility] Blood UA Negative Negative mg/dL [facility] Ketones UA >=80(Critic al) Negative mg/dL [facility] Comment: Urinalysis result NOT critical without a combination of Glucose greater than or equal to 500 mg/dL AND Ketones greater than or equal to 80 mg/dL Nitrite UA Positive(A) Negative [facility] Leukocytes UA Small(A) Negative [facility] Appearance UA Turbid(A) Clear [facility] Spec Runge UA 1.027 1.005 - 1.030 [facility] Color UA Mohave(A) Yellow [facility] Culture Reflexed Yes [facility] Clean Catch Urine 03/18/2023 1:52 PM EDT 03/18/2023 1:52 PM EDT Narrative Resulting Agency Comment Spec In Lab Pito Mclaughlin MD URINE ORDERABLES [facility] [place] [id number] * Film Library- Storage Only CT Abdomen & Pelvis (03/13/2023 12:00 AM EDT) Narrative Dicom, Auditing User - 03/18/2023 8:00 PM EDT This exam is auto-finalizing. It's purpose is for storage only. Iram Borrero MD [facility] FILM LIBRARY ORD ERABLES * Film Library- Storage Only Ultrasound Study (02/25/2023 12:00 AM EDT) Narrative Dicom, Auditing User - 03/18/2023 7:58 PM EDT This exam is auto-finalizing. It's purpose is for storage only. Iram ADAIR FILM LIBRARY ORD ERABLES documented in this encounter Visit Diagnoses Not on filedocumented in this encounter Admitting Diagnoses Diagnosis Abdominal pain Abdominal pain, unspecified site documented in this encounter Administered Medications Inactive Administered Medications - up to 3 most recent administrations Medication Order MAR Action Action Date Dose Rate Site acetaminophen (Tylenol) (32.02 mg/mL) oral liquid 650 [...] Given 03/25/2023 2:46 AM EDT 650 mg BUpivacaine (pf) (Marcaine) (2.5 mg/mL) 0.25% injection ONCE PRN, Starting on Sat03/22/23 at 1959, Until Sat03/29/23 at 1536, Intra-Operative (Intra-Procedure), Routine Given 03/22/2023 7:59 PM EDT 7 mLs 19- Surgical Site cyclobenzaprine (Flexeril) tablet 5 mg 5 mg, Oral, 3 TIMES DAILY PRN, Starting on Sat03/19/23 at 0104, Until Sat03/29/23 at 1536, Muscle spasms, Routine Given 03/25/2023 2:46 AM EDT 5 mg dextrose 10% infusion 250 mL, at 1,000 [...] for the duration of the active insulin. docusate sodium (Colace) capsule 100 mg 100 [...] Given 03/27/2023 10:56 AM EDT 20 mg glucagon (Glucagen) (1 mg/mL) injection solution 1 [...] 03/19/2023 2:24 PM EDT 10 mg ondansetron ODT (Zofran-ODT) disintegrating tablet 4 [...] Given 03/27/2023 10:56 AM EDT 40 mg prochlorperazine (Compazine) (5 mg/mL) injection 10 mg [...] Given 03/28/2023 9:41 AM EDT 20 mg sodium chloride 0.9 % (flush) (BD PosiFlush [...] 03/28/2023 5:42 PM EDT 1 g thiamine (Vitamin B1) tablet 100 mg 100 [...] Discontinued, Routine 0629 (Given - Provider: Jayshree Cerna, MIKE)1348 (Given - Provider: Trinidad Chaves, MIKE)2113 (Given - Provider: Jessica Nguyễn, RN) 0628 (Given - Provider: Jessica Nguyễn, RN)1541 (Given - Provider: Danni Duran LPN - Comment: pt off floor)2141 (Given - Provider: Cl Goodman, MIKE) 0648 [...] Brittani Pittman RN)211 (Given - Provider: Jessica Nguyễn, MIKE) 0941 (Given - Provider: Elva Ronquillo LPN)214 (Given - Provider: Cl Goodman RN) 0834 (Given - Provider: Janneth Gomez LPN) sodium chloride 0.9 % (flush) (BD PosiFlush Normal Saline 0.9) flush 5 mL 5 mL, Intravenous, 2 TIMES DAILY, First dose on Sat03/19/23 at 0200, Until Discontinued, Routine 1100 (Given - Provider: Brittani Pittman RN)2115 (Given - Provider: Jessica Nguyễn RN) 0942 (Given - Provider: Elva Ronquillo LPN)2144 (Given - Provider: Cl Goodman RN) 0900 [...] RN)1807 (Given - Provider: Maria L Jimenes LPN)2114 (Given - Provider: Jessica Nguyễn RN) 0627 (Given - Provider: Jessica Nguyễn RN)0730 (Canceled Entry - Provider: Jessica Nguyễn RN [...] Nausea, Vomiting, Routine 2335 (Given - Provider: Cl Goodman RN) sodium chloride 0.9 % (flush) (BD [...] Intramuscular, EVERY 30 MIN PRN, Starting on 03/18/23 at 2146, Until Sat03/29/23 at 1536, Low [...] Routine documented in this encounter Care Teams Senior Telecommunications Technician Relationship Specialty Start Date End Date Sree High, BRYANNA [address] [place] [address] PCP - General Family Medicine 12/19/22 documented as of this encounter
--- OUTSIDE RECORDS SUMMARY | 2024-06-01 06:55 | XMS_ITS | Encounter Summary ---
Author Organization [facility] [place] [address] Care Team Providers Care Human Resources Director Name Role Phone Sree High APRN Primary Care Provider +1- [phone] Reason for Visit * Auth/Cert (Routine) Specialty Diagnoses / Procedures Referred By Chela t Referred To Contact Diagnoses Abdominal pain Procedures ER Iram Wright MD [facility] [place] [address] [facility] Referral ID Status Reason Start Date Expiration Date Visits Re quested Visits Authorized [id number] 1 1 Encounter Details Date Type Department Care Team (Late st Contact Info) Description 03/20/2023 11:51 AM EDT Anesthesia [place] [address] Jose Shay MD [facility] [place] [address] Anesthesia Record Procedure Summary Procedure Name Responsible Anesthesiologist Anesthesia Start Time Anesthesia Stop Time EGD, UPPER GI ENDOSCOPY (WRVU 2.09) (Trunk) Jose Shay MD 03/20/23 1151 03/20/23 1218 Events Date Time Event Comment 03/20/2023 1129 1151 AN Verify 1151 Start 1151 An Start Data 1156 An Induction 1157 Anesthesia Ready 1159 Procedure Start 1205 an stop data 1218 Recovery or ICU Handoff Kamini ent care was transferred to the destination unit staff after review of the patient's medical history, current anesthetic/surgical status and plan, according to the Provider Handoff Checklist. 1218 Stop Meds Name Total IV Lidocaine 20 mg Propofol 100 mg Propofol INF 94.2 mg Dexmedetomidine 12 mcg Ondansetron 4 mg PHENYLephrine 320 mcg ePHEDrine 15 mg Lactated Ringers 200 mL * Agents Name O2 Air N2O O2 Auxiliary Flowmeter 1 * Blood No blood administrations on file. Lines, Drains, and Airways Type Details Placement Removal (RETIRED) Peripheral IV Line - Single Lumen 03/18/23; 1556; basilic vein (medial side of arm), right; [id number]-[id number] catheter system; 20 gauge; 03/25/23; 1754 03/18/23 1556 by Stacey Ramos RN 03/25/23 1754 by Raul Muhammad, MIKE (RETIRED) Peripheral IV Line - Single Lumen 03/19/23; 1536; cephalic vein (lateral side of arm), left; viki-zer-wcvesn catheter system; Ultrasound Guidance; Yes - US guidance used but Image NOT saved; 22 gauge, 1 in length, 3/4 in length; Halle Escobar RN VAS; distraction, intradermal injection, tolerated well, appears comfortable; 1; cephalic vein (lateral side of arm), left; 03/25/23; 1754 03/19/23 1536 by Halle Escobar 03/25/23 1754 by Raul Muhammad, RN documented in this encounter Social History [...] OR Notes * Anesthesia Postprocedure Evaluation - Jose Shay MD - 03/20/2023 1:37 PM EDT Department of Anesthesiology Post-procedure Note Patient: Leandra Wilks Procedure Summary Date: 03/20/23 Room / Location: [facility] ENDO 3 / [facility] ENDOSCOPY Anesthesia Start: 1151 Anesthesia Stop: 1218 Procedure: EGD, UPPER GI ENDOSCOPY (WRVU 2.09) (Trunk) Diagnosis: (dysphagia) Surgeons: Gerber Salomon MD Responsible Provider: Jose Shay MD Anesthesia Type: MAC ASA Status: 3 All Anesthesia Providers: Anesthesiologist: Jose Shay MD MANAGER MEDICAID: Alma Delia Vizcarra CRNA Vitals Value Taken Time BP 117/91 03/20/23 1250 Temp Pulse Resp 16 03/20/23 1235 SpO2 95 % 03/20/23 1250 Pain Level 0 03/20/23 1235 Patient Location: PACU/[facility] Level of Consciousness: Awake and Alert Pain Management: Satisfactory Analgesia PONV: None Cardiovascular Status: Hypotension (received treatment) Respiratory Status: At Baseline Postoperative Fluid Status: Intravascular EUvolemia Possible Anesthetic Complications: NONE apparent at time of evaluation Final Primary Anesthesia Type: MAC (The anesthetic type performed was the same as planned.) Comments: * Anesthesia Preprocedure Evaluation - Jose Shay MD - 03/20/2023 10:10 AM EDT Pre-Anesthesia Evaluation for: Leandra Wilks a 43 y.o. female. Procedure(s): EGD, UPPER GI ENDOSCOPY (WRVU 2.09) Patient Active Problem List Diagnosis Date [...] (WRVU 29.4) performed by Iram Borrero MDat [facility] MAIN OR ??? PRO UPPER GI ENDOSCOPY, DIAGNOSTIC N/A 01/10/2023 EGD, UPPER GI ENDOSCOPY performed by Iram Borrero MD at [facility] MAIN OR ??? PRO UPPER GI ENDOSCOPY, DIAGNOSTIC N/A 03/05/2023 EGD, UPPER GI ENDOSCOPY (WRVU 2.09) performed by Iram Borrero MD at [facility] MAIN OR Social History Tobacco Use ??? Smoking status: Never ??? Smokeless tobacco: Never Substance Use Topics ??? Alcohol use: Not Currently Social History Substance and Sexual Activity Drug Use Not Currently No Known Allergies Medications: MAR and/or home medications have been reviewed. Physical Exam: Preprocedure Vitals Current as of 03/20/23 1010 BP: 155/111 Pulse: Resp: 15 SpO2: 99 Temp: 36.8 ??C (98.2 ??F) Height: 162.6 cm (5' 4) (03/19/23) Weight: 78.5 kg (173 lb) (03/19/23) BMI: 29.69 IBW: 54.7 kg (120 lb 10.7 oz) Last edited 03/20/23 0729 by Airway Assessment: Mallampati: I TM distance: >3 FB Neck ROM: full Cardiovascular Assessment: system normal Pulmonary Assessment: pulmonary exam normal Dental Assessment: - normal exam Misc Assessment: IV access: Peripheral line Last Filed Perioperative Cognitive Screening None Anesthesia Plan: ASA 3 MAC, with a(n) intravenous induction 42yoF with pmhx of IBS, mood disorder/depression/anxiety, fibromyalgia, osteoarthritis, morbid obesity s/p Renato-en-Y gastric bypass (01/10/23-[place]) with post operative course c/b poor PO intake, nausea and LUQ abdominal pain currently s/f upper endoscopy to evaluate dysphagia. AnesHx: Tolerated MAC for recent EGD without issue (PPF/predecex/midaz). Previous GA. EMV, DL x1 with MAC 3 grade 1 view, 7.5 ETT @21 cm Labs reviewed: Mild hyponatremia; slightly elevated AST/ALT, alk phos and t bili Imaging MRCP reviewed ?cholangitis Micro Urine with >100K e coli (has not been treated as of this morning) Plan: MAC with GA w/ ETT +/- RSI as backup pending symptom discussion Standard ASA monitors Adequate PIV access Region - Other Informed Consent: Anesthetic plan and risks discussed with patient. Plan discussed with MANAGER MEDICAID. Anesthesia Screening documented in this encounter Plan [...] psychologist to work on eating behaviors Health Obstetric Assistant is sending hand-outs with exercises for [...] MAR Action Action Date Dose Rate Site dexmedeTOMIDine (Precedex) (4 mcg/mL) bolus injection (Anesthsia) Intravenous, PRN, Starting on Sat03/20/23 at 1153, Until Sat03/20/23 at 1205, Anesthesia Intra-op, Routine Given 03/20/2023 11:55 AM EDT 4 mcg Given 03/20/2023 11:53 AM EDT 8 mcg ePHEDrine sulfate (5 mg/mL) multi-dose injection Intravenous, PRN, Starting on Sat03/20/23 at 1210, Until Sat03/20/23 at 1219, Anesthesia Intra-op, Routine Given 03/20/2023 12:16 PM EDT 5 mg Given 03/20/2023 12:11 PM EDT 5 mg Given 03/20/2023 12:10 PM EDT 5 mg lactated ringers infusion Intravenous, CONTINUOUS PRN, Starting on Sat03/20/23 at 1059, Until Sat03/20/23 at 1205, Anesthesia Intra-op New Bag 03/20/2023 10:59 AM EDT lidocaine (pf) (Xylocaine) (20 mg/mL) 2% injection syringe Intravenous, PRN, Starting on Sat03/20/23 at 1156, Until Sat03/20/23 at 1205, Anesthesia Intra-op, Routine Given 03/20/2023 11:56 AM EDT 20 mg ondansetron (pf) (Zofran) (2 mg/mL) injection Intravenous, PRN, Starting on Sat03/20/23 at 1155, Until Sat03/20/23 at 1205, Anesthesia Intra-op, Routine Given 03/20/2023 11:55 AM EDT 4 mg PHENYLephrine in NS (PF) (JERONIMO-SYNEPHRINE) 0.8 mg/10 mL (80 mcg/mL) multi-dose injection Syringe Intravenous, PRN, Starting on Sat03/20/23 at 1210, Until Sat03/20/23 at 1219, Anesthesia Intra-op, Routine Given 03/20/2023 12:16 PM EDT 80 mcg Given 03/20/2023 12:11 PM EDT 160 mcg Given 03/20/2023 12:10 PM EDT 80 mcg propofoL (Diprivan) (10 mg/mL) infusion Intravenous, CONTINUOUS PRN, Starting on Sat03/20/23 at 1156, Until Sat03/20/23 at 1205, Anesthesia Intra-op, Routine New Bag 03/20/2023 11:56 AM EDT 200 mcg/kg/min 94.2 mL/hr propofoL (Diprivan) 10 mg/mL bolus injection (Anesthesia) Intravenous, PRN, Starting on Sat03/20/23 at 1156, Until Sat03/20/23 at 1205, Anesthesia Intra-op Given 03/20/2023 11:56 AM EDT 100 mg documented in this encounter Care Teams Human Resources Director Relationship Specialty Start Date End Date Sree High, INDUSTRIAL RELATIONS OFFICER [address] [place] [address] PCP - General Family Medicine 12/19/22 documented as of this encounter
--- OUTSIDE RECORDS SUMMARY | 2024-06-01 06:55 | XMS_ITS | Encounter Summary ---
Author Organization [facility] Address [facility] Kris [facility] [place] [address] Care Team Providers Care Delicatessen Manager Name Role Phone Sree High APRN Primary Care Provider +1- [phone] Reason for Referral * Consultation (Routine) - Closed Specialty Diagnoses / Procedures Referred By Chela t Referred To Contact Gastroenterology Diagnoses 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, hx of anthony en y gastric bypass dec 2022 Felicia Lee MD [facility] [place] [address] [facility] [address] [place] [address] Referral ID Status Reason Start Date Expiration Date V isits Requested Visits Authorized [id number] Closed Consult, Test & Treat 03/21/2023 03/20/2024 1 1 Encounter Details Date Type Department Care Team (Late st Contact Info) Description 03/21/2023 [place] [address] Felicia Lee MD [facility] [place] [address] PSC (primary sclerosing cholangitis) Social History [...] Scheduled Referrals Name Type Priority Associated Diagnoses Order Schedule Referral to Gastroenterology Outpatient Referral Routine PSC (primary sclerosing cholangitis) Ordered: 03/21/2023 documented as of this encounter Goals Goal [...] psychologist to work on eating behaviors Health Lead Printer is sending hand-outs with exercises for mindful [...] Cholangitis documented in this encounter Care Teams Delicatessen Manager Relationship Specialty Start Date End Date Sree High APRN [address] [place] [address] [address] [facility] [address] [place] [address] PCP - General Family Medicine 12/19/22 documented as of this encounter
--- OUTSIDE RECORDS SUMMARY | 2024-06-01 06:56 | XMS_ITS | Encounter Summary ---
Author Organization [facility] [place] [place] [address] Care Team Providers Care Lap Hand Tool Name Role Phone Sree High APRN Primary Care Provider +1- [phone] Encounter Details Date Type Department Care Team (Late st Contact Info) Description 01/30/2023 Telephone [place] [phone] Lorraine Acevedo Social History Tobacco Use Types Packs/Day Years Used Date Smoking Tobacco: Never Smokeless Tobacco: Never Alcohol Use Standard Drinks/Week Comments Not Currently 0 (1 standard drink = 0.6 oz pur e alcohol) Sex and Gender Information Value Date Recorded Sex Assigned at Female 10/05/2021 8:56 AM EST Gender Identity Not on file Sexual Orientation Straight 10/05/2021 8: 56 AM EST documented as of this encounter Miscellaneous Notes * Telephone Encounter - Lorraine Acevedo - 01/30/2023 1:22 PM EDT Left message for Leandra to call us back to go over the screening questions and get her scheduled for the barium swallow ordered ----- Message from Iram Borrero MD sent at 01/30/2023 11:33 AM EDT ----- Hi team, I am ordering an Upper GI for Leandra. I am hoping they can get her in within the next month. Thanks! Iarm documented in this encounter Plan of Treatment [...] psychologist to work on eating behaviors Health Bilingual Sales Assistant is sending hand-outs with exercises for [...] on filedocumented in this encounter Care Teams Lap Hand Tool Relationship Specialty Start Date End Date Sree High, BRYANNA [address] [facility] [facility] [facility] [address] [place] [address] PCP - General Family Medicine 12/19/22 documented as of this encounter
--- OUTSIDE RECORDS SUMMARY | 2024-06-01 06:56 | XMS_ITS | Encounter Summary ---
Author Organization [facility] Address [facility] [place] [address] Care Team Providers Care Side Framer Name Role Phone Sree High APRN Primary Care Provider +1- [phone] Encounter Details Date Type Department Care Team (Late st Contact Info) Description 02/11/2023 Ancillary Procedure [place] [phone] Sree High APRN [address] [place] [address] Social History Tobacco Use Types Packs/Day Years [...] On track(2021 10:28 AM EST) Jill Colmenares, FUSION ANALYST Note: Mindfulness/deep breathing practice to reduce cortisol -try for at least 10 minutes a day -try an ap such as headspace I have referred you to our psychologist to work on eating behaviors Health Dimpling Machine Operator is sending hand-outs with exercises for mindful eating, The Pause/STOP and Urge surfing. Patient will review and try implementing some behaviors before we meet again. movement Lifestyle On track(2021 10:29 AM EST) Jill Colmenares, FUSION ANALYST Note: Exercise goal is 150 min [...] Procedure Name Priority Date/Time Associated Diagnosis Comments FILM LIBRARY STORAGE ONLY CT ABDOMEN AND PELVIS Routine 02/11/2023 12:00 AM EDT documented in this encounter Results * Film Library- Storage Only CT Abdomen & Pelvis (02/11/2023 12:00 AM EDT) Narrative [facility] - 02/12/2023 1:40 PM EDT This exam is auto-finalizing. It's purpose is for storage only. Sree High APRN IMG FILM LIBRARY O RDERABLES Performing Organization Address City/State/[facility] Co de Phone Number [place], [place] documented in this encounter Visit Diagnoses Not on filedocumented in this encounter Care Teams Side Framer Relationship Specialty Start Date End Date Sree High APRN [address] [place] [address] PCP - General Family Medicine 12/19/22 documented as of this encounter
--- OUTSIDE RECORDS SUMMARY | 2024-06-01 06:56 | XMS_ITS | Encounter Summary ---
Author Organization [facility] Address [facility] [place] [address] Care Team Providers Care Canvas Goods Maker Name Role Phone Sree High APRN Primary Care Provider +1- [phone] Encounter Details Date Type Department Care Team (Late st Contact Info) Description 02/27/2023 Ancillary Procedure [place] [phone] Sree High APRN [address] [place] [address] Social History Tobacco Use Types Packs/Day Years [...] On track(2021 10:28 AM EST) Jill Colmenares, CALENDAR CONTROL CLERK BLOOD BANK Note: Mindfulness/deep breathing practice to reduce cortisol -try for at least 10 minutes a day -try an ap such as headspace I have referred you to our psychologist to work on eating behaviors Health Log Raft Worker is sending hand-outs with exercises for mindful eating, The Pause/STOP and Urge surfing. Patient will review and try implementing some behaviors before we meet again. movement Lifestyle On track(2021 10:29 AM EST) Jill Colmenares, CALENDAR CONTROL CLERK BLOOD BANK Note: Exercise goal is 150 min a [...] STORAGE ONLY CT ABDOMEN AND PELVIS Routine 02/27/2023 12:00 AM EDT documented in this encounter Results * Film Library- Storage Only CT Abdomen & Pelvis (02/27/2023 12:00 AM EDT) Narrative [facility] - 03/02/2023 2:42 AM EDT This exam is auto-finalizing. It's purpose is for storage only. Sree High APRN IMG FILM LIBRARY O RDERABLES Performing Organization Address City/State/[facility] Co de Phone Number [place], [place] documented in this encounter Visit Diagnoses Not on filedocumented in this encounter Care Teams Canvas Goods Maker Relationship Specialty Start Date End Date Sree High APRN [address] [place] [address] PCP - General Family Medicine 12/19/22 documented as of this encounter
--- OUTSIDE RECORDS SUMMARY | 2024-06-01 06:56 | XMS_ITS | Encounter Summary ---
Author Organization [facility] Address [facility] [place] [address] Care Team Providers Care Testing Manager Name Role Phone Sree High APRN Primary Care Provider +1- [phone] Encounter Details Date Type Department Care Team (Late st Contact Info) Description 02/28/2023 Telephone [place] [address] Anni Varela APRN [facility] [place] [address] Social History Tobacco Use Types Packs/Day Years [...] Telephone Encounter - Anni Varela APRN - 02/28/2023 4:07 PM EDT Called Leandra to follow up on message below. Had CT and labs at ED on 02/26. Leandra estimates 8 oz fluid yesterday (V8 and water). No solid food. Intake limited by nausea and pain. No vomiting in several weeks. Pain is stable (upper abdomen, constant 7/10). Last tried a smoothie about 3 days ago (pineapple, kathie, blueberry, banana, whole milk plain yogurt, sugar free juice). Sipped throughout the day. Has not tried protein powder. Not tracking intake. A/P: Patient s/p laparoscopic Saúl-en-Y gastric bypass??on 01/10/23??with Dr. Borrero with continued abdominal pain and poor PO intake. -Reviewed ED precautions. -Will obtain records from recent ED visit for surgeon review. -Reviewed strategies to increase intake (tracking, pop gricel, smoothies, protein powder). -Questions encouraged and answered. ----- Message from Jammie Chiang RN sent at 02/28/2023 2:58 PM EDT ----- Regarding: FW: Struggling Contact: ----- Message ----- From: Leandra Wilks Sent: 02/28/2023 2:56 PM EDT To: [facility] General Surgery Nurse Subject: Struggling Hi! I wanted to shoot you a message to let u know that on Feb 26 I went to the hospital and had some IV fluids. For the past 2 days I have been laying in bed too sick to move. I can't drink much,I'm not eating anything at all. I have stomach pain and nausea to the point where I can't do anything.If you could give me some pointers it would be great. Thank you so much! Leandra Wilks documented in this encounter Plan of Treatment [...] On track(2021 10:28 AM EST) Jill Colmenares, FURNACE KEEPER Note: Mindfulness/deep breathing practice to reduce cortisol -try for at least 10 minutes a day -try an ap such as headspace I have referred you to our psychologist to work on eating behaviors Health Flooring Sales Manager is sending hand-outs with exercises for mindful eating, The Pause/STOP and Urge surfing. Patient will review and try implementing some behaviors before we meet again. movement Lifestyle On track(2021 10:29 AM EST) Jill Colmenares, FURNACE KEEPER Note: Exercise goal is 150 min a [...] on filedocumented in this encounter Care Teams Testing Manager Relationship Specialty Start Date End Date Sree High APRN [address] [facility] [address] [place] [address] PCP - General Family Medicine 12/19/22 documented as of this encounter
--- OUTSIDE RECORDS SUMMARY | 2024-06-01 06:56 | XMS_ITS | Encounter Summary ---
Author Organization [facility] Address [facility] [place] [address] Care Team Providers Care Sales And Retail Management Recruiter Name Role Phone Sree High APRN Primary Care Provider +1- [phone] Encounter Details Date Type Department Care Team (Late st Contact Info) Description 02/12/2023 Telephone [place] [phone] Anni Varela APRN [facility] [place] [address] Social History Tobacco Use Types Packs/Day Years [...] encounter Miscellaneous Notes * Telephone Encounter - Iram Borrero MD - 02/19/2023 1:59 PM EDT I checked in with Ms. Wilks today. She was recently seen at an OSH ED for abdominal pain. I reviewed her labs and CT scan from that visit. Her labs looked good and her CT scan showed contrast flowing past her GJ and JJ and into her colon. She is eating apple sauce, yogurt, and broth. She is drinking water and V8 juice. The soft stuff is easier to get down. She is having a BM every other day. Shehas lost about 45 lbs since her highest weight. She has an Upper GI scheduled for the end of this month. This will give us a better idea of how liquids are flowing past her GJ. She has follow up withme scheduled after this study. Iram Borrero MD * Telephone Encounter - Anni Varela APRN - 02/12/2023 11:24 AM EDT Called patient re: ED visit yesterday. Leandra reports ED ([facility]) included IV fluids and CT scan, labs. She reports ED providers recommended BSP follow up and PCP follow up. Today Leandra reports continued nausea and abdominal pain. -Will obtain images from CT. -Encouraged fluid intake. -Reviewed ED precautions. -Recommended PCP follow up (re: non-bariatric symptoms including SOB). -Patient verbalizes understanding and agreement. documented in this [...] psychologist to work on eating behaviors Health Head Of Operation And Logistics is sending hand-outs with exercises for mindful [...] filedocumented in this encounter Care Teams Sales And Retail Management Recruiter Relationship Specialty Start Date End Date Sree High APRN [address] [place] [address] PCP - General Family Medicine 12/19/22 documented as of this encounter
--- OUTSIDE RECORDS SUMMARY | 2024-06-01 06:56 | XMS_ITS | Encounter Summary ---
Author Organization Formerly [facility] Address [facility] [place] [address] Care Team Providers Care Car Seat Upholsterer Name Role Phone Sree High APRN Primary Care Provider [phone]- [phone] Encounter Details Date Type Department Care Team (Latest Contact Info) Description 03/05/2023 2:47 PM EDT - 03/05/2023 6:36 PM EDT Hospital En[place] [id number] Iram Borrero MD [facility] [place] [address] Dysphagia, unspecified type Discharge Disposition: Home Social History Tobacco Use [...] Sign Reading Time Taken Comments Blood Pressure 143/85 03/05/2023 6:15 PM EDT Pulse 105 03/05/2023 6:00 PM EDT Temperature 37 ??C (98.6 ??F) 03/05/2023 6:15 PM EDT Respiratory Rate 16 03/05/2023 6:15 PM EDT Oxygen Saturation 96% 03/05/2023 6:15 PM EDT Inhaled Oxygen Concentration - - Weight 82.6 kg (182 lb) 03/05/2023 2:57 PM EDT Height 162.6 cm (5' 4) 03/05/2023 2:57 PM EDT Body Mass Index 31.24 03/05/2023 2:57 PM EDT documented in this encounter Discharge Instructions * Patient Instructions* Natalee Winn MD - 03/05/2023 5:41 PM EDT Instructions following EGD with dilation Medications: Resume all usual medications. Your omeprazole prescription has been changed so that you should now take omeprazole 40mg capsule twice daily for 1 month. You have also been prescribed a new medication called Carafate (sucralfate) which you should crush and take 4 times a day for a month. These medication changes are because an ulcer was found during your endoscopy. Urinary retention: If you are unable to urinate 6-8 hours after your surgery, please call [phone] before 5 PM weekdays and [phone] after 5 PM and weekends to discuss further managment. Activity: No restrictions Diet: After your procedure, there are no dietary restrictions. Resume diet with liquids and soft food andincrease to regular diet as tolerated. Driving restrictions: No driving if you are taking prescription pain medication or if you think your normal reaction timeand attentiveness has been slowed by your surgery. Call Doctor for: The number for questions is [phone] before 5 PM weekdays and [phone] after 5 PM and weekends. Follow-up: Please call [phone] (clinic number for appointments) to confirm or change the date and time ofyour appointment. You should keep your appointment for the swallow study on 03/12/2023 which will help us further evaluate your stomach and intestine. Future Appointments Date Time Provider Department Center 03/12/2023 3:00 PM [facility] DX ROOM 5 Xray [facility] Rad 03/20/2023 12:10 PM Iram Borrero MD [facility] 04/26/2023 9:30 AM Anita Aviles APRN [facility] documented in this encounter Medications at Time of Discharge Medication Sig Dispensed Refills Start Date End Date cholecalciferol, Vitamin D3, 50 mcg (2,000 unit) [...] every 6 hours as needed. 2 04/11/2016 Oxytrol 3.9 mg/24 hr Patch Semiweekly Change 1 patch on the skin twice a week. 01/28/2023 08/30/2023 sucralfate (Carafate) 1 gram tablet Take 1 tablet by mouth 4 times daily for 30 days. Crush tablet and take with small amount of liquid 120 tablet 03/05/2023 04/04/2023 omeprazole (PriLOSEC) [address] capsule Take 1 capsule by mouth 2 times daily for 30 days. 60 capsule 03/05/2023 03/19/2023 prochlorperazine (Compazine) 10 mg tablet TAKE ONE TABLET BY MOUTH THREE TIMES A DAY FOR 7 DAYS 01/18/2023 03/19/2023 ondansetron ODT (Zofran-ODT) 4 mg Tablet, Rapid DissolveIndications:Na usea without vomiting Take 1 tablet by mouth every 8 hours as needed for Nausea. 20 tablet 01/22/2023 08/30/2023 polyethylene glycoL (Miralax) 17 gram/dose Powder Take 17 g by mouth daily. 01/11/2023 03/19/2023 acetaminophen (Tylenol) 650 mg/20.3 mL Solution Take 20.3 mLs by mouth every 6 hours as needed. 01/11/2023 03/19/2023 docusate sodium (Colace) 100 mg Capsule Take 1 capsule by mouth 2 times daily as needed for Constipation. 01/11/2023 03/19/2023 oxybutynin (DITROPAN XL) 15 mg Tablet Extended Rel 24 hr 15 mg daily. 08/07/2021 lamoTRIgine (LaMICtal) 150 mg Tablet Take 150 mg by mouth 2 times daily. 07/15/2021 03/29/2023 documented as of this encounter Progress Notes * Kenyetta Delcid RN - 03/05/2023 6:26 PM EDT Patient alert and oriented, vital signs stable. Reviewed discharge instructions; patient and life partner, verbalized understanding. Copy of instruction sheet with contact numbers for questions/concernsprovided. Pain assessment documented. Patient escorted out of department via wheelchair. documented in this encounter H&P Notes * Iram Borrero MD - 03/05/2023 4:50 PM EDT [facility] General Surgery History and Physical History of Present Illness: Leandra Wilks is a 42 y.o. female with a hx of laparoscopic gastric bypass on 01/10/23 who presents today for an upper endoscopy. She continues to have daily abdominal pain and nausea. She is also vomiting. She says she has only had two bites of cream cheese all month. Past Medical History: Patient Active Problem List Diagnosis Code ??? [...] ? Severe obesity (BMI >= 40) E66.01 Past Surgical History: Past Surgical History: Procedure Laterality Date ??? ABDOMINAL EXPLORATION SURGERY 10/31/2004 b/l salpingectomy and removel enodmetrial implantsin cul de sac ??? APPENDECTOMY ??? CARPAL TUNNEL RELEASE Bilateral ??? CHOLECYSTECTOMY ??? HYSTERECTOMY, VAGINAL 05/12/2015 ??? PRO LAP GASTRIC BYPASS/ANTHONY-EN-Y N/A 01/10/2023 @LAPAROSCOPIC GASTROPLASTY W/ ANTHONY-EN-Y CONSTRUCTION (WRVU 29.4) performed by Iram Borrero MDat [facility] MAIN OR ??? PRO UPPER GI ENDOSCOPY, DIAGNOSTIC N/A 01/10/2023 EGD, UPPER GI ENDOSCOPY performed by Iram Borrero MD at [facility] MAIN OR Medications: No current facility-administered medications on file prior to encounter. Current Outpatient Medications on File Prior to Encounter Medication Sig Dispense Refill ??? cholecalciferol, Vitamin D3, 50 mcg (2,000 unit) Capsule Take 1 capsule by mouth daily. ??? prochlorperazine (Compazine) 10 mg tablet TAKE ONE TABLET BY MOUTH THREE TIMES A DAY FOR 7 DAYS ??? ondansetron ODT (Zofran-ODT) 4 mg Tablet, Rapid Dissolve Take 1 tablet by mouth every 8 hours as needed for Nausea. 20 tablet 0 ??? polyethylene glycoL (Miralax) 17 gram/dose Powder Take 17 g by mouth daily. ??? docusate sodium (Colace) 100 mg Capsule Take 1 capsule by mouth 2 times daily as needed for Constipation. ??? oxybutynin (DITROPAN XL) 15 mg Tablet [...] EACH EYE AT BEDTIME DIRECTED 3 ??? Certavite-Antioxidant 18-400 mg-mcg Tablet Take 1 tablet by mouth daily. ??? omeprazole (PriLOSEC) 40 mg Capsule, Delayed Release(E.C.) Take 1 capsule by mouth daily for 90days. 90 capsule 0 ??? acetaminophen (Tylenol) 650 mg/20.3 mL Solution Take 20.3 mLs by mouth every 6 hours as needed. ??? acetaminophen (TYLENOL) 650 mg Tablet Sustained Release Take 650 mg by mouth every 8 hours as needed. ??? Emgality Pen 120 mg/mL Pen Injector every 30 days. ??? PROAIR HFA 90 mcg/actuation HFA Aerosol Inhaler INHALE 1 TO 2 PUFFS FOUR TIMES A DAY NEEDED WHEN COUGHING AND BEFORE EXERCISE 2 Allergies: Patient has no known allergies. Family History: History reviewed. No pertinent family history. Social History: reports that she has never smoked. She has never used smokeless tobacco. She reports that she does not currently use alcohol. She reports that she does not currently use drugs. Review of Systems: A 10 point review of systems was performed. Pertinent positives and negatives are listed in the above HPI. All other systems are negative. Physical Exam: Vital Signs: BP (!) 147/92 Pulse (!) 104 Temp 36.8 ??C (98.2 ??F) (Temporal) Resp 16 Ht 162.6 cm (5' 4) Wt 82.6 kg (182 lb) SpO2 98% BMI 31.24 kg/m?? General appearance: Alert and oriented, appears stated age, well groomed HEENT: No scleral icterus, normocephalic, atraumatic Skin: No jaundice Heart: Regular rate Lungs: Symmetric chest rise, no distress Abdomen: Non distended, soft, non tender to palpation, Extremities: Moves all four extremities, no gross deformity. Assessment and Recommendation: A 42 y.o.-old female with dysphagia following RNYGB on 01/10/23. Plan to proceed with Upper Endoscopy. Iram Borrero MD General Surgery Minimally Invasive Surgery [phone] documented in this encounter Miscellaneous Notes * Op Note - Iram Borrero MD - 03/05/2023 5:05 PM EDT [facility] Operative Note Patient Name: Leandra Wilks : [id number] MR#: [id number] Case Date: 03/05/2023 Surgeon: Surgeon(s) and Role: * Iram Borrero MD - Primary * Natalee Winn MD - Fellow - Assisting Preoperative diagnosis: Dysphagia Postoperative diagnosis: Dysphagia Procedure(s) (LRB): EGD, UPPER GI ENDOSCOPY (WRVU 2.09) (N/A) Findings: Overall normal appearing anthony-en-y anatomy. Small superficial ulcer on jejunal side of GJanastomosis. GJ dilated up to about 15mm. Anesthesia: MAC Estimated Blood Loss: 1 mL Specimens removed during surgery: None Drains: None Surgical Closure: N/A Disposition: awakened from anesthesia, extubated and taken to the recovery room in a stable condition, having suffered no apparent untoward event. and aroused from sedation, and taken to the recoveryroom in a stable condition Condition: doing well without problems (Please see the Surgical Encounter Summary for any Implant and Specimen details pertinent to this patient.) HPI/Surgical Indications: This is a 42 y.o. female with a hx of laparoscopic gastric bypass on 01/10/23. Since surgery she has had persistent nausea, occasional vomiting and dysphagia. She also has abdominal pain. Given her persistent symptoms the decision was made to proceed to the OR for endoscopy. Procedure Description: Informed consent was obtained for the procedure, including sedation. Risks of perforation, hemorrhage, adverse drug reaction, pain, infection and aspiration were discussed. Thepatient was brought to the operating room and placed in the left lateral decubitus position. The patient was placed in the left lateral decubitus position. The patient was monitored continuously with EKG tracing, pulse oximetry, blood pressure monitoring, and direct observations by Anesthesiology. The endoscope was inserted into the mouth and advanced under direct vision to the gastric pouch. She was noted to have a normal but slightly small GJ anastomosis. On the jejunal side there was a small superficial ulcer. The scope was advanced into her anthony limb around 20-30cm and appeared widely patent. The decision was made to dilate her anastomosis. A balloon was passed into the anthony limband inflated to 12mm then 13.5 then 15mm and held for 2 minutes. Minor mucosal breaks were noted. The scope then passed easily into her anthony limb. The scope was then withdrawn. The patient tolerated the procedure well, and there were no complications. She was taken to the recovery area in stable condition. Recommendation/Plan: Follow up in bariatric clinic as planned Increase PPI to BID Start carafate QID Attestation: Case Date: 03/05/2023 No qualified resident available. Iram Borrero MD 03/05/2023 Surgical Infection Prevention Bundle Used? N/A documented in this encounter Plan of Treatment [...] psychologist to work on eating behaviors Health Manager [employer] is sending hand-outs with exercises for mindful [...] Procedure Name Priority Date/Time Associated Diagnosis Comments Upper GI Endoscopy, Diagnostic (66982) Yes 03/05/2023 4:56 PM EDT Dysphagia, unspecified type UPPER GI ENDOSCOPY Routine 03/05/2023 2: 49 PM EDT Dysphagia, unspecified type documented in this encounter Visit Diagnoses Diagnosis Dysphagia, unspecified type documented in this encounter Administered Medications Inactive Administered Medications - up to 3 most recent administrations Medication Order MAR Action Action Date Dose Rate Site barium sulfate (E-Z Disk) tablet 0-700 mg 0-700 mg, Oral, ONCE PRN, 1 dose, Starting on Sat03/05/23 at 1503, Until Sat03/05/23 at 2035, Per Protocol, Radiology Contrast, Routine barium sulfate (E-Z-HD) 98% oral liquid 0-120 mL 0-120 mL, Oral, ONCE PRN, 1 dose, Starting on e 03/05/23 at 1503, Until 03/05/23 at 2035, Per Protocol, Radiology Contrast, Routine barium sulfate (Ezpaque) 60% (w/v) oral liquid 0-710 mL 0-710 mL, Oral, ONCE PRN, 1 dose, Starting on Sat03/05/23 at 1503, Until Tu03/05/23 at 203, Per Protocol, Radiology Contrast, Routine documented in this encounter Active and Recently Administered Medications Times are shown in EDT. PRN Medication Order 03/03/2023 03/04/2023 03/05/2023 barium sulfate (E-Z Disk) tablet 0-700 mg 0-700 mg, Oral, ONCE PRN, 1 dose, Starting on Sat03/05/23 at 1503, Until Tu03/05/23 at 203, Per Protocol, Radiology Contrast, Routine barium sulfate (E-Z-HD) 98% oral liquid 0-120 mL 0-120 mL, Oral, ONCE PRN, 1 dose, Starting on Sat03/05/23 at 1503, Until 03/05/23 at 203, Per Protocol, Radiology Contrast, Routine barium sulfate (Ezpaque) 60% (w/v) oral liquid 0-710 mL 0-710 mL, Oral, ONCE PRN, 1 dose, Starting on Sat03/05/23 at 1503, Until Tu03/05/23 at 203, Per Protocol, Radiology Contrast, Routine documented in this encounter Care Teams Car Seat Upholsterer Relationship Specialty Start Date End Date Sree High, BRYANNA [address] [place] [address] PCP - General Family Medicine 12/19/22 documented as of this encounter
--- OUTSIDE RECORDS SUMMARY | 2024-06-01 06:56 | XMS_ITS | Encounter Summary ---
Author Organization [facility] Address [facility] [place] [address] Care Team Providers Care Branch Maker Name Role Phone Sree High APRN Primary Care Provider [phone]- [phone] Encounter Details Date Type Department Care Team (Late st Contact Info) Description 03/05/2023 4:56 PM EDT Anesthesia Event [place] [id number] Carleen Esqueda MD [facility] [place] [address] Anesthesia Record Procedure Summary Procedure Name Responsible Anesthesiologist Anesthesia Start Time Anesthesia Stop Time EGD, UPPER GI ENDOSCOPY (WRVU 2.09) (Mouth) Carleen Esqueda MD 03/05/23 1656 03/05/23 1739 Events Date Time Event Comment 03/05/2023 1632 1656 AN Verify 1656 Start 1656 An Start Data 1700 An Induction 1706 Anesthesia Ready 1727 Procedure Stop 1731 an stop data 1739 Recovery or ICU Handoff Kamini ent care was transferred to the destination unit staff after review of the patient's medical history, current anesthetic/surgical status and plan, according to the Provider Handoff Checklist. 1739 Stop Meds Name Total Midazolam 2 mg IV Lidocaine 100 mg Propofol 200 mg Propofol INF 495.6 mg Dexmedetomidine 24 mcg Dexamethasone 8 mg Lactated Ringers 650 mL * Agents Name O2 O2 Auxiliary Flowmeter 1 * Blood No blood administrations on file. Lines, Drains, and Airways Type Details Placement Removal Incision 01/10/23; 1406; abdo men; laparoscopic punctures (specify) (6 lap port sites); 03/05/23; 183101/10/23 1406 by Lorne Uriostegui RN 03/05/23 183 by Kenyetta Delcid RN (RETIRED) Peripheral IV Line - Single Lumen 03/05/23; 1521; metacarpal vein (top of hand), left; [id number] catheter system; Anatomical Landmarks; 22 gauge; Giovanna RN; distraction, tolerated well, appears comfortable; no longer indicated, removed per policy/procedure, site care per policy/procedure, catheter/device intact; 03/05/23; 18303/05/23 1521 by Won Bañuelos RN 03/05/23 183 by Kenyetta Delcid RN documented in this encounter Social History [...] OR Notes * Anesthesia Postprocedure Evaluation - Carleen Esqueda MD - 03/05/2023 5:46 PM EDT Department of Anesthesiology Post-procedure Note Patient: Leandra Wilks Procedure Summary Date: 03/05/23 Room / Location: [facility] OR [address] [place] [address] MAIN OR Anesthesia Start: 1655 Anesthesia Stop: 1738 Procedure: EGD, UPPER GI ENDOSCOPY (WRVU 2.09) (Mouth) Diagnosis: Dysphagia, unspecified type (Dysphagia) Surgeons: Iram Borrero MD Responsible Provider: Carleen Esqueda MD Anesthesia Type: MAC ASA Status: 3 All Anesthesia Providers: Anesthesiologist: Carleen Esqueda MD DIRECTOR OF ACADEMIC: Rachel Gill CRNA Vitals Value Taken Time BP 143/85 03/05/23 1815 Temp 37 ??C (98.6 ??F) 03/05/23 1815 Pulse 98 03/05/23 1806 Resp 16 03/05/23 1815 SpO2 95 % 03/05/23 1822 Pain Level 0 03/05/23 1815 Vitals shown include unvalidated device data. Patient Location: PACU/SDP Level of Consciousness: Conscious but Sleepy Pain Management: Satisfactory Analgesia PONV: None Cardiovascular Status: At Baseline and Hemodynamically Stable Respiratory Status: At Baseline and Room Air Postoperative Fluid Status: Intravascular EUvolemia Possible Anesthetic Complications: NONE apparent at time of evaluation Final Primary Anesthesia Type: MAC (The anesthetic type performed was the same as planned.) Comments: Patient tolerated procedure well without any apparent anesthesia complications. * Anesthesia Preprocedure Evaluation - Carleen Esqueda MD - 03/04/2023 3:17 PM EDT Pre-Anesthesia Evaluation for: Leandra dunham 42 y.o. female. Procedure(s): EGD, UPPER GI ENDOSCOPY (VU 2.09) Patient Active Problem List Diagnosis Date Noted ? ? Severe obesity (BMI >= 40) [...] (WRVU 29.4) performed by Iram [facility]ro MDat [facility] MAIN OR ??? PRO UPPER GI ENDOSCOPY, DIAGNOSTIC N/A 01/10/2023 EGD, UPPER GI ENDOSCOPY performed by Iram Borrero MD at [facility] MAIN OR Social History Tobacco Use ??? Smoking status: Never ??? Smokeless tobacco: Never Substance Use Topics ??? Alcohol use: Not Currently Social History Substance and Sexual Activity Drug Use Not Currently No Known Allergies Medications: MAR and/or home medications have been reviewed. Physical Exam: Preprocedure Vitals Current as of 03/04/23 1517 No BP, pulse, respiration, SpO2, or temperature recorded. Height: Weight: BMI: IBW: Airway Assessment: Mallampati: I TM distance: >3 FB Neck ROM: full Cardiovascular Assessment: system normal Pulmonary Assessment: pulmonary exam normal Dental Assessment: - normal exam Misc Assessment: IV access: Peripheral line Last Filed Perioperative Cognitive Screening None Anesthesia Plan: ASA 3 MAC, with a(n) intravenous induction 42yoF with pmhx of IBS, mood disorder/depression/anxiety, fibromyalgia, osteoarthritis, severe obesity (previously >40 improved to 35) now s/p Renato-en-Y gastric bypass (01/10/23-Aadir) with post operative course c/b poor PO intake, nausea and LUQ abdominal pain currently s/f upper endoscopy to evaluate dysphagia with Dr. Borrero. AnesHx: Previous GA. EMV, DL x1 with MAC 3 grade 1 view, 7.5 ETT @21 cm CVHx: None Plan: MAC with GA w/ ETT +/- RSI as backup pending symptom discussion Standard ASA monitors Adequate PIV access Region - Other Informed Consent: Anesthetic plan and risks discussed with patient and spouse. Plan discussed with DIRECTOR OF ACADEMIC and attending. Anesthesia Screening documented in this encounter Plan [...] psychologist to work on eating behaviors Health [employer] is sending hand-outs with exercises for mindful [...] MAR Action Action Date Dose Rate Site dexAMETHasone (Decadron) injection Intravenous, PRN, Starting on Sat03/05/23 at 1714, Until Sat03/05/23 at 1739, Anesthesia Intra-op, Routine Given 03/05/2023 5:14 PM EDT 8 mg dexmedeTOMIDine (Precedex) (4 mcg/mL) bolus injection (Anesthsia) Intravenous, PRN, Starting on Sat03/05/23 at 1707, Until Sat03/05/23 at 1739, Anesthesia Intra-op, Routine Given 03/05/2023 5:07 PM EDT 4 mcg Given 03/05/2023 5:05 PM EDT 4 mcg Given 03/05/2023 5:00 PM EDT 8 mcg lactated ringers infusion Intravenous, CONTINUOUS PRN, Starting on Sat03/05/23 at 1656, Until Sat03/05/23 at 1739, Anesthesia Intra-op New Bag 03/05/2023 4:56 PM EDT lidocaine (pf) (Xylocaine) (20 mg/mL) 2% injection syringe Intravenous, PRN, Starting on Sat03/05/23 at 1700, Until Sat03/05/23 at 1739, Anesthesia Intra-op, Routine Given 03/05/2023 5:00 PM EDT 100 mg midazolam (pf) (Versed) (1 mg/mL) multi-dose injection Intravenous, PRN, Starting on Sat03/05/23 at 1656, Until Sat03/05/23 at 1739, Anesthesia Intra-op, Routine Given 03/05/2023 4:56 PM EDT 2 mg propofoL (Diprivan) (10 mg/mL) infusion Intravenous, CONTINUOUS PRN, Starting on Sat03/05/23 at 1700, Until Sat03/05/23 at 1739, Anesthesia Intra-op, Routine Rate/Dose Change 03/05/2023 5:03 PM EDT 225 mcg/kg/min 111.51 mL/hr New Bag 03/05/2023 5:00 PM EDT 200 mcg/kg/min 99.12 mL/ hr propofoL (Diprivan) 10 mg/mL bolus injection (Anesthesia) Intravenous, PRN, Starting on Sat03/05/23 at 1703, Until Sat03/05/23 at 1739, Anesthesia Intra-op Given 03/05/2023 5:03 PM EDT 50 mg Given 03/05/2023 5:00 PM EDT 150 mg documented in this encounter Care Teams Branch Maker Relationship Specialty Start Date End Date Sree High, BRYANNA [address] [place] [address] PCP - General Family Medicine 12/19/22 documented as of this encounter
--- OUTSIDE RECORDS SUMMARY | 2024-06-01 06:56 | XMS_ITS | Encounter Summary ---
Author Organization [facility] [place] [address] Care Team Providers Care Neurology Manager Name Role Phone Sree High APRN Primary Care Provider [phone]- [phone] Encounter Details Date Type Department Care Team (Late st Contact Info) Description 02/11/2023 2:00 PM EDT TH Visit (TeleHealth) [place] [address] Anni Varela APRN [facility] [place] [address] [facility] [place] [address] S/P gastric bypass Social History Tobacco Use [...] as of this encounter Progress Notes * Stacey Ly RD - 02/11/2023 2:00 PM EDT Images from the original note were not included. [place] [address] ? BARIATRIC SURGERY VIRTUAL NOTE ?? 1. Reason/purpose for phone call: BSP follow up visit 2. The patient voiced an understanding of the reason and intent of the televisit and provided verbal consent to discuss clinical issues by telehealth. Additionally, the patient acknowledged that the telehealth consultation is a billable encounter, and that the patient or their medical insurance carrier could be billed. 3. Summary of conversation, decision making, and plan:?? see below encounter note for details. ?? Time Attestation: I spent a total of 60 minutes associated with this encounter, including chart review, the patient encounter, and documentation. ?Pt was in [place] at time of visit. ?? Topics Discussed/Patient Concerns: ?? Pt reports abdominal pain over last 3 days, states the pain is more diffuse than previous epigastric pain. Pt questions if symptoms are flu or illness vs. Bariatric surgery related. Pt also reports diarrhea, nausea, but no vomiting. Pt states she is using anti-nausea medication and it is helping. Pt also reports feeling hot/cold chills, and SOB, further evaluation by Anni Varela APRN. Pt has not taken a COVID-19 test. ?? Pt reports consuming 8-16 oz water/day over the last 2 days, pt endorses dizziness and lightheadedness. ?? Pt states she has not tried thick-it or thicker liquids like yogurt ?? Asked pt to try small bite of yogurt while on telehealth call. Pt tried bit of Emirati yogurt, reported epigastric pain and nausea with small bite. ?? Pt continues to have difficulty with PO intake, unclear if poor tolerance is surgery related or illness in the context of current symptoms. ?? Social history:??on disability??for multiple medical issues. lives w BF??w 3 of her sons (18-21).?Has 4 children. ?? Social support:??BF??(who is here with her today), mom, mental health counselor, best friend, sons ?? Hobbies:??likes to lennie, singing ?? Vision at 2 years post-op:??Healthier eating, improvement of health issues ?Goal weight: 150-160# ?? OBJECTIVE: ?? Medical Hx:?Class II obesity,??Anxiety, Back pain, Depression, GERD, Glaucoma, Insomnia, Insulinresistance/prediabetes, kidney stones, Migraine d/o and OA, CHUN ?? Date of Bariatric Surgery:?01/10/23 w/ Dr. Borrero Type of Bariatric Surgery:??Laparoscopic Saúl-en-Y Gastric Bypass ?? Weight History: Date Weight (lbs) HT BMI Comments?? Age 36 237# ? Highest Weight 06/17/21 228# 64 39.1 Initial program weight 10/09/22 228.8# 64 39.3 1st pre-op visit ? EWL % ?? Surgery ??01/22/23 ? 1.5 weeks post-op (tele-Spreadsave, no weight reported) ??01/29/23 207#?? 26%?? 35.5?? 3.5 wks post-op 02/11/23 1 month post-op (not discussed) [place] Body Weight (based on BMI of 25):??146# 30-70% Excess Weight Loss:??171-204#; 50% Excess Weight Loss:??187# ?? MEDICATIONS: ?? Vitamin/Mineral Supplements (reported by patient): Pt has not yet started supplements Supplement Type Brand/Form Dosage/Amount Frequency Comments Multivitamin ? Advised pt to wait to start supplements until PO intake increases, pt states her PCP prescribed MVM Calcium ? Vitamin B12 ? Iron ? Vitamin D3 ? Food Allergies/Intolerances: ??none ?? Tracking Intake: pt has been tracking using paper logs ?? Daily Oral Intake: ?? Breakfast 10 am : 1 popsicle (regular not sugar-free)-stomach pain and nausea AM Snack Lunch 1:30: 2 crackers PM Snack 3 pm: 1 popsicle (regular not sugar-free)- Dinner HS Snack ? Protein- grams/day: 0g Hydrating fluids??- oz/day: 8-16 oz water Soda: ??n/a ETOH: ??none Caffeine: ??n/a Meals per day: ??2 ?? Other: ??? Vomiting/ regurgitation: none in last several days ??? Nausea: ??+nausea, Zofran helps ??? Constipation/diarrhea: pt reports diarrhea over last few days ?? Exercise: not discussed ? ASSESSMENT: Patient is 1 mo s/p bariatric surgery w/ poor PO intake. Pt is below protein and fluid goals. Encouraged pt to continue tracking intake. Pt reports abdominal pain over last 3 days, states the pain ismore diffuse than previous epigastric pain. Pt questions if symptoms are flu or illness vs. Bariatric surgery related. Pt also reports diarrhea, nausea, but no vomiting. Pt states she is using anti-nausea medication and it is helping. Pt also reports feeling hot/cold chills, and SOB, further evaluation by Anni Varela APRN. Pt has not taken a COVID-19 test. Pt reports consuming 8-16 oz water/day over the last 2 days, pt endorses dizziness and lightheadedness. Pt states she has not tried thick-it or thicker liquids like yogurt. Asked pt to try small bite of yogurt while on telehealth call. Pt tried bit of Emir[place] yogurt, reported epigastric pain and nausea with small bite. Pt continues to have difficulty with PO intake, unclear if poor tolerance is surgery related or illness in the context of current symptoms. Will discuss starting supplements once she is able to increase PO intake moreconsistently. ? PLAN: ??? Evaluation by Anni Varela APRN today. ??? Provided support/encouragement and reinforced importance of meeting nutritional goals. ? Aim for 60-80g of protein/day- eat protein at all meals and snacks, eat protein first ? Aim for 48-64 oz hydrating fluid/day ? Continue to track intake ? Have meals at 9am, 12pm, 5:30pm ??? Reviewed vitamin and mineral supplement recommendations. ? Advised pt to wait to start supplements until PO intake increases * Anni Varela APRN - 02/11/2023 2:00 PM EDT Images from the original note were not included. [place] [address] BARIATRIC SURGERY VIRTUAL NOTE 1. Reason/purpose for phone call: BSP follow up visit 2. The patient voiced an understanding of the reason and intent of the televisit and provided verbal consent to discuss clinical issues by telehealth. Additionally, the patient acknowledged that the telehealth consultation is a billable encounter, and that the patient or their medical insurance carrier could be billed. 3. Summary of conversation, decision making, and plan: see below encounter note for details. Time Attestation: I spent a total of 30 minutes associated with this encounter, including chart review, the patient encounter, and documentation. Subjective: Leandra Wilks is s/p laparoscopic Saúl-en-Y gastric bypass on 01/10/[address] Borrero. Post operative course has been complicated by difficulty with diet (poor PO intake). Today Leandra states she thinks she might have a flu due to body aches, SOB, cramping throughout her stomach, diarrhea. Has not measured her temperatures but feels hot and cold. Leandra reports changed abdominal pain (all over rather than LUQ), diarrhea (one episode yesterday,none today), nausea x 2-3 days. Using Zofran several times/day with some effect. Leandra reports having a hard time breathing at times. Not exertional. No associated chest pain. Denies leg pain. No hemoptysis. Occurring x2-3 days. Has not taken a COVID test. No sick contacts. These recent symptoms have made it harder for Leandra to reach her protein and fluid goals. Yesterdayshe had 8-16 oz of fluid (plus popsickles). No recent vomiting. Leandra states she urinated about 3x yesterday. Endorses lightheadedness/dizziness. Fluids so far today include a few sips of water and one pop sickle. Current Supplements: Vit D3 2,000 IU daily. ED visits last week re: pain/vomiting after eating raw hamburger. Pre-Bariatric Surgery Obesity related medical issues: Denies changes. ?? Problem Baseline issue if checked Comments Diabetes/prediabetes/insulin resistance []? Metabolic syndrome or PCOS []? HTN []? Taking propranolol??for headaches GERD [x]? On PPI for post op ulcer prevention Hyperlipidemia []? CHUN [x]? 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 OA??(back) Liver Disease []? Other [x]? IBS-D??(episodes once a week), usually every day ?? Review of Systems Constitutional: energy level is low, feeling systemically unwell. Neuro: no c/o paresthesias. No changes in memory CV: no chest pain or palpitations. Pulm: Endorses SOB. GI: Endorses abdominal pain, nausea, no recent vomiting. MICROBIOLOGY LAB ANALYST: s/p hyst. Health Habits: Tobacco: Never. ETOH: No alcohol since before surgery. NSAID use: None. Patient Active Problem List Diagnosis Code ??? [...] ? Severe obesity (BMI >= 40) E66.01 Medications/allergies reviewed. Dietary history/ exericse/ activity level: See dietitian note from today's visit for complete dietary evaluation. ? WT (lbs) BMI HT Highest wt Initial Pre-op visit 10/09/22 228.8 39.3 64 237 12/18/22 238 40.8 ? Post-op WT (lbs) BMI ?? %EBW lost 01/29/23?? 207??(reported) ? Preop labs: labs completed. Vit D low ~ 21. Objective: There were no vitals taken for this visit. Pulse: 72 (guided patient through measuring her pulse) Physical Exam- limited d/t telehealth Gen: Alert, pleasant, NAD, appears well Resp: Speaking in full sentences, no gasping. No cough witnessed. Skin: No pallor or diaphoresis visible. No rash noted. Psychiatric: normal mood and affect. Assessment/plan: Leandra Wilks is s/p above procedures, with early post- operative course complicated by poor PO intake (d/t nausea and discomfort in LUQ with intake) now with systemic illness and SOB. Recommended PCP vs. ED evaluation (patient to call PCP's office today), consider ED for evaluation and IV fluids if unable to be seen in PCP's office. Reviewed case with Dr. Borrero who will attempt to move up scheduled UGI series. ?? Reviewed ED precautions, patient verbalizes understanding and agreement. Reviewed protein and fluid goals and strategies to increase intake. Encouraged continued tracking. Bariatric Program Summary report is availabe for patient's review via e- Anni Varela APRN [facility] Bariatric Surgery Program RECOMMENDED BARIATRIC SURGERY PROGRAM POSTOPERATIVE FOLLOW-UP: Follow up: done at 4, 12 and 24 months, and yearly thereafter. High risk patients are evaluated on a more frequent basis. *Supplement recommendations: Multivitamin with minerals twice a day, B12 500 mcg once a day, calcium citrate 600 mg/400 units vitamin D twice a day, iron (ferrous fumarate, carbonyl iron taken with vitamin C 250 mg once a day) for menstruating females or those with CELESTINA. Labwork: Hemogram, ferritin, iron (transferrin) saturation, iron, folate, B1, B12, D (25 hydroxy only), Intact PTH and comprehensive metabolic profile at 4, 12 and 24 months, and yearly. If labwork is done by the primary health and social care teacher: please send a copy to the Bariatric Surgery Program, General Surgery Clinic, [facility], or fax [phone] documented in this encounter Plan of Treatment [...] On track(2021 10:28 AM EST) Jill Colmenares, ROOM SERVICE FOOD SERVICE ATTENDANT Note: Mindfulness/deep breathing practice to reduce cortisol -try for at least 10 minutes a day -try an ap such as headspace I have referred you to our psychologist to work on eating behaviors Health Newspaper Copy Editor is sending hand-outs with exercises for mindful eating, The Pause/STOP and Urge surfing. Patient will review and try implementing some behaviors before we meet again. movement Lifestyle On track(2021 10:29 AM EST) Jill Colmenares, ROOM SERVICE FOOD SERVICE ATTENDANT Note: Exercise goal is 150 min a week, just do some walking, even [address] to start Recommend resistance training 3 times a week -can use [email or web address] Nutrition - 09/26/22 Lifestyle On track(2021 10:29 [...] as of this encounter Visit Diagnoses Diagnosis S/P gastric bypass Bariatric surgery status documented in this encounter Care Teams Neurology Manager Relationship Specialty Start Date End Date Sree High APRN [address] [place] [address] PCP - General Family Medicine 12/19/22 documented as of this encounter
--- OUTSIDE RECORDS SUMMARY | 2024-06-01 06:56 | XMS_ITS | Encounter Summary ---
Author Organization [facility] Address [facility] [place] [address] Care Team Providers Care Supervisor Type Disk Quality Control Name Role Phone Sree High APRN Primary Care Provider +1- [phone] Encounter Details Date Type Department Care Team (Latest Contact Info) Description 03/18/2023 Travel Social History Tobacco Use Types Packs/Day [...] Scheduled Procedures Name Priority Associated Diagnoses Date/Ti tx COLONOSCOPY, DIAGNOSTIC (WRV U 3.26) Biliary stricture [...] On track(2021 10:28 AM EST) Jill Colmenares, CONSTRUCTION INSPECTOR Note: Mindfulness/deep breathing practice to reduce cortisol -try for at least 10 minutes a day -try an ap such as headspace I have referred you to our psychologist to work on eating behaviors Health Swahili Teacher is sending hand-outs with exercises for mindful eating, The Pause/STOP and Urge surfing. Patient will review and try implementing some behaviors before we meet again. movement Lifestyle On track(2021 10:29 AM EST) Jill Colmenares, CONSTRUCTION INSPECTOR Note: Exercise goal is 150 min a [...] on filedocumented in this encounter Care Teams Supervisor Type Disk Quality Control Relationship Specialty Start Date End Date Sree High, CONSTRUCTION INSPECTOR [address] [place] [address] [address] [facility] [address] [place] [address] PCP - General Family Medicine 12/19/22 documented as of this encounter
--- OUTSIDE RECORDS SUMMARY | 2024-06-01 06:56 | XMS_ITS | Encounter Summary ---
Author Organization [facility] Address [facility] [place] [address] Care Team Providers Care Press Operator Apprentice Name Role Phone Sree High APRN Primary Care Provider +1- [phone] Encounter Details Date Type Department Care Team (Late st Contact Info) Description 03/18/2023 Notes Only [place] [address] Anni Varela APRN [facility] [place] [address] Social History Tobacco Use Types Packs/Day Years Used Date Smoking Tobacco: Never Smokeless Tobacco: Never Alcohol Use Standard Drinks/Week Comments Not Currently 0 (1 standard drink = 0.6 oz pur e alcohol) [facility] Inpatient Questions Answer Date Recorded [...] Progress Notes * Anni Varela APRN - 03/18/2023 12:21 PM EDT Returned call to patient's PCP office (spoke to BRYANNA Duarte). Patient is in PCP's office followingattempt at [facility] [place] today. Patient is tachycardic and reporting continued limitation in PO intake. Advised ED at [facility] for further evaluation. documented in this encounter Plan of Treatment [...] psychologist to work on eating behaviors Health Call Center Specialist is sending hand-outs with exercises for mindful [...] on filedocumented in this encounter Care Teams Press Operator Apprentice Relationship Specialty Start Date End Date Sree High APRN [address] [place] [address] PCP - General Family Medicine 12/19/22 documented as of this encounter
--- OUTSIDE RECORDS SUMMARY | 2024-06-01 06:56 | XMS_ITS | Encounter Summary ---
Author Organization [facility] Address [facility] [place] [address] Care Team Providers Care Skein Washer Name Role Phone Sree High APRN Primary Care Provider +1- [phone] Encounter Details Date Type Department Care Team (Late st Contact Info) Description 03/01/2023 Orders Only [place] [address] Iram Borrero MD [facility] [place] [address] Dysphagia, unspecified type Social History Tobacco Use Types Packs/Day Years [...] On track(2021 10:28 AM EST) Jill Colmenares, HAT BODY INSPECTOR Note: Mindfulness/deep breathing practice to reduce cortisol -try for at least 10 minutes a day -try an ap such as headspace I have referred you to our psychologist to work on eating behaviors Health Soda Column Operator is sending hand-outs with exercises for mindful eating, The Pause/STOP and Urge surfing. Patient will review and try implementing some behaviors before we meet again. movement Lifestyle On track(2021 10:29 AM EST) Jill Colmenares, HAT BODY INSPECTOR Note: Exercise goal is 150 min [...] as of this encounter Visit Diagnoses Diagnosis Dysphagia, unspecified type documented in this encounter Care Teams Skein Washer Relationship Specialty Start Date End Date Sree High, BRYANNA [address] [facility] [address] [place] [address] PCP - General Family Medicine 12/19/22 documented as of this encounter
--- OUTSIDE RECORDS SUMMARY | 2024-06-01 06:56 | XMS_ITS | Encounter Summary ---
Author Organization [facility] Address [facility] [place] [address] Care Team Providers Care Director Of Corporate Strategy Name Role Phone Sree High APRN Primary Care Provider +1- [phone] Encounter Details Date Type Department Care Team (Latest Contact Info) Description 01/29/2023 11:00 AM EDT TH Visit (TeleHealth) [place] [address] Anni Varela APRN [facility] [place] [address] Stacey Ly, RD [facility] [place] [address] S/P gastric bypass; Disorder of iron metabolism [...] encounter Patient Instructions * Patient Instructions* Anni Varela APRN - 01/29/2023 11:00 AM EDT BSP support technician Kelsey [phone] and Lorraine [phone] Dietitians: [phone] Surgeons/ nurse practitioners: [phone] Nurse line: [phone] Dear Leandra, Please see your electronic medical record note from today for details we discussed at your visit. Below is some additional general information that you may find helpful. Testing: It would be helpful if you can have your lab work drawn a couple days before your visit norma [facility] facility so the results are available at the time of your follow up visit. If you have labwork done by your primary healthcare specialist before that date, please have a copy sent to the Bariatric Surgery Program. Please call/send my message if you have not heard from us within 2 weeks of having labs work done. Here's the link to [facility] Lab hours and locations: [email or web address] Next visit: Follow up visits are done at 4 months and 12 months after surgery and yearly thereafter. Some patients are evaluated on a more frequent basis. Please call [phone] if you do not receive an appointment [...] Blow dry area on low setting with math and science division chair. Avoid excessive heat and/or sweating as [...] such as Ibuprofen (Advil), Aleve (Naproxen), Excedrin, [place] should be used sparingly after gastric bypass, [...] Our post surgery support group meets at [facility] on the first Saturday of every month from 1:00 PM-2:00 PM. You can attend online or in person. Use the following link to attend online: [email or web address] Nutrition and Activity apps- Baritastic, My Fitness Pal, Lose It, My Plate Internet resources: www.Backdoor www.kooaba www.bariatriceating.com www.gShift Labs.com/blog [facility] facebook page: https://www.facebook.com/[facility] Books & Magazines: - Recipes for Life After Weight Loss Surgery by Anupama Gao - Shrink Yourself by Dr Vic Bond - Eating Well - www.Discoverables.Skataz - Cooking Light- www.cookingHealth Strategies Group.Skataz Anxiety: The Happiness Trap by Kemal Figueroa The Mindfulness and acceptance workbook for anxiety By Sukhdev Roe. Mindful eating: What are you Hungry For? By Ender Biggs The Mindful Diet by Any Gibbs and the [facility] group. Emotional eating: End Emotional Eating by Blaire Kelly Calming the Emotional Storm Jessren Rodriguez documented in this encounter Progress Notes * Anni Varela APRN - 01/29/2023 11:00 AM EDT Images from the original note were not included. [place] [address] BARIATRIC SURGERY VIRTUAL NOTE 1. Reason/purpose for [...] course has been complicated by difficulty with the diet (poor PO intake) and constipation. Since her surgery, Leandra reports intake has been limited by LUQ pain/discomfort with both food and fluid intake. Leandra reports stuck feeling with certain foods. Leandra has been using the food logs we mailed her (has tracked one day so far). Intake yesterday included mashed banana, chicken broth (~1 oz), Gatorade zero (20 oz), water (~8 oz), sugar free popsickle, Ramen noodles (several teaspoons). Today Leandra has had 3-4 oz of water. Protein drink is settling heavier than water. Leandra states she will probably try yogurt today. Leandra feels that thicker fluids (apple sauce, light and fit Salvadorean yogurt) have been easier to get down than water. Leandra has had several instances where she advanced the diet and subsequently developed vomiting/increased abdominal pain. Most recently, 01/26 she ate several shrimp and vomited. The next day she was only able to get in about 4 oz fluid. Patient endorses daily nausea, no recent vomiting (since eating shrimp over the weekend). Using Zofran and Compazine with good effect. Leandra feels Levsin has not been helping. Leandra has been moving her bowels every other day (no straining). Miralax twice a day, colace PRN. Denies syncope, endorses dizziness. Urinating 2-3x/day. Current Supplements: Vit D3 2,000 IU daily. Primary care post op follow up visit: Pt has not been seen by PCP. ED visits last week re: pain/vomiting after [...] once a week), usually every day ?? ROS: No Fever, chills, some nausea, minimal vomiting. Using daily anti-emetics. No Chest pain, SOB or palpitations No bladder concerns or changes (as above). BM are tending toward constipation, see HPI. Appetite: as expected, trying to meet protein/fluid requirement. Social history/support: boyfriend (Coleman). Health Habits: Tobacco: Never. ETOH: No alcohol [...] (d/t nausea and discomfort in LUQ with intake). Symptoms likely exacerbated by prematurely advancing diet. Given low fluid intake, discussed IV fluids. Patient declines to book a visit to come to the clinic for fluids. Reviewed s/s dehydration and recommended patient seek medical evaluation if any occur. -Continue zofran. -Will stop Levsin given no obvious benefit. ?? Reviewed protein and fluid goals and strategies to increase intake. Encouraged continued tracking using paper food logs. Will mail more logs. ?? Continue PPI therapy until at least 3 months post op to decrease the risk of ulcer formation andavoid NSAIDs. ?? Bowel Function: reviewed bowel regimen and importance of movement and fluids. Recommend BM at least every other day. Continue miralax and dulcolax PRN. Call if struggling. ?? Discussion re: continue stage 2 diet x several days before trying stage 3 foods. Do not advance to stage 4 until after 5 weeks post op. Discussed importance of chewing food completely, taking timeto eat, trying to avoid more complex foods at this time, food/fluids etc. ?? See program mgr note re: recommendations regarding vitamin and mineral supplementation, fluid intake and exercise. ?? Additional vitamin and mineral supplement recommendations: continue to hold supplements until follow up in 1 week. RTC in 1 week. Call/rtc sooner prn with questions/concerns or unexplained abdominal pain, prolongednausea, vomiting or inability to hydrate Bariatric Program Summary report is availabe for patient's review via e-DH Anni Varela APRN [facility] Bariatric Surgery Program RECOMMENDED BARIATRIC SURGERY PROGRAM [...] If labwork is done by the primary healthcare specialist: please send a copy to the Bariatric Surgery Program, General Surgery Clinic, [facility], or fax [phone] * Stacey Ly RD - 01/29/2023 11:00 AM EDT Images from the original note were not included. [place]ariat[place] [address] ? BARIATRIC SURGERY VIRTUAL NOTE ?? 1. [...] time of visit. ?? Topics Discussed/Patient Concerns: ? Pt reports constipation has improved, using Miralax, now BM e/o day ? Pt reports nausea but no vomiting since over the weekend, using Zofran and compazine ? Pt used food tracking log for 1 day, reviewed how to use log, encouraged pt to track intake, willsend pt additional log sheets ? Reminded pt to eat meals at 9am, 12pm, 5:30pm ? Discussed supplements, advised pt to wait to start supplements until PO intake increases ?? Social history:??on disability??for multiple medical issues. lives w BF??w 3 of her sons (18-21).?Has 4 children. ?? Social support:??BF??(who is here with her today), mom, mental health counselor, best friend, sons ?? Hobbies:??likes to [employer] [facility] [employer], singing ?? Vision at 2 years post-op:??Healthier [...] ?? Surgery ??01/22/23 ? 1.5 weeks post-op (tele-health, no weight reported) ??01/29/23 207#?? 26%?? 35.5?? 3.5 wks post-op [place] Body Weight (based on BMI of 25):??146# [...] Food Allergies/Intolerances: ??none ?? Tracking Intake: pt tracked 1 day using food tracking log we sent in the mail, encouraged pt to track daily ?? Daily Oral Intake: ?? Breakfast ??3 tsp chicken broth AM Snack Lunch 11/21 mashed banana PM Snack Dinner 6 tsp chicken broth, 1 SF popsicle HS Snack ? Protein- grams/day: ??0g Hydrating fluids??- oz/day: 32 oz (8 oz water, 20 oz Gatorade zero, 11/21 c chicken broth, 1 SF pop) Soda: ??n/a ETOH: ??none Caffeine: ??n/a Meals per day: ??2 ?? Other: ??? Vomiting/ regurgitation: no vomiting since Saturday ??? Nausea: ??+nausea, Zofran helps ??? Constipation/diarrhea: +constipation: improved, using Miralax, now BM e/o day ?? Exercise: not discussed ? ASSESSMENT: Patient is 3.5 wks s/p bariatric surgery w/ poor PO intake. Pt is below protein and fluid goals. Strongly encouraged pt to track intake, reviewed how to track in paper food logs sent to pt. Discussedtrying to have protein drink, sammarinese yogurt, soup, etc at meal times and sipping on water in-betweenmeals. Suggested pt have meals at 9am, 12pm, and 5:30pm. Discussed following stage 2 diet for 2-3 days and then advancing to stage 3 diet. Discussed thickening liquids if helpful for PO tolerance. Reviewed supplements, advised pt to wait to start supplements until PO intake improves. Will discuss starting supplements once she is able to increase PO intake more consistently. ? PLAN: ??? Evaluation by Anni Varela APRN today. ??? Provided support/encouragement and reinforced importance of meeting nutritional goals. ContinueStage 3 diet. Advance to Stage 4 diet starting 5 weeks post-op. ? Aim for 60-80g of protein/day- eat protein at all meals and snacks, eat protein first ? Aim for 48-64 oz hydrating fluid/day ? Track intake ? Have meals at 9am, 12pm, 5:30pm ??? Reviewed vitamin and mineral supplement recommendations. ? Advised pt to wait to start supplements until PO intake increases ??? Follow-up in 1 wk, sooner if requested. documented in this encounter [...] psychologist to work on eating behaviors Health Continuous Dryout Operator is sending hand-outs with exercises for [...] metabolism documented in this encounter Care Teams Director Of Corporate Strategy Relationship Specialty Start Date End Date Sree High APRN [address] [place] [address] PCP - General Family Medicine 12/19/22 documented as of this encounter
--- OUTSIDE RECORDS SUMMARY | 2024-06-01 06:56 | XMS_ITS | Encounter Summary ---
Author Organization [facility] Address [facility] [place] [address] Care Team Providers Care Medical Device Sales Representative Name Role Phone Sree High APRN Primary Care Provider +1- [phone] Encounter Details Date Type Department Care Team (Late st Contact Info) Description 03/12/2023 Telephone [place] [address] Anni Varela APRN [facility] [place] [address] Social History Tobacco Use Types Packs/Day Years [...] Telephone Encounter - Anni Varela APRN - 03/12/2023 11:52 AM EDT Called patient to check in in re: cancelled her UGI series today. ??She report she's too sick to come to the hospital for the study. ??She reports vomiting 4- 5x/day for the last 1-2 weeks. She was seen in her local ED on 03/09 (see note) and was dx with presumed viral gastro with hypokalemia. A/P: Patient s/p laparoscopic Saúl-en-Y gastric bypass??on 01/10/23??with Dr. Borrero with recovery complicated by poor PO intake d/t abdominal discomfort (work up thus far including CT x 3, EGD, labs), now with vomiting. -Reviewed ED precautions. -Notified surgeon. -Patient denies further questions/concerns at this time. Reviewed with Dr. Borrero. MRCP ordered. Order to be routed to local hospital. Will switch Leandra'snext follow up from telehpone to in person. Patient verbalizes understanding. Encouraged increased fluid intake (patient reports she is working on eating Gatorade ice cubes - had 12-15 yesterday). Of[address] follow up call for support with diet, patient declines. Questions encouraged and answered. documented in this encounter [...] psychologist to work on eating behaviors Health Stone Trimmer is sending hand-outs with exercises for mindful [...] filedocumented in this encounter Care Teams Medical Device Sales Representative Relationship Specialty Start Date End Date Sree High APRN [address] [place] [address] PCP - General Family Medicine 12/19/22 documented as of this encounter
--- OUTSIDE RECORDS SUMMARY | 2024-06-01 06:56 | XMS_ITS | Encounter Summary ---
Author Organization [facility] Address [facility] [place] [address] Care Team Providers Care Automobile Damage Field Appraiser Name Role Phone Sree High APRN Primary Care Provider +1- [phone] Encounter Details Date Type Department Care Team ([facility] st Contact Info) Description 02/25/2023 Ancillary Procedure [place] [id number] Social History Tobacco Use Types Packs/Day Years [...] track(2021 10:28 AM EST) Jill Colmenares, DESIGN ENGINEERING INTERN Note: Mindfulness/deep breathing practice to reduce cortisol -try for at least 10 minutes a day -try an ap such as headspace I have referred you to our psychologist to work on eating behaviors Health Integration Director is sending hand-outs with exercises for mindful eating, The Pause/STOP and Urge surfing. Patient will review and try implementing some behaviors before we meet again. movement Lifestyle On track(2021 10:29 AM EST) No Jill Farooq, DESIGN ENGINEERING INTERN Note: Exercise goal is 150 min a [...] Associated Diagnosis Comments FILM LIBRARY STORAGE ONLY ULTRASOUND STUDY STAT 02/25/2023 12:00 AM EDT documented in this encounter Results * Film Library- Storage Only Ultrasound Study (02/25/2023 12:00 AM EDT) Narrative Dicom, Auditing User - 03/18/2023 7:58 PM EDT This exam is auto-finalizing. It's purpose is for storage only. Iram Borrero MD [facility] FILM LIBRARY ORD ERABLES documented in this encounter Visit Diagnoses Not on filedocumented in this encounter Care Teams Automobile Damage Field Appraiser Relationship Specialty Start Date End Date Sree High, DESIGN ENGINEERING INTERN [address] [place] [address] PCP - General Family Medicine 12/19/22 documented as of this encounter
--- OUTSIDE RECORDS SUMMARY | 2024-06-01 06:56 | XMS_ITS | Encounter Summary ---
Author Organization [facility] Address [facility] [place] [address] Care Team Providers Care Devulcanizer Loader Name Role Phone Sree High APRN Primary Care Provider +1- [phone] Encounter Details Date Type Department Care Team (Late st Contact Info) Description 03/05/2023 4:32 PM EDT - 03/05/2023 5:43 PM EDT Surgery [place] [address] Iram Borrero MD [facility] [address] EGD, UPPER GI ENDOSCOPY (WRVU 2.09) Social History Tobacco Use Types Packs/Day Years [...] Sign Reading Time Taken Comments Blood Pressure 126/72 03/05/2023 5:34 PM EDT Pulse 104 03/05/2023 2:57 PM EDT Temperature 37.9 ??C (100.2 ??F) 03/05/2023 5:34 PM E DT Respiratory Rate 10 03/05/2023 5:34 PM EDT Oxygen Saturation 96% 03/05/2023 5:34 PM EDT Inhaled Oxygen Concentration - - [...] 6-8 hours after your surgery, please call [phone] before 5 PM weekdays and [phone] after 5 PM and weekends to discuss [...] Doctor for: The number for questions is [phone] before 5 PM weekdays and [phone] after 5 PM and weekends. Follow-up: Please call [phone] (clinic number for appointments) to confirm or change the date and time ofyour appointment. You should keep your appointment for the swallow study on 03/12/2023 which will help us further evaluate your stomach and intestine. Future Appointments Date Time Provider Department Center 03/12/2023 3:00 PM [facility] DX ROOM 5 Xray [facility] Rad 03/20/2023 12:10 PM Iram Borrero MD [facility] SURG [facility] 04/26/2023 9:30 AM Anita Aviles APRN [facility] SURG [facility] documented in this encounter Medications at Time [...] Borrero MD - 03/05/2023 4:50 PM EDT [facility] General Surgery History and Physical History [...] Borrero MD General Surgery Minimally Invasive Surgery [phone] documented in this encounter Miscellaneous Notes * Op Note - Iram Borrero MD - 03/05/2023 5:05 PM EDT [facility] Operative Note Patient Name: Leandra Wilks : [id number] MR#: [id number] Case Date: 03/05/2023 Surgeon: Surgeon(s) and Role: [...] Scheduled Procedures Name Priority Associated Diagnoses Date/Ti mo COLONOSCOPY, DIAGNOSTIC (WRV U 3.26) Biliary stricture [...] psychologist to work on eating behaviors Health Skilled Nursing Case Manager is sending hand-outs with exercises for [...] Associated Diagnosis Comments Upper GI Endoscopy, Diagnostic (41777) Yes 03/05/2023 4:56 PM EDT Dysphagia, unspecified type UPPER GI ENDOSCOPY Routine 03/05/2023 2: 49 PM EDT Dysphagia, unspecified type documented in this encounter Visit Diagnoses Diagnosis Dysphagia, unspecified type Dysphagia, unspecified type documented in this encounter [...] Starting on e 03/05/23 at 1503, Until Sat03/05/23 at 2035, Per Protocol, Radiology Contrast, Routine barium sulfate (Ezpaque) 60% (w/v) oral liquid 0-710 mL 0-710 mL, Oral, ONCE PRN, 1 dose, Starting on Sat03/05/23 at 1503, Until Sat03/05/23 at 2035, Per Protocol, Radiology Contrast, Routine documented in this encounter Active and Recently Administered Medications Times are shown in EDT. PRN Medication Order 03/03/2023 03/04/2023 03/05/2023 barium sulfate (E-Z Disk) tablet 0-700 mg 0-700 mg, Oral, ONCE PRN, 1 dose, Starting on 03/05/23 at 1503, Until Tu03/05/23 at 2035, Per Protocol, Radiology Contrast, Routine barium sulfate (E-Z-HD) 98% oral liquid 0-120 mL 0-120 mL, Oral, ONCE PRN, 1 dose, Starting on Tu03/05/23 at 1503, Until Tu03/05/23 at 2035, Per Protocol, Radiology Contrast, Routine barium sulfate (Ezpaque) 60% (w/v) oral liquid 0-710 mL 0-710 mL, Oral, ONCE PRN, 1 dose, Starting on Tu03/05/23 at 1503, Until Tu03/05/23 at 203, Per Protocol, Radiology Contrast, Routine documented in this encounter Care Teams Devulcanizer Loader Relationship Specialty Start Date End Date Sree High APRN [address] [place] [address] PCP - General Family Medicine 12/19/22 documented as of this encounter
--- OUTSIDE RECORDS SUMMARY | 2024-06-01 06:56 | XMS_ITS | Encounter Summary ---
Author Organization [facility] Address [facility] [place] [address] Care Team Providers Care Plasterer Spray Gun Name Role Phone Sree High APRN Primary Care Provider +1- [phone] Encounter Details Date Type Department Care Team (Latest Contact Info) Description 02/18/2023 Travel Social History Tobacco Use Types Packs/Day [...] to work on eating behaviors Health Senior Animal Trainer is sending hand-outs with exercises for mindful [...] on filedocumented in this encounter Care Teams Plasterer Spray Gun Relationship Specialty Start Date End Date Sree High APRN [address] [place] [address] [address] [place] [address] PCP - General Family Medicine 12/19/22 documented as of this encounter
--- OUTSIDE RECORDS SUMMARY | 2024-06-01 06:56 | XMS_ITS | Encounter Summary ---
Author Organization [facility] Address [facility] [place] [address] Care Team Providers Care Natural Resources Engineer Name Role Phone Sree High APRN Primary Care Provider +1- [phone] Encounter Details Date Type Department Care Team (Late st Contact Info) Description 03/13/2023 Ancillary Procedure [place] [phone] Social History Tobacco Use Types Packs/Day Years [...] On track(2021 10:28 AM EST) Jill Colmenares, APPRENTICE TECHNICIAN Note: Mindfulness/deep breathing practice to reduce cortisol -try for at least 10 minutes a day -try an ap such as headspace I have referred you to our psychologist to work on eating behaviors Health Driller'S Offsider is sending hand-outs with exercises for mindful eating, The Pause/STOP and Urge surfing. Patient will review and try implementing some behaviors before we meet again. movement Lifestyle On track(2021 10:29 AM EST) No Jill Farooq, APPRENTICE TECHNICIAN Note: Exercise goal is 150 min [...] AND PELVIS STAT 03/13/2023 12:00 AM EDT documented in this encounter Results * Film Library- Storage Only CT Abdomen & Pelvis (03/13/2023 12:00 AM EDT) Narrative Dicom, Auditing User - 03/18/2023 8:00 PM EDT This exam is auto-finalizing. It's purpose is for storage only. Iram Borrero MD [facility] FILM LIBRARY ORD ERABLES documented in this encounter Visit Diagnoses Not on filedocumented in this encounter Care Teams Natural Resources Engineer Relationship Specialty Start Date End Date Sree High, APPRENTICE TECHNICIAN [address] [place] [address] PCP - General Family Medicine 12/19/22 documented as of this encounter
--- OUTSIDE RECORDS SUMMARY | 2024-06-01 06:56 | XMS_ITS | Encounter Summary ---
Author Organization [facility] Address [facility] [place] [address] Care Team Providers Care Copy Clerk Name Role Phone Sree High APRN Primary Care Provider +1- [phone] Encounter Details Date Type Department Care Team (Late st Contact Info) Description 01/30/2023 Orders [place] [address] Iram Borrero MD [facility] [place] [address] Dysphagia, unspecified type Social History Tobacco Use [...] On track(2021 10:28 AM EST) Jill Colmenares, OFFICE TECHNOLOGY INSTRUCTOR Note: Mindfulness/deep breathing practice to reduce cortisol -try for at least 10 minutes a day -try an ap such as headspace I have referred you to our psychologist to work on eating behaviors Health Drapery Cutter Machine is sending hand-outs with exercises for mindful eating, The Pause/STOP and Urge surfing. Patient will review and try implementing some behaviors before we meet again. movement Lifestyle On track(2021 10:29 AM EST) Jill Colmenares, OFFICE TECHNOLOGY INSTRUCTOR Note: Exercise goal is 150 min a [...] type documented in this encounter Care Teams Copy Clerk Relationship Specialty Start Date End Date Sree High, BRYANNA [address] [facility] [place] [address] PCP - General Family Medicine 12/19/22 documented as of this encounter
--- OUTSIDE RECORDS SUMMARY | 2024-06-01 06:56 | XMS_ITS | Encounter Summary ---
Author Organization [facility] Address [facility] [place] [address] Care Team Providers Care Proposal Editor Name Role Phone Sree High APRN Primary Care Provider +1- [phone] Encounter Details Date Type Department Care Team (Late st Contact Info) Description 03/12/2023 Orders Only [place] [address] Iram Borrero MD [facility] [address] [place] [address] Hyperbilirubinemia Social History Tobacco Use Types Packs/Day Years [...] On track(2021 10:28 AM EST) Jill Colmenares, MACHINE SPREADER Note: Mindfulness/deep breathing practice to reduce cortisol -try for at least 10 minutes a day -try an ap such as headspace I have referred you to our psychologist to work on eating behaviors Health Commissions Analyst is sending hand-outs with exercises for mindful eating, The Pause/STOP and Urge surfing. Patient will review and try implementing some behaviors before we meet again. movement Lifestyle On track(2021 10:29 AM EST) Jill Colmenares, MACHINE SPREADER Note: Exercise goal is 150 min a [...] as of this encounter Visit Diagnoses Diagnosis Hyperbilirubinemia Jaundice, unspecified, not of documented in this encounter Care Teams Proposal Editor Relationship Specialty Start Date End Date Sree High, MACHINE SPREADER [address] [place] [address] PCP - General Family Medicine 12/19/22 documented as of this encounter
--- OUTSIDE RECORDS SUMMARY | 2024-06-01 06:56 | XMS_ITS | Encounter Summary ---
Author Organization [facility] Address [facility] [place] [address] Care Team Providers Care Linoleum Tile Layer Name Role Phone Sree High APRN Primary Care Provider +1- [phone] Encounter Details Date Type Department Care Team (Late st Contact Info) Description 01/30/2023 Telephone [place] [phone] Anni Varela APRN [facility] [place] [address] Social History Tobacco Use Types Packs/Day Years [...] Telephone Encounter - Anni Varela APRN - 01/30/2023 1:10 PM EDT Called patient to discuss UGI series. Discussed thinner vs.thicker fluids. Leandra reports yesterday the yogurt she tried went down better than water. Still struggling to meet protein and fluid goals. Advised trial of Thick It (with Crystal light rather than plain water). Questions encouraged and answered. documented in this [...] psychologist to work on eating behaviors Health Supervisor Reactor Fueling is sending hand-outs with exercises for mindful [...] on filedocumented in this encounter Care Teams Linoleum Tile Layer Relationship Specialty Start Date End Date Sree High APRN [address] [place] [address] PCP - General Family Medicine 12/19/22 documented as of this encounter
--- OUTSIDE RECORDS SUMMARY | 2024-06-01 06:56 | XMS_ITS | Encounter Summary ---
Author Organization [facility] [place] [address] Care Team Providers Care Pipe Tester Name Role Phone Sree High APRN Primary Care Provider +1- [phone] Encounter Details Date Type Department Care Team (Late st Contact Info) Description 02/18/2023 Telephone [place] [phone] Anni Varela DIESEL POWERPLANT SUPERVISOR [facility] [place] [address] Social History Tobacco Use Types Packs/Day Years [...] Telephone Encounter - Anni Varela APRN - 02/18/2023 3:45 PM EDT Patient is s/p laparoscopic Saúl-en-Y gastric bypass??on 01/10/23?with Dr. Borrero. Called patient to follow up on My message below. Still have daily nausea, no vomiting in about 1 week. Leandra reports she is doing well on fluids (about 32 oz yesterday, water and V8), still strugglingwith protein (none per patient). Not currently doing any protein drinks/yogurt. Leandra has protein powder at home but has not yet tried it. Encouraged her to try adding it to V8. A/P: Patient 5 weeks s/p RNY with difficulty with PO intake. -Reviewed strategies to increase protein and fluids. -Reviewed ED precautions. -Offered RD call, patient declines. -Encouraged patient to call back if further concerns arise. ----- Message from Norma Felder RN sent at 02/18/2023 9:28 AM EDT ----- Regarding: FW: Pain and nausea Contact: ----- Message ----- From: Leandra Back Sent: 02/18/2023 9:24 AM EDT To: [facility] General Surgery Nurse Subject: Pain and nausea I'm still not able to eat food. Yogurt makes me sick,just the smell or look. I have been drinking v8 juice which seems to go down pretty well . Although it does cause pain on the left side of my stomach like water and other fluids. I'm nauseous everyday with no relief from the Zofran or compazine. I looked up the swallow test and I am really nervous about it. I'm afraid that I will throw up everything. Also if I end up having the dilatation,can I be sedated? I've never been good awake while tubes go down my throat. Thank you, Leandra back documented in this encounter Plan of Treatment [...] On track(2021 10:28 AM EST) Jill Colmenares, DIESEL POWERPLANT SUPERVISOR Note: Mindfulness/deep breathing practice to reduce cortisol -try for at least 10 minutes a day -try an ap such as headspace I have referred you to our psychologist to work on eating behaviors Health Air Conditioning Unit Assembler is sending hand-outs with exercises for mindful eating, The Pause/STOP and Urge surfing. Patient will review and try implementing some behaviors before we meet again. movement Lifestyle On track(2021 10:29 AM EST) Jill Colmenares, DIESEL POWERPLANT SUPERVISOR Note: Exercise goal is 150 min a [...] on filedocumented in this encounter Care Teams Pipe Tester Relationship Specialty Start Date End Date Sree High, BRYANNA [address] [facility] [[email or web address] [address] [place] [address] PCP - General Family Medicine 12/19/22 documented as of this encounter
--- OUTSIDE RECORDS SUMMARY | 2024-06-01 06:56 | XMS_ITS | Encounter Summary ---
Author Organization Formerly [facility] [place] [address] Care Team Providers Care Boat Officer Name Role Phone Sree High APRN Primary Care Provider [phone] Reason for Visit * Reason Comments Emesis Dehydration * Auth/Cert (Routine) Specialty Diagnoses / Procedures Referred By Chela t Referred To Contact Diagnoses Abdominal pain Procedures ER Iram Wright MD [facility] [place] [address] [facility] Referral ID Status Reason Start Date Expiration Date Visits Re quested Visits Authorized [id number] 1 1 Encounter Details Date Type Department Care Team ([facility] Contact Info) Description 03/20/2023 11:30 AM EDT - 03/20/2023 12:00 PM EDT [place] [address] Gerber Salomon MD [facility] [place] [address] EGD, UPPER GI ENDOSCOPY (WRVU 2.09) Social History Tobacco Use Types Packs/Day Years Used Date Smoking Tobacco: Never Smokeless Tobacco: Never Alcohol Use Standard Drinks/Week Comments Not Currently 0 (1 standard drink = 0.6 oz pur e alcohol) [facility] Inpatient Questions Answer Date Recorded Does [...] Sign Reading Time Taken Comments Blood Pressure 140/100 03/20/2023 10:52 AM EDT Pulse 92 03/20/2023 10:52 AM EDT Temperature 36.1 ??C (97 ??F) 03/20/2023 10:52 AM EDT Respiratory Rate 18 03/20/2023 10:52 AM EDT Oxygen Saturation 95% 03/20/2023 10:52 AM EDT Inhaled Oxygen Concentration - - [...] with possibility of toxicity causing symptoms. Clinical balance wheel hand filer was consulted who recommended completely stopping Lamictal. [...] who have questions please contact the health intensive care unit nurse that requested your imagingfirst. Electronically signed by: Erlin Castorena DO [facility] ([phone]), at 03/21/2023 12:49 PM MRI Brain wwo Contrast (Generic) Result Date: 03/24/2023 EXAMINATION: MRI BRAIN WWO CONTRAST (GENERIC), MRI ORBIT WWO CONTRAST CLINICAL HISTORY: Dizziness, non-specific dizziness, diplopia, rule out stroke? (accession [id number]), right eye weakness, diplopia, concern for possible inferior rectus infiltration or inflamation vs. possible optic neuritis (acce ssion [id number]). Right-sided weakness, diplopia, concerning for possible inferior [...] who have questions please contact the health intensive care unit nurse that requested your imaging first. Cholangiopancreatography [...] visceral organs, gastrointestinal tract, and vascular structures. Pecan Grower Images: Noncontributory. Inferior thorax: Visualized structures within [...] who have questions please contact the health intensive care unit nurse that requested your imaging first. Electronically signed by: Maximo Forrest DO, [facility] ([phone]), at 03/20/2023 7:59 AM Film Library- Storage [...] non-specific dizziness, diplopia, rule out stroke? (accession [id number]), right eye weakness, diplopia, concern for possible inferior rectus infiltration or inflamation vs. possible optic neuritis (acce ssion [id number]). Right-sided weakness, diplopia, concerning for possible inferior [...] who have questions please contact the health intensive care unit nurse that requested your imaging first. DOC: [...] who have questions please contact the health intensive care unit nurse that requested your imaging first. Electronically signed by: Poppy Webster MD, [facility] ([phone]), at 03/19/2023 1:29 PM DH OR Endoscopy [...] Loli Valerio, PhD Weight and Wellness at [facility] Arrive at: Home [phone] To view instructions for your video visit, click here, or visit this website: [email or web address] If you have not previously downloaded the DCampaignAmp patient portal software, Preo, or the Zoom marco a, please do [...] RD; Anni Varela APRN General Surgery at [facility] Arrive at: Director Of Respiratory Therapy Area 4L [phone] Future Orders Complete By Expires Referral to [...] home with her at all times. Called [facility] in [place], [place], where she lives. There is vestibular [...] Instructions ??? You have a referral to [facility] Ear, Nose and Throat clinic for further evaluation of dizziness. They will call you to scheduled an appointment. ??? A referral has been faxed to [facility] in [place]. [place] for vestibular physical therapy. If you do not hear from them in one week, please call the hospital to follow up on that referral. o Their phone number is . Call Doctor for: ??? Persistent nausea or vomiting ??? Any fevers greater than 101.3 F For questions or concerns during business hours please call the Surgery Clinic at [phone] before 5 PM on weekdays. For questions after hours and on weekends please call the hospital news wire photo operator at [phone] and ask for the General Surgery resident personal banking assistant. They may not be familiar with your [...] try a Dulcolax suppository. Follow-up: Please call [phone] (clinic number for appointments) to confirm or change the date and time of your appointment. Future Appointments Date Time Provider Department Center 04/02/2023 9:00 AM Loli Valerio, PhD [facility] WEIGHT [facility] 04/26/2023 2:00 PM Anni Varela APRN [facility] SURG [facility] General Instructions None Future Appointments and Orders Future Appointments and Orders Future Appointments Provider Department Dept Phone 04/02/2023 9:00 AM Loli Valerio, PhD Weight and Wellness at [facility] Arrive at: Home [phone] To view instructions for your video visit, click here, or visit this website: [email or web address] If you have not previously downloaded the DCampaignAmp patient portal software, Preo, or the Zoom marco a, please do [...] RD; Anni Varela APRN General Surgery at [facility] Arrive at: Director Of Respiratory Therapy Area [phone] Future Orders Complete By Expires Referral to [...] home with her at all times. Called [facility] in [place], [place], where she lives. There is vestibular [...] Surgery Fellow, PGY-6 03/29/23 12:24 PM MISpager [phone] Primary [place] Physician: Sree High, BEAUTY SALES ADVISOR [address] [facility] [address] [address] documented in this encounter Discharge Instructions * Patient Instructions* Joan Solorzano PA - 03/29/2023 8:17 AM EDT Discharge Instructions You have a referral to [facility] Ear, Nose and Throat clinic for further evaluation of dizziness. They will call you to scheduled an appointment. A referral has been faxed to [facility] in [facility] for vestibular physical therapy.If you do not hear from them in one week, please call the hospital to follow up on that referral. Their phone number is . Call Doctor for: Persistent nausea or vomiting Any fevers greater than 101.3 F For questions or concerns during business hours please call the Surgery Clinic at [phone] before 5 PM on weekdays. For questions after hours and on weekends please call the hospital news wire photo operator at [phone] and ask for the General Surgery resident personal banking assistant. They may not be familiar with your [...] try a Dulcolax suppository. Follow-up: Please call [phone] (clinic number for appointments) to confirm or change the date and time of your appointment. Future Appointments Date Time Provider Department Center 04/02/2023 9:00 AM Loli Valerio, PhD [facility] WEIGHT [facility] 04/26/2023 2:00 PM Anni Varela APRN [facility] SURG [facility] documented in this encounter Medications at Time [...] discharged to home. IV removed, site benign. book sewer remains unchanged from previous assessment. Pt management discussed, pain tolerable. Pt has all belongings and supplies needed. Pt received After Visit Summary and prescriptions, reviewed and patient verbalizes understanding of AVS. All q uestions answered. Pt encouraged to call with questions or concerns. Pt dc'ed to home with family. Pt expressed thanks for care received by this verse writer and [facility] staff during hospitalization. * Cl Goodman RN [...] patch to help with double vision * Mary Crawford, PT - 03/28/2023 2:06 PM EDT [...] home with her at all times. Called [facility] in [place], [place], where she lives. There is vestibular [...] Physical Therapy: 30 Billing Code: TEF ANIYA CRAWFORD PT Pager: [phone] Physical Therapy Inpatient Rehabilitation Department * Dick [...] of cessation. She was seen by clinical balance wheel hand filer with recommendation to stop Lamicatal altogether. At [...] Bariatric Surgery 12:06 PM 03/28/23 Service pager: [phone] Associated attestation - Iram Borrero MD - [...] on when OOB Surveillance [continuous indirect monitoring]: Maismo * Trinidad Chaves RN - 03/27/2023 6:55 PM EDT OUTCOME EVALUATION NOTE: OUTCOME SUMMARY: Patient AOx4, VSS on RA. Denies nausea/vomiting, CP, SOB. Pain controlled w/ scheduled and PRN medications, see MAR. Incision to abdomen ELLEN. Patient voiding to BSC w/ SBA. 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 Patient sleeping in between care. PLAN MOVING FORWARD: Pain management Psych consult Mobilize D/C planning INDIVIDUALIZED FALL PREVENTION INTERVENTIONS: Patient-specific fall risk factors per assessment: [current deficits]: Pain, hospital environment Assistance [level of assistance required for transfers and ambulation]: SBA Supervision [direct monitoring required during toileting and ADLs]: Eyes on Surveillance [continuous indirect monitoring]: Alaina * Pito Baltazar, KO - 03/27/2023 1:55 PM EDT Occupational Therapy [...] 29.4) performed by Iram Borrero MD at [facility] OR ??? PRO UPPER GI ENDOSCOPY, DIAGNOSTIC N/A 01/10/2023 ?? EGD, UPPER GI ENDOSCOPY performed by Iram Borrero MD at [facility] OR ??? PRO UPPER GI ENDOSCOPY, DIAGNOSTIC N/A 03/05/2023 ?? EGD, UPPER GI ENDOSCOPY (WRVU 2.09) performed by Iram Borrero MD at [facility] OR ?? Active Non-Hospital Problems ?? [...] discharge: to be determined Anticipated Discharge Disposition: [facility] bed rehabilitation facility Daily schedule / Staff [...] Occupational Therapy: 33 (SCHM X1 TAF X1 (6297-5865)) Pager: [phone] Pito Baltazar OT 03/27/2023 Occupational Therapy Rehabilitation Department * Scout Herman Ortega, BUILDING CONSTRUCTION PROFESSOR - 03/27/2023 10:20 AM EDT Physical Therapy [...] Discharge planning and verbalize understanding. Assessment: Leandra Wliks was seen today for physical therapy treatment [...] TE-F x 2 HERMAN VIRAMONTES PTA Pager: [phone] Physical Therapy Inpatient Rehabilitation Department * Joan Solozrano PA - 03/27/2023 8:57 AM EDT Minimally [...] into home apartment ?? Seen by clinical balance wheel hand filer yesterday w/ recommendation to stop Lamictal altogether [...] history significant for morbid obesity, GERD, CHNU, IBS, depression and laparoscopic Renato-en-Y gastric bypass [...] of cessation. She was seen by clinical balance wheel hand filer yesterday with recommendation to stop Lamicatal altogether. [...] Bariatric Surgery 9:10 AM 03/27/23 Service pager: [phone] Associated attestation - Iram Borrero MD - [...] Patient voiding to BSC w/ SBA. 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 Patient sleeping in between care. PLAN [...] BILIDIR 0.4 (H) 03/20/2023 CRP 4.5 03/26/2023 [id number] 139 12/18/2022 [id number] 612 03/21/2023 25OHVITD 34 03/26/2023 SFOLATE 4.0 (L) 03/21/2023 IRON 80 03/26/2023 No results found for: POCGLU Patient Lines/Drains/Airways Status Active Nutritional LDAs Name Placement date Placement time Site Days Peripheral IV Line - Single Lumen 03/25/23 175 cephalic vein (lateral side of arm), right 22 gauge;1.75 in length 03/25/23 175 -- 1 Oxygen Therapy / Airway Device: [...] of this encounter: 78.5 kg (173 lb). [place] Body Weight (IBW) (kg): 54.55 Usual Body [...] in the setting of chronic illness (Agnes burnett al, JPEN J Parenteral Enteral Nutr. 2011; 36(3): 273-83) Nutrition to continue to follow up while inpatient FIOR RYAN RD * Pito Baltazar, KO - 03/26/2023 9:15 AM EDT Occupational Therapy [...] 29.4) performed by Iram Borrero MD at [facility] OR ??? PRO UPPER GI ENDOSCOPY, DIAGNOSTIC N/A 01/10/2023 ?? EGD, UPPER GI ENDOSCOPY performed by Iram Borrero MD at [facility] OR ??? PRO UPPER GI ENDOSCOPY, DIAGNOSTIC N/A 03/05/2023 ?? EGD, UPPER GI ENDOSCOPY (WRVU 2.09) performed by Iram Borrero MD at [facility] OR ?? Active Non-Hospital Problems ?? [...] Occupational Therapy: 45 (SCHM X1 TAF X2 (3212-8612)) Pager: [phone] Pito Baltazar OT 03/26/2023 Occupational Therapy Rehabilitation Department * [...] Flexor digitorum profundus Digit II-V flexion / tower watchman 5 5 L2-3 Iliopsoas Hip flexion 5 [...] who have questions please contact the health intensive care unit nurse that requested your imaging first. Electronically signed by: Poppy Webster MD, [facility] ([phone]), at 03/19/2023 1:29 PM MRI Cholangiopancreatography WO [...] who have questions please contact the health intensive care unit nurse that requested your imaging first. Electronically signed by: Maximo Forrest DO, [facility] ([phone]), at 03/20/2023 7:[address] Head wo Contrast (Generic) (Exam End: 03/21/2023 12:34 PM) Impression Normal brain CT. Thank you for letting us participate in the care of this patient. If you are a health care provider and have any questions regarding this report, please contact the number below. For patients who have questions please contact the health intensive care unit nurse that requested your imaging first. Electronically signed by: Erlin Castorena DO, [facility] ([phone]), at 03/21/2023 12:49 PM MRI Orbit wwo Contrast (Exam End: 03/24/2023 11:16 AM) Impression 1. Normal brain. 2. Normal orbits. Thank you for letting us participate in the care of this patient. If you are a health care provider and have any questions regarding this report, please contact the number below. For patients who have questions please contact the health intensive care unit nurse that requested your imaging first. Brain wwo Contrast (Generic) (Exam End: 03/24/2023 11:16 AM) Impression 1. Normal brain. 2. Normal orbits. Thank you for letting us participate in the care of this patient. If you are a health care provider and have any questions regarding this report, please contact the number below. For patients who have questions please contact the health intensive care unit nurse that requested your imaging first. Orthostatics [...] management). ?? Continue high-dose thiamine. Neurology Consult #[id number] Caron Conde MD Neurology PGY3 03/26/2023 Associated attestation - Darinel Flores MD - 04/05/2023 8:38 AM EDT Neurology Attending Note Darinel Flores MD PhD (pager [phone]) I have seen and examined Leandra Wilks [...] 0701 - 03/26 0700 In: 2960 [P.O.:580; I.V.:5] Out: - PE: General: Alert, no acute [...] Bariatric Surgery 11:56 AM 03/26/23 Service pager: [phone] Continue holding lamictal per discussion with Dr. [...] timing of restarting lamictal. Recommended discussionwith clinical balance wheel hand filer to determine if continued holding of medication would be of benefit. Would not recommend any more invasive evaluation at this time. If symptoms persist, could consider ENT evaluation but does not require continued inpatient treatment/observation. Discussed non-urgent case with clinical balance wheel hand filer who will evaluate patient. Lamictal level ordered. Continue supportive care. Dispo: acute rehab recommended by PT at this time, pending placement Natalee Winn MD 03/26/23 1:35 PM MISpager [phone] * Candelaria Fish RN - 03/26/2023 4:42 [...] 18.46) performed by Iram Borrero MD at [facility] OR ??? PRO LAP GASTRIC BYPASS/RENATO-EN-Y N/A 01/10/2023 @LAPAROSCOPIC GASTROPLASTY W/ RENATO-EN-Y CONSTRUCTION (WRVU 29.4) performed by [facility]at [facility] OR ??? PRO LAP, DIAGNOSTIC ABDOMEN N/A 03/22/2023 LAPAROSCOPY, DIAGNOSTIC, ABDOMEN (WRVU 5.14) performed by Iram Borrero MD at [facility] OR ??? PRO UPPER GI ENDOSCOPY, DIAGNOSTIC N/A 01/10/2023 EGD, UPPER GI ENDOSCOPY performed by Iram Borrero MD at [facility] OR ??? PRO UPPER GI ENDOSCOPY, DIAGNOSTIC N/A 03/05/2023 EGD, UPPER GI ENDOSCOPY (WRVU 2.09) performed by Iram Borrero MD at [facility] OR ??? PRO UPPER GI ENDOSCOPY, DIAGNOSTIC N/A 03/20/2023 EGD, UPPER GI ENDOSCOPY (WRVU 2.09) performed by Gerber Salomon MD at [facility] ENDOSCOPY Active Non-Hospital Problems Diagnosis ? ? [...] exercises in horizontal and vertical and provided [facility] Education: patient has been educated [...] EVAL LOW COMPLEXITY) Felicia Oneal, PT Pager: [phone] Physical Therapy Inpatient Rehabilitation Department * Eva [...] L Elbow flexion 5/5 R, 5/5 L Senior Investment Manager LE: 5/5 R, 5/5 L Hip flexion [...] who have questions please contact the health intensive care unit nurse that requested your imaging first. Electronically signed by: Poppy Webster MD, [facility] ([phone]), at 03/19/2023 1:29 PM MRI Cholangiopancreatography WO [...] who have questions please contact the health intensive care unit nurse that requested your imaging first. Electronically signed by: [facility]imo [facility] ([phone]), at 03/20/2023 7:[address] Head wo Contrast (Generic) (Exam End: 03/21/2023 12:34 PM) Impression Normal brain CT. Thank you for letting us participate in the care of this patient. If you are a health care provider and have any questions regarding this report, please contact the number below. For patients who have questions please contact the health intensive care unit nurse that requested your imaging first. Electronically signed by: Erlin [facility]na [facility] ([phone]), at 03/21/2023 12:49 PM MRI Orbit wwo Contrast (Exam End: 03/24/2023 11:16 AM) Impression 1. Normal brain. 2. Normal orbits. Thank you for letting us participate in the care of this patient. If you are a health care provider and have any questions regarding this report, please contact the number below. For patients who have questions please contact the health intensive care unit nurse that requested your imaging first. Brain wwo Contrast (Generic) (Exam End: 03/24/2023 11:16 AM) Impression 1. Normal brain. 2. Normal orbits. Thank you for letting us participate in the care of this patient. If you are a health care provider and have any questions regarding this report, please contact the number below. For patients who have questions please contact the health intensive care unit nurse that requested your imaging first. Assessment and Plan: Leandra Wilks is a 43 y.o. F with h/o morbid obesity, GERD, CHUN, IBS, depression, and recent lapRYGB (01/10/23) c/b continued dysphagia, N/V, and abdominal pain, who now requires neurology consultfor acute dizziness and binocular diplopia starting /. Leandra reports acute onset dizziness and diplopia starting /3. Prior exams were notable for limited movement [...] continue meclizine 25mg TID PRN Eva Kapoor [facility] Medical Student 03/25/23 Associated attestation - [...] Flexor digitorum profundus Digit II-V flexion / tower watchman 5 5 L2-3 Iliopsoas Hip flexion 5 [...] who have questions please contact the health intensive care unit nurse that requested your imaging first. Electronically signed by: Poppy Webster MD, [facility] ([phone]), at 03/19/2023 1:29 PM MRI Cholangiopancreatography WO [...] who have questions please contact the health intensive care unit nurse that requested your imaging first. Electronically signed by: Maximo Forrest [facility] [place] ([phone]), at 03/20/2023 7:[address] Head wo Contrast (Generic) (Exam End: 03/21/2023 12:34 PM) Impression Normal brain CT. Thank you for letting us participate in the care of this patient. If you are a health care provider and have any questions regarding this report, please contact the number below. For patients who have questions please contact the health intensive care unit nurse that requested your imaging first. Electronically signed by: [facility]na [facility] [place] ([phone]), at 03/21/2023 12:49 PM MRI Orbit wwo Contrast (Exam End: 03/24/2023 11:16 AM) Impression 1. Normal brain. 2. Normal orbits. Thank you for letting us participate in the care of this patient. If you are a health care provider and have any questions regarding this report, please contact the number below. For patients who have questions please contact the health intensive care unit nurse that requested your imaging first. Brain wwo Contrast (Generic) (Exam End: 03/24/2023 11:16 AM) Impression 1. Normal brain. 2. Normal orbits. Thank you for letting us participate in the care of this patient. If you are a health care provider and have any questions regarding this report, please contact the number below. For patients who have questions please contact the health intensive care unit nurse that requested your imaging first. Orthostatics [...] resolve. ?? Continue high-dose thiamine. Neurology Consult #[id number] Caron Conde MD Neurology Resident PGY3 03/25/2023 Associated attestation - Darinel Flores MD - 03/27/2023 10:00 AM EDT Neurology Attending Note Darinel Flores MD PhD (pager [phone]) I have seen and examined Leandra Wilks [...] Warm and well-perfused Labs: Recent Labs 03/25/23 0331 03/24/23 0351 03/23/23 0807 03/23/23 0339 WBC 8.4 [...] and PRNmedications, see JAN. Abdominal lap sites ELLEN. Patient voiding to [...] and PRNmedications, see JAN. Abdominal lap sites PARTS BACK COUNTER MAN. Patient voiding to BSC w/ SBA FWW. [...] does report on goingdizziness. Lap sites dermabounded PARTS BACK COUNTER MAN. LR @ 100. VSS on RA. Denies [...] criteria. 2299: Verbal report called to 3D nurse, Candelaria. Plans for transport per protocol with patient returning to previous room, 318B. * Mary Crawford, PT - 03/22/2023 3:46 PM EDT 03/22/23 1544 Evaluation & Treatment Document Type contact Total Minutes, Physical Therapy 0 Treatment Date 03/22/23 Comment, Session Not Performed Attempted to see pt 2x. Pt having a discussion with . Returned andpt was sleeping soundly. She has [...] 29.4) performed by Iram Borrero MD at [facility] OR ??? PRO UPPER GI ENDOSCOPY, DIAGNOSTIC N/A 01/10/2023 ?? EGD, UPPER GI ENDOSCOPY performed by Iram Borrero MD at [facility] OR ??? PRO UPPER GI ENDOSCOPY, DIAGNOSTIC N/A 03/05/2023 ?? EGD, UPPER GI ENDOSCOPY (WRVU 2.09) performed by Iram Borrero MD at [facility] OR ?? Active Non-Hospital Problems ?? [...] Total Minutes, Occupational Therapy: 23 (TAF X2 (0437-5357)) Pager: [phone] Pito Baltazar, OT 03/22/2023 Occupational Therapy Rehabilitation Department * Ana Condon RN - 03/22/2023 4:30 AM EDT Pt A&Ox4. VSS. Patient tolerated two orange mosotho ice and crackers prior to being NPO at midnight without experiencing nausea or vomiting. No antiemetics given overnight. Patient states main concern being uncontrolled dizziness. Explained to patient importance of call burden when ambulating or for bathroom due to dizziness. No other acute events to report. Patient utilizing call burden appropriately. * Mary Crawford, PT - 03/21/2023 2:26 PM EDT 03/21/23 1401 Evaluation & Treatment Document Type contact Total Minutes, Physical Therapy 0 Treatment Date 03/21/23 Comment, Session Not Performed Pt leaving the unit for diagnostic testing. PT to f/u 03/22. Thank you. * Pito Baltazar, OT - 03/21/2023 10:13 AM EDT Occupational [...] 29.4) performed by Iram Borrero MD at [facility] OR ??? PRO UPPER GI ENDOSCOPY, DIAGNOSTIC N/A 01/10/2023 ?? EGD, UPPER GI ENDOSCOPY performed by Iram Borrero MD at [facility] OR ??? PRO UPPER GI ENDOSCOPY, DIAGNOSTIC N/A 03/05/2023 ?? EGD, UPPER GI ENDOSCOPY (WRVU 2.09) performed by Iram Borrero MD at [facility] OR ?? Active Non-Hospital Problems ?? [...] 1-3 times/wk Total Minutes, Occupational Therapy: 42 ([facility] X3 ([phone])) Pager: [phone] Pito Baltazar, OT 03/21/2023 Occupational Therapy Rehabilitation [...] [95 %-100 %] 03/20 07 - 03/21 0700 In: 2514 [P.O.:360; I.V.:2154] Out: 850 [Urine:850] PE: General: Alert, no acute distress Head: Atraumatic, non cyanotic Cardiac: Regular rate & rhythm Pulmonary: Normal respiratory effort on RA Abdominal: Soft, non distended, minimally TTP without peritoneal signs Neuro: Grossly intact, follows commands Extremities: Warm and well-perfused Labs: Recent Labs 03/21/23 0346 03/20/23 02303/19/23 03403/18/23 1549 WBC 8.2 5.4 9.4 10.2* [...] No new orders at this time * Mary Crawford, PT - 03/20/2023 4:03 PM EDT [...] ADLs]: Standby assist Surveillance [continuous indirect monitoring]: Sai, purposeful hourly rounding Patient-specific fall prevention interventions [...] who have questions please contact the health intensive care unit nurse that requested your imaging first. Electronically signed by: Maximo Forrest DO, [facility] ([phone]), at 03/20/2023 7:59 AM Lab Results Component [...] if possible. Discussed with attending, Dr. Adair Wnin MD 03/20/23 9:01 AM MISpager [phone] Associated attestation - Iram Borrero MD - [...] when OOB/with ADL's Surveillance [continuous indirect monitoring]: Masimo, Purposeful Rounding, Nurse Knowledge Exchange * Dick [...] and ADLs]:??Ax2 OOB/BSC ?? Surveillance [continuous indirect monitoring]:??junioro; purposeful rounding; I-PASS * Danni Jones RN [...] signed and included in the patient's chart. Feliciayuriy Lee PGY-4, Gastroenterology * Dick Bower MD - 03/18/2023 4:04 PM EDT [facility] Department of Minimally Invasive Surgery Admission History [...] tachycardic and was advised to present to [facility] for further evaluation by the surgery team. [...] (WRVU 29.4) performed by [facility]ram [facility]ro [facility] OR ??? PRO UPPER GI ENDOSCOPY, DIAGNOSTIC N/A 01/10/2023 EGD, UPPER GI ENDOSCOPY performed by Iram Borrero MD at [facility] OR ??? PRO UPPER GI ENDOSCOPY, DIAGNOSTIC N/A 03/05/2023 EGD, UPPER GI ENDOSCOPY (WRVU 2.09) performed by Iram Borrero MD at [facility] OR HOME MEDICATIONS: No current facility-administered [...] unwell and was recommended to come to [facility]. Here she reports that she isn't eating [...] supposed to have EGD this morning at [facility] but was unable to tolerate the [...] Internal Medicine PGY-1 03/18/23 4:56 PM Pager #[phone] Swathi Day MD Resident 03/18/23 0160 Associated attestation - Pito Mclaughlin MD - [...] Iris Cash RN, BSN Case Management Work [phone] * Consult Note - Lizbeth Pan MD [...] but rarely worn since obtained from local senior planning analyst. NO known head trauma. H/o ear [...] 18.46) performed by Iram Borrero MD at [facility] OR ??? PRO LAP GASTRIC BYPASS/RENATO-EN-Y N/A 01/10/2023 @LAPAROSCOPIC GASTROPLASTY W/ RENATO-EN-Y CONSTRUCTION (WRVU 29.4) performed by [facility] ??? PRO LAP, DIAGNOSTIC ABDOMEN N/A 03/22/2023 LAPAROSCOPY, DIAGNOSTIC, ABDOMEN (WRVU 5.14) performed by Iram Borrero MD at [facility] OR ??? PRO UPPER GI ENDOSCOPY, DIAGNOSTIC N/A 01/10/2023 EGD, UPPER GI ENDOSCOPY performed by Iram Borrero MD at [facility] OR ??? PRO UPPER GI ENDOSCOPY, DIAGNOSTIC N/A 03/05/2023 EGD, UPPER GI ENDOSCOPY (WRVU 2.09) performed by Iram Borrero MD at [facility] OR ??? PRO UPPER GI ENDOSCOPY, DIAGNOSTIC N/A 03/20/2023 EGD, UPPER GI ENDOSCOPY (WRVU 2.09) performed by Gerber Salomon MD at [facility] END[facility]COPY Medications: Current Facility-Administered Medications Ordered in [...] Q30 Min Natalee Gottlieb MD No current [facility]-ordered outpatient medications on file. Prior To [...] ERIN 5 months ago, Dr. Ramirez in [place], [place] Near with +2.00 LL Tonometry ([facility], 2:36 PM) Right Left Pressure 13 12 Pupils Dark Light Shape APD Right 4 2 Round None Left 4 2 Round None Visual Stovall Left Right Full Full Extraocular Movement Right Left Full, Ortho, Nystagmus Full, Ortho, Nystagmus Neuro/Psych Mood/Affect: Apathetic Strabismus Exam Method: Alternate Cover, Cover-Uncover Correction: hi Observations: Ortho Distance Near Near +3DS N [...] Nystagmus/Oscillopsia: DDx includes medications, inner ear conditions, CISCO CONSULTANT disease in absence of any reported h/o [...] MD 03/28/2023 * Care Management - Iris Cash, RN - 03/27/2023 10:42 AM EDT Based on discussions with the multi-disciplinary healthcare team, the patient would benefit from SNF / Swing level of care at discharge. I have met with the patient to: ?? discuss discharge planning needs. ?? provide the [facility], Office of Care Management letter from the Litigation Legal Secretary pertaining to rehabreferrals. ?? provide a letter describing our affiliations within the [facility] and educate about their right to choose where referrals are sent. ?? provide the CMS Star Quality Rating handout. ?? review the different levels of rehab including SNF, swing, and acute. ?? provide a list of facilities within their preferred geographic area. ?? request that they provide at least three choices for referral. They have requested referrals to: [facility] ([facility]) ([facility]) [address] [place] [address] (Accepts pts only after exhausting all other local SNF options Only pts from their area with PCP at the Hospital Maximum rehab stay of 5 days) [address] [id number] [facility] [address] [place] [address] Note routed to a [employer] who will communicate referrals to facilities and provide any required information. Addendum: Call placed to [facility], no beds, [facility] no beds, Caryl hector. * Consult Note - Jessica Haywood [facility] - 03/27/2023 10:40 AM EDT KATE (Behavioral Intervention Team) [facility]ATE [facility] stopped to see this patient today. She [...] this admission for support. Jessica Haywood MA, [facility] Mental Gopi Services - BIT (Behavioral Intervention Team) Dept. of Psychiatry - Inpatient Psych. Services Pager: [phone] * Consult Note - Maximo Moreno MD [...] after last reduced dose). Relevant drugs in [facility] active today: include Fluoxetine 20 mg [...] improved her double vision. According to the supervisor core drilling's information, lamotrigine (uma at higher doses) can [...] was reduced. I am available on pager [phone] if I can help further. This is definitely a challenging case, but I think it is likely that the lamotrigine is contributing or causing to the nystagmus and double vision,and possibly contributing to the nausea and vomiting that patient has had as well. Maximo Moreno MD Pager [phone] * Care Management - Corey Wick RN [...] discuss discharge planning needs. ?? provide the [facility], Office of Care Management letter from the Litigation Legal Secretary pertaining to rehabreferrals. ?? provide a letter describing our affiliations within the [facility] and educate about their right to choose where referrals are sent. ?? provide the CMS Star Quality Rating handout. ?? review the different levels of rehab including SNF, swing, and acute. ?? provide a list of facilities within their preferred geographic area. ?? request that they provide at least three choices for referral. They have requested referrals to: [facility] Inpatient Rehabilitation Unit - [address] [address] [facility] Acute Rehabilitation and Sub-Acute (Swing) Rehab Levels of Care [address] [place] [address] Note routed to a [employer] who will communicate referrals to facilities and [...] 2 choices and made pt aware that [place] only had 2, [facility] and [facility]. Pt agreed to placing both. Anticipated Date of Discharge: 03/29/2023 Isak STEPHENS, RN CM Case Management [phone] * Consult Note - Jessica Haywood [facility] - 03/25/2023 10:40 AM EDT BIT Evaluation [...] to varying degrees since her original surgery. BIT [facility] encouraged patient to discuss stressors and emotional [...] Interventions delivered: Supportive therapy Plan: 1. BIT [facility] to continue to follow for support during admission 2. Recommend patient continue with her established outpatient mental health counseling Time spent with the patient (min):15 minutes Time spent on case coordination (min): 10 minutes Jessica Haywood MA, [facility] Mental [facility] - BIT (Behavioral Intervention Team) Dept. of Psychiatry - Inpatient Psych. Services Pager: [phone] * Consult Note - Fernando Giles MD [...] [facility] She states that she continues to have [...] and normal rhythm ?? Language: fluent in welsh, without paraphasic errors and without word finding [...] 0331 03/24/23 0551 03/24/23 0351 03/23/23 0339 NA 138 [...] who have questions please contact the health intensive care unit nurse that requested your imaging first. Electronically signed by: Poppy Webster MD, [facility] ([phone]), at 03/19/2023 1:29 PM MRI Cholangiopancreatography WO [...] visceral organs, gastrointestinal tract, and vascular structures. Pecan Grower Images: Noncontributory. Inferior thorax: Visualized structures within [...] who have questions please contact the health intensive care unit nurse that requested your imaging first. Electronically signed by: Maximo Forrest [facility] ([phone]), at 03/20/2023 7:[address] Head wo [...] who have questions please contact the health intensive care unit nurse that requested your imaging first. Electronically signed by: Erlin Castorena DO[facility] [place] ([phone]), at 03/21/2023 12:49 PM MRI Orbit wwo Contrast (Exam End: 03/24/2023 11:16 AM) Narrative EXAMINATION: MRI BRAIN WWO CONTRAST (GENERIC), MRI ORBIT WWO CONTRAST CLINICAL HISTORY: Dizziness, non-specific dizziness, diplopia, rule out stroke? (accession [id number]), right eye weakness, diplopia, concern for possible inferior rectus infiltration or inflamation vs. possible optic neuritis (accession [id number]). Right-sided weakness, diplopia, concerning for possible inferior [...] who have questions please contact the health intensive care unit nurse that requested your imaging first. Brain wwo Contrast (Generic) (Exam End: 03/24/2023 11:16 AM) Narrative EXAMINATION: MRI BRAIN WWO CONTRAST (GENERIC), MRI ORBIT WWO CONTRAST CLINICAL HISTORY: Dizziness, non-specific dizziness, diplopia, rule out stroke? (accession [id number]), right eye weakness, diplopia, concern for possible inferior rectus infiltration or inflamation vs. possible optic neuritis (accession [id number]). Right-sided weakness, diplopia, concerning for possible inferior [...] who have questions please contact the health intensive care unit nurse that requested your imaging first. Film [...] this assessment. Recommendations were communicated to primary crab steamer Dick Bower. Fernando Giles MD 03/25/2023 Coding [...] Minimal/Low [] Low [] Minimal/Low [] Low 46053 [] Moderate [] Moderate [] Moderate [] Moderate 07599 [] High [] High [] High [] High 91526 Final Coding Determination: Straightforward/low Associated attestation - Carlito Parrish MD - 04/05/2023 2:33 PM EDT Psychiatry Attending Note I discussed this patient's situation with the resident but did not see the patient. I contributed to the formulation and treatment planning as documented in the resident's note. Carlito Parrish MD Psychiatry Consultation Pager: [phone] * Consult Note - Varsha Topete APRN [...] I/O 24 Hours: 03/23 701 - 03/24 0700 In: 2036 [P.O.:200; I.V.:1719] Out: 400 [Urine:400] I/O this shift: In: 1531 [I.V.:1531] Out: - Recent Labs 03/24/23 0351 03/23/23 0807 03/23/23 0339 03/22/23 0417 03/21/23 0346 WBC 6.8 9.0 7.5 8.0 8.2 HGB 10.5* 10.2* 10.5* 12.6 13.3 HCT 31.5* 30.2* 31.8* 37.3 37.6 PLATELET 268 268 263 384* 322 NEUTROABS 3.49 7.13* 6.54* 4.00 5.44 Recent Labs 05/07/55003/24/2335003/23/2333803/22/2341603/21/2334503/20/23 023 NA -- 141 139 140 135 [...] 0.94 PHOS 3.1 3.4 3.1 Recent Labs 03/24/2355003/24/2335003/23/2333803/22/2341603/21/2334503/20/2323103/18/23 1549 AST 54* Not Perf 39* 30 [...] 168 hours. No results for input(s): PHART, EZD4EAP, PO2ART, DJE2MTX in the last 168 hours. No results [...] Folate supplementation - daily multivit General Neurology #[id number] Varsha Topete APRN Personal Pager #[phone] Department of Neurology [place] [phone] Associated attestation - Darinel Flores MD - 03/24/2023 2:26 PM EDT Neurology Attending Note Darinel Flores MD PhD (pager [phone]) I have seen and examined Leandra Wilks [...] Flexor digitorum profundus Digit II-V flexion / tower watchman 5 5 L2-3 Iliopsoas Hip flexion 5 [...] who have questions please contact the health intensive care unit nurse that requested your imaging first. Electronically signed by: Poppy Webster MD, [facility] ([phone]), at 03/19/2023 1:29 PM MRI Cholangiopancreatography WO [...] who have questions please contact the health intensive care unit nurse that requested your imaging first. Electronically signed by: Maximo Forrest [facility] ([phone]), at 03/20/2023 7:[address] Head wo Contrast (Generic) (Exam End: 03/21/2023 12:34 PM) Impression Normal brain CT. Thank you for letting us participate in the care of this patient. If you are a health care provider and have any questions regarding this report, please contact the number below. For patients who have questions please contact the health intensive care unit nurse that requested your imaging first. Electronically signed by: Erlin Castorena [facility] [place] ([phone]), at 03/21/2023 12:49 PM Orthostatics blood pressure [...] brainstem - MRI orbits wwo Neurology Consult #[id number] Isai Esqueda MD Neurology Resident, PGY-4 03/23/2023 Associated attestation - Darinel Flores MD - 03/24/2023 2:28 PM EDT Neurology Attending Note Darinel Flores MD PhD (pager [phone]) Please see my earlier attestation. * Op Note - Iram Borrero MD - 03/22/2023 7:54 PM EDT [facility] Operative Note Patient Name: Leandra Wilks : [id number] MR#: [id number] Case Date: 03/22/2023 Surgeon: Surgeon(s) and Role: [...] (WRVU 29.4) performed by [facility] ??? PRO UPPER GI ENDOSCOPY, DIAGNOSTIC N/A 01/10/2023 EGD, UPPER GI ENDOSCOPY performed by Iram Borrero MD at [facility] OR ??? PRO UPPER GI ENDOSCOPY, DIAGNOSTIC N/A 03/05/2023 EGD, UPPER GI ENDOSCOPY (WRVU 2.09) performed by Iram Borrero MD at [facility] OR ??? PRO UPPER GI ENDOSCOPY, DIAGNOSTIC N/A 03/20/2023 EGD, UPPER GI ENDOSCOPY (WRVU 2.09) performed by Gerber Salomon MD at [facility] Allergies: No Known Allergies Family history: [...] Flexor digitorum profundus Digit II-V flexion / tower watchman 5 5 L2-3 Iliopsoas Hip flexion 5 [...] who have questions please contact the health intensive care unit nurse that requested your imaging first. Electronically signed by: Poppy Webster MD, [facility] ([phone]), at 03/19/2023 1:29 PM MRI Cholangiopancreatography WO [...] who have questions please contact the health intensive care unit nurse that requested your imaging first. Electronically signed by: Maximo Forrest [facility] ([phone]), at 03/20/2023 7:[address] Head wo Contrast (Generic) (Exam End: 03/21/2023 12:34 PM) Impression Normal brain CT. Thank you for letting us participate in the care of this patient. If you are a health care provider and have any questions regarding this report, please contact the number below. For patients who have questions please contact the health intensive care unit nurse that requested your imaging first. Electronically signed by: Erlin Castorena [facility] ([phone]), at 03/21/2023 12:49 PM Orthostatics blood pressure [...] Attending Note Darinel Flores MD PhD (pager [phone]) I have seen and examined Leandra Wilks [...] TID. Yuriy Bustillo MD Psychiatry Consultation Pager: [phone] Psychiatric Initial Inpatient Consultation Note Time of Consultation: 3:00 PM Information Sources: Patient. Electronic Medical Record. Reason for consultation: I have been asked by attending physician Dr. rIam Borrero to see Ibis Wilks for recommendations [...] Prozac and Lamictal Past hospitalizations: None at [facility] Suicide attempts: 1 remote attempt Past psychiatric [...] (WRVU 29.4) [facility] ??? PRO UPPER GI ENDOSCOPY, DIAGNOSTIC N/A 01/10/2023 EGD, UPPER GI ENDOSCOPY performed by Iram Borrero MD at [facility] ??? PRO UPPER GI ENDOSCOPY, DIAGNOSTIC N/A 03/05/2023 EGD, UPPER GI ENDOSCOPY (WRVU 2.09) performed by Iram Borrero MD at [facility] ??? PRO UPPER GI ENDOSCOPY, DIAGNOSTIC N/A 03/20/2023 EGD, [facility]COPY [facility] performed by Gerber Salomon MD at [facility] Inpatient Medications: Current Facility-Administered Medications Medication [...] and increased latency ?? Language: fluent in welsh, without paraphasic errors and without word finding [...] who have questions please contact the health intensive care unit nurse that requested your imaging first. Electronically signed by: Poppy Webster MD, [facility] ([phone]), at 03/19/2023 1:29 PM MRI Cholangiopancreatography WO [...] visceral organs, gastrointestinal tract, and vascular structures. Pecan Grower Images: Noncontributory. Inferior thorax: Visualized structures within [...] who have questions please contact the health intensive care unit nurse that requested your imaging first. Electronically signed by: Maximo Forrest [facility] ([phone]), at 03/20/2023 7:[address] Head wo [...] who have questions please contact the health intensive care unit nurse that requested your imaging first. Electronically signed by: Erlin Castorena [facility] ([phone]), at 03/21/2023 12:49 PM Film Library- Storage [...] this assessment. Recommendations were communicated to primary crab steamer. Fernando Giles MD 03/21/2023 Coding Determination 1. [...] [] Minimal - [] Minimal [] Straightforward 01627 [] Low [] Low [] Low [] Low 47153 [] Moderate [x] Moderate [] Moderate [] Moderate 30540 [x] High [] High [x] High [x] High 99308 Final Coding Determination: Straightforward * Consult Note - Galileojacques Jessica, [facility] - 03/21/2023 11:30 AM EDT BIT Evaluation [...] surgery. Because patient will be evaluated by [facility] psychiatrist who can obtain more history, etc., [...] support. Interventions delivered: Supportive therapy Plan: [facility]ATE [facility] to follow for supportive therapy Outstanding Discharge Needs: Other: TBD - patient already has an established outpatient therapist Time spent with the patient (min):30 minutes Time spent on case coordination (min): 15 minutes Jessica Haywood MA, [facility] Mental [facility] Services - BIT (Behavioral Intervention Team) Dept. of Psychiatry - Inpatient Psych. Services Pager: [phone] * Initial Assessments - Pito Baltazar, OT [...] (WRVU 29.4) [facility] ??? PRO UPPER GI ENDOSCOPY, DIAGNOSTIC N/A 01/10/2023 EGD, UPPER GI ENDOSCOPY performed by Iram Borrero MD at [facility] OR ??? PRO UPPER GI ENDOSCOPY, DIAGNOSTIC N/A 03/05/2023 EGD, UPPER GI ENDOSCOPY (WRVU 2.09) performed by Iram Borrero MD at [facility] Active Non-Hospital Problems Diagnosis ? [...] planning. Total Minutes, Occupational Therapy: 34 (Eval ([id number])) 2017 OT Evaluation Code Rationale: ?? Diagnosis [...] and measurable assessment of functional outcome. Pager: [phone] Pito Baltazar OT 03/20/2023 Occupational Therapy Rehabilitation Department * Op Note - Gerber Salomon MD - 03/20/2023 11:55 AM EDT [facility] Operative Note Patient Name: Leandra Wilks : [id number] MR#: [id number] Case Date: 03/20/2023 Surgeon: Surgeon(s) and Role: [...] (WRVU 29.4) [facility] ??? PRO UPPER GI ENDOSCOPY, DIAGNOSTIC N/A 01/10/2023 EGD, UPPER GI ENDOSCOPY performed by Iram Borrero MD at [facility] ??? PRO UPPER GI ENDOSCOPY, DIAGNOSTIC N/A 03/05/2023 EGD, UPPER GI ENDOSCOPY (WRVU 2.09) performed by Iram Borrero MD at [facility] SOCIAL HX: Social History Socioeconomic [...] who have questions please contact the health intensive care unit nurse that requested your imaging first. Electronically signed by: Poppy Webster MD, [facility] ([phone]), at 03/19/2023 1:29 PM Film Library- Storage [...] EGD. Raúl Zapien MD Section of Gastroenterology [facility] * Plan of Care - Cecily Sloan [...] N/A ; Prescription Coverage: Yes Preferred Pharmacy: [id number] - [place], [place] - [address] [facility] [address] [address] [place], [place] - [address] [facility] [address] Advance Care Planning: Attempt Cardiopulmonary Resuscitation - Inpatient <no information> -Advanced Directive: (not on file) Current Functional Ability: Assistive Person Functional Status Prior to Admission: Independent Home Environment: Others in the home: significant other. Current Living Arrangements: home/apartment/condo. Accessibility Concerns:second floor apartment, FOS to manage. Current DME: none [address] [facility] [id number] Social & Family Supports: All names listed below confirmed with patient as current and correct Extended Emergency Contact Information Primary Emergency Contact: JAXON BLAKE Address: [address] [place] [address] [facility] Mobile Relation: Life Partner Secondary Emergency Contact: LoyOzzy Address: [address] Relation: Child Current Care Provided by: self [...] private car when medically ready. Registered Nurse Aeronautical Test Engineer / Junior Technical Writer will continue to follow patient???s progress and remain available if situation changes for coordination of care, psychosocial support and/or discharge planning. Office of Care Management Janis HEDRICK assessment counselor Team Aeronautical Test EngineerCity Carrier of Care Management [email or web address] Pager #[phone] * Consult Note - Emmanuel Rodriguez [facility] - 03/19/2023 1:00 AM EDT TelePharmacy Home [...] reconciled by the provider. [facility] Reconciliation Pharmacist at for any questions. [...] psychologist to work on eating behaviors Health Inside Sales Supervisor is sending hand-outs with exercises for mindful eating, The Pause/STOP and Urge surfing. Patient will review and try implementing some behaviors before we meet again. movement Lifestyle On track(2021 10:29 AM EST) Jill Colmenares, BEAUTY SALES ADVISOR Note: Exercise goal is 150 min a [...] OF ADHESIONS,ABD. Routine 03/22/20 8:17 PM EDT LAPAROSCOPY, DIAGNOSTIC Routine 05/05/20 23 6:41 PM EDT POCT GLUCOSE Routine 03/22/2023 2:32 PM EDT HEMOGRAM Routine 03/22/2023 4:17 AM EDT DIFFERENTIAL, AUTOMATED Routine 03/22/20 23 4:17 AM EDT HC CBC,PLT & AUTO [...] PM EDT Upper GI Endoscopy, Diagnost ic (12258) 03/20/2023 11:51 AM EDT dysphagia UPPER GI [...] 3:50 AM EDT) Neutrophils % 55.1 % [facility] Neutr Abs (ANC) 3.91 1.70 - 6.10 x10(3)/[facility] Lymphocytes % 33.0 % [facility] Lymphocytes Abs 2.3 0.9 - 3.2 x10(3)/[facility] LABORATORY Monocytes % 5.6 % [facility] Monocyte Abs 0.4 0.3 - 0.9 x10(3)/[facility] LAB[facility] Eosinophils % 4.9 % [facility] Eosinophils Abs 0.4 0.0 - 0.4 x10(3)/[facility] LABOR[facility]ORY Basophils % 0.3 % [facility] Basophils Abs 0.0 0.0 - 0.1 x10(3)/[facility] LABORATORY Immature Gran % 1.10 % [facility] Comment: Immature granulocytes(IG's)percentage and absolute count will include metamyelocytes, myelocytes, and promyelocytes. Blood smears from CBCs yielding IG's will be scanned manually for concordance. If this scan disagrees with the automated IG or if promyelocytes are noted, a manual differential will be performed. Reshma Gran Abs 0.08(H) 0.00 - 0.04 x10(3)/[facility] LAB[facility]ORY Blood 03/27/2023 3:50 AM EDT 03/27/2023 4:21 AM EDT Narrative Resulting Agency Comment Spec In Lab Natalee Winn MD HEMATOLOGY ORDERABLE S [facility] [place] [address] * (ABNORMAL) Hemogram (03/27/2023 3:50 AM EDT) WBC 7.1 4.0 - 9.5 x10(3)/[facility] LABORATORY RBC 3.75(L) 4.00 - 5.21 x10(6)/[facility] LABORATORY Hemoglobin 10.9(L) 11.7 - 15.5 g/dL [facility] Hematocrit 31.5(L) 35.7 - 45.8 % [facility] MCV 84.0 82.6 - 94.4 fL [facility] MCH 29.1 27.1 - 32.0 pg [facility] MCHC 34.6 31.7 - 35.0 g/dL [facility] Platelets 297 145 - 357 x10(3)/[facility] LABORATORY RDWSD 47.8(H) 37.0 - 46.0 [facility]ORY RDWCV 15.9(H) 11.5 - 14.1 % [facility] MPV 9.3 7.6 - 12.9 [facility]ORY nRBC % Auto 0.0 % [facility] nRBC Abs Auto 0.000 0.000 - 0.000 x10(3)/[facility] LABORATORY Blood 03/27/2023 3:50 AM EDT 03/27/2023 4:21 AM EDT Narrative Resulting Agency Comment Spec In Lab Natalee Winn MD HEMATOLOGY ORDERABLE S [facility] [place] [address] * (ABNORMAL) Comprehensive metabolic panel (non-fasting) (03/27/2023 3:50 AM EDT) Glucose Lvl 86 65 - 199 mg/dL [facility] Comment:Diabetes: >=200 mg/d L plus symptoms BUN 10 8 - 18 mg/dL [facility] Comment:result rechecked-GH Creatinine 0.74 0.70 - 1.20 mg/dL [facility] Sodium 141 135 - 145 mmol/L [facility] Potassium 3.5 3.5 - 5.0 mmol/L [facility] Comment: Please note: ??Patients with WBC >100,000 may have falsely elevated Potassium levels. ??For accurate Potassium quantification in these patients send serum separator tube (gold top) for subsequent determinations. ??Contact the Clinical Chemistry Laboratory if there are any questions. Chloride 105 98 - 107 mmol/L [facility] CO2 25 22 - 31 mmol/L [facility] Anion Gap 11 5 - 15 mmol/L [facility] Calcium 8.7 8.5 - 10.5 mg/dL [facility] Total Protein 5.3(L) 6.1 - 8.0 g/dL [facility] Albumin 3.2 3.2 - 5.2 g/dL [facility] AST 40(H) 0 - 30 unit/L [facility] ALT 42(H) 0 - 30 unit/L [facility] Alk Phos 111(H) 35 - 105 unit/L [facility] Total Bilirubin 0.7 0.2 - 1.3 mg/dL [facility] Estimated GFR 102 >=60 mL/min/1. 73 m?? [facility] Comment: This patient's estimated [...] In Lab Natalee Winn MD CHEMISTRY ORDERABLES [facility] [place] [address] * Phosphorus (03/27/2023 3:50 AM EDT) Phosphorus 4.3 2.5 - 4.5 mg/dL [facility] Blood 03/27/2023 3:50 AM EDT 03/27/2023 4:19 AM EDT Narrative Resulting Agency Comment Spec In Lab Natalee Winn MD CHEMISTRY ORDERABLES Performing Organization Address [facility] Co de Phone Number [facility] [place] [address] * Magnesium (03/27/2023 3:50 AM EDT) [facility] Magnesium 0.85 0.69 - 1.07 mmol/L [facility] Blood 03/27/2023 3:50 AM EDT 03/27/2023 4:19 AM EDT Narrative Resulting Agency Comment Spec In Lab Natalee Winn MD CHEMISTRY ORDERABLES Performing Organization Address [facility] Co de Phone Number [facility] [place] [address] * POCT Glucose (03/26/2023 7:43 PM EDT) [facility] POC Glucose 89 65 - 199 mg/dL [facility] Comment: Supplemental ranges: <140 mg/dL before meals <180 mg/dL all other times of the day Blood 03/26/2023 7:43 PM EDT 03/26/2023 7:43 PM EDT Iram Borrero MD POINT OF CARE TEST O RDERABLES Performing Organization Address [facility] Co de Phone Number [facility] [place] [address] * Lamotrigine Lvl (03/26/2023 4:00 AM EDT) [facility] Lamotrigine Lvl 3.6 3.0 - 15.0 mcg/mL [facility] Comment: ADDITIONAL INFORMATION This test was developed and its performance characteristics determined by [facility] in a manner consistent with CLIA requirements. This test has not been cleared or approved by the U.S. Food and Drug Administration. Test Performed by: [facility] [address] [place] [address] [employer] Worker: Erlin Orlando M.D. Ph.D.; CLIA# [id number] Blood Venous Draw / Unknown 03/26/2023 4:00 AM EDT 03/26/2023 3:52 PM EDT Narrative Resulting Agency Comment Spec In Lab Natalee Winn MD CHEMISTRY ORDERABLES Performing Organization Address [facility]/ZIP Co de Phone Number [facility] [place] [address] * (ABNORMAL) Ferritin (03/26/2023 4:00 AM EDT) [facility] Ferritin 778(H) 15 - 150 ng/mL [facility] Comment: Pediatric reference ranges not verified at [facility], interpret with caution. Reference ranges for females greater than 50 years of age approach values for men, i.e., 30-400 ng/mL. Blood Venous Draw / Unknown 03/26/2023 4:00 AM EDT 03/26/2023 4:37 AM EDT Narrative Resulting Agency Comment Spec In Lab Joan GAINES CHEMISTRY ORDERABLE S Performing Organization Address City/[facility]/ZIP Co de Phone Number [facility] [place] [address] * (ABNORMAL) Iron and TIBC (03/26/2023 4:00 AM EDT) [facility] Iron 80 30 - 150 mcg/dL [facility] TIBC 226(L) 250 - 450 mcg/dL [facility] Iron Saturation 35 20 - 50 % [facility] Blood Venous Draw / Unknown 03/26/2023 4:00 AM EDT 03/26/2023 4:36 AM EDT Narrative Resulting Agency Comment Spec In Lab Joan GAINES CHEMISTRY ORDERABLE S [facility] [place] [address] * Vitamin D, 25-Hydroxy (03/26/2023 4:00 AM EDT) 25-OH Vit D Total 34 21 - 100 ng/mL [facility] 25-OH Vit D Interp Sufficient [facility] Blood Venous Draw / Unknown 03/26/2023 4:00 AM EDT 03/26/2023 4:37 AM EDT Narrative Resulting Agency Comment Spec In Lab Joan GAINES CHEMISTRY ORDERABLE S Performing Organization Address City/[facility]/ZIP Co de Phone Number [facility] [place] [address] * Green Tube HOLD (03/26/2023 4:00 AM EDT) Green Hold Sample in lab. [facility] Blood Venous Draw / Unknown 03/26/2023 4:00 AM EDT 03/26/2023 4:35 AM EDT Natalee Winn MD CHEMISTRY ORDERABLES [facility] [place] [address] * Gold Tube HOLD (03/26/2023 4:00 AM EDT) Gold Hold Sample in lab. [facility] Blood Venous Draw / Unknown 03/26/2023 4:00 AM EDT 03/26/2023 4:36 AM EDT Natalee Winn MD CHEMISTRY ORDERABLES [facility] [place] [address] * (ABNORMAL) Differential, Automated (03/26/2023 4:00 AM EDT) Neutrophils % 54.4 % [facility] Neutr Abs (ANC) 3.65 1.70 - 6.10 x10(3)/ L [facility] Lymphocytes % 31.2 % [facility] Lymphocytes Abs 2.1 0.9 - 3.2 x10(3)/[facility] LAB[facility] Monocytes % 6.0 % [facility] Monocyte Abs 0.4 0.3 - 0.9 x10(3)/[facility] Eosinophils % 6.0 % [facility] Eosinophils Abs 0.4 0.0 - 0.4 x10(3)/[facility] LAB[facility]ORY Basophils % 0.6 % [facility] Basophils Abs 0.0 0.0 - 0.1 x10(3)/[facility] LABOR[facility]ORY Immature Gran % 1.80 % [facility] Comment: Immature granulocytes(IG's)percentage and absolute count will include metamyelocytes, myelocytes, and promyelocytes. Blood smears from CBCs yielding IG's will be scanned manually for concordance. If this scan disagrees with the automated IG or if promyelocytes are noted, a manual differential will be performed. Reshma Gran Abs 0.12(H) 0.00 - 0.04 x10(3)/ L [facility] Blood 03/26/2023 4:00 AM EDT 03/26/2023 4:35 AM EDT Narrative Resulting Agency Comment Spec In Lab Natalee Winn MD HEMATOLOGY ORDERABLE S Performing Organization Address City/[facility]/ZIP Co de Phone Number [facility] [place] [address] * (ABNORMAL) Hemogram (03/26/2023 4:00 AM EDT) WBC 6.7 4.0 - 9.5 x10(3)/[facility] LABORATORY RBC 4.00 4.00 - 5.21 x10(6)/[facility] LABORATORY Hemoglobin 11.4(L) 11.7 - 15.5 g/dL [facility] Hematocrit 34.0(L) 35.7 - 45.8 % [facility] MCV 85.0 82.6 - 94.4 fL [facility] MCH 28.5 27.1 - 32.0 pg [facility] MCHC 33.5 31.7 - 35.0 g/dL [facility] Platelets 296 145 - 357 x10(3)/[facility] LABORATORY RDWSD 46.9(H) 37.0 - 46.0 fL [facility] RDWCV 15.5(H) 11.5 - 14.1 % [facility] MPV 9.1 7.6 - 12.9 [facility]ATORY nRBC % Auto 0.0 % [facility] nRBC Abs Auto 0.000 0.000 - 0.000 x10(3)/[facility] LABORATORY Blood 03/26/2023 4:00 AM EDT 03/26/2023 4:35 AM EDT Narrative Resulting Agency Comment Spec In Lab Natalee Winn MD HEMATOLOGY ORDERABLE S [facility] [place] [address] * (ABNORMAL) Comprehensive metabolic panel (non-fasting) (03/26/2023 4:00 AM EDT) Pathologist [facility] Glucose Lvl 82 65 - 199 mg/dL [facility] Comment:Diabetes: >=200 mg/d L plus symptoms BUN 4(L) 8 - 18 mg/dL [facility] Creatinine 0.70 0.70 - 1.20 mg/dL [facility] Sodium 140 135 - 145 mmol/L [facility] Potassium 3.8 3.5 - 5.0 mmol/L [facility] Comment: Please note: ??Patients with WBC >100,000 may have falsely elevated Potassium levels. ??For accurate Potassium quantification in these patients send serum separator tube (gold top) for subsequent determinations. ??Contact the Clinical Chemistry Laboratory if there are any questions. Chloride 104 98 - 107 mmol/L [facility] CO2 25 22 - 31 mmol/L [facility] Anion Gap 11 5 - 15 mmol/L [facility] Calcium 8.7 8.5 - 10.5 mg/dL [facility] Total Protein 5.7(L) 6.1 - 8.0 g/dL [facility] Albumin 3.3 3.2 - 5.2 g/dL [facility] AST 41(H) 0 - 30 unit/L [facility] ALT 42(H) 0 - 30 unit/L [facility] Alk Phos 119(H) 35 - 105 unit/L [facility] Total Bilirubin 0.6 0.2 - 1.3 mg/dL [facility] Estimated GFR 109 >=60 mL/min/1. 73 m?? [facility] Comment: This patient's estimated [...] In Lab Natalee Winn MD CHEMISTRY ORDERABLES [facility] [place] [address] * Phosphorus (03/26/2023 4:00 AM EDT) Phosphorus 4.4 2.5 - 4.5 mg/dL [facility] Blood 03/26/2023 4:00 AM EDT 03/26/2023 4:35 AM EDT Narrative Resulting Agency Comment Spec In Lab Natalee Winn MD CHEMISTRY ORDERABLES Performing Organization Address [facility]/ZIP Co de Phone Number [facility] [place] [address] * Magnesium (03/26/2023 4:00 AM EDT) Magnesium 0.94 0.69 - 1.07 mmol/L [facility] Blood 03/26/2023 4:00 AM EDT 03/26/2023 4:35 AM EDT Narrative Resulting Agency Comment Spec In Lab Natalee Winn MD CHEMISTRY ORDERABLES Performing Organization Address City/[facility]/ZIP Co de Phone Number [facility] [place] [address] * TSH [place] (03/26/2023 4:00 AM EDT) TSH 0.47 0.27 - 4.20 mcIU/mL [facility] Comment: Reference Interval (mcIU/mL): Females: ??First Trimester: 0.23-3.88 ??Second Trimester: 0.22-3.90 ??Third Trimester: 0.44-4.66 Blood 03/26/2023 4:00 AM EDT 03/26/2023 4:35 AM EDT Narrative Resulting Agency Comment Spec In Lab Iram Borrero MD CHEMISTRY ORDERABLES [facility] [place] [address] * CK (03/26/2023 4:00 AM EDT) CK, Total 51 0 - 160 unit/L [facility] Blood 03/26/2023 4:00 AM EDT 03/26/2023 4:35 AM EDT Narrative Resulting Agency Comment Spec In Lab Iram Borrero MD CHEMISTRY ORDERABLES Performing Organization Address City/[facility]/ZIP Co de Phone Number [facility] [place] [address] * CRP, acute inflammation (03/26/2023 4:00 AM EDT) Pathologist [facility] CRP 4.5 <=4.9 mg/L [facility] Blood 03/26/2023 4:00 AM EDT 03/26/2023 4:35 AM EDT Narrative Resulting Agency Comment Spec In Lab Iram Borrero MD CHEMISTRY ORDERABLES Performing Organization Address [facility] Co de Phone Number [facility] [place] [address] * Sedimentation rate (03/26/2023 4:00 AM EDT) [facility] Sed Rate 16 2 - 37 mm/hr [facility] Comment: Effective October 28, 2019 new capillary photometric technology has resulted in a change in reference ranges. It is recommended that each ESR result be reviewed with its own age appropriate reference range. Blood 03/26/2023 4:00 AM EDT 03/26/2023 4:35 AM EDT Narrative Resulting Agency Comment Spec In Lab Iram Borrero MD HEMATOLOGY ORDERABLE S Performing Organization Address City/[facility]/ZIP Co de Phone Number [facility] [place] [address] * (ABNORMAL) Differential, Automated (03/25/2023 3:31 AM EDT) Neutrophils % 55.0 % [facility] Neutr Abs (ANC) 4.60 1.70 - 6.10 x10(3)/[facility] LABOR[facility] Lymphocytes % 29.4 % [facility] Lymphocytes Abs 2.5 0.9 - 3.2 x10(3)/[facility] LABOR[facility]ORY Monocytes % 6.2 % [facility] Monocyte Abs 0.5 0.3 - 0.9 x10(3)/[facility] Eosinophils % 5.7 % [facility] Eosinophils Abs 0.5(H) 0.0 - 0.4 x10(3)/[facility] LAB[facility]ORY Basophils % 0.7 % [facility] Basophils Abs 0.1 0.0 - 0.1 x10(3)/[facility] Immature Gran % 3.00 % [facility] Comment: Immature granulocytes(IG's)percentage and absolute count will include metamyelocytes, myelocytes, and promyelocytes. Blood smears from CBCs yielding IG's will be scanned manually for concordance. If this scan disagrees with the automated IG or if promyelocytes are noted, a manual differential will be performed. Reshma Gran Abs 0.25(H) 0.00 - 0.04 x10(3)/[facility] Blood 03/25/2023 3:31 AM EDT 03/25/2023 3:44 AM EDT Narrative Resulting Agency Comment Spec In Lab Natalee Winn MD HEMATOLOGY ORDERABLE S [facility] [place] [address] * (ABNORMAL) Hemogram (03/25/2023 3:31 AM EDT) WBC 8.4 4.0 - 9.5 x10(3)/[facility] LABORATORY RBC 3.77(L) 4.00 - 5.21 x10(6)/[facility] Hemoglobin 10.8(L) 11.7 - 15.5 g/dL [facility] Hematocrit 32.8(L) 35.7 - 45.8 % [facility] MCV 87.0 82.6 - 94.4 fL [facility] MCH 28.6 27.1 - 32.0 pg [facility] MCHC 32.9 31.7 - 35.0 g/dL [facility] Platelets 291 145 - 357 x10(3)/[facility] LABORATORY RDWSD 48.2(H) 37.0 - 46.0 [facility] RDWCV 15.0(H) 11.5 - 14.1 % [facility] MPV 9.8 7.6 - 12.9 [facility]ORY nRBC % Auto 0.0 % [facility] nRBC Abs Auto 0.000 0.000 - 0.000 x10(3)/[facility] LABORATORY Blood 03/25/2023 3:31 AM EDT 03/25/2023 3:44 AM EDT Narrative Resulting Agency Comment Spec In Lab Natalee Winn MD HEMATOLOGY ORDERABLE S [facility] [place] [address] * (ABNORMAL) Comprehensive metabolic panel (non-fasting) (03/25/2023 3:31 AM EDT) Glucose Lvl 94 65 - 199 mg/dL [facility] Comment:Diabetes: >=200 mg/d L plus symptoms BUN 3(L) 8 - 18 mg/dL [facility] Creatinine 0.61(L) 0.70 - 1.20 mg/dL [facility] Sodium 138 135 - 145 mmol/L [facility] Potassium 3.4(L) 3.5 - 5.0 mmol/L [facility] Comment: Please note: ??Patients with WBC >100,000 may have falsely elevated Potassium levels. ??For accurate Potassium quantification in these patients send serum separator tube (gold top) for subsequent determinations. ??Contact the Clinical Chemistry Laboratory if there are any questions. Chloride 100 98 - 107 mmol/L [facility] CO2 22 22 - 31 mmol/L [facility] Anion Gap 16(H) 5 - 15 mmol/L [facility] Calcium 8.8 8.5 - 10.5 mg/dL [facility] Total Protein 5.6(L) 6.1 - 8.0 g/dL [facility] Albumin 3.2 3.2 - 5.2 g/dL [facility] AST 43(H) 0 - 30 unit/L [facility] ALT 42(H) 0 - 30 unit/L [facility] Alk Phos 115(H) 35 - 105 unit/L [facility] Total Bilirubin 0.6 0.2 - 1.3 mg/dL [facility] Estimated GFR 112 >=60 mL/min/1. 73 m?? [facility] Comment: This patient's estimated [...] Winn MD CHEMISTRY ORDERABLES Performing Organization Address [facility] Co de Phone Number [facility] [place] [address] * Phosphorus (03/25/2023 3:31 AM EDT) Phosphorus 3.4 2.5 - 4.5 mg/dL [facility] Blood 03/25/2023 3:31 AM EDT 03/25/2023 3:43 AM EDT Narrative Resulting Agency Comment Spec In Lab Natalee Winn MD CHEMISTRY ORDERABLES Performing Organization Address [facility] de Phone Number [facility] [place] [address] * (ABNORMAL) Magnesium (03/25/2023 3:31 AM EDT) Magnesium 0.67(L) 0.69 - 1.07 mmol/L [facility] Blood 03/25/2023 3:31 AM EDT 03/25/2023 3:43 AM EDT Narrative Resulting Agency Comment Spec In Lab Natalee Winn MD CHEMISTRY ORDERABLES Performing Organization Address [facility] Co de Phone Number [facility] [place] [address] * MRI Brain wwo Contrast (Generic) (03/24/2023 [...] who have questions please contact the health intensive care unit nurse that requested your imaging first. ? Narrative 03/24/2023 12:20 PM EDT EXAMINATION: MRI BRAIN WWO CONTRAST (GENERIC), MRI ORBIT WWO CONTRAST CLINICAL HISTORY: Dizziness, non-specific dizziness, diplopia, rule out stroke? (accession [id number]), right eye weakness, diplopia, concern for possible inferior rectus infiltration or inflamation vs. possible optic neuritis (accession [id number]). Right-sided weakness, diplopia, concerning for possible inferior [...] non-specific dizziness, diplopia, rule out stroke? (accession [id number]), right eyeweakness, diplopia, concern for possible inferior rectus infiltration or inflamationvs. possible optic neuritis (accession [id number]). Right-sided weakness,diplopia, concerning for possible inferior rectus [...] patients who have questions please contactthe health intensive care unit nurse that requested your imaging first. Natalee [...] who have questions please contact the health intensive care unit nurse that requested your imaging first. ? Narrative 03/24/2023 12:20 PM EDT EXAMINATION: MRI BRAIN WWO CONTRAST (GENERIC), MRI ORBIT WWO CONTRAST CLINICAL HISTORY: Dizziness, non-specific dizziness, diplopia, rule out stroke? (accession [id number]), right eye weakness, diplopia, concern for possible inferior rectus infiltration or inflamation vs. possible optic neuritis (accession [id number]). Right-sided weakness, diplopia, concerning for possible inferior [...] non-specific dizziness, diplopia, rule out stroke? (accession [id number]), right eyeweakness, diplopia, concern for possible inferior rectus infiltration or inflamationvs. possible optic neuritis (accession [id number]). Right-sided weakness,diplopia, concerning for possible inferior rectus [...] patients who have questions please contactthe health intensive care unit nurse that requested your imaging first. Natalee Winn MD IM MRI ORDERABLES * (ABNORMAL) Aspartate Aminotransferase (03/24/2023 5:51 AM EDT) AST 54(H) 0 - 30 unit/L [facility] Blood 03/24/2023 5:51 AM EDT 03/24/2023 6:02 AM EDT Narrative Resulting Agency Comment Spec In Lab Iram Borrero MD CHEMISTRY ORDERABLES [facility] [place] [address] * (ABNORMAL) Alanine Aminotransferase (03/24/2023 5:51 AM EDT) ALT 41(H) 0 - 30 unit/L [facility] Blood 03/24/2023 5:51 AM EDT 03/24/2023 6:02 AM EDT Narrative Resulting Agency Comment Spec In Lab Iram Borrero MD CHEMISTRY ORDERABLES Performing Organization Address [facility]/ZIP Co de Phone Number [facility] [place] [address] * (ABNORMAL) Potassium (03/24/2023 5:51 AM EDT) Pathologist [facility] Potassium 3.4(L) 3.5 - 5.0 mmol/L [facility] Comment: Please note: ??Patients [...] Borrero MD CHEMISTRY ORDERABLES Performing Organization Address [facility]/ZIP Co de Phone Number [facility] [place] [address] * (ABNORMAL) Differential, Automated (03/24/2023 3:51 AM EDT) Neutrophils % 51.7 % [facility] Neutr Abs (ANC) 3.49 1.70 - 6.10 x10(3)/mc L [facility] Lymphocytes % 37.0 % [facility] [facility] Lymphocytes Abs 2.5 0.9 - 3.2 x10(3)/mc L [facility] Monocytes % 4.1 % [facility] Monocyte Abs 0.3 0.3 - 0.9 x10(3)/mc L [facility] Eosinophils % 4.3 % [facility] Eosinophils Abs 0.3 0.0 - 0.4 x10(3)/mc L [facility] Basophils % 0.4 % [facility] Basophils Abs 0.0 0.0 - 0.1 x10(3)/[facility] Immature Gran % 2.50 % [facility] Comment: Immature granulocytes(IG's)percentage and absolute count will include metamyelocytes, myelocytes, and promyelocytes. Blood smears from CBCs yielding IG's will be scanned manually for concordance. If this scan disagrees with the automated IG or if promyelocytes are noted, a manual differential will be performed. Reshma Gran Abs 0.17(H) 0.00 - 0.04 x10(3)/[facility] Blood 03/24/2023 3:51 AM EDT 03/24/2023 4:09 AM EDT Narrative Resulting Agency Comment Spec In Lab Natalee Winn MD HEMATOLOGY ORDERABLE S Performing Organization Address City/State/[facility] Co de Phone Number [facility] [place] [address] * (ABNORMAL) Hemogram (03/24/2023 3:51 AM EDT) WBC 6.8 4.0 - 9.5 x10(3)/[facility]ATORY RBC 3.69(L) 4.00 - 5.21 x10(6)/[facility] Hemoglobin 10.5(L) 11.7 - 15.5 g/dL [facility] Hematocrit 31.5(L) 35.7 - 45.8 % [facility] MCV 85.4 82.6 - 94.4 fL [facility] MCH 28.5 27.1 - 32.0 pg [facility] MCHC 33.3 31.7 - 35.0 g/dL [facility] Platelets 268 145 - 357 x10(3)/[facility] RDWSD 46.3(H) 37.0 - 46.0 fL [facility] RDWCV 14.8(H) 11.5 - 14.1 % [facility] MPV 9.2 7.6 - 12.9 fL [facility] nRBC % Auto 0.0 % [facility] nRBC Abs Auto 0.000 0.000 - 0.000 x10(3)/mcL [facility] Blood 03/24/2023 3:51 AM EDT 03/24/2023 4:09 AM EDT Narrative Resulting Agency Comment Spec In Lab Natalee Winn MD HEMATOLOGY ORDERABLE S [facility] [place] [address] * (ABNORMAL) Comprehensive metabolic panel (non-fasting) (03/24/2023 3:51 AM EDT) Glucose Lvl 81 65 - 199 mg/dL [facility] Comment:Diabetes: >=200 mg/d L plus symptoms BUN 5(L) 8 - 18 mg/dL [facility] Creatinine 0.65(L) 0.70 - 1.20 mg/dL [facility] Sodium 141 135 - 145 mmol/L [facility] Potassium Not Perf 3.5 - 5.0 [facility] Comment: Unable to quantitate due [...] questions. Chloride 104 98 - 107 mmol/L [facility] CO2 29 22 - 31 mmol/L [facility] Anion Gap 8 5 - 15 mmol/L [facility] Calcium 8.3(L) 8.5 - 10.5 mg/dL [facility] Total Protein 5.1(L) 6.1 - 8.0 g/dL [facility] Albumin 3.0(L) 3.2 - 5.2 g/dL [facility] AST Not Perf 0 - 30 [facility] Comment: Unable to quantitate due to sample hemolysis. ??Sample redraw suggested. Called by: GUCCI, Read back by: Candelaria Fish, Date/Time:03/24/23 04:45. ALT Not Perf 0 - 30 [facility] Comment: Unable to quantitate due to sample hemolysis. ??Sample redraw suggested. Called by: GUCCI, Read back by: Candelaria Fish, Date/Time:03/24/23 04:45. Alk Phos 103 35 - 105 unit/L [facility] Total Bilirubin 0.7 0.2 - 1.3 mg/dL [facility] Estimated GFR 111 >=60 mL/min/1. 73 m?? [facility] Comment: This patient's estimated [...] In Lab Natalee Winn MD CHEMISTRY ORDERABLES [facility] [place] [address] * Phosphorus (03/24/2023 3:51 AM EDT) Phosphorus 3.1 2.5 - 4.5 mg/dL [facility] Blood 03/24/2023 3:51 AM EDT 03/24/2023 4:09 AM EDT Narrative Resulting Agency Comment Spec In Lab Natalee Winn MD CHEMISTRY ORDERABLES Performing Organization Address City/[facility]/ZIP Co de Phone Number [facility] [place] [address] * Magnesium (03/24/2023 3:51 AM EDT) Pathologist [facility] Magnesium 0.75 0.69 - 1.07 mmol/L [facility] Blood 03/24/2023 3:51 AM EDT 03/24/2023 4:09 AM EDT Narrative Resulting Agency Comment Spec In Lab Natalee Winn MD CHEMISTRY ORDERABLES Performing Organization Address City/[facility] Co de Phone Number [facility] [place] [address] * (ABNORMAL) Differential, Automated (03/23/2023 8:07 AM EDT) [facility] Neutrophils % 79.5 % [facility] Neutr Abs (ANC) 7.13(H) 1.70 - 6.10 x10(3)/mc L [facility] Lymphocytes % 15.8 % [facility] Lymphocytes Abs 1.4 0.9 - 3.2 x10(3)/mc L [facility] Monocytes % 3.5 % [facility] Monocyte Abs 0.3 0.3 - 0.9 x10(3)/mc L [facility] Eosinophils % 0.1 % [facility] Eosinophils Abs 0.0 0.0 - 0.4 x10(3)/mc L [facility] Basophils % 0.3 % [facility] Basophils Abs 0.0 0.0 - 0.1 x10(3)/mc L [facility] Immature Gran % 0.80 % [facility] Comment: Immature granulocytes(IG's)percentage and absolute count will include metamyelocytes, myelocytes, and promyelocytes. Blood smears from CBCs yielding IG's will be scanned manually for concordance. If this scan disagrees with the automated IG or if promyelocytes are noted, a manual differential will be performed. Reshma Gran Abs 0.07(H) 0.00 - 0.04 x10(3)/[facility] Blood 03/23/2023 8:07 AM EDT 03/23/2023 8:20 AM EDT Narrative Resulting Agency Comment Spec In Lab Natalee Winn MD HEMATOLOGY ORDERABLE S [facility] [place] [address] * (ABNORMAL) Hemogram (03/23/2023 8:07 AM EDT) WBC 9.0 4.0 - 9.5 x10(3)/[facility] LAB[facility]ORY RBC 3.52(L) 4.00 - 5.21 x10(6)/[facility] Hemoglobin 10.2(L) 11.7 - 15.5 g/dL [facility] Hematocrit 30.2(L) 35.7 - 45.8 % [facility] MCV 85.8 82.6 - 94.4 fL [facility] MCH 29.0 27.1 - 32.0 pg [facility] MCHC 33.8 31.7 - 35.0 g/dL [facility] Platelets 268 145 - 357 x10(3)/[facility] RDWSD 46.7(H) 37.0 - 46.0 fL [facility] RDWCV 14.9(H) 11.5 - 14.1 % [facility] MPV 9.6 7.6 - 12.9 fL [facility] nRBC % Auto 0.0 % [facility] nRBC Abs Auto 0.000 0.000 - 0.000 x10(3)/[facility] Blood 03/23/2023 8:07 AM EDT 03/23/2023 8:20 AM EDT Narrative Resulting Agency Comment Spec In Lab Natalee Winn MD HEMATOLOGY ORDERABLE S [facility] [place] [address] * (ABNORMAL) Differential, Automated (03/23/2023 3:39 AM EDT) Neutrophils % 87.3 % [facility] Neutr Abs (ANC) 6.54(H) 1.70 - 6.10 x10(3)/[facility] Lymphocytes % 9.7 % [facility] Lymphocytes Abs 0.7(L) 0.9 - 3.2 x10(3)/[facility] Monocytes % 2.0 % [facility] Monocyte Abs 0.2(L) 0.3 - 0.9 x10(3)/[facility] Eosinophils % 0.1 % [facility] Eosinophils Abs 0.0 0.0 - 0.4 x10(3)/[facility] Basophils % 0.1 % [facility] Basophils Abs 0.0 0.0 - 0.1 x10(3)/[facility] Immature Gran % 0.80 % [facility] Comment: Immature granulocytes(IG's)percentage and absolute count will include metamyelocytes, myelocytes, and promyelocytes. Blood smears from CBCs yielding IG's will be scanned manually for concordance. If this scan disagrees with the automated IG or if promyelocytes are noted, a manual differential will be performed. Reshma Gran Abs 0.06(H) 0.00 - 0.04 x10(3)/mc L [facility] Blood 03/23/2023 3:39 AM EDT 03/23/2023 3:49 AM EDT Narrative Resulting Agency Comment Spec In Lab Natalee Winn MD HEMATOLOGY ORDERABLE S [facility] [place] [address] * (ABNORMAL) Hemogram (03/23/2023 3:39 AM EDT) WBC 7.5 4.0 - 9.5 x10(3)/[facility] LABORATORY RBC 3.72(L) 4.00 - 5.21 x10(6)/[facility] LAB[facility]ATORY Hemoglobin 10.5(L) 11.7 - 15.5 g/dL [facility] Hematocrit 31.8(L) 35.7 - 45.8 % [facility] MCV 85.5 82.6 - 94.4 [facility]ORY MCH 28.2 27.1 - 32.0 pg [facility] MCHC 33.0 31.7 - 35.0 g/dL [facility] Platelets 263 145 - 357 x10(3)/[facility] LABOR[facility]ORY RDWSD 47.2(H) 37.0 - 46.0 [facility] RDWCV 14.9(H) 11.5 - 14.1 % [facility] MPV 9.4 7.6 - 12.9 [facility] nRBC % Auto 0.0 % [facility] nRBC Abs Auto 0.000 0.000 - 0.000 x10(3)/[facility] Blood 03/23/2023 3:39 AM EDT 03/23/2023 3:49 AM EDT Narrative Resulting Agency Comment Spec In Lab Natalee Winn MD HEMATOLOGY ORDERABLE S [facility] [place] [address] * (ABNORMAL) Comprehensive metabolic panel (non-fasting) (03/23/2023 3:39 AM EDT) Glucose Lvl 111 65 - 199 mg/dL [facility] Comment:Diabetes: >=200 mg/d L plus symptoms BUN 6(L) 8 - 18 mg/dL [facility] Creatinine 0.61(L) 0.70 - 1.20 mg/dL [facility] Sodium 139 135 - 145 mmol/L [facility] Potassium 4.3 3.5 - 5.0 mmol/L [facility] Comment: Please note: ??Patients with WBC >100,000 may have falsely elevated Potassium levels. ??For accurate Potassium quantification in these patients send serum separator tube (gold top) for subsequent determinations. ??Contact the Clinical Chemistry Laboratory if there are any questions. Chloride 103 98 - 107 mmol/L [facility] CO2 27 22 - 31 mmol/L [facility] Anion Gap 9 5 - 15 mmol/L [facility] Calcium 8.8 8.5 - 10.5 mg/dL [facility] Total Protein 5.4(L) 6.1 - 8.0 g/dL [facility] Albumin 3.2 3.2 - 5.2 g/dL [facility] AST 39(H) 0 - 30 unit/L [facility] ALT 37(H) 0 - 30 unit/L [facility] Alk Phos 107(H) 35 - 105 unit/L [facility] Total Bilirubin 0.7 0.2 - 1.3 mg/dL [facility] Estimated GFR 112 >=60 mL/min/1. 73 m?? [facility] Comment: This patient's estimated [...] Winn MD CHEMISTRY ORDERABLES Performing Organization Address City/[facility]/ZIP Co de Phone Number [facility] [place] [address] * Phosphorus (03/23/2023 3:39 AM EDT) Phosphorus 3.4 2.5 - 4.5 mg/dL [facility] Blood 03/23/2023 3:39 AM EDT 03/23/2023 3:49 AM EDT Narrative Resulting Agency Comment Spec In Lab Natalee Winn MD CHEMISTRY ORDERABLES Performing Organization Address City/[facility]/ZIP Co de Phone Number [facility] [place] [address] * Magnesium (03/23/2023 3:39 AM EDT) Pathologist [facility] Magnesium 0.80 0.69 - 1.07 mmol/L [facility] Blood 03/23/2023 3:39 AM EDT 03/23/2023 3:49 AM EDT Narrative Resulting Agency Comment Spec In Lab Natalee Winn MD CHEMISTRY ORDERABLES Performing Organization Address City/[facility]/ZIP Co de Phone Number [facility] [place] [address] * POCT Glucose (03/22/2023 9:46 PM EDT) POC Glucose 85 65 - 199 mg/dL [facility] Comment: Supplemental ranges: <140 mg/dL before meals <180 mg/dL all other times of the day Blood 03/22/2023 9:46 PM EDT 03/22/2023 9:46 PM EDT Iram Borrero MD POINT OF CARE TEST O MANDY Performing Organization Address [facility]/ZIP Co de Phone Number [facility] [place] [address] * POCT Glucose (03/22/2023 2:32 PM EDT) Pathologist [facility] POC Glucose 90 65 - 199 mg/dL [facility] Comment: Supplemental ranges: <140 mg/dL before meals <180 mg/dL all other times of the day Blood 03/22/2023 2:32 PM EDT 03/22/2023 2:32 PM EDT Iram Borrero MD POINT OF CARE TEST O MANDY Performing Organization Address City/[facility]/ZIP Co de Phone Number [facility] [place] [address] * (ABNORMAL) Differential, Automated (03/22/2023 4:17 AM EDT) Pathologist [facility] Neutrophils % 50.0 % [facility] Neutr Abs (ANC) 4.00 1.70 - 6.10 x10(3)/mc L [facility] Lymphocytes % 42.9 % [facility] Lymphocytes Abs 3.4(H) 0.9 - 3.2 x10(3)/mc L [facility] Monocytes % 5.1 % [facility] Monocyte Abs 0.4 0.3 - 0.9 x10(3)/mc L [facility] Eosinophils % 1.2 % [facility] Eosinophils Abs 0.1 0.0 - 0.4 x10(3)/mc L [facility] Basophils % 0.2 % [facility] Basophils Abs 0.0 0.0 - 0.1 x10(3)/mc L [facility] Immature Gran % 0.60 % [facility] Comment: Immature granulocytes(IG's)percentage and absolute count will include metamyelocytes, myelocytes, and promyelocytes. Blood smears from CBCs yielding IG's will be scanned manually for concordance. If this scan disagrees with the automated IG or if promyelocytes are noted, a manual differential will be performed. Reshma Gran Abs 0.05(H) 0.00 - 0.04 x10(3)/ L [facility] Blood 03/22/2023 4:17 AM EDT 03/22/2023 4:29 AM EDT Narrative Resulting Agency Comment Spec In Lab Lisandro Araya MD HEMATOLOGY ORDERABLE S Performing Organization Address City/State/[facility] Co de Phone Number [facility] [place] [address] * (ABNORMAL) Hemogram (03/22/2023 4:17 AM EDT) WBC 8.0 4.0 - 9.5 x10(3)/[facility] LABORATORY RBC 4.41 4.00 - 5.21 x10(6)/[facility]ORY Hemoglobin 12.6 11.7 - 15.5 g/dL [facility] Hematocrit 37.3 35.7 - 45.8 % [facility] MCV 84.6 82.6 - 94.4 fL [facility] MCH 28.6 27.1 - 32.0 pg [facility] MCHC 33.8 31.7 - 35.0 g/dL [facility] Platelets 384(H) 145 - 357 x10(3)/[facility] LAB[facility]ATORY RDWSD 44.9 37.0 - 46.0 fL [facility] RDWCV 14.6(H) 11.5 - 14.1 % [facility] MPV 9.5 7.6 - 12.9 fL [facility] nRBC % Auto 0.0 % [facility] nRBC Abs Auto 0.000 0.000 - 0.000 x10(3)/mcL [facility] Blood 03/22/2023 4:17 AM EDT 03/22/2023 4:29 AM EDT Narrative Resulting Agency Comment Spec In Lab Lisandro Araya MD HEMATOLOGY ORDERABLE S [facility] [place] [address] * (ABNORMAL) Comprehensive metabolic panel (non-fasting) (03/22/2023 4:17 AM EDT) Glucose Lvl 101 65 - 199 mg/dL [facility] Comment:Diabetes: >=200 mg/d L plus symptoms BUN 7(L) 8 - 18 mg/dL [facility] Creatinine 0.69(L) 0.70 - 1.20 mg/dL [facility] Sodium 140 135 - 145 mmol/L [facility] Potassium 3.4(L) 3.5 - 5.0 mmol/L [facility] Comment: Please note: ??Patients with WBC >100,000 may have falsely elevated Potassium levels. ??For accurate Potassium quantification in these patients send serum separator tube (gold top) for subsequent determinations. ??Contact the Clinical Chemistry Laboratory if there are any questions. Chloride 98 98 - 107 mmol/L [facility] CO2 32(H) 22 - 31 mmol/L [facility] Anion Gap 10 5 - 15 mmol/L [facility] Calcium 9.0 8.5 - 10.5 mg/dL [facility] Total Protein 6.2 6.1 - 8.0 g/dL [facility] Albumin 3.8 3.2 - 5.2 g/dL [facility] AST 30 0 - 30 unit/L [facility] ALT 37(H) 0 - 30 unit/L [facility] Alk Phos 118(H) 35 - 105 unit/L [facility] Total Bilirubin 0.9 0.2 - 1.3 mg/dL [facility] Estimated GFR 109 >=60 mL/min/1. 73 m?? [facility] Comment: This patient's estimated [...] Winn MD CHEMISTRY ORDERABLES Performing Organization Address [facility] Co de Phone Number [facility] [place] [address] * Phosphorus (03/22/2023 4:17 AM EDT) Phosphorus 3.1 2.5 - 4.5 mg/dL [facility] Blood 03/22/2023 4:17 AM EDT 03/22/2023 4:29 AM EDT Narrative Resulting Agency Comment Spec In Lab Natalee Winn MD CHEMISTRY ORDERABLES Performing Organization Address [facility]/ZIP Co de Phone Number [facility] [place] [address] * Magnesium (03/22/2023 4:17 AM EDT) Magnesium 0.94 0.69 - 1.07 mmol/L [facility] Blood 03/22/2023 4:17 AM EDT 03/22/2023 4:29 AM EDT Narrative Resulting Agency Comment Spec In Lab Natalee Winn MD CHEMISTRY ORDERABLES Performing Organization Address [facility] Co de Phone Number [facility] [place] [address] * Vitamin B12 (03/21/2023 6:00 PM EDT) Vitamin B-12 612 232 - 1,245 pg/mL [facility] Blood 03/21/2023 6:00 PM EDT 03/21/2023 6:13 PM EDT Narrative Resulting Agency Comment Spec In Lab Iram Borrero MD CHEMISTRY ORDERABLES Performing Organization Address [facility] Co de Phone Number [facility] [place] [address] * (ABNORMAL) Folate, serum (03/21/2023 6:00 PM EDT) Folate Lvl 4.0(L) 4.8 - 24.2 ng/mL [facility] Blood 03/21/2023 6:00 PM EDT 03/21/2023 6:13 PM EDT Narrative Resulting Agency Comment Spec In Lab Iram Borrero MD CHEMISTRY ORDERABLES Performing Organization Address City/[facility] Co de Phone Number [facility] [place] [address] * (ABNORMAL) Vitamin B1, whole blood (03/21/2023 6:00 PM EDT) Vit B1 Lvl WB 32(L) 70 - 180 nmol/L [facility] Comment: ADDITIONAL INFORMATION This test was developed and its performance characteristics determined by [facility] in a manner consistent with CLIA requirements. This test has not been cleared or approved by the U.S. Food and Drug Administration. Test Performed by: [facility] [address] [place] [address] [employer]: Erlin Orlando M.D. Ph.D.; CLIA# [id number] Blood 03/21/2023 6:00 PM EDT 03/22/2023 12:57 PM EDT Narrative Resulting Agency Comment Spec In Lab Iram Borrero MD CHEMISTRY ORDERABLES [facility] [place] [address] * CT Head wo Contrast (Generic) (03/21/2023 [...] who have questions please contact the health intensive care unit nurse that requested your imaging first. ? Electronically signed by: Erlin Castorena DO, [facility] ??([phone]), at 03/21/2023 12:49 PM Narrative 03/21/2023 12:49 [...] patients who have questions please contactthe health intensive care unit nurse that requested your imaging first. Electronically signed by: Erlin Castorena DO, [facility]([phone]), at 03/21/2023 12:49 PM Iram Borrero MD IM CT ORDERABLES * (ABNORMAL) Differential, Automated (03/21/2023 3:46 AM EDT) Neutrophils % 66.3 % [facility] Neutr Abs (ANC) 5.44 1.70 - 6.10 x10(3)/mc L [facility] Lymphocytes % 25.6 % [facility] Lymphocytes Abs 2.1 0.9 - 3.2 x10(3)/mc L [facility] Monocytes % 5.6 % [facility] Monocyte Abs 0.5 0.3 - 0.9 x10(3)/mc L [facility] Eosinophils % 1.1 % [facility] Eosinophils Abs 0.1 0.0 - 0.4 x10(3)/mc L [facility] Basophils % 0.5 % [facility] Basophils Abs 0.0 0.0 - 0.1 x10(3)/[facility] LABORATORY Immature Gran % 0.90 % [facility] Comment: Immature granulocytes(IG's)percentage and absolute count will include metamyelocytes, myelocytes, and promyelocytes. Blood smears from CBCs yielding IG's will be scanned manually for concordance. If this scan disagrees with the automated IG or if promyelocytes are noted, a manual differential will be performed. Reshma Gran Abs 0.07(H) 0.00 - 0.04 x10(3)/[facility] LABOR[facility]ORY Blood 03/21/2023 3:46 AM EDT 03/21/2023 4:07 AM EDT Narrative Resulting Agency Comment Spec In Lab Lisandro Araya MD HEMATOLOGY ORDERABLE S Performing Organization Address City/State/[facility] Co de Phone Number [facility] [place] [address] * (ABNORMAL) Hemogram (03/21/2023 3:46 AM EDT) WBC 8.2 4.0 - 9.5 x10(3)/[facility] LABORATORY RBC 4.60 4.00 - 5.21 x10(6)/[facility] LAB[facility]ATORY Hemoglobin 13.3 11.7 - 15.5 g/dL [facility] Hematocrit 37.6 35.7 - 45.8 % [facility] MCV 81.7(L) 82.6 - 94.4 fL [facility] MCH 28.9 27.1 - 32.0 pg [facility] MCHC 35.4(H) 31.7 - 35.0 g/dL [facility] Platelets 322 145 - 357 x10(3)/[facility] RDWSD 44.0 37.0 - 46.0 fL [facility] RDWCV 14.8(H) 11.5 - 14.1 % [facility] MPV 9.1 7.6 - 12.9 fL [facility] nRBC % Auto 0.0 % [facility] nRBC Abs Auto 0.000 0.000 - 0.000 x10(3)/mcL [facility] Blood 03/21/2023 3:46 AM EDT 03/21/2023 4:07 AM EDT Narrative Resulting Agency Comment Spec In Lab Lisandro Araya MD HEMATOLOGY ORDERABLE S [facility] [place] [address] * (ABNORMAL) Comprehensive metabolic panel (non-fasting) (03/21/2023 3:46 AM EDT) Glucose Lvl 105 65 - 199 mg/dL [facility] Comment:Diabetes: >=200 mg/d L plus symptoms BUN 6(L) 8 - 18 mg/dL [facility] Creatinine 0.54(L) 0.70 - 1.20 mg/dL [facility] Sodium 135 135 - 145 mmol/L [facility] Potassium 3.8 3.5 - 5.0 mmol/L [facility] Comment: Please note: ??Patients with WBC >100,000 may have falsely elevated Potassium levels. ??For accurate Potassium quantification in these patients send serum separator tube (gold top) for subsequent determinations. ??Contact the Clinical Chemistry Laboratory if there are any questions. Chloride 98 98 - 107 mmol/L [facility] CO2 27 22 - 31 mmol/L [facility] Anion Gap 10 5 - 15 mmol/L [facility] Calcium 8.4(L) 8.5 - 10.5 mg/dL [facility] Total Protein 6.0(L) 6.1 - 8.0 g/dL [facility] Albumin 3.6 3.2 - 5.2 g/dL [facility] AST 24 0 - 30 unit/L [facility] ALT 43(H) 0 - 30 unit/L [facility] Alk Phos 116(H) 35 - 105 unit/L [facility] Total Bilirubin 0.9 0.2 - 1.3 mg/dL [facility] Estimated GFR 116 >=60 mL/min/1. 73 m?? [facility] Comment: This patient's estimated [...] Winn MD CHEMISTRY ORDERABLES Performing Organization Address City/[facility]/ZIP Co de Phone Number [facility] [place] [address] * Phosphorus (03/21/2023 3:46 AM EDT) Phosphorus 3.0 2.5 - 4.5 mg/dL [facility] Blood 03/21/2023 3:46 AM EDT 03/21/2023 4:07 AM EDT Narrative Resulting Agency Comment Spec In Lab Natalee Winn MD CHEMISTRY ORDERABLES Performing Organization Address [facility]/ZIP Co de Phone Number [facility] [place] [address] * Magnesium (03/21/2023 3:46 AM EDT) Magnesium 0.81 0.69 - 1.07 mmol/L [facility] Blood 03/21/2023 3:46 AM EDT 03/21/2023 4:07 AM EDT Narrative Resulting Agency Comment Spec In Lab Natalee Winn MD CHEMISTRY ORDERABLES Performing Organization Address [facility] Co de Phone Number [facility] [place] [address] * (ABNORMAL) IgG 4 (03/21/2023 3:46 AM EDT) IgG 4 2.7(L) 3.9 - 86.4 mg/dL [facility] Blood 03/21/2023 3:46 AM EDT 03/21/2023 4:07 AM EDT Narrative Resulting Agency Comment Spec In Lab Natalee Winn MD IMMUNOLOGY ORDERABLE S Performing Organization Address [facility] Co de Phone Number [facility] [place] [address] * POCT Glucose (03/21/2023 3:45 AM EDT) [facility] POC Glucose 97 65 - 199 mg/dL [facility] Comment: Supplemental ranges: <140 mg/dL before meals <180 mg/dL all other times of the day Blood 03/21/2023 3:45 AM EDT 03/21/2023 3:45 AM EDT Iram Borrero MD POINT OF CARE TEST O RDERABLES Performing Organization Address [facility] Co de Phone Number [facility] [place] [address] * POCT Glucose (03/21/2023 12:02 AM EDT) Pathologist [facility] POC Glucose 108 65 - 199 mg/dL [facility] Comment: Supplemental ranges: <140 mg/dL before meals <180 mg/dL all other times of the day Blood 03/21/2023 12:0 2 AM EDT 03/21/2023 12:02 AM EDT Iram Borrero MD POINT OF CARE TEST O MANDY Performing Organization Address [facility] de Phone Number [facility] [place] [address] * POCT Glucose (03/20/2023 9:38 PM EDT) POC Glucose 95 65 - 199 mg/dL [facility] Comment: Supplemental ranges: <140 mg/dL before meals <180 mg/dL all other times of the day Blood 03/20/2023 9:38 PM EDT 03/20/2023 9:38 PM EDT Iram Borrero MD POINT OF CARE TEST Maribel GALVAN Performing Organization Address [facility] de Phone Number [facility] [place] [address] * UPPER GI ENDOSCOPY (03/20/2023 10:26 AM EDT) Pathologist [facility] UPPER GI ENDOSCOPY [facility] Endoscopy Procedure Date: 03/20/2023 10:26 AM ? Patient Name: Leandra Wilks ? Date of : 1980 ? Age: 43 ? Order #: [id number] ? Instrument Name: [id number] ? Procedure: ? Upper GI endoscopy Indications: [...] appearing mucosa. This was traversed. The ? [id number] limb was characterized by healthy ? appearing [...] GENERAL SURGICAL ORD ERABLES Performing Organization Address [facility] de Phone Number [facility] * (ABNORMAL) Hepatic Function Panel (03/20/2023 2:32 AM EDT) Total Protein 5.8(L) 6.1 - 8.0 g/dL [facility] Albumin 3.4 3.2 - 5.2 g/dL [facility] AST 42(H) 0 - 30 unit/L [facility] ALT 57(H) 0 - 30 unit/L [facility] Alk Phos 111(H) 35 - 105 unit/L [facility] Total Bilirubin 1.0 0.2 - 1.3 mg/dL [facility] Bili, Direct 0.4(H) 0.0 - 0.3 mg/dL [facility] Blood Venous Draw / Unknown 03/20/2023 2:32 AM EDT 03/20/2023 2:56 AM EDT Narrative Resulting Agency Comment Spec In Lab Dick Bower MD CHEMISTRY ORDERABLES Performing Organization Address [facility]/ZIP Co de Phone Number [facility] [place] [address] * (ABNORMAL) Differential, Automated (03/20/2023 2:32 AM EDT) Neutrophils % 57.4 % [facility] Neutr Abs (ANC) 3.08 1.70 - 6.10 x10(3)/ L [facility] Lymphocytes % 32.5 % [facility] Lymphocytes Abs 1.7 0.9 - 3.2 x10(3)/[facility] Monocytes % 7.1 % [facility] Monocyte Abs 0.4 0.3 - 0.9 x10(3)/[facility] Eosinophils % 1.3 % [facility] Eosinophils Abs 0.1 0.0 - 0.4 x10(3)/[facility] Basophils % 0.6 % [facility] Basophils Abs 0.0 0.0 - 0.1 x10(3)/[facility] Immature Gran % 1.10 % [facility] Comment: Immature granulocytes(IG's)percentage and absolute count will include metamyelocytes, myelocytes, and promyelocytes. Blood smears from CBCs yielding IG's will be scanned manually for concordance. If this scan disagrees with the automated IG or if promyelocytes are noted, a manual differential will be performed. Reshma Gran Abs 0.06(H) 0.00 - 0.04 x10(3)/ L [facility] Blood 03/20/2023 2:32 AM EDT 03/20/2023 2:54 AM EDT Narrative Resulting Agency Comment Spec In Lab Lisandro Araya MD HEMATOLOGY ORDERABLE S [facility] [place] [address] * (ABNORMAL) Hemogram (03/20/2023 2:32 AM EDT) Pathologist [facility] WBC 5.4 4.0 - 9.5 x10(3)/[facility] RBC 4.23 4.00 - 5.21 x10(6)/[facility] Hemoglobin 12.1 11.7 - 15.5 g/dL [facility] Hematocrit 35.0(L) 35.7 - 45.8 % [facility] MCV 82.7 82.6 - 94.4 fL [facility] MCH 28.6 27.1 - 32.0 pg [facility] MCHC 34.6 31.7 - 35.0 g/dL [facility] Platelets 319 145 - 357 x10(3)/[facility] RDWSD 44.6 37.0 - 46.0 [facility] RDWCV 14.7(H) 11.5 - 14.1 % [facility] MPV 9.2 7.6 - 12.9 [facility] nRBC % Auto 0.0 % [facility] nRBC Abs Auto 0.000 0.000 - 0.000 x10(3)/[facility] Blood 03/20/2023 2:32 AM EDT 03/20/2023 2:54 AM EDT Narrative Resulting Agency Comment Spec In Lab Lisandro Araya MD HEMATOLOGY ORDERABLE S Performing Organization Address City/State/[facility] Co de Phone Number [facility] [place] [address] * Phosphorus (03/20/2023 2:32 AM EDT) Phosphorus 3.6 2.5 - 4.5 mg/dL [facility] Blood 03/20/2023 2:32 AM EDT 03/20/2023 2:53 AM EDT Narrative Resulting Agency Comment Spec In Lab Natalee Winn MD CHEMISTRY ORDERABLES [facility] [place] [address] * Magnesium (03/20/2023 2:32 AM EDT) Pathologist [facility] Magnesium 0.83 0.69 - 1.07 mmol/L [facility] Blood 03/20/2023 2:32 AM EDT 03/20/2023 2:53 AM EDT Narrative Resulting Agency Comment Spec In Lab Natalee Winn MD CHEMISTRY ORDERABLES Performing Organization Address City/[facility]/ZIP Co de Phone Number [facility] [place] [address] * (ABNORMAL) Basic Metabolic Panel (non-fasting) (03/20/2023 2:32 AM EDT) Pathologist [facility] Glucose Lvl 122 65 - 199 mg/dL [facility] Comment:Diabetes: >=200 mg/d L plus symptoms BUN 4(L) 8 - 18 mg/dL [facility] Creatinine 0.42(L) 0.70 - 1.20 mg/dL [facility] Sodium 134(L) 135 - 145 mmol/L [facility] Potassium 4.1 3.5 - 5.0 mmol/L [facility] Comment: Please note: ??Patients with WBC >100,000 may have falsely elevated Potassium levels. ??For accurate Potassium quantification in these patients send serum separator tube (gold top) for subsequent determinations. ??Contact the Clinical Chemistry Laboratory if there are any questions. Chloride 97(L) 98 - 107 mmol/L [facility] CO2 26 22 - 31 mmol/L [facility] Anion Gap 11 5 - 15 mmol/L [facility] Calcium 8.1(L) 8.5 - 10.5 mg/dL [facility] Estimated GFR 123 >=60 mL/min/1. 73 m?? [facility] Comment: This patient's estimated [...] In Lab Iram Borrero MD CHEMISTRY ORDERABLES [facility] [place] [address] * MRI Cholangiopancreatography WO Contrast (03/19/2023 5:40 [...] who have questions please contact the health intensive care unit nurse that requested your imaging first. ? Electronically signed by: Maximo Forrest DO, [facility] ([phone]), at 03/20/2023 7:59 AM Narrative 03/20/2023 7:59 [...] visceral organs, gastrointestinal tract, and vascular structures. Pecan Grower Images: Noncontributory. Inferior thorax: Visualized structures within [...] thevisceral organs, gastrointestinal tract, and vascular structures. Pecan [employer]er Images: Noncontributory. Inferior thorax: Visualized structures within [...] patients who have questions please contactthe health intensive care unit nurse that requested your imaging first. Electronically signed by: Maximo Forrest DO, [facility]([phone]), at 03/20/2023 7:59 AM Iram Borrero MD IMG MRI ORDERABLES * (ABNORMAL) Phosphorus (03/19/2023 3:32 PM EDT) [facility] Phosphorus 2.3(L) 2.5 - 4.5 mg/dL [facility] Comment:result rechecked-nb Blood 03/19/2023 3:32 PM EDT 03/19/2023 3:53 PM EDT Narrative Resulting Agency Comment Spec In Lab Iram Borrero MD CHEMISTRY ORDERABLES Performing Organization Address [facility]/ZIP Co de Phone Number [facility] [place] [address] * (ABNORMAL) Magnesium (03/19/2023 3:32 PM EDT) [facility] Magnesium 0.63(L) 0.69 - 1.07 mmol/L [facility] Blood 03/19/2023 3:32 PM EDT 03/19/2023 3:53 PM EDT Narrative Resulting Agency Comment Spec In Lab Iram Borrero MD CHEMISTRY ORDERABLES Performing Organization Address City/[facility]/ZIP Co de Phone Number [facility] [place] [address] * (ABNORMAL) Basic Metabolic Panel (non-fasting) (03/19/2023 3:32 PM EDT) [facility] Glucose Lvl 100 65 - 199 mg/dL [facility] Comment:Diabetes: >=200 mg/d L plus symptoms BUN 5(L) 8 - 18 mg/dL [facility] Creatinine 0.40(L) 0.70 - 1.20 mg/dL [facility] Sodium 135 135 - 145 mmol/L [facility] Potassium 4.1 3.5 - 5.0 mmol/L [facility] Comment: Please note: ??Patients with WBC >100,000 may have falsely elevated Potassium levels. ??For accurate Potassium quantification in these patients send serum separator tube (gold top) for subsequent determinations. ??Contact the Clinical Chemistry Laboratory if there are any questions. Chloride 97(L) 98 - 107 mmol/L [facility] CO2 26 22 - 31 mmol/L [facility] Anion Gap 12 5 - 15 mmol/L [facility] Calcium 8.6 8.5 - 10.5 mg/dL [facility] Estimated GFR 124 >=60 mL/min/1. 73 m?? [facility] Comment: This patient's estimated [...] In Lab Iram Borrero MD CHEMISTRY ORDERABLES [facility] [place] [address] * XR Fluoro Barium Swallow (Double Contrast) [...] who have questions please contact the health intensive care unit nurse that requested your imaging first. ? Electronically signed by: Poppy Webster MD, [facility] ([phone]), at 03/19/2023 1:29 PM Narrative 03/19/2023 1:29 [...] patients who have questions please contactthe health intensive care unit nurse that requested your imaging first. Iram Borrero MD IMG FLUORO ORDERABLE S * POCT Glucose (03/19/2023 11:44 AM EDT) POC Glucose 93 65 - 199 mg/dL [facility] Comment: Supplemental ranges: <140 mg/dL before meals <180 mg/dL all other times of the day Blood 03/19/2023 11:4 4 AM EDT 03/19/2023 11:44 AM EDT Iram Borrero MD POINT OF CARE TEST O MANDY Performing Organization Address [facility] Co de Phone Number [facility] [place] [address] * POCT Glucose (03/19/2023 7:42 AM EDT) POC Glucose 92 65 - 199 mg/dL [facility] Comment: Supplemental ranges: <140 mg/dL before meals <180 mg/dL all other times of the day Blood 03/19/2023 7:42 AM EDT 03/19/2023 7:42 AM EDT Iram Borrero MD POINT OF CARE TEST O MANDY [facility] [place] [address] * (ABNORMAL) Differential, Automated (03/19/2023 3:49 AM EDT) Neutrophils % 63.3 % [facility] Neutr Abs (ANC) 5.94 1.70 - 6.10 x10(3)/[facility] Lymphocytes % 27.2 % [facility] Lymphocytes Abs 2.6 0.9 - 3.2 x10(3)/[facility] Monocytes % 7.2 % [facility] Monocyte Abs 0.7 0.3 - 0.9 x10(3)/[facility] Eosinophils % 1.5 % [facility] Eosinophils Abs 0.1 0.0 - 0.4 x10(3)/[facility] Basophils % 0.3 % [facility] Basophils Abs 0.0 0.0 - 0.1 x10(3)/[facility] Immature Gran % 0.50 % [facility] Comment: Immature granulocytes(IG's)percentage and absolute count will include metamyelocytes, myelocytes, and promyelocytes. Blood smears from CBCs yielding IG's will be scanned manually for concordance. If this scan disagrees with the automated IG or if promyelocytes are noted, a manual differential will be performed. Reshma Gran Abs 0.05(H) 0.00 - 0.04 x10(3)/[facility] Blood 03/19/2023 3:49 AM EDT 03/19/2023 4:00 AM EDT Narrative Resulting Agency Comment Spec In Lab Dick Bower MD HEMATOLOGY ORDERABLE S [facility] [place] [address] * (ABNORMAL) Hemogram (03/19/2023 3:49 AM EDT) WBC 9.4 4.0 - 9.5 x10(3)/[facility] RBC 4.10 4.00 - 5.21 x10(6)/[facility] Hemoglobin 12.0 11.7 - 15.5 g/dL [facility] Hematocrit 32.9(L) 35.7 - 45.8 % [facility] MCV 80.2(L) 82.6 - 94.4 [facility] MCH 29.3 27.1 - 32.0 pg [facility] MCHC 36.5(H) 31.7 - 35.0 g/dL [facility] Platelets 272 145 - 357 x10(3)/[facility] RDWSD 42.3 37.0 - 46.0 [facility] RDWCV 14.3(H) 11.5 - 14.1 % [facility] MPV 9.4 7.6 - 12.9 [facility] nRBC % Auto 0.2 % [facility] nRBC Abs Auto 0.020(H) 0.000 - 0.000 x10(3)/[facility] Blood 03/19/2023 3:49 AM EDT 03/19/2023 4:00 AM EDT Narrative Resulting Agency Comment Spec In Lab Dick Bower MD HEMATOLOGY ORDERABLE S Performing Organization Address City/State/[facility] Co de Phone Number [facility] [place] [address] * (ABNORMAL) Phosphorus (03/19/2023 3:49 AM EDT) Phosphorus 1.0(Critic al) 2.5 - 4.5 mg/dL [facility] Comment:called by [facility]/read b ack by joann rouse/ [phone] Blood 03/19/2023 3:49 AM EDT 03/19/2023 3:59 AM EDT Narrative Resulting Agency Comment Spec In Lab Natalee Winn MD CHEMISTRY ORDERABLES [facility] [place] [address] * Magnesium (03/19/2023 3:49 AM EDT) Pathologist [facility] Magnesium 0.69 0.69 - 1.07 mmol/L [facility] Blood 03/19/2023 3:49 AM EDT 03/19/2023 3:59 AM EDT Narrative Resulting Agency Comment Spec In Lab Natalee Winn MD CHEMISTRY ORDERABLES Performing Organization Address [facility] Co de Phone Number [facility] [place] [address] * (ABNORMAL) Basic Metabolic Panel (non-fasting) (03/19/2023 3:49 AM EDT) [facility] Glucose Lvl 84 65 - 199 mg/dL [facility] Comment:Diabetes: >=200 mg/d L plus symptoms BUN 8 8 - 18 mg/dL [facility] Creatinine 0.41(L) 0.70 - 1.20 mg/dL [facility] Sodium 135 135 - 145 mmol/L [facility] Potassium 3.1(L) 3.5 - 5.0 mmol/L [facility] Comment: Please note: ??Patients with WBC >100,000 may have falsely elevated Potassium levels. ??For accurate Potassium quantification in these patients send serum separator tube (gold top) for subsequent determinations. ??Contact the Clinical Chemistry Laboratory if there are any questions. Chloride 97(L) 98 - 107 mmol/L [facility] CO2 27 22 - 31 mmol/L [facility] Anion Gap 11 5 - 15 mmol/L [facility] Calcium 8.7 8.5 - 10.5 mg/dL [facility] Estimated GFR 124 >=60 mL/min/1. 73 m?? [facility] Comment: This patient's estimated [...] Borrero MD CHEMISTRY ORDERABLES Performing Organization Address [facility]/ZIP Co de Phone Number [facility] [place] [address] * POCT Glucose (03/19/2023 3:32 AM EDT) POC Glucose 104 65 - 199 mg/dL [facility] Comment: Supplemental ranges: <140 mg/dL before meals <180 mg/dL all other times of the day Blood 03/19/2023 3:32 AM EDT 03/19/2023 3:32 AM EDT Iram Borrero MD POINT OF CARE TEST O RDERABLES Performing Organization Address City/[facility]/ZIP Co de Phone Number [facility] [place] [address] * POCT Glucose (03/19/2023 2:38 AM EDT) POC Glucose 91 65 - 199 mg/dL [facility] Comment: Supplemental ranges: <140 mg/dL before meals <180 mg/dL all other times of the day Blood 03/19/2023 2:38 AM EDT 03/19/2023 2:38 AM EDT Iram Borrero MD POINT OF CARE TEST O MANDY Performing Organization Address [facility]/ZIP Co de Phone Number [facility] [place] [address] * POCT Glucose (03/19/2023 1:22 AM EDT) POC Glucose 151 65 - 199 mg/dL [facility] Comment: Supplemental ranges: <140 mg/dL before meals <180 mg/dL all other times of the day Blood 03/19/2023 1:22 AM EDT 03/19/2023 1:22 AM EDT Iram Borrero MD POINT OF CARE TEST O MANDY Performing Organization Address [facility] Co de Phone Number [facility] [place] [address] * POCT Glucose (03/19/2023 12:30 AM EDT) POC Glucose 140 65 - 199 mg/dL [facility] Comment: Supplemental ranges: <140 mg/dL before meals <180 mg/dL all other times of the day Blood 03/19/2023 12:3 0 AM EDT 03/19/2023 12:30 AM EDT Iram Borrero MD POINT OF CARE TEST O MANDY Performing Organization Address [facility] Co de Phone Number [facility] [place] [address] * (ABNORMAL) BLOOD GAS 2 VENOUS (03/18/2023 11:10 PM EDT) pH Larry 7.55(H) 7.32 - 7.42 [facility] pCO2 Larry 33(L) 41 - 51 mmHg [facility] pO2 Larry 42(H) 25 - 40 mmHg [facility] HCO3 Larry 27.7 mmol/L [facility] BE Larry 5.3 mmol/L [facility] Hgb Blood Gas Not Perf 11.7 - 15.5 g/dL [facility] O2HB Larry Not Perf % [facility] COHB Larry Not Perf % [facility] Comment: Nonsmokers: 0.5-1.5% COHB Smokers: Variable, but usually less than 10% Toxic: 20-30% COHB Lethal: Greater than 60% COHB METHB Larry Not Perf <=1.5 % [facility] Na Whole Blood 133(L) 135 - 145 mmol/L [facility] K Whole Blood 3.6 3.5 - 5.0 mmol/L [facility] Comment: Please note: Patients with WBC >100,000 may have falsely elevated Potassium levels. Contact the Clinical Chemistry Laboratory if there are any questions. ICa Whole Blood 1.09(L) 1.15 - 1.33 mmol/L [facility] Comment: Note: ??Total bilirubin higher than 20 mg/dL may lead to falsely low ionized calcium. CL Whole Blood 95(L) 98 - 107 mmol/L [facility] Gluc Whole Bld 144 65 - 199 mg/dL [facility] Comment:Diabetes: >=200 mg/d L plus symptoms Lactate WB 1.7 0.5 - 2.2 mmol/L [facility] BGas Source Venous [facility] Blood 03/18/2023 11:1 0 PM EDT 03/18/2023 11:10 PM EDT Iram Borrero MD CHEMISTRY ORDERABLES [facility] [place] [address] * (ABNORMAL) Beta Hydroxybutyrate (03/18/2023 11:08 PM EDT) BOHB 1.33(H) 0.00 - 0.30 mmol/L [facility] Comment: This test has not been cleared by the [place] FDA. Performance characteristics of this test were determined by [facility] in accordance with CLIA requirements. This laboratory is qualified under CLIA to perform high-complexity testing. Blood 03/18/2023 11:0 8 PM EDT 03/18/2023 11:14 PM EDT Narrative Resulting Agency Comment Spec In Lab Iram Borrero MD CHEMISTRY ORDERABLES [facility] [place] [address] * (ABNORMAL) Basic Metabolic Panel (non-fasting) (03/18/2023 11:08 PM EDT) Glucose Lvl 144 65 - 199 mg/dL [facility] Comment:Diabetes: >=200 mg/d L plus symptoms BUN 11 8 - 18 mg/dL [facility] Creatinine 0.40(L) 0.70 - 1.20 mg/dL [facility] Sodium 134(L) 135 - 145 mmol/L [facility] Potassium 3.3(L) 3.5 - 5.0 mmol/L [facility] Comment: Please note: ??Patients with WBC >100,000 may have falsely elevated Potassium levels. ??For accurate Potassium quantification in these patients send serum separator tube (gold top) for subsequent determinations. ??Contact the Clinical Chemistry Laboratory if there are any questions. Chloride 95(L) 98 - 107 mmol/L [facility] CO2 26 22 - 31 mmol/L [facility] Anion Gap 13 5 - 15 mmol/L [facility] Calcium 8.6 8.5 - 10.5 mg/dL [facility] Comment:reult rechecked-KS Estimated GFR 124 >=60 mL/min/1. 73 m?? [facility] [facility] Comment: This patient's estimated [...] Borrero MD CHEMISTRY ORDERABLES Performing Organization Address [facility] Co de Phone Number [facility] [place] [address] * POCT Glucose (03/18/2023 10:50 PM EDT) POC Glucose 134 65 - 199 mg/dL [facility] Comment: Supplemental ranges: <140 mg/dL before meals <180 mg/dL all other times of the day Blood 03/18/2023 10:5 0 PM EDT 03/18/2023 10:50 PM EDT Iram Borrero MD POINT OF CARE TEST O RDERABLES Performing Organization Address [facility] de Phone Number [facility] [place] [address] * EKG 12 Lead (03/18/2023 9:35 PM EDT) Ventricular rate 95 BPM MUSE SYSTEM Atrial Rate 95 BPM MUSE SYSTEM P-R Interval 140 ms MUSE SYSTEM QRS Duration 90 ms MUSE SYSTEM Q-T Interval 426 ms MUSE SYSTEM QTC Calculated (Bezet) 535 ms MUSE SYSTEM Calculated P [place] 25 degrees MUSE SYSTEM Calculated R [place] 0 degrees MUSE SYSTEM Calculated T [place] -86 degrees MUSE SYSTEM INTERPRETATION Normal sinus rhythm Left ventricular hypertrophy with repolarization abnormality ( R in aVL ) Abnormal ECG When compared with ECG of 18-MAR-2023 20:24, (unconfirmed) No significant change was found Confirmed by MD Babita, Andres ([id number]) on 03/19/2023 2:23:56 PM MUSE SYSTEM 03/18/2023 9:35 PM EDT 03/19/2023 2:23 PM EDT Iram Borrero MD ECG ORDERABLES Performing Organization Address [facility] Co de Phone Number MUSE SYSTEM * EKG 12 Lead (03/18/2023 8:24 PM EDT) Ventricular rate 91 BPM MUSE SYSTEM Atrial Rate 91 BPM MUSE SYSTEM P-R Interval 144 ms MUSE SYSTEM QRS Duration 94 ms MUSE SYSTEM Q-T Interval 430 ms MUSE SYSTEM QTC Calculated (Bezet) 528 ms MUSE SYSTEM Calculated P [place] 27 degrees MUSE SYSTEM Calculated R [place] 2 degrees MUSE SYSTEM Calculated T [place] -60 degrees MUSE SYSTEM INTERPRETATION Normal sinus rhythm Left ventricular hypertrophy with repolarization abnormality ( R in aVL , Ballinger product ) Prolonged QT Abnormal ECG When compared with ECG of 05-NOV-2007 13:07, T wave inversion more evident in Inferior leads T wave inversion now evident in Anterolateral leads QT has lengthened Confirmed by MD Babita, Andres ([id number]) on 03/19/2023 2:23:40 PM MUSE SYSTEM 03/18/2023 8:24 PM EDT 03/19/2023 2:23 PM EDT Salvador Blum MD ECG ORDERABLES Performing Organization Address [facility] de Phone Number MUSE SYSTEM * Lactate, whole blood, send to lab ([facility]) (03/18/2023 5:01 PM EDT) Pathologist [facility] Lactate WB 1.6 0.5 - 2.2 mmol/L [facility] Blood 03/18/2023 5:01 PM EDT 03/18/2023 5:10 PM EDT Narrative Resulting Agency Comment Spec In Lab Pito Mclaughlin MD CHEMISTRY ORDERABL ES Performing Organization Address City/[facility] Co de Phone Number [facility] [place] [address] * (ABNORMAL) Beta Hydroxybutyrate (03/18/2023 5:01 PM EDT) BOHB 3.29(H) 0.00 - 0.30 mmol/L [facility] Comment: This test has not been cleared by the [place] FDA. Performance characteristics of this test were determined by [facility] in accordance with CLIA requirements. This laboratory is qualified under CLIA to perform high-complexity testing. Blood 03/18/2023 5:01 PM EDT 03/18/2023 5:11 PM EDT Narrative Resulting Agency Comment Spec In Lab Pito Mclaughlin MD CHEMISTRY ORDERABL ES [facility] [place] [address] * (ABNORMAL) Differential, Automated (03/18/2023 3:49 PM EDT) Neutrophils % 78.5 % [facility] Neutr Abs (ANC) 7.98(H) 1.70 - 6.10 x10(3)/mc L [facility] Lymphocytes % 15.0 % [facility] Lymphocytes Abs 1.5 0.9 - 3.2 x10(3)/ L [facility] Monocytes % 5.3 % [facility] Monocyte Abs 0.5 0.3 - 0.9 x10(3)/ L [facility] Eosinophils % 0.2 % [facility] Eosinophils Abs 0.0 0.0 - 0.4 x10(3)/ L [facility] Basophils % 0.3 % [facility] Basophils Abs 0.0 0.0 - 0.1 x10(3)/mc L [facility] Immature Gran % 0.70 % [facility] Comment: Immature granulocytes(IG's)percentage and absolute count will include metamyelocytes, myelocytes, and promyelocytes. Blood smears from CBCs yielding IG's will be scanned manually for concordance. If this scan disagrees with the automated IG or if promyelocytes are noted, a manual differential will be performed. Reshma Gran Abs 0.07(H) 0.00 - 0.04 x10(3)/mc L [facility] Blood 03/18/2023 3:49 PM EDT 03/18/2023 4:03 PM EDT Narrative Resulting Agency Comment Spec In Lab Ivan GAINES HEMATOLOGY ORDERABLE S [facility] [place] [address] * (ABNORMAL) Hemogram (03/18/2023 3:49 PM EDT) WBC 10.2(H) 4.0 - 9.5 x10(3)/[facility] LABORATORY RBC 4.99 4.00 - 5.21 x10(6)/[facility] LAB[facility]ATORY Hemoglobin 14.4 11.7 - 15.5 g/dL [facility] Hematocrit 40.5 35.7 - 45.8 % [facility] MCV 81.2(L) 82.6 - 94.4 fL [facility] MCH 28.9 27.1 - 32.0 pg [facility] MCHC 35.6(H) 31.7 - 35.0 g/dL [facility] Platelets 350 145 - 357 x10(3)/[facility] LABORATORY RDWSD 42.1 37.0 - 46.0 [facility] RDWCV 14.4(H) 11.5 - 14.1 % [facility] MPV 9.1 7.6 - 12.9 [facility] nRBC % Auto 0.0 % [facility] nRBC Abs Auto 0.000 0.000 - 0.000 x10(3)/[facility] LABORATORY Blood 03/18/2023 3:49 PM EDT 03/18/2023 4:03 PM EDT Narrative Resulting Agency Comment Spec In Lab Ivan GAINES HEMATOLOGY ORDERABLE S Performing Organization Address [facility] Co de Phone Number [facility] [place] [address] * Prealbumin (03/18/2023 3:49 PM EDT) Prealbumin 21 20 - 40 mg/dL [facility] Comment: Prealbumin levels are generally lower in the pediatric population; adult concentrations are usually attained near puberty. Blood 03/18/2023 3:49 PM EDT 03/18/2023 4:03 PM EDT Narrative Resulting Agency Comment Spec In Lab Pito Mclaughlin MD CHEMISTRY ORDERABL ES Performing Organization Address [facility] Co de Phone Number [facility] [place] [address] * (ABNORMAL) Lipase (03/18/2023 3:49 PM EDT) Pathologist [facility] Lipase 156(H) 0 - 60 unit/L [facility] Blood 03/18/2023 3:49 PM EDT 03/18/2023 4:03 PM EDT Narrative Resulting Agency Comment Spec In Lab Pito Mclaughlin MD CHEMISTRY ORDERABL ES Performing Organization Address [facility] Co de Phone Number [facility] [place] [address] * (ABNORMAL) Hepatic Function Panel (03/18/2023 3:49 PM EDT) Total Protein 7.6 6.1 - 8.0 g/dL [facility] Albumin 4.4 3.2 - 5.2 g/dL [facility] AST 74(H) 0 - 30 unit/L [facility] ALT 87(H) 0 - 30 unit/L [facility] Alk Phos 152(H) 35 - 105 unit/L [facility] Total Bilirubin 1.4(H) 0.2 - 1.3 mg/dL [facility] Bili, Direct 0.6(H) 0.0 - 0.3 mg/dL [facility] Blood 03/18/2023 3:49 PM EDT 03/18/2023 4:03 PM EDT Narrative Resulting Agency Comment Spec In Lab Pito Mclaughlin MD CHEMISTRY ORDERABL ES [facility] [place] [address] * (ABNORMAL) Basic Metabolic Panel (non-fasting) (03/18/2023 3:49 PM EDT) Glucose Lvl 113 65 - 199 mg/dL [facility] Comment:Diabetes: >=200 mg/d L plus symptoms BUN 14 8 - 18 mg/dL [facility] Creatinine 0.47(L) 0.70 - 1.20 mg/dL [facility] Sodium 138 135 - 145 mmol/L [facility] Potassium 3.0(Criti royal) 3.5 - 5.0 mmol/L [facility] Comment: Result called by ANGELA and read back by Anjum Burroughs at 03/18/2023 [id number] Please note: ??Patients with WBC >100,000 may have falsely elevated Potassium levels. ??For accurate Potassium quantification in these patients send serum separator tube (gold top) for subsequent determinations. ??Contact the Clinical Chemistry Laboratory if there are any questions. Chloride 92(L) 98 - 107 mmol/L [facility] CO2 28 22 - 31 mmol/L [facility] Anion Gap 18(H) 5 - 15 mmol/L [facility] Calcium 9.7 8.5 - 10.5 mg/dL [facility] Estimated GFR 120 >=60 mL/min/1. 73 m?? [facility] Comment: This patient's estimated [...] Lab Pito Mclaughlin MD CHEMISTRY ORDERABL ES [facility] [place] [address] * (ABNORMAL) Urine culture (03/18/2023 1:52 PM EDT) Urine Culture Greater than 100,000 cfu/ml Escherichia coli(A) [facility] Organism Escherichia coli(A) [facility] Clean Catch Urine 03/18/2023 1:52 [...] - GENER AL ORDERABLES Performing Organization Address [facility]/ZIP Co de Phone Number [facility] [place] [address] * (ABNORMAL) Urinalysis Microscopic Exam (03/18/2023 1:52 PM EDT) RBC UA 15(H) 0 - 4 /HPF [facility] WBC UA 13(H) 0 - 5 /HPF [facility] Bacteria UA Many(A) None /HPF [facility] Squam Epith UA >36(H) <=4 /HPF [facility] Clean Catch Urine 03/18/2023 1:52 PM EDT 03/19/2023 8:39 AM EDT Narrative Resulting Agency Comment Spec In Lab Ivan GAINES URINE ORDERABLES Performing Organization Address [facility] Co de Phone Number [facility] [place] [address] * (ABNORMAL) Urinalysis with reflex Culture (03/18/2023 1:52 PM EDT) Glucose UA Negative Negative mg/dL [facility] Protein UA 100(A) Negative mg/dL [facility] Bilirubin UA Large(A) Negative mg/dL [facility] Comment: Clinical correlation required for positive Urine Bilirubin results as false positive may occur with some drugs and drug related products. If a false positive is suspected a serum total bilirubin should be considered if clinically indicated. Urobilinogen UA Normal Normal mg/dL [facility] pH UA 7.0 5.0 - 8.0 [facility] Blood UA Negative Negative mg/dL [facility] Ketones UA >=80(Critic al) Negative mg/dL [facility] Comment: Urinalysis result NOT critical without a combination of Glucose greater than or equal to 500 mg/dL AND Ketones greater than or equal to 80 mg/dL Nitrite UA Positive(A) Negative [facility] Leukocytes UA Small(A) Negative [facility] Appearance UA Turbid(A) Clear [facility] Spec [place] UA 1.027 1.005 - 1.030 [facility] Color UA [place](A) Yellow [facility] Culture Reflexed Yes [facility] Clean Catch Urine 03/18/2023 1:52 PM EDT 03/18/2023 1:52 PM EDT Narrative Resulting Agency Comment Spec In Lab Pito Mclaughlin MD URINE ORDERABLES [facility] [place] [address] * Film Library- Storage Only CT Abdomen & Pelvis (03/13/2023 12:00 AM EDT) Narrative Dicom, Auditing User - 03/18/2023 8:00 PM EDT This exam is auto-finalizing. It's purpose is for storage only. Iram Borrero MD [facility] FILM LIBRARY ORD ERABLES * Film Library- Storage Only Ultrasound Study (02/25/2023 12:00 AM EDT) Narrative Dicom, Auditing User - 03/18/2023 7:58 PM EDT This exam is auto-finalizing. It's purpose is for storage only. Iram Borrero MD [facility] FILM LIBRARY ORD ERABLES documented in this [...] Given 03/25/2023 2:46 AM EDT 650 mg cyclobenzaprine (Flexeril) tablet 5 mg 5 mg, [...] Brittani Pittman RN)2112 (Given - Provider: Jessica Nguyễn, MIKE) 0940 (Not Given - Provider: Elva Ronquillo LPN - Reason: Patient/family refused)214 (Given - Provider: Cl Goodman RN) 0833 (Not Given - Provider: Janneth Gomez LPN - Reason: Patient/family refused) enoxaparin (Lovenox) (40 mg/0.4 mL) subcutaneous injection 40 mg 40 mg, Subcutaneous, EVERY 24 HOURS SCHEDULED (Daily), First dose on 03/23/23 at 1000, Until Discontinued, Routine 1056 (Given [...] Jayshree Cerna RN)1348 (Given - Provider: Trinidad Chaves, MIKE)2113 (Given - Provider: Jessica Nguyễn, MIKE) 06 (Given - Provider: Jessica Nguyễn, MIKE)154 (Given - Provider: Danni Duran LPN - Comment: pt off floor)2141 (Given - Provider: Cl Goodman RN) 0648 (Given - Provider: Cl Goodman RN) pantoprazole (Protonix) injection 40 mg 40 mg, [...] Routine 1056 (Given - Provider: Brittani Pittman RN)2113 (Given - Provider: Jessica Nguyễn RN) 0941 (Given - Provider: Elva Ronquillo LPN)2141 (Given - Provider: Cl Goodman RN) 0834 [...] Goodman RN) 0900 (Given - Provider: Janneth M Pungot, KNOCKUP WORKER) sucralfate (Carafate) tablet 1 g 1 g, Oral, 4 TIMES DAILY BEFORE MEALS & NIGHTLY, First dose on Sat03/19/23 at 0730, Until Discontinued, OK to crush tablet, Routine 0730 (Not Given - Provider: Brittani Pittman RN - Reason: See comment)1056 (Given - Provider: Brittani Pittman RN)1731 (Given - Provider: Trinidad Chaves RN)1807 (Given - Provider: Mary Jimenes LPN)2114 (Given - Provider: Jessica Nguyễn, MIKE) 0627 (Given - Provider: Jessica Nguyễn, RN)0730 (Canceled Entry - Provider: Jessica Nguyễn [...] Provider: Brittani Pittman RN)1754 (Stopped - Provider: Mary Jimenes LPN) PRN Medication Order 03/27/2023 03/28/2023 [...] Routine documented in this encounter Care Teams Boat Officer Relationship Specialty Start Date End Date Sree High, BRYANNA [address] [place] [address] PCP - General Family Medicine 12/19/22 documented as of this encounter
--- OUTSIDE RECORDS SUMMARY | 2024-06-01 06:56 | XMS_ITS | Encounter Summary ---
[facility] Organization [facility] [place] [address] Care Team Providers Care Shipyard Laborer Name Role Phone Sree High APRN Primary Care Provider +1- [phone] Encounter Details Date Type Department Care Team (Late st Contact Info) Description 03/13/2023 Orders [place] [address] Azar Robles APRN [facility] [place] [address] S/P gastric bypass; Disorder of iron metabolism; Abdominal pain, unspecified abdominal location Social History Tobacco Use Types Packs/Day Years [...] as of this encounter Miscellaneous Notes * Addendum Note - Azar Robles APRN - 03/13/2023 9:51 AM EDTAddended by: AZAR ROBLES on: 03/13/2023 10:13 AM Modules accepted: Orders documented in this encounter Plan of Treatment [...] psychologist to work on eating behaviors Health Breakfast Server is sending hand-outs with exercises for [...] iron metabolism Other disorders of iron metabolism Abdominal pain, unspecified abdominal location documented in this encounter Care Teams Shipyard Laborer Relationship Specialty Start Date End Date Sree High APRN [address] [place] [address] PCP - General Family Medicine 12/19/22 documented as of this encounter
--- OUTSIDE RECORDS SUMMARY | 2024-06-01 06:56 | XMS_ITS | Encounter Summary ---
Author Organization [facility] Address [facility] [place] [address] Care Team Providers Care Railroader Name Role Phone Sree High APRN Primary Care Provider +1- [phone] Encounter Details Date Type Department Care Team (Late st Contact Info) Description 03/15/2023 Orders Only [place] [address] Iram Borrero MD [facility] [place] [address] Post-operative nausea and vomiting; Status post gastric [...] Type Priority Associated Diagnoses Orde r Schedule Hemogram Lab Routine Post-operative nausea and vomiting Status post gastric bypass for obesity Expected: 03/15/2023, Expires: 09/14/2023 Ferritin Lab Routine Post-operative nausea and vomiting Status post gastric bypass for obesity Expected: 03/15/2023, Expires: 09/14/2023 Comprehensive metabolic panel (non-fasting) Lab Routine Post-operative nausea and vomiting Status post gastric bypass for obesity Expected: 03/15/2023, Expires: 09/14/2023 Scheduled Procedures Name Priority Associated Diagnoses Date/Ti [...] psychologist to work on eating behaviors Health Strategic Marketing Specialist is sending hand-outs with exercises for [...] a week -can use [employer] Nutrition - 11/9/22 Lifestyle On track(2021 10:29 AM EST) Hailee [...] documented as of this encounter Results * Folate, serum (08/30/2023 3:36 PM EDT) Pathologist [facility] Folate Lvl 10.6 4.8 - 24.2 ng/mL [facility] Blood 08/30/2023 3:36 PM EDT 08/30/2023 3:49 PM EDT Narrative Resulting Agency Comment Spec In Lab Iram Borrero MD CHEMISTRY ORDERABLES Performing Organization Address City/[facility]/ZIP Co de Phone Number [facility] [place] [address] * (ABNORMAL) Iron and TIBC (08/30/2023 3:36 PM EDT) [facility] Iron 52 30 - 150 mcg/dL [facility] TIBC 270 250 - 450 mcg/dL [facility] Iron Saturation 19(L) 20 - 50 % [facility] Blood 08/30/2023 3:36 PM EDT 08/30/2023 3:49 PM EDT Narrative Resulting Agency Comment Spec In Lab Iram Borrero MD CHEMISTRY ORDERABLES Performing Organization Address City/[facility]/ZIP Co de Phone Number [facility] [place] [address] * PTH (08/30/2023 3:36 PM EDT) Pathologist [facility] PTH 46 15 - 65 pg/mL [facility] Blood 08/30/2023 3:36 PM EDT 08/30/2023 3:49 PM EDT Narrative Resulting Agency Comment Spec In Lab Iram Borrero MD CHEMISTRY ORDERABLES Performing Organization Address City/[facility]/ZIP Co de Phone Number [facility] [place] [address] * Vitamin D, 25-Hydroxy (08/30/2023 3:36 PM EDT) 25-OH Vit D Total 36 21 - 100 ng/mL [facility] 25-OH Vit D Interp Sufficient [facility] Blood 08/30/2023 3:36 PM EDT 08/30/2023 3:49 PM EDT Narrative Resulting Agency Comment Spec In Lab Iram Borrero MD CHEMISTRY ORDERABLES Performing Organization Address City/[facility]/ZIP Co de Phone Number [facility] [place] [address] * Vitamin B12 (08/30/2023 3:36 PM EDT) Vitamin B-12 538 232 - 1,245 pg/mL [facility] Blood 08/30/2023 3:36 PM EDT 08/30/2023 3:49 PM EDT Narrative Resulting Agency Comment Spec In Lab Iram Borrero MD CHEMISTRY ORDERABLES Performing Organization Address City/[facility]/ZIP Co de Phone Number [facility] [place] [address] * (ABNORMAL) Prealbumin (08/30/2023 3:36 PM EDT) Prealbumin 17(L) 20 - 40 mg/dL [facility] Comment: Prealbumin levels are generally lower in the pediatric population; adult concentrations are usually attained near puberty. Blood 08/30/2023 3:36 PM EDT 08/30/2023 3:49 PM EDT Narrative Resulting Agency Comment Spec In Lab Iram Borrero MD CHEMISTRY ORDERABLES [facility] [place] [address] documented in this encounter Visit Diagnoses Diagnosis Post-operative nausea and vomiting Nausea with vomiting Status post gastric bypass for obesity Bariatric surgery status documented in this encounter Care Teams Railroader Relationship Specialty Start Date End Date Sree High APRN [address] [place] [address] PCP - General Family Medicine 12/19/22 documented as of this encounter
--- OUTSIDE RECORDS SUMMARY | 2024-06-01 06:57 | XMS_ITS | Encounter Summary ---
Author Organization [facility] Address [facility] [place] [address] Care Team Providers Care Wool Buyer Name Role Phone None Primary Care Provider Unavailabl e Encounter Details Date Type Department Care Team ([facility] st Contact Info) Description 12/18/2022 2:45 PM EST Office Visit General Surgery at [facility], [place] [address] Iram Borrero MD [facility] [place] [address] Class 3 severe obesity with body mass index (BMI) of 40.0 to 44.9 in adult, unspecified obesity type, unspecified whether serious comorbidity present Social History Tobacco Use Types Packs/Day Years Used Date Smoking Tobacco: Never Smokeless Tobacco: Never Sex and Gender Information Value Date Recorded Sex Assigned at Female 10/05/2021 8:56 AM EST Gender Identity Not on file Sexual Orientation Straight 10/05/2021 8: 56 AM EST documented as of this encounter Progress Notes * Iram Borrero MD - 12/18/2022 2:45 PM EST Attending addendum: I have seen and examined the patient jointly with Anni Banks APRN. In brief, this is a 42 y.o. year old female with a BMI of 40.8, presenting for evaluation prior to bariatric surgery. I agree with the events, physical exam findings and assessment/plan as outlined. Since her last visit she has paid attention to her diarrhea and feels that it is eating induced. Since changing her diet she feels it is a lot better. She has been working with a therapist for her insomnia and feels this is improved. We had a misunderstanding at her last visit regarding her depression. She does feel it is controlled and that the days in bed are mostly secondary to pain. She feelsshe can handle this pain without NSAIDs. We had a very clear discussion on the risks of NSAID use after bypass and she expressed understanding and confidence that she could manage her pain without NSAIDs. We also discussed the importance ofmaking good food choices to avoid diarrhea, especially after bypass. She feels confident about her decision to proceed with gastric bypass. Will plan to proceed with laparoscopic anthony en y gastric bypass. We discussed the procedures of laparoscopic sleeve gastrectomy and laparoscopic anthony en y gastric bypass. The patient would like to proceed with a laparoscopic anthony en y gastric bypass. We discussed the benefits of surgery as well as the small but real risks including but not limited to need for open surgery, bleeding, infection, anastomotic leak, DVT and pulmonary embolis, stricture, postoperative reflux and . We discussed the possibility of poor weight loss and the need to make sustaineddietary changes in order for the surgery to be successful. Patient understands the superintendent container terminal risks of vitamin deficiencies, internal hernias and ulcers. Patient realizes the need for life long followup with the bariatric surgery program and understands the importance of the preoperative diet in terms of safety and ability to perform the procedure. Consent was signed today. She has had an opportunity to have all her questions answered and is in agreement with the plan of care. She was encouraged to call with any questions or concerns. Iram Borrero MD documented in this encounter Plan of Treatment [...] psychologist to work on eating behaviors Health Pulp Mill Supervisor is sending hand-outs with exercises for mindful eating, The Pause/STOP and Urge surfing. Patient will review and try implementing some behaviors before we meet again. movement Lifestyle On track(2021 10:29 AM EST) Jill Colmenares, CLOUD SERVICES ARCHITECT Note: Exercise goal is 150 min a [...] as of this encounter Visit Diagnoses Diagnosis Class 3 severe obesity with body mass index (BMI) of 40.0 to 44.9 in adult, unspecified obesity type, unspecified whether serious comorbidity present documented in this encounter Care Teams Wool Buyer Relationship Specialty Start Date End Date None None PCP - General 06/07/22 12/18/22 documented as of this encounter
--- OUTSIDE RECORDS SUMMARY | 2024-06-01 06:57 | XMS_ITS | Encounter Summary ---
Author Organization [facility] Address [facility] [place] [address] Care Team Providers Care Grassland Conservationist Name Role Phone Sree High APRN Primary Care Provider [phone]- [phone] Encounter Details Date Type Department Care Team (Late st Contact Info) Description 01/17/2023 12:05 AM EST Ancillary [place] [address] Sree High APRN [address] [place] [address] Social History Tobacco Use Types Packs/Day Years [...] On track(2021 10:28 AM EST) Jill Colmenares, SPECIAL EDUCATION PARAEDUCATOR Note: Mindfulness/deep breathing practice to reduce cortisol -try for at least 10 minutes a day -try an ap such as headspace I have referred you to our psychologist to work on eating behaviors Health Wire Steward is sending hand-outs with exercises for mindful eating, The Pause/STOP and Urge surfing. Patient will review and try implementing some behaviors before we meet again. movement Lifestyle On track(2021 10:29 AM EST) Jill Colmenares, SPECIAL EDUCATION PARAEDUCATOR Note: Exercise goal is 150 min a week, just do some walking, even [address] to start Recommend resistance training 3 times a week -can use therVirtustream Nutrition - 09/26/22 Lifestyle On track(2021 10:29 [...] Associated Diagnosis Comments FILM LIBRARY STORAGE ONLY DX CHEST Routine 01/17/2023 12:05 AM EST documented in this encounter Results * Film Library- Storage Only DX Chest (01/17/2023 12:05 AM EST) Narrative DEE - 01/18/2023 1:21 PM EST This exam is auto-finalizing. It's purpose is for storage only. Sree High APRN IMG FILM LIBRARY O RDERABLES [place], [place] documented in this encounter Visit Diagnoses Not on filedocumented in this encounter Care Teams Grassland Conservationist Relationship Specialty Start Date End Date Sree High APRN [address] [place] [address] PCP - General Family Medicine 12/19/22 documented as of this encounter
--- OUTSIDE RECORDS SUMMARY | 2024-06-01 06:57 | XMS_ITS | Encounter Summary ---
Author Organization [facility] Address [facility] [place] [address] Care Team Providers Care Landfill Gas Plant Field Technician Name Role Phone Sree High APRN Primary Care Provider [phone]- [phone] Encounter Details Date Type Department Care Team (Late st Contact Info) Description 01/28/2023 Telephone [place] [id number] Iram Borrero MD [facility] [place] [address] Social History Tobacco Use Types Packs/Day Years [...] Telephone Encounter - Iram Borrero MD - 01/28/2023 2:23 PM EDT I called Ms. Wilks this afternoon to check in about her PO intake. Since I last saw her she has had instances where she has eaten shrimp, chicken and potatoes. She said the chicken and potatoes wentdown pretty well compared to the liquids. She is still getting a sharp pain in her left upper abdomen when she swallows. Today she reports having 4-5 oz of water and 8 teaspoons of sugar free jello. S he says the levsin isn't really helping. She is having BMs every other day. She says that she needsto learn to not push herself with her diet. I suggested she ask her family to not leave food out ifit will be tempting for her. She says she didn't realize it was going to be this hard post op. I encouraged her to follow the advice our team is giving her regarding diet advancement. She is going mely seen tomorrow for a check up and possible IV fluids. Iram Borrero MD documented in this encounter [...] psychologist to work on eating behaviors Health Litigation Assistant is sending hand-outs with exercises for [...] on filedocumented in this encounter Care Teams Landfill Gas Plant Field Technician Relationship Specialty Start Date End Date Sree High APRN [address] [place] [address] PCP - General Family Medicine 12/19/22 documented as of this encounter
--- OUTSIDE RECORDS SUMMARY | 2024-06-01 06:57 | XMS_ITS | Encounter Summary ---
Author Organization [facility] [place] [address] Care Team Providers Care Vending Stand Supervisor Name Role Phone Sree High APRN Primary Care Provider +1- [phone] Encounter Details Date Type Department Care Team (Latest Contact Info) Description 01/22/2023 1:00 PM EST TH Visit (TeleHealth) [place] [address] Anni Varela APRN [facility] [place] [address] Stacey Ly, RD [facility] [place] [address] Nausea without vomiting; S/P gastric bypass; Disorder of iron metabolism [...] * Patient Instructions* Anni Varela APRN - 01/22/2023 1:00 PM EST Bariatric Surgery Program First Post-operative Follow up visit Contact information: BSP support teacher: Kelsey: [phone] and Lorraine [phone] Dietitians: [phone] Surgeons/ nurse practitioners: [phone] Nurse line: [phone] Dear Leandra, Thank you for following up with the Bariatric Surgery Program at [facility]. Please review your medical note from today's visit for specific information we discussed. Next follow up visit: at 4 months post-op. Testing: Labwork will be done at your 4 month post-op appointment. The lab orders will be in the system before your visit. The main lab is at [address] and does not require an appointment. The hours are Saturday through Saturday, 6:45 am to 6:00 pm. Here's the link to [facility] Lab hours and locations, in case one of the other locations is more convenient for you: [email or web address] If you have labwork done by your primary acute care nursing assistant before that date, please have a copy sent to the Bariatric Surgery Program. Post surgery Medications: 1. Continue medication to prevent ulcer (likely a PPI like omeprazole) until you are at least 3 months post surgery, or as indicated by your primary care doctor. 2. If you have a gallbladder, continue to take ursodiol for a total of 6 months after surgery to prevent gallstones from forming, and to shrink any gallstones that may be present. Vitamins/Nutrition/Activity Recommendations: Please see your visit note for personalized recommendations General Supplement recommendations: Multivitamins with minerals twice daily- needs [...] Blow dry area on low setting with unhairing machine operator. Apply absorbent powder such as Gold Isaacs and [...] control for women of child bearing age: control is recommended for at least 18-24 months after surgery. f non-prescribed drugs and treet drugs is unsafe Anti-inflammatory medications (NSAIDs) such as Ibuprofen (Advil), Aleve (Naproxen), Excedrin, Angella-Manila should be avoided for at least the first 2 months after surgery. After that they should be used sparingly very sparingly as they increase the risk of ulcer and bleeding. A bone mineral density scan (DEXA) is recommended every 2 years after bariatric surgery. Please schedule this study through your primary care provider's office. Hair Loss: is associated with rapid [...] be increased with higher than predicted weight loss. Potential lifetime risks of sleeve gastrectomy include developed heartburn or severe reflux. Call us: If you have concerns. If you have unexplained abdominal pain if you see blood in your stool or vomit blood If you have prolonged vomiting Post Surgery Support Group: Our post surgery support group meets at [facility] on the first Saturday of every month from 1:00 PM-2:00 PM, call to sign up! Nutrition and Activity apps- Baritastic, My Fitness Pal, Lose It, My Plate Internet resources: www.AnyPerk www.ISK INTER[employer] www.bariatriceating.Liveclubs www.Fruitfulll.Liveclubs/blog [facility] facebook page: [email or web address]://www.facebook.[email or web address]gery Books & Magazines: - Recipes for Life After Weight Loss Surgery by Anupama Gao - Shrink Yourself by Dr Vic Bond - Eating Well - www.Newsreps - Cooking Light- www.Triples Media.Liveclubs Anxiety: The Happiness Trap by Kemal Figueroa The Mindfulness and acceptance workbook for anxiety By Sukhdev Roe. Mindful eating: What are you Hungry For? By Ender Biggs The Mindful Diet by Any Gibbs and the [facility] group. Emotional eating: End Emotional Eating by Blaire Kelly Calming the Emotional Storm Jessren Rodriguez documented in this encounter Progress Notes * Anni Varela APRN - 01/22/2023 1:00 PM EST Images from the original note were not included. [place] [address] BARIATRIC SURGERY VIRTUAL NOTE 1. Reason/purpose for phone call: BSP post op visit. 2. The patient voiced an understanding of [...] and documentation. Reason for visit: Bariatric Surgery Post Op Check Surgery Info: s/p laparoscopic Saúl-en-Y gastric bypass on 01/10/[address] Borrero. Subjective: Leandra Wilks is s/p the above procedures, post operative course has been complicated by difficulty with the diet (poor PO intake). Port sites are healing as expected. Since her surgery, Leandra reports intake has been limited by LUQ pain/discomfort with both food and fluid intake. Yesterday Leandra drank 32 oz of water and a full Fairlife protein drink. Also had mashed potatoes (1/3 cup) and boiled chicken without any difficulty. Leandra started Levsin yesterday but continues to have discomfort with any intake. Thus far today she has had a harder time with intake reporting increased discomfort. Leandra notes she is having a hard time swallowing pills. She's taking all medications but states it's taking over an hour each morning. Leandra continues to have constipation (moving bowels every few days). Taking dulcolax 2/day. Patient endorses nausea, no vomiting (out side of ED visit last week). Using Zofran with good effect. Current Supplements: Vit D3 3,000 IU daily. Primary care post op follow up visit: Pt has not been seen by PCP. ED visits last week re: pain/vomiting after eating raw hamburger. Pre-Bariatric Surgery Obesity related medical issues: ?? Problem Baseline issue if checked Comments Diabetes/prediabetes/insulin resistance []? Metabolic syndrome or PCOS []? HTN []? Taking propranolol??for headaches GERD [x]? On PPI for post op ulcer prevention Hyperlipidemia []? CHUN [x]? 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 OA??(back) Liver Disease []? Other [x]? IBS-D??(episodes once a week), usually every day ?? Post Bariatric Surgery Medications: Extended VTE prophylaxis post surgery Not indicated. Post-discharge narcotic analgesic use No longer required. Ursodiol gallstone prophylaxis Not indicated, s/p cholecystectomy. PPI ulcer prophylaxis Taking as directed. Contraception s/p hysterectomy. ROS: No Fever, chills, some nausea, 1 episode of vomiting. Using daily anti-emetics. No Chest pain, SOB or palpitations No bladder concerns or changes (though urinating 2x/hr per patient). BM are tending toward constipation. Energy level is improving Appetite: as expected, trying to meet protein/fluid requirement Social history/support: boyfriend (Coleman) Health Habits: Tobacco: Never. ETOH: No alcohol [...] Post-op WT (lbs) BMI ?? %EBW lost ? Preop labs: labs completed. Vit D low ~ 21 Objective: There were no vitals taken for [...] Symptoms likely exacerbated by prematurely advancing diet. No current evidence of dehydration. Recommend PCP follow up re: frequent urination without dysuria or other UTI symptoms. Reviewed s/s dehydration and recommended patientseek medical evaluation if any occur. -Refilled zofran. -Reviewed Levsin administration instructions. ?? Reviewed protein and fluid goals and strategies to increase intake. Recommended patient start tracking. Food log mailed to patient. ?? Continue PPI therapy until at least 3 months post op to decrease the risk of ulcer formation andavoid NSAIDs. Discussed how to taper down/off. ?? Bowel Function: reviewed bowel regimen and importance of movement and fluids. Recommend BM at least every other day. Start daily miralax. Call if struggling. ?? Advised that hair loss due to rapid weight loss is typical 3-6 months post- surgery and should improve with time and adequate protein/ calorie intake. ?? Avoid ETOH until 6-12 months post-operatively, and then should be used in small amounts ?? Discussion re: resume stage 3 diet. Do not advance to stage 4 until 5 weeks post op. Discussed importance of chewing food completely, taking time to eat, trying to avoid more complex foods at thistime, food/fluids etc. ?? See lifter driver note re: recommendations regarding vitamin and mineral supplementation, fluid intake and exercise. ?? Additional vitamin and mineral supplement recommendations: hold supplements until follow up in 1week. RTC in 1 week for telehealth check re: PO intake. Call/rtc sooner prn with questions/concerns or unexplained abdominal pain, prolonged nausea, vomiting or inability to hydrate Bariatric Program Summary report is availabe for patient's review via e- Anni Varela APRN [facility] Bariatric Surgery Program RECOMMENDED BARIATRIC SURGERY PROGRAM [...] If labwork is done by the primary acute care nursing assistant: please send a copy to the Bariatric Surgery Program, General Surgery Clinic, [facility], or fax [phone] * Stacey Ly, RD - 01/22/2023 1:00 PM EST Images from the original note were not included. [place]ariat[place] [address] BARIATRIC SURGERY VIRTUAL NOTE 1. Reason/purpose for [...] chart review, the patient encounter, and documentation. ??Pt was in [place] at time of visit. ?? Topics Discussed/Patient Concerns: ??? Pt states that she was able to drink 2x16 oz bottles of water and 14 oz Nativo Corepower protein drink yesterday ??? Pt states that today she has only had 16 oz water ??? After performing diet recall pt stated that she also had eaten boiled chicken and mashed potatoes last night ??? Advised pt that these foods were too advanced for the stage 2 diet, cautioned pt against advancing the diet too quickly ??? Strongly encouraged pt to track intake, discussed tracking in marco a vs hand written journal ??? Plan to send pt food log she can use to log food and fluid intake ??? Discussed trying to have protein drink, polish yogurt, soup, etc at meal times and sipping on water in-between meals. Suggested pt have meals at 9am, 12pm, and 5:30pm ??? Reviewed supplements, rec pt try Bariatric Fusion Complete MVM, advised pt she does not need tostart supplements yet. Will discuss starting supplements once she is able to increase PO intake more consistently ??? Advised pt to stick to stage 2 diet until next visit with BSP SUPERVISOR BLOOD DONOR RECRUITERS/RD team. ?? Social history:??on disability??for multiple medical issues. lives w BF??w 3 of her sons (18-21).?Has 4 children. ?? Social support:??BF??(who is here with her today), mom, mental health counselor, best friend, sons ?? Hobbies:??likes to Park[employer] Parking, singing ?? Vision at 2 years post-op:??Healthier eating, improvement of health issues ?Goal weight: 150-160# ?? OBJECTIVE: ?? Medical Hx:?Class II obesity,??Anxiety, Back pain, Depression, GERD, Glaucoma, Insomnia, Insulinresistance/prediabetes, kidney stones, Migraine d/o and OA, CHUN ?? Date of Bariatric Surgery: 01/10/23 w/ Dr. Borrero Type of Bariatric Surgery: Laparoscopic Saúl-en-Y Gastric Bypass Weight History: Date Weight (lbs) HT BMI Comments?? Age 36 237# ? Highest Weight 06/17/21 228# 64 39.1 Initial program weight 10/09/22 228.8# 64 39.3 1st pre-op visit ? EWL % ?? Surgery ??01/22/23 ? 1.5 weeks post-op (tele-SpeakingPal, no weight reported) ? 4 months post-op [place] Body Weight (based on BMI of 25):??146# 30-70% Excess Weight Loss:??171-204#; 50% Excess Weight Loss:??187# ?? MEDICATIONS: ?? Vitamin/Mineral Supplements (reported by patient): Pt has not yet started supplements Supplement Type Brand/Form Dosage/Amount Frequency Comments Multivitamin ? rec Bariatric Fusion Complete Chewable MVM, advised pt she does not need to start supplements yet, will discuss starting after PO intake increases Calcium ? Vitamin B12 ? Iron ? Vitamin D3 ?? 3,000 IU?? daily? Food Allergies/Intolerances: none ?? Tracking Intake: pt reports using reminder marco a in her phone to track intake. Suggested pt either use [employer] marco a or hand written journal ?? Daily Oral Intake: ?? Breakfast ?? AM Snack ??Fairlife Corepower throughout the day Lunch ?? PM Snack ?? Dinner ??boiled chicken (3 bites), mashed potato (1/3 c) HS Snack ? Protein- grams/day: ??~30g Hydrating fluids - oz/day: ??46 oz total: 32 oz water, 14 oz protein drink Soda: ??n/a ETOH: ??n/a Caffeine: ??n/a Meals per day: ??2 ?? Other: ??? Feels full/satisfied after eating: yes ??? Spends at least 20 minutes eating each meal: yes ??? Vomiting/ regurgitation: no vomiting since Saturday ??? Nausea: +nausea, Zofran helps ??? Constipation/diarrhea: +constipation: taking 1-2 Doculax daily, advised pt to start 1 cap Miralax daily ?? Exercise: pt reports her energy is good ?? ASSESSMENT: Patient is 1.5 wks s/p bariatric surgery w/ poor PO intake. Pt is below protein and fluid goals. Ptstates that she was able to drink 2x16 oz bottles of water and 14 oz SKYE Associateswer protein drink yesterday. Pt states that today she has only had 16 oz water . After performing diet recall pt stated that she also had eaten boiled chicken and mashed potatoes last night, advised pt that these foods were too advanced for the stage 2 diet, cautioned pt against advancing the diet too quickly. Strongly encouraged pt to track intake, discussed tracking in marco a vs hand written journal, plan to sendpt food log she can use to log food and fluid intake. Discussed trying to have protein drink, greekyogurt, soup, etc at meal times and sipping on water in-between meals. Suggested pt have meals at 9am, 12pm, and 5:30pm. Advised pt to stick to stage 2 diet until next visit with BSP SUPERVISOR BLOOD DONOR RECRUITERS/RD team. Reviewed supplements, rec pt try Bariatric Fusion Complete MVM, advised pt she does not need to start supplements yet. Will discuss starting supplements once she is able to increase PO intake more consistently. ?? PLAN: ??? Evaluation by Anni Varela APRN today. ??? Provided support/encouragement and reinforced importance of meeting nutritional goals. ContinueStage 3 diet. Advance to Stage 4 diet starting 5 weeks post-op. ??? Aim for 60-80g of protein/day- eat protein at all meals and snacks, eat protein first ??? Aim for 48-64 oz hydrating fluid/day ??? Track intake ??? Have meals at 9am, 12pm, 5:30pm ??? Reviewed vitamin and mineral supplement recommendations. ??? Advised pt to purchase Bariatric Fusion Complete multivitamin, advised pt she does not need to start taking these yet ??? Follow-up in 1 wk, sooner if [...] psychologist to work on eating behaviors Health Offset Printing Operator is sending hand-outs with exercises for [...] training 3 times a week -can use [employer] Nutrition - 09/26/22 Lifestyle On track(2021 10:29 [...] as of this encounter Visit Diagnoses Diagnosis Nausea without vomiting S/P gastric bypass Bariatric surgery status Disorder of iron metabolism Other disorders of iron metabolism documented in this encounter Care Teams Vending Stand Supervisor Relationship Specialty Start Date End Date Sree High, BRYANNA [address] [place] [address] PCP - General Family Medicine 12/19/22 documented as of this encounter
--- OUTSIDE RECORDS SUMMARY | 2024-06-01 06:57 | XMS_ITS | Encounter Summary ---
Author Organization [facility] [place] [address] Care Team Providers Care Lodging Manager Name Role Phone LennoxKatemary Gonzalez APRN Primary Care Provider [phone]- [phone] Encounter Details Date Type Department Care Team (Late st Contact Info) Description 12/26/2022 1:00 PM EST Office Visit Auditorium C at [facility] [place] [address] Anita Aviles, BRYANNA [facility] [place] [address] Blaire Chowdhury, RD [facility] [place] [address] Adult BMI 40.0-44.9 kg/sq m; Encounter for pre-bariatric surgery counseling and education Social History Tobacco Use Types Packs/Day Years Used Date Smoking Tobacco: Never Smokeless Tobacco: Never Sex and Gender Information Value Date Recorded Sex Assigned at Female 10/05/2021 8:56 AM EST Gender Identity Not on file Sexual Orientation Straight 10/05/2021 8: 56 AM EST documented as of this encounter Patient Instructions * Patient Instructions* Anita Aviles APRN - 12/26/2022 1:[address] [facility] BARIATRIC SUPPORT TEAM CONTACT NUMBERS (Mon-Fri 8am - 5pm): General Surgery and Bariatric Surgery [phone] Bariatric Surgeons: Doctors. Sosa [phone] Rail Crew Member: [phone] Dietitians: [phone] Outside of regular business hours, including weekends and holidays: Ask for General Surgery resident tool liaison [phone] BEFORE YOUR SURGERY: Questions for your doctor, specialist or pharmacist: Ask your doctor about medication suggestions if you currently take medications that are larger than the size of a tylenol or calcium pill. Large pills need to be crushed (if permitted by the drug shoe dyer), taken in smaller size pills, or taken in liquid form for TWO WEEKS after surgery. If you take antinflammatory medications or steroid medications for arthritis or asthma, please check with your doctor. These medications will need to be held 1 week prior to and at least a few weeks after surgery. Oral contraceptive pills, post menopausal hormones, and male hormones should be stopped 1 month before and 1 month after surgery. If you have sleep apnea be sure to bring your CPAP/BiPAP with you to the hospital. Schedule a follow up appointment with your primary care provider 10-14 days after your surgery. Bring your handbook with you to the hospital AFTER YOUR SURGERY: GENERAL BARIATRIC SURGERY DISCHARGE INFORMATION (some information specific to health problems list below may not pertain to you) FOR EMERGENCIES: CALL 911 (trouble breathing, chest pain, rapid heart rate or severe abdominal pain) CALL THE BARIATRIC TEAM FOR ANY OF THE FOLLOWING: Signs and symptoms of infection such as: - Redness or swelling or new significant drainage from wounds - Drainage or bleeding from wounds - Fever over 101 degrees Fahrenheit, or shaking chills Persistent diarrhea or vomiting or inability to keep down food or fluids down in a 24 hour period. Signs / symptoms of a blood clot: leg swelling, redness, or pain Problems with urination or constipation, worsening abdominal pain not controlled with pain medication Any concerns you may have after your surgery Follow up Information: You will be given a surgical follow-up appointment with The Bariatric Surgery Team in 3-4 weeks at the [facility] Outpatient [facility] [place] [facility] BATHING AND WOUND CARE: You may shower 2 days after surgery Wash incisions with unscented mild soap Rinse, pat dry and leave open to air. Remove Steri-strips if they don't fall off by 7-10 days after discharge. Pat dry if they become wet. Do not soak wound (no baths, no swimming) for 3 weeks after surgery ACTIVITY, LIFTING AND DRIVING: For laparoscopic surgery: there are no lifting restrictions. Lift when you feel comfortable. Do not drive for 2 weeks. After [address] when comfortable and not taking narcotic pain medicine. DIET: Follow Stage II diet for two weeks. Keep a log of your intake: Daily goals are: 48-64 ounces of fluids and 60 grams of protein. MEDICATIONS: For 2 WEEKS: LARGE pills (bigger than the size of a calcium pill) must be crushed, Capsules must beopened onto applesauce or pudding. Pills smaller than the size of a calcium DO NOT need to be crushed. Not all medications can be crushed. Check with your pharmacist if unsure. HOLD bariatric vitamins for 2 weeks after surgery BLOOD CLOT PREVENTION: Be active, walk at least 4 times a day and do blood clot prevention exercises in your handbook on page 82. Some patients will be discharged on enoxaparin twice a day for 10 days to prevent blood clots, which is determined by the surgeon. IF YOU ARE TREATED FOR OBSTRUCTIVE SLEEP APNEA: IMPORTANT - you MUST use your CPAP/ BIPAP after surgery while sleeping at night and also when napping during the day because some medications you may have been prescribed at discharge can decrease your breathing. Follow up with the Sleep Center if pressure seems to be too high. ULCER PREVENTION: IMPORTANT - you must take acid suppressing medication such as pantoprazole, nexium or omeprazole for 3 MONTHS after surgery. This is taken to prevent ulcers at your surgical sites internally, even ifyou do not have heartburn. omeprazole 20 mg daily (or another medication you may currently take for heartburn/reflux that has been discussed with Bariatric Team) Omeprazole capsules contain enteric-coated, delayed-release granules. Because these granules shouldnot be chewed or crushed, you must OPEN the capsules, sprinkle the enteric-coated granules on applesauce or yogurt. Alternatively, you may take the granules with apple juice, or swallow them quickly with water. Follow any of these methods with additional water to ensure that you have swallowed the granules completely. If your insurer does not cover omeprazole, or similar medications such as pantoprazole, you must purchase these medications over the counter. Decrease the medication to every other day when you have 7 days left in your prescription. Continuethis after the initial 3 month course if you have heartburn or reflux If you have Myrick's esophagus, continue the medication fdc GALLSTONE PREVENTION: If you have had your gallbladder REMOVED - you do not need this medication. If you have your gallbladder after Bariatric Surgery - you must take start taking Ursodiol (Actigall) 300 mg twice a day to prevent gallstones. You may START this medication 2 weeks after surgery fora duration of 6 months. After that, you may stop this medication unless otherwise directed. PAIN MEDICATION: Your pain should lessen with each day out from surgery. Over the next couple of days you should be requiring less narcotic medication to control your pain, and eventually you will not need any at all. Take the medication exactly as it is prescribed and make sure to read all instructions that come with the medication. Take only as needed. You may adjunct your pain control using scheduled Tylenol (acetaminophen), use as directed. Do NOT use NSAIDS (ibuprofen, Motrin, Aleve, Toradol, aspirin, etc.) to adjunct your pain control. Opioids can slow reaction time, cause drowsiness or cloud judgement. You MUST NOT DRIVE while taking narcotic pain medication. Taking more than the prescribed amount of narcotic or combining with alcohol or drugs can cause youto stop breathing, leading to coma, brain damage or . Using this drug may cause addiction. While addiction is more common in people with a personal or family history of addiction, it can occur in anyone. Opioids are at risk of being diverted by anyone with access to your home. Opioids should be stored in a safe and secure place, such as a locked cabinet or safe. Unused opioids should be disposed of appropriately. They may be returned to a take-back location, or mixed with a small amount of water and poured over an undesirable waste such as used coffee grounds or cat litter. Opioid pain medications can cause significant constipation. You should use a stool softener such asMiralax to address this. OTHER MEANS FOR PAIN RELIEF: Other than medications. Learn deep breathing exercises or meditation to help you relax Reduce stress Your body produces natural endorphins from exercise which can help reduce pain. Even walking is considered exercise. Talk with your provider/surgical team about what exercises are appropriate for youto perform. You may use a heating pad or apply ice to the painful area unless specifically discouraged by the surgical team. Find ways to distract yourself from the pain. MEDICATIONS TO AVOID FOR TWO MONTHS AFTER SURGERY: Discontinue anti-inflammatory non-steroidal medications, such as Celebrex, Mobic, Advil (ibuprofen), Aleve (naprosyn), etc. Refer to Medications that may increase the risk of bleeding in handbook. If you do take aspirin for your heart or to prevent strokes, continue as prescribed. CONSTIPATION: Be sure you are meeting your fluid goals and moving/walking. Take 1 capful of miralaxdaily (preferably at night) with a goal of [...] daily but continue to take miralax every day. WOMEN OF CHILDBEARING AGE: Fertility may increase with weight loss. Avoid for 18-24 months after bariatric surgery. Condoms alone are not acceptable as a form of control. Do not take control pills for the first month after surgery. MANAGEMENT OF DIABETES MELLITUS AFTER BARIATRIC SURGERY: IMPORTANT to check blood sugars four times a day, fasting blood sugars, 2 hours after meals and as needed when feeling unwell. If the Diabetes Team saw you during your hospital stay, they have listed specific recommendations elsewhere in your discharge paperwork. Please refer to their specific diabetes care recommendations. Patients on oral diabetic medication: If blood sugar is over 200 on more than 3 checks, call your primary care physician or diabetic specialist for recommendations. For patients on insulin and oral diabetic medications: If blood sugar is over 200 on 3 checks, call your primary care doctor or diabetic specialist for recommendations. Follow up with primary care provider or drilling field specialist in 1-2 weeks in order to adjust your changing diabetes treatment requirements. PATIENTS WITH HIGH BLOOD PRESSURE: Monitor your blood pressure regularly. If you feel dizzy and have been drinking 48-64 ounces of fluid, have your blood pressure checked. If your blood pressure is low, call your primary care provider. Keep a log to bring to your PCP appointments. PATIENTS WHO TAKE DIURETICS (WATER PILLS) such as furosemide, HCTZ (hydrochlorothiazide), spironolactone: Check with your surgical team prior to discharge for instructions. In general, this medication is stopped after surgery, as you are at risk for dehydration after Bariatric Surgery. Monitor yourself for any swelling of legs or gain of water weight after medication is stopped. Call your primary care doctor if you notice this. PATIENTS ON ANTI-DEPRESSANT OR MENTAL HEALTH MEDICATIONS: Do not stop or decrease your medications unless advised. Ongoing counseling is encouraged. Some patients notice a change in their mood early after surgery, if you are having difficulty coping with the lifestyle or dietary changes associated with surgery please follow up with your primary care provider or your mental health provider. Important to have non-food related ways to cope with stress. VITAMIN AND MINERAL SUPPLEMENTATION: START at 2 weeks post surgery Vitamin B12 500 mcg pill daily Complete multivitamin w/ minerals One pill twice daily. If a bariatric specific multivitamin, follow the package directions Calcium Calcium citrate 600 mg with vitamin D 400 units twice a day between meals. Iron with vitamin C Take iron as instructed per Handbook - (only if you have anemia, iron deficiency or regular menses) FOLLOW-UP CARE: It is IMPORTANT to see your Primary Care Physician or PCP within 10-14 days after surgery for woundcheck and vital signs check, and to discuss specific medical management as referenced above. You should follow up with your surgeon or bariatric nurse practitioner and dietitian at 3-4 weeks after surgery. You will follow up with the dietitian and Bariatric nurse practitioner at 4, 12 months, then yearlyfor life. Vitamins and supplements are required for life. Pre-op Class Nutrition Outline PRE-OP DIET Important to follow pre-op diet for full 2 weeks before surgery to shrink the liver and make it more pliable for the surgeons. Your Goals: 800-1000 Calories 80-100 grams Carbohydrates 60-80 grams Protein (men or people with a BMI over 50 should aim for 80 grams per day) 48-64 ounces of Hydrating Fluid Log intake before your meal. Try to log a day of meals in advance. HYDRATING FLUIDS AVOID soda, alcohol, caffeine, and juice or other sweetened beverages Wait 30 minutes before and after meals to drink fluids Stay hydrated to prevent dehydration, constipation, and kidney stones DIET STAGES Stay on the Stage 2 diet for 2 full weeks to allow the stomach to heal safely, decrease risk of blockage or intolerance, and to help with early weight loss. VITAMINS AND MINERALS FOR LIFE Start vitamins and minerals 2 weeks after surgery MVM- one taken twice per day Calcium Citrate- 7249-5133 mg daily total, 500-600 mg taken two-three times per day B-12- 500 mcg daily (sublingual or oral) Iron 50-66 mg daily if anemic or still having menstrual cycles. (Space 2 hours apart from Calcium.) Take bariatric supplements as directed on the label PROTEIN SUPPLEMENTS At least 20 g protein per serving (1 scoop or ???[id number]?? ) Under 200 calories for ???cptbo-tt-heuty?? Under 100 calories per scoop for powder Under 5 g sugar (under 10 g total carb) Whey or soy based VOMITING/ DUMPING SYNDROME/FOOD INTOLERANCE Causes of vomiting: eating too fast or too much, improper chewing, drinking with meals, and eating foods you do not tolerate Dumping Syndrome: Caused when excess carbs or fats are dumped into the small intestine and it has trouble managing the excess Late Phase Dumping: Can occur 2-4 hours after meal, high carbohydrate load in the intestine increases blood sugar and insulin release. Excess insulin takes out too much blood sugar and causes low blood sugar. Treat with the 15/15 rule. Food Intolerance: Caused when the stomach pouch is having trouble digesting foods. TRACKING FOOD AND FLUID INTAKE Very important! Helps to ensure you are meeting your daily goals and taking required supplementation. Helps you to determine which foods you may not tolerate or cause dumping syndrome. CAUSES OF WEIGHT REGAIN It is not uncommon to have a little weight rebound a couple of years out from surgery Not enough protein, fluid or physical activity Emotional eating Grazing/ snacking on high carb, low nutrient foods Lack of personal responsibility for staying on track and in control TIPS FOR SUCCES DORITA KEVIN, DORITA!!! Add one new food at a time Eat VERY slowly Drink between meals Measure food & beverages Stay mindful, listen to your body Pay attention to your hunger Plan your meals & snacks, shop with a list Survival Tips for the First Month after Surgery Keep it simple. Focus on the positives in your life. Everything will get easier with time. MEDICATION INFORMATION: All bariatric surgery prescriptions, including narcotics and enoxaparin (if needed), will be provided during your inpatient stay. The prescription is typically sent to the [facility] at discharge. Take the medication to prevent ulcer (omeprazole or similar medications) for 3 full months, even ifyou do not have heartburn. START at discharge. You can discontinue after 3 months as long as you are not having any heartburn or reflux. Take ursodiol (Actigall) for 6 full months to prevent gallstones (if you have a gallbladder). STARTat 2 weeks after surgery. Supplements for LIFE: START at 2 weeks after surgery. Take chewable multivitamin with minerals and iron twice a day, vitamin B12 500 mcg daily and calcium citrate 500-600 mg with vitamin D 400 IU twice a day. If you take a bariatric specific multivitamin, follow directions on bottle. Iron with vitamin C should be taken only if you have anemia, iron deficiency or regular periods. If you take medications for depression and/or anxiety, stay on these medications for at least 6 months after surgery. Do not attempt to taper without medical supervision. Counseling is recommended. Avoid narcotic pain medication if possible. Narcotics, such as oxycodone, may cause nausea, constipation and strange dreams. Try acetaminophen (Tylenol) instead. A heating pad/hot water bottle can also provide pain relief. NUTRITION TIPS: You will feel full very quickly with very small amounts of food. This is NORMAL. You are unlikely to feel hungry- this is also normal. Foods may taste different than prior to surgery. You must eat 3 meals a day, despite a lack of hunger. Journal your intake every day so that you know how much protein and fluids you are getting. Add a snack or two if needed to get closer to the goal of 60 grams of protein a day. Reaching goalswill be difficult to achieve in the first month or two after surgery. Make sure to sip rather than gulp water throughout the day (within the 30-30-30 rule). Carry a water bottle everywhere you go. The stage 2 diet must be followed for 14 days. It is BORING, but follow it anyway. It will help your stomach heal faster. Advancing the diet can make you sick. Weight: plateaus are normal, even early after surgery. Don't be discouraged. Avoid weighing yourself daily. You will likely gain some weight in the hospital due to intravenous fluids. Bowels: You may have loose bowels after surgery or be constipated. If you have not had a BM within 2 days, take [place]-Lax or milk of magnesia. Increasing water intake and walking is helpful. Call if no BM after 3 days. Activity: Be active, walking at least 4 times a day to prevent blood clots. After surgery, it is normal to feel tired. Take a nap if you feel tired. Some patients find sleeping in a recliner more comfortable early post-surgery. [facility] [place]-Bariatric Surgery Events Calendar Date Time period Activity Comments Day of discharge Start medication to prevent ulcer such as omeprazole. Don't take meds that can cause ulcers such as Advil, Excedrin, Aleve etc for at least 2 months If you took heartburn medication such as Nexium or Prevacid prior to surgery you can take it instead of omeprazole. The prescription is sent at discharge, but is available over the counter. Stay on stage 2 diet for 2 full weeks If ordered, start injections (enoxaparin) Inject twice a day for 10 days to prevent blood clots. paste up worker prescription at [facility] 2 weeks post surgery If you have a gallbladder, start Ursodiol . Take for 6 months to prevent gallstones This prescription is sent at discharge. Call the pharmacy to check farley first, if >$200, call us to rewrite prescription via [facility] Start stage 3 diet Start vitamins and supplements Visit with PCP to check your overall health, including blood pressure, diabetes, mental health, etc. If you have diabetes or take lots of blood pressure medications and/ or fluid pills, see your PCP at 1 week post-op 3 weeks: visits with surgeon or AIRCRAFT CAPTAIN and dietitian Bring diet logs and complete list of medications, vitamins/supplements including dose and type (or take photos) 4 weeks Start stage 4 diet This is your meal plan for life 3 months Stop ulcer prevention medication. Taper the doses to every other day for a week prior to ending the prescription If you have heartburn, call your PCP for refill also available over the counter. Do not taper medication if you have Myrick's esophagus 4 months: Visits with RD /AIRCRAFT CAPTAIN Bring complete list of medications and supplements including dose and type (or take photos) Have lab work done before your appointment. Bring copies of any labwork that may have been done by your PCP 6.5 months Stop Ursodiol. No refills are needed. 12 month visits with RD/AIRCRAFT CAPTAIN Bring complete list of medications and supplements including dose and type (or take photos) Have lab work done before your appointment. Bring copies of any labwork that may have been done by your PCP* 2 years and yearly for life visits with RD/AIRCRAFT CAPTAIN Bring complete list of medications and supplements including dose and type (or take photos) Have lab work done before your appointment. Bring copies of any labwork that may have been done by your PCP Abbreviations: RD: registered dietitian. AIRCRAFT CAPTAIN: nurse practitioner documented in this encounter Progress Notes * Anita Aviles APRN - 12/26/2022 1:00 PM EST BARIATRIC SURGERY PROGRAM [place], [place] [address] Reason for visit: [facility] for up coming bariatric surgery Leandra attended a comprehensive group pre-operative class today, which included discussion of pre and post operative instructions included in the [facility] [place] Education Handbook. The nutrition component of the class was taught by the BSP RD. Patient completed health update form. Pt reminded to stop NSAIDs and reviewed risk of NSAIDs postopbariatric surgery. No new medical issues/ED visit. Medications/allergies are reviewed, otherwise today's visit was group visit. Surgery info: Patient is scheduled for laparoscopic Saúl-en-Y gastric bypass on 01/10/[address] Borrero. Pre-Bariatric Surgery Obesity related medical issues: ?? Problem Baseline issue if checked Comments Diabetes/prediabetes/insulin resistance []? ?? Metabolic syndrome or PCOS []? ?? HTN []? Taking propranolol for headaches GERD [x]? No Rx, symptoms 1x/month or less, no tx Hyperlipidemia []? ?? CHUN [x]? Mild CHUN (AHI 7, Minimum O2 92%), CPAP sporadically, CBT-I group recommended by Sleep Medicine Musculoskeletal issues [x]? OA (back) Liver Disease []? ?? Other [x]? IBS-D (episodes once a week), usually every day ?? Post Bariatric Surgery Medications: Extended VTE prophylaxis post surgery Not indicated. Ursodiol gallstone prophylaxis Not indicated, s/p cholecystectomy. PPI ulcer prophylaxis Indicated, to be prescribed at discharge. Contraception s/p hysterectomy WT (lbs) BMI HT Highest wt Initial Pre-op visit 10/09/22 228.8 39.3 64 237 1/31/23 238 40.8 Post-op WT (lbs) BMI %EBW lost Preop labs:labs completed. Vit D low ~ 21 Prescriptions provided at today's visit: none Bariatric Surgery Program Pathway and review of status with the requirements of the Bariatric Surgery Program 1. Education: Pt previously attended a Introduction to the [facility] seminar,a two hour meeting that provides a program overview as well as expectations. The [facility] B[facility] Educational seminar requirement has been met. The [facility] Educational Handbook was providedat visit #1. 2. Pre-operative programmatic evaluations have been done, as noted in previous pathway review. 3. Bariatric Surgery Program evaluations with the surgeon and dietitian have taken place. Leandra has been approved to proceed with surgery by surgeon. 6. Surgical consultation has taken place Next steps in pathway: ?? During hospitalization for bariatric surgery, a standard bariatric surgery order set is followed. ?? Routine post-operative follow up with labwork is done at months 1,4,12 and 24, yearly thereafter, and PRN. High risk patients are followed more frequently. Some of the topics reviewed during group discussion today included: ?? day of surgery and post-op routine care/ locations: Admissions/SDP/PACU///2 [place] units ?? medications that increase the risk of bleeding including NSAIDs and anticoagulants to be avoidedper guidelines pre and post-operatively ?? DVT/VTE prevention and signs of DVT/PE. ?? Inpatient management for VTE prevention: venodynes, ambulation, Enoxaparin 40 units BID during inpatient stay. ?? Indications for extended Enoxaparin 10 days post discharge: A. patients with BMI >60 or prior VTE OR B. 2 or more of the following: age >50, BMI >50, male gender, sleep apnea, varicose veins, venous insufficiency, history of oral contraceptive or hormone or post-menopausal hormone replacement use within 30 days of surgery, and recent smoking ?? guidelines for patients treated with oral anticoagulants per [facility] ?? diabetes and hypertension monitoring during pre-op diet and post-operatively. Diuretic therapy is held to avoid risk of dehydration unless patient is symptomatic. ?? signs and symptoms of infection as well as emergency signs and symptoms were reviewed ?? common post-operative complaints ?? management of sleep apnea during hospitalization and post operatively. The importance of post-operative follow-up with [facility] after weight loss was stressed. ?? recommendations for psychiatric medications: should continue uninterrupted after surgery ?? activity post surgery/ return to work recommendations ?? routine BSP post-operative follow-up: 3 weeks. 4 months, 12 months and yearly for LIFE ?? routine Primary Care post-operative follow up: at 10-14 days after surgery to monitor chronic health problems such as diabetes and hypertension, since the requirement for antihypertensive and diabetic medications may decrease or be discontinued Patient advised to contact our office if they develop COVID sx or test positive for COVID. Discussed increased risk of respiratory complications s/p COVID infection. A preliminary copy of the discharge instructions was provided, which is also available in the patient handbook. Leandra was given the opportunity to ask questions, and all questions were answered. Time spent in counselin minutes * Blaire Chowdhury RD - 12/26/2022 1:00 PM EST BARIATRIC SURGERY PROGRAM NUTRITION EDUCATION 2nd Pre-Operative Visit Shared Medical Appointment Leandra Wilks attended a 2 hour shared medical appointment today with the bariatric surgery program dietitian and nurse practitioner. Ms. Wilks is a female with morbid obesity who has been referred for nutrition evaluation and diet instruction in anticipation of bariatric surgery. Previous conservative attempts at weight loss through dieting have been unsuccessful over the fdc. Advised patient that bariatric surgery is a weight loss tool not a solution; and ultimately weight loss will be achieved through proper eating and exercise habits. Patient was given a copy of the program handbook at the initial appointment which includes specific information on all nutrition recommendations and guidelines. Pt instructed on importance of following the Pre-operative Surgical Diet. Failure to do so may result in poor pre-surgical weight loss and may result in surgery not being performed. Leandra was given the opportunity to ask questions and all questions were answered. She was also given contact information for further nutrition questions. Nutrition Topics Covered at Today's Appointment: ?? Pre-operative Surgical Diet ?? Purpose of diet ?? Appropriate foods ?? Protein goals ?? Carbohydrate goals ?? Calorie goals ?? Keeping a food log ?? Hydration and Appropriate Beverages ?? Post-Operative Diets (Stages I-IV) ?? Importance of following diet stages ?? Appropriate foods ?? Sample Menus ?? Vitamin/Mineral Supplementation ?? Common Food Intolerances ?? Dumping Syndrome ?? Sugar Alcohols ?? Physical Activity ?? Weight Regain ?? Habits of Successful Bariatric Surgery Patients The appointment consisted of 60 minutes of group education and counseling. documented in this encounter Plan of Treatment [...] psychologist to work on eating behaviors Health Patrol Commander is sending hand-outs with exercises for mindful [...] as of this encounter Visit Diagnoses Diagnosis Adult BMI 40.0-44.9 kg/sq m Body Mass Index 40.0-44.9, adult Encounter for pre-bariatric surgery counseling and education documented in this encounter Care Teams Lodging Manager Relationship Specialty Start Date End Date Sree High APRN [address] [place] [address] [address] [facility] [address] [place] [address] PCP - General Family Medicine 12/19/22 documented as of this encounter
--- OUTSIDE RECORDS SUMMARY | 2024-06-01 06:57 | XMS_ITS | Encounter Summary ---
Author Organization [facility] Address [facility] [place] [address] Care Team Providers Care Museum Preparator Name Role Phone Sree High APRN Primary Care Provider [phone] Reason for Visit * Auth/Cert (Routine) Specialty Diagnoses / Procedures Referred By Contangelo t Referred To Contact Diagnoses Morbid (severe) obesity due to excess calories Morbid Obesity Procedures PRO LAP GASTRIC BYPASS/RENATO-EN-Y PRO UPPER GI ENDOSCOPY, DIAGNOSTIC @LAPAROSCOPIC GASTROPLASTY W/ RENATO-EN-Y CONSTRUCTION (WRVU 29.4) EGD, UPPER GI ENDOSCOPY Iram Lee MD [facility] [place] [address] [facility] Referral ID Status Reason Start Date Expiration Date Visits Re quested Visits Authorized [id number] 1 1 Encounter Details Date Type Department Care Team (Latest Contact Info) Description 01/10/2023 10:39 AM EST - 01/13/2023 3:30 PM [facility] Hospital Encounter Surgical Unit Level 4 [place] [address] Iram Lee MD [facility] [place] [address] Class 3 severe obesity with body mass index (BMI) of 40.0 to 44.9 in adult, unspecified obesity type, unspecified whether serious comorbidity present Discharge Disposition: Home Social History Tobacco Use [...] Sign Reading Time Taken Comments Blood Pressure 120/74 01/13/2023 12:19 PM EST Pulse 82 01/10/2023 9:50 PM EST Temperature 36.6 ??C (97.9 ??F) 01/13/2023 12:[address] Respiratory Rate 16 01/13/2023 4:38 AM EST Oxygen Saturation 96% 01/13/2023 12:19 PM EST Inhaled Oxygen Concentration - - Weight - - Height 162.6 cm (5' 4) 01/10/2023 12:15 PM EST Body Mass Index - - documented in this encounter Discharge Summaries * Raul Ho MD - 01/13/2023 12:33 PM EST Images from the original note were not included. Bariatric Surgery Discharge Summary Patient Name: Leandra Wilks Patient Age: 42 y.o. : 1980 Attending Physician: Iram Lee MD Date of Admission: 01/10/2023 Date of Discharge: 01/13/2023 Primary Diagnosis: Morbid Obesity Secondary Diagnosis: Patient Active Problem List Diagnosis [...] ? Severe obesity (BMI >= 40) E66.01 Operations and Procedures: Procedure(s): @LAPAROSCOPIC GASTROPLASTY W/ RENATO-EN-Y CONSTRUCTION (WRVU 29.4) EGD, UPPER GI ENDOSCOPY Surgeons: Surgeon(s) and Role: * Iram Lee MD - Primary * Natalee Winn MD - Fellow - Assisting * Katherin Kerns MD - Resident History of Present Illness: Leandra Wilks is a 42 y.o. female who has been through our BariatricSurgery Program and has been found eligible for obesity surgery based on NIH criteria. She has gonethrough the required number of support group meetings and is very familiar with the procedure and also the risks and benefits. Her pre-operative Bbody mass index is 40.85 kg/m?? with related comorbidities of GERD, mild CHUN (no longer on CPAP). She presents for bariatric surgery. Hospital Course: Leandra Wilks is a 42 y.o. female who was admitted on 01/10/2023 postoperativelyafter a Laparoscopic Renato en Y Gastric Bypass. Operative course was uneventful, please see operative note for further detail. On POD#1 her diet was advanced from stage 1 to stage 2, which was tolerated well although her PO intake that day was not sufficient to maintain hydration without IV fluids. This improved by POD#2 and at the time of discharge her PO intake was sufficient to maintain hydration.\She received subcutaneous Lovenox for DVT prophylaxis as well as Tylenol, Celebrex, oxycodone and IV Dilaudid for pain control. she was changed to oral pain medications and IV analgesics were disco ntinued on POD#1. She experienced acute post-op urinary retention on POD#0 and 1, requiring two straight catheterizations. This resolved by midday on POD#1, and she was then voiding without difficulty for the remainder of her admission. She continued to have issues with nausea and pain control. On the morning of POD 2, she was ambulating more regularly but continued to have some nausea and inadequate PO intake. She was observed further and given continued supportive care. By POD3, her nausea and oral intake had significantly improved. She was counseled on her oral intake goals while at home. Prior to discharge on 01/13/23 or hospital day 3, patient's pain was well controlled with oral painmedications, patient was voiding without difficulty, and incisions were intact and healing appropriately. Patient was tolerating a Gastric Bypass diet Stage II-Full with adequate PO intake. Vitals were within normal limits and patient was determined medically ready for discharge to home. Vital Signs Last value Range last 24hrs Temperature Temp: 36.6 ??C (97.9 ??F) Temp: [36.4 ??C (97.5 ??F)-36.7 ??C (98.1 ??F)] Heart Rate Heart Rate: 82 Heart Rate: -- Blood Pressure BP: 120/74 BP: (103-121)/(57-74) Respiratory Rate Resp: 16 Resp: [16] SpO2 SpO2: 96 % SpO2: [93 %-96 %] Pertinent Lab Data: Recent Labs 01/12/23 0637 01/11/23 0700 01/11/23 0030 WBC 9.4 12.9* 13.7* HGB 11.1* 11.5* 11.9 HCT 31.7* 34.3* 35.1* PLATELET 293 345 334 Recent Labs 01/12/23 0637 01/11/23 0030 NA 139 134* K 3.3* 4.1 CL 104 100 CO2 27 22 BUN 6* 13 CREATININE 0.64* 0.75 GLUCOSE 134 203* CALCIUM 8.4* 8.7 MAGNESIUM -- 0.74 PHOS -- 3.1 Physical Exam: General: awake, alert, no acute distress HEENT: atraumatic, normocephalic CVS: RRR on monitor, HR in 80s Pulm: unlabored breathing on room air Abd: soft, appropriately tender around periumbilical port site, non-distended, incisions clean/dry/intact : no amaya Skin: warm, dry Ext: warm, well perfused, no jaundice, no cyanosis, no edema Neuro: CN 2-12 grossly intact, nonfocal, moving all four extremities spontaneously Condition at discharge: Stable Mental Status: awake and alert, oriented x 3 Medications: Your Medications New Medications Dose Details docusate sodium 100 mg Cap Commonly known as: Colace Take 1 capsule by mouth 2 times daily as needed for Constipation. 100 mg Refills: 0 omeprazole 40 mg Cpdr Commonly known as: PriLOSEC Take 1 capsule by mouth daily for 90 days. 40 mg Quantity: 90 capsule Refills: 0 ondansetron ODT 4 mg Tbdl Commonly known as: Zofran-ODT Take 1 tablet by mouth every 8 hours as needed for Nausea. 4 mg Quantity: 20 tablet Refills: 0 oxyCODONE 5 mg/5 mL Soln Commonly known as: Roxicodone Take 5 mLs by mouth every 6 hours as needed for Pain. 5 mg Quantity: 60 mL Refills: 0 polyethylene glycoL 17 gram/dose Powd Commonly known as: Miralax Take 17 g by mouth daily. 17 g Refills: 0 Continued medications with new dosing Dose Details * acetaminophen 650 mg Tbsr Commonly known as: TYLENOL Take 650 mg by mouth every 8 hours as needed. What changed: Another medication with the same name was added. Make sure you understand how and when to take each. 650 mg Refills: 0 * acetaminophen 650 mg/20.3 mL Soln Commonly known as: Tylenol Take 20.3 mLs by mouth every 6 hours as needed. What changed: You were already taking a medication with the same name, and this prescription was added. Make sure you understand how and when to take each. 650 mg Refills: 0 * This list has 2 medication(s) that are the same as other medications prescribed for you. Read thedirections carefully, and ask your doctor or other care provider to review them with you. Continued medications, unchanged Dose Details cyclobenzaprine 5 mg Tab Commonly known as: Flexeril TAKE ONE TABLET BY MOUTH THREE TIMES A DAY NEEDED FOR BACK PAIN Refills: 0 Emgality Pen 120 mg/mL Pnij every 30 days. Generic drug: galcanezumab-gnlm Refills: 0 FLUoxetine 20 mg Cap Commonly known as: PROzac Take 20 mg by mouth Daily. 20 mg Refills: 0 lamoTRIgine 150 mg Tab Commonly known as: LaMICtal TAKE ONE TABLET BY MOUTH TWICE A DAY Refills: 0 latanoprost 0.005 % Drop Commonly known as: Xalatan INSTILL 1 DROP IN EACH EYE AT BEDTIME DIRECTED Refills: 3 oxybutynin 15 mg Tr24 Commonly known as: DITROPAN XL 15 mg daily. 15 mg Refills: 0 ProAir HFA 90 mcg/actuation Hfaa INHALE 1 TO 2 PUFFS FOUR TIMES A DAY NEEDED WHEN COUGHING AND BEFORE EXERCISE Generic drug: albuteroL Refills: 2 propranoloL 20 mg Tab Commonly known as: Inderal TAKE ONE TABLET BY MOUTH TWICE A DAY Refills: 0 Disposition: Home Allergies: No Known Allergies Outpatient Services/Studies: No discharge procedures on file. Scheduled Appointments: Future Appointments and Orders Future Appointments and Orders Future Appointments Provider Department Dept Phone 01/30/2023 9:[address]; Anita Aviles APRN General Surgery at [facility] Arrive at: [place] [facility] [phone] 04/26/2023 9:[address]; Anita Aviles APRN General Surgery at [facility] Arrive at: [place] [facility] [phone] Instructions Given to Patient at Discharge: Patient Instructions Discharge Instructions - Bariatric Surgery NEW PRESCRIPTIONS: ??? bonding supervisor at [facility] today: ondansetron (Zofran), omeprazole (Prilosec), liquid oxycodone, Tylenol regular strength tablets OR liquid, Miralax, Colace HOME MEDICATION PLAN: ??? No changes, take whole: cyclobenzaprine (Flexeril), oxybutynin (Ditropan XL), propranolol (Inderal) ??? Changes: o Ok to open/cut in half/crush for 2 weeks: fluoxetine (Prozac), lamotrigine (Lamictal) MEDICATIONS: ? ? For 2 WEEKS: LARGE pills (bigger than the size of a Skittle or M&M) must be crushed. Large capsules must be opened and put in applesauce or pudding. Please use the size template below to measure your pills. ??? Pills that are the same size or smaller than the template below do not need to be crushed/opened ??? Not all medications can be crushed. Check with your pharmacist if unsure. ??? HOLD bariatric vitamins for 2 weeks after surgery (unless you have one that is chewable or liquid). Size Template: BARIATRIC SUPPORT TEAM CONTACT NUMBERS (Mon-Fri 8am - 5pm): General Surgery and Bariatric Surgery [phone] Bariatric Surgeons: Adair Cherry, Cristino [phone] Element Burner: [phone] Dietitians: [phone] Outside of regular business hours, including weekends and holidays: Ask for General Surgery resident telephony engineer [phone] Please note, this call will be answered by a resident, and they may not be able to return your call for several hours FOR EMERGENCIES: CALL 911 (trouble breathing, chest pain, rapid heart rate >120 beats per minuteor severe abdominal pain) CALL THE BARIATRIC TEAM FOR ANY OF THE FOLLOWING: ??? Signs and symptoms of infection such as: - Redness or swelling or new significant drainage from wounds - Drainage or bleeding from wounds - Fever over 101 degrees Fahrenheit, or shaking chills ??? Persistent diarrhea or vomiting or inability to keep down food or fluids in a 24 hour period ??? Signs / symptoms of a blood clot: leg swelling, redness, pain, shortness of breath ??? Problems with urination or constipation, worsening abdominal pain not controlled with pain medication ??? Any concerns you may have after your surgery Follow up Information: You have a surgical follow up appointment with The Bariatric Surgery Team [facility] ([place] [address], [facility]). Future Appointments Date Time Provider Department Center 01/30/2023 9:30 AM Anita Aviles APRN [facility] SURG [facility] 04/26/2023 9:30 AM Anita Aviles APRN [facility] SURG [facility]OUND [facility] ??? You have steri-strips and Band-Aids over your incisions. You may remove Band-Aids in 48 hours and then shower. o Leave the steri-strips (little pieces of skin tape) across the incision and allow them to peel off on their own. If they are still there in 10 days, you may remove them. ??? When you shower, let soap and water run over incisions without scrubbing. Pat dry gently. ??? Some bruising around your incisions is normal. ??? Using ice packs will help minimize this swelling. ??? No swimming or soaking in water (ie. hot tubs or baths) for two weeks. ??? Your stitches will dissolve and do not need to be removed. ACTIVITY, LIFTING AND DRIVING: ??? For laparoscopic surgery, there are no lifting restrictions. Lift when you feel comfortable to do so. ??? Do not drive if you are taking narcotic pain medication. When you are no longer taking narcoticpain medication and when it no longer causes pain to get in and out of the vehicle, you may drive when comfortable. DIET: ??? Follow Stage II diet for two weeks. ??? Keep a log of your intake, both for reminders to drink/eat, and to ask questions at your followup. ??? Daily goals are: 48-64 ounces of fluids (at least two of the bottles given to you in the hospital) and 60 grams of protein. CONSTIPATION: ??? Your goal is at least 1 BM per day. ??? Be sure you are meeting your fluid goals and moving/walking. ??? Take 1 capful of Miralax daily (preferably at night) o You can increase the dose as needed every 2-3 days (by adding on 1 capful either morning or night) without safety concerns, noting that individual tolerance becomes limited by loose stools and bloating with doses higher than 2 capfuls twice daily. ??? Please call or send a Wayin message if you do not have a BM after 3 days. ??? On days with loose stools, we recommend reducing Miralax to 1/2 capful daily, but continue to take Miralax every day. ??? If you continue to be constipated after taking Miralax for 1-2 days after surgery, you may add in the following over the counter medication: o Take one 100 mg capsule of Colace every day, up to twice daily. BLOOD CLOT PREVENTION: ??? You DO NOT meet scoring criteria to be discharged on medication to prevent blood clots. Be active, walk at least 4 times a day and do blood clot prevention exercises in your handbook on page 82. IF YOU ARE TREATED FOR OBSTRUCTIVE SLEEP APNEA: ??? IMPORTANT - you MUST use your CPAP/ BIPAP after surgery while sleeping at night and also when napping during the day because some medications you may have been prescribed at discharge can decrease your breathing. ??? Follow up with the Sleep Center if pressure seems to be too high. ULCER PREVENTION: ??? IMPORTANT - starting the day after discharge, you must take acid suppressing medication for 3 MONTHS after surgery. This is taken to prevent ulcers at your surgical sites internally, even if you do not have heartburn. ??? You will start taking Omeprazole 40 mg daily. ??? Omeprazole capsules contain enteric-coated, delayed-release granules. It is ok to swallow this capsule, but if you choose, you can OPEN the capsules, sprinkle the enteric-coated granules on applesauce or yogurt. Alternatively, you may take the granules with apple juice, or swallow them quickly with water. Follow any of these methods with additional water to ensure that you have swallowed the granules completely. ??? If your insurer does not cover omeprazole, or similar medications such as pantoprazole, you must purchase these medications over the counter. ??? You will continue this after the initial 3 month course if you have heartburn or reflux GALLSTONE PREVENTION: ??? If you have had your gallbladder REMOVED - you do not need this medication. PATIENTS WITH HIGH BLOOD PRESSURE: ??? Monitor your blood pressure regularly. ??? If you feel dizzy and have been drinking 48-64 ounces of fluid, have your blood pressure checked. ??? If your blood pressure is low, call your primary care provider. Keep a log to bring to your PCPappointments. PATIENTS WHO TAKE DIURETICS (WATER PILLS): ??? Check with your surgical team prior to discharge for instructions. In general, this medication is stopped after surgery, as you are at risk for dehydration after Bariatric Surgery. ??? Monitor yourself for any swelling of legs or gain of water weight after medication is stopped. Call your primary care doctor if you notice this. PATIENTS ON ANTI-DEPRESSANT OR MENTAL HEALTH MEDICATIONS: ??? Do not stop or decrease your medications unless advised. ??? Ongoing counseling is encouraged. PAIN MEDICATION: ??? Your pain should lessen with each day out from surgery. Over the next couple of days you shouldbe requiring less narcotic medication to control your pain, and eventually you will not need any atall. ??? Take the medication exactly as it is prescribed and make sure to read all instructions that come with the medication. Take only as needed. ??? You may adjunct your pain control using scheduled Tylenol (acetaminophen), use as directed. Do NOT use NSAIDS (ibuprofen, Motrin, Aleve, aspirin, naproxen, etc.) to adjunct your pain control. ??? Opioids can slow reaction time, cause drowsiness or cloud judgement. You MUST NOT DRIVE while taking narcotic pain medication. ??? Taking more than the prescribed amount of narcotic or combining with alcohol or drugs can causeyou to stop breathing, leading to coma, brain damage or . ??? Using this drug may cause addiction. While addiction is more common in people with a personal or family history of addiction, it can occur in anyone. ??? Opioids are at risk of being diverted by anyone with access to your home. Opioids should be stored in a safe and secure place, such as a locked cabinet or safe. ??? Unused opioids should be disposed of appropriately. They may be returned to a take-back location, or mixed with a small amount of water and poured over an undesirable waste such as used coffee grounds or cat litter. ??? Opioid pain medications can cause significant constipation. You should use a stool softener such as Miralax to address this. OTHER MEANS FOR PAIN RELIEF: ??? Learn deep breathing exercises or meditation to help you relax ??? Reduce stress ??? Your body produces natural endorphins from exercise which can help reduce pain. Even walking isconsidered exercise. Talk with your provider/surgical team about what exercises are appropriate foryou to perform. ??? You may use a heating pad or apply ice to the painful area unless specifically discouraged by the surgical team. ??? Find ways to distract yourself from the pain. MEDICATIONS TO AVOID FOR TWO MONTHS AFTER SURGERY: ??? Discontinue anti-inflammatory non-steroidal medications, such as Advil, Aleve, ibuprofen, naproxen, etc. Refer to Medications that may increase the risk of bleeding in your handbook. ??? If you do take aspirin for your heart or to prevent strokes, continue as prescribed. WOMEN OF CHILDBEARING AGE: ??? Fertility may increase with weight loss. Avoid for 18-24 months after bariatric surgery. ??? Condoms alone are not acceptable as a form of control. Do not take control pills for the first month after surgery. MANAGEMENT OF DIABETES MELLITUS AFTER BARIATRIC SURGERY: ??? IMPORTANT to check blood sugars four times a day, fasting blood sugars, 2 hours after meals andas needed when feeling unwell. ??? If the Diabetes Team saw you during your hospital stay, they have listed specific recommendations elsewhere in your discharge paperwork. Please refer to their specific diabetes care recommendations. ??? Patients on oral diabetic medication: If blood sugar is over 200 on more than 3 checks, call your primary care physician or diabetic specialist for recommendations. For patients on insulin and oral diabetic medications: If blood sugar is over 200 on 3 checks, call your primary care doctor or diabetic specialist for recommendations. ??? Follow up with primary care provider or geological specialist in 1-2 weeks in order to adjust your changing diabetes treatment requirements. VITAMIN AND MINERAL SUPPLEMENTATION: START at 2 [...] iron deficiency or regular menses) FOLLOW-UP CARE: ??? It is IMPORTANT to see your Primary Care Physician or PCP within 10-14 days after surgery for wound check and vital signs check, and to discuss specific medical management as referenced above. ??? You should follow up with your surgeon and dietitian at 3-4 weeks after surgery. ??? You will follow up with the dietitian and Bariatric nurse practitioner at 4, 12, 18, and 24 months, then yearly for life. General Instructions None Future Appointments and Orders Future Appointments and Orders Future Appointments Provider Department Dept Phone 01/30/2023 9:[address]; Anita Aviles APRN General Surgery at [facility] Arrive at: [place] [facility] [phone] 04/26/2023 9:[address]; Anita Aviles APRN General Surgery at [facility] Arrive at: [place] [facility] [phone] Signed: Raul Ho MD [facility] Physician: Sree High APRN [address] [facility] [id number] documented in this encounter Discharge Instructions * Patient Instructions* Natalee Winn MD - 01/11/2023 9:11 AM EST Images from the original note were not included. Discharge Instructions - Bariatric Surgery NEW PRESCRIPTIONS: bonding supervisor at [facility] today: ondansetron (Zofran), omeprazole (Prilosec), liquid oxycodone, Tylenol regular strength tablets OR liquid, Miralax, Colace HOME MEDICATION PLAN: No changes, take whole: cyclobenzaprine (Flexeril), oxybutynin (Ditropan XL), propranolol (Inderal) Changes: Ok to open/cut in half/crush for 2 weeks: fluoxetine (Prozac), lamotrigine (Lamictal) MEDICATIONS: For 2 WEEKS: LARGE pills (bigger than the size of a Skittle or M&M) must be crushed. Large capsules must be opened and put in applesauce or pudding. Please use the size template below to measure your pills. Pills that are the same size or smaller than the template below do not need to be crushed/opened Not all medications can be crushed. Check with your pharmacist if unsure. HOLD bariatric vitamins for 2 weeks after surgery (unless you have one that is chewable or liquid). Size Template: BARIATRIC SUPPORT TEAM CONTACT NUMBERS (Mon-Fri 8am - 5pm): General Surgery and Bariatric Surgery [phone] Bariatric Surgeons: Adair Cherry Trus [phone] Element Burner: [phone] Dietitians: [phone] Outside of regular business hours, including weekends and holidays: Ask for General Surgery resident telephony engineer [phone] Please note, this call will be answered by a resident, and they may not be able to return your call for several hours FOR EMERGENCIES: CALL 911 (trouble breathing, chest pain, rapid heart rate >120 beats per minuteor severe abdominal pain) CALL THE BARIATRIC TEAM FOR ANY OF THE FOLLOWING: Signs and symptoms of infection such as: Redness or swelling or new significant drainage from wounds Drainage or bleeding from wounds Fever over 101 degrees Fahrenheit, or shaking chills Persistent diarrhea or vomiting or inability to keep down food or fluids in a 24 hour period Signs / symptoms of a blood clot: leg swelling, redness, pain, shortness of breath Problems with urination or constipation, worsening abdominal pain not controlled with pain medication Any concerns you may have after your surgery Follow up Information: You have a surgical follow up appointment with The Bariatric Surgery Team in 3 weeks at the [facility] ([address] [place] [address], [facility]). Future Appointments Date Time Provider Department Center 01/30/2023 9:30 AM Anita Aviles APRN [facility] SURG [facility] 04/26/2023 9:30 AM Anita Aviles APRN [facility] SUR[facility]OUND [facility] You have steri-strips and Band-Aids over your incisions. You may remove Band- Aids in 48 hours and then shower. Leave the steri-strips (little pieces of skin tape) across the incision and allow them to peel off on their own. If they are still there in 10 days, you may remove them. When you shower, let soap and water run over incisions without scrubbing. Pat dry gently. Some bruising around your incisions is normal. Using ice packs will help minimize this swelling. No swimming or soaking in water (ie. hot tubs or baths) for two weeks. Your stitches will dissolve and do not need to be removed. ACTIVITY, LIFTING AND DRIVING: For laparoscopic surgery, there are no lifting restrictions. Lift when you feel comfortable to do so. Do not drive if you are taking narcotic pain medication. When you are no longer taking narcotic pain medication and when it no longer causes pain to get in and out of the vehicle, you may drive when comfortable. DIET: Follow Stage II diet for two weeks. Keep a log of your intake, both for reminders to drink/eat, and to ask questions at your follow up. Daily goals are: 48-64 ounces of fluids (at least two of the bottles given to you in the hospital) and 60 grams of protein. CONSTIPATION: Your goal is at least 1 BM per day. Be sure you are meeting your fluid goals and moving/walking. Take 1 capful of Miralax daily (preferably at night) You can increase the dose as needed every 2-3 days (by adding on 1 capful either morning or night) without safety concerns, noting that individual tolerance becomes limited by loose stools and bloating with doses higher than 2 capfuls twice daily. Please call or send a [facility] message if you do not have a BM after 3 days. On days with loose stools, we recommend reducing Miralax to 1/2 capful daily, but continue to take Miralax every day. If you continue to be constipated after taking Miralax for 1-2 days after surgery, you may add in the following over the counter medication: Take one 100 mg capsule of Colace every day, up to twice daily. BLOOD CLOT PREVENTION: You DO NOT meet scoring criteria to be discharged on medication to prevent blood clots. Be active, walk at least 4 times a day and do blood clot prevention exercises in your handbook on page 82. IF YOU ARE TREATED FOR OBSTRUCTIVE SLEEP APNEA: IMPORTANT - you MUST use your CPAP/ BIPAP after surgery while sleeping at night and also when napping during the day because some medications you may have been prescribed at discharge can decrease your breathing. Follow up with the [facility] if pressure seems to be too high. ULCER PREVENTION: IMPORTANT - starting the day after discharge, you must take acid suppressing medication for 3 MONTHS after surgery. This is taken to prevent ulcers at your surgical sites internally, even if you do not have heartburn. You will start taking Omeprazole 40 mg daily. Omeprazole capsules contain enteric-coated, delayed-release granules. It is ok to swallow this capsule, but if you choose, you can OPEN the capsules, sprinkle the enteric-coated granules on applesauce or yogurt. Alternatively, you may take the granules with apple juice, or swallow them quickly withwater. Follow any of these methods with additional water to ensure that you have swallowed the granu les completely. If your insurer does not cover omeprazole, or similar medications such as pantoprazole, you must purchase these medications over the counter. You will continue this after the initial 3 month course if you have heartburn or reflux GALLSTONE PREVENTION: If you have had your gallbladder REMOVED - you do not need this medication. PATIENTS WITH HIGH BLOOD PRESSURE: Monitor your blood pressure regularly. If you feel dizzy and have been drinking 48-64 ounces of fluid, have your blood pressure checked. If your blood pressure is low, call your primary care provider. Keep a log to bring to your PCP appointments. PATIENTS WHO TAKE DIURETICS (WATER PILLS): Check with your surgical team prior to [...] medications unless advised. Ongoing counseling is encouraged. PAIN MEDICATION: Your pain should lessen with [...] Do NOT use NSAIDS (ibuprofen, Motrin, Aleve, aspirin, naproxen, etc.) to adjunct your pain control. Opioids [...] address this. OTHER MEANS FOR PAIN RELIEF: Learn deep breathing exercises or meditation to [...] SURGERY: Discontinue anti-inflammatory non-steroidal medications, such as Advil, Aleve, ibuprofen, naproxen,etc. Refer to Medications that may increase the risk of bleeding in your handbook. If you do take aspirin for your heart or to prevent strokes, continue as prescribed. WOMEN OF CHILDBEARING AGE: Fertility may increase [...] Follow up with primary care provider or geological specialist in 1-2 weeks in order to adjust your changing diabetes treatment requirements. VITAMIN AND MINERAL SUPPLEMENTATION: START at 2 [...] You should follow up with your surgeon and dietitian at 3-4 weeks after surgery. You will follow up with the dietitian and Bariatric nurse practitioner at 4, 12, 18, and 24 months,then yearly for life. documented in this encounter Medications at Time of Discharge Medication Sig Dispensed Refills Start Date End Date cholecalciferol, Vitamin D3, 50 mcg (2,000 unit) Capsule Take 1 capsule by mouth daily. 12/26/2022 Emgality Pen 120 mg/mL Pen Injector Inject [...] every 6 hours as needed. 2 04/11/2016 ondansetron ODT (Zofran-ODT) 4 mg Tablet, Rapid Dissolve Take 1 tablet by mouth every 8 hours as needed for Nausea. 20 tablet 01/11/2023 01/22/2023 omeprazole (PriLOSEC) 40 mg Capsule, Delayed Release(E.C.) Take 1 capsule by mouth daily for 90 days. 90 capsule 01/11/2023 03/05/2023 polyethylene glycoL (Miralax) 17 gram/dose Powder Take 17 g by mouth daily. 01/11/2023 03/19/2023 acetaminophen (Tylenol) 650 mg/20.3 mL Solution Take 20.3 mLs by mouth every 6 hours as needed. 01/11/2023 03/19/2023 docusate sodium (Colace) 100 mg Capsule Take 1 capsule by mouth 2 times daily as needed for Constipation. 01/11/2023 03/19/2023 oxyCODONE (Roxicodone) 5 mg/5 mL Solution Take 5 mLs by mouth every 6 hours as needed for Pain. 60 mL 01/11/2023 01/23/2023 acetaminophen (TYLENOL) 650 mg Tablet Sustained Release Take 650 mg by mouth every 8 hours as needed. 12/16/2022 03/05/2023 oxybutynin (DITROPAN XL) 15 mg Tablet Extended Rel 24 hr 15 mg daily. 08/07/2021 lamoTRIgine (LaMICtal) 150 mg Tablet Take 150 mg by mouth 2 times daily. 07/15/2021 03/29/2023 documented as of this encounter Progress Notes * Jill Valle RN - 01/13/2023 3:04 PM ESTSummary: Nursing Discharge Patient assessed at start of shift, assessment benign, VSS, pt on RA, pain controlled with scheduled Tylenol and PRN Oxycodone 5 mg. Pt PO intake improved this morning from yesterday, tolerating better diet -eating 50-75% of meals, ambulating independently in hallway and to BR. Voiding adequately, +BM today. Surgical sites ELLEN with steristrips cdi, no drainage or signs of infection. AVS given andreviewed with patient, questions answered, pt stated understanding. Prescriptions to be picked up at [facility] after discharge. PIV removed by this RN, site clean no redness or pain. Pt ambulated off unit with for private transport Home, no services. * Natalee Winn MD - 01/13/2023 6:54 AM EST Bariatric Surgery Inpatient Progress Note ID: Leandra Wilks is a 42 y.o. female with h/o morbid obesity, GERD, mild CHUN (no longer on CPAP), IBS-D. She presents for bariatric surgery. Hospital Day: 3 Procedures: lap Renato-en-Y gastric bypass, now 3 Days Post-Op Subjective & 24hr events: ?? Nausea improved, states well controlled with zofran ?? Tolerating liquids, endorses initially feeling like swallows get hung up a little then passes in<15-30 seconds without issue. No regurgitation or pain. ?? Ambulating without issue ?? Voiding without issue ?? +Flatus ?? IS to 1000cc this AM, feels limited by some discomfort over left side of abdomen/ribs O: Last value Range last 24hrs Temperature Temp: 36.4 ??C (97.5 ??F) Temp: [36.4 ??C (97.5 ??F)-36.8 ??C (98.2 ??F)] Heart Rate Heart Rate: 82 Heart Rate: -- Blood Pressure BP: 114/57 BP: (114-144)/(57-85) Respiratory Rate Resp: 16 Resp: [16] SpO2 SpO2: 93 % SpO2: [93 %-97 %] 01/12 0701 - 01/13 0700 In: 2849 [P.O.:1100; I.V.:1749] Out: 1150 [Urine:1150] Intake and Output: I/O last 3 completed shifts: In: 5705.8 [P.O.:860; I.V.:4845.8] Out: 1550 [Urine:1550] I/O this shift: In: 1443 [P.O.:620; I.V.:823] Out: 750 [Urine:750] Current Medications: Current Facility-Administered Medications Medication Dose Route Frequency Provider Last Rate Last Admin ??? acetaminophen (Tylenol) (32.02 mg/mL) oral liquid 975 mg 975 mg Oral Q6H [facility] Raul Ho MD 975 mg at 01/13/23 0549 ??? lactated ringers infusion 75 mL/hr Intravenous Continuous Iram Lee MD 75 mL/hr at 01/13/23 0547 75 mL/hr at 01/13/23 0547 ??? tamsulosin (Flomax) capsule 0.4 mg 0.4 mg Oral Daily Natalee Winn MD 0.4 mg at 01/12/23 0850 ??? enoxaparin (Lovenox) (40 mg/0.4 mL) subcutaneous injection 40 mg 40 mg Subcutaneous 2 times perday Joan Solorzano PA 40 mg at 01/12/232048 ??? scopolamine (Transderm-Scop) 1 mg over 3 days patch 1 patch 1 patch Transdermal Q72H Iram Lee MD 1 patch at 01/11/23 1453 And ??? scopolamine (Transderm-Scop) 1 mg patch Patch Verification 1 patch Transdermal BID Iram Lee MD ??? oxyCODONE (Roxicodone) (1 mg/mL) oral liquid 5 mg 5 mg Oral Q4H PRN Natalee Winn MD 5 mg at 01/13/23 0446 ??? ondansetron (pf) (Zofran) (2 mg/mL) injection 4 mg 4 mg Intravenous Q6H [facility] Natalee Winn MD 4 mg at 01/13/23 0549 ??? lidocaine (Lidoderm) 5% patch 3 patch 3 patch Transdermal Q24H Natalee Winn MD 3 patch at01/12/23 1733 ??? BUpivacaine (pf) (Marcaine) (2.5 mg/mL) 0.25% injection Once PRN Iram Lee MD 30 mL at01/10/23 1827 ??? FLUoxetine (PROzac) (4 mg/mL) oral liquid 20 mg 20 mg Oral Daily Natalee Winn MD 20 mg at01/12/23 0848 ??? lamoTRIgine (LaMICtal) tablet 150 mg 150 mg Oral BID Natalee Winn MD 150 mg at 01/12/232049 ??? latanoprost (Xalatan) 0.005 % ophthalmic solution 1 drop 1 drop Both Eyes Nightly Natalee Winn MD 1 drop at 01/12/232050 ??? albuteroL (Proventil, Ventolin) (2.5 mg/3 mL) (0.083 %) nebulizer solution 2.5 mg 2.5 mg Nebulization Q4H PRN Natalee Winn MD ??? propranoloL (Inderal) tablet 20 mg 20 mg Oral BID Natalee Winn MD 20 mg at 01/12/232050 ??? sodium chloride 0.9 % (flush) (BD PosiFlush Normal Saline 0.9) flush 5 mL 5 mL Intravenous BID Natalee Winn MD 5 mL at 01/12/232050 ??? sodium chloride 0.9 % (flush) (BD PosiFlush Normal Saline 0.9) flush 5-20 mL 5-20 mL Intravenous Q1 Min PRN Natalee Winn MD ??? lidocaine (Xylocaine) 1% (10 mg/mL) injection 3 mg 0.3 mL Subcutaneous Once PRN Vikram Winn MD ??? pantoprazole (Protonix) injection 40 mg 40 mg Intravenous Daily Natalee Winn MD 40 mg at 01/12/23 0848 ??? prochlorperazine (Compazine) (5 mg/mL) injection 10 mg 10 mg Intravenous Q6H PRN Natalee Winn MD 10 mg at 01/11/232131 ??? promethazine (Phenergan) (25 mg/mL) injection 6.25 mg 6.25 mg Intravenous Q4H PRN Natalee Winn MD 6.25 mg at 01/11/23 1121 ??? celecoxib (CeleBREX) capsule 200 mg 200 mg Oral BID Natalee Winn MD 200 mg at 01/12/232049 Physical Exam: General: awake, alert, no acute distress, smiling HEENT: atraumatic, normocephalic CVS: RRR on monitor, HR in 70s Pulm: unlabored breathing on room air Abd: soft, appropriately tender around periumbilical port site, non-distended, incisions clean/dry/intact Skin: warm, dry Ext: warm, well perfused, no jaundice, no cyanosis, no edema Neuro: nonfocal, moving all four extremities spontaneously, answers and asks questions appropriately Recent Labs 01/12/23 0637 01/11/23 0700 01/11/23 0030 WBC 9.4 12.9* 13.7* HGB 11.1* 11.5* 11.9 HCT 31.7* 34.3* 35.1* PLATELET 293 345 334 Recent Labs 01/12/23 0637 01/11/23 0030 NA 139 134* K 3.3* 4.1 CL 104 100 CO2 27 22 BUN 6* 13 CREATININE 0.64* 0.75 GLUCOSE 134 203* CALCIUM 8.4* 8.7 MAGNESIUM -- 0.74 PHOS -- 3.1 New Imaging: None Assessment: Leandra Wilks is a 42 y.o. female with h/o morbid obesity and others as above who isnow 3 Days Post-Op s/p lap gastric bypass. Her nausea and oral intake have improved significantly. Her recorded PO overnight is ontrack to meet her daily fluid needs. Encouraged continued small sips to help with swallowing. Provided patient with explicit goals for her daily intake--equivalent of atleast two of the bottles she has been given at bedside from when she awakes to bedtime for one day.Patient expressed good understanding and feels she will be able to meet this goal at home. Will follow up her oral intake this morning and if she continues to be on track, will plan for discharge later today. Plan: Neuro/Pain: pain control with scheduled Tylenol, BID Celebrex, PRN Roxicodone; Prozac, Lamictal perhome meds; BID propanolol for headache ppx per home meds CV: HDS, will continue to monitor Pulm: incentive spirometer, OOB as tolerated FEN/GI: gastric bypass stage 2 diet, LR @ 75 mL/hr, scheduled Zofran, PRN Compazine and Phenergan available, replete lytes Renal/: strict I/Os, encourage voiding per above with ambulation to bathroom, Flomax Wound/ID: routine wound care Heme: stable post-op hgb Prophylaxis: SCDs, Lovenox, PPI Dispo: floor status, full code, discharge pending hospital course, possibly later today Discussed with Dr. Lee Signed: Natalee Winn MD General Surgery 6:54 AM 01/13/23 MIS service pager: [phone] * Katherin Kerns MD - 01/12/2023 7:40 AM EST Bariatric Surgery Inpatient Progress Note ID: Leandra Wilks is a 42 y.o. female with h/o morbid obesity, GERD, mild CHUN (no longer on CPAP), IBS-D. She presents for bariatric surgery. Hospital Day: 2 Procedures: lap Renato-en-Y gastric bypass, now 2 Days Post-Op Subjective & 24hr events: ?? Intermittent nausea despite scheduled zofran requiring compazine x1 overnight ?? Ambulating ?? UA negative for UTI ?? IS to 750cc ?? Recorded PO 380cc; last night had soup and pudding ?? Reports that she occasionally feels food getting stuck and then passing spontaneously; denies regurgitation or pain with swallowing ?? Pain well controlled O: Last value Range last 24hrs Temperature Temp: 36.5 ??C (97.7 ??F) Temp: [36.5 ??C (97.7 ??F)-37.2 ??C (99 ??F)] Heart Rate Heart Rate: 82 Heart Rate: -- Blood Pressure BP: 131/76 BP: (112-131)/(63-76) Respiratory Rate Resp: 16 Resp: [15-20] SpO2 SpO2: 93 % SpO2: [93 %-94 %] 01/11 0701 - 01/12 0700 In: 4299.8 [P.O.:380; I.V.:3919.8] Out: 1150 [Urine:1150] Intake and Output: I/O last 3 completed shifts: In: 5064.3 [P.O.:582; I.V.:4482.3] Out: 2315 [Urine:2315] No intake/output data recorded. Current Medications: Current Facility-Administered Medications Medication Dose Route Frequency Provider Last Rate Last Admin ??? acetaminophen (Tylenol) (32.02 mg/mL) oral liquid 975 mg 975 mg Oral Q6H Raul Kohli MD 975 mg at 01/12/23 0542 ??? potassium chloride 10 mEq in sterile water 100 mL infusion 10 mEq Intravenous Q1H Katherin Kerns MD ??? tamsulosin (Flomax) capsule 0.4 mg 0.4 mg Oral Daily Natalee Winn MD 0.4 mg at 01/11/23 0853 ??? enoxaparin (Lovenox) (40 mg/0.4 mL) subcutaneous injection 40 mg 40 mg Subcutaneous 2 times perday Joan Solorzano PA 40 mg at 01/11/23 2020 ??? scopolamine (Transderm-Scop) 1 mg over 3 days patch 1 patch 1 patch Transdermal Q72H Iram Lee MD 1 patch at 01/11/23 1453 And ??? scopolamine (Transderm-Scop) 1 mg patch Patch Verification 1 patch Transdermal BID Iram Lee MD ??? oxyCODONE (Roxicodone) (1 mg/mL) oral liquid 5 mg 5 mg Oral Q4H PRN Natalee Wnin MD 5 mg at 01/11/23 1837 ??? ondansetron (pf) (Zofran) (2 mg/mL) injection 4 mg 4 mg Intravenous Q6H [facility] Natalee Winn MD 4 mg at 01/12/23 0517 ??? lidocaine (Lidoderm) 5% patch 3 patch 3 patch Transdermal Q24H Natalee Winn MD 3 patch at01/11/23 1839 ??? BUpivacaine (pf) (Marcaine) (2.5 mg/mL) 0.25% injection Once PRN Iram Lee MD 30 mL at01/10/23 1827 ??? FLUoxetine (PROzac) (4 mg/mL) oral liquid 20 mg 20 mg Oral Daily Natalee Winn MD 20 mg at01/11/23 1140 ??? lamoTRIgine (LaMICtal) tablet 150 mg 150 mg Oral BID Natalee Winn MD 150 mg at 01/11/23 1148 ??? latanoprost (Xalatan) 0.005 % ophthalmic solution 1 drop 1 drop Both Eyes Nightly Natalee Winn MD 1 drop at 01/11/232105 ??? albuteroL (Proventil, Ventolin) (2.5 mg/3 mL) (0.083 %) nebulizer solution 2.5 mg 2.5 mg Nebulization Q4H PRN Natalee Winn MD ??? propranoloL (Inderal) tablet 20 mg 20 mg Oral BID Natalee Winn MD 20 mg at 01/11/23 1147 ??? sodium chloride 0.9 % (flush) (BD PosiFlush Normal Saline 0.9) flush 5 mL 5 mL Intravenous BID Natalee Winn MD 5 mL at 01/11/232010 ??? sodium chloride 0.9 % (flush) (BD PosiFlush Normal Saline 0.9) flush 5-20 mL 5-20 mL Intravenous Q1 Min PRN Natalee Winn MD ??? lidocaine (Xylocaine) 1% (10 mg/mL) injection 3 mg 0.3 mL Subcutaneous Once PRN Vikram Winn MD ??? lactated ringers infusion 1,000 mL Intravenous Continuous Natalee Winn MD 125 mL/hr at 01/12/23 0039 1,000 mL at 01/12/23 0039 ??? pantoprazole (Protonix) injection 40 mg 40 mg Intravenous Daily Natalee Winn MD 40 mg at 01/11/23 0855 ??? prochlorperazine (Compazine) (5 mg/mL) injection 10 mg 10 mg Intravenous Q6H PRN Natalee Winn MD 10 mg at 01/11/232 ??? promethazine (Phenergan) (25 mg/mL) injection 6.25 mg 6.25 mg Intravenous Q4H PRN Natalee Winn MD 6.25 mg at 01/11/23 1121 ??? celecoxib (CeleBREX) capsule 200 mg 200 mg Oral BID Natalee Winn MD 200 mg at 01/11/23 0853 Physical Exam: General: awake, alert, no acute distress HEENT: atraumatic, normocephalic CVS: RRR on monitor, HR in 80s Pulm: unlabored breathing on room air Abd: soft, appropriately tender around periumbilical port site, non-distended, incisions clean/dry/intact : no amaya Skin: warm, dry Ext: warm, well perfused, no jaundice, no cyanosis, no edema Neuro: CN 2-12 grossly intact, nonfocal, moving all four extremities spontaneously Recent Labs 01/12/23 0637 01/11/23 0700 01/11/23 0030 WBC 9.4 12.9* 13.7* HGB 11.1* 11.5* 11.9 HCT 31.7* 34.3* 35.1* PLATELET 293 345 334 Recent Labs 01/12/23 0637 01/11/23 0030 NA 139 134* K 3.3* 4.1 CL 104 100 CO2 27 22 BUN 6* 13 CREATININE 0.64* 0.75 GLUCOSE 134 203* CALCIUM 8.4* 8.7 MAGNESIUM -- 0.74 PHOS -- 3.1 New Imaging: None Assessment: Leandra Wilks is a 42 y.o. female with h/o morbid obesity and others as above who isnow 2 Days Post-Op s/p lap gastric bypass. Yesterday morning was having pain which was limiting hergetting out of bed. This morning pain is better controlled, and she has been ambulating independently. She was advanced to a bariatric 2 diet which she is tolerating well. Today we will monitor Leandra's oral intake closely to ensure that she can keep up with her hydration at home. She needs to continue being out of bed and ambulating as much as possible. Additionally,needs frequent encouragement to use incentive spirometer. Discharge today vs tomorrow pending the above. No needs at discharge. Plan: Neuro/Pain: pain control with scheduled Tylenol, BID Celebrex, PRN Roxicodone; Prozac, Lamictal perhome meds; BID propanolol for headache ppx per home meds CV: HDS, will continue to monitor Pulm: incentive spirometer, OOB as tolerated FEN/GI: gastric bypass stage 2 diet, LR @ 125 mL/hr, scheduled Zofran, PRN Compazine and Phenergan available, replete lytes Renal/: strict I/Os, encourage voiding per above with ambulation to bathroom, Flomax Wound/ID: routine wound care Heme: stable post-op hgb Prophylaxis: SCDs, Lovenox, PPI Dispo: floor status, full code, discharge pending hospital course Signed: Katherin Kerns MD General Surgery 7:40 AM 01/12/23 MIS service pager: [phone] Associated attestation - Iram Lee MD - 01/12/2023 12:21 PM EST I have seen and examined the patient, reviewed the history documented and I agree with the details as written. I have reviewed the available, pertinent laboratory data and imaging. The assessment andplan were formulated in discussion with me and I agree with them as documented. Iram Lee MD * Joan Solorzano PA - 01/11/2023 8:13 AM EST Bariatric Surgery Inpatient Progress Note ID: Leandra Wilks is a 42 y.o. female with h/o morbid obesity, GERD, mild CHUN (no longer on CPAP), IBS-D. She presents for bariatric surgery. Hospital Day: 1 Procedures: lap Renato-en-Y gastric bypass, now 1 Day Post-Op Subjective & 24hr events: ?? Moderate pain partially relieved by scheduled and PRN meds overnight ?? Has not been out of bed post-op; unable to void in bedpan and straight cathed x2 overnight per night team ?? Isolated episode of tachycardia to 107, HR 60-70s on AM rounds; O2 saturation mid-high 90s on 2LNC overnight, unchanged on room air during AM rounds; normotensive and afebrile ?? Small PO intake on clears overnight, only ice chips, nausea well controlled with scheduled and PRN antiemetics no vomiting, dysphagia, regurgitation ?? Labs s/f blood glucose 203, hgb stable 11.9 at 0030 and 11.5 at 0700 O: Last value Range last 24hrs Temperature Temp: 37.1 ??C (98.8 ??F) Temp: [36.4 ??C (97.5 ??F)-37.1 ??C (98.8 ??F)] Heart Rate Heart Rate: 82 Heart Rate: [75-95] Blood Pressure BP: 117/66 BP: (112-178)/(66-99) Respiratory Rate Resp: 16 Resp: [10-24] SpO2 SpO2: 96 % SpO2: [94 %-100 %] 01/10 0701 - 01/11 0700 In: 2464.5 [P.O.:202; I.V.:2262.5] Out: 1338 [Urine:1315] Intake and Output: I/O last 3 completed shifts: In: 2464.5 [P.O.:202; I.V.:2262.5] Out: 1338 [Urine:1315; Blood:23] No intake/output data recorded. Current Medications: Current Facility-Administered Medications Medication Dose Route Frequency Provider Last Rate Last Admin ??? magnesium sulfate 2 g in sterile water 50 mL infusion 2 g Intravenous Once Katherin Kerns MD ??? tamsulosin (Flomax) capsule 0.4 mg 0.4 mg Oral Daily Natalee Winn MD ??? BUpivacaine (pf) (Marcaine) (2.5 mg/mL) 0.25% injection Once PRN Iram Lee MD 30 mL at01/10/23 1827 ??? FLUoxetine (PROzac) (4 mg/mL) oral liquid 20 mg 20 mg Oral Daily Natalee Winn MD ??? lamoTRIgine (LaMICtal) tablet 150 mg 150 mg Oral BID Natalee Winn MD ??? latanoprost (Xalatan) 0.005 % ophthalmic solution 1 drop 1 drop Both Eyes Nightly Natalee Winn MD ??? albuteroL (Proventil, Ventolin) (2.5 mg/3 mL) (0.083 %) nebulizer solution 2.5 mg 2.5 mg Nebulization Q4H PRN Natalee Winn MD ??? propranoloL (Inderal) tablet 20 mg 20 mg Oral BID Natalee Winn MD ??? sodium chloride 0.9 % (flush) (BD PosiFlush Normal Saline 0.9) flush 5 mL 5 mL Intravenous BID Natalee Winn MD 5 mL at 01/10/234 ??? sodium chloride 0.9 % (flush) (BD PosiFlush Normal Saline 0.9) flush 5-20 mL 5-20 mL Intravenous Q1 Min PRN Natalee Winn MD ??? lidocaine (Xylocaine) 1% (10 mg/mL) injection 3 mg 0.3 mL Subcutaneous Once PRN Vikram Winn MD ??? lactated ringers infusion 1,000 mL Intravenous Continuous Natalee Winn MD 125 mL/hr at 01/11/23 0308 1,000 mL at 01/11/23 0308 ??? pantoprazole (Protonix) injection 40 mg 40 mg Intravenous Daily Natalee Winn MD 40 mg at 01/10/23 2144 ??? ondansetron (pf) (Zofran) (2 mg/mL) injection 4 mg 4 mg Intravenous Q8H [facility] Natalee Winn MD 4 mg at 01/11/23 0502 ??? prochlorperazine (Compazine) (5 mg/mL) injection 10 mg 10 mg Intravenous Q6H PRN Natalee Winn MD 10 mg at 01/10/23 2326 ??? promethazine (Phenergan) (25 mg/mL) injection 6.25 mg 6.25 mg Intravenous Q4H PRN Natalee Winn MD ??? oxyCODONE (Roxicodone) (1 mg/mL) oral liquid 5 mg 5 mg Oral Q6H PRN Natalee Winn MD 5 mg at 01/10/23 2320 ??? celecoxib (CeleBREX) capsule 200 mg 200 mg Oral BID Natalee Winn MD ??? acetaminophen (Tylenol) (32.02 mg/mL) oral liquid 1,000 mg 1,000 mg Oral Q6H [facility] Natalee Winn MD 1,000 mg at 01/11/23 0502 Physical Exam: General: awake, alert, no acute distress HEENT: atraumatic, normocephalic CVS: RRR on monitor Pulm: unlabored breathing on room air Abd: soft, appropriately tender, non-distended, incisions clean/dry/intact : no amaya Skin: warm, dry Ext: warm, well perfused, no jaundice, no cyanosis, no edema Neuro: CN 2-12 grossly intact, nonfocal, moving all four extremities spontaneously Recent Labs 01/11/23 0700 01/11/23 0030 WBC 12.9* 13.7* HGB 11.5* 11.9 HCT 34.3* 35.1* PLATELET 345 334 Recent Labs 01/11/23 0030 NA 134* K 4.1 CL 100 CO2 22 BUN 13 CREATININE 0.75 GLUCOSE 203* CALCIUM 8.7 MAGNESIUM 0.74 PHOS 3.1 New Imaging: None Assessment: Leandra Wilks is a 42 y.o. female with h/o morbid obesity and others as above who isnow 1 Day Post-Op s/p lap gastric bypass. She needs better post-op optimization before we start planning discharge timing. Patient needs to be up out of bed, day/night separation with open blinds, light on, not napping in bed during the day, out of bed and ambulating to bathroom for voiding. Will advance to stage 2 diet this morning. Bottle of water at bedside at all times. Encourage incentive spirometry. Of note, patient reports a one week history of difficulty urinating prior to surgery so will also order UA w/ reflex. She reports a history of this in the past for which she was treated with unknown vaginal suppository cream, possibly for yeast infection. Patient has no history of DM, hyperglycemiais likely due to intra-op Decadron. Discharge today vs tomorrow pending the above. No needs at discharge. Plan: Neuro/Pain: pain control with scheduled Tylenol, BID Celebrex, PRN Roxicodone; Prozac, Lamictal perhome meds; BID propanolol for headache ppx per home meds CV: HDS, will continue to monitor Pulm: incentive spirometer, OOB as tolerated FEN/GI: gastric bypass stage 2 diet, LR @ 125 mL/hr, scheduled Zofran, PRN Compazine and Phenergan available, replete lytes Renal/: strict I/Os, encourage voiding per above with ambulation to bathroom, start Flomax Wound/ID: routine wound care Heme: stable post-op hgb Prophylaxis: SCDs, Lovenox, PPI Dispo: floor status, full code, discharge pending hospital course Signed: EDER Hernandez General Surgery 8:39 AM 01/11/23 MIS service pager: [phone] Associated attestation - Iram Lee MD - 01/11/2023 11:34 AM EST I have seen and examined the patient, reviewed the history documented and I agree with the details as written. I have reviewed the available, pertinent laboratory data and imaging. The assessment andplan were formulated in discussion with me and I agree with them as documented. Iram Lee MD * Paulo Dsouza DO - 01/10/2023 10:19 PM EST General Surgery Post-Op Check Note Patient Name: Leandra Wilks DOB; Age: 4 1980; 42 y.o. Room/Bed: [facility]LOCATED WITHIN [facility] Today's Date: 01/10/23 Attending: IRAM LEE Procedure: LRYBG Procedure Date: 01/10/2023 S: No vomiting, chest pain, or SOB. Endorsing pain and mild nausea, controlled with current regimen. No further complaints Very sleepy. Not yet voided. O: Physical Exam Last value Range last 24 hrs Temperature Temp: 36.5 ??C (97.7 ??F) Temp: [36.4 ??C (97.5 ??F)-37 ??C (98.6 ??F)] Heart Rate Heart Rate: 82 Heart Rate: [75-95] Blood Pressure BP: 143/73 BP: (112-178)/(73-99) Respiratory Rate Resp: 16 Resp: [10-24] SpO2 SpO2: 96 % SpO2: [94 %-100 %] Art BP BP (Arterial Line): -- Gen: NAD, alert & oriented x3 Endo: Denies any concepcion-oral or peripheral extremity numbness or tingling. Pulm: CTAB, no crackles/wheezes, no SOB. Card: RRR, no CP. Abd: Non-distended, soft, appropriately tender. Wound: incision clean, dry, intact, no purulent drainage; incision is well- approximated and is without erythema, swelling, or drainage. Ext: no edema, 2+ peripheral pulses 24 Hour I/O's: I/O last 3 completed shifts: In: 1700 [I.V.:1700] Out: 173 [Urine:150; Blood:23] Admit Weight: Current Weight: Weight: (pt refuse weight measurment) Labs: No results for input(s): WBC, HGB, HCT, PLATELET, PT, INR, PTT in the last 72 hours. No results for input(s): NA, K, CL, CO2, BUN, CREATININE, GLUCOSE, CALCIUM, MAGNESIUM, PHOS in the last 72 hours. A/P: Leandra Wilks is a 42 y.o. female Day of Surgery s/p LRYGB. Currently in stable condition and recovering well. - pain well controlled - Due to void, encourage ambulation and fluid intake - hemodynamically stable - continue post operative plan per primary team Signed: Paulo Dsouza DO 01/10/23 10:20 PM * Rose Breen RN - 01/10/2023 8:01 PM EST 1999: Bedside handoff report received from previous nurseDayan. 2039: Patient's partner, Jaxon, called and I updated him on patient's status. 2104: Patient's son, Abelino [phone], called and I updated him on patient's status. 2129: Patient meets PACU discharge criteria. 2249: Plans for patient to remain in PACU overnight. Transferred from PACU 9 to PACU 21 for comfort and safety. Bedside handoff report given to nurseJessica. documented in this encounter H&P Notes * Natalee Winn MD - 01/10/2023 12:43 PM EST Patient Name: Leandra Wilks Patient Age: 42 y.o. Birthdate: 1980 Admit date: 01/10/2023 Attending Physician: Iram Lee MD [facility] Minimally Invasive Surgery Pre-Operative H&P Patient evaluated day of surgery. Please see below for details of patient history as adapted from last clinic visit.No new findings or changes to medical history. No recent illnesses, cough, fever, diarrhea. Plan to proceed with surgery. Natalee Winn MD 01/10/23 12:43 PM MISpager [phone] Leandra attended a comprehensive group pre-operative class today, which included discussion of pre and post operative instructions included in the [facility] Bariatric Surgery Program Education Handbook. The nutrition component of the class was taught by the BSP RD. ?? Patient completed health update form. Pt reminded to stop NSAIDs and reviewed risk of NSAIDs postopbariatric surgery. No new medical issues/ED visit. Medications/allergies are reviewed, otherwise today's visit was group visit. ?? Surgery info: Patient is scheduled for laparoscopic Renato-en-Y gastric bypass on 01/10/[address] Lee. ?? Pre-Bariatric Surgery Obesity related medical issues: ?? Problem Baseline issue if checked Comments Diabetes/prediabetes/insulin resistance []? Metabolic syndrome or PCOS []? HTN []? Taking propranolol??for headaches GERD [x]? No Rx, symptoms 1x/month or less, no tx Hyperlipidemia []? CHUN [x]? 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 OA??(back) Liver Disease []? Other [x]? IBS-D??(episodes once a week), usually every day ? Post Bariatric Surgery Medications: Extended VTE prophylaxis post surgery Not indicated. Ursodiol gallstone prophylaxis Not indicated, s/p cholecystectomy. PPI ulcer prophylaxis Indicated, to be prescribed at discharge. Contraception s/p hysterectomy ? WT (lbs) BMI HT Highest wt Initial Pre-op visit 10/09/22 228.8 39.3 64 237 12/18/22 238 40.8 ? Post-op WT (lbs) BMI ?? %EBW lost ? Preop labs:labs completed. Vit D low ~ 21 Prescriptions provided at today's visit: none ?? Bariatric Surgery Program Pathway and review of status with the requirements of the Bariatric Surgery Program ?? 1. ??Education:??Pt previously attended a Introduction to the [facility] Bariatric Surgery Program seminar, a two hour meeting that provides a program overview as well as expectations. The [facility] Bariatric Surgery Program Educational seminar requirement has been met. The BSP Educational Handbook was provided at visit #1. 2. ??Pre-operative programmatic evaluations??have been done, as noted in previous pathway review. 3. ??Bariatric Surgery Program evaluations with the surgeon and dietitian have taken place. Annemarie been approved to proceed with surgery by surgeon. 6. ??Surgical consultation has taken place Next steps in pathway: ??? During hospitalization??for bariatric surgery, a standard bariatric surgery order set is followed. ??? Routine post-operative follow up??with labwork is done at months 1,4,12 and 24, yearly thereafter, and PRN. ??High risk patients are followed more frequently. ?? Some of the topics reviewed during group discussion today included: ??? day of surgery and post-op routine care/ locations: Admissions/SDP/PACU///2 [facility] units ??? medications that increase the risk of bleeding including NSAIDs and anticoagulants to be avoided per guidelines pre and post-operatively ??? DVT/VTE prevention and signs of DVT/PE. ? Inpatient management for VTE prevention: venodynes, ambulation, Enoxaparin 40 units BID during inpatient stay. ?Indications for extended Enoxaparin 10 days post discharge: ?A. patients with BMI >60 or prior VTE OR ?B. 2 or more of the following: age >50, BMI >50, male gender, sleep apnea, varicose veins, venous insufficiency, history of oral contraceptive or hormone or post-menopausal hormone replacement use within 30 days of surgery, and recent smoking ??? guidelines for patients treated with oral anticoagulants??per Thrombosis Clinic ??? diabetes and hypertension monitoring during pre-op diet and post- operatively. Diuretic therapy is held to avoid risk of dehydration unless patient is symptomatic. ??? signs and symptoms of infection as well as emergency signs and symptoms were reviewed ??? common post-operative complaints ??? management of sleep apnea??during hospitalization and post operatively. The importance of post-operative follow-up with Sleep Center after weight loss was stressed. ??? recommendations for psychiatric medications: should continue uninterrupted after surgery ??? activity??post surgery/ return to work recommendations ??? routine BSP post-operative follow-up:?3 weeks. 4 months, 12 months and yearly for LIFE ??? routine Primary Care post-operative follow up:??at 10-14 days after surgery to monitor chronic health problems such as diabetes and hypertension, ??since the requirement for antihypertensive and diabetic medications may decrease or be discontinued ?? Patient advised to contact our office if they develop COVID sx or test positive for COVID. Discussed increased risk of respiratory complications s/p COVID infection.? A preliminary copy of the discharge instructions was provided, which is also available in the patient handbook. ?? Leandra was given the opportunity to ask questions, and all questions were answered. ?? Time spent in counselin minutes ??3:14 PM documented in this encounter Miscellaneous Notes * Initial Assessments - Chacorta Victor RN - 01/13/2023 9:56 AM EST Office of Care Management Initial Assessment Medical record reviewed. Plan of care and patient status discussed with direct care Registered Nurse and/or Care Team in multidisciplinary rounds. Reason for Hospitalization: Lap Renato-en-Y Gastric Bypass Last COVID test: Present on Admission: ? ? Severe obesity (BMI >= 40) Surgery: 01/10 s/p lap Renato-en-Y gastric bypass Hospitalizations Within the Past 30 Days: no previous admission in last 30 days Patient receiving hospital care under IPI- SDP Admission (IP) status. Admission order reviewed. Health/Prescription Coverage: Primary Insurance: [place]ICA[place] Payor: [place] / Plan: [place] PRIMARY CARE PLUS / Product Type: *No Product type* / Secondary Insurance: N/A ; Prescription Coverage: Yes Preferred Pharmacy: [facility] - [place], [place] - [address] [facility] [address] [facility] [address] [facility] [address] [facility] [address] Advance Care Planning: Attempt Cardiopulmonary Resuscitation - Inpatient <no information> -Advanced Directive: Other (Surrogacy: Parents) Current Functional Ability: Independent Functional Status Prior to Admission: Independent Home Environment: Others in the home: significant other. Current Living Arrangements: home/apartment/condo. Accessibility Concerns:none noted. Current DME: none [address] [facility] [id number] Social & Family Supports: Extended Emergency Contact Information Primary Emergency Contact: JAXON BLAKE Address: [address] [place] [address] [facility] [place] Relation: Life Partner Secondary Emergency Contact: Ozzy Granado Address: [address] [facility] Relation: Child Current Care Provided [...] discharge. Plan: Patient to d/c to home without services via car when medically ready. Registered Nurse Brine Maker / Ad Operations Intern will continue to follow patient???s progress and remain available if situation changes for coordination of care, psychosocial support and/or discharge planning. Office of Care Management Chacorta Victor RN RN/CM - Cellphone: [phone] Pager: [phone] Covering Service RN/CM * Op Note - Iram Lee MD - 01/10/2023 2:01 PM EST [facility] Operative Note Patient Name: Leandra Wilks : [id number] MR#: [id number] Case Date: 01/10/2023 Surgeon: Surgeon(s) and Role: * Iram Lee MD - Primary * Natalee Winn MD - Fellow - Assisting * Katherin Kerns MD - Resident Preoperative diagnosis: Morbid Obesity Postoperative diagnosis: Morbid Obesity Procedure(s) (LRB): @LAPAROSCOPIC GASTROPLASTY W/ RENATO-EN-Y CONSTRUCTION (WRVU 29.4) (N/A) EGD, UPPER GI ENDOSCOPY (N/A) Findings: Antecolic, antegastric renato en y gastric bypass. BP limb 40cm, renato limb 75cm. Liver appeared healthy. Anesthesia: General Estimated Blood Loss: 23 mL Specimens removed during surgery: None Drains: [...] details pertinent to this patient.) HPI/Surgical Indications: Leandra Wilks is a 42 y.o. old female who has medically complicated morbid obesity. Body mass index is 40.85 kg/m??.. The patient has mild CHUN, arthritis and GERD as comorbidities of her obesity and meets the NIH criteria for weight reduction surgery as a medical necessity. The patient is taken to the Operating Room today for bariatric surgery. Procedure Description: The patient's identity and informed consent were verified in the pre-operative holding area. Subcutaneous lovenox was administered for DVT prophylaxis. Leandra Wilks was taken to the operating room and placed in Supine position. Bilateral sequential compression devices placed. Anesthesia was induced without complications; see anesthesia record for details. The patient was prepped and draped in sterile fashion. A amaya catheter was placed. Time out was performed and preoperative antibiotics given. A 5mm Kii Fios direct entry port was placed in the periumbilical region under direct vision and theabdomen was insufflated. A 5mm port was then placed in the left lateral abdomen. The remaining ports (5-mm right subcostal, 12-mm right upper quadrant, and 5-mm left upper quadrant) were all placed under direct vision. Omental adhesions in the right lateral abdomen were taken down with a Harmonic device. A Esteban liver retractor was placed through a 5-mm subxiphoid incision. The periumbilical port was then up-sized to an 11mm port. Attention was first turned to the lower abdomen, where the greater omentum and transverse colon were reflected cephalad. Her mesentery was noted to be quite shortened. We attempted to create a retrocolic window but were unable to do so and so the decision was made to perform an antecolic bypass. The defect in the mesocolon was closed with 2-0 Surgidac. We then proceeded in creating the jejunojejunostomy. The proximal jejunum was then measured 40 cm from the ligament of Treitz, at which point itwas divided with a 60mm mcdonough load Endo ALEJANDRO stapler. The mesentery was further divided with a 45mm chowdary load Endo ALEJANDOR stapler. The distal jejunum was then measured 75 cm from the point of transection, and a psyt-gu-fmen jejunojejunostomy was created between this point in the Renato limb and the end of the biliopancreatic limb with a 60mm mcdonough load Endo ALEJANDRO stapler inserted through enterotomies createdwith the ultrasonic dissector. The resulting common enterotomy was closed with another firing of the 60mm mcdonough load Endo ALEJANDRO stapler. The mesenteric defect was closed with a running 2-0 Surgidac suture. The omentum was then divided up to the greater curve of the stomach. Attention was then turned to the left upper quadrant where the Esteban retractor was used to retract the left lobe of the liver and attached to theMartin arm for stability. The gastrohepatic ligament was then divided with the ultrasonic dissector. After gaining entry to the lesser sac, all tubes were removed from the stomach, and the vessels of the lesser curvature of the stomach were divided with a 45mm chowdary load Endo ALEJANDRO stapler. There were significant adhesions along the posterior stomach which had to be taken down. Ultimately these adhesions were freed from the posterior surface of the stomach and we proceeded with pouch creation. Successive firings of the 60mm purple load Endo ALEJANDRO stapler were then used to create a 30 mL gastric pouch from the lesser curvature of the stomach to theangle of His. The angle of His was dissected posteriorly through the lesser sac, prior to applying the final staple load, to ensure complete division of the stomach. The posterior aspect of the gastric pouch was then dissected free from its surrounding tissue in preparation for anastomosis. The Renato limb was then brought up to the pouch. After appropriately orienting the Renato limb, the posterior outer layer of the gastrojejunostomy was fashioned with a running 2-0 Polysorb suture. A gastrotomy and a jejunotomy were then created with the ultrasonic dissector, and a 45mm purple load Endo ALEJANDRO stapler was inserted to 2.5 cm and fired to create the inner layer of the anastomosis. A fiberoptic endoscope was then passed orally and guided across the anastomosis. The gastroenterotomy was then closed with running 2-0 Polysorb suture over the stenting endoscope. The anterior outer layer of the rosalind rojejunostomy was fashioned with a running 2-0 Polysorb suture. A bowel clamp was then placed on the Renato limb, and the anastomosis was endoscopically insufflated under external saline submersion. This did not reveal any evidence of a leak. The endoscopic examination of the anastomosis revealed it to be patent and intact. The bowel was deflated and the endoscope was removed. The bowel clamp was removed. Attention was then once again turned to the lower abdomen where the pseudo-Day's defectwas closed with a running 2-0 Surgidac suture. The fascia of the 12mm port site was closed with #0 Vicryl on a suture passer device. The Nathansonretractor was removed under direct vision. The skin of all incisions was closed with 4-0 Monocryl subcuticular sutures and sealed with Dermabond. Local anesthetic was injected into the port sites forpostoperative analgesia. The patient tolerated the procedure well. All sponge, instrument and needle counts were reported to me as correct. The patient was awoken from anesthesia without complicationand transported to the recovery area in stable condition. Attestation: Case Date: 01/10/2023 I was present and I participated during the entire procedure (does not need to include opening and closing). Iram Lee MD 01/10/2023 Surgical Infection Prevention Bundle Used? N/A documented [...] psychologist to work on eating behaviors Health Junior Copywriter is sending hand-outs with exercises for mindful [...] Name Priority Date/Time Associated Diagnosis Comments HC VENIPUNCTURE Timed 01/12/2023 6:37 AM EST BASIC METABOLIC PANEL (NON-FASTING) Timed 01/12/2023 6:37 AM EST POCT GLUCOSE Routine 01/11/2023 11:54 AM EST URINALYSIS MICROSCOPIC EXAM Routine 01/11/2023 10:28 AM EST URINALYSIS WITH REFLEX CULTURE Routine 01/11/2023 10:28 AM EST HEMOGRAM Timed 01/11/2023 7:00 AM EST DIFFERENTIAL, AUTOMATED Timed 01/11/2023 7:00 AM EST HC CBC,PLT & AUTO DIFF Timed 01/11/2023 7:00 AM EST HEMOGRAM Routine 01/11/2023 12:30 AM EST DIFFERENTIAL, AUTOMATED Routine 01/11/2023 12:30 AM EST HC CBC,PLT & AUTO DIFF Routine 01/11/2023 12:30 AM EST HC PHOSPHORUS, SERUM Routine 01/11/2023 12:30 AM EST HC MAGNESIUM, SERUM Routine 01/11/2023 1 2:30 AM EST BASIC METABOLIC PANEL (NON-FASTING) Routine 01/11/2023 12:30 AM EST Upper GI Endoscopy, Diagnostic (22100) 01/10/2023 1:24 PM EST Class 3 severe obesity with body mass index (BMI) of 40.0 to 44.9 in adult, unspecified obesity type, unspecified whether serious comorbidity present Lap Gastric Bypass/Renato-En-Y (11113) 01/10/2023 1:24 PM EST Class 3 severe obesity with body mass index (BMI) of 40.0 to 44.9 in adult, unspecified obesity type, unspecified whether serious comorbidity present UPPER GI ENDOSCOPY Routine 01/10/2023 12 :08 PM EST Class 3 severe obesity with body mass index (BMI) of 40.0 to 44.9 in adult, unspecified obesity type, unspecified whether serious comorbidity present LAPAROSCOPIC GASTROPLASTY, G\SURG Routine 01/10/2023 12:08 PM EST Class 3 severe obesity with body mass index (BMI) of 40.0 to 44.9 in adult, unspecified obesity type, unspecified whether serious comorbidity present documented in this encounter Results * (ABNORMAL) Basic Metabolic Panel (non-fasting) (01/12/2023 6:37 AM EST) Glucose Lvl 134 65 - 199 mg/dL [facility] Comment:Diabetes: >=200 mg/d L plus symptoms BUN 6(L) 8 - 18 mg/dL [facility] Creatinine 0.64(L) 0.70 - 1.20 mg/dL [facility] Sodium 139 135 - 145 mmol/L [facility] Potassium 3.3(L) 3.5 - 5.0 mmol/L [facility] Comment: Please note: ??Patients with WBC >100,000 may have falsely elevated Potassium levels. ??For accurate Potassium quantification in these patients send serum separator tube (gold top) for subsequent determinations. ??Contact the Clinical Chemistry Laboratory if there are any questions. Chloride 104 98 - 107 mmol/L [facility] CO2 27 22 - 31 mmol/L [facility] Anion Gap 8 5 - 15 mmol/L [facility] Calcium 8.4(L) 8.5 - 10.5 mg/dL [facility] Estimated GFR 112 >=60 mL/min/1. 73 m?? [facility] Comment: This patient's estimated [...] and symptoms in addition to eGFR. Blood 01/12/2023 6:37 AM EST 01/12/2023 6:40 AM EST Narrative Resulting Agency Comment Spec In Lab Iram Lee MD CHEMISTRY ORDERABLES [facility] [place] [address] * (ABNORMAL) Hemogram (01/12/2023 6:37 AM EST) [facility] WBC 9.4 4.0 - 9.5 x10(3)/[facility] [place] LABORATORY RBC 3.71(L) 4.00 - 5.21 x10(6)/[facility] Hemoglobin 11.1(L) 11.7 - 15.5 g/dL [facility] Hematocrit 31.7(L) 35.7 - 45.8 % [facility] MCV 85.4 82.6 - 94.4 [facility] MCH 29.9 27.1 - 32.0 pg [facility] MCHC 35.0 31.7 - 35.0 g/dL [facility] Platelets 293 145 - 357 x10(3)/[facility] [place] [facility] RDWSD 39.7 37.0 - 46.0 [facility] RDWCV 12.9 11.5 - 14.1 % [facility] MPV 9.3 7.6 - 12.9 [facility] nRBC % Auto 0.0 % [facility] nRBC Abs Auto 0.000 0.000 - 0.000 x10(3)/[facility] Blood 01/12/2023 6:37 AM EST 01/12/2023 6:40 AM EST Narrative Resulting Agency Comment Spec In Lab Iram Lee MD HEMATOLOGY ORDERABLE S [facility] [place] [address] * POCT Glucose (01/11/2023 11:54 AM EST) [facility] POC Glucose 104 65 - 199 mg/dL [facility] Comment: Supplemental ranges: <140 mg/dL before meals <180 mg/dL all other times of the day Blood 01/11/2023 11:5 4 AM EST 01/11/2023 11:54 AM EST Iram Lee MD POINT OF CARE TEST O RDERABLES Performing Organization Address City/[facility]/ZIP Co de Phone Number [facility] [place] [address] * (ABNORMAL) Urinalysis Microscopic Exam (01/11/2023 10:28 AM EST) RBC UA 5(H) 0 - 4 /HPF [facility] WBC UA 5 0 - 5 /HPF [facility] Squam Epith UA 6(H) <=4 /HPF [facility] Hyaline Cast UA 2 0 - 2 /LPF [facility] Clean Catch Urine 01/11/2023 10:28 AM EST 01/11/2023 12:11 PM EST Narrative Resulting Agency Comment Spec In Lab Joan GAINES URINE ORDERABLES Performing Organization Address [facility] Co de Phone Number [facility] [place] [address] * (ABNORMAL) Urinalysis with reflex Culture (01/11/2023 10:28 AM EST) Glucose UA Negative Negative mg/dL [facility] Protein UA Negative Negative mg/dL [facility] Bilirubin UA Negative Negative mg/dL [facility] Comment: Clinical correlation required for positive Urine Bilirubin results as false positive may occur with some drugs and drug related products. If a false positive is suspected a serum total bilirubin should be considered if clinically indicated. Urobilinogen UA Normal Normal mg/dL [facility] pH UA 6.0 5.0 - 8.0 [facility] Blood UA Negative Negative mg/dL [facility] Ketones UA 15(A) Negative mg/dL [facility] Nitrite UA Negative Negative [facility] Leukocytes UA Small(A) Negative mcL [facility] Appearance UA Clear Clear [facility] Spec [place] UA 1.020 1.005 - 1.030 [facility] Color UA Yellow Yellow [facility] Culture Reflexed No [facility] Clean Catch Urine 01/11/2023 10:28 AM EST 01/11/2023 12:11 PM EST Narrative Resulting Agency Comment Spec In Lab Iram Lee MD URINE ORDERABLES [facility] [place] [address] * (ABNORMAL) Differential, Automated (01/11/2023 7:00 AM EST) Neutrophils % 86.3 % [facility] Neutr Abs (ANC) 11.15(H) 1.70 - 6.10 x10(3)/mc L [facility] Lymphocytes % 8.7 % [facility] Lymphocytes Abs 1.1 0.9 - 3.2 x10(3)/[facility] Monocytes % 4.6 % [facility] Monocyte Abs 0.6 0.3 - 0.9 x10(3)/[facility] Eosinophils % 0.0 % [facility] Eosinophils Abs 0.0 0.0 - 0.4 x10(3)/[facility] Basophils % 0.1 % [facility] Basophils Abs 0.0 0.0 - 0.1 x10(3)/ L [facility] Immature Gran % 0.30 % [facility] Comment: Immature granulocytes(IG's)percentage and absolute count will include metamyelocytes, myelocytes, and promyelocytes. Blood smears from CBCs yielding IG's will be scanned manually for concordance. If this scan disagrees with the automated IG or if promyelocytes are noted, a manual differential will be performed. Reshma Gran Abs 0.04 0.00 - 0.04 x10(3)/mc L [facility] Blood 01/11/2023 7:00 AM EST 01/11/2023 7:13 AM EST Narrative Resulting Agency Comment Spec In Lab Natalee Winn MD HEMATOLOGY ORDERABLE S [facility] [place] [address] * (ABNORMAL) Hemogram (01/11/2023 7:00 AM EST) WBC 12.9(H) 4.0 - 9.5 x10(3)/[facility] [place] [facility] RBC 3.88(L) 4.00 - 5.21 x10(6)/[facility] Hemoglobin 11.5(L) 11.7 - 15.5 g/dL [facility] Hematocrit 34.3(L) 35.7 - 45.8 % [facility] MCV 88.4 82.6 - 94.4 fL [facility] MCH 29.6 27.1 - 32.0 pg [facility] MCHC 33.5 31.7 - 35.0 g/dL [facility] Platelets 345 145 - 357 x10(3)/[facility] [place] [facility] RDWSD 40.8 37.0 - 46.0 [facility] RDWCV 12.7 11.5 - 14.1 % [facility] MPV 9.5 7.6 - 12.9 fL [facility] nRBC % Auto 0.0 % [facility] nRBC Abs Auto 0.000 0.000 - 0.000 x10(3)/[facility] [place] [facility] Blood 01/11/2023 7:00 AM EST 01/11/2023 7:13 AM EST Narrative Resulting Agency Comment Spec In Lab Natalee Winn MD [place] [address] * (ABNORMAL) Differential, Automated (01/11/2023 12:30 AM EST) Neutrophils % 93.3 % [facility] Neutr Abs (ANC) 12.77(H) 1.70 - 6.10 x10(3)/mc L [facility] Lymphocytes % 4.0 % [facility] Lymphocytes Abs 0.6(L) 0.9 - 3.2 x10(3)/[facility] Monocytes % 2.0 % [facility] Monocyte Abs 0.3 0.3 - 0.9 x10(3)/[facility] Eosinophils % 0.0 % [facility] Eosinophils Abs 0.0 0.0 - 0.4 x10(3)/[facility] Basophils % 0.1 % [facility] Basophils Abs 0.0 0.0 - 0.1 x10(3)/[facility] Immature Gran % 0.60 % [facility] Comment: Immature granulocytes(IG's)percentage and absolute count will include metamyelocytes, myelocytes, and promyelocytes. Blood smears from CBCs yielding IG's will be scanned manually for concordance. If this scan disagrees with the automated IG or if promyelocytes are noted, a manual differential will be performed. Reshma Gran Abs 0.08(H) 0.00 - 0.04 x10(3)/ L [facility] Blood 01/11/2023 12:3 0 AM EST 01/11/2023 12:45 AM EST Narrative Resulting Agency Comment Spec In Lab Natalee Winn MD HEMATOLOGY ORDERABLE S [facility] [place] [address] * (ABNORMAL) Hemogram (01/11/2023 12:30 AM EST) WBC 13.7(H) 4.0 - 9.5 x10(3)/[facility] [place] [facility] RBC 4.02 4.00 - 5.21 x10(6)/[facility] [place] [facility] Hemoglobin 11.9 11.7 - 15.5 g/dL [facility] Hematocrit 35.1(L) 35.7 - 45.8 % [facility] MCV 87.3 82.6 - 94.4 fL [facility] MCH 29.6 27.1 - 32.0 pg [facility] MCHC 33.9 31.7 - 35.0 g/dL [facility] Platelets 334 145 - 357 x10(3)/[facility] [place] [facility] RDWSD 40.5 37.0 - 46.0 [facility] RDWCV 12.7 11.5 - 14.1 % [facility] MPV 9.3 7.6 - 12.9 [facility] nRBC % Auto 0.0 % [facility] nRBC Abs Auto 0.000 0.000 - 0.000 x10(3)/[facility] [place] [facility] Blood 01/11/2023 12:3 0 AM EST 01/11/2023 12:45 AM EST Narrative Resulting Agency Comment Spec In Lab Natalee Winn MD HEMATOLOGY ORDERABLE S [facility] [place] [address] * Phosphorus (01/11/2023 12:30 AM EST) Phosphorus 3.1 2.5 - 4.5 mg/dL [facility] Blood 01/11/2023 12:3 0 AM EST 01/11/2023 12:45 AM EST Narrative Resulting Agency Comment Spec In Lab Natalee Winn MD CHEMISTRY ORDERABLES Performing Organization Address City/[facility]/ZIP Co de Phone Number [facility] [place] [address] * Magnesium (01/11/2023 12:30 AM EST) Magnesium 0.74 0.69 - 1.07 mmol/L [facility] Blood 01/11/2023 12:3 0 AM EST 01/11/2023 12:45 AM EST Narrative Resulting Agency Comment Spec In Lab Natalee Winn MD CHEMISTRY ORDERABLES Performing Organization Address [facility] de Phone Number [facility] [place] [address] * (ABNORMAL) Basic Metabolic Panel (non-fasting) (01/11/2023 12:30 AM EST) Glucose Lvl 203(H) 65 - 199 mg/dL [facility] Comment:Diabetes: >=200 mg/d L plus symptoms BUN 13 8 - 18 mg/dL [facility] Creatinine 0.75 0.70 - 1.20 mg/dL [facility] Sodium 134(L) 135 - 145 mmol/L [facility] Potassium 4.1 3.5 - 5.0 mmol/L [facility] Comment: Please note: ??Patients with WBC >100,000 may have falsely elevated Potassium levels. ??For accurate Potassium quantification in these patients send serum separator tube (gold top) for subsequent determinations. ??Contact the Clinical Chemistry Laboratory if there are any questions. Chloride 100 98 - 107 mmol/L [facility] CO2 22 22 - 31 mmol/L [facility] Anion Gap 12 5 - 15 mmol/L [facility] Calcium 8.7 8.5 - 10.5 mg/dL [facility] Estimated GFR 101 >=60 mL/min/1. 73 m?? [facility] Comment: This patient's estimated [...] and symptoms in addition to eGFR. Blood 01/11/2023 12:3 0 AM EST 01/11/2023 12:45 AM EST Narrative Resulting Agency Comment Spec In Lab Natalee Winn MD CHEMISTRY ORDERABLES [facility] [place] [address] documented in this encounter Visit Diagnoses Diagnosis Severe obesity (BMI >= 40)- Primary Morbid obesity Class 3 severe obesity with body mass index (BMI) of 40.0 to 44.9 in adult, unspecified obesity type, unspecified whether serious comorbidity present documented in this encounter Admitting Diagnoses Diagnosis Severe obesity (BMI >= 40) Morbid obesity documented in this encounter Administered Medications Inactive Administered Medications - up to 3 most recent administrations Medication Order MAR Action Action Date Dose Rate Site acetaminophen (Tylenol) (32.02 mg/mL) oral liquid 1,000 mg 1,000 mg, Oral, EVERY 6 HOURS SCHEDULED, First dose on Sat01/11/23 at 0000, Until Discontinued, Administer starting post-op day one, once tolerating PO Maximum dose of acetaminophen is 3,000 mg from all sources in 24 hours. When ordered for pain, acetaminophen should be given even when other ordered pain medications are indicated., Routine Given 01/11/2023 5:02 AM EST 1,000 mg Given 01/10/2023 11:21 PM EST 1,000 mg acetaminophen (Tylenol) (32.02 mg/mL) oral liquid 975 mg 975 mg, Oral, EVERY 6 HOURS SCHEDULED, First dose on Sat01/12/23 at 0615, Until Discontinued, Maximum dose of acetaminophen is 4,000 mg from all sources in 24 hours. When ordered for pain, acetaminophen should be given even when other ordered pain medications are indicated. , Routine Given 01/13/2023 12:14 PM EST 975 mg Given 01/13/2023 5:49 AM EST 975 mg Given 01/12/2023 11:12 PM EST 975 mg acetaminophen (Tylenol) tablet 1,000 mg 1,000 mg, Oral, ONCE, 1 dose, On Char 01/10/23 at 1230, Maximum dose of acetaminophen is 4,000 mg from all sources in 24 hours. When ordered for pain, acetaminophen should be given even when other ordered pain medications are indicated. , Day of Surgery (Day of Procedure), Routine Given 01/10/2023 12:40 PM EST 1,000 mg acetaminophen (Tylenol) tablet 975 mg 975 mg, Oral, EVERY 6 HOURS SCHEDULED, First dose on Sat01/11/23 at 1500, Until Discontinued, Maximum dose of acetaminophen is 4,000 mg from all sources in 24 hours. When ordered for pain, acetaminophen should be given even when other ordered pain medications are indicated. , Routine Given 01/11/2023 6:38 PM EST 975 mg celecoxib (CeleBREX) capsule 200 mg 200 mg, Oral, 2 TIMES DAILY, First dose on Sat01/11/23 at 0900, Until Discontinued, Administer starting post-op day one. Open capsule and administer all at once., Routine Given 01/13/2023 9:03 AM EST 200 mg Given 01/12/2023 8:50 PM EST 200 mg Given 01/12/2023 8:49 AM EST 200 mg celecoxib (CeleBREX) capsule 400 mg 400 mg, Oral, ONCE, 1 dose, On Char 01/10/23 at 1230, Day of Surgery (Day of Procedure), Routine Given 01/10/2023 12:40 PM EST 400 mg enoxaparin (Lovenox) (40 mg/0.4 mL) subcutaneous injection 40 mg 40 mg, Subcutaneous, ONCE, 1 dose, On Char 01/10/23 at 1230, To be given in preop area, Day of Surgery (Day of Procedure), Routine Given 01/10/2023 1:19 PM EST 4 0 mg enoxaparin (Lovenox) (40 mg/0.4 mL) subcutaneous injection 40 mg 40 mg, Subcutaneous, EVERY 12 HOURS SCHEDULED (2 times per day), First dose on Sat01/11/23 at 0900, Until Discontinued, Routine Given 01/13/2023 9:05 AM EST 40 mg Given 01/12/2023 8:49 PM EST 40 mg Given 01/12/2023 8:48 AM EST 40 mg fentaNYL (pf) (50 mcg/mL) multi-dose injection 50 mcg 50 mcg, Intravenous, EVERY 5 MIN PRN, Starting on Char 01/10/23 at 1810, Until Sat01/10/23 at 2152, Pain, Moderate to severe pain (6-10 out of 10), Hold for respiratory rate less than 10 per minute. Maximum dose 200 mcg over one hour, including OR administration. If ordered with HYDROmorphone or morphine, give HYDROmorphone or morphine first and use fentaNYL for breakthrough pain., PACU Recovery, Routine Given 01/10/2023 8:11 PM EST 50 mcg Given 01/10/2023 8:06 PM EST 50 mcg FLUoxetine (PROzac) (4 mg/mL) oral liquid 20 mg 20 mg, Oral, DAILY, First dose on Sat01/11/23 at 0900, Until Discontinued, Routine Given 01/13/2023 9:03 AM EST 20 mg Given 01/12/2023 8:48 AM EST 20 mg Given 01/11/2023 11:40 AM EST 20 mg HYDROmorphone (Dilaudid) (0.5 mg/0.5 mL) injection syringe 0.5 mg 0.5 mg, Intravenous, EVERY 4 HOURS PRN, Starting on Sat01/10/23 at 2145, Until Sat01/11/23 at 0626, Pain, breakthrough pain, For breakthrough pain not responsive to oxyCODONE or if patient is unable to tolerate PO due to nausea., Routine Given 01/11/2023 3:03 AM EST 0.5 mg HYDROmorphone (Dilaudid) (2 mg/mL) multi-dose injection solution 0.4 mg 0.4 mg, Intravenous, EVERY 10 MIN PRN, Starting on Char 01/10/23 at 1810, Until Sat01/10/23 at 2152, Pain, For Mild to Moderate Pain (1-5 out of 10), Hold for respiratory rate less than 10 per minute. Maximum dose 4 mg over one hour including administrations in the OR. If multiple pain medications are ordered, start with HYDROmorphone or morphine and use fentaNYL for breakthrough pain., PACU Recovery, Routine Given 01/10/2023 7:48 PM EST 0.4 mg Given 01/10/2023 7:38 PM EST 0.4 mg Given 01/10/2023 7:28 PM EST 0.4 mg HYDROmorphone (Dilaudid) (2 mg/mL) multi-dose injection solution 0.6 mg 0.6 mg, Intravenous, EVERY 10 MIN PRN, Starting on Char 01/10/23 at 1810, Until Char 01/10/23 at 2152, Pain, For Moderate to Severe Pain (6-10 out of 10), Hold for respiratory rate less than 10 per minute. Maximum dose 4 mg over one hour including administrations in the OR. If multiple pain medications are ordered, start with HYDROmorphone or morphine and use fentaNYL for breakthrough pain., PACU Recovery, Routine Given 01/10/2023 7:58 PM EST 0.6 mg lactated ringers infusion 1,000 mL, at 125 mL/hr, Intravenous, CONTINUOUS, Starting on Char 01/10/23 at 1945, Until 01/12/23 at 1231 New Bag 01/12/2023 12:39 AM EST 1,000 mLs 125 mL/hr Rate/Dose Verify 01/11/2023 7:27 PM EST 125 mL/ hr New Bag 01/11/2023 11:32 AM EST 1,000 mLs 125 mL/hr lactated ringers infusion 75 mL/hr, Intravenous, CONTINUOUS, Starting on 01/12/23 at 1330, Until 01/13/23 at 1732 New Bag 01/13/2023 5:47 AM EST 75 mL/hr 75 mL /hr New Bag 01/12/2023 5:44 PM EST 75 mL/hr 75 mL/hr lamoTRIgine (LaMICtal) tablet 150 mg 150 mg, Oral, 2 TIMES DAILY, First dose on Sat01/11/23 at 0900, Until Discontinued, Okay to give whole if smaller than an M&M, okay to crush if larger or difficulty swallowing, Routine Given 01/13/2023 9:02 AM EST 150 mg Given 01/12/2023 8:50 PM EST 150 mg Given 01/12/2023 8:48 AM EST 150 mg latanoprost (Xalatan) 0.005 % ophthalmic solution 1 drop 1 drop, Both Eyes, NIGHTLY, First dose on Char 01/10/23 at 2215, Until Discontinued, Routine Given 01/12/2023 8:51 PM EST 1 drop Given 01/11/2023 9:06 PM EST 1 drop lidocaine (Lidoderm) 5% patch 3 patch 3 patch, Transdermal, Administer over 12 Hours, EVERY 24 HOURS, First dose on Sat01/11/23 at 1745, Until Discontinued, Apply patch(es) to abdomen for 12 hours, and then remove for 12 hours., Routine Patch Applied 01/12/2023 5:33 PM EST 3 patches 14- Abdomen (Right) Patch Applied 01/11/2023 6:39 PM EST 3 patches 13- Abdomen (Left) magnesium sulfate 2 g in sterile water 50 mL infusion 2 g, Intravenous, ONCE, 1 dose, On Sat01/11/23 at 0700, Administer over 120 Minutes New Bag 01/11/2023 11:22 AM EST 2 g 25 mL/hr ondansetron (pf) (Zofran) (2 mg/mL) injection 4 mg 4 mg, Intravenous, EVERY 30 MIN PRN, 2 doses, Starting on Char 01/10/23 at 1810, Until Char 01/10/23 at 2152, Nausea, Maximum total dose of 8 mg (including OR administration). If multiple antiemetics ordered, use ondansetron first and if ineffective use prochlorperazine or haloperidoL second and if ineffective use promethazine, PACU Recovery Given 01/10/2023 8:05 PM EST 4 mg ondansetron (pf) (Zofran) (2 mg/mL) injection 4 mg 4 mg, Intravenous, EVERY 8 HOURS SCHEDULED, First dose on Char 01/10/23 at 2215, Until Discontinued, For nausea please use ondansetron as the first choice; prochlorperazine as a second choice; promethazine as a third choice. Call provider if not effective. Given 01/11/2023 2:53 PM EST 4 mg Given 01/11/2023 5:02 AM EST 4 mg Given 01/10/2023 10:05 PM EST 4 mg ondansetron (pf) (Zofran) (2 mg/mL) injection 4 mg 4 mg, Intravenous, EVERY 6 HOURS SCHEDULED, First dose (after last modification) on Sat01/11/23 at 1800, Until Discontinued, For nausea please use ondansetron as the first choice; prochlorperazine as a second choice; promethazine as a third choice. Call provider if not effective. Given 01/13/2023 12:14 PM EST 4 mg Given 01/13/2023 5:49 AM EST 4 mg Given 01/12/2023 11:12 PM EST 4 mg ondansetron (Zofran) tablet 4 mg 4 mg, Oral, EVERY 6 HOURS PRN, Starting on Sat01/13/23 at 1800, Until Sat01/13/23 at 1732, Nausea, Routine oxyCODONE (Roxicodone) (1 mg/mL) oral liquid 5 mg 5 mg, Oral, EVERY 6 HOURS PRN, Starting on Sat01/10/23 at 1922, Until Sat01/11/23 at 1704, Pain, Moderate-Severe pain 4-10, Routine Given 01/11/2023 2:53 PM EST 5 m g Given 01/11/2023 10:41 AM EST 5 mg Given 01/10/2023 11:20 PM EST 5 mg oxyCODONE (Roxicodone) (1 mg/mL) oral liquid 5 mg 5 mg, Oral, EVERY 4 HOURS PRN, Starting on Sat01/11/23 at 1715, Until Sat01/13/23 at 1732, Pain, Moderate-Severe pain 4-10, Routine Given 01/13/2023 9:17 AM EST 5 m g Given 01/13/2023 4:46 AM EST 5 mg Given 01/12/2023 11:12 PM EST 5 mg pantoprazole (Protonix) injection 40 mg 40 mg, Intravenous, DAILY, First dose on Sat01/10/23 at 2045, Until Discontinued, Reconstitute with 10 mL of normal saline to a concentration of 4 mg/mL and infuse slowly over 2 minutes. , Routine Given 01/13/2023 9:03 AM EST 40 mg Given 01/12/2023 8:48 AM EST 40 mg Given 01/11/2023 8:55 AM EST 40 mg potassium chloride 10 mEq in sterile water 100 mL infusion 10 mEq, Intravenous, EVERY HOUR, 4 doses, First dose on 01/12/23 at 0900, Last dose on 01/12/23 at 1200, Administer over 60 Minutes, Warning Vesicant/Irritant Medication New Bag 01/12/2023 3:09 PM EST 10 mEq 100 mL/hr New Bag 01/12/2023 1:30 PM EST 10 mEq 100 mL/hr New Bag 01/12/2023 10:44 AM EST 10 mEq 100 mL/hr prochlorperazine (Compazine) (5 mg/mL) injection 10 mg 10 mg, Intravenous, EVERY 6 HOURS PRN, Starting on Char 01/10/23 at 2145, Until 01/13/23 at 1732, Nausea, Vomiting, For nausea please use ondansetron as the first choice; prochlorperazine as a second choice; promethazine as a third choice. Call provider if not effective., Routine Given 01/11/2023 9:32 PM EST 10 mg Given 01/10/2023 11:26 PM EST 10 mg prochlorperazine (Compazine) (5 mg/mL) injection 5 mg 5 mg, Intravenous, EVERY 30 MIN PRN, 2 doses, Starting on Char 01/10/23 at 1810, Until Char 01/10/23 at 2016, Nausea, Vomiting, If multiple antiemetics ordered, use ondansetron first and if ineffective use prochlorperazine or haloperidoL second and if ineffective use promethazine., PACU Recovery, Routine Given 01/10/2023 8:16 PM EST 5 mg Given 01/10/2023 7:32 PM EST 5 mg promethazine (Phenergan) (25 mg/mL) injection 6.25 mg 6.25 mg, Intravenous, EVERY 30 MIN PRN, Nausea, Starting on Char 01/10/23 at 1810, 2 doses, Until Char 01/10/23 at 2152, Maximum total dose of 12.5 mg (including OR administration). VESICANT - Dilute with a minimum of 10 mL sodium chloride 0.9%. LARGE VEIN only. Inject over 10 minutes into the farthest port of a running IV infusion. Remain with the patient and STOP infusion immediately if patient reports burning. Avoid extravasation. If multiple antiemetics are ordered, use ondansetron first and if ineffective use prochlorperazine or haloperidoL second and if ineffective use promethazine., PACU Recovery Given 01/10/2023 8:10 PM EST 6.25 mg promethazine (Phenergan) (25 mg/mL) injection 6.25 mg 6.25 mg, Intravenous, EVERY 4 HOURS PRN, Nausea, Starting on Char 01/10/23 at 2145, Until 01/13/23 at 1732, For nausea please use ondansetron as the first choice; prochlorperazine as a second choice; promethazine as a third choice. Call provider if not effective. Given 01/11/2023 11:21 AM EST 6.25 mg propranoloL (Inderal) tablet 20 mg 20 mg, Oral, 2 TIMES DAILY, First dose on Sat01/11/23 at 0900, Until Discontinued, Routine Given 01/13/2023 9:02 AM EST 20 mg Given 01/12/2023 8:51 PM EST 20 mg Given 01/12/2023 8:49 AM EST 20 mg scopolamine (Transderm-Scop) 1 mg over 3 days patch 1 patch 1 patch, Transdermal, Administer over 72 Hours, EVERY 72 HOURS, First dose on Sat01/11/23 at 1515, Until Discontinued, Routine Patch Applied 01/11/2023 2:53 PM EST 1 patch 01- Ear Behind (Left) scopolamine (Transderm-Scop) 1 mg patch Patch Verification Transdermal, 2 TIMES DAILY, First dose on Sat01/12/23 at 0300, Until Discontinued, Verify scopolamine 1 mg patch. sodium chloride 0.9 % (flush) (BD PosiFlush Normal Saline 0.9) flush 5 mL 5 mL, Intravenous, 2 TIMES DAILY, First dose on Char 01/10/23 at 2215, Until Discontinued, Recovery (Recovery-Hospital Unit), Routine Given 01/13/2023 9:09 AM EST 5 mLs Given 01/12/2023 8:51 PM EST 5 mLs Given 01/11/2023 8:11 PM EST 5 mLs tamsulosin (Flomax) capsule 0.4 mg 0.4 mg, Oral, DAILY, First dose on Sat01/11/23 at 0900, Until Discontinued, DO NOT CRUSH OR OPEN, Routine Given 01/11/2023 8:53 AM EST 0.4 mg documented in this encounter Active and Recently Administered Medications Times are shown in EST. Scheduled Medication Order 01/11/2023 01/12/2023 01/13/2023 acetaminophen (Tylenol) (32.02 mg/mL) oral liquid 1,000 mg (CANCELED) 1,000 mg, Oral, EVERY 6 HOURS SCHEDULED, First dose on Sat01/11/23 at 0000, Until Discontinued, Administer starting post-op day one, once tolerating PO Maximum dose of acetaminophen is 3,000 mg from all sources in 24 hours. When ordered for pain, acetaminophen should be given even when other ordered pain medications are indicated., Routine 0502 (Given - Provider: Jessica Tam RN)1239 (Not Given - Provider: Antonella Jain RN - Reason: Patient/family refused - Comment: unable to tolerate) acetaminophen (Tylenol) (32.02 mg/mL) oral liquid 975 mg 975 mg, Oral, EVERY 6 HOURS SCHEDULED, First dose on Sat01/12/23 at 0615, Until Discontinued, Maximum dose of acetaminophen is 4,000 mg from all sources in 24 hours. When ordered for pain, acetaminophen should be given even when other ordered pain medications are indicated. , Routine 0542 (Given - Provider: Russ Blanton RN)1122 (Given - Provider: Jill Valle RN)1732 (Given - Provider: Jill Valle RN)2312 (Given - Provider: Russ Blanton RN) 0549 (Given - Provider: Russ Blanton RN)1214 (Given - Provider: Jill Valle, MIKE) acetaminophen (Tylenol) tablet 975 mg (CANCELED) 975 mg, Oral, EVERY 6 HOURS SCHEDULED, First dose on Sat01/11/23 at 1500, Until Discontinued, Maximum dose of acetaminophen is 4,000 mg from all sources in 24 hours. When ordered for pain, acetaminophen should be given even when other ordered pain medications are indicated. , Routine 1838 (Given - Provider: Antonella Jain RN) 0000 (Not Given - Provider: Dayan Candelario RN - Reason: See comment - Comment: Pt reports not able to tolerate pills)0600 (Not Given - Provider: Russ Blanton RN - Reason: Patient/family refused - Comment: MD blued for deo.) celecoxib (CeleBREX) capsule 200 mg 200 mg, Oral, 2 TIMES DAILY, First dose on Sat01/11/23 at 0900, Until Discontinued, Administer starting post-op day one. Open capsule and administer all at once., Routine 0853 (Given - Provider: Antonella Jain RN)1999 (Not Given - Provider: Russ Blanton RN - Reason: See comment - Comment: Pt did not tolerate crushed meds)2019 (Not Given - Provider: Russ Blanton RN - Reason: Patient/family refused) 0849 (Given - Provider: Jill Valle RN)2049 (Given - Provider: Russ Blanton RN) 09 (Given - Provider: Jill Valle RN) enoxaparin (Lovenox) (40 mg/0.4 mL) subcutaneous injection 40 mg 40 mg, Subcutaneous, EVERY 12 HOURS SCHEDULED (2 times per day), First dose on Sat01/11/23 at 0900, Until Discontinued, Routine 1010 (Given - Provider: Antonella Jain RN)2019 (Given - Provider: Russ Blanton RN) 0848 (Given - Provider: Jill Valle RN)2048 (Given - Provider: Russ Blanton RN) 0905 (Given - Provider: Jill Valle RN) FLUoxetine (PROzac) (4 mg/mL) oral liquid 20 mg 20 mg, Oral, DAILY, First dose on Sat01/11/23 at 0900, Until Discontinued, Routine 1140 (Given - Provider: Antonella Jain RN) 0848 (Given - Provider: Jill Valle RN) 0903 (Given - Provider: Jill Valle RN) lamoTRIgine (LaMICtal) tablet 150 mg 150 mg, Oral, 2 TIMES DAILY, First dose on Sat01/11/23 at 0900, Until Discontinued, Okay to give whole if smaller than an M&M, okay to crush if larger or difficulty swallowing, Routine 1148 (Given - Provider: Antonella Jain RN)1999 (Not Given - Provider: Russ Blanton RN - Reason: Patient/family refused - Comment: Pt now refusing whole.)2018 (Not Given - Provider: Russ Blanton RN - Reason: See comment - Comment: Pt didnt tolerate crushed, admin whole) 0848 (Given - Provider: Jill Valle, MIKE)2049 (Given - Provider: Russ Blanton RN) 09 (Given - Provider: Jill Valle RN) latanoprost (Xalatan) 0.005 % ophthalmic solution 1 drop 1 drop, Both Eyes, NIGHTLY, First dose on Sat01/10/23 at 2215, Until Discontinued, Routine 2105 (Given - Provider: Russ Blanton RN) 2050 (Given - Provider: Russ Blanton RN) lidocaine (Lidoderm) 5% patch 3 patch 3 patch, Transdermal, Administer over 12 Hours, EVERY 24 HOURS, First dose on Sat01/11/23 at 1745, Until Discontinued, Apply patch(es) to abdomen for 12 hours, and then remove for 12 hours., Routine 1839 (Patch Applied - Provider: Antonella Jain RN) 0639 (Patch Removed - Provider: Russ Blanton RN)1733 (Patch Applied - Provider: Jill Valle, MIKE) 0533 (Patch Removed - Provider: Russ Blanton RN) magnesium sulfate 2 g in sterile water 50 mL infusion (COMPLETED) 2 g, Intravenous, ONCE, 1 dose, On Sat01/11/23 at 0700, Administer over 120 Minutes 1122 (New Bag - Provider: Antonella Jain RN)1322 (Stopped - Provider: Antonella Jain RN) ondansetron (pf) (Zofran) (2 mg/mL) injection 4 mg (CANCELED) 4 mg, Intravenous, EVERY 8 HOURS SCHEDULED, First dose on Sat01/10/23 at 2215, Until Discontinued, For nausea please use ondansetron as the first choice; prochlorperazine as a second choice; promethazine as a third choice. Call provider if not effective. 0502 (Given - Provider: Jessica M Yonatan, RN)1453 (Given - Provider: Antonella Jain RN) ondansetron (pf) (Zofran) (2 mg/mL) injection 4 mg (CANCELED) 4 mg, Intravenous, EVERY 6 HOURS SCHEDULED, First dose (after last modification) on Sat01/11/23 at 1800, Until Discontinued, For nausea please use ondansetron as the first choice; prochlorperazine as a second choice; promethazine as a third choice. Call provider if not effective. 1837 (Given - Provider: Antonella Jain, MIKE) 0014 (Given - Provider: Dayan Candelario, MIKE)0517 (Given - Provider: Russ Blanton, RN)1119 (Given - Provider: Jill Valle, MIKE)1732 (Given - Provider: Jill Valle, MIKE)2312 (Given - Provider: Russ Blanton, RN) 0549 (Given - Provider: Russ Blanton, MIKE)1214 (Given - Provider: Jill Valle, MIKE) pantoprazole (Protonix) injection 40 mg 40 mg, Intravenous, DAILY, First dose on Char 01/10/23 at 2045, Until Discontinued, Reconstitute with 10 mL of normal saline to a concentration of 4 mg/mL and infuse slowly over 2 minutes. , Routine 0855 (Given - Provider: Antonella Jain RN) 0848 (Given - Provider: Jill Valle, MIKE) 0903 (Given - Provider: Jill Valle, MIKE) potassium chloride 10 mEq in sterile water 100 mL infusion (COMPLETED) 10 mEq, Intravenous, EVERY HOUR, 4 doses, First dose on 01/12/23 at 0900, Last dose on 01/12/23 at 1200, Administer over 60 Minutes, Warning Vesicant/Irritant Medication 0923 (New Bag - Provider: Jill Valle RN)1043 (Stopped - Provider: Jill Valle, MIKE)1044 (New Bag - Provider: Jill Valle, MIKE)1059 (Stopped - Provider: Jill Valle, MIKE)1330 (New Bag - Provider: Jill Valle, MIKE - Comment: infusion slowed for toleranceY with NS for tolerance)1359 (Stopped - Provider: Jill Valle, MIKE)1509 (New Bag - Provider: Jill Valle RN - Comment: titrating for comfort)1745 (Stopped - Provider: Jill Valle RN) propranoloL (Inderal) tablet 20 mg 20 mg, Oral, 2 TIMES DAILY, First dose on Sat01/11/23 at 0900, Until Discontinued, Routine 1147 (Given - Provider: Antonella Jain RN)1999 (Not Given - Provider: Russ Blanton RN - Reason: Patient/family refused - Comment: Pt now refusing whole)2020 (Not Given - Provider: Russ Blanton RN - Reason: See comment - Comment: Pt not able to tolerate meds in applesauce.Will attempt admin whole) 0849 (Given - Provider: Jill Valle RN)2050 (Given - Provider: Russ Blanton RN) 09 (Given - Provider: Jill Valle RN) scopolamine (Transderm-Scop) 1 mg over 3 days patch 1 patch(Linked Group 1) 1 patch, Transdermal, Administer over 72 Hours, EVERY 72 HOURS, First dose on Sat01/11/23 at 1515, Until Discontinued, Routine 1453 (Patch Applied - Provider: Antonella Jain RN) 1530 (Due: Patch Removed - Provider: Automatic Discharge Provider - Comment: Time automatically adjusted from order being discontinued) scopolamine (Transderm-Scop) 1 mg patch Patch Verification(Linked Group 1) Transdermal, 2 TIMES DAILY, First dose on 01/12/23 at 0300, Until Discontinued, Verify scopolamine 1 mg patch. 0300 (Patch (dose and location) verified - Provider: Russ Blanton RN)2100 (Patch (dose and location) verified - Provider: Russ Blanton RN) 0909 (Patch (dose and location) verified - Provider: Jill Valle RN) sodium chloride 0.9 % (flush) (BD PosiFlush Normal Saline 0.9) flush 5 mL 5 mL, Intravenous, 2 TIMES DAILY, First dose on Char 01/10/23 at 2215, Until Discontinued, Recovery (Recovery-Hospital Unit), Routine 0903 (Given - Provider: Antonella Jain RN)2010 (Given - Provider: Russ Blanton RN) 0900 (Not Given - Provider: Jill Valle RN - Reason: See comment - Comment: too large to swollow and unable to open)2050 (Given - Provider: Russ Blanton, MIKE) 0909 (Given - Provider: Jill Valle RN) tamsulosin (Flomax) capsule 0.4 mg 0.4 mg, Oral, DAILY, First dose on Sat01/11/23 at 0900, Until Discontinued, DO NOT CRUSH OR OPEN, Routine 0853 (Given - Provider: Antonella Jain RN) 0850 (Not Given - Provider: Jill Valle RN - Reason: See comment - Comment: too large to swallow and unable to open.) 0903 (Not Given - Provider: Jill Valle RN - Reason: See comment - Comment: too large for swallowing, can not open.) Continuous Medication Order 01/11/2023 01/12/2023 01/13/2023 lactated ringers infusion (CANCELED) 1,000 mL, at 125 mL/hr, Intravenous, CONTINUOUS, Starting on Char 01/10/23 at 1945, Until 01/12/23 at 1231 0308 (New Bag - Provider: Jessica Tam RN)1132 (New Bag - Provider: Antonella Jain, MIKE)1927 (Rate/Dose Verify - Provider: Antonella Jain RN) 0039 (New Bag - Provider: Dayan Candelario RN)0934 (Paused - Provider: Jill Valle RN - Comment: changed to NS for KCl infusions.) lactated ringers infusion 75 mL/hr, Intravenous, CONTINUOUS, Starting on 01/12/23 at 1330, Until 01/13/23 at 1732 1744 (New Bag - Provider: Jill Valle RN) 0547 (New Bag - Provider: Russ Blanton RN)1732 (Due: Stopped) PRN Medication Order 01/11/2023 01/12/2023 01/13/2023 albuteroL (Proventil, Ventolin) (2.5 mg/3 mL) (0.083 %) nebulizer solution 2.5 mg 2.5 mg, Nebulization, EVERY 4 HOURS PRN, Starting on Char 01/10/23 at 2020, Until Sat01/13/23 at 1732, Wheezing, Shortness of Breath, Routine HYDROmorphone (Dilaudid) (0.5 mg/0.5 mL) injection syringe 0.5 mg (CANCELED) 0.5 mg, Intravenous, EVERY 4 HOURS PRN, Starting on Char 01/10/23 at 2145, Until Sat01/11/23 at 0626, Pain, breakthrough pain, For breakthrough pain not responsive to oxyCODONE or if patient is unable to tolerate PO due to nausea., Routine 0303 (Given - Provider: Jessica Tam RN) lidocaine (Xylocaine) 1% (10 mg/mL) injection 3 mg 3 mg (0.3 mL), Subcutaneous, ONCE PRN, 1 dose, Starting on Char 01/10/23 at 2145, Until Sat01/13/23 at 1732, for discomfort with PIV insertion, Recovery (Recovery-Hospital Unit), Routine ondansetron (Zofran) tablet 4 mg 4 mg, Oral, EVERY 6 HOURS PRN, Starting on Sat01/13/23 at 1800, Until Sat01/13/23 at 1732, Nausea, Routine oxyCODONE (Roxicodone) (1 mg/mL) oral liquid 5 mg (CANCELED) 5 mg, Oral, EVERY 6 HOURS PRN, Starting on Char 01/10/23 at 1922, Until Sat01/11/23 at 1704, Pain, Moderate-Severe pain 4-10, Routine 1041 (Given - Provider: Antonella Jain RN)1453 (Given - Provider: Antonella Jain RN) oxyCODONE (Roxicodone) (1 mg/mL) oral liquid 5 mg 5 mg, Oral, EVERY 4 HOURS PRN, Starting on Sat01/11/23 at 1715, Until Sat01/13/23 at 1732, Pain, Moderate-Severe pain 4-10, Routine 1837 (Given - Provider: Antonella Jain RN) 1353 (Given - Provider: Jill Valle RN)1947 (Given - Provider: uRss Blanton RN)2312 (Given - Provider: Russ Blanton RN) 0446 (Given - Provider: Russ Blanton RN)0917 (Given - Provider: Jill Valle RN) prochlorperazine (Compazine) (5 mg/mL) injection 10 mg 10 mg, Intravenous, EVERY 6 HOURS PRN, Starting on Char 01/10/23 at 2145, Until 01/13/23 at 1732, Nausea, Vomiting, For nausea please use ondansetron as the first choice; prochlorperazine as a second choice; promethazine as a third choice. Call provider if not effective., Routine 2131 (Given - Provider: Russ Blanton RN) promethazine (Phenergan) (25 mg/mL) injection 6.25 mg 6.25 mg, Intravenous, EVERY 4 HOURS PRN, Nausea, Starting on Char 01/10/23 at 2145, Until 01/13/23 at 1732, For nausea please use ondansetron as the first choice; prochlorperazine as a second choice; promethazine as a third choice. Call provider if not effective. 1121 (Given - Provider: Antonella Jain RN) sodium chloride 0.9 % (flush) (BD PosiFlush Normal Saline 0.9) flush 5-20 mL 5-20 mL, Intravenous, EVERY 1 MIN PRN, Starting on Char 01/10/23 at 2145, Until 01/13/23 at 1732, flush, Flush pertains to all indwelling lines. Flush per protocol found in the job aid using the link provided on this medication record., Recovery (Recovery-Hospital Unit), Routine Linked Groups Order Group 1: scopolamine (Transderm-Scop) 1 mg over 3 days patch 1 patchJump to med 1 patch, Transdermal, Administer over 72 Hours, EVERY 72 HOURS, First dose on Sat01/11/23 at 1515, Until Discontinued, Routine And scopolamine (Transderm-Scop) 1 mg patch Patch VerificationJump to med Transdermal, 2 TIMES DAILY, First dose on 01/12/23 at 0300, Until Discontinued, Verify scopolamine 1 mg patch. documented in this encounter Care Teams Museum Preparator Relationship Specialty Start Date End Date Sree High APRN [address] [place], [place] [address]Y [facility] [address] [place] [address] PCP - General Family Medicine 12/19/22 documented as of this encounter
--- OUTSIDE RECORDS SUMMARY | 2024-06-01 06:57 | XMS_ITS | Encounter Summary ---
Author Organization [facility] [place] [address] Care Team Providers Care Chief Privacy Officer Name Role Phone Sree High APRN Primary Care Provider [phone]- [phone] Encounter Details Date Type Department Care Team (Late st Contact Info) Description 01/17/2023 Telephone [place] [address] Anni Varela COMPUTER NETWORKING INSTRUCTOR ADJUNCT [facility] [place] [address] Social History Tobacco Use Types Packs/Day Years [...] Telephone Encounter - Anni Varela APRN - 01/17/2023 12:27 PM EST Called patient with Stacey Ly RD to check in. Patient is s/p Saúl en Y gastric bypass on 01/10/23with Dr. Borrero. She has had about 4 oz of fluid and no protein so far today. Her primary obstacle to getting fluids/protein in is feeling full.Endorses nausea. Denies vomiting. Leandra also reports dull ache over her abdomen (no focal pain). No meds thus far today. Has not moved bowels in 2-3 days. Has not started bowel meds (stool softener was recommended). Endorses lightheadedness today and yesterday. Denies syncope/near syncope. Urinating normally (4-5 times thus far today). A/P: Patient 1 week s/p Saúl en Y with low fluid and protein intake limited by feeling full. Though with some nausea and abdominal pain. -Reviewed strategies to increase both fluid and protein intake. -Recommended taking a dose of Zofran. -Recommended taking a dose of liquid Tylenol. -Recommended bowel meds as discussed yesterday. -Reviewed s/s dehydration, patient will seek medical evaluation if any rise. documented in this encounter Plan of Treatment Scheduled Procedures Name Priority Associated Diagnoses Date/Ti me COLONOSCOPY, DIAGNOSTIC (WRV U 3.26) Biliary stricture Screening for colon cancer documented as of this encounter Goals Goal Patient Goal Type Associated Problems Recent Progress Patient-Stated? Author meal timing/food choices Lifestyle On track(2021 10:30 AM EST) Jill Colmenarse APRN Note: Meal timing: consider eating within [...] Lifestyle On track(2021 10:28 AM EST) No Oseas, Jill L, COMPUTER NETWORKING INSTRUCTOR ADJUNCT Note: Mindfulness/deep breathing practice to reduce cortisol -try for at least 10 minutes a day -try an ap such as headspace I have referred you to our psychologist to work on eating behaviors Health Casino Manager is sending hand-outs with exercises for mindful eating, The Pause/STOP and Urge surfing. Patient will review and try implementing some behaviors before we meet again. movement Lifestyle On track(2021 10:29 AM EST) No Jill Farooq, BRYANNA Note: Exercise goal is 150 min [...] on filedocumented in this encounter Care Teams Chief Privacy Officer Relationship Specialty Start Date End Date Sree High APRN [address] [place] [address] [address] [place] [address] PCP - General Family Medicine 12/19/22 documented as of this encounter
--- OUTSIDE RECORDS SUMMARY | 2024-06-01 06:57 | XMS_ITS | Encounter Summary ---
Author Organization [facility] Address [facility] [place] [address] Care Team Providers Care Radio Television Announcer Name Role Phone Sree High APRN Primary Care Provider +1- [phone] Encounter Details Date Type Department Care Team (Late st Contact Info) Description 01/18/2023 Telephone [place] [phone] Anni Varela APRN [facility] [place] [address] Social History Tobacco Use Types Packs/Day Years [...] Telephone Encounter - Anni Varela APRN - 01/18/2023 8:54 AM EST Called patient to check in on protein and fluid goals. No answer. Left message to call back. documented in this encounter Plan of Treatment [...] psychologist to work on eating behaviors Health Laborer [employer] is sending hand-outs with exercises for mindful [...] on filedocumented in this encounter Care Teams Radio Television Announcer Relationship Specialty Start Date End Date Sree High APRN [address] [place] [address] PCP - General Family Medicine 12/19/22 documented as of this encounter
--- OUTSIDE RECORDS SUMMARY | 2024-06-01 06:57 | XMS_ITS | Encounter Summary ---
Author Organization [facility] Address [facility] [place] [address] Care Team Providers Care Band Tier Name Role Phone None Primary Care Provider Unavailabl e Reason for Visit * Psychiatric (Routine) - Closed Specialty Diagnoses / Procedures Referred By Chela doyle Referred To Contact Psychiatry Diagnoses Psychophysiologic insomnia Sharla Kirkland MD [facility] [place] [address] Loli Valerio, PhD [facility] [place] [address] Referral ID Status Reason Start Date Expiration Date V isits Requested Visits Authorized [id number] Closed Consult, Test & Treat 06/07/2022 06/07/2023 1 1 Encounter Details Date Type Department Care Team (Latest Contact Info) Description 12/10/2022 2:00 PM EST TH Visit (TeleHealth) Psychiatry [place] [address] Crystal Ferro, PhD [facility] [place] [address] Insomnia, unspecified type Social History Tobacco Use Types Packs/Day Years Used Date Smoking Tobacco: Never Smokeless Tobacco: Never Sex and Gender Information Value Date Recorded Sex Assigned at Female 10/05/2021 8:56 AM EST Gender Identity Not on file Sexual Orientation Straight 10/05/2021 8: 56 AM EST documented as of this encounter Progress Notes * Crystal Ferro, PhD - 12/10/2022 2:00 PM EST [facility] Psychiatry and Behavioral Health, Behavioral Medicine Service Progress Note: Group Cognitive Behavioral Therapy for Insomnia Time Spent: 60 minutes Number of participants: 5 Leader: Crystal Ferro, PhD This group was conducted via telehealth. During the visit, Leandra was located in [place] at home. SUBJECTIVE: Chief Complaint: Insomnia Disorder, as assessed by DSM5 OBJECTIVE: Interventions/topics: 1. Review of Session 5 Topics 2. Unhelpful Thoughts about Sleep 3. ABCD Model of Thoughts 4. Creating Balanced Thoughts 5. Cognitive Defusion ASSESSMENT: Pertinent Mental Status Exam: WNL Patient's verbal/interpersonal exchange with other participants: appropriate Leandra appeared actively engaged in group, nodding along when others shared their experiences withidentifying and challenging unhelpful thoughts. She left about 15 minutes early, as she stated she was very tired and falling asleep during group. PLAN: Follow-up appointment scheduled for return in 1 Week. Assigned Homework: Continuing: - sleep diary - stimulus control - sleep hygiene - constructive worry - daily relaxation exercises New: - balanced thoughts log Crystal Ferro, PhD documented in this encounter Plan of Treatment Scheduled Procedures Name Priority Associated Diagnoses Date/Ti me COLONOSCOPY, DIAGNOSTIC (WRV U 3.26) Biliary stricture Screening for colon cancer Scheduled Referrals Name Type Priority Associated Diagnoses Order Schedule Referral to Psychiatry Outpatient Referral Routine Psychophysiologic insomnia Ordered: 06/07/2022 documented as of this encounter Goals Goal [...] On track(2021 10:28 AM EST) Jill Colmenares, CIRCULAR SAW FILER Note: Mindfulness/deep breathing practice to reduce cortisol -try for at least 10 minutes a day -try an ap such as headspace I have referred you to our psychologist to work on eating behaviors Health Wrapper Dipper is sending hand-outs with exercises for mindful eating, The Pause/STOP and Urge surfing. Patient will review and try implementing some behaviors before we meet again. movement Lifestyle On track(2021 10:29 AM EST) No Jill Farooq, CIRCULAR SAW FILER Note: Exercise goal is 150 min a [...] as of this encounter Visit Diagnoses Diagnosis Insomnia, unspecified type documented in this encounter Care Teams Band Tier Relationship Specialty Start Date End Date None None PCP - General 06/07/22 12/18/22 documented as of this encounter
--- OUTSIDE RECORDS SUMMARY | 2024-06-01 06:57 | XMS_ITS | Encounter Summary ---
Author Organization [facility] Address [facility] [place] [address] Care Team Providers Care Floor Helper Name Role Phone None Primary Care Provider Unavailabl e Encounter Details Date Type Department Care Team (Latest Contact Info) Description 12/18/2022 Travel Social History Tobacco Use Types Packs/Day [...] psychologist to work on eating behaviors Health Oss Architect is sending hand-outs with exercises for mindful [...] on filedocumented in this encounter Care Teams Floor Helper Relationship Specialty Start Date End Date None None PCP - General 06/07/22 12/18/22 documented as of this encounter
--- OUTSIDE RECORDS SUMMARY | 2024-06-01 06:57 | XMS_ITS | Encounter Summary ---
Author Organization [facility] [place] [address] Care Team Providers Care Healthcare Associate Name Role Phone Sree High APRN Primary Care Provider [phone]- [phone] Reason for Visit * Auth/Cert (Routine) Specialty Diagnoses / Procedures Referred By Contac t Referred To Contact Diagnoses Morbid (severe) obesity due to excess calories Morbid Obesity Procedures PRO LAP GASTRIC BYPASS/RENATO-EN-Y PRO UPPER GI ENDOSCOPY, DIAGNOSTIC @LAPAROSCOPIC GASTROPLASTY W/ RENATO-EN-Y CONSTRUCTION (WRVU 29.4) EGD, UPPER GI ENDOSCOPY Iram Borrero MD [facility] [place] [address] [facility] Referral ID Status Reason Start Date Expiration Date Visits Re quested Visits Authorized [id number] 1 1 Encounter Details Date Type Department Care Team (Late st Contact Info) Description 01/10/2023 1:24 PM EST Anesthesia [place] [address] Monet Banks MD [facility] [place] [address] Twyla Ohara MD [facility] [place] [address] Anesthesia Record Procedure Summary Procedure Name Responsible Anesthesiologist Anesthesia Start Time Anesthesia Stop Time @LAPAROSCOPIC GASTROPLASTY W/ RENATO-EN-Y CONSTRUCTION (WRVU 29.4) (Abdomen) Monet Banks MD 01/10/23 1324 01/10/23 1901 Events Date Time Event Comment 01/10/2023 1324 AN Verify 1324 Start 1324 An Start Data 1330 An Induction 1333 An Intubation 1339 Anesthesia Ready 1400 Quick Note LA administered on the field 1401 Procedure Start 1404 Quick Note Insufflation 1438 Quick Note OG removed from mouth 1515 An Data Art SedLine reading eroneously high PSI due to detecting EKG electrical activity, estimation of SR by time in suppression ~80% 1517 Quick Note Repositioned to steep reverse trendelenburg position 1851 Extubation/LMA Out 185 an stop data 1901 Recovery or ICU Handoff Kamini ent care was transferred to the destination unit staff after review of the patient's medical history, current anesthetic/surgical status and plan, according to the Provider Handoff Checklist. 190 Stop 1903 190 Quick Note Extubation crit eria met including SpO2 > 92%, spontaneous Vt > 5 mL/kg, spontaneous RR > 7 bpm, ETCO2 < 50 mmHg, ETCO2 downtrending towards baseline, full reversal of muscle relaxation, TOF ratio > 90%, intact cough/gag reflexes, and temperature > 35.5 C. Oropharynx suctioned and patient extubated to 6 L of oxygen via facemask without any airway adjuncts. Hemodynamically stable and spontaneous ventilation maintained. Meds Name Total Midazolam 2 mg fentaNYL 200 mcg Propofol 320 mg Propofol INF 2,782.62 mg Dexmedetomidine 32 mcg Rocuronium 130 mg PHENYLephrine 120 mcg Ondansetron 4 mg Dexamethasone 8 mg ceFAZolin (Ancef) 3 g in sodium chloride 0.9% 100 mL infusion 3 g Sugammadex 200 mg lactated ringers infusion 1,000 mL Lactated Ringers 1,000 mL * Agents Name O2 Air N2O Sevoflurane (et) * Blood No blood administrations on file. Lines, Drains, and Airways Type Details Placement Removal ETT Mask Ventilation: Mesfin day (1); ETT Type: Cuffed, Oral; ETT Size: 7.5 mm; Mac Blade: 3; Notes: Asleep, Pre-O2, Cricoid Pressure, Stylette, RSI; Attempts: 1; Laryngoscopy Grade: 1; ETT Placement Verified By: Auscultation, Capnometry, Visual; Secured at Teeth: 21 cm; Inserted by: ZACK Figueroa; Removal Date: 01/10/23; Removal Time: 185001/10/23 1333 by Anthony Magdaleno CRNA 01/10/23 185 by Anthony Magdaleno CRNA (RETIRED) Peripheral IV Line - Single Lumen 01/10/23; 1334; cephalic vein (lateral side of arm), left; hlmi-flf-ylquut catheter system; Anatomical Landmarks; 18 gauge; ZACK Magdaleno; 01/12/23; 0501/10/23 1334 by Anthony Magdaleno CRNA 01/12/23 05 by Russ Flowers RN (RETIRED) Peripheral IV Line - Single Lumen 01/10/23; 1343; metacarpal vein (top of hand), left; yuqy-hdw-ueorag catheter system; Anatomical Landmarks; 18 gauge; Rasta SUGAR CANE PLANTING EQUIPMENT OPERATOR; 1; cephalic vein (lateral side of arm), right; Attempt in right arm by Lev PHILLIPS; site symptomatic, catheter/device intact, removed per policy/procedure; 01/12/23; 1616 01/10/23 1343 by Anthony Magdaleno CRNA 01/12/23 1616 by Jayshree Gaytan RN Incision 01/10/23; 1406; abdo men; laparoscopic punctures (specify) (6 lap port sites); 03/05/23; 18301/10/23 1406 by Lorne Uriostegui RN 03/05/23 183 by Kenyetta Delcid RN Urethral Catheter 01/10/23; 1456; Surg leni longer than 2 hours; indwelling catheter with core temperature probe; latex; 16; inserted at this facility; 1; 10; 10; 01/10/23; 1836 01/10/23 1456 by Lorne Uriostegui RN 01/10/23 183 by Lorne Uriostegui RN documented in this encounter Social History [...] OR Notes * Anesthesia Postprocedure Evaluation - Monet Banks MD - 01/10/2023 7:03 PM EST Department of Anesthesiology Post-procedure Note Patient: Leandra Wilks Procedure Summary Date: 01/10/23 Room / Location: [address] MAIN OR Anesthesia Start: 132 Anesthesia Stop: 1900 Procedures: @LAPAROSCOPIC GASTROPLASTY W/ RENATO-EN-Y CONSTRUCTION (WRVU 29.4) (Abdomen) EGD, UPPER GI ENDOSCOPY Diagnosis: Class 3 severe obesity with body mass index (BMI) of 40.0 to 44.9 in adult, unspecified obesity type, unspecified whether serious comorbidity present (Morbid Obesity) Surgeons: Iram Borrero MD Responsible Provider: Monet Banks MD Anesthesia Type: general ASA Status: 3 All Anesthesia Providers: Anesthesiologist: Monet Banks MD SUGAR CANE PLANTING EQUIPMENT OPERATOR: Anthony Magdaleno CRNA Precision Agronomist: Twyla Ohara MD Vitals Value Taken Time BP 163/96 01/10/23 1900 Temp Pulse 82 01/10/23 1902 Resp 21 01/10/23 1902 SpO2 100 % 01/10/23 190 Pain Level Vitals shown include unvalidated device data. Patient Location: PACU/[facility] Level of Consciousness: Conscious but Sleepy Pain Management: Satisfactory Analgesia PONV: None Cardiovascular Status: At Baseline and Hemodynamically Stable Respiratory Status: Stable Respiratory Status and Supplemental O2 (NC or FM) Postoperative Fluid Status: Intravascular EUvolemia Possible Anesthetic Complications: NONE apparent at time of evaluation Final Primary Anesthesia Type: General (The anesthetic type performed was the same as planned.) Comments: * Anesthesia Preprocedure Evaluation - Twyla Ohara MD - 01/09/2023 9:17 PM EST Pre-Anesthesia Evaluation for: Leandra Wilks a 42 y.o. female. Procedure(s): @LAPAROSCOPIC GASTROPLASTY W/ RENATO-EN-Y CONSTRUCTION (WRVU 29.4) EGD, UPPER GI ENDOSCOPY Patient Active Problem List Diagnosis Date Noted ??? CHUN (obstructive sleep apnea) 01/02/2022 ??? [...] Bilateral ??? CHOLECYSTECTOMY ??? HYSTERECTOMY, VAGINAL 05/12/2015 Social History Tobacco Use ??? Smoking status: Never ??? Smokeless tobacco: Never Substance Use Topics ??? Alcohol use: Not on file Social History Substance and Sexual Activity Drug Use Not on file No Known Allergies Medications: MAR and/or home medications have been reviewed. Physical Exam: Preprocedure Vitals Current as of 01/09/23 2117 No BP, pulse, respiration, SpO2, or temperature recorded. Height: Weight: BMI: IBW: Airway Assessment: Mallampati: I TM distance: >3 FB Neck ROM: full Cardiovascular Assessment: system normal Pulmonary Assessment: unlabored breathing Dental Assessment: - normal exam Misc Assessment: IV access: Peripheral line Last Filed Perioperative Cognitive Screening None Anesthesia Plan: ASA 3 general, with a(n) intravenous induction 42 y.o. female never smoker with a history of morbid obesity (BMI40.8), CHUN, depression / anxiety, mild intermittent asthma on PRN PHANI, glaucoma IBS-D who presents for laparoscopic RnY gastric bypass darrell Borrero. Endorsed some mild heartburn en route, but has been asymptomatic over an hour Past Anesthesia History: - Airway history: no records available - Anesthetic exposures: multiple prior GA - Anesthetic complications: no personal or family hx anesthetic complications NPO status appropriate No Known Allergies PLAN GA / ETT, PIVx1-2 Region - Other Informed Consent: Anesthetic plan and risks discussed with patient. Plan discussed with attending, resident and SUGAR CANE PLANTING EQUIPMENT OPERATOR. Anesthesia Screening documented in this encounter Plan [...] to work on eating behaviors Health Director Risk is sending hand-outs with exercises for [...] MAR Action Action Date Dose Rate Site ceFAZolin (Ancef) 3 g in sodium chloride 0.9% 100 mL infusion 3 g, Intravenous, ONCE, 1 dose, On Char 01/10/23 at 1230, Administer over 30 Minutes, Day of Surgery (Day of Procedure), Indication for (Active or Suspected): Prophylaxis Given 01/10/2023 1:36 PM EST 3 g dexAMETHasone (Decadron) injection Intravenous, PRN, Starting on Char 01/10/23 at 1335, Until Char 01/10/23 at 1901, Anesthesia Intra-op, Routine Given 01/10/2023 1:35 PM EST 8 mg dexmedeTOMIDine (Precedex) (4 mcg/mL) bolus injection (Anesthsia) Intravenous, PRN, Starting on Char 01/10/23 at 1328, Until Char 01/10/23 at 1901, Anesthesia Intra-op, Routine Given 01/10/2023 6:23 PM EST 4 mcg Given 01/10/2023 4:39 PM EST 8 mcg Given 01/10/2023 2:13 PM EST 4 mcg fentaNYL (pf) (50 mcg/mL) multi-dose injection Intravenous, PRN, Starting on Char 01/10/23 at 1328, Until Char 01/10/23 at 1901, Anesthesia Intra-op, Routine Given 01/10/2023 5:37 PM EST 25 mcg Given 01/10/2023 4:09 PM EST 25 mcg Given 01/10/2023 2:19 PM EST 50 mcg lactated ringers infusion 1,000 mL, at 100 mL/hr, Intravenous, CONTINUOUS, Starting on Char 01/10/23 at 1230, Until Char 01/10/23 at 2152, Day of Surgery (Day of Procedure) New Bag 01/10/2023 5:59 PM EST New Bag 01/10/2023 1:24 PM EST lactated ringers infusion Intravenous, CONTINUOUS PRN, Starting on Char 01/10/23 at 1339, Until Char 01/10/23 at 1901, Anesthesia Intra-op New Bag 01/10/2023 1:39 PM EST midazolam (pf) (Versed) (1 mg/mL) multi-dose injection Intravenous, PRN, Starting on Char 01/10/23 at 1324, Until Char 01/10/23 at 1901, Anesthesia Intra-op, Routine Given 01/10/2023 1:24 PM EST 2 mg ondansetron (pf) (Zofran) (2 mg/mL) injection Intravenous, PRN, Starting on Char 01/10/23 at 1751, Until Char 01/10/23 at 1901, Anesthesia Intra-op, Routine Given 01/10/2023 5:51 PM EST 4 mg PHENYLephrine in NS (PF) (JERONIMO-SYNEPHRINE) 0.8 mg/10 mL (80 mcg/mL) multi-dose injection Syrg Intravenous, PRN, Starting on Char 01/10/23 at 1519, Until Char 01/10/23 at 1901, Anesthesia Intra-op, Routine Given 01/10/2023 3:19 PM EST 120 mcg propofoL (Diprivan) (10 mg/mL) infusion Intravenous, CONTINUOUS PRN, Starting on Char 01/10/23 at 1333, Until Char 01/10/23 at 1901, Anesthesia Intra-op, Routine Rate/Dose Change 01/10/2023 6:14 PM EST 100 mcg/kg/min 64.8 mL/hr Rate/Dose Change 01/10/2023 6:02 PM EST 50 mcg/kg/min 32.4 mL/hr Rate/Dose Change 01/10/2023 5:50 PM EST 95 mcg/kg/min 61.5 6 mL/hr propofoL (Diprivan) 10 mg/mL bolus injection (Anesthesia) Intravenous, PRN, Starting on Char 01/10/23 at 1330, Until Char 01/10/23 at 1901, Anesthesia Intra-op Given 01/10/2023 2:13 PM EST 30 mg Given 01/10/2023 1:33 PM EST 40 mg Given 01/10/2023 1:31 PM EST 50 mg rocuronium (Zemuron) (10 mg/mL) multi-dose injection Intravenous, PRN, Starting on Char 01/10/23 at 1330, Until Char 01/10/23 at 1901, Anesthesia Intra-op, Routine Given 01/10/2023 5:56 PM EST 10 mg Given 01/10/2023 4:21 PM EST 10 mg Given 01/10/2023 3:21 PM EST 10 mg sugammadex (Bridion) 100 mg/mL injection Intravenous, PRN, Starting on Char 01/10/23 at 1829, Until Char 01/10/23 at 1901, Anesthesia Intra-op, Routine Given 01/10/2023 6:29 PM EST 200 mg documented in this encounter Care Teams Healthcare Associate Relationship Specialty Start Date End Date Sree High, WIRELESS RETAIL MANAGER [address] [place] [address] PCP - General Family Medicine 12/19/22 documented as of this encounter
--- OUTSIDE RECORDS SUMMARY | 2024-06-01 06:57 | XMS_ITS | Encounter Summary ---
Author Organization [facility] Address [facility] [place] [address] Care Team Providers Care Industrial Design Engineer Name Role Phone Sree High APRN Primary Care Provider +1- [phone] Encounter Details Date Type Department Care Team (Late st Contact Info) Description 01/25/2023 Telephone [place] [id number] Anni Varela APRN [facility] [place] [address] Social History Tobacco Use Types Packs/Day Years [...] Telephone Encounter - Anni Varela APRN - 01/25/2023 9:03 AM EST Called patient to check in on PO intake post bariatric surgery. No answer, LMTCB if any concerns. documented in this encounter Plan of Treatment [...] psychologist to work on eating behaviors Health Mat Puncher is sending hand-outs with exercises for mindful [...] on filedocumented in this encounter Care Teams Industrial Design Engineer Relationship Specialty Start Date End Date Sree High APRN [address] [place] [address] PCP - General Family Medicine 12/19/22 documented as of this encounter
--- OUTSIDE RECORDS SUMMARY | 2024-06-01 06:57 | XMS_ITS | Encounter Summary ---
Author Organization [facility] Address [facility] [place] [address] Care Team Providers Care Transcript Evaluator Name Role Phone Sree High APRN Primary Care Provider +1- [phone] Encounter Details Date Type Department Care Team (Late st Contact Info) Description 01/07/2023 2:30 PM EST Notes Only Weight [facility] Wellness at [facility] [place] [address] Russ Henry Social History Tobacco Use Types Packs/Day Years Used Date Smoking Tobacco: Never Smokeless Tobacco: Never Sex and Gender Information Value Date Recorded Sex Assigned at Female 10/05/2021 8:56 AM EST Gender Identity Not on file Sexual Orientation Straight 10/05/2021 8: 56 AM EST documented as of this encounter Progress Notes * Russ Henry - 01/07/2023 2:30 PM EST Leandra Miguelina Wilks is here today at the request of Jill Farooq for lifestyle coaching for weight control and overall health. Patient shared that she is scheduled for bariatric surgery this week. She feels ready and excited to have this procedure behind her and to move forward. She continues to follow the bariatric behaviorrecommendations. Review specific goals if any from provider Goals ??? meal timing/food choices ?? Meal timing: consider eating within an 8-10 hour eating window, avoid snacking - protein to start, first meal around 9-10 am, snack noon if hungry,: yogurt 2pm: snack such as grapes and cheese, evening meal around 5, limit or eliminate snacking after dinner ?? Try to start your day with some protein ?? will have formal RD visit for individualized dietary plan to address eating behaviors and timing/frequency of meals. ?? Try to eliminate sugar sweetened beverages and artifical sweetener in drinks. ?? Decrease processed food in favor of more whole foods ?? Avoid or limit alcohol ?? Goal 64 ounce of water daily. -great job with this ??? movement ?? Exercise goal is 150 min a week, just do some walking, even [address] to start ?? Recommend resistance training 3 times a week -can use therabands ??? Nutrition - 09/26/22 Nutrition Goals: ??? Continue exercise routine - goal of 150 minutes per week of aerobic exercise (treadmill, walking outside); resistance bands 2-3 times per week (alternate between upper and lower body); explore athome exercise options ??? Choose protein first at all eating events; increase vegetable intake ??? Continue to Practice Bariatric Drinking Behaviors - continue to separate eating and drinking by30 minutes both before and after meal time; water 48- 64oz/day, sip water slowly outside of meal times ??? sleep ?? Follow up with sleep, do sleep study. Goal 7 hours of sleep nightly. ?? Recommend consistent sleep and wake times, avoid electronics within one hour of sleep time ??? stress management ?? Mindfulness/deep breathing practice to reduce cortisol -try for at least 10 minutes a day -try an ap such as headspace ?? I have referred you to our psychologist to work on eating behaviors ?? Health Larry Operator is sending hand-outs with exercises for mindful eating, The Pause/STOP and Urge surfing. Patient will review and try implementing some behaviors before we meet again. Below are guidelines for optimal health that will help you, OVER TIME, to achieve. We do not expectyou to adopt everything all at once or make huge leaps. We don't even expect that you will achieve them all because nobody is perfect! Nutrition: Whole food, quality diet, more plants. (See the back page of your Welcome Book). This robles general recommendation for all patients. Your dietitian and provider will help make more specificrecommendations for you if appropriate. Avoid drinking your calories in the form of fruit juice, soda pop or other sweetened beverages. Choose water. Activity: to maintain weight loss evidence supports 360-420 minutes per week (60min daily). Each week, 1 hour of this time should be divided into 2 or 3 sessions of resistance (weight) training. The rest would be cardio. We do not know the threshold for non-structured activity, but if you are taking about 10,000 steps daily, you may be meeting this goal for cardiac activity. You can build your activity level slowly and methodically. Your Weight&Wellness team will help you develop a plan that works for you. Sleep: 7-8 hours of restful sleep per night with minimal or no interruptions. If this is not happening, talk to your provider about how we can help. Self-monitoring: most people benefit from some form of accountability. This can be: food tracking- either in an marco a or on paper, monitoring weight daily or monthly, exercise tracking. Pick something to track. Stress management: managing stress comes in many different forms from meditation to exercise to simply increasing mindfulness throughout the day. Your health motorcoach operator is well-equipped to guide you to find something to look forward to everyday. Eating behaviors: many people benefit from restricting the hours in which they eat. You can choose an eating window of 8-12 hours to start. Make a pact with yourself that you will not take in anything with caloric content outside this window. Your cassandra architect may make further recommendations documented in this encounter Plan of Treatment [...] psychologist to work on eating behaviors Health Larry Operator is sending hand-outs with exercises for [...] on filedocumented in this encounter Care Teams Transcript Evaluator Relationship Specialty Start Date End Date Sree High APRN [address] [place], [place] [address] [address] [place] [address] PCP - General Family Medicine 12/19/22 documented as of this encounter
--- OUTSIDE RECORDS SUMMARY | 2024-06-01 06:57 | XMS_ITS | Encounter Summary ---
Author Organization [facility] Address [facility] [place] [address] Care Team Providers Care Secondary History Teacher Name Role Phone Sree High APRN Primary Care Provider +1- [phone] Encounter Details Date Type Department Care Team (Late st Contact Info) Description 01/16/2023 Telephone [place] [phone] Iram Borrero MD [facility] [place] [address] Social History Tobacco Use Types Packs/Day Years [...] Telephone Encounter - Iram Borrero MD - 01/16/2023 2:23 PM EST I spoke with Ms. Wilks today. She continues to have trouble with taking in enough fluid. She was unaware that her protein drinks can count toward her fluid goals so we discussed this again. She has also not had a BM in several days so discussed taking stool softeners. I think we should bring her in earlier for a post op check next week. Our team will also follow up with her tomorrow. Iram Borrero MD documented in this encounter [...] psychologist to work on eating behaviors Health Plastics Scientist is sending hand-outs with exercises for mindful [...] on filedocumented in this encounter Care Teams Secondary History Teacher Relationship Specialty Start Date End Date Sree High, BRYANNA [address] [place] [address] PCP - General Family Medicine 12/19/22 documented as of this encounter
--- OUTSIDE RECORDS SUMMARY | 2024-06-01 06:57 | XMS_ITS | Encounter Summary ---
Author Organization [facility] Address [facility] [place] [address] Care Team Providers Care Spanish Speaking Nanny Name Role Phone Sree High APRN Primary Care Provider +1- [phone] Encounter Details Date Type Department Care Team (Latest Contact Info) Description 01/18/2023 Travel Social History Tobacco Use Types Packs/Day [...] psychologist to work on eating behaviors Health Weight Guesser is sending hand-outs with exercises for mindful [...] on filedocumented in this encounter Care Teams Spanish Speaking Nanny Relationship Specialty Start Date End Date Sree High APRN [address] [place] [address] [address] [place] [address] PCP - General Family Medicine 12/19/22 documented as of this encounter
--- OUTSIDE RECORDS SUMMARY | 2024-06-01 06:57 | XMS_ITS | Encounter Summary ---
Author Organization [facility] Address [facility] [place] [address] Care Team Providers Care Block Breaker Operator Name Role Phone Sree High APRN Primary Care Provider +1- [phone] Encounter Details Date Type Department Care Team (Late st Contact Info) Description 01/14/2023 Telephone [place] [phone] [facility] [place] [address] Social History Tobacco Use Types Packs/Day Years [...] encounter Miscellaneous Notes * Telephone Encounter - Stacey Ly RD - 01/14/2023 2:34 PM EST Called pt to discuss protein and fluid intake. Encouraged pt to track intake in [employer] marco a. Reviewed protein and fluid goals. Pt reports she has had 7 oz Qeexo Core Power protein drink (13g pro), a few bites of applesauce, and 24 oz water so fartoday. Encouraged pt to aim for 48 oz fluid and to finish entire protein drink today. Encouraged pt to call back with any additional questions or concerns. documented in this encounter Plan of [...] sleep Lifestyle On track(2021 10:29 AM EST) Jlil Colmenares APRN Note: Follow up with sleep, [...] psychologist to work on eating behaviors Health Sqe is sending hand-outs with exercises for mindful [...] on filedocumented in this encounter Care Teams Block Breaker Operator Relationship Specialty Start Date End Date Sree High, BRYANNA [address] [place] [address] PCP - General Family Medicine 12/19/22 documented as of this encounter
--- OUTSIDE RECORDS SUMMARY | 2024-06-01 06:57 | XMS_ITS | Encounter Summary ---
Author Organization Formerly [facility] [place] [address] Care Team Providers Care Tube Laser Operator Name Role Phone Sree High APRN Primary Care Provider [phone] Reason for Visit * Auth/Cert (Routine) Specialty Diagnoses / Procedures Referred By Chela t Referred To Contact Diagnoses Morbid (severe) obesity due to excess calories Morbid Obesity Procedures PRO LAP GASTRIC BYPASS/RENATO-EN-Y PRO UPPER GI ENDOSCOPY, DIAGNOSTIC @LAPAROSCOPIC GASTROPLASTY W/ RENATO-EN-Y CONSTRUCTION (WRVU 29.4) EGD, UPPER GI ENDOSCOPY Iram Lee MD [facility] [place] [address] [facility] Referral ID Status Reason Start Date Expiration Date Visits Re quested Visits Authorized [id number] 1 1 Encounter Details Date Type Department Care Team (Late st Contact Info) Description 01/10/2023 12:42 PM EST - 01/10/2023 5:27 PM EST Surgery [place] [address] Iram Lee MD [facility] [place] [address] @LAPAROSCOPIC GASTROPLASTY W/ RENATO-EN-Y CONSTRUCTION (WRVU 29.4) Social History Tobacco Use Types Packs/Day Years [...] Sign Reading Time Taken Comments Blood Pressure 112/87 01/10/2023 12:15 PM EST Pulse 76 01/10/2023 12:15 PM EST Temperature 37 ??C (98.6 ??F) 01/10/2023 12:15 PM EST Respiratory Rate 16 01/10/2023 12:15 PM EST Oxygen Saturation 97% 01/10/2023 12:15 PM EST Inhaled Oxygen Concentration - - [...] APRN General Surgery at [facility] Arrive at: Food Safety Technician Area [phone] 04/26/2023 9:[address]; Anita Aviles APRN General Surgery at [facility] Arrive at: Food Safety Technician Area Instructions Given to Patient at Discharge: Patient Instructions Discharge Instructions - Bariatric Surgery NEW PRESCRIPTIONS: ??? net application support specialist at [facility] today: ondansetron (Zofran), omeprazole (Prilosec), [...] - 5pm): General Surgery and Bariatric Surgery [phone] Bariatric Surgeons: Adair Cherry, Cristino [phone] Major Case Detective: [phone] Dietitians: [phone] Outside of regular business hours, including weekends and holidays: Ask for General Surgery resident manager of exhibitions and collections [phone] Please note, this call will be answered [...] Surgery Team in 3 weeks at the [facility] (Food Safety Technician 4L, [facility]). Future Appointments Date Time Provider Department Center 01/30/2023 9:30 AM Anita Aviles APRN [facility] 04/26/2023 9:30 AM Anita Aviles APRN [facility]ARE ??? You have steri-strips and [...] daily. ??? Please call or send a [facility] Support Services message if you do not have a [...] Follow up with primary care provider or social media content specialist in 1-2 weeks in order to [...] APRN General Surgery at [facility] Arrive at: Food Safety Technician Area [phone] 04/26/2023 9:[address]; Anita Aviles APRN General Surgery at [facility] Arrive at: Food Safety Technician Area [phone] Signed: Raul Ho MD [facility] Physician: Sree High APRN [address] [facility] [id number] documented in this encounter Discharge Instructions * Patient Instructions* Natalee Winn MD - 01/11/2023 9:11 AM EST Images from the original note were not included. Discharge Instructions - Bariatric Surgery NEW PRESCRIPTIONS: net application support specialist at [facility] today: ondansetron (Zofran), omeprazole (Prilosec), [...] - 5pm): General Surgery and Bariatric Surgery [phone] Bariatric Surgeons: Adair Cherry, Cristion [phone] Major Case Detective: [phone] Dietitians: [phone] Outside of regular business hours, including weekends and holidays: Ask for General Surgery resident manager of exhibitions and collections [phone] Please note, this call will be answered [...] Surgery Team in 3 weeks at the [facility] (Food Safety Technician 4L, [facility]). Future Appointments Date Time Provider Department Center 01/30/2023 9:30 AM Anita Aviles APRN [facility] 04/26/2023 9:30 AM Anita Aviles APRN [facility] You have steri-strips and Band-Aids [...] twice daily. Please call or send a [facility] Support Services message if you do not have a [...] Follow up with primary care provider or social media content specialist in 1-2 weeks in order to [...] BR. Voiding adequately, +BM today. Surgical sites BULLDOZER OPERATOR with steristrips cdi, no drainage or signs of infection. AVS given andreviewed with patient, questions answered, pt stated understanding. Prescriptions to be picked up at [facility] after discharge. PIV removed by this [...] liquid 975 mg 975 mg Oral Q6H [facility] Raul Ho MD 975 mg at 01/13/23 [...] injection 4 mg 4 mg Intravenous Q6H [facility] Natalee Winn MD 4 mg at 01/13/23 0549 ??? lidocaine (Lidoderm) 5% patch 3 patch 3 patch Transdermal Q24H Natalee Winn MD 3 patch at01/12/23 1733 ??? BUpivacaine (pf) (Marcaine) (2.5 mg/mL) 0.25% injection Once PRN Iram Lee MD 30 mL at01/10/231826 ??? FLUoxetine (PROzac) (4 mg/mL) oral liquid [...] Daily Natalee Winn MD 40 mg at 01/12/2348 ??? prochlorperazine (Compazine) (5 mg/mL) injection 10 [...] Surgery 6:54 AM 01/13/23 MIS service pager: [phone] * Katherin Kerns MD - 01/12/2023 7:40 [...] liquid 975 mg 975 mg Oral Q6H [facility] Raul Ho MD 975 mg at 01/12/23 0542 ??? potassium chloride 10 mEq in sterile water 100 mL infusion 10 mEq Intravenous Q1H Katherin Kerns MD ??? tamsulosin (Flomax) capsule 0.4 mg 0.4 mg Oral Daily Naatlee Winn MD 0.4 mg at 01/11/23 0853 [...] PRN Natalee Winn MD 5 mg at 01/11/23 1837 ??? ondansetron (pf) (Zofran) (2 mg/mL) injection 4 mg 4 mg Intravenous Q6H [facility] Natalee Winn MD 4 mg at 01/12/23 0517 ??? lidocaine (Lidoderm) 5% patch 3 patch 3 patch Transdermal Q24H Natalee Winn MD 3 patch at02/24/23 183 ??? BUpivacaine (pf) (Marcaine) (2.5 mg/mL) 0.25% injection Once PRN Iram Lee MD 30 mL at01/10/237 ??? FLUoxetine (PROzac) (4 mg/mL) oral liquid [...] 0.9) flush 5 mL 5 mL Intravenous BIDNatalee Winn MD 5 mL at 01/11/232010 ??? [...] PRN Natalee Winn MD 10 mg at 01/11/23 2132 ??? promethazine (Phenergan) (25 mg/mL) injection 6.25 [...] Surgery 7:40 AM 01/12/23 MIS service pager: [phone] Associated attestation - Iram Lee MD - [...] liquid 1,000 mg 1,000 mg Oral Q6H [facility] Natalee Winn MD 1,000 mg at 01/11/23 [...] Surgery 8:39 AM 01/11/23 MIS service pager: [phone] Associated attestation - Iram Lee MD - [...] DOB; Age: 4 1980; 42 y.o. Room/Bed: [facility] Today's Date: 01/10/23 Attending: IRAM LEE Procedure: [...] 1999: Bedside handoff report received from previous nurse, Dayan. 2039: Patient's partner, Jaxon, called and I updated him on patient's status. 2104: Patient's son, Abelino [phone], called and I updated him on patient's status. 2129: Patient meets PACU discharge criteria. 2249: Plans for patient to remain in PACU overnight. Transferred from PACU 9 to PACU 21 for comfort and safety. Bedside handoff report given to nurse, Jessica. documented in this encounter H&P Notes * Natalee Winn MD - 01/10/2023 12:43 PM EST Patient Name: Leandra Wilks Patient Age: 42 y.o. Birthdate: 1980 Admit date: 01/10/2023 Attending Physician: Iram Lee MD [facility] Minimally Invasive Surgery Pre-Operative H&P Patient evaluated day of surgery. Please see below for details of patient history as adapted from last clinic visit.No new findings or changes to medical history. No recent illnesses, cough, fever, diarrhea. Plan to proceed with surgery. Natalee Winn MD 01/10/23 12:43 PM MISpager [phone] Leandra attended a comprehensive group pre-operative class today, which included discussion of pre and post operative instructions included in the [facility] Bariatric Surgery Program Education Handbook. The nutrition [...] a Introduction to the [facility] Bariatric Surgery Program seminar, a two hour meeting that provides a program overview as well as expectations. The [facility] Bariatric Surgery Program Educational seminar requirement has been met. The BSP Educational Handbook was provided at visit #1. 2. ??Pre-operative programmatic evaluations??have been done, as noted in previous pathway review. 3. ??Bariatric Surgery Program evaluations with the surgeon and dietitian have taken place. [place] been approved to proceed with surgery by [...] of surgery and post-op routine care/ locations: Admissions/SDP/PACU/4/3/2 [place] units ??? medications that increase the risk [...] days Patient receiving hospital care under [facility]- [facility] Admission (IP) status. Admission order reviewed. Health/Prescription Coverage: Primary Insurance: [place] Payor: [place] / Plan: [place] PRIMARY CARE PLUS / Product Type: *No Product type* / Secondary Insurance: N/A ; Prescription Coverage: Yes Preferred Pharmacy: [facility] - [place], [place] - [address] [facility] [address] [facility] [address] [facility] [address] [facility] [address] Advance Care Planning: Attempt Cardiopulmonary Resuscitation - Inpatient <no information> -Advanced Directive: Other (Surrogacy: Parents) Current Functional Ability: Independent Functional Status Prior to Admission: Independent Home Environment: Others in the home: significant other. Current Living Arrangements: home/apartment/condo. Accessibility Concerns:none noted. Current DME: none [address] [facility] [id number] Social & Family Supports: Extended Emergency Contact Information Primary Emergency Contact: JAXON BLAKE Address: [address] [place] [address] [facility] Mobile Relation: Life Partner Secondary Emergency Contact: Ozzy Granado Address: [address] Relation: Child Current Care Provided by: self [...] via car when medically ready. Registered Nurse Publishing Director / Visual Merchandiser will continue to follow patient???s progress and remain available if situation changes for coordination of care, psychosocial support and/or discharge planning. Office of Care Management Chacorta Victor RN RN/CM - Cellphone: [phone] Pager: [phone] Covering Service RN/CM * Op Note - Iram Lee MD - 01/10/2023 2:01 PM EST [facility] Operative Note Patient Name: Leandra Wilks : [id number] MR#: [id number] Case Date: 01/10/2023 Surgeon: Surgeon(s) and Role: [...] a 45mm chowdary load Endo ALEJANDRO stapler. The distal jejunum was then measured 75 cm from the point of transection, and a [id number] jejunojejunostomy was created between this point in [...] psychologist to work on eating behaviors Health Food Mixer Assembler is sending hand-outs with exercises for [...] training 3 times a week -can use [employer] Nutrition - 09/26/22 Lifestyle On track(2021 10:29 [...] 12:30 AM EST Upper GI Endoscopy, Diagnostic (17692) 01/10/2023 1:24 PM EST Class 3 severe obesity with body mass index (BMI) of 40.0 to 44.9 in adult, unspecified obesity type, unspecified whether serious comorbidity present Lap Gastric Bypass/Renato-En-Y (21317) 01/10/2023 1:24 PM EST Class 3 severe [...] [facility] [place] [address] * (ABNORMAL) Hemogram (01/12/2023 6:37 AM EST) Pathologist [facility] WBC 9.4 4.0 - 9.5 x10(3)/[facility] LABORATORY RBC 3.71(L) 4.00 - 5.21 x10(6)/[facility] LABORATORY Hemoglobin 11.1(L) 11.7 - 15.5 g/dL [facility] Hematocrit 31.7(L) 35.7 - 45.8 % [facility] MCV 85.4 82.6 - 94.4 fL [facility] MCH 29.9 27.1 - 32.0 pg [facility] MCHC 35.0 31.7 - 35.0 g/dL [facility] Platelets 293 145 - 357 x10(3)/[facility] LABORATORY RDWSD 39.7 37.0 - 46.0 [facility] LABORATORY RDWCV 12.9 11.5 - 14.1 % [facility] MPV 9.3 7.6 - 12.9 fL [facility] nRBC % Auto 0.0 % [facility] LAB[facility] nRBC Abs Auto 0.000 0.000 - 0.000 x10(3)/[facility] LABORATORY Blood 01/12/2023 6:37 AM EST 01/12/2023 6:40 AM EST Narrative Resulting Agency Comment Spec In Lab Iram Lee MD HEMATOLOGY ORDERABLE S [facility] [place] [address] * POCT Glucose (01/11/2023 11:54 AM EST) Pathologist [facility] POC Glucose 104 65 - 199 mg/dL [facility] Comment: Supplemental ranges: <140 mg/dL before meals <180 mg/dL all other times of the day Blood 01/11/2023 11:5 4 AM EST 01/11/2023 11:54 AM EST Iram Lee MD POINT OF CARE TEST O RDERABLES Performing Organization Address City/[facility]/ZIP Co de Phone Number [facility] [place] [address] * (ABNORMAL) Urinalysis Microscopic Exam (01/11/2023 10:28 AM EST) RBC UA 5(H) 0 - 4 /HPF [facility] WBC UA 5 0 - 5 /HPF [facility] Squam Epith UA 6(H) <=4 /HPF [facility] Hyaline Cast UA 2 0 - 2 /LPF [facility] Clean Catch Urine 01/11/2023 10:28 AM EST 01/11/2023 12:11 PM EST Narrative Resulting Agency Comment Spec In Lab Joan GAINES URINE ORDERABLES Performing Organization Address [facility]/ZIP Co de Phone Number [facility] [place] [address] * (ABNORMAL) Urinalysis with reflex Culture (01/11/2023 [...] clinically indicated. Urobilinogen UA Normal Normal mg/dL [facility] pH UA 6.0 5.0 - 8.0 [facility] Blood UA Negative Negative mg/dL [facility] Ketones UA 15(A) Negative mg/dL [facility] Nitrite UA Negative Negative [facility] Leukocytes UA Small(A) Negative mcL MAR Y [facility] Appearance UA Clear Clear [facility] Spec [place] UA 1.020 1.005 - 1.030 [facility] Color UA Yellow Yellow [facility] Culture Reflexed No [facility] Clean Catch Urine 01/11/2023 10:28 AM EST 01/11/2023 12:11 PM EST Narrative Resulting Agency Comment Spec In Lab Iram Lee MD URINE ORDERABLES [facility] [place] [address] * (ABNORMAL) Differential, Automated (01/11/2023 7:00 AM EST) Neutrophils % 86.3 % [facility] Neutr Abs (ANC) 11.15(H) 1.70 - 6.10 x10(3)/mc L [facility] Lymphocytes % 8.7 % [facility] Lymphocytes Abs 1.1 0.9 - 3.2 x10(3)/mc L [facility] Monocytes % 4.6 % [facility] Monocyte Abs 0.6 0.3 - 0.9 x10(3)/mc L [facility] Eosinophils % 0.0 % [facility] Eosinophils Abs 0.0 0.0 - 0.4 x10(3)/mc L [facility] Basophils % 0.1 % [facility] Basophils Abs 0.0 0.0 - 0.1 x10(3)/mc L [facility] Reshma Gran Abs 0.04 0.00 - 0.04 x10(3)/ L [facility] Blood 01/11/2023 7:00 AM EST 01/11/2023 7:13 AM EST Narrative Resulting Agency Comment Spec In Lab Natalee Winn MD HEMATOLOGY ORDERABLE S Performing Organization Address City/State/[facility] Co de Phone Number [facility] [place] [address] * (ABNORMAL) Hemogram (01/11/2023 7:00 AM EST) WBC 12.9(H) 4.0 - 9.5 x10(3)/[facility] LABORATORY RBC 3.88(L) 4.00 - 5.21 x10(6)/[facility] LABORATORY Hemoglobin 11.5(L) 11.7 - 15.5 g/dL [...] CENTER LABORATORY Platelets 345 145 - 357 x10(3)/[facility] LABORATORY RDWSD 40.8 37.0 - 46.0 [facility] LABORATORY RDWCV 12.7 11.5 - 14.1 % [facility] MPV 9.5 7.6 - 12.9 [facility] LABORATORY nRBC % Auto 0.0 % [facility] nRBC Abs Auto 0.000 0.000 - 0.000 x10(3)/[facility] LABORATORY Blood 01/11/2023 7:00 AM EST 01/11/2023 7:13 AM EST Narrative Resulting Agency Comment Spec In Lab Natalee Winn MD HEMATOLOGY ORDERABLE S Performing Organization Address City/[facility]/ZIP Co de Phone Number [facility] [place] [address] * (ABNORMAL) Differential, Automated (01/11/2023 12:30 AM EST) Neutrophils % 93.3 % [facility] Neutr Abs (ANC) 12.77(H) 1.70 - 6.10 x10(3)/mc L [facility] Lymphocytes % 4.0 % [facility] Lymphocytes Abs 0.6(L) 0.9 - 3.2 x10(3)/[facility] LABORATORY Monocytes % 2.0 % [facility] Monocyte Abs 0.3 0.3 - 0.9 x10(3)/[facility] LABORATORY Eosinophils % 0.0 % [facility] Eosinophils Abs 0.0 0.0 - 0.4 x10(3)/[facility] LABORATORY Basophils % 0.1 % [facility] Basophils Abs 0.0 0.0 - 0.1 x10(3)/[facility] LABORATORY Immature Gran % 0.60 % [...] MD HEMATOLOGY ORDERABLE S Performing Organization Address [facility]/ZIP Co de Phone Number [facility] [place] [address] * (ABNORMAL) Hemogram (01/11/2023 12:30 AM EST) WBC 13.7(H) 4.0 - 9.5 x10(3)/[facility] LABORATORY RBC 4.02 4.00 - 5.21 x10(6)/[facility] LABORATORY Hemoglobin 11.9 11.7 - 15.5 g/dL [facility] Hematocrit 35.1(L) 35.7 - 45.8 % [facility] MCV 87.3 82.6 - 94.4 fL [facility] MCH 29.6 27.1 - 32.0 pg [facility] MCHC 33.9 31.7 - 35.0 g/dL [facility] Platelets 334 145 - 357 x10(3)/[facility] LABORATORY RDWSD 40.5 37.0 - 46.0 [facility] LABORATORY RDWCV 12.7 11.5 - 14.1 % [facility] MPV 9.3 7.6 - 12.9 [facility] LABORATORY nRBC % Auto 0.0 % [facility] nRBC Abs Auto 0.000 0.000 - 0.000 x10(3)/[facility] LABORATORY Blood 01/11/2023 12:3 0 AM EST 01/11/2023 12:45 AM EST Narrative Resulting Agency Comment Spec In Lab Natalee Winn MD HEMATOLOGY ORDERABLE S [facility] [place] [address] * Phosphorus (01/11/2023 12:30 AM EST) Phosphorus 3.1 2.5 - 4.5 mg/dL [facility] Blood 01/11/2023 12:3 0 AM EST 01/11/2023 12:45 AM EST Narrative Resulting Agency Comment Spec In Lab Natalee Winn MD CHEMISTRY ORDERABLES Performing Organization Address City/[facility]/ZIP Co de Phone Number [facility] [place] [address] * Magnesium (01/11/2023 12:30 AM EST) Pathologist [facility] Magnesium 0.74 0.69 - 1.07 mmol/L [facility] Blood 01/11/2023 12:3 0 AM EST 01/11/2023 12:45 AM EST Narrative Resulting Agency Comment Spec In Lab Natalee Winn MD CHEMISTRY ORDERABLES Performing Organization Address [facility] Co de Phone Number [facility] [place] [address] * (ABNORMAL) Basic Metabolic Panel (non-fasting) (01/11/2023 12:30 AM EST) Pathologist [facility] Glucose Lvl 203(H) 65 - 199 mg/dL [...] [facility] [place] [address] documented in this encounter Visit Diagnoses Diagnosis Class 3 severe obesity with body mass index (BMI) of 40.0 to 44.9 in adult, unspecified obesity type, unspecified whether serious comorbidity present Class 3 severe obesity with body mass [...] Site acetaminophen (Tylenol) (32.02 mg/mL) oral liquid 975 mg 975 mg, Oral, EVERY 6 HOURS SCHEDULED, First dose on 01/12/23 at 0615, Until Discontinued, Maximum dose of acetaminophen is 4,000 mg from all sources in 24 hours. When ordered for pain, acetaminophen should be given even when other ordered pain medications are indicated. , Routine Given 01/13/2023 12:14 PM EST 975 mg Given 01/13/2023 5:49 AM EST 975 mg Given 01/12/2023 11:12 PM EST 975 mg BUpivacaine (pf) (Marcaine) (2.5 mg/mL) 0.25% injection ONCE PRN, Starting on Char 01/10/23 at 1827, Until 01/13/23 at 1732, Intra-Operative (Intra-Procedure), Routine Given 01/10/2023 6:27 PM EST 30 mLs 19- Surgical Site celecoxib (CeleBREX) capsule 200 mg 200 mg, Oral, 2 TIMES DAILY, First dose on Sat01/11/23 at 0900, Until Discontinued, Administer starting post-op day one. Open capsule and administer all at once., Routine Given 01/13/2023 9:03 AM EST 200 mg Given 01/12/2023 8:50 PM EST 200 mg Given 01/12/2023 8:49 AM EST 200 mg enoxaparin (Lovenox) (40 mg/0.4 mL) subcutaneous injection 40 mg 40 mg, Subcutaneous, EVERY 12 HOURS SCHEDULED (2 times per day), First dose on Sat01/11/23 at 0900, Until Discontinued, Routine Given 01/13/2023 9:05 AM EST 40 mg Given 01/12/2023 8:49 PM EST 40 mg Given 01/12/2023 8:48 AM EST 40 mg FLUoxetine (PROzac) (4 mg/mL) oral liquid 20 mg 20 mg, Oral, DAILY, First dose on Sat01/11/23 at 0900, Until Discontinued, Routine Given 01/13/2023 9:03 AM EST 20 mg Given 01/12/2023 8:48 AM EST 20 mg Given 01/11/2023 11:40 AM EST 20 mg lactated ringers infusion 75 mL/hr, Intravenous, CONTINUOUS, [...] on Sat01/10/23 at 2215, Until Discontinued, Routine Given 01/12/2023 [...] PM EST 3 patches 13- Abdomen (Left) ondansetron (Zofran) tablet 4 mg 4 mg, [...] Given 01/11/2023 8:55 AM EST 40 mg prochlorperazine (Compazine) (5 mg/mL) injection 10 mg 10 mg, Intravenous, EVERY 6 HOURS PRN, Starting on Sat01/10/23 at 2145, Until Sat01/13/23 at 1732, Nausea, Vomiting, For nausea please use ondansetron as the first choice; prochlorperazine as a second choice; promethazine as a third choice. Call provider if not effective., Routine Given 01/11/2023 9:32 PM EST 10 mg Given 01/10/2023 11:26 PM EST 10 mg promethazine (Phenergan) (25 mg/mL) injection 6.25 [...] Intravenous, 2 TIMES DAILY, First dose on Sat01/10/23 at 2215, Until Discontinued, Recovery (Recovery-Hospital Unit), [...] Russ Blanton RN)1214 (Given - Provider: Jill Valle RN) acetaminophen (Tylenol) tablet 975 mg (CANCELED) 975 [...] RN - Reason: Patient/family refused - Comment: paged for deo.) celecoxib (CeleBREX) capsule 200 mg [...] RN)2048 (Given - Provider: Russ Blanton RN) 09 (Given - Provider: Jill Valle RN) FLUoxetine (PROzac) (4 mg/mL) oral liquid 20 mg 20 mg, Oral, DAILY, First dose on Sat01/11/23 at 0900, Until Discontinued, Routine 1140 (Given - Provider: Antonella Jain RN) 0848 (Given - Provider: Jill Valle RN) 09 (Given - Provider: Jill Valle RN) lamoTRIgine [...] Patient/family refused - Comment: Pt now refusing whole.)2019 (Not Given - Provider: Russ Blanton RN - Reason: See comment - Comment: Pt didnt tolerate crushed, admin whole) 0848 (Given - Provider: Jill Valle, MIKE)2049 (Given - Provider: Russ Blanton RN) 09 (Given - Provider: Jill Valle, MIKE) latanoprost (Xalatan) 0.005 % ophthalmic solution 1 [...] not effective. 0502 (Given - Provider: Jessica Tam RN)1453 (Given - Provider: Antonella Jain, MIKE) ondansetron (pf) (Zofran) (2 mg/mL) injection 4 mg (CANCELED) 4 mg, Intravenous, EVERY 6 HOURS SCHEDULED, First dose (after last modification) on 01/11/23 at 1800, Until Discontinued, For nausea please use ondansetron as the first choice; prochlorperazine as a second choice; promethazine as a third choice. Call provider if not effective. 1837 (Given - Provider: Antonella Jain, RN) 0014 (Given - Provider: Dayan Candelario RN)0517 (Given - Provider: Russ Blanton, MIKE)1119 (Given - Provider: Jill Valle, MIKE)1732 (Given - Provider: Jill Valle, MIKE)2312 (Given - Provider: Russ Blanton, RN) 0549 (Given - Provider: Russ Blanton, RN)1214 (Given - Provider: Jill Valle, MIKE) pantoprazole [...] Valle, MIKE) 0903 (Given - Provider: Jill Valle RN) potassium chloride 10 mEq in sterile water [...] Valle, MIKE)1330 (New Bag - Provider: Jill Valle RN - Comment: infusion slowed for toleranceY with NS for tolerance)1359 (Stopped - Provider: Jill Valle, MIKE)1509 (New Bag - Provider: Jill Valle RN - Comment: titrating for comfort)1745 (Stopped - Provider: Jill H Tori, RN) propranoloL (Inderal) tablet 20 mg 20 [...] tolerate meds in applesauce.Will attempt admin whole) 08 (Given - Provider: Jill Valle RN)2050 (Given - Provider: Russ Blanton RN) 901 (Given - Provider: Jill Valle, MIKE) scopolamine (Transderm-Scop) 1 mg over 3 days [...] 2215, Until Discontinued, Recovery (Recovery-Hospital Unit), Routine 09 (Given - Provider: Antonella Jain RN)2010 (Given - Provider: Russ Blanton RN) 09 (Not Given - Provider: Jill Valle, MIKE - Reason: See comment - Comment: too large to swollow and unable to open)2050 (Given - Provider: Russ Blanton RN) 0909 (Given - Provider: Jill Valle, MIKE) tamsulosin (Flomax) capsule 0.4 mg 0.4 mg, Oral, DAILY, First dose on Sat01/11/23 at 0900, Until Discontinued, DO NOT CRUSH OR OPEN, Routine 0853 (Given - Provider: Antonella Jain, MIKE) 0850 (Not Given - Provider: Jill Valle [...] Jain, MIKE)1927 (Rate/Dose Verify - Provider: Antonella Jain, RN) 0039 (New Bag - Provider: Dayan Candelario RN)0934 (Paused - Provider: Jill Valle RN - Comment: changed to NS for KCl infusions.) lactated ringers infusion 75 mL/hr, Intravenous, CONTINUOUS, Starting on 01/12/23 at 1330, Until 01/13/23 at 1732 1744 (New Bag - Provider: Jill Valle RN) 0547 (New Bag - Provider: Russ Blanton, MIKE)1732 (Due: Stopped) PRN Medication Order 01/11/2023 01/12/2023 01/13/2023 albuteroL (Proventil, Ventolin) (2.5 mg/3 mL) (0.083 %) nebulizer solution 2.5 mg 2.5 mg, Nebulization, EVERY 4 HOURS PRN, Starting on Char 01/10/23 at 2020, Until 01/13/23 at 1732, Wheezing, Shortness of Breath, Routine [...] 01/10/23 at 2145, Until 01/13/23 at 1732, for discomfort with PIV insertion, Recovery (Recovery-Hospital Unit), Routine ondansetron (Zofran) tablet 4 mg 4 mg, Oral, EVERY 6 HOURS PRN, Starting on 01/13/23 at 1800, Until Sat01/13/23 at 1732, Nausea, [...] PRN, Starting on Sat01/11/23 at 1715, Until 01/13/23 at 1732, Pain, Moderate-Severe pain 4-10, Routine 1837 (Given - Provider: Antonella Jain RN) 1353 (Given - Provider: Jill Valle, MIKE)1947 (Given - Provider: Russ Blanton RN)2312 (Given - Provider: Russ Blanton [...] effective., Routine 2131 (Given - Provider: Russ Blanton, RN) promethazine (Phenergan) (25 mg/mL) injection 6.25 mg 6.25 mg, Intravenous, EVERY 4 HOURS PRN, Nausea, Starting on Char 01/10/23 at 2145, Until 01/13/23 at 1732, For nausea please use ondansetron as the first choice; prochlorperazine as a second choice; promethazine as a third choice. Call provider if not effective. 112 (Given - Provider: Antonella Jain RN) sodium [...] patch. documented in this encounter Care Teams Tube Laser Operator Relationship Specialty Start Date End Date Sree High APRN [address] [place] [address] PCP - General Family Medicine 12/19/22 documented as of this encounter
--- OUTSIDE RECORDS SUMMARY | 2024-06-01 06:57 | XMS_ITS | Encounter Summary ---
Author Organization [facility] Address [facility] [place] [address] Care Team Providers Care Applications Engineer Manufacturing Name Role Phone None Primary Care Provider Unavailabl e Reason for Visit * Psychiatric (Routine) - Closed Specialty Diagnoses / Procedures Referred By Chela doyle Referred To Contact Psychiatry Diagnoses Psychophysiologic insomnia Sharla Kirkland MD [facility] [place] [address] Loli Valerio, PhD [facility] [place] [address] Referral ID Status Reason Start Date Expiration Date V isits Requested Visits Authorized [id number] Closed Consult, Test & Treat 06/07/2022 06/07/2023 1 1 Encounter Details Date Type Department Care Team (Latest Contact Info) Description 12/03/2022 2:00 PM EST TH Visit (TeleHealth) Psychiatry [place] [address] Crystal Ferro, PhD [facility] [place] [address] Insomnia, unspecified type Social History Tobacco Use Types Packs/Day Years Used Date Smoking Tobacco: Never Smokeless Tobacco: Never Sex and Gender Information Value Date Recorded Sex Assigned at Female 10/05/2021 8:56 AM EST Gender Identity Not on file Sexual Orientation Straight 10/05/2021 8: 56 AM EST documented as of this encounter Progress Notes * Crystal Ferro, PhD - 12/03/2022 2:00 PM EST [facility] Psychiatry and Behavioral Health, Behavioral Medicine Service Progress Note: Group Cognitive Behavioral Therapy for Insomnia Time Spent: 60 minutes Number of participants: 4 Leader: Crystal Ferro, Ph.D. This group was conducted via telehealth. During the visit, Leandra was located in [place] at home. SUBJECTIVE: Chief Complaint: Insomnia Disorder, as assessed by DSM5 OBJECTIVE: Interventions/topics: 1. Review of Session 4 Topics 2. Self-talk and automatic thoughts 3. Thoughts, Emotions and Sleep 4. Types of Negative Thinking 5. Completing the ABC Worksheet ASSESSMENT: Pertinent Mental Status Exam: WNL Patient's verbal/interpersonal exchange with other participants: appropriate Leandra listened and participated actively in group. She participated in a conversation about the impact of thoughts on mood and behavior and identified that thoughts putting blame externally/on others can increase frustration and stress. She provided support to other group members. PLAN: Follow-up appointment scheduled for return in 1 week. Assigned Homework: Continuing: - sleep diary - new sleep schedule - stimulus control - sleep hygiene - constructive worry - daily relaxation exercises New: - automatic thought log Crystal Ferro, PhD documented in this [...] psychologist to work on eating behaviors Health Ironworker Apprentice Shop is sending hand-outs with exercises for mindful [...] type documented in this encounter Care Teams Applications Engineer Manufacturing Relationship Specialty Start Date End Date None None PCP - General 06/07/22 12/18/22 documented as of this encounter
--- OUTSIDE RECORDS SUMMARY | 2024-06-01 06:57 | XMS_ITS | Encounter Summary ---
Author Organization [facility] Address [facility] [place] [address] Care Team Providers Care Detail Maker And Fitter Name Role Phone Sree High APRN Primary Care Provider +1- [phone] Encounter Details Date Type Department Care Team (Late st Contact Info) Description 01/28/2023 Telephone [place] [address] Anni Varela CREDIT REPORT CHECKER [facility] [place] [address] Social History Tobacco Use Types Packs/Day Years [...] Telephone Encounter - Anni Varela APRN - 01/28/2023 9:40 AM EDT Called patient to follow up on My message. Leandra reports intake 4 oz fluid and no food yesterday (limited due to pain). Leandra reports she urinated about 4 x yesterday (normal in color). Denies syncope, endorses lightheadedness. Most recent vomiting was Saturday night (after eating 3 seasoned shrimp- medium sized). No ED visit. Leandra has had 3 sips of water so far today. A/P: S/p laparoscopic Saúl-en-Y gastric bypass??on 01/10/23?with continued difficulty with PO intake. -Offered clinic visit for evaluation and IV fluids. Patient prefers to try oral fluids at home. -Encouraged patient to stick to stage 2 diet, then slowly advance. -Will switch tomorrow's appointment from telehealth to in person in case of need for IV fluids. -Reviewed ED precautions. documented in this encounter Plan of Treatment [...] to work on eating behaviors Health Air Drill Operator is sending hand-outs with exercises for [...] on filedocumented in this encounter Care Teams Detail Maker And Fitter Relationship Specialty Start Date End Date Sree High APRN [address] [place] [address] PCP - General Family Medicine 12/19/22 documented as of this encounter
--- OUTSIDE RECORDS SUMMARY | 2024-06-01 06:57 | XMS_ITS | Encounter Summary ---
Author Organization [facility] [place] [address] Care Team Providers Care Production Pattern Maker Name Role Phone Sree High APRN Primary Care Provider +1- [phone] Encounter Details Date Type Department Care Team (Latest Contact Info) Description 01/18/2023 12:00 PM EST Clinical Support [place] [id number] Dehydration; Poor fluid intake Social History Tobacco Use Types Packs/Day Years [...] Sign Reading Time Taken Comments Blood Pressure 141/83 01/18/2023 1:16 PM EST Pulse 71 01/18/2023 1:16 PM EST Temperature 36.3 ??C (97.4 ??F) 01/18/2023 1:16 PM ES T Respiratory Rate 14 01/18/2023 1:16 PM EST Oxygen Saturation 100% 01/18/2023 1:16 PM EST Inhaled Oxygen Concentration - - Weight - - Height - - Body Mass Index - - documented in this encounter Progress Notes * Anni Varela APRN - 01/18/2023 12:00 PM [place] [address] Reason for visit: Bariatric Surgery follow up visit Subjective: Leandra Wilks is s/p Saúl en Y gastric bypass on 01/10/[address] Borrero, she presents today forevaluation of poor PO intake. Leandra reports discomfort with swallowing both food and fluids. Intake is not associated with acute pain (describes discomfort/feeling very full). Thus far today she has had about 4 oz water. She endorses nausea but has not had vomiting outside of last night. Last night she ate raw hamburger and experienced pain and vomiting which led to an ED visit ([facility]). In the ED she underwent abdominal CT scan (though was not able to drink the full volume ofcontrast), labs and received IV fluids. She explains the ED provider said scan was reassuring and plan included follow up with BSP. Full ED encounter was not available at the time of the visit. Has been struggling with postop constipation, though moved her bowels this morning. Patient Active Problem List Diagnosis Code ??? [...] ? Severe obesity (BMI >= 40) E66.01 Review of Systems Constitutional: energy level is low, no systemic illness. GI: as above. Endorsing nausea and constipation. Objective: BP 141/83 (BP Location (NBP): Left arm, Patient Position: Sitting, BP Cuff Sizes: Adult (25-34 cm)) Pulse 71 Temp 36.3 ??C (97.4 ??F) Resp 14 SpO2 100% Physical Exam General: Alert, pleasant, NAD, appears well. Abdomen: Soft, non-distended, non-tender. Trochar sites healing as expected. No heat, drainage. Steri strips intact. Resp: No increased work of breathing. Speaking in full sentences. No cough/wheeze witnessed. Skin: Skin is warm and dry. No rash noted on exam today. No results found for this or any previous visit (from the past 72 hour(s)). Assessment/Plan: 42 y.o. female who is 1 week s/p Saúl-en-Y gastric bypass with poor PO tolerance and recent ED visit after advancing the diet too quickly. Exam WNL, VSS. Labs from OSH reviewed. Symptoms may represent cramp/spasm vs normal post op discomfort. Will continue to monitor for evidence of stricture as healing progresses. ?? Prescribed levsin. Reviewed administration instructions. ?? Reviewed strategies to increase PO intake (antinausea meds, protein drinks, popsickles, bone broth). ?? Reviewed ED precautions. ?? Will plan to follow up by phone next week This patient was seen in conjunction withDr. Borrero as part of a shared visit. Dr. Borrero reviewed labs and CT from yesterday's ED visit (no evidence of acute complication though exam was limited by lack of contrast). Anni Varela APRN RECOMMENDED BARIATRIC SURGERY PROGRAM [...] If labwork is done by the primary furnace caretaker: please send a copy to the Bariatric Surgery Program, General Surgery Clinic, [facility] [place], or fax [phone] * Jammie Chiang RN - 01/18/2023 12:00 PM EST IV fluids started at 13:15 pm. Patient completed IV infusion at 14:50. IV discontinued. Pressure applied to right wrist for 2 minutes, bandaid applied. Pt discharged home in stable condition with her . * Iram Borrero MD - 01/18/2023 12:00 PM EST I saw and evaluated Leandra in clinic. She is s/p lap RNYGB on 01/10/23. She has had dysphagia sincesurgery with nausea and some abdominal pain. She was seen in the ED last night after eating a handful of raw hamburger. Some of it went down but some of it came back up. Aside from this she has not had vomiting. She is hemodynamically stable. She is urinating multiple times a day. I reviewed her labs and imaging from the ED last night. Her Cr was normal as was her Hgb and WBC. Her vitals are normal. Her CT scan did not have PO contrast but looked good. She did have some gas in her remnant stomach but this is of unclear significance given that we don't scan most of these patients 1 week post op and may be normal. I had a talk with her about going slow with her diet progression and explained that our diet advancement guidelines are just a starting point and she may need to go a bit slower. She may benefit from dilation at some point but I would like to wait until she is at least 6 weeks out. Again, her labs and vitals are reassuring that she is not dehydrated and she is able to take in e nough fluids. We will follow up with her next week. Iram Borrero MD documented in this encounter [...] On track(2021 10:28 AM EST) Jill Colmenares, BENCH MOVER Note: Mindfulness/deep breathing practice to reduce cortisol -try for at least 10 minutes a day -try an ap such as headspace I have referred you to our psychologist to work on eating behaviors Health Senior Customer Service Representative is sending hand-outs with exercises for mindful eating, The Pause/STOP and Urge surfing. Patient will review and try implementing some behaviors before we meet again. movement Lifestyle On track(2021 10:29 AM EST) Jill Colmenares, BENCH MOVER Note: Exercise goal is 150 min a [...] as of this encounter Visit Diagnoses Diagnosis Dehydration Poor fluid intake Other symptoms concerning nutrition, metabolism, and development documented in this encounter Care Teams Production Pattern Maker Relationship Specialty Start Date End Date Sree High APRN [address] [place] [address] PCP - General Family Medicine 12/19/22 documented as of this encounter
--- OUTSIDE RECORDS SUMMARY | 2024-06-01 06:57 | XMS_ITS | Encounter Summary ---
Author Organization [facility] [place] [address] Care Team Providers Care Pari Mutuel Ticket Seller Name Role Phone Sree High APRN Primary Care Provider +1- [phone] Encounter Details Date Type Department Care Team (Late st Contact Info) Description 01/21/2023 Telephone [place] [address] Anni Varela DROP WIRE HANGER [facility] [address] Social History Tobacco Use Types Packs/Day Years [...] Telephone Encounter - Anni Varela APRN - 01/21/2023 10:47 AM EST Called patient with Stacey Ly RD to check in on PO intake. Patient s/p Saúl en Y with Dr. Borrero on 01/10/23, has been struggling with poor PO intake since hospital discharge (has required IV fluids x 2). Patient is drinking Gatorade Zero and water, [employer] Power protein drinks. Has also had creamof chicken soup. Still having pain (immediately after eating/drinking) but no vomiting. States Levsin required PA soRx has not yet been filled. Fluid yesterday estimated at 22 ounces. Patient estimates 26 grams protein yesterday. Reports feeling weak, no syncope. Moving bowels regularly (most recent BM yesterday) taking dulcolax daily. Taking compazine BID, nausea well controlled. A/P: Patient s/p RNY with difficult PO intake. -Reviewed strategies to increase intake (broth, pop gricel, setting a timer/reminder to sip). -Follow up in clinic tomorrow as scheduled. -Questions encouraged and answered. documented in this [...] psychologist to work on eating behaviors Health Visual Display Associate is sending hand-outs with exercises for mindful [...] on filedocumented in this encounter Care Teams Pari Mutuel Ticket Seller Relationship Specialty Start Date End Date Sree High APRN [address] [place] [address] PCP - General Family Medicine 12/19/22 documented as of this encounter
--- OUTSIDE RECORDS SUMMARY | 2024-06-01 06:57 | XMS_ITS | Encounter Summary ---
Author Organization [facility] Address [facility] [address] Care Team Providers Care Instructor Dramatic Arts Name Role Phone Sree High APRN Primary Care Provider +1- [phone] Encounter Details Date Type Department Care Team (Late st Contact Info) Description 01/17/2023 Ancillary Procedure [place] [phone] Sree High APRN [address] [place] [address] Social History Tobacco Use Types Packs/Day Years [...] On track(2021 10:28 AM EST) Jill Colmenares, KENO DEALER Note: Mindfulness/deep breathing practice to reduce cortisol -try for at least 10 minutes a day -try an ap such as headspace I have referred you to our psychologist to work on eating behaviors Health Records Officer is sending hand-outs with exercises for mindful eating, The Pause/STOP and Urge surfing. Patient will review and try implementing some behaviors before we meet again. movement Lifestyle On track(2021 10:29 AM EST) Jill Colmenares, KENO DEALER Note: Exercise goal is 150 min a [...] STORAGE ONLY CT ABDOMEN AND PELVIS Routine 01/17/2023 12:00 AM EST documented in this encounter Results * Film Library- Storage Only CT Abdomen & Pelvis (01/17/2023 12:00 AM EST) Narrative DEE - 01/18/2023 1:21 PM EST This exam is auto-finalizing. It's purpose is for storage only. Sree High APRN IMG FILM LIBRARY O RDERABLES [place], [place] documented in this encounter Visit Diagnoses Not on filedocumented in this encounter Care Teams Instructor Dramatic Arts Relationship Specialty Start Date End Date Sree High APRN [address] [place] [address] PCP - General Family Medicine 12/19/22 documented as of this encounter
--- OUTSIDE RECORDS SUMMARY | 2024-06-01 06:57 | XMS_ITS | Encounter Summary ---
Author Organization [facility] Address [facility] [place] [address] Care Team Providers Care Hair Or Beauty Salon Manager Name Role Phone None Primary Care Provider Unavailabl e Reason for Visit * Psychiatric (Routine) - Closed Specialty Diagnoses / Procedures Referred By Chela doyle Referred To Contact Psychiatry Diagnoses Psychophysiologic insomnia Sharla Kirkland MD [facility] [place] [address] Loli Valerio, PhD [facility] [place] [address] Referral ID Status Reason Start Date Expiration Date V isits Requested Visits Authorized [id number] Closed Consult, Test & Treat 06/07/2022 06/07/2023 1 1 Encounter Details Date Type Department Care Team (Latest Contact Info) Description 11/05/2022 2:00 PM EST TH Visit (TeleHealth) Psychiatry [place] [address] Crystal Ferro, PhD [facility] [place] [address] Insomnia, unspecified type Social History Tobacco Use Types Packs/Day Years Used Date Smoking Tobacco: Never Smokeless Tobacco: Never Sex and Gender Information Value Date Recorded Sex Assigned at Female 10/05/2021 8:56 AM EST Gender Identity Not on file Sexual Orientation Straight 10/05/2021 8: 56 AM EST documented as of this encounter Progress Notes * Crystal Ferro, PhD - 11/05/2022 2:00 PM EST [facility] Psychiatry and Behavioral Health, Behavioral Medicine Service Progress Note: Group Cognitive Behavioral Therapy for Insomnia Time Spent: 60 minutes Number of participants: 5 Leader: Crystal Ferro, Ph.D. This group was conducted via telehealth. During the visit, Leandra was located in [place] at home. SUBJECTIVE: Chief Complaint: Insomnia Disorder, as assessed by DSM5 OBJECTIVE: Interventions/topics: 1. Review of Session 2 Topics 2. Review of Sleep Diary and Calculations 3. Adjusting Your Personal Sleep Prescription 4. Sleep Hygiene 5. Relaxation Exercises ASSESSMENT: Pertinent Mental Status Exam: WNL Patient's verbal/interpersonal exchange with other participants: appropriate Leandra did not share at today's group visit but appeared actively engaged in topics. PLAN: Follow-up appointment scheduled for return in 3 weeks due to holidays. Assigned Homework: sleep diary, new sleep schedule, stimulus control, sleep hygiene, & relaxation documented in this encounter Plan of Treatment [...] psychologist to work on eating behaviors Health Law Enforcement Officer is sending hand-outs with exercises for [...] type documented in this encounter Care Teams Hair Or Beauty Salon Manager Relationship Specialty Start Date End Date None None PCP - General 06/07/22 12/18/22 documented as of this encounter
--- OUTSIDE RECORDS SUMMARY | 2024-06-01 06:57 | XMS_ITS | Encounter Summary ---
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 [] skinfold rashes [] chronic wounds Endocrine: [] PCOS [] thyroid disease Heme/Lymph: [] excessive bruising [] lymphadenopathy [] iron deficiency history Allergic/ Immun: [] use of steroid/ immunosuppressant for chronic condition Psychiatric [x] depression [x] anxiety/panic attacks [x] history of suicide attempt [] addiction [x] psychiatric or rehab admissions (remote past, [facility]) Physical exam: Vital signs: Patient Vitals for the past 24 hrs: Temp Pulse Resp BP SpO2 12/18/22 1330 36.6 ??C (97.8 ??F) 67 18 147/81 99 % Body mass index is 40.83 kg/m??. Neuro: Non-focal. Psych: Pleasant, conversant, normal affect, cognition and mood. Behavior:[] defensive [] hostile [] expressive [] quiet [] monopolizing [] argumentative [x] insightful [] insightless[] fidgety [x] motivated [] apathetic [] preoccupied [] negativistic [] disruptive [x] attentive Mood: [x] stable [] labile [] depressed [] happy [] anxious [] hypomanic [] intense [] angry [] worrisome [] flat [] detached [] fearful [] sad Physical Exam Gen: Alert, pleasant, NAD, appears well Resp: Speaking in full sentences, no gasping. No cough witnessed. Skin: No pallor or diaphoresis visible. No rash noted. Psychiatric: normal mood and affect. Assessment/ Plan: 42 y.o. female with morbid obesity with obesity-related comorbidities including CHUN, anxiety disorder, and mild functional limitations/ mild impairment of well being. She has had failure to sustain weight loss by medical management and meets the criteria proposed bythe NIH Consensus Guidelines for surgical treatment of severe obesity and the AACE, TOS, ASMBS Clinical Practice Guidelines for the Perioperative Nutritional, Metabolic and Non-surgical Support of the Bariatric Surgery Patient. She is aware that there are non-surgical methods to achieve weight loss. After review of her medical record, history and physical exam, I find her to be a good candidate for bariatric surgery. She is interested in a Saúl-en-Y gastric bypass. This patient was seen in conjunction with Dr. Borrero as part of a shared visit (consent completed with Dr. Borrero). Pending: ?? Patient will continue to abstain from NSAIDs (patient aware that NSAIDs cannot be taken after RNY). ?? Continue to abstain from night eating. ?? Continue working with therapist. ??? Continue to work on depression (with therapist and PCP), patient will meet with PCP to discuss post op treatment plan for depression. ??? Preoperative Group Class. ??? CBC and CMP within 6 months of surgery, per [facility] accredited bariatric center guidelines. Sending for labs today (including nicotine). ??? Follow up postop with [facility]. ??? Ongoing weight loss encouraged. documented in this encounter Plan of Treatment [...] On track(2021 10:28 AM EST) Jill Colmenares, BORING MACHINE OPERATOR PRODUCTION Note: Mindfulness/deep breathing practice to reduce cortisol -try for at least 10 minutes a day -try an ap such as headspace I have referred you to our psychologist to work on eating behaviors Health Machine Tool Dresser is sending hand-outs with exercises for mindful eating, The Pause/STOP and Urge surfing. Patient will review and try implementing some behaviors before we meet again. movement Lifestyle On track(2021 10:29 AM EST) Jill Colmenares, BORING MACHINE OPERATOR PRODUCTION Note: Exercise goal is 150 min a [...] Name Priority Date/Time Associated Diagnosis Comments HC PCH NICOTINE, SERUM Routine 4:01 PM EST Pre-op evaluation Class 3 severe obesity with body mass index (BMI) of 40.0 to 44.9 in adult, unspecified obesity type, unspecified whether serious comorbidity present HC PARATHYROID HORMONE(PTH INTACT Routine 12/18/2022 3:47 PM EST Pre-op evaluation Class 3 severe obesity with body mass index (BMI) of 40.0 to 44.9 in adult, unspecified obesity type, unspecified whether serious comorbidity present HC HEMOGRAM Routine 12/18/2022 3:47 PM EST Pre-op evaluation Class 3 severe obesity with body mass index (BMI) of 40.0 to 44.9 in adult, unspecified obesity type, unspecified whether serious comorbidity present VITAMIN B1, WHOLE BLOOD Routine 12/18/2022 3:47 PM EST HC IRON BINDING CAPACITY Routine 12/18/2022 3:47 PM EST Pre-op evaluation Class 3 severe obesity with body mass index (BMI) of 40.0 to 44.9 in adult, unspecified obesity type, unspecified whether serious comorbidity present HC VITAMIN D TOTAL-25 HYDROXY Routine 12/18/2022 3:47 PM EST Pre-op evaluation Class 3 severe obesity with body mass index (BMI) of 40.0 to 44.9 in adult, unspecified obesity type, unspecified whether serious comorbidity present HC FOLATE, SERUM Routine 12/18/2022 3:47 PM EST Pre-op evaluation Class 3 severe obesity with body mass index (BMI) of 40.0 to 44.9 in adult, unspecified obesity type, unspecified whether serious comorbidity present HC FERRITIN, SERUM Routine 12/18/2022 3: 47 PM EST Pre-op evaluation Class 3 severe obesity with body mass index (BMI) of 40.0 to 44.9 in adult, unspecified obesity type, unspecified whether serious comorbidity present HC VENIPUNCTURE Routine 12/18/2022 3:47 PM EST Pre-op evaluation Class 3 severe obesity with body mass index (BMI) of 40.0 to 44.9 in adult, unspecified obesity type, unspecified whether serious comorbidity present COMPREHENSIVE METABOLIC PANEL (NON-FASTING) Routine 12/18/2022 3:47 PM EST Pre-op evaluation Class 3 severe obesity with body mass index (BMI) of 40.0 to 44.9 in adult, unspecified obesity type, unspecified whether serious comorbidity present documented in this encounter Results * Nicotine and Metabolites (12/18/2022 4:01 PM EST) Pathologist [facility] Nicotine <3.0 <3.0 ng/mL [facility] Comment: Test Performed by: [facility] [address] Glove Machine Operator: Erlin Orlando M.D. Ph.D.; CLIA# [id number] Cotinine <3.0 <3.0 ng/mL [facility] Comment: ADDITIONAL INFORMATION This test was developed and its performance characteristics determined by [facility] in a manner consistent with CLIA requirements. This test has not been cleared or approved by the U.S. Food and Drug Administration. Test Performed by: [facility] [place] [id number] Glove Machine Operator: Erlin Orlando M.D. Ph.D.; CLIA# [id number] Blood 12/18/2022 4:01 PM EST 12/19/2022 10:26 AM EST Narrative Resulting Agency Comment Spec In Lab Anni E [place] BORING MACHINE OPERATOR PRODUCTION CHEMISTRY ORDERABL ES Performing Organization Address [facility]/ZIP Co de Phone Number [facility] [place] [address] * Vitamin B1, whole blood (12/18/2022 3:47 PM EST) Pathologist [facility] Vit B1 Lvl WB 139 70 - 180 nmol/L [facility] Comment: ADDITIONAL INFORMATION This test was developed and its performance characteristics determined by [facility] in a manner consistent with CLIA requirements. This test has not been cleared or approved by the U.S. Food and Drug Administration. Test Performed by: [facility] - [address] [address] Glove Machine Operator: Erlin Orlando M.D. Ph.D.; CLIA# [id number] Blood Venous Draw / Unknown 12/18/2022 3:47 PM EST 12/19/2022 12:54 PM EST Narrative Resulting Agency Comment Spec In Lab Anni E [place] BORING MACHINE OPERATOR PRODUCTION CHEMISTRY ORDERABL ES Performing Organization Address [facility] Co de Phone Number [facility] [place] [address] * Vitamin B12 (12/18/2022 3:47 PM EST) [facility] Vitamin B-12 309 232 - 1,245 pg/mL [facility] Blood 12/18/2022 3:47 PM EST 12/18/2022 4:01 PM EST Narrative Resulting Agency Comment Spec In Lab Anni E [place] BORING MACHINE OPERATOR PRODUCTION CHEMISTRY ORDERABL ES Performing Organization Address City/[facility]/ZIP Co de Phone Number [facility] [place] [address] * Vitamin D, 25-Hydroxy (12/18/2022 3:47 PM EST) [facility] 25-OH Vit D Total 21 21 - 100 ng/mL [facility] 25-OH Vit D Interp Insufficient [facility] Blood 12/18/2022 3:47 PM EST 12/18/2022 4:01 PM EST Narrative Resulting Agency Comment Spec In Lab Anni E [place] BORING MACHINE OPERATOR PRODUCTION CHEMISTRY ORDERABL ES Performing Organization Address [facility] Co de Phone Number [facility] [place] [address] * PTH (12/18/2022 3:47 PM EST) PTH 42 15 - 65 pg/mL [facility] Blood 12/18/2022 3:47 PM EST 12/18/2022 4:01 PM EST Narrative Resulting Agency Comment Spec In Lab Anni E [place] BORING MACHINE OPERATOR PRODUCTION CHEMISTRY ORDERABL ES Performing Organization Address [facility] Phone Number [facility] [place] [address] * Iron and TIBC (12/18/2022 3:47 PM EST) Pathologist [facility] Iron 100 30 - 150 mcg/dL [facility] TIBC 347 250 - 450 mcg/dL [facility] Iron Saturation 29 20 - 50 % [facility] Blood 12/18/2022 3:47 PM EST 12/18/2022 4:01 PM EST Narrative Resulting Agency Comment Spec In Lab Anni E Nichole BORING MACHINE OPERATOR PRODUCTION CHEMISTRY ORDERABL ES Performing Organization Address [facility] Phone Number [facility] [place] [address] * (ABNORMAL) Hemogram (12/18/2022 3:47 PM EST) Pathologist [facility] WBC 7.9 4.0 - 9.5 x10(3)/[facility] RBC 4.28 4.00 - 5.21 x10(6)/[facility] Hemoglobin 12.8 11.7 - 15.5 g/dL [facility] Hematocrit 36.9 35.7 - 45.8 % [facility] MCV 86.2 82.6 - 94.4 fL [facility] MCH 29.9 27.1 - 32.0 pg [facility] MCHC 34.7 31.7 - 35.0 g/dL [facility] Platelets 380(H) 145 - 357 x10(3)/[facility] LABORATORY RDWSD 40.8 37.0 - 46.0 fL [facility] RDWCV 13.0 11.5 - 14.1 % [facility] MPV 8.8 7.6 - 12.9 [facility] LAB[facility] nRBC % Auto 0.0 % [facility] nRBC Abs Auto 0.000 0.000 - 0.000 x10(3)/[facility] Blood 12/18/2022 3:47 PM EST 12/18/2022 4:01 PM EST Narrative Resulting Agency Comment Spec In Lab Anni E [place] BORING MACHINE OPERATOR PRODUCTION HEMATOLOGY ORDERAB LES Performing Organization Address City/[facility]/ZIP Co de Phone Number [facility] [place] [address] * Folate, serum (12/18/2022 3:47 PM EST) Folate Lvl 11.7 4.8 - 24.2 ng/mL [facility] Blood 12/18/2022 3:47 PM EST 12/18/2022 4:01 PM EST Narrative Resulting Agency Comment Spec In Lab Anni E [place] BORING MACHINE OPERATOR PRODUCTION CHEMISTRY ORDERABL ES Performing Organization Address City/[facility]/ZIP Co de Phone Number [facility] [place] [address] * Ferritin (12/18/2022 3:47 PM EST) Pathologist [facility] Ferritin 106 15 - 150 ng/mL [facility] Comment: Pediatric reference ranges not verified at [facility], interpret with caution. Reference ranges for females greater than 50 years of age approach values for men, i.e., 30-400 ng/mL. Blood 12/18/2022 3:47 PM EST 12/18/2022 4:01 PM EST Narrative Resulting Agency Comment Spec In Lab Anni E Nichoel BORING MACHINE OPERATOR PRODUCTION CHEMISTRY ORDERABL ES [place] [address] * Comprehensive metabolic panel (non-fasting) (12/18/2022 3:47 PM EST) [facility] Glucose Lvl 70 65 - 199 mg/dL [facility] Comment:Diabetes: >=200 mg/d L plus symptoms BUN 15 8 - 18 mg/dL [facility] Creatinine 0.71 0.70 - 1.20 mg/dL [facility] Sodium 139 135 - 145 mmol/L [facility] Potassium 4.0 3.5 - 5.0 mmol/L [facility] Comment: Please note: ??Patients with WBC >100,000 may have falsely elevated Potassium levels. ??For accurate Potassium quantification in these patients send serum separator tube (gold top) for subsequent determinations. ??Contact the Clinical Chemistry Laboratory if there are any questions. Chloride 103 98 - 107 mmol/L [facility] CO2 24 22 - 31 mmol/L [facility] Anion Gap 12 5 - 15 mmol/L [facility] Calcium 9.3 8.5 - 10.5 mg/dL [facility] Total Protein 6.9 6.1 - 8.0 g/dL [facility] Albumin 4.4 3.2 - 5.2 g/dL [facility] AST 16 0 - 30 unit/L [facility] ALT 17 0 - 30 unit/L [facility] Alk Phos 103 35 - 105 unit/L [facility] Total Bilirubin 0.3 0.2 - 1.3 mg/dL [facility] Estimated GFR 107 >=60 mL/min/1. 73 m?? [facility] [...] and symptoms in addition to eGFR. Blood 12/18/2022 3:47 PM EST 12/18/2022 4:01 PM EST Narrative Resulting Agency Comment Spec In Lab Anni Varela APRN CHEMISTRY ORDERABL ES [place] [address] documented in this encounter Visit Diagnoses Diagnosis Pre-op evaluation Preoperative examination, unspecified Class 3 severe obesity with body mass index (BMI) of 40.0 to 44.9 in adult, unspecified obesity type, unspecified whether serious comorbidity present documented in this encounter Care Teams Supervisor Soldering Relationship Specialty Start Date End Date None None PCP - General 06/07/22 12/18/22 documented as of this encounter
--- OUTSIDE RECORDS SUMMARY | 2024-06-01 06:57 | XMS_ITS | Encounter Summary ---
Author Organization [facility] Address [facility] [place] [address] Care Team Providers Care Ultrasonic Solderer Name Role Phone Sree High APRN Primary Care Provider [phone]- [phone] Encounter Details Date Type Department Care Team (Late st Contact Info) Description 01/14/2023 Telephone [place] [id number] Ada Walker, RN Social History Tobacco Use Types Packs/Day [...] encounter Miscellaneous Notes * Telephone Encounter - Ada Walker RN - 01/14/2023 8:58 AM EST S/P sleeve gastrectomy, RNY gastric bypass on: Operations and Procedures: Procedure(s): @LAPAROSCOPIC GASTROPLASTY W/ RENATO-EN-Y CONSTRUCTION (WRVU 29.4) EGD, UPPER GI ENDOSCOPY ?? Surgeons: Surgeon(s) and Role: * Iram Borrero MD - Primary * Natalee Winn MD - Fellow - Assisting * Katherin Kerns MD - Resident ?? Discharged on PO Day #:3 Issues during hospitalization: Nausea, pain, and slow to get out of bed to move Today's phone discussion took place with patient, LKO S. Leandra Wilks was called via phone for post discharge follow up. Diet: stage:11 Fluids : I protein drink and 8 0Z of water Protein: probable 25 gms Other: Nausea/ vomiting: +Nausea taken 2 doses of Odansetron 4mg 8 hrs between doses Urination: adequate, no difficulties Pale yellow Bowels: 2 episodes of watery diarrhea Activity level: she is up and moving around the house. Pain level, analgesia requirements: she has taken one dose of Roxicodone 5mg/5ml and prn tylenol. Any significant changes to comorbidites/ medications (ex DM, HTN): Medications: Currently crushing or taking liquid form of medications, as appropriate: Taking ulcer prevention medication: Omeprazole 40 mg po QD Taking Ursodiol (if appropriate):N/A VTE prophylaxis: enoxaparin: yes/ NA Follow up: PCP appointment: at one month, as scheduled with surgeon and RD Patient questions: answered Recommendations: PT to push fluids as best she can. She was not keeping track of her oz.'s or gm's , we reviewed this and she will follow through on this. We discussed the goal right now is to stay hydrated, and to keep trying to get enough protein. This is hard right now for her due to the nausea but she is working on it. She has our number and will with any questions. She will call me in the morning and I will talk with her about her progress. documented in this encounter Plan of Treatment [...] psychologist to work on eating behaviors Health Assistant Laboratory Director is sending hand-outs with exercises for [...] on filedocumented in this encounter Care Teams Ultrasonic Solderer Relationship Specialty Start Date End Date Sree High, BRYANNA [address] [place] [address] PCP - General Family Medicine 12/19/22 documented as of this encounter
--- OUTSIDE RECORDS SUMMARY | 2024-06-01 06:57 | XMS_ITS | Encounter Summary ---
Author Organization [facility] Address [facility] [place] [address] Care Team Providers Care Hris Developer Name Role Phone None Primary Care Provider Unavailabl e Reason for Visit * Psychiatric (Routine) - Closed Specialty Diagnoses / Procedures Referred By Chela doyle Referred To Contact Psychiatry Diagnoses Psychophysiologic insomnia Sharla Kirkland MD [facility] [place] [address] Loli Valerio, PhD [facility] [place] [address] Referral ID Status Reason Start Date Expiration Date V isits Requested Visits Authorized [id number] Closed Consult, Test & Treat 06/07/2022 06/07/2023 1 1 Encounter Details Date Type Department Care Team (Latest Contact Info) Description 12/17/2022 2:00 PM EST TH Visit (TeleHealth) Psychiatry [place] [address] Crystal Ferro, PhD [facility] [place] [address] Insomnia, unspecified type Social History Tobacco Use Types Packs/Day Years Used Date Smoking Tobacco: Never Smokeless Tobacco: Never Sex and Gender Information Value Date Recorded Sex Assigned at Female 10/05/2021 8:56 AM EST Gender Identity Not on file Sexual Orientation Straight 10/05/2021 8: 56 AM EST documented as of this encounter Progress Notes * Crystal Ferro, PhD - 12/17/2022 2:00 PM EST [facility] Psychiatry and Behavioral Health, Behavioral Medicine Service Progress Note: Group Cognitive Behavioral Therapy for Insomnia Time Spent: 60 minutes Number of participants: 5 Leaders: Crystal Ferro, Ph.D. This group was conducted via telehealth. During the visit, Leandra was located in [place] at home. SUBJECTIVE: Chief Complaint: Insomnia Disorder, as assessed by DSM5 OBJECTIVE: Interventions/topics: 1. Review of Session 7 Topics 2. Practicing Mindfulness 3. Relapse Prevention ASSESSMENT: Pertinent Mental Status Exam: WNL Individual Reports/Experiences: Leandra evidenced normal affect and appropriate interactions with other participants in the group. She was engaged with the group material. Leandra appeared engaged throughout group. She reflected on what was most helpful for her from group skills and noted the worry time skill has been particularly important in helping her manage anxiety and worry before bed. PLAN: No further visits scheduled. Today was our final group visit. documented in this encounter Plan of Treatment [...] psychologist to work on eating behaviors Health Cattle Examiner is sending hand-outs with exercises for mindful [...] type documented in this encounter Care Teams Hris Developer Relationship Specialty Start Date End Date None None PCP - General 06/07/22 12/18/22 documented as of this encounter
--- OUTSIDE RECORDS SUMMARY | 2024-06-01 06:57 | XMS_ITS | Encounter Summary ---
Author Organization [facility] Address [facility] [place] [address] Care Team Providers Care Project Executive Name Role Phone Sree High APRN Primary Care Provider +1- [phone] Encounter Details Date Type Department Care Team (Latest Contact Info) Description 12/19/2022 Travel Social History Tobacco Use Types Packs/Day [...] psychologist to work on eating behaviors Health Overhauler is sending hand-outs with exercises for mindful [...] on filedocumented in this encounter Care Teams Project Executive Relationship Specialty Start Date End Date Sree High APRN [address] [place] [address] PCP - General Family Medicine 12/19/22 documented as of this encounter
--- OUTSIDE RECORDS SUMMARY | 2024-06-01 06:57 | XMS_ITS | Encounter Summary ---
Author Organization [facility] Address [facility] [place] [address] Care Team Providers Care Volcanologist Name Role Phone Sree High APRN Primary Care Provider +1- [phone] Encounter Details Date Type Department Care Team (Late st Contact Info) Description 01/21/2023 Telephone [place] [phone] Blaire Escobar RN Social History Tobacco Use Types [...] Telephone Encounter - Blaire Quintero RN - 01/21/2023 12:16 PM EST We received a fax stating that the Prior Authorization for hyoscyamine is not required for the following reasons: The specific drug or drug dose is listed as preferred under the PA program at this time and does not require prior authorization. [place] Tracking number:[id number] I faxed that letter to the [facility] in [facility] ([phone]) * Telephone Encounter - Blaire Escobar RN - 01/21/2023 8:09 AM EST Received fax from [facility]: hyoscyamine requires prior auth from pt's insurance. Initiated PA via [employer] (macias: [id number]). Awaiting response. documented in this encounter Plan of Treatment [...] psychologist to work on eating behaviors Health Winder Contort Operator is sending hand-outs with exercises for [...] on filedocumented in this encounter Care Teams Volcanologist Relationship Specialty Start Date End Date Sree High APRN [address] [place] [address] PCP - General Family Medicine 12/19/22 documented as of this encounter
--- OUTSIDE RECORDS SUMMARY | 2024-06-01 06:58 | XMS_ITS | Encounter Summary ---
Author Organization [place] [address] Care Team Providers Care Microbiological Lab Technician Name Role Phone None Primary Care Provider Unavailabl e Encounter Details Date Type Department Care Team ([facility] Contact Info) Description 09/26/2022 10:30 AM EST TH Visit (TeleHealth) Weight and Wellness at [address] [phone] Adult BMI 39.0-39.9 kg/sq m Social History Tobacco Use Types Packs/Day Years Used Date Smoking Tobacco: Never Smokeless Tobacco: Never Sex and Gender Information Value Date Recorded Sex Assigned at Female 10/05/2021 8:56 AM EST Gender Identity Not on file Sexual Orientation Straight 10/05/2021 8: 56 AM EST documented as of this encounter Patient Instructions * Patient Instructions* Hailee Martínze RD - 09/26/2022 10:30 AM EST Nutrition Goals: Continue exercise routine - goal [...] water slowly outside of meal times documented in this encounter Progress Notes * Hailee Martínez RD - 09/26/2022 10:30 AM EST Nutrition Intervention for Weight Management Initial RD visit with SIMONA Thompson 1980 Telehealth / telephone visit conducted while patient was at home at the following address: [address] [facility] [phone] Weight Today: Wt Readings from Last 3 Encounters: 06/06/22 103.4 kg (228 lb) 02/14/22 95.7 kg (211 lb) 01/02/22 101.6 kg (224 lb) BMI Readings from Last 3 Encounters: 06/06/22 39.14 kg/m?? 02/14/22 36.02 kg/m?? 01/02/22 38.24 kg/m?? Interview: pt states ready for surgery; no questions or concerns today - will continue to practice bariatric surgery behaviors; Weight Loss History: See previous notes from this repairer typewriter and [facility] provider for full account Typical Dietary Intake: Wakeup 8/9 9am B: 1 fried egg, piece of toast with peanut butter 11:30-12noon L: tuna sandwich on wheat, baby carrots, grapes 4-5pm D: chicken noodle soup, crackers/saltines Typical Beverages: water - 3-4, 16oz bottle/day; iced tea - 2-3x/week; lemonade- 2-3x/wee; no carbonation; no caffeine; no alcohol; Appetite/Hunger: [x] feels managed with foods/meals outlined above [] discussed meal/snack schedule adjustment today- see goals [] patient identifies eating for reasons other than hunger- see interview above [] Current food Tracking [] discussed potential benefit starting food tracking - see goals Patient Goals from Team: Goals ??? meal timing/food choices ?? Meal [...] to work on eating behaviors ?? Health Medical Oncologist is sending hand-outs with exercises for mindful eating, The Pause/STOP and Urge surfing. Patient will review and try implementing some behaviors before we meet again. Bariatric eating behaviors introduced or reviewed: [x] Stop eating at comfortable full point (eating slowly to know, chewing thoroughly) [] Any binging identified? (6 months no binging prior to surgery) [x] Regular meal pattern, avoid grazing, reasonable snack frequency [x] Plan protein at all meals and snacks, eat protein first [x] Total water intake - 48oz or more [x] eating and drinking by 30 minutes on either side - going well [x] Sip rather than gulp [] Reduce coffee intake down to ~1 cup (caffeine) prior to surgery [] Reduce alcohol, ideally avoid [] Currently smoking? [] Former smoker, quit date: (2 months nicotine-free prior to surgery) Activity: resistance bands 3x/week continues - feeling stronger; outside walking - 1-2x/day with dogs, 1/2 mile; switch to treadmill for winter [x] reviewed current goals [] updated goals Barriers to Change: none identified today Nutrition Goals updated today: (1) continue exercise routine - plan for winter weather (2) choose protein first at eating events (3) bariatric drinking behaviors - sip water slowly outside of meal times, no chugging/gulping Monitor/Evaluate: [] Needs additional fuv scheduled with this repairer typewriter in Return for no f/u needed. (OR) [] Currently scheduled for: [] 1st consecutive monthly nutrition visit [] 2nd consecutive monthly nutrition visit [] 3rd consecutive monthly nutrition visit (OR) [x] Patient has met requirement of 3 consecutive monthly nutrition visits Above determined to the best ability of this repairer typewriter. Patient will contact bariatric surgery team for any official determination about about scheduling and insurance requirements ( ) Thank you 30 minutes were spent in visit today, including contact with patient, chart review, and documentation documented in this encounter Plan of Treatment [...] psychologist to work on eating behaviors Health Medical Oncologist is sending hand-outs with exercises for mindful [...] this encounter Visit Diagnoses Diagnosis Adult BMI 39.0-39.9 kg/sq m Body Mass Index 39.0-39.9, adult documented in this encounter Care Teams Microbiological Lab Technician Relationship Specialty Start Date End Date None None PCP - General 06/07/22 12/18/22 documented as of this encounter
--- OUTSIDE RECORDS SUMMARY | 2024-06-01 06:58 | XMS_ITS | Encounter Summary ---
Author Organization [facility] [address] Care Team Providers Care Client Support Professional Name Role Phone None Primary Care Provider Paytonabl e Encounter Details Date Type Department Care Team ([facility] Contact Info) Description 07/04/2022 Telephone Weight and Wellness at [address] [phone] Crystal Ferro, PhD [facility] [place] [place] [address] Social History Tobacco Use Types Packs/Day Years Used Date Smoking Tobacco: Never Smokeless Tobacco: Never Sex and Gender Information Value Date Recorded Sex Assigned at Female 10/05/2021 8:56 AM EST Gender Identity Not on file Sexual Orientation Straight 10/05/2021 8: 56 AM EST documented as of this encounter Miscellaneous Notes * Telephone Encounter - Crystal Ferro, PhD - 07/04/2022 12:38 PM EDT Called patient's mental health provider (Ludmila Stone) following pt's [employer] message, no answer so I left voicemail requesting a return call. Crystal Ferro, PhD documented in this encounter [...] to work on eating behaviors Health Bilingual Speech Therapist is sending hand-outs with exercises for mindful eating, The Pause/STOP and Urge surfing. Patient will review and try implementing some behaviors before we meet again. movement Lifestyle On track(2021 10:29 AM EST) Jill Colmenares, MEDICAL RECORD ADMINISTRATOR Note: Exercise goal is 150 min a [...] on filedocumented in this encounter Care Teams Client Support Professional Relationship Specialty Start Date End Date None None PCP - General 06/07/22 12/18/22 documented as of this encounter
--- OUTSIDE RECORDS SUMMARY | 2024-06-01 06:58 | XMS_ITS | Encounter Summary ---
Author Organization [facility] [place] [address] [address] Care Team Providers Care House Cleaner Name Role Phone None Primary Care Provider Unavailabl e Encounter Details Date Type Department Care Team ([facility] Contact Info) Description 08/27/2022 Notes Only General Surgery at [facility] [place] [address] Kelsey Palmer Social History Tobacco Use Types Packs/Day Years Used Date Smoking Tobacco: Never Smokeless Tobacco: Never Sex and Gender Information Value Date Recorded Sex Assigned at Female 10/05/2021 8:56 AM EST Gender Identity Not on file Sexual Orientation Straight 10/05/2021 8: 56 AM EST documented as of this encounter Progress Notes * Kelsey Montano - 08/27/2022 4:23 PM EDT Images from the original note were not included. From: Kelsey Montano [facility] Sent: Saturday, August 27, 2022 4:23 PM To: 'cooper' <[email or web address]> Subject: RE: Appointment EXTERNAL Ramon Mobley - It does appear you have to meet with the dietitian 1 more month before we can have you come in to meet with the surgeon. Once you have your September diet visit you will have met your insurance requirements for surgery. I see you are scheduled with the health assistant men's lacrosse coach for 10/01/22, in addition to that visit you will need another meeting with dietitian as well. In good health, Kelsey Montano Bariatric Surgery Coordinator Section of General Surgery Division of Bariatric Surgery [facility] From: cooper <[email or web address]> Sent: Wednesday, August 24, 2022 3:49 PM To: Dorothy <[email or web address]> Subject: Appointment EXTERNAL Hi! I believe that I am all done with my bariatric surgery pathway. I now have a green light from the psychologist and I have done all of my nutritional visits. Is there anything else that I'm going to need to do before I set up the appointment to see you guys? Thank you so much Leandra Wilks documented in this encounter Plan [...] On track(2021 10:29 AM EST) Jill Colmenares, LIVESTOCK AGENT Note: Follow up with sleep, do sleep [...] psychologist to work on eating behaviors Health Legal Secretary is sending hand-outs with exercises for mindful [...] on filedocumented in this encounter Care Teams House Cleaner Relationship Specialty Start Date End Date None None PCP - General 06/07/22 12/18/22 documented as of this encounter
--- OUTSIDE RECORDS SUMMARY | 2024-06-01 06:58 | XMS_ITS | Encounter Summary ---
Author Organization [facility] [place] [address] Care Team Providers Care Air Tank Assembler Name Role Phone None Primary Care Provider Unavailabl e Encounter Details Date Type Department Care Team (Latest Contact Info) Description 07/05/2022 4:00 PM EDT TH Visit (TeleHealth) Weight and Wellness at [address] [phone] Russ Henry Class 2 severe obesity due to excess calories with serious comorbidity and body mass index (BMI) of 39.0 to 39.9 in adult Social History Tobacco Use Types Packs/Day Years Used Date Smoking Tobacco: Never Smokeless Tobacco: Never Sex and Gender Information Value Date Recorded Sex Assigned at Female 10/05/2021 8:56 AM EST Gender Identity Not on file Sexual Orientation Straight 10/05/2021 8: 56 AM EST documented as of this encounter Patient Instructions * Patient Instructions* Russ Henry - 07/05/2022 4:00 PM EDT It was good to talk with you Leandra. Congratulations on receiving the green light to move ahead with surgery. Keep up the good work you're doing with practicing the bariatric behaviors. I look forward to talking with you again. Be well, Russ Henry Health Hand Outside Cutter documented in this encounter Progress Notes * Russ Henry - 07/05/2022 4:00 PM EDT Leandra Wilks is here today at the request of Jill Farooq for lifestyle coaching for weight control and overall health. FOLLOW UP VISIT 1. Clarify/revisit BIG WHY: be healthy 2. Assess/review Strengths: knowledge 3. Review Healthy habits guidelines for exercise, sleep, and stress- see below 4. Teach SMART goals and practice setting one(connect to BIG WHY, pillars). Review specific goals if any from provider [...] week -can use therabands ??? Nutrition - 02/14/22 Nutrition Goals: ??? Establish exercise routine - goal of 150 minutes per week of aerobic exercise (treadmill, walking outside); resistance bands daily (alternate between upper and lower body); explore at home exercise options ??? Choose protein first at all eating events - plain swedish yogurt, with fruit, 1 tsp ground flaxseed, unsweetened coconut flakes, nuts/seeds; vegetables with peanut butter/doshi dip/swedish yogurt dips/hard boiled egg/slice of deli meat/cheese stick; fruits with nuts/nut; protein on salad; butter/cheese/1/2 cup lowfat cottage cheese/swedish yogurt ??? Practice Bariatric Drinking Behaviors - separate eating and drinking by 30 minutes both before and after meal time; don't bring drinks to the table, consider choosing moist foods; work on sippingrather then gulping/chugging water Continued Goals: ??? Increase vegetables at lunch and dinner - choose 1/2 plate vegetables, 1/4 plate protein and 1/4 plate unprocessed high fiber carbohydrate ??? Establish bedtime routine - dim lights, eliminate screens 30-60 minutes before sleep, set your brain up for sleep (meditation, journaling, gratitude journal, breathing exercises, stretching, soothing music, etc) ??? No snacks after dinner - replace eating with alternate boredom buster behavior (ex: reading a book, resistance bands, going for a walk, etc) ??? sleep ?? Follow up with sleep, [...] to work on eating behaviors ?? Health Hand Outside Cutter is sending hand-outs with exercises for mindful eating, The Pause/STOP and Urge surfing. Patient will review and try implementing some behaviors before we meet again. Exercise Take dogs for walk every hour, live on second floor so go up and down stairs several tines a day - it's getting easier to do this. Using resistance bands. Sleep Not sleeping well, having health challenges Stress Managing stress okay. Self-monitoring What are you doing now? If no personal accountability process, what can you add? [x]Food log: [] daily [x] intermittent []Weigh-ins: [] daily [] weekly [x]Exercise log [x]Gratitude journal []Other: Food Behaviors (optional): Have been given green light to move ahead with surgery Future follow-up with health high school sports coach will address identified areas of concern: [x] Exercise [x]Sleep []Stress [x]Accountability []Food Behaviors [x]Self-compassion Below are guidelines for optimal health that [...] increasing mindfulness throughout the day. Your health high school sports coach is well-equipped to guide you to find something to look forward to everyday. Eating behaviors: many people benefit from restricting the hours in which they eat. You can choose an eating window of 8-12 hours to start. Make a pact with yourself that you will not take in anything with caloric content outside this window. Your film vault supervisor may make further recommendations documented in this [...] Lifestyle On track(2021 10:28 AM EST) Jill oClmenares, BRYANNA Note: Mindfulness/deep breathing practice to reduce cortisol -try for at least 10 minutes a day -try an ap such as headspace I have referred you to our psychologist to work on eating behaviors Health Hand Outside Cutter is sending hand-outs with exercises for mindful [...] of this encounter Visit Diagnoses Diagnosis Class 2 severe obesity due to excess calories with serious comorbidity and body mass index (BMI) of 39.0 to 39.9 in adult documented in this encounter Care Teams Air Tank Assembler Relationship Specialty Start Date End Date None None PCP - General 06/07/22 12/18/22 documented as of this encounter
--- OUTSIDE RECORDS SUMMARY | 2024-06-01 06:58 | XMS_ITS | Encounter Summary ---
Author Organization [facility] [place] [address] Care Team Providers Care Duck Operator Name Role Phone Debby Puri MD Primary Care Provider Encounter Details Date Type Department Care Team ([facility] Contact Info) Description 10/04/2021 Telephone Weight and Wellness at [address] [phone] Taylor Padilla, MAX Social History Tobacco Use Types Packs/Day Years Used Date Smoking Tobacco: Never Smokeless Tobacco: Never Sex and Gender Information Value Date Recorded Sex Assigned at Female 10/05/2021 8:56 AM EST Gender Identity Not on file Sexual Orientation Straight 10/05/2021 8: 56 AM EST documented as of this encounter Miscellaneous Notes * Telephone Encounter - Taylor Padilla, MAX - 10/04/2021 3:30 PM EST [facility] [place] Transport Coordinator Pre-telemedicine Visit Phone Note Leandra Wilks 1980 [] Patient was not reached: [] No working phone [] Not able to leave message [] Message left with visit info/call [phone] [] ZOOM link sent if no MyDH [x] Patient was reached and the following information was reviewed/obtained per protocol: [] Confirmed patient name and date of [x] Confirmed address where patient will be at time of call Patient is in [] [place] [x] [place] [] Other: [address] [facility] [address] [x] Confirmed best number to be reached is: [phone] [] Reminded to sign up for MyD (sent invite) [x] Reminded to complete MyDH survey if message received to do so [x] Confirmed ZOOM downloaded and functioning [] Confirmed visit contact information updated (text/email for sending ZOOM link) [] ZOOM appointment link sent if no MyDH REVIEW: [x] Review of patient medications completed Have you started on any NEW medications? [x] No [] Yes: [x] Confirmed preferred pharmacy: [facility] [place] Documented self reported vital signs from [] None available [x] Home [] PCP [] outside PCP Date: 10/03/21 [x] Weight 226 [] Height [] Blood pressure [] Pulse Any recent labs/studies [x] No [] Yes: [] Labs/vitals requested [] labs/vitals scanned (guidance secretary) and entered (RN) [x] Requested 24 hour diet recall [] Other information or concerns: Interested in [facility] QI project [x] No [] Yes [remind me task to cesar] FOR FOLLOW-UP VISITS: from mailed intake worksheet Interval History ??? Any NEW medical conditions? [x] No [] Yes: ??? Any recent hospitalizations? [x] No [] Yes: documented in this encounter Plan of Treatment [...] psychologist to work on eating behaviors Health Brand Engineer is sending hand-outs with exercises for mindful eating, The Pause/STOP and Urge surfing. Patient will review and try implementing some behaviors before we meet again. movement Lifestyle On track(2021 10:29 AM EST) Jill Colmenares, ACADEMIC AFFAIRS ASSISTANT Note: Exercise goal is 150 min a week, just do some walking, even [address] to start Recommend resistance training 3 times a week -can use the[employer] Nutrition - 09/26/22 Lifestyle On track(2021 10:29 [...] on filedocumented in this encounter Care Teams Duck Operator Relationship Specialty Start Date End Date Debby Puri MD [address] [place] [address] PCP - General Family Medicine 07/13/20 06/06/22 documented as of this encounter
--- OUTSIDE RECORDS SUMMARY | 2024-06-01 06:58 | XMS_ITS | Encounter Summary ---
Author Organization [facility] [place] [address] Care Team Providers Care Wood Tank Erector Name Role Phone None Primary Care Provider Unavailabl e Reason for Visit * Reason Onset Date Comments Prior Authorization 10/10/2022 Encounter Details Date Type Department Care Team ([facility] Contact Info) Description 10/10/2022 Telephone General Surgery at [facility] [place] [phone] Camille Gross Prior Authorization Social History Tobacco Use Types Packs/Day Years Used Date Smoking Tobacco: Never Smokeless Tobacco: Never Sex and Gender Information Value Date Recorded Sex Assigned at Female 10/05/2021 8:56 AM EST Gender Identity Not on file Sexual Orientation Straight 10/05/2021 8: 56 AM EST documented as of this encounter Miscellaneous Notes * Telephone Encounter - Camille Gross - 10/10/2022 10:54 AM ESTSummary: Phone Call 10/10/2022- I received a Phone Call from Kelsey Palmer with the Bariatric Team asking if this patient's procedure could be processed for Authorization even though her BMI had dropped below 40.I explained that I would check and get back to her. I checked the [place] Medicaid Provider Portal and this patient is ACO Attributed and the procedure would not require Prior Authorization. I explained that to Kelsey. documented in this encounter Plan of Treatment [...] to work on eating behaviors Health Senior Safety Support Manager is sending hand-outs with exercises for [...] filedocumented in this encounter Care Teams Wood Tank Erector Relationship Specialty Start Date End Date None None PCP - General 06/07/22 12/18/22 documented as of this encounter
--- OUTSIDE RECORDS SUMMARY | 2024-06-01 06:58 | XMS_ITS | Encounter Summary ---
Author Organization [facility] [place] [address] Care Team Providers Care Global Expansion Sales Director Name Role Phone Debby Puri MD Primary Care Provider Encounter Details Date Type Department Care Team (Late st Contact Info) Description 02/05/2022 Ancillary Procedure [place] [phone] Debby Puri MD [address] [place] [address] Social History Tobacco Use Types Packs/Day Years [...] On track(2021 10:28 AM EST) Jill Colmenares, SEMICONDUCTOR WAFERS ETCHER STRIPPER Note: Mindfulness/deep breathing practice to reduce cortisol -try for at least 10 minutes a day -try an ap such as headspace I have referred you to our psychologist to work on eating behaviors Health Crystal Grinder is sending hand-outs with exercises for mindful eating, The Pause/STOP and Urge surfing. Patient will review and try implementing some behaviors before we meet again. movement Lifestyle On track(2021 10:29 AM EST) Jill Colmenares, SEMICONDUCTOR WAFERS ETCHER STRIPPER Note: Exercise goal is 150 min a week, just do some walking, even [address] to start Recommend resistance training 3 times a week -can use therabanCopiun Nutrition - 09/26/22 Lifestyle On track(2021 10:29 [...] Associated Diagnosis Comments FILM LIBRARY STORAGE ONLY MAMMO Routine 02/05/2022 12:00 AM EDT documented in this encounter Results * Film Library- Storage Only Mammo (02/05/2022 12:00 AM EDT) Narrative RAD - 02/20/2022 2:54 PM EDT This exam is auto-finalizing. It's purpose is for storage only. Debby Puri MD IMG FILM LIBRARY OR DERABLES [place], [place] documented in this encounter Visit Diagnoses Not on filedocumented in this encounter Care Teams Global Expansion Sales Director Relationship Specialty Start Date End Date Debby Puri MD [address] [place] [address] PCP - General Family Medicine 07/13/20 06/06/22 documented as of this encounter
--- OUTSIDE RECORDS SUMMARY | 2024-06-01 06:58 | XMS_ITS | Encounter Summary ---
Author Organization [facility] Address [facility] [place] [address] Care Team Providers Care Instructor Technical Training Name Role Phone None Primary Care Provider Unavailabl e Reason for Referral * Psychiatric (Routine) - Closed Specialty Diagnoses / Procedures Referred By Chela doyle Referred To Contact Psychiatry Diagnoses Psychophysiologic insomnia Sharla Kirkland MD [facility] [place] [address] Loli Valerio, PhD [facility] [place] [address] Referral ID Status Reason Start Date Expiration Date V isits Requested Visits Authorized [id number] Closed Consult, Test & Treat 06/07/2022 06/07/2023 1 1 Encounter Details Date Type Department Care Team (Latest Contact Info) Description 06/07/2022 10:45 AM EDT TH Visit (TeleHealth) [facility] [place] [address] [place] [address] Flora Olivares, RT Psychophysiologic insomnia (Primary Dx); CHUN on CPAP Social History Tobacco Use Types Packs/Day Years Used Date Smoking Tobacco: Never Smokeless Tobacco: Never Sex and Gender Information Value Date Recorded Sex Assigned at Female 10/05/2021 8:56 AM EST Gender Identity Not on file Sexual Orientation Straight 10/05/2021 8: 56 AM EST documented as of this encounter Last Filed Vital Signs Vital Sign Reading Time Taken Comments Blood Pressure - - Pulse - - Temperature - - Respiratory Rate - - Oxygen Saturation - - Inhaled Oxygen Concentration - - Weight 103.4 kg (228 lb) 06/06/2022 1:01 PM EDT Height 162.6 cm (5' 4) 06/06/2022 1:01 PM EDT Body Mass Index 39.14 06/06/2022 1:01 PM EDT documented in this encounter Progress Notes * Flora Olivares, ZIG [employer] SPRING MACHINE OPERATOR - 06/07/2022 10:45 AM EDT Sleep Medicine Clinical Health Specialist Brief Follow-Up Note HPI:Ms Leandra Wilks is a 42 y.o. female seen for follow-up of obstructive sleep apnea. Date: 06/07/2022. Patient gives verbal consent to the tele-health clinic visit. She/He understands this visit may be billed to a similar clinic visit. [place]. Excerpt provided by Dr Kirkland Sleep Study Date: 09/12/2021 ( HST) Weight: 228# Assessment: Ms. Leandra Wilks is a 41 y.o. female whose home sleep test was non-diagnostic for obstructive sleep apnea. Home sleep testing may underestimate sleep apnea severity. Results and recommendations relayed via [facility]. ?? Recommendations: To assess if CHUN is playing a role in her presenting symptoms, a formal in lab PSGin recommended. ?? - In lab polysomnogram ?? Sharla Kirkland MD Excerpt provided by Dr Kirkland Diagnostic/Titration Study Date: 12/12/2021 (PSG) Weight: 226# Assessment: Leandra Wilks is a 41 yo who presents for a diagnostic polysomnogram to assess for CHUN in the setting of poor sleep, snoring, and excessive sleepiness. She also reports visual hallucinations as well. On this night of testing, all stages of sleep were seen with 64% of the time spent [place]. Overall, mild CHUN was noted with an AHI of 7/hr. However, additional subtle airflow obstruction and snoring was noted to disrupt sleep. Mild to moderate snoring was noted. Oxygenation was well maintained with a min of 92%. EKG showed normal sinus rhythm. No motor disorder was identified. ? Recommendations: In the setting of reported symptoms, treatment of mild CHUN may be of benefit to improve sleep quality and next day sleepiness. CPAP is the recommended primary modality for treatment.Alternative options are less favored and include an oral appliance or surgery. Conservative strategies may be of additional benefit and include weight loss, avoiding the supine position, treatment ofnasal congestion, and avoiding sedatives. ?? - Trial of AUTOPAP 5-15 cm in an effort to improve sleep quality. - Conservative options including weight loss, avoiding the supine position, treatment of any nasal congestion and avoiding sedative before bed are also recommended. ?? Sharla Kirkland MD ?? Prior visit: 05/10/2022 w/ SD for Mask fitting/ desensitization visit Patient Response: Ms Wilks presents to the clinic for a mask desensitization visit. States that current mask (DreamWear FFM) makes her feel very claustrophobic and feels like she is getting too much air and will takeher mask off. Only has tried the mask a couple of times due to this. I trailed her in a couple different nasal masks to try and help with her claustrophobia. She liked the Silicone Pillows, under the nose and dream wisp. Will take them home and try them out to decide which one she likes the best and is most comfortable for her during the night. Median pressure is 8.1 I expect that we may have to increase her pressure at a later date. I encouraged Ms Wilks to contact the clinic if she feels like she needs more pressure, states she will contact the clinic if issues arise or are not resolved. RTC in 6-8 weeks for a compliance visit. Patient RTC today for : Compliance/ FUV Treatment: CPAP Pressure: 5-15 cm H20 Interface: under the nose Fit: its the best fitting one Chin Strap: no chin strap HCC: [facility] Insurance: Medicaid [place] Snoring: doesn't think so when she uses cpap, would snore if she did not use cpap Dry Mouth/Throat: a little bit Mouth Breathing: does not think she is mouth breathing with nasal mask Symptom Benefit: [place]: Patient-reported last 4 scores: No flowsheet data found. Sleep position: a lot of time on the back, can go to sides. Sleep quality: seems better when not using the cpap, wakes up a lot in the night and very claustrophobic Sleep meds: Trazodone ( for sleep and nightmares) does not take often will sleep the whole next day. BT: Usually around 8:00-9:00 pm, will play on her phone for about an hour. Latency: 5 minutes Nocturia: 3 x a night ( when on cpap 3-4x ) using bathroom, very light sleeper noise will wake her up, can fall back to sleep RT: 7:00-9:00 AM feels semi rested on mornings that she has not used cpap. Daytime Symptoms: Involuntary Dozing: no dozing Nappin x a day for about 2 hours [address]: Sleepiness or drowsiness no, denies it every being an issue Caffeine: tries to stay away form caffeine Alcohol: none ROS: ENT: Nasal Obstruction: thinks she may have seasonal, does not do anything for it. Constitutional: Date 09/12/2021: Study weight: 228# 06/07/2022 : weight: 225# pt reported Compliance Card Data: Date Range: 04/17/2022-06/04/2022 Settin-15 cm H20 ( median 5.5/ 95th 7.1) Residual AHI: 1.4/hr Vibratory Snore Index: n/a % Night in Large Leak: median 3.2/ 95th 7.8 Average usage all days-Hours: 26 minutes ( days used 1 hour 15 minutes) # of Days of usage: 17/49 % Days used > 4 hours 4 % Total % Days used 35 % Physical Exam: Respirations: Even and not labored at rest DERM: Skin irritation: No skin issues. Vitals: 06/06/22 1301 Weight: 103.4 kg (228 lb) Height: 162.6 cm (5' 4) Time spent face to face: 45 min. Assessment: Ms. Leandra Wilks is a 42 y.o. female seen for follow-up of obstructive sleep apnea.Ms Wilks presents today for follow-up in PAP clinic: The download reveals minimal use with cpap. Reports struggling with being able to use cpap, she reports that the nights she uses cpap she does not sleep well. Does take naps mostly every day for about 2 hours. Having issues with waking up a lot during the night, states always having issues falling asleep, but staying asleep has gotten worse. Dr Kirkland spoke to Leandra about considering CBTi to help with ongoing issues with insomnia and could consider stopping use of cpap ( mild chun) since it is making her sleep worse. Talked about increasingpressures but Ms Wilks has low tolerance to higher pressures. Came in on 05/10/2022 for a mask fitting session, and struggled with pressures above 5 cm. Leandra is amendable to to trying CBTi to learn coping skills to help with insomnia. Dr Kirkland spoke about alternative options to help with chun symptoms by losing weight, using a iron guardrail installer, avoiding supine position. No new medical issues at this time, weight is stable. Plan is to D/C cpap, referral for CBTi and Leandra will contact Dr Kirkland after starting CBTi to discuss how things are going. Recomendations: 1) CPAP 5-15 with ramp and HH- will be stopping cpap use 2) Follow-up: RTC Will contact Dr Kirkland to discuss how things are going with CBTi. 3) Driving safety discussed, recommend patient not drive if drowsy, if drowsy while driving to side puller and take a nap. 4) Patient to replace supplies routinely and understands mask cushions can be replaced monthly. 5) Script to RR to D/C cpap machine 6) referral for CBTi The patient indicates understanding of these issues and agrees with the plan. The case was discussed with Dr. Kirkland who saw (tele-health) the patient and participated in the formulation and decision making. * Sharla Kirkland MD - 06/07/2022 10:45 AM EDT Sleep Clinic Note - Telehealth Visit due to COVID -19 Pandemic CC: Insomnia, mild CHUN, intolerance to CPAP HPI: - Seen in conjunction with Flora Olivares, WORK ORDER SORTING CLERK - Claustrophobic feeling and struggled during the mask fit as well. - CPAP not working well for her, more rested when not using it. - Naps daily for 2 hrs. Every day, so worse than at the original consult - Light sleeper, any external noise may wake her Download: reviewed, limited use. Exam: Alert, pleasant, no distress Assessment: Leandra Wilks returns for follow up on her response to CPAP. Originally, presented to my clinic with reports of longstanding history of difficulty falling asleep (which she was coping with), but with a new symptome of difficulty sustaining sleep with multiple awakenings. Some naps inthe day. Has RF for CHUN, but formal testing demonstrated mild CHUN, AHI 7, SPO2 min 92%. Trial of AUTOPAP, delayed due to machine shortages. Now for follow up- has struggled, no benefit, claustrophobia, just doesn't think this is for her. Discussed that given how mild the CHUN is, that it may not be playing a large part in her symptoms. Discussed approaching the insomnia symptoms directly with CBT -I and she is very open to his approach. Referral to CBT -I group, [facility]. Recommendations: 1) CBT - I group program. 2) I asked her to send me a message to up date on her progress during or after CBT -I, no follow upscheduled with me as yet. A total of 25 minutes was spent today in chart review, discussion, and documentation. Sharla Kirkland MD Patient ID and location confirmed for the visit. This telehealth visit was performed in lieu of an in-person office visit for purposes of infection prevention during the SARS-CoV pandemic. As this was a telehealth visit, the patient is not physically present with Tova Katz as the supervising physician, am concurrently monitoring the patient care through appropriate telecommunication technology. documented in this encounter Plan of Treatment [...] On track(2021 10:28 AM EST) Jill Colmenares, FOOD MIXER Note: Mindfulness/deep breathing practice to reduce cortisol -try for at least 10 minutes a day -try an ap such as headspace I have referred you to our psychologist to work on eating behaviors Health Insurance Follow Up Representative is sending hand-outs with exercises for mindful eating, The Pause/STOP and Urge surfing. Patient will review and try implementing some behaviors before we meet again. movement Lifestyle On track(2021 10:29 AM EST) Jill Colmenares, FOOD MIXER Note: Exercise goal is 150 min a [...] as of this encounter Visit Diagnoses Diagnosis Psychophysiologic insomnia- Primary Persistent disorder of initiating or maintaining sleep CHUN on CPAP Obstructive sleep apnea (adult) (pediatric) documented in this encounter Care Teams Instructor Technical Training Relationship Specialty Start Date End Date None None PCP - General 06/07/22 12/18/22 documented as of this encounter
--- OUTSIDE RECORDS SUMMARY | 2024-06-01 06:58 | XMS_ITS | Encounter Summary ---
Author Organization [facility] Address [facility] [place] [address] Care Team Providers Care Baggage Screener Name Role Phone None Primary Care Provider Unavailabl e Encounter Details Date Type Department Care Team ([facility] Contact Info) Description 08/02/2022 Notes Only Weight and Wellness at [address] [address] Crystal Ferro, PhD [facility] [place] [address] Social History Tobacco Use Types Packs/Day Years Used Date Smoking Tobacco: Never Smokeless Tobacco: Never Sex and Gender Information Value Date Recorded Sex Assigned at Female 10/05/2021 8:56 AM EST Gender Identity Not on file Sexual Orientation Straight 10/05/2021 8: 56 AM EST documented as of this encounter Progress Notes * Crystal Ferro, PhD - 08/02/2022 10:42 AM EDT BARIATRIC SURGERY NOTE [facility] AT [address] [address] Dept: [phone] 08/02/2022 10:43 AM I spoke to patient's therapist (Ludmila Stone) on 07/11 and Ludmila denied having any concerns or reservations about Leandra moving forward with surgery. At the last visit (07/11) patient reported maintaining the improvements to her eating patterns and relationship with food, and she has started therapy. She reported keeping up well with bariatric eating changes and also noted positive changes to her support system and stress levels. Patient's last reported binge was in February 2022, therefore to reach 6 months binge-free to meet program requirements she will need one more month of abstaining from binge eating. I will call patient in August to discuss this. At the previous visit patient reported she continues to have somewhat limited social support and although she has non-weight related motivations for surgery and reasonable expectations, in the past she has expressed some more rigid weight and appearance-focused motivations. For these reasons, and due to patient's history of disordered eating, I recommend a post-surgical followup with a member of the [facility] psychology team. Crystal Ferro, PhD documented in this encounter [...] psychologist to work on eating behaviors Health Public Service Officer is sending hand-outs with exercises for [...] on filedocumented in this encounter Care Teams Baggage Screener Relationship Specialty Start Date End Date None None PCP - General 06/07/22 12/18/22 documented as of this encounter
--- OUTSIDE RECORDS SUMMARY | 2024-06-01 06:58 | XMS_ITS | Encounter Summary ---
Author Organization [facility] Address [facility] [place] [address] Care Team Providers Care Clinical Nursing Intern Name Role Phone None Primary Care Provider Unavailabl e Encounter Details Date Type Department Care Team (Latest Contact Info) Description 10/09/2022 Travel Social History Tobacco Use Types Packs/Day [...] psychologist to work on eating behaviors Health Pocket Marker is sending hand-outs with exercises for mindful [...] on filedocumented in this encounter Care Teams Clinical Nursing Intern Relationship Specialty Start Date End Date None None PCP - General 06/07/22 12/18/22 documented as of this encounter
--- OUTSIDE RECORDS SUMMARY | 2024-06-01 06:58 | XMS_ITS | Encounter Summary ---
Author Organization [facility] Address [facility] [place] [address] Care Team Providers Care Director Of Academic Support Name Role Phone None Primary Care Provider Paytonabl e Encounter Details Date Type Department Care Team (Latest Contact Info) Description 07/11/2022 11:00 AM EDT TH Visit (TeleHealth) Weight and Wellness at [address] [address] Crystal Ferro, PhD [facility] [place] [address] Trauma and stressor-related disorder; Generalized anxiety disorder Social History Tobacco Use Types Packs/Day Years Used Date Smoking Tobacco: Never Smokeless Tobacco: Never Sex and Gender Information Value Date Recorded Sex Assigned at Female 10/05/2021 8:56 AM EST Gender Identity Not on file Sexual Orientation Straight 10/05/2021 8: 56 AM EST documented as of this encounter Progress Notes * Crystal Ferro, PhD - 07/11/2022 11:00 AM EDT BARIATRIC SURGERY FOLLOW UP NOTE N [facility] AT [address] [address] Dept: [phone] 07/11/2022 11:30AM Leandra Wilks is a 42 y.o. female who was referred for evaluation and preparation for potential bariatric surgery.Leandra was previously evaluated on 02/21/22 and 04/04/22, and concern were raised about bariatric surgery readiness. Leandra was seen for 30 minutes. Patient was alone, and was seen via Telehealth. Leandra Wilks gave permission for and was seen for today's appointment with a Telehealth visit. During this visit they were located at home in [place], [place]. Leandra Wilks is aware that for any urgent matter they can call [phone].. Plan: At today's visit (07/11) patient reported maintaining the improvements to her eating patterns and relationship with food, and she has started therapy. She reported keeping up well with bariatric eating changes and also noted positive changes to her support system and stress levels. Previous visit (04/04): At today's visit we identified several ongoing areas of concern with regard to Leandra's eating. She continues to show patterns of regular, severe caloric restriction, consuming minimal calories for 2-3 days, and at times engaging in overeating/binge eating. In addition, patient has also lost at least 20 lbs since enrolling in the bariatric program and her BMI is ~36. Discussed the pros and cons of continuing to pursue bariatrics versus pausing and focusing on her mental health and eating patterns. Patient was agreeable to pausing bariatrics and pursuing treatment for eating patterns (ACT group, regular meetings with Crystal Ferro, PhD individually) and community therapy for her ongoing stress and trauma-related difficulties. The follow up plan is as follows: I will reach out to patient after I coordinate with her therapist DIAGNOSIS (based on information gathered in this evaluation) Trauma and stressor related disorder Generalized anxiety disorder The above assessment and plan was based on the following information obtained during the appointment. Please note section in blue indicates updated information from the previous evaluation: WEIGHT Initial Weight: 230lbs Weight at previous evaluation: 211 lbs Current Weight as of 07/11/2022: 228 lbs (last month) Weight changes since evaluation: total decrease of 2 lbs On 07/11 patient denied having an updated weight. PROBLEM EATING BEHAVIORS From previous evaluation: Current/recent binging (i.e., large amounts of food over a 2-hour period, feeling loss of control and overly full): None If h/o binging, last binge: prior to last visit, March 2022 Current/recent bulimic vomiting or other compensatory strategies (i.e., laxatives, diuretics, restricting): Denied If h/o bulimic vomiting or other compensatory strategies, last episode: prior to last visit, March 2022 Current/recent grazing (i.e., continuously eating small snacks): Yes, in the past If h/o grazing, last episode: 2-3 weeks ago, out of boredom. Frequency: once a month Current/recent mindless/stress eating (i.e., eating for emotional reasons rather than hunger): yes If h/o stress eating, last episode: A month since last emotional eating episode, stated that crocheting and making plans to go out and do something has been helpful Mindless eating - 2-3 weeks ago Current/recent over eating (i.e., eating to the point of being uncomfortably full): no, not since prior to last visit If h/o over eating, last episode: March 2022: Reported lately she has stopped eating when she starts to feel full 07/11/2022: Current/recent binging (i.e., large amounts of food over a 2-hour period, feeling loss of control and overly full): Denied If h/o binging, last binge: February 2022 Current/recent bulimic vomiting or other compensatory strategies (i.e., laxatives, diuretics, restricting): Denied If h/o bulimic vomiting or other compensatory strategies, last episode: prior to March 2022 Current/recent grazing (i.e., continuously eating small snacks): Denied If h/o grazing, last episode: over 1 month ago, keeping busy with crocheting Current/recent mindless/stress eating (i.e., eating for emotional reasons rather than hunger): Denied If h/o stress eating, last episode: Two months ago Current/recent over eating (i.e., eating to the point of being uncomfortably full): Denied If h/o over eating, last episode: mid-March 2022: Reported lately she has stopped eating when she starts to feel full SURGERY From previous evaluation: Patient reported her motivations for surgery were related to wanting more control over eating, stop me from overeating, has talked to a friend who has had bariatric surgery who told her she can no longer eat sugar or dairy due to illness. She reported wanting to feel better about myself, my body, more positive about life. Discussed health or quality of life-related motivations: back pain, joint pain - encouraged more focus on these. 07/11/2022: Patient reported she is pursuing surgery for greater peace of mind, feeling better about herself and her body, and strictly sticking to a diet. Discussed ongoing concerns with the focus of this surgery process for her - after some prompting, she identified wanting to lose weight to help alleviate back pain and improve her overall health. POST SURGERY EATING HABIT CHANGES AND READINESS From previous evaluation: ??? Eating slowly, taking 20-30 min to complete a meal: Aware of the need and practicing about 75+% of the time and has been practicing at this rate for about 4-6 weeks ??? eating and drinking by 30 minutes: Aware of the need and practicing about 90% of the time and has been practicing at this rate for about 1-2 month(s). ??? Eating smaller quantities: Aware of the need and practicing about 70+% of the time and has been practicing at this rate for about 1-2 month(s). ??? Protein at each meal (should be eating it first): Aware of the need and practicing about 65% of the time and has been practicing at this rate for about 1-2 month(s). Breakfast is sometimes harder ??? Sipping 6-8 8oz-glasses of water slowly: Aware of the need and practicing about 100% of the time and has been practicing at this rate for about 1-2 month(s). Other beverages: occasional sweetened iced tea (1-2 days/week) ??? Following a consistent meal pattern: Aware of the need and practicing about 100% of the time for the past 2 months Schedule of current meals and snacks: patient reported eating at least 3 regular meals daily ??? Regular exercise: Aware of the need of regular exercise and she reported some walking, spending time outside fishing.She also stated she walks her dogs occasionally. Current implementation of habit changes: good 07/11/2022: She reported keeping up with all habit changes. She reported prioritizing protein at least 80% overpast 1-2 months. For physical activity she shared that she has been more limited due to a kidney stone and ovarian cyst, increased pain, but she has continued to take dogs out to walk 1-2 times daily. CURRENT SOCIAL SUPPORT NETWORK From previous evaluation: Patient reported limited social support: Primary support comes from her boyfriend (he tries to be supportive but has severe depression), best friend, 17yo son, extended family Quality of EMOTIONAL support: fair Quality of TASK support: poor - maybe my boyfriend's mother Support network's reaction to bariatric surgery: people seem okay with it, mom is worried. Concerns about possible sabotaging or relationship changes: No Identified post-surgery caregiver: boyfriend and her son Stated her boyfriend is severely depressed right now and spends the vast majority of the time in bed, he is getting treatment but is not a reliable source of support at this time. 07/11/2022: She reported her boyfriend has been doing a lot better, no longer spending most of his time in bed,getting out more. Patient reported she has been talking to her best friend all the time and spending time with her, which has been good for emotional support, and she sees her therapist regularly. She noted her emotional support has improved overall, and task support has improved somewhat as her boy friend's mental health has improved. MENTAL HEALTH UPDATE: She reported feeling great, mood has been stable and she denied any new stressors. MENTAL HEALTH PROVIDER COMMUNICATION (IF NEEDED) Called 07/04 and left voicemail, waiting to hear back from provider (Ludmila Stone) HEALTH BEHAVIORS From previous evaluation: No previously identified concerns ADHERENCE AND ATTENDANCE From previous evaluation: Sleep Apnea? Yes - thinks mild or moderate, but unsure If yes, Night per week using CPAP: reported difficulty adhering, started with full face mask and felt very claustrophobic so removed it almost nightly. Saw Sleep Program for mask desensitization and she is seeking another treatment option. I told her to discuss with the bariatric team what they will need to see with regard to CHUN treatment before proceeding with surgery. 07/11/2022: Sleep Apnea? Yes - thinks mild or moderate, but unsure If yes, Night per week using CPAP: n/a, sleep medicine discontinued it Sleep: she reported getting up 1-2 times nightly to urinate, not staying up for long periods. She denied any difficulty falling asleep. She reported getting at least 7 hours of sleep nightly. The assessment and plan for Leandra Wilks are detailed at the beginning of this report. Crystal Ferro, PhD documented in this encounter [...] psychologist to work on eating behaviors Health [employer] Surface Grinder is sending hand-outs with exercises for [...] as of this encounter Visit Diagnoses Diagnosis Trauma and stressor-related disorder Generalized anxiety disorder documented in this encounter Care Teams Director Of Academic Support Relationship Specialty Start Date End Date None None PCP - General 06/07/22 12/18/22 documented as of this encounter
--- OUTSIDE RECORDS SUMMARY | 2024-06-01 06:58 | XMS_ITS | Encounter Summary ---
Author Organization [facility] Address [facility] [place] [address] Care Team Providers Care Logistics Administrator Name Role Phone None Primary Care Provider Unavailabl e Encounter Details Date Type Department Care Team ([facility] st Contact Info) Description 07/11/2022 Notes Only General Surgery at [facility] [place] [address] Kelsey Palmer Social History Tobacco Use Types Packs/Day Years Used Date Smoking Tobacco: Never Smokeless Tobacco: Never Sex and Gender Information Value Date Recorded Sex Assigned at Female 10/05/2021 8:56 AM EST Gender Identity Not on file Sexual Orientation Straight 10/05/2021 8: 56 AM EST documented as of this encounter Progress Notes * Kelsey Montano - 07/11/2022 3:39 PM EDT Ramon Mobley - It is very well documented in your chart by the sleep center that 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 The last note we received was from March stating that you were not interested in pursuing surgery at that time. It appears you???re in pretty good shape as far as insurance and program requirements if you are interested in pursuing surgery. You would need to have 3 more diet visits, [place] Medicaid requires 3 months of diet counseling within 6 mo. of surgery, since your most recent diet notes are 0 12/07/21, 01/02/22 & 02/14/22. From your primary care it appears we would need a copy of your most recent pap results unless you have had hysterectomy? Once you have 3 more months of diet and clearance from Crystal we can get you scheduled for your new patient evaluation. Surgery is typically 6-8weeks after your new patient evaluation. In good health, Kelsey Montano Bariatric Surgery Coordinator Section of General Surgery Division of Bariatric Surgery [facility] [place], [facility] From: [email or web address] <[email or web address]> Sent: Monday, July 11, 2022 1:10 PM To: Kelsey Montano <[email or web address]> Subject: Questions about last steps EXTERNAL Hi! Crystal Pillo wanted me to reach out to one of you at the bariatric surgery unit. She would like me to ask you if I will be okay as far as the sleep program. Sharla from the sleep center has discontinued the cpap machine that I was using. I was having a very difficult time using it,it just didn't work out. It was okay with Sharla that I discontinued use of the cpap,because she looked in my chart and found that I have only very mild sleep apnea. Also,I am wondering if I will have to start over with all the tests and bloodwork and things before I can have the surgery. And when will be the soonest that I can have the surgery,once Crystal gives me the green light. All she has to do is wait for a call back from my therapist to make sure that everything is going well there. Then,I do believe that I am set to go. If you could get back to me about these things,that would be great! Thank youso much! Leandra Wilks documented in this encounter [...] On track(2021 10:28 AM EST) Jill Colmenares, ARCHEOLOGIST Note: Mindfulness/deep breathing practice to reduce cortisol -try for at least 10 minutes a day -try an ap such as headspace I have referred you to our psychologist to work on eating behaviors Health Endoscopy Support Specialist is sending hand-outs with exercises for mindful eating, The Pause/STOP and Urge surfing. Patient will review and try implementing some behaviors before we meet again. movement Lifestyle On track(2021 10:29 AM EST) Jill Colmenares, ARCHEOLOGIST Note: Exercise goal is 150 min a [...] on filedocumented in this encounter Care Teams Logistics Administrator Relationship Specialty Start Date End Date None None PCP - General 06/07/22 12/18/22 documented as of this encounter
--- OUTSIDE RECORDS SUMMARY | 2024-06-01 06:58 | XMS_ITS | Encounter Summary ---
Author Organization [facility] Address [facility] [place] [address] Care Team Providers Care Starting Gate Driver Name Role Phone Debby Puri MD Primary Care Provider Reason for Visit * Reason Onset Date Comments Medication Refill 12/26/2021 Encounter Details Date Type Department Care Team (Late st Contact Info) Description 12/26/2021 Refill Weight and Wellness at [address] [phone] Jill Farooq APRN [facility] [place] [address] Class 2 severe obesity due to excess [...] track(2021 10:28 AM EST) Jill Colmenares, HEAD OF ADVERTISING Note: Mindfulness/deep breathing practice to reduce cortisol -try for at least 10 minutes a day -try an ap such as headspace I have referred you to our psychologist to work on eating behaviors Health [employer] Trimmer is sending hand-outs with exercises for mindful eating, The Pause/STOP and Urge surfing. Patient will review and try implementing some behaviors before we meet again. movement Lifestyle On track(2021 10:29 AM EST) Jill Colmenares, HEAD OF ADVERTISING Note: Exercise goal is 150 min a [...] adult documented in this encounter Care Teams Starting Gate Driver Relationship Specialty Start Date End Date Debby Puri MD [address] [place] [address] [address] [facility] [address] [place] [address] PCP - General Family Medicine 07/13/20 06/06/22 documented as of this encounter
--- OUTSIDE RECORDS SUMMARY | 2024-06-01 06:58 | XMS_ITS | Encounter Summary ---
Author Organization [facility] [place] [address] Care Team Providers Care Second Hand Paper Machine Name Role Phone None Primary Care Provider Unavailabl e Encounter Details Date Type Department Care Team ([facility] Contact Info) Description 07/18/2022 8:30 AM EDT TH Visit (TeleHealth) Weight and Wellness at [address] [phone] Adult BMI 39.0-39.9 kg/sq m Social History Tobacco Use Types Packs/Day Years Used Date Smoking Tobacco: Never Smokeless Tobacco: Never Sex and Gender Information Value Date Recorded Sex Assigned at Female 10/05/2021 8:56 AM EST Gender Identity Not on file Sexual Orientation Straight 10/05/2021 8: 56 AM EST documented as of this encounter Patient Instructions * Patient Instructions* Hailee Martínez RD - 07/18/2022 8:30 AM EDT Nutrition Goals: Establish exercise routine - goal of 150 minutes per week of aerobic exercise (treadmill, walking outside); resistance bands daily (alternate between upper and lower body); explore at home exercise options Choose protein first at all eating events; increase vegetable intake Continue to Practice Bariatric Drinking Behaviors - separate eating and drinking by 30 minutes bothbefore and after meal time; don't bring drinks to the table, consider choosing moist foods; work onsipping rather then gulping/chugging water documented in this encounter Progress Notes * Hailee Martínez RD - 07/18/2022 8:30 AM EDT Nutrition Intervention for Weight Management Initial RD visit with SIMONA [facility] 1980 Telehealth / telephone visit conducted while patient was at home at the following address: [address] [facility] [phone] Weight Today: Wt Readings from Last 3 Encounters: 06/06/22 103.4 kg (228 lb) 02/14/22 95.7 kg (211 lb) 01/02/22 101.6 kg (224 lb) BMI Readings from Last 3 Encounters: 06/06/22 39.14 kg/m?? 02/14/22 36.02 kg/m?? 01/02/22 38.24 kg/m?? Interview: Weight Loss History: See previous notes from this copywriter and [facility] provider for full account Typical Dietary Intake: 2-3meals/day 9am B: yogurt, piece of toast with peanut butter 11/12 L (skipped 1-2x/week): turkey and ham sandwich, ruvalcaba, mustard, lettuce, tomato OR fruit 5/6pm D: pasta OR sandwiches - BLT/turkey ham OR mac and cheese Sometimes 2-3pm Snack - fruit Typical Beverages: water - 4-5 16oz bottles/day; no caffeine; no carbonation; no alcohol; unsweetened tea; Appetite/Hunger: [x] feels managed with foods/meals outlined [...] week -can use therabands ??? Nutrition - 07/18/22 Nutrition Goals: ??? Establish exercise routine - goal of 150 minutes per week of aerobic exercise (treadmill, walking outside); resistance bands daily (alternate between upper and lower body); explore at home exercise options ??? Choose protein first at all eating events; increase vegetable intake ??? Continue to Practice Bariatric Drinking Behaviors - separate eating and drinking by 30 minutes both before and after meal time; don't bring drinks to the table, consider choosing moist foods; work on sipping rather then gulping/chugging water ??? sleep ?? Follow up with sleep, [...] to work on eating behaviors ?? Health Facilities Locator is sending hand-outs with exercises for mindful [...] all meals and snacks, eat protein first [] Total water intake [x] eating and drinking by 30 minutes on either side 90% before meals, 90% during meals,90% after meals [x] Sip rather than gulp [] Reduce coffee intake down to ~1 cup (caffeine) prior to surgery [] Reduce alcohol, ideally avoid [] Currently smoking? [] Former smoker, quit date: (2 months nicotine-free prior to surgery) Activity: walking dogs - 20 minute walk; has resistance bands don't know where they are; has treadmill; [] reviewed current goals [] updated goals Barriers to Change: none identified today Nutrition Goals updated today: (1) continue exercise routine - find resistance bands (2) protein atevery eating event (3) continue bariatric drinking behaviors Monitor/Evaluate: [x] Needs additional fuv scheduled with this copywriter in Return in about 1 month (around 08/17/2022) for RDKeely. (OR) [] Currently scheduled for: [] 1st consecutive monthly nutrition visit [] 2nd consecutive monthly nutrition visit [] 3rd consecutive monthly nutrition visit (OR) [] Patient has met requirement of 3 consecutive monthly nutrition visits but agrees that ongoing support would be helpful and feasible. Above determined to the best ability of this copywriter. Patient will contact bariatric surgery team for any official determination about about scheduling and insurance requirements ( ) Thank you Hailee Martínez MS RDN LD 30 minutes were spent in visit today, [...] psychologist to work on eating behaviors Health Facilities Locator is sending hand-outs with exercises for mindful [...] adult documented in this encounter Care Teams Second Hand Paper Machine Relationship Specialty Start Date End Date None None PCP - General 06/07/22 12/18/22 documented as of this encounter
--- OUTSIDE RECORDS SUMMARY | 2024-06-01 06:58 | XMS_ITS | Encounter Summary ---
Author Organization Formerly [facility] Address [facility] [place] [address] Care Team Providers Care Cryptologic Supervisor Name Role Phone None Primary Care Provider Unavailabl e Reason for Visit * Reason Comments Establish Care Encounter Details Date Type Department [facility] Team ([facility] Description 10/09/2022 1:00 PM EST Office Visit General Surgery at [place] [phone] Iram Borrero MD [facility] [place] [address] Anni Varela, BRYANNA [facility] [place] [address] Blaire Chowdhury, RD [facility] [place] [address] Pre-op evaluation; Obesity, unspecified classification, unspecified obesity type, unspecified whether serious comorbidity [...] Sign Reading Time Taken Comments Blood Pressure 119/64 10/09/2022 12:49 PM EST Pulse 66 10/09/2022 12:49 PM EST Temperature 36.8 ??C (98.2 ??F) 10/09/2022 1 2:49 PM EST Respiratory Rate 16 10/09/2022 12:4 9 PM EST Oxygen Saturation 98% 10/09/2022 12: 49 PM EST Inhaled Oxygen Concentration - - Weight 103.8 kg (228 lb 12.8 oz) 2021 12:49 PM EST Height 162.6 cm (5' 4.02) 10/09/2022 1 2:49 PM EST Body Mass Index 39.25 10/09/2022 12:49 PM EST documented in this encounter Patient Instructions * Patient Instructions* Blaire Chowdhury, RD - 10/09/2022 1:00 PM EST BARIATRIC SURGERY PROGRAM FIRST VISIT Contact information: [facility] Administrative staff: Lorraine [phone], Kelsey [phone] Dietitian: [phone] Surgeons/ nurse practitioner: [phone] Nurse line: [phone] Bariatric Surgery Program educational information: Read the Bariatric Surgery Program Educational Handbook thoroughly, highlight important areas to remember. Write down any questions that you may have to discuss at next visit. Bring the Handbook to ALL pre-operative visits. Keep the handbook in a safe place for easy retrieval. Your next visits: All visits take place in the General Surgery Clinic, Casing Flusher Area 4L 2nd visits with dietitian and nurse practitioner (Shared Medical Appointment) - Please note this visit is approximately 3 hours long Predicted weight loss with surgery is an estimated 30-70% of excess body weight, which would be a goal weight between 171-204#. Nutrition: Practice post-op GB diet recommendations prior to surgery to support post-op success and long-term weight loss: Eat 3 meals daily, spaced about 4-6 hours apart. Take your time when eating meals, at least 20-30 minutes per meal. Avoid soda and limit caffeine consumption. Stop caffeine 2 weeks prior to surgery. Sip 48-64 oz hydrating fluid daily between meals and avoid drinking with meals. Use smaller plates/bowls/utensils for meals and eat smaller portions. Plan meals 1 wk in advance and shop with a list. Start/Continue to keep a food journal particularly of frequently eaten food/meals. (See Education section below for frequently used Smartphone apps.) Exercise with the eventual goal of 30 minutes minimum 5 days per week or exercise as recommended byMD. Practice this Meal Format: Protein first at all meals! Only eat until full. Breakfast 1st Protein (15-20 grams) 2nd Fruit 3rd Starch Lunch and Dinner 1st Protein (20 grams) 2nd Non-Starchy Vegetables 3rd Starch 4th Fruit Snacks: 1-2 per day if physically hungry - choose a protein or a fruit Non starchy vegetables include all those except corn, peas, winter squash, beans, and potatoes Plan for post operative support: make sure that you have a plan for post- operative support including transportation to and from the hospital for surgery and follow up appointments. Questions for your doctor, specialist or pharmacist: Ask your doctor about medication suggestions if you currently take medications that are larger thanthe size of a tylenol. Large pills need to be crushed (if permitted by the drug monorail crane operator) or taken in liquid form for TWO WEEKS after surgery. Oral diabetes medication may not need to be taken after surgery. If you take anti-inflammatory medications like ibuprofen or steroid medications for arthritis or asthma, please check with your doctor. These medications will need to be held 1 week prior to and at least a few months after surgery. If you are having gastric bypass, anti-inflammatory medications will need to be used sparingly supervisor wound after surgery to decrease risk of ulcer. For women who take control or hormone medications: these medications must be stopped 1 month before and after surgery. Use alternative forms of control. To prevent in the first 2 years after surgery. The IUD and contraceptive implant are the most effective forms of control. Education: 1. Continue to read information about bariatric surgery- websites listed in your handbook. 2. Check out the [place] Society for Metabolic and Bariatric surgery (ASMBS) website for patient education - http://asmbs.org/patients 3. Nutrition and Activity apps- Baritastic, My Fitness Pal, Lose It 4. [facility] facebook page: [email or web address] documented in this encounter Progress Notes * Blaire Chowdhury RD - 10/09/2022 1:00 PM EST Bariatric Surgery Program Initial Nutrition Assessment Leandra Wilks is a 42 y.o. female being seen today for a preoperative evaluation in anticipationof bariatric-metabolic surgery. SUBJECTIVE: Interest in bariatric surgery: Pt has tried several weight loss attempts without half-way success.Has had a hard time losing on her own; thinks about her health issues and how much better she wouldfeel with weight loss. Pt started at [facility] for help with weight loss and [...] (lbs.) Wt. Regain (lbs.) Dates Duration Comments [facility]- Jill Farooq APRN and Hailee Martínez RD stable 2020 12 visits 06/07/21, 06/21/21, 07/20/21, 08/23/21, 10/05/21, 10/25/21, 12/13/21, 01/02/22, 02/14/22, 07/18/22, 08/23/22, 09/26/22 Starvation - 30+ 2020 3 months Strict fruit and veggie diet 08 27 2021 2 months No sweets 08 27 2021 3 months Exercise and no junk -20 5 2021 2 months Effective but right back to [...] with a provider in GI in 2009. Recent Changes in Dietary/Lifestyle Habits: [x] Smaller portions [] 3 meals per day [x] Eating slower [] More fruits, vegetables, and whole grains [x] Having protein at all meals, eating protein first- still working on this [] Decreasing carbohydrates [] Lower calorie cooking methods (baking, broiling, grilling, etc.) [x] Nutrition Counseling with [employer] and RD [] No longer buying tempting foods from grocery store [x] Not drinking with meals, sipping fluids throughout the day [] Cutting out soda [x] Cutting out fruit juice; eating fruit instead [] Increased physical activity [x] Pausing before eating a snack to assess if she's hungry Current Intake: Tracking Intake: not discussed Who does meal planning, shopping and cooking at home? Shares w her boyfriend Economic and/or time limitations: None. Dental Concerns: None. Reported intake: Grazing during the day Breakfast 10-11A: Smoothie- 2 glasses full: Snack Lunch Snack Supper 6P: honey bunches of oats, 2% milk Snacks ~12 oz sweetened pink lemonade - 11P-1A Beverages: usually 3-5 16 oz bottles water per day but not yesterday. smoothies- frozen fruit, fruit juice, Faroese yogurt- - a flour blender full, sometimes shares w her boys ETOH: less than once per month. Tobacco: Vaping for about 1 week a couple months ago. (Her son was vaping.) Rare marijuana- last time was over a year ago. How often meals eaten away from home: once per week. Supplements/Vitamins: women's one day gummies (2 per day) Physical activity: tries to build exercise into her day. Uses resistance bands a few times per week. Walking the dogs at least once per day. up and down apt stairs at least twice per day. Walks to the store Psychological indications: Evaluation completed on 02/21/22, 04/04/22, 07/11/22, 08/23/22. I recommend patient have a post-surgical follow-up scheduled with a [facility] psychologist for ~3 months after surgery; [...] her to go the [facility] in [place], [place] so she did and had a [...] 39.3 1st pre-op visit [facility] % Surgery 3 weeks post-op 4 months post-op [place] Body Weight (based on BMI of 25): 146# 30-70% Excess Weight Loss: 171-204#; 50% Excess Weight Loss: 187# SUMMARY: Leandra Wilks has been referred for nutrition evaluation and diet instruction in anticipation ofbariatric surgery. Previous conservative attempts at weight loss through dieting have been unsuccessful over the half-way. Predicted weight loss with surgery is an [...] Will discuss with Dr. Borrero and Anni Varela APRN. Discussed post- bariatric eating behaviors and encouraged pt to start practicing those more consistently - eating 3 meals per day, protein first at all meals, limit grazing, consuming 48 oz of noncaloric fluid per day. She is doing well not eating and drinking at the same time. PENDING INFORMATION: F/u in 2 months NUTRITION DIAGNOSIS: - Obesity related to history of physical inactivity and excessive energy intake as evidenced by BMIof 39.3. PLAN: 1) Patient to practice post-op GB diet recommendations prior to surgery to support post-op success and long-term weight loss: ??? Eat 3 meals daily, spaced about 4-6 hours apart. ??? Increase protein in smoothies via protein powder (decrease fruit juice/fruit) or try a premade protein drink such as [employer]. ??? Take your time when eating meals, at least 20-30 minutes per meal. ??? Avoid soda and limit caffeine consumption. Stop caffeine 2 weeks prior to surgery. ??? Sip 48-64 oz hydrating fluid daily between meals and avoid drinking with meals. ??? Use smaller plates/bowls/utensils for meals and eat smaller portions. ??? Plan meals 1 wk in advance and shop with a list. 2) Encouraged exercise as tolerated. 3) We reviewed the No Weight Gain Policy. 4) Patient to attend a pre-op educational class prior to surgery. Information given to patient: 1. [facility] Bariatric Surgery Education Handbook, a 102 page document (revision February 2012) which contains extensive information regarding pre and post- operative nutrition guidelines including: preop diet, Diet stages I-IV, hydration recommendations, protein guidelines, dumping syndrome, food intoleranc es, vitamin and mineral supplementation as well as a list of books and online bariatric resources. * Anni Varela APRN - 10/09/2022 1:00 PM EST Images from the original note were not included. [facility] Bariatric Surgery Evaluation Reason for consultation: Leandra is a 42 [...] Has not attended a Introduction to the [facility] Bariatric Surgery Programseminar, a comprehensive two hour meeting that provides a program overview, education on bariatric surgeries offered at [facility], risks and benefits, as well as patient expectations and follow up. [facility] Bariatric Surgery Program Educational seminars viewed 2. Bariatric Surgery Program evaluations with RD: Completed today 3. Program start weight: (06/17/21) 228 lbs WT at visit #1: Wt & BMI By Encounter Date Flowsheet Row TH Visit (TeleHealth) from 06/07/2022 in [facility] at [facility] TH Visit (TeleHealth) from 02/14/2022 in [facility] at [address] Weight 103.4 kg (228 lb) 1 06/06/2022 1301 95.7 kg (211 lb) [pt reported] 1 02/14/2022 1040 BMI 39.13 1 06/06/2022 1301 36.02 1 02/14/2022 1040 4. Gallbladder status: [] intact, not studied. [...] laxative or diuretic use to lose weight. ?? Leandra has a history of night eating. Has happened 2-3x in the last week (though with fruit). This is an ongoing issue over the last few years. Patient also has hx binge eating over the last few years, in remission since 2021 and hx excessive exercise (walking on the track for hours), none for about 2 years. ?? Leandra has struggled with depression/anxiety for many years. She reports she spends a couple ofdays in bed due to pain and depression (about once a month). She is working with a therapist (but no psychiatry or psychology). Medications are prescribed by her PCP (PRITI Infante). Leandra reports she had an admission for about 15 years ago (stayed at [facility] x 1 day). Patient Active Problem List Diagnosis ??? CHUN [...] Other [x] IBS-D (episodes once a week), usually every day Functional status: Is ambulation limited most or [...] General [] Current smoker within 1 year Pulmonary [] COPD (Severe) [] History of [...] HYSTERECTOMY, VAGINAL 05/12/2015 Current Outpatient Medications: ??? metFORMIN XR (Glucophage XR) 500 mg Tablet Sustained Release 24 hr, TAKE TWO TABLETS BY MOUTH TWICE A DAY ALWAYS TAKE WITH MEALS, Disp: 360 tablet, Rfl: 0 ??? naltrexone (Depade) 50 mg Tablet, Take 0.5 tablets by mouth 2 times daily., Disp: 30 tablet, Rfl: 1 ??? oxybutynin (DITROPAN XL) 15 mg Tablet Extended Rel 24 hr, , Disp: , Rfl: ??? propranoloL (Inderal) 20 [...] mg Capsule, Daily., Disp: , Rfl: ??? naproxen (NAPROSYN) 500 mg Tablet, TAKE ONE TABLET BY MOUTH TWICE A DAY WITH FOOD NEEDED FORPAIN, Disp: , Rfl: ??? latanoprost (XALATAN) 0.005 [...] Q ALCOHOL TOBACCO AND DRUG SCREENING TOOL 10/02/2022 How often did you have a drink [...] other brands)? No Diagnostic screenin. Lab data: will send at follow up 2. Psychological evaluation done by Crystal Ferro, PhD, [facility] Weight and Wellness : no contraindication to bariatric surgery from a psychological perspective. Per Dr. Ferro: ?? Ongoing Recommendations: ??? Continue to meet regularly with your therapist ??? Continue to abstain from binge eating ??? Continue to maintain bariatric habit changes (e.g., eating slowly, eating and drinking, small portions, increasing exercise) Meet with a [facility] psychologist for a post-surgical check-in [facility] Initial Responses 10/02/2022 URICA - Readiness Score 13.67 (Preparation State) WEL-SF Total Scores 80 PHQ-2 SubScore 0 (Brief screen negative) GAD2 Subscore 1 (Brief screen negative) MADY 7 Total Scores - PROMIS 10 Physical Scores 37.4 PROMIS 10 Mental Scores 50.8 Total REAP-S Scores 32 TFEQ - Uncontrolled Eating (UE) 33.33 TFEQ-Cognitive Restraint (CR) 66.67 TFEQ-Emotional Eating 38.89 Food Insecurity Score 2 [place] Category I Result 0 (Negative) [place] Category II Result 1 (Negative) [place] Category III 0 (Negative) [place] Sleep Apnea Total 1 (Low Risk) Schooling [...] nausea/vomiting [] blood in stool [x] diarrhea (once a week 6 episodes in a day) [] constipation [x] IBD patient unsure had colitis 15 years ago [facility] [] postprandial RUQ pain Neurologic: [] dizziness [...] [x] psychiatric or rehab admissions (remote past, [facility]) Physical exam: Vital signs: Patient Vitals for the past 24 hrs: Temp Pulse Resp BP SpO2 10/09/22 1249 36.8 ??C (98.2 ??F) 66 16 119/64 98 % Body mass index is 39.25 kg/m??. Neuro: Non-focal. Psych: Pleasant, conversant, normal [...] flat [] detached [] fearful [] sad ENT: Neck supple with normal ROM, no adenopathy or thyromegaly. Lungs: CTA bilaterally without wheezing. Heart: RRR, no murmur appreciated. Abdomen: Obese, soft, non- tender. Prior incisions: Well healed laparoscopy scars.. Hernias: None. Extremities: no lower extremity edema. Skin: No areas of skin breakdown. Obesity distribution: [x] Central [] Gyneoid Assessment/ Plan: 42 y.o. female with morbid [...] her medical record, history and physical exam, further evaluation will be required before proceeding with scheduling surgery. She has had an opportunity to have all her questions answered and is in agreement with the plan of care. She was encouraged to call with any questions or concerns. This patient was seen in conjunction with Dr. Borrero as part of a shared visit. Pending: ?? Will obtain [facility] records re: patient unsure if hx inflammatory bowel disease. ?? Discontinue NSAIDs if interested in pursing bypass (patient aware that NSAIDs cannot be taken after RNY) ?? Continue to work on night eating (consider CBTI via Sleep Medicine), continue working with therapist ??? Continue to work on depression. Consider referral to psychiatry (via PCP - will PCP to discuss) ??? Follow up in 2 months with [facility] SPLITTING MACHINE TENDER/CHANG/ ??? Preoperative Group Class ??? CBC and CMP within 6 months of surgery, per MBSAQ accredited bariatric center guidelines. Will send for labs at follow up. ??? Ongoing weight loss encouraged * Iram Borrero MD - 10/09/2022 1:00 PM EST Attending addendum: I have seen and examined the patient jointly with Anni Banks APRN. In brief, this is a 42 y.o. year old female with Body mass index is 39.25 kg/m??., presenting for evaluation prior to bariatric surgery. I agree with the events, physical exam findings and assessment/plan as outlined. After discussion with our team and the patient there are a few concerns we would like to address prior to proceeding with surgery: 1. BMI 39 with mild CHUN as comorbidity; I believe that she would benefit from bariatric surgery from a medical standpoint. Will seek pre-authorization from her insurance company as there are concernsshe may be denied. 2. Persistent insomnia and night eating; Has been previously recommended to undergo CBT for her insomnia. Would like to see this resolved and under control prior to surgery. 3. Poorly controlled depression; patient reports once a month having a period of several days whereshe cannot get out of bed due to her depression. I think she would benefit from seeing a psychiatrist for medication adjustment given these episodes which do not appear controlled. In terms of which surgery may be the best option once she is ready, I think she is a better sleeve candidate given her frequent NSAID use a hx of diarrhea. She is interested in a bypass and so I recommended that she try to cut down on her NSAID use in the meantime while working on the above. MD Iram Nguyen MD documented in this encounter Plan of [...] psychologist to work on eating behaviors [employer] is sending hand-outs with exercises for mindful [...] as of this encounter Visit Diagnoses Diagnosis Pre-op evaluation Preoperative examination, unspecified Obesity, unspecified classification, unspecified obesity type, unspecified whether serious comorbidity present documented in this encounter Care Teams Cryptologic Supervisor Relationship Specialty Start Date End Date None None PCP - General 06/07/22 12/18/22 documented as of this encounter
--- OUTSIDE RECORDS SUMMARY | 2024-06-01 06:58 | XMS_ITS | Encounter Summary ---
Author Organization [facility] Address [facility] [place] [address] Care Team Providers Care Dent Remover Name Role Phone Debby Puri MD Primary Care Provider [phone] Reason for Referral * Consultation (Routine) - Canceled Specialty Diagnoses / Procedures Referred By Contangelo t Referred To Contact Weight and Wellness Diagnoses Eating disorder, unspecified type Crystal Ferro, PhD [facility] [place] [address] Loli Valerio, PhD [facility] [place] [address] Referral ID Status Reason Start Date Expiration Date V isits Requested Visits Authorized [id number] Canceled Consult, Test & Treat 04/04/2022 04/04/2023 1 1 Encounter Details Date Type Department Care Team (Latest Contact Info) Description 04/04/2022 11:30 AM EDT TH Visit (TeleHealth) Weight and Wellness at [address] [phone] Crysatl Ferro, PhD [facility] [place] [address] Eating disorder, unspecified type (Primary Dx); Trauma and stressor-related disorder; Generalized anxiety disorder; Unspecified mood (affective) disorder Social History Tobacco Use Types Packs/Day Years Used Date Smoking Tobacco: Never Smokeless Tobacco: Never Sex and Gender Information Value Date Recorded Sex Assigned at Female 10/05/2021 8:56 AM EST Gender Identity Not on file Sexual Orientation Straight 10/05/2021 8: 56 AM EST documented as of this encounter Progress Notes * Crystal Ferro, PhD - 04/04/2022 11:30 AM EDT BARIATRIC SURGERY FOLLOW UP NOTE N [facility] WEIGHT AND WELLNESS AT [facility] [address] [facility] [phone] Dept: [phone] 04/04/2022 11:30AM Leandra Wilks is a 42 y.o. female who was referred for evaluation and preparation for potential bariatric surgery.Leandra was previously evaluated on 02/21/22, and concern were raised about bariatric surgery readiness. Leandra was seen for 30 minutes. Patient was alone, and was seen via Telehealth. Leandra Wilks gave permission for and was seen for today's appointment with a Telehealth visit. During this visit they were located at home in [place], [place]. Leandra Wilks is aware that for any urgent matter they can call [phone].. Plan: At today's visit we identified several ongoing [...] for her ongoing stress and trauma-related difficulties. As of 04/04/22 patient is no longer on bariatric pathway The follow up plan is as follows: Follow up with Crystal in 2 weeks, ACT group referral placed DIAGNOSIS (based on information gathered in this evaluation) Unspecified eating disorder Trauma and stressor related disorder Unspecified mood disorder Generalized anxiety disorder The above assessment and plan was based on the following information obtained during the appointment. Please note section in blue indicates updated information from the previous evaluation: WEIGHT Initial Weight: 230lbs Weight at previous evaluation: 211 lbs Current Weight as of 04/04/2022: 211 lbs (no updated weight) Weight changes since evaluation: not known PROBLEM EATING BEHAVIORS From previous evaluation: History of mindless/stress eating (i.e., eating for emotional reasons rather than hunger): yes, longstanding history but stated it's well-managed most days If h/o stress eating, last episode: 1-2 weeks ago, stated her medications are helpful because she is not as interested in food. Crocheting is helpful, avoids buying common emotional eating foods and keeps healthier foods in thehome Otherwise eating behaviors were not assessed d/t time constraints 04/04/2022: Current/recent binging (i.e., large amounts of food over a 2-hour period, feeling loss of control and overly full): yes If h/o binging, last binge: 3 days ago - bought a box of ice cream bars, ate 4 in a single sitting.[place] a sense of less control, described feeling guilty, I shouldn't have done that. Had difficulty identifying why she did it. Reported this was the first time in a month that she has binged. Reported crocheting, cleaning, walking to the store help her manage this. Discussed ACT Group and patient was open to pursuing this. Current/recent bulimic vomiting or other compensatory strategies (i.e., laxatives, diuretics, restricting): She reported a history of significant restriction for days at time, including over the pasttwo days. She recalled her eating patterns over the past two days: smoothie for breakfast yesterday, bowl of cereal for dinner, today she has not eaten yet (appt at 11:30AM). She reported around once a month she will go 2-3 days of intentionally restricting and eating very minimally. Discussed how this backfires and creates more challenges with her eating. If h/o bulimic vomiting or other compensatory strategies, last episode: Ongoing Current/recent nighttime eating (i.e., skipping daytime meals and eating large amounts at dinner orwaking at night to eat): no If h/o nighttime eating, last episode: n/a Current/recent grazing (i.e., continuously eating small snacks): Yes, in the past If h/o grazing, last episode: ~2 weeks ago Current/recent mindless/stress eating (i.e., eating for emotional reasons rather than hunger): yes If h/o stress eating, last episode: 2-3 days ago, tough day so she ate quite a bit Current/recent over eating (i.e., eating to the point of being uncomfortably full): yes If h/o over eating, last episode: A few days ago SURGERY From previous evaluation: Patient reported her [...] pain - encouraged more focus on these. 04/04/2022: Not assessed - patient is pausing with bariatric surgery program at this time POST SURGERY EATING HABIT CHANGES AND READINESS From previous evaluation: Not previously assessed due to time constraints 04/04/2022: Not assessed - patient is pausing with bariatrics at this time ??? Following a consistent meal pattern: Aware of the need and practicing about 0% of the time Schedule of current meals and snacks: breakfast soon after waking up, skips lunch, dinnertime laterin the evening but doesn't feel like cooking so she might eat a bowl of cereal CURRENT SOCIAL SUPPORT NETWORK From previous evaluation: [...] reliable source of support at this time. 04/04/2022: Patient denied any changes to her support system, shared that she still experiences significant stress related to being estranged from one of her sons MENTAL HEALTH UPDATE: Described mood as not too bad, mostly happy. She reported ongoing financial strain, stress related to her estranged relationship with one of her children. Denied any changes to her medication. Denied suicidal ideation. MENTAL HEALTH PROVIDER COMMUNICATION (IF NEEDED) She reported not getting a therapist yet, thought about it but did not take any steps. Discussed first steps in getting a therapist, looking online and talking to her PCP. Patient was agreeable. HEALTH BEHAVIORS From previous evaluation: No previously identified concerns ADHERENCE AND ATTENDANCE From previous evaluation: Not previously assessed due to time constraints 04/04/2022: Not assessed, patient is pausing bariatric program The assessment and plan for Leandra Wilks are detailed at the beginning of this report. rCystal Ferro, PhD documented in this encounter Plan of Treatment Scheduled Procedures Name Priority Associated Diagnoses Date/Ti me COLONOSCOPY, DIAGNOSTIC (WRV U 3.26) Biliary stricture Screening for colon cancer Scheduled Referrals Name Type Priority Associated Diagnoses Orde r Schedule Referral to [facility] Outpatient Referral Routine Eating disorder, unspecified type Ordered: 04/04/2022 documented as of this encounter Goals Goal [...] psychologist to work on eating behaviors Health Principal Archaeologist is sending hand-outs with exercises for mindful [...] as of this encounter Visit Diagnoses Diagnosis Eating disorder, unspecified type- Primary Trauma and stressor-related disorder Generalized anxiety disorder Unspecified mood (affective) disorder documented in this encounter Care Teams Dent Remover Relationship Specialty Start Date End Date Debby Puri MD [address] [place] [address] PCP - General Family Medicine 07/13/20 06/06/22 documented as of this encounter
--- OUTSIDE RECORDS SUMMARY | 2024-06-01 06:58 | XMS_ITS | Encounter Summary ---
Author Organization [facility] Address [facility] [place] [address] Care Team Providers Care Hydro Electric Station Operator Name Role Phone Debby Puri MD Primary Care Provider [phone] Reason for Referral * Consultation (Routine) - Closed Specialty Diagnoses / Procedures Referred By Chela doyle Referred To Contact Weight and Wellness Diagnoses Class 2 severe obesity due to excess calories with serious comorbidity and body mass index (BMI) of 39.0 to 39.9 in adult Jill Farooq APRN [facility] [place] [address] [facility] [address] [place] [phone] Referral ID Status Reason Start Date Expiration Date V isits Requested Visits Authorized [id number] Closed Consult, Test & Treat 01/02/2022 01/02/2023 1 1 Encounter Details Date Type Department Care Team (Late st Contact Info) Description 01/02/2022 Orders Only Weight and Wellness at [facility] [address] [place] [phone] Jill Farooq HOSPITAL STAFF PHARMACIST [facility] [place] [place] [address] Class 2 severe obesity due to excess [...] Type Priority Associated Diagnoses Orde r Schedule Amb Referral to [facility] Psych Evaluation Outpatient Referral Routine Class 2 severe obesity due to excess calories with serious comorbidity and body mass index (BMI) of 39.0 to 39.9 in adult Ordered: 01/02/2022 documented as of this encounter Goals Goal [...] psychologist to work on eating behaviors Health Instructional Technology Facilitator is sending hand-outs with exercises for mindful [...] adult documented in this encounter Care Teams Hydro Electric Station Operator Relationship Specialty Start Date End Date Debby Puri MD [address] [place] [address] PCP - General Family Medicine 07/13/20 06/06/22 documented as of this encounter
--- OUTSIDE RECORDS SUMMARY | 2024-06-01 06:58 | XMS_ITS | Encounter Summary ---
Author Organization [facility] [place] [address] Care Team Providers Care Publication Director Name Role Phone Debby Puri MD Primary Care Provider Encounter Details Date Type Department Care Team ([facility] Contact Info) Description 12/13/2021 10:30 AM EST TH Visit (TeleHealth) Weight and Wellness at [address] [phone] [address] Adult BMI 38.0-38.9 kg/sq m Social History Tobacco Use Types Packs/Day Years Used Date Smoking Tobacco: Never Smokeless Tobacco: Never Sex and Gender Information Value Date Recorded Sex Assigned at Female 10/05/2021 8:56 AM EST Gender Identity Not on file Sexual Orientation Straight 10/05/2021 8: 56 AM EST documented as of this encounter Patient Instructions * Patient Instructions* Hailee Martínez RD - 12/13/2021 10:30 AM EST Nutrition Goals: ??? Establish exercise routine - goal of 150 minutes per week of aerobic exercise (treadmill, walking outside); resistance bands daily (alternate between upper and lower body); explore at home exercise options ??? Choose protein first at all eating events - plain salvadorean yogurt, with fruit, 1 tsp ground flaxseed, unsweetened coconut flakes, nuts/seeds; vegetables with peanut butter/doshi dip/salvadorean yogurt dips/hard boiled egg/slice of deli meat/cheese stick; fruits with nuts/nut; protein on salad; butter/cheese/1/2 cup lowfat cottage cheese/salvadorean yogurt ??? Practice Bariatric Drinking Behaviors - separate eating and drinking by 30 minutes both before and after meal time; don't bring drinks to the table, consider choosing moist foods Continued Goals: ??? Increase vegetables at lunch [...] resistance bands, going for a walk, etc) documented in this encounter Progress Notes * Hailee Martínze RD - 12/13/2021 10:30 AM EST Nutrition Intervention for Weight Management Initial RD visit with SIMONA Thompson 1980 Assessment/Nutrition Diagnosis: Pt at increased nutritional risk related to excessive calorie intake and sub optimal physical activity resulting in overweight/obesity as evidenced by BMI and diet recall Telehealth / telephone visit conducted while patient was at home at the following address: [address] [place] [id number] Weight Today: Wt Readings from Last 3 Encounters: 12/12/21 102.5 kg (226 lb) 10/25/21 101.2 kg (223 lb) 10/05/21 104.3 kg (230 lb) BMI Readings from Last 3 Encounters: 12/12/21 38.79 kg/m?? 10/25/21 38.07 kg/m?? 10/05/21 39.27 kg/m?? Interview: would like to pursue bariatric surgery; new medication - naltrexone, working well, having some nausea will message provider today; fruit and vegetables are current go to, reduce portion sizes due to medication Weight Loss History: See previous notes from this keno writer / runner and [facility] provider for full account Typical Dietary Intake: 10am B: 2 bowls of cereal - cinnamon toast crunch, with milk OR 1 [place] bagel and cream cheese; water OR dietz's smoothie - strawberry banana 1pm L daily: salad - ranch, tomato, cucumber, lettuce; 6pm D: sandwich - roast beef, cheese, lettuce, 7pm S (routine): yogurt popsicles Typical Beverages: 2-3x/day tea, sweetened; water 4-5 bottles 16 oz; limited juice; no carbonation;no caffeine; no alcohol; no alyssa; smoothie with breakfast 1x/week from [employer]; Appetite/Hunger: [x] feels managed with foods/meals outlined above [] discussed meal/snack schedule adjustment today- see goals [] patient identifies eating for reasons other than hunger- see interview above [] Current food Tracking [x] discussed potential benefit starting food tracking - [...] week -can use therabands ??? Nutrition - 10/25/21 Nutrition Goals: ??? Establish exercise routine - goal of 150 minutes per week of aerobic exercise (treadmill, walking outside); resistance bands daily (alternate between upper and lower body) ??? Increase protein at breakfast and dinner - plain salvadorean yogurt, with fruit, 1 tsp ground flaxseed, unsweetened coconut flakes, nuts/seeds; vegetables with peanut butter/doshi dip/salvadorean yogurt dips/hard boiled egg/slice of deli meat/cheese stick; fruits with nuts/nut butter/cheese/1/2 cup lowfat cottage cheese/salvadorean yogurt ??? Increase vegetables at lunch and dinner - choose 1/2 plate vegetables, 1/4 plate protein and 1/4 plate unprocessed high fiber carbohydrate Continued Goals: ??? Establish bedtime routine - dim lights, [...] to work on eating behaviors ?? Health Video Player Mechanic is sending hand-outs with exercises for mindful eating, The Pause/STOP and Urge surfing. Patient will review and try implementing some behaviors before we meet again. Bariatric eating behaviors introduced or reviewed: [] Stop eating at comfortable full point (eating slowly to know, chewing thoroughly) [] Any binging identified? (6 months no binging prior to surgery) [x] Regular meal pattern, avoid grazing, reasonable snack frequency [x] Plan protein at all meals and snacks, eat protein first [] Total water intake [x] eating and drinking by 30 minutes on either side [x] Sip rather than gulp [] Reduce coffee intake down to ~1 cup (caffeine) prior to surgery [] Reduce alcohol, ideally avoid [] Currently smoking? [] Former smoker, quit date: (2 months nicotine-free prior to surgery) Activity: limited movement due to weather; has exercise bands [x] reviewed current goals [] updated goals Barriers to Change: none identified today Nutrition Goals updated today: (1) choose exercise (2) protein at every meal (3) bariatric drinkingbehaviors Monitor/Evaluate: [x] Needs additional fuv scheduled with this keno writer / runner in 2 months (OR) [] Currently scheduled for: [] 1st consecutive monthly nutrition visit [] 2nd consecutive monthly nutrition visit [] 3rd consecutive monthly nutrition visit (OR) [] Patient has met requirement of 3 consecutive monthly nutrition visits but agrees that ongoing support would be helpful and feasible. Above determined to the best ability of this keno writer / runner. Patient will contact bariatric surgery team for [...] psychologist to work on eating behaviors Health Video Player Mechanic is sending hand-outs with exercises for [...] this encounter Visit Diagnoses Diagnosis Adult BMI 38.0-38.9 kg/sq m Body Mass Index 38.0-38.9, adult documented in this encounter Care Teams Publication Director Relationship Specialty Start Date End Date Debby Puri MD [address] [place] [address] PCP - General Family Medicine 07/13/20 06/06/22 documented as of this encounter
--- OUTSIDE RECORDS SUMMARY | 2024-06-01 06:58 | XMS_ITS | Encounter Summary ---
Author Organization [facility] Address [facility] [place] [address] Care Team Providers Care Library Attendant Name Role Phone Debby Puri MD Primary Care Provider [phone] Encounter Details Date Type Department Care Team (Late st Contact Info) Description 05/10/2022 2:00 PM EDT Office Visit Sleep Center at [facility] [address] [place] [phone] Flora Olivares, RT CHUN on CPAP Social History Tobacco Use Types Packs/Day Years Used Date Smoking Tobacco: Never Smokeless Tobacco: Never Sex and Gender Information Value Date Recorded Sex Assigned at Female 10/05/2021 8:56 AM EST Gender Identity Not on file Sexual Orientation Straight 10/05/2021 8: 56 AM EST documented as of this encounter Progress Notes * Flora Olivares, SANITIZER - 05/10/2022 2:00 PM EDT Sleep Medicine Clinical Health Specialist Desensitization/Mask Fit Clinic note: HPI: Ms. Leandra Wilks is a 42 y.o. female seen for follow-up of obstructive sleep apnea. Compliance Card Data: Date Range: 04/10/2022-05/09/2022 Setting: Autoset 5-15 cm H20 ( median 8.1/ 95th 12.8) Residual AHI: 3.5/hr Vibratory Snore Index: n/a % Night in Large Leak: Median 7.2/ 95th 20.4 Average usage days used-Hours: 2 minutes ( days used 20 minutes) # Days of usage: 3/30 % Days used > 4 hours 0 % Total % Days used 10 % Interface (s) used: Dream wear full face mask- using at home DreamWear Under the nose- small/ medium cushion DreamWear silicone pillows- small cushion DreamWear Gel pillows- small cushion DreamWear Wisp- Small cushion, small headframe PAP pressures used: AutoSet 5-15 cm H20 PAP equipment/interfaces reviewed: Dream wear full face mask- using at home DreamWear Under the nose- small/ medium cushion DreamWear silicone pillows- small cushion DreamWear Gel pillows- small cushion DreamWear Wisp- Small cushion, small headframe Patient Response: Ms Wilks presents to the [...] in 6-8 weeks for a compliance visit. Physical Exam: DERM: Skin: none Time spent face to face: 45 Min. Reccomendations: 1) [facility] Script: 2) Follow-up: RTC 6-8 weeks in PAP clinic. The patient indicates understanding of these issues and agrees with the plan. documented in [...] psychologist to work on eating behaviors Health Hydrometer Calibrator is sending hand-outs with exercises for mindful [...] as of this encounter Visit Diagnoses Diagnosis CHUN on CPAP Obstructive sleep apnea (adult) (pediatric) documented in this encounter Care Teams Library Attendant Relationship Specialty Start Date End Date Debby Puri MD [address] [place] [address] [address] [place] [address] PCP - General Family Medicine 07/13/20 06/06/22 documented as of this encounter
--- OUTSIDE RECORDS SUMMARY | 2024-06-01 06:58 | XMS_ITS | Encounter Summary ---
Author Organization [facility] Address [facility] [place] [address] Care Team Providers Care Vermin Exterminator Name Role Phone Debby Puri MD Primary Care Provider [phone] Reason for Visit * Diagnostic Test (Routine) - Closed Specialty Diagnoses / Procedures Referred By Chela doyle Referred To Contact Sleep Center Diagnoses Snoring Procedures Sleep Study Diagnostic PSG / Split Night Sleep Study Diagnostic PSG / Split Night PSG Sharla Kirkland MD [facility] [place] [address] [facility] Sleep Medicine [address] [place] [address] Referral ID Status Reason Start Date Expiration Date V isits Requested Visits Authorized [id number] Closed Specialty Service Requested 09/26/2021 09/26/2022 1 1 Encounter Details Date Type Department Care Team (Late Contact Info) Description 12/12/2021 7:30 PM EST Procedure visit Sleep Center at [facility] [address] [place] [address] Sharla Kirkland MD [facility] [place] [address] CHUN (obstructive sleep apnea) (Primary Dx); Snoring Social History Tobacco Use Types Packs/Day Years Used Date Smoking Tobacco: Never Smokeless Tobacco: Never Sex and Gender Information Value Date Recorded Sex Assigned at Female 10/05/2021 8:56 AM EST Gender Identity Not on file Sexual Orientation Straight 10/05/2021 8: 56 AM EST documented as of this encounter Last Filed Vital Signs Vital Sign Reading Time Taken Comments Blood Pressure 128/78 12/12/2021 4:19 AM EST Pulse 66 12/12/2021 4:19 AM EST Temperature - - Respiratory Rate - - Oxygen Saturation 98% 12/12/2021 4:19 AM EST Inhaled Oxygen Concentration - - Weight 102.5 kg (226 lb) 12/12/2021 4:19 AM EST Height 162.6 cm (5' 4) 12/12/2021 4:19 AM EST Body Mass Index 38.79 12/12/2021 4:19 AM EST documented in this encounter Progress Notes * Sharla Kirkland MD - 12/12/2021 7:30 PM EST Images from the original note were not included. Overnight Polysomnogram Report History Of Present Illness: Leandra Wilks is a 41 yo who presents for an full in lab polysomnogram in the setting of reported loud snoring, poor sleep, and history of fibromyalgia. She had a home sleep study in Aug 2021 which was non- diagnostic for CHUN. Polysomnography: The patient's sleep was evaluated for one night at the [facility]. Sleep was monitored in accordance with recommended AASM guidelines. The recording also included oral/nasal airflow, chest and abdominal respiratory effort, nasal pressure, single channel EKG, intercostalEMG, bilateral tibialis EMG, and oxygen saturation (by pulse oximeter). Report - Sleep/EEG: Baseline respiratory monitoring was performed from 21:27 to 6:04 yielding a total sleep time of 454 min with all stages of sleep seen. REM accounted for 18 % of the total sleep time. Shespent 64% of the time sleeping supine. Sleep was interrupted at times. Sleep efficiency was mildly reduced at 88%. No major EEG abnormalities were noted. - Respiratory: Obstructive sleep apnea of an overall mild degree was noted with oxygen desaturations to a low of 92 %. The overall AHI was 7/hr with a CMS AHI of 1/hr. In addition to the scored events, there was evidence of more subtle air flow obstruction and snoring that was disruptive of sleep. Mild to moderate snoring was observed. Mean SpO2 was 96%, min 92%. - EKG: Normal sinus rhythm, mean 70 bpm. - EMG: Unremarkable. Pre-study mask fit: Preferred Dreamwear FFM, small/small - COMMENTS: Head of bed: flat Post study questionnaire: The patient reported sleeping average and feeling average on the morning after testing. Technical quality of the study: good Assessment: Leandra Wilks is a 41 yo [...] sinus rhythm. No motor disorder was identified. Recommendations: In the setting of reported symptoms, treatment of mild CHUN may be of benefit to improve sleep quality and next day sleepiness. CPAP is the recommended primary modality for treatment.Alternative options are less favored and include an oral appliance or surgery. Conservative strategies may be of additional benefit and include weight loss, avoiding the supine position, treatment ofnasal congestion, and avoiding sedatives. - Trial of AUTOPAP 5-15 cm in an effort to improve sleep quality. - Conservative options including weight loss, avoiding the supine position, treatment of any nasal congestion and avoiding sedative before bed are also recommended. Sharla Kirkland MD [facility] REPORT of Diagnostic Polysomnography Patient Name: Leandra Wilks Study Date: 12/12/2021 Age & Sex: 41 y.o. Female Height: 5'4 Date of : 1980 Weight: 226 lbs BMI: 38.8 Referring Provider: Recording Technologist: BLANCHE ENGEL Scoring Technologist: BLANCHE CORDERO Sleep Fellow: Sleep Specialist: SHARLA KIRKLAND M.D. Scoring Technologist Comments: ECG: Sinus Ectopy: None noted Description of Study: Diagnostic polysomnography was performed utilizing frontal, central & occipital EEG, EOG, submentalis EMG, oronasal thermocouple, nasal pressure, ECG, thoracic and abdominalinductance plethysmography, right and left anterior tibialis EMG, snore sensor, and pulse oximetry according to AASM established guidelines. Study Details & Sleep Architecture Diagnostic Start Time (Lights Off): 21:27:09 Total Recording Time: 517.5 min Diagnostic End Time (Lights On): 06:04:39 Total Sleep Time (minutes): 454.0 Total Num. of Stage Shifts: 177 Total Sleep Time (hrs:min): 7:34.0 Total Num. of Awakenings: 27 Sleep Onset Latency: 13.5 min Total Num. of Trans. to N1: 66 Sleep Efficiency: 87.7% Total Num. of REM Periods: 2 Stage Results: Time (minutes) %TST Latency (minutes) WASO: 50.0 - - N1: 46.5 10.2 0.0 N2: 278.0 61.2 2.5 N3: 48.0 10.6 14.0 REM: 81.5 18.0 171.0 159.5 (minus wake) Arousal Counts: NREM REM Total Spontaneous: 92 (14.8/hr) 16 (11.8/hr) 108 (14.3/hr) Sum of All Arousals: 135 (21.7/hr) 18 (13.3/hr) 153 (20.2/hr) Spontaneous arousals include only EEG arousals not associated with a respiratory event or PLM. Body Position: Supine Non-Supine Non-REM: 250.0 min 122.5 min REM: 42.5 min 39.0 min Total Sleep: 292.5 min (64.4%) 161.5 min (35.6%) Respiratory Events Apneas Obstructive Mixed Central Total Apneas Total Count: 0 0 0 0 Mean Duration (sec): 0 0 0 0 Longest Duration (sec): 0 0 0 - Index (REM/NREM): 0.0 / 0.0 0.0 / 0.0 0.0 / 0.0 0.0/ 0.0 Index (Sup./Non-Sup.): 0.0 / 0.0 0.0 / 0.0 0.0 / 0.0 0.0/ 0.0 Index (Total): 0.0 0.0 0.0 0.0 Hypopneas & RERAs Hypopnea Definitions: Hypopnea* CMS Hypopnea AASM Central Hypopneas Hypopneas All RERA Total Count: 4 49 0 49 0 Mean Duration (sec): 16.8 14.9 0.0 15 0 Longest Duration (sec): 19.9 22.0 0.0 22 0 Index (REM/NREM): 1.5/0.3 2.2/7.4 0.0 / 0.0 2.2/ 7.4 0.0 0.0 Index (Sup./Non-Sup.): 0.4 / 0.7 7.0/ 5.6 0.0 / 0.0 7.0/ 5.6 0.0 / 0.0 Index (Total): 0.5 6.5 0.0 6.5 0.0 *CMS-defined hypopneas include only hypopneas with a >=4% oxygen desaturation. Includes hypopneas with an arousal or with a 3%-4% desaturation. Periodic Breathing Total Sleep Time Time (minutes) 0.0 Time (%Sleep Time) 0.0 AHI: Includes all apneas & all hypopneas associated with an arousal or a ? 3% desaturation. Supine Non-Sup. REM NREM Total Count: 34 15 3 46 49 Index (events/hr): 7.0 5.6 2.2 7.4 AHI = 6.5 CMS AHI: Includes all apneas & only hypopneas associated with a ? 4% desaturation. Supine Non-Sup. REM NREM Total Count: 2 2 2 2 4 Index (events/hr): 0.4 0.7 1.5 0.3 CMS = 0.5 Obstructive AHI: Includes obstructive & mixed apneas as well as all hypopneas. Excludes centralapneas and RERAs. Supine Non-Sup. REM NREM Total Count: 34 15 3 46 49 Index (events/hr): 7.0 5.6 2.2 7.4 OAHI = 6.5 RDI: Includes all apneas, all hypopneas, all RERAs, and all ???Unsure??? events. Supine Non-Sup. REM NREM Total Count: 34 15 3.0 45.9 49 Index (events/hr): 7.0 5.6 2.2 7.4 RDI = 6.5 Oxygen Saturation Details SpO2 Awake NREM REM All Sleep FAWN Report Sleep Mean: 97% 96% 96% 96% 3% FAWN 1.0 1.2 Minimum: - 93% 92% 92% 4% FAWN 0.6 0.7 SpO2 Awake (minutes) NREM (minutes) REM (minutes) All Sleep (minutes) ?90% 0.0 0.0 0.0 0.0 ?89% 0.0 0.0 0.0 0.0 ?88% 0.0 0.0 0.0 0.0 90-99% 54.7 370.5 81.5 452.0 80-89.9% 0.0 0.0 0.0 0.0 79-79.9% 0.0 0.0 0.0 0.0 60-69.9% 0.0 0.0 0.0 0.0 50-59.9% 0.0 0.0 0.0 0.0 ?50% 0.0 0.0 0.0 0.0 Cardiac Details Heart Rate (bpm) Total Study NREM REM All Sleep Minimum - 59 64 59 Maximum 98 95 92 95 Mean - 68 77 70 Limb Movement Details Periodic Limb Movements Total PLMs (and Index) PLMs w/ Arousals (and Index) Wake (after ???Lights Off???): 0 (0.0/hr) 0 (0.0/hr) NREM: 0 (0.0/hr) 0 (0.0/hr) REM: 0 (0.0/hr) 0 (0.0/hr) Total Sleep: 0 (0.0/hr) 0 (0.0/hr) Graphs PLMs Body Position Supplemental Oxygen documented in this encounter Plan of Treatment Scheduled Procedures Name Priority Associated Diagnoses Date/Ti ct COLONOSCOPY, DIAGNOSTIC (WRV U 3.26) Biliary stricture [...] psychologist to work on eating behaviors Health Nurse Outreach Case Manager is sending hand-outs with exercises for mindful eating, The Pause/STOP and Urge surfing. Patient will review and try implementing some behaviors before we meet again. movement Lifestyle On track(2021 10:29 AM EST) Jill Colmenares, BLISTER PACK OPERATOR Note: Exercise goal is 150 min [...] of this encounter Visit Diagnoses Diagnosis CHUN (obstructive sleep apnea)- Primary Obstructive sleep apnea (adult) (pediatric) Snoring Other dyspnea and respiratory abnormality documented in this encounter Care Teams Vermin Exterminator Relationship Specialty Start Date End Date Debby Puri MD [address] [place] [address] PCP - General Family Medicine 07/13/20 06/06/22 documented as of this encounter
--- OUTSIDE RECORDS SUMMARY | 2024-06-01 06:58 | XMS_ITS | Encounter Summary ---
Author Organization [facility] [place] [address] Care Team Providers Care Service Station Equipment Mechanic Name Role Phone None Primary Care Provider Paytonabl e Encounter Details Date Type Department Care Team ([facility] Contact Info) Description 08/23/2022 Notes Only Weight and Wellness at [address] [address] Crystal Ferro, PhD [facility] [address] Social History Tobacco Use Types Packs/Day Years Used Date Smoking Tobacco: Never Smokeless Tobacco: Never Sex and Gender Information Value Date Recorded Sex Assigned at Female 10/05/2021 8:56 AM EST Gender Identity Not on file Sexual Orientation Straight 10/05/2021 8: 56 AM EST documented as of this encounter Progress Notes * Crystal Ferro, PhD - 08/23/2022 1:42 PM EDT 08/23/22 Patient met with Hailee Martínez RD today and we followed up via [facility]. She denied any binge eating in the past 6 months and reported she continues to meet with her therapist. She shared that she has also been using resistance bands regularly. At our last visit (07/11/22), patient was doing well and just needed to reach the full 6 months of abstaining from binge eating to earn her green light. As of today, patient has earned a GREEN LIGHT with recommendations. I recommend patient have a post-surgical follow-up scheduled with a [facility] psychologist for ~3 months after surgery. Ongoing Recommendations: ?? Continue to meet regularly with your therapist ?? Continue to abstain from binge eating ?? Continue to maintain bariatric habit changes (e.g., eating slowly, eating and drinking, small portions, increasing exercise) ?? Meet with a [facility] psychologist for a post-surgical check-in Crystal Ferro, PhD documented in this encounter [...] psychologist to work on eating behaviors Health Special Procedures Nurse is sending hand-outs with exercises for [...] on filedocumented in this encounter Care Teams Service Station Equipment Mechanic Relationship Specialty Start Date End Date None None PCP - General 06/07/22 12/18/22 documented as of this encounter
--- OUTSIDE RECORDS SUMMARY | 2024-06-01 06:58 | XMS_ITS | Encounter Summary ---
Author Organization [facility] Address [facility] [place] [address] Care Team Providers Care Feed Mill Supervisor Name Role Phone Debby Puri MD Primary Care Provider [phone] Reason for Referral * Consultation (Routine) - Specialty Diagnoses / Procedures Referred By Chela doyle Referred To Contact Weight and Wellness Diagnoses Class 2 severe obesity due to excess calories with serious comorbidity and body mass index (BMI) of 39.0 to 39.9 in adult Jill Farooq APRN [facility] [place] [address] [facility] [address] [place] [id number] Referral ID Status Reason Start Date Expiration Date V isits Requested Visits Authorized [id number] Consult, Test & Treat 11/29/2021 11/29/2022 1 1 Encounter Details Date Type Department Care Team (Late st Contact Info) Description 11/29/2021 Orders Only Weight and Wellness at [facility] [address] [place] [id number] Jill Farooq APRN [facility] [place] [address] Class 2 severe obesity due to excess [...] Associated Diagnoses Orde r Schedule Referral to Bariatric Surgery Program Outpatient Referral Routine Class 2 severe obesity due to excess calories with serious comorbidity and body mass index (BMI) of 39.0 to 39.9 in adult Ordered: 11/29/2021 documented as of this encounter Goals Goal [...] to work on eating behaviors Health Supervisor Policy Change Clerks is sending hand-outs with exercises for mindful [...] adult documented in this encounter Care Teams Feed Mill Supervisor Relationship Specialty Start Date End Date Debby Puri MD [address] [place] [address] PCP - General Family Medicine 07/13/20 06/06/22 documented as of this encounter
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
--- OUTSIDE RECORDS SUMMARY | 2024-06-01 06:58 | XMS_ITS | Encounter Summary ---
Author Organization [facility] Address [facility] Kris [facility] [place] [address] Care Team Providers Care Acls Specialist Name Role Phone Debby Puri MD Primary Care Provider [phone] Encounter Details Date Type Department Care Team (Late st Contact Info) Description 01/02/2022 Abstract Weight and Wellness at [address] [phone] Jill Farooq APRN [facility] DR [facility] [place] [address] Social History Tobacco Use Types Packs/Day Years [...] psychologist to work on eating behaviors Health Manufacturing Engineering Professor is sending hand-outs with exercises for mindful [...] on filedocumented in this encounter Care Teams Acls Specialist Relationship Specialty Start Date End Date Debby Puri MD [address] [place] [address] PCP - General Family Medicine 07/13/20 06/06/22 documented as of this encounter
--- OUTSIDE RECORDS SUMMARY | 2024-06-01 06:58 | XMS_ITS | Encounter Summary ---
Author Organization [facility] [place] [address] Care Team Providers Care Pallet Rectifier Name Role Phone None Primary Care Provider Unavailabl e Encounter Details Date Type Department Care Team ([facility] Contact Info) Description 08/23/2022 11:30 AM EDT TH Visit (TeleHealth) Weight and Wellness at [address] [phone] Adult BMI 39.0-39.9 kg/sq [...] * Patient Instructions* Hailee Martínez RD - 08/23/2022 11:30 AM EDT Nutrition Goals: Establish exercise routine [...] both before and after meal time; water 48-64oz/day; eliminate carbonation; documented in this encounter Progress Notes * Hailee Martínez RD - 08/23/2022 11:30 AM EDT Nutrition Intervention for Weight Management Initial RD visit with SIMONA [place] 1980 Telehealth / telephone visit conducted while patient was at home at the following address: [address] [place] [phone] Weight Today: Wt Readings from Last 3 Encounters: 06/06/22 103.4 kg (228 lb) 02/14/22 95.7 kg (211 lb) 01/02/22 101.6 kg (224 lb) BMI Readings from Last 3 Encounters: 06/06/22 39.14 kg/m?? 02/14/22 36.02 kg/m?? 01/02/22 38.24 kg/m?? Interview: things are going well; continues to practice bariatric behaviors; believes she has a green light from psychology; Weight Loss History: See previous notes from this sql report writer and C provider for full account Typical Dietary Intake: 3x/day B: bowl of cereal with milk L: sandwich - turkey, ham, lettuce, tomato, ruvalcaba D: sandwiches OR soup OR mac and cheese Typical Beverages: 4-6 16oz water bottle; seltzer 1-2x/week; no caffeine; no alcohol; lemonade mix to water Appetite/Hunger: [x] feels managed with foods/meals outlined [...] to work on eating behaviors ?? Health Sheet Cutter is sending hand-outs with exercises for [...] meal pattern, avoid grazing, reasonable snack frequency [] Plan protein at all meals and snacks, eat protein first [x] Total water intake - 4-6 16oz bottle/day; no carbonation [x] eating and drinking by 30 minutes on either side - 90% before, during and after [] Sip rather than gulp [] Reduce coffee intake down to ~1 cup (caffeine) prior to surgery [] Reduce alcohol, ideally avoid [] Currently smoking? [] Former smoker, quit date: (2 months nicotine-free prior to surgery) Activity: walking dogs 1-2x/day 15/20 minutes; resistance bands - 3x/week; [x] reviewed current goals [] updated goals Barriers to Change: none identified today Nutrition Goals updated today: (1) continue exercise routine (2) choosing protein at every eating event (3) bariatric drinking behaviors - no carbonation Monitor/Evaluate: [] Needs additional fuv scheduled with this sql report writer in No follow-ups on file. (OR) [x] Currently scheduled for: [x] 1st consecutive monthly nutrition visit [x] 2nd consecutive monthly nutrition visit [x] 3rd consecutive monthly nutrition visit (OR) [] Patient has met requirement of 3 consecutive monthly nutrition visits but agrees that ongoing support would be helpful and feasible. Above determined to the best ability of this sql report writer. Patient will contact bariatric surgery team for [...] psychologist to work on eating behaviors Health Sheet Cutter is sending hand-outs with exercises for [...] adult documented in this encounter Care Teams Pallet Rectifier Relationship Specialty Start Date End Date None None PCP - General 06/07/22 12/18/22 documented as of this encounter
--- OUTSIDE RECORDS SUMMARY | 2024-06-01 06:58 | XMS_ITS | Encounter Summary ---
Author Organization [facility] Address [facility] [place] [address] Care Team Providers Care Doctor Of Naprapathy Name Role Phone None Primary Care Provider Unavailabl e Encounter Details Date Type Department Care Team (Latest Contact Info) Description 10/08/2022 Travel Social History Tobacco Use Types Packs/Day [...] psychologist to work on eating behaviors Health Merchant Tailor is sending hand-outs with exercises for mindful [...] on filedocumented in this encounter Care Teams Doctor Of Naprapathy Relationship Specialty Start Date End Date None None PCP - General 06/07/22 12/18/22 documented as of this encounter
--- OUTSIDE RECORDS SUMMARY | 2024-06-01 06:58 | XMS_ITS | Encounter Summary ---
Author Organization [facility] [place] [address] Care Team Providers Care Coin Machine Service Repairer Name Role Phone None Primary Care Provider Anthony e Encounter Details Date Type Department Care Team ([facility] Contact Info) Description 10/18/2022 Telephone General Surgery at [facility] [place] [address] Anni Varela APRN [facility] [place] [address] Social History Tobacco Use Types Packs/Day Years Used Date Smoking Tobacco: Never Smokeless Tobacco: Never Sex and Gender Information Value Date Recorded Sex Assigned at Female 10/05/2021 8:56 AM EST Gender Identity Not on file Sexual Orientation Straight 10/05/2021 8: 56 AM EST documented as of this encounter Miscellaneous Notes * Telephone Encounter - Anni Varela APRN - 10/18/2022 9:59 AM EST Touched base with patient's PCP (Sree High) to discuss chronic pain/depression before bariatric surgery. He will have his office reach out to offer follow up. Called patient to close the loop. No answer. LMTCB. Patient returned my call. Reviewed above. Questions encouraged and answered. documented in this [...] to work on eating behaviors Health Machine Heel Builder is sending hand-outs with exercises for mindful [...] on filedocumented in this encounter Care Teams Coin Machine Service Repairer Relationship Specialty Start Date End Date None None PCP - General 06/07/22 12/18/22 documented as of this encounter
--- OUTSIDE RECORDS SUMMARY | 2024-06-01 06:58 | XMS_ITS | Encounter Summary ---
Author Organization [facility] [place] [address] Care Team Providers Care Director Digital Strategy Name Role Phone None Primary Care Provider Unavailabl e Encounter Details Date Type Department Care Team ([facility] Contact Info) Description 10/19/2022 Telephone General Surgery at [facility] [place] [phone] Lorraine Acevedo Social History Tobacco Use Types Packs/Day Years Used Date Smoking Tobacco: Never Smokeless Tobacco: Never Sex and Gender Information Value Date Recorded Sex Assigned at Female 10/05/2021 8:56 AM EST Gender Identity Not on file Sexual Orientation Straight 10/05/2021 8: 56 AM EST documented as of this encounter Miscellaneous Notes * Telephone Encounter - Lorraine Acevedo - 10/19/2022 9:19 AM EST Left message for Leandra to call us back to go over her follow-up to her NPW that has been scheduled. documented in this encounter Plan of Treatment [...] On track(2021 10:28 AM EST) Jill Colmenares, WORKFORCE CONSULTANT Note: Mindfulness/deep breathing practice to reduce cortisol -try for at least 10 minutes a day -try an ap such as headspace I have referred you to our psychologist to work on eating behaviors Health Mold Capper Helper is sending hand-outs with exercises for mindful eating, The Pause/STOP and Urge surfing. Patient will review and try implementing some behaviors before we meet again. movement Lifestyle On track(2021 10:29 AM EST) Jill Colmenares, WORKFORCE CONSULTANT Note: Exercise goal is 150 min [...] on filedocumented in this encounter Care Teams Director Digital Strategy Relationship Specialty Start Date End Date None None PCP - General 06/07/22 12/18/22 documented as of this encounter
--- OUTSIDE RECORDS SUMMARY | 2024-06-01 06:58 | XMS_ITS | Encounter Summary ---
Author Organization [facility] [place] [address] Care Team Providers Care Newspaper Writer Name Role Phone Debby Puri MD Primary Care Provider Encounter Details Date Type Department Care Team ([facility] Contact Info) Description 02/14/2022 10:30 AM EDT TH Visit (TeleHealth) Weight and Wellness at [address] [phone] Hailee Martínez RD Adult BMI 36.0-36.9 kg/sq m Social History Tobacco Use Types [...] - Inhaled Oxygen Concentration - - Weight 95.7 kg (211 lb) 02/14/2022 10:40 AM EDT pt reported Height 163 cm (5' 4.17) 02/14/2022 10:40 AM EDT Body Mass Index 36.02 02/14/2022 10:40 AM EDT documented in this encounter Patient Instructions * Patient Instructions* Hailee Martínez RD - 02/14/2022 10:42 AM EDT Nutrition Goals: Establish exercise routine - goal of 150 minutes per week of aerobic exercise (treadmill, walking outside); resistance bands daily (alternate between upper and lower body); explore at home exercise options Choose protein first at all eating events - plain armenian yogurt, with fruit, 1 tsp ground flaxseed, unsweetened coconut flakes, nuts/seeds; vegetables with peanut butter/doshi dip/armenian yogurt dips/hard boiled egg/slice of deli meat/cheese stick; fruits with nuts/nut; protein on salad; butter/cheese/1/2 cup lowfat cottage cheese/armenian yogurt Practice Bariatric Drinking Behaviors - separate eating and drinking by 30 minutes both before and after meal time; don't bring drinks to the table, consider choosing moist foods; work on sipping rather then gulping/chugging water Continued Goals: Increase vegetables at lunch and dinner - choose 1/2 plate vegetables, 1/4 plate protein and 1/4 plate unprocessed high fiber carbohydrate Establish bedtime routine - dim lights, eliminate screens 30-60 minutes before sleep, set your brain up for sleep (meditation, journaling, gratitude journal, breathing exercises, stretching, soothingmusic, etc) No snacks after dinner - replace eating with alternate boredom buster behavior (ex: reading a book,resistance bands, going for a walk, etc) documented in this encounter Progress Notes * Hailee Martínez RD - 02/14/2022 10:30 AM EDT Nutrition Intervention for Weight Management Initial RD visit with SIMONA Thompson 1980 Assessment/Nutrition Diagnosis: Pt at increased nutritional risk related to excessive calorie intake and sub optimal physical activity resulting in overweight/obesity as evidenced by BMI and diet recall Telehealth / telephone visit conducted while patient was at home at the following address: [address] [facility] [address] Weight Today: Wt Readings from Last 3 Encounters: 02/14/22 95.7 kg (211 lb) 01/02/22 101.6 kg (224 lb) 12/12/21 102.5 kg (226 lb) BMI Readings from Last 3 Encounters: 02/14/22 36.02 kg/m?? 01/02/22 38.24 kg/m?? 12/12/21 38.79 kg/m?? Interview: moving forward with bariatric surgery; pt has been watching what eating, naltrexone and metformin is leading to low appetite; boyfriend just had knee surgery; still waiting for CPAP Weight Loss History: See previous notes from this property underwriter and [facility] provider for full account Typical Dietary Intake: 2x/day 9-10 B: 1 bagel with cream cheese, water, occasionally use peanut butter instead of cream cheese 5-6pm D: turkey/ham sandwich, 2 pieces of bread, ruvalcaba, mustard, fruit - apple/orange, water Typical Beverages: water - 4-5 16oz bottle/day; unsweetened iced tea - 8oz 1x/day; no coffee tea, no caffeine; no carbonation; no alcohol, Appetite/Hunger: [x] feels managed with foods/meals outlined [...] first at all eating events - plain armenian yogurt, with fruit, 1 tsp ground flaxseed, unsweetened coconut flakes, nuts/seeds; vegetables with peanut butter/doshi dip/armenian yogurt dips/hard boiled egg/slice of deli meat/cheese stick; fruits with nuts/nut; protein on salad; butter/cheese/1/2 cup lowfat cottage cheese/armenian yogurt ??? Practice Bariatric Drinking Behaviors - [...] to work on eating behaviors ?? Health Entry Level Assistant Manager is sending hand-outs with exercises for [...] months nicotine-free prior to surgery) Activity: walking to take care of boyfriend; uses exercise bands 2-3x/week; plans to walk more outside when weather gets better [x] reviewed current goals [] updated goals Barriers to Change: none identified today Nutrition Goals updated today: (1) bariatric drinking behaviors - during meal (2) protein first (3)exercise routine Monitor/Evaluate: [x] Needs additional fuv scheduled with this property underwriter in 1 month (OR) [] Currently scheduled for: [] 1st consecutive monthly nutrition visit [] 2nd consecutive monthly nutrition visit [] 3rd consecutive monthly nutrition visit (OR) [] Patient has met requirement of 3 consecutive monthly nutrition visits but agrees that ongoing support would be helpful and feasible. Above determined to the best ability of this property underwriter. Patient will contact bariatric surgery team for any official determination about about scheduling and insurance requirements ( ) Thank you Hailee Martínez MS, RDN LD 30 minutes were spent in [...] psychologist to work on eating behaviors Health Entry Level Assistant Manager is sending hand-outs with exercises for [...] training 3 times a week -can use [employer] Nutrition - 09/26/22 Lifestyle On track(2021 10:29 [...] this encounter Visit Diagnoses Diagnosis Adult BMI 36.0-36.9 kg/sq m Body Mass Index 36.0-36.9, adult documented in this encounter Care Teams Newspaper Writer Relationship Specialty Start Date End Date Debby Puri MD [address] [place] [address] PCP - General Family Medicine 07/13/20 06/06/22 documented as of this encounter
--- OUTSIDE RECORDS SUMMARY | 2024-06-01 06:58 | XMS_ITS | Encounter Summary ---
Author Organization [facility] Address [facility] [place] [address] Care Team Providers Care Coin Machine Collector Name Role Phone None Primary Care Provider Unavailabl e Reason for Visit * Psychiatric (Routine) - Closed Specialty Diagnoses / Procedures Referred By Chela doyle Referred To Contact Psychiatry Diagnoses Psychophysiologic insomnia Sharla Kirkland MD [facility] [place] [address] Loli Valerio, PhD [facility] [place] [address] Referral ID Status Reason Start Date Expiration Date V isits Requested Visits Authorized [id number] Closed Consult, Test & Treat 06/07/2022 06/07/2023 1 1 Encounter Details Date Type Department Care Team (Latest Contact Info) Description 10/22/2022 2:00 PM EST TH Visit (TeleHealth) Psychiatry [place] [address] Crystal Ferro, PhD [facility] [place] [address] Insomnia, unspecified type Social History Tobacco Use Types Packs/Day Years Used Date Smoking Tobacco: Never Smokeless Tobacco: Never Sex and Gender Information Value Date Recorded Sex Assigned at Female 10/05/2021 8:56 AM EST Gender Identity Not on file Sexual Orientation Straight 10/05/2021 8: 56 AM EST documented as of this encounter Progress Notes * Crystal Ferro, PhD - 10/22/2022 2:00 PM EST [facility] Psychiatry and Behavioral Health, Behavioral Medicine Service Progress Note: Group Cognitive Behavioral Therapy for Insomnia Time Spent: 60 minutes Number of participants: 6 Leader: Crystal Ferro, Ph.D. This group was conducted via telehealth. During the visit, Leandra was located in [place] at home. SUBJECTIVE: Chief Complaint: Insomnia Disorder, as assessed by DSM-5 OBJECTIVE: Interventions/topics: 1. Reviewed group rules, schedule, confidentiality, & emergency resources 2. What is Insomnia? 3. Overview of Cognitive-Behavioral Therapy for Insomnia 4. Normal Sleep 5. 3 Sleep Processes 6. How did my Insomnia develop? 7. The 3 Ps Model of Insomnia 8. Completing Sleep Diaries at Home ASSESSMENT: Pertinent Mental Status Exam: WNL Leandra Mcintyre [place] verbal/interpersonal exchange with other participants: appropriate Leandra was actively engaged in today's group visit. She discussed her goals for treatment, including wanting to increase her duration of sleep. PLAN: Follow-up appointment scheduled for return in 1 week. Assigned Homework: sleep diary documented in this encounter Plan of Treatment [...] psychologist to work on eating behaviors Health Lease Picker is sending hand-outs with exercises for mindful [...] type documented in this encounter Care Teams Coin Machine Collector Relationship Specialty Start Date End Date None None PCP - General 06/07/22 12/18/22 documented as of this encounter
--- OUTSIDE RECORDS SUMMARY | 2024-06-01 06:58 | XMS_ITS | Encounter Summary ---
Author Organization [facility] Address [facility] [place] [address] Care Team Providers Care Marine Tower Operator Name Role Phone None Primary Care Provider Unavailabl e Encounter Details Date Type Department Care Team (Latest Contact Info) Description 10/22/2022 Travel Social History Tobacco Use Types Packs/Day [...] psychologist to work on eating behaviors Health Administrative Coordinator is sending hand-outs with exercises for mindful [...] on filedocumented in this encounter Care Teams Marine Tower Operator Relationship Specialty Start Date End Date None None PCP - General 06/07/22 12/18/22 documented as of this encounter
--- OUTSIDE RECORDS SUMMARY | 2024-06-01 06:58 | XMS_ITS | Encounter Summary ---
Author Organization [facility] Address [facility] [place] [address] Care Team Providers Care Afterschool Babysitter Name Role Phone None Primary Care Provider Unavailabl e Encounter Details Date Type Department Care Team (Latest Contact Info) Description 09/26/2022 Travel Social History Tobacco Use Types Packs/Day [...] psychologist to work on eating behaviors Health Mannequin Mounter is sending hand-outs with exercises for mindful [...] on filedocumented in this encounter Care Teams Afterschool Babysitter Relationship Specialty Start Date End Date None None PCP - General 06/07/22 12/18/22 documented as of this encounter
--- OUTSIDE RECORDS SUMMARY | 2024-06-01 06:58 | XMS_ITS | Encounter Summary ---
Author Organization [facility] [place] [address] Care Team Providers Care Cook At School Name Role Phone None Primary Care Provider Unavailabl e Reason for Visit * Reason Onset Date Comments Appointment 04/19/2022 Encounter Details Date Type Department Care Team ([facility] Contact Info) Description 04/19/2022 Telephone Weight and Wellness at [address] [phone] Areli Carranza V Appointment Social History Tobacco Use Types Packs/Day Years Used Date Smoking Tobacco: Never Smokeless Tobacco: Never Sex and Gender Information Value Date Recorded Sex Assigned at Female 10/05/2021 8:56 AM EST Gender Identity Not on file Sexual Orientation Straight 10/05/2021 8: 56 AM EST documented as of this encounter Miscellaneous Notes * Telephone Encounter - Areli Carranza V - 04/19/2022 2:26 PM EDT Return in about 2 weeks (around 04/18/2022) for Zoom, 30min documented in this encounter Plan of Treatment [...] On track(2021 10:28 AM EST) Jill Colmenares, INDUSTRIAL SAFETY AND HEALTH TECHNICIAN Note: Mindfulness/deep breathing practice to reduce cortisol -try for at least 10 minutes a day -try an ap such as headspace I have referred you to our psychologist to work on eating behaviors Health Mine Safety Manager is sending hand-outs with exercises for mindful eating, The Pause/STOP and Urge surfing. Patient will review and try implementing some behaviors before we meet again. movement Lifestyle On track(2021 10:29 AM EST) Jill Colmenares, INDUSTRIAL SAFETY AND HEALTH TECHNICIAN Note: Exercise goal is 150 min [...] on filedocumented in this encounter Care Teams Cook At School Relationship Specialty Start Date End Date None None PCP - General 06/07/22 12/18/22 documented as of this encounter
--- OUTSIDE RECORDS SUMMARY | 2024-06-01 06:58 | XMS_ITS | Encounter Summary ---
Author Organization [facility] [place] [address] Care Team Providers Care Industrial Registered Nurse Name Role Phone Debby Puri MD Primary Care Provider Encounter Details Date Type Department Care Team ([facility] st Contact Info) Description 11/24/2021 2:00 PM EST Notes Only General Surgery at [facility] [place] [phone] Social History Tobacco Use Types Packs/Day Years Used Date Smoking Tobacco: Never Smokeless Tobacco: Never Sex and Gender Information Value Date Recorded Sex Assigned at Female 10/05/2021 8:56 AM EST Gender Identity Not on file Sexual Orientation Straight 10/05/2021 8: 56 AM EST documented as of this encounter Progress Notes * Lorraine Acevedo - 11/24/2021 2:00 PM EST PATIENT ATTENDED THE [facility] INTRO TO BARIATRIC SURGERY ON 11/24/2021 FOR THE [place] [facility] documented in this encounter Plan of Treatment [...] psychologist to work on eating behaviors Health Show Host is sending hand-outs with exercises for mindful eating, The Pause/STOP and Urge surfing. Patient will review and try implementing some behaviors before we meet again. movement Lifestyle On track(2021 10:29 AM EST) Jill Colmenares, MICA SPREADER Note: Exercise goal is 150 min a week, just do some walking, even [address] to start Recommend resistance training 3 times a week -can use [employer] Nutrition - 09/26/22 Lifestyle On track(2021 10:29 [...] filedocumented in this encounter Care Teams Industrial Registered Nurse Relationship Specialty Start Date End Date Debby Puri MD [address] [place] [address] PCP - General Family Medicine 07/13/20 06/06/22 documented as of this encounter
--- OUTSIDE RECORDS SUMMARY | 2024-06-01 06:58 | XMS_ITS | Encounter Summary ---
Author Organization [facility] [place] [address] Care Team Providers Care Line Cook Name Role Phone Debby Puri MD Primary Care Provider Encounter Details Date Type Department Care Team (Latest Contact Info) Description 05/30/2022 11:30 AM EDT TH Visit (TeleHealth) Weight and Wellness at [address] [phone] Crystal Ferro, PhD [facility] [place] [address] Eating disorder, unspecified type; Trauma and stressor-related disorder; Generalized anxiety disorder; [...] Progress Notes * Crystal Ferro, PhD - 05/30/2022 11:30 AM EDT BARIATRIC SURGERY FOLLOW UP NOTE N [facility] AT [address] [address] Dept: [phone] 05/30/2022 11:30AM Leandra Wilks is a 42 y.o. [...] visit they were located at home in [place], [place]. Leandra Wilks is aware that for any urgent matter they can call [phone].. Plan: At today's visit (05/30) patient reported many improvements to her eating patterns and relationship with food, and she will be starting therapy later this week. Plan to resume bariatric pathway now. Last visit (04/04): At today's visit we identified [...] The follow up plan is as follows: ~4 weeks DIAGNOSIS (based on information gathered in this evaluation) Unspecified eating disorder Trauma and stressor related disorder Unspecified mood disorder Generalized anxiety disorder The above assessment and plan was based on the following information obtained during the appointment. Please note section in blue indicates updated information from the previous evaluation: WEIGHT Initial Weight: 230lbs Weight at previous evaluation: 211 lbs Current Weight as of 05/30/2022: 211 lbs (no updated weight) Weight changes since evaluation: not known PROBLEM EATING BEHAVIORS From previous evaluation: Current/recent binging (i.e., large amounts of food over a 2-hour period, feeling loss of control and overly full): yes If h/o binging, last binge: 3 days ago - bought a box of ice cream bars, ate 4 in a single sitting.[place] a sense of less control, described feeling [...] eating, last episode: A few days ago 05/30/2022: Current/recent binging (i.e., large amounts of food [...] visit If h/o over eating, last episode: mid-March [...] pain - encouraged more focus on these. 05/30/2022: Will further assess at next visit POST SURGERY EATING HABIT CHANGES AND READINESS From previous evaluation: Not previously assessed due to time constraints 05/30/2022: ??? Eating slowly, taking 20-30 min to [...] occasionally. Current implementation of habit changes: good CURRENT SOCIAL SUPPORT NETWORK From previous evaluation: [...] reliable source of support at this time. 05/30/2022: Patient denied any changes to her support system, shared that she still experiences significant stress related to being estranged from one of her sons MENTAL HEALTH UPDATE: Described mood as not too bad. She reported some stress related to finances, relationship with one of her children, denied any significant stress. Denied any changes to her medication. Denied suicidal ideation. 05/30/22: got in touch with her prior therapist, getting in on Saturday. She consented to letting me contact her therapist MENTAL HEALTH PROVIDER COMMUNICATION (IF NEEDED) Not done yet -- will reach out to this provider in the next month or two. HEALTH BEHAVIORS From previous evaluation: No previously identified concerns ADHERENCE AND ATTENDANCE From previous evaluation: Not previously assessed due to time constraints 05/30/2022: Number of No-show appointments in the past 6 months based on EMR (if possible): 0 Number of Cancelled appointments in the past 6 months based on EMR (if possible): 0 Reason for cancellations/no shows (if necessary to address): n/a Sleep Apnea? Yes - thinks mild or [...] to CHUN treatment before proceeding with surgery. Medication adherence - how many days in the past 7 did you miss any of your medications?: 0 Potential barriers to treatment compliance (10-14 day f/u with PCP, 1 mo f/u with team; 4 mo f/u; yearly f/u): n/a. The assessment and plan for Leandra Wilks [...] psychologist to work on eating behaviors Health Sheep Farm Manager is sending hand-outs with exercises for [...] track(2021 10:29 AM EST) No Hailee Martínez, RD Note: Nutrition Goals: Continue exercise routine [...] encounter Visit Diagnoses Diagnosis Eating disorder, unspecified type Trauma and stressor-related disorder Generalized anxiety disorder Unspecified mood (affective) disorder documented in this encounter Care Teams Line Cook Relationship Specialty Start Date End Date Debby Puri MD [address] [place] [address] [address] [place] [address] PCP - General Family Medicine 07/13/20 06/06/22 documented as of this encounter
--- OUTSIDE RECORDS SUMMARY | 2024-06-01 06:58 | XMS_ITS | Encounter Summary ---
Author Organization [facility] Address [facility] [place] [address] Care Team Providers Care Produce Manager Name Role Phone Debby Puri MD Primary Care Provider [phone] Reason for Visit * Reason Comments Medication Refill Encounter Details Date Type Department Care Team ([facility] Contact Info) Description 04/30/2022 Refill Weight and Wellness at [address] [phone] Jill Farooq APRN [facility] [place] [address] Insulin resistance; Pre-diabetes Social History Tobacco Use Types Packs/Day Years [...] On track(2021 10:28 AM EST) Jill Colmenares, FAMILY PROGRAM SPECIALIST Note: Mindfulness/deep breathing practice to reduce cortisol -try for at least 10 minutes a day -try an ap such as headspace I have referred you to our psychologist to work on eating behaviors Health Fine Arts Packer is sending hand-outs with exercises for mindful eating, The Pause/STOP and Urge surfing. Patient will review and try implementing some behaviors before we meet again. movement Lifestyle On track(2021 10:29 AM EST) Jill Colmenares, FAMILY PROGRAM SPECIALIST Note: Exercise goal is 150 min [...] as of this encounter Visit Diagnoses Diagnosis Insulin resistance Dysmetabolic Syndrome X Pre-diabetes Other abnormal glucose documented in this encounter Care Teams Produce Manager Relationship Specialty Start Date End Date Debby Puri MD [address] [place] [address] PCP - General Family Medicine 07/13/20 06/06/22 documented as of this encounter
--- OUTSIDE RECORDS SUMMARY | 2024-06-01 06:58 | XMS_ITS | Encounter Summary ---
Author Organization [facility] Address [facility] [place] [address] Care Team Providers Care Final Inspector Movement Assembly Name Role Phone None Primary Care Provider Anthoyn e Encounter Details Date Type Department Care Team ([facility] Contact Info) Description 07/11/2022 Telephone Weight and Wellness at [address] [phone] Crystal Ferro, PhD [facility] [place] [address] Social History Tobacco Use Types Packs/Day Years Used Date Smoking Tobacco: Never Smokeless Tobacco: Never Sex and Gender Information Value Date Recorded Sex Assigned at Female 10/05/2021 8:56 AM EST Gender Identity Not on file Sexual Orientation Straight 10/05/2021 8: 56 AM EST documented as of this encounter Miscellaneous Notes * Telephone Encounter - Crystal Ferro, PhD - 07/11/2022 2:33 PM EDT BEHAVIORAL MEDICINE ASSESSMENT BARIATRIC SURGERY - CONTACT WITH MENTAL HEALTH PROVIDER Darrell MEYER RD WEIGHT AND WELLNESS AT [address] [address] Dept: [phone] 07/11/2022 2:34 PM Spoke with Leandra Wilks's mental health provider, Ludmila Stone, regarding Leandra's readiness forbariatric surgery. In summary, Ludmila did not endorse concerns with Leandra proceeding with surgery. Ludmila's responses to questions about Leandra's mental health care are below: 1. When did you begin providing care to the patient? Within past month, patient is a return patient- previously saw in 2014 for a few years, then moved away and she returned for treatment 2. Does the patient consistently attend appointments with you? yes 3. Has the patient been psychologically stable during that time? yes, moderate depression 4. Is the patient compliant with the treatment plan? yes 5. Will you be following the patient post-surgery? yes 6. Has the patient been hospitalized for mental health reasons? no 7. Are you aware of any binging or purging behaviors by the patient? no 8. Substance/drug abuse: no 9. Please list any reservations about the patient proceeding with the surgery: she denied having any concerns Crystal Ferro, PhD documented in this encounter Plan of Treatment Scheduled Procedures Name Priority Associated Diagnoses Date/Ti me COLONOSCOPY, DIAGNOSTIC (WRV U 3.26) Biliary stricture Screening for colon cancer documented as of this encounter Goals Goal Patient Goal Type Associated Problems Recent Progress Patient-Stated? Author meal timing/food choices Lifestyle On track(2021 10:30 AM EST) Jill oClmenares APRN Note: Meal timing: consider eating within [...] psychologist to work on eating behaviors Health Trouble Lineman is sending hand-outs with exercises for mindful [...] on filedocumented in this encounter Care Teams Final Inspector Movement Assembly Relationship Specialty Start Date End Date None None PCP - General 06/07/22 12/18/22 documented as of this encounter
--- OUTSIDE RECORDS SUMMARY | 2024-06-01 06:58 | XMS_ITS | Encounter Summary ---
Author Organization [facility] Address [facility] [place] [address] Care Team Providers Care Business Analyst Manager Name Role Phone Debby Puri MD Primary Care Provider Encounter Details Date Type Department Care Team (Late st Contact Info) Description 12/01/2021 Abstract Weight and Wellness at [address] [phone] Jill Farooq APRN [facility] DR BETSY [place] [address] Social History Tobacco Use Types Packs/Day Years [...] psychologist to work on eating behaviors Health Church Warden is sending hand-outs with exercises for mindful [...] on filedocumented in this encounter Care Teams Business Analyst Manager Relationship Specialty Start Date End Date Debby Puri MD [address] [place] [address] PCP - General Family Medicine 07/13/20 06/06/22 documented as of this encounter
--- OUTSIDE RECORDS SUMMARY | 2024-06-01 06:58 | XMS_ITS | Encounter Summary ---
Author Organization [facility] [place] [address] Care Team Providers Care Grant Coordinator Name Role Phone None Primary Care Provider Unavailabl e Encounter Details Date Type Department Care Team (Latest Contact Info) Description 10/01/2022 4:30 PM EST TH Visit (TeleHealth) Weight and Wellness at [address] [phone] Russ Henry Class 2 severe obesity due [...] Instructions * Patient Instructions* Russ Henry - 10/01/2022 4:30 PM EST It was good to talk with you Leandra. Congratulations on your green light!! You have worked hard toovercome and change some habits, well done. This is not an easy journey and you have accepted challenges and moved through a lot. I wish you a safe and healthy future! Be well, Russ Henry Health Lease Picker documented in this encounter Progress Notes * Russ Henry - 10/01/2022 4:30 PM EST Leandra Wilks is here today at the request of Jill Farooq for lifestyle coaching for weight control and overall health. Patient shared that she has been given the green light for surgery. She feels ready and has worked hard to meet goals. She is walking more, watching portion sizes, using resistance bands, eating from drinking. She is feeling good about all she has done. Review specific goals if any from provider [...] to work on eating behaviors ?? Health Lease Picker is sending hand-outs with exercises for mindful eating, The Pause/STOP and Urge surfing. Patient will review and try implementing some behaviors before we meet again. Self-monitoring What are you doing now? If no personal accountability process, what can you add? [x]Food log: [] daily [x] intermittent []Weigh-ins: [] daily [] weekly [x]Exercise log [x]Gratitude journal []Other: Food Behaviors (optional): Continuing to practice bariatric behaviors Future follow-up with health field hockey coach will address identified areas of concern: [x] Exercise []Sleep []Stress [x]Accountability []Food Behaviors [x]Self-compassion Below are [...] increasing mindfulness throughout the day. Your health field hockey coach is well-equipped to guide you to find something to look forward to everyday. Eating behaviors: many people benefit from restricting the hours in which they eat. You can choose an eating window of 8-12 hours to start. Make a pact with yourself that you will not take in anything with caloric content outside this window. Your manager search may make further recommendations documented in this [...] adult documented in this encounter Care Teams Grant Coordinator Relationship Specialty Start Date End Date None None PCP - General 06/07/22 12/18/22 documented as of this encounter
--- OUTSIDE RECORDS SUMMARY | 2024-06-01 06:58 | XMS_ITS | Encounter Summary ---
Author Organization [facility] [place] [address] Care Team Providers Care Fabric Machine Operator Name Role Phone None Primary Care Provider Anthony e Encounter Details Date Type Department Care Team ([facility] st Contact Info) Description 10/16/2022 Telephone General Surgery at [facility] [place] [address] [facility] [place] [place] [address] Social History Tobacco Use Types Packs/Day Years Used Date Smoking Tobacco: Never Smokeless Tobacco: Never Sex and Gender Information Value Date Recorded Sex Assigned at Female 10/05/2021 8:56 AM EST Gender Identity Not on file Sexual Orientation Straight 10/05/2021 8: 56 AM EST documented as of this encounter Miscellaneous Notes * Telephone Encounter - Anni Varela APRN - 10/16/2022 8:04 AM EST Called patient 10/15/[address] in response to My message. Reviewed documentation states she denied self induced vomiting and abusing laxatives. She clarified that she is spending 1-2 days per month in bed primarily due to chronic pain rather than depression. She feels her depression is well managed. We discussed that follow up with PCP is still recommended though to focus on chronic pain management rather than depression treatment. Also checked in re: night eating. Encouraged patient to pursue insomnia tx (CBTI group recommended by Sleep Medicine). Encouraged patient to reach out if support coordinating is needed. Patient verbalizes understanding and agreement. documented in [...] psychologist to work on eating behaviors Health Bordereau Clerk is sending hand-outs with exercises for mindful [...] on filedocumented in this encounter Care Teams Fabric Machine Operator Relationship Specialty Start Date End Date None None PCP - General 06/07/22 12/18/22 documented as of this encounter
--- OUTSIDE RECORDS SUMMARY | 2024-06-01 06:58 | XMS_ITS | Encounter Summary ---
Author Organization [facility] Address [facility] [place] [address] Care Team Providers Care Machine Bender Name Role Phone None Primary Care Provider Unavailabl e Encounter Details Date Type Department Care Team (Latest Contact Info) Description 10/02/2022 Travel Social History Tobacco Use Types Packs/Day [...] psychologist to work on eating behaviors Health Java Tech is sending hand-outs with exercises for mindful [...] on filedocumented in this encounter Care Teams Machine Bender Relationship Specialty Start Date End Date None None PCP - General 06/07/22 12/18/22 documented as of this encounter
--- OUTSIDE RECORDS SUMMARY | 2024-06-01 06:58 | XMS_ITS | Encounter Summary ---
Author Organization [facility] Address [facility] [place] [address] Care Team Providers Care Youth Accommodation Support Worker Name Role Phone Debby Puri MD Primary Care Provider [phone] Encounter Details Date Type Department Care Team (Late st Contact Info) Description 04/05/2022 Telephone Sleep Center at [facility] [address] [place] [phone] Cristina Jung Social History Tobacco Use Types Packs/Day Years Used Date Smoking Tobacco: Never Smokeless Tobacco: Never Sex and Gender Information Value Date Recorded Sex Assigned at Female 10/05/2021 8:56 AM EST Gender Identity Not on file Sexual Orientation Straight 10/05/2021 8: 56 AM EST documented as of this encounter Miscellaneous Notes * Telephone Encounter - Cristina Jung - 04/05/2022 2:56 PM EDT Pt called back stating she has not received her machine yet but will call to schedule compliance visit once she does receive it lvm to schedule compliance documented in this encounter Plan of Treatment [...] On track(2021 10:28 AM EST) Jill Colmenares, HOME PERFORMANCE CONSULTANT Note: Mindfulness/deep breathing practice to reduce cortisol -try for at least 10 minutes a day -try an ap such as headspace I have referred you to our psychologist to work on eating behaviors Health Senior Architectural Designer is sending hand-outs with exercises for mindful eating, The Pause/STOP and Urge surfing. Patient will review and try implementing some behaviors before we meet again. movement Lifestyle On track(2021 10:29 AM EST) Jill Colmenares, HOME PERFORMANCE CONSULTANT Note: Exercise goal is 150 min a week, just do some walking, even [address] to start Recommend resistance training 3 times a week -can use therBriefMe Nutrition - 09/26/22 Lifestyle On track(2021 10:29 [...] on filedocumented in this encounter Care Teams Youth Accommodation Support Worker Relationship Specialty Start Date End Date Debby Puri MD [address] [place] [address] PCP - General Family Medicine 07/13/20 06/06/22 documented as of this encounter
--- OUTSIDE RECORDS SUMMARY | 2024-06-01 06:58 | XMS_ITS | Encounter Summary ---
Author Organization [facility] [place] [address] Care Team Providers Care Nurse Staff Industrial Name Role Phone Debby Puri MD Primary Care Provider Encounter Details Date Type Department Care Team (Latest Contact Info) Description 10/05/2021 10:30 AM EST TH Visit (TeleHealth) Weight and Wellness at [address] [phone] Jill Farooq APRN [facility] DR BETSY [place] [address] Class 2 severe obesity due to excess [...] - Inhaled Oxygen Concentration - - Weight 104.3 kg (230 lb) 10/05/2021 1:00 PM EST Height 163 cm (5' 4.17) 10/05/2021 1:00 PM EST Body Mass Index 39.27 10/05/2021 1:00 PM EST documented in this encounter Progress Notes * Jill Farooq APRN - 10/05/2021 10:30 AM EST Today's visit was shortened as pt did not arrive on zoom until nearly 10:25 She is struggling with what she describes as uncontrolled eating. She wants to eat all day long, not sure if it is hunger or just cravings. She is taking metformin, not having any problems with it, feels it may be helping to keep her from gaining too much, she is up 2 lbs. We discussed adding other medication. She shouldn't use GLP1 medication as she has a history of pancreatitis. She also has a history of kidney stones, so topamax is not a good option, in fact, she recently came off it and that could explain her increase in hunger. We decided to add naltrexone, if this does not help, might consider amadou. Reviewed as below Naltrexone Brand Names None How it works Blocks opioid receptors in the brain Decreases cravings When not to use If you are taking opiate pain medication, naltrexone will blunt or block the effect You should not use this if you are actively withdrawing from opioid medications Other medications Naltrexone is combined with bupropion in a prescription medication called Contrave which is FDA-approved for the treatment of obesity. Common Side Effects (not comprehensive) Nausea/vomiting, constipation, somnolence, headache Starting this medication We start this medication slowly, increasing approximately every week. If you start naltrexone as a single medication, you will need to cut the (small) tablet in half or quarters What you can do You will need to stop this medication 3-4 days prior to procedures requiring anesthesia. Please inform you obesity medicine provider if you have a procedure schedule, and/or inform your surgeon that you are taking this medication Monitoring If you do not achieve 5% weight loss at 12 weeks, we will increase the dose or try a different medication Uses Obesity (off label if used on its own, FDA approved in combination with naltrexone as Contrave), addiction We will set up follow up in about 4 weeks, she knows she can reach out on [facility] anytime. documented in this encounter Plan of Treatment [...] psychologist to work on eating behaviors Health Skidder Lever Operator is sending hand-outs with exercises for [...] adult documented in this encounter Care Teams Nurse Staff Industrial Relationship Specialty Start Date End Date Debby Puri MD [address] [place] [address] PCP - General Family Medicine 07/13/20 06/06/22 documented as of this encounter
--- OUTSIDE RECORDS SUMMARY | 2024-06-01 06:58 | XMS_ITS | Encounter Summary ---
Author Organization [facility] [place] [address] Care Team Providers Care Blaster Helper Name Role Phone Debby Puri MD Primary Care Provider Encounter Details Date Type Department Care Team (Late st Contact Info) Description 04/05/2022 Telephone Weight and Wellness at [address] [phone] Crystal Ferro, [place] [address] Social History Tobacco Use Types Packs/Day Years Used Date Smoking Tobacco: Never Smokeless Tobacco: Never Sex and Gender Information Value Date Recorded Sex Assigned at Female 10/05/2021 8:56 AM EST Gender Identity Not on file Sexual Orientation Straight 10/05/2021 8: 56 AM EST documented as of this encounter Miscellaneous Notes * Telephone Encounter - Crystal Ferro, PhD - 04/05/2022 12:07 PM EDT 04/05/22 12:05PM Called and spoke to Leandra. Explained that the plan from yesterday's visit does not mean she will not have surgery eventually, just means we want to pause and help her learn some tools to manage eating better to set her up for greater likelihood of success after surgery. Reiterated plan for regular visits with me, ACT group, and community therapist. Patient expressed understanding. Patient will be re-evaluated for bariatric surgery by another provider at a later date when eating patterns are better managed. Crystal Ferro, PhD documented in this encounter [...] to work on eating behaviors Health Manager Production is sending hand-outs with exercises for mindful [...] on filedocumented in this encounter Care Teams Blaster Helper Relationship Specialty Start Date End Date Debby Puri MD [address] [place] [address] PCP - General Family Medicine 07/13/20 06/06/22 documented as of this encounter
--- OUTSIDE RECORDS SUMMARY | 2024-06-01 06:58 | XMS_ITS | Encounter Summary ---
[place] [address] Care Team Providers Care City Library Director Name Role Phone Debby Puri MD Primary Care Provider [phone] Reason for Visit * Reason Onset Date Comments Appointment 02/20/2022 Encounter Details Date Type Department Care Team ([facility] st Contact Info) Description 02/20/2022 Telephone Weight and Wellness at [place] [address] [place] [phone] Cristina Cloud Appointment Social History Tobacco Use Types Packs/Day Years Used Date Smoking Tobacco: Never Smokeless Tobacco: Never Sex and Gender Information Value Date Recorded Sex Assigned at Female 10/05/2021 8:56 AM EST Gender Identity Not on file Sexual Orientation Straight 10/05/2021 8: 56 AM EST documented as of this encounter Miscellaneous Notes * Telephone Encounter - Cristina Cloud - 02/27/2022 10:07 AM EDT Return in about 1 month (around 03/17/2022) for Zoom. CHANG (Hailee) * Telephone Encounter - Cristina Cloud - 02/20/2022 11:03 AM EDT PSY EVAL documented in this encounter Plan of Treatment [...] psychologist to work on eating behaviors Health Liner Assembler is sending hand-outs with exercises for [...] on filedocumented in this encounter Care Teams City Library Director Relationship Specialty Start Date End Date Debby Puri MD [address] [place] [address] PCP - General Family Medicine 07/13/20 06/06/22 documented as of this encounter
--- OUTSIDE RECORDS SUMMARY | 2024-06-01 06:58 | XMS_ITS | Encounter Summary ---
Author Organization [facility] [place] [address] Care Team Providers Care Neurology Manager Name Role Phone Debby Puri MD Primary Care Provider [phone] Encounter Details Date Type Department Care Team ([facility] Contact Info) Description 10/25/2021 11:00 AM EST TH Visit (TeleHealth) Weight and Wellness at [address] [phone] Adult BMI 38.0-38.9 kg/sq [...] - Inhaled Oxygen Concentration - - Weight 101.2 kg (223 lb) 10/25/2021 11:14 AM EST pt reported Height 163 cm (5' 4.17) 10/25/2021 11:14 AM EST Body Mass Index 38.07 10/25/2021 11:14 AM EST documented in this encounter Patient Instructions * Patient Instructions* Hailee Martínez RD - 10/25/2021 11:00 AM EST Nutrition Goals: ??? Establish exercise routine - goal of 150 minutes per week of aerobic exercise (treadmill, walking outside); resistance bands daily (alternate between upper and lower body) ??? Increase protein at breakfast and dinner - plain yoruba yogurt, with fruit, 1 tsp ground flaxseed, unsweetened coconut flakes, nuts/seeds; vegetables with peanut butter/doshi dip/yoruba yogurt dips/hard boiled egg/slice of deli meat/cheese stick; fruits with nuts/nut butter/cheese/1/2 cup lowfat cottage cheese/yoruba yogurt ??? Increase vegetables at lunch and [...] Progress Notes * Hailee Martínez RD - 10/25/2021 11:00 AM EST Nutrition Intervention for Weight Management Initial RD visit with SIMONA Thompson 1980 Assessment/Nutrition Diagnosis: Pt at increased nutritional risk related to excessive calorie intake and sub optimal physical activity resulting in overweight/obesity as evidenced by BMI and diet recall Telehealth / telephone visit conducted while patient was at home at the following address: [address] [place] [id number] Weight Today: Wt Readings from Last 3 Encounters: 10/25/21 101.2 kg (223 lb) 10/05/21 104.3 kg (230 lb) 08/22/21 100.7 kg (222 lb) BMI Readings from Last 3 Encounters: 10/25/21 38.07 kg/m?? 10/05/21 39.27 kg/m?? 08/22/21 38.11 kg/m?? Interview: considering bariatric surgery - has called bariatrics about info session, has set appointment for 11/24/21; working on walking instead of driving, reducing portions; skipping lunch - noticeddon't have energy when skipped, not home for lunch; Typical Dietary Intake: 10am B: yogurt, blueberries/blackberries, grapes 1/2pm L (3x/week): sandwich - cold cuts, cheese, ruvalcaba, tomatoes, lettuce S: feel like dessert after lunch 6pm D: 2 slices toast, jelly, grapes and blueberries S: yogurt popsicles Typical Beverages: 1x/day tea; water - 5-6bottles 16 oz/day; juice - 1-2x/week orange juice with breakfast; no carbonation; water flavor - alyssa; no alcohol; strawberry shake; 2-3x/week coffee occasionally; Appetite/Hunger: [x] feels managed with foods/meals outlined above [] discussed meal/snack schedule adjustment today- see goals [] patient identifies eating for reasons other than hunger- see interview above Food Tracking: [] Current food Tracking [] Discussed potential benefit starting food tracking - see goals [x] Food tracking not appropriate for patient at this time Patient Goals from Team: Goals ??? meal [...] protein at breakfast and dinner - plain yoruba yogurt, with fruit, 1 tsp ground flaxseed, unsweetened coconut flakes, nuts/seeds; vegetables with peanut butter/doshi dip/yoruba yogurt dips/hard boiled egg/slice of deli meat/cheese stick; fruits with nuts/nut butter/cheese/1/2 cup lowfat cottage cheese/yoruba yogurt ??? Increase vegetables at lunch and [...] to work on eating behaviors ?? Health Leader Writer is sending hand-outs with exercises for mindful eating, The Pause/STOP and Urge surfing. Patient will review and try implementing some behaviors before we meet again. Other topics discussed: [x] Eating an appropriate amount of food for your body [x] Reduce highly processed foods, refined carbohydrates, in favor of whole foods [] Reduce sweet taste in your diet (whether by sugar or non-nutritive sweeteners) [x] Increase fruits and non-starchy veggies [] Replace processed meat with other meat, fish, or, ideally, plant-based proteins (Good, Better,Best handout provided? [] ) [] Consider adding or increasing fermented foods [x] Eat when hungry / planned eating event (Other eating behaviors: [] permission to eat [] distraction [] food environment) Activity: walking to store across the street instead of driving; treadmill still broken; walking 5-10 minutes per day; not using resistance bands - has to find them [] reviewed current goals [x] updated goals Barriers to Change: none identified today Nutrition Goals updated today: (1) continue walking, find and use resistance bands (2) protein at every eating event (3) increase vegetable intake Monitor/Evaluate: Will follow up in 6 weeks (mid-November) Aim for 5-10% weight loss from ABW x 3-6 months from initial visit Thank you Hailee Martínez MS RDN LD [...] to work on eating behaviors Health Leader Writer is sending hand-outs with exercises for mindful [...] adult documented in this encounter Care Teams Neurology Manager Relationship Specialty Start Date End Date Debby Puri MD [address] [place] [address] PCP - General Family Medicine 07/13/20 06/06/22 documented as of this encounter
--- OUTSIDE RECORDS SUMMARY | 2024-06-01 06:58 | XMS_ITS | Encounter Summary ---
Author Organization [facility] Address [facility] [place] [address] Care Team Providers Care Slate Cutter Operator Name Role Phone Debby Puri MD Primary Care Provider [phone] Encounter Details Date Type Department Care Team (Latest Contact Info) Description 01/02/2022 10:00 AM EST TH Visit (TeleHealth) Weight and Wellness at [address] [phone] Jill Farooq APRN [facility] [place] [address] Class 2 severe obesity due to excess calories with serious comorbidity and body mass index (BMI) of 39.0 to 39.9 in adult; Encounter for pre-bariatric surgery counseling and education; CHUN (obstructive sleep apnea) Social History Tobacco Use Types Packs/Day Years [...] - Inhaled Oxygen Concentration - - Weight 101.6 kg (224 lb) 01/02/2022 9:00 AM EST Height 163 cm (5' 4.17) 01/02/2022 9:00 AM EST Body Mass Index 38.24 01/02/2022 9:00 AM EST documented in this encounter Patient Instructions * Patient Instructions* Oseas Jill Carmine, [employer] ENGINEER - 01/02/2022 11:01 AM EST From our visit today: good to see you today Leandra, seems you are doing really well making changes. I will have our schedulers get you scheduled for your psych evaluation. You should stop your naltrexone at least 3 days before surgery as it blocks opiate receptors so pain meds won't work when you are on it. You will likely not need it after surgery. Make sure you get started on C pap Let me know if you have any questions or need anything at all! Jill Goals Addressed This Visit's Progress meal timing/food choices On track Meal timing: consider eating within an 8-10 [...] of water daily. -great job with this movement On track Exercise goal is 150 min a week, just do some walking, even [address] to start Recommend resistance training 3 times a week -can use [employer] Nutrition - 12/13/21 On track Nutrition Goals: Establish exercise routine - goal of 150 minutes per week of aerobic exercise (treadmill, walking outside); resistance bands daily (alternate between upper and lower body); explore at home exercise options Choose protein first at all eating events - plain malagasy yogurt, with fruit, 1 tsp ground flaxseed, unsweetened coconut flakes, nuts/seeds; vegetables with peanut butter/doshi dip/malagasy yogurt dips/hard boiled egg/slice of deli meat/cheese stick; fruits with nuts/nut; protein on salad; butter/cheese/1/2 cup lowfat cottage cheese/malagasy yogurt Practice Bariatric Drinking Behaviors - separate eating and drinking by 30 minutes both before and after meal time; don't bring drinks to the table, consider choosing moist foods Continued Goals: Increase vegetables at lunch and [...] book,resistance bands, going for a walk, etc) sleep On track Follow up with sleep, do sleep study. Goal 7 hours of sleep nightly. Recommend consistent sleep and wake times, avoid electronics within one hour of sleep time stress management On track Mindfulness/deep breathing practice to reduce cortisol -try for at least 10 minutes a day -try an ap such as headspace I have referred you to our psychologist to work on eating behaviors Health Favor Maker is sending hand-outs with exercises for mindful eating, The Pause/STOP and Urge surfing. Patient will review and try implementing some behaviors before we meet again. Medications 01/02/22 1030 Medication Sig Taking? naltrexone (Depade) 50 mg Tablet Take 0.5 tablets by mouth 2 times daily. metFORMIN XR (Glucophage XR) 500 mg Tablet Sustained Release 24 hr Take 2 tablets by mouth 2 times daily. Always take with meals. oxybutynin (DITROPAN XL) 15 mg Tablet Extended Rel 24 hr propranoloL (Inderal) 20 mg Tablet TAKE ONE TABLET BY MOUTH TWICE A DAY lamoTRIgine (LaMICtal) 150 mg Tablet TAKE ONE TABLET BY MOUTH TWICE A DAY cyclobenzaprine (Flexeril) 5 mg Tablet TAKE ONE TABLET BY MOUTH THREE TIMES A DAY NEEDED FOR BACK PAIN FLUoxetine (PROzac) 20 mg Capsule Daily. naproxen (NAPROSYN) 500 mg Tablet TAKE ONE TABLET BY MOUTH TWICE A DAY WITH FOOD NEEDED FOR PAIN latanoprost (XALATAN) 0.005 % Drops INSTILL 1 DROP IN EACH EYE AT BEDTIME DIRECTED PROAIR HFA 90 mcg/actuation HFA Aerosol Inhaler INHALE 1 TO 2 PUFFS FOUR TIMES A DAY NEEDED WHENCOUGHING AND BEFORE EXERCISE documented in this encounter Progress Notes * Jill Farooq APRN - 01/02/2022 10:00 AM EST [facility] Patient Name: Leandra Wilks Date of : 1980 Age: 41 y.o. Debby Puri MD Thank you for referring Leandra Wilks to the [facility]. I saw her for a follow-up visit today, 01/02/22. Please see changes to care as documented in the assessment and plan. CHIEF COMPLAINT: F/u for treatment of WHO Class 2/ EOSS Stage 2 Obesity defined by a BMI of Body mass index is 38.24kg/m??. and comorbidities. This is a follow-up [facility] visit for this 41 y.o. patient. Weight gain due to: depression, emotional eating, poor food choices Barriers: depression Initial visit: 06/07/21 Initial weight: 228 Initial BMI: 39.06 Goal weight: 160 10% loss: 22lb Today's weight: 224 Change since prior: down 4 lbs Wt Readings from Last 3 Encounters: 12/12/21 102.5 kg (226 lb) 10/25/21 101.2 kg (223 lb) 10/05/21 104.3 kg (230 lb) [facility] Team: Hailee Martínez RD HPI TODAY PATIENT REPORTS: Nutrition: metformin and nalrexone are really helping with appetite. Breakfast: pb toast or one bowl of cerea Lunch: might have a turkey sandwich or leftovers from the night before Occasional snack: such as an apple, recommend pairing with protein Evening meal: last night had harris's pie, tends to finish by 6pm Doing well with water, getting at least 64 oz a day Behavior: feels she does not have any problematic behaviors Activity: has been doing some walking most days, walks her friends daughter home from school. Using resistance bands Sleep: not good, waking up several times a night, stays awake 30 minutes at a time, not falling asleep until 2 am a lot of nights Stress: doing ok Self-monitoring: [] Daily or weekly weights [x] Food log/marco a [] Other AOM: Currently taking: metformin and naltrexone (at first was having some trouble when taking without food, was having some nausea but now ok as long as taking with food) AOM HX: naltrexone and metformin Doing well on both, finding appetite and cravings well controlled Obesogenic meds: lamictal COMORBIDITIES ADDRESSED CHUN, working on getting C pap, reviewed REVIEW OF LABS/DIAGNOSIS SINCE LAST VISIT Labs done in May, will plan to do when she sees the surgeon REFERRALS Completed/result:HC, RD Pending: psychologist [x] I reviewed past / interim records including notes and labs. Goals Addressed This Visit's Progress ??? meal timing/food choices On track ?? Meal timing: consider eating within an [...] daily. -great job with this ??? movement On track ?? Exercise goal is 150 min a week, just do some walking, even [address] to start ?? Recommend resistance training 3 times a week -can use [employer] ??? Nutrition - 12/13/21 On track Nutrition Goals: ??? Establish exercise routine - goal of 150 minutes per week of aerobic exercise (treadmill, walking outside); resistance bands daily (alternate between upper and lower body); explore at home exercise options ??? Choose protein first at all eating events - plain malagasy yogurt, with fruit, 1 tsp ground flaxseed, unsweetened coconut flakes, nuts/seeds; vegetables with peanut butter/doshi dip/malagasy yogurt dips/hard boiled egg/slice of deli meat/cheese stick; fruits with nuts/nut; protein on salad; butter/cheese/1/2 cup lowfat cottage cheese/malagasy yogurt ??? Practice Bariatric Drinking Behaviors - [...] going for a walk, etc) ??? sleep On track ?? Follow up with sleep, do sleep study. Goal 7 hours of sleep nightly. ?? Recommend consistent sleep and wake times, avoid electronics within one hour of sleep time ??? stress management On track ?? Mindfulness/deep breathing practice to reduce cortisol -try for at least 10 minutes a day -try an ap such as headspace ?? I have referred you to our psychologist to work on eating behaviors ?? [employer] Favor Maker is sending hand-outs with exercises for mindful eating, The Pause/STOP and Urge surfing. Patient will review and try implementing some behaviors before we meet again. Pathway: [facility] PATHWAY - ADULT 12/01/2021 06/07/2021 Medication Therapy - Activate Pre- Bariatric Surgery Activate - Obesity Medicine Inactivate Activate PATHWAY DISCUSSION Bsp, ready for psych evaluation REVIEW OF SYSTEMS: see above HPI for pertinent +/- findings VITAL SIGNS: No data found. Body mass index is 38.24 kg/m??. PHYSICAL EXAM: Gen: Alert and appropriate, NAD. Engaged in our visit today LABS: Last CBC Lab Results Component Value Date WBC 10.2 (H) 06/07/2021 RBC 4.43 06/07/2021 HGB 12.9 06/07/2021 HCT 38.7 06/07/2021 MCV 87.4 06/07/2021 MCH 29.1 06/07/2021 MCHC 33.3 06/07/2021 PLATELET 395 (H) 06/07/2021 RDWCV 13.3 06/07/2021 Last CMP Lab Results Component Value Date NA 137 06/07/2021 K 3.7 06/07/2021 CL 105 06/07/2021 CO2 20 (L) 06/07/2021 BUN 15 06/07/2021 CREATININE 0.81 06/07/2021 GLUCFASTING 84 06/07/2021 CALCIUM 9.0 06/07/2021 ESTGFR 89 06/07/2021 Lab Results Component Value Date ALT 28 06/07/2021 AST 16 06/07/2021 ALKPHOS 137 (H) 06/07/2021 BILITOT 0.4 06/07/2021 ALBUMIN 4.9 06/07/2021 PROT 8.0 06/07/2021 Lipid Panel Lab Results Component Value Date CHLPL 173 06/07/2021 HDL 56 06/07/2021 CHOLHDL 3.1 06/07/2021 TRIG 97 06/07/2021 LDLCHOL 98 06/07/2021 Last 3 Hemoglobin A1Cs Lab Results Component Value Date HA1C 4.8 06/07/2021 Latest TSH Lab Results Component Value Date TSH 1.47 06/07/2021 Lab Results Component Value Date LABINSU 10.8 06/07/2021 Lab Results Component Value Date GLUCFASTING 84 06/07/2021 Lab Results Component Value Date FERRITIN 172 (H) 06/07/2021 No results found for: [id number] 25-OH Vit D Total (ng/mL) Date Value Status 06/07/2021 24 Final ASSESSMENT AND PLAN Leandra Wilks was seen in follow up today for ongoing obesity, not yet at treatment goal [x] with improvement [] without change. Goals and treatment options were discussed. Continue medical management and lifestyle changes. Discussion 01/02/22: pathways, Pillars, SMART goals, Addressing mindless eating and Medication options with r/b Diagnoses and all orders for this visit: Class 2 severe obesity due to excess calories with serious comorbidity and body mass index (BMI) of39.0 to 39.9 in adult - naltrexone (Depade) 50 mg Tablet; Take 0.5 tablets by mouth 2 times daily. Encounter for pre-bariatric surgery counseling and education CHUN (obstructive sleep apnea) Return for psychologist, Bariatric. 5 min chart review 22 min [id number] Visit time 6 min Documentation time I spent time as above caring for this patient today; ordering/reviewing labs and medications, documenting visit, coordinating care, updating EMR, counseling in diet and/or exercise and discussion of treatment options in the care of obesity. documented in this encounter Plan of Treatment [...] psychologist to work on eating behaviors Health Favor Maker is sending hand-outs with exercises for mindful [...] (BMI) of 39.0 to 39.9 in adult Encounter for pre-bariatric surgery counseling and education CHUN (obstructive sleep apnea) Obstructive sleep apnea (adult) (pediatric) documented in this encounter Care Teams Slate Cutter Operator Relationship Specialty Start Date End Date Debby Puri MD [address] [place] [address] PCP - General Family Medicine 07/13/20 06/06/22 documented as of this encounter
--- OUTSIDE RECORDS SUMMARY | 2024-06-01 06:59 | XMS_ITS | Encounter Summary ---
Author Organization [facility] Address [facility] [place] [address] Care Team Providers Care Hall Clerk Name Role Phone Debby Puri MD Primary Care Provider [phone] Reason for Referral * Diagnostic Test (Routine) - Closed Specialty Diagnoses / Procedures Referred By Chela doyle Referred To Contact Sleep Center Diagnoses Snoring Procedures Home Sleep Study HST Sharla Kirkland MD [facility] [place] [address] [facility] Sleep Medicine [address] [place] [address] Referral ID Status Reason Start Date Expiration Date V isits Requested Visits Authorized [id number] Closed Specialty Service Requested 08/24/2021 08/24/2022 1 1 Reason for Visit * Consultation (Routine) - Closed Specialty Diagnoses / Procedures Referred By Contangelo t Referred To Contact Sleep Center Diagnoses Fatigue, unspecified type Class 2 severe obesity due to excess calories with serious comorbidity and body mass index (BMI) of 39.0 to 39.9 in adult Jill Farooq APRN [facility] [address] [place] [address] [facility] Sleep Medicine [address] [place] [address] Referral ID Status Reason Start Date Expiration Date V isits Requested Visits Authorized [id number] Closed Specialty Service Requested 06/07/2021 06/07/2022 1 1 Encounter Details Date Type Department Care Team (Late st Contact Info) Description 08/24/2021 11:00 AM EDT TH Visit (TeleHealth) Sleep Center at [facility] [address] [place] [address] Sharla Kirkland MD [facility] [place] [address] Snoring (Primary Dx) Social History Tobacco Use Types Packs/Day Years [...] - Inhaled Oxygen Concentration - - Weight 100.7 kg (222 lb) 08/22/2021 3:47 PM EDT Height 162.6 cm (5' 4) 08/22/2021 3:47 PM EDT Body Mass Index 38.11 08/22/2021 3:47 PM EDT documented in this encounter Progress Notes * Sharla Kirkland MD - 08/24/2021 11:00 AM EDT TELEHEALTH VISIT Sleep Medicine Consultation Note ID and location confirmed. HPI: Ms. Leandra Wilks is a 41 y.o. female seen at the request of Debby Puri MD for advice regarding sleep disturbances. Hard time sleeping at night Wakes every 2 hrs, plays on phone, may watch TV for a couple hours. Sleep issues worse in the last 2 yrs. Always hard to fall asleep, but otherwise was able to sustain sleep. A lot more headaches lately. Bad back pain, may be part of it.. Headaches wake her, ibuprofen not helpful. In addition to disrupted, poor sleep - also report of hallucinations (see spiders), happening in the last 6 months. No past medical history on file. Reports: Glaucoma Coostochondritis IBS DDD, OA Carpal tunnel, left hand (right has been operated on) Cubital syndrome, Tendonitis Headaches, migraines Fibromyalgia. Outpatient Medications Marked as Taking for the 08/24/21 encounter (TH Visit (TeleHealth)) with Sharla Kirkland MD Medication Sig Dispense Refill ??? oxybutynin (DITROPAN XL) 15 mg Tablet Extended Rel 24 hr ??? propranoloL (Inderal) 20 mg Tablet TAKE ONE TABLET BY MOUTH TWICE A DAY ??? lamoTRIgine (LaMICtal) 150 mg Tablet TAKE ONE TABLET BY MOUTH TWICE A DAY ??? [DISCONTINUED] oxybutynin (DITROPAN-XL) 10 mg Tablet Extended Rel 24 hr Take 15 mg by mouth daily. ??? metFORMIN XR (Glucophage XR) 500 mg Tablet Sustained Release 24 hr Take 2 tablets by mouth 2 times daily. Always take with meals. 120 tablet 3 ??? cyclobenzaprine (Flexeril) 5 mg Tablet TAKE ONE TABLET BY MOUTH THREE TIMES A DAY NEEDED FORBACK PAIN ??? FLUoxetine (PROzac) 20 mg Capsule Daily. ??? guanFACINE (Tenex) 1 mg Tablet TAKE ONE HALF TABLET BY MOUTH TWICE A DAY ??? ibuprofen (Advil) 600 mg Tablet ibuprofen 600 mg tablet Take 1 tablet every 6-8 hours by oral route as needed. ??? naproxen (NAPROSYN) 500 mg Tablet TAKE ONE TABLET BY MOUTH TWICE A DAY WITH FOOD NEEDED FOR PAIN ??? latanoprost (XALATAN) 0.005 % Drops INSTILL 1 DROP IN EACH EYE AT BEDTIME DIRECTED 3 ??? PROAIR HFA 90 mcg/actuation HFA Aerosol Inhaler INHALE 1 TO 2 PUFFS FOUR TIMES A DAY NEEDED WHEN COUGHING AND BEFORE EXERCISE 2 Past Surgical History: Procedure Laterality Date ??? ABDOMINAL EXPLORATION SURGERY 10/31/2004 b/l salpingectomy and removel enodmetrial implantsin cul de sac ??? APPENDECTOMY ??? CARPAL TUNNEL RELEASE Bilateral ??? CHOLECYSTECTOMY ??? HYSTERECTOMY, VAGINAL 05/12/2015 NO tonsillectomy Sleep Apnea Risk: Snoring: yes Severity: can be bad enough to wake her Frequency: doesn't think nightly Duration: dates back to childhood Over time: getting worse Modifying factors: being over tired contributes, supine position Observed Apneas: no Mouth Breathing: no Dry Mouth: no Nocturnal Gasping: no Nasal Obstruction: sniffles first thing Weight: stable - 221 lbs Sleep Pattern: Location: bedroom Bed/Recliner/Wedge: bed # of pillows under head: 2 Position: side, tries not to sleep on her back Bedtime: into bed at 8-9 pm, shuts down at 9:30 - 10:00, playing on phone After shutting down the phone, 15-20 min. Will wake and hard to get back to sleep. Starts day at 7-8 am, this is earlier. Schedule change to earlier. Estimates 6-7 hrs is good night Doesn't feel that good the next day, sleepy Sleepiness for at least a year or more. Sometimes napping - 3 days a week, no more than two hours. Always had some napping Daytime Symptoms: Apex: Patient-reported last 4 scores: No flowsheet data found. Daytime fatigue/sleepiness: yes Naps:yes Involuntary Dozing: normally just at home, sitting watching TV Driving: no Close calls related to sleepiness: no Accidents related to sleepiness: no Sleep Review of Symptoms Parasomnias: Sleep Walking: no Dream Enactment: no Motor: RLS: no PLMS: no Narcolepsy: Hallucinations: had that for 6 months - if sleeping, something wakes her up, do you see that? sawa spider crawling, clearly saw it, 30-40 sec. Been happening a few times a week, around 2-3 am. Mostly spiders, hanging above her face. Paralysis: no Cataplexy: no ROS: CON: weight change: see HPI ENT: nasal obstruction: see HPI NEURO: sleep related headaches:yes, daily CV: chest pain: sometimes, constochondritis Palpitations: n PUL: POTTER: +sob, + cough, + asthma - not horrible unless exposed to smoke, not on regular medications PSY: Depression: no Anxiety: yes, can even impact getting out of the house GI: GERD: yes : Nocturia: 3 x MSK: Pain: back pain, headaches, arthritic pain, fibro ALL: Environmental Allergies: no Past/Childhood Sleep History: no prior sleep study Family History: Family history of sleep disorders: dad sleeps a lot Patient Active Problem List Diagnosis Code ??? Irritable bowel syndrome with diarrhea K58.0 ??? Back pain M54.9 ??? Chronic pelvic pain in female R10.2, G89.29 ??? Unspecified dyspareunia [id number] ??? Mood disorder F39 ??? Calculi, ureter N20.1 ??? Pain in right foot M79.671 ??? Endometriosis N80.9 ??? Glaucoma H40.9 ??? Fibromyalgia M79.7 ??? Osteoarthritis, multiple sites M15.9 ??? Class 2 severe obesity due to excess calories with serious comorbidity and body mass index (BMI) of 39.0 to 39.9 in adult E66.01, Z68.39 ??? Depression with anxiety F41.8 Social History: Alcohol: no Smoking: non-smoker Caffeine: avoids soda (headache), iced coffe PE: Ht 162.6 cm (5' 4) Wt 100.7 kg (222 lb) BMI 38.11 kg/m?? Alert, pleasant, normal speech Assessment: Ms. Leandra Wilks is a 41 y.o. female who is seen to evaluate for poor sleep, frequent awakenings, daytime sleepiness, need for naps, snoring and hallucination - seeing spiders (6 months). Discussed the potential impact of untreated CHUN on sleep quality, next day sleepiness. CHUN could wake someone in dream sleep and might contribute to more unusual symptoms such as the visual hallucinations she describes. With her poor sleep, she may end up napping in the day, contributing to poor sleep at night. The pathophysiology of, the reasons to treat and treatment options for obstructive sleep apnea wereall reviewed with the patient today. Discussed testing options and reasonable to proceed to an HSATfirst. Discussed treatments. She would be open to a trial of AUTOPAP, if indicated. Also reviewed that changing the timing/consistency of her sleep schedule, especially when CHUN is treated, may be helpful to improve sleep consolidation. No specific recommendations given today. Time spent in the visit today 65 min, including chart review, discussion, and documentation. Recommendations: 1) Polysomnography - HSAT first 2) Driving safety was reviewed with patient. If the patient feels too sleepy to drive he/she knows not to drive. If he/she becomes sleepy while driving he/she will black puller and nap. Discussed. The patient indicates understanding of these issues and agrees with the plan. Sharla Kirkland MD Patient confirms that study results can be sent through the [employer] system documented in this encounter Plan of Treatment Scheduled Orders Name Type Priority Associated Diagnoses Orde r Schedule Home Sleep Study Sleep Center Routine Snoring Expected: 08/24/2021, Expires: 08/24/2022 Scheduled Procedures Name Priority Associated Diagnoses Date/Ti [...] to work on eating behaviors Health Faculty Head is sending hand-outs with exercises for mindful [...] as of this encounter Visit Diagnoses Diagnosis Snoring- Primary Other dyspnea and respiratory abnormality documented in this encounter Care Teams Hall Clerk Relationship Specialty Start Date End Date Debby Puri MD [address] [place] [address] PCP - General Family Medicine 07/13/20 06/06/22 documented as of this encounter
--- OUTSIDE RECORDS SUMMARY | 2024-06-01 06:59 | XMS_ITS | Encounter Summary ---
[place] [address] Care Team Providers Care Slag Skimmer Name Role Phone Cari Banuelos MD Primary Care Provider [phone] Encounter Details Date Type Department Care Team (Late st Contact Info) Description 05/03/2011 [place] [address] Halley Madison RN Social History Tobacco Use Types Packs/Day [...] colon cancer documented as of this encounter Visit Diagnoses Not on filedocumented in this encounter Care Teams Slag Skimmer Relationship Specialty Start Date End Date Cari Banuelos MD [address] [place] [address] [address] [place] [address] PCP - General 10/10/10 07/12/20 documented as of this encounter
--- OUTSIDE RECORDS SUMMARY | 2024-06-01 06:59 | XMS_ITS | Encounter Summary ---
Author Organization [facility] [address] Care Team Providers Care Computer Terminal Operator Name Role Phone Cari Banuelos MD Primary Care Provider [phone] Encounter Details Date Type Department Care Team (Latest Contact Info) Description 06/08/2014 - 06/08/2014 11:59 PM EDT Hospital Encounter [place] [id number] Corey Huizar MD [facility] [place] [address] Pain Discharge Disposition: Home Social History Tobacco Use Types Packs/Day Years Used Date Smoking Tobacco: Never Assessed Sex and Gender Information Value Date Recorded Sex Assigned at Female 10/05/2021 8:56 AM EST Gender Identity Not on file Sexual Orientation Straight 10/05/2021 8: 56 AM EST documented as of this encounter Medications at Time of Discharge Medication Sig Dispensed Refills Start Date End Date lamoTRIgine (LAMICTAL) 100 mg Tablet Twice a day 02/10/2013 07/20/2021 prazosin (MINIPRESS) 1 mg Capsule hs prn 02/24/2013 06/07/2021 omeprazole (PRILOSEC) 40 mg capsule 10/27/2010 10/05/2016 HYDROmorphone (DILAUDID) 2 mg tablet 2 M-4 Tablet(s), PO, Q4H PRN 10/27/2010 10/05/2016 acetaminophen (TYLENOL) 325 mg tablet 325 M-2 Tablet(s), PO, Q6H PRN 10/27/2010 10/05/2016 bisacodyl (DULCOLAX) 5 mg EC tablet 5 M-2 Tablet(s), PO, Once daily 10/27/2010 10/05/2016 ciprofloxacin (CIPRO) 500 mg tablet 500 MG = 1 Tablet(s), PO, Twice daily 10/27/2010 10/05/2016 metroNIDAZOLE (FLAGYL) 500 mg tablet 500 MG = 1 Tablet(s), PO, Three times daily 10/27/2010 10/05/2016 Ibuprofen 200 mg Cap 10/27/2010 016 cholestyramine (QUESTRAN) 4 gram packet 4 GRAM = 1 Packet(s), PO, Twice daily 10/27/2010 10/05/2016 documented as of this encounter Plan of Treatment Scheduled Procedures Name Priority Associated Diagnoses Date/Ti me COLONOSCOPY, DIAGNOSTIC (WRV U 3.26) Biliary stricture Screening for colon cancer documented as of this encounter Procedures Procedure Name Priority Date/Time Associated Diagnosis Comments FILM LIBRARY STORAGE ONLY ULTRASOUND STUDY Routine 06/08/2014 12:00 AM EDT Pain documented in this encounter Results * Film Library- Storage Only Ultrasound Study (06/08/2014 12:00 AM EDT) Narrative [facility] - 09/13/2016 1:18 AM EDT This exam is for storage only and is auto-finalizing. Corey Huizar MD IMG FILM LIBRARY ORD ERABLES Performing Organization Address City/State/[facility] Co de Phone Number [place], [place] documented in this encounter Visit Diagnoses Diagnosis Pain Generalized pain documented in this encounter Care Teams Computer Terminal Operator Relationship Specialty Start Date End Date Cari Banuelos MD [address] [place] [address] PCP - General 10/10/10 07/12/20 documented as of this encounter
--- OUTSIDE RECORDS SUMMARY | 2024-06-01 06:59 | XMS_ITS | Encounter Summary ---
Author Organization [facility] [place] [address] Care Team Providers Care Artificial Flowers Starcher Name Role Phone Debby Puri MD Primary Care Provider Encounter Details Date Type Department Care Team (Latest Contact Info) Description 07/05/2021 3:30 PM EDT TH Visit (TeleHealth) Weight and Wellness at [address] [address] Russ Henry Class 2 severe obesity due [...] Instructions * Patient Instructions* Russ Henry - 07/05/2021 3:30 PM EDT It was good to meet you Leandra. I'm sending you some hand-outs for you to review and start practicing some mindful eating exercises. I look forward to talking with you in a few week to hear how things go for you. Remember that it is a practice and can take some time to start to feel comfortable sobe patient with yourself and enjoy!! Be well, Russ Henry Health Quality Assurance documented in this encounter Progress Notes * Russ Henry - 07/05/2021 3:30 PM EDT Leandra Wilks is here today at the request of Jill Farooq for lifestyle coaching for weight control and overall health. FIRST VISIT 1. Clarify BIG WHY:concerned about continued weight gain 2. Assess Strengths: good self-awareness, enjoy walking 3. Review Healthy habits guidelines for exercise, sleep, and stress- see below 4. Teach SMART goals and practice setting one. Review specific goals if any from provider Goals ??? meal timing/food choices ?? Meal timing: consider eating within an 8-10 hour eating window, nothing after dinner, avoid snacking - maybe try to have meals at 12 and 5, work on meal planning, check out mealime ?? Try to start your day with [...] week -can use therabands ??? Nutrition - 06/21/21 Nutrition Goals: ??? Establish exercise routine - goal of 150 minutes per week of aerobic exercise (treadmill, walking outside); resistance bands daily (alternate between upper and lower body) ??? Increase protein at breakfast and lunch - plain sami yogurt, with fruit, 1 tsp ground flaxseed, unsweetened coconut flakes, nuts/seeds; vegetables with peanut butter/doshi dip/sami yogurt dips/hard boiled egg/slice of deli meat/cheese stick; fruits with nuts/nut butter/cheese/1/2 cup lowfat cottage cheese/sami yogurt ??? Establish bedtime routine - dim lights, eliminate screens 30-60 minutes before sleep, set your brain up for sleep (meditation, journaling, gratitude journal, breathing exercises, stretching, soothing music, etc) ??? sleep ?? Sleep consult ordered. Goal 7 hours of sleep nightly. ?? Recommend consistent sleep and wake times, avoid electronics within one hour of sleep time ??? stress management ?? Mindfulness/deep breathing practice to reduce cortisol -try for at least 10 minutes a day -try an ap such as headspace ?? I have referred you to our psychologist to work on eating behaviors Exercise Current level of CV activity: walk 20-40 minutes usually, most days of the week although I hzve slacked off in the last couple of weeks. Time, Intensity and Frequency: OR Daily step count: Resistance training (episodes per week, time per episode): Meets guideline? Challenges and facilitators: Can you advance? NEW SMART goal: Sleep Current hours sleep times: Frequency of awakenings: Meets guidelines? Challenges and facilitators: What can you change? NEW SMART goal: no goals yet Stress Current daily habits to decrease stress/enjoy stress free time: Meets guidelines - has a good plan? What can you change? NEW SMART goal: Health Quality Assurance is sending hand-outs with exercises for mindful eating, The Pause/STOPand Urge surfing. Patient will review and try implementing some behaviors before we meet again. Self-monitoring What are you doing now? If no personal accountability process, what can you add? [x]Food log: [] daily [x] intermittent []Weigh-ins: [] daily [] weekly []Exercise log []Gratitude journal []Other: Food Behaviors (optional): Current concerns/challengese (eating outside of prescribed hours, struggling with snacking, portioncontrol, craving, etc): Watching portion sizes Future follow-up with health executive coach will address identified areas of concern: [x] Exercise []Sleep [x]Stress [x]Accountability []Food Behaviors []Self-compassion (NEW SMART goal should be set at every visit in at least one of the first 3 realms, depending on patient preference. The NEW goal can modify that which was not previously met to make it more attainable OR if achieved, advances to the next level.) Below are guidelines for optimal health that we will help you to achieve OVER TIME. We do not expect you to adopt everything all at once or make huge leaps. We don't even expect that you will achievethem all because nobody is perfect! Nutrition: Whole food, quality diet, more plants. (See the back page of your Welcome Book). This robles general recommendation for all patients. Your materials and processes manager and provider will help make more specificrecommendations [...] increasing mindfulness throughout the day. Your health executive coach is well-equipped to guide you to find something to look forward to everyday. Eating behaviors: many people benefit from restricting the hours in which they eat. You can choose an eating window of 8-12 hours to start. Make a pact with yourself that you will not take in anything with caloric content outside this window. Your materials and processes manager may make further recommendations documented in this [...] On track(2021 10:28 AM EST) Jill Colmenares, EXPLOSIVE OPERATOR Note: Mindfulness/deep breathing practice to reduce cortisol -try for at least 10 minutes a day -try an ap such as headspace I have referred you to our psychologist to work on eating behaviors Health Quality Assurance is sending hand-outs with exercises for mindful eating, The Pause/STOP and Urge surfing. Patient will review and try implementing some behaviors before we meet again. movement Lifestyle On track(2021 10:29 AM EST) Jill Colmenares, EXPLOSIVE OPERATOR Note: Exercise goal is 150 min [...] adult documented in this encounter Care Teams Artificial Flowers Starcher Relationship Specialty Start Date End Date Debby Puri MD [address] [place] [address] PCP - General Family Medicine 07/13/20 06/06/22 documented as of this encounter
--- OUTSIDE RECORDS SUMMARY | 2024-06-01 06:59 | XMS_ITS | Encounter Summary ---
Author Organization [facility] Address [facility] [place] [address] Care Team Providers Care Release Of Information Clerk Name Role Phone Debby Puri MD Primary Care Provider [phone] Reason for Referral * Diagnostic Test (Routine) - Closed Specialty Diagnoses / Procedures Referred By Chela doyle Referred To Contact Sleep Center Diagnoses Snoring Procedures Sleep Study Diagnostic PSG / Split Night Sleep Study Diagnostic PSG / Split Night PSG Sharla Kirkland MD [facility] [place] [address] [facility] Sleep Medicine [address] [place] [address] Referral ID Status Reason Start Date Expiration Date V isits Requested Visits Authorized [id number] Closed Specialty Service Requested 09/26/2021 09/26/2022 1 1 Encounter Details Date Type Department Care Team (Late st Contact Info) Description 09/12/2021 11:00 AM EDT Procedure visit Sleep Center at [facility] [address] [place] [address] Sharla Kirkland MD [facility] [place] [place] [address] Snoring (Primary Dx) Social History Tobacco Use Types Packs/Day Years Used Date Smoking Tobacco: Never Smokeless Tobacco: Never Sex and Gender Information Value Date Recorded Sex Assigned at Female 10/05/2021 8:56 AM EST Gender Identity Not on file Sexual Orientation Straight 10/05/2021 8: 56 AM EST documented as of this encounter Progress Notes * Sharla Kirkland MD - 09/12/2021 11:00 AM EDT Images from the original note were not included. REPORT OF DIAGNOSTIC HOME SLEEP TEST IDENTIFYING INFORMATION Leandra Wilks : 1980 PRIMARY CARE PHYSICIAN: Debby Puri MD History Of Present Illness: Leandra Wilks is a 41 y.o. female who presents for a polysomnogram. She reports loud snoring, poor sleep, and history of fibromyalgia. Limited Polysomnography: The recording includes chest/abdominal respiratory effort, nasal pressure air flow, snoring and oxygen saturation (by pulse oximeter). Comment: - Respiratory: GOYO 4% of 4 was noted with a minimum saturation of 89%. Mean saturation of 96%. No time was spent with a saturation less than or equal to 88%. - Cardiac: Heart rate ranged from 33 to 91 bpm with an average heart rate of 68 bpm. - Other: Total recording time of 395 minutes. Assessment: Ms. Leandra Wilks is a 41 y.o. female whose home sleep test was non-diagnostic for obstructive sleep apnea. Home sleep testing may underestimate sleep apnea severity. Results and recommendations relayed via [employer]. Recommendations: To assess if CHUN is playing a role in her presenting symptoms, a formal in lab PSGin recommended. - In lab polysomnogram Sharla Kirkland MD * Doc[employer] message sent [facility] HOME SLEEP APNEA TEST REPORT Patient Name: Leandra Wilks Study Date: 09/12/2021 Age & Sex: 41 y.o. Female Height: 5'4.17 Date of : 1980 Weight: 228 BMI: 38.9 Referring Prov.: Scoring Tech: Shari Lyons [facility] Sleep Fellow: Sleep Specialist: SHARLA KIRKLAND M.D. General Test Details Type III home sleep apnea testing was performed utilizing nasal pressure, single thoracoabdominal movement, heart rate, and oxygen saturation according to established AASM guidelines. Recording Start Time: 23:40:55 Monitoring Start Time: :40:55 Recording End Time: :15:55 Monitoring End Time: 06:15:55 Total Recording Time (TRT): 395.0 minutes Monitoring Time (MT): 395.0 minutes Respiratory Details Respiratory Event Total Count Index (events/hr) Obstructive apnea 1 0.2 Mixed apnea 0 0.0 Central apnea 3 0.5 Sum of all apnea types 4 0.6 Hypopneas without associated desaturation 0 0.0 Hypopneas with desaturation ?4% (CMS) 23 3.5 4% Respiratory Event Index (4%GOYO): 4.1 *Includes the sum of all apneas and hypopneas (assoc. with desaturation of ?4%) per hour of monitoring. 4% AHI (CMS): 4.1 *Includes the sum of all apneas and hypopneas (assoc. with desaturation of ?4%) per hour of monitoring. Marcos-Alaniz Breathin.0% of total monitoring time Minimum SpO2: 89% Average SpO2 (during TRT): 96% SpO2 ? X%: Total Time ?90% 1.0 min ?89% 0.6 min ?88% 0.5 min SpO2 Ranges: Total Time 90%-99% 389.4 min 80%-90% 0.1 min 70%-80% 0.0 min 60%-70% 0.0 min 0%-60% 0.5 min Cardiac Details Minimum Heart Rate 33 bpm Maximum Heart Rate 91 bpm Average Heart Rate 68 bpm Graphs Time Scale Respiratory Event Graph SpO2 Trend documented in this encounter Miscellaneous Notes * Addendum Note - Sharla Kirkland MD - 09/12/2021 11:00 AM EDTAddended by: SHARLA KIRKLAND on: 11/06/2021 12:26 PM Modules accepted: Orders documented in this encounter Plan of Treatment Scheduled Orders Name Type Priority Associated Diagnoses Orde r Schedule Sleep Study Diagnostic PSG / Split Night Sleep Center Routine Snoring Expected: 11/06/2021, Expires: 11/05/2022 Scheduled Procedures Name Priority Associated Diagnoses Date/Ti [...] psychologist to work on eating behaviors Health Anatomy Teacher is sending hand-outs with exercises for [...] training 3 times a week -can use [employer] Nutrition - 09/26/22 Lifestyle On track(2021 10:29 [...] abnormality documented in this encounter Care Teams Release Of Information Clerk Relationship Specialty Start Date End Date Debby Puri MD [address] [place] [address] PCP - General Family Medicine 07/13/20 06/06/22 documented as of this encounter
--- OUTSIDE RECORDS SUMMARY | 2024-06-01 06:59 | XMS_ITS | Encounter Summary ---
Author Organization [facility] [place] [address] Care Team Providers Care Loan Operations Manager Name Role Phone Debby Puri MD Primary Care Provider Encounter Details Date Type Department Care Team ([facility] Contact Info) Description 06/21/2021 9:00 AM EDT TH Visit (TeleHealth) Weight and Wellness at [address] [id number] [address] Adult BMI 37.0-37.9 kg/sq m Social History Tobacco Use Types [...] - - Weight 100.7 kg (222 lb) 06/21/2021 9:20 AM EDT Height 163 cm (5' 4.17) 06/21/2021 9:20 AM EDT Body Mass Index 37.9 06/21/2021 9:20 AM EDT documented in this encounter Patient Instructions * Patient Instructions* Hailee Martínez RD - 06/21/2021 9:00 AM EDT Nutrition Goals: ??? Establish exercise routine - goal of 150 minutes per week of aerobic exercise (treadmill, walking outside); resistance bands daily (alternate between upper and lower body) ??? Increase protein at breakfast and lunch - plain chinese yogurt, with fruit, 1 tsp ground flaxseed, unsweetened coconut flakes, nuts/seeds; vegetables with peanut butter/doshi dip/chinese yogurt dips/hard boiled egg/slice of deli meat/cheese stick; fruits with nuts/nut butter/cheese/1/2 cup lowfat cottage cheese/chinese yogurt ??? Establish bedtime routine - dim lights, eliminate screens 30-60 minutes before sleep, set your brain up for sleep (meditation, journaling, gratitude journal, breathing exercises, stretching, soothing music, etc) documented in this encounter Progress Notes * Hailee Martínez RD - 06/21/2021 9:00 AM EDT Nutrition Intervention for Weight Management Initial RD visit with SIMONA Thompson 1980 Assessment/Nutrition Diagnosis: Pt at increased nutritional risk related to excessive calorie intake and sub optimal physical activity resulting in overweight/obesity as evidenced by BMI and diet recall Telehealth / telephone visit conducted while patient was at home at the following address: [address] [place], [place] [address] [place] [address] Food Trackers: no Activity: treadmill 20 minutes every other day; walking 2x/week 15-20 minutes; has resistance bands, uses daily; Weight Today: has scale at home, typically weighs every other day Vitals 06/21/2021 Height (Niuean) 64.173 Height (Metric) 163 cm Weight (Niuean) 222 lbs Weight (Metric) 100.699 kg BMI (Calculated) 37.9 kg/m2 Weight Loss History: weight gain started after having children; weighed 122 pounds when 16, 1st child daughter - lost weight afterwards but was 179 pounds; 2nd, 3rd, 4th child weight continued to climb into the 200 pound range; tried diets and exercise - eating less, not eating at bedtime; currently trying diet plan - containers of food (mainly fruit, veggies) for snacks; Appetite/Hunger: hungry at meal times Typical Dietary Intake: Wakeup - 7:30/8am; sometimes rested, not hungry 7:30/8: water with medication 9:30/10am first time feel hungry 9:30/10am B: fruit - 1/2 nectarine OR 1/2 peach; small glass orange juice; lowfat yogurt - blueberry, fit and trim; 1/2pm L: fruit or vegetables; glass of unsweetened black tea, 1/4 tsp honey; 6pm D: small piece chicken breast - olive oil, salt and pepper; 1 cup couscous; black tea unsweetened; 7:30pm S: fruit Bedtime - 9:30pm, trouble falling asleep - before bed watching movie/checking facebook, trouble staying asleep Typical Beverages: water; juice; black tea Patient Goals from Team: Goals ??? meal [...] times a week -can use [employer] ??? sleep ?? Sleep consult ordered. Goal [...] our psychologist to work on eating behaviors Interview: currently trying diet plan - containers of food (mainly fruit, veggies) for snacks; dinner chicken and couscous on side; has sleep study scheduled; Barriers to Change: none identified Nutrition Goals: (1) increase protein at breakfast and lunch (2) establish exercise routine (3) bedtime routine for better sleep Assessing Calorie Goals at this time No Monitor/Evaluate: Will follow up in 2 months Aim for 5-10% weight loss from ABW x 3-6 months from initial visit Thank you Hailee Martínez MS RDN LD 60 minutes were spent in visit today, including [...] psychologist to work on eating behaviors Health Field Ring Assembler is sending hand-outs with exercises for [...] this encounter Visit Diagnoses Diagnosis Adult BMI 37.0-37.9 kg/sq m Body Mass Index 37.0-37.9, adult documented in this encounter Care Teams Loan Operations Manager Relationship Specialty Start Date End Date Debby Puri MD [address] [place] [address] PCP - General Family Medicine 07/13/20 06/06/22 documented as of this encounter
--- OUTSIDE RECORDS SUMMARY | 2024-06-01 06:59 | XMS_ITS | Encounter Summary ---
Author Organization [facility] [place] [address] Care Team Providers Care Interventional Cardiologist Name Role Phone Cari Banuelos MD Primary Care Provider [phone] Encounter Details Date Type Department Care Team (Latest Contact Info) Description 08/29/2016 - 08/29/2016 11:59 PM EDT Hospital Encounter [place] [id number] Corey Huizar MD [facility] [place] [address] Pain Discharge Disposition: Home Social History Tobacco Use Types Packs/Day Years Used Date Smoking Tobacco: Never Assessed Sex and Gender Information Value Date Recorded Sex Assigned at Female 10/05/2021 8:56 AM EST Gender Identity Not on file Sexual Orientation Straight 10/05/2021 8: 56 AM EST documented as of this encounter Medications at Time of Discharge Medication Sig Dispensed Refills Start Date End Date latanoprost (XALATAN) 0.005 % Drops Place 1 drop into both eyes nightly. 3 07/30/2016 PROAIR HFA 90 mcg/actuation HFA Aerosol Inhaler Inhale 1 puff into the lungs every 6 hours as needed. 2 04/11/2016 lamoTRIgine (LAMICTAL) 100 mg Tablet Twice a day 02/10/2013 07/20/2021 prazosin (MINIPRESS) 1 mg Capsule hs prn 02/24/2013 06/07/2021 topiramate (TOPAMAX) 25 mg Tablet TAKE THREE TABLETS BY MOUTH TWICE A DAY DIRECTED 2 08/24/2016 07/20/2021 buPROPion (WELLBUTRIN XL) 300 mg Tablet Sustained Release 24 hr Daily 05/13/201505/19 loperamide (IMODIUM A-D) 2 mg Tablet Twice a day 08/13/2016 06/07/2021 meloxicam (MOBIC) 15 mg Tablet TAKE 1 TABLET BY MOUTH DAILY 0 08/13/2016 06/07/2021 cholecalciferol, Vitamin D3, 50,000 unit Capsule TAKE 1 CAPSULE BY MOUTH WEEKLY 0 08/13/2016 06/07/2021 ondansetron (ZOFRAN-ODT) 4 mg Tablet, Rapid Dissolve DISSOLVE ONE TABLET ON THE TONGUE EVERY 4 HOURS 0 08/10/2016 06/07/2021 omeprazole (PRILOSEC) 40 mg capsule 10/27/2010 [...] FILM LIBRARY STORAGE ONLY ULTRASOUND STUDY Routine 08/29/2016 12:00 AM EDT Pain documented in this encounter Results * Film Library- Storage Only Ultrasound Study (08/29/2016 12:00 AM EDT) Narrative RAD - 09/13/2016 1:22 AM EDT This exam is for storage only and is auto-finalizing. Corey Huizar MD IMG FILM LIBRARY ORD ERABLES Performing Organization Address City/State/[facility] Co de Phone Number [place], [place] documented in this encounter Visit Diagnoses Diagnosis Pain Generalized pain documented in this encounter Care Teams Interventional Cardiologist Relationship Specialty Start Date End Date Cari Banuelos MD [address] [place] [address] PCP - General 10/10/10 07/12/20 documented as of this encounter
--- OUTSIDE RECORDS SUMMARY | 2024-06-01 06:59 | XMS_ITS | Encounter Summary ---
Author Organization [facility] [place] [address] Care Team Providers Care Exchange Clerk Name Role Phone Debby Puri MD Primary Care Provider Encounter Details Date Type Department Care Team (Latest Contact Info) Description 07/20/2021 2:30 PM EDT TH Visit (TeleHealth) Weight and Wellness at [address] [id number] Jill Farooq APRN [facility] [place] [address] Class 2 severe obesity due to excess [...] - - Weight 103.4 kg (228 lb) 07/20/2021 7:00 PM EDT Height 163 cm (5' 4.17) 07/20/2021 7:00 PM EDT Body Mass Index 38.93 07/20/2021 7:00 PM EDT documented in this encounter Patient Instructions * Patient Instructions* Jill Farooq APRN - 07/20/2021 2:30 PM EDT From our visit today: Good to see you Leandra, time to regroup and find some balance. It seems you tend to be an all or nothing thinker, so when you do well it's extreme and when you don't you go to the other extreme, if you give up too much at once you will feel deprived as you did and swing back. Work on striking a balance. It seems eating in a 8-10 hour window works well as it give you some structure. Try doing that consistently. Shoot to meals as below, We will continue metformin, let me know if you have any questions or need anything, again, speak to your PCP about taking topamax as you have a history of kidney stones and glaucoma. Jill Goals Addressed This Visit's Progress ??? meal timing/food choices Not on track ?? Meal timing: consider eating within [...] daily. -great job with this ??? movement Not on track ?? Exercise goal is 150 min a week, just do some walking, even [address] to start ?? Recommend resistance training 3 times a week -can use therabands ??? Nutrition - 06/21/21 Not on track Nutrition Goals: ??? Establish exercise routine - goal of 150 minutes per week of aerobic exercise (treadmill, walking outside); resistance bands daily (alternate between upper and lower body) ??? Increase protein at breakfast and lunch - plain trinidadian yogurt, with fruit, 1 tsp ground flaxseed, unsweetened coconut flakes, nuts/seeds; vegetables with peanut butter/doshi dip/trinidadian yogurt dips/hard boiled egg/slice of deli meat/cheese stick; fruits with nuts/nut butter/cheese/1/2 cup lowfat cottage cheese/trinidadian yogurt ??? Establish bedtime routine - dim lights, eliminate screens 30-60 minutes before sleep, set your brain up for sleep (meditation, journaling, gratitude journal, breathing exercises, stretching, soothing music, etc) ??? sleep On track ?? Follow up with sleep, do sleep study. Goal 7 hours of sleep nightly. ?? Recommend consistent sleep and wake times, avoid electronics within one hour of sleep time Medications 07/20/211956 Medication Sig Taking? propranoloL (Inderal) 20 mg Tablet TAKE ONE TABLET BY MOUTH TWICE A DAY lamoTRIgine (LaMICtal) 150 mg Tablet TAKE ONE TABLET BY MOUTH TWICE A DAY oxybutynin (DITROPAN-XL) 10 mg Tablet Extended Rel 24 hr TAKE ONE TABLET BY MOUTH EVERY DAY topiramate (TOPAMAX) 50 mg Tablet TAKE ONE TABLET BY MOUTH TWICE A DAY metFORMIN XR (Glucophage XR) 500 mg Tablet Sustained Release 24 hr Take 2 tablets by mouth 2 times daily. Always take with meals. cyclobenzaprine (Flexeril) 5 mg Tablet TAKE ONE TABLET BY MOUTH THREE TIMES A DAY NEEDED FOR BACK PAIN FLUoxetine (PROzac) 20 mg Capsule Daily. guanFACINE (Tenex) 1 mg Tablet TAKE ONE HALF TABLET BY MOUTH TWICE A DAY ibuprofen (Advil) 600 mg Tablet ibuprofen 600 mg tablet Take 1 tablet every 6-8 hours by oral route as needed. naproxen (NAPROSYN) 500 mg Tablet TAKE ONE TABLET BY MOUTH TWICE A DAY WITH FOOD NEEDED FOR PAIN oxyCODONE (Roxicodone) 5 mg Tablet TAKE 1 TABLET BY MOUTH THREE TIMES A DAY NEEDED FOR PAIN MAX.3 TABLETS PER DAY latanoprost (XALATAN) 0.005 % Drops INSTILL 1 DROP IN EACH EYE AT BEDTIME DIRECTED PROAIR HFA 90 mcg/actuation HFA Aerosol Inhaler INHALE 1 TO 2 PUFFS FOUR TIMES A DAY NEEDED WHENCOUGHING AND BEFORE EXERCISE documented in this encounter Progress Notes * Jill Farooq APRN - 07/20/2021 2:30 PM EDT [facility] [place] Visit Patient provided verbal consent prior to initiation of this telemedicine encounter and expressed understanding that the telemedicine visit may be billed similar to a clinic visit, pt was seen while in [facility], I spent a total of 30 minutes in face to face discussion / counseling related to pathophysiology and treatment of obesity, nutrition and physical activity as well as obesity related co-morbidities aswell as charting, reviewing notes, labs, ordering medications,labs and coordinating care. Patient Name: Leandra [place] Date of : 1980 Age: [address] Debby Puri MD / CHIEF COMPLAINT: Follow-up for Obesity SUMMARY OF VISIT AND RECOMMENDATIONS: Leandra Wilks is currently being treated with metformin and lifestyle change for obesity. Leandra Wilks was seen in follow up today for ongoing management, and an updated medical, diet and activity review was completed. Leandra was doing really well, was losing weight but got discouraged as she felt she was not losingfast enough. It worked well for her to portion out healthy snacks, plan meals, eat more lean protein and vegetables, was going great but then she got discouraged by slow progress and went right back to her old habits, eating whatever she wanted, junk food, snacks, take out, huge portions. We discussed that likely was too restrictive and in order to make sustainable change she has to find a balance where she is eating healthy, moving, taking time to manage stress, sleep while not beingoverly restrictive. We discussed motivation, she wants to lose weight to feel better, look better, feel better about herself. Feels like a failure since going off track, feels bad about poor choices. Reviewed strategiesto help her keep her goal in mind when faced with food decisions. We discussed the fact that she brought a lot of junk food into the house, when at the grocery storeshe talks herself into buying things she shouldn't saying she will work it off. she knows in reality this is very unlikely to happen, reviewed strategies to keep problematic foods out of the house. She is doing fine on metformin, no problems, does think it helps her feel full faster so not eatingquite as much as she normally would Assessment and Plan: Obesity Starting Weight: 228 Today's weight: 228 Last 5 weight values: Wt Readings from Last 5 Encounters: 07/20/21 103.4 kg (228 lb) 06/21/21 100.7 kg (222 lb) 06/07/21 103.8 kg (228 lb 12.8 oz) 10/05/16 (!) 106.2 kg (234 lb 1.6 oz) Goals Addressed This Visit's Progress ??? meal timing/food choices Not on track ?? Meal timing: consider eating within [...] daily. -great job with this ??? movement Not on track ?? Exercise goal is 150 min a week, just do some walking, even [address] to start ?? Recommend resistance training 3 times a week -can use therabands ??? Nutrition - 06/21/21 Not on track Nutrition Goals: ??? Establish exercise routine - goal of 150 minutes per week of aerobic exercise (treadmill, walking outside); resistance bands daily (alternate between upper and lower body) ??? Increase protein at breakfast and lunch - plain trinidadian yogurt, with fruit, 1 tsp ground flaxseed, unsweetened coconut flakes, nuts/seeds; vegetables with peanut butter/doshi dip/trinidadian yogurt dips/hard boiled egg/slice of deli meat/cheese stick; fruits with nuts/nut butter/cheese/1/2 cup lowfat cottage cheese/trinidadian yogurt ??? Establish bedtime routine - dim lights, eliminate screens 30-60 minutes before sleep, set your brain up for sleep (meditation, journaling, gratitude journal, breathing exercises, stretching, soothing music, etc) ??? sleep On track ?? Follow up with sleep, do sleep study. Goal 7 hours of sleep nightly. ?? Recommend consistent sleep and wake times, avoid electronics within one hour of sleep time INTERVAL HISTORY / PROGRESS TOWARD GOALS: [x] I reviewed past / interim records including notes and labs [facility] [place] Followup Responses 07/09/2021 URICA - Readiness Score - WEL-SF Total Scores 41 PHQ-2 SubScore 2 (Brief screen negative) GAD2 Subscore 4 (Full MADY-7 indicated) MADY 7 Total Scores 8 (Mild Anxiety) PROMIS 10 Physical Scores 29.6 PROMIS 10 Mental Scores 43.5 Total REAP-S Scores Incomplete TFEQ - Uncontrolled Eating (UE) 77.77 TFEQ-Cognitive Restraint (CR) 55.55 TFEQ-Emotional Eating 94.44 Food Insecurity Score - Worried food would run out before we got money to buy more - Food didnt last; no money to get more - Patient started on new medications: Metformin 1000mg twice a day, has noticed she gets ricardo faster New medical conditions: no Recent Hospitalizations: no Daily eating Patterns: Completely off track, after initial visit was doing well. Was eating at 12 and 5 for about 2 weeks then just quit 24 hour Diet Recall: Breakfast:banana Snack: cheese puffs, pork rinds, pint of wanda and conner's Lunch: ham wrap with ruvalcaba Snack: grapes, chex mix Dinner: Snacks: Drinks: iced coffee (with sweetener) Alcohol : What Letter Grade (A-F) Patient gave self for following behavior change: Stopping Eating after dinner: did well for a couple weeks, now snacking at night Decreasing Processed foods: as above 150 minutes of weekly Movement: no Resistance training 2 days a week: no Taking Medications consistently: yes Consistent bedtimes: Somewhat Sleeping: Wakes often, sleep consult pending Since you were last seen at [facility] [place], are you having any of the following; new changes are bolded: REVIEW OF SYSTEMS: see above HPI for additional pertinent +/- findings Constitutional: Appetite, Tired during the day. HEENT: Visual changes. Dry mouth. Change in taste -again reviewed risk of topamax with glaucoma andrenal calculi, she will review with prescriber. CV: Chest pain or discomfort, palpitations. Increased blood pressure or pulse. Feeling short of breath when lying flat RESP: Shortness of breath at rest, cough, wheezing. Shortness of breath with exercise GI: Nausea, vomiting, diarrhea, constipation, abdominal pain : Pain with urination, blood in urine, kidney stones If female: control method- s/p hysterectomy Musculoskeletal: joint swelling, joint pain Integumentary: Rash or skin breakdown. Bruising. Psychiatric: Anxiety, depression, thoughts of hurting yourself or someone else. Psychosis Neurological: Headaches, dizziness, tingling arms/legs, restlessness, insomnia, tremor VITAL SIGNS: Ht 163 cm (5' 4.17) Wt 103.4 kg (228 lb) BMI 38.93 kg/m?? PHYSICAL EXAM: Gen: Leandra Wilks is a pleasant engaged, appropriate, 41 year old male who appears stated age, NAD. Neuro: Alert and oriented Psych: NL affect today, engaged in the visit documented in this encounter Plan of Treatment [...] psychologist to work on eating behaviors Health Grounds Person is sending hand-outs with exercises for mindful [...] training 3 times a week -can use [employer] Nutrition - 09/26/22 Lifestyle On track(2021 10:29 [...] adult documented in this encounter Care Teams Exchange Clerk Relationship Specialty Start Date End Date Debby Puri MD [address] [place] [address] PCP - General Family Medicine 07/13/20 06/06/22 documented as of this encounter
--- OUTSIDE RECORDS SUMMARY | 2024-06-01 06:59 | XMS_ITS | Encounter Summary ---
Author Organization [facility] [place] [address] Care Team Providers Care Chemical Applicator Name Role Phone Cari Banuelos MD Primary Care Provider [phone] Encounter Details Date Type Department Care Team (Latest Contact Info) Description 01/20/2016 - 01/20/2016 11:59 PM EST Hospital [place] [id number] Corey Huizar MD [facility] OBSTETRICS [facility] [place] [address] Pain Discharge Disposition: Home Social History Tobacco [...] 1 mg Capsule hs prn 02/24/2013 06/07/2021 buPROPion (WELLBUTRIN XL) 300 mg Tablet Sustained Release 24 hr Daily 05/13/2015 06/07/2021 omeprazole (PRILOSEC) 40 mg capsule 10/27/2010 [...] STORAGE ONLY CT ABDOMEN AND PELVIS Routine 01/20/2016 12:00 AM EST Pain documented in this encounter Results * Film Library- Storage Only CT Abdomen & Pelvis (01/20/2016 12:00 AM EST) Narrative [facility] - 09/13/2016 1:21 AM EDT This exam is for storage only and is auto-finalizing. Corey Huizar MD G FILM LIBRARY ORD ERABLES Performing Organization Address City/State/[facility] Co de Phone Number [place], [place] documented in this encounter Visit Diagnoses Diagnosis Pain Generalized pain documented in this encounter Care Teams Chemical Applicator Relationship Specialty Start Date End Date Cari Banuelos MD [address] [place] [address] [address] [place] [address] PCP - General 10/10/10 07/12/20 documented as of this encounter
--- OUTSIDE RECORDS SUMMARY | 2024-06-01 06:59 | XMS_ITS | Encounter Summary ---
Author Organization [facility] Address [facility] [place] [address] Care Team Providers Care Transformer Shop Supervisor Name Role Phone Debby Puri MD Primary Care Provider [phone] Reason for Referral * Consultation (Routine) - Closed Specialty Diagnoses / Procedures Referred By Chela doyle Referred To Contact Sleep Center Diagnoses Fatigue, unspecified type Class 2 severe obesity due to excess calories with serious comorbidity and body mass index (BMI) of 39.0 to 39.9 in adult Jill Farooq APRN [facility] [address] [place] [address] [facility] Sleep Medicine [address] [place] [address] Referral ID Status Reason Start Date Expiration Date V isits Requested Visits Authorized [id number] Closed Specialty Service Requested 06/07/2021 06/07/2022 1 1 Reason for Visit * Reason Comments Establish Care WEIGHT MANAGMENT * Consultation (Routine) - Specialty Diagnoses / Procedures Referred By Chela doyle Referred To Contact Weight and Wellness Diagnoses Obesity, unspecified OBESITY, BMI 40.7 Debby Puri MD [address] [place] [address] [address] [facility] [address] [place] [address] [facility] [address] [place] [address] Referral ID Status Reason Start Date Expiration Date V isits Requested Visits Authorized [id number] Consult, Test & Treat Connection Center PCP Updated and/or Approved 07/11/2020 07/11/2021 6 6 Encounter Details Date Type Department Care Team (Late st Contact Info) Description 06/07/2021 1:00 PM EDT Office Visit Weight and Wellness at [facility] [address] [place] [id number] Jill Farooq, NATURAL SCIENCES DEPARTMENT CHAIR [facility] [place] [address] Fatigue, unspecified type; Class 2 severe obesity due to excess calories with serious comorbidity and body mass index (BMI) of 39.0 to 39.9 in adult; Insulin resistance; Pre-diabetes Social History Tobacco Use Types Packs/Day Years Used Date Smoking Tobacco: Never Smokeless Tobacco: Never Sex and Gender Information Value Date Recorded Sex Assigned at Female 10/05/2021 8:56 AM EST Gender Identity Not on file Sexual Orientation Straight 10/05/2021 8: 56 AM EST documented as of this encounter Last Filed Vital Signs Vital Sign Reading Time Taken Comments Blood Pressure 111/53 06/07/2021 12:26 PM EDT Pulse 73 06/07/2021 12:26 PM EDT Temperature - - Respiratory Rate 16 06/07/2021 12:2 6 PM EDT Oxygen Saturation 100% 06/07/2021 12: 26 PM EDT Inhaled Oxygen Concentration - - Weight 103.8 kg (228 lb 12.8 oz) 2020 12:26 PM EDT Height 163 cm (5' 4.17) 06/07/2021 12: 26 PM EDT Body Mass Index 39.06 06/07/2021 12:26 PM EDT documented in this encounter Patient Instructions * Patient Instructions* Jill Farooq, BRYANNA - 06/07/2021 1:00 PM EDT From our visit today: It was great to meet you! Below are the goals we talked about. We decided to start metformin. Metformin Titration: ALWAYS take metformin with food in your stomach, if you take it on an empty stomach you are more apt to experience side effects. If you are on a dose and are still experiencing side effects do not increase the dose until the side effects go away Week 1: 1 pill (500 mg) with evening meal Week 2: 1 pill (500 mg) to the AM meal and 1 pill (500 mg) with evening meal Week 3: 1 pill (500 mg) am, 2 pills (1000 mg) evening meal Week 4: 2 pills (1000 mg) am, 2 pills (1000 mg) evening meal Make sure you are taking a B-12 Vitamin while taking metformin, take this Vitamin in the morning with food- 500mcg Let me know if you have any questions or need anything! Goals Addressed This Visit's Progress ??? meal timing/food choices ?? Meal timing: [...] our psychologist to work on eating behaviors Medications 06/07/21 1641 Medication Sig Taking? cyclobenzaprine (Flexeril) 5 mg Tablet TAKE ONE TABLET BY MOUTH THREE TIMES A DAY NEEDED FOR BACK PAIN Yes FLUoxetine (PROzac) 20 mg Capsule Daily. Yes guanFACINE (Tenex) 1 mg Tablet TAKE ONE HALF TABLET BY MOUTH TWICE A DAY Yes ibuprofen (Advil) 600 mg Tablet ibuprofen 600 mg tablet Take 1 tablet every 6-8 hours by oral route as needed. Yes naproxen (NAPROSYN) 500 mg Tablet TAKE ONE TABLET BY MOUTH TWICE A DAY WITH FOOD NEEDED FOR PAINYes oxybutynin XL (Ditropan-XL) 5 mg Tablet Extended Rel 24 hr Daily. Yes oxyCODONE (Roxicodone) 5 mg Tablet TAKE 1 TABLET BY MOUTH THREE TIMES A DAY NEEDED FOR PAIN MAX.3 TABLETS PER DAY Yes lamoTRIgine (LAMICTAL) 100 mg Tablet Twice a day Yes topiramate (TOPAMAX) 25 mg Tablet TAKE THREE TABLETS BY MOUTH TWICE A DAY DIRECTED Yes latanoprost (XALATAN) 0.005 % Drops INSTILL 1 DROP IN EACH EYE AT BEDTIME DIRECTED Yes PROAIR HFA 90 mcg/actuation HFA Aerosol Inhaler INHALE 1 TO 2 PUFFS FOUR TIMES A DAY NEEDED WHENCOUGHING AND BEFORE EXERCISE Yes metFORMIN XR (Glucophage XR) 500 mg Tablet Sustained Release 24 hr Always take with meals: Week 1: 1 with dinner Week 2: 1 BID week 3: 1 am, 2 with dinner Week4: 2 BID documented in this encounter Progress Notes * Jill Farooq APRN - 06/07/2021 1:00 PM EDT [facility] [place] Patient Name: Leandra Wilks Date of : 1980 Age: 41 y.o. Referring provider: PCP Dear Debby Puri MD, Thank you for referring Leandra Wilks to the Weight and Wellness Center for a consultation for obesity management. I reviewed past records including notes, labs, and other evaluations as reviewed below. I have briefly summarized the visit below. I look forward to collaborating with you, and to that end, I will make medication adjustments as appropriate based on the patient's ongoing state of health. Medications that I often manage include, but are not limited to, anti-obesity meds, diabetic medications and anti-hypertensives, and any adjustments I make will be communicated to you to maintain seamless care. Thank you again for allowing the [facility] Well[facility] Center to join Leandra's [facility] team. SUMMARY OF VISIT: Leandra Wilks presented to the [facility] for a consultative visit regarding obesity management. The patient has WHO Class 2 / EOSS Stage 2 Obesity defined by a BMI of Body mass index is 39.06 kg/m??. and comorbidities: Anxiety, Back pain, Depression, GERD, Glaucoma, Insomnia, Insulin resistance/prediabetes, kidney stones, Migraine d/o and OA, et al as below. I spent a total of 80 minutes with the patient in face to face discussion/counseling regarding the diagnosis of obesity, interventions for treatment, and obesity related co-morbidities as well as charting, reviewing notes and labs, ordering medications and labs and coordinating care. OBESITY We discussed and agreed upon the pillars of obesity treatment and goal setting based upon SMART goals. Discussed that 5-10% weight loss can improve patient's co-morbidities; Goal weight loss 22 pounds over 3-6 months Pharmocotherapy: Discussion of antiobesity medications started- we decided to start metformin to target insulin resistance. Metformin Titration: ALWAYS take metformin with food in your stomach, if you take it on an empty stomach you are more apt to experience side effects. If you are on a dose and are still experiencing side effects do not increase the dose until the side effects go away Week 1: 1 pill (500 mg) with evening meal Week 2: 1 pill (500 mg) to the AM meal and 1 pill (500 mg) with evening meal Week 3: 1 pill (500 mg) am, 2 pills (1000 mg) evening meal Week 4: 2 pills (1000 mg) am, 2 pills (1000 mg) evening meal Make sure you are taking a B-12 Vitamin while taking metformin, take this Vitamin in the morning with food If possible, medications that promote weight gain should be avoided and medications that are weight-neutral or promote weight loss should be considered. Obesogenic medications: lamictal Lifestyle changes reviewed and planned: Discussion : Pillars/SMART goals Nutrition: whole food/quality diet/more plant based, lower carb diet, refer to RD for planning/education, decrease eating window. Avoid snacking, avoid drinking sugar, read labels, plan mals Activity: Deferred in depth discussion, provided Resistance bands and booklet with exercises- referred to HC for help Behavioral changes: mindful eating, meal planning Accountability: begin food log, continue regular weights Sleep: evaluation for sleep apnea, consistent bed times Stress: consider counseling regularly- referred to psychologist here for eating behaviors Referrals: [x]Nutrition [x]Health defensive secondary coach [x]Sleep medicine []Bariatric surgery []GI [x]Behavioral health []ACT group [] HLP []Research coordinator -declined CHIEF COMPLAINT: Management of excess weight HISTORY OF PRESENT ILLNESS: Weight History: [facility] Weight History 03/08/2021 What is the most you have ever weighed? 237 How old were you then? 36 How many times have you lost 10 pounds or more because you were trying to lose weight? Was it... 3 to 5 How did you try to lose weight? Ate less food, Ate fewer carbohydrates, Exercised, Skipped meals, Ate less sugar, candy, sweets, Changed eating habits (didn't eat late at night, ate several small meals a day), Ate less junk food or fast food Leandra Wilks is here today because: she is having a hard time keeping weight under control. Weight hx: Duration: started after her second in her 20s. She gained a lot of weight and was unable to lose, and continued to gain more. Impact on life: harder to breath, has asthma and makes it worse, gets winded easier Peak weight: 237 Initial weight 06/06/21: 228 Goal weight: 160 10% loss: 22 Other goals: feel better, breathe better, feel better about self, get out more Prior treatment/attempts to lose: Successful attempts in the past: walking after dinner every night, then would drink water and eat an apple, just doing that she lost 30 lbs. AOM HX: none Hx metabolic surgery: none Leandra Wilks has had gradual weight gain due to: depression, emotional eater, poor food choices Why is now the time to try again? Got really upset about getting so large, outgrowing her clothes Barriers to success: depression [facility] Importance 03/08/2021 How important is it to you to make a change to improve your health? 10 - Very Important How confident are you that you can make a change to improve your health? 7 Obesogenic medications: lamictal Obesity related co-morbidities: Past Medical History 03/08/2021 Have you had any of the following medical problems? Glaucoma, Previous abdominal surgeries, Osteoarthritis, Migraine headaches Sleep: Circadian: []night worker work []irregular sleep timings [x]Normal day/night schedule To bed: variable, sometimes to bed really early, then wakes for a couple of hours, wakes up severaltimes a night Wake up: 530am, but then goes back to sleep Frequency of awakenings at night: frequent Dx/Treated for HCUN? no [x]S [x]T []O []P [x]B []A [x]N []G: [place] Sleep Apnea 03/08/2021 Please choose the correct response to each of the following questions. Do you snore? Yes Your snoring is: Slightly louder than breathing How often do you snore? 1-2 times a week Has your snoring ever bothered other people? Don't know Has anyone noticed that you quit breathing during your sleep? Never or nearly never How often do you feel tired or fatigued after your sleep? Nearly every day During your waking time, do you feel tired, fatigued or not up to par? Nearly every day Have you ever nodded off or fallen asleep while driving a vehicle? No Do you have high blood pressure? No [place] Category I 1 (Negative) [place] Category I Result 0 (Negative) [place] Category 2 2 (Positive) [place] Category II Result 1 (Negative) [place] Category 3 0 (Negative) [place] Sleep Apnea Result 1 (Low Risk) Food Behaviors In your opinion do you eat a healthy diet? Sometimes, loves fruits and veggies, loves salads, but often orders [employer] because she doesn't want to cook. Appetite:variable, but eats to eat, not because hungry Satiety: feels full after meals Eating out of: [x]Hunger (rare) [x]Habit [x]It's time. [x]Boredom [x]Emotions Eating patterns: [x] Mindless eating [x] binge eating [x] Grazing [] skips meals [x] Night eating Eating pattern: Sometimes up at 10am, will have a huge bowl of cereal (cinnamon toast crunch) with whole milk, willhave another bowl Will drink a lot of water through the day Then plays with her dog, clean house, rest Then when bf gets home orders [employer], then lays down with bf and just plays on her phone for hours Then might get up and eat during the night, even though not hungry. Fluids: water, sweetened iced Movement: [facility]: ALBERT 03/08/2021 How many days during the past week have you performed physical activity where your heart beats faster and your breathing is harder than normal for 30 minutes or more? 2 How many days in a typical week do you perform an activity such as this? 1 Is ambulation limited most or all of the time? Yes, by shortness of breath, pain, anxiety (afraid to go out, wants to avoid people) Tolerance: she can climb a flight of stairs Purposeful exercise now? no Resistance training: [ ] times per week x [ ]minutes CV exercise: [ ] times per week x [ ] minutes Activity enjoyed in past? Walking, going to the ocean NEAT? Some, active around the house, does cleaning Stress Management: Eating, music, has been in counseling in the past, not for about a year. Was doing well so stopped counseling, but then things got difficult and she found it hard to cope with things. Excessive worry recently. Some stress with her daughter that is hard for her. Self monitoring: [] Daily or weekly weights [] Food log/marco a [] Other [x] None currently REVIEW OF SYSTEMS: 10 systems reviewed, positives as below Review of Systems Constitutional: Positive for fatigue. HENT: Negative. Eyes: Glaucoma Respiratory: Positive for shortness of breath and wheezing. Asthma Cardiovascular: Negative. Gastrointestinal: GERD Endocrine: Positive for polydipsia and polyphagia. Genitourinary: Kidney stone S/p hysterectomy Musculoskeletal: Positive for arthralgias, back pain and myalgias. Neurological: Positive for headaches. Tingling in hands and fingers Review of Systems 03/08/2021 Have you recently experienced any of the following symptoms? Blurry vision, Fatigue, Shortness of breath, Heartburn, Constipation, Abdominal pain, Joint pain, Frequent urination, Migraine headaches, Anxiety, Depression Do you have an intolerance to any of the below items? Dairy [facility] PHQ-2 03/08/2021 Over the LAST 2 WEEKS, how often have you been bothered by little interest or pleasure in doing things? Several days Over the LAST 2 WEEKS, how often have you been bothered by feeling down, depressed, or hopeless? Several days PHQ-2 Score 2 (Brief screen negative) WCCGAD2 03/08/2021 Over the LAST 2 WEEKS, how often have you been bothered by feeling nervous, anxious or on edge? More than half the days Over the LAST 2 WEEKS, how often have you been bothered by not being able to stop or control worrying? Not at all GAD2 Subscore 2 (Brief screen negative) MEDICAL HISTORY Medical and Surgical History: Reviewed. History reviewed. No pertinent past medical history. Gynecologic: using/taking reliable contraception ? S/p hysterectomy Family History: Reviewed. Family History 03/08/2021 Do any of these medical conditions run in your family? Obesity Social History: Reviewed. Lives with boyfriend and 20 year old son, on disability WWC: Alcohol 03/08/2021 How often do you have a drink containing alcohol? Never How many standard drinks containing alcohol do you have on a typical day? 0 drinks How often do you have six or more drinks on one occasion? Never VITAL SIGNS: Vitals: 06/07/21 1226 BP: 111/53 BP Location ([facility]): Right arm Patient Position: Sitting BP Cuff Sizes: Adult (25-34 cm) Pulse: 73 Resp: 16 SpO2: 100% Weight: 103.8 kg (228 lb 12.8 oz) Height: 163 cm (5' 4.17) Last 5 weight values: Wt Readings from Last 5 Encounters: 06/07/21 103.8 kg (228 lb 12.8 oz) 10/05/16 (!) 106.2 kg (234 lb 1.6 oz) PHYSICAL EXAM: Gen: 41 y.o. year old female with obesity who appears stated age. NAD. Body fat distribution- predominantly central. Appearance: appropriate, well-kempt HENT: Atruamatic, MMM, OP clear and narrow, Mallampati grade 2/4 Neck: supple and thick, no thyromegaly/thyroid nodules palpated, no buffalo hump CV: RRR, S1S2 distinct, no extra sounds or murmur Resp: Clear to auscultation all lobes, effort minimal, pattern regular Extremities: No LE edema, pulses present Gait: normal, walks into exam room unassisted Skin: + Acanthosis nigricans, Warm and dry. Integrity intact Psych: pleasant, conversant and engaged, normal affect, cognition and mood. PREVIOUS LABS AND IMAGING: Reviewed Last CBC Lab Results Component Value Date WBC 7.31 02/13/2019 RBC 4.40 02/13/2019 HGB 13.3 02/13/2019 HCT 38.3 02/13/2019 MCV 87.0 02/13/2019 MCH 30.2 02/13/2019 MCHC 34.7 02/13/2019 PLATELET 349 02/13/2019 RDWCV 13 02/13/2019 Last CMP Lab Results Component Value Date NA 139 (External Lab) 02/15/2021 K 4.0 (External Lab) 02/15/2021 CL 103 (External Lab) 02/15/2021 CO2 26 (External Lab) 02/15/2021 BUN 12 (External Lab) 02/15/2021 CREATININE 0.9 (External Lab) 02/15/2021 CALCIUM 8.8 (External Lab) 02/15/2021 ESTGFR >60 (External Lab) 02/15/2021 Lab Results Component Value Date ALT 29 (External Lab) 02/15/2021 AST 15 (External Lab) 02/15/2021 ALKPHOS 148 (External Lab) 02/15/2021 BILITOT 0.2 (External Lab) 02/15/2021 ALBUMIN 4.1 (External Lab) 02/15/2021 PROT 7.6 (External Lab) 02/15/2021 Lipid Panel Last 3 Hemoglobin A1Cs No results found for: HA1C Latest TSH No results found for: TSH No results found for: LABINSU No results found for: GLUCFASTING No results found for: FERRITIN No results found for: [id number] No results found for: 25OHVITD ASSESSMENT AND PLAN Leandra Wilks is a 41 y.o. female with uncontrolled obesity who presented to [facility] today for medical evaluation. Leandra was seen today for establish care. Diagnoses and all orders for this visit: Fatigue, unspecified type - Referral to Sleep Disorders Center - Lipid Panel (Reflex Direct LDL); Future - Hemoglobin A1c; Future - Iron and TIBC; Future - Ferritin; Future - Vitamin D, 25-Hydroxy; Future - CMP w/fasting Glucose; Future - TSH; Future - CBC (with Diff); Future - Insulin, total; Future Class 2 severe obesity due to excess calories with serious comorbidity and body mass index (BMI) of39.0 to 39.9 in adult - Referral to Sleep Disorders Center - Lipid Panel (Reflex Direct LDL); Future - Hemoglobin A1c; Future - Iron and TIBC; Future - Ferritin; Future - Vitamin D, 25-Hydroxy; Future - CMP w/fasting Glucose; Future - TSH; Future - CBC (with Diff); Future - Insulin, total; Future Insulin resistance - metFORMIN XR (Glucophage XR) 500 mg Tablet Sustained Release 24 hr; Always take with meals: Week 1: 1 with dinner Week 2: 1 BID week 3: 1 am, 2 with dinner Week4: 2 BID Pre-diabetes - metFORMIN XR (Glucophage XR) 500 mg Tablet Sustained Release 24 hr; Always take with meals: Week 1: 1 with dinner Week 2: 1 BID week 3: 1 am, 2 with dinner Week4: 2 BID Goals Addressed This Visit's Progress ??? meal timing/food choices ?? Meal timing: [...] our psychologist to work on eating behaviors Care pathway: Pathway: [facility] PATHWAY - ADULT 06/07/2021 Medication Therapy Activate Obesity Medicine Activate Return in about 4 weeks (around 07/05/2021) for LINING MARKER, CHANG hanley, psychologist, HC 2w after CHANG. I spoke with Leandra about opportunities to participate in research and to be contacted by our research press assistant and feeder. They indicated that they are: [] INTERESTED [x] NOT INTERESTED // [] NOT ADDRESSED [facility] Initial Responses 03/08/2021 URICA - Readiness Score 11 (Contemplation State) WEL-SF Total Scores 38 PHQ-2 SubScore 2 (Brief screen negative) GAD2 Subscore 2 (Brief screen negative) PROMIS 10 Physical Scores 26.7 PROMIS 10 Mental Scores 41.1 Total REAP-S Scores 24 TFEQ - Uncontrolled Eating (UE) 96.29 TFEQ-Cognitive Restraint (CR) 33.33 TFEQ-Emotional Eating 100 Food Insecurity Score 2 [place] Category I Result 0 (Negative) [place] Category II Result 1 (Negative) [place] Category III 0 (Negative) [place] Sleep Apnea Total 1 (Low Risk) Schooling Some college or technical school Importance of making a change 10 - Very Important Confidence to make change 7 Most weighed 237 Age most weighed 36 Times lost 10 lbs or more 3 to 5 Lost weight how? Ate less food, Ate fewer carbohydrates, Exercised, Skipped meals, Ate less sugar, candy, sweets, Changed eating habits (didn't eat late at night, ate several small meals a day), Ate less junk food or fast food Worried food would run out before we got money to buy more Never true Food didnt last; no money to get more Never true URICA: <8 Precontemp, 8-12 Contemp, 12+ Prep TFEQ: Look at transformed scores, average is 50, +/-2SD is sigfnif, consider referral >70 WEL-SF: Range 0-80, higher = better PROMIS Avg score = 50 REAP score 13-39, higher = more diversity in diet, better documented in this encounter Miscellaneous Notes * Addendum Note - Michelle Fisher - 06/07/2021 1:00 PM EDTAddended by: MICHELLE FISHER on: 06/07/2021 02:20 PM Modules accepted: Orders documented in this encounter Plan of Treatment Scheduled Procedures Name Priority Associated Diagnoses Date/Ti me COLONOSCOPY, DIAGNOSTIC (WRV U 3.26) Biliary stricture Screening for colon cancer Scheduled Referrals Name Type Priority Associated Diagnoses Orde r Schedule Referral to Sleep Disorders Center Outpatient Referral Routine Fatigue, unspecified type Class 2 severe obesity due to excess calories with serious comorbidity and body mass index (BMI) of 39.0 to 39.9 in adult Ordered: 06/07/2021 documented as of this encounter Goals Goal [...] psychologist to work on eating behaviors Health Floor Coverer Apprentice is sending hand-outs with exercises for mindful [...] 3 times a week -can use therabands documented as of this encounter Procedures Procedure Name Priority Date/Time Associated Diagnosis Comments CMP W/FASTING GLUCOSE Routine 06/07/2021 2:25 PM EDT Fatigue, unspecified type Class 2 severe obesity due to excess calories with serious comorbidity and body mass index (BMI) of 39.0 to 39.9 in adult HEMOGRAM Routine 06/07/2021 2:25 PM EDT Fatigue, unspecified type Class 2 severe obesity due to excess calories with serious comorbidity and body mass index (BMI) of 39.0 to 39.9 in adult DIFFERENTIAL, AUTOMATED Routine 06/07/2021 2:25 PM EDT Fatigue, unspecified type Class 2 severe obesity due to excess calories with serious comorbidity and body mass index (BMI) of 39.0 to 39.9 in adult HC IRON BINDING CAPACITY Routine 06/07/2021 2:25 PM EDT Fatigue, unspecified type Class 2 severe obesity due to excess calories with serious comorbidity and body mass index (BMI) of 39.0 to 39.9 in adult HC VITAMIN D TOTAL-25 HYDROXY Routine 06/07/2021 2:25 PM EDT Fatigue, unspecified type Class 2 severe obesity due to excess calories with serious comorbidity and body mass index (BMI) of 39.0 to 39.9 in adult HC VENIPUNCTURE Routine 06/07/2021 2:25 PM EDT Fatigue, unspecified type Class 2 severe obesity due to excess calories with serious comorbidity and body mass index (BMI) of 39.0 to 39.9 in adult HC CBC,PLT & AUTO DIFF Routine 06/07/2021 2:25 PM EDT Fatigue, unspecified type Class 2 severe obesity due to excess calories with serious comorbidity and body mass index (BMI) of 39.0 to 39.9 in adult HC THYROID STIMULATING HORMONE, SERUM Routine 06/07/2021 2:25 PM EDT Fatigue, unspecified type Class 2 severe obesity due to excess calories with serious comorbidity and body mass index (BMI) of 39.0 to 39.9 in adult HC HEMOGLOBIN A1C Routine 06/07/2021 2:2 5 PM EDT Fatigue, unspecified type Class 2 severe obesity due to excess calories with serious comorbidity and body mass index (BMI) of 39.0 to 39.9 in adult HC FERRITIN, SERUM Routine 06/07/2021 2: 25 PM EDT Fatigue, unspecified type Class 2 severe obesity due to excess calories with serious comorbidity and body mass index (BMI) of 39.0 to 39.9 in adult LIPID PANEL (REFLEX DIRECT LDL) Routine 06/07/2021 2:25 PM EDT Fatigue, unspecified type Class 2 severe obesity due to excess calories with serious comorbidity and body mass index (BMI) of 39.0 to 39.9 in adult documented in this encounter Results * (ABNORMAL) Differential, Automated (06/07/2021 2:25 PM EDT) Neutrophils % 69.0 % [facility] Neutr Abs (ANC) 7.04(H) 1.70 - 6.10 x10(3)/mc L [facility] Lymphocytes % 23.0 % [facility] Lymphocytes Abs 2.4 0.9 - 3.2 x10(3)/mc L [facility] Monocytes % 3.8 % [facility] Monocyte Abs 0.4 0.3 - 0.9 x10(3)/mc L [facility] Eosinophils % 2.5 % [facility] Eosinophils Abs 0.2 0.0 - 0.4 x10(3)/[facility] Basophils % 0.5 % [facility] Basophils Abs 0.0 0.0 - 0.1 x10(3)/[facility] Immature Gran % 1.20 % [facility] Comment: Immature granulocytes(IG's)percentage and absolute count will include metamyelocytes, myelocytes, and promyelocytes. Blood smears from CBCs yielding IG's will be scanned manually for concordance. If this scan disagrees with the automated IG or if promyelocytes are noted, a manual differential will be performed. Reshma Gran Abs 0.12(H) 0.00 - 0.04 x10(3)/[facility] Blood 06/07/2021 2:25 PM EDT 06/07/2021 3:52 PM EDT Narrative Resulting Agency Comment Spec In Lab Jill Farooq NAT[employer] SCI[employer] DEPARTMENT CHAIR HEMATOLOGY ORDERABLE S [facility] [place] [address] * (ABNORMAL) Hemogram (06/07/2021 2:25 PM EDT) WBC 10.2(H) 4.0 - 9.5 x10(3)/[facility] RBC 4.43 4.00 - 5.21 x10(6)/[facility] Hemoglobin 12.9 11.7 - 15.5 gm/dL [facility] Hematocrit 38.7 35.7 - 45.8 % [facility] MCV 87.4 82.6 - 94.4 fL [facility] MCH 29.1 27.1 - 32.0 pg [facility] MCHC 33.3 31.7 - 35.0 gm/dL [facility] Platelets 395(H) 145 - 357 x10(3)/[facility] RDWSD 43.0 37.0 - 46.0 [facility] RDWCV 13.3 11.5 - 14.1 % [facility] MPV 9.4 7.6 - 12.9 [facility] nRBC % Auto 0.0 % [facility] nRBC Abs Auto 0.000 0.000 - 0.000 x10(3)/[facility] Blood 06/07/2021 2:25 PM EDT 06/07/2021 3:52 PM EDT Narrative Resulting Agency Comment Spec In Lab Jill Farooq NATURAL SCIENCES DEPARTMENT CHAIR HEMATOLOGY ORDERABLE S Performing Organization Address City/[facility]/ZIP Co de Phone Number [facility] [place] [address] * Insulin, total (06/07/2021 2:25 PM EDT) Insulin Lvl 10.8 2.6 - 24.9 mcunit/mL [facility] Blood 06/07/2021 2:25 PM EDT 06/07/2021 6:37 PM EDT Narrative Resulting Agency Comment Spec In Lab Jill Grajedaoie NAT[employer] SCI[employer] DEPARTMENT CHAIR CHEMISTRY ORDERABLES Performing Organization Address City/[facility]/ZIP Co de Phone Number [facility] [place] [address] * TSH (06/07/2021 2:25 PM EDT) TSH 1.47 0.27 - 4.20 mcIU/mL [facility] Comment: Reference Interval (mcIU/mL): Females: ??First Trimester: 0.23-3.88 ??Second Trimester: 0.22-3.90 ??Third Trimester: 0.44-4.66 Blood 06/07/2021 2:25 PM EDT 06/07/2021 4:00 PM EDT Narrative Resulting Agency Comment Spec In Lab Jill Farooq BRYANNA CHEMISTRY ORDERABLES [facility] [place] [address] * (ABNORMAL) CMP w/fasting Glucose (06/07/2021 2:25 PM EDT) Glucose Fasting 84 65 - 99 mg/dL [facility] Comment: ?Fasting* Glucose Interpretive Criteria Normal ?65-99 mg/dL Impaired Fasting glucose ?100-125 mg/dL Consistent with Diabetes Mellitus ? >or= 126 mg/dL *Fasting is defined as no caloric intake for at least 8 hours In the absence of unequivocal hyperglycemia a plasma glucose value of >or= 126 mg/dL should be repeated on a subsequent day. Diagnosis and Classification of Diabetes Mellitus, Position Statement from the [place] [employer]. ??Diabetes Care, Volume 33, Supplement 1, Nov 2009 BUN 15 8 - 18 mg/dL [facility] Creatinine 0.81 0.70 - 1.20 mg/dL [facility] Sodium 137 135 - 145 mmol/L [facility] Potassium 3.7 3.5 - 5.0 mmol/L [facility] Comment: Please note: ??Patients with WBC >100,000 may have falsely elevated Potassium levels. ??For accurate Potassium quantification in these patients send serum separator tube (gold top) for subsequent determinations. ??Contact the Clinical Chemistry Laboratory if there are any questions. Chloride 105 98 - 107 mmol/L [facility] CO2 20(L) 22 - 31 mmol/L [facility] Anion Gap 12 5 - 15 mmol/L [facility] Calcium 9.0 8.5 - 10.5 mg/dL [facility] Total Protein 8.0 6.1 - 8.0 gm/dL [facility] Albumin 4.9 3.2 - 5.2 gm/dL [facility] AST 16 0 - 30 unit/L [facility] ALT 28 0 - 30 unit/L [facility] Alk Phos 137(H) 35 - 105 unit/L [facility] Total Bilirubin 0.4 0.2 - 1.3 mg/dL [facility] Estimated GFR 89 >=60 mL/min/1. 73 m?? [facility] Comment: This patient? s estimated glomerular filtration rate (eGFR) is between 89 mL/min/1.73 m2 (patients with less muscle mass) and 103 mL/min/1.73 m2 (patients with more muscle mass) as determined by the CKD-EPI equation. Assessment of eGFR is not appropriate when creatinine concentrations are rapidly changing. For clinical decisions where creatinine clearance will affect therapy, a 24-hour urine creatinine clearance may be advised. Assignment of CKD stage 1 - 5 for patients with an eGFR near the transition point between stages may be based on clinical assessment of muscle mass and symptoms in addition to eGFR. Blood 06/07/2021 2:25 PM EDT 06/07/2021 4:00 PM EDT Narrative Resulting Agency Comment Spec In Lab Jill Farooq APRN CHEMISTRY ORDERABLES [facility] [place] [address] * Vitamin D, 25-Hydroxy (06/07/2021 2:25 PM EDT) 25-OH Vit D Total 24 21 - 100 ng/mL [facility] 25-OH Vit D Interp Insufficient [facility] Blood 06/07/2021 2:25 PM EDT 06/07/2021 6:37 PM EDT Narrative Resulting Agency Comment Spec In Lab Jill Farooq APRN CHEMISTRY ORDERABLES [facility] [place] [address] * (ABNORMAL) Ferritin (06/07/2021 2:25 PM EDT) [facility] Ferritin 172(H) 15 - 150 ng/mL [facility] Comment: Pediatric reference ranges not verified at [facility], interpret with caution. Reference ranges for females greater than 50 years of age approach values for men, i.e., 30-400 ng/mL. Blood 06/07/2021 2:25 PM EDT 06/07/2021 6:37 PM EDT Narrative Resulting Agency Comment Spec In Lab Jill Carmine Farooq APRN CHEMISTRY ORDERABLES Performing Organization Address [facility] Co de Phone Number [facility] [place] [address] * Iron and TIBC (06/07/2021 2:25 PM EDT) [facility] Iron 85 30 - 150 mcg/dL [facility] TIBC 350 250 - 450 mcg/dL [facility] Iron Saturation 24 20 - 50 % [facility] Blood 06/07/2021 2:25 PM EDT 06/07/2021 4:00 PM EDT Narrative Resulting Agency Comment Spec In Lab Jill Carmine Oseasjennifer ORTIZN CHEMISTRY ORDERABLES Performing Organization Address City/[facility]/ZIP Co de Phone Number [facility] [place] [address] * Hemoglobin A1c (06/07/2021 2:25 PM EDT) [facility] Hemoglobin A1C 4.8 4.3 - 5.6 % [facility] Comment: Reference Range: 4.3 - 5.6% 5.7 - 6.4% - Increased Risk of Developing Diabetes Mellitus >= 6.5% - Consistent with diagnosis of Diabetes Mellitus In the absence of hyperglycemia (i.e. plasma glucose > 200 mg/dL) or classic symptoms of hyperglycemia a repeat measurement of HbA1c should be performed on a separate sample to confirm the diagnosis. Diagnosis and Classification of Diabetes Mellitus, Diabetes Care 2013; 36: Suppl. 1, S67-74 Est Avg Gluc 90 mg/dL [facility] Comment: eAG equivalents for HbA1c percentages: HbA1c(%) ?eAG(mg/dL) 6.0 ?126 6.5 ?140 7.0 ?154 7.5 ?169 8.0 ?183 8.5 ?197 9.0 ?212 9.5 ?226 10.0 ? 240 Limitations: The eAG calculation has not been validated on women, individuals below 18 years old and above 70 years old, and individuals with hemoglobinopathies. Additional resources are available on the ADA website. Coleman AVINA, Rosa Elena J, Jean R, et al. ??Translating the A1C assay into estimated average glucose values. ??Diabetes Care 2008:31(8):1455-5527. Blood 06/07/2021 2:25 PM EDT 06/07/2021 3:41 PM EDT Narrative Resulting Agency Comment Spec In Lab Jill Farooq APRN CHEMISTRY ORDERABLES [facility] [place] [address] * Lipid Panel (Reflex Direct LDL) (06/07/2021 2:25 PM EDT) Chol, Total 173 mg/dL [facility] Comment: Lower Risk: <200 mg/dL Average Risk: 200-239 mg/dL Higher Risk: >px=784 mg/dL Triglycerides 97 mg/dL [facility] Comment: Average Risk/Lower Risk: <150 mg/dL Borderline High Risk: 150-199 mg/dL High Risk: 200-499 mg/dL Very High Risk: >pn=365 mg/dL HDL 56 mg/dL [facility] Comment: Males: ?? Higher Risk: <40 mg/dL Females: ?? Higher Risk: <50 mg/dL LDL Cholesterol 98 mg/dL [facility] Comment: Lowest Risk: <100 mg/dL Lower Risk: 100-129 mg/dL Borderline High Risk: 130-159 mg/dL High Risk: 160-189 mg/dL Very High Risk: >ma=095 mg/dL Chol/HDL Ratio 3.1 ratio [facility] Lipid Interpretation See Note [facility] Comment: Lipid management should be guided by a patient? s ASCVD risk, goals and preferences. ACC/AHA Guidelines recommend high intensity statin if clinical ASCVD or LDL greater than or equal to 190 mg/dL. http://[employer].com/VRT-FDT-Hlqdwxkkv Adults aged 40-75 with LDL 70-189 mg/dL should have their 10 year ASCVD risk estimated with the ACC/AHA ASCVD risk box estimator http://tools.acc.org/SWMJL-Uihk-Yzjpyztwk/ Statin should be discussed if risk greater [...] Agency Comment Spec In Lab Jill Farooq APRN CHEMISTRY ORDERABLES [facility] [place] [address] documented in this encounter Visit Diagnoses Diagnosis Fatigue, unspecified type Class 2 severe obesity due to excess calories with serious comorbidity and body mass index (BMI) of 39.0 to 39.9 in adult Insulin resistance Dysmetabolic Syndrome X Pre-diabetes Other abnormal glucose documented in this encounter Care Teams Transformer Shop Supervisor Relationship Specialty Start Date End Date Debby Puri MD [address] [place] [address] PCP - General Family Medicine 07/13/20 06/06/22 documented as of this encounter
--- OUTSIDE RECORDS SUMMARY | 2024-06-01 06:59 | XMS_ITS | Encounter Summary ---
Author Organization [facility] Address [facility] [place] [address] Care Team Providers Care Hourly Sign Language Interpreter Name Role Phone Sree High APRN Primary Care Provider [phone] Encounter Details Date Type Department Care Team (Late st Contact Info) Description 10/27/2007 Orders [place] [address] Hector Cramer MD [facility] [place] [address] Social History Tobacco Use Types Packs/Day Years Used Date Smoking Tobacco: Never Assessed PENDING SALE TO [facility] Inpatient Questions Answer Date Recorded Does [...] On track(2021 10:28 AM EST) Jill Colmenares, ARCHITECTURAL INTERN Note: Mindfulness/deep breathing practice to reduce cortisol -try for at least 10 minutes a day -try an ap such as headspace I have referred you to our psychologist to work on eating behaviors Health Operations Controller is sending hand-outs with exercises for mindful eating, The Pause/STOP and Urge surfing. Patient will review and try implementing some behaviors before we meet again. movement Lifestyle On track(2021 10:29 AM EST) Jill Colmenares, ARCHITECTURAL INTERN Note: Exercise goal is 150 min a week, just do some walking, even [address] to start Recommend resistance training 3 times a week -can use [employer] Nutrition - 09/26/22 Lifestyle On track(2021 10:29 [...] Associated Diagnosis Comments SURGICAL PATHOLOGY REPORT Routine 10/29/2007 11:09 AM EST documented in this encounter Results * Surgical Pathology Report (10/29/2007 11:09 AM EST) Pathologist [facility] Surgical Pathology Report [id number] ? Location: [facility]; [facility]; B The signing pathologist has (i) examined the relevant preparation(s) for the specimen(s) and (ii) rendered or confirmed the diagnosis(es). . ?Pathology Surgical Pathology Final Report Clinical Information Specimen Submitted: A - Gallbladder: abdomen Clinical Diagnosis: Choledocholithias is, cholelithiasis. Gross Description Labeled/Fixative: ? Gallbladder, fresh. Qty/Size/Weight: ?Single, 8.6 x 3.0 x 1.1 cm. Tissue Description: ?? Partially deflated gallbladder. ?? External surface: ??Serosa is haywood-red and smooth. ??Adventitia is haywood, ?green, and ragged. ?? Lumen contents: ?Approximately 10 cc to 20 cc of brown-haywood, viscous ?fluid and numerous (greater than twenty) small, bosselated, haywood-white choleliths, ranging from 0.2 cm to 0.6 cm. ??Choleliths are especially prominent at the neck of the gallbladder. ?? Mucosa: ?Haywood-red and velvety. ?? Wall: ?Averages 0.3 cm in thickness, ?? Duct: ?Approximately 0.5 cm attached. Sections/Processi ng: ??(R1) ??aje/EM Microscopic Description Slides reviewed, microscopic description not recorded. Diagnosis Gallbladder, cholecystectomy: ?? Chronic cholecystitis and cholelithiasis. CR-0 10/31/07 LEOBARDO 11/02/07 Verified by: ? Dayday Batres MD ?Pathologist ?(Electronic Signature) The attending pathologist whose signature appears on this report has reviewed all diagnostic slides and has edited the gross and/or microscopic portion of the report in rendering the final pathologic diagnosis. SHIRA MARK 10/29/2007 11:0 9 AM EST Hector Cramer MD PATHOLOGY/CYTOLOGY ORDERABLES [facility] documented in this encounter Visit Diagnoses Not on filedocumented in this encounter Care Teams Hourly Sign Language Interpreter Relationship Specialty Start Date End Date Sree High, ARCHITECTURAL INTERN [address] [place] [address] PCP - General Family Medicine 12/19/22 documented as of this encounter
--- OUTSIDE RECORDS SUMMARY | 2024-06-01 06:59 | XMS_ITS | Encounter Summary ---
Author Organization [facility] [place] [address] Care Team Providers Care Lead Software Qa Engineer Name Role Phone Unavailable Primary Care Provider Unavailabl e Encounter Details Date Type Department Care Team (Latest Contact Info) Description 12/22/2009 - 12/22/2009 11:59 PM EST Hospital Encounter [place] [address] Corey Huizar MD [facility] DR OBSTETRICS & [place] [address] Pain Discharge Disposition: Home Social History Tobacco [...] FILM LIBRARY STORAGE ONLY ULTRASOUND STUDY Routine 12/22/2009 12:00 AM EST Pain documented in this encounter Results * Film Library- Storage Only Ultrasound Study (12/22/2009 12:00 AM EST) Narrative [facility] - 09/13/2016 1:16 AM EDT This exam is for storage only and is auto-finalizing. Corey Huizar MD G FILM LIBRARY ORD ERABLES Performing Organization Address City/State/[facility] Co de Phone Number [place], [place] documented in this encounter Visit Diagnoses Diagnosis Pain Generalized pain documented in this encounter
--- OUTSIDE RECORDS SUMMARY | 2024-06-01 06:59 | XMS_ITS | Encounter Summary ---
Author Organization [facility] [place] [address] Care Team Providers Care Serologist Name Role Phone Cari Banuelos MD Primary Care Provider Encounter Details Date Type Department Care Team (Latest Contact Info) Description 07/22/2013 - 07/22/2013 11:59 PM EDT Hospital Encounter [place] [phone] Corey Huizar MD [facility] OBSTETRICS & [place] [address] Pain Discharge Disposition: Home Social History Tobacco [...] FILM LIBRARY STORAGE ONLY ULTRASOUND STUDY Routine 07/22/2013 12:00 AM EDT Pain documented in this encounter Results * Film Library- Storage Only Ultrasound Study (07/22/2013 12:00 AM EDT) Narrative [facility] - 09/13/2016 1:17 AM EDT This exam is for storage only and is auto-finalizing. Corey Huizar MD IMG FILM LIBRARY ORD ERABLES Performing Organization Address City/State/[facility] Co de Phone Number [place], [place] documented in this encounter Visit Diagnoses Diagnosis Pain Generalized pain documented in this encounter Care Teams Serologist Relationship Specialty Start Date End Date Cari Banuelos MD [address] [place] [address] PCP - General 10/10/10 07/12/20 documented as of this encounter
--- OUTSIDE RECORDS SUMMARY | 2024-06-01 06:59 | XMS_ITS | Encounter Summary ---
Author Organization [facility] Address [facility] [place] [address] Care Team Providers Care Cloth Tester Name Role Phone Debby Puri MD Primary Care Provider Encounter Details Date Type Department Care Team (Late st Contact Info) Description 09/08/2021 Telephone Sleep Center at [facility] [address] [place] [phone] Chirsta Resendiz Social History Tobacco Use Types Packs/Day Years Used Date Smoking Tobacco: Never Smokeless Tobacco: Never Sex and Gender Information Value Date Recorded Sex Assigned at Female 10/05/2021 8:56 AM EST Gender Identity Not on file Sexual Orientation Straight 10/05/2021 8: 56 AM EST documented as of this encounter Miscellaneous Notes * Telephone Encounter - Christa Prabhakar - 09/08/2021 2:47 PM EDT Failed first HSAT, needs to be rescheduled for a second HSAT. documented in this encounter Plan of Treatment [...] On track(2021 10:28 AM EST) Jill Colmenares, INWARD TOLL OPERATOR Note: Mindfulness/deep breathing practice to reduce cortisol -try for at least 10 minutes a day -try an ap such as headspace I have referred you to our psychologist to work on eating behaviors Health Dermatology Nurse Practitioner is sending hand-outs with exercises for mindful eating, The Pause/STOP and Urge surfing. Patient will review and try implementing some behaviors before we meet again. movement Lifestyle On track(2021 10:29 AM EST) Jill Colmenares, INWARD TOLL OPERATOR Note: Exercise goal is 150 min [...] on filedocumented in this encounter Care Teams Cloth Tester Relationship Specialty Start Date End Date Debby Puri MD [address] [place] [address] PCP - General Family Medicine 07/13/20 06/06/22 documented as of this encounter
--- OUTSIDE RECORDS SUMMARY | 2024-06-01 06:59 | XMS_ITS | Encounter Summary ---
Author Organization [facility] [place] [address] Care Team Providers Care Genetics Teacher Name Role Phone Debby Puri MD Primary Care Provider Encounter Details Date Type Department Care Team ([facility] st Contact Info) Description 12/18/2020 Notes Only Weight and Wellness at [address] [phone] Alejandra Mendez, RN Social History Tobacco Use Types Packs/Day Years Used Date Smoking Tobacco: Never Smokeless Tobacco: Never Sex and Gender Information Value Date Recorded Sex Assigned at Female 10/05/2021 8:56 AM EST Gender Identity Not on file Sexual Orientation Straight 10/05/2021 8: 56 AM EST documented as of this encounter Progress Notes * Alejandra Mendez - 12/18/2020 2:33 PM EST [facility] New Patient Referral Chart Prep Note Leandra Wilks 1980 Referring Provider: PCP [] [facility] referral (Epic) [x] External Referral (scanned document) Referral documents available [x] Referral [x] Most recent PCP note or care summary - date: 11/24/20 [x] Labs [] in Epic [x] Scanned / [x] Entered into EPIC [] Imaging [] in Epic [] Scanned / Type and date: Requested today: Chart Prep [x] Height [x] Added to sticky [x] Weight [x] Added to sticky documented in this encounter Plan of Treatment Scheduled Procedures Name Priority Associated Diagnoses Date/Ti me COLONOSCOPY, DIAGNOSTIC (WRV U 3.26) Biliary stricture Screening for colon cancer documented as of this encounter Visit Diagnoses Not on filedocumented in this encounter Care Teams Genetics Teacher Relationship Specialty Start Date End Date Debby Puri MD [address] [place] [address] PCP - General Family Medicine 07/13/20 06/06/22 documented as of this encounter
--- OUTSIDE RECORDS SUMMARY | 2024-06-01 06:59 | XMS_ITS | Encounter Summary ---
Author Organization [facility] [place] [address] Care Team Providers Care Senior Power Scheduler Name Role Phone Cari Banuelos MD Primary Care Provider [phone] Encounter Details Date Type Department Care Team (Latest Contact Info) Description 09/21/2015 - 09/21/2015 11:59 PM EST Hospital Encounter [place] [phone] Corey Huizar MD [facility] DR OBSTETRICS & [place] [address] Pain Discharge Disposition: Home Social History Tobacco [...] FILM LIBRARY STORAGE ONLY ULTRASOUND STUDY Routine 09/21/2015 12:00 AM EST Pain documented in this encounter Results * Film Library- Storage Only Ultrasound Study (09/21/2015 12:00 AM EST) Narrative [facility] - 09/13/2016 1:20 AM EDT This exam is for storage only and is auto-finalizing. Corey Huizar MD [facility] [place] [place] FILM LIBRARY ORD ERABLES Performing Organization Address City/State/[facility] Co de Phone Number [place], [place] documented in this encounter Visit Diagnoses Diagnosis Pain Generalized pain documented in this encounter Care Teams Senior Power Scheduler Relationship Specialty Start Date End Date Cari Banuelos MD [address] [place] [address] [address] [place] [address] PCP - General 10/10/10 07/12/20 documented as of this encounter
--- OUTSIDE RECORDS SUMMARY | 2024-06-01 06:59 | XMS_ITS | Encounter Summary ---
Author Organization [facility] [place] [address] Care Team Providers Care Board Worker Name Role Phone Debby Puri MD Primary Care Provider Encounter Details Date Type Department Care Team ([facility] Contact Info) Description 07/19/2021 Telephone Weight and Wellness at [address] [phone] Taylor Padilla, MAX Social History Tobacco Use Types Packs/Day Years Used Date Smoking Tobacco: Never Smokeless Tobacco: Never Sex and Gender Information Value Date Recorded Sex Assigned at Female 10/05/2021 8:56 AM EST Gender Identity Not on file Sexual Orientation Straight 10/05/2021 8: 56 AM EST documented as of this encounter Miscellaneous Notes * Telephone Encounter - Taylor Padilla CMA - 07/19/2021 2:12 PM EDT [facility] [place] Pre-telemedicine Visit Phone Note Leandra Wilks 1980 [x] Patient was not reached: [] No working phone [] Not able to leave message [x] Message left withvisit info/call [phone] [] ZOOM link sent if no MyDH [] Patient was reached and the following information was reviewed/obtained per protocol: [] Confirmed patient name and date of [] Confirmed address where patient will be at time of call Patient is in [] [place] [] [place] [] Other: [address] [facility] [address] [] Confirmed best number to be reached is: [] Reminded to sign up for MyD (sent invite) [] Reminded to complete MyDH survey if message received to do so [] Confirmed ZOOM downloaded and functioning [] Confirmed visit contact information updated (text/email for sending ZOOM link) [] ZOOM appointment link sent if no MyDH REVIEW: [] Review of patient medications completed Have you started on any NEW medications? [] No [] Yes: [] Confirmed preferred pharmacy: Documented self reported vital signs from [] None available [] Home [] PCP [] outside PCP Date: [] Weight [] Height [] Blood pressure [] Pulse Any recent labs/studies [] No [] Yes: [] Labs/vitals requested [] labs/vitals scanned (secretary office clerk) and entered (RN) [] Requested 24 hour diet recall [] Other information or concerns: Interested in [facility] QI project [] No [] Yes [remind me task to cesar] FOR FOLLOW-UP VISITS: from mailed intake worksheet Interval History ??? Any NEW medical conditions? [] No [] Yes: ??? Any recent hospitalizations? [] No [] Yes: documented in this encounter [...] On track(2021 10:28 AM EST) Jill Colmenares, DRILL RUNNER Note: Mindfulness/deep breathing practice to reduce cortisol -try for at least 10 minutes a day -try an ap such as headspace I have referred you to our psychologist to work on eating behaviors Health Tin Pot Operator is sending hand-outs with exercises for mindful eating, The Pause/STOP and Urge surfing. Patient will review and try implementing some behaviors before we meet again. movement Lifestyle On track(2021 10:29 AM EST) Jill Colmenares, DRILL RUNNER Note: Exercise goal is 150 min a [...] on filedocumented in this encounter Care Teams Board Worker Relationship Specialty Start Date End Date Debby Puri MD [address] [facility] [address] [place] [address] PCP - General Family Medicine 07/13/20 06/06/22 documented as of this encounter
--- OUTSIDE RECORDS SUMMARY | 2024-06-01 06:59 | XMS_ITS | Encounter Summary ---
Author Organization [facility] [place] [place] [address] Care Team Providers Care Sealer Operator Name Role Phone Cari Banuelos MD Primary Care Provider [phone] Encounter Details Date Type Department Care Team (Latest Contact Info) Description 07/03/2015 - 07/03/2015 11:59 PM EDT Hospital Encounter [place] [phone] Corey Huizar MD [facility] [place] [address] Pain Discharge Disposition: Home Social History Tobacco [...] STORAGE ONLY CT ABDOMEN AND PELVIS Routine 07/03/2015 12:00 AM EDT Pain documented in this encounter Results * Film Library- Storage Only CT Abdomen & Pelvis (07/03/2015 12:00 AM EDT) Narrative [facility] - 09/13/2016 1:19 AM EDT This exam is for storage only and is auto-finalizing. Corey Huizar MD IMG FILM LIBRARY ORD ERABLES Performing Organization Address City/State/[facility] Co de Phone Number [place], [place] documented in this encounter Visit Diagnoses Diagnosis Pain Generalized pain documented in this encounter Care Teams Sealer Operator Relationship Specialty Start Date End Date Cari Banuelos MD [address] [place] [address] PCP - General 10/10/10 07/12/20 documented as of this encounter
--- OUTSIDE RECORDS SUMMARY | 2024-06-01 06:59 | XMS_ITS | Encounter Summary ---
Author Organization [facility] [place] [address] Care Team Providers Care Color Maker Dyer Name Role Phone Cari Banuelos MD Primary Care Provider [phone] Reason for Visit * Reason Onset Date Comments Prior Authorization 10/10/2016 Encounter Details Date Type Department Care Team ([facility] st Contact Info) Description 10/10/2016 Telephone Obstetrics [place] [address] Mildred Rodriguez Prior Authorization Social History Tobacco Use Types Packs/Day Years Used Date Smoking Tobacco: Never Smokeless Tobacco: Never Sex and Gender Information Value Date Recorded Sex Assigned at Female 10/05/2021 8:56 AM EST Gender Identity Not on file Sexual Orientation Straight 10/05/2021 8: 56 AM EST documented as of this encounter Miscellaneous Notes * Telephone Encounter - Mildred Rodriguez RN - 10/10/2016 2:26 PM EST Addendum: per [place] Medicaid, no prior authorization needed for Lupron Depot. * Telephone Encounter - Mildred Rodriguez RN - 10/10/2016 11:05 AM EST Prior Authorization sent to [place] Medicaid for Lupron Depot 3.75mg IM monthly for 6 moths, awaiting approval. documented in this encounter Plan of Treatment Scheduled Procedures Name Priority Associated Diagnoses Date/Ti me COLONOSCOPY, DIAGNOSTIC (WRV U 3.26) Biliary stricture Screening for colon cancer documented as of this encounter Visit Diagnoses Not on filedocumented in this encounter Care Teams Color Maker Dyer Relationship Specialty Start Date End Date Cari Banuelos MD [address] [place] [address] PCP - General 10/10/10 07/12/20 documented as of this encounter
--- OUTSIDE RECORDS SUMMARY | 2024-06-01 06:59 | XMS_ITS | Encounter Summary ---
Author Organization [facility] [place] [address] Care Team Providers Care Paper Mill Manager Name Role Phone Cari Banuelos MD Primary Care Provider [phone] Encounter Details Date Type Department Care Team (Late st Contact Info) Description 10/27/2010 11:00 AM EST [place] [address] Ninoska Ybarra MD [facility] [place] [address] Discharge Disposition: Home Social History Tobacco Use [...] on filedocumented in this encounter Care Teams Paper Mill Manager Relationship Specialty Start Date End Date Cari Banuelos MD [address] [place] [address] PCP - General 10/10/10 07/12/20 documented as of this encounter
--- OUTSIDE RECORDS SUMMARY | 2024-06-01 06:59 | XMS_ITS | Encounter Summary ---
Author Organization [facility] [place] [address] Care Team Providers Care Slitting Machine Operator Name Role Phone Debby Puri MD Primary Care Provider Encounter Details Date Type Department Care Team ([facility] Contact Info) Description 08/23/2021 11:00 AM EDT TH Visit (TeleHealth) Weight and Wellness at [address] [phone] Hailee Martínez RD Adult BMI 38.0-38.9 kg/sq [...] * Patient Instructions* Hailee Martínez RD - 08/23/2021 11:00 AM EDT Nutrition Goals: ??? Establish exercise routine - goal of 150 minutes per week of aerobic exercise (treadmill, walking outside); resistance bands daily (alternate between upper and lower body) ??? Increase protein at breakfast and lunch - plain macanese yogurt, with fruit, 1 tsp ground flaxseed, unsweetened coconut flakes, nuts/seeds; vegetables with peanut butter/doshi dip/macanese yogurt dips/hard boiled egg/slice of deli meat/cheese stick; fruits with nuts/nut butter/cheese/1/2 cup lowfat cottage cheese/macanese yogurt ??? No snacks after dinner - replace eating with alternate boredom buster behavior (ex: reading a book, resistance bands, going for a walk, etc) Continued Goals: ??? Establish bedtime routine - dim lights, eliminate screens 30-60 minutes before sleep, set your brain up for sleep (meditation, journaling, gratitude journal, breathing exercises, stretching, soothing music, etc) documented in this encounter Progress Notes * Hailee Martínez RD - 08/23/2021 11:00 AM EDT Nutrition Intervention for Weight Management RD visit Assessment/Nutrition Diagnosis: Pt at increased nutritional risk related to excessive calorie intake and sub optimal physical activity resulting in overweight/obesity as evidenced by BMI and diet recall Telehealth / telephone visit conducted while patient was at home at the following address: [address] [place] [id number] Food Trackers: not currently Weight Today: Initial Nutrition Visit (06/21/21): 222 pounds Vitals 08/22/2021 Height (Samoan) 64 Height (Metric) 162.6 cm Weight (Samoan) 222 lbs Weight (Metric) 100.699 kg BMI (Calculated) 38.1 kg/m2 Activity: treadmill making weird noises; walking everyday - 20-25 minutes; resistance bands not using; Typical Dietary Intake: 10 B: frozen fruit, plain yogurt, 1 tsp honey, muffin, banana 1/2pm L: skipping; salad OR veggies fruit; feel like dessert after lunch - yogurt, popsicle, or something 6pm D: cold sandwich turkey, cheese, tomato, lettuce, water 7:30 S: saltines Typical Beverages: water, juice, black tea Appetite/Hunger: evening eating because of boredom Previous Nutrition Goals: Goals ??? meal timing/food choices ?? Meal [...] week -can use therabands ??? Nutrition - 08/23/21 Nutrition Goals: ??? Establish exercise routine - goal of 150 minutes per week of aerobic exercise (treadmill, walking outside); resistance bands daily (alternate between upper and lower body) ??? Increase protein at breakfast and lunch - plain macanese yogurt, with fruit, 1 tsp ground flaxseed, unsweetened coconut flakes, nuts/seeds; vegetables with peanut butter/doshi dip/macanese yogurt dips/hard boiled egg/slice of deli meat/cheese stick; fruits with nuts/nut butter/cheese/1/2 cup lowfat cottage cheese/macanese yogurt ??? No snacks after dinner - replace eating with alternate boredom buster behavior (ex: reading a book, resistance bands, going for a walk, etc) Continued Goals: ??? Establish bedtime routine - dim lights, eliminate screens 30-60 minutes before sleep, set your brain up for sleep (meditation, journaling, gratitude journal, breathing exercises, stretching, soothing music, etc) ??? sleep ?? Follow up with [...] to work on eating behaviors ?? Health Profiling Machine Set Up Operator Tool is sending hand-outs with exercises for mindful eating, The Pause/STOP and Urge surfing. Patient will review and try implementing some behaviors before we meet again. Interview: watching what is eaten, trying to focus on portions; increased sweet carbohydrate intake, limited protein intake; limited resistance exercise Barriers to Change: None identified today Nutrition Goals: (1) add resistance bands back into exercise routine (2) no after dinner snacking (3) protein at meals Assessing Calorie Goals at this time No Monitor/Evaluate: Will follow up in 2 months Aim for 5-10% weight loss from ABW x 3-6 months from initial visit Thank you Hailee Martínez MS RDN LD 30 minutes were spent in visit today, including contact with patient, chart review, and documentation documented in this encounter Plan of Treatment Scheduled Procedures Name Priority Associated Diagnoses Date/Ti al COLONOSCOPY, DIAGNOSTIC (WRV U 3.26) Biliary stricture [...] psychologist to work on eating behaviors Health Profiling Machine Set Up Operator Tool is sending hand-outs with exercises for mindful [...] adult documented in this encounter Care Teams Slitting Machine Operator Relationship Specialty Start Date End Date Debby Puri MD [address] [place] [address] PCP - General Family Medicine 07/13/20 06/06/22 documented as of this encounter
--- OUTSIDE RECORDS SUMMARY | 2024-06-01 06:59 | XMS_ITS | Encounter Summary ---
Author Organization [facility] [place] [address] Care Team Providers Care Records Management Assistant Name Role Phone Debby Puri MD Primary Care Provider Encounter Details Date Type Department Care Team ([facility] st Contact Info) Description 03/02/2021 External Results Weight and Wellness at [address] [phone] Alejandra Mendez, RN Social History Tobacco Use [...] Procedure Name Priority Date/Time Associated Diagnosis Comments [facility] EXTERNAL RESULT PANEL Routine 02/15/2021 documented in this encounter Results * (ABNORMAL) [facility] External Results (02/15/2021) BUN 12(Externa l Lab) Creatinine 0.9(Pharmacy Tech Customer Service al Lab) Sodium 139(Pharmacy Tech Customer Service al Lab) Potassium 4.0(Pharmacy Tech Customer Service al Lab) Chloride 103(Pharmacy Tech Customer Service al Lab) CO2 26(Externa l Lab) Anion Gap 10(Externa l Lab) Calcium 8.8(Pharmacy Tech Customer Service al Lab) Total Protein 7.6(Pharmacy Tech Customer Service al Lab) Albumin 4.1(Pharmacy Tech Customer Service al Lab) AST 15(Externa l Lab) ALT 29(Externa l Lab) Alk Phos 148(Pharmacy Tech Customer Service al Lab) Total Bilirubin 0.2(Pharmacy Tech Customer Service al Lab) Estimated GFR >60(Pharmacy Tech Customer Service al Lab) Glucose Lvl 92(Externa l Lab) 02/15/2021 Historical Provider POINT OF CARE ANIYA T ORDERABLES documented in this encounter Visit Diagnoses Not on filedocumented in this encounter Care Teams Records Management Assistant Relationship Specialty Start Date End Date Debby Puri MD [address] [place] [address] PCP - General Family Medicine 07/13/20 06/06/22 documented as of this encounter
--- OUTSIDE RECORDS SUMMARY | 2024-06-01 06:59 | XMS_ITS | Encounter Summary ---
Author Organization [facility] Address [address] [facility] [place] [address] Care Team Providers Care Cofounder Name Role Phone Debby Puri MD Primary Care Provider Encounter Details Date Type Department Care Team ([facility] st Contact Info) Description 06/02/2021 Notes Only [facility] at [facility] [address] [place] [phone] Alejandra Mendez, RN Social History Tobacco Use Types Packs/Day Years Used Date Smoking Tobacco: Never Smokeless Tobacco: Never Sex and Gender Information Value Date Recorded Sex Assigned at Female 10/05/2021 8:56 AM EST Gender Identity Not on file Sexual Orientation Straight 10/05/2021 8: 56 AM EST documented as of this encounter Progress Notes * Alejandra Mendez - 06/02/2021 10:00 AM EDT [facility] New Patient Referral Chart Prep Note Leandra Wilks 1980 Referring Provider: PCP [] [facility] referral (Epic) [x] External Referral (scanned document) Referral documents available [x] Referral [x] Most recent PCP note or care summary - date: 04/07/21 [x] Labs [] in Epic [x] Scanned [...] on filedocumented in this encounter Care Teams Cofounder Relationship Specialty Start Date End Date Debby Puri MD [address] [place] [address] PCP - General Family Medicine 07/13/20 06/06/22 documented as of this encounter
--- OUTSIDE RECORDS SUMMARY | 2024-06-01 06:59 | XMS_ITS | Encounter Summary ---
[place] [address] Care Team Providers Care Material Disposition Inspector Name Role Phone Debby Puri MD Primary Care Provider Reason for Visit * Reason Onset Date Comments Appointment 08/08/2021 Encounter Details Date Type Department Care Team ([facility] st Contact Info) Description 08/08/2021 Telephone Weight and Wellness at [address] [phone] Crystal Gross Appointment Social History Tobacco Use Types Packs/Day Years Used Date Smoking Tobacco: Never Smokeless Tobacco: Never Sex and Gender Information Value Date Recorded Sex Assigned at Female 10/05/2021 8:56 AM EST Gender Identity Not on file Sexual Orientation Straight 10/05/2021 8: 56 AM EST documented as of this encounter Miscellaneous Notes * Telephone Encounter - Crystal Gross - 08/08/2021 1:49 PM EDT Return in about 2 months (around 08/21/2021) for RD (Hailee), Zoom or TOV Return in about 8 weeks (around 09/14/2021) HR INTERN, 30 minute follow up, HLP documented in this encounter Plan of Treatment [...] psychologist to work on eating behaviors Health Tank Insulator Rubber is sending hand-outs with exercises for mindful [...] on filedocumented in this encounter Care Teams Material Disposition Inspector Relationship Specialty Start Date End Date Debby Puri MD [address] [place] [address] PCP - General Family Medicine 07/13/20 06/06/22 documented as of this encounter
--- OUTSIDE RECORDS SUMMARY | 2024-06-01 06:59 | XMS_ITS | Encounter Summary ---
Author Organization [facility] [place] [address] Care Team Providers Care Building Services Engineer Name Role Phone Cari Banuelos MD Primary Care Provider [phone] Reason for Referral * Consultation (Routine) - Closed Specialty Diagnoses / Procedures Referred By Contac t Referred To Contact Urology Diagnoses Chronic pelvic pain in female Corey Huizar MD [facility] DR OBSTETRICS & [place] [address] [facility] [place] [address] Referral ID Status Reason Start Date Expiration Date V isits Requested Visits Authorized [id number] Closed Consult, Test & Treat 10/05/2016 10/05/2017 1 1 Reason for Visit * Reason Comments Gynecologic Exam Establish Care * Consultation (Routine) - Closed Specialty Diagnoses / Procedures Referred By Contac t Referred To Contact Obstetrics and Gynecology Diagnoses cysts of both ovaries Cari Banuelos MD [address] [place] [address] [facility] Tension Worker [address] [place] [address] Referral ID Status Reason Start Date Expiration Date V isits Requested Visits Authorized [id number] Closed Evaluate and Treat [facility] 09/04/2016 09/04/2017 1 1 Encounter Details Date Type Department Care Team (Late st Contact Info) Description 10/05/2016 3:30 PM EST Office Visit Obstetrics [place] [address] Corey Huizar MD [facility] DR OBSTETRICS & [place] [address] Chronic pelvic pain in female Social History Tobacco Use Types Packs/Day Years Used Date Smoking Tobacco: Never Smokeless Tobacco: Never Sex and Gender Information Value Date Recorded Sex Assigned at Female 10/05/2021 8:56 AM EST Gender Identity Not on file Sexual Orientation Straight 10/05/2021 8: 56 AM EST documented as of this encounter Last Filed Vital Signs Vital Sign Reading Time Taken Comments Blood Pressure 127/67 10/05/2016 3:30 PM EST Pulse 91 10/05/2016 3:30 PM EST Temperature 36.9 ??C (98.4 ??F) 10/05/2016 3:30 PM ES T Respiratory Rate - - Oxygen Saturation 98% 10/05/2016 3:30 PM EST Inhaled Oxygen Concentration - - Weight 106.2 kg (234 lb 1.6 oz) 10/05/2016 3:30 PM EST Height 161.5 cm (5' 3.58) 10/05/2016 3:30 PM ES T Body Mass Index 40.71 10/05/2016 3:30 PM EST documented in this encounter Patient Instructions * Patient Instructions* Corey Huizar MD - 10/05/2016 3:30 PM EST As we discussed, there are several things that can cause the type of pain you are experiencing, including problems with the bowels (like IBS), bladder (something called interstitial cystitis) and ovaries (cysts or endometriosis). Before doing surgery (with its risks and long-term consequences), it is important to rule out other causes and be absolutely sure that the ovaries are to blame. I would recommend the followin. A trial of a medication called Lupron to temporarily turn off the ovarian hormones, suppress endometriosis and stop cysts from forming- if this works, you have a much higher chance of cure. This medication requires insurance preauthorization, so expect a call from my office to set this up 2. A consultation with a urologist to evaluate you for interstitial cystitis 3. I would like to see you back after the urology consultation and a month on Lupron documented in this encounter Progress Notes * Corey Huizar MD - 10/05/2016 3:30 PM EST CC: Chronic pelvic pain HPI: Leandra Wilks is a 36-year-old 4 para 4 kindly referred by Cari Banuelos MD for evaluation of chronic pelvic pain. Leandra describes a many year history of daily lower abdominal and pelvic pain which she describes as crampy, 8 out of 10 at its worst, colicky at times. Patient describes minimal relief with anti-inflammatories and Tylenol. She takes oxycodone 1-2 times per day. Pain is worse when she strains to have a bowel movement, worse when she is constipated, worse when her bladder is full and with urination. Leandra underwent total vaginal hysterectomy in [facility] in 2014, which did not relieve her symptoms of pelvic pain. She states that she has a history of endometriosis, although this is not clearly documented in her medical record. Her past medical history, active medical problems, medications, and allergies have been reviewed inher transfer records and are up-to-date in our system. Past surgical history is notable for the following: Trigger finger release, diagnostic laparoscopy in 2013, laparoscopic tubal sterilization, laparoscopic cholecystectomy, laparoscopic appendectomy and, most recently, total vaginal hysterectomy in 2014. Social history: The patient is but not sexually active for the past 3-4 months due to pain.She is a nonsmoker. She does not drink alcohol. She denies use of marijuana or other illicit substances. Review of systems: As per the history of present illness. The patient describes chronic constipation. She describes chronic dysuria. She denies chest pain, shortness of breath, dyspnea on exertion. Her appetite is good. Her weight has been stable. Denies hematuria. She denies abnormal vaginal discharge and vaginal bleeding. Schedule history: The patient had 4 term spontaneous vaginal deliveries after reportedly uncomplicated pregnancies. Her children range in age from 12-19. Patient has been on OCPs and Provera in the past for contraception. She reports that her menstrual cycles were relatively regular and normal. Shedenies any known history of dysplasia. She denies any history of sexual transmitted infections. BP 127/67 (BP Location (NBP): Right arm, Patient Position: Sitting, BP Cuff Sizes: Large Adult (32-43 cm)) Pulse 91 Temp 36.9 ??C (98.4 ??F) (Oral) Ht 161.5 cm (5' 3.58) Wt (!) 106.2 kg (234 lb 1.6 oz) LMP Comment: October 2014 SpO2 98% BMI 40.71 kg/m2 Gen. patient is an obese but otherwise pleasant female whose affect is somewhat flat but is in no acute distress. Neck is supple without thyromegaly. Lungs are clear to auscultation bilaterally. Heart is regular without murmur or gallop. Abdomen is obese, soft, nondistended. There is mildto moderate tenderness to deep palpation in the suprapubic region across the bilateral lower quadrants without rebound, guarding, or masses. : External genitalia unremarkable. Vaginal vault is wellsupported. Cuff is intact without erythema. There is no abnormal discharge. Bimanual examination isnotable for mild bilateral levator tenderness. There is significant tenderness along the urethra and at the base of the bladder. There is bilateral lower quadrant tenderness without palpable masses. Please warm dry without clubbing cyanosis or edema. PUF questionnaire was administered: Symptom core=12, Bother score= 12, for a total score of 24. Rkyjv-nl-tyak urinalysis is unremarkable. Impression: Chronic pelvic pain, unrelieved following hysterectomy. Suspect multifactorial origin, with interstitial cystitis as a likely contributing factor. Leandra seems convinced that surgical removal of her ovaries would be curative of her pain symptoms. I do not share her optimism. I strongly recommended a consultation with urology to further evaluate for interstitial cystitis, as well as a trial of Depo-Lupron for short-term ovarian suppression. Meka request records from her local rn clinical documentation to see if her subjective history of endometriosis can be verified. This was a 45 minute visit, 35 minutes of which were spent in discussion and counseling. documented in this encounter Plan of Treatment Scheduled Procedures Name Priority Associated Diagnoses Date/Ti me COLONOSCOPY, DIAGNOSTIC (WRV U 3.26) Biliary stricture Screening for colon cancer Scheduled Referrals Name Type Priority Associated Diagnoses Orde r Schedule Referral to Urology Outpatient Referral Routine Chronic pelvic pain in female Ordered: 10/05/2016 documented as of this encounter Procedures Procedure Name Priority Date/Time Associated Diagnosis Comments POCT URINE DIPSTICK Routine 10/05/2016 Chronic pelvic pain in female documented in this encounter Results * POCT urine dipstick (10/05/2016) POC Sp [place] 1.015 1.002 - 1.030 POC pH, UA 8 5.0 - 8.5 POC Leuk, UA trace Negative - Negative POC Nitrite, UA neg Negative - Negative POC Protein, UA neg Negative - Negative mg/dL POC Glucose, UA norm Normal - Normal mg/dL POC Ketone, UA neg Negative - Negative POC Urobil, UA norm 0.2 - 1.0 mg/dL POC Bili, UA neg Negative - Negative POC Blood, UA neg Negative - Negative leni/uL Corey Huizar MD POINT OF CARE TEST O RDERABLES documented in this encounter Visit Diagnoses Diagnosis Chronic pelvic pain in female Unspecified symptom associated with female genital organs documented in this encounter Care Teams Building Services Engineer Relationship Specialty Start Date End Date Cari Banuelos MD [address] [place] [address] PCP - General 10/10/10 07/12/20 documented as of this encounter
--- OUTSIDE RECORDS SUMMARY | 2024-06-01 06:59 | XMS_ITS | Encounter Summary ---
Author Organization [facility] [place] [address] Care Team Providers Care Retail Store Associate Name Role Phone Debby Puri MD Primary Care Provider Encounter Details Date Type Department Care Team ([facility] st Contact Info) Description 08/04/2021 Telephone Weight and Wellness at [address] [phone] Russ Henry Social History Tobacco Use Types [...] Lifestyle On track(2021 10:29 AM EST) Jlil Colmenares, BRYANNA Note: Follow up with sleep, [...] to work on eating behaviors Health Machine Shop Inspector is sending hand-outs with exercises for mindful eating, The Pause/STOP and Urge surfing. Patient will review and try implementing some behaviors before we meet again. movement Lifestyle On track(2021 10:29 AM EST) No Jill Farooq, DIRECTOR OF STRATEGIC SALES Note: Exercise goal is 150 min a [...] filedocumented in this encounter Care Teams Retail Store Associate Relationship Specialty Start Date End Date Debby Puri MD [address] [place] [address] [address] [place] [address] PCP - General Family Medicine 07/13/20 06/06/22 documented as of this encounter
--- OUTSIDE RECORDS SUMMARY | 2024-06-01 06:59 | XMS_ITS | Encounter Summary ---
Author Organization [facility] [place] [address] Care Team Providers Care Pharmaceutical Compounding Supervisor Name Role Phone Debby Puri MD Primary Care Provider [phone] Encounter Details Date Type Department Care Team ([facility] Contact Info) Description 03/02/2021 Notes Only Weight and Wellness at [address] [phone] Alejandra Mendez, RN Social History Tobacco Use Types Packs/Day Years Used Date Smoking Tobacco: Never Smokeless Tobacco: Never Sex and Gender Information Value Date Recorded Sex Assigned at Female 10/05/2021 8:56 AM EST Gender Identity Not on file Sexual Orientation Straight 10/05/2021 8: 56 AM EST documented as of this encounter Progress Notes * Alejandra Mendez - 03/02/2021 2:55 PM EDT [facility] New Patient Referral Chart Prep Note Leandra Wilks 1980 Referring Provider: PCP [] [facility] referral (Epic) [x] External Referral (scanned document) Referral documents available [x] Referral [x] Most recent PCP note or care summary - date: 02/08/21 [x] Labs [] in Epic [x] Scanned [...] on filedocumented in this encounter Care Teams Pharmaceutical Compounding Supervisor Relationship Specialty Start Date End Date Debby Puri MD [address] [place] [address] PCP - General Family Medicine 07/13/20 06/06/22 documented as of this encounter
--- OUTSIDE RECORDS SUMMARY | 2024-06-01 06:59 | XMS_ITS | Encounter Summary ---
Author Organization [facility] [place] [address] Care Team Providers Care Sports Book Board Attendant Name Role Phone Debby Puri MD Primary Care Provider Encounter Details Date Type Department Care Team ([facility] st Contact Info) Description 12/18/2020 External Results Weight and Wellness at [address] [phone] Alejandra Mendez, RN Social History Tobacco Use [...] Procedure Name Priority Date/Time Associated Diagnosis Comments [facility] EXTERNAL RESULT PANEL Routine 02/13/2019 CBC (WITH DIFF) Routine 02/13/2019 documented in this encounter Results * (ABNORMAL) [facility] External Results (02/13/2019) BUN 15(Externa l Lab) Creatinine 0.81(Exter nal Lab) Sodium 138(Pantographer al Lab) Potassium 3.6(Pantographer al Lab) Chloride 103(Pantographer al Lab) CO2 23(Externa l Lab) Anion Gap 12(Externa l Lab) Calcium 8.4(Pantographer al Lab) Total Protein 7.6(Pantographer al Lab) Albumin 4(External Lab) AST 18(Externa l Lab) ALT 20(Externa l Lab) Alk Phos 117(Pantographer al Lab) Total Bilirubin 0.6(Pantographer al Lab) Estimated GFR >60(Pantographer al Lab) Glucose Lvl 78(Externa l Lab) Lipase 165(Pantographer al Lab) 02/13/2019 Historical Provider POINT OF CARE ANIYA T ORDERABLES * CBC (with Diff) (02/13/2019) WBC 7.31 RBC 4.40 Hemoglobin 13.3 Hematocrit 38.3 MCV 87.0 MCH 30.2 MCHC 34.7 RDWCV 13 Platelets 349 MPV 9.3 Neutrophils % 76.5 Lymphocytes % 16.7 Monocytes % 3.8 Eosinophil % 2.6 Basophils % 0.1 Immature Gran % 0.3 Neutr Abs (ANC) 5.59 Lymphocyte Abs 1.22 Monocyte Abs 0.28 Eosinophil Abs 0.19 Basophil Abs 0.01 Blood 02/13/2019 Historical Provider HEMATOLOGY ORDERA BLES documented in this encounter Visit Diagnoses Not on filedocumented in this encounter Care Teams Sports Book Board Attendant Relationship Specialty Start Date End Date Debby Puri MD [address] [place] [address] PCP - General Family Medicine 07/13/20 06/06/22 documented as of this encounter
[2024-06-01 07:17] VITALS: BP 109/78; PULSE 59; RESP 16; TEMP 36.3; O2SAT 99
[2024-06-01] MEDS: Lactated Ringers 1,000 ML 80 ML IV (07:35)
[2024-06-01 07:37] VITALS: BMI 21.7
[2024-06-01 08:55] VITALS: BP 100/54; PULSE 70; RESP 16; TEMP 36.4; O2SAT 100
--- NOTE | 2024-06-01 09:03 | W.ANESPOSTOP ---
Postoperative Evaluation Date, Time and Location Date Performed: 06/01/24 Time Performed: 09:03 Patient Location: Day Surgery Unit Vital Signs Most Recent Imported Vital Signs: Most Recent Vital Signs Temp Pulse Resp BP Pulse Ox 36.4 C L 70 16 100/54 L 100 06/01/24 08:55 06/01/24 08:55 06/01/24 08:55 06/01/24 08:55 06/01/24 08:55 Pain Score Most Recent Pain Score: Most Recent Pain Score Pain Level 0 06/01/24 08:55 Assessment Mental Status: Awake (Alert & Oriented to Patient Baseline) Airway and Respiratory Function: Patent airway with normal (patient baseline) respiratory exam Cardiovascular Function: Hemodynamically Stable Hydration Status: Adequately Hydrated Nausea & Vomiting: No Nausea or Vomiting Pain: Pt. Denies Any Pain Peripheral Nerve Block: Patient did not receive a nerve block
[2024-06-01 09:18] VITALS: BP 98/64; PULSE 71; RESP 16; TEMP 36; O2SAT 100
== END 2024-06-01 10:02 | disposition home or self-care (01) ==
LOC: SUR 06:49
PROVIDERS: PCP Nurse Practitioner Family; Visit Provider Surgery
PROC: 0DJD8ZZ Inspection of Lower Intestinal Tract, Via Natural or Artificial Opening Endoscopic (ICD-10-PCS; CPT 45378; principal; 2024-06-01 08:15)
DX: Z12.11 Encounter for screening for malignant neoplasm of colon (principal); G47.33 Obstructive sleep apnea (adult) (pediatric)
CPT/HCPCS: 45378; J2704

== ENCOUNTER 2024-09-02 16:04 | Outpatient (CLI) | payer MEDICAID, SELFPAY ==
[2024-09-02 16:06] LABS: Abs Immature Grans 0.01 10^3/uL (0.0-0.06); Absolute Basophil Count 0.03 10^3/uL (0.0-0.2); Absolute Eosinophil Count 0.16 10^3/uL (0.0-0.7); Absolute Monocyte Count 0.19 10^3/uL (0.1-0.8); Absolute Neutrophil Count 2.84 10^3/uL (1.2-6.7); Basophils % 0.6 %; Eosinophils % 3.2 %; HCT 32.8 % (36.0-46.0); HGB 11.5 g/dL (11.2-15.7); Immature Grans % 0.2 %; Lymphocytes % 34.5 %; MCH 30.9 pg (27.0-33.0); MCHC 35.1 % (32.0-36.0); MCV 88 fL (80-95); Monocytes % 3.9 %; Neutrophils % 57.6 %; Platelet Count 260 10^3/uL (130-400); RBC 3.72 10^6/uL (3.93-5.22); RDW 12.1 % (11.7-14.6); RDW-SD 39.3 fL; WBC 4.93 10^3/uL (4.4-10.8)
--- OUTSIDE RECORDS SUMMARY | 2024-09-02 16:10 | XMS_ITS | Encounter Summary ---
Author Organization [facility] Address [address] [place] [address] Care Team Providers Care Profile Saw Setup Operator Name Role Phone Debby Puri MD Primary Care Provider [phone] Encounter Details Date Type Department Care Team (Late st Contact Info) Description 12/26/2016 Results Only [facility] [phone] Jesika Monreal MD [address] [place] [address] Social History Tobacco Use Types [...] ? LEANDRA VELOZ ? Accession #: ? [id number] ? : ? 1980 (Age: 36) ??F [...] Negrete 12/31/2016 4:51 PM End of Report [facility] 12/26/2016 11:0 5 EST 12/27/2016 11:05 EST Jesika Monreal MD PATHOLOGY ORDER FUNMI [facility] [address] [place] [address] documented in this encounter Visit Diagnoses Not on filedocumented in this encounter Care Teams Profile Saw Setup Operator Relationship Specialty Start Date End Date Debby Puri MD [address] [place] [phone] PCP - General 09/11/13 documented as of this encounter
--- OUTSIDE RECORDS SUMMARY | 2024-09-02 16:10 | XMS_ITS | Encounter Summary ---
Author Organization [facility] Address [address] [place] [address] Care Team Providers Care Management Nurse Rn Name Role Phone Debby Puri MD Primary Care Provider [phone] Encounter Details Date Type Department Care Team (Latest Contact Info) Description 12/26/2016 14:01 EST - 12/26/2016 23:59 EST Hospital Encounter [address] [address] Unknown, Provider, Discharge Disposition: Home or Self Care Social History Tobacco Use Types Packs/Day Years Used Date Smoking Tobacco: Never Assessed Sex and Gender Information Value Date Recorded Sex Assigned at Not on file Gender Identity Not on file Sexual Orientation Not on file documented as of this encounter Discharge Disposition Disposition Code Departure Means Destination Home or Self Fci documented in this encounter Plan of Treatment Not on file documented as of this encounter Visit Diagnoses Not on filedocumented in this encounter Care Teams Management Nurse Rn Relationship Specialty Start Date End Date Debby Puri MD [address] [place] [address] [address] [place] [address] PCP - General 09/11/13 documented as of this encounter
--- OUTSIDE RECORDS SUMMARY | 2024-09-02 16:10 | XMS_ITS | Clinical Summary ---
Author Organization [facility] Address [address] [place] [address] Care Team Providers Care Jack Spinner Name Role Phone Debby Puri MD Primary Care Provider Social History Tobacco Use Types Packs/Day [...] C Antibody Negative Negative 12/29/2021 9:53 EST [facility] Blood VENOUS BLOOD / Unknown 12/28/2021 9:10 EST 12/28/2021 17:07 EST Provider Outr Resulting Lab CHEMISTRY & BLOOD GAS ORDERABLES [facility] [address] [place] [address] from Last 3 Months or Most Recently Relevant to Health Maintenance Care Teams Jack Spinner Relationship Specialty Start Date End Date Debby Puri MD [address] [place] [address] [address] [place] [phone] PCP - General 09/11/13
--- OUTSIDE RECORDS SUMMARY | 2024-09-02 16:10 | XMS_ITS | Encounter Summary ---
Author Organization [facility] Address [address] [place] [address] Care Team Providers Care Edge Cutting Machine Operator Name Role Phone Lamar Puri MD Primary Care Provider [phone] Encounter Details Date Type Department Care Team (Late st Contact Info) Description 05/12/2015 Results Only [facility] [phone] Trev Urbano MD [facility] [place], [place] [id number] Social History Tobacco Use Types Packs/Day Years [...] ? LEANDRA VELOZ ? Accession #: ? [id number] ? : ? 1980 (Age: 35) ??F [...] is mcdonough-pink with a herringbone pattern. ? Optical Lens Manufacturing Tech sections are submitted as follows: BLOCK MARCANO 1- ??anterior cervix 2- ??posterior cervix 3- ??anterior endomyometrium, full thickness 4- ??posterior endomyometrium, full thickness 5- ??posterior serosa with focal area of adhesion Maru Geena 05/13/2015 10:31 AM End of Report [facility] 05/12/2015 21:1 7 EDT 05/12/2015 21:17 EDT Trev Urbano MD PATHOLOGY ORDERABLES [facility] [address] [place] [address] documented in this encounter Visit Diagnoses Not on filedocumented in this encounter Care Teams Edge Cutting Machine Operator Relationship Specialty Start Date End Date Lamar Puri MD [address] [place] [phone] PCP - General 09/11/13 documented as of this encounter
--- OUTSIDE RECORDS SUMMARY | 2024-09-02 16:10 | XMS_ITS | Encounter Summary ---
Author Organization [facility] Address [address] [place] [address] Care Team Providers Care Foundry Metallurgist Name Role Phone Debby Puri MD Primary Care Provider [phone] Encounter Details Date Type Department Care Team (Latest Contact Info) Description 05/12/2015 9:36 EDT - 05/12/2015 23:59 EDT Hospital Encounter [address] [address] Unknown, Provider, Discharge Disposition: Home or Self [...] on filedocumented in this encounter Care Teams Foundry Metallurgist Relationship Specialty Start Date End Date Debby Puri MD [address] [place] [address] [address] [place] [address] PCP - General 09/11/13 documented as of this encounter
--- OUTSIDE RECORDS SUMMARY | 2024-09-02 16:10 | XMS_ITS | Encounter Summary ---
Author Organization [facility] Address [address] [place] [address] Care Team Providers Care Shop Steward Name Role Phone Debby Puri MD Primary Care Provider [phone] Encounter Details Date Type Department Care Team (Late st Contact Info) Description 07/29/2020 Lab Requisition [facility] Pathology & Laboratory Medicine - [address] [address] Outr Resulting Lab, Provider Social History Tobacco [...] rt-PCR Result NEGATIVE Negative 07/30/2020 15:36 EDT [facility] Comment: 2019-novel Coronavirus (2019-nCoV) [...] in accordance with CLIA regulations, [employer] (CAP) guidelines (Feb 04, 2020), and FDA guidance (Jan 16, 2020). This test is only for use under the Food and Drug Administration's Emergency Use Authorization. Swab ENTIRE NASOPHARYNX / Unknown 07/29/2020 9:47 EDT 07/29/2020 16:13 EDT Provider Outr Resulting Lab MICROBIOLOGY - GENERAL ORDERABLES [facility] [place] * COVID-19 TESTING (07/29/2020 9:47 EDT) COVID-19 rt-PCR Result NEGATIVE Negative 07/30/2020 18:22 EDT [facility] Comment: 2019-novel Coronavirus (2019-nCoV) not [...] in accordance with CLIA regulations, [employer] (CAP) guidelines (Feb 04, 2020), and FDA guidance (Jan 16, 2020). This test is only for use under the Food and Drug Administration's Emergency Use Authorization. Performing Lab [facility] 07/30/2020 18:22 EDT [facility] Swab 07/29/2020 9:47 EDT 07/29/2020 16:13 EDT Provider Outr Resulting Lab MICROBIOLOGY - GENERAL ORDERABLES [facility] [address] [place] [address] [facility] [place] documented in this encounter Visit Diagnoses Not on filedocumented in this encounter Care Teams Shop Steward Relationship Specialty Start Date End Date Debby Puri MD [address] [place] [phone] PCP - General 09/11/13 documented as of this encounter
--- OUTSIDE RECORDS SUMMARY | 2024-09-02 16:10 | XMS_ITS | Encounter Summary ---
Author Organization [facility] Address [address] [place] [address] Care Team Providers Care Driver/Sales Workers Name Role Phone Gatito Crawford MD Primary Care Provider Unavail able Encounter Details Date Type Department Care Team (Late st Contact Info) Description 09/08/2013 Results Only [facility] Laboratory Services - [facility] ([facility] [address] [place], [place] [id number] Moo Painting MD [address] [place] [address] [place] [address] Social History Tobacco Use Types [...] ? LEANDRA VELOZ ? Accession #: ? [id number] ? : ? 1980 (Age: 33) ??F [...] reagents' performance characteristics have been determined by [facility]. ??This laboratory is certified under the [...] sections and 2 tips, reverse en face. Pinky Hernandez 09/09/2013 10:30 AM End of Report BUDDY SANTANA 09/08/2013 9:54 EDT 09/09/2013 9:54 EDT Moo Painting MD PATHOLOGY ORDERABLE S Performing Organization Address City/State/[facility] Co de Phone Number BUDDY SANTANA [address] [place] [address] documented in this encounter Visit Diagnoses Not on filedocumented in this encounter Care Teams Driver/Sales Workers Relationship Specialty Start Date End Date Gatito Crawford MD PCP - General 05/09/09 09/10/13 documented as of this encounter
--- OUTSIDE RECORDS SUMMARY | 2024-09-02 16:10 | XMS_ITS | Encounter Summary ---
Author Organization [facility] Address [address] [place] [address] Care Team Providers Care Cut Off Saw Grader Name Role Phone Debby Puri MD Primary Care Provider +1 [phone] Encounter Details Date Type Department Care Team (Late st Contact Info) Description 12/28/2021 Lab Requisition [facility] Pathology & Laboratory Medicine - [facility] [address] [place], [place] [address] Outr Resulting Lab, Provider Social History Tobacco [...] C Antibody Negative Negative 12/29/2021 9:53 EST [facility] Blood VENOUS BLOOD / Unknown 12/28/2021 9:10 EST 12/28/2021 17:07 EST Provider Outr Resulting Lab CHEMISTRY & BLOOD GAS ORDERABLES [facility] [address] [place] [address] documented in this encounter Visit Diagnoses Not on filedocumented in this encounter Care Teams Cut Off Saw Grader Relationship Specialty Start Date End Date Debby Puri MD [address] [place] [phone] PCP - General 09/11/13 documented as of this encounter
--- OUTSIDE RECORDS SUMMARY | 2024-09-02 16:10 | XMS_ITS | Encounter Summary ---
Author Organization [facility] Address [address] [place] [address] Care Team Providers Care Platen Grinder Name Role Phone Gatito Crawford MD Primary Care Provider Unavail able Encounter Details Date Type Department Care Team (Latest Contact Info) Description 09/08/2013 13:05 EDT - 09/08/2013 23:59 EDT Hospital Encounter [address] [address] Unknown, Provider, Discharge Disposition: Home or Self Care Social History Tobacco Use Types Packs/Day Years Used Date Smoking Tobacco: Never Assessed Sex and Gender Information Value Date Recorded Sex Assigned at Not on file Gender Identity Not on file Sexual Orientation Not on file documented as of this encounter Discharge Disposition Disposition Code Departure Means Destination Home or Self Residential documented in this encounter Plan of Treatment Not on file documented as of this encounter Visit Diagnoses Not on filedocumented in this encounter Care Teams Platen Grinder Relationship Specialty Start Date End Date Gatito Crawford MD PCP - General 05/09/09 09/10/13 documented as of this encounter
--- OUTSIDE RECORDS SUMMARY | 2024-09-02 16:10 | XMS_ITS | Encounter Summary ---
Author Organization [facility] Address [address] [place] [address] Care Team Providers Care Final Cleaner Name Role Phone Lamar Puri MD Primary Care Provider +1 [phone] Encounter Details Date Type Department Care Team (Late st Contact Info) Description 10/21/2014 Results Only [facility] [place] [phone] Trev Urbano MD [facility] [place], [place] [id number] Social History Tobacco Use Types Packs/Day Years [...] ? LEANDRA VELOZ ? Accession #: ? [id number] ? : ? 1980 (Age: 34) ??F [...] mcdonough-pink surface with a pinpoint lumen throughout. ??Food Service Representative sections are submitted as follows: BLOCK MARCANO A1- ??shorter fallopian tube A2- ??longer fallopian tube A3- ??pink-white fragments B. ?Received in formalin labelled with proper patient identification (initials O, M) and left cul-de-sac implant of endometriosis are two mcdonough-brown tissues (each 0.1 x 0.1 x 0.1 cm). Entirely submitted in B1. Mirna Herman 10/22/2014 09:18 AM End of Report [facility] 10/21/2014 19:4 1 EST 10/21/2014 19:41 EST Trev Urbano MD PATHOLOGY ORDERABLES [facility] [address] [place] [address] documented in this encounter Visit Diagnoses Not on filedocumented in this encounter Care Teams Final Cleaner Relationship Specialty Start Date End Date Lamar Puri MD [address] [place] [address] [address] [place] [address] PCP - General 09/11/13 documented as of this encounter
--- OUTSIDE RECORDS SUMMARY | 2024-09-02 16:10 | XMS_ITS | Referral Summary ---
Author Organization [facility] Address [address] [place] [address] Care Team Providers Care Internal Controls Consultant Name Role Phone Debby Puri MD Primary Care Provider +1- [phone] Social History Tobacco Use Types Packs/Day Years [...] C Antibody Negative Negative 12/29/2021 9:53 EST [facility] Blood VENOUS BLOOD / Unknown 12/28/2021 9:10 EST 12/28/2021 17:07 EST Provider Outr Resulting Lab CHEMISTRY & BLOOD GAS ORDERABLES [facility] [address] [place] [address] from Last 3 Months or Most Recently Relevant to Health Maintenance Care Teams Internal Controls Consultant Relationship Specialty Start Date End Date Debby Puri MD [address] [place] [address] [address] [place] [phone] PCP - General 09/11/13
--- OUTSIDE RECORDS SUMMARY | 2024-09-02 16:10 | XMS_ITS | Encounter Summary ---
Author Organization [facility] Address [address] [place] [address] Care Team Providers Care Decorative Greens Cutter Name Role Phone Debby Puri MD Primary Care Provider +1 [phone] Encounter Details Date Type Department Care Team (Late st Contact Info) Description 12/28/2021 Lab Requisition [facility] Pathology & Laboratory Medicine - [facility] [address] [place] [address] Outr Resulting Lab, Provider Social History Tobacco [...] 4th Generation Negative Negative 12/29/2021 9:47 EST [facility] Comment:If acute HIV-1 infec tion is suspected in a high risk patient, submit plasma specimen for HIV-1 RNA quantitation test. Blood VENOUS BLOOD / Unknown 12/28/2021 9:10 EST 12/28/2021 17:07 EST Narrative [facility] - 12/29/2021 9:47 EST Fourth Generation assay performed on the Siemens Centaur XPT. Provider Outr Resulting Lab IMMUNOLOGY A ND SEROLOGY ORDERABLES [facility] [address] [place] [address] documented in this encounter Visit Diagnoses Not on filedocumented in this encounter Care Teams Decorative Greens Cutter Relationship Specialty Start Date End Date Debby Puri MD [address] [place] [address] PCP - General 09/11/13 documented as of this encounter
--- OUTSIDE RECORDS SUMMARY | 2024-09-02 16:10 | XMS_ITS | Encounter Summary ---
Author Organization [facility] Address [address] [place] [address] Care Team Providers Care Wireless Store Manager Name Role Phone Debby Puri MD Primary Care Provider +1 [phone] Encounter Details Date Type Department Care Team (Late st Contact Info) Description 09/19/2023 Lab Requisition [facility] Pathology & Laboratory Medicine - [facility] [address] [place] [address] Outr Resulting Lab, Provider Social History Tobacco [...] 11:48 EDT) Hold Hold 09/19/2023 22:31 EDT [facility] Blood VENOUS BLOOD / Unknown 09/19/2023 11:48 EDT 09/19/2023 21:28 EDT Provider Outr Resulting Lab LAB INFO SER VICE AND SUPPORT & PHONE RESULT Performing Organization Address [facility] Co de Phone Number [facility] [address] [place] [address] * CEA (09/19/2023 11:48 EDT) CEA <0.5 See Note ng/mL 09/19/2023 22:56 EDT [facility] Comment: % Distribution of CEA [...] & BLOOD GAS ORDERABLES Performing Organization Address [facility] Co de Phone Number [facility] [address] [place] [address] * CA 19-9 (NEW SIEMENS METHOD IN USE 11/22/15) (09/19/2023 11:48 EDT) CA 19-9 23 <35 U/mL 09/20/2023 8:49 EDT [facility] Comment: NOTE: Serum CA 19-9 [...] & BLOOD GAS ORDERABLES Performing Organization Address [facility] Co de Phone Number [facility] [address] [place] [address] * CA 125 (09/19/2023 11:48 EDT) CA 125 9 <30 U/mL 09/20/2023 8:45 EDT [facility] Comment: NOTE: Serum CA 125 concentration should not be interpreted as absolute evidence for the presence or absence of malignant disease. Assayed on YoungCracksaur XPT using chemiluminescent technology. ??Values obtained by using different assay methods cannot be used interchangeably. Blood VENOUS BLOOD / Unknown 09/19/2023 11:48 EDT 09/19/2023 21:27 EDT Provider Outr Resulting Lab CHEMISTRY & BLOOD GAS ORDERABLES Performing Organization Address [facility] Co de Phone Number [facility] [address] [place] [address] documented in this encounter Visit Diagnoses Not on filedocumented in this encounter Care Teams Wireless Store Manager Relationship Specialty Start Date End Date Debby Puri MD [address] [place] [address] PCP - General 09/11/13 documented as of this encounter
--- OUTSIDE RECORDS SUMMARY | 2024-09-02 16:10 | XMS_ITS | Encounter Summary ---
Author Organization [facility] Address [address] [place] [address] Care Team Providers Care Outreach Representative Name Role Phone Debby Puri MD Primary Care Provider +1 [phone] Encounter Details Date Type Department Care Team (Late st Contact Info) Description 01/08/2022 Lab Requisition [facility] Pathology & Laboratory Medicine - [facility] [address] [place] [address] Outr Resulting Lab, Provider Social History Tobacco [...] H. Pylori Negative Negative 01/10/2022 12:54 EST [facility] Feces SPECIMEN FROM RECTUM / Unknown 01/08/2022 10:15 EST 01/08/2022 21:41 EST Narrative [facility] - 01/10/2022 12:54 EST Results were obtained with the [email or web address] HpSA Plus CARYN. Provider Outr Resulting Lab MICROBIOLOGY - GENERAL ORDERABLES [facility] [address] [place] [address] documented in this encounter Visit Diagnoses Not on filedocumented in this encounter Care Teams Outreach Representative Relationship Specialty Start Date End Date Debby Puri MD [address] [place] [phone] PCP - General 09/11/13 documented as of this encounter
--- OUTSIDE RECORDS SUMMARY | 2024-09-02 16:10 | XMS_ITS | Encounter Summary ---
Author Organization [facility] Address [address] [place] [address] Care Team Providers Care Paper Guillotine Operator Name Role Phone Debby Puri MD Primary Care Provider +1 [phone] Encounter Details Date Type Department Care Team (Latest Contact Info) Description 10/21/2014 13:32 EST - 10/21/2014 23:59 EST Hospital Encounter [address] [address] Unknown, Provider, Discharge Disposition: Home or Self Care Social History Tobacco Use Types Packs/Day Years Used Date Smoking Tobacco: Never Assessed Sex and Gender Information Value Date Recorded Sex Assigned at Not on file Gender Identity Not on file Sexual Orientation Not on file documented as of this encounter Discharge Disposition Disposition Code Departure Means Destination Home or Self [facility] documented in this encounter Plan of Treatment Not on file documented as of this encounter Visit Diagnoses Not on filedocumented in this encounter Care Teams Paper Guillotine Operator Relationship Specialty Start Date End Date Debby Puri MD [address] [place] [address] [address] [place] [address] PCP - General 09/11/13 documented as of this encounter
--- OUTSIDE RECORDS SUMMARY | 2024-09-02 16:11 | XMS_ITS | Encounter Summary ---
Author Organization [facility] Address [facility] [place] [address] Care Team Providers Care Data Security Analyst Name Role Phone Sree High APRN Primary Care Provider +1- [phone] Encounter Details Date Type Department Care Team [...] On track(2021 10:28 AM EST) Jill Colmenares, TEXTBOOK ASSOCIATE Note: Mindfulness/deep breathing practice to reduce cortisol -try for at least 10 minutes a day -try an ap such as headspace I have referred you to our psychologist to work on eating behaviors Health Executive Relations Specialist is sending hand-outs with exercises for mindful eating, The Pause/STOP and Urge surfing. Patient will review and try implementing some behaviors before we meet again. movement Lifestyle On track(2021 10:29 AM EST) Jill Colmenares, TEXTBOOK ASSOCIATE Note: Exercise goal is 150 min a [...] on filedocumented in this encounter Care Teams Data Security Analyst Relationship Specialty Start Date End Date Sree High, TEXTBOOK ASSOCIATE [address] [place] [address] [address] [facility] [address] [place] [address] PCP - General Family Medicine 12/19/22 documented as of this encounter
--- OUTSIDE RECORDS SUMMARY | 2024-09-02 16:11 | XMS_ITS | Encounter Summary ---
Author Organization [facility] Address [address] [place] [address] Care Team Providers Care Watch Assembly Instructor Name Role Phone Gatito Crawford MD Primary Care Provider Unavail able Encounter Details Date Type Department Care Team (Late st Contact Info) Description 12/01/2002 Results Only [facility] [address] [place] [address] Peg Hodges, [address] [place] [address] Social History Tobacco Use Types [...] ? LEANDRA AREVALO ? Accession #: ? [id number] : ? 1980 (Age: 22) ??F ?Collect Date: ? 12/01/2002 Location: ? [facility] ? Receive Date: ? 12/03/2002 Provider: ?PEG HODGES REFINER OPERATOR Copy to: ? Specimen/Source: ?ThinPrep Pap Test, [...] Report [facility] 12/01/2002 12/03/2002 Peg Hodges REFINER OPERATOR PATHOLOGY ORDERABLES [facility] [address] [place] [address] documented in this encounter Visit Diagnoses Not on filedocumented in this encounter Care Teams Watch Assembly Instructor Relationship Specialty Start Date End Date Gtaito Crawford MD PCP - General 05/09/09 09/10/13 documented as of this encounter
--- OUTSIDE RECORDS SUMMARY | 2024-09-02 16:11 | XMS_ITS | Encounter Summary ---
Author Organization [facility] [place] [address] Care Team Providers Care Charm Filter Operator Helper Name Role Phone Sree High APRN Primary Care Provider +1- [phone] Encounter Details Date Type Department Care Team (Latest Contact Info) Description 04/02/2024 1:38 PM EDT - 04/02/2024 11:59 PM EDT Hospital Encounter XRay at [address] [place] [address] Anni Varela SURGICAL DRESSING MAKER [facility] [place] [address] Epigastric pain; S/P gastric bypass Discharge Disposition: Home Social History Tobacco Use Types Packs/Day Years Used Date Smoking Tobacco: Never Smokeless Tobacco: Never Alcohol Use Standard Drinks/Week Comments Not Currently 0 (1 standard drink = 0.6 oz pur e alcohol) [facility] Inpatient Questions Answer Date Recorded Does [...] On track(2021 10:28 AM EST) Jill Colmenares, SURGICAL DRESSING MAKER Note: Mindfulness/deep breathing practice to reduce cortisol -try for at least 10 minutes a day -try an ap such as headspace I have referred you to our psychologist to work on eating behaviors Health Parole Officer is sending hand-outs with exercises for mindful eating, The Pause/STOP and Urge surfing. Patient will review and try implementing some behaviors before we meet again. movement Lifestyle On track(2021 10:29 AM EST) Jill Colmenares, SURGICAL DRESSING MAKER Note: Exercise goal is 150 min a [...] KUB (04/02/2024 2:43 PM EDT) WORKSTATION ID [id number] RAD Anatomical Region Laterality Modality N/A Radio [...] who have questions please contact the health career technical supervisor that requested your imaging first. ? Electronically signed by: Kathleen Sorto MD, [facility] ([phone]), at 04/02/2024 4:08 PM Narrative 04/02/2024 4:08 [...] patients who have questions please contactthe health career technical supervisor that requested your imaging first. Electronically signed by: Kathleen Sorto MD, [facility]([phone]), at 04/02/2024 4:08 PM Anni Varela APRN [...] mLs documented in this encounter Care Teams Charm Filter Operator Helper Relationship Specialty Start Date End Date Sree High APRN [address] [place] [address] PCP - General Family Medicine 12/19/22 documented as of this encounter
--- OUTSIDE RECORDS SUMMARY | 2024-09-02 16:11 | XMS_ITS | Encounter Summary ---
Author Organization [facility] Address [address] [place] [address] Care Team Providers Care Stationary Fireman Name Role Phone Gatito Crawford MD Primary Care Provider Unavail able Encounter Details Date Type Department Care Team (Late st Contact Info) Description 11/20/2001 Results Only [facility] - Maple conversion [address] [place] [address] [place] [id number] Social History Tobacco Use Types Packs/Day Years [...] Villafuerte CNM PATHOLOGY ORDERABLES [facility] [address] [place] [address] documented in this encounter Visit Diagnoses Not on filedocumented in this encounter Care Teams Stationary Fireman Relationship Specialty Start Date End Date Gatito Crawford MD PCP - General 05/09/09 09/10/13 documented as of this encounter
--- OUTSIDE RECORDS SUMMARY | 2024-09-02 16:11 | XMS_ITS | Encounter Summary ---
Author Organization [facility] Address [facility] [place] [address] Care Team Providers Care Medical Accounts Receivable Specialist Name Role Phone Sree High APRN Primary Care Provider +1- [phone] Encounter Details Date Type Department Care Team [...] On track(2021 10:28 AM EST) Jill Colmenares, WINDOWS SERVER SPECIALIST Note: Mindfulness/deep breathing practice to reduce cortisol -try for at least 10 minutes a day -try an ap such as headspace I have referred you to our psychologist to work on eating behaviors Health Linting Machine Operator is sending hand-outs with exercises for mindful eating, The Pause/STOP and Urge surfing. Patient will review and try implementing some behaviors before we meet again. movement Lifestyle On track(2021 10:29 AM EST) Jill Colmenares, WINDOWS SERVER SPECIALIST Note: Exercise goal is 150 min [...] filedocumented in this encounter Care Teams Medical Accounts Receivable Specialist Relationship Specialty Start Date End Date Sree High, WINDOWS SERVER SPECIALIST [address] [place] [address] [address] [facility] [address] [place] [address] PCP - General Family Medicine 12/19/22 documented as of this encounter
--- OUTSIDE RECORDS SUMMARY | 2024-09-02 16:11 | XMS_ITS | Encounter Summary ---
Author Organization [facility] Address [address] [place] [address] Care Team Providers Care Shipping Team Leader Name Role Phone Gatito Crawford MD Primary Care Provider Unavail able Encounter Details Date Type Department Care Team (Late st Contact Info) Description 02/01/2004 Results Only [facility] - Maple conversion [address] [place] [address] [place], [place] [id number] Social History Tobacco Use Types Packs/Day Years [...] ? LEANDRA AREVALO ? Accession #: ? [id number] : ? 1980 (Age: 23) ??F ?Collect [...] CNM PATHOLOGY ORDERABLES [facility] [address] [place] [address] documented in this encounter Visit Diagnoses Not on filedocumented in this encounter Care Teams Shipping Team Leader Relationship Specialty Start Date End Date Gatito Crawford MD PCP - General 05/09/09 09/10/13 documented as of this encounter
--- OUTSIDE RECORDS SUMMARY | 2024-09-02 16:11 | XMS_ITS | Encounter Summary ---
Author Organization [facility] Address [address] [place] [address] Care Team Providers Care Auxiliary Equipment Operator Name Role Phone Gatito Crawford MD Primary Care Provider Unavail able Encounter Details Date Type Department Care Team (Late st Contact Info) Description 07/27/2013 Results Only [facility] PRISM [phone] Trev Urbano MD [facility],[address] [address] Social History Tobacco Use Types Packs/Day Years [...] ? LEANDRA VELOZ ? Accession #: ? [id number] ? : ? 1980 (Age: 33) ??F [...] Urbano MD PATHOLOGY ORDERABLES Performing Organization Address City/State/[facility] Co de Phone Number [facility] [address] [place] [address] documented in this encounter Visit Diagnoses Not on filedocumented in this encounter Care Teams Auxiliary Equipment Operator Relationship Specialty Start Date End Date Gatito Crawford MD PCP - General 05/09/09 09/10/13 documented as of this encounter
--- OUTSIDE RECORDS SUMMARY | 2024-09-02 16:11 | XMS_ITS | Encounter Summary ---
Author Organization [facility] Address [facility] [place] [address] Care Team Providers Care Nuclear Medicine Officer Name Role Phone Sree High APRN Primary Care Provider +1- [phone] Encounter Details Date Type Department Care Team (Late st Contact Info) Description 04/17/2024 8:28 AM EDT Anesthesia [place] [address] Wes Vega MD [facility] [place] [address] Gricel Rooney CRNA [facility] [place] [address] Anesthesia Record Procedure Summary Procedure Name Responsible [...] by Maria Ines Condon RN PIV 04/17/24; 806; xrkr-xkr-wetglj catheter system; 22 gauge; cephalic vein (lateral side of arm), right; Anatomical Landmarks; US Not Used; Nancy MCKEON; distraction; 04/17/24; 0934 04/17/24 08 by Dede Orourke RN 04/17/24 0934 by [...] Procedure Summary Date: 04/17/24 Room / Location: [facility] ENDO 6 / [facility] ENDOSCOPY Anesthesia Start: 827 Anesthesia Stop: 849 Procedure: EGD WITH BIOPSY (WRVU 2.39) (Trunk) Diagnosis: Hiatal hernia Gastroesophageal reflux disease, unspecified whether esophagitis present (hiatal hernia ) (s/p luis fernando-surg) (gerd) Surgeons: Iram Borrero MD Responsible Provider: Wes Vega MD Anesthesia Type: MAC ASA Status: 2 All Anesthesia Providers: Anesthesiologist: Wes Vega MD ALGEBRAIST: Gricel Rooney CRNA Vitals Value Taken Time BP 109/73 04/17/24 0910 Temp Pulse Resp 16 04/17/24 0910 SpO2 100 % 04/17/24 0917 Pain Level 0 04/17/24 0910 Vitals shown include unfiled device data. Patient Location: PACU/[facility] Level of Consciousness: Awake and Alert Pain [...] 18.46) performed by Iram Borrero MD at [facility] MAIN OR PRO LAP GASTRIC BYPASS/RENATO-EN-Y N/A 01/10/2023 @LAPAROSCOPIC GASTROPLASTY W/ RENATO-EN-Y CONSTRUCTION (WRVU 29.4) performed by Iram Borrero MDat [facility] MAIN OR PRO LAP, DIAGNOSTIC ABDOMEN N/A 03/22/2023 LAPAROSCOPY, DIAGNOSTIC, ABDOMEN (WRVU 5.14) performed by Iram Borrero MD at [facility] MAIN OR PRO UPPER GI ENDOSCOPY, DIAGNOSTIC N/A 01/10/2023 EGD, UPPER GI ENDOSCOPY performed by Iram Borrero MD at [facility] OR PRO UPPER GI ENDOSCOPY, DIAGNOSTIC N/A 03/05/2023 EGD, UPPER GI ENDOSCOPY (WRVU 2.09) performed by Iram Borrero MD at [facility] OR PRO UPPER GI ENDOSCOPY, DIAGNOSTIC N/A 03/20/2023 EGD, UPPER GI ENDOSCOPY (WRVU 2.09) performed by Gerber Salomon MD at [facility] ENDOSCOPY Social History Tobacco Use Smoking status: [...] with patient. Plan discussed with attending and ALGEBRAIST. Anesthesia Screening documented in this encounter Plan [...] psychologist to work on eating behaviors Health Umbrella Tipper Hand is sending hand-outs with exercises for mindful [...] mg documented in this encounter Care Teams Nuclear Medicine Officer Relationship Specialty Start Date End Date Sree High, INDUSTRIAL SWEEPER CLEANER [address] [place] [address] PCP - General Family Medicine 12/19/22 documented as of this encounter
--- OUTSIDE RECORDS SUMMARY | 2024-09-02 16:11 | XMS_ITS | Encounter Summary ---
Author Organization [facility] Address [facility] [place] [address] Care Team Providers Care Wheat Inspector Name Role Phone Sree High APRN Primary Care Provider +1- [phone] Encounter Details Date Type Department Care Team [...] Scheduled Procedures Name Priority Associated Diagnoses Date/Ti ok COLONOSCOPY, DIAGNOSTIC (WRV U 3.26) Biliary stricture [...] On track(2021 10:28 AM EST) Jill Colmenares, PROGRAM SUPPORT CLERK Note: Mindfulness/deep breathing practice to reduce cortisol -try for at least 10 minutes a day -try an ap such as headspace I have referred you to our psychologist to work on eating behaviors Health Osteology Teacher is sending hand-outs with exercises for mindful eating, The Pause/STOP and Urge surfing. Patient will review and try implementing some behaviors before we meet again. movement Lifestyle On track(2021 10:29 AM EST) Jill Colmenares, PROGRAM SUPPORT CLERK Note: Exercise goal is 150 min a [...] on filedocumented in this encounter Care Teams Wheat Inspector Relationship Specialty Start Date End Date Sree High, PROGRAM SUPPORT CLERK [address] [place] [address] [address] [facility] [address] [place] [address] PCP - General Family Medicine 12/19/22 documented as of this encounter
--- OUTSIDE RECORDS SUMMARY | 2024-09-02 16:11 | XMS_ITS | Encounter Summary ---
Author Organization [facility] Address [address] [place] [address] Care Team Providers Care Supervisor Product Inspection Name Role Phone Gatito Crawford MD Primary Care Provider Unavail able Encounter Details Date Type Department Care Team (Late st Contact Info) Description 05/03/2010 Results Only [facility] Laboratory [facility] - [facility] ([facility]) [address] [place], [place] [address] Eduar Helm MD [address] [place] [address] Social History Tobacco Use Types [...] ? LEANDRA AREVALO ? Accession #: ? [id number] ? : ? 1980 (Age: 30) ??F [...] reviewed and electronically signed by: ? MILLA AWLKER MD M[facility] ? Report Date: ??05/11/2010 16:27 ? End of Report ? [facility] 05/03/2010 05/05/2010 Eduar Helm MD PATHOLOGY ORDERABLES [facility] [address] [place] [address] documented in this encounter Visit Diagnoses Not on filedocumented in this encounter Care Teams Supervisor Product Inspection Relationship Specialty Start Date End Date Gatito Crawford MD PCP - General 05/09/09 09/10/13 documented as of this encounter
--- OUTSIDE RECORDS SUMMARY | 2024-09-02 16:11 | XMS_ITS | Encounter Summary ---
Author Organization [facility] Address [facility] [address] Care Team Providers Care Wool Supplier Name Role Phone Sree High APRN Primary Care Provider +1- [phone] Encounter Details Date Type Department Care Team (Late st Contact Info) Description 04/03/2024 Telephone [place] [phone] Anni Varela WHEY DEPARTMENT OPERATOR [facility] [place] [address] Social History Tobacco Use Types Packs/Day Years Used Date Smoking Tobacco: Never Smokeless Tobacco: Never Alcohol Use Standard Drinks/Week Comments Not Currently 0 (1 standard drink = 0.6 oz pur e alcohol) [facility] Inpatient Questions Answer Date Recorded Does [...] psychologist to work on eating behaviors Health Overlock Operator is sending hand-outs with exercises for [...] on filedocumented in this encounter Care Teams Wool Supplier Relationship Specialty Start Date End Date Sree High APRN [address] [place] [address] PCP - General Family Medicine 12/19/22 documented as of this encounter
--- OUTSIDE RECORDS SUMMARY | 2024-09-02 16:11 | XMS_ITS | Encounter Summary ---
Author Organization [facility] Address [address] [place] [address] Care Team Providers Care Nursery Rn Name Role Phone Gatito Crawford MD Primary Care Provider Unavail able Encounter Details Date Type Department Care Team (Late st Contact Info) Description 06/05/2006 Results Only [facility] - Maple conversion [address] [place] [address] Hector Ford MD [address] [place] [address] Social History Tobacco Use Types Packs/Day Years [...] ? LEANDRA AREVALO ? Accession #: ? [id number] ? : ? 1980 (Age: 26) ??F [...] tip and extends to the mesoappendix. ??A pest control service representative section of the distal tip, cross section and proximal margin (inked and en face) is submitted in one cassette. ??(Victor M Fischer)/[facility] End of Report [facility] 06/05/2006 06/06/2006 9:5 6 EDT Hector Ford MD PATHOLOGY ORDERABLE S [facility] [address] [place] [address] documented in this encounter Visit Diagnoses Not on filedocumented in this encounter Care Teams Nursery Rn Relationship Specialty Start Date End Date Gatito Crawford MD PCP - General 05/09/09 09/10/13 documented as of this encounter
--- OUTSIDE RECORDS SUMMARY | 2024-09-02 16:11 | XMS_ITS | Encounter Summary ---
Author Organization [facility] Address [address] [place] [address] Care Team Providers Care Bowling Ball Weigher And Packer Name Role Phone Gatito Crawford MD Primary Care Provider Unavail able Encounter Details Date Type Department Care Team (Late st Contact Info) Description 11/07/2010 Results Only [facility] [phone] Gio Rodriguez MD [address] [place] [address] Social History Tobacco Use Types Packs/Day Years [...] ? MAGDIEL, LEANDRA ? Accession #: ? [id number] ? : ? 1980 (Age: 30) ??F [...] MD PATHOLOGY ORDERABLES [facility] [address] [place] [address] documented in this encounter Visit Diagnoses Not on filedocumented in this encounter Care Teams Bowling Ball Weigher And Packer Relationship Specialty Start Date End Date Gatito Crawford MD PCP - General 05/09/09 09/10/13 documented as of this encounter
--- OUTSIDE RECORDS SUMMARY | 2024-09-02 16:11 | XMS_ITS | Encounter Summary ---
Author Organization [facility] Address [facility] [place] [address] Care Team Providers Care Supervisor Melt House Name Role Phone Sree High APRN Primary Care Provider +1- [phone] Reason for Visit * Reason Onset Date Comments Appointment 12/27/2023 MRI Encounter Details Date Type Department Care Team ([facility] st Contact Info) Description 12/27/2023 [place] [phone] Maximo Solis, RN Appointment (MRI) Social History [...] left asking for a return call to [phone] to schedule an appointment. documented in this [...] psychologist to work on eating behaviors Health Registered Health Nurse is sending hand-outs with exercises for [...] filedocumented in this encounter Care Teams Supervisor Melt House Relationship Specialty Start Date End Date Sree High, BRYANNA [address] [place] [address] PCP - General Family Medicine 12/19/22 documented as of this encounter
--- OUTSIDE RECORDS SUMMARY | 2024-09-02 16:11 | XMS_ITS | Encounter Summary ---
Author Organization [facility] Address [facility] [place] [address] Care Team Providers Care Plant Electrical Engineer Name Role Phone Sree High APRN Primary Care Provider +1- [phone] Encounter Details Date Type Department Care Team (Late st Contact Info) Description 11/07/2023 Telephone General Surgery at [facility] [place] [phone] Blaire Quintero, RN Social History Tobacco Use Types Packs/Day Years Used Date Smoking Tobacco: Never Smokeless Tobacco: Never Alcohol Use Standard Drinks/Week Comments Not Currently 0 (1 standard drink = 0.6 oz pur e alcohol) [facility] Inpatient Questions Answer Date Recorded Does Anyone [...] 11:28 AM EST Pt sent the following [facility] message: I'm not doing well at all. [...] psychologist to work on eating behaviors Health Experimental Mechanic is sending hand-outs with exercises for [...] on filedocumented in this encounter Care Teams Plant Electrical Engineer Relationship Specialty Start Date End Date Sree High APRN [address] [facility] [facility] [facility] [address] [place] [address] PCP - General Family Medicine 12/19/22 documented as of this encounter
--- OUTSIDE RECORDS SUMMARY | 2024-09-02 16:11 | XMS_ITS | Encounter Summary ---
Author Organization [facility] Address [address] [place] [address] Care Team Providers Care Major Account Representative Name Role Phone Gatito Yoder MD Primary Care Provider Unavail able Encounter Details Date Type Department Care Team (Late st Contact Info) Description 08/10/2008 Before [facility] Converted Visit (Maple) [facility] - Maple conversion [address] [place] [address] Franklyn Ford, DO [address] [facility] [address] [place] [address] Social History Tobacco Use Types [...] ? AREVALO, LEANDRA ? Accession #: ? [id number] ? : ? 1980 (Age: 28) ??F [...] nausea ? Gross Description: ? Received in Celsi[employer]'s solution labelled Arevalo and biopsy terminal ? ileum is a single 0.2 x 0.2 x 0.1 cm, pink-mcdonough, irregular, soft tissue. ? Submitted in toto in (A). ? Received in Celsiase's solution labelled Arevalo and biopsy ascending colon ?? is a single 0.5 x 0.2 x 0.2 cm, pink-mcdonough, irregular, soft tissue. ??Submitted in toto in (B). ? Received in [employer]'s solution labelled Moe and biopsy transverse colon is a single 0.2 x 0.2 x 0.2 cm, pink-mcdonough, irregular, soft tissue. ??Submitted in toto in (C). ? Received in [employer]'s solution labelled Moe and biopsy descending colon are two pink-mcdonough, irregular, soft tissues, 0.2 x 0.2 x 0.1 cm and 0.5 x 0.2 x ?? 0.1 cm. ??Submitted in toto in (D). ? Received in Celsiase's solution labelled Arevalo and biopsy sigmoid is a ? single 0.3 x 0.2 x 0.2 cm, pink-mcdonough, irregular, soft tissue. ??Submitted in toto in (E). ? Received in Celsiase's solution labelled Arevalo and biopsy rectum is a ? single 0.5 x 0.2 x 0.2 cm, pink-mcdonough, irregular, soft tissue. ??Submitted in toto in (F). ? Received in [employer]'s solution labelled Arevalo and biopsy antrum are two ?? pink-mcdonough irregular soft tissues, 0.3 x 0.2 x 0.2 cm and 0.4 x 0.3 x 0.2 cm. ? Submitted in toto in (G). ??/lgk ? End of Report ? [facility] 08/10/2008 08/10/2008 16: 45 EDT Franklyn Ford DO PATHOLOGY ORDER FUNMI Performing Organization Address City/State/[facility] Co de Phone Number [facility] [address] [place] [address] documented in this encounter Visit Diagnoses Not on filedocumented in this encounter Care Teams Major Account Representative Relationship Specialty Start Date End Date Gatito Yoder MD PCP - General 05/09/09 09/10/13 documented as of this encounter
--- OUTSIDE RECORDS SUMMARY | 2024-09-02 16:11 | XMS_ITS | Encounter Summary ---
Author Organization [facility] Address [address] [place] [address] Care Team Providers Care Supervisor Electronic Coils Name Role Phone Gatito Crawford MD Primary Care Provider Unavail able Encounter Details Date Type Department Care Team (Late st Contact Info) Description 08/04/2007 Results Only [facility] - Maple conversion [address] [place] [address] Avery Purvis PA Social History Tobacco Use [...] ? LEANDRA AREVALO ? Accession #: ? [id number] : ? 1980 (Age: 27) ??F ?Collect Date: ? 08/04/2007 Location: ? [facility] ? Receive Date: ? 08/05/2007 Provider: ?AVERY GAINES Copy to: ? Specimen/Source: ?ThinPrep Pap Test, Endocervix, processed on RadiumOne ThinPrep Imaging System, with manual evaluation Last [...] GAINES PATHOLOGY ORDERABLES [facility] [address] [place] [address] documented in this encounter Visit Diagnoses Not on filedocumented in this encounter Care Teams Supervisor Electronic Coils Relationship Specialty Start Date End Date Gatito Crawford MD PCP - General 05/09/09 09/10/13 documented as of this encounter
--- OUTSIDE RECORDS SUMMARY | 2024-09-02 16:11 | XMS_ITS | Encounter Summary ---
Author Organization [facility] Address [address] [place] [address] Care Team Providers Care Research Chef Name Role Phone Unavailable Primary Care Provider Unavailabl e Encounter Details Date Type Department Care Team (Late st Contact Info) Description 05/02/2009 Orders Only [facility] Laboratory Services - [facility] ([facility]) [address] [place], [place] [address] Peg Hodges, [facility] [address] [place] [address] [place] [address] Social History Tobacco Use Types [...] ? MICKEY, LEANDRA ? Accession #: ? [id number] ? : ? 1980 (Age: 29) ??F ?Collect Date: ? 05/02/2009 ? Location: ? [facility] ? Receive Date: ? 05/03/2009 ? Provider: ?PEG HIRA INCOME TAX ADJUSTER ? Copy to: ? Specimen/Source: ?Pap Test, [...] ? (LSIL). ? EDUCATIONAL NOTES/RECOMMENDATI ONS ? [facility] recommends following the 2006 Consensus Guidelines for the Management of Women with Abnormal Cervical Cancer Screening Tests (JLGTD, ? 2007;11(4):201-222 ). ??Consensus guidelines are available online at ? www.ASCCP.org. ? Document reviewed and electronically signed by: ? ANYAWYN ANNMAN MD MBB[facility] ? Report Date: ??05/06/2009 18:35 ? End of Report ? [facility] 05/02/2009 05/03/2009 Peg Hodges INCOME TAX ADJUSTER PATHOLOGY ORDERABLES [facility] [address] [place] [address] documented in this encounter Visit Diagnoses Not on filedocumented in this encounter
--- OUTSIDE RECORDS SUMMARY | 2024-09-02 16:11 | XMS_ITS | Encounter Summary ---
Author Organization [facility] Address [facility] [place] [address] Care Team Providers Care Special Education Coordinator Name Role Phone Sree High APRN Primary Care Provider +1- [phone] Encounter Details Date Type Department Care Team [...] On track(2021 10:28 AM EST) Jill Colmenares, MONOTYPE MACHINIST Note: Mindfulness/deep breathing practice to reduce cortisol -try for at least 10 minutes a day -try an ap such as headspace I have referred you to our psychologist to work on eating behaviors Health Beef Trimmer is sending hand-outs with exercises for mindful eating, The Pause/STOP and Urge surfing. Patient will review and try implementing some behaviors before we meet again. movement Lifestyle On track(2021 10:29 AM EST) Jill Colmenares, MONOTYPE MACHINIST Note: Exercise goal is 150 min a [...] on filedocumented in this encounter Care Teams Special Education Coordinator Relationship Specialty Start Date End Date Sree High, MONOTYPE MACHINIST [address] [place] [address] [address] [facility] [address] [place] [address] PCP - General Family Medicine 12/19/22 documented as of this encounter
--- OUTSIDE RECORDS SUMMARY | 2024-09-02 16:11 | XMS_ITS | Encounter Summary ---
Author Organization [facility] Address [facility] [place] [address] Care Team Providers Care Histotechnologist Name Role Phone Sree High APRN Primary Care Provider +1- [phone] Encounter Details Date Type Department Care Team (Latest Contact Info) Description 04/17/2024 7:44 AM EDT - 04/17/2024 9:39 AM EDT Hospital [place] [phone] Iram Borrero MD [facility] [place] [address] Discharge Disposition: Home Social History Tobacco Use Types Packs/Day Years Used Date Smoking Tobacco: Never Smokeless Tobacco: Never Alcohol Use Standard Drinks/Week Comments Not Currently 0 (1 standard drink = 0.6 oz pur e alcohol) [facility] Inpatient Questions Answer Date Recorded Does [...] the day after the procedure, use an jbmu-cwb-gzpfvoy spray to numb your throat. Sucking on [...] occurs, please contact your Doctor. Please call [phone] before 8pm Mon-Fri with problems, questions or concerns. If you call after 8pm or on weekends, call the Hospital at [phone] and ask to speak to the Polisher Implant welder production line combination and the book jacket cover machine operator will contact that person for you. When should you call for help? Call [phone] anytime you think you may need emergency [...] any problems. Where can you learn more? [facility] View your After Visit Summary and more online at [email or web address] If you would like to provide [...] cost to you. Content Version: 12.2 ?? 8323-3788 [employer]. Care instructions adapted under license by [facility]. If you have questions about a medical condition or this instruction, always ask your healthcare professional. [employer] disclaims any warranty or liability for your [...] Borrero MD - 04/17/2024 8:32 AM EDT [facility] General Surgery History and Physical History [...] 18.46) performed by Iram Borrero MD at [facility] MAIN OR PRO LAP GASTRIC BYPASS/RENATO-EN-Y N/A 01/10/2023 @LAPAROSCOPIC GASTROPLASTY W/ RENATO-EN-Y CONSTRUCTION (WRVU 29.4) performed by Iram Borrero MDat [facility] MAIN OR PRO LAP, DIAGNOSTIC ABDOMEN N/A 03/22/2023 LAPAROSCOPY, DIAGNOSTIC, ABDOMEN (WRVU 5.14) performed by Iram Borrero MD at [facility] MAIN OR PRO UPPER GI ENDOSCOPY, DIAGNOSTIC N/A 01/10/2023 EGD, UPPER GI ENDOSCOPY performed by Iram Borrero MD at [facility] MAIN OR PRO UPPER GI ENDOSCOPY, DIAGNOSTIC N/A 03/05/2023 EGD, UPPER GI ENDOSCOPY (WRVU 2.09) performed by Iram Borrero MD at [facility] MAIN OR PRO UPPER GI ENDOSCOPY, DIAGNOSTIC N/A 03/20/2023 EGD, UPPER GI ENDOSCOPY (WRVU 2.09) performed by Gerber Salomon MD at [facility] ENDOSCOPY Medications: No current facility-administered medications [...] Borrero MD General Surgery Minimally Invasive Surgery [phone] documented in this encounter Miscellaneous Notes * Op Note - Iram Borrero MD - 04/17/2024 8:37 AM EDT [facility] [place] Patient Name: Leandra Wilks : [id number] MR#: [id number] Case Date: 04/17/2024 Surgeon: Surgeons and Role: [...] On track(2021 10:28 AM EST) Jill Colmenares, TACTICAL AIR CONTROL PARTY Note: Mindfulness/deep breathing practice to reduce cortisol -try for at least 10 minutes a day -try an ap such as headspace I have referred you to our psychologist to work on eating behaviors Health Cnc Milling Machine Operator is sending hand-outs with exercises for mindful eating, The Pause/STOP and Urge surfing. Patient will review and try implementing some behaviors before we meet again. movement Lifestyle On track(2021 10:29 AM EST) Jill Colmenares, TACTICAL AIR CONTROL PARTY Note: Exercise goal is 150 min a [...] 8:45 AM EDT Upper Gi Endoscopy, Biopsy ([id number]) 04/17/2024 8:32 AM EDT Hiatal hernia Gastroesophageal reflux disease, unspecified whether esophagitis present UPPER GI ENDOSCOPY Routine 04/17/2024 7: 57 AM EDT documented in this encounter Results * Surgical Pathology Report (04/17/2024 8:45 AM EDT) Final Diagnosis [id number] ? Location: 4; [facility]; A The signing pathologist has (i) examined the relevant preparation(s) for the specimen(s) and (ii) rendered or confirmed the diagnosis(es). . ?Surgical Pathology DIAGNOSIS A - Gastric pouch, r/o H Pylori, biopsy (Multiple): - ??Gastric fundic mucosa within normal limits. - ??No H. pylori-like microorganisms are seen. Electronically signed by: ?Geraldine Lawrence MD Verified: ??04/24/2024 7:38 ?? Pathologist Performed at: ??-[facility] [place]. [place], [place] [id number] Molding Cutter: Geraldine Lawrence MD, FCAP, ??CLIA Certificate: [id number] SPECIMEN(S) SUBMITTED A - gastric pouch, r/o H Pylori, biopsy (Multiple) CLINICAL INFORMATION 44-year-old female, gastric bypass now with upper abdominal pain SPECIMEN PROCESSING A - Labeled/Fixative: Gastric pouch, rule out H. pylori, formalin. Quantity/Size: Two, 0.4 and 0.6 cm. Tissue Description: Soft, mcdonough tissues. Sections/Processi ng: Submitted in toto ??in 1 cassette labeled A1. ??sdy 04/24/2024 7:38 AM EDT [facility] GI Biopsy 04/17/2024 8:45 AM EDT 04/17/2024 8:45 AM EDT Iram Borrero MD PATHOLOGY/CYTOLOGY O MANDY Performing Organization Address City/[facility]/[place] [address] * Specimen to Pathology (04/17/2024 8:45 AM EDT) AP Specimen 04/17/2024 8:45 AM EDT 04/17/2024 8:45 AM EDT Narrative [facility] - 04/17/2024 8:45 AM EDT Specimen requisition ordered. ??Separate Pathology report to follow Iram Borrero MD PATHOLOGY/CYTOLOGY O MANDY Performing Organization Address [facility] [place] [address] * UPPER GI ENDOSCOPY (04/17/2024 7:57 AM EDT) UPPER GI ENDOSCOPY [facility] Endoscopy Procedure Date: 04/17/2024 7:57 AM ? Patient Name: Leandra [place] ? Date of : 1980 ? Age: 44 ? Order #: [id number] ? Instrument Name: [id number] ? Procedure: ? Upper GI endoscopy Indications: [...] and ? erythema. This was traversed. The bcnef-gg-axmrpnu ? limb was characterized by healthy appearing [...] Procedure Code(s): ? --- Professional --- ? 30206, 52, ? Esophagogastroduoden oscopy, ? flexible, transoral; with biopsy, ? single or multiple Diagnosis Code(s): ? --- Professional --- ? R10.13, Epigastric pain ? K29.70, Gastritis, unspecified, ? without bleeding ? --- Technical --- ? R10.13, Epigastric pain ? K29.70, Gastritis, unspecified, ? without bleeding CPT copyright 2021 [employer]. All rights reserved. The codes documented in this report are preliminary and upon combination machine tool setter review may be revised to meet current compliance requirements. Attending Participation: ? I personally performed the entire procedure. ? Iram Borrero MD Iram Borrero, 04/17/2024 10:00:34 AM This report has been signed electronically. Number of Addenda: 0 Note Initiated On: 04/17/2024 7:57 AM PROVATION 04/17/2024 7:57 AM EDT Sree High APRN GENERAL SURGICAL O RDERABLES PROVATION documented in [...] RN) documented in this encounter Care Teams Histotechnologist Relationship Specialty Start Date End Date Sree High APRN [address] [place] [address] PCP - General Family Medicine 12/19/22 documented as of this encounter
--- OUTSIDE RECORDS SUMMARY | 2024-09-02 16:11 | XMS_ITS | Encounter Summary ---
Author Organization [facility] [address] Care Team Providers Care Family Practice Md Name Role Phone Sree High APRN Primary Care Provider +1- [phone] Encounter Details Date Type Department Care Team (Late st Contact Info) Description 11/07/2023 Telephone [place] [phone] Anni Varela APRN [facility] [place] [address] Social History Tobacco Use Types Packs/Day Years Used Date Smoking Tobacco: Never Smokeless Tobacco: Never Alcohol Use Standard Drinks/Week Comments Not Currently 0 (1 standard drink = 0.6 oz pur e alcohol) [facility] Inpatient Questions Answer Date Recorded Does Anyone Try to Keep You From Having Contact with Others or Doing Things Outside Your Home? no 03/18/2023 Feels Threatened by Someone no 0511/2022 Feels Unsafe at Home or Work/School no [...] psychologist to work on eating behaviors Health Ceramic Engineering Professor is sending hand-outs with exercises [...] on filedocumented in this encounter Care Teams Family Practice Md Relationship Specialty Start Date End Date Sree High APRN [address] [place] [address] PCP - General Family Medicine 12/19/22 documented as of this encounter
--- OUTSIDE RECORDS SUMMARY | 2024-09-02 16:11 | XMS_ITS | Encounter Summary ---
Author Organization [facility] Address [address] [place] [address] Care Team Providers Care Platen Drier Operator Name Role Phone Gatito Crawford MD Primary Care Provider Unavail able Encounter Details Date Type Department Care Team (Late st Contact Info) Description 07/01/2012 Results Only [facility] Laboratory Services - [facility] ([facility]) [address] [place], [place] [address] Peg Hodges, [facility] [address] [place] [address] [place] [address] Social History Tobacco Use Types [...] ? LEANDRA VELOZ ? Accession #: ? [id number] : ? 1980 (Age: 32) ??F ?Collect Date: ? 07/01/2012 Location: ? [facility] ? Receive Date: ? 07/02/2012 Provider: ?PEG HODGES ANTENNA RIGGER Copy to: ? Specimen/Source: ?Pap Test, Cervix/Endocervix, [...] [facility] 07/01/2012 07/02/2012 Peg Hodges ANTENNA RIGGER PATHOLOGY ORDERABLES [facility] [address] [place] [address] documented in this encounter Visit Diagnoses Not on filedocumented in this encounter Care Teams Platen Drier Operator Relationship Specialty Start Date End Date Gatito Crawford MD PCP - General 05/09/09 09/10/13 documented as of this encounter
--- OUTSIDE RECORDS SUMMARY | 2024-09-02 16:11 | XMS_ITS | Encounter Summary ---
Author Organization [facility] Address [address] [place] [address] Care Team Providers Care Coal Trimmer Machine Operator Name Role Phone Unavailable Primary Care Provider Unavailabl e Encounter Details Date Type Department Care Team (Late st Contact Info) Description 04/23/2001 6:10 EDT Hospital Encounter [facility] - Other [address] [place] [address] Magan Harris [address] [place], [place] [address] Unknown, Provider, Social History Tobacco Use Types [...] ? LEANDRA AREVALO ? Accession #: ? [id number] ? : ? 1980 (Age: 29) ??F [...] ? (LSIL). ? EDUCATIONAL NOTES/RECOMMENDATI ONS ? [facility] recommends following the 2006 Consensus Guidelines for the Management of Women with Abnormal Cervical Cancer Screening Tests (JLGTD, ? 2007;11(4):201-222 ). ??Consensus guidelines are available online at ? www.ASCCP.org. ? Document reviewed and electronically signed by: ? ROCIO MOUNT MD ? Report Date: ??12/14/2009 10:23 ? End of Report ? [facility] 12/08/2009 12/09/2009 Eduar Bernstein MD PATHOLOGY ORDERABLES [facility] [address] [place] [address] documented in this encounter Visit Diagnoses Not on filedocumented in this encounter
--- OUTSIDE RECORDS SUMMARY | 2024-09-02 16:11 | XMS_ITS | Encounter Summary ---
Author Organization [facility] Address [facility] [address] [place] [address] Care Team Providers Care Public Health Doctor Name Role Phone Sree High APRN Primary Care Provider +1- [phone] Reason for Referral * Diagnostic Test (Routine) - Closed Specialty Diagnoses / Procedures Referred By Contac t Referred To Contact Radiology Diagnoses Biliary stricture Procedures MRI Cholangiopancreatography wwo Contrast Sunshine Yen MD [facility] [place] [address] [place] [address] Referral ID Status Reason Start Date Expiration Date V isits Requested Visits Authorized [id number] Closed Specialty Service Requested 07/23/2023 01/20/2025 1 1 Reason for Visit * Diagnostic Test (Routine) - Closed Specialty Diagnoses / Procedures Referred By Contac t Referred To Contact Radiology Diagnoses Biliary stricture Procedures MRI Cholangiopancreatography wwo Contrast Sunshine Yen MD [facility] [place] [address] [place] [address] Referral ID Status Reason Start Date Expiration Date V isits Requested Visits Authorized [id number] Closed Specialty Service Requested 07/23/2023 01/20/2025 1 1 Encounter Details Date Type Department Care Team (Latest Contact Info) Description 03/23/2024 12:51 PM EDT - 03/23/2024 11:59 PM EDT Hospital Encounter MRI at [facility] [place] [address] [facility] [place] [address] Biliary stricture Discharge Disposition: Home Social History [...] psychologist to work on eating behaviors Health Glaze Carrier is sending hand-outs with exercises for mindful [...] Contrast (03/23/2024 2:39 PM EDT) WORKSTATION ID [id number] DH RAD Anatomical Region Laterality Modality Magnetic [...] who have questions please contact the health plant care worker that requested your imaging first. ? Electronically signed by: CARLEEN GARCIA MD, [facility] ([phone]), at 03/24/2024 8:56 AM Narrative 03/24/2024 8:56 [...] patients who have questions please contactthe health plant care worker that requested your imaging first. Electronically signed by: CARLEEN GARCIA MD, [facility]([phone]), at 03/24/2024 8:56 AM Sunshine Yen MD IM MRI ORDERABLES documented in this encounter Visit [...] mLs documented in this encounter Care Teams Public Health Doctor Relationship Specialty Start Date End Date Sree High, POWER LINEMAN TECHNICIAN [address] [place] [address] [address] [place] [address] PCP - General Family Medicine 12/19/22 documented as of this encounter
--- OUTSIDE RECORDS SUMMARY | 2024-09-02 16:11 | XMS_ITS | Encounter Summary ---
Author Organization [facility] Address [address] [place] [address] Care Team Providers Care Uke Driver Name Role Phone Gatito Yoder MD Primary Care Provider Unavail able Encounter Details Date Type Department Care Team (Late st Contact Info) Description 05/26/2009 Orders Only [facility] Laboratory Services - [facility] ([facility]) [address] [place], [place] [id number] Eduar Bernstein MD [address] [place] [address] Social History Tobacco Use Types Packs/Day [...] ? AREVALO, LEANDRA ? Accession #: ? [id number] ? : ? 1980 (Age: 29) ??F [...] Comment: ? The patient's referring Pap smear ([id number]) has been reviewed and the ? diagnosis [...] Bernstein MD PATHOLOGY ORDERABLES Performing Organization Address City/State/[facility] Co de Phone Number [facility] [address] [place] [address] documented in this encounter Visit Diagnoses Not on filedocumented in this encounter Care Teams Uke Driver Relationship Specialty Start Date End Date Gatito Yoder MD PCP - General 05/09/09 09/10/13 documented as of this encounter
--- OUTSIDE RECORDS SUMMARY | 2024-09-02 16:11 | XMS_ITS | Encounter Summary ---
Author Organization [facility] [place] [address] Care Team Providers Care Acoustic Engineer Name Role Phone Sree High APRN Primary Care Provider +1- [phone] Reason for Referral * Diagnostic Test (Routine) - Authorized Specialty Diagnoses / Procedures Referred By Chela doyle Referred To Contact Radiology Diagnoses PSC (primary sclerosing cholangitis) Procedures MRI Cholangiopancreatography wwo Contrast Sunshine Yen MD [facility] [place] [address] [place] [address] Referral ID Status Reason Start Date Expiration Date Visits Requested Visits Authorized [id number] Authorized Specialty Service Requested 03/24/2024 09/24/2025 1 1 Encounter Details Date Type Department Care Team ([facility] Contact Info) Description 03/24/2024 Orders Only [place] [address] Sunshine Yen MD [facility] [address] PSC (primary sclerosing cholangitis) Social History Tobacco Use Types Packs/Day Years Used Date Smoking Tobacco: Never Smokeless Tobacco: Never Alcohol Use Standard Drinks/Week Comments Not Currently 0 (1 standard drink = 0.6 oz pur e alcohol) [facility] Inpatient Questions Answer Date Recorded Does [...] psychologist to work on eating behaviors Health Door Furring Installer is sending hand-outs with exercises for [...] Cholangitis documented in this encounter Care Teams Acoustic Engineer Relationship Specialty Start Date End Date Sree High APRN [address] [place] [address] [address] [place] [address] PCP - General Family Medicine 12/19/22 documented as of this encounter
--- OUTSIDE RECORDS SUMMARY | 2024-09-02 16:11 | XMS_ITS | Encounter Summary ---
[facility] Organization [facility] [place] [address] Care Team Providers Care Graduate Assistant Name Role Phone Sree High APRN Primary Care Provider +1- [phone] Encounter Details Date Type Department Care Team (Latest Contact Info) Description 01/10/2024 12:30 PM EST Laboratory Appointment Lab [address] [place] [id number] S/P gastric bypass; Disorder of iron metabolism [...] On track(2021 10:28 AM EST) Jill Colmenares, MERINGUER Note: Mindfulness/deep breathing practice to reduce cortisol -try for at least 10 minutes a day -try an ap such as headspace I have referred you to our psychologist to work on eating behaviors Health Cash Posting Representative is sending hand-outs with exercises for mindful eating, The Pause/STOP and Urge surfing. Patient will review and try implementing some behaviors before we meet again. movement Lifestyle On track(2021 10:29 AM EST) Jill Colmenares, MERINGUER Note: Exercise goal is 150 min a week, just do some walking, even [address] to start Recommend resistance training 3 times a week -can use [email or web address] Nutrition - 09/26/22 Lifestyle On track(2021 10:29 [...] Procedure Name Priority Date/Time Associated Diagnosis Comments PTH Routine 01/10/2024 12:06 PM EST S/P gastric bypass Disorder of iron metabolism HEMOGRAM Routine 01/10/2024 12:06 PM EST S/P gastric bypass Disorder of iron metabolism VITAMIN B1, WHOLE BLOOD Routine 01/10/2024 12:06 PM EST S/P gastric bypass Disorder of iron metabolism IRON AND TIBC Routine 01/10/2024 12:06 PM EST S/P gastric bypass Disorder of iron metabolism VITAMIN D, 25-HYDROXY Routine 01/10/2024 12:06 PM EST S/P gastric bypass Disorder of iron metabolism FOLATE, SERUM Routine 01/10/2024 12:06 PM EST S/P gastric bypass Disorder of iron metabolism FERRITIN Routine 01/10/2024 12:06 PM EST S/P gastric bypass Disorder of iron metabolism VITAMIN B12 Routine 01/10/2024 12:06 PM EST S/P gastric bypass COMPREHENSIVE METABOLIC PANEL Routine 01/10/2024 12:06 PM EST S/P gastric bypass Disorder of iron metabolism documented in this encounter Results * (ABNORMAL) Comprehensive metabolic panel (non-fasting) (01/10/2024 12:06 PM EST) Glucose 82 65 - 199 mg/dL [facility] Comment:Diabetes: >=200 mg/d L plus symptoms Blood Urea Nitrogen 14 8 - 18 mg/dL [facility] Creatinine 0.63(L) 0.70 - 1.20 mg/dL [facility] Sodium 139 135 - 145 mmol/L [facility] Potassium 3.8 3.5 - 5.0 mmol/L [facility] Comment: Please note: ??Patients with WBC >100,000 may have falsely elevated Potassium levels. ??For accurate Potassium quantification in these patients send serum separator tube (gold top) for subsequent determinations. ??Contact the Clinical Chemistry Laboratory if there are any questions. Chloride 104 98 - 107 mmol/L [facility] Carbon Dioxide 28 22 - 31 mmol/L [facility] Anion Gap 7 5 - 15 mmol/L [facility] Calcium 9.2 8.5 - 10.5 mg/dL [facility] Protein, Total 6.6 6.1 - 8.0 g/dL [facility] Albumin 4.4 3.2 - 5.2 g/dL [facility] Aspartate Aminotransferase 30 0 - 30 unit/L [facility] Alanine Aminotransferase 39(H) 0 - 30 unit/L [facility] Alkaline Phosphatase 94 35 - 105 unit/L [facility] Bilirubin, Total 0.6 0.2 - 1.3 mg/dL [facility] Est Glomerular Filtration Rate 111 >=60 mL/min/1. 73 m?? [facility] Comment: This patient's estimated GFR [...] Comment Spec In Lab Anni E Nichole MERINGUER CHEMISTRY ORDERABL ES [facility] [place] [address] * (ABNORMAL) Ferritin (01/10/2024 12:06 PM EST) Ferritin 317(H) 6 - 175 ng/mL [facility] Comment: Please note that as of 10/23/2023, the reference intervals for Ferritin have been updated. Blood 01/10/2024 12:0 6 PM EST 01/10/2024 12:17 PM EST Narrative Resulting Agency Comment Spec In Lab Anni E Nichole MERINGUER CHEMISTRY ORDERABL ES Performing Organization Address City/[facility] Co de Phone Number [facility] [place] [address] * Folate, serum (01/10/2024 12:06 PM EST) Folate 14.5 4.8 - 24.2 ng/mL [facility] Blood 01/10/2024 12:0 6 PM EST 01/10/2024 12:17 PM EST Narrative Resulting Agency Comment Spec In Lab Anni E Canadian MERINGUER CHEMISTRY ORDERABL ES Performing Organization Address [facility] de Phone Number [facility] [place] [address] * (ABNORMAL) Hemogram (01/10/2024 12:06 PM EST) White Blood Cell 5.4 4.0 - 9.5 x10(3)/mc L [facility] Red Blood Cell 3.67(L) 4.00 - 5.21 x10(6)/mc L [facility] Hemoglobin 11.3(L) 11.7 - 15.5 g/dL [facility] Hematocrit 32.8(L) 35.7 - 45.8 % [facility] Mean Cell Volume 89.4 82.6 - 94.4 fL [facility] Mean Cell Hemoglobin 30.8 27.1 - 32.0 pg [facility] Mean Cell Hemoglobin Concentration 34.5 31.7 - 35.0 g/dL [facility] Platelet 291 145 - 357 x10(3)/mc L [facility] RDW Standard Deviation 42.4 37.0 - 46.0 fL [facility] RDW coefficient of variation 12.9 11.5 - 14.1 % [facility] Mean Platelet Volume 9.6 7.6 - 12.9 fL [facility] NRBC% auto 0.0 % [facility] NRBC Absolute 0.000 0.000 - 0.000 x10(3)/mc L [facility] Blood 01/10/2024 12:0 6 PM EST 01/10/2024 12:17 PM EST Narrative Resulting Agency Comment Spec In Lab Anni E Canadian MERINGUER HEMATOLOGY ORDERAB LES Performing Organization Address City/[facility] Co de Phone Number [facility] [place] [address] * (ABNORMAL) Iron and TIBC (01/10/2024 12:06 PM EST) Iron 119 30 - 150 mcg/dL [facility] TIBC 245(L) 250 - 450 mcg/dL [facility] Iron Saturation 49 20 - 50 % [facility] Blood 01/10/2024 12:0 6 PM EST 01/10/2024 12:17 PM EST Narrative Resulting Agency Comment Spec In Lab Anni E Canadian MERINGUER CHEMISTRY ORDERABL ES Performing Organization Address [facility] de Phone Number [facility] [place] [address] * PTH (01/10/2024 12:06 PM EST) Parathyroid Hormone 45 15 - 65 pg/mL [facility] Blood 01/10/2024 12:0 6 PM EST 01/10/2024 12:17 PM EST Narrative Resulting Agency Comment Spec In Lab Anni E Nichole MERINGUER CHEMISTRY ORDERABL ES Performing Organization Address [facility] Co de Phone Number [facility] [place] [address] * Vitamin B1, whole blood (01/10/2024 12:06 PM EST) Vit B1 Lvl Wb (MARCH) 160 70 - 180 nmol/L [facility] Comment: ADDITIONAL INFORMATION This test was developed and its performance characteristics determined by [facility] in a manner consistent with CLIA requirements. This test has not been cleared or approved by the U.S. Food and Drug Administration. Test Performed by: [facility] - [facility] [address] [place] [address] Director Of Resource Development: Erlin Orlando M.D. Ph.D.; CLIA# [id number] Blood 01/10/2024 12:0 6 PM EST 01/10/2024 1:47 PM EST Narrative Resulting Agency Comment Spec In Lab Anni E Canadian MERINGUER LAB SEND OUT ORDER FUNMI Performing Organization Address City/[facility] Co de Phone Number [facility] [place] [address] * Vitamin D, 25-Hydroxy (01/10/2024 12:06 PM EST) Vitamin D Total 25 OH 37 21 - 100 ng/mL [facility] Vit D Interp Sufficient [facility] Blood 01/10/2024 12:0 6 PM EST 01/10/2024 12:17 PM EST Narrative Resulting Agency Comment Spec In Lab Anni E Canadian MERINGUER CHEMISTRY ORDERABL ES Performing Organization Address [facility] Co de Phone Number [facility] [place] [address] * (ABNORMAL) Vitamin B12 (01/10/2024 12:06 PM EST) Vitamin B12 1,314(H) 232 - 1,245 pg/mL [facility] Blood 01/10/2024 12:0 6 PM EST 01/10/2024 12:17 PM EST Narrative Resulting Agency Comment Spec In Lab Anni E Canadian MERINGUER CHEMISTRY ORDERABL ES Performing Organization Address [facility] Co de Phone Number [facility] [place] [address] documented in this encounter Visit Diagnoses Diagnosis S/P gastric bypass Bariatric surgery status Disorder of iron metabolism Other disorders of iron metabolism documented in this encounter Care Teams Graduate Assistant Relationship Specialty Start Date End Date Sree High APRN [address] [facility] [address] [place] [address] PCP - General Family Medicine 12/19/22 documented as of this encounter
--- OUTSIDE RECORDS SUMMARY | 2024-09-02 16:11 | XMS_ITS | Encounter Summary ---
Author Organization [facility] Address [facility] [place] [address] Care Team Providers Care Teller Head Name Role Phone Sree High APRN Primary Care Provider +1- [phone] Encounter Details Date Type Department Care Team ([facility] st Contact Info) Description 04/17/2024 8:30 AM EDT - 04/17/2024 9:00 AM EDT [place] [phone] Iram Borrero MD [facility] [place] [address] EGD WITH BIOPSY (WRVU 2.39) Social History [...] the day after the procedure, use an effn-pix-hijdhze spray to numb your throat. Sucking on [...] occurs, please contact your Doctor. Please call [phone] before 8pm Mon-Fri with problems, questions or concerns. If you call after 8pm or on weekends, call the Hospital at [phone] and ask to speak to the Supervisor Bleach Plant company controller and the digital print operator will contact that person for you. When should you call for help? Call [phone] anytime you think you may need emergency [...] any problems. Where can you learn more? [facility] View your After Visit Summary and more online at [email or web address] If you would like to provide feedback [...] cost to you. Content Version: 12.2 ?? [id number] Spontaneously. Care instructions adapted under license by [facility]. If you have questions about a medical condition or this instruction, always ask your healthcare professional. Spontaneously disclaims any warranty or liability for your [...] Borrero MD - 04/17/2024 8:32 AM EDT [facility] General Surgery History and Physical History of [...] 18.46) performed by Iram Borrero MD at [facility] MAIN OR PRO LAP GASTRIC BYPASS/RENATO-EN-Y N/A 01/10/2023 @LAPAROSCOPIC GASTROPLASTY W/ RENATO-EN-Y CONSTRUCTION (WRVU 29.4) performed by Iram Borrero MDat [facility] MAIN OR PRO LAP, DIAGNOSTIC ABDOMEN N/A 03/22/2023 LAPAROSCOPY, DIAGNOSTIC, ABDOMEN (WRVU 5.14) performed by Iram Borrero MD at [facility] MAIN OR PRO UPPER GI ENDOSCOPY, DIAGNOSTIC N/A 01/10/2023 EGD, UPPER GI ENDOSCOPY performed by Iram Borrero MD at [facility] MAIN OR PRO UPPER GI ENDOSCOPY, DIAGNOSTIC N/A 03/05/2023 EGD, UPPER GI ENDOSCOPY (WRVU 2.09) performed by Iram Borrero MD at [facility] MAIN OR PRO UPPER GI ENDOSCOPY, DIAGNOSTIC N/A 03/20/2023 EGD, UPPER GI ENDOSCOPY (WRVU 2.09) performed by Gerber Salomon MD at [facility] ENDOSCOPY Medications: No current facility-administered [...] Borrero MD General Surgery Minimally Invasive Surgery [phone] documented in this encounter Miscellaneous Notes * Op Note - Iram Borrero MD - 04/17/2024 8:37 AM EDT [facility] Operative Note Patient Name: Leandra Wilks : [id number] MR#: [id number] Case Date: 04/17/2024 Surgeon: Surgeons and Role: [...] psychologist to work on eating behaviors Health Bulk Cooler Installer is sending hand-outs with exercises for [...] 8:45 AM EDT Upper Gi Endoscopy, Biopsy ([id number]) 04/17/2024 8:32 AM EDT Hiatal hernia Gastroesophageal reflux disease, unspecified whether esophagitis present UPPER GI ENDOSCOPY Routine 04/17/2024 7: 57 AM EDT documented in this encounter Results * Surgical Pathology Report (04/17/2024 8:45 AM EDT) Final Diagnosis [id number] ? Location: 4T; [facility]; A The signing pathologist has (i) examined the relevant preparation(s) for the specimen(s) and (ii) rendered or confirmed the diagnosis(es). . ?Surgical Pathology DIAGNOSIS A - Gastric pouch, r/o H Pylori, biopsy (Multiple): - ??Gastric fundic mucosa within normal limits. - ??No H. pylori-like microorganisms are seen. Electronically signed by: ?Geraldine Lawrence MD Verified: ??04/24/2024 7:38 ?? Pathologist Performed at: ??-[facility] [place] Dept. of Pathology, [place] [address] Dental Prosthetist: Geraldine Lawrence MD, FCAP, ??CLIA Certificate: [id number] SPECIMEN(S) SUBMITTED A - gastric pouch, r/o H Pylori, biopsy (Multiple) CLINICAL INFORMATION 44-year-old female, gastric bypass now with upper abdominal pain SPECIMEN PROCESSING A - Labeled/Fixative: Gastric pouch, rule out H. pylori, formalin. Quantity/Size: Two, 0.4 and 0.6 cm. Tissue Description: Soft, mcdonough tissues. Sections/Processi ng: Submitted in toto ??in 1 cassette labeled A1. ??sdy 04/24/2024 7:38 AM EDT [facility] GI Biopsy 04/17/2024 8:45 AM EDT 04/17/2024 8:45 AM EDT Iram Borrero MD PATHOLOGY/CYTOLOGY O MANDY Performing Organization Address [facility] Co de Phone Number [facility] [place] [address] * Specimen to Pathology (04/17/2024 8:45 AM EDT) AP Specimen 04/17/2024 8:45 AM EDT 04/17/2024 8:45 AM EDT Narrative [facility] - 04/17/2024 8:45 AM EDT Specimen requisition ordered. ??Separate Pathology report to follow Iram Borrero MD PATHOLOGY/CYTOLOGY O MANDY Performing Organization Address [facility] Co de Phone Number [facility] [place] [address] * UPPER GI ENDOSCOPY (04/17/2024 7:57 AM EDT) UPPER GI ENDOSCOPY [facility] Endoscopy Procedure Date: 04/17/2024 7:57 AM ? Patient Name: Leandra Wilks ? Date of : 1980 ? Age: 44 ? Order #: [id number] ? Instrument Name: [id number] ? Procedure: ? Upper GI endoscopy Indications: ? Epigastric abdominal pain, ? Dyspepsia, Assessment following ? Renato-en-Y gastrojejunostomy Providers: ? Daryl Ulloa, ? RN, Katherin Woods Referring : ?Sree High Medicines: ? Monitored Anesthesia Care [...] and ? erythema. This was traversed. The lyqsg-rh-hupxehg ? limb was characterized by healthy appearing [...] Procedure Code(s): ? --- Professional --- ? 20759, 52, ? Esophagogastroduoden oscopy, ? flexible, transoral; with biopsy, ? single or multiple Diagnosis Code(s): ? --- Professional --- ? R10.13, Epigastric pain ? K29.70, Gastritis, unspecified, ? without bleeding ? --- Technical --- ? R10.13, Epigastric pain ? K29.70, Gastritis, unspecified, ? without bleeding CPT copyright 2021 [employer]. All rights reserved. The codes documented in this report are preliminary and upon braille coder review may be revised to meet current [...] RN) documented in this encounter Care Teams Teller Head Relationship Specialty Start Date End Date Sree High APRN [address] [place] [address] PCP - General Family Medicine 12/19/22 documented as of this encounter
--- OUTSIDE RECORDS SUMMARY | 2024-09-02 16:11 | XMS_ITS | Encounter Summary ---
Author Organization [facility] Address [facility] [place] [address] Care Team Providers Care Counselor Marriage And Family Name Role Phone Sree High APRN Primary Care Provider +1- [phone] Encounter Details Date Type Department Care Team [...] On track(2021 10:28 AM EST) Jill Colmenares, EXTENSION CLERK Note: Mindfulness/deep breathing practice to reduce cortisol -try for at least 10 minutes a day -try an ap such as headspace I have referred you to our psychologist to work on eating behaviors Health Seed Cone Picker is sending hand-outs with exercises for mindful eating, The Pause/STOP and Urge surfing. Patient will review and try implementing some behaviors before we meet again. movement Lifestyle On track(2021 10:29 AM EST) Jill Colmenares, EXTENSION CLERK Note: Exercise goal is 150 min [...] on filedocumented in this encounter Care Teams Counselor Marriage And Family Relationship Specialty Start Date End Date Sree High, EXTENSION CLERK [address] [place] [address] [address] [facility] [address] [place] [address] PCP - General Family Medicine 12/19/22 documented as of this encounter
--- OUTSIDE RECORDS SUMMARY | 2024-09-02 16:11 | XMS_ITS | Encounter Summary ---
Author Organization [facility] Address [address] [place] [address] Care Team Providers Care Flour Mixer Helper Name Role Phone Gatito Crawford MD Primary Care Provider Unavail able Encounter Details Date Type Department Care Team (Late st Contact Info) Description 07/21/2013 Results Only [facility] Laboratory Services - [facility] ([facility]) [address] [place], [place] [address] Pge Hodges, [facility] [address] [place] [address] [place] [address] Social History Tobacco Use Types [...] ? LEANDRA VELOZ ? Accession #: ? [id number] ? : ? 1980 (Age: 33) ??F ?Collect Date: ? 07/21/2013 ? Location: ? [facility] ? Receive Date: ? 07/22/2013 ? Provider: PEG HODGES [facility] Copy to: LAMAR VALVERDE MD ? [...] types 16,18,31,33,35, 39,45,51,52,56,58, 59,66, and 68 by news camera operator mediated amplification. Comments Document reviewed and electronically signed by: ? System Interface ? Report date: 07/28/2013 By the signature above, the attending physician certifies that he/she has personally conducted a gross and/or microscopic examination of the described specimens and rendered or confirmed the above diagnosis. End of Report [facility] 07/21/2013 07/22/2013 Peg Hodges FLIPPING MACHINE OPERATOR PATHOLOGY ORDERABLES Performing Organization Address City/State/[facility] Co de Phone Number [facility] [address] [place] [address] documented in this encounter Visit Diagnoses Not on filedocumented in this encounter Care Teams Flour Mixer Helper Relationship Specialty Start Date End Date Gatito Crawford MD PCP - General 05/09/09 09/10/13 documented as of this encounter
--- OUTSIDE RECORDS SUMMARY | 2024-09-02 16:11 | XMS_ITS | Encounter Summary ---
Author Organization [facility] Address [facility] [place] [address] Care Team Providers Care Deputy K 9 Name Role Phone Sree High APRN Primary Care Provider +1- [phone] Encounter Details Date Type Department Care Team [...] Scheduled Procedures Name Priority Associated Diagnoses Date/Ti ak COLONOSCOPY, DIAGNOSTIC (WRV U 3.26) Biliary stricture [...] On track(2021 10:28 AM EST) Jill Colmenares, APPLICATION PERFORMANCE ENGINEER Note: Mindfulness/deep breathing practice to reduce cortisol -try for at least 10 minutes a day -try an ap such as headspace I have referred you to our psychologist to work on eating behaviors Health Drywall Foreman is sending hand-outs with exercises for mindful eating, The Pause/STOP and Urge surfing. Patient will review and try implementing some behaviors before we meet again. movement Lifestyle On track(2021 10:29 AM EST) Jill Colmenares, APPLICATION PERFORMANCE ENGINEER Note: Exercise goal is 150 min a [...] filedocumented in this encounter Care Teams Deputy K 9 Relationship Specialty Start Date End Date Sree High, APPLICATION PERFORMANCE ENGINEER [address] [place] [address] [address] [facility] [address] [place] [address] PCP - General Family Medicine 12/19/22 documented as of this encounter
--- OUTSIDE RECORDS SUMMARY | 2024-09-02 16:11 | XMS_ITS | Encounter Summary ---
Author Organization [facility] Address [address] [place] [address] Care Team Providers Care Radar Air Traffic Controller Name Role Phone Gatito Crawford MD Primary Care Provider Unavail able Encounter Details Date Type Department Care Team (Late st Contact Info) Description 01/31/2005 Results Only [facility] [address] [place] [address] [place], [place] [id number] Social History Tobacco Use Types Packs/Day Years [...] ? LEANDRA AREVALO ? Accession #: ? [id number] : ? 1980 (Age: 24) ??F ?Collect [...] CNM PATHOLOGY ORDERABLES [facility] [address] [place] [address] documented in this encounter Visit Diagnoses Not on filedocumented in this encounter Care Teams Radar Air Traffic Controller Relationship Specialty Start Date End Date Gatito Crawford MD PCP - General 05/09/09 09/10/13 documented as of this encounter
--- OUTSIDE RECORDS SUMMARY | 2024-09-02 16:11 | XMS_ITS | Encounter Summary ---
Author Organization [facility] Address [address] [place] [address] Care Team Providers Care Slurry Worker Name Role Phone Gatito Crawford MD Primary Care Provider Unavail able Encounter Details Date Type Department Care Team (Late st Contact Info) Description 12/25/2000 Results Only [facility] - [facility] [address] [place] [address] Peg Hodges, [address] [place] [address] Social History Tobacco Use Types [...] ? LEANDRA AREVALO ? Accession #: ? [id number] : ? 1980 (Age: 20) ??F ?Collect Date: ? 12/25/2000 Location: ? [facility] ? Receive Date: ? 12/27/2000 Provider: ?PEG HODGES FISH AND WILDLIFE TECHNICIAN Copy to: ? Specimen/Source: ?ThinPrep Pap Test, Cervix/Endocervix Last Menstrual Period: ? 12/11/00 ? SPECIMEN ADEQUACY ? Satisfactory for evaluation. GENERAL CATEGORIZATION ? Within Normal Limits ? Document reviewed and electronically signed by: ? Yara Otto [facility](ASCP) ? Report Date: ??12/30/2000 08:09 End of Report [facility] 12/25/2000 12/27/2000 Peg Hodges FISH AND WILDLIFE TECHNICIAN PATHOLOGY ORDERABLES [facility] [address] [place] [address] documented in this encounter Visit Diagnoses Not on filedocumented in this encounter Care Teams Slurry Worker Relationship Specialty Start Date End Date Gatito Crawford MD PCP - General 05/09/09 09/10/13 documented as of this encounter
--- OUTSIDE RECORDS SUMMARY | 2024-09-02 16:11 | XMS_ITS | Encounter Summary ---
Author Organization [facility] Address [facility] [place] [address] Care Team Providers Care Receiving Team Member Name Role Phone Sree High APRN Primary Care Provider +1- [phone] Encounter Details Date Type Department Care Team [...] On track(2021 10:28 AM EST) Jill Colmenares, CARGO BROKER Note: Mindfulness/deep breathing practice to reduce cortisol -try for at least 10 minutes a day -try an ap such as headspace I have referred you to our psychologist to work on eating behaviors Health Rolled Seat Trimmer is sending hand-outs with exercises for mindful eating, The Pause/STOP and Urge surfing. Patient will review and try implementing some behaviors before we meet again. movement Lifestyle On track(2021 10:29 AM EST) Jill Colmenares, CARGO BROKER Note: Exercise goal is 150 min a [...] on filedocumented in this encounter Care Teams Receiving Team Member Relationship Specialty Start Date End Date Sree High, CARGO BROKER [address] [place] [address] [address] [facility] [address] [place] [address] PCP - General Family Medicine 12/19/22 documented as of this encounter
--- OUTSIDE RECORDS SUMMARY | 2024-09-02 16:11 | XMS_ITS | Clinical Summary ---
Author Organization [facility] Address [facility] [place] [address] Care Team Providers Care Photogrammetric Technician Name Role Phone Sree High APRN Primary Care Provider +1- [phone] Allergies No known active allergies Medications Medication [...] 10/25/2014 Irritable bowel syndrome with diarrhea 1 Immunizations Name Administration Dates Next Due Influenza (FluMist) Quadriva lent, Intranasal LIVE 07/30/2012,08/29/2010,09/04/2007 Influenza Quadrivalent with Preservative 013 Influenza Vaccine, Whole 09/04/2007,09/25/2005 Td Adult (Decavac, Tenivac) 02/12/2006 Td Adult (not absorbed) 02/12/2006 Social History Tobacco Use Types Packs/Day [...] B vaccine (0-59 yr s) (1) 1997 Tetanus/Diphtheria/Pertussis Vaccines (1 - Tdap) 02/13/2006 02/12/2006, 02/12/2006 HPV test 2008 PAP Smear 2008 Breast Cancer Share Decision Needed 2018 Breast Cancer screening 2018 Covid-19 Vaccine (1 - 2022-2 4 season) 2024 Influenza (Flu) vaccine (1 o f 1 [...] psychologist to work on eating behaviors Health Cutting Machine Operator Helper is sending hand-outs with exercises for [...] Name Priority Date/Time Associated Diagnosis Comments COMPREHENSIVE METABOLIC PANEL Routine 01/10/2024 12:06 PM EST S/P gastric bypass Disorder of iron metabolism LIPID PANEL (REFLEX DIRECT LDL) Routine 06/07/2021 2:25 PM EDT Fatigue, unspecified type Class 2 severe obesity due to excess calories with serious comorbidity and body mass index (BMI) of 39.0 to 39.9 in adult from Last 3 Months or Most Recently Relevant to Health Maintenance Results * (ABNORMAL) Comprehensive metabolic panel (non-fasting) (01/10/2024 12:06 PM EST) Glucose 82 65 - 199 mg/dL [facility] Comment:Diabetes: >=200 mg/d L plus symptoms Blood Urea Nitrogen 14 8 - 18 mg/dL [facility] Creatinine 0.63(L) 0.70 - 1.20 mg/dL [facility] Sodium 139 135 - 145 mmol/L [facility] Potassium 3.8 3.5 - 5.0 mmol/L [facility] Comment: Please note: ??Patients with WBC >100,000 may have falsely elevated Potassium levels. ??For accurate Potassium quantification in these patients send serum separator tube (gold top) for subsequent determinations. ??Contact the Clinical Chemistry Laboratory if there are any questions. Chloride 104 98 - 107 mmol/L [facility] Carbon Dioxide 28 22 - 31 mmol/L [facility] Anion Gap 7 5 - 15 mmol/L [facility] Calcium 9.2 8.5 - 10.5 mg/dL [facility] Protein, Total 6.6 6.1 - 8.0 g/dL [facility] Albumin 4.4 3.2 - 5.2 g/dL [facility] Aspartate Aminotransferase 30 0 - 30 unit/L [facility] Alanine Aminotransferase 39(H) 0 - 30 unit/L [facility] Alkaline Phosphatase 94 35 - 105 unit/L [facility] Bilirubin, Total 0.6 0.2 - 1.3 mg/dL [facility] Est Glomerular Filtration Rate 111 >=60 mL/min/1. 73 m?? [facility] Comment: This patient's estimated [...] Agency Comment Spec In Lab Anni E Newport MASTER TAX ADVISOR CHEMISTRY ORDERABL ES [facility] [place] [address] * Lipid Panel (Reflex Direct LDL) (06/07/2021 2:25 PM EDT) Cholesterol, Total 173 mg/dL [facility] Comment: Lower Risk: <200 mg/dL Average Risk: 200-239 mg/dL Higher Risk: >qa=491 mg/dL Triglyceride 97 mg/dL [facility] Comment: Average Risk/Lower Risk: <150 mg/dL Borderline High Risk: 150-199 mg/dL High Risk: 200-499 mg/dL Very High Risk: >ek=520 mg/dL HDL Cholesterol 56 mg/dL [facility] Comment: Males: ?? Higher Risk: <40 mg/dL Females: ?? Higher Risk: <50 mg/dL LDL Cholesterol 98 mg/dL [facility] Comment: Lowest Risk: <100 mg/dL Lower Risk: 100-129 mg/dL Borderline High Risk: 130-159 mg/dL High Risk: 160-189 mg/dL Very High Risk: >xr=923 mg/dL Cholesterol/HDL Ratio 3.1 ratio [facility] Lipid Interpretation See Note [facility] Comment: Lipid management should be guided by a patient? s ASCVD risk, goals and preferences. ACC/AHA Guidelines recommend high intensity statin if clinical ASCVD or LDL greater than or equal to 190 mg/dL. http://[employer].com/WQU-IBL-Rleqzvben Adults aged 40-75 with LDL 70-189 mg/dL should have their 10 year ASCVD risk estimated with the ACC/AHA ASCVD risk steel estimator http://tools.acc.org/OAJPH-Bhuq-Goaiqktrb/ Statin should be discussed if risk greater [...] Agency Comment Spec In Lab Jill Farooq MASTER TAX ADVISOR CHEMISTRY ORDERABLES [facility] [place] [address] from Last 3 Months or Most Recently Relevant to Health Maintenance Advance Directives Documents on File Type Date Recorded Patient Build Automation Engineer Expl anation Personal Build Automation Engineer 03/21/2023 10:43 AM Personal Rep Form * [...] Status decision made by: Patient Care Teams Photogrammetric Technician Relationship Specialty Start Date End Date Sree High, MASTER TAX ADVISOR [address] [place] [address] PCP - General Family Medicine 12/19/22
--- OUTSIDE RECORDS SUMMARY | 2024-09-02 16:11 | XMS_ITS | Encounter Summary ---
Author Organization [facility] [place] [address] Care Team Providers Care Automatic Shirring Machine Operator Name Role Phone Sree High APRN Primary Care Provider +1- [phone] Reason for Visit * Physical Therapy (Routine) - Authorized Specialty Diagnoses / Procedures Referred By Chela t Referred To Contact Physical Therapy Diagnoses Dysequilibrium Balance problem Pito Hess PA [facility] [place] [address] [facility] [place] [address] Referral ID Status Reason Start Date Expiration Date Visits Requested Visits Authorized [id number] Authorized Evaluate and Treat 09/24/2023 09/23/2024 30 30 Encounter Details Date Type Department Care Team ([facility] st Contact Info) Description 05/22/2024 12:30 PM EDT Office [place] [phone] Rhianna Summers, PT Vestibular dysfunction, unspecified laterality; Dizziness Social History Tobacco Use Types Packs/Day Years Used Date Smoking Tobacco: Never Smokeless Tobacco: Never Alcohol Use Standard Drinks/Week Comments Not Currently 0 (1 standard drink = 0.6 oz pur e alcohol) [facility] Inpatient Questions Answer Date Recorded Does [...] persist even now. Sitting still is dizzy: 9/10 Things that make it worse: anything really. [...] afraid she's going to fall, also challenging doing[place] [place] shopping, going to the bank Imaging: March [...] roll test positive, null point present? N/a Copen and lean: Not Tested BALANCE TESTING: mCTSIB: [...] Does walking down the aisle of a supermarket increase your problem? Yes 5. Because of [...] more ambitious activities like sports, dancing, or mobility specialist such as sweeping or putting dishes away [...] in a home exercise program Access Code: [email or web address] URL: [email or web address] Date: 05/22/2024 Prepared by: Rhianna Summers Program [...] On track(2021 10:28 AM EST) Jill Colmenares, MECHANICAL ORDNANCE ASSEMBLER Note: Mindfulness/deep breathing practice to reduce cortisol -try for at least 10 minutes a day -try an ap such as headspace I have referred you to our psychologist to work on eating behaviors Health Doper is sending hand-outs with exercises for mindful eating, The Pause/STOP and Urge surfing. Patient will review and try implementing some behaviors before we meet again. movement Lifestyle On track(2021 10:29 AM EST) No Jill Farooq, MECHANICAL ORDNANCE ASSEMBLER Note: Exercise goal is 150 min a [...] giddiness documented in this encounter Care Teams Automatic Shirring Machine Operator Relationship Specialty Start Date End Date Sree High APRN [address] [place] [address] [address] [facility] [address] [place] [address] PCP - General Family Medicine 12/19/22 documented as of this encounter
--- OUTSIDE RECORDS SUMMARY | 2024-09-02 16:11 | XMS_ITS | Encounter Summary ---
Author Organization [facility] [place] [address] Care Team Providers Care Mainframe Systems Programmer Name Role Phone Sree High APRN Primary Care Provider +1- [phone] Encounter Details Date Type Department Care Team (Late st Contact Info) Description 12/20/2023 [place] [phone] Eugenia Styles RN Social History Tobacco Use [...] psychologist to work on eating behaviors Health Geotechnical Department Manager is sending hand-outs with exercises for [...] on filedocumented in this encounter Care Teams Mainframe Systems Programmer Relationship Specialty Start Date End Date Sree High APRN [address] [place] [address] PCP - General Family Medicine 12/19/22 documented as of this encounter
--- OUTSIDE RECORDS SUMMARY | 2024-09-02 16:12 | XMS_ITS | Encounter Summary ---
Author Organization [facility] Address [facility] [place] [address] Care Team Providers Care Revenue Director Name Role Phone Sree High APRN Primary Care Provider +1- [phone] Encounter Details Date Type Department Care Team [...] Scheduled Procedures Name Priority Associated Diagnoses Date/Ti nd COLONOSCOPY, DIAGNOSTIC (WRV U 3.26) Biliary stricture [...] On track(2021 10:28 AM EST) Jill Colmenares, INTELLECTUAL PROPERTY MANAGER Note: Mindfulness/deep breathing practice to reduce cortisol -try for at least 10 minutes a day -try an ap such as headspace I have referred you to our psychologist to work on eating behaviors Health Transfill Technician is sending hand-outs with exercises for mindful eating, The Pause/STOP and Urge surfing. Patient will review and try implementing some behaviors before we meet again. movement Lifestyle On track(2021 10:29 AM EST) Jill Colmenares, INTELLECTUAL PROPERTY MANAGER Note: Exercise goal is 150 min a [...] on filedocumented in this encounter Care Teams Revenue Director Relationship Specialty Start Date End Date Sree High, INTELLECTUAL PROPERTY MANAGER [address] [place] [address] [address] [facility] [address] [place] [address] PCP - General Family Medicine 12/19/22 documented as of this encounter
--- OUTSIDE RECORDS SUMMARY | 2024-09-02 16:12 | XMS_ITS | Encounter Summary ---
Author Organization [facility] Address [facility] [place] [address] Care Team Providers Care Import/Export Clerk Name Role Phone Sree High APRN Primary Care Provider +1- [phone] Reason for Referral * Physical Therapy (Routine) - Authorized Specialty Diagnoses / Procedures Referred By Chela doyle Referred To Contact Physical Therapy Diagnoses Dysequilibrium Balance problem Pito Hess PA [facility] [place] [address] [facility] [place] [address] Referral ID Status Reason Start Date Expiration Date Visits Requested Visits Authorized [id number] Authorized Evaluate and Treat 09/24/2023 09/23/2024 30 30 Reason for Visit * Reason Comments Vertigo Patient reports of o ngoing dizziness for a few months now. She said it never really goes away. She does have loss of balance and has double vision. No issues with ringing in her ears Encounter Details Date Type Department Care Team (Late Contact Info) Description 09/24/2023 2:40 PM EST Office [place] [phone] Pito Hess PA [facility] [place] [address] Dysequilibrium; Balance problem Social History Tobacco Use [...] Hess PA - 09/24/2023 2:40 PM EST [facility] Pito Hess PA-C 09/24/23 3:33 PM [place] [address] Office Patient Name: Leandra Wilks Date of [...] were answered. SELENA Dodge, MS, [place] [address] phone: [phone] documented in this encounter Plan of Treatment [...] psychologist to work on eating behaviors Health Resident Medical Officer is sending hand-outs with exercises for [...] systems documented in this encounter Care Teams Import/Export Clerk Relationship Specialty Start Date End Date Sree High APRN [address] [place] [address] [address] [place] [address] PCP - General Family Medicine 12/19/22 documented as of this encounter
--- OUTSIDE RECORDS SUMMARY | 2024-09-02 16:12 | XMS_ITS | Encounter Summary ---
Author Organization Replaced By [facility] Address [facility] [place] [address] Care Team Providers Care Advanced Manufacturing Consultant Name Role Phone Sree High APRN Primary Care Provider +1- [phone] Encounter Details Date Type Department Care Team (Late st Contact Info) Description 10/23/2023 Telephone [place] [phone] Blaire Escobar RN Social History Tobacco Use [...] for pantoprazole 40mg po BID. Completed via [employer] ([place]var[place]: [id number]). Awaiting response. *Approved through 01/22/24 documented in [...] psychologist to work on eating behaviors Health Count Team Member is sending hand-outs with exercises for mindful [...] on filedocumented in this encounter Care Teams Advanced Manufacturing Consultant Relationship Specialty Start Date End Date Sree High, BRYANNA [address] [place] [address] PCP - General Family Medicine 12/19/22 documented as of this encounter
--- OUTSIDE RECORDS SUMMARY | 2024-09-02 16:12 | XMS_ITS | Encounter Summary ---
Author Organization Formerly [facility] Address [facility] [place] [address] Care Team Providers Care Mud Engineer Name Role Phone Sree High APRN Primary Care Provider [phone]- [phone] Encounter Details Date Type Department Care Team (Late st Contact Info) Description 04/26/2023 2:00 PM EDT Office Visit [place] [address] Vinicio Varela APRN [facility] [place] [address] Blaire Chowdhury, RD [facility] [place] [address] S/P gastric bypass; Disorder of iron metabolism Social History Tobacco Use Types Packs/Day Years Used Date Smoking Tobacco: Never Smokeless Tobacco: Never Alcohol Use Standard Drinks/Week Comments Not Currently 0 (1 standard drink = 0.6 oz pur e alcohol) [facility] Inpatient Questions Answer Date Recorded [...] Patient Instructions * Patient Instructions* Vinicio Varela, MARKET INVESTIGATOR - 04/26/2023 2:00 PM EDT BSP support associate Kelsey [phone] and Lorraine [phone] Dietitians: [phone] Surgeons/ nurse practitioners: [phone] Nurse line: [phone] Dear Leandra, Please see your electronic medical record note from today for details we discussed at your visit. Below is some additional general information that you may find helpful. Testing: It would be helpful if you can have your lab work drawn a couple days before your visit norma [facility] facility so the results are available at the time of your follow up visit. If you have labwork done by your primary child day care center worker before that date, please have a copy sent to the Bariatric Surgery Program. Please call/send my message if you have not heard from us within 2 weeks of having labs work done. Here's the link to [facility] Lab hours and locations: [email or web address] Next visit: Follow up visits are done at 4 months and 12 months after surgery and yearly thereafter. Some patients are evaluated on a more frequent basis. Please call [phone] if you do not receive an appointment [...] Blow dry area on low setting with department of sociology chair. Avoid excessive heat and/or sweating as [...] such as Ibuprofen (Advil), Aleve (Naproxen), Excedrin, Angella[place] should be used sparingly after gastric bypass, [...] Our post surgery support group meets at [facility] on the first Colton of every month from 1:00 PM-2:00 PM. You can attend online or in person. Use the following link to attend online: [email or web address] Nutrition and Activity apps- Baritastic, My Fitness Pal, Lose It, My Plate Internet resources: www.OneEyeAnt wwwCarbolytic Materials www.bariatriceating.Ubiquisys www.imbookin (Pogby).Ubiquisys/blog [facility] facebook page: [email or web address]://[email or web address].[email or web address]ric[facility] Books & Magazines: - Recipes for Life After Weight Loss Surgery by Anupama Gao - Shrink Yourself by Dr Vic Bond - Eating Well - www.V[employer]ut[employer] Networks - Cooking Light- www.cookinglight.Ubiquisys Anxiety: The Happiness Trap by Kemal Figueroa The Mindfulness and acceptance workbook for anxiety By Sukhdev Roe. Mindful eating: What are you Hungry For? By Ender Biggs The Mindful Diet by Any Gibbs and the [facility] group. Emotional eating: End Emotional [...] counselor, best friend, sons Hobbies: likes to [employer] singing Vision at 2 years post-op: Healthier [...] 04/26/23 170.8# 70% 29.3 4 months post-op [place] Body Weight (based on BMI of 25): [...] 04/26/2023 2:00 PM EDT [place] [address] Subjective: Leandra Wilks is s/p laparoscopic Saú[place] [...] intake (stable), no nausea, no recent vomiting. 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 Health Habits: Tobacco: Never. ETOH: [...] chewing well enough. Patient has met with social science research assistant today, please see note for additional [...] If labwork is done by the primary child day care center worker: please send a copy to the Bariatric Surgery Program, General Surgery Clinic, [facility], or fax [phone] documented in this encounter Plan of Treatment Scheduled Procedures Name Priority Associated Diagnoses Date/Ti dc COLONOSCOPY, DIAGNOSTIC (WRV U 3.26) Biliary stricture [...] psychologist to work on eating behaviors Health Biomedical Specialist is sending hand-outs with exercises for mindful eating, The Pause/STOP and Urge surfing. Patient will review and try implementing some behaviors before we meet again. movement Lifestyle On track(2021 10:29 AM EST) Jill Colmenares, MARKET INVESTIGATOR Note: Exercise goal is 150 min a week, just do some walking, even [address] to start Recommend resistance training 3 times a week -can use therabanEmotify Nutrition - 09/26/22 Lifestyle On track(2021 10:29 [...] Vitamin D, 25-Hydroxy (04/26/2023 3:07 PM EDT) Vitamin D Total 25 OH 41 21 - 100 ng/mL [facility] Vit D Interp Sufficient [facility] Blood 04/26/2023 3:07 PM EDT 04/26/2023 3:25 PM EDT Narrative Resulting Agency Comment Spec In Lab Vinicio E Chittenden MARKET INVESTIGATOR CHEMISTRY ORDERABL ES Performing Organization Address [facility]/ZIP Co de Phone Number [facility] [place] [address] * Vitamin B12 (04/26/2023 3:07 PM EDT) Vitamin B12 631 232 - 1,245 pg/mL [facility] Blood 04/26/2023 3:07 PM EDT 04/26/2023 3:25 PM EDT Narrative Resulting Agency Comment Spec In Lab Vinicio E Chittenden MARKET INVESTIGATOR CHEMISTRY ORDERABL ES Performing Organization Address [facility] Co de Phone Number [facility] [place] [address] * Vitamin B1, whole blood (04/26/2023 3:07 PM EDT) Vit B1 Lvl Wb (MARCH) 94 70 - 180 nmol/L [facility] Comment: ADDITIONAL INFORMATION This test was developed and its performance characteristics determined by [facility] in a manner consistent with CLIA requirements. This test has not been cleared or approved by the U.S. Food and Drug Administration. Test Performed by: [facility] - [address] [address] [place]: Erlin Orlando M.D. Ph.D.; CLIA# [id number] Blood 04/26/2023 3:07 PM EDT 04/26/2023 4:15 PM EDT Narrative Resulting Agency Comment Spec In Lab Vinicio E Nichole MARKET INVESTIGATOR LAB SEND OUT ORDER FUNMI Performing Organization Address City/[facility] Co de Phone Number [facility] [place] [address] * PTH (04/26/2023 3:07 PM EDT) Parathyroid Hormone 41 15 - 65 pg/mL [facility] Blood 04/26/2023 3:07 PM EDT 04/26/2023 3:26 PM EDT Narrative Resulting Agency Comment Spec In Lab Vinicio E Chittenden MARKET INVESTIGATOR CHEMISTRY ORDERABL ES Performing Organization Address [facility] Co de Phone Number [facility] [place] [address] * (ABNORMAL) Hemogram (04/26/2023 3:07 PM EDT) White Blood Cell 6.8 4.0 - 9.5 x10(3)/mc L [facility] Red Blood Cell 4.45 4.00 - 5.21 x10(6)/mc L [facility] Hemoglobin 13.2 11.7 - 15.5 g/dL [facility] Hematocrit 38.9 35.7 - 45.8 % [facility] Mean Cell Volume 87.4 82.6 - 94.4 fL [facility] Mean Cell Hemoglobin 29.7 27.1 - 32.0 pg [facility] Mean Cell Hemoglobin Concentration 33.9 31.7 - 35.0 g/dL [facility] Platelet 458(H) 145 - 357 x10(3)/mc L [facility] RDW Standard Deviation 47.7(H) 37.0 - 46.0 fL [facility] RDW coefficient of variation 14.7(H) 11.5 - 14.1 % [facility] Mean Platelet Volume 9.8 7.6 - 12.9 fL [facility] NRBC% auto 0.0 % [facility] NRBC Absolute 0.000 0.000 - 0.000 x10(3)/mc L [facility] Blood 04/26/2023 3:07 PM EDT 04/26/2023 3:25 PM EDT Narrative Resulting Agency Comment Spec In Lab Vinicio E Chittenden MARKET INVESTIGATOR HEMATOLOGY ORDERAB LES Performing Organization Address [facility] Co de Phone Number [facility] [place] [address] * Iron and TIBC (04/26/2023 3:07 PM EDT) Iron 73 30 - 150 mcg/dL [facility] TIBC 287 250 - 450 mcg/dL [facility] Iron Saturation 25 20 - 50 % [facility] Blood 04/26/2023 3:07 PM EDT 04/26/2023 3:25 PM EDT Narrative Resulting Agency Comment Spec In Lab Vinicio E Chittenden MARKET INVESTIGATOR CHEMISTRY ORDERABL ES Performing Organization Address [facility] Co de Phone Number [facility] [place] [address] * Folate, serum (04/26/2023 3:07 PM EDT) Folate 6.8 4.8 - 24.2 ng/mL [facility] Blood 04/26/2023 3:07 PM EDT 04/26/2023 3:25 PM EDT Narrative Resulting Agency Comment Spec In Lab Vinicio E Chittenden MARKET INVESTIGATOR CHEMISTRY ORDERABL ES Performing Organization Address [facility] Co de Phone Number [facility] [place] [address] * (ABNORMAL) Ferritin (04/26/2023 3:07 PM EDT) Ferritin 366(H) 15 - 150 ng/mL [facility] Comment: Pediatric reference ranges not verified at [facility], interpret with caution. Reference ranges for females greater than 50 years of age approach values for men, i.e., 30-400 ng/mL. Blood 04/26/2023 3:07 PM EDT 04/26/2023 3:25 PM EDT Narrative Resulting Agency Comment Spec In Lab Vinicio Jordan Nichole MARKET INVESTIGATOR CHEMISTRY ORDERABL ES [facility] [place] [address] * (ABNORMAL) Comprehensive metabolic panel (non-fasting) (04/26/2023 3:07 PM EDT) Glucose 85 65 - 199 mg/dL [facility] Comment:Diabetes: >=200 mg/d L plus symptoms Blood Urea Nitrogen 8 8 - 18 mg/dL [facility] Creatinine 0.52(L) 0.70 - 1.20 mg/dL [facility] Sodium 140 135 - 145 mmol/L [facility] Potassium 3.0(Criti royal) 3.5 - 5.0 mmol/L [facility] Comment: Called by: ghazal, Read back by: vinicio varela, Date/Time:04/26/23 16:34. Please note: ??Patients with WBC >100,000 may have falsely elevated Potassium levels. ??For accurate Potassium quantification in these patients send serum separator tube (gold top) for subsequent determinations. ??Contact the Clinical Chemistry Laboratory if there are any questions. Chloride 102 98 - 107 mmol/L [facility] Carbon Dioxide 25 22 - 31 mmol/L [facility] Anion Gap 13 5 - 15 mmol/L [facility] Calcium 9.8 8.5 - 10.5 mg/dL [facility] Protein, Total 7.2 6.1 - 8.0 g/dL [facility] Albumin 4.5 3.2 - 5.2 g/dL [facility] Aspartate Aminotransferase 33(H) 0 - 30 unit/L [facility] Alanine Aminotransferase 40(H) 0 - 30 unit/L [facility] Alkaline Phosphatase 120(H) 35 - 105 unit/L [facility] Bilirubin, Total 0.6 0.2 - 1.3 mg/dL [facility] Est Glomerular Filtration Rate 117 >=60 mL/min/1. 73 m?? [facility] Comment: This patient's estimated [...] Comment Spec In Lab Vinicio E Nichole [place] [address] documented in this encounter Visit Diagnoses Diagnosis S/P gastric bypass Bariatric surgery status Disorder of iron metabolism Other disorders of iron metabolism documented in this encounter Care Teams Mud Engineer Relationship Specialty Start Date End Date Sree High APRN [address] [place] [address] [address] [place] [address] PCP - General Family Medicine 12/19/22 documented as of this encounter
--- OUTSIDE RECORDS SUMMARY | 2024-09-02 16:12 | XMS_ITS | Encounter Summary ---
Author Organization Formerly [facility] Address [facility] [place] [address] Care Team Providers Care Research Engineer Name Role Phone Sree High APRN Primary Care Provider +1- [phone] Encounter Details Date Type Department Care Team (Late st Contact Info) Description 05/27/2023 Notes Only [place] [id number] Savanna Dick RN Social History Tobacco Use Types Packs/Day Years Used Date Smoking Tobacco: Never Smokeless Tobacco: Never Alcohol Use Standard Drinks/Week Comments Not Currently 0 (1 standard drink = 0.6 oz pur e alcohol) [facility] Inpatient Questions Answer Date Recorded Does [...] evaluation with CDP, and appointment with ENT. Packing Machine Pilot Can Router has been made aware. documented in this [...] psychologist to work on eating behaviors Health Health Education Director is sending hand-outs with exercises for [...] on filedocumented in this encounter Care Teams Research Engineer Relationship Specialty Start Date End Date Sree High APRN [address] [place] [address] [address] [place] [address] PCP - General Family Medicine 12/19/22 documented as of this encounter
--- OUTSIDE RECORDS SUMMARY | 2024-09-02 16:12 | XMS_ITS | Encounter Summary ---
Author Organization [facility] [place] [address] Care Team Providers Care Unit Aid Name Role Phone Sree High APRN Primary Care Provider +1- [phone] Reason for Visit * Reason Comments Follow-up Encounter Details Date Type Department Care Team ([facility] Contact Info) Description 08/30/2023 2:00 PM EDT Office [place] [address] Anni Varela APRN [facility] [place] [address] Stacey Ly, CHANG [facility] [place] [address] S/P gastric bypass; Disorder of iron metabolism Social History Tobacco Use Types Packs/Day Years Used Date Smoking Tobacco: Never Smokeless Tobacco: Never Alcohol Use Standard Drinks/Week Comments Not Currently 0 (1 standard drink = 0.6 oz pur e alcohol) [facility] Inpatient Questions Answer Date Recorded Does Anyone [...] this encounter Progress Notes * Anni Varela, ABSTRACT MANAGER - 08/30/2023 2:00 PM EDT [place] [address] Reason for visit: Bariatric Surgery follow up [...] denies SOB or cough. GI: as above SUPERVISOR FINAL: s/p hyst. Skin: Endorses redundant skin, no [...] and PCP. Abdominal pain: low abdomen, pending SUPERVISOR FINAL workup, consistent with previous ovarian cyst per patient.No acute exam findings, VSS. Discussed differentials with patient. Reviewed case with Dr. Borrero. Will move forward with further BSP work up if SUPERVISOR FINAL work up is negative. Follow up with [...] ulcers, empty calorie). Patient has met with color drum worker today, please see note for additional details/dietary [...] If labwork is done by the primary nanny caregiver: please send a copy to the Bariatric Surgery Program, General Surgery Clinic, [facility], or fax [phone] * Stacey Ly RD - 08/30/2023 2:00 [...] counselor, best friend, sons Hobbies: likes to Wear My Tags, singing Vision at 2 years post-op: Healthier [...] 08/30/23 138# 109% 23.7 8 mo post-op Vernalis Body Weight (based on BMI of 25): 146# 30-70% Excess Weight Loss: 171-204#; 50% Excess Weight Loss: 187# MEDICATIONS: Vitamin/Mineral Supplements (reported by patient): Pt to get labs drawn after today's visit, supplement recommendations to follow. Supplement Type Brand/Form Dosage/Amount Frequency Comments Multivitamin Bariatric Expert 2 gummies daily Advised pt to switch to Qwiki 1/day MVM, iron level based on lab [...] typical dinner would be 1/4 of a disk grinder s/w. Ptalso states she eats 1/2c-1c pistachios [...] minerals- Bariatric Multivitamin 1 pill per day- [facility] Qwiki, iron level based on labs Calcium citrate [...] psychologist to work on eating behaviors [employer] Plant [employer] is sending hand-outs with exercises for mindful [...] 25 OH 37 21 - 100 ng/mL [facility] Vit D Interp Sufficient [facility] Blood 01/10/2024 12:0 6 PM EST 01/10/2024 12:17 PM EST Narrative Resulting Agency Comment Spec In Lab Anni Varela APRN CHEMISTRY ORDERABL ES [facility] [place] [address] * Vitamin B1, whole blood (01/10/2024 12:06 PM EST) Vit B1 Lvl Wb (MARCH) 160 70 - 180 nmol/L [facility] Comment: ADDITIONAL INFORMATION This test was developed and its performance characteristics determined by [facility] in a manner consistent with CLIA requirements. This test has not been cleared or approved by the U.S. Food and Drug Administration. Test Performed by: [facility] - [address] [address] Virtual Office Assistant: Erlin Orlando M.D. Ph.D.; CLIA# [id number] Blood 01/10/2024 12:0 6 PM EST 01/10/2024 1:47 PM EST Narrative Resulting Agency Comment Spec In Lab Anni E Radford ABSTRACT MANAGER LAB SEND OUT ORDER FUNMI Performing Organization Address [facility] Co de Phone Number [facility] [place] [address] * PTH (01/10/2024 12:06 PM EST) Parathyroid Hormone 45 15 - 65 pg/mL [facility] Blood 01/10/2024 12:0 6 PM EST 01/10/2024 12:17 PM EST Narrative Resulting Agency Comment Spec In Lab Anni E Nichole ABSTRACT MANAGER CHEMISTRY ORDERABL ES Performing Organization Address [facility] Co de Phone Number [facility] [place] [address] * (ABNORMAL) Iron and TIBC (01/10/2024 12:06 PM EST) Iron 119 30 - 150 mcg/dL [facility] TIBC 245(L) 250 - 450 mcg/dL [facility] Iron Saturation 49 20 - 50 % [facility] Blood 01/10/2024 12:0 6 PM EST 01/10/2024 12:17 PM EST Narrative Resulting Agency Comment Spec In Lab Anni E Radford ABSTRACT MANAGER CHEMISTRY ORDERABL ES Performing Organization Address [facility] Co de Phone Number [facility] [place] [address] * (ABNORMAL) Hemogram (01/10/2024 12:06 PM EST) White Blood Cell 5.4 4.0 - 9.5 x10(3)/mc L [facility] Red Blood Cell 3.67(L) 4.00 - 5.21 x10(6)/mc L [facility] Hemoglobin 11.3(L) 11.7 - 15.5 g/dL [facility] Hematocrit 32.8(L) 35.7 - 45.8 % [facility] Mean Cell Volume 89.4 82.6 - 94.4 fL [facility] Mean Cell Hemoglobin 30.8 27.1 - 32.0 pg [facility] Mean Cell Hemoglobin Concentration 34.5 31.7 - 35.0 g/dL [facility] Platelet 291 145 - 357 x10(3)/mc L [facility] RDW Standard Deviation 42.4 37.0 - 46.0 fL [facility] RDW coefficient of variation 12.9 11.5 - 14.1 % [facility] Mean Platelet Volume 9.6 7.6 - 12.9 fL [facility] NRBC% auto 0.0 % [facility] NRBC Absolute 0.000 0.000 - 0.000 x10(3)/mc L [facility] Blood 01/10/2024 12:0 6 PM EST 01/10/2024 12:17 PM EST Narrative Resulting Agency Comment Spec In Lab Anni E Radford ABSTRACT MANAGER HEMATOLOGY ORDERAB LES Performing Organization Address [facility] Co de Phone Number [facility] [address] * Folate, serum (01/10/2024 12:06 PM EST) Folate 14.5 4.8 - 24.2 ng/mL [facility] Blood 01/10/2024 12:0 6 PM EST 01/10/2024 12:17 PM EST Narrative Resulting Agency Comment Spec In Lab Anni E Radford ABSTRACT MANAGER CHEMISTRY ORDERABL ES Performing Organization Address [facility] de Phone Number [facility] [place] [address] * (ABNORMAL) Ferritin (01/10/2024 12:06 PM EST) Ferritin 317(H) 6 - 175 ng/mL [facility] Comment: Please note that as of 10/23/2023, the reference intervals for Ferritin have been updated. Blood 01/10/2024 12:0 6 PM EST 01/10/2024 12:17 PM EST Narrative Resulting Agency Comment Spec In Lab Anni E Radford ABSTRACT MANAGER CHEMISTRY ORDERABL ES Performing Organization Address [facility] Co de Phone Number [facility] [address] * (ABNORMAL) Comprehensive metabolic panel (non-fasting) (01/10/2024 12:06 PM EST) Glucose 82 65 - 199 mg/dL [facility] Comment:Diabetes: >=200 mg/d L plus symptoms Blood Urea Nitrogen 14 8 - 18 mg/dL [facility] Creatinine 0.63(L) 0.70 - 1.20 mg/dL [facility] Sodium 139 135 - 145 mmol/L [facility] Potassium 3.8 3.5 - 5.0 mmol/L [facility] Comment: Please note: ??Patients with WBC >100,000 may have falsely elevated Potassium levels. ??For accurate Potassium quantification in these patients send serum separator tube (gold top) for subsequent determinations. ??Contact the Clinical Chemistry Laboratory if there are any questions. Chloride 104 98 - 107 mmol/L [facility] Carbon Dioxide 28 22 - 31 mmol/L [facility] Anion Gap 7 5 - 15 mmol/L [facility] Calcium 9.2 8.5 - 10.5 mg/dL [facility] Protein, Total 6.6 6.1 - 8.0 g/dL [facility] Albumin 4.4 3.2 - 5.2 g/dL [facility] Aspartate Aminotransferase 30 0 - 30 unit/L [facility] Alanine Aminotransferase 39(H) 0 - 30 unit/L [facility] Alkaline Phosphatase 94 35 - 105 unit/L [facility] Bilirubin, Total 0.6 0.2 - 1.3 mg/dL [facility] Est Glomerular Filtration Rate 111 >=60 mL/min/1. 73 m?? [facility] Comment: This patient's estimated GFR [...] Lab Anni Varela APRN CHEMISTRY ORDERABL ES [facility] [place] [address] documented in this encounter Visit Diagnoses Diagnosis S/P gastric bypass Bariatric surgery status Disorder of iron metabolism Other disorders of iron metabolism documented in this encounter Care Teams Unit Aid Relationship Specialty Start Date End Date Sree High APRN [address] [place] [address] PCP - General Family Medicine 12/19/22 documented as of this encounter
--- OUTSIDE RECORDS SUMMARY | 2024-09-02 16:12 | XMS_ITS | Encounter Summary ---
Author Organization [facility]ly [facility], [facility]–1983 Address [facility] [place] [address] Care Team Providers Care Public Relations Player Name Role Phone Sree High APRN Primary Care Provider +1- [phone] Encounter Details Date Type Department Care Team [...] Scheduled Procedures Name Priority Associated Diagnoses Date/Ti de COLONOSCOPY, DIAGNOSTIC (WRV U 3.26) Biliary stricture [...] On track(2021 10:28 AM EST) Jill Colmenares, EGG TRAYER Note: Mindfulness/deep breathing practice to reduce cortisol -try for at least 10 minutes a day -try an ap such as headspace I have referred you to our psychologist to work on eating behaviors [employer] In[employer] is sending hand-outs with exercises for mindful eating, The Pause/STOP and Urge surfing. Patient will review and try implementing some behaviors before we meet again. movement Lifestyle On track(2021 10:29 AM EST) Jill Colmenares, EGG TRAYER Note: Exercise goal is 150 min a [...] on filedocumented in this encounter Care Teams Public Relations Player Relationship Specialty Start Date End Date Sree High, EGG TRAYER [address] [place] [address] [address] [facility] [address] [place] [address] PCP - General Family Medicine 12/19/22 documented as of this encounter
--- OUTSIDE RECORDS SUMMARY | 2024-09-02 16:12 | XMS_ITS | Encounter Summary ---
Author Organization [facility] [place] [address] Care Team Providers Care Intelligence Specialist Name Role Phone Sree High APRN Primary Care Provider +1- [phone] Encounter Details Date Type Department Care Team ([facility] st Contact Info) Description 10/14/2023 Telephone [place] [phone] Anni Varela APRN [facility] [place] [address] Social History Tobacco Use Types Packs/Day Years Used Date Smoking Tobacco: Never Smokeless Tobacco: Never Alcohol Use Standard Drinks/Week Comments Not Currently 0 (1 standard drink = 0.6 oz pur e alcohol) [facility] Inpatient Questions Answer Date Recorded Does Anyone [...] psychologist to work on eating behaviors [employer] is sending hand-outs with exercises for mindful [...] on filedocumented in this encounter Care Teams Intelligence Specialist Relationship Specialty Start Date End Date Sree High APRN [address] [place] [address] [address] [place] [address] PCP - General Family Medicine 12/19/22 documented as of this encounter
--- OUTSIDE RECORDS SUMMARY | 2024-09-02 16:12 | XMS_ITS | Encounter Summary ---
Author Organization [facility] [place] [address] Care Team Providers Care Cnc Machinist Name Role Phone Sree High APRN Primary Care Provider +1- [phone] Encounter Details Date Type Department Care Team (Latest Contact Info) Description 04/26/2023 3:00 PM EDT Laboratory Appointment Lab [address] [place] [id number] S/P gastric bypass; Disorder of iron metabolism [...] On track(2021 10:28 AM EST) Jill Colmenares, MORPHOLOGY TEACHER Note: Mindfulness/deep breathing practice to reduce cortisol -try for at least 10 minutes a day -try an ap such as headspace I have referred you to our psychologist to work on eating behaviors Health Maintenance [employer] is sending hand-outs with exercises for mindful eating, The Pause/STOP and Urge surfing. Patient will review and try implementing some behaviors before we meet again. movement Lifestyle On track(2021 10:29 AM EST) Jill Colmenares, MORPHOLOGY TEACHER Note: Exercise goal is 150 min a [...] Priority Date/Time Associated Diagnosis Comments PTH Routine 04/26/2023 3:07 PM EDT S/P gastric bypass Disorder of iron metabolism HEMOGRAM Routine 04/26/2023 3:07 PM EDT S/P gastric bypass Disorder of iron metabolism VITAMIN B1, WHOLE BLOOD Routine 04/26/2023 3:07 PM EDT S/P gastric bypass Disorder of iron metabolism IRON AND TIBC Routine 04/26/2023 3:07 PM EDT S/P gastric bypass Disorder of iron metabolism VITAMIN D, 25-HYDROXY Routine 04/26/2023 3:07 PM EDT S/P gastric bypass Disorder of iron metabolism FOLATE, SERUM Routine 04/26/2023 3:07 PM EDT S/P gastric bypass Disorder of iron metabolism FERRITIN Routine 04/26/2023 3:07 PM EDT S/P gastric bypass Disorder of iron metabolism VITAMIN B12 Routine 04/26/2023 3:07 PM EDT S/P gastric bypass Disorder of iron metabolism COMPREHENSIVE METABOLIC PANEL Routine 04/26/2023 3:07 PM EDT S/P gastric bypass Disorder of iron metabolism documented in this encounter Results * (ABNORMAL) Comprehensive metabolic panel (non-fasting) (04/26/2023 3:07 PM EDT) Glucose 85 65 - 199 mg/dL [facility] Comment:Diabetes: >=200 mg/d L plus symptoms Blood Urea Nitrogen 8 8 - 18 mg/dL [facility] Creatinine 0.52(L) 0.70 - 1.20 mg/dL [facility] Sodium 140 135 - 145 mmol/L [facility] Potassium 3.0(Criti royal) 3.5 - 5.0 mmol/L [facility] Comment: Called by: ghazal, Read back by: vinicio varela, Date/Time:04/26/23 16:34. Please note: ??Patients with WBC >100,000 may have falsely elevated Potassium levels. ??For accurate Potassium quantification in these patients send serum separator tube (gold top) for subsequent determinations. ??Contact the Clinical Chemistry Laboratory if there are any questions. Chloride 102 98 - 107 mmol/L [facility] Carbon Dioxide 25 22 - 31 mmol/L [facility] Anion Gap 13 5 - 15 mmol/L [facility] Calcium 9.8 8.5 - 10.5 mg/dL [facility] Protein, Total 7.2 6.1 - 8.0 g/dL [facility] Albumin 4.5 3.2 - 5.2 g/dL [facility] Aspartate Aminotransferase 33(H) 0 - 30 unit/L [facility] Alanine Aminotransferase 40(H) 0 - 30 unit/L [facility] Alkaline Phosphatase 120(H) 35 - 105 unit/L [facility] Bilirubin, Total 0.6 0.2 - 1.3 mg/dL [facility] Est Glomerular Filtration Rate 117 >=60 mL/min/1. 73 m?? [facility] Comment: This patient's estimated GFR [...] Agency Comment Spec In Lab Vinicio Varela MORPHOLOGY TEACHER CHEMISTRY ORDERABL ES [facility] [place] [address] * (ABNORMAL) Ferritin (04/26/2023 3:07 PM EDT) Ferritin 366(H) 15 - 150 ng/mL [facility] Comment: Pediatric reference ranges not verified at [facility], interpret with caution. Reference ranges for females greater than 50 years of age approach values for men, i.e., 30-400 ng/mL. Blood 04/26/2023 3:07 PM EDT 04/26/2023 3:25 PM EDT Narrative Resulting Agency Comment Spec In Lab Vinicio E Nichole MORPHOLOGY TEACHER CHEMISTRY ORDERABL ES Performing Organization Address [facility] Co de Phone Number [facility] [place] [address] * Folate, serum (04/26/2023 3:07 PM EDT) Folate 6.8 4.8 - 24.2 ng/mL [facility] Blood 04/26/2023 3:07 PM EDT 04/26/2023 3:25 PM EDT Narrative Resulting Agency Comment Spec In Lab Vinicio E [place] MORPHOLOGY TEACHER CHEMISTRY ORDERABL ES Performing Organization Address [facility] Co de Phone Number [facility] [place] [address] * Iron and TIBC (04/26/2023 3:07 PM EDT) Iron 73 30 - 150 mcg/dL [facility] TIBC 287 250 - 450 mcg/dL [facility] Iron Saturation 25 20 - 50 % [facility] Blood 04/26/2023 3:07 PM EDT 04/26/2023 3:25 PM EDT Narrative Resulting Agency Comment Spec In Lab Vinicio E Nichole MORPHOLOGY TEACHER CHEMISTRY ORDERABL ES Performing Organization Address [facility] Co de Phone Number [facility] [place] [address] * (ABNORMAL) Hemogram (04/26/2023 3:07 PM EDT) White Blood Cell 6.8 4.0 - 9.5 x10(3)/mc L [facility] Red Blood Cell 4.45 4.00 - 5.21 x10(6)/mc L [facility] Hemoglobin 13.2 11.7 - 15.5 g/dL [facility] Hematocrit 38.9 35.7 - 45.8 % [facility] Mean Cell Volume 87.4 82.6 - 94.4 fL [facility] Mean Cell Hemoglobin 29.7 27.1 - 32.0 pg [facility] Mean Cell Hemoglobin Concentration 33.9 31.7 - 35.0 g/dL [facility] Platelet 458(H) 145 - 357 x10(3)/mc L [facility] RDW Standard Deviation 47.7(H) 37.0 - 46.0 fL [facility] RDW coefficient of variation 14.7(H) 11.5 - 14.1 % [facility] Mean Platelet Volume 9.8 7.6 - 12.9 fL [facility] NRBC% auto 0.0 % [facility] NRBC Absolute 0.000 0.000 - 0.000 x10(3)/ L [facility] Blood 04/26/2023 3:07 PM EDT 04/26/2023 3:25 PM EDT Narrative Resulting Agency Comment Spec In Lab Vinicio E [place] MORPHOLOGY TEACHER HEMATOLOGY ORDERAB LES Performing Organization Address City/[facility] Co de Phone Number [facility] [place] [address] * PTH (04/26/2023 3:07 PM EDT) Parathyroid Hormone 41 15 - 65 pg/mL [facility] Blood 04/26/2023 3:07 PM EDT 04/26/2023 3:26 PM EDT Narrative Resulting Agency Comment Spec In Lab Vinicio E [place] MORPHOLOGY TEACHER CHEMISTRY ORDERABL ES Performing Organization Address City/[facility] Co de Phone Number [facility] [place] [address] * Vitamin B1, whole blood (04/26/2023 3:07 PM EDT) Vit B1 Lvl Wb (MARCH) 94 70 - 180 nmol/L [facility] Comment: ADDITIONAL INFORMATION This test was developed and its performance characteristics determined by [facility] in a manner consistent with CLIA requirements. This test has not been cleared or approved by the U.S. Food and Drug Administration. Test Performed by: [facility] [address] [place] [address] District Ranger: Erlin Orlando M.D. Ph.D.; CLIA# [id number] Blood 04/26/2023 3:07 PM EDT 04/26/2023 4:15 PM EDT Narrative Resulting Agency Comment Spec In Lab Vinicio E [place] MORPHOLOGY TEACHER LAB SEND OUT ORDER FUNMI [facility] [place] [address] * Vitamin B12 (04/26/2023 3:07 PM EDT) [facility] Vitamin B12 631 232 - 1,245 pg/mL [facility] Blood 04/26/2023 3:07 PM EDT 04/26/2023 3:25 PM EDT Narrative Resulting Agency Comment Spec In Lab Vinicio E [place] MORPHOLOGY TEACHER CHEMISTRY ORDERABL ES Performing Organization Address [facility]/ZIP Co de Phone Number [facility] [place] [address] * Vitamin D, 25-Hydroxy (04/26/2023 3:07 PM EDT) Vitamin D Total 25 OH 41 21 - 100 ng/mL [facility] Vit D Interp Sufficient [facility] Blood 04/26/2023 3:07 PM EDT 04/26/2023 3:25 PM EDT Narrative Resulting Agency Comment Spec In Lab Vinicio Yamila Nichole GOULD CHEMISTRY ORDERABL ES [facility] [place] [address] documented in this encounter Visit Diagnoses Diagnosis S/P gastric bypass Bariatric surgery status Disorder of iron metabolism Other disorders of iron metabolism documented in this encounter Care Teams Cnc Machinist Relationship Specialty Start Date End Date Sree High APRN [address] [place] [address] PCP - General Family Medicine 12/19/22 documented as of this encounter
--- OUTSIDE RECORDS SUMMARY | 2024-09-02 16:12 | XMS_ITS | Encounter Summary ---
Author Organization [facility] Address [facility] [place] [address] Care Team Providers Care Business Broker Name Role Phone Sree High APRN Primary Care Provider +1- [phone] Reason for Referral * Diagnostic Test (Routine) - Closed Specialty Diagnoses / Procedures Referred By Chela doyle Referred To Contact Radiology Diagnoses Biliary stricture Procedures MRI Cholangiopancreatography wwo Contrast Sunshine Yen MD [facility] [place] [address] [facility] [address] Referral ID Status Reason Start Date Expiration Date V isits Requested Visits Authorized [id number] Closed Specialty Service Requested 07/23/2023 01/20/2025 1 1 Reason for Visit * Consultation (Routine) - Closed Specialty Diagnoses / Procedures Referred By Chela doyle Referred To Contact Gastroenterology Diagnoses 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, hx of saúl en y gastric bypass dec 2022 Felicia Lee MD [facility] [place] [address] [facility] [address] [place] [address] Referral ID Status Reason Start Date Expiration Date V isits Requested Visits Authorized [id number] Closed Consult, Test & Treat 03/21/2023 03/20/2024 1 1 Encounter Details Date Type Department Care Team (Latest Contact Info) Description 07/23/2023 2:00 PM EDT TH Visit (TeleHealth) [place] [address] Sunshine Yen MD [facility] [place] [address] Biliary stricture; Screening for colon cancer Social History Tobacco Use Types Packs/Day Years Used Date Smoking Tobacco: Never Smokeless Tobacco: Never Alcohol Use Standard Drinks/Week Comments Not Currently 0 (1 standard drink = 0.6 oz pur e alcohol) COUNT INCLUDES THE [facility] Inpatient Questions Answer Date Recorded Does [...] Carpal tunnel release (Bilateral); Lap Gastric Bypass/Saúl-En-Y (22834) (N/A, 01/10/2023); Upper GI Endoscopy, Diagnostic (97896) (N/A, 01/10/2023); Upper GI Endoscopy, Diagnostic (61247) (N/A, 03/05/2023); Upper GI Endoscopy,Diagnostic (86503) (N/A, 03/20/2023); Lap, Diagnostic Abdomen (00433) (N/A, 03/22/2023); and Freeing Bowel Adhesion, Enterolysis (77090) (N/A, 03/22/2023). Family History: Denies family history [...] above investigations. The patient was located in [place] at the time of their visit. @[email or web address]@ [...] single encounter: 40 minutes. Sunshine Yen MD [facility] [place] [address] documented in this encounter Plan of Treatment [...] psychologist to work on eating behaviors Health Tile Machine Operator is sending hand-outs with exercises for mindful eating, The Pause/STOP and Urge surfing. Patient will review and try implementing some behaviors before we meet again. movement Lifestyle On track(2021 10:29 AM EST) Jill Colmenares, SAMPLE TAILOR Note: Exercise goal is 150 min a [...] Contrast (03/23/2024 2:39 PM EDT) WORKSTATION ID [id number] RAD Anatomical Region Laterality Modality Magnetic Resonan [...] staffer that requested your imaging first. ? Narrative [...] care staffer that requested your imaging first. Sunshine Yen MD IMG MRI ORDERABLES documented in this encounter Visit Diagnoses Diagnosis Biliary stricture Obstruction of bile duct Screening for colon cancer Special screening for malignant neoplasms, colon Biliary stricture Obstruction of bile duct documented in this encounter Care Teams Business Broker Relationship Specialty Start Date End Date Sree High, SAMPLE TAILOR [address] [place] [address] PCP - General Family Medicine 12/19/22 documented as of this encounter
--- OUTSIDE RECORDS SUMMARY | 2024-09-02 16:12 | XMS_ITS | Encounter Summary ---
Author Organization [facility] Address [facility] [place] [address] Care Team Providers Care Straight Cutter Machine Name Role Phone Sree High APRN Primary Care Provider +1- [phone] Encounter Details Date Type Department Care Team [...] Scheduled Procedures Name Priority Associated Diagnoses Date/Ti tn COLONOSCOPY, DIAGNOSTIC (WRV U 3.26) Biliary stricture [...] On track(2021 10:28 AM EST) Jill Colmenares, SOLUTIONS EXECUTIVE CLOUD SALES Note: Mindfulness/deep breathing practice to reduce cortisol -try for at least 10 minutes a day -try an ap such as headspace I have referred you to our psychologist to work on eating behaviors Health Product Picker is sending hand-outs with exercises for mindful eating, The Pause/STOP and Urge surfing. Patient will review and try implementing some behaviors before we meet again. movement Lifestyle On track(2021 10:29 AM EST) Jill Colmenares, SOLUTIONS EXECUTIVE CLOUD SALES Note: Exercise goal is 150 min [...] on filedocumented in this encounter Care Teams Straight Cutter Machine Relationship Specialty Start Date End Date Sree High, SOLUTIONS EXECUTIVE CLOUD SALES [address] [place] [address] [address] [facility] [address] [place] [address] PCP - General Family Medicine 12/19/22 documented as of this encounter
--- OUTSIDE RECORDS SUMMARY | 2024-09-02 16:12 | XMS_ITS | Encounter Summary ---
Author Organization [facility] Address [facility] [place] [address] Care Team Providers Care Assistant Service Manager Name Role Phone Sree High APRN Primary Care Provider +1- [phone] Encounter Details Date Type Department Care Team (Late st Contact Info) Description 04/02/2023 Telephone [place] [phone] Loli Valerio, PhD [facility] [place] [address] Social History Tobacco Use Types Packs/Day Years Used Date Smoking Tobacco: Never Smokeless Tobacco: Never Alcohol Use Standard Drinks/Week Comments Not Currently 0 (1 standard drink = 0.6 oz pur e alcohol) [facility] Inpatient Questions Answer Date Recorded Does [...] psychologist to work on eating behaviors Health Group Rooms Coordinator is sending hand-outs with exercises for [...] on filedocumented in this encounter Care Teams Assistant Service Manager Relationship Specialty Start Date End Date Sree High APRN [address] [place] [address] PCP - General Family Medicine 12/19/22 documented as of this encounter
--- OUTSIDE RECORDS SUMMARY | 2024-09-02 16:12 | XMS_ITS | Encounter Summary ---
Author Organization [facility] [place] [address] Care Team Providers Care Cube Machine Tender Name Role Phone Sree High APRN Primary Care Provider +1- [phone] Encounter Details Date Type Department Care Team (Latest Contact Info) Description 08/30/2023 3:30 PM EDT Laboratory Appointment Lab [address] [place] [id number] S/P gastric bypass; Disorder of iron metabolism; [...] On track(2021 10:28 AM EST) Jill Colmenares, ELECTRONIC TECHNOLOGIST Note: Mindfulness/deep breathing practice to reduce cortisol -try for at least 10 minutes a day -try an ap such as headspace I have referred you to our psychologist to work on eating behaviors Health Regional Commercial Sales Manager is sending hand-outs with exercises for mindful eating, The Pause/STOP and Urge surfing. Patient will review and try implementing some behaviors before we meet again. movement Lifestyle On track(2021 10:29 AM EST) Jill Colmenares, ELECTRONIC TECHNOLOGIST Note: Exercise goal is 150 min a [...] Priority Date/Time Associated Diagnosis Comments PTH Routine 08/30/2023 3:36 PM EDT Post-operative nausea and vomiting Status post gastric bypass for obesity BILIRUBIN, DIRECT Routine 08/30/2023 3:3 6 PM EDT HEMOGRAM Routine 08/30/2023 3:36 PM EDT S/P gastric bypass Disorder of iron metabolism VITAMIN B1, WHOLE BLOOD Routine 08/30/2023 3:36 PM EDT S/P gastric bypass Disorder of iron metabolism IRON AND TIBC Routine 08/30/2023 3:36 PM EDT Post-operative nausea and vomiting Status post gastric bypass for obesity VITAMIN D, 25-HYDROXY Routine 08/30/2023 3:36 PM EDT Post-operative nausea and vomiting Status post gastric bypass for obesity PREALBUMIN Routine 08/30/2023 3:36 PM EDT Post-operative nausea and vomiting Status post gastric bypass for obesity FOLATE, SERUM Routine 08/30/2023 3:36 PM EDT Post-operative nausea and vomiting Status post gastric bypass for obesity FERRITIN Routine 08/30/2023 3:36 PM EDT S/P gastric bypass Disorder of iron metabolism VITAMIN B12 Routine 08/30/2023 3:36 PM EDT Post-operative nausea and vomiting Status post gastric bypass for obesity COMPREHENSIVE METABOLIC PANEL Routine 08/30/2023 3:36 PM EDT S/P gastric bypass Disorder of iron metabolism documented in this encounter Results * Bilirubin, Direct (08/30/2023 3:36 PM EDT) Bilirubin, Direct 0.1 0.0 - 0.3 mg/dL [facility] Blood 08/30/2023 3:36 PM EDT 08/30/2023 3:49 PM EDT Narrative Resulting Agency Comment Spec In Lab Sunshine Yen MD CHEMISTRY ORDERABLES [facility] [place] [address] * Folate, serum (08/30/2023 3:36 PM EDT) Folate 10.6 4.8 - 24.2 ng/mL [facility] Blood 08/30/2023 3:36 PM EDT 08/30/2023 3:49 PM EDT Narrative Resulting Agency Comment Spec In Lab Iram Borrero MD CHEMISTRY ORDERABLES Performing Organization Address City/[facility]/ZIP Co de Phone Number [facility] [place] [address] * (ABNORMAL) Iron and TIBC (08/30/2023 3:36 PM EDT) Iron 52 30 - 150 mcg/dL [facility] TIBC 270 250 - 450 mcg/dL [facility] Iron Saturation 19(L) 20 - 50 % [facility] Blood 08/30/2023 3:36 PM EDT 08/30/2023 3:49 PM EDT Narrative Resulting Agency Comment Spec In Lab Iram Borrero MD CHEMISTRY ORDERABLES Performing Organization Address City/[facility]/ZIP Co de Phone Number [facility] [place] [address] * PTH (08/30/2023 3:36 PM EDT) Parathyroid Hormone 46 15 - 65 pg/mL [facility] Blood 08/30/2023 3:36 PM EDT 08/30/2023 3:49 PM EDT Narrative Resulting Agency Comment Spec In Lab Iram Borrero MD CHEMISTRY ORDERABLES Performing Organization Address [facility] Co de Phone Number [facility] [place] [address] * Vitamin D, 25-Hydroxy (08/30/2023 3:36 PM EDT) Vitamin D Total 25 OH 36 21 - 100 ng/mL [facility] Vit D Interp Sufficient [facility] Blood 08/30/2023 3:36 PM EDT 08/30/2023 3:49 PM EDT Narrative Resulting Agency Comment Spec In Lab Iram Borrero MD CHEMISTRY ORDERABLES Performing Organization Address [facility] Co de Phone Number [facility] [place] [address] * Vitamin B12 (08/30/2023 3:36 PM EDT) Vitamin B12 538 232 - 1,245 pg/mL [facility] Blood 08/30/2023 3:36 PM EDT 08/30/2023 3:49 PM EDT Narrative Resulting Agency Comment Spec In Lab Iram Borrero MD CHEMISTRY ORDERABLES Performing Organization Address [facility] Co de Phone Number [facility] [place] [address] * (ABNORMAL) Prealbumin (08/30/2023 3:36 PM EDT) Prealbumin 17(L) 20 - 40 mg/dL [facility] Comment: Prealbumin levels are generally lower in the pediatric population; adult concentrations are usually attained near puberty. Blood 08/30/2023 3:36 PM EDT 08/30/2023 3:49 PM EDT Narrative Resulting Agency Comment Spec In Lab Iram Borrero MD CHEMISTRY ORDERABLES Performing Organization Address City/[facility] Co de Phone Number [facility] [place] [address] * Vitamin B1, whole blood (08/30/2023 3:36 PM EDT) Pathologist [facility] Vit B1 Lvl Wb (MARCH) 85 70 - 180 nmol/L [facility] Comment: ADDITIONAL INFORMATION This test was developed and its performance characteristics determined by [facility] in a manner consistent with CLIA requirements. This test has not been cleared or approved by the U.S. Food and Drug Administration. Test Performed by: [facility] - [address] [address] Aircraft Pilot: Erlin Orlando M.D. Ph.D.; CLIA# [id number] Blood 08/30/2023 3:36 PM EDT 09/02/2023 12:10 PM EDT Narrative Resulting Agency Comment Spec In Lab Anni Varela APRN LAB SEND OUT ORDER FUNMI Performing Organization Address [facility] Co de Phone Number [facility] [place] [address] * (ABNORMAL) Ferritin (08/30/2023 3:36 PM EDT) [facility] Ferritin 277(H) 15 - 150 ng/mL [facility] Comment: Pediatric reference ranges not verified at [facility] interpret with caution. Reference ranges for females greater than 50 years of age approach values for men, i.e., 30-400 ng/mL. Blood 08/30/2023 3:36 PM EDT 08/30/2023 3:49 PM EDT Narrative Resulting Agency Comment Spec In Lab Anni Varela APRN CHEMISTRY ORDERABL ES Performing Organization Address [facility]/ZIP Co de Phone Number [facility] [place] [address] * (ABNORMAL) Comprehensive metabolic panel (non-fasting) (08/30/2023 3:36 PM EDT) Glucose 82 65 - 199 mg/dL [facility] Comment:Diabetes: >=200 mg/d L plus symptoms Blood Urea Nitrogen 16 8 - 18 mg/dL [facility] Creatinine 0.65(L) 0.70 - 1.20 mg/dL [facility] Sodium 140 135 - 145 mmol/L [facility] Potassium 3.3(L) 3.5 - 5.0 mmol/L [facility] Comment: Please note: ??Patients with WBC >100,000 may have falsely elevated Potassium levels. ??For accurate Potassium quantification in these patients send serum separator tube (gold top) for subsequent determinations. ??Contact the Clinical Chemistry Laboratory if there are any questions. Chloride 103 98 - 107 mmol/L [facility] Carbon Dioxide 28 22 - 31 mmol/L [facility] Anion Gap 9 5 - 15 mmol/L [facility] Calcium 9.4 8.5 - 10.5 mg/dL [facility] Protein, Total 6.7 6.1 - 8.0 g/dL [facility] Albumin 4.3 3.2 - 5.2 g/dL [facility] Aspartate Aminotransferase 20 0 - 30 unit/L [facility] Alanine Aminotransferase 24 0 - 30 unit/L [facility] Alkaline Phosphatase 103 35 - 105 unit/L [facility] Bilirubin, Total 0.5 0.2 - 1.3 mg/dL [facility] Est Glomerular Filtration Rate 111 >=60 mL/min/1. 73 m?? [facility] Comment: This patient's estimated [...] Agency Comment Spec In Lab Anni E [place] ELECTRONIC TECHNOLOGIST CHEMISTRY ORDERABL ES [facility] [place] [address] * (ABNORMAL) Hemogram (08/30/2023 3:36 PM EDT) White Blood Cell 8.0 4.0 - 9.5 x10(3)/mc L [facility] Red Blood Cell 4.03 4.00 - 5.21 x10(6)/mc L [facility] Hemoglobin 12.1 11.7 - 15.5 g/dL [facility] Hematocrit 35.4(L) 35.7 - 45.8 % [facility] Mean Cell Volume 87.8 82.6 - 94.4 fL [facility] Mean Cell Hemoglobin 30.0 27.1 - 32.0 pg [facility] Mean Cell Hemoglobin Concentration 34.2 31.7 - 35.0 g/dL [facility] Platelet 334 145 - 357 x10(3)/mc L [facility] RDW Standard Deviation 45.0 37.0 - 46.0 fL [facility] RDW coefficient of variation 14.0 11.5 - 14.1 % [facility] Mean Platelet Volume 10.2 7.6 - 12.9 fL [facility] NRBC% auto 0.0 % [facility] NRBC Absolute 0.000 0.000 - 0.000 x10(3)/mc L [facility] Blood 08/30/2023 3:36 PM EDT 08/30/2023 3:49 PM EDT Narrative Resulting Agency Comment Spec In Lab Anni E [place] ELECTRONIC TECHNOLOGIST HEMATOLOGY ORDERAB LES [facility] [place] [address] documented in this encounter Visit Diagnoses Diagnosis S/P gastric bypass Bariatric surgery status Disorder of iron metabolism Other disorders of iron metabolism Biliary stricture Obstruction of bile duct Post-operative nausea and vomiting Nausea with vomiting Status post gastric bypass for obesity Bariatric surgery status documented in this encounter Care Teams Cube Machine Tender Relationship Specialty Start Date End Date Sree High APRN [address] [place] [address] PCP - General Family Medicine 12/19/22 documented as of this encounter
--- OUTSIDE RECORDS SUMMARY | 2024-09-02 16:12 | XMS_ITS | Encounter Summary ---
Author Organization [facility] Kris [facility] [place] [address] Care Team Providers Care Benefits Processor Name Role Phone Sree High APRN Primary Care Provider +1- [phone] Encounter Details Date Type Department Care Team (Late st Contact Info) Description 04/30/2023 Orders [place] [address] Anni Varela APRN [facility] [place] [address] S/P gastric bypass; Disorder of iron metabolism Social History Tobacco Use Types Packs/Day Years Used Date Smoking Tobacco: Never Smokeless Tobacco: Never Alcohol Use Standard Drinks/Week Comments Not Currently 0 (1 standard drink = 0.6 oz pur e alcohol) [facility] Inpatient Questions Answer Date Recorded Does [...] elevated platelets and low potassium (aswas discussed employer relations representative last week). Results routed to PCP. Follow [...] psychologist to work on eating behaviors Health Vice President Of Nursing is sending hand-outs with exercises for mindful [...] (08/30/2023 3:36 PM EDT) Vit B1 Lvl Wb (MARCH) 85 70 - 180 nmol/L [facility] Comment: ADDITIONAL INFORMATION This test was developed and its performance characteristics determined by [facility] in a manner consistent with CLIA requirements. This test has not been cleared or approved by the U.S. Food and Drug Administration. Test Performed by: [facility] - [address] [address] Narrow Fabric Calenderer: Erlin Orlando M.D. Ph.D.; CLIA# [id number] Blood 08/30/2023 3:36 PM EDT 09/02/2023 12:10 PM EDT Narrative Resulting Agency Comment Spec In Lab Anni Varela APRN LAB SEND OUT ORDER FUNMI [facility] [place] [address] * (ABNORMAL) Ferritin (08/30/2023 3:36 PM EDT) Ferritin 277(H) 15 - 150 ng/mL [facility] Comment: Pediatric reference ranges not verified [place] [facility] interpret with caution. Reference ranges for females greater than 50 years of age approach values for men, i.e., 30-400 ng/mL. Blood 08/30/2023 3:36 PM EDT 08/30/2023 3:49 PM EDT Narrative Resulting Agency Comment Spec In Lab Anni E [place] DISH PERSON CHEMISTRY ORDERABL ES [facility] [place] [address] * (ABNORMAL) Comprehensive metabolic panel (non-fasting) (08/30/2023 3:36 PM EDT) Glucose 82 65 - 199 mg/dL [facility] Comment:Diabetes: >=200 mg/d L plus symptoms Blood Urea Nitrogen 16 8 - 18 mg/dL [facility] Creatinine 0.65(L) 0.70 - 1.20 mg/dL [facility] Sodium 140 135 - 145 mmol/L [facility] Potassium 3.3(L) 3.5 - 5.0 mmol/L [facility] Comment: Please note: ??Patients with WBC >100,000 may have falsely elevated Potassium levels. ??For accurate Potassium quantification in these patients send serum separator tube (gold top) for subsequent determinations. ??Contact the Clinical Chemistry Laboratory if there are any questions. Chloride 103 98 - 107 mmol/L [facility] Carbon Dioxide 28 22 - 31 mmol/L [facility] Anion Gap 9 5 - 15 mmol/L [facility] Calcium 9.4 8.5 - 10.5 mg/dL [facility] Protein, Total 6.7 6.1 - 8.0 g/dL [facility] Albumin 4.3 3.2 - 5.2 g/dL [facility] Aspartate Aminotransferase 20 0 - 30 unit/L [facility] Alanine Aminotransferase 24 0 - 30 unit/L [facility] Alkaline Phosphatase 103 35 - 105 unit/L [facility] Bilirubin, Total 0.5 0.2 - 1.3 mg/dL [facility] Est Glomerular Filtration Rate 111 >=60 mL/min/1. 73 m?? [facility] Comment: This patient's estimated GFR was [...] Agency Comment Spec In Lab Anni E [place] DISH PERSON CHEMISTRY ORDERABL ES [facility] [place] [address] * (ABNORMAL) Hemogram (08/30/2023 3:36 PM EDT) White Blood Cell 8.0 4.0 - 9.5 x10(3)/mc L [facility] Red Blood Cell 4.03 4.00 - 5.21 x10(6)/mc L [facility] Hemoglobin 12.1 11.7 - 15.5 g/dL [facility] Hematocrit 35.4(L) 35.7 - 45.8 % [facility] Mean Cell Volume 87.8 82.6 - 94.4 fL [facility] Mean Cell Hemoglobin 30.0 27.1 - 32.0 pg [facility] Mean Cell Hemoglobin Concentration 34.2 31.7 - 35.0 g/dL [facility] Platelet 334 145 - 357 x10(3)/mc L [facility] RDW Standard Deviation 45.0 37.0 - 46.0 fL [facility] RDW coefficient of variation 14.0 11.5 - 14.1 % [facility] Mean Platelet Volume 10.2 7.6 - 12.9 fL [facility] NRBC% auto 0.0 % [facility] NRBC Absolute 0.000 0.000 - 0.000 x10(3)/mc L [facility] Blood 08/30/2023 3:36 PM EDT 08/30/2023 3:49 PM EDT Narrative Resulting Agency Comment Spec In Lab Anni E [place] DISH PERSON HEMATOLOGY ORDERAB LES [facility] [place] [address] documented in this encounter Visit Diagnoses Diagnosis S/P gastric bypass Bariatric surgery status Disorder of iron metabolism Other disorders of iron metabolism documented in this encounter Care Teams Benefits Processor Relationship Specialty Start Date End Date Sree High APRN [address] [place] [address] PCP - General Family Medicine 12/19/22 documented as of this encounter
--- OUTSIDE RECORDS SUMMARY | 2024-09-02 16:12 | XMS_ITS | Encounter Summary ---
Author Organization [facility] Address [facility] [place] [address] Care Team Providers Care Power Technician Name Role Phone Sree High APRN Primary Care Provider +1- [phone] Reason for Visit * Consultation (Routine) - Closed Specialty Diagnoses / Procedures Referred By Chela doyle Referred To Contact Otolaryngology Diagnoses Dizziness Diplopia Joan Solorzano PA [facility] GENERAL [place] [address] [facility] [place], [place] Otolaryngology [address] [place] [id number] Referral ID Status Reason Start Date Expiration Date V isits Requested Visits Authorized [id number] Closed Consult, Test & Treat 03/29/2023 03/28/2024 1 1 Encounter Details Date Type Department Care Team ([facility] Contact Info) Description 09/24/2023 1:45 PM EST Office Visit Audiology at [address] [address] Anel Frye AUD [facility] [place] [address] Dizziness Social History Tobacco Use Types Packs/Day Years Used Date Smoking Tobacco: Never Smokeless Tobacco: Never Alcohol Use Standard Drinks/Week Comments Not Currently 0 (1 standard drink = 0.6 oz pur e alcohol) [facility] Inpatient Questions Answer Date Recorded Does [...] - 09/24/2023 1:45 PM [place] [address] Leandra Wilks was seen on 09/24/2023 for an audiologic evaluation in conjunction with Pito Hess PA-C in ENT. Please refer to the scanned audiogram listed under Procedures for findings, impressions and recommendations. Danny Mahoney (Kate) [facility] Clinical Colored Liquid Plastic Applier [facility] [phone] documented in this encounter Plan of Treatment [...] psychologist to work on eating behaviors Health Jewelry Making Instructor is sending hand-outs with exercises for [...] giddiness documented in this encounter Care Teams Power Technician Relationship Specialty Start Date End Date Sree High, RN GASTROENTEROLOGY [address] [place] [address] PCP - General Family Medicine 12/19/22 documented as of this encounter
--- OUTSIDE RECORDS SUMMARY | 2024-09-02 16:12 | XMS_ITS | Encounter Summary ---
Author Organization [facility] Address [facility] [place] [address] Care Team Providers Care Blue Print Control Clerk Name Role Phone Sree High APRN Primary Care Provider +1- [phone] Encounter Details Date Type Department Care Team [...] Scheduled Procedures Name Priority Associated Diagnoses Date/Ti in COLONOSCOPY, DIAGNOSTIC (WRV U 3.26) Biliary stricture [...] On track(2021 10:28 AM EST) Jill Colmenares, PHP MYSQL WEB DEVELOPER Note: Mindfulness/deep breathing practice to reduce cortisol -try for at least 10 minutes a day -try an ap such as headspace I have referred you to our psychologist to work on eating behaviors Health School Age Program Teacher is sending hand-outs with exercises for mindful eating, The Pause/STOP and Urge surfing. Patient will review and try implementing some behaviors before we meet again. movement Lifestyle On track(2021 10:29 AM EST) Jill Colmenares, PHP MYSQL WEB DEVELOPER Note: Exercise goal is 150 min [...] on filedocumented in this encounter Care Teams Blue Print Control Clerk Relationship Specialty Start Date End Date Sree High, PHP MYSQL WEB DEVELOPER [address] [place] [address] [address] [facility] [address] [place] [address] PCP - General Family Medicine 12/19/22 documented as of this encounter
--- OUTSIDE RECORDS SUMMARY | 2024-09-02 16:12 | XMS_ITS | Encounter Summary ---
Author Organization [facility] [place] [address] Care Team Providers Care Kettle Cleaner Name Role Phone Sree High APRN Primary Care Provider +1- [phone] Encounter Details Date Type Department Care Team (Late st Contact Info) Description 07/25/2023 Telephone [place] [phone] Aleja Pittman Social History Tobacco Use Types Packs/Day Years Used Date Smoking Tobacco: Never Smokeless Tobacco: Never Alcohol Use Standard Drinks/Week Comments Not Currently 0 (1 standard drink = 0.6 oz pur e alcohol) [facility] Inpatient Questions Answer Date Recorded Does Anyone [...] EDT Called and spoke to patient at [phone], calling to schedule for referral. Appointment has [...] psychologist to work on eating behaviors Health Backing In Machine Tender is sending hand-outs with exercises for mindful [...] on filedocumented in this encounter Care Teams Kettle Cleaner Relationship Specialty Start Date End Date Sree High, BRYANNA [address] [place] [address] PCP - General Family Medicine 12/19/22 documented as of this encounter
--- OUTSIDE RECORDS SUMMARY | 2024-09-02 16:12 | XMS_ITS | Encounter Summary ---
Author Organization [facility] Address [facility] [place] [address] Care Team Providers Care Wood Pile Driver Operator Name Role Phone Sree High APRN Primary Care Provider +1- [phone] Encounter Details Date Type Department Care Team [...] Scheduled Procedures Name Priority Associated Diagnoses Date/Ti md COLONOSCOPY, DIAGNOSTIC (WRV U 3.26) Biliary stricture [...] On track(2021 10:28 AM EST) Jill Colmenares, LABORATORY SECRETARY Note: Mindfulness/deep breathing practice to reduce cortisol -try for at least 10 minutes a day -try an ap such as headspace I have referred you to our psychologist to work on eating behaviors Health Cutter Helper is sending hand-outs with exercises for mindful eating, The Pause/STOP and Urge surfing. Patient will review and try implementing some behaviors before we meet again. movement Lifestyle On track(2021 10:29 AM EST) Jill Colmneares, LABORATORY SECRETARY Note: Exercise goal is 150 min a [...] filedocumented in this encounter Care Teams Wood Pile Driver Operator Relationship Specialty Start Date End Date Sree High, LABORATORY SECRETARY [address] [place] [address] [address] [facility] [address] [place] [address] PCP - General Family Medicine 12/19/22 documented as of this encounter
--- OUTSIDE RECORDS SUMMARY | 2024-09-02 16:12 | XMS_ITS | Encounter Summary ---
Author Organization [facility] Address [facility] [place] [address] Care Team Providers Care Dispatch Clerk Name Role Phone Sree High APRN Primary Care Provider +1- [phone] Encounter Details Date Type Department Care Team (Latest Contact Info) Description 10/22/2023 1:00 PM EST TH Visit (TeleHealth) [place] [address] Anni Varela APRN [facility] [place] [address] Stacey Ly, CHANG [facility] [place] [address] Epigastric pain; S/P gastric bypass Social History Tobacco Use Types Packs/Day Years Used Date Smoking Tobacco: Never Smokeless Tobacco: Never Alcohol Use Standard Drinks/Week Comments Not Currently 0 (1 standard drink = 0.6 oz pur e alcohol) [facility] Inpatient Questions Answer Date Recorded [...] Patient Instructions * Patient Instructions* Anni Varela, SLATE WORKER - 10/22/2023 1:00 PM EST [facility] office support associate Kelsey [phone] and Lorraine [phone] Dietitians: [phone] Surgeons/ nurse practitioners: [phone] Nurse line: [phone] Dear Leandra, Please see your electronic medical record note from today for details we discussed at your visit. Below is some additional general information that you may find helpful. Testing: It would be helpful if you can have your lab work drawn a couple days before your visit norma [facility] facility so the results are available at the time of your follow up visit. If you have labwork done by your primary care management specialist before that date, please have a copy sent to the Bariatric Surgery Program. Please call/send my HeyAnita message if you have not heard from us within 2 weeks of having labs work done. Here's the link to [facility] Lab hours and locations: [email or web address] Next visit: Follow up visits are done at 4 months and 12 months after surgery and yearly thereafter. Some patients are evaluated on a more frequent basis. Please call [phone] if you do not receive an appointment [...] Blow dry area on low setting with family medicine chair. Avoid excessive heat and/or sweating as [...] such as Ibuprofen (Advil), Aleve (Naproxen), Excedrin, Angella-Bend should be used sparingly after gastric bypass, [...] Our post surgery support group meets at [facility] on the first Saturday of every month from 1:00 PM-2:00 PM. You can attend online or in person. Use the following link to attend online: [email or web address] Nutrition and Activity apps- Baritastic, My Fitness Pal, Lose It, My Plate Internet resources: www.Searchdaimon wwwbettercodes.org www.StepOneeaTushky.Blippy Social Commerce www.OneTwoSee.Blippy Social Commerce/blog [facility] facebook page: https://www.facebook.com/[facility]ricSurgery Books & Magazines: - Recipes for Life After Weight Loss Surgery by Anupama Gao - Shrink Yourself by Dr Vic Bond - Eating Well - www.Vaybeewell.Blippy Social Commerce - Cooking Light- www.cookinglight.Blippy Social Commerce Anxiety: The Happiness Trap by Kemal Figueroa The Mindfulness and acceptance workbook for anxiety By Sukhdev Roe. Mindful eating: What are you Hungry For? By Ender Biggs The Mindful Diet by Any Gibbs and the [facility] group. Emotional eating: End Emotional Eating by Blaire Kelly Calming the Emotional Storm Jessren Rodriguez documented in this encounter Progress Notes * Stacey Ly, RD - 10/22/2023 1:00 PM EST Images from the original note were not included[place] [address] BARIATRIC SURGERY VIRTUAL NOTE Reason/purpose for phone [...] to 40 mg BID Further evaluation by Anni Varela APRN Pt is below protein and [...] resistance/prediabetes, kidney stones, Migraine d/o and OA, [facility] Date of Bariatric Surgery: 01/10/23 Type of [...] 125% 21.5 10 mo post-op (per pt) [place] Body Weight (based on BMI of 25): 146# 30-70% Excess Weight Loss: 171-204#; 50% Excess Weight Loss: 187# MEDICATIONS: Vitamin/Mineral Supplements (reported by patient): Supplement Type Brand/Form Dosage/Amount Frequency Comments Multivitamin Jodange with 18 mg iron 1 daily Calcium [...] mineral supplement recommendations. Multivitamin with minerals- continue Jodange w/ 18 mg iron Calcium citrate 500-600 mg with vitamin D twice daily. (2 pills twice per day or 1 chew twice daily) Evaluation by nurse practitioner today. F/u in 2 mo, sooner if requested. * Anni Varela APRN - 10/22/2023 1:00 PM EST Images from the original note were not included. Bariatric Surgery Program [place] [phone] BARIATRIC SURGERY VIRTUAL NOTE Reason/purpose for phone [...] denies SOB or cough. GI: as above. DIMENSION SPECIFICATION INSPECTOR: s/p hyst. Skin: Endorses redundant skin, no [...] upper gi series and clinic visit with MANAGER TERMINAL/MD/RD Reviewed ED precautions. Patient verbalizes understanding. S/p [...] ulcers, empty calorie). Patient has met with disk and tape machine tender today, please see note for additional details/dietary [...] If labwork is done by the primary care management specialist: please send a copy to the Bariatric Surgery Program, General Surgery Clinic, [facility], or fax [phone] documented in this encounter Plan of Treatment [...] psychologist to work on eating behaviors Health Standards Engineer is sending hand-outs with exercises for [...] status documented in this encounter Care Teams Dispatch Clerk Relationship Specialty Start Date End Date Sree High APRN [address] [place] [address] PCP - General Family Medicine 12/19/22 documented as of this encounter
--- OUTSIDE RECORDS SUMMARY | 2024-09-02 16:12 | XMS_ITS | Encounter Summary ---
Author Organization [facility] Address [facility] [place] [address] Care Team Providers Care Drug Abuse Social Worker Name Role Phone Sree High APRN Primary Care Provider +1- [phone] Encounter Details Date Type Department Care Team (Late st Contact Info) Description 10/25/2023 Orders Only [place] [address] Anni Varela DIVISION CHIEF [facility] [place] [address] S/P gastric bypass Social History Tobacco Use [...] psychologist to work on eating behaviors Health Boiler Setter is sending hand-outs with exercises for mindful eating, The Pause/STOP and Urge surfing. Patient will review and try implementing some behaviors before we meet again. movement Lifestyle On track(2021 10:29 AM EST) Jill Colmenares, DIVISION CHIEF Note: Exercise goal is 150 min a [...] Vitamin B12 1,314(H) 232 - 1,245 pg/mL [facility] Blood 01/10/2024 12:0 6 PM EST 01/10/2024 12:17 PM EST Narrative Resulting Agency Comment Spec In Lab Anni E Nichole [facility] CHEMISTRY ORDERABL ES [facility] [place] [phone] documented in this encounter Visit Diagnoses Diagnosis S/P gastric bypass Bariatric surgery status documented in this encounter Care Teams Drug Abuse Social Worker Relationship Specialty Start Date End Date Sree High APRN [address] [place] [address] PCP - General Family Medicine 12/19/22 documented as of this encounter
--- OUTSIDE RECORDS SUMMARY | 2024-09-02 16:13 | XMS_ITS | Encounter Summary ---
Author Organization [facility] Address [facility] [place] [address] Care Team Providers Care Jig Inspector Name Role Phone Sree High APRN Primary Care Provider +1- [phone] Encounter Details Date Type Department Care Team ([facility] st Contact Info) Description 03/22/2023 Interpretation Only Radiology [address] [facility] [place] [id number] Unknown None Social History Tobacco Use Types [...] On track(2021 10:28 AM EST) Jill Colmenares, SALESPERSON SEWING MACHINES Note: Mindfulness/deep breathing practice to reduce cortisol -try for at least 10 minutes a day -try an ap such as headspace I have referred you to our psychologist to work on eating behaviors Health Diver'S Tender is sending hand-outs with exercises for mindful eating, The Pause/STOP and Urge surfing. Patient will review and try implementing some behaviors before we meet again. movement Lifestyle On track(2021 10:29 AM EST) Jill Colmenares, SALESPERSON SEWING MACHINES Note: Exercise goal is 150 min a [...] on filedocumented in this encounter Care Teams Jig Inspector Relationship Specialty Start Date End Date Sree High, BRYANNA [address] [place] [address] PCP - General Family Medicine 12/19/22 documented as of this encounter
--- OUTSIDE RECORDS SUMMARY | 2024-09-02 16:13 | XMS_ITS | Encounter Summary ---
Author Organization [facility] [place] [address] Care Team Providers Care Threat Monitoring Analyst Name Role Phone Sree High APRN Primary Care Provider +1- [phone] Reason for Visit * Auth/Cert (Routine) Specialty Diagnoses / Procedures Referred By Contangelo t Referred To Contact Diagnoses Abdominal pain Procedures ER Iram Wright MD [facility] [place] [address] [facility] Referral ID Status Reason Start Date Expiration Date Visits Re quested Visits Authorized [id number] 1 1 Encounter Details Date Type Department Care Team (Late st Contact Info) Description 03/22/2023 7:26 PM EDT Anesthesia Event [place] [address] Siddharth Coker MD [facility] DR [place] [address] Yasemin Rivera CRNA Anesthesia Record Procedure Summary Procedure Name Responsible [...] x 3 03/22/232006 by Maria Ines Condon, MIKE (RETIRED) Peripheral IV Line - Single Lumen 03/18/23; 1556; basilic vein (medial side of arm), right; [id number] catheter system; 20 gauge; 03/25/23; 1754 03/18/23 1556 by Stacey Ramos RN 03/25/231753 by Raul Muhammad, RN (RETIRED) Peripheral IV Line - Single Lumen 03/19/23; 1536; cephalic vein (lateral side of arm), left; zsri-szf-effleu catheter system; Ultrasound Guidance; Yes - US guidance used but Image NOT saved; 22 gauge, 1 in length, 3/4 in length; Halle Escobar RN VAS; distraction, intradermal injection, tolerated well, appears comfortable; 1; cephalic vein (lateral side of arm), left; 03/25/23; 1754 03/19/23 1536 by Halle Escobar 03/25/231753 by Raul Muhammad, RN ETT Mask Ventilation: Ea shay (1); ETT Type: Cuffed; ETT Size: 7.5 mm; Mac Blade: 3; Notes: Asleep, Pre-O2, Stylette; Attempts: 1; Laryngoscopy Grade: 1; ETT Placement Verified By: Auscultation, Visual, Capnometry; Secured at Teeth: 22 cm; Inserted by: ZACK Rivera; Removal Date: 03/22/23; Removal Time: 201603/22/231941 by Yasemin Rivera CRNA 03/22/232016 by Yasemin [...] Procedure Summary Date: 03/22/23 Room / Location: [facility] OR [address] [place] [address] MAIN OR Anesthesia Start: 1925 Anesthesia Stop: Procedures: LAPAROSCOPY, DIAGNOSTIC, ABDOMEN (WRVU 5.14) (Abdomen) @LYSIS OF ADHESIONS, ABD. 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 Patient Location: PACU/INP Level of Consciousness: Awake and Alert Pain [...] 7:29 PM EDT Pre-Anesthesia Evaluation for: Leandra dunham 43 y.o. female. Procedure(s): LAPAROSCOPY, DIAGNOSTIC, ABDOMEN [...] performed by Iram [facility] MDat [facility] MA[facility] OR ??? PRO UPPER GI ENDOSCOPY, DIAGNOSTIC N/A 01/10/2023 EGD, UPPER GI ENDOSCOPY performed by Iram Borrero MD at [facility] MAIN OR ??? PRO UPPER GI ENDOSCOPY, DIAGNOSTIC N/A 03/05/2023 EGD, UPPER GI ENDOSCOPY (WRVU 2.09) performed by Iram Borrero MD at [facility] MAIN OR ??? PRO UPPER GI ENDOSCOPY, DIAGNOSTIC N/A 03/20/2023 EGD, UPPER GI ENDOSCOPY (WRVU 2.09) performed by Gerber Salomon MD at [facility] ENDOSCOPY Social History Tobacco Use ??? Smoking [...] lb 10.7 oz) Last edited 03/22/231912 by AK Airway Assessment: Mallampati: I TM distance: >3 [...] risks discussed with patient. Plan discussed with ACCOUNTS PAYABLE PAYROLL COORDINATOR. Anesthesia Screening documented in this encounter Plan [...] psychologist to work on eating behaviors Health Extension Service Specialist In Charge is sending hand-outs with exercises for mindful [...] 15 Minutes, PRN, Starting on Sat03/22/23 at 1956, Until Sat03/22/23 at 2232, Anesthesia Intra-op, Routine Given 03/22/2023 7:56 PM EDT 650 mg ceFAZolin (Ancef) 1 g in dextrose 5% 50 mL infusion Intravenous, PRN, Starting on Sat03/22/23 at 195, Until Sat03/22/23 at 2232, Administer over 30 Minutes, Anesthesia Intra-op Given 03/22/2023 7:51 PM EDT 2 g dexAMETHasone (Decadron) injection Intravenous, PRN, Starting on Sat03/22/23 at 5, Until Sat03/22/23 at 2232, Anesthesia Intra-op, Routine Given 03/22/2023 7:55 PM EDT 4 mg fentaNYL (pf) (50 mcg/mL) multi-dose injection Intravenous, PRN, Starting on Sat03/22/23 at 1939, Until Sat03/22/23 at 223, Anesthesia Intra-op, Routine Given 03/22/2023 8:09 PM EDT 50 mcg Given 03/22/2023 7:39 PM EDT 50 mcg ketorolac (Toradol) (30 mg/mL) injection Intravenous, PRN, Starting on Sat03/22/23 at 2010, Until Sat03/22/23 at 223, Anesthesia Intra-op, Routine Given 03/22/2023 8:11 PM EDT 30 mg lactated ringers infusion Intravenous, CONTINUOUS PRN, Starting on Sat03/22/23 at 1926, Until Sat03/22/23 at 223, Anesthesia Intra-op New Bag 03/22/2023 7:26 PM EDT lidocaine (pf) (Xylocaine) (20 mg/mL) 2% injection syringe Intravenous, PRN, Starting on Sat03/22/23 at 1939, Until Sat03/22/23 at 2232, Anesthesia Intra-op, Routine Given 03/22/2023 7:39 PM EDT 50 mg ondansetron (pf) (Zofran) (2 mg/mL) injection Intravenous, PRN, Starting on Sat03/22/23 at 2010, Until Sat03/22/23 at 223, Anesthesia Intra-op, Routine Given 03/22/2023 8:11 PM EDT 4 mg PHENYLephrine in NS (PF) (JERONIMO-SYNEPHRINE) 0.8 mg/10 mL (80 mcg/mL) multi-dose injection Syringe Intravenous, PRN, Starting on Sat03/22/23 at 2001, Until Sat03/22/23 at 2232, Anesthesia Intra-op, Routine Given 03/22/2023 8:02 PM EDT 80 mcg propofoL (Diprivan) 10 mg/mL bolus injection (Anesthesia) Intravenous, PRN, Starting on Sat03/22/23 at 1939, Until Sat03/22/23 at 223, Anesthesia Intra-op Given 03/22/2023 7:39 PM EDT 200 mg rocuronium (Zemuron) (10 mg/mL) multi-dose injection Intravenous, PRN, Starting on Sat03/22/23 at 1939, Until Sat03/22/23 at 223, Anesthesia Intra-op, Routine Given 03/22/2023 7:39 PM EDT 50 mg sugammadex (Bridion) 100 mg/mL injection Intravenous, PRN, Starting on Sat03/22/23 at 2014, Until Sat03/22/23 at 2233, Anesthesia Intra-op, Routine Given 03/22/2023 8:14 PM EDT 200 mg documented in this encounter Care Teams Threat Monitoring Analyst Relationship Specialty Start Date End Date Sree High APRN [address] [place] [address] [address] [place] [address] PCP - General Family Medicine 12/19/22 documented as of this encounter
--- OUTSIDE RECORDS SUMMARY | 2024-09-02 16:13 | XMS_ITS | Encounter Summary ---
Author Organization [facility] [place] [address] Care Team Providers Care Track Moving Machine Operator Name Role Phone Sree High APRN Primary Care Provider [phone] Reason for Referral * Consultation (Routine) - Closed Specialty Diagnoses / Procedures Referred By Contac t Referred To Contact Otolaryngology Diagnoses Dizziness Diplopia Joan Solorzano PA [facility] [place] [address] [facility] Otolaryngology [address] [place] [id number] Referral ID Status Reason Start Date Expiration Date V isits Requested Visits Authorized [id number] Closed Consult, Test & Treat 03/29/2023 03/28/2024 1 1 * Physical Therapy (Routine) - Closed Specialty Diagnoses / Procedures Referred By Contac t Referred To Contact Physical Therapy Diagnoses Dizziness Physical deconditioning Diplopia Joan Solorzano PA [facility] [place] [address] Referral ID Status Reason Start Date Expiration Date V isits Requested Visits Authorized [id number] Closed Evaluate and Treat 03/29/2023 09/25/2023 12 12 Reason for Visit * Reason Comments Emesis Dehydration * Auth/Cert (Routine) Specialty Diagnoses / Procedures Referred By Contac t Referred To Contact Diagnoses Abdominal pain Procedures ER Iram Wright MD [facility] [place] [address] [facility] Referral ID Status Reason Start Date Expiration Date Visits Re quested Visits Authorized [id number] 1 1 Encounter Details Date Type Department Care Team (Latest Contact Info) Description 03/18/2023 3:31 PM EDT - 03/29/2023 12:00 PM EDT Hospital Encounter Surgical Unit Level 3 [place] [phone] Pito Mclaughlin MD [facility] [place] [address] Iram Borrero MD [facility] [place] [address] Protein-calorie malnutrition, unspecified severity; Dizziness; Physical deconditioning; [...] with possibility of toxicity causing symptoms. Clinical swatch paster was consulted who recommended completely stopping Lamictal. [...] who have questions please contact the health adult day care worker that requested your imagingfirst. Electronically signed by: Erlin Castorena DO, [facility] ([phone]), at 03/21/2023 12:49 PM MRI Brain wwo Contrast (Generic) Result Date: 03/24/2023 EXAMINATION: MRI BRAIN WWO CONTRAST (GENERIC), MRI ORBIT WWO CONTRAST CLINICAL HISTORY: Dizziness, non-specific dizziness, diplopia, rule out stroke? (accession [id number]), right eye weakness, diplopia, concern for possible inferior rectus infiltration or inflamation vs. possible optic neuritis (acce ssion [id number]). Right-sided weakness, diplopia, concerning for possible inferior [...] who have questions please contact the health adult day care worker that requested your imaging first. Cholangiopancreatography WO [...] visceral organs, gastrointestinal tract, and vascular structures. Sales Representative Consultant Images: Noncontributory. Inferior thorax: Visualized structures within [...] who have questions please contact the health adult day care worker that requested your imaging first. Electronically signed by: Maximo Forrest DO, [facility] ([phone]), at 03/20/2023 7:59 AM Film Library- Storage [...] non-specific dizziness, diplopia, rule out stroke? (accession [id number]), right eye weakness, diplopia, concern for possible inferior rectus infiltration or inflamation vs. possible optic neuritis (acce ssion [id number]). Right-sided weakness, diplopia, concerning for possible inferior [...] who have questions please contact the health adult day care worker that requested your imaging first. DOC: TELEMETRY [...] who have questions please contact the health adult day care worker that requested your imaging first. Electronically signed by: Poppy Webster MD, [facility] ([phone]), at 03/19/2023 1:29 PM DH OR Endoscopy [...] Valerio, PhD Weight and Wellness at [facility] Arrive at: Home [phone] To view instructions for your video visit, click here, or visit this website: [email or web address] If you have not previously downloaded the [employer] patient portal software, [employer] or the giftee marco a, please do so by clicking [...] Anni Varela APRN General Surgery at [facility] Arrive at: Atmospheric Physicist Area [phone] Future Orders Complete By Expires Referral to [...] home with her at all times. Called [facility] in [place], [place], where she lives. There is vestibular [...] ??? You have a referral to [facility] Ear, Nose and Throat clinic for further evaluation of dizziness. They will call you to scheduled an appointment. ??? A referral has been faxed to [facility] in [facility] for vestibular physical therapy. If you do not hear from them in one week, please call the hospital to follow up on that referral. o Their phone number is . Call Doctor for: ??? Persistent nausea or vomiting ??? Any fevers greater than 101.3 F For questions or concerns during business hours please call the Surgery Clinic at [phone] before 5 PM on weekdays. For questions after hours and on weekends please call the hospital basket bottom machine operator at [phone] and ask for the General Surgery resident credit front office developer. They may not be familiar with your [...] try a Dulcolax suppository. Follow-up: Please call [phone] (clinic number for appointments) to confirm or change the date and time of your appointment. Future Appointments Date Time Provider Department Center 04/02/2023 9:00 AM Loli Valerio, PhD [facility] WEIGHT [facility] 04/26/2023 2:00 PM Anni Varela APRN [facility] SURG [facility] General Instructions None Future Appointments and Orders Future Appointments and Orders Future Appointments Provider Department Dept Phone 04/02/2023 9:00 AM Loli Valerio, PhD Weight and Wellness at [facility] Arrive at: Home [phone] To view instructions for your video visit, click here, or visit this website: [email or web address] If you have not previously downloaded the [employer] patient portal software, [employer] or the [employer] marco a, please do [...] Anni Varela APRN General Surgery at [facility] Arrive at: Atmospheric Physicist Area [phone] Future Orders Complete By Expires Referral to [...] home with her at all times. Called [facility] in [place], [place], where she lives. There is vestibular [...] Surgery Fellow, PGY-6 03/29/23 12:24 PM MISpager [phone] Primary [place] Physician: Sree High, TRAY LINE WORKER [address] / [facility] [id number] documented in this encounter Discharge Instructions * Patient Instructions* Joan Solorzano PA - 03/29/2023 8:17 AM EDT Discharge Instructions You have a referral to [facility] Ear, Nose and Throat clinic for further evaluation of dizziness. They will call you to scheduled an appointment. A referral has been faxed to [facility] in [place] for vestibular physical therapy.If you do not hear from them in one week, please call the hospital to follow up on that referral. Their phone number is . Call Doctor for: Persistent nausea or vomiting Any fevers greater than 101.3 F For questions or concerns during business hours please call the Surgery Clinic at [phone] before 5 PM on weekdays. For questions after hours and on weekends please call the hospital basket bottom machine operator at [phone] and ask for the General Surgery resident credit front office developer. They may not be familiar with your [...] try a Dulcolax suppository. Follow-up: Please call [phone] (clinic number for appointments) to confirm or change the date and time of your appointment. Future Appointments Date Time Provider Department Center 04/02/2023 9:00 AM Loli Valerio, PhD [facility] WEIGHT [facility] 04/26/2023 2:00 PM Anni Varela APRN [facility] SURG [facility] documented in this encounter Medications at Time [...] discharged to home. IV removed, site benign. software integrator remains unchanged from previous assessment. Pt management discussed, pain tolerable. Pt has all belongings and supplies needed. Pt received After Visit Summary and prescriptions, reviewed and patient verbalizes understanding of AVS. All q uestions answered. Pt encouraged to call with questions or concerns. Pt dc'ed to home with family. Pt expressed thanks for care received by this gag writer and [facility] staff during hospitalization. * Cl Goodman RN [...] home with her at all times. Called [facility] in [place], [place], where she lives. There is vestibular [...] TEF ANIYA MARIA L CRAWFORD PT Pager: [phone] Physical Therapy Inpatient Rehabilitation Department * Dick [...] of cessation. She was seen by clinical swatch paster with recommendation to stop Lamicatal altogether. At [...] Bariatric Surgery 12:06 PM 03/28/23 Service pager: [phone] Associated attestation - Iram Borrero MD - [...] Patient voiding to BSC w/ SBA. LBM INSPECTOR WIRE ROPE. Patient sleeping in between care. PLAN MOVING [...] 29.4) performed by Iram Borrero MD at [facility] OR ??? PRO UPPER GI ENDOSCOPY, DIAGNOSTIC N/A 01/10/2023 ?? EGD, UPPER GI ENDOSCOPY performed by Iram Borrero MD at [facility] OR ??? PRO UPPER GI ENDOSCOPY, DIAGNOSTIC N/A 03/05/2023 ?? EGD, UPPER GI ENDOSCOPY (WRVU 2.09) performed by Iram Borrero MD at [facility] OR ?? Active Non-Hospital Problems ?? [...] to be determined Anticipated Discharge Disposition: [facility] rehabilitation facility Daily schedule / Staff Recommendations: [...] Occupational Therapy: 33 (SCHM X1 TAF X1 (7178-6547)) Pager: [phone] Pito Baltazar, OT 03/27/2023 Occupational Therapy Rehabilitation Department * Herman Viramontes, INSPECTOR WIRE ROPE - 03/27/2023 10:20 AM EDT Physical Therapy [...] TE-F x 2 HERMAN VIRAMONTES PTA Pager: [phone] Physical Therapy Inpatient Rehabilitation Department * Joan [...] into home apartment ?? Seen by clinical swatch paster yesterday w/ recommendation to stop Lamictal altogether [...] of cessation. She was seen by clinical swatch paster yesterday with recommendation to stop Lamicatal altogether. [...] Bariatric Surgery 9:10 AM 03/27/23 Service pager: [phone] Associated attestation - Iram Borrero MD - [...] Patient voiding to BSC w/ SBA. LBM station captain. Patient sleeping in between care. PLAN [...] BILIDIR 0.4 (H) 03/20/2023 CRP 4.5 03/26/2023 [id number] 139 12/18/2022 [id number] 612 03/21/2023 25OHVITD 34 03/26/2023 SFOLATE 4.0 [...] of this encounter: 78.5 kg (173 lb). [place] Body Weight (IBW) (kg): 54.55 Usual Body [...] to continue to follow up while inpatient [address] * Pito Baltazar, OT - [...] 29.4) performed by Iram Borrero MD at [facility] ??? PRO UPPER GI ENDOSCOPY, DIAGNOSTIC N/A 01/10/2023 ?? EGD, UPPER GI ENDOSCOPY performed by Iram Borrero MD at [facility] ??? PRO UPPER GI ENDOSCOPY, DIAGNOSTIC N/A 03/05/2023 ?? EGD, UPPER GI ENDOSCOPY (WRVU 2.09) performed by Iram Borrero MD at [facility] ?? Active Non-Hospital Problems ?? [...] Occupational Therapy: 45 (SCHM X1 TAF X2 (5196-4644)) Pager: [phone] Pito Baltazar, OT 03/26/2023 Occupational Therapy Rehabilitation [...] Flexor digitorum profundus Digit II-V flexion / lockstitch binder 5 5 L2-3 Iliopsoas Hip flexion 5 [...] who have questions please contact the health adult day care worker that requested your imaging first. Electronically signed by: Poppy Webster MD, [facility] ([phone]), at 03/19/2023 1:29 PM MRI Cholangiopancreatography WO [...] who have questions please contact the health adult day care worker that requested your imaging first. Head wo Contrast (Generic) (Exam End: 03/21/2023 12:34 PM) Impression Normal brain CT. Thank you for letting us participate in the care of this patient. If you are a health care provider and have any questions regarding this report, please contact the number below. For patients who have questions please contact the health adult day care worker that requested your imaging first. Orbit wwo Contrast (Exam End: 03/24/2023 11:16 AM) Impression 1. Normal brain. 2. Normal orbits. Thank you for letting us participate in the care of this patient. If you are a health care provider and have any questions regarding this report, please contact the number below. For patients who have questions please contact the health adult day care worker that requested your imaging first. Brain wwo Contrast (Generic) (Exam End: 03/24/2023 11:16 AM) Impression 1. Normal brain. 2. Normal orbits. Thank you for letting us participate in the care of this patient. If you are a health care provider and have any questions regarding this report, please contact the number below. For patients who have questions please contact the health adult day care worker that requested your imaging first. Orthostatics blood [...] management). ?? Continue high-dose thiamine. Neurology Consult #[id number] Caron Conde MD Neurology PGY3 03/26/2023 Associated attestation - Darinel Flores MD - 04/05/2023 8:38 AM EDT Neurology Attending Note Darinel Flores MD PhD (pager [phone]) I have seen and examined Leandra Wilks [...] Bariatric Surgery 11:56 AM 03/26/23 Service pager: [phone] Continue holding lamictal per discussion with Dr. [...] timing of restarting lamictal. Recommended discussionwith clinical swatch paster to determine if continued holding of medication would be of benefit. Would not recommend any more invasive evaluation at this time. If symptoms persist, could consider ENT evaluation but does not require continued inpatient treatment/observation. Discussed non-urgent case with clinical swatch paster who will evaluate patient. Lamictal level ordered. Continue supportive care. Dispo: acute rehab recommended by PT at this time, pending placement Natalee Winn MD 03/26/23 1:35 PM MISpager [phone] * Candelaria Fish RN - 03/26/2023 4:42 [...] 18.46) performed by Iram Borrero MD at [facility] ??? PRO LAP GASTRIC BYPASS/RENATO-EN-Y N/A 01/10/2023 @LAPAROSCOPIC GASTROPLASTY W/ RENATO-EN-Y CONSTRUCTION (WRVU 29.4) performed by Iram Borrero MDat [facility] ??? PRO LAP, DIAGNOSTIC ABDOMEN N/A 03/22/2023 LAPAROSCOPY, DIAGNOSTIC, ABDOMEN (WRVU 5.14) performed by Iram Borrero MD at [facility] ??? PRO UPPER GI ENDOSCOPY, DIAGNOSTIC N/A 01/10/2023 EGD, UPPER GI ENDOSCOPY performed by Iram Borrero MD at [facility] ??? PRO UPPER GI ENDOSCOPY, DIAGNOSTIC N/A 03/05/2023 EGD, UPPER GI ENDOSCOPY (WRVU 2.09) performed by Iram Borrero MD at [facility] ??? PRO UPPER GI ENDOSCOPY, DIAGNOSTIC N/A 03/20/2023 EGD, UPPER GI ENDOSCOPY (WRVU 2.09) performed by Gerber Salomon MD at [facility] ENDOSCOPY Active Non-Hospital Problems Diagnosis ? [...] exercises in horizontal and vertical and provided [facility] HEP Education: patient has been educated [...] EVAL LOW COMPLEXITY) Felicia Oneal PT Pager: [phone] Physical Therapy Inpatient Rehabilitation Department * Eva [...] L Elbow flexion 5/5 R, 5/5 L Pharmaceutical Specialty Representative LE: 5/5 R, 5/5 L Hip flexion [...] who have questions please contact the health adult day care worker that requested your imaging first. Electronically signed by: Poppy Webster MD, [facility] ([phone]), at 03/19/2023 1:29 PM MRI Cholangiopancreatography WO [...] who have questions please contact the health adult day care worker that requested your imaging first. Electronically signed by: Maximo Forrest DO, [facility] ([phone]), at 03/20/2023 7:[address] Head wo Contrast (Generic) (Exam End: 03/21/2023 12:34 PM) Impression Normal brain CT. Thank you for letting us participate in the care of this patient. If you are a health care provider and have any questions regarding this report, please contact the number below. For patients who have questions please contact the health adult day care worker that requested your imaging first. Electronically signed by: Erlin Castorena DO, [facility] ([phone]), at 03/21/2023 12:49 PM MRI Orbit wwo Contrast (Exam End: 03/24/2023 11:16 AM) Impression 1. Normal brain. 2. Normal orbits. Thank you for letting us participate in the care of this patient. If you are a health care provider and have any questions regarding this report, please contact the number below. For patients who have questions please contact the health adult day care worker that requested your imaging first. Brain wwo Contrast (Generic) (Exam End: 03/24/2023 11:16 AM) Impression 1. Normal brain. 2. Normal orbits. Thank you for letting us participate in the care of this patient. If you are a health care provider and have any questions regarding this report, please contact the number below. For patients who have questions please contact the health adult day care worker that requested your imaging first. Assessment and [...] continue meclizine 25mg TID PRN Eva Kapoor [facility] Medical Student 03/25/23 Associated attestation - Darinel [...] Flexor digitorum profundus Digit II-V flexion / lockstitch binder 5 5 L2-3 Iliopsoas Hip flexion 5 [...] who have questions please contact the health adult day care worker that requested your imaging first. Electronically signed by: Poppy Webster MD, [facility] ([phone]), at 03/19/2023 1:29 PM MRI Cholangiopancreatography WO [...] who have questions please contact the health adult day care worker that requested your imaging first. Electronically signed by: Maximo Forrest DO, [facility] ([phone]), at 03/20/2023 7:[address] Head wo Contrast (Generic) (Exam End: 03/21/2023 12:34 PM) Impression Normal brain CT. Thank you for letting us participate in the care of this patient. If you are a health care provider and have any questions regarding this report, please contact the number below. For patients who have questions please contact the health adult day care worker that requested your imaging first. Electronically signed by: Erlin Castorena DO, [facility] ([phone]), at 03/21/2023 12:49 PM MRI Orbit wwo Contrast (Exam End: 03/24/2023 11:16 AM) Impression 1. Normal brain. 2. Normal orbits. Thank you for letting us participate in the care of this patient. If you are a health care provider and have any questions regarding this report, please contact the number below. For patients who have questions please contact the health adult day care worker that requested your imaging first. Brain wwo Contrast (Generic) (Exam End: 03/24/2023 11:16 AM) Impression 1. Normal brain. 2. Normal orbits. Thank you for letting us participate in the care of this patient. If you are a health care provider and have any questions regarding this report, please contact the number below. For patients who have questions please contact the health adult day care worker that requested your imaging first. Orthostatics blood [...] resolve. ?? Continue high-dose thiamine. Neurology Consult #[id number] Caron Conde MD Neurology Resident PGY3 03/25/2023 Associated attestation - Darinel Flores MD - 03/27/2023 10:00 AM EDT Neurology Attending Note Darinel Flores MD PhD (pager [phone]) I have seen and examined Leadnra Wilks on March 25, 2023 with resident [...] advanced to dysphagia soft. Abdominal lap sites SILK PRESSER. Patient voiding to BSC w/ SBA FWW. [...] and PRNmedications, see MAR. Abdominal lap sites ELLEN. Patient voiding to [...] and PRNmedications, see MAR. Abdominal lap sites SILK PRESSER. Patient voiding to BSC w/ SBA FWW. [...] does report on goingdizziness. Lap sites dermabounded ELLEN. LR @ 100. VSS on RA. Denies [...] 29.4) performed by Iram Borrero MD at [facility] OR ??? PRO UPPER GI ENDOSCOPY, DIAGNOSTIC N/A 01/10/2023 ?? EGD, UPPER GI ENDOSCOPY performed by Iram Borrero MD at [facility] OR ??? PRO UPPER GI ENDOSCOPY, DIAGNOSTIC N/A 03/05/2023 ?? EGD, UPPER GI ENDOSCOPY (WRVU 2.09) performed by Iram Borrero MD at [facility] OR ?? Active Non-Hospital Problems ?? Diagnosis [...] Total Minutes, Occupational Therapy: 23 (TAF X2 (4925-3114)) Pager: [phone] Pito Baltazar OT 03/22/2023 Occupational Therapy Rehabilitation Department * Ana Condon RN - 03/22/2023 4:30 AM EDT Pt A&Ox4. VSS. Patient tolerated two orange english ice and crackers prior to being NPO [...] 29.4) performed by Iram Borrero MD at [facility] OR ??? PRO UPPER GI ENDOSCOPY, DIAGNOSTIC N/A 01/10/2023 ?? EGD, UPPER GI ENDOSCOPY performed by Iram Borrero MD at [facility] OR ??? PRO UPPER GI ENDOSCOPY, DIAGNOSTIC N/A 03/05/2023 ?? EGD, UPPER GI ENDOSCOPY (WRVU 2.09) performed by Iram Borrero MD at [facility] OR ?? Active Non-Hospital Problems ?? Diagnosis [...] 1-3 times/wk Total Minutes, Occupational Therapy: 42 ([facility] X3 (5923-2824)) Pager: [phone] Pito Baltazar, OT 03/21/2023 Occupational Therapy Rehabilitation [...] who have questions please contact the health adult day care worker that requested your imaging first. Electronically signed by: Maximo Forrest DO, [facility] ([phone]), at 03/20/2023 7:59 AM Lab Results Component [...] Adair Winn MD 03/20/23 9:01 AM MISpager [phone] Associated attestation - Iram Borrero MD - [...] MD - 03/18/2023 4:04 PM EDT [facility] Department of Minimally Invasive Surgery Admission History [...] and was advised to present to [facility] for further evaluation by the surgery team. [...] (WRVU 29.4) performed by [facility]ram [facility]ro MDat [facility] ??? PRO UPPER GI ENDOSCOPY, DIAGNOSTIC N/A 01/10/2023 EGD, UPPER GI ENDOSCOPY performed by Iram Borrero MD at [facility] ??? PRO UPPER GI ENDOSCOPY, DIAGNOSTIC N/A 03/05/2023 EGD, UPPER GI ENDOSCOPY (WRVU 2.09) performed by Iram Borrero MD at [facility] HOME MEDICATIONS: No current [...] for this visit on 03/18/23. IMPRESSION: Leandra Wilsk is a 43 y.o. female with medical [...] and was recommended to come to [facility]. Here she reports that she isn't eating [...] and care of pt received from Stacey MKCEON. Pt A&Ox4, resting quietly in bed. Pt [...] supposed to have EGD this morning at [facility] but was unable to tolerate [...] Internal Medicine PGY-1 03/18/23 4:56 PM Pager #[phone] Swathi Day MD Resident 03/18/23 [id number] Associated attestation - Pito Mclaughlin MD - [...] Abdominal labs ordered. 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 NO known head trauma. H/o ear infections [...] 18.46) performed by Iram Borrero MD at [facility] OR ??? PRO LAP GASTRIC BYPASS/RENATO-EN-Y N/A 01/10/2023 @LAPAROSCOPIC GASTROPLASTY W/ RENATO-EN-Y CONSTRUCTION (WRVU 29.4) performed by Iram Borrero MDat [facility] OR ??? PRO LAP, DIAGNOSTIC ABDOMEN N/A 03/22/2023 LAPAROSCOPY, DIAGNOSTIC, ABDOMEN (WRVU 5.14) performed by Iram Borrero MD at [facility] OR ??? PRO UPPER GI ENDOSCOPY, DIAGNOSTIC N/A 01/10/2023 EGD, UPPER GI ENDOSCOPY performed by Iram Borrero MD at [facility] OR ??? PRO UPPER GI ENDOSCOPY, DIAGNOSTIC N/A 03/05/2023 EGD, UPPER GI ENDOSCOPY (WRVU 2.09) performed by Iram Borrero MD at [facility] OR ??? PRO UPPER GI ENDOSCOPY, DIAGNOSTIC N/A 03/20/2023 EGD, UPPER GI ENDOSCOPY (WRVU 2.09) performed by Gerber Salomon MD at [facility] Medications: Current Facility-Administered Medications Ordered [...] mg 10 mg Intravenous Q6H PRN Natalee iWnn MD 10 mg at 03/20/23 0854 ??? glucose (Glutose) 40% oral geL 15-30 g of glucose Buccal Q30 Min PRN Natalee Winn MD Or ??? dextrose 10% infusion 250 mL Intravenous Q30 Min PRN Natalee Winn MD Or ??? glucagon (Glucagen) (1 mg/mL) injection solution 1 mg 1 mg Intramuscular Q30 Min PRN Natalee Winn MD No current [facility]-ordered outpatient medications on file. Prior To [...] ERIN 5 months ago, Dr. Ramirez in [place], [place] Near with +2.00 LL Tonometry (iCare, 2:36 PM) Right Left Pressure 13 12 Pupils Dark Light Shape APD Right 4 2 Round None Left 4 2 Round None Visual Stovall Left Right Full Full Extraocular Movement Right Left Full, Ortho, Nystagmus Full, Ortho, Nystagmus Neuro/Psych Mood/Affect: Apathetic Strabismus Exam Method: Alternate Cover, Cover-Uncover Correction: nd Observations: Ortho Distance Near Near +3DS N [...] Nystagmus/Oscillopsia: DDx includes medications, inner ear conditions, LOFT PATTERNMAKER disease in absence of any reported h/o [...] discharge planning needs. ?? provide the [facility], Office of Care Management letter from the Hoisting Engineer pertaining to rehabreferrals. ?? provide a letter describing our affiliations within the [facility] and educate about their right to choose where referrals are sent. ?? provide the CMS Star Quality Rating handout. ?? review the different levels of rehab including SNF, swing, and acute. ?? provide a list of facilities within their preferred geographic area. ?? request that they provide at least three choices for referral. They have requested referrals to: [facility] [place] [facility] ([facility]) ([facility]) [address] [place] [address] (Accepts pts only after exhausting all other local SNF options Only pts from their area with PCP at the Hospital Maximum rehab stay of 5 days) [facility] ([facility]) [address] [place] [phone] [facility] [address] [place] [address] Note routed to a Bung Dropper who will communicate referrals to facilities and provide any required information. Addendum: Call placed to [facility], no beds, [facility] [place] [facility] no beds, [facility]. * Consult Note - Jessica Haywood [facility] - 03/27/2023 10:40 AM EDT KATE (Behavioral Intervention Team) KATE [facility] stopped to see this patient today. She [...] this admission for support. Jessica Haywood MA, [facility] - KATE (Behavioral Intervention Team) Dept. of Psychiatry - Inpatient Psych. Services Pager: [phone] * Consult Note - Maximo Moreno MD [...] after last reduced dose). Relevant drugs in [facility] active today: include Fluoxetine 20 mg po [...] improved her double vision. According to the log pond worker's information, lamotrigine (uma at higher doses) can [...] was reduced. I am available on pager [phone] if I can help further. This is definitely a challenging case, but I think it is likely that the lamotrigine is contributing or causing to the nystagmus and double vision,and possibly contributing to the nausea and vomiting that patient has had as well. Maximo Moreno MD Pager [phone] * Care Management - Corey Wick RN [...] discharge planning needs. ?? provide the [facility], Office of Care Management letter from the Hoisting Engineer pertaining to rehabreferrals. ?? provide a letter describing our affiliations within the [facility] and educate about their right to choose where referrals are sent. ?? provide the CMS Star Quality Rating handout. ?? review the different levels of rehab including SNF, swing, and acute. ?? provide a list of facilities within their preferred geographic area. ?? request that they provide at least three choices for referral. They have requested referrals to: [facility] [address], [place] [address] [facility] Acute Rehabilitation and Sub-Acute (Swing) Rehab Levels of Care [address] [place] [address] Note routed to a Bung Dropper who will communicate referrals to facilities and [...] 2 choices and made pt aware that [place] only had 2, [facility] and [facility]. Pt agreed to placing both. Anticipated Date of Discharge: 03/29/2023 Isak STEPHENS, RN CM Case Management [phone] * Consult Note - Jessica Haywood [facility] - 03/25/2023 10:40 AM EDT BIT Evaluation [...] to varying degrees since her original surgery. [facility] encouraged patient to discuss stressors [...] treatment. Interventions delivered: Supportive therapy Plan: 1. [facility] to continue to follow for support during admission 2. Recommend patient continue with her established outpatient mental health counseling Time spent with the patient (min):15 minutes Time spent on case coordination (min): 10 minutes Jessica Haywood MA, [facility] - BIT (Behavioral Intervention Team) Dept. of Psychiatry - Inpatient Psych. Services Pager: [phone] * Consult Note - Fernando Giles MD [...] [facility] She states that she continues to have [...] and normal rhythm ?? Language: fluent in french, without paraphasic errors and without word finding [...] who have questions please contact the health adult day care worker that requested your imaging first. Electronically signed by: Poppy Webster MD, [facility] ([phone]), at 03/19/2023 1:29 PM MRI Cholangiopancreatography WO [...] visceral organs, gastrointestinal tract, and vascular structures. Sales Representative Consultant Images: Noncontributory. Inferior thorax: Visualized structures within [...] who have questions please contact the health adult day care worker that requested your imaging first. Head wo [...] who have questions please contact the health adult day care worker that requested your imaging first. Orbit wwo Contrast (Exam End: 03/24/2023 11:16 AM) Narrative EXAMINATION: MRI BRAIN WWO CONTRAST (GENERIC), MRI ORBIT WWO CONTRAST CLINICAL HISTORY: Dizziness, non-specific dizziness, diplopia, rule out stroke? (accession [id number]), right eye weakness, diplopia, concern for possible inferior rectus infiltration or inflamation vs. possible optic neuritis (accession [id number]). Right-sided weakness, diplopia, concerning for possible inferior [...] who have questions please contact the health adult day care worker that requested your imaging first. Brain wwo Contrast (Generic) (Exam End: 03/24/2023 11:16 AM) Narrative EXAMINATION: MRI BRAIN WWO CONTRAST (GENERIC), MRI ORBIT WWO CONTRAST CLINICAL HISTORY: Dizziness, non-specific dizziness, diplopia, rule out stroke? (accession [id number]), right eye weakness, diplopia, concern for possible inferior rectus infiltration or inflamation vs. possible optic neuritis (accession [id number]). Right-sided weakness, diplopia, concerning for possible inferior [...] who have questions please contact the health adult day care worker that requested your imaging first. Film Library- [...] this assessment. Recommendations were communicated to primary hospitality team member Dick Bower. Fernando Giles MD 03/25/2023 Coding [...] Minimal/Low [] Low [] Minimal/Low [] Low 75091 [] Moderate [] Moderate [] Moderate [] Moderate 47464 [] High [] High [] High [] High 28046 Final Coding Determination: Straightforward/low Associated attestation - Carlito Parrish MD - 04/05/2023 2:33 PM EDT Psychiatry Attending Note I discussed this patient's situation with the resident but did not see the patient. I contributed to the formulation and treatment planning as documented in the resident's note. Carlito Parrish MD Psychiatry Consultation Pager: [phone] * Consult Note - Varsha Topete APRN [...] 168 hours. No results for input(s): PHART, XWB4SXK, PO2ART, DHS2FLM in the last 168 hours. No results [...] Folate supplementation - daily multivit General Neurology #[id number] Varsha Topete APRN Personal Pager #[phone] Department of Neurology [place] [phone] Associated attestation - Darinel Flores MD - 03/24/2023 2:26 PM EDT Neurology Attending Note Darinel Flores MD PhD (pager [phone]) I have seen and examined Leandra Wilks [...] Flexor digitorum profundus Digit II-V flexion / lockstitch binder 5 5 L2-3 Iliopsoas Hip flexion 5 [...] who have questions please contact the health adult day care worker that requested your imaging first. Electronically signed by: Poppy Webster MD, [facility] ([phone]), at 03/19/2023 1:29 PM MRI Cholangiopancreatography WO [...] who have questions please contact the health adult day care worker that requested your imaging first. Head wo Contrast (Generic) (Exam End: 03/21/2023 12:34 PM) Impression Normal brain CT. Thank you for letting us participate in the care of this patient. If you are a health care provider and have any questions regarding this report, please contact the number below. For patients who have questions please contact the health adult day care worker that requested your imaging first. Orthostatics blood [...] brainstem - MRI orbits wwo Neurology Consult #[id number] Isai Esqueda MD Neurology Resident, PGY-4 03/23/2023 Associated attestation - Darinel Flores MD - 03/24/2023 2:28 PM EDT Neurology Attending Note Darinel Flores MD PhD (pager [phone]) Please see my earlier attestation. * Op Note - Iram Borrero MD - 03/22/2023 7:54 PM EDT [facility] Operative Note Patient Name: Leandra Wilks : [id number] MR#: [id number] Case Date: 03/22/2023 Surgeon: Surgeon(s) and Role: [...] (WRVU 29.4) performed by Iram Borrero MDat [facility] OR ??? PRO UPPER GI ENDOSCOPY, DIAGNOSTIC N/A 01/10/2023 EGD, UPPER GI ENDOSCOPY performed by Iram Borrero MD at [facility] OR ??? PRO UPPER GI ENDOSCOPY, DIAGNOSTIC N/A 03/05/2023 EGD, UPPER GI ENDOSCOPY (WRVU 2.09) performed by Iram Borrero MD at [facility] OR ??? PRO UPPER GI ENDOSCOPY, DIAGNOSTIC N/A 03/20/2023 EGD, UPPER GI ENDOSCOPY (WRVU 2.09) performed by Gerber Salomon MD at [facility] Allergies: No Known Allergies Family [...] Flexor digitorum profundus Digit II-V flexion / lockstitch binder 5 5 L2-3 Iliopsoas Hip flexion 5 [...] who have questions please contact the health adult day care worker that requested your imaging first. Electronically signed by: Poppy Webster MD, [facility] ([phone]), at 03/19/2023 1:29 PM MRI Cholangiopancreatography WO [...] who have questions please contact the health adult day care worker that requested your imaging first. Head wo Contrast (Generic) (Exam End: 03/21/2023 12:34 PM) Impression Normal brain CT. Thank you for letting us participate in the care of this patient. If you are a health care provider and have any questions regarding this report, please contact the number below. For patients who have questions please contact the health adult day care worker that requested your imaging first. Orthostatics blood [...] Vestibular PT - MRI General Neurology Consults #[id number]. To be staffed in AM with Dr. Flores. Jaxno Kaur MD PGY1 03/22/2023 Isai Esqueda MD Neurology Resident, PGY-4 03/22/2023 Associated attestation - Darinel Flores MD - 03/24/2023 2:29 PM EDT Neurology Attending Note Darinel Flores MD PhD (pager [phone]) I have seen and examined Leandra Wilks [...] TID. Yuriy Bustillo MD Psychiatry Consultation Pager: [phone] Psychiatric Initial Inpatient Consultation Note Time of [...] and Lamictal Past hospitalizations: None at [facility] Suicide attempts: 1 remote attempt Past psychiatric [...] (WRVU 29.4) performed by Iram Borrero MDat [facility] OR ??? PRO UPPER GI ENDOSCOPY, DIAGNOSTIC N/A 01/10/2023 EGD, UPPER GI ENDOSCOPY performed by Iram Borrero MD at [facility] OR ??? PRO UPPER GI ENDOSCOPY, DIAGNOSTIC N/A 03/05/2023 EGD, UPPER GI ENDOSCOPY (WRVU 2.09) performed by Iram Borrero MD at [facility] OR ??? PRO UPPER GI ENDOSCOPY, DIAGNOSTIC N/A 03/20/2023 EGD, UPPER GI ENDOSCOPY (WRVU 2.09) performed by Gerber Salomon MD at [facility] Inpatient Medications: Current Facility-Administered Medications [...] and increased latency ?? Language: fluent in french, without paraphasic errors and without word finding [...] who have questions please contact the health adult day care worker that requested your imaging first. Electronically signed by: Poppy Webster MD, [facility] ([phone]), at 03/19/2023 1:29 PM MRI Cholangiopancreatography WO [...] visceral organs, gastrointestinal tract, and vascular structures. Sales Representative Consultant Images: Noncontributory. Inferior thorax: Visualized structures within [...] who have questions please contact the health adult day care worker that requested your imaging first. Electronically signed by: Maximo Forrest DO, [facility] ([phone]), at 03/20/2023 7:[address] Head wo [...] who have questions please contact the health adult day care worker that requested your imaging first. Electronically signed by: Erlin Castorena DO, [facility] ([phone]), at 03/21/2023 12:49 PM Film Library- Storage [...] this assessment. Recommendations were communicated to primary hospitality team member. Fernando Giles MD 03/21/2023 Coding Determination 1. [...] [] Minimal - [] Minimal [] Straightforward 31594 [] Low [] Low [] Low [] Low 46806 [] Moderate [x] Moderate [] Moderate [] Moderate 50310 [x] High [] High [x] High [x] High 26312 Final Coding Determination: Straightforward * Consult Note - Jessica Haywood [facility] - 03/21/2023 11:30 AM EDT BIT Evaluation [...] Because patient will be evaluated by [facility] psychiatrist who can obtain more history, etc., [...] support. Interventions delivered: Supportive therapy Plan: BIT [facility] to follow for supportive therapy Outstanding Discharge Needs: Other: TBD - patient already has an established outpatient therapist Time spent with the patient (min):30 minutes Time spent on case coordination (min): 15 minutes Jessica Haywood MA, [facility] - BIT (Behavioral Intervention Team) Dept. of Psychiatry - Inpatient Psych. Services Pager: [phone] * Initial Assessments - Pito Baltazar, OT [...] (WRVU 29.4) performed by Iram Borrero MDat [facility] OR ??? PRO UPPER GI ENDOSCOPY, DIAGNOSTIC N/A 01/10/2023 EGD, UPPER GI ENDOSCOPY performed by Iram Borrero MD at [facility] OR ??? PRO UPPER GI ENDOSCOPY, DIAGNOSTIC N/A 03/05/2023 EGD, UPPER GI ENDOSCOPY (WRVU 2.09) performed by Iram Borrero MD at [facility] Active Non-Hospital Problems Diagnosis [...] planning. Total Minutes, Occupational Therapy: 34 (Eval ([id number])) 2017 OT Evaluation Code Rationale: ?? Diagnosis [...] and measurable assessment of functional outcome. Pager: [phone] Pito Baltazar OT 03/20/2023 Occupational Therapy Rehabilitation Department * Op Note - Gerber Salomon MD - 03/20/2023 11:55 AM EDT DH Operative Note Patient Name: Leandra Wilks : [id number] MR#: [id number] Case Date: 03/20/2023 Surgeon: Surgeon(s) and Role: * Gerebr Salomon MD - Primary Procedure(s): EGD, UPPER [...] (WRVU 29.4) performed by Iram Borrero MDat [facility] OR ??? PRO UPPER GI ENDOSCOPY, DIAGNOSTIC N/A 01/10/2023 EGD, UPPER GI ENDOSCOPY performed by Iram Borrero MD at [facility] OR ??? PRO UPPER GI ENDOSCOPY, DIAGNOSTIC N/A 03/05/2023 EGD, UPPER GI ENDOSCOPY (WRVU 2.09) performed by Iram Borrero MD at [facility] SOCIAL HX: Social History [...] who have questions please contact the health adult day care worker that requested your imaging first. Electronically signed by: Poppy Webster MD, [facility] ([phone]), at 03/19/2023 1:29 PM Film Library- Storage [...] EGD. Raúl Zapien MD Section of Gastroenterology [facility] * Plan of Care - [...] N/A ; Prescription Coverage: Yes Preferred Pharmacy: [id number] - [place], [place] - [address] [facility] [address] [facility] [address] [facility] [address] [facility] [address] Advance Care Planning: Attempt Cardiopulmonary Resuscitation - Inpatient <no information> -Advanced Directive: (not on file) Current Functional Ability: Assistive Person Functional Status Prior to Admission: Independent Home Environment: Others in the home: significant other. Current Living Arrangements: home/apartment/condo. Accessibility Concerns:second floor apartment, FOS to manage. Current DME: none [address] [place] [id number] Social & Family Supports: All names listed below confirmed with patient as current and correct Extended Emergency Contact Information Primary Emergency Contact: JAXON BLAKE Address: [address] [place] [id number] [place] [address] of [place] Mobile Relation: Life Partner Secondary Emergency Contact: Ozzy Granado Address: [address] [facility] States of [place] Relation: Child Current Care [...] private car when medically ready. Registered Nurse Software Engineering Supervisor / Towel Cabinet Repairer will continue to follow patient???s progress and remain available if situation changes for coordination of care, psychosocial support and/or discharge planning. Office of Care Management Janis HEDRICK dot compliance specialist Team Software Engineering SupervisorDigital Content Producer of Care Management [email or web address] Pager #[phone] * Consult Note - Emmanuel Rodriguez, [facility] - 03/19/2023 1:00 AM EDT [...] psychologist to work on eating behaviors [facility] is sending hand-outs with exercises for [...] & AUTO DIFF Routine 3:50 AM EDT PHOSPHORUS Routine 03/27/2023 3:50 AM EDT MAGNESIUM Routine 03/27/2023 3:50 AM EDT COMPREHENSIVE METABOLIC PANEL Routine 3:50 AM EDT POCT GLUCOSE Routine 03/26/2023 7:43 PM EDT TSH CASCADE Routine 03/26/2023 4:00 AM EDT CRP, ACUTE INFLAMMATION Routine 03/26/20 4:00 AM EDT LAMOTRIGINE LVL Routine 03/26/2023 4:00 AM EDT HEMOGRAM Routine 03/26/2023 4:00 AM EDT DIFFERENTIAL, AUTOMATED Routine 03/26/20 4:00 AM EDT GOLD TUBE HOLD Routine 03/26/2023 4:00 AM EDT GREEN TUBE HOLD Routine 03/26/2023 4:00 AM EDT IRON AND TIBC Routine 03/26/2023 4:00 AM EDT VITAMIN D, 25-HYDROXY Routine 03/26/2023 4:00 AM EDT SEDIMENTATION RATE Routine 03/26/2023 4: 00 AM EDT HC CBC,PLT & AUTO DIFF Routine 4:00 AM EDT PHOSPHORUS Routine 03/26/2023 4:00 AM EDT MAGNESIUM Routine 03/26/2023 4:00 AM EDT FERRITIN Routine 03/26/2023 4:00 AM EDT CK Routine 03/26/2023 4:00 AM EDT COMPREHENSIVE METABOLIC PANEL Routine 4:00 AM EDT HEMOGRAM Routine 03/25/2023 3:31 AM EDT DIFFERENTIAL, AUTOMATED Routine 03/25/20 3:31 AM EDT HC CBC,PLT & AUTO DIFF Routine 3:31 AM EDT PHOSPHORUS Routine 03/25/2023 3:31 AM EDT MAGNESIUM Routine 03/25/2023 3:31 AM EDT COMPREHENSIVE METABOLIC PANEL Routine 3:31 AM EDT MRI ORBIT WWO CONTRAST Routine 11:16 AM EDT MRI BRAIN WWO CONTRAST (GENERIC) Routine 03/24/2023 11:16 AM EDT ALANINE AMINOTRANSFERASE Routine 5:51 AM EDT ASPARTATE AMINOTRANSFERASE Routine 03/24 5:51 AM EDT POTASSIUM Routine 03/24/2023 5:51 AM EDT HEMOGRAM Routine 03/24/2023 3:51 AM EDT DIFFERENTIAL, AUTOMATED Routine 03/24/20 23 3:51 AM EDT HC CBC,PLT & AUTO DIFF Routine 3:51 AM EDT PHOSPHORUS Routine 03/24/2023 3:51 AM EDT MAGNESIUM Routine 03/24/2023 3:51 AM EDT COMPREHENSIVE METABOLIC PANEL Routine 3:51 AM EDT HEMOGRAM Routine 03/23/2023 8:07 AM EDT DIFFERENTIAL, AUTOMATED Routine 03/23/20 8:07 AM EDT HC VENIPUNCTURE Routine 03/23/2023 8:07 AM EDT HEMOGRAM Routine 03/23/2023 3:39 AM EDT DIFFERENTIAL, AUTOMATED Routine 03/23/20 3:39 AM EDT HC CBC,PLT & AUTO DIFF Routine 3:39 AM EDT PHOSPHORUS Routine 03/23/2023 3:39 AM EDT MAGNESIUM Routine 03/23/2023 3:39 AM EDT COMPREHENSIVE METABOLIC PANEL Routine 3:39 AM EDT POCT GLUCOSE Routine 03/22/2023 9:46 PM EDT LYSIS OF ADHESIONS,ABD. 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 LAPAROSCOPY, DIAGNOSTIC Routine 03/22/20 6:41 PM EDT POCT GLUCOSE Routine 03/22/2023 2:32 PM EDT HEMOGRAM Routine 03/22/2023 4:17 AM EDT DIFFERENTIAL, AUTOMATED Routine 03/22/20 4:17 AM EDT HC CBC,PLT & AUTO DIFF Routine 4:17 AM EDT PHOSPHORUS Routine 03/22/2023 4:17 AM EDT MAGNESIUM Routine 03/22/2023 4:17 AM EDT COMPREHENSIVE METABOLIC PANEL Routine 4:17 AM EDT VITAMIN B1, WHOLE BLOOD Routine 03/21/20 6:00 PM EDT FOLATE, SERUM Routine 03/21/2023 6:00 PM EDT VITAMIN B12 Routine 03/21/2023 6:[address] HEAD WO CONTRAST (GENERIC) Routine 12:34 PM EDT HEMOGRAM Routine 03/21/2023 3:46 AM EDT DIFFERENTIAL, AUTOMATED Routine 03/21/20 3:46 AM EDT IGG 4 Routine 03/21/2023 3:46 AM EDT HC VENIPUNCTURE Routine 03/21/2023 3:46 AM EDT PHOSPHORUS Routine 03/21/2023 3:46 AM EDT MAGNESIUM Routine 03/21/2023 3:46 AM EDT COMPREHENSIVE METABOLIC PANEL Routine 3:46 AM EDT POCT GLUCOSE Routine 03/21/2023 3:45 AM EDT POCT GLUCOSE Routine 03/21/2023 12:02 AM EDT POCT GLUCOSE Routine 03/20/2023 9:38 PM EDT Upper GI Endoscopy, Diagnost ic (39435) 03/20/2023 11:51 AM EDT dysphagia UPPER GI ENDOSCOPY Routine 03/20/2023 10:26 AM EDT HEMOGRAM Routine 03/20/2023 2:32 AM EDT DIFFERENTIAL, AUTOMATED Routine 03/20/20 2:32 AM EDT HC CBC,PLT & AUTO DIFF Routine 2:32 AM EDT PHOSPHORUS Routine 03/20/2023 2:32 AM EDT MAGNESIUM Routine 03/20/2023 2:32 AM EDT HEPATIC FUNCTION PANEL Routine 2:32 AM EDT BASIC METABOLIC PANEL Routine 03/20/2023 2:32 AM EDT MRI CHOLANGIOPANCREATOGRAPHY Routine 12/2022 5:40 PM EDT PHOSPHORUS Routine 03/19/2023 3:32 PM EDT MAGNESIUM Routine 03/19/2023 3:32 PM EDT BASIC METABOLIC PANEL Routine 03/19/2023 3:32 PM EDT XR FLUORO BARIUM SWALLOW (DOUBLE CONTRAST) Routine 03/19/2023 1:22 PM EDT POCT GLUCOSE Routine 03/19/2023 11:44 AM EDT POCT GLUCOSE Routine 03/19/2023 7:42 AM EDT HEMOGRAM Routine 03/19/2023 3:49 AM EDT DIFFERENTIAL, AUTOMATED Routine 03/19/20 3:49 AM EDT HC CBC,PLT & AUTO DIFF Routine 3:49 AM EDT PHOSPHORUS Routine 03/19/2023 3:49 AM EDT MAGNESIUM Routine 03/19/2023 3:49 AM EDT BASIC METABOLIC PANEL Routine 03/19/2023 3:49 AM EDT POCT GLUCOSE Routine 03/19/2023 3:32 AM EDT POCT GLUCOSE Routine 03/19/2023 2:38 AM EDT POCT GLUCOSE Routine 03/19/2023 1:22 AM EDT POCT GLUCOSE Routine 03/19/2023 12:30 AM EDT BLOOD GAS VENOUS POC Routine 03/18/2023 11:10 PM EDT BETA HYDROXYBUTYRATE STAT 03/18/2023 11:08 PM EDT BASIC METABOLIC PANEL STAT 03/18/2023 11:08 PM EDT POCT GLUCOSE Routine 03/18/2023 10:50 PM EDT EKG 12-LEAD STAT 03/18/2023 9:35 PM EDT EKG 12-LEAD STAT 03/18/2023 8:24 PM EDT BETA HYDROXYBUTYRATE STAT 03/18/2023 5:01 PM EDT HC L-LACTATE STAT 03/18/2023 5:01 PM EDT HEMOGRAM STAT 03/18/2023 3:49 PM EDT DIFFERENTIAL, AUTOMATED STAT 03/18/20 3:49 PM EDT HC CBC,PLT & AUTO DIFF STAT 3:49 PM EDT PREALBUMIN STAT 03/18/2023 3:49 PM EDT HC LIPASE STAT 03/18/2023 3:49 PM EDT HEPATIC FUNCTION PANEL STAT 3:49 PM EDT BASIC METABOLIC PANEL STAT 03/18/2023 3:49 PM EDT URINALYSIS MICROSCOPIC [...] (ABNORMAL) Differential, Automated (03/27/2023 3:50 AM EDT) Neutrophil % 55.1 % [facility] Neutrophil Absolute 3.91 1.70 - 6.10 x10(3)/mc L [facility] Lymph % 33.0 % [facility] Lymphocytes Abs 2.3 0.9 - 3.2 x10(3)/mc L [facility] Monocyte % 5.6 % [facility] Monocyte Abs 0.4 0.3 - 0.9 x10(3)/mc L [facility] Eos % 4.9 % [facility] Eosinophils Abs 0.4 0.0 - 0.4 x10(3)/mc L [facility] Basophil % 0.3 % [facility] Baso Absolute 0.0 0.0 - 0.1 x10(3)/mc L [facility] Immature Gran % 1.10 % [facility] Comment: Immature granulocytes(IG's)percentage and absolute count will include metamyelocytes, myelocytes, and promyelocytes. Blood smears from CBCs yielding IG's will be scanned manually for concordance. If this scan disagrees with the automated IG or if promyelocytes are noted, a manual differential will be performed. Immature Gran Absolute 0.08(H) 0.00 - 0.04 x10(3)/mc L [facility] Blood 03/27/2023 3:50 AM EDT 03/27/2023 4:21 AM EDT Narrative Resulting Agency Comment Spec In Lab Natalee Winn MD HEMATOLOGY ORDERABLE S [facility] [place] [address] * (ABNORMAL) Hemogram (03/27/2023 3:50 AM EDT) White Blood Cell 7.1 4.0 - 9.5 x10(3)/ L [facility] Red Blood Cell 3.75(L) 4.00 - 5.21 x10(6)/ L [facility] Hemoglobin 10.9(L) 11.7 - 15.5 g/dL [facility] Hematocrit 31.5(L) 35.7 - 45.8 % [facility] Mean Cell Volume 84.0 82.6 - 94.4 fL [facility] Mean Cell Hemoglobin 29.1 27.1 - 32.0 pg [facility] Mean Cell Hemoglobin Concentration 34.6 31.7 - 35.0 g/dL [facility] Platelet 297 145 - 357 x10(3)/mc L [facility] RDW Standard Deviation 47.8(H) 37.0 - 46.0 fL [facility] RDW coefficient of variation 15.9(H) 11.5 - 14.1 % [facility] Mean Platelet Volume 9.3 7.6 - 12.9 fL [facility] NRBC% auto 0.0 % [facility] NRBC Absolute 0.000 0.000 - 0.000 x10(3)/mc L [facility] Blood 03/27/2023 3:50 AM EDT 03/27/2023 4:21 AM EDT Narrative Resulting Agency Comment Spec In Lab Natalee Winn MD HEMATOLOGY ORDERABLE S Performing Organization Address City/[facility]/ZIP Co de Phone Number [facility] [place] [address] * (ABNORMAL) Comprehensive metabolic panel (non-fasting) (03/27/2023 3:50 AM EDT) Glucose 86 65 - 199 mg/dL [facility] Comment:Diabetes: >=200 mg/d L plus symptoms Blood Urea Nitrogen 10 8 - 18 mg/dL [facility] Comment:result rechecked-GH Creatinine 0.74 0.70 - 1.20 mg/dL [facility] Sodium 141 135 - 145 mmol/L [facility] Potassium 3.5 3.5 - 5.0 mmol/L [facility] Comment: Please note: ??Patients with WBC >100,000 may have falsely elevated Potassium levels. ??For accurate Potassium quantification in these patients send serum separator tube (gold top) for subsequent determinations. ??Contact the Clinical Chemistry Laboratory if there are any questions. Chloride 105 98 - 107 mmol/L [facility] Carbon Dioxide 25 22 - 31 mmol/L [facility] Anion Gap 11 5 - 15 mmol/L [facility] Calcium 8.7 8.5 - 10.5 mg/dL [facility] Protein, Total 5.3(L) 6.1 - 8.0 g/dL [facility] Albumin 3.2 3.2 - 5.2 g/dL [facility] Aspartate Aminotransferase 40(H) 0 - 30 unit/L [facility] Alanine Aminotransferase 42(H) 0 - 30 unit/L [facility] Alkaline Phosphatase 111(H) 35 - 105 unit/L [facility] Bilirubin, Total 0.7 0.2 - 1.3 mg/dL [facility] Est Glomerular Filtration Rate 102 >=60 mL/min/1. 73 m?? [facility] Comment: This patient's estimated GFR [...] Winn MD CHEMISTRY ORDERABLES Performing Organization Address City/[facility]/ZIP Co de Phone Number [facility] [place] [address] * Phosphorus (03/27/2023 3:50 AM EDT) Phosphorus 4.3 2.5 - 4.5 mg/dL [facility] Blood 03/27/2023 3:50 AM EDT 03/27/2023 4:19 AM EDT Narrative Resulting Agency Comment Spec In Lab Natalee Winn MD CHEMISTRY ORDERABLES Performing Organization Address [facility] [[email or web address]] Co de Phone Number [facility] [place] [address] * Magnesium (03/27/2023 3:50 AM EDT) Magnesium 0.85 0.69 - 1.07 mmol/L [facility] Blood 03/27/2023 3:50 AM EDT 03/27/2023 4:19 AM EDT Narrative Resulting Agency Comment Spec In Lab Natalee Winn MD CHEMISTRY ORDERABLES Performing Organization Address [facility] [[email or web address]] Co de Phone Number [facility] [place] [address] * POCT Glucose (03/26/2023 7:43 PM EDT) Glucose, POC 89 65 - 199 mg/dL [facility] Comment: Supplemental ranges: <140 mg/dL before meals <180 mg/dL all other times of the day Blood 03/26/2023 7:43 PM EDT 03/26/2023 7:43 PM EDT Iram Borrero MD POINT OF CARE TEST O RDERABLES Performing Organization Address City/[facility]/ZIP Co de Phone Number [facility] [place] [address] * Lamotrigine Lvl (03/26/2023 4:00 AM EDT) Lamotrigine Lvl (MARCH) 3.6 3.0 - 15.0 mcg/mL [facility] Comment: ADDITIONAL INFORMATION This test was developed and its performance characteristics determined by [facility] in a manner consistent with CLIA requirements. This test has not been cleared or approved by the U.S. Food and Drug Administration. Test Performed by: [facility] - [address] [address] Sports [employer] Coordinator: Erlin Orlando M.D. Ph.D.; CLIA# [id number] Blood Venous Draw / Unknown 03/26/2023 4:00 AM EDT 03/26/2023 3:52 PM EDT Narrative Resulting Agency Comment Spec In Lab Natalee Winn MD LAB SEND OUT ORDERAB LES Performing Organization Address City/[facility]/ZIP Co de Phone Number [facility] [place] [address] * (ABNORMAL) Ferritin (03/26/2023 4:00 AM EDT) Pathologist [facility] Ferritin 778(H) 15 - 150 ng/mL [facility] Comment: Pediatric reference ranges not verified at [facility] [place] [place], interpret with caution. Reference ranges for females greater than 50 years of age approach values for men, i.e., 30-400 ng/mL. Blood Venous Draw / Unknown 03/26/2023 4:00 AM EDT 03/26/2023 4:37 AM EDT Narrative Resulting Agency Comment Spec In Lab Joan GAINES CHEMISTRY ORDERABLE S Performing Organization Address City/[facility]/ZIP Co de Phone Number [facility] [place] [address] * (ABNORMAL) Iron and TIBC (03/26/2023 4:00 AM EDT) Iron 80 30 - 150 mcg/dL [facility] TIBC 226(L) 250 - 450 mcg/dL [facility] Iron Saturation 35 20 - 50 % [facility] Blood Venous Draw / Unknown 03/26/2023 4:00 AM EDT 03/26/2023 4:36 AM EDT Narrative Resulting Agency Comment Spec In Lab Joan GAINES CHEMISTRY ORDERABLE S [facility] [place] [address] * Vitamin D, 25-Hydroxy (03/26/2023 4:00 AM EDT) Vitamin D Total 25 OH 34 21 - 100 ng/mL [facility] Vit D Interp Sufficient [facility] Blood Venous Draw / Unknown 03/26/2023 4:00 AM EDT 03/26/2023 4:37 AM EDT Narrative Resulting Agency Comment Spec In Lab Joan GAINES CHEMISTRY ORDERABLE S Performing Organization Address City/[facility]/ZIP Co de Phone Number [facility] [place] [address] * Green Tube HOLD (03/26/2023 4:00 AM EDT) Green Hold Sample in lab. [facility] Blood Venous Draw / Unknown 03/26/2023 4:00 AM EDT 03/26/2023 4:35 AM EDT Natalee Winn MD CHEMISTRY ORDERABLES [facility] [place] [address] * Gold Tube HOLD (03/26/2023 4:00 AM EDT) Gold Hold Sample in lab. [facility] Blood Venous Draw / Unknown 03/26/2023 4:00 AM EDT 03/26/2023 4:36 AM EDT Natalee Winn MD CHEMISTRY ORDERABLES [facility] [place] [address] * (ABNORMAL) Differential, Automated (03/26/2023 4:00 AM EDT) Neutrophil % 54.4 % [facility] Neutrophil Absolute 3.65 1.70 - 6.10 x10(3)/mc L [facility] Lymph % 31.2 % [facility] Lymphocytes Abs 2.1 0.9 - 3.2 x10(3)/mc L [facility] Monocyte % 6.0 % [facility] Monocyte Abs 0.4 0.3 - 0.9 x10(3)/mc L [facility] Eos % 6.0 % [facility] Eosinophils Abs 0.4 0.0 - 0.4 x10(3)/mc L [facility] Basophil % 0.6 % [facility] Baso Absolute 0.0 0.0 - 0.1 x10(3)/mc L [facility] Immature Gran % 1.80 % [facility] Comment: Immature granulocytes(IG's)percentage and absolute count will include metamyelocytes, myelocytes, and promyelocytes. Blood smears from CBCs yielding IG's will be scanned manually for concordance. If this scan disagrees with the automated IG or if promyelocytes are noted, a manual differential will be performed. Immature Gran Absolute 0.12(H) 0.00 - 0.04 x10(3)/mc L [facility] Blood 03/26/2023 4:00 AM EDT 03/26/2023 4:35 AM EDT Narrative Resulting Agency Comment Spec In Lab Natalee Winn MD HEMATOLOGY ORDERABLE S [facility] [place] [address] * (ABNORMAL) Hemogram (03/26/2023 4:00 AM EDT) White Blood Cell 6.7 4.0 - 9.5 x10(3)/mc L [facility] Red Blood Cell 4.00 4.00 - 5.21 x10(6)/mc L [facility] Hemoglobin 11.4(L) 11.7 - 15.5 g/dL [facility] Hematocrit 34.0(L) 35.7 - 45.8 % [facility] Mean Cell Volume 85.0 82.6 - 94.4 fL [facility] Mean Cell Hemoglobin 28.5 27.1 - 32.0 pg [facility] Mean Cell Hemoglobin Concentration 33.5 31.7 - 35.0 g/dL [facility] Platelet 296 145 - 357 x10(3)/mc L [facility] RDW Standard Deviation 46.9(H) 37.0 - 46.0 fL [facility] RDW coefficient of variation 15.5(H) 11.5 - 14.1 % [facility] Mean Platelet Volume 9.1 7.6 - 12.9 fL [facility] NRBC% auto 0.0 % [facility] NRBC Absolute 0.000 0.000 - 0.000 x10(3)/ L [facility] Blood 03/26/2023 4:00 AM EDT 03/26/2023 4:35 AM EDT Narrative Resulting Agency Comment Spec In Lab Natalee Winn MD HEMATOLOGY ORDERABLE S Performing Organization Address City/State/[facility] [[email or web address]] Co de Phone Number [facility] [place] [address] * (ABNORMAL) Comprehensive metabolic panel (non-fasting) (03/26/2023 4:00 AM EDT) Glucose 82 65 - 199 mg/dL [facility] Comment:Diabetes: >=200 mg/d L plus symptoms Blood Urea Nitrogen 4(L) 8 - 18 mg/dL [facility] Creatinine 0.70 0.70 - 1.20 mg/dL [facility] Sodium 140 135 - 145 mmol/L [facility] Potassium 3.8 3.5 - 5.0 mmol/L [facility] Comment: Please note: ??Patients with WBC >100,000 may have falsely elevated Potassium levels. ??For accurate Potassium quantification in these patients send serum separator tube (gold top) for subsequent determinations. ??Contact the Clinical Chemistry Laboratory if there are any questions. Chloride 104 98 - 107 mmol/L [facility] Carbon Dioxide 25 22 - 31 mmol/L [facility] Anion Gap 11 5 - 15 mmol/L [facility] Calcium 8.7 8.5 - 10.5 mg/dL [facility] Protein, Total 5.7(L) 6.1 - 8.0 g/dL [facility] Albumin 3.3 3.2 - 5.2 g/dL [facility] Aspartate Aminotransferase 41(H) 0 - 30 unit/L [facility] Alanine Aminotransferase 42(H) 0 - 30 unit/L [facility] Alkaline Phosphatase 119(H) 35 - 105 unit/L [facility] Bilirubin, Total 0.6 0.2 - 1.3 mg/dL [facility] Est Glomerular Filtration Rate 109 >=60 mL/min/1. 73 m?? [facility] Comment: This patient's estimated GFR [...] In Lab Natalee Winn MD CHEMISTRY ORDERABLES [facility] [place] [address] * Phosphorus (03/26/2023 4:00 AM EDT) Phosphorus 4.4 2.5 - 4.5 mg/dL [facility] Blood 03/26/2023 4:00 AM EDT 03/26/2023 4:35 AM EDT Narrative Resulting Agency Comment Spec In Lab Natalee Winn MD CHEMISTRY ORDERABLES Performing Organization Address City/[facility] [[email or web address]] Co de Phone Number [facility] [place] [address] * Magnesium (03/26/2023 4:00 AM EDT) Magnesium 0.94 0.69 - 1.07 mmol/L [facility] Blood 03/26/2023 4:00 AM EDT 03/26/2023 4:35 AM EDT Narrative Resulting Agency Comment Spec In Lab Natalee Winn MD CHEMISTRY ORDERABLES Performing Organization Address [facility] [[email or web address]] Co de Phone Number [facility] [place] [address] * TSH Coffee (03/26/2023 4:00 AM EDT) Thyroid Stimulating Hormone 0.47 0.27 - 4.20 mcIU/mL [facility] Comment: Reference Interval (mcIU/mL): Females: ??First Trimester: 0.23-3.88 ??Second Trimester: 0.22-3.90 ??Third Trimester: 0.44-4.66 Blood 03/26/2023 4:00 AM EDT 03/26/2023 4:35 AM EDT Narrative Resulting Agency Comment Spec In Lab Iram Borrero MD CHEMISTRY ORDERABLES Performing Organization Address City/[facility]/ZIP Co de Phone Number [facility] [place] [address] * CK (03/26/2023 4:00 AM EDT) Creatine Kinase 51 0 - 160 unit/L [facility] Blood 03/26/2023 4:00 AM EDT 03/26/2023 4:35 AM EDT Narrative Resulting Agency Comment Spec In Lab Iram Borrero MD CHEMISTRY ORDERABLES Performing Organization Address City/[facility]/ZIP Co de Phone Number [facility] [place] [address] * CRP, acute inflammation (03/26/2023 4:00 AM EDT) Pathologist [facility] C-Reactive Protein 4.5 <=4.9 mg/L [facility] Blood 03/26/2023 4:00 AM EDT 03/26/2023 4:35 AM EDT Narrative Resulting Agency Comment Spec In Lab Iram Borrero MD CHEMISTRY ORDERABLES Performing Organization Address [facility] [[email or web address]] Co de Phone Number [facility] [place] [address] * Sedimentation rate (03/26/2023 4:00 AM EDT) [facility] Sedimentation Rate Automated 16 2 - 37 mm/hr [facility] Comment: Effective October 28, 2019 new capillary photometric technology has resulted in a change in reference ranges. It is recommended that each ESR result be reviewed with its own age appropriate reference range. Blood 03/26/2023 4:00 AM EDT 03/26/2023 4:35 AM EDT Narrative Resulting Agency Comment Spec In Lab Iram Borrero MD HEMATOLOGY ORDERABLE S Performing Organization Address [facility] [[email or web address]] Co de Phone Number [facility] [place] [address] * (ABNORMAL) Differential, Automated (03/25/2023 3:31 AM EDT) Pathologist [facility] Neutrophil % 55.0 % [facility] Neutrophil Absolute 4.60 1.70 - 6.10 x10(3)/mc L [facility] Lymph % 29.4 % [facility] Lymphocytes Abs 2.5 0.9 - 3.2 x10(3)/mc L [facility] Monocyte % 6.2 % [facility] Monocyte Abs 0.5 0.3 - 0.9 x10(3)/mc L [facility] Eos % 5.7 % [facility] Eosinophils Abs 0.5(H) 0.0 - 0.4 x10(3)/mc L [facility] Basophil % 0.7 % [facility] Baso Absolute 0.1 0.0 - 0.1 x10(3)/mc L [facility] Immature Gran % 3.00 % [facility] Comment: Immature granulocytes(IG's)percentage and absolute count will include metamyelocytes, myelocytes, and promyelocytes. Blood smears from CBCs yielding IG's will be scanned manually for concordance. If this scan disagrees with the automated IG or if promyelocytes are noted, a manual differential will be performed. Immature Gran Absolute 0.25(H) 0.00 - 0.04 x10(3)/ L [facility] Blood 03/25/2023 3:31 AM EDT 03/25/2023 3:44 AM EDT Narrative Resulting Agency Comment Spec In Lab Natalee Winn MD HEMATOLOGY ORDERABLE S Performing Organization Address City/State/[facility] [[email or web address]] Co de Phone Number [facility] [place] [address] * (ABNORMAL) Hemogram (03/25/2023 3:31 AM EDT) White Blood Cell 8.4 4.0 - 9.5 x10(3)/mc L [facility] Red Blood Cell 3.77(L) 4.00 - 5.21 x10(6)/mc L [facility] Hemoglobin 10.8(L) 11.7 - 15.5 g/dL [facility] Hematocrit 32.8(L) 35.7 - 45.8 % [facility] Mean Cell Volume 87.0 82.6 - 94.4 fL [facility] Mean Cell Hemoglobin 28.6 27.1 - 32.0 pg [facility] Mean Cell Hemoglobin Concentration 32.9 31.7 - 35.0 g/dL [facility] Platelet 291 145 - 357 x10(3)/mc L [facility] RDW Standard Deviation 48.2(H) 37.0 - 46.0 fL [facility] RDW coefficient of variation 15.0(H) 11.5 - 14.1 % [facility] Mean Platelet Volume 9.8 7.6 - 12.9 fL [facility] NRBC% auto 0.0 % [facility] NRBC Absolute 0.000 0.000 - 0.000 x10(3)/mc L [facility] Blood 03/25/2023 3:31 AM EDT 03/25/2023 3:44 AM EDT Narrative Resulting Agency Comment Spec In Lab Natalee Winn MD HEMATOLOGY ORDERABLE S [facility] [place] [address] * (ABNORMAL) Comprehensive metabolic panel (non-fasting) (03/25/2023 3:31 AM EDT) Glucose 94 65 - 199 mg/dL [facility] Comment:Diabetes: >=200 mg/d L plus symptoms Blood Urea Nitrogen 3(L) 8 - 18 mg/dL [facility] Creatinine 0.61(L) 0.70 - 1.20 mg/dL [facility] Sodium 138 135 - 145 mmol/L [facility] Potassium 3.4(L) 3.5 - 5.0 mmol/L [facility] Comment: Please note: ??Patients with WBC >100,000 may have falsely elevated Potassium levels. ??For accurate Potassium quantification in these patients send serum separator tube (gold top) for subsequent determinations. ??Contact the Clinical Chemistry Laboratory if there are any questions. Chloride 100 98 - 107 mmol/L [facility] Carbon Dioxide 22 22 - 31 mmol/L [facility] Anion Gap 16(H) 5 - 15 mmol/L [facility] Calcium 8.8 8.5 - 10.5 mg/dL [facility] Protein, Total 5.6(L) 6.1 - 8.0 g/dL [facility] Albumin 3.2 3.2 - 5.2 g/dL [facility] Aspartate Aminotransferase 43(H) 0 - 30 unit/L [facility] Alanine Aminotransferase 42(H) 0 - 30 unit/L [facility] Alkaline Phosphatase 115(H) 35 - 105 unit/L [facility] Bilirubin, Total 0.6 0.2 - 1.3 mg/dL [facility] Est Glomerular Filtration Rate 112 >=60 mL/min/1. 73 m?? [facility] Comment: This patient's estimated GFR [...] Winn MD CHEMISTRY ORDERABLES Performing Organization Address [facility] de Phone Number [facility] [place] [address] * Phosphorus (03/25/2023 3:31 AM EDT) Phosphorus 3.4 2.5 - 4.5 mg/dL [facility] Blood 03/25/2023 3:31 AM EDT 03/25/2023 3:43 AM EDT Narrative Resulting Agency Comment Spec In Lab Natalee Winn MD CHEMISTRY ORDERABLES Performing Organization Address [facility] [[email or web address]] Co de Phone Number [facility] [place] [address] * (ABNORMAL) Magnesium (03/25/2023 3:31 AM EDT) Magnesium 0.67(L) 0.69 - 1.07 mmol/L [facility] Blood 03/25/2023 3:31 AM EDT 03/25/2023 3:43 AM EDT Narrative Resulting Agency Comment Spec In Lab Natalee Winn [place] [address] * MRI Brain wwo Contrast (Generic) (03/24/2023 [...] who have questions please contact the health adult day care worker that requested your imaging first. ? Narrative 03/24/2023 12:20 PM EDT EXAMINATION: MRI BRAIN WWO CONTRAST (GENERIC), MRI ORBIT WWO CONTRAST CLINICAL HISTORY: Dizziness, non-specific dizziness, diplopia, rule out stroke? (accession [id number]), right eye weakness, diplopia, concern for possible inferior rectus infiltration or inflamation vs. possible optic neuritis (accession [id number]). Right-sided weakness, diplopia, concerning for possible inferior [...] non-specific dizziness, diplopia, rule out stroke? (accession [id number]), right eyeweakness, diplopia, concern for possible inferior rectus infiltration or inflamationvs. possible optic neuritis (accession [id number]). Right-sided weakness,diplopia, concerning for possible inferior rectus [...] patients who have questions please contactthe health adult day care worker that requested your imaging first. Natalee Winn MD [facility] [place] MRI ORDERABLES * MRI Orbit wwo Contrast [...] who have questions please contact the health adult day care worker that requested your imaging first. ? Narrative 03/24/2023 12:20 PM EDT EXAMINATION: MRI BRAIN WWO CONTRAST (GENERIC), MRI ORBIT WWO CONTRAST CLINICAL HISTORY: Dizziness, non-specific dizziness, diplopia, rule out stroke? (accession [id number]), right eye weakness, diplopia, concern for possible inferior rectus infiltration or inflamation vs. possible optic neuritis (accession [id number]). Right-sided weakness, diplopia, concerning for possible inferior [...] non-specific dizziness, diplopia, rule out stroke? (accession [id number]), right eyeweakness, diplopia, concern for possible inferior rectus infiltration or inflamationvs. possible optic neuritis (accession [id number]). Right-sided weakness,diplopia, concerning for possible inferior rectus [...] patients who have questions please contactthe health adult day care worker that requested your imaging first. Natalee Winn MD [facility] [place] MRI ORDERABLES * (ABNORMAL) Aspartate Aminotransferase (03/24/2023 5:51 AM EDT) Aspartate Aminotransferase 54(H) 0 - 30 unit/L [facility] Blood 03/24/2023 5:51 AM EDT 03/24/2023 6:02 AM EDT Narrative Resulting Agency Comment Spec In Lab Iram Borrero MD CHEMISTRY ORDERABLES [facility] [place] [address] * (ABNORMAL) Alanine Aminotransferase (03/24/2023 5:51 AM EDT) Pathologist [facility] Alanine Aminotransferase 41(H) 0 - 30 unit/L [facility] Blood 03/24/2023 5:51 AM EDT 03/24/2023 6:02 AM EDT Narrative Resulting Agency Comment Spec In Lab Iram Borrero MD CHEMISTRY ORDERABLES Performing Organization Address City/[facility] [[email or web address]] Co de Phone Number [facility] [place] [address] * (ABNORMAL) Potassium (03/24/2023 5:51 AM EDT) [facility] Potassium 3.4(L) 3.5 - 5.0 mmol/L [facility] Comment: Please note: ??Patients with WBC >100,000 may have falsely elevated Potassium levels. ??For accurate Potassium quantification in these patients send serum separator tube (gold top) for subsequent determinations. ??Contact the Clinical Chemistry Laboratory if there are any questions. Blood 03/24/2023 5:51 AM EDT 03/24/2023 6:02 AM EDT Narrative Resulting Agency Comment Spec In Lab Iram Borrero MD CHEMISTRY ORDERABLES [facility] [place] [address] * (ABNORMAL) Differential, Automated (03/24/2023 3:51 AM EDT) Neutrophil % 51.7 % [facility] Neutrophil Absolute 3.49 1.70 - 6.10 x10(3)/mc L [facility] Lymph % 37.0 % [facility] Lymphocytes Abs 2.5 0.9 - 3.2 x10(3)/mc L [facility] Monocyte % 4.1 % [facility] Monocyte Abs 0.3 0.3 - 0.9 x10(3)/ L [facility] Eos % 4.3 % [facility] Eosinophils Abs 0.3 0.0 - 0.4 x10(3)/ L [facility] Basophil % 0.4 % [facility] Baso Absolute 0.0 0.0 - 0.1 x10(3)/ L [facility] Immature Gran % 2.50 % [facility] Comment: Immature granulocytes(IG's)percentage and absolute count will include metamyelocytes, myelocytes, and promyelocytes. Blood smears from CBCs yielding IG's will be scanned manually for concordance. If this scan disagrees with the automated IG or if promyelocytes are noted, a manual differential will be performed. Immature Gran Absolute 0.17(H) 0.00 - 0.04 x10(3)/ L [facility] Blood 03/24/2023 3:51 AM EDT 03/24/2023 4:09 AM EDT Narrative Resulting Agency Comment Spec In Lab Natalee Winn MD HEMATOLOGY ORDERABLE S Performing Organization Address City/State/[facility] [[email or web address]] Co de Phone Number [facility] [place] [address] * (ABNORMAL) Hemogram (03/24/2023 3:51 AM EDT) White Blood Cell 6.8 4.0 - 9.5 x10(3)/mc L [facility] Red Blood Cell 3.69(L) 4.00 - 5.21 x10(6)/mc L [facility] Hemoglobin 10.5(L) 11.7 - 15.5 g/dL [facility] Hematocrit 31.5(L) 35.7 - 45.8 % [facility] Mean Cell Volume 85.4 82.6 - 94.4 fL [facility] Mean Cell Hemoglobin 28.5 27.1 - 32.0 pg [facility] Mean Cell Hemoglobin Concentration 33.3 31.7 - 35.0 g/dL [facility] Platelet 268 145 - 357 x10(3)/mc L [facility] RDW Standard Deviation 46.3(H) 37.0 - 46.0 fL [facility] RDW coefficient of variation 14.8(H) 11.5 - 14.1 % [facility] Mean Platelet Volume 9.2 7.6 - 12.9 fL [facility] NRBC% auto 0.0 % [facility] NRBC Absolute 0.000 0.000 - 0.000 x10(3)/mc L [facility] Blood 03/24/2023 3:51 AM EDT 03/24/2023 4:09 AM EDT Narrative Resulting Agency Comment Spec In Lab Natalee Winn MD HEMATOLOGY ORDERABLE S [facility] [place] [address] * (ABNORMAL) Comprehensive metabolic panel (non-fasting) (03/24/2023 3:51 AM EDT) Glucose 81 65 - 199 mg/dL [facility] Comment:Diabetes: >=200 mg/d L plus symptoms Blood Urea Nitrogen 5(L) 8 - 18 mg/dL [facility] Creatinine 0.65(L) 0.70 - 1.20 mg/dL [facility] Sodium 141 135 - 145 mmol/L [facility] Potassium Not Perf 3.5 - 5.0 [facility] Comment: Unable to quantitate due to sample hemolysis. ??Sample redraw suggested. Called by: GUCCI, Read back by: aCndelaria Fish, Date/Time:03/24/23 04:45. Please note: ??Patients with WBC >100,000 may have falsely elevated Potassium levels. ??For accurate Potassium quantification in these patients send serum separator tube (gold top) for subsequent determinations. ??Contact the Clinical Chemistry Laboratory if there are any questions. Chloride 104 98 - 107 mmol/L [facility] Carbon Dioxide 29 22 - 31 mmol/L [facility] Anion Gap 8 5 - 15 mmol/L [facility] Calcium 8.3(L) 8.5 - 10.5 mg/dL [facility] Protein, Total 5.1(L) 6.1 - 8.0 g/dL [facility] Albumin 3.0(L) 3.2 - 5.2 g/dL [facility] Aspartate Aminotransferase Not Perf 0 - 30 [facility] Comment: Unable to quantitate due to sample hemolysis. ??Sample redraw suggested. Called by: GUCCI, Read back by: Candelaria Fish, Date/Time:03/24/23 04:45. Alanine Aminotransferase Not Perf 0 - 30 [facility] Comment: Unable to quantitate due to sample hemolysis. ??Sample redraw suggested. Called by: GUCCI, Read back by: Candelaria Fish, Date/Time:03/24/23 04:45. Alkaline Phosphatase 103 35 - 105 unit/L [facility] Bilirubin, Total 0.7 0.2 - 1.3 mg/dL [facility] Est Glomerular Filtration Rate 111 >=60 mL/min/1. 73 m?? [facility] Comment: This patient's estimated GFR [...] In Lab Natalee Winn MD CHEMISTRY ORDERABLES [facility] [place] [address] * Phosphorus (03/24/2023 3:51 AM EDT) Pathologist [facility] Phosphorus 3.1 2.5 - 4.5 mg/dL [facility] Blood 03/24/2023 3:51 AM EDT 03/24/2023 4:09 AM EDT Narrative Resulting Agency Comment Spec In Lab Natalee Winn MD CHEMISTRY ORDERABLES Performing Organization Address City/[facility]/ZIP Co de Phone Number [facility] [place] [address] * Magnesium (03/24/2023 3:51 AM EDT) Pathologist [facility] Magnesium 0.75 0.69 - 1.07 mmol/L [facility] Blood 03/24/2023 3:51 AM EDT 03/24/2023 4:09 AM EDT Narrative Resulting Agency Comment Spec In Lab Natalee Winn MD CHEMISTRY ORDERABLES Performing Organization Address City/[facility] [[email or web address]] Co de Phone Number [facility] [place] [address] * (ABNORMAL) Differential, Automated (03/23/2023 8:07 AM EDT) [facility] Neutrophil % 79.5 % [facility] Neutrophil Absolute 7.13(H) 1.70 - 6.10 x10(3)/mc L [facility] Lymph % 15.8 % [facility] Lymphocytes Abs 1.4 0.9 - 3.2 x10(3)/mc L [facility] Monocyte % 3.5 % [facility] Monocyte Abs 0.3 0.3 - 0.9 x10(3)/mc L [facility] Eos % 0.1 % [facility] Eosinophils Abs 0.0 0.0 - 0.4 x10(3)/mc L [facility] Basophil % 0.3 % [facility] Baso Absolute 0.0 0.0 - 0.1 x10(3)/mc L [facility] Immature Gran % 0.80 % [facility] Comment: Immature granulocytes(IG's)percentage and absolute count will include metamyelocytes, myelocytes, and promyelocytes. Blood smears from CBCs yielding IG's will be scanned manually for concordance. If this scan disagrees with the automated IG or if promyelocytes are noted, a manual differential will be performed. Immature Gran Absolute 0.07(H) 0.00 - 0.04 x10(3)/mc L [facility] Blood 03/23/2023 8:07 AM EDT 03/23/2023 8:20 AM EDT Narrative Resulting Agency Comment Spec In Lab Natalee Winn MD HEMATOLOGY ORDERABLE S [facility] [place] [address] * (ABNORMAL) Hemogram (03/23/2023 8:07 AM EDT) White Blood Cell 9.0 4.0 - 9.5 x10(3)/ L [facility] Red Blood Cell 3.52(L) 4.00 - 5.21 x10(6)/mc L [facility] Hemoglobin 10.2(L) 11.7 - 15.5 g/dL [facility] Hematocrit 30.2(L) 35.7 - 45.8 % [facility] Mean Cell Volume 85.8 82.6 - 94.4 fL [facility] Mean Cell Hemoglobin 29.0 27.1 - 32.0 pg [facility] Mean Cell Hemoglobin Concentration 33.8 31.7 - 35.0 g/dL [facility] Platelet 268 145 - 357 x10(3)/mc L [facility] RDW Standard Deviation 46.7(H) 37.0 - 46.0 fL [facility] RDW coefficient of variation 14.9(H) 11.5 - 14.1 % [facility] Mean Platelet Volume 9.6 7.6 - 12.9 fL [facility] NRBC% auto 0.0 % [facility] NRBC Absolute 0.000 0.000 - 0.000 x10(3)/ L [facility] Blood 03/23/2023 8:07 AM EDT 03/23/2023 8:20 AM EDT Narrative Resulting Agency Comment Spec In Lab Natalee Winn MD HEMATOLOGY ORDERABLE S [facility] [place] [address] * (ABNORMAL) Differential, Automated (03/23/2023 3:39 AM EDT) Neutrophil % 87.3 % [facility] Neutrophil Absolute 6.54(H) 1.70 - 6.10 x10(3)/mc L [facility] Lymph % 9.7 % [facility] Lymphocytes Abs 0.7(L) 0.9 - 3.2 x10(3)/mc L [facility] Monocyte % 2.0 % [facility] Monocyte Abs 0.2(L) 0.3 - 0.9 x10(3)/mc L [facility] Eos % 0.1 % [facility] Eosinophils Abs 0.0 0.0 - 0.4 x10(3)/mc L [facility] Basophil % 0.1 % [facility] Baso Absolute 0.0 0.0 - 0.1 x10(3)/mc L [facility] Immature Gran % 0.80 % [facility] Comment: Immature granulocytes(IG's)percentage and absolute count will include metamyelocytes, myelocytes, and promyelocytes. Blood smears from CBCs yielding IG's will be scanned manually for concordance. If this scan disagrees with the automated IG or if promyelocytes are noted, a manual differential will be performed. Immature Gran Absolute 0.06(H) 0.00 - 0.04 x10(3)/mc L [facility] Blood 03/23/2023 3:39 AM EDT 03/23/2023 3:49 AM EDT Narrative Resulting Agency Comment Spec In Lab Natalee Winn MD HEMATOLOGY ORDERABLE S [facility] [place] [address] * (ABNORMAL) Hemogram (03/23/2023 3:39 AM EDT) White Blood Cell 7.5 4.0 - 9.5 x10(3)/mc L [facility] Red Blood Cell 3.72(L) 4.00 - 5.21 x10(6)/mc L [facility] Hemoglobin 10.5(L) 11.7 - 15.5 g/dL [facility] Hematocrit 31.8(L) 35.7 - 45.8 % [facility] Mean Cell Volume 85.5 82.6 - 94.4 fL [facility] Mean Cell Hemoglobin 28.2 27.1 - 32.0 pg [facility] Mean Cell Hemoglobin Concentration 33.0 31.7 - 35.0 g/dL [facility] Platelet 263 145 - 357 x10(3)/mc L [facility] RDW Standard Deviation 47.2(H) 37.0 - 46.0 fL [facility] RDW coefficient of variation 14.9(H) 11.5 - 14.1 % [facility] Mean Platelet Volume 9.4 7.6 - 12.9 fL [facility] NRBC% auto 0.0 % [facility] NRBC Absolute 0.000 0.000 - 0.000 x10(3)/ L [facility] Blood 03/23/2023 3:39 AM EDT 03/23/2023 3:49 AM EDT Narrative Resulting Agency Comment Spec In Lab Natalee Winn MD HEMATOLOGY ORDERABLE S Performing Organization Address City/State/[facility] [[email or web address]] Co de Phone Number [facility] [place] [address] * (ABNORMAL) Comprehensive metabolic panel (non-fasting) (03/23/2023 3:39 AM EDT) Glucose 111 65 - 199 mg/dL [facility] Comment:Diabetes: >=200 mg/d L plus symptoms Blood Urea Nitrogen 6(L) 8 - 18 mg/dL [facility] Creatinine 0.61(L) 0.70 - 1.20 mg/dL [facility] Sodium 139 135 - 145 mmol/L [facility] Potassium 4.3 3.5 - 5.0 mmol/L [facility] Comment: Please note: ??Patients with WBC >100,000 may have falsely elevated Potassium levels. ??For accurate Potassium quantification in these patients send serum separator tube (gold top) for subsequent determinations. ??Contact the Clinical Chemistry Laboratory if there are any questions. Chloride 103 98 - 107 mmol/L [facility] Carbon Dioxide 27 22 - 31 mmol/L [facility] Anion Gap 9 5 - 15 mmol/L [facility] Calcium 8.8 8.5 - 10.5 mg/dL [facility] Protein, Total 5.4(L) 6.1 - 8.0 g/dL [facility] Albumin 3.2 3.2 - 5.2 g/dL [facility] Aspartate Aminotransferase 39(H) 0 - 30 unit/L [facility] Alanine Aminotransferase 37(H) 0 - 30 unit/L [facility] Alkaline Phosphatase 107(H) 35 - 105 unit/L [facility] Bilirubin, Total 0.7 0.2 - 1.3 mg/dL [facility] Est Glomerular Filtration Rate 112 >=60 mL/min/1. 73 m?? [facility] Comment: This patient's estimated GFR [...] In Lab Natalee Winn MD CHEMISTRY ORDERABLES [facility] [place] [address] * Phosphorus (03/23/2023 3:39 AM EDT) Phosphorus 3.4 2.5 - 4.5 mg/dL [facility] Blood 03/23/2023 3:39 AM EDT 03/23/2023 3:49 AM EDT Narrative Resulting Agency Comment Spec In Lab Natalee Winn MD CHEMISTRY ORDERABLES Performing Organization Address [facility] [[email or web address]] Co de Phone Number [facility] [place] [address] * Magnesium (03/23/2023 3:39 AM EDT) Magnesium 0.80 0.69 - 1.07 mmol/L [facility] Blood 03/23/2023 3:39 AM EDT 03/23/2023 3:49 AM EDT Narrative Resulting Agency Comment Spec In Lab Natalee Winn MD CHEMISTRY ORDERABLES Performing Organization Address [facility] [[email or web address]] Co de Phone Number [facility] [place] [phone] * POCT Glucose (03/22/2023 9:46 PM EDT) Glucose, POC 85 65 - 199 mg/dL [facility] Comment: Supplemental ranges: <140 mg/dL before meals <180 mg/dL all other times of the day Blood 03/22/2023 9:46 PM EDT 03/22/2023 9:46 PM EDT Iram Borrero MD POINT OF CARE TEST O RDERABLES Performing Organization Address [facility] [[email or web address]] Co de Phone Number [facility] [place] [address] * POCT Glucose (03/22/2023 2:32 PM EDT) Glucose, POC 90 65 - 199 mg/dL [facility] Comment: Supplemental ranges: <140 mg/dL before meals <180 mg/dL all other times of the day Blood 03/22/2023 2:32 PM EDT 03/22/2023 2:32 PM EDT Iram Borrero MD POINT OF CARE TEST O RDERABLES [facility] [place] [address] * (ABNORMAL) Differential, Automated (03/22/2023 4:17 AM EDT) Neutrophil % 50.0 % [facility] Neutrophil Absolute 4.00 1.70 - 6.10 x10(3)/mc L [facility] Lymph % 42.9 % [facility] Lymphocytes Abs 3.4(H) 0.9 - 3.2 x10(3)/mc L [facility] Monocyte % 5.1 % [facility] Monocyte Abs 0.4 0.3 - 0.9 x10(3)/mc L [facility] Eos % 1.2 % [facility] Eosinophils Abs 0.1 0.0 - 0.4 x10(3)/mc L [facility] Basophil % 0.2 % [facility] Baso Absolute 0.0 0.0 - 0.1 x10(3)/mc L [facility] Immature Gran % 0.60 % [facility] Comment: Immature granulocytes(IG's)percentage and absolute count will include metamyelocytes, myelocytes, and promyelocytes. Blood smears from CBCs yielding IG's will be scanned manually for concordance. If this scan disagrees with the automated IG or if promyelocytes are noted, a manual differential will be performed. Immature Gran Absolute 0.05(H) 0.00 - 0.04 x10(3)/mc L [facility] Blood 03/22/2023 4:17 AM EDT 03/22/2023 4:29 AM EDT Narrative Resulting Agency Comment Spec In Lab Lisandro Araya MD HEMATOLOGY ORDERABLE S [facility] [place] [address] * (ABNORMAL) Hemogram (03/22/2023 4:17 AM EDT) White Blood Cell 8.0 4.0 - 9.5 x10(3)/mc L [facility] Red Blood Cell 4.41 4.00 - 5.21 x10(6)/mc L [facility] Hemoglobin 12.6 11.7 - 15.5 g/dL [facility] Hematocrit 37.3 35.7 - 45.8 % [facility] Mean Cell Volume 84.6 82.6 - 94.4 fL [facility] Mean Cell Hemoglobin 28.6 27.1 - 32.0 pg [facility] Mean Cell Hemoglobin Concentration 33.8 31.7 - 35.0 g/dL [facility] Platelet 384(H) 145 - 357 x10(3)/mc L [facility] RDW Standard Deviation 44.9 37.0 - 46.0 fL [facility] RDW coefficient of variation 14.6(H) 11.5 - 14.1 % [facility] Mean Platelet Volume 9.5 7.6 - 12.9 fL [facility] NRBC% auto 0.0 % [facility] NRBC Absolute 0.000 0.000 - 0.000 x10(3)/ L [facility] Blood 03/22/2023 4:17 AM EDT 03/22/2023 4:29 AM EDT Narrative Resulting Agency Comment Spec In Lab Lisandro Araya MD HEMATOLOGY ORDERABLE S [facility] [place] [address] * (ABNORMAL) Comprehensive metabolic panel (non-fasting) (03/22/2023 4:17 AM EDT) Glucose 101 65 - 199 mg/dL [facility] Comment:Diabetes: >=200 mg/d L plus symptoms Blood Urea Nitrogen 7(L) 8 - 18 mg/dL [facility] Creatinine 0.69(L) 0.70 - 1.20 mg/dL [facility] Sodium 140 135 - 145 mmol/L [facility] Potassium 3.4(L) 3.5 - 5.0 mmol/L [facility] Comment: Please note: ??Patients with WBC >100,000 may have falsely elevated Potassium levels. ??For accurate Potassium quantification in these patients send serum separator tube (gold top) for subsequent determinations. ??Contact the Clinical Chemistry Laboratory if there are any questions. Chloride 98 98 - 107 mmol/L [facility] Carbon Dioxide 32(H) 22 - 31 mmol/L [facility] Anion Gap 10 5 - 15 mmol/L [facility] Calcium 9.0 8.5 - 10.5 mg/dL [facility] Protein, Total 6.2 6.1 - 8.0 g/dL [facility] Albumin 3.8 3.2 - 5.2 g/dL [facility] Aspartate Aminotransferase 30 0 - 30 unit/L [facility] Alanine Aminotransferase 37(H) 0 - 30 unit/L [facility] Alkaline Phosphatase 118(H) 35 - 105 unit/L [facility] Bilirubin, Total 0.9 0.2 - 1.3 mg/dL [facility] Est Glomerular Filtration Rate 109 >=60 mL/min/1. 73 m?? [facility] Comment: This patient's estimated GFR [...] In Lab Natalee Winn MD CHEMISTRY ORDERABLES [facility] [place] [address] * Phosphorus (03/22/2023 4:17 AM EDT) Phosphorus 3.1 2.5 - 4.5 mg/dL [facility] Blood 03/22/2023 4:17 AM EDT 03/22/2023 4:29 AM EDT Narrative Resulting Agency Comment Spec In Lab Natalee Winn MD CHEMISTRY ORDERABLES Performing Organization Address City/[facility]/ZIP Co de Phone Number [facility] [place] [address] * Magnesium (03/22/2023 4:17 AM EDT) Magnesium 0.94 0.69 - 1.07 mmol/L [facility] Blood 03/22/2023 4:17 AM EDT 03/22/2023 4:29 AM EDT Narrative Resulting Agency Comment Spec In Lab Natalee Winn MD CHEMISTRY ORDERABLES Performing Organization Address [facility] [[email or web address]] Co de Phone Number [facility] [place] [address] * Vitamin B12 (03/21/2023 6:00 PM EDT) Vitamin B12 612 232 - 1,245 pg/mL [facility] Blood 03/21/2023 6:00 PM EDT 03/21/2023 6:13 PM EDT Narrative Resulting Agency Comment Spec In Lab Iram Borrero MD CHEMISTRY ORDERABLES Performing Organization Address [facility] [[email or web address]] Co de Phone Number [facility] [place] [address] * (ABNORMAL) Folate, serum (03/21/2023 6:00 PM EDT) Folate 4.0(L) 4.8 - 24.2 ng/mL [facility] Blood 03/21/2023 6:00 PM EDT 03/21/2023 6:13 PM EDT Narrative Resulting Agency Comment Spec In Lab Iram Borrero MD CHEMISTRY ORDERABLES Performing Organization Address City/[facility] [[email or web address]] Co de Phone Number [facility] [place] [address] * (ABNORMAL) Vitamin B1, whole blood (03/21/2023 6:00 PM EDT) Vit B1 Lvl Wb (MAY) 32(L) 70 - 180 nmol/L [facility] Comment: ADDITIONAL INFORMATION This test was developed and its performance characteristics determined by [facility] in a manner consistent with CLIA requirements. This test has not been cleared or approved by the U.S. Food and Drug Administration. Test Performed by: [facility] [address] [place] [address] Sports Marketing Coordinator: Erlin Orlando M.D. Ph.D.; CLIA# [id number] Blood 03/21/2023 6:00 PM EDT 03/22/2023 12:57 PM EDT Narrative Resulting Agency Comment Spec In Lab Iram Borrero MD LAB SEND OUT ORDERAB LES [facility] [place] [address] * CT Head wo Contrast (Generic) (03/21/2023 [...] who have questions please contact the health adult day care worker that requested your imaging first. ? Electronically signed by: Erlin Castorena DO, [facility] ??([phone]), at 03/21/2023 12:49 PM Narrative 03/21/2023 12:49 [...] patients who have questions please contactthe health adult day care worker that requested your imaging first. Electronically signed by: Erlin Castorena DO, [facility]([phone]), at 03/21/2023 12:49 PM Iram Borrero MD [facility] CT ORDERABLES * (ABNORMAL) Differential, Automated (03/21/2023 3:46 AM EDT) Neutrophil % 66.3 % [facility] Neutrophil Absolute 5.44 1.70 - 6.10 x10(3)/mc L [facility] Lymph % 25.6 % [facility] Lymphocytes Abs 2.1 0.9 - 3.2 x10(3)/mc L [facility] Monocyte % 5.6 % [facility] Monocyte Abs 0.5 0.3 - 0.9 x10(3)/mc L [facility] Eos % 1.1 % [facility] Eosinophils Abs 0.1 0.0 - 0.4 x10(3)/mc L [facility] Basophil % 0.5 % [facility] Baso Absolute 0.0 0.0 - 0.1 x10(3)/mc L [facility] Immature Gran % 0.90 % [facility] Comment: Immature granulocytes(IG's)percentage and absolute count will include metamyelocytes, myelocytes, and promyelocytes. Blood smears from CBCs yielding IG's will be scanned manually for concordance. If this scan disagrees with the automated IG or if promyelocytes are noted, a manual differential will be performed. Immature Gran Absolute 0.07(H) 0.00 - 0.04 x10(3)/ L [facility] Blood 03/21/2023 3:46 AM EDT 03/21/2023 4:07 AM EDT Narrative Resulting Agency Comment Spec In Lab Lisandro Araya MD HEMATOLOGY ORDERABLE S Performing Organization Address City/State/[facility] [[email or web address]] Co de Phone Number [facility] [place] [address] * (ABNORMAL) Hemogram (03/21/2023 3:46 AM EDT) White Blood Cell 8.2 4.0 - 9.5 x10(3)/mc L [facility] Red Blood Cell 4.60 4.00 - 5.21 x10(6)/ L [facility] Hemoglobin 13.3 11.7 - 15.5 g/dL [facility] Hematocrit 37.6 35.7 - 45.8 % [facility] Mean Cell Volume 81.7(L) 82.6 - 94.4 fL [facility] Mean Cell Hemoglobin 28.9 27.1 - 32.0 pg [facility] Mean Cell Hemoglobin Concentration 35.4(H) 31.7 - 35.0 g/dL [facility] Platelet 322 145 - 357 x10(3)/mc L [facility] RDW Standard Deviation 44.0 37.0 - 46.0 fL [facility] RDW coefficient of variation 14.8(H) 11.5 - 14.1 % [facility] Mean Platelet Volume 9.1 7.6 - 12.9 fL [facility] NRBC% auto 0.0 % [facility] NRBC Absolute 0.000 0.000 - 0.000 x10(3)/mc L [facility] Blood 03/21/2023 3:46 AM EDT 03/21/2023 4:07 AM EDT Narrative Resulting Agency Comment Spec In Lab Lisandro Araya MD HEMATOLOGY ORDERABLE S [facility] [place] [address] * (ABNORMAL) Comprehensive metabolic panel (non-fasting) (03/21/2023 3:46 AM EDT) Glucose 105 65 - 199 mg/dL [facility] Comment:Diabetes: >=200 mg/d L plus symptoms Blood Urea Nitrogen 6(L) 8 - 18 mg/dL [facility] Creatinine 0.54(L) 0.70 - 1.20 mg/dL [facility] Sodium 135 135 - 145 mmol/L [facility] Potassium 3.8 3.5 - 5.0 mmol/L [facility] Comment: Please note: ??Patients with WBC >100,000 may have falsely elevated Potassium levels. ??For accurate Potassium quantification in these patients send serum separator tube (gold top) for subsequent determinations. ??Contact the Clinical Chemistry Laboratory if there are any questions. Chloride 98 98 - 107 mmol/L [facility] Carbon Dioxide 27 22 - 31 mmol/L [facility] Anion Gap 10 5 - 15 mmol/L [facility] Calcium 8.4(L) 8.5 - 10.5 mg/dL [facility] Protein, Total 6.0(L) 6.1 - 8.0 g/dL [facility] Albumin 3.6 3.2 - 5.2 g/dL [facility] Aspartate Aminotransferase 24 0 - 30 unit/L [facility] Alanine Aminotransferase 43(H) 0 - 30 unit/L [facility] Alkaline Phosphatase 116(H) 35 - 105 unit/L [facility] Bilirubin, Total 0.9 0.2 - 1.3 mg/dL [facility] Est Glomerular Filtration Rate 116 >=60 mL/min/1. 73 m?? [facility] Comment: This patient's estimated GFR [...] Winn MD CHEMISTRY ORDERABLES Performing Organization Address City/[facility]/ZIP Co de Phone Number [facility] [place] [address] * Phosphorus (03/21/2023 3:46 AM EDT) Phosphorus 3.0 2.5 - 4.5 mg/dL [facility] Blood 03/21/2023 3:46 AM EDT 03/21/2023 4:07 AM EDT Narrative Resulting Agency Comment Spec In Lab Natalee Winn MD CHEMISTRY ORDERABLES [facility] [place] [address] * Magnesium (03/21/2023 3:46 AM EDT) Magnesium 0.81 0.69 - 1.07 mmol/L [facility] Blood 03/21/2023 3:46 AM EDT 03/21/2023 4:07 AM EDT Narrative Resulting Agency Comment Spec In Lab Natalee Winn MD CHEMISTRY ORDERABLES [facility] [place] [address] * (ABNORMAL) IgG 4 (03/21/2023 3:46 AM EDT) IgG 4 2.7(L) 3.9 - 86.4 mg/dL [facility] Blood 03/21/2023 3:46 AM EDT 03/21/2023 4:07 AM EDT Narrative Resulting Agency Comment Spec In Lab Natalee Winn MD IMMUNOLOGY ORDERABLE S Performing Organization Address [facility] [[email or web address]] Co de Phone Number [facility] [place] [address] * POCT Glucose (03/21/2023 3:45 AM EDT) Glucose, POC 97 65 - 199 mg/dL [facility] Comment: Supplemental ranges: <140 mg/dL before meals <180 mg/dL all other times of the day Blood 03/21/2023 3:45 AM EDT 03/21/2023 3:45 AM EDT Iram Borrero MD POINT OF CARE TEST O RDERABLES Performing Organization Address [facility] [[email or web address]] Co de Phone Number [facility] [place] [address] * POCT Glucose (03/21/2023 12:02 AM EDT) Glucose, POC 108 65 - 199 mg/dL [facility] Comment: Supplemental ranges: <140 mg/dL before meals <180 mg/dL all other times of the day Blood 03/21/2023 12:0 2 AM EDT 03/21/2023 12:02 AM EDT Iram Borrero MD POINT OF CARE TEST O RDERABLES Performing Organization Address City/[facility]/ZIP Co de Phone Number [facility] [place] [address] * POCT Glucose (03/20/2023 9:38 PM EDT) Glucose, POC 95 65 - 199 mg/dL [facility] Comment: Supplemental ranges: <140 mg/dL before meals <180 mg/dL all other times of the day Blood 03/20/2023 9:38 PM EDT 03/20/2023 9:38 PM EDT Iram Borrero MD POINT OF CARE TEST O RDERABLES [facility] [place] [address] * UPPER GI ENDOSCOPY (03/20/2023 10:26 AM EDT) UPPER GI ENDOSCOPY [facility] Endoscopy Procedure Date: 03/20/2023 10:26 AM ? Patient Name: Leandra Wilks ? N: [id number] ? Date of : 1980 ? Age: 43 ? Order #: [id number] ? Instrument Name: [id number] ? Procedure: ? Upper GI endoscopy Indications: [...] appearing mucosa. This was traversed. The ? [id number] limb was characterized by healthy ? appearing [...] Hepatic Function Panel (03/20/2023 2:32 AM EDT) Protein, Total 5.8(L) 6.1 - 8.0 g/dL [facility] Albumin 3.4 3.2 - 5.2 g/dL [facility] Aspartate Aminotransferase 42(H) 0 - 30 unit/L [facility] Alanine Aminotransferase 57(H) 0 - 30 unit/L [facility] Alkaline Phosphatase 111(H) 35 - 105 unit/L [facility] Bilirubin, Total 1.0 0.2 - 1.3 mg/dL [facility] Bilirubin, Direct 0.4(H) 0.0 - 0.3 mg/dL [facility] Blood Venous Draw / Unknown 03/20/2023 2:32 AM EDT 03/20/2023 2:56 AM EDT Narrative Resulting Agency Comment Spec In Lab Dick Bower MD CHEMISTRY ORDERABLES Performing Organization Address City/[facility]/ZIP Co de Phone Number [facility] [place] [address] * (ABNORMAL) Differential, Automated (03/20/2023 2:32 AM EDT) Neutrophil % 57.4 % [facility] Neutrophil Absolute 3.08 1.70 - 6.10 x10(3)/mc L [facility] Lymph % 32.5 % [facility] Lymphocytes Abs 1.7 0.9 - 3.2 x10(3)/mc L [facility] Monocyte % 7.1 % [facility] Monocyte Abs 0.4 0.3 - 0.9 x10(3)/mc L [facility] Eos % 1.3 % [facility] Eosinophils Abs 0.1 0.0 - 0.4 x10(3)/mc L [facility] Basophil % 0.6 % [facility] Baso Absolute 0.0 0.0 - 0.1 x10(3)/mc L [facility] Immature Gran % 1.10 % [facility] Comment: Immature granulocytes(IG's)percentage and absolute count will include metamyelocytes, myelocytes, and promyelocytes. Blood smears from CBCs yielding IG's will be scanned manually for concordance. If this scan disagrees with the automated IG or if promyelocytes are noted, a manual differential will be performed. Immature Gran Absolute 0.06(H) 0.00 - 0.04 x10(3)/ L [facility] Blood 03/20/2023 2:32 AM EDT 03/20/2023 2:54 AM EDT Narrative Resulting Agency Comment Spec In Lab Lisandro Araya MD HEMATOLOGY ORDERABLE S [facility] [place] [address] * (ABNORMAL) Hemogram (03/20/2023 2:32 AM EDT) White Blood Cell 5.4 4.0 - 9.5 x10(3)/mc L [facility] Red Blood Cell 4.23 4.00 - 5.21 x10(6)/ L [facility] Hemoglobin 12.1 11.7 - 15.5 g/dL [facility] Hematocrit 35.0(L) 35.7 - 45.8 % [facility] Mean Cell Volume 82.7 82.6 - 94.4 fL [facility] Mean Cell Hemoglobin 28.6 27.1 - 32.0 pg [facility] Mean Cell Hemoglobin Concentration 34.6 31.7 - 35.0 g/dL [facility] Platelet 319 145 - 357 x10(3)/mc L [facility] RDW Standard Deviation 44.6 37.0 - 46.0 fL [facility] RDW coefficient of variation 14.7(H) 11.5 - 14.1 % [facility] Mean Platelet Volume 9.2 7.6 - 12.9 fL [facility] NRBC% auto 0.0 % [facility] NRBC Absolute 0.000 0.000 - 0.000 x10(3)/mc L [facility] Blood 03/20/2023 2:32 AM EDT 03/20/2023 2:54 AM EDT Narrative Resulting Agency Comment Spec In Lab Lisandro Araya MD HEMATOLOGY ORDERABLE S Performing Organization Address City/[facility]/ZIP Co de Phone Number [facility] [place] [address] * Phosphorus (03/20/2023 2:32 AM EDT) Phosphorus 3.6 2.5 - 4.5 mg/dL [facility] Blood 03/20/2023 2:32 AM EDT 03/20/2023 2:53 AM EDT Narrative Resulting Agency Comment Spec In Lab Natalee Winn MD CHEMISTRY ORDERABLES Performing Organization Address [facility] [[email or web address]] Co de Phone Number [facility] [place] [address] * Magnesium (03/20/2023 2:32 AM EDT) Magnesium 0.83 0.69 - 1.07 mmol/L [facility] Blood 03/20/2023 2:32 AM EDT 03/20/2023 2:53 AM EDT Narrative Resulting Agency Comment Spec In Lab Natalee Winn MD CHEMISTRY ORDERABLES Performing Organization Address [facility] [[email or web address]] Co de Phone Number [facility] [place] [address] * (ABNORMAL) Basic Metabolic Panel (non-fasting) (03/20/2023 2:32 AM EDT) Glucose 122 65 - 199 mg/dL [facility] Comment:Diabetes: >=200 mg/d L plus symptoms Blood Urea Nitrogen 4(L) 8 - 18 mg/dL [facility] Creatinine 0.42(L) 0.70 - 1.20 mg/dL [facility] Sodium 134(L) 135 - 145 mmol/L [facility] Potassium 4.1 3.5 - 5.0 mmol/L [facility] Comment: Please note: ??Patients with WBC >100,000 may have falsely elevated Potassium levels. ??For accurate Potassium quantification in these patients send serum separator tube (gold top) for subsequent determinations. ??Contact the Clinical Chemistry Laboratory if there are any questions. Chloride 97(L) 98 - 107 mmol/L [facility] Carbon Dioxide 26 22 - 31 mmol/L [facility] Anion Gap 11 5 - 15 mmol/L [facility] Calcium 8.1(L) 8.5 - 10.5 mg/dL [facility] Est Glomerular Filtration Rate 123 >=60 mL/min/1. 73 m?? [facility] Comment: This patient's estimated GFR [...] In Lab Iram Borrero MD CHEMISTRY ORDERABLES [facility] [place] [address] * MRI Cholangiopancreatography WO Contrast (03/19/2023 5:40 [...] who have questions please contact the health adult day care worker that requested your imaging first. ? Electronically signed by: Maximo Forrest DO, [facility] ([phone]), at 03/20/2023 7:59 AM Narrative 03/20/2023 7:59 [...] visceral organs, gastrointestinal tract, and vascular structures. Sales Representative Consultant Images: Noncontributory. Inferior thorax: Visualized structures within [...] thevisceral organs, gastrointestinal tract, and vascular structures. Sales Representative Consultant Images: Noncontributory. Inferior thorax: Visualized structures within [...] patients who have questions please contactthe health adult day care worker that requested your imaging first. Electronically signed by: Maximo Forrest DO [facility]([phone]), at 03/20/2023 7:59 AM Iram Borrero MD IMG MRI ORDERABLES * (ABNORMAL) Phosphorus (03/19/2023 3:32 PM EDT) Phosphorus 2.3(L) 2.5 - 4.5 mg/dL [facility] Comment:result rechecked-nb Blood 03/19/2023 3:32 PM EDT 03/19/2023 3:53 PM EDT Narrative Resulting Agency Comment Spec In Lab Iram Borrero MD CHEMISTRY ORDERABLES Performing Organization Address [facility] [[email or web address]] Co de Phone Number [facility] [place] [address] * (ABNORMAL) Magnesium (03/19/2023 3:32 PM EDT) Magnesium 0.63(L) 0.69 - 1.07 mmol/L [facility] Blood 03/19/2023 3:32 PM EDT 03/19/2023 3:53 PM EDT Narrative Resulting Agency Comment Spec In Lab Iram Borrero MD CHEMISTRY ORDERABLES Performing Organization Address [facility] [[email or web address]] Co de Phone Number [facility] [place] [address] * (ABNORMAL) Basic Metabolic Panel (non-fasting) (03/19/2023 3:32 PM EDT) Glucose 100 65 - 199 mg/dL [facility] Comment:Diabetes: >=200 mg/d L plus symptoms Blood Urea Nitrogen 5(L) 8 - 18 mg/dL [facility] Creatinine 0.40(L) 0.70 - 1.20 mg/dL [facility] Sodium 135 135 - 145 mmol/L [facility] Potassium 4.1 3.5 - 5.0 mmol/L [facility] Comment: Please note: ??Patients with WBC >100,000 may have falsely elevated Potassium levels. ??For accurate Potassium quantification in these patients send serum separator tube (gold top) for subsequent determinations. ??Contact the Clinical Chemistry Laboratory if there are any questions. Chloride 97(L) 98 - 107 mmol/L [facility] Carbon Dioxide 26 22 - 31 mmol/L [facility] Anion Gap 12 5 - 15 mmol/L [facility] Calcium 8.6 8.5 - 10.5 mg/dL [facility] Est Glomerular Filtration Rate 124 >=60 mL/min/1. 73 m?? [facility] Comment: This patient's estimated GFR [...] Borrero MD CHEMISTRY ORDERABLES Performing Organization Address [facility]/ZIP Co de Phone Number [facility] [place] [address] * XR Fluoro Barium Swallow (Double Contrast) [...] who have questions please contact the health adult day care worker that requested your imaging first. ? Electronically signed by: Poppy Webster MD, [facility] ([phone]), at 03/19/2023 1:29 PM Narrative 03/19/2023 1:29 [...] patients who have questions please contactthe health adult day care worker that requested your imaging first. Electronically signed by: Poppy Webster MD, [facility]([phone]), at 03/19/2023 1:29 PM Iram Borrero MD IMG FLUORO ORDERABLE S * POCT Glucose (03/19/2023 11:44 AM EDT) [facility] Signature Glucose, POC 93 65 - 199 mg/dL [facility] Comment: Supplemental ranges: <140 mg/dL before meals <180 mg/dL all other times of the day Blood 03/19/2023 11:4 4 AM EDT 03/19/2023 11:44 AM EDT Iram Borrero MD POINT OF CARE TEST O RDERABLES [facility] [place] [address] * POCT Glucose (03/19/2023 7:42 AM EDT) Glucose, POC 92 65 - 199 mg/dL [facility] Comment: Supplemental ranges: <140 mg/dL before meals <180 mg/dL all other times of the day Blood 03/19/2023 7:42 AM EDT 03/19/2023 7:42 AM EDT Iram Borrero MD POINT OF CARE TEST O RDERABLES [facility] [place] [address] * (ABNORMAL) Differential, Automated (03/19/2023 3:49 AM EDT) Pathologist [facility] Neutrophil % 63.3 % [facility] Neutrophil Absolute 5.94 1.70 - 6.10 x10(3)/ L [facility] Lymph % 27.2 % [facility] Lymphocytes Abs 2.6 0.9 - 3.2 x10(3)/[facility] Monocyte % 7.2 % [facility] Monocyte Abs 0.7 0.3 - 0.9 x10(3)/[facility] Eos % 1.5 % [facility] Eosinophils Abs 0.1 0.0 - 0.4 x10(3)/ L [facility] Basophil % 0.3 % [facility] Baso Absolute 0.0 0.0 - 0.1 x10(3)/[facility] Immature Gran % 0.50 % [facility] Comment: Immature granulocytes(IG's)percentage and absolute count will include metamyelocytes, myelocytes, and promyelocytes. Blood smears from CBCs yielding IG's will be scanned manually for concordance. If this scan disagrees with the automated IG or if promyelocytes are noted, a manual differential will be performed. Immature Gran Absolute 0.05(H) 0.00 - 0.04 x10(3)/mc L [facility] Blood 03/19/2023 3:49 AM EDT 03/19/2023 4:00 AM EDT Narrative Resulting Agency Comment Spec In Lab Dick Bower MD HEMATOLOGY ORDERABLE S [facility] [place] [address] * (ABNORMAL) Hemogram (03/19/2023 3:49 AM EDT) White Blood Cell 9.4 4.0 - 9.5 x10(3)/mc L [facility] Red Blood Cell 4.10 4.00 - 5.21 x10(6)/mc L [facility] Hemoglobin 12.0 11.7 - 15.5 g/dL [facility] Hematocrit 32.9(L) 35.7 - 45.8 % [facility] Mean Cell Volume 80.2(L) 82.6 - 94.4 fL [facility] Mean Cell Hemoglobin 29.3 27.1 - 32.0 pg [facility] Mean Cell Hemoglobin Concentration 36.5(H) 31.7 - 35.0 g/dL [facility] Platelet 272 145 - 357 x10(3)/mc L [facility] RDW Standard Deviation 42.3 37.0 - 46.0 fL [facility] RDW coefficient of variation 14.3(H) 11.5 - 14.1 % [facility] Mean Platelet Volume 9.4 7.6 - 12.9 fL [facility] NRBC% auto 0.2 % [facility] NRBC Absolute 0.020(H) 0.000 - 0.000 x10(3)/ L [facility] Blood 03/19/2023 3:49 AM EDT 03/19/2023 4:00 AM EDT Narrative Resulting Agency Comment Spec In Lab Dick Bower MD HEMATOLOGY ORDERABLE S [facility] [place] [address] * (ABNORMAL) Phosphorus (03/19/2023 3:49 AM EDT) Phosphorus 1.0(Critic al) 2.5 - 4.5 mg/dL [facility] Comment:called by benito/read b ack by joann rouse/ [id number] Blood 03/19/2023 3:49 AM EDT 03/19/2023 3:59 AM EDT Narrative Resulting Agency Comment Spec In Lab Natalee Winn MD CHEMISTRY ORDERABLES Performing Organization Address [facility]/ZIP Co de Phone Number [facility] [place] [address] * Magnesium (03/19/2023 3:49 AM EDT) Magnesium 0.69 0.69 - 1.07 mmol/L [facility] Blood 03/19/2023 3:49 AM EDT 03/19/2023 3:59 AM EDT Narrative Resulting Agency Comment Spec In Lab Natalee Winn MD CHEMISTRY ORDERABLES Performing Organization Address [facility] [facility] [[email or web address]] Co de Phone Number [facility] [place] [address] * (ABNORMAL) Basic Metabolic Panel (non-fasting) (03/19/2023 3:49 AM EDT) Glucose 84 65 - 199 mg/dL [facility] Comment:Diabetes: >=200 mg/d L plus symptoms Blood Urea Nitrogen 8 8 - 18 mg/dL [facility] Creatinine 0.41(L) 0.70 - 1.20 mg/dL [facility] Sodium 135 135 - 145 mmol/L [facility] Potassium 3.1(L) 3.5 - 5.0 mmol/L [facility] Comment: Please note: ??Patients with WBC >100,000 may have falsely elevated Potassium levels. ??For accurate Potassium quantification in these patients send serum separator tube (gold top) for subsequent determinations. ??Contact the Clinical Chemistry Laboratory if there are any questions. Chloride 97(L) 98 - 107 mmol/L [facility] Carbon Dioxide 27 22 - 31 mmol/L [facility] Anion Gap 11 5 - 15 mmol/L [facility] Calcium 8.7 8.5 - 10.5 mg/dL [facility] Est Glomerular Filtration Rate 124 >=60 mL/min/1. 73 m?? [facility] Comment: This patient's estimated GFR [...] Borrero MD CHEMISTRY ORDERABLES Performing Organization Address [facility] [[email or web address]] Co de Phone Number [facility] [place] [address] * POCT Glucose (03/19/2023 3:32 AM EDT) Glucose, POC 104 65 - 199 mg/dL [facility] Comment: Supplemental ranges: <140 mg/dL before meals <180 mg/dL all other times of the day Blood 03/19/2023 3:32 AM EDT 03/19/2023 3:32 AM EDT Iram Borrero MD POINT OF CARE TEST O RDERABLES Performing Organization Address City/[facility]/ZIP Co de Phone Number [facility] [place] [address] * POCT Glucose (03/19/2023 2:38 AM EDT) Glucose, POC 91 65 - 199 mg/dL [facility] Comment: Supplemental ranges: <140 mg/dL before meals <180 mg/dL all other times of the day Blood 03/19/2023 2:38 AM EDT 03/19/2023 2:38 AM EDT Iram Borrero MD POINT OF CARE TEST O RDERABLES Performing Organization Address [facility] [[email or web address]] Co de Phone Number [facility] [place] [address] * POCT Glucose (03/19/2023 1:22 AM EDT) Glucose, POC 151 65 - 199 mg/dL [facility] Comment: Supplemental ranges: <140 mg/dL before meals <180 mg/dL all other times of the day Blood 03/19/2023 1:22 AM EDT 03/19/2023 1:22 AM EDT Iram Borrero MD POINT OF CARE TEST O MANDY Performing Organization Address [facility] [[email or web address]] Co de Phone Number [facility] [place] [address] * POCT Glucose (03/19/2023 12:30 AM EDT) Glucose, POC 140 65 - 199 mg/dL [facility] Comment: Supplemental ranges: <140 mg/dL before meals <180 mg/dL all other times of the day Blood 03/19/2023 12:3 0 AM EDT 03/19/2023 12:30 AM EDT Iram Borrero MD POINT OF CARE TEST O RDERABLES Performing Organization Address [facility] [[email or web address]] Co de Phone Number [facility] [place] [address] * (ABNORMAL) BLOOD GAS 2 VENOUS (03/18/2023 11:10 PM EDT) pH, Venous 7.55(H) 7.32 - 7.42 [facility] PCO2, Venous 33(L) 41 - 51 mmHg [facility] PO2, Venous 42(H) 25 - 40 mmHg [facility] Bicarbonate, Venous 27.7 mmol/L [facility] Base Excess, Venous 5.3 mmol/L [facility] Hgb Blood Gas Not Perf 11.7 - 15.5 g/dL [facility] Oxyhemoglobin, Venous Not Perf % [facility] Carboxyhemoglob in, Venous Not Perf % [facility] Comment: Nonsmokers: 0.5-1.5% COHB Smokers: Variable, but usually less than 10% Toxic: 20-30% COHB Lethal: Greater than 60% COHB Methemoglobin, Venous Not Perf <=1.5 % [facility] Na Whole Blood 133(L) 135 - 145 mmol/L [facility] K Whole Blood 3.6 3.5 - 5.0 mmol/L [facility] Comment: Please note: Patients with WBC >100,000 may have falsely elevated Potassium levels. Contact the Clinical Chemistry Laboratory if there are any questions. ICa Whole Blood 1.09(L) 1.15 - 1.33 mmol/L [facility] Comment: Note: ??Total bilirubin higher than 20 mg/dL may lead to falsely low ionized calcium. CL Whole Blood 95(L) 98 - 107 mmol/L [facility] Gluc Whole Bld 144 65 - 199 mg/dL [facility] Comment:Diabetes: >=200 mg/d L plus symptoms Lactate WB 1.7 0.5 - 2.2 mmol/L [facility] Blood Gas Source Venous [facility] Blood 03/18/2023 11:1 0 PM EDT 03/18/2023 11:10 PM EDT Iram Borrero MD POINT OF CARE TEST O RDERABLES [facility] [place] [address] * (ABNORMAL) Beta Hydroxybutyrate (03/18/2023 11:08 PM EDT) Beta-hydroxybuturat e 1.33(H) 0.00 - 0.30 mmol/L [facility] Comment: This test has not been cleared by the [place] FDA. Performance characteristics of this test were determined by [facility] in accordance with CLIA requirements. This laboratory is qualified under CLIA to perform high-complexity testing. Blood 03/18/2023 11:0 8 PM EDT 03/18/2023 11:14 PM EDT Narrative Resulting Agency Comment Spec In Lab Iram Borrero MD CHEMISTRY ORDERABLES [facility] [place] [address] * (ABNORMAL) Basic Metabolic Panel (non-fasting) (03/18/2023 11:08 PM EDT) Glucose 144 65 - 199 mg/dL [facility] Comment:Diabetes: >=200 mg/d L plus symptoms Blood Urea Nitrogen 11 8 - 18 mg/dL [facility] Creatinine 0.40(L) 0.70 - 1.20 mg/dL [facility] Sodium 134(L) 135 - 145 mmol/L [facility] Potassium 3.3(L) 3.5 - 5.0 mmol/L [facility] Comment: Please note: ??Patients with WBC >100,000 may have falsely elevated Potassium levels. ??For accurate Potassium quantification in these patients send serum separator tube (gold top) for subsequent determinations. ??Contact the Clinical Chemistry Laboratory if there are any questions. Chloride 95(L) 98 - 107 mmol/L [facility] Carbon Dioxide 26 22 - 31 mmol/L [facility] Anion Gap 13 5 - 15 mmol/L [facility] Calcium 8.6 8.5 - 10.5 mg/dL [facility] Comment:reult rechecked-KS Est Glomerular Filtration Rate 124 >=60 mL/min/1. 73 m?? [facility] Comment: This patient's estimated GFR [...] Borrero MD CHEMISTRY ORDERABLES Performing Organization Address City/[facility] [[email or web address]] Co de Phone Number [facility] [place] [address] * POCT Glucose (03/18/2023 10:50 PM EDT) Glucose, POC 134 65 - 199 mg/dL [facility] Comment: Supplemental ranges: <140 mg/dL before meals <180 mg/dL all other times of the day Blood 03/18/2023 10:5 0 PM EDT 03/18/2023 10:50 PM EDT Iram Borrero MD POINT OF CARE TEST O RDERABLES Performing Organization Address [facility] [[email or web address]] Co de Phone Number [facility] [place] [address] * EKG 12 Lead (03/18/2023 9:35 PM EDT) Ventricular rate 95 BPM MUSE SYSTEM Atrial Rate 95 BPM MUSE SYSTEM P-R Interval 140 ms MUSE SYSTEM QRS Duration 90 ms MUSE SYSTEM Q-T Interval 426 ms MUSE SYSTEM QTC Calculated (Bezet) 535 ms MUSE SYSTEM Calculated P [place] 25 degrees MUSE SYSTEM Calculated R [place] 0 degrees MUSE SYSTEM Calculated T [place] -86 degrees MUSE SYSTEM INTERPRETATION Normal sinus rhythm Left ventricular hypertrophy with repolarization abnormality ( R in aVL ) Abnormal ECG When compared with ECG of 18-MAR-2023 20:24, (unconfirmed) No significant change was found Confirmed by MD Babita, Andres ([id number]) on 03/19/2023 2:23:56 PM MUSE SYSTEM 03/18/2023 9:35 PM EDT 03/19/2023 2:23 PM EDT Iram Borrero MD ECG ORDERABLES Performing Organization Address [facility] [[email or web address]] Co de Phone Number MUSE SYSTEM * EKG 12 Lead (03/18/2023 8:24 PM EDT) Ventricular rate 91 BPM MUSE SYSTEM Atrial Rate 91 BPM MUSE SYSTEM P-R Interval 144 ms MUSE SYSTEM QRS Duration 94 ms MUSE SYSTEM Q-T Interval 430 ms MUSE SYSTEM QTC Calculated (Bezet) 528 ms MUSE SYSTEM Calculated P [place] 27 degrees MUSE SYSTEM Calculated R [place] 2 degrees MUSE SYSTEM Calculated T [place] -60 degrees MUSE SYSTEM INTERPRETATION Normal sinus rhythm Left ventricular hypertrophy with repolarization abnormality ( R in aVL , [place] product ) Prolonged QT Abnormal ECG When [...] Lactate, whole blood, send to lab ([facility] [place]/[facility] [place] [facility]) (03/18/2023 5:01 PM EDT) Pathologist [facility] Lactate WB 1.6 0.5 - 2.2 mmol/L [facility] Blood 03/18/2023 5:01 PM EDT 03/18/2023 5:10 PM EDT Narrative Resulting Agency Comment Spec In Lab Pito Mclaughlin MD CHEMISTRY ORDERABL ES Performing Organization Address City/[facility]/ZIP Co de Phone Number [facility] [place] [address] * (ABNORMAL) Beta Hydroxybutyrate (03/18/2023 5:01 PM EDT) Beta-hydroxybuturat e 3.29(H) 0.00 - 0.30 mmol/L [facility] Comment: This test has not been cleared by the [place] FDA. Performance characteristics of this test were determined by [facility] in accordance with CLIA requirements. This laboratory is qualified under CLIA to perform high-complexity testing. Blood 03/18/2023 5:01 PM EDT 03/18/2023 5:11 PM EDT Narrative Resulting Agency Comment Spec In Lab Pito Mclaughlin MD CHEMISTRY ORDERABL ES Performing Organization Address City/[facility]/[place] [address] * (ABNORMAL) Differential, Automated (03/18/2023 3:49 PM EDT) Neutrophil % 78.5 % [facility] Neutrophil Absolute 7.98(H) 1.70 - 6.10 x10(3)/mc L [facility] Lymph % 15.0 % [facility] Lymphocytes Abs 1.5 0.9 - 3.2 x10(3)/mc L [facility] Monocyte % 5.3 % [facility] Monocyte Abs 0.5 0.3 - 0.9 x10(3)/[facility] Eos % 0.2 % [facility] Eosinophils Abs 0.0 0.0 - 0.4 x10(3)/[facility] Basophil % 0.3 % [facility] Baso Absolute 0.0 0.0 - 0.1 x10(3)/ L [facility] Immature Gran % 0.70 % [facility] Comment: Immature granulocytes(IG's)percentage and absolute count will include metamyelocytes, myelocytes, and promyelocytes. Blood smears from CBCs yielding IG's will be scanned manually for concordance. If this scan disagrees with the automated IG or if promyelocytes are noted, a manual differential will be performed. Immature Gran Absolute 0.07(H) 0.00 - 0.04 x10(3)/mc L [facility] Blood 03/18/2023 3:49 PM EDT 03/18/2023 4:03 PM EDT Narrative Resulting Agency Comment Spec In Lab Ivan GAINES HEMATOLOGY ORDERABLE S Performing Organization Address City/[facility]/[place] [address] * (ABNORMAL) Hemogram (03/18/2023 3:49 PM EDT) White Blood Cell 10.2(H) 4.0 - 9.5 x10(3)/mc L [facility] Red Blood Cell 4.99 4.00 - 5.21 x10(6)/ L [facility] Hemoglobin 14.4 11.7 - 15.5 g/dL [facility] Hematocrit 40.5 35.7 - 45.8 % [facility] Mean Cell Volume 81.2(L) 82.6 - 94.4 fL [facility] Mean Cell Hemoglobin 28.9 27.1 - 32.0 pg [facility] Mean Cell Hemoglobin Concentration 35.6(H) 31.7 - 35.0 g/dL [facility] Platelet 350 145 - 357 x10(3)/ L [facility] RDW Standard Deviation 42.1 37.0 - 46.0 fL [facility] RDW coefficient of variation 14.4(H) 11.5 - 14.1 % [facility] Mean Platelet Volume 9.1 7.6 - 12.9 fL [facility] NRBC% auto 0.0 % [facility] NRBC Absolute 0.000 0.000 - 0.000 x10(3)/[facility] Blood 03/18/2023 3:49 PM EDT 03/18/2023 4:03 PM EDT Narrative Resulting Agency Comment Spec In Lab Ivan GAINES HEMATOLOGY ORDERABLE S Performing Organization Address City/[facility]/ZIP Co de Phone Number [facility] [place] [address] * Prealbumin (03/18/2023 3:49 PM EDT) Prealbumin 21 20 - 40 mg/dL [facility] Comment: Prealbumin levels are generally lower in the pediatric population; adult concentrations are usually attained near puberty. Blood 03/18/2023 3:49 PM EDT 03/18/2023 4:03 PM EDT Narrative Resulting Agency Comment Spec In Lab Pito Mclaughlin MD CHEMISTRY ORDERABL ES Performing Organization Address City/[facility]/ZIP Co de Phone Number [facility] [place] [address] * (ABNORMAL) Lipase (03/18/2023 3:49 PM EDT) Lipase 156(H) 0 - 60 unit/L [facility] Blood 03/18/2023 3:49 PM EDT 03/18/2023 4:03 PM EDT Narrative Resulting Agency Comment Spec In Lab Pito Mclaughlin MD CHEMISTRY ORDERABL ES Performing Organization Address [facility] de Phone Number [facility] [place] [address] * (ABNORMAL) Hepatic Function Panel (03/18/2023 3:49 PM EDT) Protein, Total 7.6 6.1 - 8.0 g/dL [facility] Albumin 4.4 3.2 - 5.2 g/dL [facility] Aspartate Aminotransferase 74(H) 0 - 30 unit/L [facility] Alanine Aminotransferase 87(H) 0 - 30 unit/L [facility] Alkaline Phosphatase 152(H) 35 - 105 unit/L [facility] Bilirubin, Total 1.4(H) 0.2 - 1.3 mg/dL [facility] Bilirubin, Direct 0.6(H) 0.0 - 0.3 mg/dL [facility] Blood 03/18/2023 3:49 PM EDT 03/18/2023 4:03 PM EDT Narrative Resulting Agency Comment Spec In Lab Pito Mclaughlin MD CHEMISTRY ORDERABL ES Performing Organization Address [facility] de Phone Number [facility] [place] [address] * (ABNORMAL) Basic Metabolic Panel (non-fasting) (03/18/2023 3:49 PM EDT) Glucose 113 65 - 199 mg/dL [facility] Comment:Diabetes: >=200 mg/d L plus symptoms Blood Urea Nitrogen 14 8 - 18 mg/dL [facility] Creatinine 0.47(L) 0.70 - 1.20 mg/dL [facility] Sodium 138 135 - 145 mmol/L [facility] Potassium 3.0(Criti royal) 3.5 - 5.0 mmol/L [facility] Comment: Result called by ANGELA and read back by Anjum Burroughs at 03/18/2023 [id number] Please note: ??Patients with WBC >100,000 may have falsely elevated Potassium levels. ??For accurate Potassium quantification in these patients send serum separator tube (gold top) for subsequent determinations. ??Contact the Clinical Chemistry Laboratory if there are any questions. Chloride 92(L) 98 - 107 mmol/L [facility] Carbon Dioxide 28 22 - 31 mmol/L [facility] Anion Gap 18(H) 5 - 15 mmol/L [facility] Calcium 9.7 8.5 - 10.5 mg/dL [facility] Est Glomerular Filtration Rate 120 >=60 mL/min/1. 73 m?? [facility] Comment: This patient's estimated GFR [...] Lab Pito Mclaughlin MD CHEMISTRY ORDERABL ES [facility] [place] [address] * (ABNORMAL) Urine culture (03/18/2023 1:52 PM EDT) Urine Culture Greater than 100,000 cfu/ml Escherichia coli(A) [facility] Organism Escherichia coli(A) [facility] Clean Catch Urine 03/18/2023 1:52 [...] - GENER AL ORDERABLES Performing Organization Address [facility]/ZIP Co de Phone Number [facility] [place] [address] * (ABNORMAL) Urinalysis Microscopic Exam (03/18/2023 1:52 PM EDT) RBC, Urine 15(H) 0 - 4 /HPF [facility] WBC, Urine 13(H) 0 - 5 /HPF [facility] Bacteria, Urine Many(A) None /HPF [facility] Squamous Epithelial Cells Raw Data, Urine >36(H) <=4 /HPF [facility] Clean Catch Urine 03/18/2023 1:52 PM EDT 03/19/2023 8:39 AM EDT Narrative Resulting Agency Comment Spec In Lab Ivan GAINES URINE ORDERABLES Performing Organization Address City/[facility]/ZIP Co de Phone Number [facility] [place] [address] * (ABNORMAL) Urinalysis with reflex Culture (03/18/2023 1:52 PM EDT) Glucose, Urine Dipstick Negative Negative mg/dL [facility] Protein, Urine Dipstick 100(A) Negative mg/dL [facility] Bilirubin, Urine Dipstick Large(A) Negative mg/dL [facility] Comment: Clinical correlation required for positive Urine Bilirubin results as false positive may occur with some drugs and drug related products. If a false positive is suspected a serum total bilirubin should be considered if clinically indicated. Urobilinogen, Urine Dipstick Normal Normal mg/dL [facility] pH, Urn (dipstick) 7.0 5.0 - 8.0 [facility] Blood, Urine Dipstick Negative Negative mg/dL [facility] Ketone, Urine Dipstick >=80(Critica l) Negative mg/dL [facility] Comment: Urinalysis result NOT critical without a combination of Glucose greater than or equal to 500 mg/dL AND Ketones greater than or equal to 80 mg/dL Nitrite, Urine Dipstick Positive(A) Negative [facility] Leukocytes, Urine Dipstick Small(A) Negative mcL [facility] Appearance, Urine Dipstick Turbid(A) Clear [facility] Specific [place] Urine Automated 1.027 1.005 - 1.030 [facility] Color, Urine Dipstick [place](A) Yellow [facility] Reflex to Culture Yes [facility] Clean Catch Urine 03/18/2023 1:52 PM EDT 03/18/2023 1:52 PM EDT Narrative Resulting Agency Comment Spec In Lab Pito Mclaughlin MD URINE ORDERABLES Performing Organization Address City/State/[facility] [[email or web address]] Co de Phone Number [facility] [place] [address] * Film Library- Storage Only CT Abdomen & Pelvis (03/13/2023 12:00 AM EDT) Narrative Dicom, Auditing User - 03/18/2023 8:00 PM EDT This exam is auto-finalizing. It's purpose is for storage only. Iram Borrero MD G FILM LIBRARY ORD ERABLES * Film Library- Storage Only Ultrasound Study (02/25/2023 12:00 AM EDT) Narrative Dicom, Auditing User - 03/18/2023 7:58 PM EDT This exam is auto-finalizing. It's purpose is for storage only. Iram Borrero MD IM FILM LIBRARY ORD ERABLES documented in this [...] are indicated. Please time first dose for 2200, Routine, Is ketorolac (Toradol) IV contraindicated? Yes, [...] 100 mcg, Intramuscular, ONCE, 1 dose, On Sat03/21/23 at 2030, Routine Given 03/21/2023 9:19 PM [...] ONCE, 1 dose, On Sat03/18/23 at 1615 New Bag 03/18/2023 4:59 PM EDT lactated Ringers 500 mL IV bolus at 166.7 mL/hr, Intravenous, ONCE, 1 dose, On Sat03/28/23 at 0815 New Bag 03/28/2023 9:42 AM EDT 166.7 mL/hr lactated ringers infusion 1,000 mL, at 100 mL/hr, Intravenous, CONTINUOUS, Starting on Sat03/19/23 at 0200, Until Sat03/25/23 at 1507 New Bag 03/25/2023 6:50 AM EDT 1,000 mLs 100 mL/hr New Bag 03/24/2023 8:53 PM EDT 1,000 mLs 100 mL/hr New Bag 03/24/2023 11:22 AM EDT 1,000 mLs 100 mL/hr lactated ringers infusion 50 mL/hr, Intravenous, CONTINUOUS, Starting on Sat03/25/23 at 1600, Until Sat03/27/23 at 1754 New Bag 03/27/2023 11:29 AM EDT 50 mL/hr 50 mL/hr New Bag 03/26/2023 5:27 PM EDT 50 mL/hr 50 mL/hr New Bag 03/25/2023 9:18 PM EDT 50 mL/hr 50 [...] 10 mEq 100 mL/hr New Bag 03/19/2023 9:00 AM EDT 10 mEq 100 [...] MIKE) 06 (Given - Provider: Jessica Nguyễn, MIKE)1541 (Given - Provider: Danni Duran LPN - [...] L Jimenes LPN)2114 (Given - Provider: Jessica Nguyễn, [...] Routine documented in this encounter Care Teams Track Moving Machine Operator Relationship Specialty Start Date End Date Sree High, BRYANNA [address] [place] [address] PCP - General Family Medicine 12/19/22 documented as of this encounter
--- OUTSIDE RECORDS SUMMARY | 2024-09-02 16:13 | XMS_ITS | Encounter Summary ---
Author Organization [facility] Address [facility] [place] [address] Care Team Providers Care Milk Bottler Name Role Phone Sree High APRN Primary Care Provider [phone] Encounter Details Date Type Department Care Team (Late st Contact Info) Description 03/28/2023 Ophth [place] [address] Lizbeth Pan MD [facility] [place] [address] Social History Tobacco Use Types Packs/Day Years [...] psychologist to work on eating behaviors Health Transportation Program Director is sending hand-outs with exercises for mindful eating, The Pause/STOP and Urge surfing. Patient will review and try implementing some behaviors before we meet again. movement Lifestyle On track(2021 10:29 AM EST) Jill Colmenares, [employer] MANAGER ARCHITECT Note: Exercise goal is 150 min [...] on filedocumented in this encounter Care Teams Milk Bottler Relationship Specialty Start Date End Date Sree High APRN [address] [place] [address] [address] [place] [address] PCP - General Family Medicine 12/19/22 documented as of this encounter
--- OUTSIDE RECORDS SUMMARY | 2024-09-02 16:14 | XMS_ITS | Encounter Summary ---
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 Felicia Lee MD [facility] DR GASTROENTEROLOGY [place] [address] [facility] [address] [place] [address] Referral ID Status Reason Start Date Expiration Date V isits Requested Visits Authorized [id number] Closed Consult, Test & Treat 03/21/2023 03/20/2024 1 1 Encounter Details Date Type Department Care Team (Late st Contact Info) Description 03/21/2023 Orders [place] [address] Felicia Lee MD [facility] GASTROENTEROLOGY [place] [address] PSC (primary sclerosing cholangitis) Social [...] psychologist to work on eating behaviors Health Data Processing Control Clerk is sending hand-outs with exercises for [...] Cholangitis documented in this encounter Care Teams Assistant Golf Course Superintendent Relationship Specialty Start Date End Date Sree High APRN [address] [place] [address] [facility] [address] [place] [address] PCP - General Family Medicine 12/19/22 documented as of this encounter
--- OUTSIDE RECORDS SUMMARY | 2024-09-02 16:14 | XMS_ITS | Encounter Summary ---
Author Organization [facility] [place] [address] Care Team Providers Care Field Coil Winder Name Role Phone Sree High APRN Primary Care Provider [phone] Reason for Visit * Reason Comments Emesis Dehydration * Auth/Cert (Routine) Specialty Diagnoses / Procedures Referred By Contac t Referred To Contact Diagnoses Abdominal pain Procedures ER IPI Iram Borrero MD [facility] [place] [address] [facility] Referral ID Status Reason Start Date Expiration Date Visits Re quested Visits Authorized [id number] 1 1 Encounter Details Date Type Department Care Team ([facility] Contact Info) Description 03/22/2023 7:45 PM EDT - 03/22/2023 11:30 PM EDT Surgery [place] [address] Iram Borrero MD [facility] [place] [address] LAPAROSCOPY, DIAGNOSTIC, ABDOMEN (WRVU 5.14) Social History Tobacco Use Types Packs/Day Years Used Date Smoking Tobacco: Never Smokeless Tobacco: Never Alcohol Use Standard Drinks/Week Comments Not Currently 0 (1 standard drink = 0.6 oz pur e alcohol) [facility] Inpatient Questions Answer Date Recorded Does [...] with possibility of toxicity causing symptoms. Clinical flight surveyor was consulted who recommended completely stopping Lamictal. [...] who have questions please contact the health patient care secretary that requested your imagingfirst. Electronically signed by: Erlin Castorena DO [facility] ([phone]), at 03/21/2023 12:49 PM MRI Brain wwo Contrast (Generic) Result Date: 03/24/2023 EXAMINATION: MRI BRAIN WWO CONTRAST (GENERIC), MRI ORBIT WWO CONTRAST CLINICAL HISTORY: Dizziness, non-specific dizziness, diplopia, rule out stroke? (accession [id number]), right eye weakness, diplopia, concern for possible inferior rectus infiltration or inflamation vs. possible optic neuritis (acce ssion [id number]). Right-sided weakness, diplopia, concerning for possible inferior [...] who have questions please contact the health patient care secretary that requested your imaging first. Cholangiopancreatography WO [...] visceral organs, gastrointestinal tract, and vascular structures. Expediter Images: Noncontributory. Inferior thorax: Visualized structures within [...] who have questions please contact the health patient care secretary that requested your imaging first. Electronically signed by: Maximo Forrest DO, [facility] ([phone]), at 03/20/2023 7:59 AM Film Library- Storage [...] non-specific dizziness, diplopia, rule out stroke? (accession [id number]), right eye weakness, diplopia, concern for possible inferior rectus infiltration or inflamation vs. possible optic neuritis (acce ssion [id number]). Right-sided weakness, diplopia, concerning for possible inferior [...] who have questions please contact the health patient care secretary that requested your imaging first. DOC: TELEMETRY [...] who have questions please contact the health patient care secretary that requested your imaging first. OR Endoscopy [...] Loli Valerio, PhD Weight and Wellness at [facility] Arrive at: Home [phone] To view instructions for your video visit, click here, or visit this website: [email or web address] If you have not previously downloaded the DAngioScore patient portal software, Equigerminal, or the Netechy marco a, please do so by clicking one of these links below or searching in your device's marc oa store. For all desktops/laptops; for Android devices; [...] RD; Anni Varela APRN General Surgery at [facility] Arrive at: Metal Sander Area 4L [phone] Future Orders Complete By Expires Referral to [...] home with her at all times. Called [facility] in [place], [place], where she lives. There is vestibular [...] Instructions ??? You have a referral to [facility] Ear, Nose and Throat clinic for further evaluation of dizziness. They will call you to scheduled an appointment. ??? A referral has been faxed to [facility] in [place]. [place] for vestibular physical therapy. If you do not hear from them in one week, please call the hospital to follow up on that referral. o Their phone number is . Call Doctor for: ??? Persistent nausea or vomiting ??? Any fevers greater than 101.3 F For questions or concerns during business hours please call the Surgery Clinic at [phone] before 5 PM on weekdays. For questions after hours and on weekends please call the hospital dough machine operator at [phone] and ask for the General Surgery resident fabrication machine operator. They may not be familiar with your [...] try a Dulcolax suppository. Follow-up: Please call [phone] (clinic number for appointments) to confirm or change the date and time of your appointment. Future Appointments Date Time Provider Department Center 04/02/2023 9:00 AM Loli Valerio, PhD [facility] WEIGHT [facility] 04/26/2023 2:00 PM Anni Varela APRN [facility] SURG [facility] General Instructions None Future Appointments and Orders Future Appointments and Orders Future Appointments Provider Department Dept Phone 04/02/2023 9:00 AM Loli Valerio, PhD Weight and Wellness at [facility] Arrive at: Home [phone] To view instructions for your video visit, click here, or visit this website: [email or web address] If you have not previously downloaded the Relevant e-solution patient portal software, Equigerminal, or the Netechy marco a, please do so by clicking [...] CHANG; Anni Varela APRN General Surgery at [facility] Arrive at: [place] 4L [phone] Future Orders Complete By Expires Referral to [...] home with her at all times. Called [facility] in [place], [place], where she lives. There is vestibular [...] Surgery Fellow, PGY-6 03/29/23 12:24 PM MISpager [phone] Primary [place] Physician: Sree High, BRYANNA [address] [address] documented in this encounter Discharge Instructions * Patient Instructions* Joan Solorzano PA - 03/29/2023 8:17 AM EDT Discharge Instructions You have a referral to [facility] Ear, Nose and Throat clinic for further evaluation of dizziness. They will call you to scheduled an appointment. A referral has been faxed to [facility] in [facility] for vestibular physical therapy.If you do not hear from them in one week, please call the hospital to follow up on that referral. Their phone number is . Call Doctor for: Persistent nausea or vomiting Any fevers greater than 101.3 F For questions or concerns during business hours please call the Surgery Clinic at [phone] before 5 PM on weekdays. For questions after hours and on weekends please call the hospital dough machine operator at [phone] and ask for the General Surgery resident fabrication machine operator. They may not be familiar with your [...] try a Dulcolax suppository. Follow-up: Please call [phone] (clinic number for appointments) to confirm or change the date and time of your appointment. Future Appointments Date Time Provider Department Center 04/02/2023 9:00 AM Loli Valerio, PhD [facility] WEIGHT [facility] 04/26/2023 2:00 PM Anni Varela APRN [facility] SURG [facility] documented in this encounter Medications at Time [...] discharged to home. IV removed, site benign. property portfolio officer remains unchanged from previous assessment. Pt management discussed, pain tolerable. Pt has all belongings and supplies needed. Pt received After Visit Summary and prescriptions, reviewed and patient verbalizes understanding of AVS. All q uestions answered. Pt encouraged to call with questions or concerns. Pt dc'ed to home with family. Pt expressed thanks for care received by this assembly instructions writer and [facility] staff during hospitalization. * Cl Goodman RN [...] home with her at all times. Called [facility] in [place], [place], where she lives. There is vestibular [...] TEF ANIYA MARIA L CRAWFORD PT Pager: [phone] Physical Therapy Inpatient Rehabilitation Department * Dick [...] of cessation. She was seen by clinical flight surveyor with recommendation to stop Lamicatal altogether. At [...] Bariatric Surgery 12:06 PM 03/28/23 Service pager: [phone] Associated attestation - Iram Borrero MD - [...] PRN medications, see JAN. Incision to abdomen ELLEN. Patient voiding to BSC w/ SBA. LBM CATHODE WASHER. Patient sleeping in between care. PLAN MOVING [...] 29.4) performed by Iram Borrero MD at [facility] OR ??? PRO UPPER GI ENDOSCOPY, DIAGNOSTIC N/A 01/10/2023 ?? EGD, UPPER GI ENDOSCOPY performed by Iram Borrero MD at [facility] OR ??? PRO UPPER GI ENDOSCOPY, DIAGNOSTIC N/A 03/05/2023 ?? EGD, UPPER GI ENDOSCOPY (WRVU 2.09) performed by Iram Borrero MD at [facility] OR ?? Active Non-Hospital Problems ?? [...] Occupational Therapy: 33 (SCHM X1 TAF X1 (5252-5954)) Pager: [phone] Pito Baltazar, KO 03/27/2023 Occupational Therapy Rehabilitation Department * Herman Viramontes, CATHODE WASHER - 03/27/2023 10:20 AM EDT Physical Therapy [...] TE-F x 2 HERMAN VIRAMONTES PTA Pager: [phone] Physical Therapy Inpatient Rehabilitation Department * Joan [...] into home apartment ?? Seen by clinical flight surveyor yesterday w/ recommendation to stop Lamictal altogether [...] of cessation. She was seen by clinical flight surveyor yesterday with recommendation to stop Lamicatal altogether. [...] Bariatric Surgery 9:10 AM 03/27/23 Service pager: [phone] Associated attestation - Iram Borrero MD - [...] Patient voiding to BSC w/ SBA. LBM aircraft captain. Patient sleeping in between care. PLAN [...] BILIDIR 0.4 (H) 03/20/2023 CRP 4.5 03/26/2023 PGNY1BC 139 12/18/2022 [id number] 612 03/21/2023 25OHVITD 34 03/26/2023 SFOLATE 4.0 [...] of this encounter: 78.5 kg (173 lb). Declo Body Weight (IBW) (kg): 54.55 Usual Body [...] 29.4) performed by Iram Borrero MD at [facility] OR ??? PRO UPPER GI ENDOSCOPY, DIAGNOSTIC N/A 01/10/2023 ?? EGD, UPPER GI ENDOSCOPY performed by Iram Borrero MD at [facility] OR ??? PRO UPPER GI ENDOSCOPY, DIAGNOSTIC N/A 03/05/2023 ?? EGD, UPPER GI ENDOSCOPY (WRVU 2.09) performed by Iram Borrero MD at [facility] OR ?? Active Non-Hospital Problems ?? [...] Occupational Therapy: 45 (SCHM X1 TAF X2 (2534-3037)) Pager: [phone] Pito Baltazar, OT 03/26/2023 Occupational Therapy Rehabilitation [...] Flexor digitorum profundus Digit II-V flexion / gun synchronizer 5 5 L2-3 Iliopsoas Hip flexion 5 [...] who have questions please contact the health patient care secretary that requested your imaging first. Cholangiopancreatography WO [...] who have questions please contact the health patient care secretary that requested your imaging first. Electronically signed by: Maximo Forrest DO, [facility] ([phone]), at 03/20/2023 7:[address] Head wo Contrast (Generic) (Exam End: 03/21/2023 12:34 PM) Impression Normal brain CT. Thank you for letting us participate in the care of this patient. If you are a health care provider and have any questions regarding this report, please contact the number below. For patients who have questions please contact the health patient care secretary that requested your imaging first. Electronically signed by: Erlin Castorena DO, [facility] ([phone]), at 03/21/2023 12:49 PM MRI Orbit wwo Contrast (Exam End: 03/24/2023 11:16 AM) Impression 1. Normal brain. 2. Normal orbits. Thank you for letting us participate in the care of this patient. If you are a health care provider and have any questions regarding this report, please contact the number below. For patients who have questions please contact the health patient care secretary that requested your imaging first. Brain wwo Contrast (Generic) (Exam End: 03/24/2023 11:16 AM) Impression 1. Normal brain. 2. Normal orbits. Thank you for letting us participate in the care of this patient. If you are a health care provider and have any questions regarding this report, please contact the number below. For patients who have questions please contact the health patient care secretary that requested your imaging first. Orthostatics blood [...] management). ?? Continue high-dose thiamine. Neurology Consult #[id number] Caron Conde MD Neurology PGY3 03/26/2023 Associated attestation - Darinel Flores MD - 04/05/2023 8:38 AM EDT Neurology Attending Note Darinel Flores MD PhD (pager [phone]) I have seen and examined Leandra Wilks [...] Bariatric Surgery 11:56 AM 03/26/23 Service pager: [phone] Continue holding lamictal per discussion with Dr. [...] timing of restarting lamictal. Recommended discussionwith clinical flight surveyor to determine if continued holding of medication would be of benefit. Would not recommend any more invasive evaluation at this time. If symptoms persist, could consider ENT evaluation but does not require continued inpatient treatment/observation. Discussed non-urgent case with clinical flight surveyor who will evaluate patient. Lamictal level ordered. Continue supportive care. Dispo: acute rehab recommended by PT at this time, pending placement Natalee Winn MD 03/26/23 1:35 PM MISpager [phone] * Candelaria Fish RN - 03/26/2023 4:42 [...] 18.46) performed by Iram Borrero MD at [facility] OR ??? PRO LAP GASTRIC BYPASS/RENATO-EN-Y N/A 01/10/2023 @LAPAROSCOPIC GASTROPLASTY W/ RENATO-EN-Y CONSTRUCTION (WRVU 29.4) performed by Iram Borrero MDat [facility] OR ??? PRO LAP, DIAGNOSTIC ABDOMEN N/A 03/22/2023 LAPAROSCOPY, DIAGNOSTIC, ABDOMEN (WRVU 5.14) performed by Iram Borrero MD at [facility] OR ??? PRO UPPER GI ENDOSCOPY, DIAGNOSTIC N/A 01/10/2023 EGD, UPPER GI ENDOSCOPY performed by Iram Borrero MD at [facility] OR ??? PRO UPPER GI ENDOSCOPY, DIAGNOSTIC N/A 03/05/2023 EGD, UPPER GI ENDOSCOPY (WRVU 2.09) performed by Iram Borrero MD at [facility] OR ??? PRO UPPER GI ENDOSCOPY, DIAGNOSTIC N/A 03/20/2023 EGD, UPPER GI ENDOSCOPY (WRVU 2.09) performed by Gerber Salomon MD at [facility] ENDOSCOPY Active Non-Hospital Problems Diagnosis ? [...] exercises in horizontal and vertical and provided [facility] HEP Education: patient has been educated [...] EVAL LOW COMPLEXITY) Felicia Oneal, PT Pager: [phone] Physical Therapy Inpatient Rehabilitation Department * Eva [...] L Elbow flexion 5/5 R, 5/5 L Compression Molding Machine Operator LE: 5/5 R, 5/5 L Hip flexion [...] who have questions please contact the health patient care secretary that requested your imaging first. Cholangiopancreatography WO [...] who have questions please contact the health patient care secretary that requested your imaging first. Electronically signed by: Maximo Forrest [facility] ([phone]), at 03/20/2023 7:[address] Head wo Contrast (Generic) (Exam End: 03/21/2023 12:34 PM) Impression Normal brain CT. Thank you for letting us participate in the care of this patient. If you are a health care provider and have any questions regarding this report, please contact the number below. For patients who have questions please contact the health patient care secretary that requested your imaging first. Electronically signed by: Erlin Castorena [facility] ([phone]), at 03/21/2023 12:49 PM MRI Orbit wwo Contrast (Exam End: 03/24/2023 11:16 AM) Impression 1. Normal brain. 2. Normal orbits. Thank you for letting us participate in the care of this patient. If you are a health care provider and have any questions regarding this report, please contact the number below. For patients who have questions please contact the health patient care secretary that requested your imaging first. Brain wwo Contrast (Generic) (Exam End: 03/24/2023 11:16 AM) Impression 1. Normal brain. 2. Normal orbits. Thank you for letting us participate in the care of this patient. If you are a health care provider and have any questions regarding this report, please contact the number below. For patients who have questions please contact the health patient care secretary that requested your imaging first. Assessment and [...] continue meclizine 25mg TID PRN Eva Kapoor [facility] Medical Student 03/25/23 Associated attestation [...] Flexor digitorum profundus Digit II-V flexion / gun synchronizer 5 5 L2-3 Iliopsoas Hip flexion 5 [...] who have questions please contact the health patient care secretary that requested your imaging first. Cholangiopancreatography WO [...] who have questions please contact the health patient care secretary that requested your imaging first. Electronically signed by: Maximo Forrest [facility] ([phone]), at 03/20/2023 7:[address] Head wo Contrast (Generic) (Exam End: 03/21/2023 12:34 PM) Impression Normal brain CT. Thank you for letting us participate in the care of this patient. If you are a health care provider and have any questions regarding this report, please contact the number below. For patients who have questions please contact the health patient care secretary that requested your imaging first. Electronically signed by: Erlin Castorena [facility] ([phone]), at 03/21/2023 12:49 PM MRI Orbit wwo Contrast (Exam End: 03/24/2023 11:16 AM) Impression 1. Normal brain. 2. Normal orbits. Thank you for letting us participate in the care of this patient. If you are a health care provider and have any questions regarding this report, please contact the number below. For patients who have questions please contact the health patient care secretary that requested your imaging first. Brain wwo Contrast (Generic) (Exam End: 03/24/2023 11:16 AM) Impression 1. Normal brain. 2. Normal orbits. Thank you for letting us participate in the care of this patient. If you are a health care provider and have any questions regarding this report, please contact the number below. For patients who have questions please contact the health patient care secretary that requested your imaging first. Orthostatics blood [...] resolve. ?? Continue high-dose thiamine. Neurology Consult #[id number] Caron Conde MD Neurology Resident PGY3 03/25/2023 Associated attestation - Darinel Flores MD - 03/27/2023 10:00 AM EDT Neurology Attending Note Darinel Flores MD PhD (pager [phone]) I have seen and examined Leandra Wilks [...] advanced to dysphagia soft. Abdominal lap sites PUBLIC POLICY ANALYST. Patient voiding to BSC w/ SBA FWW. [...] and PRNmedications, see JAN. Abdominal lap sites PUBLIC POLICY ANALYST. Patient voiding to BSC w/ SBA FWW. [...] 3 ?? Patient profile: Per MD: Leandra iWlks??is a 43 y.o.??female??with medical history significant for [...] 29.4) performed by Iram Borrero MD at [facility] OR ??? PRO UPPER GI ENDOSCOPY, DIAGNOSTIC N/A 01/10/2023 ?? EGD, UPPER GI ENDOSCOPY performed by Iram Borrero MD at [facility] OR ??? PRO UPPER GI ENDOSCOPY, DIAGNOSTIC N/A 03/05/2023 ?? EGD, UPPER GI ENDOSCOPY (WRVU 2.09) performed by Iram Borrero MD at [facility] OR ?? Active Non-Hospital Problems ?? [...] 1-3 times/wk Total Minutes, Occupational Therapy: 23 ([facility] X2 (9669-9174)) Pager: [phone] Pito Baltazar, KO 03/22/2023 Occupational Therapy Rehabilitation Department * Ana Condon RN - 03/22/2023 4:30 AM EDT Pt A&Ox4. VSS. Patient tolerated two orange kiswahili ice and crackers prior to being NPO [...] 29.4) performed by Iram Borrero MD at [facility] OR ??? PRO UPPER GI ENDOSCOPY, DIAGNOSTIC N/A 01/10/2023 ?? EGD, UPPER GI ENDOSCOPY performed by Iram Borrero MD at [facility] OR ??? PRO UPPER GI ENDOSCOPY, DIAGNOSTIC N/A 03/05/2023 ?? EGD, UPPER GI ENDOSCOPY (WRVU 2.09) performed by Iram Borrero MD at [facility] OR ?? Active Non-Hospital Problems ?? [...] 1-3 times/wk Total Minutes, Occupational Therapy: 42 ([facility] X3 (2042-7517)) Pager: [phone] Pito Baltazar, OT 03/21/2023 Occupational Therapy Rehabilitation [...] who have questions please contact the health patient care secretary that requested your imaging first. Electronically signed by: Maximo Forrest DO, [facility] ([phone]), at 03/20/2023 7:59 AM Lab Results Component [...] Adair Winn MD 03/20/23 9:01 AM MISpager [phone] Associated attestation - Iram Borrero MD - [...] Bower MD - 03/18/2023 4:04 PM EDT [facility] Department of Minimally Invasive Surgery Admission History [...] tachycardic and was advised to present to [facility] for further evaluation by the surgery team. [...] Borrero MD at [facility] OR ??? PRO UPPER GI ENDOSCOPY, DIAGNOSTIC N/A 03/05/2023 EGD, UPPER GI ENDOSCOPY (WRVU 2.09) performed by Iram Borrero MD at [facility] OR HOME MEDICATIONS: No current [...] found for this visit on 03/18/23. IMPRESSION: Leandar Wilks is a 43 y.o. female with [...] unwell and was recommended to come to [facility]. Here she reports that she isn't eating [...] supposed to have EGD this morning at [facility] but was unable to tolerate the procedure; [...] Internal Medicine PGY-1 03/18/23 4:56 PM Pager #[phone] Swathi Day MD Resident 03/18/23 5412 Associated attestation - Pito Mclaughlin MD - [...] Iris Cash RN, BSN Case Management Work [phone] * Consult Note - Lizbeth Pan MD [...] but rarely worn since obtained from local assisted sales representative. NO known head trauma. H/o ear infections [...] 18.46) performed by Iram Borrero MD at [facility] OR ??? PRO LAP GASTRIC BYPASS/RENTAO-EN-Y N/A 01/10/2023 @LAPAROSCOPIC GASTROPLASTY W/ RENATO-EN-Y CONSTRUCTION (WRVU 29.4) performed by [facility]at [facility] OR ??? PRO LAP, DIAGNOSTIC ABDOMEN N/A 03/22/2023 LAPAROSCOPY, DIAGNOSTIC, ABDOMEN (WRVU 5.14) performed by Iram Borrero MD at [facility] OR ??? PRO UPPER GI ENDOSCOPY, DIAGNOSTIC N/A 01/10/2023 EGD, UPPER GI ENDOSCOPY performed by Iram Borrero MD at [facility] OR ??? PRO UPPER GI ENDOSCOPY, DIAGNOSTIC N/A 03/05/2023 EGD, UPPER GI ENDOSCOPY (WRVU 2.09) performed by Iram Borrero MD at [facility] OR ??? PRO UPPER GI ENDOSCOPY, DIAGNOSTIC N/A 03/20/2023 EGD, UPPER GI ENDOSCOPY (WRVU 2.09) performed by Gerber Salomon MD at [facility] Medications: Current Facility-Administered Medications Ordered [...] 40 mg 40 mg Subcutaneous Daily Natalee iWnn MD 40 mg at 03/28/23 0941 ??? [...] Q30 Min Natalee Gottlieb MD No current [facility]-ordered outpatient medications on file. Prior To [...] ERIN 5 months ago, Dr. Ramirez in [place], [place] Near with +2.00 LL Tonometry ([facility], 2:36 PM) Right Left Pressure 13 12 Pupils Dark Light Shape APD Right 4 2 Round None Left 4 2 Round None Visual Stovall Left Right Full Full Extraocular Movement Right Left Full, Ortho, Nystagmus Full, Ortho, Nystagmus Neuro/Psych Mood/Affect: Apathetic Strabismus Exam Method: Alternate Cover, Cover-Uncover Correction: or Observations: Ortho Distance Near Near +3DS N [...] Nystagmus/Oscillopsia: DDx includes medications, inner ear conditions, WEAPONS OFFICER disease in absence of any reported h/o [...] discuss discharge planning needs. ?? provide the [facility], Office of Care Management letter from the Electronics Engineer pertaining to rehabreferrals. ?? provide a letter describing our affiliations within the [facility] and educate about their right to choose where referrals are sent. ?? provide the [facility] Star Quality Rating handout. ?? review the different levels of rehab including SNF, swing, and acute. ?? provide a list of facilities within their preferred geographic area. ?? request that they provide at least three choices for referral. They have requested referrals to: [facility] ([facility]) ([facility]) [address] [place] [address] (Accepts pts only after exhausting all other local SNF options Only pts from their area with PCP at the Hospital Maximum rehab stay of 5 days) [facility] [address] [place] [address] [facility] [address] [place] [address] Note routed to a Utility System Repairer who will communicate referrals to facilities and provide any required information. Addendum: Call placed to [facility], no beds, [facility] no beds, Caryl hector. * Consult Note - Jessica Haywood [facility] - 03/27/2023 10:40 AM EDT KATE (Behavioral Intervention Team) KATE [facility] stopped to see this patient today. [...] this admission for support. Jessica Haywood MA, [facility] - BIT (Behavioral Intervention Team) Dept. of Psychiatry - Inpatient Psych. Services Pager: [phone] * Consult Note - Maximo Moreno MD [...] improved her double vision. According to the residential supervisor's information, lamotrigine (uma at higher doses) can [...] was reduced. I am available on pager [phone] if I can help further. This is definitely a challenging case, but I think it is likely that the lamotrigine is contributing or causing to the nystagmus and double vision,and possibly contributing to the nausea and vomiting that patient has had as well. Maximo Moreno MD Pager [phone] * Care Management - Corey Wick RN [...] discuss discharge planning needs. ?? provide the [facility], Office of Care Management letter from the Electronics Engineer pertaining to rehabreferrals. ?? provide a letter describing our affiliations within the [facility] and educate about their right to choose where referrals are sent. ?? provide the CMS Star Quality Rating handout. ?? review the different levels of rehab including SNF, swing, and acute. ?? provide a list of facilities within their preferred geographic area. ?? request that they provide at least three choices for referral. They have requested referrals to: [facility] Inpatient Rehabilitation Unit - [address] [address] [facility] Acute Rehabilitation and Sub-Acute (Swing) Rehab Levels of Care [address] [place] [address] Note routed to a Utility System Repairer who will communicate referrals to facilities and [...] 2 choices and made pt aware that [place] only had 2, [facility] and [facility]. Pt agreed to placing both. Anticipated Date of Discharge: 03/29/2023 Isak STEPHENS, RN CM Case Management [phone] * Consult Note - Jessica Haywood, [facility] - 03/25/2023 10:40 AM EDT BIT [...] to varying degrees since her original surgery. [facility] encouraged patient to discuss [...] Interventions delivered: Supportive therapy Plan: 1. BIT [facility] to continue to follow for support during admission 2. Recommend patient continue with her established outpatient mental health counseling Time spent with the patient (min):15 minutes Time spent on case coordination (min): 10 minutes Jessica Haywood MA, [facility] - BIT (Behavioral Intervention Team) Dept. of Psychiatry - Inpatient Psych. Services Pager: [phone] * Consult Note - Fernando Giles MD [...] [facility] She states that she continues to have [...] and normal rhythm ?? Language: fluent in pakistani, without paraphasic errors and without word finding [...] who have questions please contact the health patient care secretary that requested your imaging first. Cholangiopancreatography WO [...] visceral organs, gastrointestinal tract, and vascular structures. Expediter Images: Noncontributory. Inferior thorax: Visualized structures within [...] who have questions please contact the health patient care secretary that requested your imaging first. Electronically signed by: Maximo Forrest [facility] ([phone]), at 03/20/2023 7:[address] Head wo [...] who have questions please contact the health patient care secretary that requested your imaging first. Electronically signed by: Erlin Castorena [facility] ([phone]), at 03/21/2023 12:49 PM MRI Orbit wwo Contrast (Exam End: 03/24/2023 11:16 AM) Narrative EXAMINATION: MRI BRAIN WWO CONTRAST (GENERIC), MRI ORBIT WWO CONTRAST CLINICAL HISTORY: Dizziness, non-specific dizziness, diplopia, rule out stroke? (accession [id number]), right eye weakness, diplopia, concern for possible inferior rectus infiltration or inflamation vs. possible optic neuritis (accession [id number]). Right-sided weakness, diplopia, concerning for possible inferior [...] who have questions please contact the health patient care secretary that requested your imaging first. Brain wwo Contrast (Generic) (Exam End: 03/24/2023 11:16 AM) Narrative EXAMINATION: MRI BRAIN WWO CONTRAST (GENERIC), MRI ORBIT WWO CONTRAST CLINICAL HISTORY: Dizziness, non-specific dizziness, diplopia, rule out stroke? (accession [id number]), right eye weakness, diplopia, concern for possible inferior rectus infiltration or inflamation vs. possible optic neuritis (accession [id number]). Right-sided weakness, diplopia, concerning for possible inferior [...] who have questions please contact the health patient care secretary that requested your imaging first. Film Library- [...] this assessment. Recommendations were communicated to primary clinical team manager Dick Bower. Fernando Giles MD 03/25/2023 Coding [...] Minimal/Low [] Low [] Minimal/Low [] Low 34506 [] Moderate [] Moderate [] Moderate [] Moderate 42816 [] High [] High [] High [] High 11075 Final Coding Determination: Straightforward/low Associated attestation - Carlito Parrish MD - 04/05/2023 2:33 PM EDT Psychiatry Attending Note I discussed this patient's situation with the resident but did not see the patient. I contributed to the formulation and treatment planning as documented in the resident's note. Carlito Parrish MD Psychiatry Consultation Pager: [phone] * Consult Note - Varsha Topete APRN [...] 168 hours. No results for input(s): PHART, USW3HDO, PO2ART, MWN8MSP in the last 168 hours. No results [...] Folate supplementation - daily multivit General Neurology #[id number] Varsha Topete APRN Personal Pager #[phone] [place] [address] Associated attestation - Darinel Flores MD - 03/24/2023 2:26 PM EDT Neurology Attending Note Darinel Flores MD PhD (pager [phone]) I have seen and examined Leandra Wilks [...] Flexor digitorum profundus Digit II-V flexion / gun synchronizer 5 5 L2-3 Iliopsoas Hip flexion 5 [...] who have questions please contact the health patient care secretary that requested your imaging first. Cholangiopancreatography WO [...] who have questions please contact the health patient care secretary that requested your imaging first. Electronically signed by: Maximo Forrest [facility] ([phone]), at 03/20/2023 7:[address] Head wo Contrast (Generic) (Exam End: 03/21/2023 12:34 PM) Impression Normal brain CT. Thank you for letting us participate in the care of this patient. If you are a health care provider and have any questions regarding this report, please contact the number below. For patients who have questions please contact the health patient care secretary that requested your imaging first. Electronically signed by: Erlin Castorena [facility] ([phone]), at 03/21/2023 12:49 PM Orthostatics blood pressure [...] brainstem - MRI orbits wwo Neurology Consult #[id number] Isai Esqueda MD Neurology Resident, PGY-4 03/23/2023 Associated attestation - Darinel Flores MD - 03/24/2023 2:28 PM EDT Neurology Attending Note Darinel Flores MD PhD (pager [phone]) Please see my earlier attestation. * Op Note - Iram Borrero MD - 03/22/2023 7:54 PM EDT [facility] Operative Note Patient Name: Leandra Wilks : [id number] MR#: [id number] Case Date: 03/22/2023 Surgeon: Surgeon(s) and Role: [...] (VU 29.4) performed by [facility]ram [facility] MDat [facility] ??? PRO UPPER GI ENDOSCOPY, DIAGNOSTIC N/A 01/10/2023 EGD, UPPER GI ENDOSCOPY performed by Iram Borrero MD at [facility] ??? PRO UPPER GI ENDOSCOPY, DIAGNOSTIC N/A 03/05/2023 EGD, UPPER GI ENDOSCOPY (WRVU 2.09) performed by Iram Borrero MD at [facility] ??? PRO UPPER GI ENDOSCOPY, DIAGNOSTIC N/A 03/20/2023 EGD, UPPER GI ENDOSCOPY (WRVU 2.09) performed by Gerber Salomon MD at [facility] Allergies: No Known Allergies Family [...] Flexor digitorum profundus Digit II-V flexion / gun synchronizer 5 5 L2-3 Iliopsoas Hip flexion 5 [...] who have questions please contact the health patient care secretary that requested your imaging first. Cholangiopancreatography WO [...] who have questions please contact the health patient care secretary that requested your imaging first. Electronically signed by: Maximo Forrest [facility] ([phone]), at 03/20/2023 7:[address] Head wo Contrast (Generic) (Exam End: 03/21/2023 12:34 PM) Impression Normal brain CT. Thank you for letting us participate in the care of this patient. If you are a health care provider and have any questions regarding this report, please contact the number below. For patients who have questions please contact the health patient care secretary that requested your imaging first. Electronically signed by: Erlin Castorena DO, [facility] ([phone]), at 03/21/2023 12:49 PM Orthostatics blood pressure measurements: Lying 102/61 (75), Sitting 116/78 (91), Standing 102/77 (85) Assessment: This is Leanrda Wilks, a 43-year-old woman with n/v dysphagia [...] Attending Note Darinel Flores MD PhD (pager [phone]) I have seen and examined Leandra Wilks [...] H Siddharth Bustillo MD Psychiatry Consultation Pager: [phone] Psychiatric Initial Inpatient Consultation Note Time of [...] Prozac and Lamictal Past hospitalizations: None at [facility] Suicide attempts: 1 remote attempt Past psychiatric [...] Borrero MD at [facility] ??? PRO UPPER GI ENDOSCOPY, DIAGNOSTIC N/A 03/05/2023 EGD, UPPER GI ENDOSCOPY (WRVU 2.09) performed by Iram Borrero MD at [facility] ??? PRO UPPER GI ENDOSCOPY, DIAGNOSTIC N/A 03/20/2023 EGD, UPPER GI ENDOSCOPY (WRVU 2.09) performed by Gerber Salomon MD at [facility] Inpatient Medications: Current Facility-Administered Medications [...] 5 mL 5 mL Intravenous BID Dick oBwer MD 5 mL at 03/21/23 0854 ??? [...] 4-8 mg 4-8 mg Oral Q8H PRN Lisadnro Araya MD 4 mg at 03/21/23 1548 [...] and increased latency ?? Language: fluent in pakistani, without paraphasic errors and without word finding [...] who have questions please contact the health patient care secretary that requested your imaging first. Cholangiopancreatography WO [...] visceral organs, gastrointestinal tract, and vascular structures. Expediter Images: Noncontributory. Inferior thorax: Visualized structures within [...] who have questions please contact the health patient care secretary that requested your imaging first. Electronically signed by: Maximo Forrest [facility] ([phone]), at 03/20/2023 7:[address] Head wo [...] who have questions please contact the health patient care secretary that requested your imaging first. Electronically signed by: Erlin Castorena [facility] ([phone]), at 03/21/2023 12:49 PM Film Library- Storage [...] this assessment. Recommendations were communicated to primary clinical team manager. Fernando Giles MD 03/21/2023 Coding Determination 1. [...] [] Minimal - [] Minimal [] Straightforward 35005 [] Low [] Low [] Low [] Low 26361 [] Moderate [x] Moderate [] Moderate [] Moderate 92732 [x] High [] High [x] High [x] High 50516 Final Coding Determination: Straightforward * Consult Note - Jessica Haywood [facility] - 03/21/2023 11:30 AM EDT BIT [...] surgery. Because patient will be evaluated by [facility] psychiatrist who can obtain more history, etc., [...] support. Interventions delivered: Supportive therapy Plan: KATE [facility] to follow for supportive therapy Outstanding Discharge Needs: Other: TBD - patient already has an established outpatient therapist Time spent with the patient (min):30 minutes Time spent on case coordination (min): 15 minutes Jessica Haywood MA, [facility] Mental [facility] - BIT (Behavioral Intervention Team) Dept. of Psychiatry - Inpatient Psych. Services Pager: [phone] * Initial Assessments - Pito Baltazar, OT [...] Borrero MD at [facility] ??? PRO UPPER GI ENDOSCOPY, DIAGNOSTIC N/A 03/05/2023 EGD, UPPER GI ENDOSCOPY (WRVU 2.09) performed by Iram Borrero MD at [facility] Active Non-Hospital Problems Diagnosis [...] planning. Total Minutes, Occupational Therapy: 34 (Eval ([id number])) 2017 OT Evaluation Code Rationale: ?? Diagnosis [...] and measurable assessment of functional outcome. Pager: [phone] Pito Baltazar OT 03/20/2023 Occupational Therapy Rehabilitation Department * Op Note - Gerber Salomon MD - 03/20/2023 11:55 AM EDT [facility] Operative Note Patient Name: Leandra Wilks : [id number] MR#: [id number] Case Date: 03/20/2023 Surgeon: Surgeon(s) and Role: [...] Borrero MD at [facility] ??? PRO UPPER GI ENDOSCOPY, DIAGNOSTIC N/A 03/05/2023 EGD, UPPER GI ENDOSCOPY (WRVU 2.09) performed by Iram Borrreo MD at [facility] SOCIAL HX: Social History [...] who have questions please contact the health patient care secretary that requested your imaging first. Film Library- [...] EGD. Raúl Zapien MD Section of Gastroenterology [facility] * Plan of Care - Cecily Sloan [...] N/A ; Prescription Coverage: Yes Preferred Pharmacy: [facility] - [place], [place] - [address] [facility] [address] [facility] [address] [facility] [place], [place] - [address] [facility] [address] Advance Care Planning: Attempt Cardiopulmonary Resuscitation - Inpatient <no information> -Advanced Directive: (not on file) Current Functional Ability: Assistive Person Functional Status Prior to Admission: Independent Home Environment: Others in the home: significant other. Current Living Arrangements: home/apartment/condo. Accessibility Concerns:second floor apartment, FOS to manage. Current DME: none [facility] [address] Social & Family Supports: All names listed below confirmed with patient as current and correct Extended Emergency Contact Information Primary Emergency Contact: JAXON BLAKE Address: [address] [place] [address] [facility] Mobile Relation: Life Partner Secondary Emergency Contact: LoyOzzy Address: [address] [facility] [facility] Relation: Child Current Care Provided by: self [...] private car when medically ready. Registered Nurse Top Distribution Executive / Installment Account Checker will continue to follow patient???s progress and remain available if situation changes for coordination of care, psychosocial support and/or discharge planning. Office of Care Management Janis HEDRICK RN Surgery Team Top Distribution ExecutiveReel Repairer of Care Management [email or web address] Pager #[phone] * Consult Note - Emmanuel Rodriguez [facility] - 03/19/2023 1:00 AM EDT TelePharmacy [...] On track(2021 10:28 AM EST) Jill Colmenares, PROGRAMMING EQUIPMENT OPERATOR Note: Mindfulness/deep breathing practice to reduce cortisol -try for at least 10 minutes a day -try an ap such as headspace I have referred you to our psychologist to work on eating behaviors Health Motor Rebuilder is sending hand-outs with exercises for mindful eating, The Pause/STOP and Urge surfing. Patient will review and try implementing some behaviors before we meet again. movement Lifestyle On track(2021 10:29 AM EST) Jill Colmenares, PROGRAMMING EQUIPMENT OPERATOR Note: Exercise goal is 150 min a week, just do some walking, even [address] to start Recommend resistance training 3 times a week -can use [employer] Nutrition - 09/26/22 Lifestyle On track(2021 10:29 [...] EDT HC CBC,PLT & AUTO DIFF Routine 3 4:00 AM EDT PHOSPHORUS Routine 03/26/2023 4:00 AM EDT MAGNESIUM Routine 03/26/2023 4:00 AM EDT FERRITIN Routine 03/26/2023 4:00 AM EDT CK Routine 03/26/2023 4:00 AM EDT COMPREHENSIVE METABOLIC PANEL Routine 4:00 AM EDT HEMOGRAM Routine 03/25/2023 3:31 AM EDT DIFFERENTIAL, AUTOMATED Routine 03/25/20 3:31 AM EDT HC CBC,PLT & AUTO DIFF Routine 3 3:31 AM EDT PHOSPHORUS Routine 03/25/2023 3:31 AM EDT MAGNESIUM Routine 03/25/2023 3:31 AM EDT COMPREHENSIVE METABOLIC PANEL Routine 3:31 AM EDT MRI ORBIT WWO CONTRAST Routine 11:16 AM EDT MRI BRAIN WWO CONTRAST (GENERIC) Routine 03/24/2023 11:16 AM EDT ALANINE AMINOTRANSFERASE Routine 023 5:51 AM EDT ASPARTATE AMINOTRANSFERASE Routine 03/24 [...] 8:17 PM EDT Freeing Bowel Adhesion, Enterolysis (24505) 03/22/2023 7:25 PM EDT 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 Lymphocytes Abs 2.3 0.9 - 3.2 x10(3)/mc L [facility] Monocyte % 5.6 % [facility] Monocyte Abs 0.4 0.3 - 0.9 x10(3)/mc L [facility] Eos % 4.9 % [facility] Eosinophils Abs 0.4 0.0 - 0.4 x10(3)/mc L [facility] Basophil % 0.3 % [facility] Baso Absolute 0.0 0.0 - 0.1 x10(3)/mc L [facility] Immature Gran % 1.10 % [facility] Comment: Immature granulocytes(IG's)percentage and absolute count will include metamyelocytes, myelocytes, and promyelocytes. Blood smears from CBCs yielding IG's will be scanned manually for concordance. If this scan disagrees with the automated IG or if promyelocytes are noted, a manual differential will be performed. Immature Gran Absolute 0.08(H) 0.00 - 0.04 x10(3)/ L [facility] Blood 03/27/2023 3:50 AM EDT 03/27/2023 4:21 AM EDT Narrative Resulting Agency Comment Spec In Lab Natalee Winn MD HEMATOLOGY ORDERABLE S [facility] [place] [address] * (ABNORMAL) Hemogram (03/27/2023 3:50 AM EDT) White Blood Cell 7.1 4.0 - 9.5 x10(3)/mc L [facility] Red Blood Cell 3.75(L) 4.00 - 5.21 x10(6)/ L [facility] Hemoglobin 10.9(L) 11.7 - 15.5 g/dL [facility] Hematocrit 31.5(L) 35.7 - 45.8 % [facility] Mean Cell Volume 84.0 82.6 - 94.4 fL [facility] Mean Cell Hemoglobin 29.1 27.1 - 32.0 pg [facility] Mean Cell Hemoglobin Concentration 34.6 31.7 - 35.0 g/dL [facility] Platelet 297 145 - 357 x10(3)/mc L [facility] RDW Standard Deviation 47.8(H) 37.0 - 46.0 fL [facility] RDW coefficient of variation 15.9(H) 11.5 - 14.1 % [facility] Mean Platelet Volume 9.3 7.6 - 12.9 fL [facility] NRBC% auto 0.0 % [facility] NRBC Absolute 0.000 0.000 - 0.000 x10(3)/mc L [facility] Blood 03/27/2023 3:50 AM EDT 03/27/2023 4:21 AM EDT Narrative Resulting Agency Comment Spec In Lab Natalee Winn MD HEMATOLOGY ORDERABLE S [facility] [address] [place] [address] * (ABNORMAL) Comprehensive metabolic panel (non-fasting) (03/27/2023 3:50 AM EDT) Glucose 86 65 - 199 mg/dL [facility] Comment:Diabetes: >=200 mg/d L plus symptoms Blood Urea Nitrogen 10 8 - 18 mg/dL [facility] Comment:result rechecked-GH Creatinine 0.74 0.70 - 1.20 mg/dL [facility] Sodium 141 135 - 145 mmol/L [facility] Potassium 3.5 3.5 - 5.0 mmol/L [facility] Comment: Please note: ??Patients with WBC >100,000 may have falsely elevated Potassium levels. ??For accurate Potassium quantification in these patients send serum separator tube (gold top) for subsequent determinations. ??Contact the Clinical Chemistry Laboratory if there are any questions. Chloride 105 98 - 107 mmol/L [facility] Carbon Dioxide 25 22 - 31 mmol/L [facility] Anion Gap 11 5 - 15 mmol/L [facility] Calcium 8.7 8.5 - 10.5 mg/dL [facility] Protein, Total 5.3(L) 6.1 - 8.0 g/dL [facility] Albumin 3.2 3.2 - 5.2 g/dL [facility] Aspartate Aminotransferase 40(H) 0 - 30 unit/L [facility] Alanine Aminotransferase 42(H) 0 - 30 unit/L [facility] Alkaline Phosphatase 111(H) 35 - 105 unit/L [facility] Bilirubin, Total 0.7 0.2 - 1.3 mg/dL [facility] Est Glomerular Filtration Rate 102 >=60 mL/min/1. 73 m?? [facility] Comment: This patient's estimated GFR was calculated using the 2021 CKD-EPI equation. The estimated GFR can vary [...] MD CHEMISTRY ORDERABLES Performing Organization Address City/[facility]/ZIP Co de Phone Number [facility] [place] [address] * Phosphorus (03/27/2023 3:50 AM EDT) Phosphorus 4.3 2.5 - 4.5 mg/dL [facility] Blood 03/27/2023 3:50 AM EDT 03/27/2023 4:19 AM EDT Narrative Resulting Agency Comment Spec In Lab Natalee Winn MD CHEMISTRY ORDERABLES Performing Organization Address [facility] Co de Phone Number [facility] [place] [address] * Magnesium (03/27/2023 3:50 AM EDT) Magnesium 0.85 0.69 - 1.07 mmol/L [facility] Blood 03/27/2023 3:50 AM EDT 03/27/2023 4:19 AM EDT Narrative Resulting Agency Comment Spec In Lab Natalee Winn MD CHEMISTRY ORDERABLES Performing Organization Address [facility] Co de Phone Number [facility] [place] [address] * POCT Glucose (03/26/2023 7:43 PM EDT) Glucose, POC 89 65 - 199 mg/dL [facility] Comment: Supplemental ranges: <140 mg/dL before meals <180 mg/dL all other times of the day Blood 03/26/2023 7:43 PM EDT 03/26/2023 7:43 PM EDT Iram Borrero MD POINT OF CARE TEST O RDERABLES Performing Organization Address [facility]/ZIP Co de Phone Number [facility] [place] [address] * Lamotrigine Lvl (03/26/2023 4:00 AM EDT) Pathologist [facility] Lamotrigine Lvl (MARCH) 3.6 3.0 - 15.0 mcg/mL [facility] Comment: ADDITIONAL INFORMATION This test was developed and its performance characteristics determined by [facility] in a manner consistent with CLIA requirements. This test has not been cleared or approved by the U.S. Food and Drug Administration. Test Performed by: [facility] [place] [address] Sales Representative Education Courses: Erlin Orlando M.D. Ph.D.; CLIA# [id number] Blood Venous Draw / Unknown 03/26/2023 4:00 AM EDT 03/26/2023 3:52 PM EDT Narrative Resulting Agency Comment Spec In Lab Natalee Winn MD LAB SEND OUT ORDERAB LES Performing Organization Address City/[facility]/ZIP Co de Phone Number [facility] [place] [address] * (ABNORMAL) Ferritin (03/26/2023 4:00 AM EDT) Ferritin 778(H) 15 - 150 ng/mL [facility] Comment: Pediatric reference ranges not verified at [facility] interpret with caution. Reference ranges for females greater than 50 years of age approach values for men, i.e., 30-400 ng/mL. Blood Venous Draw / Unknown 03/26/2023 4:00 AM EDT 03/26/2023 4:37 AM EDT Narrative Resulting Agency Comment Spec In Lab Joan GAINES CHEMISTRY ORDERABLE S [facility] [place] [address] * (ABNORMAL) Iron and TIBC (03/26/2023 4:00 AM EDT) Iron 80 30 - 150 mcg/dL [facility] TIBC 226(L) 250 - 450 mcg/dL [facility] Iron Saturation 35 20 - 50 % [facility] Blood Venous Draw / Unknown 03/26/2023 4:00 AM EDT 03/26/2023 4:36 AM EDT Narrative Resulting Agency Comment Spec In Lab Joan GAINES CHEMISTRY ORDERABLE S Performing Organization Address City/[facility]/ZIP Co de Phone Number [facility] [place] [address] * Vitamin D, 25-Hydroxy (03/26/2023 4:00 AM EDT) Vitamin D Total 25 OH 34 21 - 100 ng/mL [facility] Vit D Interp Sufficient [facility] Blood Venous Draw / Unknown 03/26/2023 4:00 AM EDT 03/26/2023 4:37 AM EDT Narrative Resulting Agency Comment Spec In Lab Joan GAINES CHEMISTRY ORDERABLE S Performing Organization Address City/[facility]/ZIP Co de Phone Number [facility] [place] [address] * Green Tube HOLD (03/26/2023 4:00 AM EDT) Green Hold Sample in lab. [facility] Blood Venous Draw / Unknown 03/26/2023 4:00 AM EDT 03/26/2023 4:35 AM EDT Natalee Winn MD [place] [address] * Gold Tube HOLD (03/26/2023 4:00 AM EDT) Gold Hold Sample in lab. [facility] Blood Venous Draw / Unknown 03/26/2023 4:00 AM EDT 03/26/2023 4:36 AM EDT Natalee Winn MD [place] [address] * (ABNORMAL) Differential, Automated (03/26/2023 4:00 AM EDT) Neutrophil % 54.4 % [facility] Neutrophil Absolute 3.65 1.70 - 6.10 x10(3)/mc L [facility] Lymph % 31.2 % [facility] Lymphocytes Abs 2.1 0.9 - 3.2 x10(3)/mc L [facility] Monocyte % 6.0 % [facility] Monocyte Abs 0.4 0.3 - 0.9 x10(3)/mc L [facility] Eos % 6.0 % [facility] Eosinophils Abs 0.4 0.0 - 0.4 x10(3)/mc L [facility] Basophil % 0.6 % [facility] Baso Absolute 0.0 0.0 - 0.1 x10(3)/mc L [facility] Immature Gran % 1.80 % [facility] Comment: Immature granulocytes(IG's)percentage and absolute count will include metamyelocytes, myelocytes, and promyelocytes. Blood smears from CBCs yielding IG's will be scanned manually for concordance. If this scan disagrees with the automated IG or if promyelocytes are noted, a manual differential will be performed. Immature Gran Absolute 0.12(H) 0.00 - 0.04 x10(3)/mc L [facility] Blood 03/26/2023 4:00 AM EDT 03/26/2023 4:35 AM EDT Narrative Resulting Agency Comment Spec In Lab Natalee Winn MD HEMATOLOGY ORDERABLE S [facility] [place] [address] * (ABNORMAL) Hemogram (03/26/2023 4:00 AM EDT) White Blood Cell 6.7 4.0 - 9.5 x10(3)/mc L [facility] Red Blood Cell 4.00 4.00 - 5.21 x10(6)/mc L [facility] Hemoglobin 11.4(L) 11.7 - 15.5 g/dL [facility] Hematocrit 34.0(L) 35.7 - 45.8 % [facility] Mean Cell Volume 85.0 82.6 - 94.4 fL [facility] Mean Cell Hemoglobin 28.5 27.1 - 32.0 pg [facility] Mean Cell Hemoglobin Concentration 33.5 31.7 - 35.0 g/dL [facility] Platelet 296 145 - 357 x10(3)/mc L [facility] RDW Standard Deviation 46.9(H) 37.0 - 46.0 fL [facility] RDW coefficient of variation 15.5(H) 11.5 - 14.1 % [facility] Mean Platelet Volume 9.1 7.6 - 12.9 fL [facility] NRBC% auto 0.0 % [facility] NRBC Absolute 0.000 0.000 - 0.000 x10(3)/mc L [facility] Blood 03/26/2023 4:00 AM EDT 03/26/2023 4:35 AM EDT Narrative Resulting Agency Comment Spec In Lab Natalee Winn MD HEMATOLOGY ORDERABLE S Performing Organization Address City/[facility]/ZIP Co de Phone Number [facility] [place] [address] * (ABNORMAL) Comprehensive metabolic panel (non-fasting) (03/26/2023 4:00 AM EDT) Glucose 82 65 - 199 mg/dL [facility] Comment:Diabetes: >=200 mg/d L plus symptoms Blood Urea Nitrogen 4(L) 8 - 18 mg/dL [facility] Creatinine 0.70 0.70 - 1.20 mg/dL [facility] Sodium 140 135 - 145 mmol/L [facility] Potassium 3.8 3.5 - 5.0 mmol/L [facility] Comment: Please note: ??Patients with WBC >100,000 may have falsely elevated Potassium levels. ??For accurate Potassium quantification in these patients send serum separator tube (gold top) for subsequent determinations. ??Contact the Clinical Chemistry Laboratory if there are any questions. Chloride 104 98 - 107 mmol/L [facility] Carbon Dioxide 25 22 - 31 mmol/L [facility] Anion Gap 11 5 - 15 mmol/L [facility] Calcium 8.7 8.5 - 10.5 mg/dL [facility] Protein, Total 5.7(L) 6.1 - 8.0 g/dL [facility] Albumin 3.3 3.2 - 5.2 g/dL [facility] Aspartate Aminotransferase 41(H) 0 - 30 unit/L [facility] Alanine Aminotransferase 42(H) 0 - 30 unit/L [facility] Alkaline Phosphatase 119(H) 35 - 105 unit/L [facility] Bilirubin, Total 0.6 0.2 - 1.3 mg/dL [facility] Est Glomerular Filtration Rate 109 >=60 mL/min/1. 73 m?? [facility] Comment: This patient's estimated GFR [...] MD CHEMISTRY ORDERABLES Performing Organization Address City/[facility] Co de Phone Number [facility] [place] [address] * Phosphorus (03/26/2023 4:00 AM EDT) Phosphorus 4.4 2.5 - 4.5 mg/dL [facility] Blood 03/26/2023 4:00 AM EDT 03/26/2023 4:35 AM EDT Narrative Resulting Agency Comment Spec In Lab Natalee Winn MD CHEMISTRY ORDERABLES Performing Organization Address [facility] de Phone Number [facility] [place] [address] * Magnesium (03/26/2023 4:00 AM EDT) Magnesium 0.94 0.69 - 1.07 mmol/L [facility] Blood 03/26/2023 4:00 AM EDT 03/26/2023 4:35 AM EDT Narrative Resulting Agency Comment Spec In Lab Natalee Winn MD CHEMISTRY ORDERABLES Performing Organization Address [facility] de Phone Number [facility] [place] [address] * TSH Mora (03/26/2023 4:00 AM EDT) Thyroid Stimulating Hormone 0.47 0.27 - 4.20 mcIU/mL [facility] Comment: Reference Interval (mcIU/mL): Females: ??First Trimester: 0.23-3.88 ??Second Trimester: 0.22-3.90 ??Third Trimester: 0.44-4.66 Blood 03/26/2023 4:00 AM EDT 03/26/2023 4:35 AM EDT Narrative Resulting Agency Comment Spec In Lab Iram Borrero MD CHEMISTRY ORDERABLES [facility] [place] [address] * CK (03/26/2023 4:00 AM EDT) Pathologist [facility] Creatine Kinase 51 0 - 160 unit/L [facility] Blood 03/26/2023 4:00 AM EDT 03/26/2023 4:35 AM EDT Narrative Resulting Agency Comment Spec In Lab Iram Borrero MD CHEMISTRY ORDERABLES [facility] [place] [address] * CRP, acute inflammation (03/26/2023 4:00 AM EDT) Pathologist [facility] C-Reactive Protein 4.5 <=4.9 mg/L [facility] Blood 03/26/2023 4:00 AM EDT 03/26/2023 4:35 AM EDT Narrative Resulting Agency Comment Spec In Lab Iram Borrero MD CHEMISTRY ORDERABLES Performing Organization Address [facility] Co de Phone Number [facility] [place] [address] * Sedimentation rate (03/26/2023 4:00 AM EDT) [facility] Sedimentation Rate Automated 16 2 - 37 mm/hr [facility] Comment: Effective October 28, 2019 new capillary photometric technology has resulted in a change in reference ranges. It is recommended that each ESR result be reviewed with its own age appropriate reference range. Blood 03/26/2023 4:00 AM EDT 03/26/2023 4:35 AM EDT Narrative Resulting Agency Comment Spec In Lab Iram Borrero MD HEMATOLOGY ORDERABLE S Performing Organization Address City/[facility]/ZIP Co de Phone Number [facility] [place] [address] * (ABNORMAL) Differential, Automated (03/25/2023 3:31 AM EDT) Pathologist [facility] Neutrophil % 55.0 % [facility] Neutrophil Absolute 4.60 1.70 - 6.10 x10(3)/mc L [facility] Lymph % 29.4 % [facility] Lymphocytes Abs 2.5 0.9 - 3.2 x10(3)/mc L [facility] Monocyte % 6.2 % [facility] Monocyte Abs 0.5 0.3 - 0.9 x10(3)/mc L [facility] Eos % 5.7 % [facility] Eosinophils Abs 0.5(H) 0.0 - 0.4 x10(3)/mc L [facility] Basophil % 0.7 % [facility] Baso Absolute 0.1 0.0 - 0.1 x10(3)/mc L [facility] Immature Gran % 3.00 % [facility] Comment: Immature granulocytes(IG's)percentage and absolute count will include metamyelocytes, myelocytes, and promyelocytes. Blood smears from CBCs yielding IG's will be scanned manually for concordance. If this scan disagrees with the automated IG or if promyelocytes are noted, a manual differential will be performed. Immature Gran Absolute 0.25(H) 0.00 - 0.04 x10(3)/mc L [facility] Blood 03/25/2023 3:31 AM EDT 03/25/2023 3:44 AM EDT Narrative Resulting Agency Comment Spec In Lab Natalee Winn MD HEMATOLOGY ORDERABLE S [facility] [place] [address] * (ABNORMAL) Hemogram (03/25/2023 3:31 AM EDT) White Blood Cell 8.4 4.0 - 9.5 x10(3)/mc L [facility] Red Blood Cell 3.77(L) 4.00 - 5.21 x10(6)/mc L [facility] Hemoglobin 10.8(L) 11.7 - 15.5 g/dL [facility] Hematocrit 32.8(L) 35.7 - 45.8 % [facility] Mean Cell Volume 87.0 82.6 - 94.4 fL [facility] Mean Cell Hemoglobin 28.6 27.1 - 32.0 pg [facility] Mean Cell Hemoglobin Concentration 32.9 31.7 - 35.0 g/dL [facility] Platelet 291 145 - 357 x10(3)/mc L [facility] RDW Standard Deviation 48.2(H) 37.0 - 46.0 fL [facility] RDW coefficient of variation 15.0(H) 11.5 - 14.1 % [facility] Mean Platelet Volume 9.8 7.6 - 12.9 fL [facility] NRBC% auto 0.0 % [facility] NRBC Absolute 0.000 0.000 - 0.000 x10(3)/mc L [facility] Blood 03/25/2023 3:31 AM EDT 03/25/2023 3:44 AM EDT Narrative Resulting Agency Comment Spec In Lab Natalee Winn MD HEMATOLOGY ORDERABLE S Performing Organization Address City/State/[facility] Co de Phone Number [facility] [place] [address] * (ABNORMAL) Comprehensive metabolic panel (non-fasting) (03/25/2023 3:31 AM EDT) Glucose 94 65 - 199 mg/dL [facility] Comment:Diabetes: >=200 mg/d L plus symptoms Blood Urea Nitrogen 3(L) 8 - 18 mg/dL [facility] Creatinine 0.61(L) 0.70 - 1.20 mg/dL [facility] Sodium 138 135 - 145 mmol/L [facility] Potassium 3.4(L) 3.5 - 5.0 mmol/L [facility] Comment: Please note: ??Patients with WBC >100,000 may have falsely elevated Potassium levels. ??For accurate Potassium quantification in these patients send serum separator tube (gold top) for subsequent determinations. ??Contact the Clinical Chemistry Laboratory if there are any questions. Chloride 100 98 - 107 mmol/L [facility] Carbon Dioxide 22 22 - 31 mmol/L [facility] Anion Gap 16(H) 5 - 15 mmol/L [facility] Calcium 8.8 8.5 - 10.5 mg/dL [facility] Protein, Total 5.6(L) 6.1 - 8.0 g/dL [facility] Albumin 3.2 3.2 - 5.2 g/dL [facility] Aspartate Aminotransferase 43(H) 0 - 30 unit/L [facility] Alanine Aminotransferase 42(H) 0 - 30 unit/L [facility] Alkaline Phosphatase 115(H) 35 - 105 unit/L [facility] Bilirubin, Total 0.6 0.2 - 1.3 mg/dL [facility] Est Glomerular Filtration Rate 112 >=60 mL/min/1. 73 m?? [facility] Comment: This patient's estimated GFR [...] In Lab Natalee Winn MD CHEMISTRY ORDERABLES [facility] [place] [address] * Phosphorus (03/25/2023 3:31 AM EDT) Phosphorus 3.4 2.5 - 4.5 mg/dL [facility] Blood 03/25/2023 3:31 AM EDT 03/25/2023 3:43 AM EDT Narrative Resulting Agency Comment Spec In Lab Natalee Winn MD CHEMISTRY ORDERABLES [facility] [place] [address] * (ABNORMAL) Magnesium (03/25/2023 3:31 AM EDT) Magnesium 0.67(L) 0.69 - 1.07 mmol/L [facility] Blood 03/25/2023 3:31 AM EDT 03/25/2023 3:43 AM EDT Narrative Resulting Agency Comment Spec In Lab Natalee Winn MD CHEMISTRY ORDERABLES Performing Organization Address City/State/[facility] Co de Phone Number [facility] [place] [address] * MRI Brain wwo Contrast (Generic) (03/24/2023 [...] who have questions please contact the health patient care secretary that requested your imaging first. ? Narrative 03/24/2023 12:20 PM EDT EXAMINATION: MRI BRAIN WWO CONTRAST (GENERIC), MRI ORBIT WWO CONTRAST CLINICAL HISTORY: Dizziness, non-specific dizziness, diplopia, rule out stroke? (accession [id number]), right eye weakness, diplopia, concern for possible inferior rectus infiltration or inflamation vs. possible optic neuritis (accession [id number]). Right-sided weakness, diplopia, concerning for possible inferior [...] non-specific dizziness, diplopia, rule out stroke? (accession [id number]), right eyeweakness, diplopia, concern for possible inferior rectus infiltration or inflamationvs. possible optic neuritis (accession [id number]). Right-sided weakness,diplopia, concerning for possible inferior rectus [...] patients who have questions please contactthe health patient care secretary that requested your imaging first. Natalee Winn MD [facility] MRI ORDERABLES * MRI [...] who have questions please contact the health patient care secretary that requested your imaging first. ? Narrative 03/24/2023 12:20 PM EDT EXAMINATION: MRI BRAIN WWO CONTRAST (GENERIC), MRI ORBIT WWO CONTRAST CLINICAL HISTORY: Dizziness, non-specific dizziness, diplopia, rule out stroke? (accession [id number]), right eye weakness, diplopia, concern for possible inferior rectus infiltration or inflamation vs. possible optic neuritis (accession [id number]). Right-sided weakness, diplopia, concerning for possible inferior [...] non-specific dizziness, diplopia, rule out stroke? (accession [id number]), right eyeweakness, diplopia, concern for possible inferior rectus infiltration or inflamationvs. possible optic neuritis (accession [id number]). Right-sided weakness,diplopia, concerning for possible inferior rectus [...] patients who have questions please contactthe health patient care secretary that requested your imaging first. Natalee Winn MD IMG MRI ORDERABLES * (ABNORMAL) Aspartate Aminotransferase (03/24/2023 5:51 AM EDT) Aspartate Aminotransferase 54(H) 0 - 30 unit/L [facility] Blood 03/24/2023 5:51 AM EDT 03/24/2023 6:02 AM EDT Narrative Resulting Agency Comment Spec In Lab Iram Borrero MD CHEMISTRY ORDERABLES Performing Organization Address [facility] Co de Phone Number [facility] [place] [address] * (ABNORMAL) Alanine Aminotransferase (03/24/2023 5:51 AM EDT) Alanine Aminotransferase 41(H) 0 - 30 unit/L [facility] Blood 03/24/2023 5:51 AM EDT 03/24/2023 6:02 AM EDT Narrative Resulting Agency Comment Spec In Lab Iram Borrreo MD CHEMISTRY ORDERABLES Performing Organization Address [facility] Co de Phone Number [facility] [place] [address] * (ABNORMAL) Potassium (03/24/2023 5:51 AM EDT) Potassium 3.4(L) 3.5 - 5.0 mmol/L [facility] Comment: Please note: ??Patients with WBC >100,000 may have falsely elevated Potassium levels. ??For accurate Potassium quantification in these patients send serum separator tube (gold top) for subsequent determinations. ??Contact the Clinical Chemistry Laboratory if there are any questions. Blood 03/24/2023 5:51 AM EDT 03/24/2023 6:02 AM EDT Narrative Resulting Agency Comment Spec In Lab Iram Borrero MD [place] [address] * (ABNORMAL) Differential, Automated (03/24/2023 3:51 AM EDT) Neutrophil % 51.7 % [facility] Neutrophil Absolute 3.49 1.70 - 6.10 x10(3)/mc L [facility] Lymph % 37.0 % [facility] Lymphocytes Abs 2.5 0.9 - 3.2 x10(3)/mc L [facility] Monocyte % 4.1 % [facility] Monocyte Abs 0.3 0.3 - 0.9 x10(3)/mc L [facility] Eos % 4.3 % [facility] Eosinophils Abs 0.3 0.0 - 0.4 x10(3)/mc L [facility] Basophil % 0.4 % [facility] Baso Absolute 0.0 0.0 - 0.1 x10(3)/mc L [facility] Immature Gran % 2.50 % [facility] Comment: Immature granulocytes(IG's)percentage and absolute count will include metamyelocytes, myelocytes, and promyelocytes. Blood smears from CBCs yielding IG's will be scanned manually for concordance. If this scan disagrees with the automated IG or if promyelocytes are noted, a manual differential will be performed. Immature Gran Absolute 0.17(H) 0.00 - 0.04 x10(3)/mc L [facility] Blood 03/24/2023 3:51 AM EDT 03/24/2023 4:09 AM EDT Narrative Resulting Agency Comment Spec In Lab Natalee Winn MD HEMATOLOGY ORDERABLE S Performing Organization Address City/[facility]/ZIP Co de Phone Number [facility] [place] [address] * (ABNORMAL) Hemogram (03/24/2023 3:51 AM EDT) White Blood Cell 6.8 4.0 - 9.5 x10(3)/mc L [facility] Red Blood Cell 3.69(L) 4.00 - 5.21 x10(6)/mc L [facility] Hemoglobin 10.5(L) 11.7 - 15.5 g/dL [facility] Hematocrit 31.5(L) 35.7 - 45.8 % [facility] Mean Cell Volume 85.4 82.6 - 94.4 fL [facility] Mean Cell Hemoglobin 28.5 27.1 - 32.0 pg [facility] Mean Cell Hemoglobin Concentration 33.3 31.7 - 35.0 g/dL [facility] Platelet 268 145 - 357 x10(3)/mc L [facility] RDW Standard Deviation 46.3(H) 37.0 - 46.0 fL [facility] RDW coefficient of variation 14.8(H) 11.5 - 14.1 % [facility] Mean Platelet Volume 9.2 7.6 - 12.9 fL [facility] NRBC% auto 0.0 % [facility] NRBC Absolute 0.000 0.000 - 0.000 x10(3)/ L [facility] Blood 03/24/2023 3:51 AM EDT 03/24/2023 4:09 AM EDT Narrative Resulting Agency Comment Spec In Lab Natalee Winn MD HEMATOLOGY ORDERABLE S Performing Organization Address City/State/[facility] Co de Phone Number [facility] [place] [address] * (ABNORMAL) Comprehensive metabolic panel (non-fasting) (03/24/2023 3:51 AM EDT) Glucose 81 65 - 199 mg/dL [facility] Comment:Diabetes: >=200 mg/d L plus symptoms Blood Urea Nitrogen 5(L) 8 - 18 mg/dL [facility] Creatinine 0.65(L) 0.70 - 1.20 mg/dL [facility] Sodium 141 135 - 145 mmol/L [facility] Potassium Not Perf 3.5 - 5.0 [facility] Comment: Unable to quantitate due [...] questions. Chloride 104 98 - 107 mmol/L [facility] Carbon Dioxide 29 22 - 31 mmol/L [facility] Anion Gap 8 5 - 15 mmol/L [facility] Calcium 8.3(L) 8.5 - 10.5 mg/dL [facility] Protein, Total 5.1(L) 6.1 - 8.0 g/dL [facility] Albumin 3.0(L) 3.2 - 5.2 g/dL [facility] Aspartate Aminotransferase Not Perf 0 - 30 [facility] Comment: Unable to quantitate due to sample hemolysis. ??Sample redraw suggested. Called by: GUCCI, Read back by: Candelaria Fish, Date/Time:03/24/23 04:45. Alanine Aminotransferase Not Perf 0 - 30 [facility] Comment: Unable to quantitate due to sample hemolysis. ??Sample redraw suggested. Called by: GUCCI, Read back by: Candelaria Fish, Date/Time:03/24/23 04:45. Alkaline Phosphatase 103 35 - 105 unit/L [facility] Bilirubin, Total 0.7 0.2 - 1.3 mg/dL [facility] Est Glomerular Filtration Rate 111 >=60 mL/min/1. 73 m?? [facility] Comment: This patient's estimated GFR [...] Comment Spec In Lab aNtalee Winn MD CHEMISTRY ORDERABLES Performing Organization Address [facility] Co de Phone Number [facility] [place] [address] * Phosphorus (03/24/2023 3:51 AM EDT) Phosphorus 3.1 2.5 - 4.5 mg/dL [facility] Blood 03/24/2023 3:51 AM EDT 03/24/2023 4:09 AM EDT Narrative Resulting Agency Comment Spec In Lab Natalee Winn MD CHEMISTRY ORDERABLES Performing Organization Address [facility] [place] [address] * Magnesium (03/24/2023 3:51 AM EDT) Magnesium 0.75 0.69 - 1.07 mmol/L [facility] Blood 03/24/2023 3:51 AM EDT 03/24/2023 4:09 AM EDT Narrative Resulting Agency Comment Spec In Lab Natalee Winn MD CHEMISTRY ORDERABLES Performing Organization Address [facility] Co de Phone Number [facility] [place] [address] * (ABNORMAL) Differential, Automated (03/23/2023 8:07 AM EDT) Neutrophil % 79.5 % [facility] LABORATORY Neutrophil Absolute 7.13(H) 1.70 - 6.10 x10(3)/mc L [facility] Lymph % 15.8 % [facility] Lymphocytes Abs 1.4 0.9 - 3.2 x10(3)/mc L [facility] Monocyte % 3.5 % [facility] Monocyte Abs 0.3 0.3 - 0.9 x10(3)/mc L [facility] Eos % 0.1 % [facility] Eosinophils Abs 0.0 0.0 - 0.4 x10(3)/mc L [facility] Basophil % 0.3 % [facility] Baso Absolute 0.0 0.0 - 0.1 x10(3)/mc L [facility] Immature Gran % 0.80 % [facility] Comment: Immature granulocytes(IG's)percentage and absolute count will include metamyelocytes, myelocytes, and promyelocytes. Blood smears from CBCs yielding IG's will be scanned manually for concordance. If this scan disagrees with the automated IG or if promyelocytes are noted, a manual differential will be performed. Immature Gran Absolute 0.07(H) 0.00 - 0.04 x10(3)/ L [facility] Blood 03/23/2023 8:07 AM EDT 03/23/2023 8:20 AM EDT Narrative Resulting Agency Comment Spec In Lab Natalee Winn MD HEMATOLOGY ORDERABLE S [facility] [place] [address] * (ABNORMAL) Hemogram (03/23/2023 8:07 AM EDT) White Blood Cell 9.0 4.0 - 9.5 x10(3)/mc L [facility] Red Blood Cell 3.52(L) 4.00 - 5.21 x10(6)/mc L [facility] Hemoglobin 10.2(L) 11.7 - 15.5 g/dL [facility] Hematocrit 30.2(L) 35.7 - 45.8 % [facility] Mean Cell Volume 85.8 82.6 - 94.4 fL [facility] Mean Cell Hemoglobin 29.0 27.1 - 32.0 pg [facility] Mean Cell Hemoglobin Concentration 33.8 31.7 - 35.0 g/dL [facility] Platelet 268 145 - 357 x10(3)/mc L [facility] RDW Standard Deviation 46.7(H) 37.0 - 46.0 fL [facility] RDW coefficient of variation 14.9(H) 11.5 - 14.1 % [facility] Mean Platelet Volume 9.6 7.6 - 12.9 fL [facility] NRBC% auto 0.0 % [facility] NRBC Absolute 0.000 0.000 - 0.000 x10(3)/mc L [facility] Blood 03/23/2023 8:07 AM EDT 03/23/2023 8:20 AM EDT Narrative Resulting Agency Comment Spec In Lab Natalee Winn MD HEMATOLOGY ORDERABLE S [facility] [place] [address] * (ABNORMAL) Differential, Automated (03/23/2023 3:39 AM EDT) Neutrophil % 87.3 % [facility] Neutrophil Absolute 6.54(H) 1.70 - 6.10 x10(3)/mc L [facility] Lymph % 9.7 % [facility] Lymphocytes Abs 0.7(L) 0.9 - 3.2 x10(3)/mc L [facility] Monocyte % 2.0 % [facility] Monocyte Abs 0.2(L) 0.3 - 0.9 x10(3)/mc L [facility] Eos % 0.1 % [facility] Eosinophils Abs 0.0 0.0 - 0.4 x10(3)/mc L [facility] Basophil % 0.1 % [facility] Baso Absolute 0.0 0.0 - 0.1 x10(3)/mc L [facility] Immature Gran % 0.80 % [facility] Comment: Immature granulocytes(IG's)percentage and absolute count will include metamyelocytes, myelocytes, and promyelocytes. Blood smears from CBCs yielding IG's will be scanned manually for concordance. If this scan disagrees with the automated IG or if promyelocytes are noted, a manual differential will be performed. Immature Gran Absolute 0.06(H) 0.00 - 0.04 x10(3)/mc L [facility] Blood 03/23/2023 3:39 AM EDT 03/23/2023 3:49 AM EDT Narrative Resulting Agency Comment Spec In Lab Natalee Winn MD HEMATOLOGY ORDERABLE S Performing Organization Address City/[facility]/ZIP Co de Phone Number [facility] [place] [address] * (ABNORMAL) Hemogram (03/23/2023 3:39 AM EDT) White Blood Cell 7.5 4.0 - 9.5 x10(3)/mc L [facility] Red Blood Cell 3.72(L) 4.00 - 5.21 x10(6)/ L [facility] Hemoglobin 10.5(L) 11.7 - 15.5 g/dL [facility] Hematocrit 31.8(L) 35.7 - 45.8 % [facility] Mean Cell Volume 85.5 82.6 - 94.4 fL [facility] Mean Cell Hemoglobin 28.2 27.1 - 32.0 pg [facility] Mean Cell Hemoglobin Concentration 33.0 31.7 - 35.0 g/dL [facility] Platelet 263 145 - 357 x10(3)/mc L [facility] RDW Standard Deviation 47.2(H) 37.0 - 46.0 fL [facility] RDW coefficient of variation 14.9(H) 11.5 - 14.1 % [facility] Mean Platelet Volume 9.4 7.6 - 12.9 fL [facility] NRBC% auto 0.0 % [facility] NRBC Absolute 0.000 0.000 - 0.000 x10(3)/mc L [facility] Blood 03/23/2023 3:39 AM EDT 03/23/2023 3:49 AM EDT Narrative Resulting Agency Comment Spec In Lab Natalee Winn MD HEMATOLOGY ORDERABLE S Performing Organization Address City/[facility]/ZIP Co de Phone Number [facility] [place] [address] * (ABNORMAL) Comprehensive metabolic panel (non-fasting) (03/23/2023 3:39 AM EDT) Glucose 111 65 - 199 mg/dL [facility] Comment:Diabetes: >=200 mg/d L plus symptoms Blood Urea Nitrogen 6(L) 8 - 18 mg/dL [facility] Creatinine 0.61(L) 0.70 - 1.20 mg/dL [facility] Sodium 139 135 - 145 mmol/L [facility] Potassium 4.3 3.5 - 5.0 mmol/L [facility] Comment: Please note: ??Patients with WBC >100,000 may have falsely elevated Potassium levels. ??For accurate Potassium quantification in these patients send serum separator tube (gold top) for subsequent determinations. ??Contact the Clinical Chemistry Laboratory if there are any questions. Chloride 103 98 - 107 mmol/L [facility] Carbon Dioxide 27 22 - 31 mmol/L [facility] Anion Gap 9 5 - 15 mmol/L [facility] Calcium 8.8 8.5 - 10.5 mg/dL [facility] Protein, Total 5.4(L) 6.1 - 8.0 g/dL [facility] Albumin 3.2 3.2 - 5.2 g/dL [facility] Aspartate Aminotransferase 39(H) 0 - 30 unit/L [facility] Alanine Aminotransferase 37(H) 0 - 30 unit/L [facility] Alkaline Phosphatase 107(H) 35 - 105 unit/L [facility] Bilirubin, Total 0.7 0.2 - 1.3 mg/dL [facility] Est Glomerular Filtration Rate 112 >=60 mL/min/1. 73 m?? [facility] Comment: This patient's estimated GFR [...] MD CHEMISTRY ORDERABLES Performing Organization Address City/[facility] Co de Phone Number [facility] [place] [address] * Phosphorus (03/23/2023 3:39 AM EDT) Phosphorus 3.4 2.5 - 4.5 mg/dL [facility] Blood 03/23/2023 3:39 AM EDT 03/23/2023 3:49 AM EDT Narrative Resulting Agency Comment Spec In Lab Natalee Winn MD CHEMISTRY ORDERABLES Performing Organization Address [facility] Co de Phone Number [facility] [place] [address] * Magnesium (03/23/2023 3:39 AM EDT) Magnesium 0.80 0.69 - 1.07 mmol/L [facility] Blood 03/23/2023 3:39 AM EDT 03/23/2023 3:49 AM EDT Narrative Resulting Agency Comment Spec In Lab Natalee Winn MD CHEMISTRY ORDERABLES Performing Organization Address [email or web address]] de Phone Number [facility] [place] [address] * POCT Glucose (03/22/2023 9:46 PM EDT) Glucose, POC 85 65 - 199 mg/dL [facility] Comment: Supplemental ranges: <140 mg/dL before meals <180 mg/dL all other times of the day Blood 03/22/2023 9:46 PM EDT 03/22/2023 9:46 PM EDT Iram Borrero MD POINT OF CARE TEST O RDERABLES Performing Organization Address City/[facility] Co de Phone Number [facility] [place] [address] * POCT Glucose (03/22/2023 2:32 PM EDT) Glucose, POC 90 65 - 199 mg/dL [facility] Comment: Supplemental ranges: <140 mg/dL before meals <180 mg/dL all other times of the day Blood 03/22/2023 2:32 PM EDT 03/22/2023 2:32 PM EDT Iram Borrero MD POINT OF CARE TEST O RDERABLES [facility] [place] [address] * (ABNORMAL) Differential, Automated (03/22/2023 4:17 AM EDT) Pathologist [facility] Neutrophil % 50.0 % [facility] Neutrophil Absolute 4.00 1.70 - 6.10 x10(3)/mc L [facility] Lymph % 42.9 % [facility] Lymphocytes Abs 3.4(H) 0.9 - 3.2 x10(3)/mc L [facility] Monocyte % 5.1 % [facility] Monocyte Abs 0.4 0.3 - 0.9 x10(3)/[facility] Eos % 1.2 % [facility] Eosinophils Abs 0.1 0.0 - 0.4 x10(3)/mc L [facility] Basophil % 0.2 % [facility] Baso Absolute 0.0 0.0 - 0.1 x10(3)/mc L [facility] Immature Gran % 0.60 % [facility] Comment: Immature granulocytes(IG's)percentage and absolute count will include metamyelocytes, myelocytes, and promyelocytes. Blood smears from CBCs yielding IG's will be scanned manually for concordance. If this scan disagrees with the automated IG or if promyelocytes are noted, a manual differential will be performed. Immature Gran Absolute 0.05(H) 0.00 - 0.04 x10(3)/mc L [facility] Blood 03/22/2023 4:17 AM EDT 03/22/2023 4:29 AM EDT Narrative Resulting Agency Comment Spec In Lab Lisandro Araya MD HEMATOLOGY ORDERABLE S [facility] [place] [address] * (ABNORMAL) Hemogram (03/22/2023 4:17 AM EDT) White Blood Cell 8.0 4.0 - 9.5 x10(3)/mc L [facility] Red Blood Cell 4.41 4.00 - 5.21 x10(6)/mc L [facility] Hemoglobin 12.6 11.7 - 15.5 g/dL [facility] Hematocrit 37.3 35.7 - 45.8 % [facility] Mean Cell Volume 84.6 82.6 - 94.4 fL [facility] Mean Cell Hemoglobin 28.6 27.1 - 32.0 pg [facility] Mean Cell Hemoglobin Concentration 33.8 31.7 - 35.0 g/dL [facility] Platelet 384(H) 145 - 357 x10(3)/mc L [facility] RDW Standard Deviation 44.9 37.0 - 46.0 fL [facility] RDW coefficient of variation 14.6(H) 11.5 - 14.1 % [facility] Mean Platelet Volume 9.5 7.6 - 12.9 fL [facility] NRBC% auto 0.0 % [facility] NRBC Absolute 0.000 0.000 - 0.000 x10(3)/mc L [facility] Blood 03/22/2023 4:17 AM EDT 03/22/2023 4:29 AM EDT Narrative Resulting Agency Comment Spec In Lab Lisandro Araya MD HEMATOLOGY ORDERABLE S [facility] [place] [address] * (ABNORMAL) Comprehensive metabolic panel (non-fasting) (03/22/2023 4:17 AM EDT) Glucose 101 65 - 199 mg/dL [facility] Comment:Diabetes: >=200 mg/d L plus symptoms Blood Urea Nitrogen 7(L) 8 - 18 mg/dL [facility] Creatinine 0.69(L) 0.70 - 1.20 mg/dL [facility] Sodium 140 135 - 145 mmol/L [facility] Potassium 3.4(L) 3.5 - 5.0 mmol/L [facility] Comment: Please note: ??Patients with WBC >100,000 may have falsely elevated Potassium levels. ??For accurate Potassium quantification in these patients send serum separator tube (gold top) for subsequent determinations. ??Contact the Clinical Chemistry Laboratory if there are any questions. Chloride 98 98 - 107 mmol/L [facility] Carbon Dioxide 32(H) 22 - 31 mmol/L [facility] Anion Gap 10 5 - 15 mmol/L [facility] Calcium 9.0 8.5 - 10.5 mg/dL [facility] Protein, Total 6.2 6.1 - 8.0 g/dL [facility] Albumin 3.8 3.2 - 5.2 g/dL [facility] Aspartate Aminotransferase 30 0 - 30 unit/L [facility] Alanine Aminotransferase 37(H) 0 - 30 unit/L [facility] Alkaline Phosphatase 118(H) 35 - 105 unit/L [facility] Bilirubin, Total 0.9 0.2 - 1.3 mg/dL [facility] Est Glomerular Filtration Rate 109 >=60 mL/min/1. 73 m?? [facility] Comment: This patient's estimated GFR [...] In Lab Natalee Winn MD CHEMISTRY ORDERABLES [facility] [place] [address] * Phosphorus (03/22/2023 4:17 AM EDT) Phosphorus 3.1 2.5 - 4.5 mg/dL [facility] Blood 03/22/2023 4:17 AM EDT 03/22/2023 4:29 AM EDT Narrative Resulting Agency Comment Spec In Lab Natalee Winn MD CHEMISTRY ORDERABLES Performing Organization Address City/[facility]/ZIP Co de Phone Number [facility] [place] [address] * Magnesium (03/22/2023 4:17 AM EDT) Magnesium 0.94 0.69 - 1.07 mmol/L [facility] Blood 03/22/2023 4:17 AM EDT 03/22/2023 4:29 AM EDT Narrative Resulting Agency Comment Spec In Lab Natalee Winn MD CHEMISTRY ORDERABLES Performing Organization Address City/[facility]/ZIP Co de Phone Number [facility] [place] [address] * Vitamin B12 (03/21/2023 6:00 PM EDT) Vitamin B12 612 232 - 1,245 pg/mL [facility] Blood 03/21/2023 6:00 PM EDT 03/21/2023 6:13 PM EDT Narrative Resulting Agency Comment Spec In Lab Iram Borrero MD CHEMISTRY ORDERABLES Performing Organization Address City/[facility]/ZIP Co de Phone Number [facility] [place] [address] * (ABNORMAL) Folate, serum (03/21/2023 6:00 PM EDT) Folate 4.0(L) 4.8 - 24.2 ng/mL [facility] Blood 03/21/2023 6:00 PM EDT 03/21/2023 6:13 PM EDT Narrative Resulting Agency Comment Spec In Lab Iram Borrero MD CHEMISTRY ORDERABLES Performing Organization Address [facility] Co de Phone Number [facility] [place] [address] * (ABNORMAL) Vitamin B1, whole blood (03/21/2023 6:00 PM EDT) Vit B1 Lvl Wb (MARCH) 32(L) 70 - 180 nmol/L [facility] Comment: ADDITIONAL INFORMATION This test was developed and its performance characteristics determined by [facility] in a manner consistent with CLIA requirements. This test has not been cleared or approved by the U.S. Food and Drug Administration. Test Performed by: [facility] [address] [place] [id number] Sales Representative Education Courses: Erlin Orlando M.D. Ph.D.; CLIA# [id number] Blood 03/21/2023 6:00 PM EDT 03/22/2023 12:57 PM EDT Narrative Resulting Agency Comment Spec In Lab Iram Borrero MD LAB SEND OUT ORDERAB LES Performing Organization Address [facility] Co de Phone Number [facility] [place] [address] * CT Head wo Contrast (Generic) (03/21/2023 [...] who have questions please contact the health patient care secretary that requested your imaging first. ? Electronically signed by: Erlin Castorena DO [facility] ??([phone]), at 03/21/2023 12:49 PM Narrative 03/21/2023 12:49 [...] patients who have questions please contactthe health patient care secretary that requested your imaging first. Iram Borrero MD [facility] CT ORDERABLES * (ABNORMAL) Differential, Automated (03/21/2023 3:46 AM EDT) Pathologist [facility] Neutrophil % 66.3 % [facility] Neutrophil Absolute 5.44 1.70 - 6.10 x10(3)/ L [facility] Lymph % 25.6 % [facility] Lymphocytes Abs 2.1 0.9 - 3.2 x10(3)/ L [facility] Monocyte % 5.6 % [facility] Monocyte Abs 0.5 0.3 - 0.9 x10(3)/ L [facility] Eos % 1.1 % [facility] Eosinophils Abs 0.1 0.0 - 0.4 x10(3)/[facility] LABORATORY Basophil % 0.5 % [facility] Baso Absolute 0.0 0.0 - 0.1 x10(3)/[facility]ORATORY Immature Gran % 0.90 % [facility] Comment: Immature granulocytes(IG's)percentage and absolute count will include metamyelocytes, myelocytes, and promyelocytes. Blood smears from CBCs yielding IG's will be scanned manually for concordance. If this scan disagrees with the automated IG or if promyelocytes are noted, a manual differential will be performed. Immature Gran Absolute 0.07(H) 0.00 - 0.04 x10(3)/ L [facility] Blood 03/21/2023 3:46 AM EDT 03/21/2023 4:07 AM EDT Narrative Resulting Agency Comment Spec In Lab Lisandro Araya MD HEMATOLOGY ORDERABLE S [facility] [place] [address] * (ABNORMAL) Hemogram (03/21/2023 3:46 AM EDT) White Blood Cell 8.2 4.0 - 9.5 x10(3)/mc L [facility] Red Blood Cell 4.60 4.00 - 5.21 x10(6)/[facility] LABORATORY Hemoglobin 13.3 11.7 - 15.5 g/dL [facility] Hematocrit 37.6 35.7 - 45.8 % [facility] Mean Cell Volume 81.7(L) 82.6 - 94.4 fL [facility] Mean Cell Hemoglobin 28.9 27.1 - 32.0 pg [facility] Mean Cell Hemoglobin Concentration 35.4(H) 31.7 - 35.0 g/dL [facility] Platelet 322 145 - 357 x10(3)/mc L [facility] RDW Standard Deviation 44.0 37.0 - 46.0 fL [facility] RDW coefficient of variation 14.8(H) 11.5 - 14.1 % [facility] Mean Platelet Volume 9.1 7.6 - 12.9 fL [facility] NRBC% auto 0.0 % [facility] NRBC Absolute 0.000 0.000 - 0.000 x10(3)/mc L [facility] Blood 03/21/2023 3:46 AM EDT 03/21/2023 4:07 AM EDT Narrative Resulting Agency Comment Spec In Lab Lisandro Araya MD HEMATOLOGY ORDERABLE S [facility] [place] [address] * (ABNORMAL) Comprehensive metabolic panel (non-fasting) (03/21/2023 3:46 AM EDT) Glucose 105 65 - 199 mg/dL [facility] Comment:Diabetes: >=200 mg/d L plus symptoms Blood Urea Nitrogen 6(L) 8 - 18 mg/dL [facility] Creatinine 0.54(L) 0.70 - 1.20 mg/dL [facility] Sodium 135 135 - 145 mmol/L [facility] Potassium 3.8 3.5 - 5.0 mmol/L [facility] Comment: Please note: ??Patients with WBC >100,000 may have falsely elevated Potassium levels. ??For accurate Potassium quantification in these patients send serum separator tube (gold top) for subsequent determinations. ??Contact the Clinical Chemistry Laboratory if there are any questions. Chloride 98 98 - 107 mmol/L [facility] Carbon Dioxide 27 22 - 31 mmol/L [facility] Anion Gap 10 5 - 15 mmol/L [facility] Calcium 8.4(L) 8.5 - 10.5 mg/dL [facility] Protein, Total 6.0(L) 6.1 - 8.0 g/dL [facility] Albumin 3.6 3.2 - 5.2 g/dL [facility] Aspartate Aminotransferase 24 0 - 30 unit/L [facility] Alanine Aminotransferase 43(H) 0 - 30 unit/L [facility] Alkaline Phosphatase 116(H) 35 - 105 unit/L [facility] Bilirubin, Total 0.9 0.2 - 1.3 mg/dL [facility] Est Glomerular Filtration Rate 116 >=60 mL/min/1. 73 m?? [facility] Comment: This patient's estimated GFR [...] In Lab Natalee Winn MD CHEMISTRY ORDERABLES [facility] [place] [address] * Phosphorus (03/21/2023 3:46 AM EDT) Phosphorus 3.0 2.5 - 4.5 mg/dL [facility] Blood 03/21/2023 3:46 AM EDT 03/21/2023 4:07 AM EDT Narrative Resulting Agency Comment Spec In Lab Natalee Winn MD CHEMISTRY ORDERABLES [facility] [place] [address] * Magnesium (03/21/2023 3:46 AM EDT) Magnesium 0.81 0.69 - 1.07 mmol/L [facility] Blood 03/21/2023 3:46 AM EDT 03/21/2023 4:07 AM EDT Narrative Resulting Agency Comment Spec In Lab Natalee Winn MD CHEMISTRY ORDERABLES Performing Organization Address [facility]/ZIP Co de Phone Number [facility] [place] [address] * (ABNORMAL) IgG 4 (03/21/2023 3:46 AM EDT) IgG 4 2.7(L) 3.9 - 86.4 mg/dL [facility] Blood 03/21/2023 3:46 AM EDT 03/21/2023 4:07 AM EDT Narrative Resulting Agency Comment Spec In Lab Natalee Winn MD IMMUNOLOGY ORDERABLE S Performing Organization Address [facility] Co de Phone Number [facility] [place] [address] * POCT Glucose (03/21/2023 3:45 AM EDT) Glucose, POC 97 65 - 199 mg/dL [facility] Comment: Supplemental ranges: <140 mg/dL before meals <180 mg/dL all other times of the day Blood 03/21/2023 3:45 AM EDT 03/21/2023 3:45 AM EDT Iram Borrero MD POINT OF CARE TEST O RDERABLES Performing Organization Address [facility] Co de Phone Number [facility] [place] [address] * POCT Glucose (03/21/2023 12:02 AM EDT) Glucose, POC 108 65 - 199 mg/dL [facility] Comment: Supplemental ranges: <140 mg/dL before meals <180 mg/dL all other times of the day Blood 03/21/2023 12:0 2 AM EDT 03/21/2023 12:02 AM EDT Iram Borrero MD POINT OF CARE TEST O MANDY Performing Organization Address [facility] Co de Phone Number [facility] [place] [address] * POCT Glucose (03/20/2023 9:38 PM EDT) Glucose, POC 95 65 - 199 mg/dL [facility] Comment: Supplemental ranges: <140 mg/dL before meals <180 mg/dL all other times of the day Blood 03/20/2023 9:38 PM EDT 03/20/2023 9:38 PM EDT Iram Borrero MD POINT OF CARE TEST Maribel GALVAN Performing Organization Address [facility] Co de Phone Number [facility] [place] [address] * UPPER GI ENDOSCOPY (03/20/2023 10:26 AM EDT) UPPER GI ENDOSCOPY [facility] Procedure Date: 03/20/2023 10:26 AM ? Patient Name: Leandra Wilks ? Date of : 1980 ? Age: 43 ? Order #: [id number] ? Instrument Name: [id number] ? Procedure: ? Upper GI endoscopy Indications: [...] appearing mucosa. This was traversed. The ? [id number]-[id number] limb was characterized by healthy ? appearing [...] GENERAL SURGICAL ORD ERABLES Performing Organization Address City/[facility] Co de Phone Number [facility] * (ABNORMAL) Hepatic Function Panel (03/20/2023 2:32 AM EDT) Protein, Total 5.8(L) 6.1 - 8.0 g/dL [facility] [facility] Albumin 3.4 3.2 - 5.2 g/dL [facility] Aspartate Aminotransferase 42(H) 0 - 30 unit/L [facility] Alanine Aminotransferase 57(H) 0 - 30 unit/L [facility] Alkaline Phosphatase 111(H) 35 - 105 unit/L [facility] Bilirubin, Total 1.0 0.2 - 1.3 mg/dL [facility] Bilirubin, Direct 0.4(H) 0.0 - 0.3 mg/dL [facility] Blood Venous Draw / Unknown 03/20/2023 2:32 AM EDT 03/20/2023 2:56 AM EDT Narrative Resulting Agency Comment Spec In Lab Dick Bower MD CHEMISTRY ORDERABLES Performing Organization Address [facility] Co de Phone Number [facility] [place] [address] * (ABNORMAL) Differential, Automated (03/20/2023 2:32 AM EDT) Neutrophil % 57.4 % [facility] Neutrophil Absolute 3.08 1.70 - 6.10 x10(3)/ L [facility] Lymph % 32.5 % [facility] Lymphocytes Abs 1.7 0.9 - 3.2 x10(3)/mc L [facility] Monocyte % 7.1 % [facility] Monocyte Abs 0.4 0.3 - 0.9 x10(3)/[facility] LABORATORY Eos % 1.3 % [facility] Eosinophils Abs 0.1 0.0 - 0.4 x10(3)/[facility] LABORATORY Basophil % 0.6 % [facility] Baso Absolute 0.0 0.0 - 0.1 x10(3)/ L [facility] Immature Gran % 1.10 % [facility] Comment: Immature granulocytes(IG's)percentage and absolute count will include metamyelocytes, myelocytes, and promyelocytes. Blood smears from CBCs yielding IG's will be scanned manually for concordance. If this scan disagrees with the automated IG or if promyelocytes are noted, a manual differential will be performed. Immature Gran Absolute 0.06(H) 0.00 - 0.04 x10(3)/ L [facility] Blood 03/20/2023 2:32 AM EDT 03/20/2023 2:54 AM EDT Narrative Resulting Agency Comment Spec In Lab Lisandro Araya MD HEMATOLOGY ORDERABLE S [facility] [place] [address] * (ABNORMAL) Hemogram (03/20/2023 2:32 AM EDT) White Blood Cell 5.4 4.0 - 9.5 x10(3)/ L [facility] Red Blood Cell 4.23 4.00 - 5.21 x10(6)/[facility] LABORATORY Hemoglobin 12.1 11.7 - 15.5 g/dL [facility] Hematocrit 35.0(L) 35.7 - 45.8 % [facility] Mean Cell Volume 82.7 82.6 - 94.4 fL [facility] Mean Cell Hemoglobin 28.6 27.1 - 32.0 pg [facility] Mean Cell Hemoglobin Concentration 34.6 31.7 - 35.0 g/dL [facility] Platelet 319 145 - 357 x10(3)/mc L [facility] RDW Standard Deviation 44.6 37.0 - 46.0 fL [facility] RDW coefficient of variation 14.7(H) 11.5 - 14.1 % [facility] Mean Platelet Volume 9.2 7.6 - 12.9 fL [facility] NRBC% auto 0.0 % [facility] NRBC Absolute 0.000 0.000 - 0.000 x10(3)/mc L [facility] Blood 03/20/2023 2:32 AM EDT 03/20/2023 2:54 AM EDT Narrative Resulting Agency Comment Spec In Lab Lisandro Araya MD HEMATOLOGY ORDERABLE S Performing Organization Address City/[facility]/ZIP Co de Phone Number [facility] [place] [address] * Phosphorus (03/20/2023 2:32 AM EDT) Phosphorus 3.6 2.5 - 4.5 mg/dL [facility] Blood 03/20/2023 2:32 AM EDT 03/20/2023 2:53 AM EDT Narrative Resulting Agency Comment Spec In Lab Natalee Winn MD CHEMISTRY ORDERABLES Performing Organization Address City/[facility]/ZIP Co de Phone Number [facility] [place] [address] * Magnesium (03/20/2023 2:32 AM EDT) Magnesium 0.83 0.69 - 1.07 mmol/L [facility] Blood 03/20/2023 2:32 AM EDT 03/20/2023 2:53 AM EDT Narrative Resulting Agency Comment Spec In Lab Natalee Winn MD CHEMISTRY ORDERABLES [facility] [place] [address] * (ABNORMAL) Basic Metabolic Panel (non-fasting) (03/20/2023 2:32 AM EDT) Glucose 122 65 - 199 mg/dL [facility] Comment:Diabetes: >=200 mg/d L plus symptoms Blood Urea Nitrogen 4(L) 8 - 18 mg/dL [facility] Creatinine 0.42(L) 0.70 - 1.20 mg/dL [facility] Sodium 134(L) 135 - 145 mmol/L [facility] Potassium 4.1 3.5 - 5.0 mmol/L [facility] Comment: Please note: ??Patients with WBC >100,000 may have falsely elevated Potassium levels. ??For accurate Potassium quantification in these patients send serum separator tube (gold top) for subsequent determinations. ??Contact the Clinical Chemistry Laboratory if there are any questions. Chloride 97(L) 98 - 107 mmol/L [facility] Carbon Dioxide 26 22 - 31 mmol/L [facility] Anion Gap 11 5 - 15 mmol/L [facility] Calcium 8.1(L) 8.5 - 10.5 mg/dL [facility] Est Glomerular Filtration Rate 123 >=60 mL/min/1. 73 m?? [facility] Comment: This patient's estimated GFR [...] In Lab Iram Borrero MD CHEMISTRY ORDERABLES [facility] [place] [address] * MRI Cholangiopancreatography WO Contrast (03/19/2023 5:40 [...] who have questions please contact the health patient care secretary that requested your imaging first. ? Electronically signed by: Maximo Forrest DO, [facility] ([phone]), at 03/20/2023 7:59 AM Narrative 03/20/2023 7:59 [...] visceral organs, gastrointestinal tract, and vascular structures. Expediter Images: Noncontributory. Inferior thorax: Visualized structures within [...] marrow signal abnormality. Procedure Note Maximo Forrest, DO - 03/20/2023 EXAMINATION: MRI CHOLANGIOPANCREATOGRAPHY WO [...] thevisceral organs, gastrointestinal tract, and vascular structures. Expediter Images: Noncontributory. Inferior thorax: Visualized structures within [...] patients who have questions please contactthe health patient care secretary that requested your imaging first. Iram Borrero MD IMG MRI ORDERABLES * (ABNORMAL) Phosphorus (03/19/2023 3:32 PM EDT) Phosphorus 2.3(L) 2.5 - 4.5 mg/dL [facility] Comment:result rechecked-nb Blood 03/19/2023 3:32 PM EDT 03/19/2023 3:53 PM EDT Narrative Resulting Agency Comment Spec In Lab Iram Borrero MD CHEMISTRY ORDERABLES [facility] [place] [address] * (ABNORMAL) Magnesium (03/19/2023 3:32 PM EDT) Magnesium 0.63(L) 0.69 - 1.07 mmol/L [facility] Blood 03/19/2023 3:32 PM EDT 03/19/2023 3:53 PM EDT Narrative Resulting Agency Comment Spec In Lab Iram Borrero MD CHEMISTRY ORDERABLES [facility] [place] [address] * (ABNORMAL) Basic Metabolic Panel (non-fasting) (03/19/2023 3:32 PM EDT) Glucose 100 65 - 199 mg/dL [facility] Comment:Diabetes: >=200 mg/d L plus symptoms Blood Urea Nitrogen 5(L) 8 - 18 mg/dL [facility] Creatinine 0.40(L) 0.70 - 1.20 mg/dL [facility] Sodium 135 135 - 145 mmol/L [facility] Potassium 4.1 3.5 - 5.0 mmol/L [facility] Comment: Please note: ??Patients with WBC >100,000 may have falsely elevated Potassium levels. ??For accurate Potassium quantification in these patients send serum separator tube (gold top) for subsequent determinations. ??Contact the Clinical Chemistry Laboratory if there are any questions. Chloride 97(L) 98 - 107 mmol/L [facility] Carbon Dioxide 26 22 - 31 mmol/L [facility] Anion Gap 12 5 - 15 mmol/L [facility] Calcium 8.6 8.5 - 10.5 mg/dL [facility] Est Glomerular Filtration Rate 124 >=60 mL/min/1. 73 m?? [facility] Comment: This patient's estimated GFR [...] In Lab Iram Borrero MD CHEMISTRY ORDERABLES [facility] [place] [address] * XR Fluoro Barium Swallow (Double Contrast) [...] who have questions please contact the health patient care secretary that requested your imaging first. ? Narrative [...] patients who have questions please contactthe health patient care secretary that requested your imaging first. Iram Borrero MD IMG FLUORO ORDERABLE S * POCT Glucose (03/19/2023 11:44 AM EDT) [facility] Signature Glucose, POC 93 65 - 199 mg/dL [facility] Comment: Supplemental ranges: <140 mg/dL before meals <180 mg/dL all other times of the day Blood 03/19/2023 11:4 4 AM EDT 03/19/2023 11:44 AM EDT Iram Borrero MD POINT OF CARE TEST O RDERAISIDRO Performing Organization Address City/[facility] Co de Phone Number [facility] [place] [address] * POCT Glucose (03/19/2023 7:42 AM EDT) Glucose, POC 92 65 - 199 mg/dL [facility] Comment: Supplemental ranges: <140 mg/dL before meals <180 mg/dL all other times of the day Blood 03/19/2023 7:42 AM EDT 03/19/2023 7:42 AM EDT Iram Borrero MD POINT OF CARE TEST O MANDY Performing Organization Address [facility] Co de Phone Number [facility] [place] [address] * (ABNORMAL) Differential, Automated (03/19/2023 3:49 AM EDT) Neutrophil % 63.3 % [facility] Neutrophil Absolute 5.94 1.70 - 6.10 x10(3)/mc L [facility] Lymph % 27.2 % [facility] Lymphocytes Abs 2.6 0.9 - 3.2 x10(3)/mc L [facility] Monocyte % 7.2 % [facility] Monocyte Abs 0.7 0.3 - 0.9 x10(3)/mc L [facility] Eos % 1.5 % [facility] Eosinophils Abs 0.1 0.0 - 0.4 x10(3)/mc L [facility] Basophil % 0.3 % [facility] Baso Absolute 0.0 0.0 - 0.1 x10(3)/mc L [facility] Immature Gran % 0.50 % [facility] Comment: Immature granulocytes(IG's)percentage and absolute count will include metamyelocytes, myelocytes, and promyelocytes. Blood smears from CBCs yielding IG's will be scanned manually for concordance. If this scan disagrees with the automated IG or if promyelocytes are noted, a manual differential will be performed. Immature Gran Absolute 0.05(H) 0.00 - 0.04 x10(3)/mc L [facility] Blood 03/19/2023 3:49 AM EDT 03/19/2023 4:00 AM EDT Narrative Resulting Agency Comment Spec In Lab Dick Bower MD HEMATOLOGY ORDERABLE S [facility] [place] [address] * (ABNORMAL) Hemogram (03/19/2023 3:49 AM EDT) White Blood Cell 9.4 4.0 - 9.5 x10(3)/mc L [facility] Red Blood Cell 4.10 4.00 - 5.21 x10(6)/mc L [facility] Hemoglobin 12.0 11.7 - 15.5 g/dL [facility] Hematocrit 32.9(L) 35.7 - 45.8 % [facility] Mean Cell Volume 80.2(L) 82.6 - 94.4 fL [facility] Mean Cell Hemoglobin 29.3 27.1 - 32.0 pg [facility] Mean Cell Hemoglobin Concentration 36.5(H) 31.7 - 35.0 g/dL [facility] Platelet 272 145 - 357 x10(3)/mc L [facility] RDW Standard Deviation 42.3 37.0 - 46.0 fL [facility] RDW coefficient of variation 14.3(H) 11.5 - 14.1 % [facility] Mean Platelet Volume 9.4 7.6 - 12.9 fL [facility] NRBC% auto 0.2 % [facility] NRBC Absolute 0.020(H) 0.000 - 0.000 x10(3)/mc L [facility] Blood 03/19/2023 3:49 AM EDT 03/19/2023 4:00 AM EDT Narrative Resulting Agency Comment Spec In Lab Dick Bower MD HEMATOLOGY ORDERABLE S Performing Organization Address [facility]/ZIP Co de Phone Number [facility] [place] [address] * (ABNORMAL) Phosphorus (03/19/2023 3:49 AM EDT) Phosphorus 1.0(Critic al) 2.5 - 4.5 mg/dL [facility] Comment:called by [facility]/read b ack by joann rouse/ 03-19-23 [id number] Blood 03/19/2023 3:49 AM EDT 03/19/2023 3:59 AM EDT Narrative Resulting Agency Comment Spec In Lab Natalee Winn MD CHEMISTRY ORDERABLES Performing Organization Address [facility] Co de Phone Number [facility] [place] [address] * Magnesium (03/19/2023 3:49 AM EDT) Magnesium 0.69 0.69 - 1.07 mmol/L [facility] Blood 03/19/2023 3:49 AM EDT 03/19/2023 3:59 AM EDT Narrative Resulting Agency Comment Spec In Lab Natalee Winn MD CHEMISTRY ORDERABLES Performing Organization Address [facility] Co de Phone Number [facility] [place] [address] * (ABNORMAL) Basic Metabolic Panel (non-fasting) (03/19/2023 3:49 AM EDT) Glucose 84 65 - 199 mg/dL [facility] Comment:Diabetes: >=200 mg/d L plus symptoms Blood Urea Nitrogen 8 8 - 18 mg/dL [facility] Creatinine 0.41(L) 0.70 - 1.20 mg/dL [facility] Sodium 135 135 - 145 mmol/L [facility] Potassium 3.1(L) 3.5 - 5.0 mmol/L [facility] Comment: Please note: ??Patients with WBC >100,000 may have falsely elevated Potassium levels. ??For accurate Potassium quantification in these patients send serum separator tube (gold top) for subsequent determinations. ??Contact the Clinical Chemistry Laboratory if there are any questions. Chloride 97(L) 98 - 107 mmol/L [facility] Carbon Dioxide 27 22 - 31 mmol/L [facility] Anion Gap 11 5 - 15 mmol/L [facility] Calcium 8.7 8.5 - 10.5 mg/dL [facility] Est Glomerular Filtration Rate 124 >=60 mL/min/1. 73 m?? [facility] Comment: This patient's estimated GFR [...] In Lab Iram Borrero MD CHEMISTRY ORDERABLES [facility] [place] [address] * POCT Glucose (03/19/2023 3:32 AM EDT) Glucose, POC 104 65 - 199 mg/dL [facility] Comment: Supplemental ranges: <140 mg/dL before meals <180 mg/dL all other times of the day Blood 03/19/2023 3:32 AM EDT 03/19/2023 3:32 AM EDT Iram Borrero MD POINT OF CARE TEST O RDERABLES Performing Organization Address City/[facility]/ZIP Co de Phone Number [facility] [place] [address] * POCT Glucose (03/19/2023 2:38 AM EDT) Glucose, POC 91 65 - 199 mg/dL [facility] Comment: Supplemental ranges: <140 mg/dL before meals <180 mg/dL all other times of the day Blood 03/19/2023 2:38 AM EDT 03/19/2023 2:38 AM EDT Iram Borrero MD POINT OF CARE TEST O MANDY Performing Organization Address City/State/[facility] Co de Phone Number [facility] [place] [address] * POCT Glucose (03/19/2023 1:22 AM EDT) Glucose, POC 151 65 - 199 mg/dL [facility] Comment: Supplemental ranges: <140 mg/dL before meals <180 mg/dL all other times of the day Blood 03/19/2023 1:22 AM EDT 03/19/2023 1:22 AM EDT Iram Borrero MD POINT OF CARE TEST O MANDY Performing Organization Address [facility] Co de Phone Number [facility] [place] [address] * POCT Glucose (03/19/2023 12:30 AM EDT) Glucose, POC 140 65 - 199 mg/dL [facility] Comment: Supplemental ranges: <140 mg/dL before meals <180 mg/dL all other times of the day Blood 03/19/2023 12:3 0 AM EDT 03/19/2023 12:30 AM EDT Iram Borrero MD POINT OF CARE TEST O MANDY Performing Organization Address City/[facility] Co de Phone Number [facility] [place] [address] * (ABNORMAL) BLOOD GAS 2 VENOUS (03/18/2023 11:10 PM EDT) pH, Venous 7.55(H) 7.32 - 7.42 [facility] PCO2, Venous 33(L) 41 - 51 mmHg [facility] PO2, Venous 42(H) 25 - 40 mmHg [facility] Bicarbonate, Venous 27.7 mmol/L [facility] Base Excess, Venous 5.3 mmol/L [facility] Hgb Blood Gas Not Perf 11.7 - 15.5 g/dL [facility] Oxyhemoglobin, Venous Not Perf % [facility] Carboxyhemoglob in, Venous Not Perf % [facility] Comment: Nonsmokers: 0.5-1.5% COHB Smokers: Variable, but usually less than 10% Toxic: 20-30% COHB Lethal: Greater than 60% COHB Methemoglobin, Venous Not Perf <=1.5 % [facility] Na Whole Blood 133(L) 135 - 145 mmol/L [facility] K Whole Blood 3.6 3.5 - 5.0 mmol/L [facility] Comment: Please note: Patients with WBC >100,000 may have falsely elevated Potassium levels. Contact the Clinical Chemistry Laboratory if there are any questions. ICa Whole Blood 1.09(L) 1.15 - 1.33 mmol/L [facility] Comment: Note: ??Total bilirubin higher than 20 mg/dL may lead to falsely low ionized calcium. CL Whole Blood 95(L) 98 - 107 mmol/L [facility] Gluc Whole Bld 144 65 - 199 mg/dL [facility] Comment:Diabetes: >=200 mg/d L plus symptoms Lactate WB 1.7 0.5 - 2.2 mmol/L [facility] Blood Gas Source Venous [facility] Blood 03/18/2023 11:1 0 PM EDT 03/18/2023 11:10 PM EDT Iram Borrero MD POINT OF CARE TEST O RDERABLES [facility] [place] [address] * (ABNORMAL) Beta Hydroxybutyrate (03/18/2023 11:08 PM EDT) Beta-hydroxybuturat e 1.33(H) 0.00 - 0.30 mmol/L [facility] Comment: This test has not been cleared by the [place] FDA. Performance characteristics of this test were determined by [facility] in accordance with CLIA requirements. This laboratory is qualified under CLIA to perform high-complexity testing. Blood 03/18/2023 11:0 8 PM EDT 03/18/2023 11:14 PM EDT Narrative Resulting Agency Comment Spec In Lab Iram Borrero MD CHEMISTRY ORDERABLES [facility] [place] [address] * (ABNORMAL) Basic Metabolic Panel (non-fasting) (03/18/2023 11:08 PM EDT) Glucose 144 65 - 199 mg/dL [facility] Comment:Diabetes: >=200 mg/d L plus symptoms Blood Urea Nitrogen 11 8 - 18 mg/dL [facility] Creatinine 0.40(L) 0.70 - 1.20 mg/dL [facility] Sodium 134(L) 135 - 145 mmol/L [facility] Potassium 3.3(L) 3.5 - 5.0 mmol/L [facility] Comment: Please note: ??Patients with WBC >100,000 may have falsely elevated Potassium levels. ??For accurate Potassium quantification in these patients send serum separator tube (gold top) for subsequent determinations. ??Contact the Clinical Chemistry Laboratory if there are any questions. Chloride 95(L) 98 - 107 mmol/L [facility] Carbon Dioxide 26 22 - 31 mmol/L [facility] Anion Gap 13 5 - 15 mmol/L [facility] Calcium 8.6 8.5 - 10.5 mg/dL [facility] Comment:reult rechecked-KS Est Glomerular Filtration Rate 124 >=60 mL/min/1. 73 m?? [facility] Comment: This patient's estimated GFR [...] Borrero MD CHEMISTRY ORDERABLES Performing Organization Address City/[facility] Co de Phone Number [facility] [place] [address] * POCT Glucose (03/18/2023 10:50 PM EDT) Glucose, POC 134 65 - 199 mg/dL [facility] Comment: Supplemental ranges: <140 mg/dL before meals <180 mg/dL all other times of the day Blood 03/18/2023 10:5 0 PM EDT 03/18/2023 10:50 PM EDT Iram Borrero MD POINT OF CARE TEST O RDERABLES Performing Organization Address [facility] Co de Phone Number [facility] [place] [address] * EKG 12 Lead (03/18/2023 9:35 PM EDT) Ventricular rate 95 BPM MUSE SYSTEM Atrial Rate 95 BPM MUSE SYSTEM P-R Interval 140 ms MUSE SYSTEM QRS Duration 90 ms MUSE SYSTEM Q-T Interval 426 ms MUSE SYSTEM QTC Calculated (Bezet) 535 ms MUSE SYSTEM Calculated P [place] 25 degrees MUSE SYSTEM Calculated R [place] 0 degrees MUSE SYSTEM Calculated T [place] -86 degrees MUSE SYSTEM INTERPRETATION Normal sinus rhythm Left ventricular hypertrophy with repolarization abnormality ( R in aVL ) Abnormal ECG When compared with ECG of 18-MAR-2023 20:24, (unconfirmed) No significant change was found Confirmed by MD Babita, Andres ([id number]) on 03/19/2023 2:23:56 PM MUSE SYSTEM 03/18/2023 9:35 PM EDT 03/19/2023 2:23 PM EDT Iram Borrero MD ECG ORDERABLES Performing Organization Address City/[facility]/ZIP Co de Phone Number MUSE SYSTEM * EKG 12 Lead (03/18/2023 8:24 PM EDT) Ventricular rate 91 BPM MUSE SYSTEM Atrial Rate 91 BPM MUSE SYSTEM P-R Interval 144 ms MUSE SYSTEM QRS Duration 94 ms MUSE SYSTEM Q-T Interval 430 ms MUSE SYSTEM QTC Calculated (Bezet) 528 ms MUSE SYSTEM Calculated P [place] 27 degrees MUSE SYSTEM Calculated R [place] 2 degrees MUSE SYSTEM Calculated T [place] -60 degrees MUSE SYSTEM INTERPRETATION Normal sinus rhythm Left ventricular hypertrophy with repolarization abnormality ( R in aVL , [place] product ) Prolonged QT Abnormal ECG When compared with ECG of 05-NOV-2007 13:07, T wave inversion more evident in Inferior leads T wave inversion now evident in Anterolateral leads QT has lengthened Confirmed by MD Babita, Andres ([id number]) on 03/19/2023 2:23:40 PM MUSE SYSTEM 03/18/2023 8:24 PM EDT 03/19/2023 2:23 PM EDT Salvador Blum MD ECG ORDERABLES Performing Organization Address [facility]/ZIP Co de Phone Number MUSE SYSTEM * Lactate, whole blood, [place] [place] [place] (03/18/2023 5:01 PM EDT) Pathologist [facility] Lactate WB 1.6 0.5 - 2.2 mmol/L [facility] Blood 03/18/2023 5:01 PM EDT 03/18/2023 5:10 PM EDT Narrative Resulting Agency Comment Spec In Lab Pito Mclaughlin MD CHEMISTRY ORDERABL ES [facility] [place] [address] * (ABNORMAL) Beta Hydroxybutyrate (03/18/2023 5:01 PM EDT) Pathologist [facility] Beta-hydroxybuturat e 3.29(H) 0.00 - 0.30 mmol/L [facility] Comment: This test has not been cleared by the [place] FDA. Performance characteristics of this test were determined by [facility] in accordance with CLIA requirements. This laboratory is qualified under CLIA to perform high-complexity testing. Blood 03/18/2023 5:01 PM EDT 03/18/2023 5:11 PM EDT Narrative Resulting Agency Comment Spec In Lab Pito Mclaughlin MD CHEMISTRY ORDERABL ES [facility] [place] [address] * (ABNORMAL) Differential, Automated (03/18/2023 3:49 PM EDT) Neutrophil % 78.5 % [facility] Neutrophil Absolute 7.98(H) 1.70 - 6.10 x10(3)/mc L [facility] Lymph % 15.0 % [facility] Lymphocytes Abs 1.5 0.9 - 3.2 x10(3)/mc L [facility] Monocyte % 5.3 % [facility] Monocyte Abs 0.5 0.3 - 0.9 x10(3)/mc L [facility] Eos % 0.2 % [facility] Eosinophils Abs 0.0 0.0 - 0.4 x10(3)/mc L [facility] Basophil % 0.3 % [facility] Baso Absolute 0.0 0.0 - 0.1 x10(3)/mc L [facility] Immature Gran % 0.70 % [facility] Comment: Immature granulocytes(IG's)percentage and absolute count will include metamyelocytes, myelocytes, and promyelocytes. Blood smears from CBCs yielding IG's will be scanned manually for concordance. If this scan disagrees with the automated IG or if promyelocytes are noted, a manual differential will be performed. Immature Gran Absolute 0.07(H) 0.00 - 0.04 x10(3)/mc L [facility] Blood 03/18/2023 3:49 PM EDT 03/18/2023 4:03 PM EDT Narrative Resulting Agency Comment Spec In Lab Ivan GAINES HEMATOLOGY ORDERABLE S [facility] [place] [address] * (ABNORMAL) Hemogram (03/18/2023 3:49 PM EDT) White Blood Cell 10.2(H) 4.0 - 9.5 x10(3)/mc L [facility] Red Blood Cell 4.99 4.00 - 5.21 x10(6)/mc L [facility] Hemoglobin 14.4 11.7 - 15.5 g/dL [facility] Hematocrit 40.5 35.7 - 45.8 % [facility] Mean Cell Volume 81.2(L) 82.6 - 94.4 fL [facility] Mean Cell Hemoglobin 28.9 27.1 - 32.0 pg [facility] Mean Cell Hemoglobin Concentration 35.6(H) 31.7 - 35.0 g/dL [facility] Platelet 350 145 - 357 x10(3)/mc L [facility] RDW Standard Deviation 42.1 37.0 - 46.0 fL [facility] RDW coefficient of variation 14.4(H) 11.5 - 14.1 % [facility] Mean Platelet Volume 9.1 7.6 - 12.9 fL [facility] NRBC% auto 0.0 % [facility] NRBC Absolute 0.000 0.000 - 0.000 x10(3)/ L [facility] Blood 03/18/2023 3:49 PM EDT 03/18/2023 4:03 PM EDT Narrative Resulting Agency Comment Spec In Lab Ivan GAINES HEMATOLOGY ORDERABLE S Performing Organization Address City/[facility]/ZIP Co de Phone Number [facility] [place] [address] * Prealbumin (03/18/2023 3:49 PM EDT) Prealbumin 21 20 - 40 mg/dL [facility] Comment: Prealbumin levels are generally lower in the pediatric population; adult concentrations are usually attained near puberty. Blood 03/18/2023 3:49 PM EDT 03/18/2023 4:03 PM EDT Narrative Resulting Agency Comment Spec In Lab Pito Mclaughlin MD CHEMISTRY ORDERABL ES Performing Organization Address [facility] Co de Phone Number [facility] [place] [address] * (ABNORMAL) Lipase (03/18/2023 3:49 PM EDT) Lipase 156(H) 0 - 60 unit/L [facility] Blood 03/18/2023 3:49 PM EDT 03/18/2023 4:03 PM EDT Narrative Resulting Agency Comment Spec In Lab Pito Mclaughlin MD CHEMISTRY ORDERABL ES Performing Organization Address [facility] Phone Number [facility] [place] [address] * (ABNORMAL) Hepatic Function Panel (03/18/2023 3:49 PM EDT) Protein, Total 7.6 6.1 - 8.0 g/dL [facility] Albumin 4.4 3.2 - 5.2 g/dL [facility] Aspartate Aminotransferase 74(H) 0 - 30 unit/L [facility] Alanine Aminotransferase 87(H) 0 - 30 unit/L [facility] Alkaline Phosphatase 152(H) 35 - 105 unit/L [facility] Bilirubin, Total 1.4(H) 0.2 - 1.3 mg/dL [facility] Bilirubin, Direct 0.6(H) 0.0 - 0.3 mg/dL [facility] Blood 03/18/2023 3:49 PM EDT 03/18/2023 4:03 PM EDT Narrative Resulting Agency Comment Spec In Lab Pito Mclaughlin MD CHEMISTRY ORDERABL ES Performing Organization Address [facility] de Phone Number [facility] [place] [address] * (ABNORMAL) Basic Metabolic Panel (non-fasting) (03/18/2023 3:49 PM EDT) Glucose 113 65 - 199 mg/dL [facility] Comment:Diabetes: >=200 mg/d L plus symptoms Blood Urea Nitrogen 14 8 - 18 mg/dL [facility] Creatinine 0.47(L) 0.70 - 1.20 mg/dL [facility] Sodium 138 135 - 145 mmol/L [facility] Potassium 3.0(Criti royal) 3.5 - 5.0 mmol/L [facility] Comment: Result called by ANGELA and read back by Anjum Burroughs at 03/18/2023 3417 Please note: ??Patients with WBC >100,000 may have falsely elevated Potassium levels. ??For accurate Potassium quantification in these patients send serum separator tube (gold top) for subsequent determinations. ??Contact the Clinical Chemistry Laboratory if there are any questions. Chloride 92(L) 98 - 107 mmol/L [facility] Carbon Dioxide 28 22 - 31 mmol/L [facility] Anion Gap 18(H) 5 - 15 mmol/L [facility] Calcium 9.7 8.5 - 10.5 mg/dL [facility] Est Glomerular Filtration Rate 120 >=60 mL/min/1. 73 m?? [facility] Comment: This patient's estimated GFR [...] Lab Pito Mclaughlin MD CHEMISTRY ORDERABL ES [facility] [place] [address] * (ABNORMAL) Urine culture (03/18/2023 1:52 PM EDT) Urine Culture Greater than 100,000 cfu/ml Escherichia coli(A) [facility] Organism Escherichia coli(A) [facility] Clean Catch Urine 03/18/2023 1:52 [...] - GENER AL ORDERABLES Performing Organization Address City/State/[facility] Co de Phone Number [facility] [place] [address] * (ABNORMAL) Urinalysis Microscopic Exam (03/18/2023 1:52 PM EDT) RBC, Urine 15(H) 0 - 4 /HPF [facility] WBC, Urine 13(H) 0 - 5 /HPF [facility] Bacteria, Urine Many(A) None /HPF [facility] Squamous Epithelial Cells Raw Data, Urine >36(H) <=4 /HPF [facility] Clean Catch Urine 03/18/2023 1:52 PM EDT 03/19/2023 8:39 AM EDT Narrative Resulting Agency Comment Spec In Lab Ivan GAINES URINE ORDERABLES Performing Organization Address City/[facility]/ZIP Co de Phone Number [facility] [place] [address] * (ABNORMAL) Urinalysis with reflex Culture (03/18/2023 1:52 PM EDT) Glucose, Urine Dipstick Negative Negative mg/dL [facility] Protein, Urine Dipstick 100(A) Negative mg/dL [facility] Bilirubin, Urine Dipstick Large(A) Negative mg/dL [facility] Comment: Clinical correlation required for positive Urine Bilirubin results as false positive may occur with some drugs and drug related products. If a false positive is suspected a serum total bilirubin should be considered if clinically indicated. Urobilinogen, Urine Dipstick Normal Normal mg/dL [facility] pH, Urn (dipstick) 7.0 5.0 - 8.0 [facility] Blood, Urine Dipstick Negative Negative mg/dL [facility] Ketone, Urine Dipstick >=80(Critica l) Negative mg/dL [facility] Comment: Urinalysis result NOT critical without a combination of Glucose greater than or equal to 500 mg/dL AND Ketones greater than or equal to 80 mg/dL Nitrite, Urine Dipstick Positive(A) Negative [facility] Leukocytes, Urine Dipstick Small(A) Negative mcL [facility] Appearance, Urine Dipstick Turbid(A) Clear [facility] Specific [place] Urine Automated 1.027 1.005 - 1.030 [facility] Color, Urine Dipstick Pitt(A) Yellow [facility] Reflex to Culture Yes [facility] Clean Catch Urine 03/18/2023 1:52 PM EDT 03/18/2023 1:52 PM EDT Narrative Resulting Agency Comment Spec In Lab Pito Mclaughlin MD URINE ORDERABLES Performing Organization Address City/[facility]/ZIP Co de Phone Number [facility] [place] [address] * Film Library- Storage Only CT Abdomen & Pelvis (03/13/2023 12:00 AM EDT) Narrative Dicom, Auditing User - 03/18/2023 8:00 PM EDT This exam is auto-finalizing. It's purpose is for storage only. Iram Borrero MD [facility] FILM LIBRARY ORD ERABLES * Film Library- Storage Only Ultrasound Study (02/25/2023 12:00 AM EDT) Narrative Dicom, Auditing User - 03/18/2023 7:58 PM EDT This exam is auto-finalizing. It's purpose is for storage only. Iram Borrero MD [facility] FILM LIBRARY ORD ERABLES [...] EVERY 8 HOURS SCHEDULED, First dose on 03/25/23 at 1715, Until Discontinued, Routine 0629 (Given - Provider: Jayshree Cerna RN)1348 (Given - Provider: Trinidad Chaves RN)2113 (Given - Provider: Jessica Nguyễn RN) 0628 (Given - Provider: Jessica Nguyễn, MIKE)154 (Given [...] RN)2113 (Given - Provider: Jessica Nguyễn RN) 09 (Given - Provider: Elva Ronquillo LPN)214 (Given [...] Pittman RN)1731 (Given - Provider: Trinidad Chaves RN)180 (Given - Provider: Maria L Jimenes LPN)2113 (Given - Provider: Jessica Nguyễn RN) 0627 [...] PRN, Starting on Sat03/19/23 at 1155, Until 5/12/23 at 1536, Nausea, 2nd line therapy, Doses [...] Routine documented in this encounter Care Teams Field Coil Winder Relationship Specialty Start Date End Date Sree High, BRYANNA [address] [place] [address] PCP - General Family Medicine 12/19/22 documented as of this encounter
--- OUTSIDE RECORDS SUMMARY | 2024-09-02 16:14 | XMS_ITS | Encounter Summary ---
Author Organization [facility] [place] [address] Care Team Providers Care Middle School Librarian Name Role Phone Sree High APRN Primary Care Provider +1- [phone] Reason for Visit * Auth/Cert (Routine) Specialty Diagnoses / Procedures Referred By Chela t Referred To Contact Diagnoses Abdominal pain Procedures ER Iram Wright MD [facility] [place] [address] [facility] Referral ID Status Reason Start Date Expiration Date Visits Re quested Visits Authorized [id number] 1 1 Encounter Details Date Type Department Care Team (Late st Contact Info) Description 03/20/2023 11:51 AM EDT Anesthesia Event [place] [address] Jose Shay MD [facility] [place] [address] Anesthesia Record Procedure Summary Procedure Name Responsible [...] basilic vein (medial side of arm), right; [id number]-qus-lqicbe catheter system; 20 gauge; 03/25/23; 1754 03/18/23 1556 by Stacey Ramos RN 03/25/23 1754 by Raul Muhammad, MIKE (RETIRED) Peripheral IV Line - Single Lumen 03/19/23; 1536; cephalic vein (lateral side of arm), left; jimd-[id number]-[id number] catheter system; Ultrasound Guidance; Yes - US [...] Procedure Summary Date: 03/20/23 Room / Location: [facility] ENDO 3 / [facility] ENDOSCOPY Anesthesia Start: 1151 Anesthesia Stop: 1218 Procedure: EGD, UPPER GI ENDOSCOPY (WRVU 2.09) (Trunk) Diagnosis: (dysphagia) Surgeons: Gerber Salomon MD Responsible Provider: Jose Shay MD Anesthesia Type: MAC ASA Status: 3 All Anesthesia Providers: Anesthesiologist: Jose Shay MD CALL TAKER: Alma Delia Vizcarra CRNA Vitals Value Taken Time BP 117/91 03/20/23 1250 Temp Pulse Resp 16 03/20/23 1235 SpO2 95 % 03/20/23 1250 Pain Level 0 03/20/23 1235 [facility] Level of Consciousness: Awake and Alert [...] 29.4) performed by Iram Borrero MD[facility] ??? PRO UPPER GI ENDOSCOPY, DIAGNOSTIC N/A 01/10/2023 EGD, UPPER GI ENDOSCOPY performed by Iram Borrero MD at [facility] MAIN OR ??? PRO UPPER GI ENDOSCOPY, DIAGNOSTIC N/A 03/05/2023 EGD, UPPER GI ENDOSCOPY (WRVU 2.09) performed by Iram Borrero MD at [facility] MAIN OR Social History Tobacco Use ??? [...] risks discussed with patient. Plan discussed with CALL TAKER. Anesthesia Screening documented in this encounter Plan [...] Lifestyle On track(2021 10:28 AM EST) Jill Colmeanres APRN Note: Mindfulness/deep breathing practice to reduce cortisol -try for at least 10 minutes a day -try an ap such as headspace I have referred you to our psychologist to work on eating behaviors Health Crab Butcher is sending hand-outs with exercises for mindful [...] mg documented in this encounter Care Teams Middle School Librarian Relationship Specialty Start Date End Date Sree High, MYSTERY SHOPPER [address] [place] [address] PCP - General Family Medicine 12/19/22 documented as of this encounter
--- OUTSIDE RECORDS SUMMARY | 2024-09-02 16:15 | XMS_ITS | Encounter Summary ---
Author Organization [facility] Address [facility] [place] [address] Care Team Providers Care Forensic Science Examiner Name Role Phone Sree High APRN Primary Care Provider +1- [phone] Encounter Details Date Type Department Care Team (Late st Contact Info) Description 03/12/2023 Telephone [place] [address] Anni Varela APRN [facility] [place] [place] [address] Social History Tobacco Use Types Packs/Day Years [...] psychologist to work on eating behaviors Health Validation Analyst is sending hand-outs with exercises for [...] on filedocumented in this encounter Care Teams Forensic Science Examiner Relationship Specialty Start Date End Date Sree High APRN [address] [place] [address] PCP - General Family Medicine 12/19/22 documented as of this encounter
--- OUTSIDE RECORDS SUMMARY | 2024-09-02 16:15 | XMS_ITS | Encounter Summary ---
Author Organization [facility] Address [facility] [place] [address] Care Team Providers Care Safety And Security Manager Name Role Phone Sree High APRN Primary Care Provider +1- [phone] Encounter Details Date Type Department Care Team (Late st Contact Info) Description 03/12/2023 Orders [place] [address] Iram Borrero MD [facility] [place] [address] Hyperbilirubinemia Social History Tobacco Use Types Packs/Day [...] On track(2021 10:28 AM EST) Jill Colmenares, LEAD PYTHON DEVELOPER Note: Mindfulness/deep breathing practice to reduce cortisol -try for at least 10 minutes a day -try an ap such as headspace I have referred you to our psychologist to work on eating behaviors Health Clip Riveter is sending hand-outs with exercises for mindful eating, The Pause/STOP and Urge surfing. Patient will review and try implementing some behaviors before we meet again. movement Lifestyle On track(2021 10:29 AM EST) Jill Colmenares, LEAD PYTHON DEVELOPER Note: Exercise goal is 150 min [...] of documented in this encounter Care Teams Safety And Security Manager Relationship Specialty Start Date End Date Sree High, LEAD PYTHON DEVELOPER [address] [place] [address] PCP - General Family Medicine 12/19/22 documented as of this encounter
--- OUTSIDE RECORDS SUMMARY | 2024-09-02 16:15 | XMS_ITS | Encounter Summary ---
Author Organization [facility] Address [facility] [place] [address] Care Team Providers Care Florist'S Decorator Name Role Phone Sree High APRN Primary Care Provider +1- [phone] Encounter Details Date Type Department Care Team [...] On track(2021 10:28 AM EST) Jill Colmenares, [employer] FLATBED TRUCK DRIVER Note: Mindfulness/deep breathing practice to reduce cortisol -try for at least 10 minutes a day -try an ap such as headspace I have referred you to our psychologist to work on eating behaviors Health Manager Trade is sending hand-outs with exercises for mindful eating, The Pause/STOP and Urge surfing. Patient will review and try implementing some behaviors before we meet again. movement Lifestyle On track(2021 10:29 AM EST) Jill Colmenares, [employer] FLATBED TRUCK DRIVER Note: Exercise goal is 150 min a [...] on filedocumented in this encounter Care Teams Florist'S Decorator Relationship Specialty Start Date End Date Sree High, [employer] FLATBED TRUCK DRIVER [address] [place] [address] [address] [facility] [address] [place] [address] PCP - General Family Medicine 12/19/22 documented as of this encounter
--- OUTSIDE RECORDS SUMMARY | 2024-09-02 16:15 | XMS_ITS | Encounter Summary ---
Author Organization [facility] Address [facility] [place] [address] Care Team Providers Care Controlled Atmospheric Furnace Brazer Name Role Phone Sree High APRN Primary Care Provider +1- [phone] Encounter Details Date Type Department Care Team (Late st Contact Info) Description 03/13/2023 Ancillary Procedure Radiology Library at [facility] [place] [place] [id number] Social History Tobacco Use Types Packs/Day Years [...] On track(2021 10:28 AM EST) Jill Colmenares, FLUTE TEACHER Note: Mindfulness/deep breathing practice to reduce cortisol -try for at least 10 minutes a day -try an ap such as headspace I have referred you to our psychologist to work on eating behaviors Health Clay Pigeon Setter is sending hand-outs with exercises for mindful eating, The Pause/STOP and Urge surfing. Patient will review and try implementing some behaviors before we meet again. movement Lifestyle On track(2021 10:29 AM EST) Jill Colmenares, FLUTE TEACHER Note: Exercise goal is 150 min [...] on filedocumented in this encounter Care Teams Controlled Atmospheric Furnace Brazer Relationship Specialty Start Date End Date Sree High, FLUTE TEACHER [address] [place] [address] PCP - General Family Medicine 12/19/22 documented as of this encounter
--- OUTSIDE RECORDS SUMMARY | 2024-09-02 16:15 | XMS_ITS | Encounter Summary ---
Author Organization [facility] Address [facility] [place] [address] Care Team Providers Care Log Chain Feeder Name Role Phone Sree High APRN Primary Care Provider +1- [phone] Encounter Details Date Type Department Care Team (Late st Contact Info) Description 03/15/2023 Orders [place] [address] [facility] [place] [address] Post-operative nausea and vomiting; Status post gastric [...] psychologist to work on eating behaviors Health Security Tester is sending hand-outs with exercises for mindful [...] EDT) Folate 10.6 4.8 - 24.2 ng/mL [facility] Blood 08/30/2023 3:36 PM EDT 08/30/2023 3:49 PM EDT Narrative Resulting Agency Comment Spec In Lab Iram Borrero MD CHEMISTRY ORDERABLES [facility] [place] [address] * (ABNORMAL) Iron and TIBC (08/30/2023 3:36 PM EDT) Iron 52 30 - 150 mcg/dL [facility] TIBC 270 250 - 450 mcg/dL [facility] Iron Saturation 19(L) 20 - 50 % [facility] Blood 08/30/2023 3:36 PM EDT 08/30/2023 3:49 PM EDT Narrative Resulting Agency Comment Spec In Lab Iram Borrero MD CHEMISTRY ORDERABLES [facility] [place] [address] * PTH (08/30/2023 3:36 PM EDT) Parathyroid Hormone 46 15 - 65 pg/mL [facility] Blood 08/30/2023 3:36 PM EDT 08/30/2023 3:49 PM EDT Narrative Resulting Agency Comment Spec In Lab Iram Borrero MD CHEMISTRY ORDERABLES Performing Organization Address City/[facility]/ZIP Co de Phone Number [facility] [place] [address] * Vitamin D, 25-Hydroxy (08/30/2023 3:36 PM EDT) Vitamin D Total 25 OH 36 21 - 100 ng/mL [facility] Vit D Interp Sufficient [facility] Blood 08/30/2023 3:36 PM EDT 08/30/2023 3:49 PM EDT Narrative Resulting Agency Comment Spec In Lab Iram Borrero MD CHEMISTRY ORDERABLES Performing Organization Address [facility] Co de Phone Number [facility] [place] [address] * Vitamin B12 (08/30/2023 3:36 PM EDT) Vitamin B12 538 232 - 1,245 pg/mL [facility] Blood 08/30/2023 3:36 PM EDT 08/30/2023 3:49 PM EDT Narrative Resulting Agency Comment Spec In Lab Iram Borrero MD CHEMISTRY ORDERABLES Performing Organization Address [facility] Co de Phone Number [facility] [place] [address] * (ABNORMAL) Prealbumin (08/30/2023 3:36 PM EDT) Prealbumin 17(L) 20 - 40 mg/dL [facility] Comment: Prealbumin levels are generally lower in the pediatric population; adult concentrations are usually attained near puberty. Blood 08/30/2023 3:36 PM EDT 08/30/2023 3:49 PM EDT Narrative Resulting Agency Comment Spec In Lab Iram Borrero MD CHEMISTRY ORDERABLES Performing Organization Address City/[facility]/[place] [address] documented in this encounter Visit Diagnoses Diagnosis Post-operative nausea and vomiting Nausea with vomiting Status post gastric bypass for obesity Bariatric surgery status documented in this encounter Care Teams Log Chain Feeder Relationship Specialty Start Date End Date Sree High APRN [address] [place] [address] PCP - General Family Medicine 12/19/22 documented as of this encounter
--- OUTSIDE RECORDS SUMMARY | 2024-09-02 16:15 | XMS_ITS | Encounter Summary ---
Author Organization [facility] [place] [address] Care Team Providers Care Coding Analyst Name Role Phone Sree High APRN Primary Care Provider +1- [phone] Encounter Details Date Type Department Care Team (Late st Contact Info) Description 03/13/2023 Orders [place] [address] Azar Robles APRN [facility] [place] [address] S/P gastric bypass; Disorder of iron metabolism; [...] to work on eating behaviors Health Drywall Hanger is sending hand-outs with exercises for mindful [...] location documented in this encounter Care Teams Coding Analyst Relationship Specialty Start Date End Date Sree High APRN [address] [place] [address] PCP - General Family Medicine 12/19/22 documented as of this encounter
--- OUTSIDE RECORDS SUMMARY | 2024-09-02 16:15 | XMS_ITS | Encounter Summary ---
Author Organization [facility] Address [facility] [place] [address] Care Team Providers Care Data Programmer Name Role Phone Sree High APRN Primary Care Provider [phone] Encounter Details Date Type Department Care Team (Late st Contact Info) Description 03/18/2023 Notes [place] [address] Anni Varela APRN [facility] [place] [address] Social History Tobacco Use Types Packs/Day Years Used Date Smoking Tobacco: Never Smokeless Tobacco: Never Alcohol Use Standard Drinks/Week Comments Not Currently 0 (1 standard drink = 0.6 oz pur e alcohol) FORMERLY [facility], 1928–1983 Inpatient Questions Answer Date Recorded Does Anyone [...] Patient is in PCP's office [facility] [facility]. Patient is tachycardic and reporting continued [...] psychologist to work on eating behaviors Health Care Information Associate is sending hand-outs with exercises for [...] filedocumented in this encounter Care Teams Data Programmer Relationship Specialty Start Date End Date Sree High APRN [address] [place] [address] PCP - General Family Medicine 12/19/22 documented as of this encounter
--- OUTSIDE RECORDS SUMMARY | 2024-09-02 16:15 | XMS_ITS | Encounter Summary ---
Author Organization [facility] [place] [address] Care Team Providers Care Muskrat Trapper Name Role Phone Sree High APRN Primary Care Provider [phone]- [phone] Reason for Visit * Reason Comments Emesis Dehydration * Auth/Cert (Routine) Specialty Diagnoses / Procedures Referred By Chela t Referred To Contact Diagnoses Abdominal pain Procedures ER Iram Wright MD [facility] [place] [address] [facility] Referral ID Status Reason Start Date Expiration Date Visits Re quested Visits Authorized [id number] 1 1 Encounter Details Date Type Department Care Team ([facility] Contact Info) Description 03/20/2023 11:30 AM EDT - 03/20/2023 12:00 PM EDT [place] [address] Gerber Salomon MD [facility] [place] [address] EGD, UPPER GI ENDOSCOPY (WRVU 2.09) Social History Tobacco Use Types Packs/Day Years Used Date Smoking Tobacco: Never Smokeless Tobacco: Never Alcohol Use Standard Drinks/Week Comments Not Currently 0 (1 standard drink = 0.6 oz pur e alcohol) [facility]LY [facility] Inpatient Questions Answer Date Recorded Does [...] with possibility of toxicity causing symptoms. Clinical instructor dancing was consulted who recommended completely stopping Lamictal. [...] who have questions please contact the health palliative care coordinator that requested your imagingfirst. Electronically signed by: Erlin Castorena DO [facility] ([phone]), at 03/21/2023 12:49 PM MRI Brain wwo Contrast (Generic) Result Date: 03/24/2023 EXAMINATION: MRI BRAIN WWO CONTRAST (GENERIC), MRI ORBIT WWO CONTRAST CLINICAL HISTORY: Dizziness, non-specific dizziness, diplopia, rule out stroke? (accession [id number]), right eye weakness, diplopia, concern for possible inferior rectus infiltration or inflamation vs. possible optic neuritis (acce ssion [id number]). Right-sided weakness, diplopia, concerning for possible inferior [...] who have questions please contact the health palliative care coordinator that requested your imaging first. Cholangiopancreatography WO [...] visceral organs, gastrointestinal tract, and vascular structures. Flight Attendant/Inflight Supervisor Images: Noncontributory. Inferior thorax: Visualized structures within [...] who have questions please contact the health palliative care coordinator that requested your imaging first. Electronically signed by: Maximo Forrest DO, [facility] ([phone]), at 03/20/2023 7:59 AM Film Library- Storage [...] non-specific dizziness, diplopia, rule out stroke? (accession [id number]), right eye weakness, diplopia, concern for possible inferior rectus infiltration or inflamation vs. possible optic neuritis (acce ssion [id number]). Right-sided weakness, diplopia, concerning for possible inferior [...] who have questions please contact the health palliative care coordinator that requested your imaging first. DOC: TELEMETRY [...] who have questions please contact the health palliative care coordinator that requested your imaging first. Electronically signed by: Poppy Webster MD, [facility] ([phone]), at 03/19/2023 1:29 PM DH OR Endoscopy [...] Loli Valerio, PhD Weight and Wellness at [facility] Arrive at: Home [phone] To view instructions for your video visit, click here, or visit this website: [email or web address] If you have not previously downloaded the [email or web address] patient portal software, KickApps, or the Innovega marco a, please do so by clicking [...] RD; Anni Varela APRN General Surgery at [facility] Arrive at: [place] [address]L [phone] Future Orders Complete By Expires Referral to [...] home with her at all times. Called in [place], [place], where she lives. There is vestibular [...] Instructions ??? You have a referral to [facility] Ear, Nose and Throat clinic for further evaluation of dizziness. They will call you to scheduled an appointment. ??? A referral has been faxed to in [facility] for vestibular physical therapy. If you do not hear from them in one week, please call the hospital to follow up on that referral. o Their phone number is . Call Doctor for: ??? Persistent nausea or vomiting ??? Any fevers greater than 101.3 F For questions or concerns during business hours please call the Surgery Clinic at [phone] before 5 PM on weekdays. For questions after hours and on weekends please call the hospital geophysical operator at [phone] and ask for the General Surgery resident accounting manager assistant controller. They may not be familiar with your [...] try a Dulcolax suppository. Follow-up: Please call [phone] (clinic number for appointments) to confirm or change the date and time of your appointment. Future Appointments Date Time Provider Department Center 04/02/2023 9:00 AM Loli Valerio, PhD [facility] WEIGHT [facility] 04/26/2023 2:00 PM Anni Varela APRN [facility] SURG [facility] General Instructions None Future Appointments and Orders Future Appointments and Orders Future Appointments Provider Department Dept Phone 04/02/2023 9:00 AM Loli Valerio, PhD Weight and Wellness at [facility] Arrive at: Home [phone] To view instructions for your video visit, click here, or visit this website: [email or web address] If you have not previously downloaded the DHypereight patient portal software, KickApps, or the Innovega marco a, please do so by clicking [...] CHANG; Anni Varela APRN General Surgery at [facility] Arrive at: [place] [phone] Future Orders Complete By Expires Referral to [...] home with her at all times. Called in [place], [place], where she lives. There is vestibular [...] Surgery Fellow, PGY-6 03/29/23 12:24 PM MISpager [phone] Primary [place] Physician: Sree High, RELIEF DRILLER [address] [address] documented in this encounter Discharge Instructions * Patient Instructions* Joan Solorzano PA - 03/29/2023 8:17 AM EDT Discharge Instructions You have a referral to [facility] Ear, Nose and Throat clinic for further evaluation of dizziness. They will call you to scheduled an appointment. A referral has been faxed to in [facility] for vestibular physical therapy.If you do not hear from them in one week, please call the hospital to follow up on that referral. Their phone number is . Call Doctor for: Persistent nausea or vomiting Any fevers greater than 101.3 F For questions or concerns during business hours please call the Surgery Clinic at [phone] before 5 PM on weekdays. For questions after hours and on weekends please call the hospital geophysical operator at [phone] and ask for the General Surgery resident accounting manager assistant controller. They may not be familiar with your [...] try a Dulcolax suppository. Follow-up: Please call [phone] (clinic number for appointments) to confirm or change the date and time of your appointment. Future Appointments Date Time Provider Department Center 04/02/2023 9:00 AM Loli Valerio, PhD [facility] WEIGHT [facility] 04/26/2023 2:00 PM Anni Varela APRN [facility] SURG [facility] documented in this encounter Medications at Time [...] discharged to home. IV removed, site benign. cultural anthropology professor remains unchanged from previous assessment. Pt management discussed, pain tolerable. Pt has all belongings and supplies needed. Pt received After Visit Summary and prescriptions, reviewed and patient verbalizes understanding of AVS. All q uestions answered. Pt encouraged to call with questions or concerns. Pt dc'ed to home with family. Pt expressed thanks for care received by this technical report writer and [facility] staff during hospitalization. * Cl Goodman RN - 03/29/2023 7:41 AM EDT Illness Severity [x] Stable [] Watcher [] Unstable Patient Summary Reason for admission: FTT abd pain/dysphagia Relevant PMH: MIKEY Significant 24 hour events: admit from ED 03/28 PM: NAEON. Pain and nausea well-controlled. Double vision persists w/ mild dizziness, NOS. Pt slept all night. Action List Eye patch to help with double vision * SureshHirsch, Mary, PT - 03/28/2023 2:06 PM EDT Physical [...] home with her at all times. Called in [place], [place], where she lives. There is vestibular [...] Billing Code: TEF ANIYA CRAWFORD PT Pager: [phone] Physical Therapy Inpatient Rehabilitation Department * Dick [...] of cessation. She was seen by clinical instructor dancing with recommendation to stop Lamicatal altogether. At [...] Bariatric Surgery 12:06 PM 03/28/23 Service pager: [phone] Associated attestation - Iram Borrero MD - [...] Patient voiding to BSC w/ SBA. LBM CONSTRUCTION SITE MANAGER. Patient sleeping in between care. PLAN MOVING FORWARD: Pain management Psych consult Mobilize D/C planning INDIVIDUALIZED FALL PREVENTION INTERVENTIONS: Patient-specific fall risk factors per assessment: [current deficits]: Pain, hospital environment Assistance [level of assistance required for transfers and ambulation]: SBA Supervision [direct monitoring required during toileting and ADLs]: Eyes on Surveillance [continuous indirect monitoring]: Alaina * Pito Baltazar OT - 03/27/2023 1:55 PM EDT Occupational [...] performed by Iram Borrero MD at [facility] MAIN OR ??? PRO UPPER GI ENDOSCOPY, DIAGNOSTIC N/A 01/10/2023 ?? EGD, UPPER GI ENDOSCOPY performed by Iram Borrero MD at [facility] OR ??? PRO UPPER GI ENDOSCOPY, DIAGNOSTIC N/A 03/05/2023 ?? EGD, UPPER GI ENDOSCOPY (WRVU 2.09) performed by Iram Borrero MD at [facility] OR ?? Active Non-Hospital Problems [...] Occupational Therapy: 33 (SCHM X1 TAF X1 (8913-2858)) Pager: [phone] Pito Baltazar, KO 03/27/2023 Occupational Therapy Rehabilitation Department * Herman Viramontes, CONSTRUCTION SITE MANAGER - 03/27/2023 10:20 AM EDT Physical Therapy [...] TE-F x 2 HERMAN VIRAMONTES PTA Pager: [phone] Physical Therapy Inpatient Rehabilitation Department * Joan [...] into home apartment ?? Seen by clinical instructor dancing yesterday w/ recommendation to stop Lamictal altogether [...] of cessation. She was seen by clinical instructor dancing yesterday with recommendation to stop Lamicatal altogether. [...] Bariatric Surgery 9:10 AM 03/27/23 Service pager: [phone] Associated attestation - Iram Borrero MD - [...] Patient voiding to BSC w/ SBA. LBM fire prevention captain. Patient sleeping in between care. PLAN MOVING FORWARD: Pain management Psych consult Mobilize D/C planning INDIVIDUALIZED FALL PREVENTION INTERVENTIONS: Patient-specific fall risk factors per assessment: [current deficits]: Pain, hospital environment Assistance [level of assistance required for transfers and ambulation]: SBA Supervision [direct monitoring required during toileting and ADLs]: Eyes on Surveillance [continuous indirect monitoring]: Elizao * Lisbeth Roca RN - 03/26/2023 5:51 [...] BILIDIR 0.4 (H) 03/20/2023 CRP 4.5 03/26/2023 CKPF3SS 139 12/18/2022 [id number] 612 03/21/2023 25OHVITD 34 03/26/2023 SFOLATE 4.0 (L) 03/21/2023 IRON 80 03/26/2023 No results found for: POCGLU Patient Lines/Drains/Airways Status Active Nutritional LDAs Name Placement date Placement time Site Days Peripheral IV Line - Single Lumen 03/25/23 1755 cephalic vein (lateral side of arm), right [...] of this encounter: 78.5 kg (173 lb). [place] Body Weight (IBW) (kg): 54.55 Usual Body [...] while inpatient FIOR [address] * Pito Baltazar OT - 03/26/2023 9:15 AM EDT Occupational [...] performed by Iram Borrero MD at [facility] MAIN OR ??? PRO UPPER GI ENDOSCOPY, DIAGNOSTIC N/A 01/10/2023 ?? EGD, UPPER GI ENDOSCOPY performed by Iram Borrero MD at [facility] OR ??? PRO UPPER GI ENDOSCOPY, DIAGNOSTIC N/A 03/05/2023 ?? EGD, UPPER GI ENDOSCOPY (WRVU 2.09) performed by Iram Borrero MD at [facility] OR ?? Active Non-Hospital Problems [...] Occupational Therapy: 45 (SCHM X1 TAF X2 (9740-2115)) Pager: [phone] Pito Baltazar OT 03/26/2023 Occupational Therapy Rehabilitation [...] Flexor digitorum profundus Digit II-V flexion / recreation worker 5 5 L2-3 Iliopsoas Hip flexion 5 [...] who have questions please contact the health palliative care coordinator that requested your imaging first. Electronically signed by: Poppy Webster MD, [facility] ([phone]), at 03/19/2023 1:29 PM MRI Cholangiopancreatography WO [...] who have questions please contact the health palliative care coordinator that requested your imaging first. Electronically signed by: Maximo Forrest DO, [facility] ([phone]), at 03/20/2023 7:[address] Head wo Contrast (Generic) (Exam End: 03/21/2023 12:34 PM) Impression Normal brain CT. Thank you for letting us participate in the care of this patient. If you are a health care provider and have any questions regarding this report, please contact the number below. For patients who have questions please contact the health palliative care coordinator that requested your imaging first. Electronically signed by: Erlin Castorena DO, [facility] ([phone]), at 03/21/2023 12:49 PM MRI Orbit wwo Contrast (Exam End: 03/24/2023 11:16 AM) Impression 1. Normal brain. 2. Normal orbits. Thank you for letting us participate in the care of this patient. If you are a health care provider and have any questions regarding this report, please contact the number below. For patients who have questions please contact the health palliative care coordinator that requested your imaging first. Brain wwo Contrast (Generic) (Exam End: 03/24/2023 11:16 AM) Impression 1. Normal brain. 2. Normal orbits. Thank you for letting us participate in the care of this patient. If you are a health care provider and have any questions regarding this report, please contact the number below. For patients who have questions please contact the health palliative care coordinator that requested your imaging first. Orthostatics blood [...] management). ?? Continue high-dose thiamine. Neurology Consult #[id number] Caron Conde MD Neurology PGY3 03/26/2023 Associated attestation - Darinel Flores MD - 04/05/2023 8:38 AM EDT Neurology Attending Note Darinel Flores MD PhD (pager [phone]) I have seen and examined Leandra Wilks [...] Bariatric Surgery 11:56 AM 03/26/23 Service pager: [phone] Continue holding lamictal per discussion with Dr. [...] timing of restarting lamictal. Recommended discussionwith clinical instructor dancing to determine if continued holding of medication would be of benefit. Would not recommend any more invasive evaluation at this time. If symptoms persist, could consider ENT evaluation but does not require continued inpatient treatment/observation. Discussed non-urgent case with clinical instructor dancing who will evaluate patient. Lamictal level ordered. Continue supportive care. Dispo: acute rehab recommended by PT at this time, pending placement Natalee Winn MD 03/26/23 1:35 PM MISpager [phone] * Candelaria Fish RN - 03/26/2023 4:42 [...] performed by Iram Borrero MD at [facility] MAIN OR ??? PRO LAP GASTRIC BYPASS/RENATO-EN-Y N/A 01/10/2023 @LAPAROSCOPIC GASTROPLASTY W/ RENATO-EN-Y CONSTRUCTION (WRVU 29.4) performed by [facility] MDat [facility] MA[facility] OR ??? PRO LAP, DIAGNOSTIC ABDOMEN N/A 03/22/2023 LAPAROSCOPY, DIAGNOSTIC, ABDOMEN (WRVU 5.14) performed by Iram Borrero MD at [facility] MAIN OR ??? PRO UPPER GI ENDOSCOPY, DIAGNOSTIC N/A 01/10/2023 EGD, UPPER GI ENDOSCOPY performed by Iram Borrero MD at [facility] MAIN OR ??? PRO UPPER GI ENDOSCOPY, DIAGNOSTIC N/A 03/05/2023 EGD, UPPER GI ENDOSCOPY (WRVU 2.09) performed by Iram Borrero MD at [facility] OR ??? PRO UPPER GI ENDOSCOPY, DIAGNOSTIC N/A 03/20/2023 EGD, UPPER GI ENDOSCOPY (WRVU 2.09) performed by Gerber Salomon MD at [facility] ENDOSCOPY Active Non-Hospital Problems Diagnosis ? ? [...] exercises in horizontal and vertical and provided [facility] HEP Education: patient has been educated [...] EVAL LOW COMPLEXITY) Felicia Oneal, PT Pager: [phone] Physical Therapy Inpatient Rehabilitation Department * Eva Kapoor - 03/25/2023 9:17 AM EDT General Neurology [...] L Elbow flexion 5/5 R, 5/5 L Insurance Instructor LE: 5/5 R, 5/5 L Hip flexion [...] who have questions please contact the health palliative care coordinator that requested your imaging first. Electronically signed by: Poppy Webster MD, [facility] ([phone]), at 03/19/2023 1:29 PM MRI Cholangiopancreatography WO [...] who have questions please contact the health palliative care coordinator that requested your imaging first. Electronically signed by: [facility] ([phone]), at 03/20/2023 7:[address] Head wo Contrast (Generic) (Exam End: 03/21/2023 12:34 PM) Impression Normal brain CT. Thank you for letting us participate in the care of this patient. If you are a health care provider and have any questions regarding this report, please contact the number below. For patients who have questions please contact the health palliative care coordinator that requested your imaging first. Electronically signed by: [facility]na [facility] ([phone]), at 03/21/2023 12:49 PM MRI Orbit wwo Contrast (Exam End: 03/24/2023 11:16 AM) Impression 1. Normal brain. 2. Normal orbits. Thank you for letting us participate in the care of this patient. If you are a health care provider and have any questions regarding this report, please contact the number below. For patients who have questions please contact the health palliative care coordinator that requested your imaging first. Brain wwo Contrast (Generic) (Exam End: 03/24/2023 11:16 AM) Impression 1. Normal brain. 2. Normal orbits. Thank you for letting us participate in the care of this patient. If you are a health care provider and have any questions regarding this report, please contact the number below. For patients who have questions please contact the health palliative care coordinator that requested your imaging first. Assessment and [...] continue meclizine 25mg TID PRN Eva Kapoor [facility] Medical Student 03/25/23 Associated attestation - Darinel Flores MD - 03/27/2023 9:58 AM EDT Neurology Attending Attestation I have reviewed and agree with NINA Kaopor's note which was written for educational purposes. [...] Flexor digitorum profundus Digit II-V flexion / recreation worker 5 5 L2-3 Iliopsoas Hip flexion 5 [...] who have questions please contact the health palliative care coordinator that requested your imaging first. Electronically signed by: Poppy Webster MD, [facility] ([phone]), at 03/19/2023 1:29 PM MRI Cholangiopancreatography WO [...] who have questions please contact the health palliative care coordinator that requested your imaging first. Electronically signed by: Maximo Forrest [facility] ([phone]), at 03/20/2023 7:[address] Head wo Contrast (Generic) (Exam End: 03/21/2023 12:34 PM) Impression Normal brain CT. Thank you for letting us participate in the care of this patient. If you are a health care provider and have any questions regarding this report, please contact the number below. For patients who have questions please contact the health palliative care coordinator that requested your imaging first. Electronically signed by: [facility]orena [facility] ([phone]), at 03/21/2023 12:49 PM MRI Orbit wwo Contrast (Exam End: 03/24/2023 11:16 AM) Impression 1. Normal brain. 2. Normal orbits. Thank you for letting us participate in the care of this patient. If you are a health care provider and have any questions regarding this report, please contact the number below. For patients who have questions please contact the health palliative care coordinator that requested your imaging first. Brain wwo Contrast (Generic) (Exam End: 03/24/2023 11:16 AM) Impression 1. Normal brain. 2. Normal orbits. Thank you for letting us participate in the care of this patient. If you are a health care provider and have any questions regarding this report, please contact the number below. For patients who have questions please contact the health palliative care coordinator that requested your imaging first. Orthostatics blood [...] resolve. ?? Continue high-dose thiamine. Neurology Consult #[id number] Caron Conde MD Neurology Resident PGY3 03/25/2023 Associated attestation - Darinel Flores MD - 03/27/2023 10:00 AM EDT Neurology Attending Note Darinel Flores MD PhD (pager [phone]) I have seen and examined Leandra Wilks [...] [96 %-99 %] 03/24 701 - 03/25 07 In: 2283 [P.O.:20; I.V.:2263] Out: 250 [Urine:200] [...] 291 268 268 263 Recent Labs 03/25/23 0331 03/24/23 0551 03/24/23 [...] advanced to dysphagia soft. Abdominal lap sites CHERRY GROWER. Patient voiding to BSC w/ SBA FWW. [...] and PRNmedications, see JAN. Abdominal lap sites CHERRY GROWER. Patient voiding to BSC w/ SBA FWW. [...] does report on goingdizziness. Lap sites dermabounded CHERRY GROWER. LR @ 100. VSS on RA. Denies [...] Extremities: Warm and well-perfused Labs: Recent Labs 03/22/237 03/21/23 0346 03/20/23 0232 WBC 8.0 8.2 [...] today to further evaluate bypass anatomy. Iram Borreor MD * Pito Baltazar, OT - 03/22/2023 [...] 29.4) performed by Iram Borrero MD at [facility] OR ??? PRO UPPER GI ENDOSCOPY, DIAGNOSTIC N/A 01/10/2023 ?? EGD, UPPER GI ENDOSCOPY performed by Iram Borrero MD at [facility] OR ??? PRO UPPER GI ENDOSCOPY, DIAGNOSTIC N/A 03/05/2023 ?? EGD, UPPER GI ENDOSCOPY (WRVU 2.09) performed by Iram Borrero MD at [facility] OR ?? Active Non-Hospital Problems [...] Total Minutes, Occupational Therapy: 23 (TAF X2 (1028-2997)) Pager: [phone] Pito Baltazar, KO 03/22/2023 Occupational Therapy Rehabilitation Department * Ana Condon RN - 03/22/2023 4:30 AM EDT Pt A&Ox4. VSS. Patient tolerated two orange portuguese ice and crackers prior to being NPO [...] 29.4) performed by Iram Borrero MD at [facility] OR ??? PRO UPPER GI ENDOSCOPY, DIAGNOSTIC N/A 01/10/2023 ?? EGD, UPPER GI ENDOSCOPY performed by Iram Borrero MD at [facility] OR ??? PRO UPPER GI ENDOSCOPY, DIAGNOSTIC N/A 03/05/2023 ?? EGD, UPPER GI ENDOSCOPY (WRVU 2.09) performed by Iram Borrero MD at [facility] OR ?? Active Non-Hospital Problems [...] 1-3 times/wk Total Minutes, Occupational Therapy: 42 ([facility] X3 (4167-4842)) Pager: [phone] Pito Baltazar, OT 03/21/2023 Occupational Therapy Rehabilitation [...] Extremities: Warm and well-perfused Labs: Recent Labs 03/21/236 03/20/23 02303/19/23 03403/18/23 1549 WBC 8.2 5.4 [...] ADLs]: Standby assist Surveillance [continuous indirect monitoring]: Barto, purposeful hourly rounding Patient-specific fall prevention interventions [...] who have questions please contact the health palliative care coordinator that requested your imaging first. Electronically signed by: Maximo Forrest DO, [facility] ([phone]), at 03/20/2023 7:59 AM Lab Results Component [...] Adair Winn MD 03/20/23 9:01 AM MISpager [phone] Associated attestation - Iram Borrero MD - [...] Minimally Invasive Surgery Inpatient Progress Note ID: eLandra Wilks is a 43 y.o. female with [...] with no adverse s/sx observed; voiding to BS, reports dizziness/lightheadedness with ambulation, calls appropriately for [...] Bower MD - 03/18/2023 4:04 PM EDT [facility] Department of Minimally Invasive Surgery Admission History [...] tachycardic and was advised to present to [facility] for further evaluation by the surgery team. [...] 29.4) performed by Iram Borrero MDat [facility] MAIN OR ??? PRO UPPER GI ENDOSCOPY, DIAGNOSTIC N/A 01/10/2023 EGD, UPPER GI ENDOSCOPY performed by Iram Borrero MD at [facility] MAIN OR ??? PRO UPPER GI ENDOSCOPY, DIAGNOSTIC N/A 03/05/2023 EGD, UPPER GI ENDOSCOPY (WRVU 2.09) performed by Iram Borrero MD at [facility] MAIN OR HOME MEDICATIONS: No current facility-administered [...] unwell and was recommended to come to [facility]. 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 NO known head trauma. H/o ear infections [...] performed by Iram Borrero MD at [facility] MAIN OR ??? PRO LAP GASTRIC BYPASS/RENATO-EN-Y N/A 01/10/2023 @LAPAROSCOPIC GASTROPLASTY W/ RENATO-EN-Y CONSTRUCTION (WRVU 29.4) performed by [facility]ro MDat [facility] MAIN OR ??? PRO LAP, DIAGNOSTIC ABDOMEN N/A 03/22/2023 LAPAROSCOPY, DIAGNOSTIC, ABDOMEN (WRVU 5.14) performed by Iram Borrero MD at [facility] MAIN OR ??? PRO UPPER GI ENDOSCOPY, DIAGNOSTIC N/A 01/10/2023 EGD, UPPER GI ENDOSCOPY performed by Iram Borrero MD at [facility] MAIN OR ??? PRO UPPER GI ENDOSCOPY, DIAGNOSTIC N/A 03/05/2023 EGD, UPPER GI ENDOSCOPY (WRVU 2.09) performed by Iram Borrero MD at [facility] MAIN OR ??? PRO UPPER GI ENDOSCOPY, DIAGNOSTIC N/A 03/20/2023 EGD, UPPER GI ENDOSCOPY (WRVU 2.09) performed by Gerber Salomon MD at [facility] ENDOSCOPY Medications: Current Facility-Administered Medications Ordered in [...] Q30 Min Natalee Gottlieb MD No current [facility]-ordered outpatient medications on file. Prior To Admission [...] ERIN 5 months ago, Dr. 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 ?? provide the [facility], Office of Care Management letter from the Pole Inspector pertaining to rehabreferrals. ?? provide a letter describing our affiliations within the [facility] and educate about their right to choose where referrals are sent. ?? provide the CMS Star Quality Rating handout. ?? review the different levels of rehab including SNF, swing, and acute. ?? provide a list of facilities within their preferred geographic area. ?? request that they provide at least three choices for referral. They have requested referrals to: ([facility]) ([facility]) [address] [place] [address] (Accepts pts only after exhausting all other local SNF options Only pts from their area with PCP at the Hospital Maximum rehab stay of 5 days) [facility] ([address] [id number] [facility] [address] [place] [address] Note routed to a Forensic Pathologist who will communicate referrals to facilities and provide any required information. Addendum: Call placed to [facility], no beds, no beds, Caryl hector. * Consult Note - Jessica Haywood [facility] - 03/27/2023 10:40 AM EDT KATE (Behavioral Intervention Team) KATE [facility] stopped to see this patient today. She [...] this admission for support. Jessica Haywood MA, [facility] Mental Gopi Services - BIT (Behavioral Intervention Team) Dept. of Psychiatry - Inpatient Psych. Services Pager: [phone] * Consult Note - Maximo Moreno MD [...] improved her double vision. According to the contact center analyst's information, lamotrigine (uma at higher doses) can [...] was reduced. I am available on pager [phone] if I can help further. This is definitely a challenging case, but I think it is likely that the lamotrigine is contributing or causing to the nystagmus and double vision,and possibly contributing to the nausea and vomiting that patient has had as well. Maximo Moreno MD Pager [phone] * Care Management - Corey Wick RN [...] discuss discharge planning needs. ?? provide the [facility], Office of Care Management letter from the Pole Inspector pertaining to rehabreferrals. ?? provide a letter describing our affiliations within the [facility] and educate about their right to choose where referrals are sent. ?? provide the CMS Star Quality Rating handout. ?? review the different levels of rehab including SNF, swing, and acute. ?? provide a list of facilities within their preferred geographic area. ?? request that they provide at least three choices for referral. They have requested referrals to: [facility] Inpatient Rehabilitation Unit - [address] [address] [facility] Acute Rehabilitation and Sub-Acute (Swing) Rehab Levels of Care [address] [place] [address] Note routed to a Forensic Pathologist who will communicate referrals to facilities and [...] 2 choices and made pt aware that [place] only had 2, [facility] and [facility]. Pt agreed to placing both. Anticipated Date of Discharge: 03/29/2023 Isak STEPHENS, RN CM Case Management [phone] * Consult Note - Jessica Haywood [facility] - 03/25/2023 10:40 AM EDT BIT Evaluation [...] to varying degrees since her original surgery. [facility] encouraged patient to discuss stressors and [...] Interventions delivered: Supportive therapy Plan: 1. BIT [facility] to continue to follow for support during admission 2. Recommend patient continue with her established outpatient mental health counseling Time spent with the patient (min):15 minutes Time spent on case coordination (min): 10 minutes Jessica Haywood MA, [facility] Mental [facility]op[facility] Services - BIT (Behavioral Intervention Team) Dept. of Psychiatry - Inpatient Psych. Services Pager: [phone] * Consult Note - Fernando Giles MD [...] [facility] She states that she continues to have [...] and normal rhythm ?? Language: fluent in mongolian, without paraphasic errors and without word finding [...] Labs 03/25/23 0331 03/24/23 0551 03/24/23 03503/23/23 0339 NA 138 -- [...] who have questions please contact the health palliative care coordinator that requested your imaging first. Electronically signed by: Poppy Webster MD, [facility] ([phone]), at 03/19/2023 1:29 PM MRI Cholangiopancreatography WO [...] visceral organs, gastrointestinal tract, and vascular structures. Flight Attendant/Inflight Supervisor Images: Noncontributory. Inferior thorax: Visualized structures within [...] who have questions please contact the health palliative care coordinator that requested your imaging first. Electronically signed by: Maximo Forrest [facility] ([phone]), at 03/20/2023 7:[address] Head wo [...] who have questions please contact the health palliative care coordinator that requested your imaging first. Electronically signed by: Erlin Castorena [facility] ([phone]), at 03/21/2023 12:49 PM MRI Orbit wwo Contrast (Exam End: 03/24/2023 11:16 AM) Narrative EXAMINATION: MRI BRAIN WWO CONTRAST (GENERIC), MRI ORBIT WWO CONTRAST CLINICAL HISTORY: Dizziness, non-specific dizziness, diplopia, rule out stroke? (accession [id number]), right eye weakness, diplopia, concern for possible inferior rectus infiltration or inflamation vs. possible optic neuritis (accession [id number]). Right-sided weakness, diplopia, concerning for possible inferior [...] who have questions please contact the health palliative care coordinator that requested your imaging first. Brain wwo Contrast (Generic) (Exam End: 03/24/2023 11:16 AM) Narrative EXAMINATION: MRI BRAIN WWO CONTRAST (GENERIC), MRI ORBIT WWO CONTRAST CLINICAL HISTORY: Dizziness, non-specific dizziness, diplopia, rule out stroke? (accession [id number]), right eye weakness, diplopia, concern for possible inferior rectus infiltration or inflamation vs. possible optic neuritis (accession [id number]). Right-sided weakness, diplopia, concerning for possible inferior [...] who have questions please contact the health palliative care coordinator that requested your imaging first. Film Library- [...] this assessment. Recommendations were communicated to primary bakery team member Dick Bower. Fernando Giles MD [...] Minimal/Low [] Low [] Minimal/Low [] Low 09851 [] Moderate [] Moderate [] Moderate [] Moderate 28996 [] High [] High [] High [] High 55095 Final Coding Determination: Straightforward/low Associated attestation - Carlito Parrish MD - 04/05/2023 2:33 PM EDT Psychiatry Attending Note I discussed this patient's situation with the resident but did not see the patient. I contributed to the formulation and treatment planning as documented in the resident's note. Carlito Parrish MD Psychiatry Consultation Pager: [phone] * Consult Note - Varsha Topete APRN [...] 7.13* 6.54* 4.00 5.44 Recent Labs 03/24/23 0503/24/2335003/23/23 03303/22/2341603/21/2334503/20/23 023 NA -- 141 139 140 [...] 168 hours. No results for input(s): PHART, PII2HDJ, PO2ART, TFY1NJK in the last 168 hours. No results [...] Folate supplementation - daily multivit General Neurology #7561 Varsha Topete APRN Personal Pager #[phone] Department [place] [address] Associated attestation - Darinel Flores MD - 03/24/2023 2:26 PM EDT Neurology Attending Note Darinel Flores MD PhD (pager [phone]) I have seen and examined Leandra Wilks [...] Flexor digitorum profundus Digit II-V flexion / recreation worker 5 5 L2-3 Iliopsoas Hip flexion 5 [...] who have questions please contact the health palliative care coordinator that requested your imaging first. Electronically signed by: Poppy Webster MD, [facility] ([phone]), at 03/19/2023 1:29 PM MRI Cholangiopancreatography WO [...] who have questions please contact the health palliative care coordinator that requested your imaging first. Electronically signed by: Maximo Forrest [facility] ([phone]), at 03/20/2023 7:[address] Head wo Contrast (Generic) (Exam End: 03/21/2023 12:34 PM) Impression Normal brain CT. Thank you for letting us participate in the care of this patient. If you are a health care provider and have any questions regarding this report, please contact the number below. For patients who have questions please contact the health palliative care coordinator that requested your imaging first. Electronically signed by: Erlin Castorena [facility] ([phone]), at 03/21/2023 12:49 PM Orthostatics blood pressure [...] brainstem - MRI orbits wwo Neurology Consult #[id number] Isai Esqueda MD Neurology Resident, PGY-4 03/23/2023 Associated attestation - Darinel Flores MD - 03/24/2023 2:28 PM EDT Neurology Attending Note Darinel Flores MD PhD (pager [phone]) Please see my earlier attestation. * Op Note - Iram Borrero MD - 03/22/2023 7:54 PM EDT [facility] Operative Note Patient Name: Leandra Wilks : [id number] MR#: [id number] Case Date: 03/22/2023 Surgeon: Surgeon(s) and Role: [...] 29.4) performed by [facility]at [facility] MAIN OR ??? PRO UPPER GI ENDOSCOPY, DIAGNOSTIC N/A 01/10/2023 EGD, UPPER GI ENDOSCOPY performed by Iram Borrero MD at [facility] MAIN OR ??? PRO UPPER GI ENDOSCOPY, DIAGNOSTIC N/A 03/05/2023 EGD, UPPER GI ENDOSCOPY (WRVU 2.09) performed by Iram Borrero MD at [facility] MAIN OR ??? PRO UPPER GI ENDOSCOPY, DIAGNOSTIC N/A 03/20/2023 EGD, UPPER GI ENDOSCOPY (WRVU 2.09) performed by Gerber Salomon MD at [facility] ENDOSCOPY Allergies: No Known Allergies Family history: [...] Flexor digitorum profundus Digit II-V flexion / recreation worker 5 5 L2-3 Iliopsoas Hip flexion 5 [...] 37.3 Last Ca, Mg, Phos Recent Labs 03/22/23416 CALCIUM 9.0 PHOS 3.1 MAGNESIUM 0.94 Diagnostic [...] who have questions please contact the health palliative care coordinator that requested your imaging first. Electronically signed by: Poppy Webster MD, [facility] ([phone]), at 03/19/2023 1:29 PM MRI Cholangiopancreatography WO [...] who have questions please contact the health palliative care coordinator that requested your imaging first. Electronically signed by: Maximo Forrest [facility] ([phone]), at 03/20/2023 7:[address] Head wo Contrast (Generic) (Exam End: 03/21/2023 12:34 PM) Impression Normal brain CT. Thank you for letting us participate in the care of this patient. If you are a health care provider and have any questions regarding this report, please contact the number below. For patients who have questions please contact the health palliative care coordinator that requested your imaging first. Electronically signed by: Erlin Cast[facility]na [facility] ([phone]), at 03/21/2023 12:49 PM Orthostatics blood pressure [...] Attending Note Darinel Flores MD PhD (pager [phone]) I have seen and examined Leandra Wilks [...] TID. Yuriy Bustillo MD Psychiatry Consultation Pager: [phone] Psychiatric Initial Inpatient Consultation Note Time of Consultation: 3:00 PM Information Sources: Patient. Electronic Medical Record. Reason for consultation: I have been asked by attending physician Dr. Iram Borrero to see Ibis Wilks for recommendations regarding the management of nausea and abdominal pain and I have outlined my findings and recommendations in this report. ID: eLandra Wilks is a 43 y.o. female??with a [...] Prozac and Lamictal Past hospitalizations: None at [facility] Suicide attempts: 1 remote attempt Past psychiatric [...] 29.4) performed by [facility] MA[facility] OR ??? PRO UPPER GI ENDOSCOPY, DIAGNOSTIC N/A 01/10/2023 EGD, UPPER GI ENDOSCOPY performed by Iram Borrreo MD at [facility] MAIN OR ??? PRO UPPER GI ENDOSCOPY, DIAGNOSTIC N/A 03/05/2023 EGD, UPPER GI ENDOSCOPY (WRVU 2.09) performed by Iram Borrero MD at [facility] MAIN OR ??? PRO UPPER GI ENDOSCOPY, DIAGNOSTIC N/A 03/20/2023 EGD, [facility] performed by Gerber Salomon MD at [facility] ENDOSCOPY Inpatient Medications: Current Facility-Administered Medications Medication [...] and increased latency ?? Language: fluent in mongolian, without paraphasic errors and without word finding [...] 3 Lytes Recent Labs 03/21/23 0346 03/20/23 02303/19/23 1532 NA 135 134* 135 K 3.8 4.1 4.1 CL 98 97* 97* CO2 27 26 26 BUN 6* 4* 5* CREATININE 0.54* 0.42* 0.40* Last 3 LFTs Recent Labs 03/21/23 0346 03/20/23 0232 03/18/23 1549 AST 24 42* 74* ALT 43* 57* 87* ALKPHOS 116* 111* 152* BILITOT 0.9 1.0 1.4* BILIDIR -- 0.4* 0.6* Last Ca, Mg, Phos Recent Labs 03/21/23345 CALCIUM 8.4* PHOS 3.0 MAGNESIUM 0.81 Last [...] who have questions please contact the health palliative care coordinator that requested your imaging first. Electronically signed by: Poppy Webster MD, [facility] ([phone]), at 03/19/2023 1:29 PM MRI Cholangiopancreatography WO [...] visceral organs, gastrointestinal tract, and vascular structures. Flight Attendant/Inflight Supervisor Images: Noncontributory. Inferior thorax: Visualized structures within [...] who have questions please contact the health palliative care coordinator that requested your imaging first. Electronically signed by: Maximo Forrest [facility] ([phone]), at 03/20/2023 7:[address] Head wo [...] who have questions please contact the health palliative care coordinator that requested your imaging first. Electronically signed by: Erlin Castorena [facility] ([phone]), at 03/21/2023 12:49 PM Film Library- Storage [...] this assessment. Recommendations were communicated to primary bakery team member. Fernando Giles MD 03/21/2023 Coding [...] [] Minimal - [] Minimal [] Straightforward 82583 [] Low [] Low [] Low [] Low 34838 [] Moderate [x] Moderate [] Moderate [] Moderate 18176 [x] High [] High [x] High [x] High 00047 Final Coding Determination: Straightforward * Consult Note - ScarletdaoJessica hanna, [facility] - 03/21/2023 11:30 AM EDT BIT Evaluation [...] surgery. Because patient will be evaluated by [facility] psychiatrist who can obtain more history, etc., [...] support. Interventions delivered: Supportive therapy Plan: KATE [facility] to follow for supportive therapy Outstanding Discharge Needs: Other: TBD - patient already has an established outpatient therapist Time spent with the patient (min):30 minutes Time spent on case coordination (min): 15 minutes Jessica Haywood MA, [facility] Mental Gopi Services - BIT (Behavioral Intervention Team) Dept. of Psychiatry - Inpatient Psych. Services Pager: [phone] * Initial Assessments - Pito Baltazar, OT [...] 29.4) [facility] by [facility] ??? PRO UPPER GI ENDOSCOPY, DIAGNOSTIC N/A 01/10/2023 EGD, UPPER GI ENDOSCOPY performed by Iram Borrero MD at [facility] MAIN OR ??? PRO UPPER GI ENDOSCOPY, DIAGNOSTIC N/A 03/05/2023 EGD, UPPER GI ENDOSCOPY (WRVU 2.09) performed by Iram Borrero MD at [facility] MAIN OR Active Non-Hospital Problems Diagnosis ? [...] planning. Total Minutes, Occupational Therapy: 34 (Eval ([id number])) 2017 OT Evaluation Code Rationale: ?? Diagnosis [...] and measurable assessment of functional outcome. Pager: [phone] Pito Baltazar OT 03/20/2023 Occupational Therapy Rehabilitation Department * Op Note - Gerber Salomon MD - 03/20/2023 11:55 AM EDT DH Operative Note Patient Name: Leandra Wilks : [id number] MR#: [id number] Case Date: 03/20/2023 Surgeon: Surgeon(s) and Role: [...] 29.4) performed by [facility] MA[facility] OR ??? PRO UPPER GI ENDOSCOPY, DIAGNOSTIC N/A 01/10/2023 EGD, UPPER GI ENDOSCOPY performed by Iram Borrero MD at [facility] MAIN OR ??? PRO UPPER GI ENDOSCOPY, DIAGNOSTIC N/A 03/05/2023 EGD, UPPER GI ENDOSCOPY (WRVU 2.09) performed by Iram Borrero MD at [facility] MAIN OR SOCIAL HX: Social History Socioeconomic [...] who have questions please contact the health palliative care coordinator that requested your imaging first. Electronically signed by: Poppy Webster MD, [facility] ([phone]), at 03/19/2023 1:29 PM Film Library- Storage [...] EGD. Raúl Zapien MD Section of Gastroenterology [facility] * Plan of Care [...] N/A ; Prescription Coverage: Yes Preferred Pharmacy: [id number] - [place], [place] - [address] [facility] [address] [facility] [address] [place], [place] - [address] [facility] [address] Advance Care Planning: Attempt Cardiopulmonary Resuscitation - Inpatient <no information> -Advanced Directive: (not on file) Current Functional Ability: Assistive Person Functional Status Prior to Admission: Independent Home Environment: Others in the home: significant other. Current Living Arrangements: home/apartment/condo. Accessibility Concerns:second floor apartment, FOS to manage. Current DME: none [address] [facility] [address] Social & Family Supports: All names listed below confirmed with patient as current and correct Extended Emergency Contact Information Primary Emergency Contact: JAXON BLAKE Address: [address] [place] [address] [facility] Mobile Relation: Life Partner Secondary Emergency Contact: LoyOzzy Address: [address] Relation: Child Current Care Provided by: [...] private car when medically ready. Registered Nurse Warehouse Supervisor / Cement Sprayer Helper will continue to follow patient???s progress and remain available if situation changes for coordination of care, psychosocial support and/or discharge planning. Office of Care Management Janis HEDRICK survey researcher Team Warehouse SupervisorDirector Of Veterans Affairs of Care Management [email or web address] Pager #[phone] * Consult Note - Emmanuel Rodriguez [facility] - 03/19/2023 1:00 AM EDT TelePharmacy Home Medication List Update for Medication Reconciliation 03/19/23 1:00 AM Leandra Wikls 1980 No Known Allergies ??? Person Interviewed: [...] reconciled by the provider. Please [facility] Medication Reconciliation Pharmacist at for any [...] psychologist to work on eating behaviors Health Re Recording Mixer is sending hand-outs with exercises for mindful [...] training 3 times a week -can use [email or web address] Nutrition - 09/26/22 Lifestyle On track(2021 10:29 [...] 03/22/20 8:17 PM EDT LAPAROSCOPY, DIAGNOSTIC Routine 03/22/20 6:41 PM EDT [...] PM EDT Upper GI Endoscopy, Diagnost ic (28070) 03/20/2023 11:51 AM EDT dysphagia UPPER GI [...] 3:50 AM EDT) Neutrophil % 55.1 % [facility] Neutrophil Absolute 3.91 1.70 - 6.10 x10(3)/mc L [facility] Lymph % 33.0 % [facility] Lymphocytes Abs 2.3 0.9 - 3.2 x10(3)/mc L [facility] Monocyte % 5.6 % [facility] Monocyte Abs 0.4 0.3 - 0.9 x10(3)/mc L [facility] Eos % 4.9 % [facility] Eosinophils Abs 0.4 0.0 - 0.4 x10(3)/mc L [facility] Basophil % 0.3 % [facility] Baso Absolute 0.0 0.0 - 0.1 x10(3)/mc L [facility] Immature Gran % 1.10 % [facility] Comment: Immature granulocytes(IG's)percentage and absolute count will include metamyelocytes, myelocytes, and promyelocytes. Blood smears from CBCs yielding IG's will be scanned manually for concordance. If this scan disagrees with the automated IG or if promyelocytes are noted, a manual differential will be performed. Immature Gran Absolute 0.08(H) 0.00 - 0.04 x10(3)/mc L [facility] Blood 03/27/2023 3:50 AM EDT 03/27/2023 4:21 AM EDT Narrative Resulting Agency Comment Spec In Lab Natalee Winn MD HEMATOLOGY ORDERABLE S [facility] [place] [address] * (ABNORMAL) Hemogram (03/27/2023 3:50 AM EDT) White Blood Cell 7.1 4.0 - 9.5 x10(3)/mc L [facility] Red Blood Cell 3.75(L) 4.00 - 5.21 x10(6)/mc L [facility] Hemoglobin 10.9(L) 11.7 - 15.5 g/dL [facility] Hematocrit 31.5(L) 35.7 - 45.8 % [facility] Mean Cell Volume 84.0 82.6 - 94.4 fL [facility] Mean Cell Hemoglobin 29.1 27.1 - 32.0 pg [facility] Mean Cell Hemoglobin Concentration 34.6 31.7 - 35.0 g/dL [facility] Platelet 297 145 - 357 x10(3)/mc L [facility] RDW Standard Deviation 47.8(H) 37.0 - 46.0 fL [facility] LABORATORY RDW coefficient of variation 15.9(H) 11.5 - 14.1 % [facility] Mean Platelet Volume 9.3 7.6 - 12.9 fL [facility] NRBC% auto 0.0 % [facility] NRBC Absolute 0.000 0.000 - 0.000 x10(3)/mc L [facility] Blood 03/27/2023 3:50 AM EDT 03/27/2023 4:21 AM EDT Narrative Resulting Agency Comment Spec In Lab Natalee Winn MD HEMATOLOGY ORDERABLE S [facility] [place] [address] * (ABNORMAL) Comprehensive metabolic panel (non-fasting) (03/27/2023 3:50 AM EDT) Glucose 86 65 - 199 mg/dL [facility] Comment:Diabetes: >=200 mg/d L plus symptoms Blood Urea Nitrogen 10 8 - 18 mg/dL [facility] Comment:result rechecked-GH Creatinine 0.74 0.70 - 1.20 mg/dL [facility] Sodium 141 135 - 145 mmol/L [facility] Potassium 3.5 3.5 - 5.0 mmol/L [facility] Comment: Please note: ??Patients with WBC >100,000 may have falsely elevated Potassium levels. ??For accurate Potassium quantification in these patients send serum separator tube (gold top) for subsequent determinations. ??Contact the Clinical Chemistry Laboratory if there are any questions. Chloride 105 98 - 107 mmol/L [facility] Carbon Dioxide 25 22 - 31 mmol/L [facility] Anion Gap 11 5 - 15 mmol/L [facility] Calcium 8.7 8.5 - 10.5 mg/dL [facility] Protein, Total 5.3(L) 6.1 - 8.0 g/dL [facility] Albumin 3.2 3.2 - 5.2 g/dL [facility] Aspartate Aminotransferase 40(H) 0 - 30 unit/L [facility] Alanine Aminotransferase 42(H) 0 - 30 unit/L [facility] Alkaline Phosphatase 111(H) 35 - 105 unit/L [facility] Bilirubin, Total 0.7 0.2 - 1.3 mg/dL [facility] Est Glomerular Filtration Rate 102 >=60 mL/min/1. 73 m?? [facility] Comment: This patient's estimated GFR was [...] In Lab Natalee Winn MD CHEMISTRY ORDERABLES [facility] [place] [address] * Phosphorus (03/27/2023 3:50 AM EDT) Phosphorus 4.3 2.5 - 4.5 mg/dL [facility] Blood 03/27/2023 3:50 AM EDT 03/27/2023 4:19 AM EDT Narrative Resulting Agency Comment Spec In Lab Natalee Winn MD CHEMISTRY ORDERABLES Performing Organization Address City/[facility] Co de Phone Number [facility] [place] [address] * Magnesium (03/27/2023 3:50 AM EDT) Magnesium 0.85 0.69 - 1.07 mmol/L [facility] Blood 03/27/2023 3:50 AM EDT 03/27/2023 4:19 AM EDT Narrative Resulting Agency Comment Spec In Lab Natalee Winn MD CHEMISTRY ORDERABLES Performing Organization Address City/[facility]/ZIP Co de Phone Number [facility] [place] [address] * POCT Glucose (03/26/2023 7:43 PM EDT) Glucose, POC 89 65 - 199 mg/dL [facility] Comment: Supplemental ranges: <140 mg/dL before meals <180 mg/dL all other times of the day Blood 03/26/2023 7:43 PM EDT 03/26/2023 7:43 PM EDT Iram Borrero MD POINT OF CARE TEST O RDERABLES Performing Organization Address City/[facility]/ZIP Co de Phone Number [facility] [place] [address] * Lamotrigine Lvl (03/26/2023 4:00 AM EDT) Lamotrigine Lvl (MARCH) 3.6 3.0 - 15.0 mcg/mL [facility] Comment: ADDITIONAL INFORMATION This test was developed and its performance characteristics determined by [facility] in a manner consistent with CLIA requirements. This test has not been cleared or approved by the U.S. Food and Drug Administration. Test Performed by: [facility] - [address] [address] [employer]: Erlin Orlando M.D. Ph.D.; CLIA# [id number] Blood Venous Draw / Unknown 03/26/2023 4:00 AM EDT 03/26/2023 3:52 PM EDT Narrative Resulting Agency Comment Spec In Lab Natalee Winn MD LAB SEND OUT ORDERAB LES Performing Organization Address City/[facility]/ZIP Co de Phone Number [facility] [place] [address] * (ABNORMAL) Ferritin (03/26/2023 4:00 AM EDT) Ferritin 778(H) 15 - 150 ng/mL [facility] Comment: Pediatric reference ranges not verified at [facility], interpret with caution. Reference ranges for females greater than 50 years of age approach values for men, i.e., 30-400 ng/mL. Blood Venous Draw / Unknown 03/26/2023 4:00 AM EDT 03/26/2023 4:37 AM EDT Narrative Resulting Agency Comment Spec In Lab Joan GAINES CHEMISTRY ORDERABLE S [facility] [place] [address] * (ABNORMAL) Iron and TIBC (03/26/2023 4:00 AM EDT) Iron 80 30 - 150 mcg/dL [facility] TIBC 226(L) 250 - 450 mcg/dL [facility] Iron Saturation 35 20 - 50 % [facility] Blood Venous Draw / Unknown 03/26/2023 4:00 AM EDT 03/26/2023 4:36 AM EDT Narrative Resulting Agency Comment Spec In Lab Joan GAINES CHEMISTRY ORDERABLE S Performing Organization Address City/[facility]/ZIP Co de Phone Number [facility] [place] [address] * Vitamin D, 25-Hydroxy (03/26/2023 4:00 AM EDT) Vitamin D Total 25 OH 34 21 - 100 ng/mL [facility] Vit D Interp Sufficient [facility] Blood Venous Draw / Unknown 03/26/2023 4:00 AM EDT 03/26/2023 4:37 AM EDT Narrative Resulting Agency Comment Spec In Lab Joan GAINES CHEMISTRY ORDERABLE S Performing Organization Address City/[facility]/ZIP Co de Phone Number [facility] [place] [address] * Green Tube HOLD (03/26/2023 4:00 AM EDT) Green Hold Sample in lab. [facility] Blood Venous Draw / Unknown 03/26/2023 4:00 AM EDT 03/26/2023 4:35 AM EDT Natalee Winn MD CHEMISTRY ORDERABLES [facility] [place] [address] * Gold Tube HOLD (03/26/2023 4:00 AM EDT) Gold Hold Sample in lab. [facility] Blood Venous Draw / Unknown 03/26/2023 4:00 AM EDT 03/26/2023 4:36 AM EDT Natalee Winn MD CHEMISTRY ORDERABLES [facility] [place] [address] * (ABNORMAL) Differential, Automated (03/26/2023 4:00 AM EDT) Neutrophil % 54.4 % [facility] Neutrophil Absolute 3.65 1.70 - 6.10 x10(3)/mc L [facility] Lymph % 31.2 % [facility] Lymphocytes Abs 2.1 0.9 - 3.2 x10(3)/mc L [facility] Monocyte % 6.0 % [facility] Monocyte Abs 0.4 0.3 - 0.9 x10(3)/mc L [facility] Eos % 6.0 % [facility] Eosinophils Abs 0.4 0.0 - 0.4 x10(3)/mc L [facility] Basophil % 0.6 % [facility] Baso Absolute 0.0 0.0 - 0.1 x10(3)/mc L [facility] Immature Gran % 1.80 % [facility] Comment: Immature granulocytes(IG's)percentage and absolute count will include metamyelocytes, myelocytes, and promyelocytes. Blood smears from CBCs yielding IG's will be scanned manually for concordance. If this scan disagrees with the automated IG or if promyelocytes are noted, a manual differential will be performed. Immature Gran Absolute 0.12(H) 0.00 - 0.04 x10(3)/mc L [facility] Blood 03/26/2023 4:00 AM EDT 03/26/2023 4:35 AM EDT Narrative Resulting Agency Comment Spec In Lab Natalee Winn MD HEMATOLOGY ORDERABLE S [facility] [place] [address] * (ABNORMAL) Hemogram (03/26/2023 4:00 AM EDT) White Blood Cell 6.7 4.0 - 9.5 x10(3)/mc L [facility] Red Blood Cell 4.00 4.00 - 5.21 x10(6)/mc L [facility] Hemoglobin 11.4(L) 11.7 - 15.5 g/dL [facility] Hematocrit 34.0(L) 35.7 - 45.8 % [facility] Mean Cell Volume 85.0 82.6 - 94.4 fL [facility] Mean Cell Hemoglobin 28.5 27.1 - 32.0 pg [facility] Mean Cell Hemoglobin Concentration 33.5 31.7 - 35.0 g/dL [facility] Platelet 296 145 - 357 x10(3)/mc L [facility] RDW Standard Deviation 46.9(H) 37.0 - 46.0 fL [facility] RDW coefficient of variation 15.5(H) 11.5 - 14.1 % [facility] Mean Platelet Volume 9.1 7.6 - 12.9 fL [facility] NRBC% auto 0.0 % [facility] NRBC Absolute 0.000 0.000 - 0.000 x10(3)/mc L [facility] Blood 03/26/2023 4:00 AM EDT 03/26/2023 4:35 AM EDT Narrative Resulting Agency Comment Spec In Lab Natalee Winn MD HEMATOLOGY ORDERABLE S [facility] [place] [address] * (ABNORMAL) Comprehensive metabolic panel (non-fasting) (03/26/2023 4:00 AM EDT) Glucose 82 65 - 199 mg/dL [facility] Comment:Diabetes: >=200 mg/d L plus symptoms Blood Urea Nitrogen 4(L) 8 - 18 mg/dL [facility] Creatinine 0.70 0.70 - 1.20 mg/dL [facility] Sodium 140 135 - 145 mmol/L [facility] Potassium 3.8 3.5 - 5.0 mmol/L [facility] Comment: Please note: ??Patients with WBC >100,000 may have falsely elevated Potassium levels. ??For accurate Potassium quantification in these patients send serum separator tube (gold top) for subsequent determinations. ??Contact the Clinical Chemistry Laboratory if there are any questions. Chloride 104 98 - 107 mmol/L [facility] Carbon Dioxide 25 22 - 31 mmol/L [facility] Anion Gap 11 5 - 15 mmol/L [facility] Calcium 8.7 8.5 - 10.5 mg/dL [facility] Protein, Total 5.7(L) 6.1 - 8.0 g/dL [facility] Albumin 3.3 3.2 - 5.2 g/dL [facility] Aspartate Aminotransferase 41(H) 0 - 30 unit/L [facility] Alanine Aminotransferase 42(H) 0 - 30 unit/L [facility] Alkaline Phosphatase 119(H) 35 - 105 unit/L [facility] Bilirubin, Total 0.6 0.2 - 1.3 mg/dL [facility] Est Glomerular Filtration Rate 109 >=60 mL/min/1. 73 m?? [facility] Comment: This patient's estimated GFR was [...] In Lab Natalee Winn MD CHEMISTRY ORDERABLES [facility] [place] [address] * Phosphorus (03/26/2023 4:00 AM EDT) Phosphorus 4.4 2.5 - 4.5 mg/dL [facility] Blood 03/26/2023 4:00 AM EDT 03/26/2023 4:35 AM EDT Narrative Resulting Agency Comment Spec In Lab Natalee Winn MD CHEMISTRY ORDERABLES [facility] [place] [address] * Magnesium (03/26/2023 4:00 AM EDT) Magnesium 0.94 0.69 - 1.07 mmol/L [facility] Blood 03/26/2023 4:00 AM EDT 03/26/2023 4:35 AM EDT Narrative Resulting Agency Comment Spec In Lab Natalee Winn MD CHEMISTRY ORDERABLES Performing Organization Address City/[facility]/ZIP Co de Phone Number [facility] [place] [address] * TSH Sassafras (03/26/2023 4:00 AM EDT) Thyroid Stimulating Hormone 0.47 0.27 - 4.20 mcIU/mL [facility] Comment: Reference Interval (mcIU/mL): Females: ??First Trimester: 0.23-3.88 ??Second Trimester: 0.22-3.90 ??Third Trimester: 0.44-4.66 Blood 03/26/2023 4:00 AM EDT 03/26/2023 4:35 AM EDT Narrative Resulting Agency Comment Spec In Lab Iram Borrero MD CHEMISTRY ORDERABLES [facility] [place] [address] * CK (03/26/2023 4:00 AM EDT) Creatine Kinase 51 0 - 160 unit/L [facility] Blood 03/26/2023 4:00 AM EDT 03/26/2023 4:35 AM EDT Narrative Resulting Agency Comment Spec In Lab Iram Borrero MD CHEMISTRY ORDERABLES Performing Organization Address [facility] Co de Phone Number [facility] [place] [address] * CRP, acute inflammation (03/26/2023 4:00 AM EDT) [facility] C-Reactive Protein 4.5 <=4.9 mg/L [facility] Blood 03/26/2023 4:00 AM EDT 03/26/2023 4:35 AM EDT Narrative Resulting Agency Comment Spec In Lab Iram Borrero MD CHEMISTRY ORDERABLES Performing Organization Address [facility] Co de Phone Number [facility] [place] [address] * Sedimentation rate (03/26/2023 4:00 AM EDT) [facility] Sedimentation Rate Automated 16 2 - 37 mm/hr [facility] Comment: Effective October 28, 2019 new capillary photometric technology has resulted in a change in reference ranges. It is recommended that each ESR result be reviewed with its own age appropriate reference range. Blood 03/26/2023 4:00 AM EDT 03/26/2023 4:35 AM EDT Narrative Resulting Agency Comment Spec In Lab Iram Borrero MD HEMATOLOGY ORDERABLE S Performing Organization Address City/[facility] Co de Phone Number [facility] [place] [address] * (ABNORMAL) Differential, Automated (03/25/2023 3:31 AM EDT) Pathologist [facility] Neutrophil % 55.0 % [facility] Neutrophil Absolute 4.60 1.70 - 6.10 x10(3)/mc L [facility] Lymph % 29.4 % [facility] Lymphocytes Abs 2.5 0.9 - 3.2 x10(3)/mc L [facility] Monocyte % 6.2 % [facility] Monocyte Abs 0.5 0.3 - 0.9 x10(3)/[facility] Eos % 5.7 % [facility] Eosinophils Abs 0.5(H) 0.0 - 0.4 x10(3)/[facility] Basophil % 0.7 % [facility] Baso Absolute 0.1 0.0 - 0.1 x10(3)/ L [facility] Immature Gran % 3.00 % [facility] Comment: Immature granulocytes(IG's)percentage and absolute count will include metamyelocytes, myelocytes, and promyelocytes. Blood smears from CBCs yielding IG's will be scanned manually for concordance. If this scan disagrees with the automated IG or if promyelocytes are noted, a manual differential will be performed. Immature Gran Absolute 0.25(H) 0.00 - 0.04 x10(3)/[facility] Blood 03/25/2023 3:31 AM EDT 03/25/2023 3:44 AM EDT Narrative Resulting Agency Comment Spec In Lab Natalee Winn MD HEMATOLOGY ORDERABLE S [facility] [place] [address] * (ABNORMAL) Hemogram (03/25/2023 3:31 AM EDT) White Blood Cell 8.4 4.0 - 9.5 x10(3)/mc L [facility] Red Blood Cell 3.77(L) 4.00 - 5.21 x10(6)/ L [facility] Hemoglobin 10.8(L) 11.7 - 15.5 g/dL [facility] Hematocrit 32.8(L) 35.7 - 45.8 % [facility] Mean Cell Volume 87.0 82.6 - 94.4 fL [facility] Mean Cell Hemoglobin 28.6 27.1 - 32.0 pg [facility] Mean Cell Hemoglobin Concentration 32.9 31.7 - 35.0 g/dL [facility] Platelet 291 145 - 357 x10(3)/mc L [facility] RDW Standard Deviation 48.2(H) 37.0 - 46.0 fL [facility] RDW coefficient of variation 15.0(H) 11.5 - 14.1 % [facility] Mean Platelet Volume 9.8 7.6 - 12.[address] [facility] NRBC% auto 0.0 % [facility] NRBC Absolute 0.000 0.000 - 0.000 x10(3)/mc L [facility] Blood 03/25/2023 3:31 AM EDT 03/25/2023 3:44 AM EDT Narrative Resulting Agency Comment Spec In Lab Natalee Winn MD HEMATOLOGY ORDERABLE S [facility] [place] [address] * (ABNORMAL) Comprehensive metabolic panel (non-fasting) (03/25/2023 3:31 AM EDT) Pathologist [facility] Glucose 94 65 - 199 mg/dL [facility] Comment:Diabetes: >=200 mg/d L plus symptoms Blood Urea Nitrogen 3(L) 8 - 18 mg/dL [facility] Creatinine 0.61(L) 0.70 - 1.20 mg/dL [facility] Sodium 138 135 - 145 mmol/L [facility] Potassium 3.4(L) 3.5 - 5.0 mmol/L [facility] Comment: Please note: ??Patients with WBC >100,000 may have falsely elevated Potassium levels. ??For accurate Potassium quantification in these patients send serum separator tube (gold top) for subsequent determinations. ??Contact the Clinical Chemistry Laboratory if there are any questions. Chloride 100 98 - 107 mmol/L [facility] Carbon Dioxide 22 22 - 31 mmol/L [facility] Anion Gap 16(H) 5 - 15 mmol/L [facility] Calcium 8.8 8.5 - 10.5 mg/dL [facility] Protein, Total 5.6(L) 6.1 - 8.0 g/dL [facility] Albumin 3.2 3.2 - 5.2 g/dL [facility] Aspartate Aminotransferase 43(H) 0 - 30 unit/L [facility] Alanine Aminotransferase 42(H) 0 - 30 unit/L [facility] Alkaline Phosphatase 115(H) 35 - 105 unit/L [facility] Bilirubin, Total 0.6 0.2 - 1.3 mg/dL [facility] Est Glomerular Filtration Rate 112 >=60 mL/min/1. 73 m?? [facility] Comment: This patient's estimated GFR was [...] In Lab Natalee Winn MD CHEMISTRY ORDERABLES [facility] [place] [address] * Phosphorus (03/25/2023 3:31 AM EDT) Phosphorus 3.4 2.5 - 4.5 mg/dL [facility] Blood 03/25/2023 3:31 AM EDT 03/25/2023 3:43 AM EDT Narrative Resulting Agency Comment Spec In Lab Natalee Winn MD CHEMISTRY ORDERABLES [facility] [place] [address] * (ABNORMAL) Magnesium (03/25/2023 3:31 AM EDT) Magnesium 0.67(L) 0.69 - 1.07 mmol/L [facility] Blood 03/25/2023 3:31 AM EDT 03/25/2023 3:43 AM EDT Narrative Resulting Agency Comment Spec In Lab Natalee Winn MD CHEMISTRY ORDERABLES [facility] [place] [address] * MRI Brain wwo Contrast (Generic) (03/24/2023 [...] who have questions please contact the health palliative care coordinator that requested your imaging first. ? Narrative 03/24/2023 12:20 PM EDT EXAMINATION: MRI BRAIN WWO CONTRAST (GENERIC), MRI ORBIT WWO CONTRAST CLINICAL HISTORY: Dizziness, non-specific dizziness, diplopia, rule out stroke? (accession [id number]), right eye weakness, diplopia, concern for possible inferior rectus infiltration or inflamation vs. possible optic neuritis (accession [id number]). Right-sided weakness, diplopia, concerning for possible inferior [...] non-specific dizziness, diplopia, rule out stroke? (accession [id number]), right eyeweakness, diplopia, concern for possible inferior rectus infiltration or inflamationvs. possible optic neuritis (accession [id number]). Right-sided weakness,diplopia, concerning for possible inferior rectus [...] patients who have questions please contactthe health palliative care coordinator that requested your imaging first. Natalee Winn MD IM MRI ORDERABLES * MRI Orbit wwo Contrast [...] who have questions please contact the health palliative care coordinator that requested your imaging first. ? Narrative 03/24/2023 12:20 PM EDT EXAMINATION: MRI BRAIN WWO CONTRAST (GENERIC), MRI ORBIT WWO CONTRAST CLINICAL HISTORY: Dizziness, non-specific dizziness, diplopia, rule out stroke? (accession [id number]), right eye weakness, diplopia, concern for possible inferior rectus infiltration or inflamation vs. possible optic neuritis (accession [id number]). Right-sided weakness, diplopia, concerning for possible inferior [...] non-specific dizziness, diplopia, rule out stroke? (accession [id number]), right eyeweakness, diplopia, concern for possible inferior rectus infiltration or inflamationvs. possible optic neuritis (accession [id number]). Right-sided weakness,diplopia, concerning for possible inferior rectus [...] patients who have questions please contactthe health palliative care coordinator that requested your imaging first. Natalee Winn MD IMG MRI ORDERABLES * (ABNORMAL) Aspartate Aminotransferase (03/24/2023 5:51 AM EDT) Aspartate Aminotransferase 54(H) 0 - 30 unit/L [facility] Blood 03/24/2023 5:51 AM EDT 03/24/2023 6:02 AM EDT Narrative Resulting Agency Comment Spec In Lab Iram Borrero MD CHEMISTRY ORDERABLES [facility] [place] [id number] * (ABNORMAL) Alanine Aminotransferase (03/24/2023 5:51 AM EDT) Alanine Aminotransferase 41(H) 0 - 30 unit/L [facility] Blood 03/24/2023 5:51 AM EDT 03/24/2023 6:02 AM EDT Narrative Resulting Agency Comment Spec In Lab Iram Borrero MD CHEMISTRY ORDERABLES Performing Organization Address City/[facility] Co de Phone Number [facility] [place] [address] * (ABNORMAL) Potassium (03/24/2023 5:51 AM EDT) Potassium 3.4(L) 3.5 - 5.0 mmol/L [facility] Comment: Please note: ??Patients with WBC >100,000 may have falsely elevated Potassium levels. ??For accurate Potassium quantification in these patients send serum separator tube (gold top) for subsequent determinations. ??Contact the Clinical Chemistry Laboratory if there are any questions. Blood 03/24/2023 5:51 AM EDT 03/24/2023 6:02 AM EDT Narrative Resulting Agency Comment Spec In Lab Iram Borrero MD [place] [address] * (ABNORMAL) Differential, Automated (03/24/2023 3:51 AM EDT) Neutrophil % 51.7 % [facility] Neutrophil Absolute 3.49 1.70 - 6.10 x10(3)/mc L [facility] Lymph % 37.0 % [facility] Lymphocytes Abs 2.5 0.9 - 3.2 x10(3)/mc L [facility] Monocyte % 4.1 % [facility] Monocyte Abs 0.3 0.3 - 0.9 x10(3)/[facility] Eos % 4.3 % [facility] Eosinophils Abs 0.3 0.0 - 0.4 x10(3)/[facility] Basophil % 0.4 % [facility] Baso Absolute 0.0 0.0 - 0.1 x10(3)/ L [facility] Immature Gran % 2.50 % [facility] Comment: Immature granulocytes(IG's)percentage and absolute count will include metamyelocytes, myelocytes, and promyelocytes. Blood smears from CBCs yielding IG's will be scanned manually for concordance. If this scan disagrees with the automated IG or if promyelocytes are noted, a manual differential will be performed. Immature Gran Absolute 0.17(H) 0.00 - 0.04 x10(3)/ L [facility] Blood 03/24/2023 3:51 AM EDT 03/24/2023 4:09 AM EDT Narrative Resulting Agency Comment Spec In Lab Natalee Winn MD HEMATOLOGY ORDERABLE S Performing Organization Address City/[facility]/[place] [address] * (ABNORMAL) Hemogram (03/24/2023 3:51 AM EDT) White Blood Cell 6.8 4.0 - 9.5 x10(3)/ L [facility] Red Blood Cell 3.69(L) 4.00 - 5.21 x10(6)/mc L [facility] Hemoglobin 10.5(L) 11.7 - 15.5 g/dL [facility] Hematocrit 31.5(L) 35.7 - 45.8 % [facility] Mean Cell Volume 85.4 82.6 - 94.4 fL [facility] Mean Cell Hemoglobin 28.5 27.1 - 32.0 pg [facility] Mean Cell Hemoglobin Concentration 33.3 31.7 - 35.0 g/dL [facility] Platelet 268 145 - 357 x10(3)/mc L [facility] RDW Standard Deviation 46.3(H) 37.0 - 46.0 fL [facility] RDW coefficient of variation 14.8(H) 11.5 - 14.1 % [facility] Mean Platelet Volume 9.2 7.6 - 12.9 fL [facility] NRBC% auto 0.0 % [facility] NRBC Absolute 0.000 0.000 - 0.000 x10(3)/mc L [facility] Blood 03/24/2023 3:51 AM EDT 03/24/2023 4:09 AM EDT Narrative Resulting Agency Comment Spec In Lab Natalee Winn MD HEMATOLOGY ORDERABLE S [facility] [place] [address] * (ABNORMAL) Comprehensive metabolic panel (non-fasting) (03/24/2023 3:51 AM EDT) Glucose 81 65 - 199 mg/dL [facility] Comment:Diabetes: >=200 mg/d L plus symptoms Blood Urea Nitrogen 5(L) 8 - 18 mg/dL [facility] Creatinine 0.65(L) 0.70 - 1.20 mg/dL [facility] Sodium 141 135 - 145 mmol/L [facility] Potassium Not Perf 3.5 - 5.0 [facility] Comment: Unable to quantitate due [...] questions. Chloride 104 98 - 107 mmol/L [facility] Carbon Dioxide 29 22 - 31 mmol/L [facility] Anion Gap 8 5 - 15 mmol/L [facility] Calcium 8.3(L) 8.5 - 10.5 mg/dL [facility] Protein, Total 5.1(L) 6.1 - 8.0 g/dL [facility] Albumin 3.0(L) 3.2 - 5.2 g/dL [facility] Aspartate Aminotransferase Not Perf 0 - 30 [facility] Comment: Unable to quantitate due to sample hemolysis. ??Sample redraw suggested. Called by: GUCCI, Read back by: Candelaria Fish, Date/Time:03/24/23 04:45. Alanine Aminotransferase Not Perf 0 - 30 [facility] Comment: Unable to quantitate due to sample hemolysis. ??Sample redraw suggested. Called by: GUCCI, Read back by: Candelaria Fish, Date/Time:03/24/23 04:45. Alkaline Phosphatase 103 35 - 105 unit/L [facility] Bilirubin, Total 0.7 0.2 - 1.3 mg/dL [facility] Est Glomerular Filtration Rate 111 >=60 mL/min/1. 73 m?? [facility] Comment: This patient's estimated GFR was [...] Winn MD CHEMISTRY ORDERABLES Performing Organization Address City/[facility]/ZIP Co de Phone Number [facility] [place] [address] * Phosphorus (03/24/2023 3:51 AM EDT) Pathologist [facility] Phosphorus 3.1 2.5 - 4.5 mg/dL [facility] Blood 03/24/2023 3:51 AM EDT 03/24/2023 4:09 AM EDT Narrative Resulting Agency Comment Spec In Lab Natalee Winn MD CHEMISTRY ORDERABLES Performing Organization Address [facility] de Phone Number [facility] [place] [address] * Magnesium (03/24/2023 3:51 AM EDT) Pathologist [facility] Magnesium 0.75 0.69 - 1.07 mmol/L [facility] Blood 03/24/2023 3:51 AM EDT 03/24/2023 4:09 AM EDT Narrative Resulting Agency Comment Spec In Lab Natalee Winn MD CHEMISTRY ORDERABLES Performing Organization Address [facility] Co de Phone Number [facility] [place] [address] * (ABNORMAL) Differential, Automated (03/23/2023 8:07 AM EDT) Pathologist [facility] Neutrophil % 79.5 % [facility] Neutrophil Absolute 7.13(H) 1.70 - 6.10 x10(3)/mc L [facility] Lymph % 15.8 % [facility] Lymphocytes Abs 1.4 0.9 - 3.2 x10(3)/mc L [facility] Monocyte % 3.5 % [facility] Monocyte Abs 0.3 0.3 - 0.9 x10(3)/mc L [facility] Eos % 0.1 % [facility] Eosinophils Abs 0.0 0.0 - 0.4 x10(3)/mc L [facility] Basophil % 0.3 % [facility] Baso Absolute 0.0 0.0 - 0.1 x10(3)/mc L [facility] Immature Gran % 0.80 % [facility] Comment: Immature granulocytes(IG's)percentage and absolute count will include metamyelocytes, myelocytes, and promyelocytes. Blood smears from CBCs yielding IG's will be scanned manually for concordance. If this scan disagrees with the automated IG or if promyelocytes are noted, a manual differential will be performed. Immature Gran Absolute 0.07(H) 0.00 - 0.04 x10(3)/ L [facility] Blood 03/23/2023 8:07 AM EDT 03/23/2023 8:20 AM EDT Narrative Resulting Agency Comment Spec In Lab Natalee Winn MD HEMATOLOGY ORDERABLE S Performing Organization Address City/State/[facility] Co de Phone Number [facility] [place] [address] * (ABNORMAL) Hemogram (03/23/2023 8:07 AM EDT) White Blood Cell 9.0 4.0 - 9.5 x10(3)/ L [facility] Red Blood Cell 3.52(L) 4.00 - 5.21 x10(6)/[facility] Hemoglobin 10.2(L) 11.7 - 15.5 g/dL [facility] Hematocrit 30.2(L) 35.7 - 45.8 % [facility] Mean Cell Volume 85.8 82.6 - 94.4 fL [facility] Mean Cell Hemoglobin 29.0 27.1 - 32.0 pg [facility] Mean Cell Hemoglobin Concentration 33.8 31.7 - 35.0 g/dL [facility] Platelet 268 145 - 357 x10(3)/ L [facility] RDW Standard Deviation 46.7(H) 37.0 - 46.0 fL [facility] RDW coefficient of variation 14.9(H) 11.5 - 14.1 % [facility] Mean Platelet Volume 9.6 7.6 - 12.9 fL [facility] NRBC% auto 0.0 % [facility] NRBC Absolute 0.000 0.000 - 0.000 x10(3)/mc L [facility] Blood 03/23/2023 8:07 AM EDT 03/23/2023 8:20 AM EDT Narrative Resulting Agency Comment Spec In Lab Natalee Winn MD HEMATOLOGY ORDERABLE S [facility] [place] [address] * (ABNORMAL) Differential, Automated (03/23/2023 3:39 AM EDT) Neutrophil % 87.3 % [facility] Neutrophil Absolute 6.54(H) 1.70 - 6.10 x10(3)/mc L [facility] Lymph % 9.7 % [facility] Lymphocytes Abs 0.7(L) 0.9 - 3.2 x10(3)/mc L [facility] Monocyte % 2.0 % [facility] Monocyte Abs 0.2(L) 0.3 - 0.9 x10(3)/mc L [facility] Eos % 0.1 % [facility] Eosinophils Abs 0.0 0.0 - 0.4 x10(3)/mc L [facility] Basophil % 0.1 % [facility] Baso Absolute 0.0 0.0 - 0.1 x10(3)/mc L [facility] Immature Gran % 0.80 % [facility] Comment: Immature granulocytes(IG's)percentage and absolute count will include metamyelocytes, myelocytes, and promyelocytes. Blood smears from CBCs yielding IG's will be scanned manually for concordance. If this scan disagrees with the automated IG or if promyelocytes are noted, a manual differential will be performed. Immature Gran Absolute 0.06(H) 0.00 - 0.04 x10(3)/mc L [facility] Blood 03/23/2023 3:39 AM EDT 03/23/2023 3:49 AM EDT Narrative Resulting Agency Comment Spec In Lab Natalee Winn MD HEMATOLOGY ORDERABLE S [facility] [place] [address] * (ABNORMAL) Hemogram (03/23/2023 3:39 AM EDT) White Blood Cell 7.5 4.0 - 9.5 x10(3)/mc L [facility] Red Blood Cell 3.72(L) 4.00 - 5.21 x10(6)/mc L [facility] Hemoglobin 10.5(L) 11.7 - 15.5 g/dL [facility] Hematocrit 31.8(L) 35.7 - 45.8 % [facility] Mean Cell Volume 85.5 82.6 - 94.4 fL [facility] Mean Cell Hemoglobin 28.2 27.1 - 32.0 pg [facility] Mean Cell Hemoglobin Concentration 33.0 31.7 - 35.0 g/dL [facility] Platelet 263 145 - 357 x10(3)/mc L [facility] RDW Standard Deviation 47.2(H) 37.0 - 46.0 fL [facility] RDW coefficient of variation 14.9(H) 11.5 - 14.1 % [facility] Mean Platelet Volume 9.4 7.6 - 12.9 fL [facility] NRBC% auto 0.0 % [facility] NRBC Absolute 0.000 0.000 - 0.000 x10(3)/ L [facility] Blood 03/23/2023 3:39 AM EDT 03/23/2023 3:49 AM EDT Narrative Resulting Agency Comment Spec In Lab Natalee Winn MD HEMATOLOGY ORDERABLE S [facility] [place] [address] * (ABNORMAL) Comprehensive metabolic panel (non-fasting) (03/23/2023 3:39 AM EDT) Glucose 111 65 - 199 mg/dL [facility] Comment:Diabetes: >=200 mg/d L plus symptoms Blood Urea Nitrogen 6(L) 8 - 18 mg/dL [facility] Creatinine 0.61(L) 0.70 - 1.20 mg/dL [facility] Sodium 139 135 - 145 mmol/L [facility] Potassium 4.3 3.5 - 5.0 mmol/L [facility] Comment: Please note: ??Patients with WBC >100,000 may have falsely elevated Potassium levels. ??For accurate Potassium quantification in these patients send serum separator tube (gold top) for subsequent determinations. ??Contact the Clinical Chemistry Laboratory if there are any questions. Chloride 103 98 - 107 mmol/L [facility] Carbon Dioxide 27 22 - 31 mmol/L [facility] Anion Gap 9 5 - 15 mmol/L [facility] Calcium 8.8 8.5 - 10.5 mg/dL [facility] Protein, Total 5.4(L) 6.1 - 8.0 g/dL [facility] Albumin 3.2 3.2 - 5.2 g/dL [facility] Aspartate Aminotransferase 39(H) 0 - 30 unit/L [facility] Alanine Aminotransferase 37(H) 0 - 30 unit/L [facility] Alkaline Phosphatase 107(H) 35 - 105 unit/L [facility] Bilirubin, Total 0.7 0.2 - 1.3 mg/dL [facility] Est Glomerular Filtration Rate 112 >=60 mL/min/1. 73 m?? [facility] Comment: This patient's estimated GFR was [...] In Lab Natalee Winn MD CHEMISTRY ORDERABLES [facility] [place] [address] * Phosphorus (03/23/2023 3:39 AM EDT) Phosphorus 3.4 2.5 - 4.5 mg/dL [facility] Blood 03/23/2023 3:39 AM EDT 03/23/2023 3:49 AM EDT Narrative Resulting Agency Comment Spec In Lab Natalee Winn MD CHEMISTRY ORDERABLES Performing Organization Address [facility] Co de Phone Number [facility] [place] [address] * Magnesium (03/23/2023 3:39 AM EDT) Magnesium 0.80 0.69 - 1.07 mmol/L [facility] Blood 03/23/2023 3:39 AM EDT 03/23/2023 3:49 AM EDT Narrative Resulting Agency Comment Spec In Lab Natalee Winn MD CHEMISTRY ORDERABLES Performing Organization Address [facility] Co de Phone Number [facility] [place] [address] * POCT Glucose (03/22/2023 9:46 PM EDT) Glucose, POC 85 65 - 199 mg/dL [facility] Comment: Supplemental ranges: <140 mg/dL before meals <180 mg/dL all other times of the day Blood 03/22/2023 9:46 PM EDT 03/22/2023 9:46 PM EDT Iram Borrero MD POINT OF CARE TEST O RDERABLES Performing Organization Address City/[facility]/ZIP Co de Phone Number [facility] [place] [address] * POCT Glucose (03/22/2023 2:32 PM EDT) Glucose, POC 90 65 - 199 mg/dL [facility] Comment: Supplemental ranges: <140 mg/dL before meals <180 mg/dL all other times of the day Blood 03/22/2023 2:32 PM EDT 03/22/2023 2:32 PM EDT Iram Borrero MD POINT OF CARE TEST O RDERABLES Performing Organization Address City/State/[facility] Co de Phone Number [facility] [place] [address] * (ABNORMAL) Differential, Automated (03/22/2023 4:17 AM EDT) Neutrophil % 50.0 % [facility] Neutrophil Absolute 4.00 1.70 - 6.10 x10(3)/mc L [facility] Lymph % 42.9 % [facility] Lymphocytes Abs 3.4(H) 0.9 - 3.2 x10(3)/mc L [facility] Monocyte % 5.1 % [facility] Monocyte Abs 0.4 0.3 - 0.9 x10(3)/mc L [facility] Eos % 1.2 % [facility] Eosinophils Abs 0.1 0.0 - 0.4 x10(3)/mc L [facility] Basophil % 0.2 % [facility] Baso Absolute 0.0 0.0 - 0.1 x10(3)/mc L [facility] Immature Gran % 0.60 % [facility] Comment: Immature granulocytes(IG's)percentage and absolute count will include metamyelocytes, myelocytes, and promyelocytes. Blood smears from CBCs yielding IG's will be scanned manually for concordance. If this scan disagrees with the automated IG or if promyelocytes are noted, a manual differential will be performed. Immature Gran Absolute 0.05(H) 0.00 - 0.04 x10(3)/mc L [facility] Blood 03/22/2023 4:17 AM EDT 03/22/2023 4:29 AM EDT Narrative Resulting Agency Comment Spec In Lab Lisandro Araya MD HEMATOLOGY ORDERABLE S [facility] [place] [address] * (ABNORMAL) Hemogram (03/22/2023 4:17 AM EDT) White Blood Cell 8.0 4.0 - 9.5 x10(3)/mc L [facility] Red Blood Cell 4.41 4.00 - 5.21 x10(6)/mc L [facility] Hemoglobin 12.6 11.7 - 15.5 g/dL [facility] Hematocrit 37.3 35.7 - 45.8 % [facility] Mean Cell Volume 84.6 82.6 - 94.4 fL [facility] Mean Cell Hemoglobin 28.6 27.1 - 32.0 pg [facility] Mean Cell Hemoglobin Concentration 33.8 31.7 - 35.0 g/dL [facility] Platelet 384(H) 145 - 357 x10(3)/mc L [facility] RDW Standard Deviation 44.9 37.0 - 46.0 fL [facility] RDW coefficient of variation 14.6(H) 11.5 - 14.1 % [facility] Mean Platelet Volume 9.5 7.6 - 12.[address] [facility] NRBC% auto 0.0 % [facility] NRBC Absolute 0.000 0.000 - 0.000 x10(3)/mc L [facility] Blood 03/22/2023 4:17 AM EDT 03/22/2023 4:29 AM EDT Narrative Resulting Agency Comment Spec In Lab Lisandro Araya MD HEMATOLOGY ORDERABLE S Performing Organization Address City/[facility]/ZIP Co de Phone Number [facility] [place] [address] * (ABNORMAL) Comprehensive metabolic panel (non-fasting) (03/22/2023 4:17 AM EDT) Glucose 101 65 - 199 mg/dL [facility] Comment:Diabetes: >=200 mg/d L plus symptoms Blood Urea Nitrogen 7(L) 8 - 18 mg/dL [facility] Creatinine 0.69(L) 0.70 - 1.20 mg/dL [facility] Sodium 140 135 - 145 mmol/L [facility] Potassium 3.4(L) 3.5 - 5.0 mmol/L [facility] Comment: Please note: ??Patients with WBC >100,000 may have falsely elevated Potassium levels. ??For accurate Potassium quantification in these patients send serum separator tube (gold top) for subsequent determinations. ??Contact the Clinical Chemistry Laboratory if there are any questions. Chloride 98 98 - 107 mmol/L [facility] Carbon Dioxide 32(H) 22 - 31 mmol/L [facility] Anion Gap 10 5 - 15 mmol/L [facility] Calcium 9.0 8.5 - 10.5 mg/dL [facility] Protein, Total 6.2 6.1 - 8.0 g/dL [facility] Albumin 3.8 3.2 - 5.2 g/dL [facility] Aspartate Aminotransferase 30 0 - 30 unit/L [facility] Alanine Aminotransferase 37(H) 0 - 30 unit/L [facility] Alkaline Phosphatase 118(H) 35 - 105 unit/L [facility] Bilirubin, Total 0.9 0.2 - 1.3 mg/dL [facility] Est Glomerular Filtration Rate 109 >=60 mL/min/1. 73 m?? [facility] Comment: This patient's estimated GFR was [...] In Lab Natalee Winn MD CHEMISTRY ORDERABLES [facility] [place] [address] * Phosphorus (03/22/2023 4:17 AM EDT) Phosphorus 3.1 2.5 - 4.5 mg/dL [facility] Blood 03/22/2023 4:17 AM EDT 03/22/2023 4:29 AM EDT Narrative Resulting Agency Comment Spec In Lab Natalee Winn MD CHEMISTRY ORDERABLES Performing Organization Address City/[facility]/ZIP Co de Phone Number [facility] [place] [address] * Magnesium (03/22/2023 4:17 AM EDT) Magnesium 0.94 0.69 - 1.07 mmol/L [facility] Blood 03/22/2023 4:17 AM EDT 03/22/2023 4:29 AM EDT Narrative Resulting Agency Comment Spec In Lab Natalee Winn MD CHEMISTRY ORDERABLES Performing Organization Address City/[facility] Co de Phone Number [facility] [place] [address] * Vitamin B12 (03/21/2023 6:00 PM EDT) Vitamin B12 612 232 - 1,245 pg/mL [facility] Blood 03/21/2023 6:00 PM EDT 03/21/2023 6:13 PM EDT Narrative Resulting Agency Comment Spec In Lab Iram Borrero MD CHEMISTRY ORDERABLES Performing Organization Address City/[facility] Co de Phone Number [facility] [place] [address] * (ABNORMAL) Folate, serum (03/21/2023 6:00 PM EDT) Folate 4.0(L) 4.8 - 24.2 ng/mL [facility] Blood 03/21/2023 6:00 PM EDT 03/21/2023 6:13 PM EDT Narrative Resulting Agency Comment Spec In Lab Iram Borrero MD CHEMISTRY ORDERABLES Performing Organization Address [facility]/ZIP Co de Phone Number [facility] [place] [address] * (ABNORMAL) Vitamin B1, whole blood (03/21/2023 6:00 PM EDT) Vit B1 Lvl Wb (MARCH) 32(L) 70 - 180 nmol/L [facility] Comment: ADDITIONAL INFORMATION This test was developed and its performance characteristics determined by [facility] in a manner consistent with CLIA requirements. This test has not been cleared or approved by the U.S. Food and Drug Administration. Test Performed by: [facility] [address] [place] [address] [employer]ilverizer: Erlin Orlando M.D. Ph.D.; CLIA# [id number] Blood 03/21/2023 6:00 PM EDT 03/22/2023 12:57 PM EDT Narrative Resulting Agency Comment Spec In Lab Iram Borrero MD LAB SEND OUT ORDERAB LES Performing Organization Address [facility] Co de Phone Number [facility] [place] [address] * CT Head wo Contrast (Generic) (03/21/2023 [...] who have questions please contact the health palliative care coordinator that requested your imaging first. ? Electronically signed by: Erlin Castorena DO [facility] ??([phone]), at 03/21/2023 12:49 PM Narrative 03/21/2023 12:49 [...] patients who have questions please contactthe health palliative care coordinator that requested your imaging first. Electronically signed by: Erlin Castorena DO [facility]([phone]), at 03/21/2023 12:49 PM Iram Borrero MD [facility] ORDER[place]LES * (ABNORMAL) Differential, Automated (03/21/2023 3:46 AM EDT) Pathologist [facility] Neutrophil % 66.3 % [facility] Neutrophil Absolute 5.44 1.70 - 6.10 x10(3)/mc L [facility] Lymph % 25.6 % [facility] Lymphocytes Abs 2.1 0.9 - 3.2 x10(3)/mc L [facility] Monocyte % 5.6 % [facility] Monocyte Abs 0.5 0.3 - 0.9 x10(3)/ L [facility] Eos % 1.1 % [facility] Eosinophils Abs 0.1 0.0 - 0.4 x10(3)/ L [facility] Basophil % 0.5 % [facility] Baso Absolute 0.0 0.0 - 0.1 x10(3)/mc L [facility] Immature Gran % 0.90 % [facility] Comment: Immature granulocytes(IG's)percentage and absolute count will include metamyelocytes, myelocytes, and promyelocytes. Blood smears from CBCs yielding IG's will be scanned manually for concordance. If this scan disagrees with the automated IG or if promyelocytes are noted, a manual differential will be performed. Immature Gran Absolute 0.07(H) 0.00 - 0.04 x10(3)/ L [facility] Blood 03/21/2023 3:46 AM EDT 03/21/2023 4:07 AM EDT Narrative Resulting Agency Comment Spec In Lab Lisandro Araya MD HEMATOLOGY ORDERABLE S [facility] [place] [address] * (ABNORMAL) Hemogram (03/21/2023 3:46 AM EDT) White Blood Cell 8.2 4.0 - 9.5 x10(3)/mc L [facility] Red Blood Cell 4.60 4.00 - 5.21 x10(6)/ L [facility] Hemoglobin 13.3 11.7 - 15.5 g/dL [facility] Hematocrit 37.6 35.7 - 45.8 % [facility] Mean Cell Volume 81.7(L) 82.6 - 94.4 fL [facility] Mean Cell Hemoglobin 28.9 27.1 - 32.[address] [facility] Mean Cell Hemoglobin Concentration 35.4(H) 31.7 - 35.0 g/dL [facility] Platelet 322 145 - 357 x10(3)/mc L [facility] RDW Standard Deviation 44.0 37.0 - 46.0 fL [facility] [facility] RDW coefficient of variation 14.8(H) 11.5 - 14.1 % [facility] Mean Platelet Volume 9.1 7.6 - 12.[address] [facility] NRBC% auto 0.0 % [facility] NRBC Absolute 0.000 0.000 - 0.000 x10(3)/mc L [facility] Blood 03/21/2023 3:46 AM EDT 03/21/2023 4:07 AM EDT Narrative Resulting Agency Comment Spec In Lab Lisandro Araya MD HEMATOLOGY ORDERABLE S [facility] [place] [address] * (ABNORMAL) Comprehensive metabolic panel (non-fasting) (03/21/2023 3:46 AM EDT) Glucose 105 65 - 199 mg/dL [facility] Comment:Diabetes: >=200 mg/d L plus symptoms Blood Urea Nitrogen 6(L) 8 - 18 mg/dL [facility] Creatinine 0.54(L) 0.70 - 1.20 mg/dL [facility] Sodium 135 135 - 145 mmol/L [facility] Potassium 3.8 3.5 - 5.0 mmol/L [facility] Comment: Please note: ??Patients with WBC >100,000 may have falsely elevated Potassium levels. ??For accurate Potassium quantification in these patients send serum separator tube (gold top) for subsequent determinations. ??Contact the Clinical Chemistry Laboratory if there are any questions. Chloride 98 98 - 107 mmol/L [facility] Carbon Dioxide 27 22 - 31 mmol/L [facility] Anion Gap 10 5 - 15 mmol/L [facility] Calcium 8.4(L) 8.5 - 10.5 mg/dL [facility] Protein, Total 6.0(L) 6.1 - 8.0 g/dL [facility] Albumin 3.6 3.2 - 5.2 g/dL [facility] Aspartate Aminotransferase 24 0 - 30 unit/L [facility] Alanine Aminotransferase 43(H) 0 - 30 unit/L [facility] Alkaline Phosphatase 116(H) 35 - 105 unit/L [facility] Bilirubin, Total 0.9 0.2 - 1.3 mg/dL [facility] Est Glomerular Filtration Rate 116 >=60 mL/min/1. 73 m?? [facility] Comment: This patient's estimated GFR was [...] In Lab Natalee Winn MD CHEMISTRY ORDERABLES [facility] [place] [address] * Phosphorus (03/21/2023 3:46 AM EDT) Phosphorus 3.0 2.5 - 4.5 mg/dL [facility] Blood 03/21/2023 3:46 AM EDT 03/21/2023 4:07 AM EDT Narrative Resulting Agency Comment Spec In Lab Natalee Winn MD CHEMISTRY ORDERABLES [facility] [place] [address] * Magnesium (03/21/2023 3:46 AM EDT) Magnesium 0.81 0.69 - 1.07 mmol/L [facility] Blood 03/21/2023 3:46 AM EDT 03/21/2023 4:07 AM EDT Narrative Resulting Agency Comment Spec In Lab Natalee Winn MD CHEMISTRY ORDERABLES Performing Organization Address [facility] Co de Phone Number [facility] [place] [address] * (ABNORMAL) IgG 4 (03/21/2023 3:46 AM EDT) IgG 4 2.7(L) 3.9 - 86.4 mg/dL [facility] Blood 03/21/2023 3:46 AM EDT 03/21/2023 4:07 AM EDT Narrative Resulting Agency Comment Spec In Lab Natalee Winn MD IMMUNOLOGY ORDERABLE S Performing Organization Address [facility] de Phone Number [facility] [place] [address] * POCT Glucose (03/21/2023 3:45 AM EDT) Glucose, POC 97 65 - 199 mg/dL [facility] Comment: Supplemental ranges: <140 mg/dL before meals <180 mg/dL all other times of the day Blood 03/21/2023 3:45 AM EDT 03/21/2023 3:45 AM EDT Iram Borrero MD POINT OF CARE TEST O RDERABLES Performing Organization Address [facility] Co de Phone Number [facility] [place] [address] * POCT Glucose (03/21/2023 12:02 AM EDT) Glucose, POC 108 65 - 199 mg/dL [facility] Comment: Supplemental ranges: <140 mg/dL before meals <180 mg/dL all other times of the day Blood 03/21/2023 12:0 2 AM EDT 03/21/2023 12:02 AM EDT Iram Borrero MD POINT OF CARE TEST O RDERABLES Performing Organization Address City/[facility]/ZIP Co de Phone Number [facility] [place] [address] * POCT Glucose (03/20/2023 9:38 PM EDT) Glucose, POC 95 65 - 199 mg/dL [facility] Comment: Supplemental ranges: <140 mg/dL before meals <180 mg/dL all other times of the day Blood 03/20/2023 9:38 PM EDT 03/20/2023 9:38 PM EDT Iram Borrero MD POINT OF CARE TEST O CHANGERAISIDRO Performing Organization Address [facility] Co de Phone Number [facility] [place] [address] * UPPER GI ENDOSCOPY (03/20/2023 10:26 AM EDT) UPPER GI ENDOSCOPY [facility] Endoscopy Procedure Date: 03/20/2023 10:26 AM ? Patient Name: Leandra Wilks ? N: [id number] ? Date of : 1980 ? Age: 43 ? Order #: [id number] ? Instrument Name: [id number] ? Procedure: ? Upper GI endoscopy Indications: [...] appearing mucosa. This was traversed. The ? [id number] limb was characterized by healthy ? appearing [...] GENERAL SURGICAL ORD ERABLES Performing Organization Address [facility] Co de Phone Number [facility] * (ABNORMAL) Hepatic Function Panel (03/20/2023 2:32 AM EDT) Protein, Total 5.8(L) 6.1 - 8.0 g/dL [facility] Albumin 3.4 3.2 - 5.2 g/dL [facility] Aspartate Aminotransferase 42(H) 0 - 30 unit/L [facility] Alanine Aminotransferase 57(H) 0 - 30 unit/L [facility] Alkaline Phosphatase 111(H) 35 - 105 unit/L [facility] Bilirubin, Total 1.0 0.2 - 1.3 mg/dL [facility] Bilirubin, Direct 0.4(H) 0.0 - 0.3 mg/dL [facility] Blood Venous Draw / Unknown 03/20/2023 2:32 AM EDT 03/20/2023 2:56 AM EDT Narrative Resulting Agency Comment Spec In Lab Dick Bower MD CHEMISTRY ORDERABLES Performing Organization Address [facility] Co de Phone Number [facility] [place] [address] * (ABNORMAL) Differential, Automated (03/20/2023 2:32 AM EDT) Neutrophil % 57.4 % [facility] Neutrophil Absolute 3.08 1.70 - 6.10 x10(3)/mc L [facility] Lymph % 32.5 % [facility] Lymphocytes Abs 1.7 0.9 - 3.2 x10(3)/mc L [facility] Monocyte % 7.1 % [facility] Monocyte Abs 0.4 0.3 - 0.9 x10(3)/ L [facility] Eos % 1.3 % [facility] Eosinophils Abs 0.1 0.0 - 0.4 x10(3)/ L [facility] Basophil % 0.6 % [facility] Baso Absolute 0.0 0.0 - 0.1 x10(3)/mc L [facility] Immature Gran % 1.10 % [facility] Comment: Immature granulocytes(IG's)percentage and absolute count will include metamyelocytes, myelocytes, and promyelocytes. Blood smears from CBCs yielding IG's will be scanned manually for concordance. If this scan disagrees with the automated IG or if promyelocytes are noted, a manual differential will be performed. Immature Gran Absolute 0.06(H) 0.00 - 0.04 x10(3)/ L [facility] Blood 03/20/2023 2:32 AM EDT 03/20/2023 2:54 AM EDT Narrative Resulting Agency Comment Spec In Lab Lisandro Araya MD HEMATOLOGY ORDERABLE S [facility] [place] [address] * (ABNORMAL) Hemogram (03/20/2023 2:32 AM EDT) White Blood Cell 5.4 4.0 - 9.5 x10(3)/mc L [facility] Red Blood Cell 4.23 4.00 - 5.21 x10(6)/mc L [facility] Hemoglobin 12.1 11.7 - 15.5 g/dL [facility] Hematocrit 35.0(L) 35.7 - 45.8 % [facility] Mean Cell Volume 82.7 82.6 - 94.4 fL [facility] Mean Cell Hemoglobin 28.6 27.1 - 32.0 pg [facility] Mean Cell Hemoglobin Concentration 34.6 31.7 - 35.0 g/dL [facility] Platelet 319 145 - 357 x10(3)/mc L [facility] RDW Standard Deviation 44.6 37.0 - 46.0 fL [facility] RDW coefficient of variation 14.7(H) 11.5 - 14.1 % [facility] Mean Platelet Volume 9.2 7.6 - 12.[address] [facility] NRBC% auto 0.0 % [facility] NRBC Absolute 0.000 0.000 - 0.000 x10(3)/mc L [facility] Blood 03/20/2023 2:32 AM EDT 03/20/2023 2:54 AM EDT Narrative Resulting Agency Comment Spec In Lab Lisandro Araya MD HEMATOLOGY ORDERABLE S Performing Organization Address [facility] Co de Phone Number [facility] [place] [address] * Phosphorus (03/20/2023 2:32 AM EDT) Phosphorus 3.6 2.5 - 4.5 mg/dL [facility] Blood 03/20/2023 2:32 AM EDT 03/20/2023 2:53 AM EDT Narrative Resulting Agency Comment Spec In Lab Natalee Winn MD CHEMISTRY ORDERABLES Performing Organization Address [facility] Co de Phone Number [facility] [place] [address] * Magnesium (03/20/2023 2:32 AM EDT) Magnesium 0.83 0.69 - 1.07 mmol/L [facility] Blood 03/20/2023 2:32 AM EDT 03/20/2023 2:53 AM EDT Narrative Resulting Agency Comment Spec In Lab Natalee Winn MD CHEMISTRY ORDERABLES Performing Organization Address [facility]/ZIP Co de Phone Number [facility] [place] [address] * (ABNORMAL) Basic Metabolic Panel (non-fasting) (03/20/2023 2:32 AM EDT) Glucose 122 65 - 199 mg/dL [facility] Comment:Diabetes: >=200 mg/d L plus symptoms Blood Urea Nitrogen 4(L) 8 - 18 mg/dL [facility] Creatinine 0.42(L) 0.70 - 1.20 mg/dL [facility] Sodium 134(L) 135 - 145 mmol/L [facility] Potassium 4.1 3.5 - 5.0 mmol/L [facility] Comment: Please note: ??Patients with WBC >100,000 may have falsely elevated Potassium levels. ??For accurate Potassium quantification in these patients send serum separator tube (gold top) for subsequent determinations. ??Contact the Clinical Chemistry Laboratory if there are any questions. Chloride 97(L) 98 - 107 mmol/L [facility] Carbon Dioxide 26 22 - 31 mmol/L [facility] Anion Gap 11 5 - 15 mmol/L [facility] Calcium 8.1(L) 8.5 - 10.5 mg/dL [facility] Est Glomerular Filtration Rate 123 >=60 mL/min/1. 73 m?? [facility] Comment: This patient's estimated GFR was [...] In Lab Iram Borrero MD CHEMISTRY ORDERABLES [facility] [place] [address] * MRI Cholangiopancreatography WO Contrast (03/19/2023 5:40 [...] who have questions please contact the health palliative care coordinator that requested your imaging first. ? Electronically signed by: Maximo Forrest DO, [facility] ([phone]), at 03/20/2023 7:59 AM Narrative 03/20/2023 7:59 [...] visceral organs, gastrointestinal tract, and vascular structures. Flight Attendant/Inflight Supervisor Images: Noncontributory. Inferior thorax: Visualized structures within [...] thevisceral organs, gastrointestinal tract, and vascular structures. Flight Attendant/Inflight Supervisor Images: Noncontributory. Inferior thorax: Visualized structures within [...] patients who have questions please contactthe health palliative care coordinator that requested your imaging first. Iram Borrero MD [facility] * (ABNORMAL) Phosphorus (03/19/2023 3:32 PM EDT) Phosphorus 2.3(L) 2.5 - 4.5 mg/dL [facility] Comment:result rechecked-nb Blood 03/19/2023 3:32 PM EDT 03/19/2023 3:53 PM EDT Narrative Resulting Agency Comment Spec In Lab Iram Borrero MD CHEMISTRY ORDERABLES [facility] [place] [address] * (ABNORMAL) Magnesium (03/19/2023 3:32 PM EDT) Magnesium 0.63(L) 0.69 - 1.07 mmol/L [facility] Blood 03/19/2023 3:32 PM EDT 03/19/2023 3:53 PM EDT Narrative Resulting Agency Comment Spec In Lab Iram Borrero MD CHEMISTRY ORDERABLES [facility] [place] [address] * (ABNORMAL) Basic Metabolic Panel (non-fasting) (03/19/2023 3:32 PM EDT) Glucose 100 65 - 199 mg/dL [facility] Comment:Diabetes: >=200 mg/d L plus symptoms Blood Urea Nitrogen 5(L) 8 - 18 mg/dL [facility] Creatinine 0.40(L) 0.70 - 1.20 mg/dL [facility] Sodium 135 135 - 145 mmol/L [facility] Potassium 4.1 3.5 - 5.0 mmol/L [facility] Comment: Please note: ??Patients with WBC >100,000 may have falsely elevated Potassium levels. ??For accurate Potassium quantification in these patients send serum separator tube (gold top) for subsequent determinations. ??Contact the Clinical Chemistry Laboratory if there are any questions. Chloride 97(L) 98 - 107 mmol/L [facility] Carbon Dioxide 26 22 - 31 mmol/L [facility] Anion Gap 12 5 - 15 mmol/L [facility] Calcium 8.6 8.5 - 10.5 mg/dL [facility] Est Glomerular Filtration Rate 124 >=60 mL/min/1. 73 m?? [facility] Comment: This patient's estimated GFR was [...] In Lab Iram Borrero MD CHEMISTRY ORDERABLES [facility] [place] [address] * XR Fluoro Barium Swallow (Double Contrast) [...] who have questions please contact the health palliative care coordinator that requested your imaging first. ? Electronically signed by: Poppy Webster MD, [facility] ([phone]), at 03/19/2023 1:29 PM Narrative 03/19/2023 1:29 [...] patients who have questions please contactthe health palliative care coordinator that requested your imaging first. Electronically signed by: Poppy Webster MD, [facility]([phone]), at 03/19/2023 1:29 PM Iram Borrero MD IMG FLUORO ORDERABLE S * POCT Glucose (03/19/2023 11:44 AM EDT) [facility] Signature Glucose, POC 93 65 - 199 mg/dL [facility] Comment: Supplemental ranges: <140 mg/dL before meals <180 mg/dL all other times of the day Blood 03/19/2023 11:4 4 AM EDT 03/19/2023 11:44 AM EDT Iram Borrero MD POINT OF CARE TEST O RDERABLES [facility] [place] [address] * POCT Glucose (03/19/2023 7:42 AM EDT) Glucose, POC 92 65 - 199 mg/dL [facility] Comment: Supplemental ranges: <140 mg/dL before meals <180 mg/dL all other times of the day Blood 03/19/2023 7:42 AM EDT 03/19/2023 7:42 AM EDT Iram Borrero MD POINT OF CARE TEST O MANDY Performing Organization Address City/[facility] Co de Phone Number [facility] [place] [address] * (ABNORMAL) Differential, Automated (03/19/2023 3:49 AM EDT) [facility] Neutrophil % 63.3 % [facility] Neutrophil Absolute 5.94 1.70 - 6.10 x10(3)/mc L [facility] Lymph % 27.2 % [facility] Lymphocytes Abs 2.6 0.9 - 3.2 x10(3)/mc L [facility] Monocyte % 7.2 % [facility] Monocyte Abs 0.7 0.3 - 0.9 x10(3)/mc L [facility] Eos % 1.5 % [facility] Eosinophils Abs 0.1 0.0 - 0.4 x10(3)/mc L [facility] Basophil % 0.3 % [facility] Baso Absolute 0.0 0.0 - 0.1 x10(3)/mc L [facility] Immature Gran % 0.50 % [facility] Comment: Immature granulocytes(IG's)percentage and absolute count will include metamyelocytes, myelocytes, and promyelocytes. Blood smears from CBCs yielding IG's will be scanned manually for concordance. If this scan disagrees with the automated IG or if promyelocytes are noted, a manual differential will be performed. Immature Gran Absolute 0.05(H) 0.00 - 0.04 x10(3)/mc L [facility] Blood 03/19/2023 3:49 AM EDT 03/19/2023 4:00 AM EDT Narrative Resulting Agency Comment Spec In Lab Dick Bower MD HEMATOLOGY ORDERABLE S [facility] [place] [address] * (ABNORMAL) Hemogram (03/19/2023 3:49 AM EDT) White Blood Cell 9.4 4.0 - 9.5 x10(3)/[facility] Red Blood Cell 4.10 4.00 - 5.21 x10(6)/[facility] Hemoglobin 12.0 11.7 - 15.5 g/dL [facility] Hematocrit 32.9(L) 35.7 - 45.8 % [facility] Mean Cell Volume 80.2(L) 82.6 - 94.4 fL [facility] Mean Cell Hemoglobin 29.3 27.1 - 32.0 pg [facility] Mean Cell Hemoglobin Concentration 36.5(H) 31.7 - 35.0 g/dL [facility] Platelet 272 145 - 357 x10(3)/ L [facility] RDW Standard Deviation 42.3 37.0 - 46.0 fL [facility] RDW coefficient of variation 14.3(H) 11.5 - 14.1 % [facility] Mean Platelet Volume 9.4 7.6 - 12.9 fL [facility] NRBC% auto 0.2 % [facility] NRBC Absolute 0.020(H) 0.000 - 0.000 x10(3)/mc L [facility] Blood 03/19/2023 3:49 AM EDT 03/19/2023 4:00 AM EDT Narrative Resulting Agency Comment Spec In Lab Dick Bower MD HEMATOLOGY ORDERABLE S Performing Organization Address City/[facility]/ZIP Co de Phone Number [facility] [place] [address] * (ABNORMAL) Phosphorus (03/19/2023 3:49 AM EDT) Phosphorus 1.0(Critic al) 2.5 - 4.5 mg/dL [facility] Comment:called by [facility]/allyn shaver by joann rouse/ 5 [phone] Blood 03/19/2023 3:49 AM EDT 03/19/2023 3:59 AM EDT Narrative Resulting Agency Comment Spec In Lab Natalee Winn MD CHEMISTRY ORDERABLES [facility] [place] [address] * Magnesium (03/19/2023 3:49 AM EDT) Magnesium 0.69 0.69 - 1.07 mmol/L [facility] Blood 03/19/2023 3:49 AM EDT 03/19/2023 3:59 AM EDT Narrative Resulting Agency Comment Spec In Lab Natalee Winn MD CHEMISTRY ORDERABLES Performing Organization Address City/[facility]/ZIP Co de Phone Number [facility] [place] [address] * (ABNORMAL) Basic Metabolic Panel (non-fasting) (03/19/2023 3:49 AM EDT) Glucose 84 65 - 199 mg/dL [facility] Comment:Diabetes: >=200 mg/d L plus symptoms Blood Urea Nitrogen 8 8 - 18 mg/dL [facility] Creatinine 0.41(L) 0.70 - 1.20 mg/dL [facility] Sodium 135 135 - 145 mmol/L [facility] Potassium 3.1(L) 3.5 - 5.0 mmol/L [facility] Comment: Please note: ??Patients with WBC >100,000 may have falsely elevated Potassium levels. ??For accurate Potassium quantification in these patients send serum separator tube (gold top) for subsequent determinations. ??Contact the Clinical Chemistry Laboratory if there are any questions. Chloride 97(L) 98 - 107 mmol/L [facility] Carbon Dioxide 27 22 - 31 mmol/L [facility] Anion Gap 11 5 - 15 mmol/L [facility] Calcium 8.7 8.5 - 10.5 mg/dL [facility] Est Glomerular Filtration Rate 124 >=60 mL/min/1. 73 m?? [facility] Comment: This patient's estimated GFR was [...] Borrero MD CHEMISTRY ORDERABLES Performing Organization Address City/[facility]/ZIP Co de Phone Number [facility] [place] [address] * POCT Glucose (03/19/2023 3:32 AM EDT) Glucose, POC 104 65 - 199 mg/dL [facility] Comment: Supplemental ranges: <140 mg/dL before meals <180 mg/dL all other times of the day Blood 03/19/2023 3:32 AM EDT 03/19/2023 3:32 AM EDT Iram Borrero MD POINT OF CARE TEST O RDERABLES [facility] [place] [address] * POCT Glucose (03/19/2023 2:38 AM EDT) Glucose, POC 91 65 - 199 mg/dL [facility] Comment: Supplemental ranges: <140 mg/dL before meals <180 mg/dL all other times of the day Blood 03/19/2023 2:38 AM EDT 03/19/2023 2:38 AM EDT Iram Borrero MD POINT OF CARE TEST O RDTESHA Performing Organization Address City/[facility] Co de Phone Number [facility] [place] [address] * POCT Glucose (03/19/2023 1:22 AM EDT) Glucose, POC 151 65 - 199 mg/dL [facility] Comment: Supplemental ranges: <140 mg/dL before meals <180 mg/dL all other times of the day Blood 03/19/2023 1:22 AM EDT 03/19/2023 1:22 AM EDT Iram Borrero MD POINT OF CARE TEST O CHANGERAISIDRO Performing Organization Address [facility] Co de Phone Number [facility] [place] [address] * POCT Glucose (03/19/2023 12:30 AM EDT) Glucose, POC 140 65 - 199 mg/dL [facility] Comment: Supplemental ranges: <140 mg/dL before meals <180 mg/dL all other times of the day Blood 03/19/2023 12:3 0 AM EDT 03/19/2023 12:30 AM EDT Iram Borrero MD POINT OF CARE TEST O RDERAISIDRO Performing Organization Address City/[facility] Co de Phone Number [facility] [place] [address] * (ABNORMAL) BLOOD GAS 2 VENOUS (03/18/2023 11:10 PM EDT) pH, Venous 7.55(H) 7.32 - 7.42 [facility] PCO2, Venous 33(L) 41 - 51 mmHg [facility] PO2, Venous 42(H) 25 - 40 mmHg [facility] Bicarbonate, Venous 27.7 mmol/L [facility] Base Excess, Venous 5.3 mmol/L [facility] Hgb Blood Gas Not Perf 11.7 - 15.5 g/dL [facility] Oxyhemoglobin, Venous Not Perf % [facility] Carboxyhemoglob in, Venous Not Perf % [facility] Comment: Nonsmokers: 0.5-1.5% COHB Smokers: Variable, but usually less than 10% Toxic: 20-30% COHB Lethal: Greater than 60% COHB Methemoglobin, Venous Not Perf <=1.5 % [facility] Na Whole Blood 133(L) 135 - 145 mmol/L [facility] LABORATORY K Whole Blood 3.6 3.5 - 5.0 mmol/L [facility] Comment: Please note: Patients with WBC >100,000 may have falsely elevated Potassium levels. Contact the Clinical Chemistry Laboratory if there are any questions. ICa Whole Blood 1.09(L) 1.15 - 1.33 mmol/L [facility] Comment: Note: ??Total bilirubin higher than 20 mg/dL may lead to falsely low ionized calcium. CL Whole Blood 95(L) 98 - 107 mmol/L [facility] Gluc Whole Bld 144 65 - 199 mg/dL [facility] Comment:Diabetes: >=200 mg/d L plus symptoms Lactate WB 1.7 0.5 - 2.2 mmol/L [facility] Blood Gas Source Venous [facility] Blood 03/18/2023 11:1 0 PM EDT 03/18/2023 11:10 PM EDT Iram Borrero MD POINT OF CARE TEST O RDERABLES [facility] [place] [address] * (ABNORMAL) Beta Hydroxybutyrate (03/18/2023 11:08 PM EDT) Beta-hydroxybuturat e 1.33(H) 0.00 - 0.30 mmol/L [facility] Comment: This test has not been cleared by the US FDA. Performance characteristics of this test were determined by [facility] in accordance with CLIA requirements. This laboratory is qualified under CLIA to perform high-complexity testing. Blood 03/18/2023 11:0 8 PM EDT 03/18/2023 11:14 PM EDT Narrative Resulting Agency Comment Spec In Lab Iram Borrero MD CHEMISTRY ORDERABLES [facility] [place] [address] * (ABNORMAL) Basic Metabolic Panel (non-fasting) (03/18/2023 11:08 PM EDT) Glucose 144 65 - 199 mg/dL [facility] Comment:Diabetes: >=200 mg/d L plus symptoms Blood Urea Nitrogen 11 8 - 18 mg/dL [facility] Creatinine 0.40(L) 0.70 - 1.20 mg/dL [facility] Sodium 134(L) 135 - 145 mmol/L [facility] Potassium 3.3(L) 3.5 - 5.0 mmol/L [facility] Comment: Please note: ??Patients with WBC >100,000 may have falsely elevated Potassium levels. ??For accurate Potassium quantification in these patients send serum separator tube (gold top) for subsequent determinations. ??Contact the Clinical Chemistry Laboratory if there are any questions. Chloride 95(L) 98 - 107 mmol/L [facility] Carbon Dioxide 26 22 - 31 mmol/L [facility] Anion Gap 13 5 - 15 mmol/L [facility] Calcium 8.6 8.5 - 10.5 mg/dL [facility] Comment:reult rechecked-KS Est Glomerular Filtration Rate 124 >=60 mL/min/1. 73 m?? [facility] Comment: This patient's estimated GFR was [...] Borrero MD CHEMISTRY ORDERABLES Performing Organization Address City/[facility]/ZIP Co de Phone Number [facility] [place] [address] * POCT Glucose (03/18/2023 10:50 PM EDT) Glucose, POC 134 65 - 199 mg/dL [facility] Comment: Supplemental ranges: <140 mg/dL before meals <180 mg/dL all other times of the day Blood 03/18/2023 10:5 0 PM EDT 03/18/2023 10:50 PM EDT Iram Borrero MD POINT OF CARE TEST O RDERABLES Performing Organization Address [facility] Co de Phone Number [facility] [place] [address] * EKG 12 Lead (03/18/2023 9:35 PM EDT) Ventricular rate 95 BPM MUSE SYSTEM Atrial Rate 95 BPM MUSE SYSTEM P-R Interval 140 ms MUSE SYSTEM QRS Duration 90 ms MUSE SYSTEM Q-T Interval 426 ms MUSE SYSTEM QTC Calculated (Bezet) 535 ms MUSE SYSTEM Calculated P [place] 25 degrees MUSE SYSTEM Calculated R [place] 0 degrees MUSE SYSTEM Calculated T [place] -86 degrees MUSE SYSTEM INTERPRETATION Normal sinus rhythm Left ventricular hypertrophy with repolarization abnormality ( R in aVL ) Abnormal ECG When compared with ECG of 18-MAR-2023 20:24, (unconfirmed) No significant change was found Confirmed by MD Babita, Andres ([id number]) on 03/19/2023 2:23:56 PM MUSE SYSTEM 03/18/2023 9:35 PM EDT 03/19/2023 2:23 PM EDT Iram Borrero MD ECG ORDERABLES Performing Organization Address [facility] Co de Phone Number MUSE SYSTEM * EKG 12 Lead (03/18/2023 8:24 PM EDT) [facility] Ventricular rate 91 BPM MUSE SYSTEM Atrial Rate 91 BPM MUSE SYSTEM P-R Interval 144 ms MUSE SYSTEM QRS Duration 94 ms MUSE SYSTEM Q-T Interval 430 ms MUSE SYSTEM QTC Calculated (Bezet) 528 ms MUSE SYSTEM Calculated P [place] 27 degrees MUSE SYSTEM Calculated R [place] 2 degrees MUSE SYSTEM Calculated T [place] -60 degrees MUSE SYSTEM INTERPRETATION Normal sinus rhythm Left ventricular hypertrophy with repolarization abnormality ( R in aVL , [place] product ) Prolonged QT Abnormal ECG When compared with ECG of 05-NOV-2007 13:07, T wave inversion more evident in Inferior leads T wave inversion now evident in Anterolateral leads QT has lengthened Confirmed by MD Babita, Andres ([id number]) on 03/19/2023 2:23:40 PM MUSE SYSTEM 03/18/2023 8:24 PM EDT 03/19/2023 2:23 PM EDT Salvador Blum MD ECG ORDERABLES Performing Organization Address City/[facility]/ZIP Co de Phone Number MUSE SYSTEM * Lactate, whole blood, send to lab ([facility] (03/18/2023 5:01 PM EDT) [facility] Lactate WB 1.6 0.5 - 2.2 mmol/L [facility] Blood 03/18/2023 5:01 PM EDT 03/18/2023 5:10 PM EDT Narrative Resulting Agency Comment Spec In Lab Pito Mclaughlin MD CHEMISTRY ORDERABL ES [facility] [place] [address] * (ABNORMAL) Beta Hydroxybutyrate (03/18/2023 5:01 PM EDT) [facility] Beta-hydroxybuturat e 3.29(H) 0.00 - 0.30 mmol/L [facility] Comment: This test has not been cleared by the [place] FDA. Performance characteristics of this test were determined by [facility] in accordance with CLIA requirements. This laboratory is qualified under CLIA to perform high-complexity testing. Blood 03/18/2023 5:01 PM EDT 03/18/2023 5:11 PM EDT Narrative Resulting Agency Comment Spec In Lab Pito Mclaughlin MD CHEMISTRY ORDERABL ES Performing Organization Address City/[facility]/[place] [address] * (ABNORMAL) Differential, Automated (03/18/2023 3:49 PM EDT) Neutrophil % 78.5 % [facility] Neutrophil Absolute 7.98(H) 1.70 - 6.10 x10(3)/mc L [facility] Lymph % 15.0 % [facility] Lymphocytes Abs 1.5 0.9 - 3.2 x10(3)/mc L [facility] Monocyte % 5.3 % [facility] Monocyte Abs 0.5 0.3 - 0.9 x10(3)/mc L [facility] Eos % 0.2 % [facility] Eosinophils Abs 0.0 0.0 - 0.4 x10(3)/mc L [facility] Basophil % 0.3 % [facility] Baso Absolute 0.0 0.0 - 0.1 x10(3)/mc L [facility] Immature Gran % 0.70 % [facility] Comment: Immature granulocytes(IG's)percentage and absolute count will include metamyelocytes, myelocytes, and promyelocytes. Blood smears from CBCs yielding IG's will be scanned manually for concordance. If this scan disagrees with the automated IG or if promyelocytes are noted, a manual differential will be performed. Immature Gran Absolute 0.07(H) 0.00 - 0.04 x10(3)/mc L [facility] Blood 03/18/2023 3:49 PM EDT 03/18/2023 4:03 PM EDT Narrative Resulting Agency Comment Spec In Lab Ivan GAINES HEMATOLOGY ORDERABLE S Performing Organization Address City/[facility]/[place] [address] * (ABNORMAL) Hemogram (03/18/2023 3:49 PM EDT) White Blood Cell 10.2(H) 4.0 - 9.5 x10(3)/mc L [facility] Red Blood Cell 4.99 4.00 - 5.21 x10(6)/mc L [facility] Hemoglobin 14.4 11.7 - 15.5 g/dL [facility] Hematocrit 40.5 35.7 - 45.8 % [facility] Mean Cell Volume 81.2(L) 82.6 - 94.4 fL [facility] Mean Cell Hemoglobin 28.9 27.1 - 32.0 pg [facility] Mean Cell Hemoglobin Concentration 35.6(H) 31.7 - 35.0 g/dL [facility] Platelet 350 145 - 357 x10(3)/mc L [facility] RDW Standard Deviation 42.1 37.0 - 46.0 fL [facility] RDW coefficient of variation 14.4(H) 11.5 - 14.1 % [facility] Mean Platelet Volume 9.1 7.6 - 12.[address] [facility] NRBC% auto 0.0 % [facility] NRBC Absolute 0.000 0.000 - 0.000 x10(3)/mc L [facility] Blood 03/18/2023 3:49 PM EDT 03/18/2023 4:03 PM EDT Narrative Resulting Agency Comment Spec In Lab Ivan GAINES HEMATOLOGY ORDERABLE S [facility] [place] [address] * Prealbumin (03/18/2023 3:49 PM EDT) Prealbumin 21 20 - 40 mg/dL [facility] Comment: Prealbumin levels are generally lower in the pediatric population; adult concentrations are usually attained near puberty. Blood 03/18/2023 3:49 PM EDT 03/18/2023 4:03 PM EDT Narrative Resulting Agency Comment Spec In Lab Pito Mclaughlin MD CHEMISTRY ORDERABL ES Performing Organization Address [facility]/ZIP Co de Phone Number [facility] [place] [address] * (ABNORMAL) Lipase (03/18/2023 3:49 PM EDT) Lipase 156(H) 0 - 60 unit/L [facility] Blood 03/18/2023 3:49 PM EDT 03/18/2023 4:03 PM EDT Narrative Resulting Agency Comment Spec In Lab Pito Mclaughlin MD CHEMISTRY ORDERABL ES Performing Organization Address [facility] Co de Phone Number [facility] [place] [address] * (ABNORMAL) Hepatic Function Panel (03/18/2023 3:49 PM EDT) Protein, Total 7.6 6.1 - 8.0 g/dL [facility] Albumin 4.4 3.2 - 5.2 g/dL [facility] Aspartate Aminotransferase 74(H) 0 - 30 unit/L [facility] Alanine Aminotransferase 87(H) 0 - 30 unit/L [facility] Alkaline Phosphatase 152(H) 35 - 105 unit/L [facility] Bilirubin, Total 1.4(H) 0.2 - 1.3 mg/dL [facility] Bilirubin, Direct 0.6(H) 0.0 - 0.3 mg/dL [facility] Blood 03/18/2023 3:49 PM EDT 03/18/2023 4:03 PM EDT Narrative Resulting Agency Comment Spec In Lab Pito Mclaughlin MD CHEMISTRY ORDERABL ES Performing Organization Address [facility] Co de Phone Number [facility] [place] [address] * (ABNORMAL) Basic Metabolic Panel (non-fasting) (03/18/2023 3:49 PM EDT) Glucose 113 65 - 199 mg/dL [facility] Comment:Diabetes: >=200 mg/d L plus symptoms Blood Urea Nitrogen 14 8 - 18 mg/dL [facility] Creatinine 0.47(L) 0.70 - 1.20 mg/dL [facility] Sodium 138 135 - 145 mmol/L [facility] Potassium 3.0(Criti royal) 3.5 - 5.0 mmol/L [facility] Comment: Result called by ANGELA and read back by Anjum Burroughs at 03/18/2023 4721 Please note: ??Patients with WBC >100,000 may have falsely elevated Potassium levels. ??For accurate Potassium quantification in these patients send serum separator tube (gold top) for subsequent determinations. ??Contact the Clinical Chemistry Laboratory if there are any questions. Chloride 92(L) 98 - 107 mmol/L [facility] Carbon Dioxide 28 22 - 31 mmol/L [facility] Anion Gap 18(H) 5 - 15 mmol/L [facility] Calcium 9.7 8.5 - 10.5 mg/dL [facility] Est Glomerular Filtration Rate 120 >=60 mL/min/1. 73 m?? [facility] Comment: This patient's estimated GFR was [...] Lab Pito Mclaughlin MD CHEMISTRY ORDERABL ES [facility] [place] [address] * (ABNORMAL) Urine culture (03/18/2023 1:52 PM EDT) Urine Culture Greater than 100,000 cfu/ml Escherichia coli(A) [facility] Organism Escherichia coli(A) [facility] Clean Catch Urine 03/18/2023 1:52 PM [...] - GENER AL ORDERABLES Performing Organization Address City/[facility] Co de Phone Number [facility] [place] [address] * (ABNORMAL) Urinalysis Microscopic Exam (03/18/2023 1:52 PM EDT) RBC, Urine 15(H) 0 - 4 /HPF [facility] WBC, Urine 13(H) 0 - 5 /HPF [facility] Bacteria, Urine Many(A) None /HPF [facility] Squamous Epithelial Cells Raw Data, Urine >36(H) <=4 /HPF [facility] Clean Catch Urine 03/18/2023 1:52 PM EDT 03/19/2023 8:39 AM EDT Narrative Resulting Agency Comment Spec In Lab Ivan GAINES URINE ORDERABLES [facility] [place] [address] * (ABNORMAL) Urinalysis with reflex Culture (03/18/2023 1:52 PM EDT) Glucose, Urine Dipstick Negative Negative mg/dL [facility] Protein, Urine Dipstick 100(A) Negative mg/dL [facility] Bilirubin, Urine Dipstick Large(A) Negative mg/dL [facility] Comment: Clinical correlation required for positive Urine Bilirubin results as false positive may occur with some drugs and drug related products. If a false positive is suspected a serum total bilirubin should be considered if clinically indicated. Urobilinogen, Urine Dipstick Normal Normal mg/dL [facility] pH, Urn (dipstick) 7.0 5.0 - 8.0 [facility] Blood, Urine Dipstick Negative Negative mg/dL [facility] Ketone, Urine Dipstick >=80(Critica l) Negative mg/dL [facility] Comment: Urinalysis result NOT critical without a combination of Glucose greater than or equal to 500 mg/dL AND Ketones greater than or equal to 80 mg/dL Nitrite, Urine Dipstick Positive(A) Negative [facility] Leukocytes, Urine Dipstick Small(A) Negative mcL [facility] Appearance, Urine Dipstick Turbid(A) Clear [facility] Specific [place] Urine Automated 1.027 1.005 - 1.030 [facility] Color, Urine Dipstick [place](A) Yellow [facility] Reflex to Culture Yes [facility] Clean Catch Urine 03/18/2023 1:52 PM EDT 03/18/2023 1:52 PM EDT Narrative Resulting Agency Comment Spec In Lab Pito Mclaughlin MD URINE ORDERABLES [facility] [place] [address] * Film Library- Storage Only CT Abdomen & Pelvis (03/13/2023 12:00 AM EDT) Narrative Dicom, Auditing User - 03/18/2023 8:00 PM EDT This exam is auto-finalizing. It's purpose is for storage only. Iram Borrero MD [facility] ORD ERABLES * Film Library- Storage Only Ultrasound Study (02/25/2023 12:00 AM EDT) Narrative Dicom, Auditing User - 03/18/2023 7:58 PM EDT This exam is auto-finalizing. It's purpose is for storage only. Iram Borrero MD [facility]M [facility]RARY ORD ERABLES documented in this [...] Oral, 3 TIMES DAILY PRN, Starting on Tu03/19/23 at 0104, Until Sat03/29/23 at 1536, Muscle [...] Jayshree Cerna, MIKE)1348 (Given - Provider: Trinidad Chaves RN)2114 (Given - Provider: Jessica Nguyễn, MIKE) 0628 (Given - Provider: Jessica Nguyễn, MIKE)1541 (Given - Provider: Danni Duran LPN - Comment: pt off floor)2142 (Given - Provider: Cl Goodman, MIKE) 0648 (Given - Provider: Cl Goodman RN) [...] RN) 0942 (Given - Provider: Elva Ronquillo LPN)2143 (Given - Provider: Cl Goodman RN) 0900 [...] Chaves RN)1807 (Given - Provider: Mary Jimenes LPN)211 (Given - Provider: Jessica Nguyễn RN) 0627 [...] Buccal, EVERY 30 MIN PRN, Starting on 03/18/23 [...] Routine documented in this encounter Care Teams Muskrat Trapper Relationship Specialty Start Date End Date Sree High, BRYANNA [address] [place] [address] PCP - General Family Medicine 12/19/22 documented as of this encounter
--- OUTSIDE RECORDS SUMMARY | 2024-09-02 16:15 | XMS_ITS | Encounter Summary ---
Author Organization [facility] Address [facility] Kris [facility] [place] [address] Care Team Providers Care Editor Dictionary Name Role Phone Sree High APRN Primary Care Provider +1- [phone] Encounter Details Date Type Department Care Team (Late st Contact Info) Description 03/05/2023 4:56 PM EDT Anesthesia [place] [id number] Carleen Esqueda MD [facility] [place] [address] Anesthesia Record Procedure Summary Procedure Name Responsible [...] 1521; metacarpal vein (top of hand), left; [id number] catheter system; Anatomical Landmarks; 22 gauge; Giovanna [...] Procedure Summary Date: 03/05/23 Room / Location: [facility] OR [address] [place] [address] MAIN OR Anesthesia Start: 1655 Anesthesia Stop: 1738 Procedure: EGD, UPPER GI ENDOSCOPY (WRVU 2.09) (Mouth) Diagnosis: Dysphagia, unspecified type (Dysphagia) Surgeons: Iram Borrero MD Responsible Provider: Carleen Esqueda MD Anesthesia Type: MAC ASA Status: 3 All Anesthesia Providers: Anesthesiologist: Carleen Esqueda MD AUTOMOTIVE INTERNET SALES CONSULTANT: Rachel Gill CRNA Vitals Value Taken Time [...] (WRVU 29.4) performed by Iram Borrero MDat [facility] MAIN OR ??? PRO UPPER GI ENDOSCOPY, DIAGNOSTIC N/A 01/10/2023 EGD, UPPER GI ENDOSCOPY performed by Iram Borrero MD at [facility] MAIN OR Social History Tobacco [...] to 33) now s/p Renato-en-Y gastric bypass (01/10/23-[place]) with post [...] with patient and spouse. Plan discussed with AUTOMOTIVE INTERNET SALES CONSULTANT and attending. Anesthesia Screening documented in this [...] psychologist to work on eating behaviors Health Delivery Helper is sending hand-outs with exercises for [...] mg documented in this encounter Care Teams Editor Dictionary Relationship Specialty Start Date End Date Sree High APRN [address] [place] [address] PCP - General Family Medicine 12/19/22 documented as of this encounter
--- OUTSIDE RECORDS SUMMARY | 2024-09-02 16:15 | XMS_ITS | Encounter Summary ---
Author Organization [facility] Address [facility] [place] [address] Care Team Providers Care Drill Grinder Name Role Phone Sree High APRN Primary Care Provider +1- [phone] Encounter Details Date Type Department Care Team (Late st Contact Info) Description 03/05/2023 4:32 PM EDT - 03/05/2023 5:43 PM EDT Surgery [place] [id number] Iram Borrero MD [facility] [place] [address] EGD, UPPER GI ENDOSCOPY (WRVU 2.09) Social [...] 6-8 hours after your surgery, please call [phone] before 5 PM weekdays and [phone] after 5 PM and weekends to discuss [...] Doctor for: The number for questions is [phone] before 5 PM weekdays and [phone] after 5 PM and weekends. Follow-up: Please call [phone] (clinic number for appointments) to confirm or change the date and time ofyour appointment. You should keep your appointment for the swallow study on 03/12/2023 which will help us further evaluate your stomach and intestine. Future Appointments Date Time Provider Department Center 03/12/2023 3:00 PM [facility] DX ROOM 5 Xray [facility] Rad 03/20/2023 12:10 PM Iram Borrero MD [facility] [place] [facility] [place] 04/26/2023 9:30 AM Anita Aviles APRN [facility] [place] [place] documented in this encounter Medications at Time [...] MD - 03/05/2023 4:50 PM EDT [facility] History and Physical History of [...] (WRVU 29.4) performed by Iram Borrero MDat [facility] MAIN OR ??? PRO UPPER GI ENDOSCOPY, DIAGNOSTIC N/A 01/10/2023 EGD, UPPER GI ENDOSCOPY performed by Iram Borrero MD at [facility] MAIN OR Medications: No current facility-administered medications [...] Borrero MD General Surgery Minimally Invasive Surgery [phone] documented in this encounter Miscellaneous Notes * Op Note - Iram Borrero MD - 03/05/2023 5:05 PM EDT [facility] [place] Operative Note Patient Name: Leandra Wilks : [id number] MR#: [id number] Case Date: 03/05/2023 Surgeon: Surgeon(s) and Role: [...] ulcer. The scope was advanced into her anhtony limb around 20-30cm and appeared widely patent. [...] psychologist to work on eating behaviors Health Scouring Machine Operator is sending hand-outs with exercises [...] Associated Diagnosis Comments Upper GI Endoscopy, Diagnostic (24248) Yes 03/05/2023 4:56 PM EDT Dysphagia, unspecified [...] Routine documented in this encounter Care Teams Drill Grinder Relationship Specialty Start Date End Date Sree High APRN [address] [place] [address] PCP - General Family Medicine 12/19/22 documented as of this encounter
--- OUTSIDE RECORDS SUMMARY | 2024-09-02 16:16 | XMS_ITS | Encounter Summary ---
Author Organization [facility] Address [facility] [place] [address] Care Team Providers Care Personnel Analyst Name Role Phone Sree High APRN Primary Care Provider +1- [phone] Encounter Details Date Type Department Care Team (Late st Contact Info) Description 01/17/2023 12:05 AM EST Ancillary Procedure Radiology Library at [place] [phone] Sree High APRN [address] [place] [address] Social History Tobacco Use Types Packs/Day Years [...] On track(2021 10:28 AM EST) Jill Colmenares, VALIDATION INTERN Note: Mindfulness/deep breathing practice to reduce cortisol -try for at least 10 minutes a day -try an ap such as headspace I have referred you to our psychologist to work on eating behaviors Health Gelatin Dynamite Packing Operator is sending hand-outs with exercises for mindful eating, The Pause/STOP and Urge surfing. Patient will review and try implementing some behaviors before we meet again. movement Lifestyle On track(2021 10:29 AM EST) Jill Colmenares, VALIDATION INTERN Note: Exercise goal is 150 min [...] is for storage only. Sree High APRN [facility] FILM LIBRARY O RDERABLES [place], [place] documented in this encounter Visit Diagnoses Not on filedocumented in this encounter Care Teams Personnel Analyst Relationship Specialty Start Date End Date Sree High APRN [address] [place] [address] PCP - General Family Medicine 12/19/22 documented as of this encounter
--- OUTSIDE RECORDS SUMMARY | 2024-09-02 16:16 | XMS_ITS | Encounter Summary ---
Author Organization [facility] [place] [address] Care Team Providers Care Internet Systems Administrator Name Role Phone Sree High APRN Primary Care Provider +1- [phone] Encounter Details Date Type Department Care Team (Late st Contact Info) Description 02/11/2023 2:00 PM EDT TH Visit (TeleHealth) [place] [address] Anni Varela APRN [facility] [place] [address] [facility] [place] [address] S/P gastric bypass Social History Tobacco Use [...] note were not included[place] [address] ? BARIATRIC SURGERY VIRTUAL NOTE ?? 1. [...] on telehealth call. Pt tried bit of [place] yogurt, reported epigastric pain and nausea with [...] ?? Surgery ??01/22/23 ? 1.5 weeks post-op ([email or web address], no weight reported) ??01/29/23 207#?? 26%?? 35.5?? 3.5 wks post-op 02/11/23 1 month post-op (not discussed) [place] Body Weight (based on BMI of 25):??146# [...] on telehealth call. Pt tried bit of [place] yogurt, reported epigastric pain and nausea with [...] note were not included. [place] [address] BARIATRIC SURGERY VIRTUAL NOTE 1. Reason/purpose for [...] review, the patient encounter, and documentation. Subjective: Leadnra Wilks is s/p laparoscopic Saúl-en-Y gastric bypass [...] Endorses abdominal pain, nausea, no recent vomiting. CIRCUIT TESTER: s/p hyst. Health Habits: Tobacco: Never. ETOH: [...] patient's review via e- Anni Varela APRN [facility] Bariatric Surgery Program RECOMMENDED BARIATRIC [...] the Bariatric Surgery Program, General Surgery Clinic, [facility], or fax [phone] documented in this encounter Plan of Treatment Scheduled Procedures Name Priority Associated Diagnoses Date/Ti me COLONOSCOPY, DIAGNOSTIC (WRV U 3.26) Biliary stricture Screening for colon cancer documented as of this encounter Goals Goal Patient Goal Type Associated Problems Recent Progress Patient-Stated? Author meal timing/food choices Lifestyle On track(2021 10:30 AM EST) No Jill Faoroq APRN Note: Meal timing: consider eating within [...] On track(2021 10:28 AM EST) Jill Colmenares, HOOD MAKER Note: Mindfulness/deep breathing practice to reduce cortisol -try for at least 10 minutes a day -try an ap such as headspace I have referred you to our psychologist to work on eating behaviors Health Floor Trader is sending hand-outs with exercises for mindful eating, The Pause/STOP and Urge surfing. Patient will review and try implementing some behaviors before we meet again. movement Lifestyle On track(2021 10:29 AM EST) Jill Colmenares, HOOD MAKER Note: Exercise goal is 150 min a week, just do some walking, even [address] to start Recommend resistance training 3 times a week -can use [email or web address] Nutrition - 09/26/22 Lifestyle On track(2021 10:29 [...] status documented in this encounter Care Teams Internet Systems Administrator Relationship Specialty Start Date End Date Sree High APRN [address] [place] [address] PCP - General Family Medicine 12/19/22 documented as of this encounter
--- OUTSIDE RECORDS SUMMARY | 2024-09-02 16:16 | XMS_ITS | Encounter Summary ---
Author Organization [facility] [place] [address] Care Team Providers Care Cracking Unit Operator Name Role Phone Sree High APRN Primary Care Provider +1- [phone] Encounter Details Date Type Department Care Team (Late st Contact Info) Description 01/21/2023 Telephone [place] [address] Anni Varela COIL WINDER [facility] [place] [address] Social History Tobacco Use Types Packs/Day Years [...] psychologist to work on eating behaviors Health Asphalt Patcher is sending hand-outs with exercises for mindful [...] on filedocumented in this encounter Care Teams Cracking Unit Operator Relationship Specialty Start Date End Date Sree High APRN [address] [place] [address] PCP - General Family Medicine 12/19/22 documented as of this encounter
--- OUTSIDE RECORDS SUMMARY | 2024-09-02 16:16 | XMS_ITS | Encounter Summary ---
Author Organization [facility] Address [facility] [place] [address] Care Team Providers Care Ultrasound Spec Name Role Phone Sree High APRN Primary Care Provider +1- [phone] Encounter Details Date Type Department Care Team (Late st Contact Info) Description 01/28/2023 Telephone [place] [address] Anni Varela PSYCHIATRY TEACHER [facility] [place] [address] Social History Tobacco Use Types Packs/Day Years [...] psychologist to work on eating behaviors Health Blower Blast Furnace is sending hand-outs with exercises for mindful [...] filedocumented in this encounter Care Teams Ultrasound Spec Relationship Specialty Start Date End Date Sree High APRN [address] [place] [address] PCP - General Family Medicine 12/19/22 documented as of this encounter
--- OUTSIDE RECORDS SUMMARY | 2024-09-02 16:16 | XMS_ITS | Encounter Summary ---
Author Organization [facility] Address [facility] [place] [address] Care Team Providers Care Electrical Sign Servicer Name Role Phone Sree High APRN Primary Care Provider +1- [phone] Encounter Details Date Type Department Care Team (Late st Contact Info) Description 02/28/2023 Telephone [place] [address] Anni Varela APRN [facility] [place] [address] Social History Tobacco Use Types Packs/Day Years [...] Wilks Sent: 02/28/2023 2:56 PM EDT To: [facility] Nurse Subject: Struggling Hi! I [...] On track(2021 10:28 AM EST) Jill Colmenares, BANK TELLER MACHINE MECHANIC Note: Mindfulness/deep breathing practice to reduce cortisol -try for at least 10 minutes a day -try an ap such as headspace I have referred you to our psychologist to work on eating behaviors Health Cabinet Abrasive Sandblaster is sending hand-outs with exercises for mindful eating, The Pause/STOP and Urge surfing. Patient will review and try implementing some behaviors before we meet again. movement Lifestyle On track(2021 10:29 AM EST) Jill Colmenares, BANK TELLER MACHINE MECHANIC Note: Exercise goal is 150 min [...] on filedocumented in this encounter Care Teams Electrical Sign Servicer Relationship Specialty Start Date End Date Sree High APRN [address] [facility] [address] [place] [address] PCP - General Family Medicine 12/19/22 documented as of this encounter
--- OUTSIDE RECORDS SUMMARY | 2024-09-02 16:16 | XMS_ITS | Encounter Summary ---
Author Organization [facility] Address [facility] [place] [address] Care Team Providers Care Rail Filler Name Role Phone Sree High APRN Primary Care Provider +1- [phone] Encounter Details Date Type Department Care Team (Late st Contact Info) Description 03/01/2023 Orders Only [place] [address] Iram Borrero MD [facility] [place] [address] Dysphagia, unspecified type Social History Tobacco Use [...] On track(2021 10:28 AM EST) Jill Colmenares, YARD DRIVER Note: Mindfulness/deep breathing practice to reduce cortisol -try for at least 10 minutes a day -try an ap such as headspace I have referred you to our psychologist to work on eating behaviors Health Awning Frame Maker is sending hand-outs with exercises for mindful eating, The Pause/STOP and Urge surfing. Patient will review and try implementing some behaviors before we meet again. movement Lifestyle On track(2021 10:29 AM EST) Jill Colmenares, YARD DRIVER Note: Exercise goal is 150 min [...] type documented in this encounter Care Teams Rail Filler Relationship Specialty Start Date End Date Sree High, BRYANNA [address] [facility] [address] [place] [address] PCP - General Family Medicine 12/19/22 documented as of this encounter
--- OUTSIDE RECORDS SUMMARY | 2024-09-02 16:16 | XMS_ITS | Encounter Summary ---
Author Organization [facility] Address [facility] [place] [address] Care Team Providers Care Food Service Aide Name Role Phone Sree High APRN Primary Care Provider +1- [phone] Encounter Details Date Type Department Care Team (Late st Contact Info) Description 01/30/2023 Telephone [place] [address] Anni Varela APRN [facility] [place] [address] Social History Tobacco Use Types Packs/Day Years [...] psychologist to work on eating behaviors Health Career Development Consultant is sending hand-outs with exercises for mindful [...] on filedocumented in this encounter Care Teams Food Service Aide Relationship Specialty Start Date End Date Sree High APRN [address] [place] [address] PCP - General Family Medicine 12/19/22 documented as of this encounter
--- OUTSIDE RECORDS SUMMARY | 2024-09-02 16:16 | XMS_ITS | Encounter Summary ---
Author Organization [facility] [place] [address] Care Team Providers Care Cleat Layer Name Role Phone Sree High APRN Primary Care Provider +1- [phone] Encounter Details Date Type Department Care Team (Late st Contact Info) Description 02/18/2023 Telephone [place] [address] Anni Varela MIXER DRY FOOD PRODUCTS [facility] [place] [address] Social History Tobacco Use Types Packs/Day Years [...] Back Sent: 02/18/2023 9:24 AM EDT To: [facility] General Surgery Nurse Subject: Pain and nausea [...] On track(2021 10:28 AM EST) Jill Colmenares, MIXER DRY FOOD PRODUCTS Note: Mindfulness/deep breathing practice to reduce cortisol -try for at least 10 minutes a day -try an ap such as headspace I have referred you to our psychologist to work on eating behaviors Health Flight Operations Coordinator is sending hand-outs with exercises for mindful eating, The Pause/STOP and Urge surfing. Patient will review and try implementing some behaviors before we meet again. movement Lifestyle On track(2021 10:29 AM EST) Jill Colmenares, MIXER DRY FOOD PRODUCTS Note: Exercise goal is 150 min a [...] on filedocumented in this encounter Care Teams Cleat Layer Relationship Specialty Start Date End Date Sree High, BRYANNA [address] [place] [address] PCP - General Family Medicine 12/19/22 documented as of this encounter
--- OUTSIDE RECORDS SUMMARY | 2024-09-02 16:16 | XMS_ITS | Encounter Summary ---
Author Organization [facility] Address [facility] [place] [address] Care Team Providers Care Business Owner/Engineer Name Role Phone Sree High APRN Primary Care Provider +1- [phone] Encounter Details Date Type Department Care Team (Latest Contact Info) Description 01/29/2023 11:00 AM EDT TH Visit (TeleHealth) General [place] [address] Anni Varela APRN [facility] [place] [address] [address], [address] [facility] [place] [address] S/P gastric bypass; Disorder of iron metabolism [...] APRN - 01/29/2023 11:00 AM EDT BSP business support manager Kelsey [phone] and Lorraine [phone] Dietitians: [phone] Surgeons/ nurse practitioners: [phone] Nurse line: [phone] Dear Leandra, Please see your electronic medical record note from today for details we discussed at your visit. Below is some additional general information that you may find helpful. Testing: It would be helpful if you can have your lab work drawn a couple days before your visit [facility] facility so the results are available at the time of your follow up visit. If you have labwork done by your primary home care music therapist before that date, please have a copy sent to the Bariatric Surgery Program. Please call/send my message if you have not heard from us within 2 weeks of having labs work done. Here's the link to [facility] Lab hours and locations: [email or web address] Next visit: Follow up visits are done at 4 months and 12 months after surgery and yearly thereafter. Some patients are evaluated on a more frequent basis. Please call [phone] if you do not receive an appointment [...] Blow dry area on low setting with hair tinter. Avoid excessive heat and/or sweating as friction [...] such as Ibuprofen (Advil), Aleve (Naproxen), Excedrin, Angella[place] should be used sparingly after gastric bypass, [...] Our post surgery support group meets at [facility] on the first Saturday of every month from 1:00 PM-2:00 PM. You can attend online or in person. Use the following link to attend online: [email or web address] Nutrition and Activity apps- Baritastic, My Fitness Pal, Lose It, My Plate Internet resources: www.Whereoscope www.BBS Technologies www.bariatriceating.com www.Osprey Spill Control.com/blog [facility] facebook page: https://www.facebook.com/[facility]ariatricSurgery Books & Magazines: - Recipes for Life After Weight Loss Surgery by Anupama Gao - Shrink Yourself by Dr Vic Bond - Eating Well - www.Ecrebo.Anna Lozabai - Cooking Light- www.cookingStudy2gether.Anna Lozabai Anxiety: The Happiness Trap by Kemal Figueroa The Mindfulness and acceptance workbook for anxiety By Sukhdev Roe. Mindful eating: What are you Hungry For? By Ender Biggs The Mindful Diet by Any Gibbs and the [place] group. Emotional eating: End Emotional Eating by Blaire Kelly Calming the Emotional Storm Jessren Rodriguez documented in this encounter Progress Notes * Anni Varela APRN - 01/29/2023 11:00 AM EDT Images from the original note were not included. [place] [address] BARIATRIC SURGERY VIRTUAL NOTE 1. Reason/purpose for [...] thicker fluids (apple sauce, light and fit Spanish yogurt) have been easier to get down [...] at this time, food/fluids etc. ?? See production support consultant note re: recommendations regarding vitamin and mineral supplementation, fluid intake and exercise. ?? Additional vitamin and mineral supplement recommendations: continue to hold supplements until follow up in 1 week. RTC in 1 week. Call/rtc sooner prn with questions/concerns or unexplained abdominal pain, prolongednausea, vomiting or inability to hydrate Bariatric Program Summary report is availabe for patient's review via e-DH Anni Varela APRN [facility] Bariatric Surgery Program RECOMMENDED BARIATRIC SURGERY PROGRAM [...] If labwork is done by the primary home care music therapist: please send a copy to the Bariatric Surgery Program, General Surgery Clinic, [facility], or fax [phone] * Stacey Ly RD - 01/29/2023 11:00 AM EDT Images from the original note were not included. [place] [address] ? BARIATRIC SURGERY VIRTUAL NOTE ?? 1. [...] counselor, best friend, sons ?? Hobbies:??likes to AnyMeeting, singing ?? Vision at 2 years post-op:??Healthier [...] ??01/29/23 207#?? 26%?? 35.5?? 3.5 wks post-op [place] Body Weight (based on BMI of 25):??146# [...] to pt. Discussedtrying to have protein drink, british yogurt, soup, etc at meal times and [...] choices Lifestyle On track(2021 10:30 AM EST) Jlil Colmenares APRN Note: Meal timing: consider eating [...] psychologist to work on eating behaviors Health Sap Project Manager is sending hand-outs with exercises for [...] metabolism documented in this encounter Care Teams Business Owner/Engineer Relationship Specialty Start Date End Date Sree High APRN [address] [place] [address] PCP - General Family Medicine 12/19/22 documented as of this encounter
--- OUTSIDE RECORDS SUMMARY | 2024-09-02 16:16 | XMS_ITS | Encounter Summary ---
Author Organization [facility] Address [facility] [place] [address] Care Team Providers Care Household Chores Name Role Phone Sree High APRN Primary Care Provider +1- [phone] Encounter Details Date Type Department Care Team (Late st Contact Info) Description 02/11/2023 Ancillary Procedure Radiology Library at [facility] [place] [address] Sree High APRN [address] [place] [address] Social History Tobacco Use Types Packs/Day Years [...] psychologist to work on eating behaviors Health Curtain Framer is sending hand-outs with exercises for mindful eating, The Pause/STOP and Urge surfing. Patient will review and try implementing some behaviors before we meet again. movement Lifestyle On track(2021 10:29 AM EST) Jill Colmenares, WINDSURFING INSTRUCTOR Note: Exercise goal is 150 min [...] & Pelvis (02/11/2023 12:00 AM EDT) Narrative DEE - 02/12/2023 1:40 PM EDT This exam is auto-finalizing. It's purpose is for storage only. Sree High APRN IMG FILM LIBRARY O RDERABLES Performing Organization Address City/State/[facility] Co de Phone Number [place], [place] documented in this encounter Visit Diagnoses Not on filedocumented in this encounter Care Teams Household Chores Relationship Specialty Start Date End Date Sree High APRN [address] [place] [address] PCP - General Family Medicine 12/19/22 documented as of this encounter
--- OUTSIDE RECORDS SUMMARY | 2024-09-02 16:16 | XMS_ITS | Encounter Summary ---
Author Organization [facility] Address [facility] [place] [address] Care Team Providers Care Digital Coordinator Name Role Phone Sree High APRN Primary Care Provider +1- [phone] Encounter Details Date Type Department Care Team (Late st Contact Info) Description 01/14/2023 Telephone [place] [address] Ada Walker, RN Social History Tobacco Use [...] psychologist to work on eating behaviors Health Superintendent Tests is sending hand-outs with exercises for mindful [...] filedocumented in this encounter Care Teams Digital Coordinator Relationship Specialty Start Date End Date Sree High, BRYANNA [address] [place] [address] PCP - General Family Medicine 12/19/22 documented as of this encounter
--- OUTSIDE RECORDS SUMMARY | 2024-09-02 16:16 | XMS_ITS | Encounter Summary ---
Author Organization [facility] Address [facility] [place] [address] Care Team Providers Care Creative Services Designer Name Role Phone Sree High APRN Primary Care Provider +1- [phone] Encounter Details Date Type Department Care Team [...] psychologist to work on eating behaviors Health Rn Corrections is sending hand-outs with exercises for mindful [...] on filedocumented in this encounter Care Teams Creative Services Designer Relationship Specialty Start Date End Date Sree High APRN [address] [place] [address] [address] [place] [address] PCP - General Family Medicine 12/19/22 documented as of this encounter
--- OUTSIDE RECORDS SUMMARY | 2024-09-02 16:16 | XMS_ITS | Encounter Summary ---
Author Organization [facility] Address [facility] [place] [address] Care Team Providers Care Turner Splitter Machine Operator Name Role Phone Sree High APRN Primary Care Provider +1- [phone] Encounter Details Date Type Department Care Team (Late st Contact Info) Description 01/17/2023 Telephone [place] [address] Anni Varela APRN [facility] [place] [address] Social History Tobacco Use Types Packs/Day Years [...] 10:28 AM EST) No Oseas, Jill L, SOUND PRINTER Note: Mindfulness/deep breathing practice to reduce cortisol -try for at least 10 minutes a day -try an ap such as headspace I have referred you to our psychologist to work on eating behaviors Health Refrigerated Cargo Clerk is sending hand-outs with exercises for [...] on filedocumented in this encounter Care Teams Turner Splitter Machine Operator Relationship Specialty Start Date End Date Sree High APRN [address] [place] [address] [address] [place] [address] PCP - General Family Medicine 12/19/22 documented as of this encounter
--- OUTSIDE RECORDS SUMMARY | 2024-09-02 16:16 | XMS_ITS | Encounter Summary ---
Author Organization [facility] Address [facility] [place] [address] Care Team Providers Care Pizza Delivery Driver Name Role Phone Sree High APRN Primary Care Provider +1- [phone] Encounter Details Date Type Department Care Team (Late st Contact Info) Description 01/18/2023 Telephone [place] [address] Anni Varela APRN [facility] [place] [address] Social History Tobacco Use Types Packs/Day Years [...] psychologist to work on eating behaviors Health Collection Specialist is sending hand-outs with exercises for [...] on filedocumented in this encounter Care Teams Pizza Delivery Driver Relationship Specialty Start Date End Date Sree High APRN [address] [place] [address] PCP - General Family Medicine 12/19/22 documented as of this encounter
--- OUTSIDE RECORDS SUMMARY | 2024-09-02 16:16 | XMS_ITS | Encounter Summary ---
Author Organization [facility] [place] [address] Care Team Providers Care Machine Striper Name Role Phone Sree High APRN Primary Care Provider +1- [phone] Encounter Details Date Type Department Care Team (Latest Contact Info) Description 01/22/2023 1:00 PM EST TH Visit (TeleHealth) [place] [address] Anni Varela APRN [facility] [place] [address] Stacey Ly, RD [facility] [place] [address] Nausea without vomiting; S/P gastric bypass; Disorder [...] Post-operative Follow up visit Contact information: BSP legal support manager: Kelsey: [phone] and Lorraine [phone] Dietitians: [phone] Surgeons/ nurse practitioners: [phone] Nurse line: [phone] Dear Leandra, Thank you for following up with the Bariatric Surgery Program at [facility]. Please review your medical note from today's [...] to 6:00 pm. Here's the link to [facility] Lab hours and locations, in case one of the other locations is more convenient for you: [email or web address] If you have labwork done by your primary career development manager before that date, please have a copy [...] Blow dry area on low setting with chair. Apply absorbent powder such as Gold Isaacs [...] such as Ibuprofen (Advil), Aleve (Naproxen), Excedrin, Angella-Flint should be avoided for at least the [...] Our post surgery support group meets at [facility] on the first Saturday of every month from 1:00 PM-2:00 PM, call to sign up! Nutrition and Activity apps- Baritastic, My Fitness Pal, Lose It, My Plate Internet resources: www.Bkam www.TAGSYS [employer] www.bariatriceating.Xango.com www.HaulerDeals.Xango.com/blog [facility] facebook page: https://www.facebook.com/[facility]ric[facility] Books & Magazines: - Recipes for Life After Weight Loss Surgery by Anupama Gao - Shrink Yourself by Dr Vic Bond - Eating Well - www.Kamcord - Cooking Light- www.Pheedo.Xango.com Anxiety: The Happiness Trap by Kemal Figueroa The Mindfulness and acceptance workbook for anxiety By Sukhdev Roe. Mindful eating: What are you Hungry For? By Ender Biggs The Mindful Diet by nAy Gibbs and the [facility] group. Emotional eating: End Emotional Eating by Blaire Kelly Calming the Emotional Storm Jessren Rodriguez documented in this encounter Progress Notes * Anni Varela APRN - 01/22/2023 1:00 PM EST Images from the original note were not included[place] [address] BARIATRIC SURGERY VIRTUAL NOTE 1. Reason/purpose for [...] foods at thistime, food/fluids etc. ?? See revenue cycle manager note re: recommendations regarding vitamin and mineral [...] patient's review via e- Anni Varela APRN [facility] Bariatric Surgery Program RECOMMENDED BARIATRIC SURGERY PROGRAM [...] If labwork is done by the primary career development manager: please send a copy to the Bariatric Surgery Program, General Surgery Clinic, [facility], or fax [phone] * Stacey Ly, RD - 01/22/2023 1:00 PM EST Images from the original note were not included. [place] [address] BARIATRIC SURGERY VIRTUAL NOTE 1. Reason/purpose for [...] oz bottles of water and 14 oz Paixie.net Corepower protein drink yesterday ??? Pt states [...] ??? Discussed trying to have protein drink, swazi yogurt, soup, etc at meal times and [...] 2 diet until next visit with BSP [employer] OFFICER/RD team. ?? Social history:??on disability??for multiple medical issues. lives w BF??w 3 of her sons (18-21).?Has 4 children. ?? Social support:??BF??(who is here with her today), mom, mental health counselor, best friend, sons ?? Hobbies:??likes to [employer], singing ?? Vision at 2 years post-op:??Healthier [...] ?? Surgery ??01/22/23 ? 1.5 weeks post-op (tele-CanDiag, no weight reported) ? 4 months post-op [place] Body Weight (based on BMI of 25):??146# [...] to track intake. Suggested pt either use Group Commerce marco a or hand written journal ?? [...] oz bottles of water and 14 oz Smarter Agent Mobilewer protein drink yesterday. Pt states that today [...] 2 diet until next visit with [employer]SP [employer] OFFICER/RD team. Reviewed supplements, rec pt try Bariatric [...] psychologist to work on eating behaviors Health Tobacco Stripper is sending hand-outs with exercises for mindful [...] training 3 times a week -can use [employer] - 09/26/22 Lifestyle On track(2021 10:29 [...] metabolism documented in this encounter Care Teams Machine Striper Relationship Specialty Start Date End Date Sree High, BRYANNA [address] [place] [address] PCP - General Family Medicine 12/19/22 documented as of this encounter
--- OUTSIDE RECORDS SUMMARY | 2024-09-02 16:16 | XMS_ITS | Encounter Summary ---
Author Organization [facility] Address [facility] [place] [address] Care Team Providers Care Patient Partner Name Role Phone Sree High APRN Primary Care Provider +1- [phone] Encounter Details Date Type Department Care Team (Late st Contact Info) Description 01/14/2023 Telephone [place] [phone] [facility] [place] [address] Social History Tobacco Use Types Packs/Day Years [...] intake. Encouraged pt to track intake in Bactest marco a. Reviewed protein and fluid goals. Pt reports she has had 7 oz Bar Pass Core Power protein drink (13g pro), a [...] psychologist to work on eating behaviors Health Driver License Examiner is sending hand-outs with exercises for [...] on filedocumented in this encounter Care Teams Patient Partner Relationship Specialty Start Date End Date Sree High, BRYANNA [address] [place] [address] PCP - General Family Medicine 12/19/22 documented as of this encounter
--- OUTSIDE RECORDS SUMMARY | 2024-09-02 16:16 | XMS_ITS | Encounter Summary ---
Author Organization [facility] Address [facility] [place] [address] Care Team Providers Care Laboratory Technical Specialist Name Role Phone Sree High APRN Primary Care Provider +1- [phone] Encounter Details Date Type Department Care Team (Late st Contact Info) Description 02/27/2023 Ancillary Procedure Radiology Library at [facility] [place] [address] Sree High APRN [address] [place] [address] Social History Tobacco Use Types Packs/Day Years [...] psychologist to work on eating behaviors Health Wood Cut Engraver is sending hand-outs with exercises for mindful eating, The Pause/STOP and Urge surfing. Patient will review and try implementing some behaviors before we meet again. movement Lifestyle On track(2021 10:29 AM EST) Jill Colmenares, ELEMENTARY READING TUTOR Note: Exercise goal is 150 min a [...] & Pelvis (02/27/2023 12:00 AM EDT) Narrative DEE - 03/02/2023 2:42 AM EDT This exam is auto-finalizing. It's purpose is for storage only. Sree High APRN IMG FILM LIBRARY O RDERABLES Performing Organization Address City/State/[facility] Co de Phone Number [place], [place] documented in this encounter Visit Diagnoses Not on filedocumented in this encounter Care Teams Laboratory Technical Specialist Relationship Specialty Start Date End Date Sree High APRN [address] [place] [address] PCP - General Family Medicine 12/19/22 documented as of this encounter
--- OUTSIDE RECORDS SUMMARY | 2024-09-02 16:16 | XMS_ITS | Encounter Summary ---
Author Organization [facility] [place] [address] Care Team Providers Care Ruby On Rails Engineer Name Role Phone Sree High APRN Primary Care Provider +1- [phone] Encounter Details Date Type Department Care Team (Late st Contact Info) Description 01/30/2023 Telephone [place] [phone] Lorraine Acevedo Social History Tobacco Use Types [...] her in within the next month. Thanks! Iram documented in this encounter Plan of Treatment [...] psychologist to work on eating behaviors Health Dye Boarding Machine Operator is sending hand-outs with exercises [...] on filedocumented in this encounter Care Teams Ruby On Rails Engineer Relationship Specialty Start Date End Date Sree High, BRYANNA [address] [place] [address] PCP - General Family Medicine 12/19/22 documented as of this encounter
--- OUTSIDE RECORDS SUMMARY | 2024-09-02 16:16 | XMS_ITS | Encounter Summary ---
Author Organization [facility] Address [facility] [place] [address] Care Team Providers Care Flake Cutter Operator Name Role Phone Sree High APRN Primary Care Provider +1- [phone] Encounter Details Date Type Department Care Team (Late st Contact Info) Description 01/21/2023 Telephone [place] [phone] Blaire Escobar RN Social History Tobacco Use [...] time and does not require prior authorization. [place] Tracking number:[id number] I faxed that letter to the [facility] in [facility] ([phone]) * Telephone Encounter - Blaire Escobar RN - 01/21/2023 8:09 AM EST Received fax from [facility]: hyoscyamine requires prior auth from pt's insurance. Initiated PA via Plated (macias: [id number]). Awaiting response. documented in this encounter Plan [...] Lifestyle On track(2021 10:29 AM EST) Jill Comlenares APRN Note: Follow up with sleep, do [...] psychologist to work on eating behaviors Health 4 H Youth Development Specialist is sending hand-outs with exercises for [...] on filedocumented in this encounter Care Teams Flake Cutter Operator Relationship Specialty Start Date End Date Sree High APRN [address] [place] [address] PCP - General Family Medicine 12/19/22 documented as of this encounter
--- OUTSIDE RECORDS SUMMARY | 2024-09-02 16:16 | XMS_ITS | Encounter Summary ---
Author Organization [facility] [place] [address] Care Team Providers Care Lapper Name Role Phone Sree High APRN Primary Care Provider +1- [phone] Encounter Details Date Type Department Care Team (Latest Contact Info) Description 01/18/2023 12:00 PM EST Clinical Support [place] [phone] Dehydration; Poor fluid intake Social History Tobacco [...] 01/18/2023 12:00 PM EST [place] [address] Reason for visit: Bariatric Surgery follow up [...] vomiting which led to an ED visit ([facility]). In the ED she underwent abdominal [...] If labwork is done by the primary animal caretaker supervisor: please send a copy to the Bariatric Surgery Program, General Surgery Clinic, [facility], or fax [phone] * Jammie Chiang RN - 01/18/2023 12:00 [...] On track(2021 10:28 AM EST) Jill Colmenares, PINION AND WHEEL TRUER Note: Mindfulness/deep breathing practice to reduce cortisol -try for at least 10 minutes a day -try an ap such as headspace I have referred you to our psychologist to work on eating behaviors Health Blood Bank Laboratory Technologist is sending hand-outs with exercises for mindful eating, The Pause/STOP and Urge surfing. Patient will review and try implementing some behaviors before we meet again. movement Lifestyle On track(2021 10:29 AM EST) Jill Colmenares, PINION AND WHEEL TRUER Note: Exercise goal is 150 min a [...] development documented in this encounter Care Teams Lapper Relationship Specialty Start Date End Date Sree High APRN [address] [place] [address] PCP - General Family Medicine 12/19/22 documented as of this encounter
--- OUTSIDE RECORDS SUMMARY | 2024-09-02 16:16 | XMS_ITS | Encounter Summary ---
Author Organization [facility] Address [facility] [place] [address] Care Team Providers Care Wheel Adjuster Name Role Phone Sree High APRN Primary Care Provider +1- [phone] Encounter Details Date Type Department Care Team (Late st Contact Info) Description 02/12/2023 Telephone [place] [address] Anni Varela APRN [facility] [place] [address] Social History Tobacco Use Types Packs/Day Years [...] re: ED visit yesterday. Leandra reports ED ([facility]) included IV fluids and CT [...] to work on eating behaviors Health Blood Donor Recruiter is sending hand-outs with exercises for mindful [...] on filedocumented in this encounter Care Teams Wheel Adjuster Relationship Specialty Start Date End Date Sree High APRN [address] [place] [address] PCP - General Family Medicine 12/19/22 documented as of this encounter
--- OUTSIDE RECORDS SUMMARY | 2024-09-02 16:16 | XMS_ITS | Encounter Summary ---
Author Organization [facility] Address [facility] [place] [address] Care Team Providers Care Director Shopper Marketing Name Role Phone Sree High APRN Primary Care Provider +1- [phone] Encounter Details Date Type Department Care Team [...] psychologist to work on eating behaviors Health Copper Miner Blasting is sending hand-outs with exercises for mindful [...] filedocumented in this encounter Care Teams Director Shopper Marketing Relationship Specialty Start Date End Date Sree High APRN [address] [place] [address] [address] [place] [address] PCP - General Family Medicine 12/19/22 documented as of this encounter
--- OUTSIDE RECORDS SUMMARY | 2024-09-02 16:16 | XMS_ITS | Encounter Summary ---
Author Organization [facility] Address [facility] [place] [address] Care Team Providers Care Sample Carrier Name Role Phone Sree High APRN Primary Care Provider +1- [phone] Encounter Details Date Type Department Care Team (Latest Contact Info) Description 03/05/2023 2:47 PM EDT - 03/05/2023 6:36 PM EDT Hospital En[place] [phone] Iram Borrero MD [facility] [place] [address] Dysphagia, unspecified type Discharge Disposition: Home Social [...] 6-8 hours after your surgery, please call [phone] before 5 PM weekdays and [phone] after 5 PM and weekends to discuss [...] Doctor for: The number for questions is [phone] before 5 PM weekdays and [phone] after 5 PM and weekends. Follow-up: Please call [phone] (clinic number for appointments) to confirm or change the date and time ofyour appointment. You should keep your appointment for the swallow study on 03/12/2023 which will help us further evaluate your stomach and intestine. Future Appointments Date Time Provider Department Center 03/12/2023 3:00 PM [facility] DX ROOM 5 Xray [facility] Rad 03/20/2023 12:10 PM Iram Borrero MD [facility] 04/26/2023 9:30 AM Anita Aviles APRN [facility] [...] Borrero MD - 03/05/2023 4:50 PM EDT [facility] General Surgery History and Physical History [...] (WRVU 29.4) performed by Iram Borrero MDat [facility] MAIN OR ??? PRO UPPER GI ENDOSCOPY, DIAGNOSTIC N/A 01/10/2023 EGD, UPPER GI ENDOSCOPY performed by Iram Borrero MD at [facility] MAIN OR Medications: No current facility-administered medications [...] Borrero MD General Surgery Minimally Invasive Surgery [phone] documented in this encounter Miscellaneous Notes * Op Note - Iram Borrero MD - 03/05/2023 5:05 PM EDT [facility] Operative Note Patient Name: Leandra Wilks : [id number] MR#: [id number] Case Date: 03/05/2023 Surgeon: Surgeon(s) and Role: * Irma Borrero MD - Primary * Naatlee Winn MD - Fellow - Assisting Preoperative [...] psychologist to work on eating behaviors Health Barrel Driller is sending hand-outs with exercises for mindful [...] Associated Diagnosis Comments Upper GI Endoscopy, Diagnostic (37828) Yes 03/05/2023 4:56 PM EDT Dysphagia, unspecified [...] Routine documented in this encounter Care Teams Sample Carrier Relationship Specialty Start Date End Date Sree High, BRYANNA [address] [place] [address] PCP - General Family Medicine 12/19/22 documented as of this encounter
--- OUTSIDE RECORDS SUMMARY | 2024-09-02 16:16 | XMS_ITS | Encounter Summary ---
Author Organization [facility] Address [facility] [place] [address] Care Team Providers Care Operating Table Assembler Name Role Phone Sree High APRN Primary Care Provider +1- [phone] Encounter Details Date Type Department Care Team (Late st Contact Info) Description 01/17/2023 Ancillary Procedure Radiology Library at [facility] [place] [address] Sree High APRN [address] [place] [address] Social History Tobacco Use Types Packs/Day Years [...] work on eating behaviors Health Food Mixer Repairer is sending hand-outs with exercises for mindful eating, The Pause/STOP and Urge surfing. Patient will review and try implementing some behaviors before we meet again. movement Lifestyle On track(2021 10:29 AM EST) Jill Colmenares, BIODIESEL PLANT OPERATIONS ENGINEER Note: Exercise goal is 150 min [...] High APRN IMJenise FILM LIBRARY O RDERABLES [place], [place] documented in this encounter Visit Diagnoses Not on filedocumented in this encounter Care Teams Operating Table Assembler Relationship Specialty Start Date End Date Sree High APRN [address] [place] [address] PCP - General Family Medicine 12/19/22 documented as of this encounter
--- OUTSIDE RECORDS SUMMARY | 2024-09-02 16:16 | XMS_ITS | Encounter Summary ---
Author Organization [facility] Address [facility] [place] [address] Care Team Providers Care Manager Women Name Role Phone Sree High APRN Primary Care Provider [phone] Reason for Visit * Auth/Cert (Routine) Specialty Diagnoses / Procedures Referred By Contangelo t Referred To Contact Diagnoses Morbid (severe) obesity due to excess calories Morbid Obesity Procedures PRO LAP GASTRIC BYPASS/RENATO-EN-Y PRO UPPER GI ENDOSCOPY, DIAGNOSTIC @LAPAROSCOPIC GASTROPLASTY W/ RENATO-EN-Y CONSTRUCTION (WRVU 29.4) EGD, UPPER GI ENDOSCOPY Iram Lee MD [facility] [place] [place] [address] [facility] Referral ID Status Reason Start Date Expiration Date Visits Re quested Visits Authorized [id number] 1 1 Encounter Details Date Type Department Care Team (Latest Contact Info) Description 01/10/2023 10:39 AM EST - 01/13/2023 3:30 PM [facility] Hospital Encounter Surgical Unit Level 4 [place] [address] Iram Lee MD [facility] [place] [address] Class 3 severe obesity with body mass [...] - Resident History of Present Illness: Leandra Wikls is a 42 y.o. female who has [...] RD; Anita Aviles APRN General Surgery at [facility] Arrive at: Retail Equipment Associate Area [phone] 04/26/2023 9:[address]; Anita Aviles APRN General Surgery at [facility] Arrive at: Retail Equipment Associate Area [phone] Instructions Given to Patient at Discharge: Patient Instructions Discharge Instructions - Bariatric Surgery NEW PRESCRIPTIONS: ??? melting supervisor at [facility] today: ondansetron (Zofran), omeprazole (Prilosec), liquid [...] - 5pm): General Surgery and Bariatric Surgery [phone] Bariatric Surgeons: Adair Cherry, Cristino [phone] Fluid Jet Cutter Operator: [phone] Dietitians: [phone] Outside of regular business hours, including weekends and holidays: Ask for General Surgery resident construction sales manager [phone] Please note, this call will be answered [...] [facility] (Retail Equipment Associate 4, [facility] Future Appointments Date Time Provider Department Center 01/30/2023 9:30 AM Anita Aviles APRN [facility] SUR[facility] 04/26/2023 9:30 AM Anita Aviles APRN [facility] WOUND CARE ??? You have steri-strips and [...] daily. ??? Please call or send a Queryly message if you do not have a [...] Follow up with primary care provider or event marketing specialist in 1-2 weeks in order to [...] RD; Anita Aviles APRN General Surgery at [facility] Arrive at: Retail Equipment Associate Area [phone] 04/26/2023 9:[address]; Anita Aviles APRN General Surgery at [facility] Arrive at: Retail Equipment Associate Area [phone] Signed: aRul Ho MD [facility] Physician: Sree High APRN [address] [facility] [id number] documented in this encounter Discharge Instructions * Patient Instructions* Natalee Winn MD - 01/11/2023 9:11 AM EST Images from the original note were not included. Discharge Instructions - Bariatric Surgery NEW PRESCRIPTIONS: melting supervisor at [facility] today: ondansetron (Zofran), omeprazole (Prilosec), liquid [...] - 5pm): General Surgery and Bariatric Surgery [phone] Bariatric Surgeons: Adair Cherry Trus [phone] Fluid Jet Cutter Operator: [phone] Dietitians: [phone] Outside of regular business hours, including weekends and holidays: Ask for General Surgery resident construction sales manager [phone] Please note, this call will be answered [...] Surgery Team in 3 weeks at the [facility] (Retail Equipment Associate 4L, [facility] Future Appointments Date Time Provider Department Center 01/30/2023 9:30 AM Anita Aviles APRN [facility] 04/26/2023 9:30 AM Anita Aviles APRN [facility]OUND [facility] You have steri-strips and Band-Aids [...] twice daily. Please call or send a [facility] message if you do not have [...] Follow up with primary care provider or event marketing specialist in 1-2 weeks in order to [...] BR. Voiding adequately, +BM today. Surgical sites CARPENTER with steristrips cdi, no drainage or signs of infection. AVS given andreviewed with patient, questions answered, pt stated understanding. Prescriptions to be picked up at [facility] after discharge. PIV removed by this RN, [...] liquid 975 mg 975 mg Oral Q6H [facility] Raul Ho MD 975 mg at 01/13/23 [...] Surgery 6:54 AM 01/13/23 MIS service pager: [phone] * Katherin Kerns MD - 01/12/2023 7:40 [...] injection 4 mg 4 mg Intravenous Q6H [facility] Natalee Winn MD 4 mg at 01/12/23 [...] Surgery 7:40 AM 01/12/23 MIS service pager: [phone] Associated attestation - Iram Lee MD - [...] Surgery 8:39 AM 01/11/23 MIS service pager: [phone] Associated attestation - Iram Lee MD - [...] DOB; Age: 4 1980; 42 y.o. Room/Bed: [facility] Today's Date: 01/10/23 Attending: IRAM LEE [...] on patient's status. 2104: Patient's son, Abelino [phone], called and I updated him on patient's [...] date: 01/10/2023 Attending Physician: Iram Lee MD [facility] Minimally Invasive Surgery Pre-Operative H&P Patient evaluated day of surgery. Please see below for details of patient history as adapted from last clinic visit.No new findings or changes to medical history. No recent illnesses, cough, fever, diarrhea. Plan to proceed with surgery. Natalee Winn MD 01/10/23 12:43 PM MISpager [phone] Leandra attended a comprehensive group pre-operative class today, which included discussion of pre and post operative instructions included in the [facility] Bariatric Surgery Program Education Handbook. The nutrition [...] ??Education:??Pt previously attended a Introduction to the [facility] Bariat[facility] Surgery [facility] seminar, a two hour meeting that provides a program overview as well as expectations. The [facility] Bariatric Surgery Program Educational seminar requirement has [...] surgery and post-op routine care/ locations: Admissions/SDP/PACU///2 [place] units ??? medications that increase the risk [...] N/A ; Prescription Coverage: Yes Preferred Pharmacy: [facility] - [place], [place] - [address] [facility] [address] [facility] [address] [facility] [address] [facility] [address] Advance Care Planning: Attempt Cardiopulmonary Resuscitation - Inpatient <no information> -Advanced Directive: Other (Surrogacy: Parents) Current Functional Ability: Independent Functional Status Prior to Admission: Independent Home Environment: Others in the home: significant other. Current Living Arrangements: home/apartment/condo. Accessibility Concerns:none noted. Current DME: none [address] [facility] [address] Social & Family Supports: Extended Emergency Contact Information Primary Emergency Contact: JAXON BLAKE Address: [address] [place] [address] [facility] Mobile Relation: Life Partner Secondary Emergency Contact: Ozzy Granado Address: [address] [facility] Relation: Child Current Care Provided by: self [...] via car when medically ready. Registered Nurse Store Clerk Cashier / Farm Mortgage Agent will continue to follow patient???s progress and remain available if situation changes for coordination of care, psychosocial support and/or discharge planning. Office of Care Management Chacorta Victor RN RN/CM - Cellphone: [phone] Pager: [phone] Covering Service RN/CM * Op Note - Iram Lee MD - 01/10/2023 2:01 PM EST [facility] Operative Note Patient Name: Leandra Wilks : [id number] MR#: [id number] Case Date: 01/10/2023 Surgeon: Surgeon(s) and Role: [...] from the point of transection, and a [id number] jejunojejunostomy was created between this point in [...] psychologist to work on eating behaviors [employer] is sending hand-outs with exercises for mindful [...] 01/12/2023 6:37 AM EST BASIC METABOLIC PANEL Timed 01/12/2023 6:37 AM EST POCT GLUCOSE [...] 1 2:30 AM EST BASIC METABOLIC PANEL Routine 01/11/2023 12:30 AM EST Upper GI Endoscopy, Diagnostic (49957) 01/10/2023 1:24 PM EST Class 3 severe obesity with body mass index (BMI) of 40.0 to 44.9 in adult, unspecified obesity type, unspecified whether serious comorbidity present Lap Gastric Bypass/Renato-En-Y (66843) 01/10/2023 1:24 PM EST Class 3 severe [...] Panel (non-fasting) (01/12/2023 6:37 AM EST) Glucose 134 65 - 199 mg/dL [facility] Comment:Diabetes: >=200 mg/d L plus symptoms Blood Urea Nitrogen 6(L) 8 - 18 mg/dL [facility] Creatinine 0.64(L) 0.70 - 1.20 mg/dL [facility] Sodium 139 135 - 145 mmol/L [facility] Potassium 3.3(L) 3.5 - 5.0 mmol/L [facility] Comment: Please note: ??Patients with WBC >100,000 may have falsely elevated Potassium levels. ??For accurate Potassium quantification in these patients send serum separator tube (gold top) for subsequent determinations. ??Contact the Clinical Chemistry Laboratory if there are any questions. Chloride 104 98 - 107 mmol/L [facility] Carbon Dioxide 27 22 - 31 mmol/L [facility] Anion Gap 8 5 - 15 mmol/L [facility] Calcium 8.4(L) 8.5 - 10.5 mg/dL [facility] Est Glomerular Filtration Rate 112 >=60 mL/min/1. 73 m?? [facility] Comment: This patient's estimated [...] In Lab Iram Lee MD CHEMISTRY ORDERABLES [facility] [place] [address] * (ABNORMAL) Hemogram (01/12/2023 6:37 AM EST) White Blood Cell 9.4 4.0 - 9.5 x10(3)/mc L [facility] Red Blood Cell 3.71(L) 4.00 - 5.21 x10(6)/mc L [facility] Hemoglobin 11.1(L) 11.7 - 15.5 g/dL [facility] Hematocrit 31.7(L) 35.7 - 45.8 % [facility] Mean Cell Volume 85.4 82.6 - 94.[address] [facility] Mean Cell Hemoglobin 29.9 27.1 - 32.[address] [facility] Mean Cell Hemoglobin Concentration 35.0 31.7 - 35.0 g/dL [facility] Platelet 293 145 - 357 x10(3)/ L [facility] RDW Standard Deviation 39.7 37.0 - 46.[address] [facility] RDW coefficient of variation 12.9 11.5 - 14.1 % [facility] Mean Platelet Volume 9.3 7.6 - 12.9 fL [facility] NRBC% auto 0.0 % [facility] NRBC Absolute 0.000 0.000 - 0.000 x10(3)/[facility] Blood 01/12/2023 6:37 AM EST 01/12/2023 6:40 AM EST Narrative Resulting Agency Comment Spec In Lab Iram Lee MD HEMATOLOGY ORDERABLE S Performing Organization Address City/[facility]/ZIP Co de Phone Number [facility] [place] [address] * POCT Glucose (01/11/2023 11:54 AM EST) Glucose, POC 104 65 - 199 mg/dL [facility] Comment: Supplemental ranges: <140 mg/dL before meals <180 mg/dL all other times of the day Blood 01/11/2023 11:5 4 AM EST 01/11/2023 11:54 AM EST Iram Lee MD POINT OF CARE TEST O RDERABLES [facility] [place] [address] * (ABNORMAL) Urinalysis Microscopic Exam (01/11/2023 10:28 AM EST) RBC, Urine 5(H) 0 - 4 /HPF [facility] WBC, Urine 5 0 - 5 /HPF [facility] Squamous Epithelial Cells Raw Data, Urine 6(H) <=4 /HPF [facility] Hyaline Casts, Urine 2 0 - 2 /LPF [facility] Clean Catch Urine 01/11/2023 10:28 AM EST 01/11/2023 12:11 PM EST Narrative Resulting Agency Comment Spec In Lab Joan GAINES URINE ORDERABLES [facility] [place] [address] * (ABNORMAL) Urinalysis with reflex Culture (01/11/2023 10:28 AM EST) Glucose, Urine Dipstick Negative Negative mg/dL [facility] Protein, Urine Dipstick Negative Negative mg/dL [facility] Bilirubin, Urine Dipstick Negative Negative mg/dL [facility] Comment: Clinical correlation required for positive Urine Bilirubin results as false positive may occur with some drugs and drug related products. If a false positive is suspected a serum total bilirubin should be considered if clinically indicated. Urobilinogen, Urine Dipstick Normal Normal mg/dL [facility] pH, Urn (dipstick) 6.0 5.0 - 8.0 [facility] Blood, Urine Dipstick Negative Negative mg/dL [facility] Ketone, Urine Dipstick 15(A) Negative mg/dL [facility] Nitrite, Urine Dipstick Negative Negative [facility] Leukocytes, Urine Dipstick Small(A) Negative mcL [facility] Appearance, Urine Dipstick Clear Clear [facility] Specific [place] Urine Automated 1.020 1.005 - 1.030 [facility] Color, Urine Dipstick Yellow Yellow [facility] Reflex to Culture No [facility] Clean Catch Urine 01/11/2023 10:28 AM EST 01/11/2023 12:11 PM EST Narrative Resulting Agency Comment Spec In Lab Iram Lee [place] [address] * (ABNORMAL) Differential, Automated (01/11/2023 7:00 AM EST) Neutrophil % 86.3 % [facility] Neutrophil Absolute 11.15(H) 1.70 - 6.10 x10(3)/mc L [facility] Lymph % 8.7 % [facility] Lymphocytes Abs 1.1 0.9 - 3.2 x10(3)/mc L [facility] Monocyte % 4.6 % [facility] Monocyte Abs 0.6 0.3 - 0.9 x10(3)/mc L [facility] Eos % 0.0 % [facility] Eosinophils Abs 0.0 0.0 - 0.4 x10(3)/mc L [facility] Basophil % 0.1 % [facility] Baso Absolute 0.0 0.0 - 0.1 x10(3)/mc L [facility] Immature Gran % 0.30 % [facility] Comment: Immature granulocytes(IG's)percentage and absolute count will include metamyelocytes, myelocytes, and promyelocytes. Blood smears from CBCs yielding IG's will be scanned manually for concordance. If this scan disagrees with the automated IG or if promyelocytes are noted, a manual differential will be performed. Immature Gran Absolute 0.04 0.00 - 0.04 x10(3)/mc L [facility] Blood 01/11/2023 7:00 AM EST 01/11/2023 7:13 AM EST Narrative Resulting Agency Comment Spec In Lab Natalee Winn MD [place] [address] * (ABNORMAL) Hemogram (01/11/2023 7:00 AM EST) White Blood Cell 12.9(H) 4.0 - 9.5 x10(3)/mc L [facility] Red Blood Cell 3.88(L) 4.00 - 5.21 x10(6)/mc L [facility] Hemoglobin 11.5(L) 11.7 - 15.5 g/dL [facility] Hematocrit 34.3(L) 35.7 - 45.8 % [facility] Mean Cell Volume 88.4 82.6 - 94.[address] [facility] Mean Cell Hemoglobin 29.6 27.1 - 32.[address] [facility] Mean Cell Hemoglobin Concentration 33.5 31.7 - 35.0 g/dL [facility] Platelet 345 145 - 357 x10(3)/mc L [facility] RDW Standard Deviation 40.8 37.0 - 46.[address] [facility] RDW coefficient of variation 12.7 11.5 - 14.1 % [facility] Mean Platelet Volume 9.5 7.6 - 12.[address] [facility] NRBC% auto 0.0 % [facility] NRBC Absolute 0.000 0.000 - 0.000 x10(3)/ L [facility] Blood 01/11/2023 7:00 AM EST 01/11/2023 7:13 AM EST Narrative Resulting Agency Comment Spec In Lab Natalee Winn MD HEMATOLOGY ORDERABLE S Performing Organization Address City/State/[facility] Co de Phone Number [facility] [place] [address] * (ABNORMAL) Differential, Automated (01/11/2023 12:30 AM EST) Pathologist [facility] Neutrophil % 93.3 % [facility] Neutrophil Absolute 12.77(H) 1.70 - 6.10 x10(3)/mc L [facility] Lymph % 4.0 % [facility] Lymphocytes Abs 0.6(L) 0.9 - 3.2 x10(3)/mc L [facility] Monocyte % 2.0 % [facility] Monocyte Abs 0.3 0.3 - 0.9 x10(3)/mc L [facility] Eos % 0.0 % [facility] Eosinophils Abs 0.0 0.0 - 0.4 x10(3)/mc L [facility] Basophil % 0.1 % [facility] Baso Absolute 0.0 0.0 - 0.1 x10(3)/mc L [facility] Immature Gran % 0.60 % [facility] Comment: Immature granulocytes(IG's)percentage and absolute count will include metamyelocytes, myelocytes, and promyelocytes. Blood smears from CBCs yielding IG's will be scanned manually for concordance. If this scan disagrees with the automated IG or if promyelocytes are noted, a manual differential will be performed. Immature Gran Absolute 0.08(H) 0.00 - 0.04 x10(3)/mc L [facility] Blood 01/11/2023 12:3 0 AM EST 01/11/2023 12:45 AM EST Narrative Resulting Agency Comment Spec In Lab Natalee Winn MD HEMATOLOGY ORDERABLE S Performing Organization Address City/State/[facility] Co de Phone Number [facility] [place] [address] * (ABNORMAL) Hemogram (01/11/2023 12:30 AM EST) White Blood Cell 13.7(H) 4.0 - 9.5 x10(3)/mc L [facility] Red Blood Cell 4.02 4.00 - 5.21 x10(6)/mc L [facility] Hemoglobin 11.9 11.7 - 15.5 g/dL [facility] Hematocrit 35.1(L) 35.7 - 45.8 % [facility] Mean Cell Volume 87.3 82.6 - 94.[address] [facility] Mean Cell Hemoglobin 29.6 27.1 - 32.[address] [facility] Mean Cell Hemoglobin Concentration 33.9 31.7 - 35.0 g/dL [facility] Platelet 334 145 - 357 x10(3)/mc L [facility] RDW Standard Deviation 40.5 37.0 - 46.[address] [facility] RDW coefficient of variation 12.7 11.5 - 14.1 % [facility] Mean Platelet Volume 9.3 7.6 - 12.9 fL [facility] NRBC% auto 0.0 % [facility] NRBC Absolute 0.000 0.000 - 0.000 x10(3)/mc L [facility] Blood 01/11/2023 12:3 0 AM EST 01/11/2023 12:45 AM EST Narrative Resulting Agency Comment Spec In Lab Natalee Winn MD HEMATOLOGY ORDERABLE S Performing Organization Address City/[facility]/ZIP Co de Phone Number [facility] [place] [address] * Phosphorus (01/11/2023 12:30 AM EST) Phosphorus 3.1 2.5 - 4.5 mg/dL [facility] Blood 01/11/2023 12:3 0 AM EST 01/11/2023 12:45 AM EST Narrative Resulting Agency Comment Spec In Lab Natalee Winn MD CHEMISTRY ORDERABLES Performing Organization Address City/[facility] Co de Phone Number [facility] [place] [address] * Magnesium (01/11/2023 12:30 AM EST) Magnesium 0.74 0.69 - 1.07 mmol/L [facility] Blood 01/11/2023 12:3 0 AM EST 01/11/2023 12:45 AM EST Narrative Resulting Agency Comment Spec In Lab Natalee Winn MD CHEMISTRY ORDERABLES Performing Organization Address [facility] Co de Phone Number [facility] [place] [address] * (ABNORMAL) Basic Metabolic Panel (non-fasting) (01/11/2023 12:30 AM EST) Glucose 203(H) 65 - 199 mg/dL [facility] Comment:Diabetes: >=200 mg/d L plus symptoms Blood Urea Nitrogen 13 8 - 18 mg/dL [facility] Creatinine 0.75 0.70 - 1.20 mg/dL [facility] Sodium 134(L) 135 - 145 mmol/L [facility] Potassium 4.1 3.5 - 5.0 mmol/L [facility] Comment: Please note: ??Patients with WBC >100,000 may have falsely elevated Potassium levels. ??For accurate Potassium quantification in these patients send serum separator tube (gold top) for subsequent determinations. ??Contact the Clinical Chemistry Laboratory if there are any questions. Chloride 100 98 - 107 mmol/L [facility] Carbon Dioxide 22 22 - 31 mmol/L [facility] Anion Gap 12 5 - 15 mmol/L [facility] Calcium 8.7 8.5 - 10.5 mg/dL [facility] Est Glomerular Filtration Rate 101 >=60 mL/min/1. 73 m?? [facility] Comment: This patient's estimated [...] In Lab Natalee Winn MD CHEMISTRY ORDERABLES [facility] [place] [address] documented in this encounter Visit Diagnoses Diagnosis [...] 1810, Until Char 01/10/23 at 2152, Pain, Moderate to severe pain [...] Until Char 01/10/23 at 2152, Pain, For Mild to Moderate [...] 30 MIN PRN, 2 doses, Starting on Sat01/10/23 at 1810, Until Sat01/10/23 at 2152, Nausea, Maximum total dose of [...] PRN, Starting on 01/13/23 at 1800, Until 01/13/23 at 1732, Nausea, Routine oxyCODONE (Roxicodone) (1 mg/mL) oral liquid 5 mg 5 mg, Oral, EVERY 6 HOURS PRN, Starting on Char 01/10/23 at 1922, Until 01/11/23 at 1704, Pain, Moderate-Severe pain 4-10, Routine [...] Russ Blanton RN)1214 (Given - Provider: Jill Vlale RN) acetaminophen (Tylenol) tablet 975 mg (CANCELED) [...] Reason: Patient/family refused - Comment: paged for ronyxer.) celecoxib (CeleBREX) capsule 200 mg 200 mg, [...] RN)2049 (Given - Provider: Russ Blanton RN) 0903 (Given - Provider: Jill Valle RN) enoxaparin [...] admin whole) 0848 (Given - Provider: Jill Valle RN)2049 (Given [...] Blanton RN)1733 (Patch Applied - Provider: Jill Valle RN) 0533 (Patch Removed - Provider: Russ Blanton [...] Jessica Tam RN)1453 (Given - Provider: Antonella Jain RN) ondansetron (pf) (Zofran) (2 mg/mL) injection 4 mg (CANCELED) 4 mg, Intravenous, EVERY 6 HOURS SCHEDULED, First dose (after last modification) on Sat01/11/23 at 1800, Until Discontinued, For nausea please use ondansetron as the first choice; prochlorperazine as a second choice; promethazine as a third choice. Call provider if not effective. 1837 (Given - Provider: Antonella Jain RN) 0014 (Given - Provider: Dayan Candelario RN)0517 (Given - Provider: Russ Blanton, MIKE)1119 (Given - Provider: Jill Valle, MIKE)1732 (Given - Provider: Jill Valle, MIKE)2312 (Given - Provider: Russ Blanton, MIKE) 0549 (Given - Provider: Russ Blanton RN)1214 [...] EVERY HOUR, 4 doses, First dose on Sat01/12/23 at 0900, Last dose on Sat01/12/23 at 1200, Administer over 60 Minutes, Warning Vesicant/Irritant Medication 0923 (New Bag - Provider: Jill Valle RN)1043 (Stopped - Provider: Jill Valle, RN)1044 (New Bag - Provider: Jill Valle, MIKE)1059 (Stopped - Provider: Jill Valle, MIKE)1330 (New Bag - Provider: Jill Valle, RN - Comment: infusion slowed for toleranceY with NS for tolerance)1359 (Stopped - Provider: Jill Valle, RN)1509 (New Bag - Provider: Jill Valle RN [...] and location) verified - Provider: Russ Blanton RN)2099 (Patch (dose and location) verified - Provider: Russ Blanton RN) 0909 (Patch (dose and location) verified - Provider: Jill Valle RN) sodium chloride 0.9 % (flush) (BD PosiFlush Normal Saline 0.9) flush 5 mL 5 mL, Intravenous, 2 TIMES DAILY, First dose on Char 01/10/23 at 2215, Until Discontinued, Recovery (Recovery-Hospital Unit), Routine 09 (Given - Provider: Antonelal Jain, MIKE)2010 (Given - Provider: Russ Blanton RN) 09 (Not Given - Provider: Jill Valle RN - Reason: See comment - Comment: too large to swollow and unable to open)2050 (Given - Provider: Russ Blanton RN) 0909 (Given - Provider: Jill Valle RN) [...] MIKE)1927 (Rate/Dose Verify - Provider: Antonella Jain, MIKE) 0039 (New Bag - Provider: Dayan Candelario [...] PRN, Starting on 01/13/23 at 1800, Until 01/13/23 at 1732, Nausea, Routine oxyCODONE (Roxicodone) (1 mg/mL) oral liquid 5 mg (CANCELED) 5 mg, Oral, EVERY 6 HOURS PRN, Starting on Char 01/10/23 at 1922, Until 01/11/23 at 1704, Pain, Moderate-Severe pain 4-10, Routine 1041 (Given - Provider: Antonella Jain, MIKE)1453 (Given - Provider: Antonella Jain, MIKE) oxyCODONE (Roxicodone) (1 mg/mL) oral liquid 5 mg 5 mg, Oral, EVERY 4 HOURS PRN, Starting on 01/11/23 at 1715, Until 01/13/23 at 1732, Pain, Moderate-Severe pain 4-10, Routine 1837 (Given - Provider: Antonella Jain, MIKE) 1353 (Given - Provider: Jill Valle, MIKE)1947 (Given - Provider: Russ Blanton, MIKE)2312 (Given - Provider: Russ Blanton, MIKE) 0446 (Given - Provider: Russ Blanton, MIKE)0917 (Given - Provider: Jill Valle, MIKE) prochlorperazine (Compazine) (5 mg/mL) injection 10 mg 10 mg, Intravenous, EVERY 6 HOURS PRN, Starting on Char 01/10/23 at 2145, Until 01/13/23 at 1732, Nausea, Vomiting, For nausea please use ondansetron as the first choice; prochlorperazine as a second choice; promethazine as a third choice. Call provider if not effective., Routine 2131 (Given - Provider: Russ Blanton, MIKE) promethazine (Phenergan) (25 mg/mL) injection 6.25 mg 6.25 mg, Intravenous, EVERY 4 HOURS PRN, Nausea, Starting on Char 01/10/23 at 2145, Until 01/13/23 at 1732, For nausea please use ondansetron as the first choice; prochlorperazine as a second choice; promethazine as a third choice. Call provider if not effective. 1121 (Given - Provider: Antonella Jain, MIKE) sodium chloride 0.9 % (flush) (BD PosiFlush [...] patch. documented in this encounter Care Teams Manager Women Relationship Specialty Start Date End Date Sree High, BRYANNA [address] [place] [address] PCP - General Family Medicine 12/19/22 documented as of this encounter
--- OUTSIDE RECORDS SUMMARY | 2024-09-02 16:16 | XMS_ITS | Encounter Summary ---
Author Organization [facility] Address [facility] [place] [address] Care Team Providers Care City Recorder Name Role Phone Sree High APRN Primary Care Provider +1- [phone] Encounter Details Date Type Department Care Team ([facility] st Contact Info) Description 02/25/2023 Ancillary Procedure Radiology Library at [facility] [place] [id number] Social History Tobacco Use Types Packs/Day Years [...] Scheduled Procedures Name Priority Associated Diagnoses Date/Ti ms COLONOSCOPY, DIAGNOSTIC (WRV U 3.26) Biliary stricture [...] psychologist to work on eating behaviors Health Plasma Processing Centrifuge Operator is sending hand-outs with exercises for mindful eating, The Pause/STOP and Urge surfing. Patient will review and try implementing some behaviors before we meet again. movement Lifestyle On track(2021 10:29 AM EST) No Jill Farooq, SENIOR MATERIALS PLANNER Note: Exercise goal is 150 min a [...] filedocumented in this encounter Care Teams City Recorder Relationship Specialty Start Date End Date Sree High, SENIOR MATERIALS PLANNER [address] [place] [address] PCP - General Family Medicine 12/19/22 documented as of this encounter
--- OUTSIDE RECORDS SUMMARY | 2024-09-02 16:16 | XMS_ITS | Encounter Summary ---
Author Organization [facility] Address [facility] [place] [address] Care Team Providers Care Parlor Maid Name Role Phone Sree High APRN Primary Care Provider +1- [phone] Encounter Details Date Type Department Care Team (Late st Contact Info) Description 01/30/2023 Orders [place] [address] Iram Borrero MD [facility] [place] [address] Dysphagia, unspecified type Social History Tobacco Use [...] On track(2021 10:28 AM EST) Jill Colmenares, GRAIN ELEVATOR CLERK Note: Mindfulness/deep breathing practice to reduce cortisol -try for at least 10 minutes a day -try an ap such as headspace I have referred you to our psychologist to work on eating behaviors Health Service Employee is sending hand-outs with exercises for mindful eating, The Pause/STOP and Urge surfing. Patient will review and try implementing some behaviors before we meet again. movement Lifestyle On track(2021 10:29 AM EST) Jill Colmenares, GRAIN ELEVATOR CLERK Note: Exercise goal is 150 min [...] type documented in this encounter Care Teams Parlor Maid Relationship Specialty Start Date End Date Sree High, BRYANNA [address] [facility] [address] [place] [address] PCP - General Family Medicine 12/19/22 documented as of this encounter
--- OUTSIDE RECORDS SUMMARY | 2024-09-02 16:16 | XMS_ITS | Encounter Summary ---
Author Organization [facility] Address [facility] [place] [address] Care Team Providers Care Equipment Superintendent Name Role Phone Sree High APRN Primary Care Provider +1- [phone] Encounter Details Date Type Department Care Team (Late st Contact Info) Description 01/28/2023 Telephone [place] [phone] Iram Borrero MD [facility] [place] [address] Social History Tobacco Use Types Packs/Day Years [...] to work on eating behaviors Health Mannequin Sander And Finisher is sending hand-outs with exercises for mindful [...] on filedocumented in this encounter Care Teams Equipment Superintendent Relationship Specialty Start Date End Date Sree High APRN [address] [place] [address] PCP - General Family Medicine 12/19/22 documented as of this encounter
--- OUTSIDE RECORDS SUMMARY | 2024-09-02 16:16 | XMS_ITS | Encounter Summary ---
Author Organization [facility] Address [facility] [place] [address] Care Team Providers Care Body Engineer Name Role Phone Sree High APRN Primary Care Provider +1- [phone] Encounter Details Date Type Department Care Team (Late st Contact Info) Description 01/16/2023 Telephone [place] [phone] Iram Borrero MD [facility] [place] [address] Social History Tobacco Use Types Packs/Day Years [...] psychologist to work on eating behaviors Health Agile Java Developer is sending hand-outs with exercises for [...] on filedocumented in this encounter Care Teams Body Engineer Relationship Specialty Start Date End Date Sree High, BRYANNA [address] [place] [address] PCP - General Family Medicine 12/19/22 documented as of this encounter
--- OUTSIDE RECORDS SUMMARY | 2024-09-02 16:16 | XMS_ITS | Encounter Summary ---
Author Organization [facility] Address [facility] [place] [address] Care Team Providers Care Food Products Tester Name Role Phone Sree High APRN Primary Care Provider +1- [phone] Encounter Details Date Type Department Care Team (Late st Contact Info) Description 01/25/2023 Telephone [place] [address] Anni Varela APRN [facility] [place] [address] Social History Tobacco Use Types Packs/Day Years [...] psychologist to work on eating behaviors Health Bounty Trapper is sending hand-outs with exercises for mindful [...] filedocumented in this encounter Care Teams Food Products Tester Relationship Specialty Start Date End Date Sree High APRN [address] [place] [address] PCP - General Family Medicine 12/19/22 documented as of this encounter
--- OUTSIDE RECORDS SUMMARY | 2024-09-02 16:17 | XMS_ITS | Encounter Summary ---
Author Organization [facility] Address [facility] [place] [id number] Care Team Providers Care Automated Weaver Name Role Phone None Primary Care Provider Unavailabl e Reason for Referral * Psychiatric (Routine) - Closed Specialty Diagnoses / Procedures Referred By Chela doyle Referred To Contact Psychiatry Diagnoses Psychophysiologic insomnia Sharla Kirkland MD [facility] [place] [address] Loli Valerio, PhD [facility] [place] [address] Referral ID Status Reason Start Date Expiration Date V isits Requested Visits Authorized [id number] Closed Consult, Test & Treat 06/07/2022 06/07/2023 1 1 Encounter Details Date Type Department Care Team (Latest Contact Info) Description 06/07/2022 10:45 AM EDT TH Visit (TeleHealth) Sleep Center at [facility] [address] [place] [address] Flora Olivares, RT Psychophysiologic insomnia (Primary Dx); [...] this encounter Progress Notes * Flora Olivares, CONCRETE CURER - 06/07/2022 10:45 AM EDT Sleep Medicine Clinical Health Specialist Brief Follow-Up Note HPI:Ms Leandra Wilks is a 42 y.o. female seen for follow-up of obstructive sleep apnea. Date: 06/07/2022. Patient gives verbal consent to the tele-health clinic visit. She/He understands this visit may be billed to a similar clinic visit. Patient is at home in [place]. Excerpt provided by Dr Kirkland Sleep Study Date: 09/12/2021 ( HST) Weight: 228# Assessment: Ms. Leandra Wilks is a 41 y.o. female whose home sleep test was non-diagnostic for obstructive sleep apnea. Home sleep testing may underestimate sleep apnea severity. Results and recommendations relayed via [facility]. ?? Recommendations: To assess if CHUN [...] mouth breathing with nasal mask Symptom Benefit: [place]: Patient-reported last 4 scores: No flowsheet data [...] but staying asleep has gotten worse. Dr Krikland spoke to Leandra about considering CBTi to [...] chun symptoms by losing weight, using a chief guard, avoiding supine position. No new medical issues [...] if drowsy, if drowsy while driving to bone char puller and take a nap. 4) Patient [...] - Seen in conjunction with Flora Olivares, CAKE WINDER - Claustrophobic feeling and struggled during the [...] his approach. Referral to CBT -I group, [facility]. Recommendations: 1) CBT - I group program. [...] Scheduled Procedures Name Priority Associated Diagnoses Date/Ti il COLONOSCOPY, DIAGNOSTIC (WRV U 3.26) Biliary stricture [...] psychologist to work on eating behaviors Health Licensed Funeral Director is sending hand-outs with exercises for mindful eating, The Pause/STOP and Urge surfing. Patient will review and try implementing some behaviors before we meet again. movement Lifestyle On track(2021 10:29 AM EST) Jill Colmenares, TOBACCO SIEVE OPERATOR Note: Exercise goal is 150 min [...] (pediatric) documented in this encounter Care Teams Automated Weaver Relationship Specialty Start Date End Date None None PCP - General 06/07/22 12/18/22 documented as of this encounter
--- OUTSIDE RECORDS SUMMARY | 2024-09-02 16:17 | XMS_ITS | Encounter Summary ---
Author Organization [facility] [place] [address] Care Team Providers Care Strength And Conditioning Coach Name Role Phone None Primary Care Provider Unavailabl e Encounter Details Date Type Department Care Team ([facility] Contact Info) Description 12/18/2022 1:00 PM EST Office Visit [place] [address] Anni Varela, STRAIGHT LINE EDGER [facility] [place] [address] Stacey Ly, RD [facility] [place] [address] Pre-op evaluation; Class 3 severe obesity with [...] has tried several weight loss attempts without terminal make up operator success.Has had a hard time losing on her own; thinks about her health issues and how much better she wouldfeel with weight loss. Pt started at [facility] for help with weight loss and through [...] (lbs.) Wt. Regain (lbs.) Dates Duration Comments [facility] WW- Jill Farooq APRN and Hailee Martínez [...] broiling, grilling, etc.) [x] Nutrition Counseling with STRAIGHT LINE EDGER and RD [] No longer buying tempting foods from grocery store [x] Not drinking with meals, sipping fluids throughout the day [] Cutting out soda [x] Cutting out fruit juice; eating fruit instead [] Increased physical activity [x] Pausing before eating a snack to assess if she's hungry Current Intake: Tracking Intake: advised pt to try [employer] marco a Who does meal planning, shopping [...] have a post-surgical follow-up scheduled with a [facility] psychologist for ~3 months after surgery; Continue [...] her to go the [facility] in [place], [place] so she did and had a [...] Surgery 3 weeks post-op 4 months post-op [place] Body Weight (based on BMI of 25): 146# 30-70% Excess Weight Loss: 171-204#; 50% Excess Weight Loss: 187# SUMMARY: Leandra Wilks has been referred for nutrition evaluation and diet instruction in anticipation ofbariatric surgery. Previous conservative attempts at weight loss through dieting have been unsuccessful over the shelter. Predicted weight loss with surgery is an [...] discuss with Dr. Borrero and Anni Varela, STRAIGHT LINE EDGER. 12/18/22: Pt reports no episodes of night [...] spaced about 4-6 hours apart. i. Try Wami or Wami CorePower protein drink ??? Take your time [...] shop with a list. ??? Start using [employer] marco a to track intake 2) Encouraged exercise as tolerated. 3) We reviewed the No Weight Gain Policy. 4) Patient to attend a pre-op educational class prior to surgery. Information given to patient: 1. [facility] Bariatric Surgery Education Handbook, a 102 page document (revision February 2012) which contains extensive information regarding pre and post- operative nutrition guidelines including: preop diet, Diet stages I-IV, hydration recommendations, protein guidelines, dumping syndrome, food intoleranc es, vitamin and mineral supplementation as well as a list of books and online bariatric resources. * Anni Varela APRN - 12/18/2022 1:00 PM EST [facility] Bariatric Surgery Evaluation Follow up Updates [...] Has not attended a Introduction to the [facility] Bariatric Surgery Programseminar, a comprehensive two hour meeting that provides a program overview, education on bariatric surgeries offered at [facility], risks and benefits, as well as patient expectations and follow up. [facility] Bariatric Surgery Program Educational seminars viewed 2. Bariatric Surgery Program evaluations with RD: Completed today 3. Program start weight: (06/17/21) 228 lbs WT at visit #1: Wt & BMI By Encounter Date Flowsheet Row Office Visit from 12/18/2022 in General Surgery at [facility] Office Visit from 10/09/2022 in General Surgery at [facility] Weight 108 kg (238 lb) 1 12/18/2022 [...] visit included: ?? Records re: GI at [facility] (2009) were reviewed in [facility]. Patient was [...] SA about 15 years ago (stayed at [facility] x 1 day). Today Leandra reports [...] Psychological evaluation done by Crystal Ferro, PhD, [facility] Weight and Wellness : no contraindication to bariatric surgery from a psychological perspective. Per Dr. Ferro: ?? Ongoing Recommendations: ??? Continue to meet regularly with your therapist ??? Continue to abstain from binge eating ??? Continue to maintain bariatric habit changes (e.g., eating slowly, eating and drinking, small portions, increasing exercise) Meet with a [facility] psychologist for a post-surgical check-in [facility] Initial Responses 10/08/2022 URICA - Readiness Score 13.67 (Preparation State) WEL-SF Total Scores 80 PHQ-2 SubScore 0 (Brief screen negative) GAD2 Subscore 1 (Brief screen negative) MADY 7 Total Scores - PROMIS 10 Physical Scores 37.4 PROMIS 10 Mental Scores 50.8 Total REAP-S Scores 32 TFEQ - Uncontrolled Eating (UE) 33.33 TFEQ-Cognitive Restraint (CR) 66.67 TFEQ-Emotional Eating 38.89 Food Insecurity Score 2 [place] Category I Result 0 (Negative) [place] Category II Result 1 (Negative) [place] Category III 0 (Negative) [place] Sleep Apnea Total 1 (Low Risk) Schooling [...] [x] psychiatric or rehab admissions (remote past, [facility]) Physical exam: Vital signs: Patient Vitals for [...] On track(2021 10:28 AM EST) Jill Colmenares, STRAIGHT LINE EDGER Note: Mindfulness/deep breathing practice to reduce cortisol -try for at least 10 minutes a day -try an ap such as headspace I have referred you to our psychologist to work on eating behaviors Health Soloist Dancer is sending hand-outs with exercises for mindful eating, The Pause/STOP and Urge surfing. Patient will review and try implementing some behaviors before we meet again. movement Lifestyle On track(2021 10:29 AM EST) Jill Colmenares, STRAIGHT LINE EDGER Note: Exercise goal is 150 min a [...] whether serious comorbidity present COMPREHENSIVE METABOLIC PANEL Routine 12/18/2022 3:47 PM EST Pre-op evaluation Class 3 severe obesity with body mass index (BMI) of 40.0 to 44.9 in adult, unspecified obesity type, unspecified whether serious comorbidity present documented in this encounter Results * Nicotine and Metabolites (12/18/2022 4:01 PM EST) Nicotine (MARCH) <3.0 <3.0 ng/mL [facility] Comment: Test Performed by: [facility] [place] [address] Gate Guard: Erlin Orlando M.D. Ph.D.; CLIA# [id number] Cotinine (MARCH) <3.0 <3.0 ng/mL [facility] Comment: ADDITIONAL INFORMATION This test was developed and its performance characteristics determined by [facility] in a manner consistent with CLIA requirements. This test has not been cleared or approved by the U.S. Food and Drug Administration. Test Performed by: [facility] [place] [address] Gate Guard: Erlin Orlando M.D. Ph.D.; CLIA# [id number] Blood 12/18/2022 4:01 PM EST 12/19/2022 10:26 AM EST Narrative Resulting Agency Comment Spec In Lab Anni E Billings STRAIGHT LINE EDGER LAB SEND OUT ORDER FUNMI Performing Organization Address City/[facility]/ZIP Co de Phone Number [facility] [place] [address] * Vitamin B1, whole blood (12/18/2022 3:47 PM EST) Vit B1 Lvl Wb (MARCH) 139 70 - 180 nmol/L [facility] Comment: ADDITIONAL INFORMATION This test was developed and its performance characteristics determined by [facility] in a manner consistent with CLIA requirements. This test has not been cleared or approved by the U.S. Food and Drug Administration. Test Performed by: [facility] [address] [address] Gate Guard: Erlin Orlando M.D. Ph.D.; CLIA# [id number] Blood Venous Draw / Unknown 12/18/2022 3:47 PM EST 12/19/2022 12:54 PM EST Narrative Resulting Agency Comment Spec In Lab Anni Varela APRN LAB SEND OUT ORDER FUNMI Performing Organization Address [facility] Co de Phone Number [facility] [place] [address] * Vitamin B12 (12/18/2022 3:47 PM EST) Vitamin B12 309 232 - 1,245 pg/mL [facility] Blood 12/18/2022 3:47 PM EST 12/18/2022 4:01 PM EST Narrative Resulting Agency Comment Spec In Lab Anni E Nichole STRAIGHT LINE EDGER CHEMISTRY ORDERABL ES Performing Organization Address City/[facility] Co de Phone Number [facility] [place] [address] * Vitamin D, 25-Hydroxy (12/18/2022 3:47 PM EST) Vitamin D Total 25 OH 21 21 - 100 ng/mL [facility] Vit D Interp Insufficient [facility] Blood 12/18/2022 3:47 PM EST 12/18/2022 4:01 PM EST Narrative Resulting Agency Comment Spec In Lab Anni E Billings STRAIGHT LINE EDGER CHEMISTRY ORDERABL ES Performing Organization Address [facility] Co de Phone Number [facility] [place] [address] * PTH (12/18/2022 3:47 PM EST) Parathyroid Hormone 42 15 - 65 pg/mL [facility] Blood 12/18/2022 3:47 PM EST 12/18/2022 4:01 PM EST Narrative Resulting Agency Comment Spec In Lab Anni E Billings STRAIGHT LINE EDGER CHEMISTRY ORDERABL ES Performing Organization Address [facility] Phone Number [facility] [place] [address] * Iron and TIBC (12/18/2022 3:47 PM EST) Iron 100 30 - 150 mcg/dL [facility] TIBC 347 250 - 450 mcg/dL [facility] Iron Saturation 29 20 - 50 % [facility] Blood 12/18/2022 3:47 PM EST 12/18/2022 4:01 PM EST Narrative Resulting Agency Comment Spec In Lab Anni E Billings STRAIGHT LINE EDGER CHEMISTRY ORDERABL ES Performing Organization Address [facility] de Phone Number [facility] [place] [address] * (ABNORMAL) Hemogram (12/18/2022 3:47 PM EST) White Blood Cell 7.9 4.0 - 9.5 x10(3)/mc L [facility] Red Blood Cell 4.28 4.00 - 5.21 x10(6)/mc L [facility] Hemoglobin 12.8 11.7 - 15.5 g/dL [facility] Hematocrit 36.9 35.7 - 45.8 % [facility] Mean Cell Volume 86.2 82.6 - 94.[address] [facility] Mean Cell Hemoglobin 29.9 27.1 - 32.0 pg [facility] Mean Cell Hemoglobin Concentration 34.7 31.7 - 35.0 g/dL [facility] Platelet 380(H) 145 - 357 x10(3)/mc L [facility] RDW Standard Deviation 40.8 37.0 - 46.0 fL [facility] RDW coefficient of variation 13.0 11.5 - 14.1 % [facility] Mean Platelet Volume 8.8 7.6 - 12.[address] [facility] NRBC% auto 0.0 % [facility] NRBC Absolute 0.000 0.000 - 0.000 x10(3)/mc L [facility] Blood 12/18/2022 3:47 PM EST 12/18/2022 4:01 PM EST Narrative Resulting Agency Comment Spec In Lab Anni E Billings STRAIGHT LINE EDGER HEMATOLOGY ORDERAB LES Performing Organization Address [facility] Co de Phone Number [facility] [place] [address] * Folate, serum (12/18/2022 3:47 PM EST) Folate 11.7 4.8 - 24.2 ng/mL [facility] Blood 12/18/2022 3:47 PM EST 12/18/2022 4:01 PM EST Narrative Resulting Agency Comment Spec In Lab Anni E Billings STRAIGHT LINE EDGER CHEMISTRY ORDERABL ES Performing Organization Address [facility] de Phone Number [facility] [place] [address] * Ferritin (12/18/2022 3:47 PM EST) Ferritin 106 15 - 150 ng/mL [facility] Comment: Pediatric reference ranges not verified at [facility], interpret with caution. Reference ranges for females greater than 50 years of age approach values for men, i.e., 30-400 ng/mL. Blood 12/18/2022 3:47 PM EST 12/18/2022 4:01 PM EST Narrative Resulting Agency Comment Spec In Lab Anni Varela STRAIGHT LINE EDGER CHEMISTRY ORDERABL ES [facility] [place] [address] * Comprehensive metabolic panel (non-fasting) (12/18/2022 3:47 PM EST) Glucose 70 65 - 199 mg/dL [facility] Comment:Diabetes: >=200 mg/d L plus symptoms Blood Urea Nitrogen 15 8 - 18 mg/dL [facility] Creatinine 0.71 0.70 - 1.20 mg/dL [facility] Sodium 139 135 - 145 mmol/L [facility] Potassium 4.0 3.5 - 5.0 mmol/L [facility] Comment: Please note: ??Patients with WBC >100,000 may have falsely elevated Potassium levels. ??For accurate Potassium quantification in these patients send serum separator tube (gold top) for subsequent determinations. ??Contact the Clinical Chemistry Laboratory if there are any questions. Chloride 103 98 - 107 mmol/L [facility] Carbon Dioxide 24 22 - 31 mmol/L [facility] Anion Gap 12 5 - 15 mmol/L [facility] Calcium 9.3 8.5 - 10.5 mg/dL [facility] Protein, Total 6.9 6.1 - 8.0 g/dL [facility] Albumin 4.4 3.2 - 5.2 g/dL [facility] Aspartate Aminotransferase 16 0 - 30 unit/L [facility] Alanine Aminotransferase 17 0 - 30 unit/L [facility] Alkaline Phosphatase 103 35 - 105 unit/L [facility] Bilirubin, Total 0.3 0.2 - 1.3 mg/dL [facility] Est Glomerular Filtration Rate 107 >=60 mL/min/1. 73 m?? [facility] Comment: This patient's estimated GFR [...] Agency Comment Spec In Lab Anni E Billings STRAIGHT LINE EDGER CHEMISTRY ORDERABL ES [facility] [place] [address] documented in this encounter Visit Diagnoses Diagnosis Pre-op evaluation Preoperative examination, unspecified Class 3 severe obesity with body mass index (BMI) of 40.0 to 44.9 in adult, unspecified obesity type, unspecified whether serious comorbidity present documented in this encounter Care Teams Strength And Conditioning Coach Relationship Specialty Start Date End Date None None PCP - General 06/07/22 12/18/22 documented as of this encounter
--- OUTSIDE RECORDS SUMMARY | 2024-09-02 16:17 | XMS_ITS | Encounter Summary ---
Author Organization [facility] Address [facility] [place] [address] Care Team Providers Care Gas Welding Equipment Mechanic Name Role Phone None Primary Care Provider Unavailabl e Encounter Details Date Type Department Care Team ([facility] Contact Info) Description 08/02/2022 Notes Only Weight and Wellness at [address] [address] Crystal Ferro, PhD [facility] [place] [place] [address] Social History Tobacco Use Types Packs/Day Years [...] N [facility] AT [address] [address] Dept: [phone] 08/02/2022 10:43 AM I spoke to patient's [...] post-surgical followup with a member of the [facility] psychology team. Crystal Ferro, PhD documented in [...] psychologist to work on eating behaviors Health Release Of Information Clerk is sending hand-outs with exercises for [...] on filedocumented in this encounter Care Teams Gas Welding Equipment Mechanic Relationship Specialty Start Date End Date None None PCP - General 06/07/22 12/18/22 documented as of this encounter
--- OUTSIDE RECORDS SUMMARY | 2024-09-02 16:17 | XMS_ITS | Encounter Summary ---
Author Organization [facility] [place] [address] Care Team Providers Care Production Zone Leader Name Role Phone LennoxKatemary Gonzalez APRN Primary Care Provider [phone] Encounter Details Date Type Department Care Team ([facility] st Contact Info) Description 12/26/2022 1:00 PM EST Office [place] [address] Anita Aviles, BRYANNA [facility] [address] Blaire Chowdhury, RD [facility] [address] Adult BMI 40.0-44.9 kg/sq m; Encounter for [...] Aviles APRN - 12/26/2022 1:00 PM EST [facility] BARIATRIC SUPPORT TEAM CONTACT NUMBERS (Mon-Fri 8am - 5pm): General Surgery and Bariatric Surgery [phone] Bariatric Surgeons: Doctors. Sosa [phone] Bargain Table Clerk: [phone] Dietitians: [phone] Outside of regular business hours, including weekends and holidays: Ask for General Surgery resident inventory control/shipping receiving [phone] BEFORE YOUR SURGERY: Questions for your doctor, specialist or pharmacist: Ask your doctor about medication suggestions if you currently take medications that are larger than the size of a tylenol or calcium pill. Large pills need to be crushed (if permitted by the drug utilities equipment repairer), taken in smaller size pills, or taken [...] weeks at the General Surgery Outpatient Clinic ([employer] Lead 4L, [facility]). 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 (Space 2 hours apart from Calcium.) Take bariatric supplements as directed on the label PROTEIN SUPPLEMENTS At least 20 g protein per serving (1 scoop or ???branz-mn-zocyr?? ) Under 200 calories for ???[id number]?? Under 100 calories per scoop for powder [...] The prescription is typically sent to the [facility] Pharmacy at discharge. Take the medication to [...] in a recliner more comfortable early post-surgery. [facility] Post-Bariatric Surgery Events Calendar Date Time period [...] for 10 days to prevent blood clots. electrical supervisor prescription at [facility] Pharmacy 2 weeks post surgery If you [...] 3 weeks: visits with surgeon or AIRCRAFT AVIONICS TECHNICIAN and dietitian Bring diet logs and complete [...] esophagus 4 months: Visits with RD /AIRCRAFT AVIONICS TECHNICIAN Bring complete list of medications and supplements including dose and type (or take photos) Have lab work done before your appointment. Bring copies of any labwork that may have been done by your PCP 6.5 months Stop Ursodiol. No refills are needed. [address]/AIRCRAFT AVIONICS TECHNICIAN Bring complete list of medications and supplements including dose and type (or take photos) Have lab work done before your appointment. Bring copies of any labwork that may have been done by your PCP* 2 years and yearly for life visits with RD/AIRCRAFT AVIONICS TECHNICIAN Bring complete list of medications and supplements including dose and type (or take photos) Have lab work done before your appointment. Bring copies of any labwork that may have been done by your PCP Abbreviations: RD: registered dietitian. AIRCRAFT AVIONICS TECHNICIAN: nurse practitioner documented in this encounter Progress Notes * Anita Aviles APRN - 12/26/2022 1:00 PM EST BARIATRIC SURGERY PROGRAM [place], [place] [address] Reason for visit: [facility] for up coming bariatric surgery Leandra attended a comprehensive group pre-operative class today, which included discussion of pre and post operative instructions included in the [facility] Bariatric Surgery Program Education Handbook. The nutrition [...] Pt previously attended a Introduction to the [facility] Bariatric Surgery Program seminar,a two hour meeting that provides a program overview as well as expectations. The [facility] Bariatric Surgery Program Educational seminar requirement has [...] of surgery and post-op routine care/ locations: Admissions/SDP/PACU//3/2 Jean units ?? medications that increase the risk [...] through dieting have been unsuccessful over the jail. Advised patient that bariatric surgery is a [...] psychologist to work on eating behaviors Health Shredded Filler Cigar Maker Machine is sending hand-outs with exercises for [...] education documented in this encounter Care Teams Production Zone Leader Relationship Specialty Start Date End Date Sree High APRN [address] [place] [address] PCP - General Family Medicine 12/19/22 documented as of this encounter
--- OUTSIDE RECORDS SUMMARY | 2024-09-02 16:17 | XMS_ITS | Encounter Summary ---
Author Organization [facility] [place] [address] Care Team Providers Care Tax Attorney Name Role Phone None Primary Care Provider Unavailabl e Encounter Details Date Type Department Care Team (Latest Contact Info) Description 10/01/2022 4:30 PM EST TH Visit (TeleHealth) Weight and Wellness at [address] [phone] Russ Henry Class 2 severe obesity due [...] healthy future! Be well, Russ Henry Health Dredge Pipe Installer documented in this encounter Progress Notes * [...] to work on eating behaviors ?? Health Dredge Pipe Installer is sending hand-outs with exercises for [...] practice bariatric behaviors Future follow-up with health parent coach will address identified areas of concern: [...] increasing mindfulness throughout the day. Your health parent coach is well-equipped to guide you to find something to look forward to everyday. Eating behaviors: many people benefit from restricting the hours in which they eat. You can choose an eating window of 8-12 hours to start. Make a pact with yourself that you will not take in anything with caloric content outside this window. Your client consultant may make further recommendations documented in this [...] psychologist to work on eating behaviors Health Dredge Pipe Installer is sending hand-outs with exercises for [...] adult documented in this encounter Care Teams Tax Attorney Relationship Specialty Start Date End Date None None PCP - General 06/07/22 12/18/22 documented as of this encounter
--- OUTSIDE RECORDS SUMMARY | 2024-09-02 16:17 | XMS_ITS | Encounter Summary ---
Author Organization [facility] Address [facility] [place] [address] Care Team Providers Care Ordinary Seaman Name Role Phone None Primary Care Provider Unavailabl e Reason for Visit * Psychiatric (Routine) - Closed Specialty Diagnoses / Procedures Referred By Chela doyle Referred To Contact Psychiatry Diagnoses Psychophysiologic insomnia Sharla Kirkland MD [facility] [place] [address] Loli Valerio, PhD [facility] [address] [address] Referral ID Status Reason Start Date Expiration Date V isits Requested Visits Authorized [id number] Closed Consult, Test & Treat 06/07/2022 06/07/2023 1 1 Encounter Details Date Type Department Care Team (Latest Contact Info) Description 12/10/2022 2:00 PM EST TH Visit (TeleHealth) Psychiatry and Behavioral Health at [place] [phone] Crystal Ferro, PhD [facility] [place] [address] Insomnia, unspecified type Social History Tobacco Use Types Packs/Day Years Used Date Smoking Tobacco: Never Smokeless Tobacco: Never Sex and Gender Information Value Date Recorded Sex Assigned at Female 10/05/2021 8:56 AM EST Gender Identity Not on file Sexual Orientation Straight 10/05/2021 8: 56 AM EST documented as of this encounter Progress Notes * Crystal Ferro, PhD - 12/10/2022 2:00 PM EST [facility] Psychiatry and Behavioral Health, Behavioral Medicine Service Progress Note: Group Cognitive Behavioral Therapy for Insomnia Time Spent: 60 minutes Number of participants: 5 Leader: Crystal Ferro, PhD This group was conducted via telehealth. During the visit, Leandra was located in [place] at home. SUBJECTIVE: Chief Complaint: Insomnia Disorder, [...] On track(2021 10:28 AM EST) Jill Colmenares, LAND SURVEY TECHNICIAN Note: Mindfulness/deep breathing practice to reduce cortisol -try for at least 10 minutes a day -try an ap such as headspace I have referred you to our psychologist to work on eating behaviors Health Director Business Management is sending hand-outs with exercises for mindful eating, The Pause/STOP and Urge surfing. Patient will review and try implementing some behaviors before we meet again. movement Lifestyle On track(2021 10:29 AM EST) No Jill Farooq, LAND SURVEY TECHNICIAN Note: Exercise goal is 150 min [...] type documented in this encounter Care Teams Ordinary Seaman Relationship Specialty Start Date End Date None None PCP - General 06/07/22 12/18/22 documented as of this encounter
--- OUTSIDE RECORDS SUMMARY | 2024-09-02 16:17 | XMS_ITS | Encounter Summary ---
Author Organization [facility] Address [facility] [place] [address] Care Team Providers Care Automatic Bandsaw Tender Name Role Phone None Primary Care Provider Unavailabl e Reason for Visit * Psychiatric (Routine) - Closed Specialty Diagnoses / Procedures Referred By Chela doyle Referred To Contact Psychiatry Diagnoses Psychophysiologic insomnia Sharla Kirkland MD [facility] [place] [address] Loli Valerio, PhD [facility] [address] [place] [address] Referral ID Status Reason Start Date Expiration Date V isits Requested Visits Authorized [id number] Closed Consult, Test & Treat 06/07/2022 06/07/2023 1 1 Encounter Details Date Type Department Care Team (Latest Contact Info) Description 12/17/2022 2:00 PM EST TH Visit (TeleHealth) Psychiatry and Behavioral Health at [place] [phone] Crystal Ferro, PhD [facility] [place] [address] Insomnia, unspecified type Social History Tobacco Use Types Packs/Day Years Used Date Smoking Tobacco: Never Smokeless Tobacco: Never Sex and Gender Information Value Date Recorded Sex Assigned at Female 10/05/2021 8:56 AM EST Gender Identity Not on file Sexual Orientation Straight 10/05/2021 8: 56 AM EST documented as of this encounter Progress Notes * Crystal Ferro, PhD - 12/17/2022 2:00 PM EST [facility] Psychiatry and Behavioral Health, Behavioral Medicine Service Progress Note: Group Cognitive Behavioral Therapy for Insomnia Time Spent: 60 minutes Number of participants: 5 Leaders: Crystal Ferro, Ph.D. This group was conducted via telehealth. During the visit, Leandra was located in [place] at home. SUBJECTIVE: Chief Complaint: Insomnia Disorder, [...] to work on eating behaviors Health Supervisor Grower is sending hand-outs with exercises for [...] type documented in this encounter Care Teams Automatic Bandsaw Tender Relationship Specialty Start Date End Date None None PCP - General 06/07/22 12/18/22 documented as of this encounter
--- OUTSIDE RECORDS SUMMARY | 2024-09-02 16:17 | XMS_ITS | Encounter Summary ---
Author Organization [facility] Address [facility] [place] [address] Care Team Providers Care Resource Recovery Specialist Name Role Phone None Primary Care Provider Unavailabl e Reason for Visit * Reason Comments Establish Care Encounter Details Date Type Department Care Team ([facility] Contact Info) Description 10/09/2022 1:00 PM EST Office Visit General Surgery at [place] [phone] Iram Borrero MD [facility] [place] [address] Anni Varela, BRYANNA [facility] [place] [address] Blaire Chowdhury, RD [facility] [place] [address] Pre-op evaluation; Obesity, unspecified classification, unspecified obesity [...] BARIATRIC SURGERY PROGRAM FIRST VISIT Contact information: [facility] Administrative staff: Lorraine [phone], Kelsey [phone] Dietitian: [phone] Surgeons/ nurse practitioner: [phone] Nurse line: [phone] Bariatric Surgery Program educational information: Read the Bariatric Surgery Program Educational Handbook thoroughly, highlight important areas to remember. Write down any questions that you may have to discuss at next visit. Bring the Handbook to ALL pre-operative visits. Keep the handbook in a safe place for easy retrieval. Your next visits: All visits take place in the General Surgery Clinic, Elevator Mechanic Apprentice Area 4L 2nd visits with dietitian and [...] be crushed (if permitted by the drug occasional babysitter) or taken in liquid form for TWO [...] medications will need to be used sparingly snf after surgery to decrease risk of ulcer. [...] in your handbook. 2. Check out the [place] Society for Metabolic and Bariatric surgery (ASMBS) website for patient education - http://asmbs.org/patients 3. Nutrition and Activity apps- Baritastic, My Fitness Pal, Lose It 4. [facility] facebook page: [email or web address] documented in this encounter Progress Notes * Balire Chowdhury RD - 10/09/2022 1:00 PM EST Bariatric Surgery Program Initial Nutrition Assessment Leandra Wilks is a 42 y.o. female being seen today for a preoperative evaluation in anticipationof bariatric-metabolic surgery. SUBJECTIVE: Interest in bariatric surgery: Pt has tried several weight loss attempts without buttermaker success.Has had a hard time losing on her own; thinks about her health issues and how much better she wouldfeel with weight loss. Pt started at [facility] for help with weight loss and [...] (lbs.) Wt. Regain (lbs.) Dates Duration Comments [facility]- Jill Farooq APRN and Hailee Martínez RD [...] broiling, grilling, etc.) [x] Nutrition Counseling with AVIONICS INSTALLER and RD [] No longer buying tempting [...] not yesterday. 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 Previous conservative attempts at weight loss through dieting have been unsuccessful over the snf. Predicted weight loss with surgery is an [...] try a premade protein drink such as Cent[employer] Power. ??? Take your time when eating [...] to surgery. Information given to patient: 1. [facility] Bariatric Surgery Education Handbook, a 102 page [...] from the original note were not included. [facility] Bariatric Surgery Evaluation Reason for consultation: Leandra [...] Has not attended a Introduction to the [facility] Bariatric Surgery Programseminar, a comprehensive two hour meeting that provides a program overview, education on bariatric surgeries offered at [facility], risks and benefits, as well as patient expectations and follow up. [facility] Bariatric Surgery Program Educational seminars viewed 2. Bariatric Surgery Program evaluations with RD: Completed today 3. Program start weight: (06/17/21) 228 lbs WT at visit #1: Wt & BMI By Encounter Date Flowsheet Row TH Visit (TeleHealth) from 06/07/2022 in [facility] TH Visit (TeleHealth) from 02/14/2022 in [...] for about 15 years ago (stayed at [facility] 1 day). Patient Active Problem List [...] Psychological evaluation done by Crystal Ferro, PhD, [facility] Weight and Wellness : no contraindication to bariatric surgery from a psychological perspective. Per Dr. Ferro: ?? Ongoing Recommendations: ??? Continue to meet regularly with your therapist ??? Continue to abstain from binge eating ??? Continue to maintain bariatric habit changes (e.g., eating slowly, eating and drinking, small portions, increasing exercise) Meet with a [facility] psychologist for a post-surgical check-in [facility] Initial Responses 10/02/2022 URICA - Readiness Score 13.67 (Preparation State) WEL-SF Total Scores 80 PHQ-2 SubScore 0 (Brief screen negative) GAD2 Subscore 1 (Brief screen negative) MADY 7 Total Scores - PROMIS 10 Physical Scores 37.4 PROMIS 10 Mental Scores 50.8 Total REAP-S Scores 32 TFEQ - Uncontrolled Eating (UE) 33.33 TFEQ-Cognitive Restraint (CR) 66.67 TFEQ-Emotional Eating 38.89 Food Insecurity Score 2 [place] Category I Result 0 (Negative) [place] Category II Result 1 (Negative) [place] Category III 0 (Negative) [place] Sleep Apnea Total 1 (Low Risk) Schooling [...] [x] psychiatric or rehab admissions (remote past, [facility]) Physical exam: Vital signs: Patient Vitals for [...] a shared visit. Pending: ?? Will obtain [facility] records re: patient unsure if hx inflammatory [...] ??? Follow up in 2 months with PRODUCTION UNDERWRITER/CHANG/ ??? Preoperative Group Class ??? CBC and [...] psychologist to work on eating behaviors Health Ux Architect is sending hand-outs with exercises for [...] present documented in this encounter Care Teams Resource Recovery Specialist Relationship Specialty Start Date End Date None None PCP - General 06/07/22 12/18/22 documented as of this encounter
--- OUTSIDE RECORDS SUMMARY | 2024-09-02 16:17 | XMS_ITS | Encounter Summary ---
Author Organization [facility] Address [facility] [place] [address] Care Team Providers Care Residential Solar Sales Consultant Name Role Phone None Primary Care Provider Unavailabl e Encounter Details Date Type Department Care Team ([facility] st Contact Info) Description 12/18/2022 2:45 PM EST Office Visit General Surgery at [facility] [place] [address] Iram Borrero MD [facility] [place] [address] Class 3 severe obesity with body mass [...] surgery to be successful. Patient understands the scissors sharpener risks of vitamin deficiencies, internal hernias and [...] psychologist to work on eating behaviors Health Central Supply Manager is sending hand-outs with exercises for mindful eating, The Pause/STOP and Urge surfing. Patient will review and try implementing some behaviors before we meet again. movement Lifestyle On track(2021 10:29 AM EST) Jill Colmenares, CYLINDER DEVALVER Note: Exercise goal is 150 min a [...] present documented in this encounter Care Teams Residential Solar Sales Consultant Relationship Specialty Start Date End Date None None PCP - General 06/07/22 12/18/22 documented as of this encounter
--- OUTSIDE RECORDS SUMMARY | 2024-09-02 16:17 | XMS_ITS | Encounter Summary ---
Author Organization [facility] Address [facility] [place] [address] Care Team Providers Care Shuttleless Loom Weaver Name Role Phone None Primary Care Provider Unavailabl e Encounter Details Date Type Department Care Team ([facility] Contact Info) Description 09/26/2022 10:30 AM EST TH Visit (TeleHealth) Weight and Wellness at [address] [address] [facility] [place] [address] Adult BMI 39.0-39.9 kg/sq m Social History Tobacco Use Types Packs/Day Years Used Date Smoking Tobacco: Never Smokeless Tobacco: Never Sex and Gender Information Value Date Recorded Sex Assigned at Female 10/05/2021 8:56 AM EST Gender Identity Not on file Sexual Orientation Straight 10/05/2021 8: 56 AM EST documented as of this encounter Patient Instructions * Patient Instructions* Hailee Martínez RD - 09/26/2022 10:30 AM [...] in this encounter Progress Notes * Hailee Martínez, RD - 09/26/2022 10:30 AM EST Nutrition Intervention for Weight Management Initial RD visit with SIMONA Thompson 1980 Telehealth / telephone visit conducted while patient was at home at the following address: [address] [place] [phone] Weight Today: Wt Readings from Last 3 [...] previous notes from this property underwriter and [facility] provider for full account Typical Dietary [...] to work on eating behaviors ?? Health Lead Painter is sending hand-outs with exercises for [...] [] Needs additional fuv scheduled with this property underwriter in Return for no f/u needed. (OR) [...] Lifestyle On track(2021 10:29 AM EST) No Oseas, Jill L, CABLE OPERATOR Note: Follow up with sleep, do sleep study. Goal 7 hours of sleep nightly. Recommend consistent sleep and wake times, avoid electronics within one hour of sleep time stress management Lifestyle On track(2021 10:28 AM EST) Jill Colmenares, CABLE OPERATOR Note: Mindfulness/deep breathing practice to reduce cortisol -try for at least 10 minutes a day -try an ap such as headspace I have referred you to our psychologist to work on eating behaviors Health Lead Painter is sending hand-outs with exercises for mindful eating, The Pause/STOP and Urge surfing. Patient will review and try implementing some behaviors before we meet again. movement Lifestyle On track(2021 10:29 AM EST) Jill Colmenares, CABLE OPERATOR Note: Exercise goal is 150 min [...] adult documented in this encounter Care Teams Shuttleless Loom Weaver Relationship Specialty Start Date End Date None None PCP - General 06/07/22 12/18/22 documented as of this encounter
--- OUTSIDE RECORDS SUMMARY | 2024-09-02 16:17 | XMS_ITS | Encounter Summary ---
Author Organization [facility] Address [facility] [place] [address] Care Team Providers Care Vegetable Thinner Name Role Phone None Primary Care Provider Unavailabl e Encounter Details Date Type Department Care Team ([facility] Contact Info) Description 08/23/2022 11:30 AM EDT TH Visit (TeleHealth) Weight and Wellness at [address] [address] [facility] [place] [place] [address] Adult BMI 39.0-39.9 kg/sq m Social History [...] Progress Notes * Hailee Martínez, RD - 08/23/2022 11:30 AM EDT Nutrition Intervention for Weight Management Initial RD visit with SIMONA Thompson 1980 Telehealth / telephone visit conducted while patient was at home at the following address: [address] [place] [phone] Weight Today: Wt Readings from Last 3 [...] Loss History: See previous notes from this typewriter ribbon winder and [facility] provider for full account Typical Dietary [...] to work on eating behaviors ?? Health Platen Press Operator is sending hand-outs with exercises for [...] [] Needs additional fuv scheduled with this typewriter ribbon winder in No follow-ups on file. (OR) [x] Currently scheduled for: [x] 1st consecutive monthly nutrition visit [x] 2nd consecutive monthly nutrition visit [x] 3rd consecutive monthly nutrition visit (OR) [] Patient has met requirement of 3 consecutive monthly nutrition visits but agrees that ongoing support would be helpful and feasible. Above determined to the best ability of this typewriter ribbon winder. Patient will contact bariatric surgery team for [...] psychologist to work on eating behaviors Health Platen Press Operator is sending hand-outs with exercises for [...] adult documented in this encounter Care Teams Vegetable Thinner Relationship Specialty Start Date End Date None None PCP - General 06/07/22 12/18/22 documented as of this encounter
--- OUTSIDE RECORDS SUMMARY | 2024-09-02 16:17 | XMS_ITS | Encounter Summary ---
Author Organization [facility] Address [facility] [place] [address] Care Team Providers Care Mortgage Lender Name Role Phone None Primary Care Provider Unavailabl e Encounter Details Date Type Department Care Team ([facility] Contact Info) Description 07/18/2022 8:30 AM EDT TH Visit (TeleHealth) Weight and Wellness at [address] [address] [facility] [place] [address] Adult BMI 39.0-39.9 kg/sq m Social History [...] was at home at the following address: [address] [place] [phone] Weight Today: Wt Readings from Last 3 Encounters: 06/06/22 103.4 kg (228 lb) 02/14/22 95.7 kg (211 lb) 01/02/22 101.6 kg (224 lb) BMI Readings from Last 3 Encounters: 06/06/22 39.14 kg/m?? 02/14/22 36.02 kg/m?? 01/02/22 38.24 kg/m?? Interview: Weight Loss History: See previous notes from this justowriter operator and [facility] provider for full account Typical [...] to work on eating behaviors ?? Health Claims Adjuster is sending hand-outs with exercises for mindful [...] [x] Needs additional fuv scheduled with this justowriter operator in Return in about 1 month (around 08/17/2022) for Keely DOWNING. (OR) [] Currently scheduled for: [] 1st consecutive monthly nutrition visit [] 2nd consecutive monthly nutrition visit [] 3rd consecutive monthly nutrition visit (OR) [] Patient has met requirement of 3 consecutive monthly nutrition visits but agrees that ongoing support would be helpful and feasible. Above determined to the best ability of this justowriter operator. Patient will contact bariatric surgery team for [...] -great job with this sleep Lifestyle On track(02/15/ 2022 10:29 AM EST) No Jill Farooq APRN [...] psychologist to work on eating behaviors Health Claims Adjuster is sending hand-outs with exercises for mindful [...] adult documented in this encounter Care Teams Mortgage Lender Relationship Specialty Start Date End Date None None PCP - General 06/07/22 12/18/22 documented as of this encounter
--- OUTSIDE RECORDS SUMMARY | 2024-09-02 16:17 | XMS_ITS | Encounter Summary ---
Author Organization [facility] [place] [address] Care Team Providers Care Robotics Technician Name Role Phone None Primary Care Provider Unavailabl e Reason for Visit * Reason Onset Date Comments Prior Authorization 10/10/2022 Encounter Details Date Type Department Care Team ([facility] Contact Info) Description 10/10/2022 Telephone General Surgery at [facility] [place] [phone] Camille Gross Prior Authorization Social History Tobacco [...] get back to her. I checked the [place] Medicaid Provider Portal and this patient is [...] to work on eating behaviors Health Mechanical Cad Designer is sending hand-outs with exercises for [...] on filedocumented in this encounter Care Teams Robotics Technician Relationship Specialty Start Date End Date None None PCP - General 06/07/22 12/18/22 documented as of this encounter
--- OUTSIDE RECORDS SUMMARY | 2024-09-02 16:17 | XMS_ITS | Encounter Summary ---
Author Organization [facility] Address [facility] [place] [address] Care Team Providers Care Pr Manager Name Role Phone None Primary Care Provider Paytonabl e Encounter Details Date Type Department Care Team (Latest Contact Info) Description 07/11/2022 11:00 AM EDT TH Visit (TeleHealth) Weight and Wellness at [address] [address] Crystal Ferro, PhD [facility] [place] [address] Trauma and stressor-related disorder; Generalized anxiety disorder [...] N BETSY DOWNING WEIGHT AND WELLNESS AT [address] [address] Dept: [phone] 07/11/2022 11:30AM Leandra Wilks is a 42 [...] visit they were located at home in [place], [place]. Leandra Wilks is aware that for any urgent matter they can call [phone].. Plan: At today's visit (07/11) patient reported [...] psychologist to work on eating behaviors Health Weld Lay Out Worker is sending hand-outs with exercises for [...] disorder documented in this encounter Care Teams Pr Manager Relationship Specialty Start Date End Date None None PCP - General 06/07/22 12/18/22 documented as of this encounter
--- OUTSIDE RECORDS SUMMARY | 2024-09-02 16:17 | XMS_ITS | Encounter Summary ---
Author Organization [facility] [place] [address] Care Team Providers Care Staff Development Coordinator Rn Name Role Phone None Primary Care Provider Unavailabl e Encounter Details Date Type Department Care Team ([facility] Contact Info) Description 10/19/2022 Telephone General Surgery at [facility] [place] [phone] Lorraine Acevedo Social History Tobacco Use Types [...] track(2021 10:28 AM EST) Jill Colmenares, INDUSTRIAL EDUCATION TEACHER Note: Mindfulness/deep breathing practice to reduce cortisol -try for at least 10 minutes a day -try an ap such as headspace I have referred you to our psychologist to work on eating behaviors Health Microsoft Exchange Architect is sending hand-outs with exercises for mindful eating, The Pause/STOP and Urge surfing. Patient will review and try implementing some behaviors before we meet again. movement Lifestyle On track(2021 10:29 AM EST) Jill Colmenares, INDUSTRIAL EDUCATION TEACHER Note: Exercise goal is 150 min [...] on filedocumented in this encounter Care Teams Staff Development Coordinator Rn Relationship Specialty Start Date End Date None None PCP - General 06/07/22 12/18/22 documented as of this encounter
--- OUTSIDE RECORDS SUMMARY | 2024-09-02 16:17 | XMS_ITS | Encounter Summary ---
Author Organization [facility] Address [facility] [place] [address] Care Team Providers Care Caramel Candy Maker Helper Name Role Phone Debby Puri MD Primary Care Provider Encounter Details Date Type Department Care Team (Late st Contact Info) Description 05/10/2022 2:00 PM EDT Office Visit [facility] at [facility] [address] [place] [address] Flora Olivares, RT CHUN on CPAP Social History Tobacco Use Types Packs/Day Years Used Date Smoking Tobacco: Never Smokeless Tobacco: Never Sex and Gender Information Value Date Recorded Sex Assigned at Female 10/05/2021 8:56 AM EST Gender Identity Not on file Sexual Orientation Straight 10/05/2021 8: 56 AM EST documented as of this encounter Progress Notes * Flora Olivares, SUPERVISOR CYTOLOGY - 05/10/2022 2:00 PM EDT Sleep Medicine [...] face to face: 45 Min. Reccomendations: 1) [facility] Script: 2) Follow-up: RTC 6-8 weeks in [...] work on eating behaviors Health Shrink Pit Operator is sending hand-outs with exercises for [...] (pediatric) documented in this encounter Care Teams Caramel Candy Maker Helper Relationship Specialty Start Date End Date Debby Puri MD [address] [place] [address] [address] [facility] [address] [place] [address] PCP - General Family Medicine 07/13/20 06/06/22 documented as of this encounter
--- OUTSIDE RECORDS SUMMARY | 2024-09-02 16:17 | XMS_ITS | Encounter Summary ---
Author Organization [facility] Address [facility] [place] [address] Care Team Providers Care Skein Washer Name Role Phone None Primary Care Provider [...] psychologist to work on eating behaviors Health Chemists is sending hand-outs with exercises for mindful [...] on filedocumented in this encounter Care Teams Skein Washer Relationship Specialty Start Date End Date None None PCP - General 06/07/22 12/18/22 documented as of this encounter
--- OUTSIDE RECORDS SUMMARY | 2024-09-02 16:17 | XMS_ITS | Encounter Summary ---
Author Organization [facility] [place] [address] Care Team Providers Care Warehouse Guard Name Role Phone None Primary Care Provider Anthony e Encounter Details Date Type Department Care Team ([facility] Contact Info) Description 10/18/2022 Telephone General Surgery at [facility] [place] [address] Anni Varela APRN [facility] [place] [address] Social History Tobacco Use Types Packs/Day Years [...] psychologist to work on eating behaviors Health Society Reporter is sending hand-outs with exercises for mindful [...] on filedocumented in this encounter Care Teams Warehouse Guard Relationship Specialty Start Date End Date None None PCP - General 06/07/22 12/18/22 documented as of this encounter
--- OUTSIDE RECORDS SUMMARY | 2024-09-02 16:17 | XMS_ITS | Encounter Summary ---
Author Organization [facility] Address [facility] [place] [address] Care Team Providers Care State Inspector Name Role Phone None Primary Care Provider [...] psychologist to work on eating behaviors Health Nat Instructor is sending hand-outs with exercises for [...] on filedocumented in this encounter Care Teams State Inspector Relationship Specialty Start Date End Date None None PCP - General 06/07/22 12/18/22 documented as of this encounter
--- OUTSIDE RECORDS SUMMARY | 2024-09-02 16:17 | XMS_ITS | Encounter Summary ---
Author Organization [facility] Address [facility] [place] [address] Care Team Providers Care Supervisor Newspaper Deliveries Name Role Phone None Primary Care Provider Unavailabl e Reason for Visit * Psychiatric (Routine) - Closed Specialty Diagnoses / Procedures Referred By Chela doyle Referred To Contact Psychiatry Diagnoses Psychophysiologic insomnia Sharla Kirkland MD [facility] [place] [address] Loli Valerio, PhD [facility] [address] [place] [address] Referral ID Status Reason Start Date Expiration Date V isits Requested Visits Authorized [id number] Closed Consult, Test & Treat 06/07/2022 06/07/2023 1 1 Encounter Details Date Type Department Care Team (Latest Contact Info) Description 10/22/2022 2:00 PM EST TH Visit (TeleHealth) Psychiatry and Behavioral Health at [place] [phone] Crystal Ferro, PhD [facility] [place] [address] Insomnia, unspecified type Social History Tobacco Use Types Packs/Day Years Used Date Smoking Tobacco: Never Smokeless Tobacco: Never Sex and Gender Information Value Date Recorded Sex Assigned at Female 10/05/2021 8:56 AM EST Gender Identity Not on file Sexual Orientation Straight 10/05/2021 8: 56 AM EST documented as of this encounter Progress Notes * Crystal Ferro, PhD - 10/22/2022 2:00 PM EST [facility], Behavioral Medicine Service [...] Pertinent Mental Status Exam: WNL Leandra Mcintyre [place] verbal/interpersonal exchange with other participants: appropriate Leandra [...] psychologist to work on eating behaviors Health Campus Police Officer is sending hand-outs with exercises for mindful eating, The Pause/STOP and Urge surfing. Patient will review and try implementing some behaviors before we meet again. movement Lifestyle On track(2021 10:29 AM EST) Jill Colmenares, CLOTH SPONGER Note: Exercise goal is 150 min a [...] type documented in this encounter Care Teams Supervisor Newspaper Deliveries Relationship Specialty Start Date End Date None None PCP - General 06/07/22 12/18/22 documented as of this encounter
--- OUTSIDE RECORDS SUMMARY | 2024-09-02 16:17 | XMS_ITS | Encounter Summary ---
Author Organization [facility] Address [facility] [place] [address] Care Team Providers Care Dumping Machine Operator Name Role Phone Sree High APRN Primary Care Provider +1- [phone] Encounter Details Date Type Department Care Team [...] to work on eating behaviors Health Mat Weaver is sending hand-outs with exercises for mindful [...] on filedocumented in this encounter Care Teams Dumping Machine Operator Relationship Specialty Start Date End Date Sree High APRN [address] [place] [address] PCP - General Family Medicine 12/19/22 documented as of this encounter
--- OUTSIDE RECORDS SUMMARY | 2024-09-02 16:17 | XMS_ITS | Encounter Summary ---
Author Organization [facility] Address [facility] [place] [address] Care Team Providers Care Incident Commander Name Role Phone None Primary Care Provider [...] psychologist to work on eating behaviors Health Secret Code Expert is sending hand-outs with exercises for mindful [...] on filedocumented in this encounter Care Teams Incident Commander Relationship Specialty Start Date End Date None None PCP - General 06/07/22 12/18/22 documented as of this encounter
--- OUTSIDE RECORDS SUMMARY | 2024-09-02 16:17 | XMS_ITS | Encounter Summary ---
Author Organization [facility] Address [facility] [place] [address] Care Team Providers Care Air Conditioning Technician Name Role Phone Sree High APRN Primary Care Provider +1- [phone] Encounter Details Date Type Department Care Team (Late st Contact Info) Description 01/07/2023 2:30 PM EST Notes Only Weight and Wellness at [facility] [place] [address] Russ Henry Social History Tobacco Use Types [...] to work on eating behaviors ?? Health Supervisor Cigar Making Machine is sending hand-outs with exercises for [...] increasing mindfulness throughout the day. Your health assistant women's basketball coach is well-equipped to guide you to find something to look forward to everyday. Eating behaviors: many people benefit from restricting the hours in which they eat. You can choose an eating window of 8-12 hours to start. Make a pact with yourself that you will not take in anything with caloric content outside this window. Your beauty culturist may make further recommendations documented in this [...] to work on eating behaviors Health Supervisor Cigar Making Machine is sending hand-outs with exercises for [...] filedocumented in this encounter Care Teams Air Conditioning Technician Relationship Specialty Start Date End Date Sree High APRN [address] [place], [place] [address] [place] [address] PCP - General Family Medicine 12/19/22 documented as of this encounter
--- OUTSIDE RECORDS SUMMARY | 2024-09-02 16:17 | XMS_ITS | Encounter Summary ---
Author Organization [facility] [place] [address] Care Team Providers Care Tray Server Name Role Phone Debby Puri MD Primary Care Provider Encounter Details Date Type Department Care Team (Latest Contact Info) Description 05/30/2022 11:30 AM EDT TH Visit (TeleHealth) Weight and Wellness at [address] [address] Crystal Ferro, PhD [facility] [place] [address] Eating disorder, unspecified type; Trauma and stressor-related [...] N [facility] AND WELLNESS AT [address] [address] Dept: [phone] 05/30/2022 11:30AM Leandra Wilks is a 42 [...] visit they were located at home in [place], [place]. Leandra Wilks is aware that for any urgent matter they can call [phone].. Plan: At today's visit (05/30) patient reported [...] cream bars, ate 4 in a single sitting.[place] a sense of less control, described feeling [...] to work on eating behaviors Health Medical Sales Consultant is sending hand-outs with exercises for [...] disorder documented in this encounter Care Teams Tray Server Relationship Specialty Start Date End Date Debby Puri MD [address] [place] [address] [address] [place] [address] PCP - General Family Medicine 07/13/20 06/06/22 documented as of this encounter
--- OUTSIDE RECORDS SUMMARY | 2024-09-02 16:17 | XMS_ITS | Encounter Summary ---
Author Organization [facility] Address [facility] [place] [address] Care Team Providers Care Gold Charmer Name Role Phone None Primary Care Provider [...] psychologist to work on eating behaviors Health Administrator Health Care Facility is sending hand-outs with exercises for mindful [...] on filedocumented in this encounter Care Teams Gold Charmer Relationship Specialty Start Date End Date None None PCP - General 06/07/22 12/18/22 documented as of this encounter
--- OUTSIDE RECORDS SUMMARY | 2024-09-02 16:17 | XMS_ITS | Encounter Summary ---
Author Organization [facility] Address [facility] [place] [address] Care Team Providers Care Moisture Machine Tender Name Role Phone None Primary Care Provider Anthony e Encounter Details Date Type Department Care Team ([facility] Contact Info) Description 07/11/2022 Telephone Weight and Wellness at [address] [address] Crystal Ferro, PhD [facility] [place] [address] Social History Tobacco Use Types Packs/Day Years [...] [address] WEIGHT AND WELLNESS AT [address] [address] Dept: [phone] 07/11/2022 2:34 PM Spoke with Leandra Wilks's [...] psychologist to work on eating behaviors Health Dowel Inspector is sending hand-outs with exercises for [...] on filedocumented in this encounter Care Teams Moisture Machine Tender Relationship Specialty Start Date End Date None None PCP - General 06/07/22 12/18/22 documented as of this encounter
--- OUTSIDE RECORDS SUMMARY | 2024-09-02 16:17 | XMS_ITS | Encounter Summary ---
Author Organization [facility] [place] [address] Care Team Providers Care Real Estate Sales Supervisor Name Role Phone None Primary Care Provider Paytonabl e Encounter Details Date Type Department Care Team ([facility] Contact Info) Description 07/04/2022 Telephone Weight and Wellness at [address] [phone] Crystal Ferro, PhD [facility] [address] Social History Tobacco Use Types Packs/Day Years [...] mental health provider (Ludmila Stone) following pt's [employer] message, no answer so I left voicemail [...] psychologist to work on eating behaviors Health Box Folding Machine Operator is sending hand-outs with exercises for mindful eating, The Pause/STOP and Urge surfing. Patient will review and try implementing some behaviors before we meet again. movement Lifestyle On track(2021 10:29 AM EST) Jill Colmenares, DRAFTER (CAD) ELECTRONIC Note: Exercise goal is 150 min a [...] on filedocumented in this encounter Care Teams Real Estate Sales Supervisor Relationship Specialty Start Date End Date None None PCP - General 06/07/22 12/18/22 documented as of this encounter
--- OUTSIDE RECORDS SUMMARY | 2024-09-02 16:17 | XMS_ITS | Encounter Summary ---
Author Organization [facility] [place] [address] Care Team Providers Care Kicking Machine Operator Name Role Phone None Primary Care Provider Unavailabl e Encounter Details Date Type Department Care Team (Latest Contact Info) Description 07/05/2022 4:00 PM EDT TH Visit (TeleHealth) Weight and Wellness at [address] [phone] Russ Henry Class 2 severe obesity due [...] you again. Be well, Russ Henry Health Channel Turner documented in this encounter Progress Notes * [...] first at all eating events - plain croatian yogurt, with fruit, 1 tsp ground flaxseed, unsweetened coconut flakes, nuts/seeds; vegetables with peanut butter/doshi dip/croatian yogurt dips/hard boiled egg/slice of deli meat/cheese stick; fruits with nuts/nut; protein on salad; butter/cheese/1/2 cup lowfat cottage cheese/croatian yogurt ??? Practice Bariatric Drinking Behaviors - [...] to work on eating behaviors ?? Health Channel Turner is sending hand-outs with exercises for mindful [...] ahead with surgery Future follow-up with health head tennis coach will address identified areas of concern: [...] increasing mindfulness throughout the day. Your health head tennis coach is well-equipped to guide you to find something to look forward to everyday. Eating behaviors: many people benefit from restricting the hours in which they eat. You can choose an eating window of 8-12 hours to start. Make a pact with yourself that you will not take in anything with caloric content outside this window. Your inker machine may make further recommendations documented in this [...] psychologist to work on eating behaviors Health Channel Turner is sending hand-outs with exercises for mindful [...] adult documented in this encounter Care Teams Kicking Machine Operator Relationship Specialty Start Date End Date None None PCP - General 06/07/22 12/18/22 documented as of this encounter
--- OUTSIDE RECORDS SUMMARY | 2024-09-02 16:17 | XMS_ITS | Encounter Summary ---
Author Organization [facility] [place] [address] Care Team Providers Care Cemetery Manager Name Role Phone None Primary Care Provider Paytonabl e Encounter Details Date Type Department Care Team ([facility] Contact Info) Description 08/23/2022 Notes Only Weight and Wellness at [address] [address] Crystal Ferro, PhD [facility] [place] [address] Social History Tobacco Use Types Packs/Day Years [...] RD today and we followed up via [facility]. She denied any binge eating in [...] have a post-surgical follow-up scheduled with a [facility] psychologist for ~3 months after surgery. Ongoing Recommendations: ?? Continue to meet regularly with your therapist ?? Continue to abstain from binge eating ?? Continue to maintain bariatric habit changes (e.g., eating slowly, eating and drinking, small portions, increasing exercise) ?? Meet with a [facility] psychologist for a post-surgical check-in Crystal [...] psychologist to work on eating behaviors Health Vacuum Worker is sending hand-outs with exercises for [...] on filedocumented in this encounter Care Teams Cemetery Manager Relationship Specialty Start Date End Date None None PCP - General 06/07/22 12/18/22 documented as of this encounter
--- OUTSIDE RECORDS SUMMARY | 2024-09-02 16:17 | XMS_ITS | Encounter Summary ---
Author Organization [facility] Address [facility] [place] [address] Care Team Providers Care Media Intern Name Role Phone None Primary Care [...] psychologist to work on eating behaviors Health Bed Rubber is sending hand-outs with exercises for [...] on filedocumented in this encounter Care Teams Media Intern Relationship Specialty Start Date End Date None None PCP - General 06/07/22 12/18/22 documented as of this encounter
--- OUTSIDE RECORDS SUMMARY | 2024-09-02 16:17 | XMS_ITS | Encounter Summary ---
Author Organization [facility] [place] [address] Care Team Providers Care Arabic Professor Name Role Phone None Primary Care Provider Unavailabl e Encounter Details Date Type Department Care Team ([facility] Contact Info) Description 08/27/2022 Notes Only General Surgery at [facility] [place] [address] Kelsey Palmer Social History Tobacco Use Types [...] included. From: Kelsey Montano [facility] Sent: Saturday, August 27, 2022 4:23 PM To: '[email or web address]' <[email or web address]> Subject: RE: Appointment EXTERNAL Ramon Mobley - It does appear you have to meet with the dietitian 1 more month before we can have you come in to meet with the surgeon. Once you have your September diet visit you will have met your insurance requirements for surgery. I see you are scheduled with the health coach tour driver for 10/01/22, in addition to that visit you will need another meeting with dietitian as well. In good health, Kelsey Montano Bariatric Surgery Coordinator Section of General Surgery Division of Bariatric Surgery [facility] From: cooper <[email or web address]> Sent: Wednesday, August 24, 2022 3:49 PM To: Dorothy [email or web address]> Subject: Appointment EXTERNAL Hi! I believe [...] On track(2021 10:29 AM EST) Jill Colmenares, ADHESIVE PRIMER Note: Follow up with sleep, do sleep [...] psychologist to work on eating behaviors Health Whiteprinting Machine Operator is sending hand-outs with exercises [...] on filedocumented in this encounter Care Teams Arabic Professor Relationship Specialty Start Date End Date None None PCP - General 06/07/22 12/18/22 documented as of this encounter
--- OUTSIDE RECORDS SUMMARY | 2024-09-02 16:17 | XMS_ITS | Encounter Summary ---
Author Organization [facility] [place] [address] Care Team Providers Care Financial Institution Branch Manager Name Role Phone Sree High APRN Primary Care Provider [phone] Reason for Visit * Auth/Cert (Routine) Specialty Diagnoses / Procedures Referred By Chela t Referred To Contact Diagnoses Morbid (severe) obesity due to excess calories Morbid Obesity Procedures PRO LAP GASTRIC BYPASS/RENATO-EN-Y PRO UPPER GI ENDOSCOPY, DIAGNOSTIC @LAPAROSCOPIC GASTROPLASTY W/ RENATO-EN-Y CONSTRUCTION (WRVU 29.4) EGD, UPPER GI ENDOSCOPY Iram Lee MD [facility] [place] [address] [facility] Referral ID Status Reason Start Date Expiration Date Visits Re quested Visits Authorized [id number] 1 1 Encounter Details Date Type Department Care Team (Late st Contact Info) Description 01/10/2023 12:42 PM EST - 01/10/2023 5:27 PM EST Surgery [place] [address] Iram Lee MD [facility] [place] [address] @LAPAROSCOPIC GASTROPLASTY W/ RENATO-EN-Y CONSTRUCTION (WRVU 29.4) [...] RD; Anita Aviles APRN General Surgery at [facility] Arrive at: Auto Radiator Mechanic Area [phone] 04/26/2023 9:[address]; Anita Aviles APRN General Surgery at [facility] Arrive at: Auto Radiator Mechanic Area Instructions Given to Patient at Discharge: Patient Instructions Discharge Instructions - Bariatric Surgery NEW PRESCRIPTIONS: ??? supervisor capacitor processing at [facility] today: ondansetron (Zofran), omeprazole (Prilosec), [...] - 5pm): General Surgery and Bariatric Surgery [phone] Bariatric Surgeons: Adair Cherry, Cristino [phone] Adoption Manager: [phone] Dietitians: [phone] Outside of regular business hours, including weekends and holidays: Ask for General Surgery resident calibration technician [phone] Please note, this call will be answered [...] Surgery Team in 3 weeks at the [facility] ([employer] [facility] 4L, [facility]). Future Appointments Date Time Provider Department Center 01/30/2023 9:30 AM Anita Aviles APRN [facility] SURG [facility] 04/26/2023 9:30 AM Anita Aviles APRN [facility] SURG [facility] WOUND CARE ??? You have steri-strips and [...] daily. ??? Please call or send a [employer] message if you do not have a [...] Follow up with primary care provider or finance specialist in 1-2 weeks in order to [...] RD; Anita Aviles APRN General Surgery at [facility] Arrive at: Auto Radiator Mechanic Area [phone] 04/26/2023 9:[address]; Anita Aviles APRN General Surgery at [facility] Arrive at: Auto Radiator Mechanic Area [phone] Signed: Raul Ho MD [facility] Physician: Sree High APRN [address] [facility] [id number] documented in this encounter Discharge Instructions * Patient Instructions* Natalee Winn MD - 01/11/2023 9:11 AM EST Images from the original note were not included. 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 Future Appointments Date Time Provider Department Center 01/30/2023 9:30 AM Anita Aviles APRN [facility] SURG [facility] 04/26/2023 9:30 AM Anita Aviles APRN [facility] SURG [facility] WOUND CARE You have steri-strips and Band-Aids [...] twice daily. Please call or send a [employer] message if you do not have a [...] Follow up with primary care provider or finance specialist in 1-2 weeks in order to [...] BR. Voiding adequately, +BM today. Surgical sites WEIGHER AND CRUSHER with steristrips cdi, no drainage or signs of infection. AVS given andreviewed with patient, questions answered, pt stated understanding. Prescriptions to be picked up at [facility] after discharge. PIV removed by this [...] liquid 975 mg 975 mg Oral [facility] Raul Ho MD 975 mg at [...] injection 4 mg 4 mg Intravenous [facility] Natalee Winn MD 4 mg at [...] Surgery 6:54 AM 01/13/23 MIS service pager: [phone] * Katherin Kerns MD - 01/12/2023 7:40 [...] liquid 975 mg 975 mg Oral [facility] Raul Ho MD 975 mg at [...] injection 4 mg 4 mg Intravenous Q6H [facility] Natalee Winn MD 4 mg at [...] Surgery 7:40 AM 01/12/23 MIS service pager: [phone] Associated attestation - Iram Lee MD - [...] liquid 1,000 mg 1,000 mg Oral Q6H [facility] Natalee Winn MD 1,000 mg at [...] Surgery 8:39 AM 01/11/23 MIS service pager: [phone] Associated attestation - Iram Lee MD - [...] DOB; Age: 4 1980; 42 y.o. Room/Bed: [facility] Today's Date: 01/10/23 Attending: IRAM LEE [...] on patient's status. 2104: Patient's son, Abelino [phone], called and I updated him on patient's [...] date: 01/10/2023 Attending Physician: Iram Lee MD [facility] Minimally Invasive Surgery Pre-Operative H&P Patient evaluated day of surgery. Please see below for details of patient history as adapted from last clinic visit.No new findings or changes to medical history. No recent illnesses, cough, fever, diarrhea. Plan to proceed with surgery. Natalee Winn MD 01/10/23 12:43 PM MISpager [phone] Leandra attended a comprehensive group pre-operative class today, which included discussion of pre and post operative instructions included in the [facility] Bariatric Surgery Program Education Handbook. The nutrition [...] ??Education:??Pt previously attended a Introduction to the [facility] Bariatric Surgery Program seminar, a two hour meeting that provides a program overview as well as expectations. The [facility] Bariatric Surgery Program Educational seminar requirement has [...] surgery and post-op routine care/ locations: Admissions/SDP/PACU/4/3/2 [place] units ??? medications that increase the risk [...] days Patient receiving hospital care under [facility]- [facility] Admission (IP) status. Admission order reviewed. Health/Prescription Coverage: Primary Insurance: [place] Payor: [place] / Plan: [place] PRIMARY CARE PLUS / Product Type: *No Product type* / Secondary Insurance: N/A ; Prescription Coverage: Yes Preferred Pharmacy: [facility] - [place], [place] - [address] [facility] [address] [facility] [address] [facility] [address] [facility] [address] Advance Care Planning: Attempt Cardiopulmonary Resuscitation - Inpatient <no information> -Advanced Directive: Other (Surrogacy: Parents) Current Functional Ability: Independent Functional Status Prior to Admission: Independent Home Environment: Others in the home: significant other. Current Living Arrangements: home/apartment/condo. Accessibility Concerns:none noted. Current DME: none [address] [facility] [id number] Social & Family Supports: Extended Emergency Contact Information Primary Emergency Contact: JAXON BLAKE Address: [address] [place] [address] [facility] Mobile Relation: Life Partner Secondary Emergency Contact: Ozzy Granado Address: [address] [facility] Relation: Child Current Care Provided by: [...] via car when medically ready. Registered Nurse Cognos Developer / Estimating Engineer will continue to follow patient???s progress and remain available if situation changes for coordination of care, psychosocial support and/or discharge planning. Office of Care Management Chacorta Victor RN RN/CM - Cellphone: [phone] Pager: [phone] Covering Service RN/CM * Op Note - Iram Lee MD - 01/10/2023 2:01 PM EST [facility] Operative Note Patient Name: Leandra Wilks : [id number] MR#: [id number] Case Date: 01/10/2023 Surgeon: Surgeon(s) and Role: [...] from the point of transection, and a [id number] jejunojejunostomy was created between this point in [...] psychologist to work on eating behaviors [facility] Front Desk Clerk is sending hand-outs with exercises for [...] training 3 times a week -can use [employer] - 09/26/22 Lifestyle On track(2021 10:29 [...] 12:30 AM EST Upper GI Endoscopy, Diagnostic (28499) 01/10/2023 1:24 PM EST Class 3 severe obesity with body mass index (BMI) of 40.0 to 44.9 in adult, unspecified obesity type, unspecified whether serious comorbidity present Lap Gastric Bypass/Renato-En-Y (81142) 01/10/2023 1:24 PM EST Class 3 severe [...] EST) Glucose 134 65 - 199 mg/dL [facility] Comment:Diabetes: >=200 mg/d L plus symptoms Blood Urea Nitrogen 6(L) 8 - 18 mg/dL [facility] Creatinine 0.64(L) 0.70 - 1.20 mg/dL [facility] Sodium 139 135 - 145 mmol/L [facility] Potassium 3.3(L) 3.5 - 5.0 mmol/L [facility] Comment: Please note: ??Patients with WBC >100,000 may have falsely elevated Potassium levels. ??For accurate Potassium quantification in these patients send serum separator tube (gold top) for subsequent determinations. ??Contact the Clinical Chemistry Laboratory if there are any questions. Chloride 104 98 - 107 mmol/L [facility] Carbon Dioxide 27 22 - 31 mmol/L [facility] Anion Gap 8 5 - 15 mmol/L [facility] Calcium 8.4(L) 8.5 - 10.5 mg/dL [facility] Est Glomerular Filtration Rate 112 >=60 mL/min/1. 73 m?? [facility] Comment: This patient's estimated GFR was [...] In Lab Iram Lee MD CHEMISTRY ORDERABLES [facility] [address] * (ABNORMAL) Hemogram (01/12/2023 6:37 AM EST) White Blood Cell 9.4 4.0 - 9.5 x10(3)/mc L [facility] Red Blood Cell 3.71(L) 4.00 - 5.21 x10(6)/mc L [facility] Hemoglobin 11.1(L) 11.7 - 15.5 g/dL [facility] Hematocrit 31.7(L) 35.7 - 45.8 % [facility] Mean Cell Volume 85.4 82.6 - 94.4 fL [facility] Mean Cell Hemoglobin 29.9 27.1 - 32.0 pg [facility] Mean Cell Hemoglobin Concentration 35.0 31.7 - 35.0 g/dL [facility] Platelet 293 145 - 357 x10(3)/mc L [facility] RDW Standard Deviation 39.7 37.0 - 46.0 fL [facility] RDW coefficient of variation 12.9 11.5 - 14.1 % [facility] Mean Platelet Volume 9.3 7.6 - 12.9 fL [facility] NRBC% auto 0.0 % [facility] NRBC Absolute 0.000 0.000 - 0.000 x10(3)/ L [facility] Blood 01/12/2023 6:37 AM EST 01/12/2023 6:40 AM EST Narrative Resulting Agency Comment Spec In Lab Iram Lee MD HEMATOLOGY ORDERABLE S [facility] [place] [address] * POCT Glucose (01/11/2023 11:54 AM EST) Glucose, POC 104 65 - 199 mg/dL [facility] Comment: Supplemental ranges: <140 mg/dL before meals <180 mg/dL all other times of the day Blood 01/11/2023 11:5 4 AM EST 01/11/2023 11:54 AM EST Iram Lee MD POINT OF CARE TEST O RDERABLES Performing Organization Address City/[facility]/ZIP Co de Phone Number [facility] [place] [address] * (ABNORMAL) Urinalysis Microscopic Exam (01/11/2023 10:28 AM EST) RBC, Urine 5(H) 0 - 4 /HPF [facility] WBC, Urine 5 0 - 5 /HPF [facility] Squamous Epithelial Cells Raw Data, Urine 6(H) <=4 /HPF [facility] Hyaline Casts, Urine 2 0 - 2 /LPF [facility] Clean Catch Urine 01/11/2023 10:28 AM EST 01/11/2023 12:11 PM EST Narrative Resulting Agency Comment Spec In Lab Joan GAINES URINE ORDERABLES [facility] [place] [address] * (ABNORMAL) Urinalysis with reflex Culture (01/11/2023 10:28 AM EST) Glucose, Urine Dipstick Negative Negative mg/dL [facility] Protein, Urine Dipstick Negative Negative mg/dL [facility] Bilirubin, Urine Dipstick Negative Negative mg/dL [facility] Comment: Clinical correlation required for positive Urine Bilirubin results as false positive may occur with some drugs and drug related products. If a false positive is suspected a serum total bilirubin should be considered if clinically indicated. Urobilinogen, Urine Dipstick Normal Normal mg/dL [facility] pH, Urn (dipstick) 6.0 5.0 - 8.0 [facility] Blood, Urine Dipstick Negative Negative mg/dL [facility] Ketone, Urine Dipstick 15(A) Negative mg/dL [facility] Nitrite, Urine Dipstick Negative Negative [facility] Leukocytes, Urine Dipstick Small(A) Negative [facility] Appearance, Urine Dipstick Clear Clear [facility] Specific [place] Urine Automated 1.020 1.005 - 1.030 [facility] Color, Urine Dipstick Yellow Yellow [facility] Reflex to Culture No [facility] Clean Catch Urine 01/11/2023 10:28 AM EST 01/11/2023 12:11 PM EST Narrative Resulting Agency Comment Spec In Lab Iram Lee [place] [address] * (ABNORMAL) Differential, Automated (01/11/2023 7:00 AM EST) Neutrophil % 86.3 % [facility] Neutrophil Absolute 11.15(H) 1.70 - 6.10 x10(3)/mc L [facility] Lymph % 8.7 % [facility] Lymphocytes Abs 1.1 0.9 - 3.2 x10(3)/mc L [facility] Monocyte % 4.6 % [facility] Monocyte Abs 0.6 0.3 - 0.9 x10(3)/[facility] Eos % 0.0 % [facility] Eosinophils Abs 0.0 0.0 - 0.4 x10(3)/[facility] Basophil % 0.1 % [facility] Baso Absolute 0.0 0.0 - 0.1 x10(3)/ L [facility] Immature Gran % 0.30 % [facility] Comment: Immature granulocytes(IG's)percentage and absolute count will include metamyelocytes, myelocytes, and promyelocytes. Blood smears from CBCs yielding IG's will be scanned manually for concordance. If this scan disagrees with the automated IG or if promyelocytes are noted, a manual differential will be performed. Immature Gran Absolute 0.04 0.00 - 0.04 x10(3)/mc L [facility] Blood 01/11/2023 7:00 AM EST 01/11/2023 7:13 AM EST Narrative Resulting Agency Comment Spec In Lab Natalee Winn MD [place] [address] * (ABNORMAL) Hemogram (01/11/2023 7:00 AM EST) White Blood Cell 12.9(H) 4.0 - 9.5 x10(3)/ L [facility] Red Blood Cell 3.88(L) 4.00 - 5.21 x10(6)/mc L [facility] Hemoglobin 11.5(L) 11.7 - 15.5 g/dL [facility] Hematocrit 34.3(L) 35.7 - 45.8 % [facility] Mean Cell Volume 88.4 82.6 - 94.4 fL [facility] Mean Cell Hemoglobin 29.6 27.1 - 32.0 pg [facility] Mean Cell Hemoglobin Concentration 33.5 31.7 - 35.0 g/dL [facility] Platelet 345 145 - 357 x10(3)/mc L [facility] RDW Standard Deviation 40.8 37.0 - 46.0 fL [facility] RDW coefficient of variation 12.7 11.5 - 14.1 % [facility] Mean Platelet Volume 9.5 7.6 - 12.9 fL [facility] NRBC% auto 0.0 % [facility] NRBC Absolute 0.000 0.000 - 0.000 x10(3)/mc L [facility] Blood 01/11/2023 7:00 AM EST 01/11/2023 7:13 AM EST Narrative Resulting Agency Comment Spec In Lab Natalee Winn MD HEMATOLOGY ORDERABLE S Performing Organization Address City/State/[facility] Co de Phone Number [facility] [place] [address] * (ABNORMAL) Differential, Automated (01/11/2023 12:30 AM EST) Neutrophil % 93.3 % [facility] Neutrophil Absolute 12.77(H) 1.70 - 6.10 x10(3)/mc L [facility] Lymph % 4.0 % [facility] Lymphocytes Abs 0.6(L) 0.9 - 3.2 x10(3)/mc L [facility] Monocyte % 2.0 % [facility] Monocyte Abs 0.3 0.3 - 0.9 x10(3)/ L [facility] Eos % 0.0 % [facility] Eosinophils Abs 0.0 0.0 - 0.4 x10(3)/mc L [facility] Basophil % 0.1 % [facility] Baso Absolute 0.0 0.0 - 0.1 x10(3)/mc L [facility] Immature Gran % 0.60 % [facility] Comment: Immature granulocytes(IG's)percentage and absolute count will include metamyelocytes, myelocytes, and promyelocytes. Blood smears from CBCs yielding IG's will be scanned manually for concordance. If this scan disagrees with the automated IG or if promyelocytes are noted, a manual differential will be performed. Immature Gran Absolute 0.08(H) 0.00 - 0.04 x10(3)/mc L [facility] Blood 01/11/2023 12:3 0 AM EST 01/11/2023 12:45 AM EST Narrative Resulting Agency Comment Spec In Lab Natalee Winn MD HEMATOLOGY ORDERABLE S Performing Organization Address City/State/[facility] Co de Phone Number [facility] [place] [address] * (ABNORMAL) Hemogram (01/11/2023 12:30 AM EST) White Blood Cell 13.7(H) 4.0 - 9.5 x10(3)/mc L [facility] Red Blood Cell 4.02 4.00 - 5.21 x10(6)/mc L [facility] Hemoglobin 11.9 11.7 - 15.5 g/dL [facility] Hematocrit 35.1(L) 35.7 - 45.8 % [facility] Mean Cell Volume 87.3 82.6 - 94.4 fL [facility] Mean Cell Hemoglobin 29.6 27.1 - 32.0 pg [facility] Mean Cell Hemoglobin Concentration 33.9 31.7 - 35.0 g/dL [facility] Platelet 334 145 - 357 x10(3)/mc L [facility] RDW Standard Deviation 40.5 37.0 - 46.0 fL [facility] RDW coefficient of variation 12.7 11.5 - 14.1 % [facility] Mean Platelet Volume 9.3 7.6 - 12.9 fL [facility] NRBC% auto 0.0 % [facility] NRBC Absolute 0.000 0.000 - 0.000 x10(3)/mc L [facility] Blood 01/11/2023 12:3 0 AM EST 01/11/2023 12:45 AM EST Narrative Resulting Agency Comment Spec In Lab Natalee Winn MD HEMATOLOGY ORDERABLE S Performing Organization Address [facility] de Phone Number [facility] [place] [address] * Phosphorus (01/11/2023 12:30 AM EST) Phosphorus 3.1 2.5 - 4.5 mg/dL [facility] Blood 01/11/2023 12:3 0 AM EST 01/11/2023 12:45 AM EST Narrative Resulting Agency Comment Spec In Lab Natalee Winn MD CHEMISTRY ORDERABLES Performing Organization Address [facility] de Phone Number [facility] [place] [address] * Magnesium (01/11/2023 12:30 AM EST) Magnesium 0.74 0.69 - 1.07 mmol/L [facility] Blood 01/11/2023 12:3 0 AM EST 01/11/2023 12:45 AM EST Narrative Resulting Agency Comment Spec In Lab Natalee Winn MD CHEMISTRY ORDERABLES Performing Organization Address [facility] de Phone Number [facility] [place] [address] * (ABNORMAL) Basic Metabolic Panel (non-fasting) (01/11/2023 12:30 AM EST) Glucose 203(H) 65 - 199 mg/dL [facility] Comment:Diabetes: >=200 mg/d L plus symptoms Blood Urea Nitrogen 13 8 - 18 mg/dL [facility] Creatinine 0.75 0.70 - 1.20 mg/dL [facility] Sodium 134(L) 135 - 145 mmol/L [facility] Potassium 4.1 3.5 - 5.0 mmol/L [facility] Comment: Please note: ??Patients with WBC >100,000 may have falsely elevated Potassium levels. ??For accurate Potassium quantification in these patients send serum separator tube (gold top) for subsequent determinations. ??Contact the Clinical Chemistry Laboratory if there are any questions. Chloride 100 98 - 107 mmol/L [facility] Carbon Dioxide 22 22 - 31 mmol/L [facility] Anion Gap 12 5 - 15 mmol/L [facility] Calcium 8.7 8.5 - 10.5 mg/dL [facility] Est Glomerular Filtration Rate 101 >=60 mL/min/1. 73 m?? [facility] Comment: This patient's estimated GFR was [...] Winn MD CHEMISTRY ORDERABLES Performing Organization Address City/State/[facility] Co de Phone Number [facility] [place] [address] documented in this encounter Visit Diagnoses Diagnosis [...] PRN, Starting on Sat01/10/23 at 2145, Until 01/13/23 at 1732, Nausea, [...] , Routine 0542 (Given - Provider: Russ Blanton, MIKE)1122 (Given - Provider: Jill Valle, MIKE)1732 (Given - Provider: Jill Valle RN)2312 (Given [...] 09 (Given - Provider: Jill Valle, MIKE) enoxaparin (Lovenox) (40 mg/0.4 mL) subcutaneous injection 40 mg 40 mg, Subcutaneous, EVERY 12 HOURS SCHEDULED (2 times per day), First dose on Sat01/11/23 at 0900, Until Discontinued, Routine 1010 (Given - Provider: Antonella Jain RN)2019 (Given - Provider: Russ Blanton RN) 0848 (Given - Provider: Jill Valle, MIKE)2048 (Given - Provider: Russ Blanton RN) 0905 (Given - Provider: Jill Valle, MIKE) FLUoxetine (PROzac) (4 mg/mL) oral liquid 20 [...] Antonella Jain RN)1322 (Stopped - Provider: Antonella Jain, MIKE) ondansetron (pf) [...] Jain RN) 0014 (Given - Provider: Dayan Candelario, MIKE)0517 (Given - Provider: Russ Blanton, MIKE)1119 (Given - Provider: Jill Valle, MIKE)1732 (Given - Provider: Jill Valle, MIKE)2312 (Given - Provider: Russ Blanton, MIKE) 0549 (Given - Provider: Russ Blanton, MIKE)1214 [...] on 01/12/23 at 0900, Last dose on 2/25/23 at 1200, Administer over 60 Minutes, Warning Vesicant/Irritant Medication 0923 (New Bag - Provider: Jill Valle, MIKE)1043 (Stopped - Provider: Jill Valle, MIKE)1044 (New Bag - Provider: Jill Valle, RN)1059 (Stopped - Provider: Jill Valle, MIKE)1330 (New Bag - Provider: Jill Valle, RN - Comment: infusion slowed for toleranceY with NS for tolerance)1359 (Stopped - Provider: Jill Valle, MIKE)1509 (New Bag - Provider: Jill Valle RN - Comment: titrating for comfort)1745 (Stopped - Provider: Jill Valle, RN) propranoloL (Inderal) tablet 20 mg 20 [...] (dose and location) verified - Provider: Jill Valle, MIKE) sodium chloride 0.9 % (flush) (BD [...] open)2050 (Given - Provider: Russ Blanton RN) 09 (Given - Provider: Jill Valle RN) tamsulosin (Flomax) capsule 0.4 mg 0.4 mg, Oral, DAILY, First dose on Sat01/11/23 at 0900, Until Discontinued, DO NOT CRUSH OR OPEN, Routine 0853 (Given - Provider: Antonella Jain RN) 0850 (Not Given - Provider: Jill Valle RN - Reason: See comment - Comment: too large to swallow and unable to open.) 09 (Not Given - Provider: Jill Valle RN - Reason: See comment - Comment: too large for swallowing, can not open.) Continuous Medication Order 01/11/2023 01/12/2023 01/13/2023 lactated ringers infusion (CANCELED) 1,000 mL, at 125 mL/hr, Intravenous, CONTINUOUS, Starting on Char 01/10/23 at 1945, Until 01/12/23 at 1231 0308 (New Bag - Provider: Jessica Tam, MIKE)1132 (New Bag - Provider: Antonella Jain, MIKE)1927 (Rate/Dose Verify - Provider: Antonella Jain RN) 0039 (New Bag - Provider: Dayan Candelario RN)0934 (Paused - Provider: Jill Valle, MIKE - Comment: changed to NS for KCl [...] at 1732, Pain, Moderate-Severe pain 4-10, Routine 183 (Given - Provider: Antonella Jain RN) 1353 (Given - Provider: Jill Valle, RN)1947 (Given - Provider: Russ Blanton, MIKE)2312 (Given - Provider: Russ Blanton RN) 0446 (Given - Provider: Russ Blanton RN)0917 (Given - Provider: Jill Valle, MIKE) prochlorperazine [...] patch. documented in this encounter Care Teams Financial Institution Branch Manager Relationship Specialty Start Date End Date Sree High APRN [address] [place] [address] [address] [place] [address] PCP - General Family Medicine 12/19/22 documented as of this encounter
--- OUTSIDE RECORDS SUMMARY | 2024-09-02 16:17 | XMS_ITS | Encounter Summary ---
Author Organization [facility] Address [facility] [place] [address] Care Team Providers Care Catering Sales Manager Name Role Phone None Primary Care Provider Unavailabl e Reason for Visit * Psychiatric (Routine) - Closed Specialty Diagnoses / Procedures Referred By Chela doyle Referred To Contact Psychiatry Diagnoses Psychophysiologic insomnia Sharla Kirkland MD [facility] [address] Loli Valerio, PhD [facility] [address] [address] Referral ID Status Reason Start Date Expiration Date V isits Requested Visits Authorized [id number] Closed Consult, Test & Treat 06/07/2022 06/07/2023 1 1 Encounter Details Date Type Department Care Team (Latest Contact Info) Description 12/03/2022 2:00 PM EST TH Visit (TeleHealth) Psychiatry and Behavioral Health at [place] [phone] Crystal Ferro, PhD [facility] [place] [address] Insomnia, unspecified type Social History Tobacco Use Types Packs/Day Years Used Date Smoking Tobacco: Never Smokeless Tobacco: Never Sex and Gender Information Value Date Recorded Sex Assigned at Female 10/05/2021 8:56 AM EST Gender Identity Not on file Sexual Orientation Straight 10/05/2021 8: 56 AM EST documented as of this encounter Progress Notes * Crystal Ferro, PhD - 12/03/2022 2:00 PM EST [facility] Psychiatry and Behavioral Health, Behavioral [...] On track(2021 10:28 AM EST) Jill Colmenares, STOCK SUPERVISOR Note: Mindfulness/deep breathing practice to reduce cortisol -try for at least 10 minutes a day -try an ap such as headspace I have referred you to our psychologist to work on eating behaviors Health Scheduling Coordinator is sending hand-outs with exercises for mindful eating, The Pause/STOP and Urge surfing. Patient will review and try implementing some behaviors before we meet again. movement Lifestyle On track(2021 10:29 AM EST) No Jill Farooq, STOCK SUPERVISOR Note: Exercise goal is 150 min [...] type documented in this encounter Care Teams Catering Sales Manager Relationship Specialty Start Date End Date None None PCP - General 06/07/22 12/18/22 documented as of this encounter
--- OUTSIDE RECORDS SUMMARY | 2024-09-02 16:17 | XMS_ITS | Encounter Summary ---
Author Organization [facility] [place] [address] Care Team Providers Care Cleaning Handyman Name Role Phone Sree High APRN Primary Care Provider [phone] Reason for Visit * Auth/Cert (Routine) Specialty Diagnoses / Procedures Referred By Contac t Referred To Contact Diagnoses Morbid (severe) obesity due to excess calories Morbid Obesity Procedures PRO LAP GASTRIC BYPASS/RENATO-EN-Y PRO UPPER GI ENDOSCOPY, DIAGNOSTIC @LAPAROSCOPIC GASTROPLASTY W/ RENATO-EN-Y CONSTRUCTION (WRVU 29.4) EGD, UPPER GI ENDOSCOPY Iram Borrero MD [facility] [place] [address] [facility] Referral ID Status Reason Start Date Expiration Date Visits Re quested Visits Authorized [id number] 1 1 Encounter Details Date Type Department Care Team (Late st Contact Info) Description 01/10/2023 1:24 PM EST Anesthesia Event [place] [address] Monet Banks MD [facility] [place] [address] Twyla Ohara MD [facility] [place] [address] Anesthesia Record Procedure Summary Procedure Name Responsible [...] Type Details Placement Removal ETT Mask Ventilation: Ea shay (1); ETT Type: Cuffed, Oral; ETT Size: 7.5 mm; Mac Blade: 3; Notes: Asleep, Pre-O2, Cricoid Pressure, Stylette, RSI; Attempts: 1; Laryngoscopy Grade: 1; ETT Placement Verified By: Auscultation, Capnometry, Visual; Secured at Teeth: 21 cm; Inserted by: ZACK Figueroa; Removal Date: 01/10/23; Removal Time: 185001/10/23 133 by Anthony Magdaleno CRNA 01/10/23 185 by Anthony Magdaleno CRNA (RETIRED) Peripheral IV Line - Single Lumen 01/10/23; 1334; cephalic vein (lateral side of arm), left; exio-qym-lksydw catheter system; Anatomical Landmarks; 18 gauge; ZACK Magdaleno; 01/12/23; 0501/10/23 1334 by Anthony Magdaleno CRNA 01/12/23 05 by Russ Flowers RN (RETIRED) Peripheral IV Line - Single Lumen 01/10/23; 1343; metacarpal vein (top of hand), left; yiof-utc-gxywoe catheter system; Anatomical Landmarks; 18 gauge; Rasta 911 OPERATOR; 1; cephalic vein (lateral side of [...] at this facility; 1; 10; 10; 01/10/23; 18301/10/23 1456 by Lorne Uriostegui RN 01/10/23 183 [...] Procedure Summary Date: 01/10/23 Room / Location: [address] MAIN OR Anesthesia Start: 1324 Anesthesia Stop: 1900 Procedures: @LAPAROSCOPIC GASTROPLASTY W/ [...] All Anesthesia Providers: Anesthesiologist: Monet Banks MD 911 OPERATOR: Anthony Magdaleno CRNA Manager Terminal: Twyla Ohara MD Vitals Value Taken Time BP 163/96 01/10/23 1900 Temp Pulse 82 01/10/23 1902 Resp 21 01/10/23 1902 SpO2 100 % 01/10/23 190 Pain Level Vitals shown include unvalidated device data. Patient Location: PACU/[facility] Level of Consciousness: Conscious but Sleepy [...] * Anesthesia Preprocedure Evaluation - Twyla Ohara - 01/09/2023 9:17 PM EST Pre-Anesthesia Evaluation [...] who presents for laparoscopic RnY gastric bypass wit hDr. Borrero. Endorsed some mild heartburn en route, [...] patient. Plan discussed with attending, resident and 911 OPERATOR. Anesthesia Screening documented in this encounter [...] to work on eating behaviors Health Rn Geriatric is sending hand-outs with exercises for mindful eating, The Pause/STOP and Urge surfing. Patient will review and try implementing some behaviors before we meet again. movement Lifestyle On track(2021 10:29 AM EST) No iJll Farooq APRN Note: Exercise goal is 150 [...] mg documented in this encounter Care Teams Cleaning Handyman Relationship Specialty Start Date End Date Sree High, DAIRY MANAGEMENT SPECIALIST [address] [place] [address] [address] [place] [address] PCP - General Family Medicine 12/19/22 documented as of this encounter
--- OUTSIDE RECORDS SUMMARY | 2024-09-02 16:17 | XMS_ITS | Encounter Summary ---
Author Organization [facility] Address [facility] [place] [address] Care Team Providers Care Home Mortgage Disclosure Act Specialist Name Role Phone None Primary Care Provider Unavailabl e Encounter Details Date Type Department Care Team ([facility] st Contact Info) Description 07/11/2022 Notes Only General Surgery at [facility] [place] [address] Kelsey Palmer Social History Tobacco Use Types [...] need to have 3 more diet visits, [place] Medicaid requires 3 months of diet counseling [...] of General Surgery Division of Bariatric Surgery [facility] From: [email or web address] <[email or web address]> Sent: Monday, July 11, 2022 1:10 PM To: Kelsey Montano <[email or web address]> Subject: Questions about last steps EXTERNAL Hi! [...] On track(2021 10:28 AM EST) Jill Colmenares, MAGNESIUM MILL OPERATOR Note: Mindfulness/deep breathing practice to reduce cortisol -try for at least 10 minutes a day -try an ap such as headspace I have referred you to our psychologist to work on eating behaviors Health Logistics Program Manager is sending hand-outs with exercises for mindful eating, The Pause/STOP and Urge surfing. Patient will review and try implementing some behaviors before we meet again. movement Lifestyle On track(2021 10:29 AM EST) Jill Colmenares, MAGNESIUM MILL OPERATOR Note: Exercise goal is 150 min [...] on filedocumented in this encounter Care Teams Home Mortgage Disclosure Act Specialist Relationship Specialty Start Date End Date None None PCP - General 06/07/22 12/18/22 documented as of this encounter
--- OUTSIDE RECORDS SUMMARY | 2024-09-02 16:17 | XMS_ITS | Encounter Summary ---
Author Organization [facility] [place] [address] Care Team Providers Care Test Baker Name Role Phone None Primary Care Provider Anthony e Encounter Details Date Type Department Care Team ([facility] st Contact Info) Description 10/16/2022 Telephone General Surgery at [facility] [place] [address] Anni Varela APRN [facility] [place] [address] Social History Tobacco Use Types Packs/Day Years [...] to work on eating behaviors Health Air Antisubmarine Officer is sending hand-outs with exercises for [...] on filedocumented in this encounter Care Teams Test Baker Relationship Specialty Start Date End Date None None PCP - General 06/07/22 12/18/22 documented as of this encounter
--- OUTSIDE RECORDS SUMMARY | 2024-09-02 16:17 | XMS_ITS | Encounter Summary ---
Author Organization [facility] Address [facility] [place] [address] Care Team Providers Care Place Change Roof Bolter Name Role Phone None Primary Care Provider Unavailabl e Reason for Visit * Psychiatric (Routine) - Closed Specialty Diagnoses / Procedures Referred By Chela doyle Referred To Contact Psychiatry Diagnoses Psychophysiologic insomnia Sharla Kirkland MD [facility] [place] [address] Loli Valerio, PhD [facility] [address] [place] [address] Referral ID Status Reason Start Date Expiration Date V isits Requested Visits Authorized [id number] Closed Consult, Test & Treat 06/07/2022 06/07/2023 1 1 Encounter Details Date Type Department Care Team (Latest Contact Info) Description 11/05/2022 2:00 PM EST TH Visit (TeleHealth) Psychiatry and Behavioral Health at [place] [phone] Crystal Ferro, PhD [facility] [place] [address] Insomnia, unspecified type Social History Tobacco Use Types Packs/Day Years Used Date Smoking Tobacco: Never Smokeless Tobacco: Never Sex and Gender Information Value Date Recorded Sex Assigned at Female 10/05/2021 8:56 AM EST Gender Identity Not on file Sexual Orientation Straight 10/05/2021 8: 56 AM EST documented as of this encounter Progress Notes * Crystal Ferro, PhD - 11/05/2022 2:00 PM EST [facility] Psychiatry and Behavioral Health, Behavioral Medicine Service Progress Note: Group Cognitive Behavioral Therapy for Insomnia Time Spent: 60 minutes Number of participants: 5 Leader: Crystal Ferro, Ph.D. This group was conducted via telehealth. During the visit, Leandra was located in [place] at home. SUBJECTIVE: Chief Complaint: Insomnia Disorder, [...] psychologist to work on eating behaviors Health Graduate Recruiter is sending hand-outs with exercises for [...] type documented in this encounter Care Teams Place Change Roof Bolter Relationship Specialty Start Date End Date None None PCP - General 06/07/22 12/18/22 documented as of this encounter
--- OUTSIDE RECORDS SUMMARY | 2024-09-02 16:17 | XMS_ITS | Encounter Summary ---
Author Organization [facility] Address [facility] [place] [address] Care Team Providers Care Cryptologic Technician Name Role Phone None Primary Care [...] psychologist to work on eating behaviors Health Lock Installer is sending hand-outs with exercises for [...] on filedocumented in this encounter Care Teams Cryptologic Technician Relationship Specialty Start Date End Date None None PCP - General 06/07/22 12/18/22 documented as of this encounter
--- OUTSIDE RECORDS SUMMARY | 2024-09-02 16:18 | XMS_ITS | Encounter Summary ---
Author Organization [facility] [place] [address] Care Team Providers Care Professional Bondsman Name Role Phone Debby Puri MD Primary Care Provider Encounter Details Date Type Department Care Team (Latest Contact Info) Description 07/05/2021 3:30 PM EDT TH Visit (TeleHealth) Weight and Wellness at [address] [phone] Russ Henry Class 2 severe obesity due [...] and enjoy!! Be well, Russ Henry Health Mounter Hand documented in this encounter Progress Notes * [...] protein at breakfast and lunch - plain ukrainian yogurt, with fruit, 1 tsp ground flaxseed, unsweetened coconut flakes, nuts/seeds; vegetables with peanut butter/doshi dip/ukrainian yogurt dips/hard boiled egg/slice of deli meat/cheese stick; fruits with nuts/nut butter/cheese/1/2 cup lowfat cottage cheese/ukrainian yogurt ??? Establish bedtime routine - dim [...] can you change? NEW SMART goal: Health Mounter Hand is sending hand-outs with exercises for [...] portion sizes Future follow-up with health executive business coach will address identified areas of concern: [...] robles general recommendation for all patients. Your llama farmer and provider will help make more specificrecommendations [...] mindfulness throughout the day. Your health executive business coach is well-equipped to guide you to find something to look forward to everyday. Eating behaviors: many people benefit from restricting the hours in which they eat. You can choose an eating window of 8-12 hours to start. Make a pact with yourself that you will not take in anything with caloric content outside this window. Your llama farmer may make further recommendations documented in this [...] On track(2021 10:28 AM EST) Jill Colmenares, NEONATAL ICU COORDINATOR Note: Mindfulness/deep breathing practice to reduce cortisol -try for at least 10 minutes a day -try an ap such as headspace I have referred you to our psychologist to work on eating behaviors Health Mounter Hand is sending hand-outs with exercises for mindful eating, The Pause/STOP and Urge surfing. Patient will review and try implementing some behaviors before we meet again. movement Lifestyle On track(2021 10:29 AM EST) Jill Colmenares, NEONATAL ICU COORDINATOR Note: Exercise goal is 150 min a [...] adult documented in this encounter Care Teams Professional Bondsman Relationship Specialty Start Date End Date Debby Puri MD [address] [place] [address] PCP - General Family Medicine 07/13/20 06/06/22 documented as of this encounter
--- OUTSIDE RECORDS SUMMARY | 2024-09-02 16:18 | XMS_ITS | Encounter Summary ---
Author Organization [facility] Address [facility] [place] [address] Care Team Providers Care Lead Embedded Software Engineer Name Role Phone Debby Puri MD Primary Care Provider [phone] Reason for Referral * Consultation (Routine) - Closed Specialty Diagnoses / Procedures Referred By Chela doyle Referred To Contact Sleep Center Diagnoses Fatigue, unspecified type Class 2 severe obesity due to excess calories with serious comorbidity and body mass index (BMI) of 39.0 to 39.9 in adult Jill Farooq APRN [facility] [address] [place] [address] [facility] Sleep Medicine [address] [place] [address] Referral ID Status Reason Start Date Expiration Date V isits Requested Visits Authorized [id number] Closed Specialty Service Requested 06/07/2021 06/07/2022 1 1 Reason for Visit * Reason Comments Establish Care WEIGHT MANAGMENT * Consultation (Routine) - Specialty Diagnoses / Procedures Referred By Chela doyle Referred To Contact Weight and Wellness Diagnoses Obesity, unspecified OBESITY, BMI 40.7 Debby Puri MD [address] [place] [address] [address] [facility] [address] [place] [address] [facility] [address] [place] [address] Referral ID Status Reason Start Date Expiration Date V isits Requested Visits Authorized [id number] Consult, Test & Treat Connection Center PCP Updated and/or Approved 07/11/2020 07/11/2021 6 6 Encounter Details Date Type Department Care Team (Late st Contact Info) Description 06/07/2021 1:00 PM EDT Office Visit Weight and Wellness at [facility] [address] [place] [id number] Jill Farooq, SONG WRITER [facility] [place] [address] Fatigue, unspecified type; Class 2 severe obesity [...] to work on eating behaviors Medications 06/07/21 3140 Medication Sig Taking? cyclobenzaprine (Flexeril) 5 mg [...] Farooq APRN - 06/07/2021 1:00 PM EDT [facility] Well[facility] [place] Patient Name: Leandra Wilks Date of : [...] Weight and Wellness Center to join Leandra's [facility] team. SUMMARY OF VISIT: Leandra Wilks presented to the [facility] for a consultative visit regarding obesity management. [...] here for eating behaviors Referrals: [x]Nutrition [x]Health coach cleaner [x]Sleep medicine []Bariatric surgery []GI [x]Behavioral health []ACT group [] HLP []Research coordinator -declined CHIEF COMPLAINT: Management of excess weight HISTORY OF PRESENT ILLNESS: Weight History: [facility] Weight History 03/08/2021 What is the most [...] outgrowing her clothes Barriers to success: depression [facility] Importance 03/08/2021 How important is it to you to make a change to improve your health? 10 - Very Important How confident are you that you can make a change to improve your health? 7 Obesogenic medications: lamictal Obesity related co-morbidities: Past Medical History 03/08/2021 Have you had any of the following medical problems? Glaucoma, Previous abdominal surgeries, Osteoarthritis, Migraine headaches Sleep: Circadian: []lumber salvager work []irregular sleep timings [x]Normal day/night schedule To bed: variable, sometimes to bed really early, then wakes for a couple of hours, wakes up severaltimes a night Wake up: 530am, but then goes back to sleep Frequency of awakenings at night: frequent Dx/Treated for CHUN? no [x]S [x]T []O []P [x]B []A [x]N []G: [place] Sleep Apnea 03/08/2021 Please choose the correct [...] Do you have high blood pressure? No [place] Category I 1 (Negative) [place] Category I Result 0 (Negative) [place] Category 2 2 (Positive) [place] Category II Result 1 (Negative) [place] Category 3 0 (Negative) [place] Sleep Apnea Result 1 (Low Risk) Food [...] not hungry. Fluids: water, sweetened iced Movement: [facility]: [place]ERT 03/08/2021 How many days during the [...] to any of the below items? Dairy [facility] PHQ-2 03/08/2021 Over the LAST 2 WEEKS, [...] Vitals: 06/07/21 1226 BP: 111/53 BP Location ([facility]): Right arm Patient Position: Sitting BP Cuff [...] found for: FERRITIN No results found for: [id number] No results found for: 25OHVITD ASSESSMENT AND PLAN Leandra Wilks is a 41 y.o. female with uncontrolled obesity who presented to [facility] today for medical evaluation. Leandra was seen [...] work on eating behaviors Care pathway: Pathway: [facility] PATHWAY - ADULT 06/07/2021 Medication Therapy Activate Obesity Medicine Activate Return in about 4 weeks (around 07/05/2021) for LAMP REPLACER, CHANG hanley, psychologist, HC 2w after CHANG. I spoke with Leandra about opportunities to participate in research and to be contacted by our research assistant director of plant operations. They indicated that they are: [] INTERESTED [x] NOT INTERESTED // [] NOT ADDRESSED [facility] Initial Responses 03/08/2021 [facility]ICA - Readiness Score 11 (Contemplation State) WEL-SF Total Scores 38 PHQ-2 SubScore 2 (Brief screen negative) GAD2 Subscore 2 (Brief screen negative) PROMIS 10 Physical Scores 26.7 PROMIS 10 Mental Scores 41.1 Total REAP-S Scores 24 TFEQ - Uncontrolled Eating (UE) 96.29 TFEQ-Cognitive Restraint (CR) 33.33 TFEQ-Emotional Eating 100 Food Insecurity Score 2 [place] Category I Result 0 (Negative) [place] Category II Result 1 (Negative) [place] Category III 0 (Negative) [place] Sleep Apnea Total 1 (Low Risk) Schooling [...] psychologist to work on eating behaviors Health Old Coin Dealer is sending hand-outs with exercises for mindful [...] (ABNORMAL) Differential, Automated (06/07/2021 2:25 PM EDT) Neutrophil % 69.0 % [facility] Neutrophil Absolute 7.04(H) 1.70 - 6.10 x10(3)/mc L [facility] Lymph % 23.0 % [facility] Lymphocytes Abs 2.4 0.9 - 3.2 x10(3)/mc L [facility] Monocyte % 3.8 % [facility] Monocyte Abs 0.4 0.3 - 0.9 x10(3)/mc L [facility] Eos % 2.5 % [facility] Eosinophils Abs 0.2 0.0 - 0.4 x10(3)/ L [facility] Basophil % 0.5 % [facility] Baso Absolute 0.0 0.0 - 0.1 x10(3)/ L [facility] Immature Gran % 1.20 % [facility] Comment: Immature granulocytes(IG's)percentage and absolute count will include metamyelocytes, myelocytes, and promyelocytes. Blood smears from CBCs yielding IG's will be scanned manually for concordance. If this scan disagrees with the automated IG or if promyelocytes are noted, a manual differential will be performed. Immature Gran Absolute 0.12(H) 0.00 - 0.04 x10(3)/[facility] Blood 06/07/2021 2:25 PM EDT 06/07/2021 3:52 PM EDT Narrative Resulting Agency Comment Spec In Lab Jill Farooq SONG WRITER HEMATOLOGY ORDERABLE S [facility] [place] [address] * (ABNORMAL) Hemogram (06/07/2021 2:25 PM EDT) White Blood Cell 10.2(H) 4.0 - 9.5 x10(3)/ L [facility] Red Blood Cell 4.43 4.00 - 5.21 x10(6)/mc L [facility] Hemoglobin 12.9 11.7 - 15.5 gm/dL [facility] Hematocrit 38.7 35.7 - 45.8 % [facility] Mean Cell Volume 87.4 82.6 - 94.4 fL [facility] Mean Cell Hemoglobin 29.1 27.1 - 32.0 pg [facility] Mean Cell Hemoglobin Concentration 33.3 31.7 - 35.0 gm/dL [facility] Platelet 395(H) 145 - 357 x10(3)/mc L [facility] RDW Standard Deviation 43.0 37.0 - 46.0 [facility] RDW coefficient of variation 13.3 11.5 - 14.1 % [facility] Mean Platelet Volume 9.4 7.6 - 12.9 [facility] NRBC% auto 0.0 % [facility] NRBC Absolute 0.000 0.000 - 0.000 x10(3)/mc L [facility] Blood 06/07/2021 2:25 PM EDT 06/07/2021 3:52 PM EDT Narrative Resulting Agency Comment Spec In Lab Jill Grajedaoie SONG WRITER HEMATOLOGY ORDERABLE S [facility] [place] [address] * Insulin, total (06/07/2021 2:25 PM EDT) Insulin 10.8 2.6 - 24.9 mcunit/mL [facility] Blood 06/07/2021 2:25 PM EDT 06/07/2021 6:37 PM EDT Narrative Resulting Agency Comment Spec In Lab Jill Grajedaoie SONG WRITER CHEMISTRY ORDERABLES [facility] [place] [address] * TSH (06/07/2021 2:25 PM EDT) Thyroid Stimulating Hormone 1.47 0.27 - 4.20 mcIU/mL [facility] Comment: Reference Interval (mcIU/mL): Females: ??First Trimester: 0.23-3.88 ??Second Trimester: 0.22-3.90 ??Third Trimester: 0.44-4.66 Blood 06/07/2021 2:25 PM EDT 06/07/2021 4:00 PM EDT Narrative Resulting Agency Comment Spec In Lab Jill Carmine Somerse BRYANNA CHEMISTRY ORDERABLES [facility] [place] [address] * (ABNORMAL) CMP w/fasting Glucose (06/07/2021 2:25 PM EDT) Glucose Fasting 84 65 - 99 mg/dL [facility] Comment: ?Fasting* Glucose Interpretive [...] of Diabetes Mellitus, Position Statement from the [place] Diabetes Association. ??Diabetes Care, Volume 33, Supplement 1, Nov 2009 Blood Urea Nitrogen 15 8 - 18 mg/dL [facility] Creatinine 0.81 0.70 - 1.20 mg/dL [facility] Sodium 137 135 - 145 mmol/L [facility] Potassium 3.7 3.5 - 5.0 mmol/L [facility] Comment: Please note: ??Patients with WBC >100,000 may have falsely elevated Potassium levels. ??For accurate Potassium quantification in these patients send serum separator tube (gold top) for subsequent determinations. ??Contact the Clinical Chemistry Laboratory if there are any questions. Chloride 105 98 - 107 mmol/L [facility] Carbon Dioxide 20(L) 22 - 31 mmol/L [facility] Anion Gap 12 5 - 15 mmol/L [facility] Calcium 9.0 8.5 - 10.5 mg/dL [facility] Protein, Total 8.0 6.1 - 8.0 gm/dL [facility] Albumin 4.9 3.2 - 5.2 gm/dL [facility] Aspartate Aminotransferase 16 0 - 30 unit/L [facility] Alanine Aminotransferase 28 0 - 30 unit/L [facility] Alkaline Phosphatase 137(H) 35 - 105 unit/L [facility] Bilirubin, Total 0.4 0.2 - 1.3 mg/dL [facility] Est Glomerular Filtration Rate 89 >=60 mL/min/1. 73 m?? [facility] Comment: This patient? s [...] Agency Comment Spec In Lab Jill Farooq SONG WRITER CHEMISTRY ORDERABLES [facility] [place] [address] * Vitamin D, 25-Hydroxy (06/07/2021 2:25 PM EDT) Vitamin D Total 25 OH 24 21 - 100 ng/mL [facility] Vit D Interp Insufficient [facility] Blood 06/07/2021 2:25 PM EDT 06/07/2021 6:37 PM EDT Narrative Resulting Agency Comment Spec In Lab Jill Farooq SONG WRITER CHEMISTRY ORDERABLES Performing Organization Address City/[facility]/ZIP Co de Phone Number [facility] [place] [address] * (ABNORMAL) Ferritin (06/07/2021 2:25 PM EDT) [facility] Ferritin 172(H) 15 - 150 ng/mL [facility] Comment: Pediatric reference ranges not verified at [facility], interpret with caution. Reference ranges for females greater than 50 years of age approach values for men, i.e., 30-400 ng/mL. Blood 06/07/2021 2:25 PM EDT 06/07/2021 6:37 PM EDT Narrative Resulting Agency Comment Spec In Lab Jill Farooq SONG WRITER CHEMISTRY ORDERABLES Performing Organization Address [facility]/ZIP Co de Phone Number [facility] [place] [address] * Iron and TIBC (06/07/2021 2:25 PM EDT) [facility] Iron 85 30 - 150 mcg/dL [facility] TIBC 350 250 - 450 mcg/dL [facility] Iron Saturation 24 20 - 50 % [facility] Blood 06/07/2021 2:25 PM EDT 06/07/2021 4:00 PM EDT Narrative Resulting Agency Comment Spec In Lab Jill Farooq SONG WRITER CHEMISTRY ORDERABLES [facility] [place] [address] * Hemoglobin A1c (06/07/2021 2:25 PM EDT) [facility] Hemoglobin A1c 4.8 4.3 - 5.6 % [facility] Comment: Reference Range: 4.3 [...] Diabetes Care 2013; 36: Suppl. 1, S67-74 Estimated Average Glucose 90 mg/dL [facility] Comment: eAG equivalents for HbA1c percentages: [...] into estimated average glucose values. ??Diabetes Care 2008:31(8):6476-3473. Blood 06/07/2021 2:25 PM EDT 06/07/2021 3:41 PM EDT Narrative Resulting Agency Comment Spec In Lab Jill Farooq APRN CHEMISTRY ORDERABLES [facility] [place] [address] * Lipid Panel (Reflex Direct LDL) (06/07/2021 2:25 PM EDT) Cholesterol, Total 173 mg/dL [facility] Comment: Lower Risk: <200 mg/dL Average Risk: 200-239 mg/dL Higher Risk: >ef=239 mg/dL Triglyceride 97 mg/dL [facility] Comment: Average Risk/Lower Risk: <150 mg/dL Borderline High Risk: 150-199 mg/dL High Risk: 200-499 mg/dL Very High Risk: >oh=054 mg/dL HDL Cholesterol 56 mg/dL [facility] Comment: Males: ?? Higher Risk: <40 mg/dL Females: ?? Higher Risk: <50 mg/dL LDL Cholesterol 98 mg/dL [facility] Comment: Lowest Risk: <100 mg/dL Lower Risk: 100-129 mg/dL Borderline High Risk: 130-159 mg/dL High Risk: 160-189 mg/dL Very High Risk: >vk=502 mg/dL Cholesterol/HDL Ratio 3.1 ratio [facility] Lipid Interpretation See Note [facility] Comment: Lipid management should be guided by a patient? s ASCVD risk, goals and preferences. ACC/AHA Guidelines recommend high intensity statin if clinical ASCVD or LDL greater than or equal to 190 mg/dL. http://ExaDigm.com/GOE-WCZ-Vdpktmpcv Adults aged 40-75 with LDL 70-189 mg/dL should have their 10 year ASCVD risk estimated with the ACC/AHA ASCVD risk stain wiper http://tools.acc.org/RHYST-Wurf-Ojdpbhacj/ Statin should be discussed if risk greater [...] In Lab Jill Farooq APRN CHEMISTRY ORDERABLES [facility] [place] [address] documented in this encounter Visit Diagnoses Diagnosis Fatigue, unspecified type Class 2 severe obesity due to excess calories with serious comorbidity and body mass index (BMI) of 39.0 to 39.9 in adult Insulin resistance Dysmetabolic Syndrome X Pre-diabetes Other abnormal glucose documented in this encounter Care Teams Lead Embedded Software Engineer Relationship Specialty Start Date End Date Debby Puri MD [address] [address] PCP - General Family Medicine 07/13/20 06/06/22 documented as of this encounter
--- OUTSIDE RECORDS SUMMARY | 2024-09-02 16:18 | XMS_ITS | Encounter Summary ---
Author Organization [facility] Address [facility] [place] [address] Care Team Providers Care Fiction And Nonfiction Writer Prose Name Role Phone Debby Puri MD Primary Care Provider Reason for Visit * Reason Comments Medication Refill Encounter Details Date Type Department Care Team ([facility] Contact Info) Description 04/30/2022 Refill Weight and Wellness at [address] [phone] Jill Farooq APRN [facility] [place] [address] Insulin resistance; Pre-diabetes Social History Tobacco Use [...] On track(2021 10:28 AM EST) Jill Colmenares, PATHOLOGY SECRETARY Note: Mindfulness/deep breathing practice to reduce cortisol -try for at least 10 minutes a day -try an ap such as headspace I have referred you to our psychologist to work on eating behaviors Health Plate Drying Machine Tender is sending hand-outs with exercises for mindful eating, The Pause/STOP and Urge surfing. Patient will review and try implementing some behaviors before we meet again. movement Lifestyle On track(2021 10:29 AM EST) Jill Colmenares, PATHOLOGY SECRETARY Note: Exercise goal is 150 min [...] glucose documented in this encounter Care Teams Fiction And Nonfiction Writer Prose Relationship Specialty Start Date End Date Debby Puri MD [address] [place] [address] PCP - General Family Medicine 07/13/20 06/06/22 documented as of this encounter
--- OUTSIDE RECORDS SUMMARY | 2024-09-02 16:18 | XMS_ITS | Encounter Summary ---
Author Organization [facility] [place] [address] Care Team Providers Care Materials Research Engineer Name Role Phone Debby Puri MD Primary Care Provider [phone] Encounter Details Date Type Department Care Team ([facility] Contact Info) Description 12/13/2021 10:30 AM EST TH Visit (TeleHealth) Weight and Wellness at [address] [address] [facility] [address] [place] [address] Adult BMI 38.0-38.9 kg/sq m Social History [...] first at all eating events - plain lithuanian yogurt, with fruit, 1 tsp ground flaxseed, unsweetened coconut flakes, nuts/seeds; vegetables with peanut butter/doshi dip/lithuanian yogurt dips/hard boiled egg/slice of deli meat/cheese stick; fruits with nuts/nut; protein on salad; butter/cheese/1/2 cup lowfat cottage cheese/lithuanian yogurt ??? Practice Bariatric Drinking Behaviors - [...] Progress Notes * Hailee Martínez RD - 12/13/2021 10:30 AM EST Nutrition Intervention for Weight Management Initial RD visit with SIMONA Thompson 1980 Assessment/Nutrition Diagnosis: Pt at increased nutritional risk related to excessive calorie intake and sub optimal physical activity resulting in overweight/obesity as evidenced by BMI and diet recall Telehealth / telephone visit conducted while patient was at home at the following address: [address] [place] [id number] Weight Today: Wt Readings from Last 3 [...] Loss History: See previous notes from this clinical writer and [facility] provider for full account Typical Dietary [...] no alyssa; smoothie with breakfast 1x/week from [employer]; Appetite/Hunger: [x] feels managed with foods/meals outlined [...] protein at breakfast and dinner - plain lithuanian yogurt, with fruit, 1 tsp ground flaxseed, unsweetened coconut flakes, nuts/seeds; vegetables with peanut butter/doshi dip/lithuanian yogurt dips/hard boiled egg/slice of deli meat/cheese stick; fruits with nuts/nut butter/cheese/1/2 cup lowfat cottage cheese/lithuanian yogurt ??? Increase vegetables at lunch and [...] to work on eating behaviors ?? Health Varnish Supervisor is sending hand-outs with exercises for [...] [x] Needs additional fuv scheduled with this clinical writer in 2 months (OR) [] Currently scheduled for: [] 1st consecutive monthly nutrition visit [] 2nd consecutive monthly nutrition visit [] 3rd consecutive monthly nutrition visit (OR) [] Patient has met requirement of 3 consecutive monthly nutrition visits but agrees that ongoing support would be helpful and feasible. Above determined to the best ability of this clinical writer. Patient will contact bariatric surgery team [...] psychologist to work on eating behaviors Health Varnish Supervisor is sending hand-outs with exercises for [...] adult documented in this encounter Care Teams Materials Research Engineer Relationship Specialty Start Date End Date Debby Puri MD [address] [place] [address] [address] [facility] [address] [place] [address] PCP - General Family Medicine 07/13/20 06/06/22 documented as of this encounter
--- OUTSIDE RECORDS SUMMARY | 2024-09-02 16:18 | XMS_ITS | Encounter Summary ---
Author Organization [facility] [place] [address] Care Team Providers Care Energy Assistant Name Role Phone Debby Puri MD Primary Care Provider [phone] Encounter Details Date Type Department Care Team ([facility] Contact Info) Description 02/14/2022 10:30 AM EDT TH Visit (TeleHealth) Weight and Wellness at [address] [phone] [facility] [place] [address] Adult BMI 36.0-36.9 kg/sq m Social History [...] first at all eating events - plain norwegian yogurt, with fruit, 1 tsp ground flaxseed, unsweetened coconut flakes, nuts/seeds; vegetables with peanut butter/doshi dip/norwegian yogurt dips/hard boiled egg/slice of deli meat/cheese stick; fruits with nuts/nut; protein on salad; butter/cheese/1/2 cup lowfat cottage cheese/norwegian yogurt Practice Bariatric Drinking Behaviors - separate [...] was at home at the following address: [address] [place] [id number] Weight Today: Wt Readings from Last 3 [...] Loss History: See previous notes from this process description writer and C provider for full account [...] first at all eating events - plain norwegian yogurt, with fruit, 1 tsp ground flaxseed, unsweetened coconut flakes, nuts/seeds; vegetables with peanut butter/doshi dip/norwegian yogurt dips/hard boiled egg/slice of deli meat/cheese stick; fruits with nuts/nut; protein on salad; butter/cheese/1/2 cup lowfat cottage cheese/norwegian yogurt ??? Practice Bariatric Drinking Behaviors - [...] to work on eating behaviors ?? Health School Photograph Editor is sending hand-outs with exercises for [...] [x] Needs additional fuv scheduled with this process description writer in 1 month (OR) [] Currently scheduled for: [] 1st consecutive monthly nutrition visit [] 2nd consecutive monthly nutrition visit [] 3rd consecutive monthly nutrition visit (OR) [] Patient has met requirement of 3 consecutive monthly nutrition visits but agrees that ongoing support would be helpful and feasible. Above determined to the best ability of this process description writer. Patient will contact bariatric surgery team [...] to work on eating behaviors Health School Photograph Editor is sending hand-outs with exercises for [...] adult documented in this encounter Care Teams Energy Assistant Relationship Specialty Start Date End Date Debby Puri MD [address] [place] [address] [address] [place] [address] PCP - General Family Medicine 07/13/20 06/06/22 documented as of this encounter
--- OUTSIDE RECORDS SUMMARY | 2024-09-02 16:18 | XMS_ITS | Encounter Summary ---
Author Organization [facility] Address [facility] [place] [address] Care Team Providers Care Software Release Manager Name Role Phone Debby Puri MD Primary Care Provider Reason for Visit * Reason Onset Date Comments Medication Refill 12/26/2021 Encounter Details Date Type Department Care Team (Late st Contact Info) Description 12/26/2021 Refill Weight and Wellness at [address] [phone] Jill Farooq APRN [facility] [place] [address] Class 2 severe obesity due to excess [...] On track(2021 10:28 AM EST) Jill Colmenares, RECREATION PROGRAM SPECIALIST Note: Mindfulness/deep breathing practice to reduce cortisol -try for at least 10 minutes a day -try an ap such as headspace I have referred you to our psychologist to work on eating behaviors Health Running Specialist is sending hand-outs with exercises for mindful eating, The Pause/STOP and Urge surfing. Patient will review and try implementing some behaviors before we meet again. movement Lifestyle On track(2021 10:29 AM EST) Jill Colmenares, RECREATION PROGRAM SPECIALIST Note: Exercise goal is 150 [...] adult documented in this encounter Care Teams Software Release Manager Relationship Specialty Start Date End Date Debby Puri MD [address] [place] [address] [address] [facility] 1 [place] [address] PCP - General Family Medicine 07/13/20 06/06/22 documented as of this encounter
--- OUTSIDE RECORDS SUMMARY | 2024-09-02 16:18 | XMS_ITS | Encounter Summary ---
Author Organization [facility] [place] [address] Care Team Providers Care Quilt Maker Name Role Phone None Primary Care Provider Unavailabl e Reason for Visit * Reason Onset Date Comments Appointment 04/19/2022 Encounter Details Date Type Department Care Team ([facility] Contact Info) Description 04/19/2022 Telephone Weight and Wellness at [address] [phone] Areli Carranza V Appointment Social [...] track(2021 10:28 AM EST) Jill Colmenares, SENIOR MECHANICAL DESIGNER Note: Mindfulness/deep breathing practice to reduce cortisol -try for at least 10 minutes a day -try an ap such as headspace I have referred you to our psychologist to work on eating behaviors Health Trip Rider is sending hand-outs with exercises for mindful eating, The Pause/STOP and Urge surfing. Patient will review and try implementing some behaviors before we meet again. movement Lifestyle On track(2021 10:29 AM EST) Jill Colmenares, SENIOR MECHANICAL DESIGNER Note: Exercise goal is 150 min a [...] on filedocumented in this encounter Care Teams Quilt Maker Relationship Specialty Start Date End Date None None PCP - General 06/07/22 12/18/22 documented as of this encounter
--- OUTSIDE RECORDS SUMMARY | 2024-09-02 16:18 | XMS_ITS | Encounter Summary ---
Author Organization [facility] [place] [address] Care Team Providers Care Deal Architect Name Role Phone Debby Puri MD Primary Care Provider Encounter Details Date Type Department Care Team ([facility] Contact Info) Description 08/23/2021 11:00 AM EDT TH Visit (TeleHealth) Weight and Wellness at [address] [address] [facility] [place] [place] [address] Adult BMI 38.0-38.9 kg/sq m Social History [...] protein at breakfast and lunch - plain malawian yogurt, with fruit, 1 tsp ground flaxseed, unsweetened coconut flakes, nuts/seeds; vegetables with peanut butter/doshi dip/malawian yogurt dips/hard boiled egg/slice of deli meat/cheese stick; fruits with nuts/nut butter/cheese/1/2 cup lowfat cottage cheese/malawian yogurt ??? No snacks after dinner - [...] was at home at the following address: [address] [place] [id number] Food Trackers: not currently Weight Today: Initial Nutrition Visit (06/21/21): 222 pounds Vitals 08/22/2021 Height (Hungarian) 64 Height (Metric) 162.6 cm Weight (Hungarian) 222 lbs Weight (Metric) 100.699 kg BMI [...] protein at breakfast and lunch - plain malawian yogurt, with fruit, 1 tsp ground flaxseed, unsweetened coconut flakes, nuts/seeds; vegetables with peanut butter/doshi dip/malawian yogurt dips/hard boiled egg/slice of deli meat/cheese stick; fruits with nuts/nut butter/cheese/1/2 cup lowfat cottage cheese/malawian yogurt ??? No snacks after dinner - [...] to work on eating behaviors ?? Health Systems Development Consultant is sending hand-outs with exercises [...] Lifestyle On track(2021 10:29 AM EST) Jill Colmenraes APRN Note: Follow up with sleep, do [...] psychologist to work on eating behaviors Health Systems Development Consultant is sending hand-outs with exercises [...] adult documented in this encounter Care Teams Deal Architect Relationship Specialty Start Date End Date Debby Puri MD [address] [place] [address] [address] [facility] [[email or web address] 1 [place] [address] PCP - General Family Medicine 07/13/20 06/06/22 documented as of this encounter
--- OUTSIDE RECORDS SUMMARY | 2024-09-02 16:18 | XMS_ITS | Encounter Summary ---
Author Organization [facility] [place] [place] [address] Care Team Providers Care Irrigator Gravity Flow Name Role Phone Debby Puri MD Primary Care Provider Encounter Details Date Type Department Care Team ([facility] st Contact Info) Description 12/18/2020 External Results Weight and Wellness at [address] [phone] Alejandra Mendez, RN Social History Tobacco Use [...] Procedure Name Priority Date/Time Associated Diagnosis Comments [facility] EXTERNAL RESULT PANEL Routine 02/13/2019 CBC (WITH DIFF) Routine 02/13/2019 documented in this encounter Results * (ABNORMAL) [facility] External Results (02/13/2019) Blood Urea Nitrogen 15([facility] Repairer [facility]) Creatinine 0.81(Exte rnal Lab) Sodium 138(Exter nal Lab) Potassium 3.6(Exter nal Lab) Chloride 103(Exter nal Lab) Carbon Dioxide 23([facility]r [facility]) Anion Gap 12([facility]airer [facility]) Calcium 8.4(Exter nal Lab) Protein, Total 7.6(Exter nal Lab) Albumin 4(Externa l Lab) Aspartate Aminotransferase 18([facility]r [facility]) Alanine Aminotransferase 20([facility]r [facility]) Alkaline Phosphatase 117(Exter nal Lab) Bilirubin, Total 0.6(Exter nal Lab) Est Glomerular Filtration Rate >60(Exter nal Lab) Glucose 78([facility] Repairer [facility]) Lipase 165(Exter nal Lab) 02/13/2019 Historical Provider POINT OF CARE ANIYA T ORDERABLES * CBC (with Diff) (02/13/2019) White Blood Cell 7.31 Red Blood Cell 4.40 Hemoglobin 13.3 Hematocrit 38.3 Mean Cell Volume 87.0 Mean Cell Hemoglobin 30.2 Mean Cell Hemoglobin Concentration 34.7 RDW coefficient of variation 13 Platelet 349 Mean Platelet Volume 9.3 Neutrophil % 76.5 Lymph % 16.7 Monocyte % 3.8 Eosinophil Manual 2.6 Basophil % 0.1 Immature Gran % 0.3 Neutrophil Absolute (ANC) - Automated 5.59 Lymph Absolute Manual 1.22 Monocyte Abs 0.28 Eos Absolute Manual 0.19 Baso Absolute Manual 0.01 Blood 02/13/2019 Historical Provider HEMATOLOGY ORDERA BLES documented in this encounter Visit Diagnoses Not on filedocumented in this encounter Care Teams Irrigator Gravity Flow Relationship Specialty Start Date End Date Debby Puri MD [address] [place] [address] [address] PCP - General Family Medicine 07/13/20 06/06/22 documented as of this encounter
--- OUTSIDE RECORDS SUMMARY | 2024-09-02 16:18 | XMS_ITS | Encounter Summary ---
Author Organization Counts Include [facility] Address [facility] [place] [address] Care Team Providers Care Biofuels Plant Operations Engineer Name Role Phone Debby Puri MD Primary Care Provider [phone] Reason for Referral * Consultation (Routine) - Closed Specialty Diagnoses / Procedures Referred By Chela doyle Referred To Contact Weight and Wellness Diagnoses Class 2 severe obesity due to excess calories with serious comorbidity and body mass index (BMI) of 39.0 to 39.9 in adult Jill Faoroq APRN [facility] [place] [address] [facility] [address] [place] [id number] Referral ID Status Reason Start Date Expiration Date V isits Requested Visits Authorized [id number] Closed Consult, Test & Treat 01/02/2022 01/02/2023 1 1 Encounter Details Date Type Department Care Team (Late st Contact Info) Description 01/02/2022 Orders Only Weight and Wellness at [facility] [address] [place] [address] Jill Farooq PATTERNMAKER ALL AROUND [facility] [place] [address] Class 2 severe obesity due to excess [...] Diagnoses Orde r Schedule Amb Referral to [facility] Psych Evaluation Outpatient Referral Routine Class 2 [...] to work on eating behaviors Health Supervisor Cell Maintenance is sending hand-outs with exercises for mindful [...] adult documented in this encounter Care Teams Biofuels Plant Operations Engineer Relationship Specialty Start Date End Date Debby Puri MD [address] [place] [address] PCP - General Family Medicine 07/13/20 06/06/22 documented as of this encounter
--- OUTSIDE RECORDS SUMMARY | 2024-09-02 16:18 | XMS_ITS | Encounter Summary ---
[place] [address] Care Team Providers Care Associate Professor Of Media Arts Name Role Phone Debby Puri MD Primary Care Provider Reason for Visit * Reason Onset Date Comments Appointment 02/20/2022 Encounter Details Date Type Department Care Team ([facility] st Contact Info) Description 02/20/2022 Telephone Weight and Wellness at [address] [phone] Cristina Cloud Appointment Social History Tobacco [...] psychologist to work on eating behaviors Health Carbon Capture Power Plant Operator is sending hand-outs with exercises for [...] on filedocumented in this encounter Care Teams Associate Professor Of Media Arts Relationship Specialty Start Date End Date Debby Puri MD [address] [place] [address] PCP - General Family Medicine 07/13/20 06/06/22 documented as of this encounter
--- OUTSIDE RECORDS SUMMARY | 2024-09-02 16:18 | XMS_ITS | Encounter Summary ---
Author Organization [facility] Address [facility] [place] [address] Care Team Providers Care Photolettering Machine Operator Name Role Phone Debby Puri MD Primary Care Provider Encounter Details Date Type Department Care Team (Late st Contact Info) Description 04/05/2022 Telephone Sleep Center at [facility] [address] [place] [phone] Cristina Jung Social History Tobacco Use Types [...] track(2021 10:28 AM EST) Jill Colmenares, PROGRAM DIRECTOR/MUSIC DIRECTOR Note: Mindfulness/deep breathing practice to reduce cortisol -try for at least 10 minutes a day -try an ap such as headspace I have referred you to our psychologist to work on eating behaviors Health Park Interpretive Ranger is sending hand-outs with exercises for mindful eating, The Pause/STOP and Urge surfing. Patient will review and try implementing some behaviors before we meet again. movement Lifestyle On track(2021 10:29 AM EST) Jill Colmenares, PROGRAM DIRECTOR/MUSIC DIRECTOR Note: Exercise goal is 150 min a week, just do some walking, even [address] to start Recommend resistance training 3 times a week -can use therOmnidrive Nutrition - 09/26/22 Lifestyle On track(2021 10:29 [...] on filedocumented in this encounter Care Teams Photolettering Machine Operator Relationship Specialty Start Date End Date Debby Puri MD [address] [place] [address] PCP - General Family Medicine 07/13/20 06/06/22 documented as of this encounter
--- OUTSIDE RECORDS SUMMARY | 2024-09-02 16:18 | XMS_ITS | Encounter Summary ---
Author Organization [facility] [place] [address] Care Team Providers Care Cut Filer Name Role Phone Debby Puri MD Primary Care Provider Encounter Details Date Type Department Care Team ([facility] st Contact Info) Description 06/21/2021 9:00 AM EDT TH Visit (TeleHealth) Weight and Wellness at [address] [phone] [facility] [place] [address] Adult BMI 37.0-37.9 kg/sq m Social History [...] protein at breakfast and lunch - plain egyptian yogurt, with fruit, 1 tsp ground flaxseed, unsweetened coconut flakes, nuts/seeds; vegetables with peanut butter/doshi dip/egyptian yogurt dips/hard boiled egg/slice of deli meat/cheese stick; fruits with nuts/nut butter/cheese/1/2 cup lowfat cottage cheese/egyptian yogurt ??? Establish bedtime routine - dim [...] was at home at the following address: [address] [place], [place] [address] [place] [address] Food Trackers: no Activity: treadmill 20 minutes every other day; walking 2x/week 15-20 minutes; has resistance bands, uses daily; Weight Today: has scale at home, typically weighs every other day Vitals 06/21/2021 Height (Sammarinese) 64.173 Height (Metric) 163 cm Weight (Sammarinese) 222 lbs Weight (Metric) 100.699 kg BMI [...] psychologist to work on eating behaviors Health Broadcast Supervisor is sending hand-outs with exercises for [...] adult documented in this encounter Care Teams Cut Filer Relationship Specialty Start Date End Date Debby Puri MD [address] [place] [address] PCP - General Family Medicine 07/13/20 06/06/22 documented as of this encounter
--- OUTSIDE RECORDS SUMMARY | 2024-09-02 16:18 | XMS_ITS | Encounter Summary ---
Author Organization [facility] [place] [address] Care Team Providers Care Membership Coordinator Name Role Phone Debby Puri MD Primary Care Provider Encounter Details Date Type Department Care Team ([facility] Contact Info) Description 07/19/2021 Telephone Weight and Wellness at [address] [phone] Taylor Padilla, MAX Social History Tobacco Use [...] PM EDT [facility] Underwater Roboticist Pre-telemedicine Visit Phone Note Leandra Wilks 1980 [x] Patient was not reached: [] No working phone [] Not able to leave message [x] Message left withvisit info/call [phone] [] ZOOM link sent if no MyDH [] Patient was reached and the following information was reviewed/obtained per protocol: [] Confirmed patient name and date of [] Confirmed address where patient will be at time of call Patient is in [] [place] [] [place] [] Other: [address] [facility] [address] [] Confirmed best number to be reached [...] Yes: [] Labs/vitals requested [] labs/vitals scanned (corporation secretary) and entered (RN) [] Requested 24 hour diet recall [] Other information or concerns: Interested in [facility] QI project [] No [] Yes [remind [...] track(2021 10:28 AM EST) Jill Colmenares, DESIGN CHIEF Note: Mindfulness/deep breathing practice to reduce cortisol -try for at least 10 minutes a day -try an ap such as headspace I have referred you to our psychologist to work on eating behaviors Health Legal Writing Professor is sending hand-outs with exercises for mindful eating, The Pause/STOP and Urge surfing. Patient will review and try implementing some behaviors before we meet again. movement Lifestyle On track(2021 10:29 AM EST) Jill Colmenares, DESIGN CHIEF Note: Exercise goal is 150 min [...] on filedocumented in this encounter Care Teams Membership Coordinator Relationship Specialty Start Date End Date Debby Puri MD [address] [facility] [address] [facility] 1 [place] [address] PCP - General Family Medicine 07/13/20 06/06/22 documented as of this encounter
--- OUTSIDE RECORDS SUMMARY | 2024-09-02 16:18 | XMS_ITS | Encounter Summary ---
Author Organization [facility] [place] [address] Care Team Providers Care Ultrasonic Hand Solderer Name Role Phone Debby Puri MD Primary Care Provider Encounter Details Date Type Department Care Team (Late st Contact Info) Description 02/05/2022 Ancillary Procedure Radiology Library at [facility] [place] [address] Debby Puri MD [address] [place], [place] [address] Social History Tobacco Use Types Packs/Day Years [...] psychologist to work on eating behaviors Health Table Attendant is sending hand-outs with exercises for mindful eating, The Pause/STOP and Urge surfing. Patient will review and try implementing some behaviors before we meet again. movement Lifestyle On track(2021 10:29 AM EST) Jill Colmenares, COMMERCIAL INSTALLER Note: Exercise goal is 150 min a [...] Puri MD IMG FILM LIBRARY OR DERABLES [place], [place] documented in this encounter Visit Diagnoses Not on filedocumented in this encounter Care Teams Ultrasonic Hand Solderer Relationship Specialty Start Date End Date Debby Puri MD [address] [place] [address] PCP - General Family Medicine 07/13/20 06/06/22 documented as of this encounter
--- OUTSIDE RECORDS SUMMARY | 2024-09-02 16:18 | XMS_ITS | Encounter Summary ---
Author Organization [facility] Address [facility] [place] [address] Care Team Providers Care Metal Hanger Name Role Phone Debby Puri MD Primary Care Provider [phone] Reason for Referral * Diagnostic Test (Routine) - Closed Specialty Diagnoses / Procedures Referred By Chela doyle Referred To Contact Sleep Center Diagnoses Snoring Procedures Home Sleep Study HST Sharla Kirkland MD [facility] [place] [address] [facility] Sleep Medicine [address] [place] [address] Referral ID Status Reason Start Date Expiration Date V isits Requested Visits Authorized [id number] Closed Specialty Service Requested 08/24/2021 08/24/2022 1 1 Reason for Visit * Consultation (Routine) - Closed Specialty Diagnoses / Procedures Referred By Contangelo t Referred To Contact Sleep Center Diagnoses Fatigue, unspecified type Class 2 severe obesity due to excess calories with serious comorbidity and body mass index (BMI) of 39.0 to 39.9 in adult Jill Farooq APRN [facility] [address] [place] [address] [facility] Sleep Medicine [address] [place] [address] Referral ID Status Reason Start Date Expiration Date V isits Requested Visits Authorized [id number] Closed Specialty Service Requested 06/07/2021 06/07/2022 1 1 Encounter Details Date Type Department Care Team (Late st Contact Info) Description 08/24/2021 11:00 AM EDT TH Visit (TeleHealth) Sleep Center at [facility] [address] [place] [address] Sharla Kirkland MD [facility] [place] [address] Snoring (Primary Dx) Social History Tobacco Use [...] hours. Always had some napping Daytime Symptoms: Scribner: Patient-reported last 4 scores: No flowsheet data [...] in female R10.2, G89.29 ??? Unspecified dyspareunia [id number] ??? Mood disorder F39 ??? Calculi, ureter [...] he/she becomes sleepy while driving he/she will pack puller and nap. Discussed. The patient indicates understanding of these issues and agrees with the plan. Sharla Kirkland MD Patient confirms that study results can be sent through the Breadcrumbtrackingaging system documented in this encounter Plan of [...] to work on eating behaviors Health Senior Recruitment Consultant is sending hand-outs with exercises for [...] abnormality documented in this encounter Care Teams Metal Hanger Relationship Specialty Start Date End Date Debby Puri MD [address] [facility] [address] [place] [address] PCP - General Family Medicine 07/13/20 06/06/22 documented as of this encounter
--- OUTSIDE RECORDS SUMMARY | 2024-09-02 16:18 | XMS_ITS | Encounter Summary ---
Author Organization [facility] Address [facility] [place] [address] Care Team Providers Care Network Cable Installer Name Role Phone Debby Puri MD Primary Care Provider [phone] Encounter Details Date Type Department Care Team (Latest Contact Info) Description 01/02/2022 10:00 AM EST TH Visit (TeleHealth) Weight and Wellness at [address] [phone] Jill Farooq APRN [facility] [address] [place] [address] Class 2 severe obesity due to excess [...] Instructions * Patient Instructions* Oseas Jill Carmine, VENDOR QUALITY SUPERVISOR - 01/02/2022 11:01 AM EST From our [...] training 3 times a week -can use YouFetch Nutrition - 12/13/21 On track Nutrition Goals: Establish exercise routine - goal of 150 minutes per week of aerobic exercise (treadmill, walking outside); resistance bands daily (alternate between upper and lower body); explore at home exercise options Choose protein first at all eating events - plain solomon islander yogurt, with fruit, 1 tsp ground flaxseed, unsweetened coconut flakes, nuts/seeds; vegetables with peanut butter/doshi dip/solomon islander yogurt dips/hard boiled egg/slice of deli meat/cheese stick; fruits with nuts/nut; protein on salad; butter/cheese/1/2 cup lowfat cottage cheese/solomon islander yogurt Practice Bariatric Drinking Behaviors - separate [...] to work on eating behaviors Health Machine Tack Puller is sending hand-outs with exercises for mindful [...] Farooq APRN - 01/02/2022 10:00 AM EST [facility] Patient Name: Leandra [...] 38.24kg/m??. and comorbidities. This is a follow-up [facility] visit for this 41 y.o. patient. Weight gain due to: depression, emotional eating, poor food choices Barriers: depression Initial visit: 06/07/21 Initial weight: 228 Initial BMI: 39.06 Goal weight: 160 10% loss: 22lb Today's weight: 224 Change since prior: down 4 lbs Wt Readings from Last 3 Encounters: 12/12/21 102.5 kg (226 lb) 10/25/21 101.2 kg (223 lb) 10/05/21 104.3 kg (230 lb) [facility] Team: Hailee Martínez RD HPI TODAY PATIENT [...] first at all eating events - plain solomon islander yogurt, with fruit, 1 tsp ground flaxseed, unsweetened coconut flakes, nuts/seeds; vegetables with peanut butter/doshi dip/solomon islander yogurt dips/hard boiled egg/slice of deli meat/cheese stick; fruits with nuts/nut; protein on salad; butter/cheese/1/2 cup lowfat cottage cheese/solomon islander yogurt ??? Practice Bariatric Drinking Behaviors - [...] to work on eating behaviors ?? Health Machine Tack Puller is sending hand-outs with exercises for mindful eating, The Pause/STOP and Urge surfing. Patient will review and try implementing some behaviors before we meet again. Pathway: [facility] PATHWAY - ADULT 12/01/2021 06/07/2021 Medication Therapy [...] 172 (H) 06/07/2021 No results found for: [id number] 25-OH Vit D Total (ng/mL) Date Value [...] Bariatric. 5 min chart review 22 min [id number] Visit time 6 min Documentation time I [...] to work on eating behaviors Health Machine Tack Puller is sending hand-outs with exercises for mindful [...] (pediatric) documented in this encounter Care Teams Network Cable Installer Relationship Specialty Start Date End Date Debby Puri MD [address] [place] [address] PCP - General Family Medicine 07/13/20 06/06/22 documented as of this encounter
--- OUTSIDE RECORDS SUMMARY | 2024-09-02 16:18 | XMS_ITS | Encounter Summary ---
Author Organization [facility] [place] [address] Care Team Providers Care Casting Carrier Name Role Phone Cari Banuelos MD Primary Care Provider [phone] Reason for Visit * Reason Onset Date Comments Prior Authorization 10/10/2016 Encounter Details Date Type Department Care Team ([facility] st Contact Info) Description 10/10/2016 Telephone Obstetrics [place] [address] Mildred Rodriguez Prior Authorization Social [...] - 10/10/2016 2:26 PM EST Addendum: per [place] Medicaid, no prior authorization needed for Lupron Depot. * Telephone Encounter - Mildred Rodriguez RN - 10/10/2016 11:05 AM EST Prior Authorization sent to [place] Medicaid for Lupron Depot 3.75mg IM monthly for 6 moths, awaiting approval. documented in this encounter Plan of Treatment Scheduled Procedures Name Priority Associated Diagnoses Date/Ti me COLONOSCOPY, DIAGNOSTIC (WRV U 3.26) Biliary stricture Screening for colon cancer documented as of this encounter Visit Diagnoses Not on filedocumented in this encounter Care Teams Casting Carrier Relationship Specialty Start Date End Date Cari Banuelos MD [address] [place] [address] PCP - General 10/10/10 07/12/20 documented as of this encounter
--- OUTSIDE RECORDS SUMMARY | 2024-09-02 16:18 | XMS_ITS | Encounter Summary ---
Author Organization [facility] Address [facility] [place] [address] Care Team Providers Care Developer Programmer Analyst Name Role Phone Debby Puri MD Primary Care Provider Encounter Details Date Type Department Care Team (Late st Contact Info) Description 12/01/2021 Abstract Weight and Wellness at [address] [phone] Jill Farooq APRN [facility] DR BETSY [place] [address] Social History Tobacco Use Types Packs/Day Years [...] psychologist to work on eating behaviors Health Animal Rehabilitator is sending hand-outs with exercises for mindful [...] on filedocumented in this encounter Care Teams Developer Programmer Analyst Relationship Specialty Start Date End Date Debby Puri MD [address] [place] [address] PCP - General Family Medicine 07/13/20 06/06/22 documented as of this encounter
--- OUTSIDE RECORDS SUMMARY | 2024-09-02 16:18 | XMS_ITS | Encounter Summary ---
Author Organization [facility] Address [facility] Kris [place] [id number] Care Team Providers Care Printing Estimator Name Role Phone Debby Puri MD Primary Care Provider [phone] Reason for Visit * Consultation (Routine) - Closed Specialty Diagnoses / Procedures Referred By Chela t Referred To Contact Weight and Wellness Diagnoses Class 2 severe obesity due to excess calories with serious comorbidity and body mass index (BMI) of 39.0 to 39.9 in adult Jill Farooq, MILK INSPECTOR [facility] [address] [facility] [place] [address] [facility] [address] [place] [phone] Referral ID Status Reason Start Date Expiration Date V isits Requested Visits Authorized [id number] Closed Consult, Test & Treat 01/02/2022 01/02/2023 1 1 Encounter Details Date Type Department Care Team (Latest Contact Info) Description 02/21/2022 8:00 AM EDT TH Visit (TeleHealth) Weight and Wellness at [address] [phone] Crystal Ferro, PhD [facility] [address] Trauma and stressor-related disorder; Generalized anxiety disorder; [...] [address] WEIGHT AND WELLNESS AT [address] [address] Dept: [phone] 02/21/2022 8:00 AM Leandra Wilks is a 41 y.o. female who was referred for evaluation and preparation for potential bariatric surgery. Leandra was seen for 60 minutes. Patient was alone, and was seen Telehealth. Leandra Wilks gave permission for and was seen for today's appointment with a Telehealth visit. During this visit they were located in [place], [place] at home. Leandra Wilks is aware that for any urgent matter they can call [phone]. RECOMMENDATION BASED ON PSYCHOLOGICAL EVALUATION YELLOW - [...] prefers: no preference Number of visits with anglesmith helper: 3 (1 with Jill Farooq APRN) WEIGHT [...] more focus on these. REALISTIC POSTSURGICAL GOALS/EXPECTATIONS [place] body weight (based on a BMI of [...] her to go the [facility] in [place], [place] so she did and had a [...] public, worries about how other people might food and beverage assistant manager her, declines plans History of trauma: Yes, [...] Diagnoses Orde r Schedule Amb Referral to [facility] Psych Evaluation Outpatient Referral Routine [...] psychologist to work on eating behaviors Health Kaitara Taraka is sending hand-outs with exercises for mindful [...] disorder documented in this encounter Care Teams Printing Estimator Relationship Specialty Start Date End Date Debby Puri MD [address] [place] [address] PCP - General Family Medicine 07/13/20 06/06/22 documented as of this encounter
--- OUTSIDE RECORDS SUMMARY | 2024-09-02 16:18 | XMS_ITS | Encounter Summary ---
Author Organization [facility] [place] [address] Care Team Providers Care Skin Grader Name Role Phone Debby Puri MD Primary Care Provider Encounter Details Date Type Department Care Team (Latest Contact Info) Description 07/20/2021 2:30 PM EDT TH Visit (TeleHealth) Weight and Wellness at [address] [phone] Jill Farooq APRN [facility] [address] [place] [address] Class 2 severe obesity due to excess [...] protein at breakfast and lunch - plain czech yogurt, with fruit, 1 tsp ground flaxseed, unsweetened coconut flakes, nuts/seeds; vegetables with peanut butter/doshi dip/czech yogurt dips/hard boiled egg/slice of deli meat/cheese stick; fruits with nuts/nut butter/cheese/1/2 cup lowfat cottage cheese/czech yogurt ??? Establish bedtime routine - dim [...] APRN - 07/20/2021 2:30 PM EDT [facility] Visit Patient provided verbal consent prior to initiation of this telemedicine encounter and expressed understanding that the telemedicine visit may be billed similar to a clinic visit, pt was seen while in [facility], I spent a total of 30 [...] protein at breakfast and lunch - plain czech yogurt, with fruit, 1 tsp ground flaxseed, unsweetened coconut flakes, nuts/seeds; vegetables with peanut butter/doshi dip/czech yogurt dips/hard boiled egg/slice of deli meat/cheese stick; fruits with nuts/nut butter/cheese/1/2 cup lowfat cottage cheese/czech yogurt ??? Establish bedtime routine - dim [...] / interim records including notes and labs [facility] Followup Responses 07/09/2021 URICA - Readiness Score [...] pending Since you were last seen at [facility], are you having any of the following; [...] psychologist to work on eating behaviors Health Pastoral Assistant is sending hand-outs with exercises for [...] training 3 times a week -can use ther[employer]arelog[employer] Nutrition - 09/26/22 Lifestyle On track(2021 10:29 [...] adult documented in this encounter Care Teams Skin Grader Relationship Specialty Start Date End Date Debby Puri MD [address] [place] [address] PCP - General Family Medicine 07/13/20 06/06/22 documented as of this encounter
--- OUTSIDE RECORDS SUMMARY | 2024-09-02 16:18 | XMS_ITS | Encounter Summary ---
Author Organization [facility] Address [facility] [place] [address] Care Team Providers Care Hr Internship Name Role Phone Debby Puri MD Primary Care Provider Encounter Details Date Type Department Care Team ([facility] st Contact Info) Description 06/02/2021 Notes Only Sleep Center at [facility] [address] [place] [address] Alejandra Mendez, RN Social History Tobacco Use Types Packs/Day Years Used Date Smoking Tobacco: Never Smokeless Tobacco: Never Sex and Gender Information Value Date Recorded Sex Assigned at Female 10/05/2021 8:56 AM EST Gender Identity Not on file Sexual Orientation Straight 10/05/2021 8: 56 AM EST documented as of this encounter Progress Notes * Alejandra Mendez - 06/02/2021 10:00 AM EDT [facility] New Patient Referral Chart Prep Note Leandra Wilks 1980 Referring Provider: PCP [] [facility] referral (Epic) [x] External Referral (scanned document) [...] on filedocumented in this encounter Care Teams Hr Internship Relationship Specialty Start Date End Date Debby Puri MD [address] [place] [address] PCP - General Family Medicine 07/13/20 06/06/22 documented as of this encounter
--- OUTSIDE RECORDS SUMMARY | 2024-09-02 16:18 | XMS_ITS | Encounter Summary ---
Author Organization [facility] [place] [address] Care Team Providers Care Box Closing Machine Operator Name Role Phone Debby Puri MD Primary Care Provider Encounter Details Date Type Department Care Team (Late st Contact Info) Description 04/05/2022 Telephone Weight and Wellness at [address] [phone] Crystal [place]ro, [place] [address] Social History Tobacco Use Types Packs/Day Years [...] psychologist to work on eating behaviors Health Social Work Specialist is sending hand-outs with exercises for [...] on filedocumented in this encounter Care Teams Box Closing Machine Operator Relationship Specialty Start Date End Date Debby Puri MD [address] [place] [address] PCP - General Family Medicine 07/13/20 06/06/22 documented as of this encounter
--- OUTSIDE RECORDS SUMMARY | 2024-09-02 16:18 | XMS_ITS | Encounter Summary ---
Author Organization [facility] Address [facility] [place] [address] Care Team Providers Care Virtual Recruiter Name Role Phone Debby Puri MD Primary Care Provider [phone] Encounter Details Date Type Department Care Team (Late st Contact Info) Description 09/08/2021 Telephone Sleep Center at [facility] [address] [place] [phone] Christa Resendiz Social History Tobacco Use Types Packs/Day [...] On track(2021 10:28 AM EST) Jill Colmenares, ENVIRONMENTAL HEALTH AND SAFETY MANAGER Note: Mindfulness/deep breathing practice to reduce cortisol -try for at least 10 minutes a day -try an ap such as headspace I have referred you to our psychologist to work on eating behaviors Health Installation Service Representative is sending hand-outs with exercises for mindful eating, The Pause/STOP and Urge surfing. Patient will review and try implementing some behaviors before we meet again. movement Lifestyle On track(2021 10:29 AM EST) Jill Colmenares, ENVIRONMENTAL HEALTH AND SAFETY MANAGER Note: Exercise goal is 150 min [...] on filedocumented in this encounter Care Teams Virtual Recruiter Relationship Specialty Start Date End Date Debby Puri MD [address] [place] [address] PCP - General Family Medicine 07/13/20 06/06/22 documented as of this encounter
--- OUTSIDE RECORDS SUMMARY | 2024-09-02 16:18 | XMS_ITS | Encounter Summary ---
[place] [address] Care Team Providers Care Service Department Manager Name Role Phone Debby Puri MD Primary Care Provider Reason for Visit * Reason Onset Date Comments Appointment 08/08/2021 Encounter Details Date Type Department Care Team ([facility] st Contact Info) Description 08/08/2021 Telephone Weight and Wellness at [address] [phone] Crystal Gross Appointment Social History [...] Return in about 8 weeks (around 09/14/2021) [place], 30 minute follow up, HLP documented in [...] psychologist to work on eating behaviors Health Metal Bed Assembler is sending hand-outs with exercises for [...] filedocumented in this encounter Care Teams Service Department Manager Relationship Specialty Start Date End Date Debby Puri MD [address] [place] [address] PCP - General Family Medicine 07/13/20 06/06/22 documented as of this encounter
--- OUTSIDE RECORDS SUMMARY | 2024-09-02 16:18 | XMS_ITS | Encounter Summary ---
Author Organization [facility] Address [facility] [place] [address] Care Team Providers Care Egg Pasteurizer Name Role Phone Debby Puri MD Primary Care Provider [phone] Reason for Referral * Consultation (Routine) - Canceled Specialty Diagnoses / Procedures Referred By Contangelo t Referred To Contact Weight and Wellness Diagnoses Eating disorder, unspecified type Crystal Ferro, PhD [facility] [place] [address] Loli Valerio, PhD [facility] [place] [address] Referral ID Status Reason Start Date Expiration Date V isits Requested Visits Authorized [id number] Canceled Consult, Test & Treat 04/04/2022 04/04/2023 1 1 Encounter Details Date Type Department Care Team (Latest Contact Info) Description 04/04/2022 11:30 AM EDT TH Visit (TeleHealth) Weight and Wellness at [address] [phone] Crystal Ferro, PhD [facility] [place] [address] Eating disorder, unspecified type (Primary Dx); Trauma [...] EDT BARIATRIC SURGERY FOLLOW UP NOTE N [facility] WEIGHT AND WELLNESS AT [facility] [address] [facility] [address] Dept: [phone] 04/04/2022 11:30AM Leandra Wilks is a 42 [...] visit they were located at home in [place], [place]. Leanrda Wilks is aware that for any urgent matter they can call [phone].. Plan: At today's visit we identified several [...] cream bars, ate 4 in a single sitting.[place] a sense of less control, described feeling [...] psychologist to work on eating behaviors Health Windows Server Architect is sending hand-outs with exercises for [...] disorder documented in this encounter Care Teams Egg Pasteurizer Relationship Specialty Start Date End Date Debby Puri MD [address] [place] [address] PCP - General Family Medicine 07/13/20 06/06/22 documented as of this encounter
--- OUTSIDE RECORDS SUMMARY | 2024-09-02 16:18 | XMS_ITS | Encounter Summary ---
Author Organization [facility] Address [facility] [place] [address] Care Team Providers Care Merchandise Executive Name Role Phone Debby Puri MD Primary Care Provider [phone] Reason for Visit * Diagnostic Test (Routine) - Closed Specialty Diagnoses / Procedures Referred By Chela dyole Referred To Contact Sleep Center Diagnoses Snoring Procedures Sleep Study Diagnostic PSG / Split Night Sleep Study Diagnostic PSG / Split Night PSG Sharla Kirkland MD [facility] [place] [address] [facility] Sleep Medicine [address] [place] [address] Referral ID Status Reason Start Date Expiration Date V isits Requested Visits Authorized [id number] Closed Specialty Service Requested 09/26/2021 09/26/2022 1 1 Encounter Details Date Type Department Care Team (Late Contact Info) Description 12/12/2021 7:30 PM EST Procedure visit Sleep Center at [facility] [address] [place] [address] Sharla Kirkland MD [facility] [place] [address] CHUN (obstructive sleep apnea) (Primary [...] bed are also recommended. Sharla Kirkland MD [facility] Sleep Disorders Center REPORT of Diagnostic Polysomnography [...] hypopneas associated with an arousal or a >= 3% desaturation. Supine Non-Sup. REM NREM Total Count: 34 15 3 46 49 Index (events/hr): 7.0 5.6 2.2 7.4 AHI = 6.5 CMS AHI: Includes all apneas & only hypopneas associated with a >= 4% desaturation. Supine Non-Sup. REM NREM Total [...] NREM (minutes) REM (minutes) All Sleep (minutes) <=90% 0.0 0.0 0.0 0.0 <=89% 0.0 0.0 0.0 0.0 <=88% 0.0 0.0 0.0 0.0 90-99% 54.7 370.5 81.5 452.0 80-89.9% 0.0 0.0 0.0 0.0 79-79.9% 0.0 0.0 0.0 0.0 60-69.9% 0.0 0.0 0.0 0.0 50-59.9% 0.0 0.0 0.0 0.0 <=50% 0.0 0.0 0.0 0.0 Cardiac Details Heart [...] Scheduled Procedures Name Priority Associated Diagnoses Date/Ti mn COLONOSCOPY, DIAGNOSTIC (WRV U 3.26) Biliary stricture [...] On track(2021 10:28 AM EST) Jill Colmenares, KAYAK MAKER Note: Mindfulness/deep breathing practice to reduce cortisol -try for at least 10 minutes a day -try an ap such as headspace I have referred you to our psychologist to work on eating behaviors Health Junior Electrical Engineer is sending hand-outs with exercises for mindful eating, The Pause/STOP and Urge surfing. Patient will review and try implementing some behaviors before we meet again. movement Lifestyle On track(2021 10:29 AM EST) Jill Colmenares, KAYAK MAKER Note: Exercise goal is 150 min [...] abnormality documented in this encounter Care Teams Merchandise Executive Relationship Specialty Start Date End Date Debby Puri MD [address] [place] [address] PCP - General Family Medicine 07/13/20 06/06/22 documented as of this encounter
--- OUTSIDE RECORDS SUMMARY | 2024-09-02 16:18 | XMS_ITS | Encounter Summary ---
Author Organization [facility] [place] [address] Care Team Providers Care Java Tech Lead Name Role Phone Debby Puir MD Primary Care Provider Encounter Details Date Type Department Care Team (Latest Contact Info) Description 10/05/2021 10:30 AM EST TH Visit (TeleHealth) Weight and Wellness at [address] [phone] Jill Farooq APRN [facility] DR BETSY [place] [address] Class 2 severe obesity due to excess [...] she knows she can reach out on [facility] anytime. documented in this encounter Plan of [...] to work on eating behaviors Health Physician Recruiter is sending hand-outs with exercises for [...] adult documented in this encounter Care Teams Java Tech Lead Relationship Specialty Start Date End Date Debby Puri MD [address] [place] [address] PCP - General Family Medicine 07/13/20 06/06/22 documented as of this encounter
--- OUTSIDE RECORDS SUMMARY | 2024-09-02 16:18 | XMS_ITS | Encounter Summary ---
Author Organization [facility] Address [facility] [place] [address] Care Team Providers Care Aviation Medicine Specialist Name Role Phone Debby Puri MD Primary Care Provider [phone] Encounter Details Date Type Department Care Team (Late st Contact Info) Description 01/02/2022 Abstract Weight and Wellness at [address] [phone] Jill Farooq APRN [facility] [address] BETSY [place] [address] Social History Tobacco Use Types Packs/Day Years [...] psychologist to work on eating behaviors Health Furnace Cleaner is sending hand-outs with exercises for mindful [...] on filedocumented in this encounter Care Teams Aviation Medicine Specialist Relationship Specialty Start Date End Date Debby Puri MD [address] [place] [address] PCP - General Family Medicine 07/13/20 06/06/22 documented as of this encounter
--- OUTSIDE RECORDS SUMMARY | 2024-09-02 16:18 | XMS_ITS | Encounter Summary ---
Author Organization [place] [place] [address] Care Team Providers Care Assistant Merchandise Manager Name Role Phone Debby Puri MD Primary Care Provider Encounter Details Date Type Department Care Team ([facility] Contact Info) Description 10/04/2021 Telephone Weight and Wellness at [address] [phone] Taylor Padilla, MAX Social History Tobacco Use [...] 3:30 PM EST [facility] Dr[facility] Underpresser Hand Pre-telemedicine Visit Phone Note Leandra Wilks 1980 [] Patient was not reached: [] No working phone [] Not able to leave message [] Message left with visit info/call [phone] [] ZOOM link sent if no MyDH [x] Patient was reached and the following information was reviewed/obtained per protocol: [] Confirmed patient name and date of [x] Confirmed address where patient will be at time of call Patient is in [] [place] [x] [place] [] Other: [address] [facility] [address] [x] Confirmed best number to be reached is: [phone] [] Reminded to sign up for MyD [...] Yes: [x] Confirmed preferred pharmacy: [facility] [place] Documented self reported vital signs from [] None available [x] Home [] PCP [] outside PCP Date: 10/03/21 [x] Weight 226 [] Height [] Blood pressure [] Pulse Any recent labs/studies [x] No [] Yes: [] Labs/vitals requested [] labs/vitals scanned (certified legal secretary specialist) and entered (RN) [x] Requested 24 hour diet recall [] Other information or concerns: Interested in [facility] QI project [x] No [] Yes [...] psychologist to work on eating behaviors Health Weapons Electrical Engineering Officer is sending hand-outs with exercises for mindful eating, The Pause/STOP and Urge surfing. Patient will review and try implementing some behaviors before we meet again. movement Lifestyle On track(2021 10:29 AM EST) Jill Colmenares, AIR TRAFFIC SYSTEMS TECHNICIAN Note: Exercise goal is 150 min a week, just do some walking, even [address] to start Recommend resistance training 3 times a week -can use therLearn[employer]op Nutrition - 09/26/22 Lifestyle On track(2021 10:29 [...] filedocumented in this encounter Care Teams Assistant Merchandise Manager Relationship Specialty Start Date End Date Debby Puri MD [address] [place] [address] PCP - General Family Medicine 07/13/20 06/06/22 documented as of this encounter
--- OUTSIDE RECORDS SUMMARY | 2024-09-02 16:18 | XMS_ITS | Encounter Summary ---
Author Organization [facility] Address [facility] [place] [address] Care Team Providers Care Filling Station Laborer Name Role Phone Debby Puri MD Primary Care Provider [phone] Reason for Referral * Diagnostic Test (Routine) - Closed Specialty Diagnoses / Procedures Referred By Chela doyle Referred To Contact Sleep Center Diagnoses Snoring Procedures Sleep Study Diagnostic PSG / Split Night Sleep Study Diagnostic PSG / Split Night PSG Sharla Kirkland MD [facility] [place] [address] [facility] Sleep Medicine [address] [place] [address] Referral ID Status Reason Start Date Expiration Date V isits Requested Visits Authorized [id number] Closed Specialty Service Requested 09/26/2021 09/26/2022 1 1 Encounter Details Date Type Department Care Team (Late st Contact Info) Description 09/12/2021 11:00 AM EDT Procedure visit Sleep Center at [facility] [address] [place] [address] Sharla Kirkland MD [facility] [place] [address] Snoring (Primary Dx) Social History [...] Puri MD History Of Present Illness: Leandra iWlks is a 41 y.o. female who presents [...] apnea severity. Results and recommendations relayed via rVue. Recommendations: To assess if CHUN is playing a role in her presenting symptoms, a formal in lab PSGin recommended. - In lab polysomnogram Sharla Kirkland MD * VectorLearning message sent [facility] Sleep Disorders Center HOME SLEEP APNEA TEST REPORT Patient Name: Leandra Wilks Study Date: 09/12/2021 Age & Sex: 41 y.o. Female Height: 5'4.17 Date of : 1980 Weight: 228 BMI: 38.9 Referring Prov.: Scoring Tech: Shari Lyons [facility] Sleep Fellow: Sleep Specialist: SHARLA KIRKLAND M.D. [...] associated desaturation 0 0.0 Hypopneas with desaturation >=4% (CMS) 23 3.5 4% Respiratory Event Index (4%GOYO): 4.1 *Includes the sum of all apneas and hypopneas (assoc. with desaturation of >=4%) per hour of monitoring. 4% AHI (CMS): 4.1 *Includes the sum of all apneas and hypopneas (assoc. with desaturation of >=4%) per hour of monitoring. Marcos-Alaniz Breathin.0% of total monitoring time Minimum SpO2: 89% Average SpO2 (during TRT): 96% SpO2 <= X%: Total Time <=90% 1.0 min <=89% 0.6 min <=88% 0.5 min SpO2 Ranges: Total Time 90%-99% [...] to work on eating behaviors Health Operations Research Manager is sending hand-outs with exercises for [...] abnormality documented in this encounter Care Teams Filling Station Laborer Relationship Specialty Start Date End Date Debby Puri MD [address] [place] [address] PCP - General Family Medicine 07/13/20 06/06/22 documented as of this encounter
--- OUTSIDE RECORDS SUMMARY | 2024-09-02 16:18 | XMS_ITS | Encounter Summary ---
Author Organization Count Includes [facility] Address [facility] [place] [address] Care Team Providers Care Block Placer Name Role Phone Debby Puri MD Primary Care Provider [phone] Reason for Referral * Consultation (Routine) - Specialty Diagnoses / Procedures Referred By Chela doyle Referred To Contact Weight and Wellness Diagnoses Class 2 severe obesity due to excess calories with serious comorbidity and body mass index (BMI) of 39.0 to 39.9 in adult Jill Farooq APRN [facility] [place] [address] [facility] [address] [place] [id number] Referral ID Status Reason Start Date Expiration Date V isits Requested Visits Authorized [id number] Consult, Test & Treat 11/29/2021 11/29/2022 1 1 Encounter Details Date Type Department Care Team (Late st Contact Info) Description 11/29/2021 Orders Only Weight and Wellness at [facility] [address] [place] [phone] Jill Farooq APRN [facility] [place] [address] Class 2 severe obesity due to excess [...] to work on eating behaviors Health Instructional Coach is sending hand-outs with exercises for mindful [...] adult documented in this encounter Care Teams Block Placer Relationship Specialty Start Date End Date Debby Puri MD [address] [place] [address] PCP - General Family Medicine 07/13/20 06/06/22 documented as of this encounter
--- OUTSIDE RECORDS SUMMARY | 2024-09-02 16:18 | XMS_ITS | Encounter Summary ---
Author Organization [facility] [place] [address] Care Team Providers Care Airborne Missions Systems Name Role Phone Debby Puri MD Primary Care Provider [phone] Encounter Details Date Type Department Care Team ([facility] st Contact Info) Description 12/18/2020 Notes Only Weight and Wellness at [address] [phone] Alejandra Mendez, RN Social History Tobacco Use Types Packs/Day Years Used Date Smoking Tobacco: Never Smokeless Tobacco: Never Sex and Gender Information Value Date Recorded Sex Assigned at Female 10/05/2021 8:56 AM EST Gender Identity Not on file Sexual Orientation Straight 10/05/2021 8: 56 AM EST documented as of this encounter Progress Notes * Alejandra Mendez - 12/18/2020 2:33 PM EST [facility] New Patient Referral Chart Prep Note Leandra [...] on filedocumented in this encounter Care Teams Airborne Missions Systems Relationship Specialty Start Date End Date Debby Puri MD [address] [place] [address] PCP - General Family Medicine 07/13/20 06/06/22 documented as of this encounter
--- OUTSIDE RECORDS SUMMARY | 2024-09-02 16:18 | XMS_ITS | Encounter Summary ---
Author Organization [facility] [place] [address] Care Team Providers Care Director Design Name Role Phone Debby Puri MD Primary Care Provider Encounter Details Date Type Department Care Team ([facility] st Contact Info) Description 11/24/2021 2:00 PM EST Notes Only General Surgery at [facility] [place] [phone] Social History Tobacco Use Types Packs/Day Years [...] TO BARIATRIC SURGERY ON 11/24/2021 FOR THE [facility] [facility] documented in this encounter Plan of [...] psychologist to work on eating behaviors Health Pre K Teacher is sending hand-outs with exercises for mindful eating, The Pause/STOP and Urge surfing. Patient will review and try implementing some behaviors before we meet again. movement Lifestyle On track(2021 10:29 AM EST) Jill Colmenares, TWISTER TENDER Note: Exercise goal is 150 min a week, just do some walking, even [address] to start Recommend resistance training 3 times a week -can use therLoctronix Nutrition - 09/26/22 Lifestyle On track(2021 10:29 [...] filedocumented in this encounter Care Teams Director Design Relationship Specialty Start Date End Date Debby Puri MD [address] [place] [address] PCP - General Family Medicine 07/13/20 06/06/22 documented as of this encounter
--- OUTSIDE RECORDS SUMMARY | 2024-09-02 16:18 | XMS_ITS | Encounter Summary ---
Author Organization [facility] [place] [address] Care Team Providers Care Sample Mounter Name Role Phone Debby Puri MD Primary Care Provider Encounter Details Date Type Department Care Team ([facility] Contact Info) Description 10/25/2021 11:00 AM EST TH Visit (TeleHealth) Weight and Wellness at [address] [address] [facility] [place] [address] Adult BMI 38.0-38.9 kg/sq m Social History [...] protein at breakfast and dinner - plain wallisian yogurt, with fruit, 1 tsp ground flaxseed, unsweetened coconut flakes, nuts/seeds; vegetables with peanut butter/doshi dip/wallisian yogurt dips/hard boiled egg/slice of deli meat/cheese stick; fruits with nuts/nut butter/cheese/1/2 cup lowfat cottage cheese/wallisian yogurt ??? Increase vegetables at lunch and [...] was at home at the following address: [address] [place] [id number] Weight Today: Wt Readings from Last 3 [...] protein at breakfast and dinner - plain wallisian yogurt, with fruit, 1 tsp ground flaxseed, unsweetened coconut flakes, nuts/seeds; vegetables with peanut butter/doshi dip/wallisian yogurt dips/hard boiled egg/slice of deli meat/cheese stick; fruits with nuts/nut butter/cheese/1/2 cup lowfat cottage cheese/wallisian yogurt ??? Increase vegetables at lunch and [...] to work on eating behaviors ?? Health Brazer Resistance is sending hand-outs with exercises for mindful [...] psychologist to work on eating behaviors Health Brazer Resistance is sending hand-outs with exercises for mindful [...] adult documented in this encounter Care Teams Sample Mounter Relationship Specialty Start Date End Date Debby Puri MD [address] [place] [address] [address] [facility] [address] [place] [address] PCP - General Family Medicine 07/13/20 06/06/22 documented as of this encounter
--- OUTSIDE RECORDS SUMMARY | 2024-09-02 16:18 | XMS_ITS | Encounter Summary ---
Author Organization [facility] [place] [address] Care Team Providers Care Tandem Mill Roller Name Role Phone Debby Puri MD Primary Care Provider Encounter Details Date Type Department Care Team ([facility] st Contact Info) Description 08/04/2021 Telephone Weight and Wellness at [address] [phone] Russ Henry Social History Tobacco [...] psychologist to work on eating behaviors Health Credit Card Clerk is sending hand-outs with exercises for mindful eating, The Pause/STOP and Urge surfing. Patient will review and try implementing some behaviors before we meet again. movement Lifestyle On track(2021 10:29 AM EST) No Jill Farooq, DISC JOCKEY Note: Exercise goal is 150 min a [...] on filedocumented in this encounter Care Teams Tandem Mill Roller Relationship Specialty Start Date End Date Debby Puri MD [address] [place] [address] 1 [place] [address] PCP - General Family Medicine 07/13/20 06/06/22 documented as of this encounter
--- OUTSIDE RECORDS SUMMARY | 2024-09-02 16:18 | XMS_ITS | Encounter Summary ---
Author Organization [facility] [place] [address] Care Team Providers Care Set Builder Name Role Phone Debby Puri MD Primary Care Provider Encounter Details Date Type Department Care Team ([facility] st Contact Info) Description 03/02/2021 External Results Weight and Wellness at [address] [phone] Alejandra Mendez, RN Social History Tobacco Use [...] Procedure Name Priority Date/Time Associated Diagnosis Comments [facility] EXTERNAL RESULT PANEL Routine 02/15/2021 documented in this encounter Results * (ABNORMAL) [facility] External Results (02/15/2021) Blood Urea Nitrogen 12(Mechanical Service Specialist al Lab) Creatinine 0.9(Exter nal Lab) Sodium 139(Exter nal Lab) Potassium 4.0(Exter nal Lab) Chloride 103(Exter nal Lab) Carbon Dioxide 26(Mechanical Service Specialist al Lab) Anion Gap 10(Mechanical Service Specialist al Lab) Calcium 8.8(Exter nal Lab) Protein, Total 7.6(Exter nal Lab) Albumin 4.1(Exter nal Lab) Aspartate Aminotransferase 15(Mechanical Service Specialist al Lab) Alanine Aminotransferase 29(Mechanical Service Specialist al Lab) Alkaline Phosphatase 148(Exter nal Lab) Bilirubin, Total 0.2(Exter nal Lab) Est Glomerular Filtration Rate >60(Exter nal Lab) Glucose 92(Mechanical Service Specialist al Lab) 02/15/2021 Historical Provider POINT OF CARE ANIYA T ORDERABLES documented in this encounter Visit Diagnoses Not on filedocumented in this encounter Care Teams Set Builder Relationship Specialty Start Date End Date Debby Puri MD [address] [place] [address] PCP - General Family Medicine 07/13/20 06/06/22 documented as of this encounter
--- OUTSIDE RECORDS SUMMARY | 2024-09-02 16:18 | XMS_ITS | Encounter Summary ---
Author Organization [facility] [place] [address] Care Team Providers Care Real Property Evaluator Name Role Phone Cari Banuelos MD Primary Care Provider [phone] Reason for Referral * Consultation (Routine) - Closed Specialty Diagnoses / Procedures Referred By Contac t Referred To Contact Urology Diagnoses Chronic pelvic pain in female Corey Huizar MD [facility] DR OBSTETRICS [place] [address] [facility] [place] [address] Referral ID Status Reason Start Date Expiration Date V isits Requested Visits Authorized [id number] Closed Consult, Test & Treat 10/05/2016 10/05/2017 1 1 Reason for Visit * Reason Comments Gynecologic Exam Establish Care * Consultation (Routine) - Closed Specialty Diagnoses / Procedures Referred By Contac t Referred To Contact Obstetrics and Gynecology Diagnoses cysts of both ovaries Cari Banuelos MD [address] [place] [address] [facility] [address] [place] [address] Referral ID Status Reason Start Date Expiration Date V isits Requested Visits Authorized [id number] Closed Evaluate and Treat [facility] 09/04/2016 09/04/2017 1 1 Encounter Details Date Type Department Care Team (Late st Contact Info) Description 10/05/2016 3:30 PM EST Office Visit Obstetrics [place] [address] Corey Huizar MD [facility] DR OBSTETRICS [place] [address] Chronic pelvic pain in female Social History [...] urination. Leandra underwent total vaginal hysterectomy in [facility] in 2014, which did not relieve [...] 12, for a total score of 24. [id number] urinalysis is unremarkable. Impression: Chronic pelvic pain, [...] suppression. 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
--- OUTSIDE RECORDS SUMMARY | 2024-09-02 16:18 | XMS_ITS | Encounter Summary ---
Author Organization [facility] Address [facility] [place] [address] Care Team Providers Care Production Underwriter Name Role Phone Cari Banuelos MD Primary Care Provider [phone] Encounter Details Date Type Department Care Team (Latest Contact Info) Description 08/29/2016 - 08/29/2016 11:59 PM EDT Hospital Encounter Radiology Library at [facility] [place] [address] Corey Huizar MD [facility] OBSTETRICS [place] [address] Pain Discharge Disposition: Home Social History Tobacco [...] FILM LIBRARY ORD ERABLES Performing Organization Address City/State/[facility] Co de Phone Number [place], [place] documented in this encounter Visit Diagnoses Diagnosis Pain Generalized pain documented in this encounter Care Teams Production Underwriter Relationship Specialty Start Date End Date Cari Banuelos MD [address] [place] [address] PCP - General 10/10/10 07/12/20 documented as of this encounter
--- OUTSIDE RECORDS SUMMARY | 2024-09-02 16:18 | XMS_ITS | Encounter Summary ---
Author Organization [facility] [address] Care Team Providers Care Ophthalmologist Name Role Phone Debby Puri MD Primary Care Provider Encounter Details Date Type Department Care Team ([facility] st Contact Info) Description 03/02/2021 Notes Only Weight and Wellness at [address] [phone] Alejandra Mendez, RN Social History Tobacco Use Types Packs/Day Years Used Date Smoking Tobacco: Never Smokeless Tobacco: Never Sex and Gender Information Value Date Recorded Sex Assigned at Female 10/05/2021 8:56 AM EST Gender Identity Not on file Sexual Orientation Straight 10/05/2021 8: 56 AM EST documented as of this encounter Progress Notes * Alejandra Mendez - 03/02/2021 2:55 PM EDT [facility] New Patient Referral Chart Prep Note Leandra Wilks 1980 Referring Provider: PCP [] [facility] referral (Epic) [x] External Referral (scanned document) [...] on filedocumented in this encounter Care Teams Ophthalmologist Relationship Specialty Start Date End Date Debby Puri MD [address] [place] [address] PCP - General Family Medicine 07/13/20 06/06/22 documented as of this encounter
--- OUTSIDE RECORDS SUMMARY | 2024-09-02 16:19 | XMS_ITS | Encounter Summary ---
Author Organization [facility] [place] [address] Care Team Providers Care Shipping & Receiving Lead Name Role Phone Cari Banuelos MD Primary Care Provider [phone] Encounter Details Date Type Department Care Team (Late st Contact Info) Description 10/27/2010 11:00 AM EST Follow-[place] [address] Ninoska Ybarra MD [facility] DR GASTROENTER[place]Y [place] [address] Discharge Disposition: Home Social History Tobacco Use [...] filedocumented in this encounter Care Teams Shipping & Receiving Lead Relationship Specialty Start Date End Date Cari Banuelos MD [address] [place] [address] PCP - General 10/10/10 07/12/20 documented as of this encounter
--- OUTSIDE RECORDS SUMMARY | 2024-09-02 16:19 | XMS_ITS | Encounter Summary ---
Author Organization [facility] Address [facility] [place] [address] Care Team Providers Care Blower Blast Furnace Name Role Phone Cari Banuelos MD Primary Care Provider Encounter Details Date Type Department Care Team (Latest Contact Info) Description 09/21/2015 - 09/21/2015 11:59 PM EST Hospital Encounter Radiology Library at [facility] [place] [address] Corey Huizar MD [facility] [place] [address] Pain Discharge Disposition: Home Social History Tobacco [...] Ultrasound Study (09/21/2015 12:00 AM EST) Narrative [facility] - 09/13/2016 1:20 AM EDT This exam is for storage only and is auto-finalizing. Corey Huizar MD G FILM LIBRARY ORD ERABLES Performing Organization Address City/State/[facility] Co de Phone Number [place], [place] documented in this encounter Visit Diagnoses Diagnosis Pain Generalized pain documented in this encounter Care Teams Blower Blast Furnace Relationship Specialty Start Date End Date Cari Banuelos MD [address] [facility] [address] [place] [address] PCP - General 10/10/10 07/12/20 documented as of this encounter
--- OUTSIDE RECORDS SUMMARY | 2024-09-02 16:19 | XMS_ITS | Encounter Summary ---
Author Organization [facility] [place] [address] Care Team Providers Care Reimbursement Rep Name Role Phone Unavailable Primary Care Provider Unavailabl e Encounter Details Date Type Department Care Team (Latest Contact Info) Description 12/22/2009 - 12/22/2009 11:59 PM EST Hospital Encounter Radiology Library at [facility] [place] [address] Corey Huizar MD [facility] OBSTETRICS [place] [address] Pain Discharge Disposition: Home Social History Tobacco [...] Ultrasound Study (12/22/2009 12:00 AM EST) Narrative [facility] - 09/13/2016 1:16 AM EDT This exam is for storage only and is auto-finalizing. Corey Huizar MD [facility] FILM LIBRARY ORD ERABLES [place], [place] documented in this encounter Visit Diagnoses Diagnosis Pain Generalized pain documented in this encounter
--- OUTSIDE RECORDS SUMMARY | 2024-09-02 16:19 | XMS_ITS | Encounter Summary ---
Author Organization [facility] Address [facility] [place] [address] Care Team Providers Care Manager Multicultural Name Role Phone Sree High APRN Primary Care Provider [phone] Encounter Details Date Type Department Care Team (Late st Contact Info) Description 10/27/2007 Orders Only [place] [address] Hector Cramer MD [facility] [place] [address] Social History Tobacco Use Types Packs/Day Years Used Date Smoking Tobacco: Never Assessed [facility] Inpatient Questions Answer Date Recorded Does Anyone [...] Lifestyle On track(2021 10:28 AM EST) Jill Colmneares, ROAD MAKER Note: Mindfulness/deep breathing practice to reduce cortisol -try for at least 10 minutes a day -try an ap such as headspace I have referred you to our psychologist to work on eating behaviors Health Bath Design Sales Consultant is sending hand-outs with exercises for mindful eating, The Pause/STOP and Urge surfing. Patient will review and try implementing some behaviors before we meet again. movement Lifestyle On track(2021 10:29 AM EST) Jill Colmenares, ROAD MAKER Note: Exercise goal is 150 min a week, just do some walking, even [address] to start Recommend resistance training 3 times a week -can use ther[employer] Nutrition - 09/26/22 Lifestyle On track(2021 10:29 [...] Pathology Report (10/29/2007 11:09 AM EST) Pathologist [facility] Surgical Pathology Report [id number] ? Location: [facility]; [facility]; B The signing pathologist has (i) examined [...] EST Hector Cramer MD PATHOLOGY/CYTOLOGY ORDERABLES [facility] documented in this encounter Visit Diagnoses Not on filedocumented in this encounter Care Teams Manager Multicultural Relationship Specialty Start Date End Date Sree High, ROAD MAKER [address] [place] [address] PCP - General Family Medicine 12/19/22 documented as of this encounter
--- OUTSIDE RECORDS SUMMARY | 2024-09-02 16:19 | XMS_ITS | Encounter Summary ---
Author Organization [facility] Address [facility] [place] [address] Care Team Providers Care Ui Designer Name Role Phone Cari Banuelos MD Primary Care Provider Encounter Details Date Type Department Care Team (Latest Contact Info) Description 06/08/2014 - 06/08/2014 11:59 PM EDT Hospital Encounter Radiology Library at [facility] [place] [address] Corey Huizar MD [facility] OBSTETRICS [place] [address] Pain Discharge Disposition: Home Social History Tobacco [...] Ultrasound Study (06/08/2014 12:00 AM EDT) Narrative [facility] - 09/13/2016 1:18 AM EDT This exam is for storage only and is auto-finalizing. Corey Huizar MD IMG FILM LIBRARY ORD ERABLES Performing Organization Address City/State/[facility] Co de Phone Number [place], [place] documented in this encounter Visit Diagnoses Diagnosis Pain Generalized pain documented in this encounter Care Teams Ui Designer Relationship Specialty Start Date End Date Cari Banuelos MD [address] [place] [address] PCP - General 10/10/10 07/12/20 documented as of this encounter
--- OUTSIDE RECORDS SUMMARY | 2024-09-02 16:19 | XMS_ITS | Encounter Summary ---
Author Organization [facility] Address [facility] [place] [address] Care Team Providers Care Psychiatric Aide Name Role Phone Cari Banuelos MD Primary Care Provider [phone] Encounter Details Date Type Department Care Team (Latest Contact Info) Description 07/22/2013 - 07/22/2013 11:59 PM EDT Hospital Encounter Radiology Library at [facility], [place], [facility] [place] [address] Corey Huizar MD [facility] OBSTETRICS [place] [address] Pain Discharge Disposition: Home Social History Tobacco [...] Ultrasound Study (07/22/2013 12:00 AM EDT) Narrative [facility] - 09/13/2016 1:17 AM EDT This exam is for storage only and is auto-finalizing. Corey Huizar MD IMG FILM LIBRARY ORD ERABLES Performing Organization Address City/State/[facility] Co de Phone Number [place], [place] documented in this encounter Visit Diagnoses Diagnosis Pain Generalized pain documented in this encounter Care Teams Psychiatric Aide Relationship Specialty Start Date End Date Cari Banuelos MD [address] [place] [address] PCP - General 10/10/10 07/12/20 documented as of this encounter
--- OUTSIDE RECORDS SUMMARY | 2024-09-02 16:19 | XMS_ITS | Encounter Summary ---
[place] [address] Care Team Providers Care Desk Maker Name Role Phone Cari Banuelos MD Primary Care Provider [phone] Encounter Details Date Type Department Care Team (Late st Contact Info) Description 05/03/2011 Abstract [place] [address] Halley [place] RN Social History Tobacco Use [...] on filedocumented in this encounter Care Teams Desk Maker Relationship Specialty Start Date End Date Cari Banuelos MD [address] [place] [address] [address] [place] [address] PCP - General 10/10/10 07/12/20 documented as of this encounter
--- OUTSIDE RECORDS SUMMARY | 2024-09-02 16:19 | XMS_ITS | Encounter Summary ---
Author Organization [facility] Address [facility] [place] [address] Care Team Providers Care Tariff Publishing Agent Name Role Phone Cari Banuelos MD Primary Care Provider [phone] Encounter Details Date Type Department Care Team (Latest Contact Info) Description 07/03/2015 - 07/03/2015 11:59 PM EDT Hospital Encounter Radiology Library at [facility] [place] [address] Corey Huizar MD [facility] OBSTETRICS [place] [address] Pain Discharge Disposition: Home Social History Tobacco [...] & Pelvis (07/03/2015 12:00 AM EDT) Narrative [facility] - 09/13/2016 1:19 AM EDT This exam is for storage only and is auto-finalizing. Corey Huizar MD [facility] FILM LIBRARY ORD ERABLES Performing Organization Address City/State/[facility] Co de Phone Number [place], [place] documented in this encounter Visit Diagnoses Diagnosis Pain Generalized pain documented in this encounter Care Teams Tariff Publishing Agent Relationship Specialty Start Date End Date Cari Banuelos MD [address] [place] [address] [address] [place] [address] PCP - General 10/10/10 07/12/20 documented as of this encounter
--- OUTSIDE RECORDS SUMMARY | 2024-09-02 16:19 | XMS_ITS | Encounter Summary ---
Author Organization [facility] Address [facility] [place] [address] Care Team Providers Care Unit Secy Name Role Phone Cari Banuelos MD Primary Care Provider [phone] Encounter Details Date Type Department Care Team (Latest Contact Info) Description 01/20/2016 - 01/20/2016 11:59 PM EST Hospital Encounter Radiology Library at [facility] [place], [place] [address] Corey Huizar MD [facility] OBSTETRICS [place] [address] Pain Discharge Disposition: Home Social History Tobacco [...] & Pelvis (01/20/2016 12:00 AM EST) Narrative [facility] - 09/13/2016 1:21 AM EDT This exam is for storage only and is auto-finalizing. Corey Huizar MD G FILM LIBRARY ORD ERABLES Performing Organization Address City/State/[facility] Co de Phone Number [place], [place] documented in this encounter Visit Diagnoses Diagnosis Pain Generalized pain documented in this encounter Care Teams Unit Secy Relationship Specialty Start Date End Date Cari Banuelos MD [address] [place] [address] [address] [place] [address] PCP - General 10/10/10 07/12/20 documented as of this encounter
[2024-09-02 19:26] LABS: Iron 104 ug/dL (50-170); Total Iron Binding Capacity 293 ug/dL (250-450)
[2024-09-02 19:37] LABS: Ferritin 264 ng/mL (8-252); TSH (W/Ref FT4) 0.82 uIU/mL (0.36-3.74); Vitamin B12 549 pg/mL (193-986)
[2024-09-04 10:05] LABS: Transferrin 229 mg/dL (201-352)
== END 2024-09-02 16:05 | disposition home or self-care (01) ==
LOC: LBO 16:05
PROVIDERS: PCP Nurse Practitioner Family; Visit Provider Nurse Practitioner Family
DX: R23.1 Pallor (principal); R23.2 Flushing; Z00.00 Encounter for general adult medical examination without abnormal findings; R42 Dizziness and giddiness
CPT/HCPCS: 82607; 82728; 83540; 83550; 84443; 84466; 85025

== ENCOUNTER 2024-12-19 10:49 | Outpatient (CLI) | payer MEDICAID, SELFPAY ==
--- NOTE | 2024-12-19 11:00 | DI.RAD_ITS ---
Exam(s) XR ELBOW LT COMPLETE EXAM: XR ELBOW LT COMPLETE CLINICAL HISTORY: eval pathology. TECHNIQUE: 2D digital imaging was performed of the left elbow. Three images were obtained. AP, lat eral and oblique views were obtained. COMPARISON: No exams were available for comparison FINDINGS: BONES: No acute fracture is present. No bony destructive lesion is seen. JOINTS: The elbow is normally aligned. No joint effusion is seen. SOFT TISSUE: There is soft tissue swelling over the olecranon. No soft tissue gas or radiopaque fore ign body is seen. IMPRESSION: No acute fracture or dislocation. DATA REPOSITORY: RADIATION DOSE DELIVERED:
--- NOTE | 2024-12-19 11:28 | DI.VRAD_ITS ---
PROCEDURE INFORMATION: Exam: XR Left Elbow Exam date and time: 12/19/2024 11:16 AM Age: 44 years old Clinical indication: Pain; Elbow; Left; Eval pathology TECHNIQUE: Imaging protocol: Radiologic exam of the left elbow. Views: 3 or more views. COMPARISON: No relevant prior studies available. FINDINGS: Bones/joints: No fracture visualized. No displacment of distal humeral fat pads to indicate effusion. Soft tissues: Normal. IMPRESSION: Normal elbow Dictated and Authenticated by: Landry Machuca MD. Orderin Yessenia Salcido MD
== END 2024-12-19 11:09 ==
PROVIDERS: PCP Nurse Practitioner Family; Visit Provider Nurse Practitioner Family
DX: M70.22 Olecranon bursitis, left elbow (principal)
CPT/HCPCS: 73080

== ENCOUNTER 2025-09-04 11:55 | Emergency (ER) | payer MEDICAID, SELFPAY ==
[2025-09-04 12:01] VITALS: BP 113/73; PULSE 70; RESP 10; TEMP 36.9; O2SAT 98
--- NOTE | 2025-09-04 12:29 | ED.GENADUL_ITS ---
Discharge Plan Disposition Patient Disposition: Home Condition: Good Discharge Details Clinical Impression: Migraine Primary Care Provider: Sree High ED Provider: Pinky Penn Home Meds and New Rx's Prescriptions: No Action multivit-folic pxlb-pvvq-ker C 400-50-500 mcg-mg-mg capsule 1 cap PO DAILY potassium gluconate 500 mg (83 mg) tablet 500 mg PO DAILY Emgality Pen 120 mg/mL pen injector 120 mg subcut ONCE Qty: 1 11RF Patient Comments: has not had in a month Rx Instructions: as a single dose Aimovig Autoinjector 140 mg/mL auto-injector 140 mg subcut QMONTH Qty: 1 11RF prochlorperazine maleate 5 mg tablet See Rx Instructions PO TID PRN (Reason: headache and/or nausea) Qty: 30 3RF Rx Instructions: 5-10 mg orally three times a day PRN; (DME) Fusion Multivitamin See Rx Instructions .Route .MEDSUPPLY Rx Instructions: Take 4 tablets daily. Complete trace minerals and vitamins. Complete calcium (1200 mg) and Mg (400 mg), no potassium fluoride (sodium) 1.1 % paste 1 applic dental DAILY Patient Comments: USE DIRECTED cyclobenzaprine 5 mg tablet 5 mg PO TID PRN (Reason: back pain) Qty: 60 1RF ondansetron HCl 4 mg tablet 4 mg PO Q8H PRN (Reason: nausea and vomiting) Qty: 14 0RF latanoprost 0.005 % drops 1 drp ophthalmic (eye) QPM Rx Instructions: 1 drop each eye qhs polyethylene glycol 3350 17 gram/dose powder 17 g PO DAILY Qty: 510 4RF albuterol sulfate 90 mcg/actuation HFA aerosol inhaler 2 puff inhalation Q6H PRN (Reason: shortness of breath or wheezing) Qty: 8.5 2RF omeprazole 20 mg capsule,delayed release(DR/EC) 20 mg PO DAILY Qty: 90 3RF propranolol 20 mg tablet 20 mg PO BID Qty: 180 3RF fluoxetine 20 mg capsule 60 mg PO DAILY Qty: 270 3RF Discharge Instructions Additional Instructions: Your workup today was reassuring. You received Toradol, Reglan, Benadryl, and IV fluids with good improvement of symptoms. Could you to continue taking her migraine medications as prescribed. Continue working with your neurologist or primary care provider on ways to manage your migraines. I recommend you stay well-hydrated, drinking plenty of fluids throughout the day. Get plenty of rest. Eat regular meals. Return to emergency care if develop new severe headaches, vision changes, uncontrollable vomiting, fevers associated with headache or neck stiffness, new weakness, or if you are very worried you need to be rechecked again immediately Referrals: Sree High WAXING MACHINE OPERATOR [Primary Care Provider, Medicine] Discharge Data Discharge Date/Time-TO BE ENTERED AT DEPARTURE: 09/04/25 14:12 HPI General Date/Time Provider Initiated Documentation: 09/04/25 11:58 . HPI Narrative: Leandra is a 45-year-old female with history of daily migraines who presents to the emergency department today for evaluation of severe headache that is not improving with Tylenol since yesterday. Headache began yesterday afternoon, persisted overnight, localized to the front of her head and wraps around to the sides, says that her headaches are usually frontal only. It is is accompanied by photophobia, phonophobia, blurred vision, mild nausea, and dizziness with standing; the symptoms are typical for migraines. She also reports that she has a firm lump on the top of her neck at the right side, located at the occiput. Denies associated fever, head trauma, symptoms of recent illness such as congestion/sore throat/cough, change in p.o. intake, change in bowel or bladder function, extremity weakness/numbness. PMH significant for chronic migraines, depression. Does take daily migraine prophylactic medications and antidepressants. Nu[place] history of cancers, anticoagulation, or other chronic conditions. Related Data Home Medications ?Medication ?Instructions ?Recorded ?Confirmed cyclobenzaprine 5 mg tablet 5 mg PO TID PRN back pain #60 tabs 05/01/21 09/04/25 ondansetron HCl 4 mg tablet 4 mg PO Q8H PRN nausea and 07/03/22 09/04/25 vomiting #14 tabs latanoprost 0.005 % eye drops 1 drp ophthalmic (eye) Q PM 01/14/23 09/04/25 polyethylene glycol 3350 17 17 g PO DAILY #510 grams 0 01/24/23 09/04/25 gram/dose oral powder Fusion Multivitamin 06/06/23 03/24/25 multivitamin-folic xtzu-qbtf-rwo C 1 cap PO DAILY 04/1909/04/25 400 mcg-50 mg-500 mg capsule potassium gluconate 500 mg (83 mg) 500 mg PO DAILY 09/04/25 tablet galcanezumab-gnlm 120 mg/mL 120 mg subcut ONCE #1 mL 1 11/29/23 09/04/25 subcutaneous pen injector (Emgality Pen) fluoride (sodium) 1.1 % dental 1 applic dental DAILY 0 12/19/24 09/04/25 paste albuterol sulfate 90 mcg/actuation 2 puff inhalation Q 6H PRN 02/15/25 09/04/25 aerosol inhaler shortness of breath or wheez ing #8.5 grams omeprazole 20 mg capsule,delayed 20 mg PO DAILY #90 ca ps 06/18/25 09/04/25 release erenumab-aooe 140 mg/mL 140 mg subcut QMONTH #1 mL 0 06/28/25 09/04/25 subcutaneous auto-injector (Aimovig Autoinjector) prochlorperazine maleate 5 mg See Rx Instructions PO T ID PRN 06/28/25 09/04/25 tablet headache and/or nausea #30 t abs propranolol 20 mg tablet 20 mg PO BID #180 tabs 07/0709/04/25 fluoxetine 20 mg capsule 60 mg (3 x 20 mg) PO DAILY # 270 08/04/25 09/04/25 caps Previous Rx's ?Medication ?Instructions ?Recorded cyclobenzaprine 5 mg tablet 5 mg PO TID PRN back pain #60 tabs 05/01/21 ondansetron HCl 4 mg tablet 4 mg PO Q8H PRN nausea and 07/03/22 vomiting #14 tabs polyethylene glycol 3350 17 17 g PO DAILY #510 grams 0 01/24/23 gram/dose oral powder galcanezumab-gnlm 120 mg/mL 120 mg subcut ONCE #1 mL 1 11/29/23 subcutaneous pen injector (Emgality Pen) albuterol sulfate 90 mcg/actuation 2 puff inhalation Q 6H PRN 02/15/25 aerosol inhaler shortness of breath or wheez ing #8.5 grams omeprazole 20 mg capsule,delayed 20 mg PO DAILY #90 ca ps 06/18/25 release erenumab-aooe 140 mg/mL 140 mg subcut QMONTH #1 mL 0 06/28/25 subcutaneous auto-injector (Aimovig Autoinjector) prochlorperazine maleate 5 mg See Rx Instructions PO T ID PRN 06/28/25 tablet headache and/or nausea #30 t abs propranolol 20 mg tablet 20 mg PO BID #180 tabs 07/07 fluoxetine 20 mg capsule 60 mg (3 x 20 mg) PO DAILY # 270 08/04/25 caps Allergies Allergy/AdvReac Type Severity Reaction Status Date / Time No Known Drug Allergies Allergy Other (See Verified 09/04/25 12:04 Comment) General Stated Complaint: Headache JULIANN: 3 Exam Narrative Exam Narrative: General Appearance: Normal. Vital signs: Within normal limits. HEENT: Head atraumatic, no scalp bogginess/tenderness/depressions. No raccoon eyes or Rosa sign. Occipital muscle spasm on right side, mild tenderness on palpation. Full painless range of motion to neck. Pupils reactive to light, extraocular movements intact. Moist mucous membranes Respiratory: Work of breathing, lungs clear to auscultation, no wheezing or crackles. Cardiovascular: Heart sounds normal, no murmurs. Back, Musculoskeletal: Strength 5/5 in upper and lower extremities, sensation grossly intact Neurological: Alert and oriented x3, cranial nerves II-XII intact, no motor or sensory deficits, normal gait, SHAYE's, negative Romberg test. Skin: Warm and dry, no rash. Psychiatric: Normal. Course Vital Signs Vital signs: Vital Signs Temperature 36.9 C 09/04/25 12:01 Pulse 70 09/04/25 12:01 Respiratory Rate 10 L 09/04/25 12:01 Blood Pressure 113/73 09/04/25 12:01 Pulse Oximetry 98 09/04/25 12:01 Temperature 36.9 C 09/04/25 12:01 Temperature Source Oral 09/04/25 12:01 Pulse 70 09/04/25 12:01 Respiratory Rate 10 L 09/04/25 12:01 Blood Pressure 113/73 09/04/25 12:01 Blood Pressure Position Sitting 09/04/25 12:01 Pulse Oximetry 98 09/04/25 12:01 Oxygen Delivery Method Room Air 09/04/25 12:01 Oxygen Flow Rate 0 09/04/25 12:01 Medical Decision Making Initial Assessment: Severe headache started yesterday afternoon, persisted overnight, localized to neck, different from usual migraines in its duration and intensity/lack of response to tylenol and rest. Typical migraine sx of blurred vision, light sensitivity, and nausea. No recent head trauma, fever, unusual congestion, sore throat, or cough. Differential Diagnosis: Migraine: History of migraines, symptoms consistent. Plan: Administer Toradol, Reglan, Benadryl, and IV fluids. Occipital muscle spasm: Pain upon palpation in occipital region. Plan: Monitor response to treatment. No red flags in history or presentation concerning for serious etiologies of headache such as infectious etiology/meningitis, neoplasm, ICH, mass effect requiring diagnostic imaging or blood work at this time. No concerning VS derangements or physical exam findings concerning for dehydration or electrolyte imbalance. ED Course: Administered Toradol, Reglan, Benadryl, and IV fluids. Collected urine sample to rule out . Leandra had full improvement of symptoms with medications, feels significantly better to go home. She was able to take p.o. flory perri before discharge home. Clinical Impression: Migraine, Occipital muscle spasm. Follow-Up: Follow up with primary care physician for ongoing migraine management. Reviewed discharge instructions with patient, including importance of follow-up with PCP for migraine management, and monitoring of lump on neck consistent with occipital muscle spasm, as ultrasound may be indicated on outpatient basis if it does not improve to rule out other etiology. Patient consented to the use of KRISTEN Quality:SDOH Health Related Social Needs: Health related social needs food insecurity house/econ circumstance lonely/isolated PFSH All Active Problems (Updated 09/04/25 @ 14:10 by Pinky Santiago) Migraine (Chronic) Status migrainosus (Acute) Olecranon bursitis, left elbow (Acute) Migraine headache without aura (Acute) Encounter for screening colonoscopy (Acute) Elevated liver enzymes (Acute) Nystagmus (Acute) Pelvic mass (Acute) on U/S-right 3x3x3 cm 08/2023 Adnexal cyst (Acute) Abdominal pain (Acute) Left breast lump (Acute) Ganglion cyst (Acute) Chronic headache (Acute) Vitamin D deficiency (Acute) Facial tic (Acute) Irritable bowel syndrome (Chronic) OAB (overactive bladder) (Acute) Kidney stone (Chronic) Migraine (Chronic) On Propranolol Open-angle glaucoma (Acute) followed by dr.Francis Boyer/[place], [place] Tx:prostaglandin drops Mood disorder (Acute) disabled, with depression and anxiety Depression (Acute 12/02/17) with anxiety Chronic pelvic pain in female (Acute 08/10/15) persists despite hysterectomy 2014. 2016 will begin Depo Provera q3mo. Back pain (Acute 01/03/16) Medical History Obstructive sleep apnea Obesity gastric bypass in Dec 2022 Chronic headaches as per pt Plantar fasciitis, right as per pt Endometriosis multiple foci in culdesac noted at time of laparoscopy 10/21/14. 11/26/14 Rx with DepoProvera. Mental disorder on disability. Menorrhagia Started on OCPs 07/2013 Surgical History History of colonoscopy (~05/2024) Gastric [place] status for [place] [facility] [place]/10/23 Laparoscopic Sa[place]l en Y Gastric Bypass Ligation of fallopian tube Trigger Finger release 08/2013 R hand Open Carpal Tunnel release 08/2013 - recurrent symptoms - OCTR 08/01/20 - R hand. 10/2013 L hand. Vaginal hysterectomy (05/12/15) [facility]. Nl pathology. Diagnostic Laproscopy (10/21/14) Bilateral laparoscopic salpingectomy with ablation of endometriosis implants in the cul-de-sac. Cholecystectomy Appendectomy Family History Mother Depression Emphysema lung Alcohol abuse in the past Father Depression Heart disease Alcohol abuse in the past Brother No problems noted. Maternal Grandfather No problems noted. Paternal Grandfather Parkinson's disease Maternal Grandmother , age 75? No problems noted. Paternal Grandmother , age 80 Heart disease Stroke Son No problems noted. Son Depression Son Heart disease MURMURS Daughter Depression Maternal Uncle Diabetes Social History Smoking/Tobacco Use Status: Never Tobacco: How many years used: 0 Quit status: not considering quitting Second Hand Exposure: Yes Smoking risk assessment performed?: Yes Alcohol Intake: never Drug use: Never Substance use type: does not use Counseling given: No Caregiver/Support person: Yes Household members: significant other and children Housing: apartment Communication Needs: None Do you need help understanding health information?: Never Pets and animals: Yes Pets and animals: cat(s) and dog(s) Sexually active: Yes Do you think of yourself as: straight/heterosexual Current gender identity: female What is your relationship status?: living with partner How often do you talk on the phone with friends or family?: twice per week How often do you get together with friends or relatives?: once per week How often do you attend baptist or mosque services?: 1-3 times per year Do you belong to any clubs or organized social groups?: no Panel score (0-1 are the most socially isolated patients): 2 What type of physical activity do you participate in: walking Duration: 15-30 minutes/day Frequency: 3-4 times per week Janneth/Muslim: Zoroastrian Special janneth needs: No Seatbelt use: always Helmet use: Yes Helmet use: always Drive intox or ride w/intox water truck driver: No Do you feel safe at home: Yes Do you feel safe in your relationship?: Yes Additional Social history: unable to assess privately Female Reproductive History Menstrual control method: permanent sterilization History History 4 Para 4 Hx # Term Pregnancies Multiple births Hx # Pregnancies Ectopic pregnancies AB induced Hx Number of Living Children AB spontaneous
[2025-09-04] MEDS: Ketorolac 15 MG/ML VIAL IVP (12:55)
[2025-09-04] MEDS: Normal Saline 1,000 ML 1000 ML IV (12:55)
[2025-09-04] MEDS: diphenhydrAMINE 50 MG/ML VIAL 25 MG IVP (12:56)
[2025-09-04] MEDS: Metoclopramide 10 MG/2 ML VIAL IVP (12:57)
== END 2025-09-04 14:12 | disposition home or self-care (01) ==
PROVIDERS: Emergency Provider Nurse Practitioner Family; PCP Nurse Practitioner Family
DX: G43.909 Migraine, unspecified, not intractable, without status migrainosus (principal)
CPT/HCPCS: 99284 ×2; 96374; 96375; 96361; J1200; J1885; J2765

== ENCOUNTER 2025-11-09 15:34 | Emergency (ER) | payer MEDICAID, SELFPAY ==
[2025-11-09 15:37] VITALS: BP 129/85; PULSE 67; RESP 20; TEMP 36.7; O2SAT 99
[2025-11-09 15:40] VITALS: BP 129/85; PULSE 67; RESP 20; TEMP 36.7; O2SAT 99
--- NOTE | 2025-11-09 15:45 | DI.CT_ITS ---
Exam(s) CT ABDOMEN PELVIS WO EXAM: CT ABDOMEN PELVIS WO CLINICAL HISTORY: Left flank pain. TECHNIQUE: Imaging Protocol: Axial computed tomography images with coronal and sagittal reformatted images were created and reviewed. COMPARISON: CT CT ABDOMEN PELVIS WO from 06/28/[address] ABDOMEN PELVIS W from 03/13/2023 FINDINGS: ABDOMEN: Lung Bases: Normal where visualized. Liver: Normal density. No measurable mass. Gallbladder and biliary tract: Status post cholecystectomy. There is no significant biliary ductal dilatation. Pancreas: Normal density, no abnormal calcifications or inflammatory process. Spleen: Normal. Kidneys: Normal size, contour and axis.There is a 2 mm nonobstructing stone in the lower pole of the right kidney. No masses seen. Adrenal glands: No mass is seen. Lymph nodes: Within normal limits. Abdominal Aorta: Abdominal portion non-dilated. PELVIS: Bladder:Symmetric distention, no gross wall thickening. Bowel: The patient has had prior gastric bypass surgery. There is no evidence of bowel obstruction or bowel wall thickening. There is no evidence of appendicitis. Peritoneal cavity: No ascites, collection or mesenteric inflammatory response. No free air. Reproductive organs: Unremarkable as visualized. Bones: Within normal limits. Soft Tissues: Within normal limits. IMPRESSION: 1. Right nephrolithiasis. 2. There is no evidence of left nephrolithiasis or hydronephrosis. 3. There is no acute abdominal or pelvic process. RADIATION DOSE DELIVERED: 359.67mGy.cm Total DLP DATA REPOSITORY: All CT scans at this facility are submitted to the National Radiology Data Registry (NRDR) Dose Index Registry (DIR) with the [employer] (ACR). RADIATION OPTIMIZATION: All CT scans at this facility use at least one of these dose optimization techniques: automated exposure control; mA and/or kV adjustment per patient size (includes targeted exams where dose is matched to clinical indication); or iterative reconstruction.
--- NOTE | 2025-11-09 15:55 | W.ED.GENAD ---
Discharge Plan Disposition Patient Disposition: .Default Condition: Stable Discharge Details Chief Complaint: Urinary Clinical Impression: Left sided abdominal pain Primary Care Provider: Sree High ED Provider: Yocasta Mckeon Home Meds and New Rx's Prescriptions: Continued multivit-folic zcbo-[id number]-[id number] C 400-50-500 mcg-mg-mg capsule 1 cap PO DAILY potassium gluconate 500 mg (83 mg) tablet 500 mg PO DAILY Aimovig Autoinjector 140 mg/mL auto-injector 140 mg subcut QMONTH Qty: 1 11RF prochlorperazine maleate 5 mg tablet See Rx Instructions PO TID PRN (Reason: headache and/or nausea) Qty: 30 3RF Rx Instructions: 5-10 mg orally three times a day PRN; (DME) Fusion Multivitamin See Rx Instructions .Route .MEDSUPPLY Rx Instructions: Take 4 tablets daily. Complete trace minerals and vitamins. Complete calcium (1200 mg) and Mg (400 mg), no potassium fluoride (sodium) 1.1 % paste 1 applic dental DAILY Patient Comments: USE DIRECTED cyclobenzaprine 5 mg tablet 5 mg PO TID PRN (Reason: back pain) Qty: 60 1RF ondansetron HCl 4 mg tablet 4 mg PO Q8H PRN (Reason: nausea and vomiting) Qty: 14 0RF latanoprost 0.005 % drops 1 drp ophthalmic (eye) QPM Rx Instructions: 1 drop each eye qhs polyethylene glycol 3350 17 gram/dose powder 17 g PO DAILY Qty: 510 4RF albuterol sulfate 90 mcg/actuation HFA aerosol inhaler 2 puff inhalation Q6H PRN (Reason: shortness of breath or wheezing) Qty: 8.5 2RF omeprazole 20 mg capsule,delayed release(DR/EC) 20 mg PO DAILY Qty: 90 3RF propranolol 20 mg tablet 20 mg PO BID Qty: 180 3RF fluoxetine 20 mg capsule 60 mg PO DAILY Qty: 270 3RF Discharge Instructions Instructions: Abdominal Pain, Adult ED Additional Instructions: CT shows you do have a small kidney stone in your right kidney which is nonobstructing at this time. No kidney stones were seen on the left side. No evidence of pancreatitis or inflammation of your pancreas or bowel obstruction. You do have some gas buildup noted in your bowels this could be causing your pain. Follow up with primary care provider in 3-5 days. Return to ED sooner if any worsening or concerns. Please take Tylenol or Ibuprofen with food every 4-6 hours as needed for pain and swelling. Stand Alone Forms: Portal Information Referrals: Sree High [employer] [Primary Care Provider, Medicine] - 5 days Referral Note: ER follow-up, call for an appointment Clinical Impression: Left sided abdominal pain Discharge Data Discharge Date/Time-TO BE ENTERED AT DEPARTURE: 11/09/25 17:29 HPI General Mode of arrival: ambulatory. Date/Time Provider Initiated Documentation: 11/09/25 15:43. Limitations to Documentation: no limitations. Information obtained by: patient, RN notes reviewed and old records reviewed. HPI Narrative: 45-year-old female presents to the ER with a chief complaint of left upper quadrant abdominal pain and left flank pain for the last week. She reports that today after seeing her PCP the pain increased. Associated with nausea and diarrhea. She does have a history of a hysterectomy, tubal ligation, appendectomy and cholecystectomy. Denies any fever or chills. Does have a history of kidney stone. Related Data Home Medications ?Medication ?Instructions ?Recorded ?Confirmed cyclobenzaprine 5 mg tablet 5 mg PO TID PRN back pain #60 tabs 05/01/21 11/09/25 ondansetron HCl 4 mg tablet 4 mg PO Q8H PRN nausea and 07/03/22 11/09/25 vomiting #14 tabs latanoprost 0.005 % eye drops 1 drp ophthalmic (eye) QPM 01/14/23 11/09/25 polyethylene glycol 3350 17 17 g PO DAILY #510 grams 01/24/23 11/09/25 gram/dose oral powder Fusion Multivitamin 06/06/23 11/09/25 multivitamin-folic asou-iccz-cem C 1 cap PO DAILY 05/12/24 11/09/25 400 mcg-50 mg-500 mg capsule potassium gluconate 500 mg (83 mg) 500 mg PO DAILY 05/12/24 11/09/25 tablet fluoride (sodium) 1.1 % dental 1 applic dental DAILY 12/19/24 11/09/25 paste albuterol sulfate 90 mcg/actuation 2 puff inhalation Q6H PRN 02/15/25 11/09/25 aerosol inhaler shortness of breath or wheezing #8.5 grams omeprazole 20 mg capsule,delayed 20 mg PO DAILY #90 caps 06/18/25 11/09/25 release erenumab-aooe 140 mg/mL 140 mg subcut QMONTH #1 mL 06/28/25 11/09/25 subcutaneous auto-injector (Aimovig Autoinjector) prochlorperazine maleate 5 mg See Rx Instructions PO TID PRN 06/28/25 11/09/25 tablet headache and/or nausea #30 tabs propranolol 20 mg tablet 20 mg PO BID #180 tabs 07/07/25 11/09/25 fluoxetine 20 mg capsule 60 mg (3 x 20 mg) PO DAILY #270 08/04/25 11/09/25 caps Previous Rx's ?Medication ?Instructions ?Recorded cyclobenzaprine 5 mg tablet 5 mg PO TID PRN back pain #60 tabs 05/01/21 ondansetron HCl 4 mg tablet 4 mg PO Q8H PRN nausea and 07/03/22 vomiting #14 tabs polyethylene glycol 3350 17 17 g PO DAILY #510 grams 01/24/23 gram/dose oral powder albuterol sulfate 90 mcg/actuation 2 puff inhalation Q6H PRN 02/15/25 aerosol inhaler shortness of breath or wheezing #8.5 grams omeprazole 20 mg capsule,delayed 20 mg PO DAILY #90 caps 06/18/25 release erenumab-aooe 140 mg/mL 140 mg subcut QMONTH #1 mL 06/28/25 subcutaneous auto-injector (Aimovig Autoinjector) prochlorperazine maleate 5 mg See Rx Instructions PO TID PRN 06/28/25 tablet headache and/or nausea #30 tabs propranolol 20 mg tablet 20 mg PO BID #180 tabs 07/07/25 fluoxetine 20 mg capsule 60 mg (3 x 20 mg) PO DAILY #270 08/04/25 caps Allergies Allergy/AdvReac Type Severity Reaction Status Date / Time No Known Drug Allergies Allergy Other (See Verified 11/09/25 15:41 Comment) General Stated Complaint: Urinary JULIANN: 3 Review of Systems All systems reviewed & are unremarkable except as noted in HPI and below Gastrointestinal Gastrointestinal: Reports abdominal pain, Reports diarrhea and Reports nausea Genitourinary Genitourinary: Reports flank pain Exam Narrative Exam Narrative: Constitutional: Alert and oriented x3. Appears stated age. Normal body habitus. Head: Normocephalic, no trauma. Eyes: Pupils PERRL, Red reflex noted, EOM's intact. Eyelids symmetrical without lesions, discharge, or swelling. ENT: Bilateral TM's WNL, External ear normal to inspection, no mastoid TTP, swelling, or erythema, Nasal turbinates WNL, no nasal discharge. Normal dentition, Posterior pharynx WNL, no exudate. Chest: RRR, Normal S1, S2, distal pulses intact. Resp: Lungs clear to auscultation bilaterally, no wheezes, rales, or rhonchi. Abdomen: Soft, non-distended, hypoactive bowel sounds all 4 quads. Tender with palpation to left upper quadrant and left flank. Musculoskeletal: Normal gait, Moves all 4 extremities without difficulty. Skin: No suspicious rashes or lesions. Capillary refill less than 2 sec. Neurologic: Cranial nerves II-XII intact. Alert and oriented x 3. Motor: No deficits noted. Sensory: Intact bilaterally all 4 extremities. Hematologic/Lymphatic: No ecchymosis, no lymphadenopathy. Course Vital Signs Vital signs: Vital Signs Temperature 36.7 C 11/09/25 15:37 Pulse 67 11/09/25 15:37 Respiratory Rate 20 11/09/25 15:37 Blood Pressure 129/85 11/09/25 15:37 Pulse Oximetry 99 11/09/25 15:37 Temperature 36.7 C 11/09/25 15:40 Pulse 67 11/09/25 15:40 Respiratory Rate 20 11/09/25 15:40 Blood Pressure 129/85 11/09/25 15:40 Blood Pressure Position Sitting 11/09/25 15:40 Pulse Oximetry 99 11/09/25 15:40 Oxygen Delivery Method Room Air 11/09/25 15:40 Oxygen Flow Rate 0 11/09/25 15:40 Medical Decision Making 45-year-old female presents to the ER with a chief complaint of left upper quadrant abdominal pain and left flank pain for the last week. She reports that today after seeing her PCP the pain increased. Associated with nausea and diarrhea. She does have a history of a hysterectomy, tubal ligation, appendectomy and cholecystectomy. Denies any fever or chills. Does have a history of kidney stone. CT abdomen pelvis without contrast ordered, CBC CMP lipase magnesium and urinalysis. Will give Zofran and morphine. Differential diagnose includes not limited to pancreatitis, kidney stone, UTI, pyelonephritis, diverticulitis, gastroenteritis. CTA shows no evidence of kidney stones on the left side there is a small 2 mm nonobstructing stone in the lower pole of the right kidney which is not where patient's pain is. On patient reevaluation she does appear to be feeling much better. I did discuss CT results with her she verbalized understanding. No evidence of urinary tract infection on the urine, labs are largely unremarkable. Will give Carafate prior to discharge and discharged home with follow-up with PCP. This text was generated using [employer] system, please disregard any oddities of phrase or misspellings. Imaging Data Radiologic Study: Imaging: CT Scan Radiologist's impression: ABDOMEN: Lung Bases: Normal where visualized. Liver: Normal density. No measurable mass. Gallbladder and biliary tract: Status post cholecystectomy. There is no significant biliary ductal dilatation. Pancreas: Normal density, no abnormal calcifications or inflammatory process. Spleen: Normal. Kidneys: Normal size, contour and axis.There is a 2 mm nonobstructing stone in the lower pole of the right kidney. No masses seen. Adrenal glands: No mass is seen. Lymph nodes: Within normal limits. Abdominal Aorta: Abdominal portion non-dilated. PELVIS: Bladder:Symmetric distention, no gross wall thickening. Bowel: The patient has had prior gastric bypass surgery. There is no evidence of bowel obstruction or bowel wall thickening. There is no evidence of appendicitis. Peritoneal cavity: No ascites, collection or mesenteric inflammatory response. No free air. Reproductive organs: Unremarkable as visualized. Bones: Within normal limits. Soft Tissues: Within normal limits. IMPRESSION: 1. Right nephrolithiasis. 2. There is no evidence of left nephrolithiasis or hydronephrosis. 3. There is no acute abdominal or pelvic process. Lab Data Lab results reviewed: Yes I reviewed the patient's lab results. Labs: 11/09/25 17:06 Urine - Clean Catch Urine Culture - Pending Laboratory Tests Range/Units 11/09/25 11/09/25 15:45 16:08 WBC (4.4-10.8) 10^3/uL 5.09 RBC (3.93-5.22) 10^6/uL 3.74 L Hgb (11.2-15.7) g/dL 11.4 Hct (36.0-46.0) % 32.2 L MCV (80-95) fL 86 MCH (27.0-33.0) pg 30.5 MCHC (32.0-36.0) % 35.4 RDW (11.7-14.6) % 12.4 Plt Count (130-400) 10^3/uL 244 MPV (8.0-11.0) fL 9.2 Immature Gran % % 0.2 Neutrophils % % 49.5 Lymphocytes % % 37.5 Monocytes % % 5.9 Eosinophils % % 6.3 Basophils % % 0.6 Nucleated RBC % (0.0-0.3) % 0.0 Absolute Neutrophils (1.2-6.7) 10^3/uL 2.52 Absolute Lymphocytes (1.2-3.4) 10^3/uL 1.91 Absolute Monocytes (0.1-0.8) 10^3/uL 0.30 Absolute Eosinophils (0.0-0.7) 10^3/uL 0.32 Absolute Basophils (0.0-0.2) 10^3/uL 0.03 Sodium (136-145) mmol/L 140 Potassium (3.5-5.1) mmol/L 3.2 L Chloride (98-107) mmol/L 104 Carbon Dioxide (20.0-31.0) mmol/L 28.3 Anion Gap (3-11) mmol/L 7.7 BUN (9-23) mg/dL 16 Creatinine (0.55-1.02) mg/dL 0.65 Est GFR (CKD-EPI 2020) (mL/min/1.73m2) 97.42 Glucose (74-106) mg/dL 82 Calcium (8.3-10.6) mg/dL 9.1 Magnesium (1.6-2.6) mg/dL 2.0 Total Bilirubin (0.2-1.2) mg/dL 0.7 AST (<34) U/L 33 ALT (10-49) U/L 41 Alkaline Phosphatase (46-116) U/L 97 Total Protein (5.7-8.2) g/dL 6.8 Albumin (3.2-5.0) g/dL 4.3 Lipase (<53) U/L 49 Urine Color (Yellow) Yellow Urine Clarity (Clear) Clear Urine pH (5-8) 6.5 Ur Specific [place] (1.005-1.025) 1.015 Urine Protein (Neg-Trace) mg/dL Negative Urine Ketones (Negative) mg/dL Negative Urine Blood (Negative) Negative Urine Nitrite (Negative) Negative Urine Bilirubin (Negative) Negative Urine Urobilinogen (Up to 0.2) mg/dL 0.2 Ur Leukocyte Esterase (Negative) Negative Urine Glucose (Negative) mg/dL Negative Quality:SDOH Health Related Social Needs: Health related social needs food insecurity house/econ circumstance lonely/isolated PFSH All Active Problems Left sided abdominal pain (Acute) Left lower quadrant pain (Acute) Status migrainosus (Acute) Olecranon bursitis, left elbow (Acute) Migraine headache without aura (Acute) Encounter for screening colonoscopy (Acute) Elevated liver enzymes (Acute) Nystagmus (Acute) Pelvic mass (Acute) on U/S-right 3x3x3 cm 08/2023 Adnexal cyst (Acute) Abdominal pain (Acute) Left breast lump (Acute) Ganglion cyst (Acute) Chronic headache (Acute) Vitamin D deficiency (Acute) Facial tic (Acute) Irritable bowel syndrome (Chronic) OAB (overactive bladder) (Acute) Kidney stone (Chronic) Migraine (Chronic) On Propranolol Open-angle glaucoma (Acute) followed by dr.Francis Boyer/[place], [place] Tx:prostaglandin drops Mood disorder (Acute) disabled, with depression and anxiety Depression (Acute 12/02/17) with anxiety Chronic pelvic pain in female (Acute 08/10/15) persists despite hysterectomy 2014. 2016 will begin Depo Provera q3mo. Back pain (Acute 01/03/16) Medical History Obstructive sleep apnea Obesity gastric bypass in Dec 2022 Chronic headaches as per pt Plantar fasciitis, right as per pt Endometriosis multiple foci in culdesac noted at time of laparoscopy 10/21/14. 11/26/14 Rx with DepoProvera. Mental disorder on disability. Menorrhagia Started on OCPs 07/2013 Surgical History History of colonoscopy (~05/2024) Gastric bypass status for obesity [facility] [place] 01/10/23 Laparoscopic Sa[place]l en Y Gastric Bypass Ligation of fallopian tube Trigger Finger release 08/2013 R hand Open Carpal Tunnel release 08/2013 - recurrent symptoms - OCTR 08/01/20 - R hand. 10/2013 L hand. Vaginal hysterectomy (05/12/15) [facility]. Nl pathology. Diagnostic Laproscopy (10/21/14) Bilateral laparoscopic salpingectomy with ablation of endometriosis implants in the cul-de-sac. Cholecystectomy Appendectomy Family History Mother Depression Emphysema lung Alcohol abuse in the past Father Depression Heart disease Alcohol abuse in the past Brother No problems noted. Maternal Grandfather No problems noted. Paternal Grandfather Parkinson's disease Maternal Grandmother , age 75? No problems noted. Paternal Grandmother , age 80 Heart disease Stroke Son No problems noted. Son Depression Son Heart disease MURMURS Daughter Depression Maternal Uncle Diabetes Social History Smoking/Tobacco Use Status: Never Tobacco: How many years used: 0 Quit status: not considering quitting Second Hand Exposure: Yes Smoking risk assessment performed?: Yes Alcohol Intake: never Drug use: Never Substance use type: does not use Counseling given: No Caregiver/Support person: Yes Household members: significant other and children Housing: apartment Communication Needs: None Do you need help understanding health information?: Never Pets and animals: Yes Pets and animals: cat(s) and dog(s) Sexually active: Yes Do you think of yourself as: straight/heterosexual Current gender identity: female What is your relationship status?: living with partner How often do you talk on the phone with friends or family?: twice per week How often do you get together with friends or relatives?: once per week How often do you attend pentecostal or religion services?: 1-3 times per year Do you belong to any clubs or organized social groups?: no Panel score (0-1 are the most socially isolated patients): 2 What type of physical activity do you participate in: walking Duration: 15-30 minutes/day Frequency: 3-4 times per week Janneth/Mandaen: Zoroastrianism Special janneth needs: No Seatbelt use: always Helmet use: Yes Helmet use: always Drive intox or ride w/intox customer service driver: No Do you feel safe at home: Yes Do you feel safe in your relationship?: Yes Additional Social history: unable to assess privately Female Reproductive History Menstrual control method: permanent sterilization History History 4 Para 4 Hx # Term Pregnancies Multiple births Hx # Pregnancies Ectopic pregnancies AB induced Hx Number of Living Children AB spontaneous
[2025-11-09 15:59] LABS: Glucose Negative (Negative)
[2025-11-09] MEDS: MORPHine 10 MG/ML VIAL 2 MG IVP (16:17)
[2025-11-09] MEDS: Ondansetron 4 MG/2 ML VIAL IVP (16:17)
[2025-11-09] MEDS: Normal Saline 500 ML IV (16:17)
[2025-11-09 16:19] LABS: Abs Immature Grans 0.01 10^3/uL (0.0-0.06); HCT 32.2 % (36.0-46.0); HGB 11.4 g/dL (11.2-15.7); Immature Grans % 0.2 %; MCH 30.5 pg (27.0-33.0); MCHC 35.4 % (32.0-36.0); MCV 86 fL (80-95); MPV 9.2 fL (8.0-11.0); Platelet Count 244 10^3/uL (130-400); RBC 3.74 10^6/uL (3.93-5.22); RDW 12.4 % (11.7-14.6); RDW-SD 39.3 fL; WBC 5.09 10^3/uL (4.4-10.8)
[2025-11-09 16:41] LABS: Lipase 49 U/L (<53)
[2025-11-09 16:42] LABS: Magnesium 2.0 mg/dL (1.6-2.6)
[2025-11-09 17:00] LABS: ALT 41 U/L (10-49); AST 33 U/L (<34); Albumin 4.3 g/dL (3.2-5.0); Alkaline Phosphatase 97 U/L (46-116); Anion Gap 7.7 mmol/L (3-11); BUN 16 mg/dL (9-23); Bilirubin, Total 0.7 mg/dL (0.2-1.2); CO2 28.3 mmol/L (20.0-31.0); Calcium 9.1 mg/dL (8.3-10.6); Chloride 104 mmol/L (98-107); Glucose 82 mg/dL (74-106); Potassium 3.2 mmol/L (3.5-5.1); Sodium 140 mmol/L (136-145); Total Protein 6.8 g/dL (5.7-8.2)
[2025-11-09 17:24] VITALS: BP 125/67; PULSE 63; TEMP 36.7; O2SAT 100
== END 2025-11-09 17:29 | disposition home or self-care (01) ==
PROVIDERS: Emergency Provider Registered Nurse Emergency; PCP Nurse Practitioner Family
DX: R10.A2 Flank pain, left side (principal)
CPT/HCPCS: 99284 ×2; 36415; 96374; 96375; 80053; 81513; 83690; 87481; 87491; 87591; 87661; 96361; 74176; 81003; 83735; 85025; 87086; J2270; J2405

== ENCOUNTER 2025-11-09 18:05 | Outpatient (REF) | payer MEDICAID, SELFPAY ==
[2025-11-09 17:55] LABS: Abs Immature Grans 0.01 10^3/uL (0.0-0.06); HCT 33.0 % (36.0-46.0); HGB 11.3 g/dL (11.2-15.7); Immature Grans % 0.2 %; MCH 30.1 pg (27.0-33.0); MCHC 34.2 % (32.0-36.0); MCV 88 fL (80-95); MPV 10.0 fL (8.0-11.0); Platelet Count 269 10^3/uL (130-400); RBC 3.75 10^6/uL (3.93-5.22); RDW 12.6 % (11.7-14.6); RDW-SD 40.7 fL; WBC 4.97 10^3/uL (4.4-10.8)
[2025-11-09 18:06] LABS: ALT 43 U/L (10-49); AST 33 U/L (<34); Albumin 4.2 g/dL (3.2-5.0); Alkaline Phosphatase 99 U/L (46-116); Anion Gap 7.3 mmol/L (3-11); BUN 18 mg/dL (9-23); Bilirubin, Total 0.5 mg/dL (0.2-1.2); CO2 29.7 mmol/L (20.0-31.0); Calcium 9.0 mg/dL (8.3-10.6); Chloride 105 mmol/L (98-107); Glucose 79 mg/dL (74-106); Potassium 3.7 mmol/L (3.5-5.1); Sodium 142 mmol/L (136-145); Total Protein 6.6 g/dL (5.7-8.2)
[2025-11-11 12:29] LABS: Bacterial Vaginosis (BV) Negative (Negative); Candida glabrata Negative (Negative); Candida species group Negative (Negative); Chlamydia Result Negative (Negative); GC Result Negative (Negative)
== END 2025-11-09 18:06 | disposition home or self-care (01) ==
LOC: LBN 18:05
PROVIDERS: PCP Nurse Practitioner Family; Visit Provider Nurse Practitioner Family
DX: R10.32 Left lower quadrant pain (principal)
CPT/HCPCS: 80053; 81513; 87481; 87491; 87591; 87661; 85025; 87086

== ENCOUNTER → 2025-11-10 00:04 | Outpatient (CLI) | payer MEDICAID, SELFPAY ==
--- NOTE | 2025-11-10 09:00 | DI.CT_ITS ---
Exam(s) CT ABDOMEN PELVIS W EXAM: CT ABDOMEN PELVIS W CLINICAL HISTORY: R10.32 LLQ abd Worsening pain. TECHNIQUE: Imaging Protocol: Axial computed tomography images with coronal and sagittal reformatted images were created and reviewed CONTRAST MATERIAL: Intravenous: Omnipaque-350 yes. Oral contrast was also administered for bowel opacification.Cc Oral: None COMPARISON: CT CT ABDOMEN PELVIS WO from 11/09/2025 FINDINGS: VISUALIZED LUNG BASES: No nodules nor pleural effusions evident. ABDOMEN: There is evidence of prior gastric bariatric surgery. There is no extravasation of administered oral contrast into the hughes excluded stomach to suggest abnormal fistulous communication. The Saúl limb is not dilated. There does not appear to be evidence of more distal small bowel obstruction. Indeed, the oral contrast has reached the rectum by the time of scanning image acquisition. LIVER: There are no focal hepatic lesions evident. No dilated intrahepatic ducts. GALLBLADDER/BILIARY: The gallbladder is again noted be surgically absent. CBD is not dilated. PANCREAS: No evidence of pancreatic mass nor dilatation of the pancreatic duct. SPLEEN: Spleen is not enlarged. No obvious intrasplenic lesions. Splenic and portal veins are patent. ADRENALS: There are no significant adrenal masses. KIDNEYS:There is a small benign cyst in the lateral cortex of the right kidney which measures 1 cm. This does not require further imaging workup. The previously described punctate calculus noted in the inferior pole of the right kidney seen on recent noninfused CT scan of 11/09/2025 is not seen. This, however, may be related to the injection of IV contrast hiding a punctate calcification. There does not appear to be dilatation of the right ureter. Also no calculi in the urinary bladder.. In opposite-left kidney appears unremarkable. No solid renal masses.. ABDOMINAL AORTA: Abdominal aorta is not enlarged. LYMPH NODES:There is no retroperitoneal nor paraaortic adenopathy. ABDOMINAL WALL: No evidence of significant anterior abdominal wall nor inguinal hernia. GI: There is no evidence of bowel obstruction, free air, nor abscess. PELVIS: GI: The appendix is not well seen. There is no evidence of appendicitis.No evidence of sigmoid diverticulitis. LYMPH NODES: There is no intrapelvic nor inguinal adenopathy. REPRODUCTIVE: Uterus is small or surgically absent. No abnormal adnexal findings. No free fluid in the pelvis. URINARY BLADDER: No calculi nor obvious masses evident OSSEOUS: No fractures and no significant osseous lesions. IMPRESSION: 1. Compared to the prior noninfused CT performed yesterday the previously described punctate calculus in the right kidney is not seen on today's study, probably/possible because this study was done with intravenous contrast injection. There is no hydronephrosis nor hydroureter. 2. Previous bariatric surgery and cholecystectomy. RADIATION DOSE DELIVERED: 326.42mGy.cm Total DLP DATA REPOSITORY: All CT scans at this facility are submitted to the National Radiology Data Registry (NRDR) Dose Index Registry (DIR) with the [employer] (ACR). RADIATION OPTIMIZATION: All CT scans at this facility use at least one of these dose optimization techniques: automated exposure control; mA and/or kV adjustment per patient size (includes targeted exams where dose is matched to clinical indication); or iterative reconstruction.
[2025-11-10] MEDS: Normal Saline - Diluent 50 ML VIAL IJ (11:22)
[2025-11-10] MEDS: Omnipaque 350 MG/ML 100 ML BTL IJ (11:22)
[2025-11-10] MEDS: Barium Sulfate 2% W/V-Creamy Vanilla Smoothie 450 ML BTL PO (11:39)
[2025-11-10] MEDS: Barium Sulfate 2% W/V-Berry Smoothie 450 ML BTL PO (11:39)
== END ==
LOC: DI 00:07
PROVIDERS: PCP Nurse Practitioner Family; Visit Provider Nurse Practitioner Family
DX: R10.32 Left lower quadrant pain (principal)
CPT/HCPCS: 74177; J3490

== ENCOUNTER 2025-11-17 15:56 | Outpatient (REF) | payer MEDICAID, SELFPAY ==
[2025-11-20 14:56] LABS: Bacterial Vaginosis (BV) Negative (Negative); Candida glabrata Negative (Negative); Candida species group Positive (Negative); Chlamydia Result Negative (Negative); GC Result Negative (Negative)
[2025-11-23 11:53] LABS: HSV 1 DNA Result Positive (Negative); HSV 2 DNA Result Negative (Negative)
== END 2025-11-17 15:57 | disposition home or self-care (01) ==
LOC: LBN 15:56
PROVIDERS: Nurse Practitioner Family; PCP Nurse Practitioner Family; Visit Provider Physician Assistant
DX: R10.32 Left lower quadrant pain (principal); Z11.3 Encounter for screening for infections with a predominantly sexual mode of transmission; L98.9 Disorder of the skin and subcutaneous tissue, unspecified; N39.0 Urinary tract infection, site not specified
CPT/HCPCS: 81513; 87481; 87491; 87529; 87591; 87661; 86695; 86696; 87070; 87086; 87205